=== PATIENT | male | born 1945 | race Caucasian/White ===

== ENCOUNTER 2017-12-05 11:45 | Outpatient (CLI) | payer MEDICARE, OTHER ==
[~2017-12-05] VITALS: Ht 172.7 cm; Wt 90.7 kg
[2017-12-05] MEDS ORDERED: LOVA40TA2 PO (12:00)
[2017-12-05] MEDS ORDERED: ASPI-586 PO (12:00)
[2017-12-05] MEDS ORDERED: ALLO300T2 PO (12:00)
[2017-12-05] MEDS ORDERED: LEVO112T55 PO (12:00)
[2017-12-05] MEDS ORDERED: HYDR25TA4 PO (12:00)
[2017-12-05] MEDS ORDERED: CARV6.252 PO (12:00)
== END 2017-12-05 12:04 ==
LOC: PREOP 11:45
PROVIDERS: ATTEND Specialist
DX: Z01.818 Encounter for other preprocedural examination (principal)

== ENCOUNTER 2017-12-06 09:16 | Day surgery (SDC) | payer MEDICARE, OTHER ==
[~2017-12-06] VITALS: Ht 172.7 cm; Wt 90.7 kg
[~2017-12-06 09:16] MED LIST: ALLO300T2 PO; ASPI-586 PO; CARV6.252 PO; HYDR25TA4 PO; LEVO112T55 PO; LOVA40TA2 PO
[2017-12-06 09:25] VITALS: BP 166/91
[2017-12-06] MEDS ORDERED: EPINEPHrine INJECTION 1 MG/ML AMP INJ ONE (09:30)
[2017-12-06] MEDS ORDERED: POVIDONE (BETADINE) OPHTH SOLN 5% 30 ML OP ONE (09:30)
[2017-12-06] MEDS ORDERED: VANCOMYCIN/BSS (COMPOUNDED) 10 MG/ML SYR OP ONE (09:30)
[2017-12-06] MEDS ORDERED: LIDOCAINE PF 1% 2 ML AMP IR PRN (09:30)
[2017-12-06] MEDS ORDERED: TIMOLOL MALEATE 0.5% 5 ML (TIMOPTIC) BTL OU PRN (09:30)
[2017-12-06] MEDS: TETRACAINE 0.5% OPHTH SOLN 4 ML BTL (SINGLE DOSE ONLY) OU PRN ×4 (09:34→09:43)
[2017-12-06] MEDS: CYCLOPENTOLATE 1% (CYCLOGYL) 2 ML DROPS OP SCH ×3 (09:37→09:43)
[2017-12-06] MEDS: PHENYLEPHRINE 10% OPHTH (NEO-SYN) 5 ML BTL OU SCH ×3 (09:37→09:43)
[2017-12-06] MEDS ORDERED: MIDAZOLAM 2 MG/2 ML (VERSED) VIAL ONE (09:56)
[2017-12-06 10:28] VITALS: BP 147/91
--- NOTE | 2017-12-06 12:10 | Anesthesia-General Post-Op ---
MAC Patient Condition Mental Status/LOC: Same as Preop Cardiovascular: Satisfactory Nausea/Vomiting: Absent Respiratory: Satisfactory Pain: Controlled Complications: Absent Post Op Complications Complications None Follow Up Care/Instructions Patient Instructions None needed. Anesthesiology Discharge Order Discharge Order Patient is doing well, no complaints, stable vital signs, no apparent adverse anesthesia problems. No complications reported per nursing. ERIN NAJERA CRNA Dec 06, 2017 12:10
--- NOTE | 2017-12-17 04:00 | OPERATIVE REPORT ---
DATE OF SERVICE: 12/06/2017 PREOPERATIVE DIAGNOSIS: Combined cataract, left eye. POSTOPERATIVE DIAGNOSIS: Combined cataract, left eye. PROCEDURE: Phacoemulsification with posterior chamber intraocular lens, left eye. ANESTHESIA: Topical with IV sedation. COMPLICATIONS: No complications. DESCRIPTION OF PROCEDURE: An informed consent was obtained with the patient placed on his chart. His left pupil was dilated and topical anesthetic was placed as well. He was taken to the operating room and placed in a supine position on the operating table. He was sedated by the anesthesia provider. He was prepped and draped in the usual sterile manner. Attention was directed to the patient's left eye. A wire lid speculum was placed. The operating microscope was moved into position. A paracentesis was made at the left hand position. Preservative-free lidocaine was injected into the anterior chamber followed by viscoelastic. A clear corneal incision was then made in the temporal position with a 2.75 mm keratome. A capsulorrhexis was then made. Hydrodissection was carried out with balanced salt saline. The nucleus was then removed by phacoemulsification. The cortex was aspirated. The posterior capsule was polished and the anterior chamber was refilled with viscoelastic. An Saitsh model [id number] 19.5 diopter lens was placed into the capsular bag. The residual viscoelastic was aspirated. The anterior chamber was inflated with balanced salt saline and 1 mg of vancomycin was injected. The wounds were checked and found to be watertight. The wire lid speculum and surgical drapes were removed. The patient tolerated the procedure well. Job ID: [id number] DocumentID: [id number] Dictated Date: 12/16/2017 17:59:37 Ornamental Iron Worker Helper Date: 12/17/2017 03:59:35 Dictated By: RANDELL DOBBINS MD
== END 2017-12-06 10:28 | disposition home or self-care (01) ==
LOC: SDC 09:16
PROVIDERS: ATTEND Specialist
DX: H25.812 Combined forms of age-related cataract, left eye (principal); I10 Essential (primary) hypertension; Z95.1 Presence of aortocoronary bypass graft; Z79.82 Long term (current) use of aspirin; Z79.899 Other long term (current) drug therapy

== ENCOUNTER 2018-07-15 15:03 | Inpatient (IN) | payer MEDICARE, OTHER ==
[2018-07-15] VITALS (8 sets, daily range): BP systolic 123–166; BP diastolic 79–98
[~2018-07-15] VITALS: Ht 175.3 cm; Wt 95.3 kg
--- OUTSIDE RECORDS SUMMARY | 2018-07-15 15:07 | XMS REPORT | Continuity of Care Document ---
Author Author [facility] Address Unknown Phone Unavailable Allergies There is no data. Medications There is no data. Problems There is no data. Procedures There is no data. Results There is no data. Encounters ACCT No. Visit Date/Time Discharge Status Pt. Type Provider Facility Loc./Unit Complaint [id number] 12/07/2008 13:04:00 12/07/2008 23:59:59 CLS Outpatient CESAR ANDERSON DDS
[2018-07-15 15:41] LABS: BASOPHILS % (AUTO) 0 % (0-10); EOSINOPHILS # (AUTO) 0.2 10^3/uL (0.0-0.3); EOSINOPHILS % (AUTO) 2 % (0-10); HEMATOCRIT 50 % (40-54); HEMOGLOBIN 15.8 G/DL (13.3-17.7); LYMPHOCYTES # (AUTO) 1.2 X 10^3 (1.0-4.0); LYMPHOCYTES % (AUTO) 14 % (12-44); MEAN CORPUSCULAR HEMOGLOBIN 27 PG (25-34); MEAN CORPUSCULAR HGB CONC 32 G/DL (32-36); MEAN CORPUSCULAR VOLUME 85 FL (80-99); MEAN PLATELET VOLUME 11.5 FL (7.4-10.4); MONOCYTES # (AUTO) 0.6 X 10^3 (0.0-1.0); MONOCYTES % (AUTO) 7 % (0-12); NEUTROPHILS # (AUTO) 6.1 X 10^3 (1.8-7.8); NEUTROPHILS % (AUTO) 76 % (42-75); PLATELET COUNT 196 10^3/uL (130-400); RED BLOOD COUNT 5.83 10^6/uL (4.35-5.85); RED CELL DISTRIBUTION WIDTH 16.6 % (10.0-14.5)
[2018-07-15 15:52] LABS: BILIRUBIN,TOTAL 0.7 MG/DL (0.1-1.0); CALCIUM 10.2 MG/DL (8.5-10.1); CREATININE SERUM 2.1 MG/DL (0.60-1.30); POTASSIUM 3.4 MMOL/L (3.6-5.0); TOTAL PROTEIN 7.4 GM/DL (6.4-8.2)
[2018-07-15 16:00] LABS: MYOGLOBIN SERUM 149.1 NG/ML (10.0-92.0)
--- NOTE | 2018-07-15 16:06 | ED Upper Extremity ---
General Chief Complaint: General Problems/Pain Stated Complaint: R ARM NUMBNESS Nursing Triage Note: pt presents to er with complaint of right arm numbness that started at 1330. pt states it has lessened at arrivall. only other complaint is heart burn thats been going on for a while Nursing Sepsis Screen: No Definite Risk Source: patient, spouse Exam Limitations: no limitations History of Present Illness Date Seen by Provider: Jul 15, 2018 Time Seen by Provider: 15:28 Initial Comments Patient presents to ER by private conveyance with chief complaint that he had about an hours worth of numbness in his right arm from shoulder down pins and needle sensation. He had full movement of his arm. He said he was sitting at his desk typing on the computer when it started happening. What concerned him is that for the past week and a half he's been having some heartburn and it's an intermittent occasional. He been using omeprazole but has not made a difference. He's also had a CABG done a couple years ago and so anytime he had a sensation like this or chest pain and has concerned him he might be having a heart attack. His numbness was not made worse with any exertion. It has gone away spontaneously to this point he has no numbness in the ER. He has not injured his neck recently nor does he have a history of neck pain. He does have some chronic low back pain. He is not having any slurred speech or facial asymmetry per his . No difficulty swallowing walking incontinence of bowel or bladder. He describes the acid reflux symptoms as burning in the middle of his chest lasting for about an hour or so intermittently over the last 10 days. Usually goes away spontaneously. Has not been lightened up by using omeprazole. Allergies and Home Medications Allergies Coded Allergies: No Known Drug Allergies (Unverified , 12/05/17) Home Medications Allopurinol 300 Mg Tablet, 300 MG PO DAILY, (Reported) Aspirin 81 Mg Tablet.dr, 81 MG PO BID, (Reported) Carvedilol 6.25 Mg Tablet, 6.25 MG PO BID, (Reported) Hydrochlorothiazide 25 Mg Tablet, 25 MG PO DAILY, (Reported) Levothyroxine Sodium 112 Mcg Tablet, 112 MCG PO DAILY, (Reported) Lovastatin 40 Mg Tablet, 80 MG PO DAILY, (Reported) TAKE 2 (40MG) TABS Patient Home Medication List Home Medication List Reviewed: Yes Review of Systems Constitutional: No chills, No diaphoresis, No fever, No malaise EENTM: No ear discharge, No ear pain Respiratory: No cough, No short of breath Cardiovascular: No chest pain, No edema Gastrointestinal: No abdominal pain, No constipation, No diarrhea Past Nejrcca-Chanhk-Gsqhdo Hx Patient Social History Alcohol Use: Denies Use Recreational Drug Use: No Smoking Status: Former Smoker Recent Foreign Travel: No Contact w/Someone Who Travel: No Recent Infectious Disease Expo: No Recent Hopitalizations: No Immunizations Up To Date Tetanus Booster (TDap): Unknown PED Vaccines UTD: Yes Seasonal Allergies Seasonal Allergies: No Past Medical History Surgeries: Yes (hernia, ) CABG, Orthopedic Respiratory: No Cardiac: Yes Coronary Artery Disease, Hypertension Neurological: No Genitourinary: No Gastrointestinal: No Musculoskeletal: No Endocrine: Yes Hypothyroidsim HEENT: No Cataract Cancer: No Psychosocial: No Integumentary: No Physical Exam Vital Signs Vital Signs - First Documented 07/15/18 15:04 Pulse 55 Resp 12 B/P (MAP) 176/95 (122) Pulse Ox 95 O2 Delivery Room Air Capillary Refill : Less Than 3 Seconds Height, Weight, BMI Height: 5'9.00" Weight: 200lbs. 0.0oz. 90.818471mh; BMI Method:Stated General Appearance: WD/WN, no apparent distress HEENT: PERRL/EOMI, normal ENT inspection, pharynx normal Neck: non-tender, full range of motion, supple, normal inspection Cardiovascular: normal peripheral pulses, regular rate, rhythm, no edema Respiratory: chest non-tender, lungs clear, normal breath sounds, no respiratory distress, no accessory muscle use Gastrointestinal: normal bowel sounds, non tender, soft Shoulder: normal inspection, non-tender, no evidence of injury, normal ROM Elbow/Forearm: normal inspection, non-tender, no evidence of injury, normal ROM , Right Neurologic/Tendon: normal sensation, normal motor functions, normal tendon functions, responds to pain, no evidence tendon injury Neurologic/Psychiatric: window assembler II-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 nml as tested, no motor/sensory deficits, alert, normal mood/affect, oriented x 3 Skin: normal color, warm/dry Progress/Results/Core Measures Results/Orders Lab Results Laboratory Tests Test 07/15/18 15:15 Range/Units White Blood Count 8.0 4.3-11.0 10^3/uL Red Blood Count 5.83 4.35-5.85 10^6/uL Hemoglobin 15.8 13.3-17.7 G/DL Hematocrit 50 40-54 % Mean Corpuscular Volume 85 80-99 FL Mean Corpuscular Hemoglobin 27 25-34 PG Mean Corpuscular Hemoglobin Concent 32 32-36 G/DL Red Cell Distribution Width 16.6 H 10.0-14.5 % Platelet Count 196 130-400 10^3/uL Mean Platelet Volume 11.5 H 7.4-10.4 FL Neutrophils (%) (Auto) 76 H 42-75 % Lymphocytes (%) (Auto) 14 12-44 % Monocytes (%) (Auto) 7 0-12 % Eosinophils (%) (Auto) 2 0-10 % Basophils (%) (Auto) 0 0-10 % Neutrophils # (Auto) 6.1 1.8-7.8 X 10^3 Lymphocytes # (Auto) 1.2 1.0-4.0 X 10^3 Monocytes # (Auto) 0.6 0.0-1.0 X 10^3 Eosinophils # (Auto) 0.2 0.0-0.3 10^3/uL Basophils # (Auto) 0.0 0.0-0.1 10^3/uL Sodium Level 141 135-145 MMOL/L Potassium Level 3.4 L 3.6-5.0 MMOL/L Chloride Level 102 98-107 MMOL/L Carbon Dioxide Level 28 21-32 MMOL/L Anion Gap 11 5-14 MMOL/L Blood Urea Nitrogen 33 H 7-18 MG/DL Creatinine 2.10 H 0.60-1.30 MG/DL Estimat Glomerular Filtration Rate 31 BUN/Creatinine Ratio 16 Glucose Level 161 H 70-105 MG/DL Calcium Level 10.2 H 8.5-10.1 MG/DL Corrected Calcium 10.2 H 8.5-10.1 MG/DL Total Bilirubin 0.7 0.1-1.0 MG/DL Aspartate Amino Transf (AST/SGOT) 41 H 5-34 U/L Alanine Aminotransferase (ALT/SGPT) 38 0-55 U/L Alkaline Phosphatase 118 40-136 U/L Myoglobin 149.1 H 10.0-92.0 NG/ML Troponin I 1.962 *H <0.028 NG/ML C-Reactive Protein High Sensitivity 0.64 H 0.00-0.50 MG/DL Total Protein 7.4 6.4-8.2 GM/DL Albumin 4.0 3.2-4.5 GM/DL My Orders Orders - FAZAL LARA Ct Head/Cervical Spine Wo (07/15/18 15:34) Cbc With Automated Diff (07/15/18 15:34) Comprehensive Metabolic Panel (07/15/18 15:34) Hs C Reactive Protein (07/15/18 15:34) Troponin I (07/15/18 15:34) Myoglobin Serum (07/15/18 15:34) Chest Pa/Lat (2 View) (07/15/18 15:34) Shoulder, Right, 3 Views (07/15/18 15:34) Continuous Ekg Monitoring (07/15/18 15:42) Ekg Tracing (07/15/18 15:42) Aspirin Chewable Tablet (Baby Aspirin Ch (07/15/18 16:21) Saline Lock/Iv-Start (07/15/18 16:30) Ns Iv 1000 Ml (Sodium Chloride 0.9%) (07/15/18 16:30) Ua Culture If Indicated (07/15/18 16:30) Ns Iv 1000 Ml (Sodium Chloride 0.9%) (07/15/18 16:29) Enoxaparin Injection (Lovenox Injection) (07/15/18 17:00) Vital Signs/I&O 07/15/18 15:04 Pulse 55 Resp 12 B/P (MAP) 176/95 (122) Pulse Ox 95 O2 Delivery Room Air Blood Pressure Mean: 122 Progress Progress Note : Time: 16:16 Progress Note Brain changes. We will get an EKG and troponin looking for cardiac since she's been having these chest burning sensation for the past 10 days. Initial ECG Impression Date: Jul 15, 2018 Initial ECG Impression Time: 16:10 Initial ECG Rate: 55 Initial ECG Rhythm: Normal Sinus Initial ECG Intervals: Normal Initial ECG Impression: Normal, Nonspecific Changes Comment No ST-T wave elevation depression Diagnostic Imaging Diagonstic Imaging: Xray Plain Films/CT/US/NM/MRI: chest Comments [facility] [place], [place] NAME: ALAN CHURCH [facility] REC#: [id number] PT STATUS: REG ER : 1945 PHYSICIAN: FAZAL LARA MD ADMIT DATE: 07/15/18/ER Draft Date of Exam:07/15/18 CHEST PA/LAT (2 VIEW) INDICATION: Right arm numbness starting at 1330 hours. Also complains of heartburn that has been "going on for a while". PA and lateral chest obtained at 04:17 p.m. Heart is normal in size. Mediastinal silhouette is unremarkable. The patient has had previous sternotomy. The lungs show no focal infiltrate, pneumothorax, or pleural fluid. There is an old right clavicle fracture. IMPRESSION: Postoperative changes. No focal infiltrate, pneumothorax, or pleural fluid. Old right clavicle fracture noted. Dictated on workstation # [id number] Dict: 07/15/18 1603 Trans: 07/15/18 1614 [facility] [id number] Interpreted by: ADRY LIPSCOMB MD Electronically signed by: Reviewed: Reviewed by Vt Diagonstic Imaging: Xray Plain Films/CT/US/NM/MRI: other (shoulder) Comments [facility] [place] NAME: ALAN CHURCH [facility] REC#: [id number] PT STATUS: REG ER : 1945 PHYSICIAN: FAZAL LARA MD ADMIT DATE: 07/15/18/ER Draft Date of Exam:07/15/18 SHOULDER, RIGHT, 3 VIEWS EXAMINATION: Right shoulder. INDICATION: Shoulder pain. Three views were obtained. There are no prior studies available for comparison. FINDINGS: There is deformity of the distal third of the clavicle. Most likely, this is a sequela of prior trauma. There is no fracture or acute bony abnormality appreciated. There is mild degenerative disease of the glenohumeral joint and moderate degenerative disease of the acromioclavicular joint. The soft tissues are unremarkable. IMPRESSION: There is evidence of prior trauma to the right clavicle, but there is no sign of an acute bony abnormality. Dictated on workstation # [id number] Dict: 07/15/18 1600 Trans: 07/15/18 1604 [id number] Interpreted by: ELADIA RODRIGUEZ MD Electronically signed by: Reviewed: Reviewed by Me Diagonstic Imaging: CT (noncontrast) Plain Films/CT/US/NM/MRI: c-spine, head Comments NAME: ALAN CHURCH [facility] REC#: [id number] PT STATUS: REG ER : 1945 PHYSICIAN: FAZAL LARA MD ADMIT DATE: 07/15/18/ER Draft Date of Exam:07/15/18 CT HEAD/CERVICAL SPINE WO PROCEDURE: CT head and CT cervical spine without contrast. TECHNIQUE: Multiple contiguous axial images were obtained through the brain and cervical spine without the use of intravenous contrast. Sagittal and coronal reformations through the cervical spine were then performed. INDICATION: Right arm numbness. COMPARISON: No prior studies available for comparison. CT head: FINDINGS: Ventricles are normal in size. There is an area of low density in the right frontal lobe. This has the appearance of an area of encephalomalacia, perhaps from prior infarct. Underlying lesion cannot be entirely excluded and MRI would be useful if not already performed. No sulcal effacement or midline shift is seen. No acute intra-axial or extra-axial hemorrhage is seen. Cisterns are patent. Visualized paranasal sinuses are clear. IMPRESSION: 1. No acute intracranial process detected. There is a probable region of encephalomalacia in the right frontal lobe, perhaps from prior infarct. Edema from underlying lesion cannot be entirely excluded and an MRI would be useful for further evaluation if not already performed at another facility. CT cervical spine: FINDINGS: Curvature and alignment is within normal limits. There is degenerative disc disease at the C5-C6 and C6-C7 levels with disc space narrowing and marginal spurring. No fractures are seen. Prevertebral tissues are within normal limits. Odontoid is intact. IMPRESSION: Cervical spondylosis. No acute bony abnormality is detected. Dictated on workstation # [id number] Dict: 07/15/18 1612 Trans: 07/15/18 1618 [id number] Interpreted by: YANIRA HUYNH MD Electronically signed by: Reviewed: Reviewed by Me Departure Communication (Admissions) Time/Spoke to Admitting Phy: 16:50 Discussed case lab imaging findings and she agrees to that the patient in the hospital admitted for a NEIL/N STEMI. She would likes to clarify anticoagulation. Time/Spoke to Consulting Phy: 16:28 Discussed case lab imaging findings he recommends we add Norvasc aspirin 81 mg now and daily and his home meds and then treat the NEIL and he will follow along. Lovenox 90 mg every 24 hours. norvasc now and daily Impression Primary Impression: NSTEMI (non-ST elevated myocardial infarction) Additional Impression: NEIL (acute kidney injury) Disposition: 01 HOME, SELF-CARE Condition: Stable Admissions Decision to Admit Reason: Admit from ER (General) Decision to Admit/Date: Jul 15, 2018 Time/Decision to Admit Time: 16:54 Departure-Patient Inst. Referrals: KATHIA NAIR MD (PCP) Primary Care Physician Copy Copies To 1: KATHIA NAIR MD, TITUS J Jul 15, 2018 16:06
--- NOTE | 2018-07-15 16:14 | Diagnostic Imaging Report ---
INDICATION: Right arm numbness starting at 1330 hours. Also complains of heartburn that has been "going on for a while". PA and lateral chest obtained at 04:17 p.m. Heart is normal in size. Mediastinal silhouette is unremarkable. The patient has had previous sternotomy. The lungs show no focal infiltrate, pneumothorax, or pleural fluid. There is an old right clavicle fracture. IMPRESSION: Postoperative changes. No focal infiltrate, pneumothorax, or pleural fluid. Old right clavicle fracture noted. Dictated by: Dictated on workstation # [id number]
--- NOTE | 2018-07-15 16:18 | Diagnostic Imaging Report ---
PROCEDURE: CT head and CT cervical spine without contrast. TECHNIQUE: Multiple contiguous axial images were obtained through the brain and cervical spine without the use of intravenous contrast. Sagittal and coronal reformations through the cervical spine were then performed. INDICATION: Right arm numbness. COMPARISON: No prior studies available for comparison. CT head: FINDINGS: Ventricles are normal in size. There is an area of low density in the right frontal lobe. This has the appearance of an area of encephalomalacia, perhaps from prior infarct. Underlying lesion cannot be entirely excluded and MRI would be useful if not already performed. No sulcal effacement or midline shift is seen. No acute intra-axial or extra-axial hemorrhage is seen. Cisterns are patent. Visualized paranasal sinuses are clear. IMPRESSION: 1. No acute intracranial process detected. There is a probable region of encephalomalacia in the right frontal lobe, perhaps from prior infarct. Edema from underlying lesion cannot be entirely excluded and an MRI would be useful for further evaluation if not already performed at another facility. CT cervical spine: FINDINGS: Curvature and alignment is within normal limits. There is degenerative disc disease at the C5-C6 and C6-C7 levels with disc space narrowing and marginal spurring. No fractures are seen. Prevertebral tissues are within normal limits. Odontoid is intact. IMPRESSION: Cervical spondylosis. No acute bony abnormality is detected. Dictated by: Dictated on workstation # [id number]
[2018-07-15] MEDS ORDERED: ASPIRIN 81 MG CHEW (CHILDREN'S ASA) ONE (16:21)
[2018-07-15] MEDS ORDERED: NS IV 1000 ML 1,000 ML ONE (16:29)
[2018-07-15] MEDS ORDERED: NS IV 1000 ML 1,000 ML IV SCH (16:30)
[2018-07-15] MEDS ORDERED: ENOXAPARIN 100 MG/1 ML (LOVENOX) SYR SC ONE (17:00)
[2018-07-15] MEDS ORDERED: amLODIPine 10 MG (NORVASC) TAB PO ONE (17:15)
--- NOTE | 2018-07-15 17:18 | History & Physical-Hospitalist ---
History of Present Illness HPI/Chief Complaint Pt is a 73yoCM with a PMH of CAD s/p CABG x5 who presented to the ER due to right arm tingling. He states his symptoms started in the last few weeks with chest burning. He attempted taking a PPI without any improvement. He denies any alleviating or aggravating factors to the chest burning. Today around 1300 he developed right arm tingling and numbness with no pain down his right arm starting at his shoulder. He states it is resolved now. He presented to the ER for evaluation and was found to have an NSTEMI with a troponin elevated at 1.9. 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 He denies any SOB, nausea, vomiting, jaw pain. Source: patient Date Seen 07/15/18 Time Seen by a Provider: 17:15 Attending Physician Shama Dill John M MD Referring Physician Date of Admission Home Medications & Allergies Home Medications Reviewed patient Home Medication Reconciliation performed by pharmacy medication reconciliations instrumentation and controls technician and/or nursing. Patients Allergies have been reviewed. Allergies Allergies Coded Allergies No Known Drug Allergies (Unverified12/05/17) Past Vzylehy-Itvxna-Hhupcc Hx Past Med/Social Hx: Reviewed Nursing Past Med/Soc Hx Patient Social History Alcohol Use: Denies Use Recreational Drug Use: No Smoking Status: Former Smoker Recent Foreign Travel: No Contact w/other who traveled: No Recent Hopitalizations: No Recent Infectious Disease Expo: No Immunizations Up To Date Tetanus Booster (TDap): Unknown Pediatric: Yes Seasonal Allergies Seasonal Allergies: No Past Medical History Surgeries: Abdominal (hernia), CABG (5 vessel), Orthopedic Cardiac: Coronary Artery Disease, Hypertension Endocrine: Hypothyroidsim HEENT: Cataract Family History Reviewed Nursing Family Hx Heart Disease, Cancer (breast- mother) Review of Systems Constitutional: No chills, No fever EENTM: No blurred vision, No double vision, No nose congestion, No throat pain Respiratory: No cough, No dyspnea on exertion, No short of breath Cardiovascular: see HPI Gastrointestinal: No abdominal pain, No constipation, No diarrhea, No nausea, No vomiting Genitourinary: No dysuria, No frequency Musculoskeletal: No joint pain, No muscle pain Skin: No lesions, No rash Psychiatric/Neurological: Tingling (per HPI) Physical Exam Physical Exam Vital Signs Vital Signs - First Documented 07/15/18 07/15/18 15:04 20:00 Temp 97.5 Pulse 55 Resp 12 B/P (MAP) 176/95 (122) Pulse Ox 95 O2 Delivery Room Air Capillary Refill : Less Than 3 Seconds Height, Weight, BMI Height: 5'9.00" Weight: 200lbs. 0.0oz. 90.187484oa; BMI Method:Stated General Appearance: No Apparent Distress, WD/WN HEENT: PERRL/EOMI, Moist Mucous Membranes; No Scleral Icterus (L), No Scleral Icterus (R) Neck: Non Tender, Supple Respiratory: Lungs Clear, No Respiratory Distress Cardiovascular: Regular Rate, Rhythm, No JVD, No Murmur Gastrointestinal: Normal Bowel Sounds, Non Tender, Soft Extremity: Normal Capillary Refill, No Calf Tenderness Neurologic/Psychiatric: Alert, Oriented x3, Normal Mood/Affect Skin: Normal Color, Warm/Dry Results Results/Procedures Labs Laboratory Tests 07/15/18 15:15 07/16/18 03:50 Patient resulted labs reviewed. Imaging: Reviewed Imaging Report Assessment/Plan Admission Diagnosis NSTEMI Admission Status: Inpatient Order (span 2 midnights) Reason for Inpatient Admission: NSTEMI with history of CAD and CABG Diagnosis/Problems Diagnosis/Problems (1) NSTEMI (non-ST elevated myocardial infarction) Status: Acute Assessment & Plan: Troponin elevated at 1.9 Cardiology consulted, appreciate recs- Lovenox ordered Continue home BB and ASA Echo ordered (2) NEIL (acute kidney injury) Status: Acute Assessment & Plan: Patient unsure of history of kidney disease IVF Trend (3) Essential (primary) hypertension Status: Acute Assessment & Plan: BP elevated on arrival Amlodipine ordered in the ER trend SHAMA DILL MD Jul 15, 2018 17:18
--- OUTSIDE RECORDS SUMMARY | 2018-07-15 17:23 | XMS REPORT | Continuity of Care Document ---
Author Author [facility] Address Unknown Phone Unavailable Allergies There is no data. Medications There is no data. Problems There is no data. Procedures There is no data. Results There is no data. Encounters ACCT No. Visit Date/Time Discharge Status Pt. Type Provider Facility Loc./Unit Complaint [id number] 12/07/2008 13:04:00 12/07/2008 23:59:59 CLS Outpatient CESAR ANDERSON DDS
[2018-07-15 17:47] LABS: BILIRUBIN,URINE NEGATIVE (NEGATIVE); CLARITY,URINE VERY CLOUDY; COLOR,URINE YELLOW; GLUCOSE, URINE (UA) NEGATIVE (NEGATIVE); KETONES,URINE NEGATIVE (NEGATIVE); LEUKOCYTE ESTERASE ,URINE 2+ (NEGATIVE); NITRITE,URINE POSITIVE (NEGATIVE); PH,URINE 6 (5-9); PROTEIN,URINE 2+ (NEGATIVE); UROBILINOGEN,URINE NORMAL (NORMAL)
[2018-07-15 18:04] LABS: BACTERIA,URINE LARGE /HPF; RBC,URINE 0-2 /HPF; URINE OTHER FEW SPERM /HPF; WBC,URINE 25-50 /HPF
[2018-07-15] MEDS ORDERED: HYDROcodone/APAP 5 MG/325 MG (LORTAB) TAB PO PRN (19:00)
[2018-07-15] MEDS ORDERED: ONDANSETRON 4 MG/2 ML (SDV) Z0FRAN IV PRN (19:00)
[2018-07-15] MEDS ORDERED: ACETAMINOPHEN 500 MG TAB (TYLENOL) PO PRN (19:00)
[2018-07-15] MEDS ORDERED: morphine INJ 4 MG/ML 1 ML (VIAL/SYRINGE) IV PRN (19:00)
[2018-07-15] MEDS ORDERED: NITROGLYCERIN 0.4 MG SL TABS BTL 25'S SL PRN (19:00)
[2018-07-15] MEDS ORDERED: CATHETER FLUSH 10 ML SYR IV PRN (19:00)
[2018-07-15] MEDS ORDERED: ANTACID SUSP 30 ML UDC (MYLANTA) PO PRN (19:00)
[2018-07-15] MEDS: ATORVASTATIN 40 MG (LIPITOR) TABLET PO SCH (20:09)
[2018-07-15] MEDS: CARVEDILOL 6.25 MG (COREG) TAB PO SCH (20:09)
[2018-07-15] MEDS: 1/2 NS W/KCL 20 MEQ/L 1,000 ML IV SCH (20:09)
[2018-07-16] VITALS (7 sets, daily range): BP systolic 106–128; BP diastolic 72–84
[2018-07-16] MEDS: 1/2 NS W/KCL 20 MEQ/L 1,000 ML IV SCH ×6 (01:21→20:32)
[2018-07-16 04:16] LABS: BASOPHILS % (AUTO) 0 % (0-10); EOSINOPHILS # (AUTO) 0.3 10^3/uL (0.0-0.3); EOSINOPHILS % (AUTO) 3 % (0-10); HEMATOCRIT 44 % (40-54); HEMOGLOBIN 14.4 G/DL (13.3-17.7); LYMPHOCYTES # (AUTO) 2.2 X 10^3 (1.0-4.0); LYMPHOCYTES % (AUTO) 25 % (12-44); MEAN CORPUSCULAR HEMOGLOBIN 28 PG (25-34); MEAN CORPUSCULAR HGB CONC 32 G/DL (32-36); MEAN CORPUSCULAR VOLUME 85 FL (80-99); MEAN PLATELET VOLUME 11.8 FL (7.4-10.4); MONOCYTES # (AUTO) 0.8 X 10^3 (0.0-1.0); MONOCYTES % (AUTO) 9 % (0-12); NEUTROPHILS # (AUTO) 5.4 X 10^3 (1.8-7.8); NEUTROPHILS % (AUTO) 62 % (42-75); PLATELET COUNT 196 10^3/uL (130-400); RED BLOOD COUNT 5.24 10^6/uL (4.35-5.85); RED CELL DISTRIBUTION WIDTH 16.4 % (10.0-14.5); WHITE BLOOD COUNT 8.7 10^3/uL (4.3-11.0)
[2018-07-16 04:41] LABS: CREATININE SERUM 1.64 MG/DL (0.60-1.30); MAGNESIUM 1.7 MG/DL (1.8-2.4); POTASSIUM 3.6 MMOL/L (3.6-5.0)
[2018-07-16] MEDS: LEVOTHYROXINE 112 MCG (LEVOTHROID) TAB PO SCH (06:20)
--- NOTE | 2018-07-16 08:39 | Consultation-Cardiology ---
HPI-Cardiology Cardiology Consultation: Date of Consultation 07/16/18 Time Seen by a Provider: 08:15 Date of Admission 07-16-18 Attending Physician Rakel Dill MD Admitting Physician Nicko Smith MD Consulting Physician Juan Alaniz MD HPI: Chief Complaint: NSTEMI Mr. Church is a 73 year old male admitted to ICU 2 from the ED. He reports yesterday he began to have right arm numbness and tingling that persisted throughout the evening prompting him to come to the ED. He reports he has been having a lot of heartburn over the last month which has not been relieved with antacids or PPI's. He denies any CP or right arm discomfort at this time. He denies any c/o dyspnea, palpitations, syncope, near syncope or LE edema. Review of Systems-Cardiology Review of Systems Constitutional: No chills, No fever, No malaise Eyes: No vision change Ears/Nose/Throat: No epistaxis, No recent hearing loss Respiratory: As described under HPI Cardiovascular: As described under HPI Gastrointestinal: No constipation, No diarrhea, No nausea, No vomiting; other ( heartburn) Genitourinary: No dysuria, No hematuria Musculoskeletal: no symptoms reported Skin: No rash, No ulcerations Psychiatric/Neurological: No seizure, No focal weakness Hematologic: No bleeding abnormalities HXI-Emnhur-Fhaglo Hx Patient Social History Alcohol Use: Denies Use Recreational Drug Use: No Smoking Status: Former Smoker Recent Foreign Travel: No Recent Infectious Disease Expo: No Hospitalization with Isolation: Denies Immunizations Up To Date Tetanus Booster (TDap): Unknown Date of Pneumonia Vaccine: Aug 29, 2017 Date of Influenza Vaccine: Mar 01, 2018 Past Medical History PMH As described under Assessment. Allergies and Home Medications Allergies Coded Allergies: No Known Drug Allergies (Unverified , 12/05/17) Home Medications Allopurinol 300 Mg Tablet, 300 MG PO DAILY, (Reported) Aspirin 81 Mg Tablet.dr, 81 MG PO BID, (Reported) Carvedilol 6.25 Mg Tablet, 6.25 MG PO BID, (Reported) Hydrochlorothiazide 25 Mg Tablet, 25 MG PO DAILY, (Reported) Levothyroxine Sodium 112 Mcg Tablet, 112 MCG PO DAILY, (Reported) Lovastatin 40 Mg Tablet, 80 MG PO HS, (Reported) TAKE 2 (40MG) TABS Multivitamin 1 Each Tablet, 1 TAB PO DAILY, (Reported) [place] 3 Polyunsat Fatty Acids 1,000 Mg Cap, 1,000 MG PO BID, (Reported) Physical Exam-Cardiology Physical Exam Vital Signs/I&O 07/16/18 07/16/18 07/17/18 07/17/18 21:00 21:47 00:00 00:00 Temp 98.2 Pulse 63 Resp 18 B/P (MAP) 122/76 (91) Pulse Ox 93 93 94 O2 Delivery Room Air Room Air Room Air 07/17/18 07/17/18 07/17/18 07/17/18 00:00 01:00 03:57 04:00 Temp 98.5 Pulse 57 60 Resp 16 B/P (MAP) 127/76 (93) Pulse Ox 93 96 O2 Delivery Room Air Room Air 07/17/18 04:00 Pulse 61 Resp 10 B/P (MAP) 129/81 (97) Pulse Ox 96 O2 Delivery Room Air 07/17/18 00:00 Intake Total 1100 ml Output Total 200 ml Balance 900 ml Capillary Refill : Less Than 3 Seconds Constitutional: AAO x 3, well-developed, well-nourished HEENT: PERRL, hearing is well preserved Neck: No carotid bruit; carotid pulses are 2 + bilaterally Respiratory: No accessory muscle use, No respiratory distress; chest expansion is symmetric, chest is bilaterally symmetric, lungs clear to auscultation Cardiovascular: regular rate-rhythm; No JVD; S1 and S2 Gastrointestinal: No tender; soft, round, audible bowel sounds Rectal: deferred Extremities: no lower extremity edema bilateral Neurologic/Psychiatric: grossly intact, power is 5/5 both on sides Skin: No rash, No ulcerations Data Review Labs Laboratory Tests 07/17/18 03:30: White Blood Count 8.1, Red Blood Count 5.15, Hemoglobin 14.2, Hematocrit 43, Mean Corpuscular Volume 84, Mean Corpuscular Hemoglobin 28, Mean Corpuscular Hemoglobin Concent 33, Red Cell Distribution Width 16.4H, Platelet Count 179, Mean Platelet Volume 11.8H, Neutrophils (%) (Auto) 69, Lymphocytes (%) (Auto) 18 , Monocytes (%) (Auto) 10, Eosinophils (%) (Auto) 3, Basophils (%) (Auto) 0, Neutrophils # (Auto) 5.6, Lymphocytes # (Auto) 1.4, Monocytes # (Auto) 0.8, Eosinophils # (Auto) 0.2, Basophils # (Auto) 0.0, Sodium Level 141, Potassium Level 3.6, Chloride Level 109H, Carbon Dioxide Level 23, Anion Gap 9, Blood Urea Nitrogen 24H, Creatinine 1.78H, Estimat Glomerular Filtration Rate 38, BUN/ Creatinine Ratio 13, Glucose Level 79, Calcium Level 9.0, Magnesium Level 1.5L Microbiology 07/15/18 Urine Culture - Preliminary, Resulted Culture In Progress Radiology NAME: ALAN CHURCH [facility] REC#: [id number] PT STATUS: REG ER : 1945 PHYSICIAN: FAZAL LARA MD ADMIT DATE: 07/15/18/ER Signed Date of Exam: 07/15/18 CHEST PA/LAT (2 VIEW) INDICATION: Right arm numbness starting at 1330 hours. Also complains of heartburn that has been "going on for a while". PA and lateral chest obtained at 04:17 p.m. Heart is normal in size. Mediastinal silhouette is unremarkable. The patient has had previous sternotomy. The lungs show no focal infiltrate, pneumothorax, or pleural fluid. There is an old right clavicle fracture. IMPRESSION: Postoperative changes. No focal infiltrate, pneumothorax, or pleural fluid. Old right clavicle fracture noted. Dictated by: Dictated on workstation # [id number] Dict: 07/15/18 1603 Trans: 07/15/18 162 Interpreted by: ADRY LIPSCOMB MD Electronically signed by: ADRY LIPSCOMB MD 07/15/18 1629 NAME: ALAN CHURCH [facility] REC#: [id number] PT STATUS: ADM IN : 1945 PHYSICIAN: FAZAL LARA MD ADMIT DATE: 07/15/18/ICU Signed Date of Exam: 07/15/18 CT HEAD/CERVICAL SPINE WO PROCEDURE: CT head and CT cervical spine without contrast. TECHNIQUE: Multiple contiguous axial images were obtained through the brain and cervical spine without the use of intravenous contrast. Sagittal and coronal reformations through the cervical spine were then performed. INDICATION: Right arm numbness. COMPARISON: No prior studies available for comparison. CT head: FINDINGS: Ventricles are normal in size. There is an area of low density in the right frontal lobe. This has the appearance of an area of encephalomalacia, perhaps from prior infarct. Underlying lesion cannot be entirely excluded and MRI would be useful if not already performed. No sulcal effacement or midline shift is seen. No acute intra-axial or extra-axial hemorrhage is seen. Cisterns are patent. Visualized paranasal sinuses are clear. IMPRESSION: 1. No acute intracranial process detected. There is a probable region of encephalomalacia in the right frontal lobe, perhaps from prior infarct. Edema from underlying lesion cannot be entirely excluded and an MRI would be useful for further evaluation if not already performed at another facility. CT cervical spine: FINDINGS: Curvature and alignment is within normal limits. There is degenerative disc disease at the C5-C6 and C6-C7 levels with disc space narrowing and marginal spurring. No fractures are seen. Prevertebral tissues are within normal limits. Odontoid is intact. IMPRESSION: Cervical spondylosis. No acute bony abnormality is detected. Dictated by: Dictated on workstation # [id number] Dict: 07/15/18 1612 Trans: 07/15/181903 Interpreted by: YANIRA HUYNH MD Electronically signed by: YANIRA HUYNH MD 07/15/18 1904 A/P-Cardiology Assessment/Admission Diagnosis NSTEMI H/O CABG x 5 vessel in [address] Engle at [facility] in [place], [place] HLD - statin tx HTN Reports h/o CKD - acute on chronic renal insufficiency - likely worsened d/t chronic diuretic use Hypothyroidism - replacement tx BPH - h/o TURP H/O tobacco use - quit 41 years ago Clinical Quality Measures DVT/VTE Risk/Contraindication: Risk Factor Score Per Nursin RFS Level Per Nursing on Admit: 2=Moderate KAYLA DASILVA Jul 16, 2018 08:39
[2018-07-16] MEDS: CARVEDILOL 6.25 MG (COREG) TAB PO SCH ×2 (08:40→20:34)
[2018-07-16] MEDS: amLODIPine 10 MG (NORVASC) TAB PO SCH (08:40)
[2018-07-16] MEDS ORDERED: ASPIRIN E.C. 81 MG (ECOTRIN) TAB PO SCH (09:00)
[2018-07-16] MEDS ORDERED: MAGNESIUM 1 GM/100 ML IVPB 100 ML IV ONE ×2 (09:15→12:25)
[2018-07-16] MEDS ORDERED: ENOXAPARIN 100 MG/1 ML (LOVENOX) SYR SC SCH ×2 (09:27→17:00)
--- NOTE | 2018-07-16 09:28 | NUR ---
RENAL DOSED LOVENOX BASED ON IMPROVED RENAL FXN. CHANGED BACK TO 90MG SQ BID, NEXT DOSE NOW SINCE LAST DOSE WAS GIVEN AT 1700 ON 07/15/17
--- NOTE | 2018-07-16 09:34 | Consultation-Cardiology ---
HPI-Cardiology Cardiology Consultation: Date of Consultation 07/16/18 Time Seen by a Provider: 09:10 Date of Admission Attending Physician Rakel Dill MD Admitting Physician Nicko Smith MD Consulting Physician BELLA SMITH MD, MA, FACP, FACC, FSCAI, CCDS HPI: Chief Complaint: Reason for consultation: Elevated troponin Mr. Castro is a 73 year old male admitted to ICU 2 from the ED. He reports yesterday he began to have right arm numbness and tingling that persisted throughout the evening prompting him to come to the ED. He reports he has been having a lot of heartburn over the last month which has not been relieved with antacids or PPI's. He denies any CP or right arm discomfort at this time. He denies any c/o dyspnea, palpitations, syncope, near syncope or LE edema. Review of Systems-Cardiology Review of Systems Constitutional: No chills, No fever, No malaise Eyes: No vision change Ears/Nose/Throat: No epistaxis, No recent hearing loss Respiratory: As described under HPI Cardiovascular: As described under HPI Gastrointestinal: No constipation, No diarrhea, No nausea, No vomiting; other ( heartburn) Genitourinary: No dysuria, No hematuria Musculoskeletal: no symptoms reported Skin: No rash, No ulcerations Psychiatric/Neurological: No seizure, No focal weakness Hematologic: No bleeding abnormalities XLC-Iyerro-Mxaawc Hx Patient Social History Alcohol Use: Denies Use Recreational Drug Use: No Smoking Status: Former Smoker Recent Foreign Travel: No Recent Infectious Disease Expo: No Hospitalization with Isolation: Denies Immunizations Up To Date Tetanus Booster (TDap): Unknown Date of Pneumonia Vaccine: Aug 29, 2017 Date of Influenza Vaccine: Mar 01, 2018 Past Medical History PMH As described under Assessment. Allergies and Home Medications Allergies Coded Allergies: No Known Drug Allergies (Unverified , 12/05/17) Home Medications Allopurinol 300 Mg Tablet, 300 MG PO DAILY, (Reported) Aspirin 81 Mg Tablet.dr, 81 MG PO BID, (Reported) Carvedilol 6.25 Mg Tablet, 6.25 MG PO BID, (Reported) Hydrochlorothiazide 25 Mg Tablet, 25 MG PO DAILY, (Reported) Levothyroxine Sodium 112 Mcg Tablet, 112 MCG PO DAILY, (Reported) Lovastatin 40 Mg Tablet, 80 MG PO DAILY, (Reported) TAKE 2 (40MG) TABS Patient Home Medication List Home Medication List Reviewed: Yes Physical Exam-Cardiology Physical Exam Vital Signs/I&O 07/15/18 07/15/18 07/16/18 07/16/18 22:00 23:00 00:00 00:00 Temp 97.5 Pulse 52 52 53 Resp 11 15 11 B/P (MAP) 131/83 (99) 129/98 (108) 120/72 (88) Pulse Ox 95 94 95 O2 Delivery Room Air Room Air Room Air 07/16/18 07/16/18 07/16/18 07/16/18 00:00 01:00 01:00 02:00 Pulse 54 49 53 Resp 11 13 B/P (MAP) 126/76 (93) 117/73 (88) Pulse Ox 95 95 95 O2 Delivery Room Air Room Air Room Air 07/16/18 07/16/18 07/16/18 07/16/18 03:00 04:00 04:00 08:00 Temp 97.5 Pulse 54 Resp 18 B/P (MAP) 122/72 (89) Pulse Ox 92 95 95 O2 Delivery Room Air Room Air Room Air 07/16/18 00:00 Intake Total 1210 ml Output Total 325 ml Balance 885 ml Capillary Refill : Less Than 3 Seconds Constitutional: AAO x 3, well-developed, well-nourished HEENT: PERRL, hearing is well preserved Neck: No carotid bruit; carotid pulses are 2 + bilaterally Respiratory: No accessory muscle use, No respiratory distress; chest expansion is symmetric, chest is bilaterally symmetric, lungs clear to auscultation Cardiovascular: regular rate-rhythm; No JVD; S1 and S2 Gastrointestinal: No tender; soft, round, audible bowel sounds Rectal: deferred Extremities: no lower extremity edema bilateral Neurologic/Psychiatric: grossly intact, power is 5/5 both on sides Skin: No rash, No ulcerations Data Review Labs Laboratory Tests 07/15/18 15:15: White Blood Count 8.0, Red Blood Count 5.83, Hemoglobin 15.8, Hematocrit 50, Mean Corpuscular Volume 85, Mean Corpuscular Hemoglobin 27, Mean Corpuscular Hemoglobin Concent 32, Red Cell Distribution Width 16.6H, Platelet Count 196, Mean Platelet Volume 11.5H, Neutrophils (%) (Auto) 76H, Lymphocytes (%) (Auto) 14, Monocytes (%) (Auto) 7, Eosinophils (%) (Auto) 2, Basophils (%) (Auto) 0, Neutrophils # (Auto) 6.1, Lymphocytes # (Auto) 1.2, Monocytes # (Auto) 0.6, Eosinophils # (Auto) 0.2, Basophils # (Auto) 0.0, Sodium Level 141, Potassium Level 3.4L, Chloride Level 102, Carbon Dioxide Level 28, Anion Gap 11, Blood Urea Nitrogen 33H, Creatinine 2.10H, Estimat Glomerular Filtration Rate 31, BUN/ Creatinine Ratio 16, Glucose Level 161H, Calcium Level 10.2H, Corrected Calcium 10.2H, Total Bilirubin 0.7, Aspartate Amino Transf (AST/SGOT) 41H, Alanine Aminotransferase (ALT/SGPT) 38, Alkaline Phosphatase 118, Myoglobin 149.1H, Troponin I 1.962*H, C-Reactive Protein High Sensitivity 0.64H, Total Protein 7.4 , Albumin 4.0 07/15/18 17:37: Urine Color YELLOW, Urine Clarity VERY CLOUDYH, Urine pH 6, Urine Specific [place] 1.015L, Urine Protein 2+H, Urine Glucose (UA) NEGATIVE, Urine Ketones NEGATIVE, Urine Nitrite POSITIVEH, Urine Bilirubin NEGATIVE, Urine Urobilinogen NORMAL, Urine Leukocyte Esterase 2+H, Urine RBC (Auto) 1+H, Urine RBC 0-2, Urine WBC 25-50H, Urine Crystals NONE, Urine Bacteria LARGEH, Urine Casts NONE, Urine Mucus NEGATIVE, Urine Other FEW SPERMH, Urine Culture Indicated YES 07/15/18 21:00: Troponin I 2.380*H 07/16/18 03:50: White Blood Count 8.7, Red Blood Count 5.24, Hemoglobin 14.4, Hematocrit 44, Mean Corpuscular Volume 85, Mean Corpuscular Hemoglobin 28, Mean Corpuscular Hemoglobin Concent 32, Red Cell Distribution Width 16.4H, Platelet Count 196, Mean Platelet Volume 11.8H, Neutrophils (%) (Auto) 62, Lymphocytes (%) (Auto) 25 , Monocytes (%) (Auto) 9, Eosinophils (%) (Auto) 3, Basophils (%) (Auto) 0, Neutrophils # (Auto) 5.4, Lymphocytes # (Auto) 2.2, Monocytes # (Auto) 0.8, Eosinophils # (Auto) 0.3, Basophils # (Auto) 0.0, Sodium Level 140, Potassium Level 3.6, Chloride Level 106, Carbon Dioxide Level 25, Anion Gap 9, Blood Urea Nitrogen 29H, Creatinine 1.64H, Estimat Glomerular Filtration Rate 42, BUN/ Creatinine Ratio 18, Glucose Level 90, Calcium Level 9.0, Magnesium Level 1.7L, Triglycerides Level 134, Cholesterol Level 119, LDL Cholesterol Direct 75, VLDL Cholesterol 27, HDL Cholesterol 28L A/P-Cardiology Assessment/Admission Diagnosis NSTEMI Renal failure of undetermined age. Does report h/o CKD. We suspect acute on chronic renal insufficiency - likely worsened d/t chronic diuretic use H/O CABG x 5 vessel in [address] Engel at [facility] in [place], [place] HLD - statin tx HTN Hypothyroidism - replacement tx BPH - h/o TURP H/O tobacco use - quit 41 years ago Discussion and Recomendations * Complex management due to ACS in the setting of renal failure * I had a long and detailed discussion with him regarding his CV and renal issues and management options * He realizes risk of contrast nephropathy and wishes to proceed with invasive management after optimization of risk. This appears reasonable to do * We have him on iv hydration and will plan on card cath later today * We are trying to obtain his records of CABG Clinical Quality Measures DVT/VTE Risk/Contraindication: Risk Factor Score Per Nursin RFS Level Per Nursing on Admit: 2=Moderate BELLA SMITH MD FACP FAC CCDS Jul 16, 2018 09:34
[2018-07-16] MEDS ORDERED: ACETAMINOPHEN 325 MG TABLET PO PRN (10:00)
--- NOTE | 2018-07-16 10:01 | Progress Note-Hospitalist ---
Subjective HPI/CC On Admission Date Seen by Provider: Jul 16, 2018 Time Seen by Provider: 09:56 Pt is a 73yoCM with a PMH of CAD s/p CABG x5 who presented to the ER due to right arm tingling. He states his symptoms started in the last few weeks with chest burning. He attempted taking a PPI without any improvement. He denies any alleviating or aggravating factors to the chest burning. Today around 1300 he developed right arm tingling and numbness with no pain down his right arm starting at his shoulder. He states it is resolved now. He presented to the ER for evaluation and was found to have an NSTEMI with a troponin elevated at 1.9. Due to renal function (creat 2.1) he was unable to go to [facility] and is being admitted for medical management and IVF in hopes of cardiac cath. He denies any SOB, nausea, vomiting, jaw pain. Subjective/Events-last exam Pt reports doing well. All symptoms resolved. No concerns from RN overnight. Objective Exam Vital Signs Vital Signs Date Time Temp Pulse Resp B/P (MAP) Pulse Ox O2 Delivery O2 Flow Rate FiO2 07/16/18 09:00 95 Room Air 07/16/18 08:00 60 17 128/84 (99) 07/16/18 04:00 97.5 Capillary Refill : Less Than 3 Seconds General Appearance: No Apparent Distress, WD/WN Respiratory: Lungs Clear, No Respiratory Distress Cardiovascular: Regular Rate, Rhythm, No Murmur Gastrointestinal: Normal Bowel Sounds, Non Tender, Soft Extremity: No Calf Tenderness, No Pedal Edema Neurologic/Psychiatric: Alert, Oriented x3 Results/Procedures Lab Laboratory Tests 07/15/18 15:15 07/16/18 03:50 Patient resulted labs reviewed. Imaging: Reviewed Imaging Report Assessment/Plan Assessment and Plan Assess & Plan/Chief Complaint NSTEMI Diagnosis/Problems Diagnosis/Problems (1) NSTEMI (non-ST elevated myocardial infarction) Status: Acute Assessment & Plan: Troponin up further today Cardiology consulted, appreciate recs Continue home BB and ASA Echo ordered Plan for Cath today (2) NEIL (acute kidney injury) Status: Acute Assessment & Plan: Patient unsure of history of kidney disease Creatinine improved today, continue IVF (3) Essential (primary) hypertension Status: Acute Assessment & Plan: Well controlled, trend Clinical Quality Measures DVT/VTE Risk/Contraindication: Risk Factor Score Per Nursin RFS Level Per Nursing on Admit: 2=Moderate SHAMA FORREST MD Jul 16, 2018 10:01
[2018-07-16] MEDS ORDERED: OMG1KC PO (10:06)
[2018-07-16] MEDS ORDERED: MULT-35 PO (10:06)
--- NOTE | 2018-07-16 10:06 | NUR ---
SPOKE WITH THE PATIENT ABOUT HIS MEDICATIONS. HE LISTED WHAT HE IS TAKING AND I VERIFIED IT WITH THE EXT MED HX. HE TAKES THE FOLLOWING OTC: ASPIRIN 81MG BID FISH OIL BID MTV DAILY
[2018-07-16] MEDS ORDERED: LIDOCAINE 1% INJ 20 ML 20 ML VIAL ONE (12:03)
[2018-07-16] MEDS ORDERED: HEParin (CATH LAB) 2,000 ML IV ONE (12:04)
[2018-07-16] MEDS ORDERED: MIDAZOLAM 5 MG/5 ML (VERSED) VIAL ONE (13:48)
[2018-07-16] MEDS ORDERED: NS IV 1000 ML 1,000 ML ONE (13:48)
[2018-07-16] MEDS ORDERED: HEParin 1000 UNIT/ML (10ML VIAL) FOR BOLUS ONE (13:48)
[2018-07-16] MEDS ORDERED: fentaNYL INJECTION 100 MCG/2 ML AMP ONE (13:48)
[2018-07-16] MEDS ORDERED: NITRO DRIP 25000 MCG/D5W 250 ML IV ONE (17:42)
[2018-07-16] MEDS ORDERED: EPTIFIBATIDE BOLUS 20 ML IV ONE (17:42)
[2018-07-16] MEDS ORDERED: niCARdipine 25 MG/10 ML (CARDENE) AMP IV ONE (17:50)
[2018-07-16] MEDS ORDERED: NS (IVPB) 250 ML ONE (17:50)
[2018-07-16] MEDS ORDERED: CLOPIDOGREL 300 MG (PLAVIX) TABLET PO ONE (18:14)
[2018-07-16] MEDS ORDERED: ASPIRIN 81 MG CHEW (CHILDREN'S ASA) ONE (18:15)
[2018-07-16] MEDS ORDERED: PATIENT MAY USE OWN MEDS, ALL PO SCH (18:45)
[2018-07-16] MEDS ORDERED: ENOXAPARIN 40 MG/0.4 ML (LOVENOX) SYR SC SCH (19:15)
--- NOTE | 2018-07-16 19:21 | OPERATIVE REPORT ---
DATE OF SERVICE: 07/16/2018 CARDIAC CATHETERIZATION INDICATIONS: The patient is a 73-year-old man with a history of coronary artery disease and coronary artery bypass surgery in 2009 in [place], [place]. He presents with acute non-ST elevation myocardial infarction. He has chronic renal failure consisting of chronic kidney disease, stage IV. He was hydrated for approximately 24 hours prior to the cardiac catheterization. Informed consent was obtained for cardiac catheterization, possible ad-hoc coronary intervention. He understood that cardiac catheterization and coronary intervention, amongst other risks, carries the risk of contrast nephropathy given his baseline renal insufficiency. He provided informed consent. DESCRIPTION OF PROCEDURE: He was brought to the cardiac catheterization laboratory in a fasting state. Right groin was prepared and draped in usual sterile fashion. Lidocaine 1% was used for local anesthesia. Modified Seldinger technique was used to advance a 5-Malawian sheath in the right femoral artery. All catheter exchanges were made over an exchange length wire because there was initial difficulty with advancement of the wire across the aortoiliac junction, likely on account of some aortoiliac disease. We used a 5-Malawian JL4 catheter for left coronary angiography and a 5-Malawian JR4 catheter for right coronary angiography and for angiography of the saphenous vein grafts. We used a 5-Malawian RENITA catheter for angiography of the left internal mammary artery graft to the left anterior descending artery. We used a 5-Malawian pigtail catheter to carry out left heart catheterization. We did not perform left ventricular angiography. This was due to conserve contrast given patient's renal insufficiency. Subsequently, percutaneous intervention was performed as described below. PERCUTANEOUS INTERVENTION TO THE SAPHENOUS VEIN GRAFT TO AN OBTUSE MARGINAL SYSTEM: We exchanged the sheath over a wire for a 6-Malawian sheath. We used a 6-Malawian JR4 guide catheter to engage the saphenous vein graft to an obtuse marginal system. This graft was shown to have 95-99% stenosis in its proximal portion. We gave 7000 units of intravenous heparin and a double bolus of Integrilin during the interventional procedure. We advanced a BMW wire across the lesion and the tip was placed in the distal vessel. We advanced Iris 3.0 x 23 mm stent. This was carefully positioned to cover the entire lesion. The stent was deployed at 22 atmospheres. Full stent expansion was achieved. Subsequent angiography revealed 0% residual stenosis at the previous site of 95-99% stenosis in the proximal portion of the saphenous vein graft to an obtuse marginal system. Flow throughout the vessel is normal. Angioplasty equipment was removed. Angiography of the right femoral artery was carried out through the sheath. Mynx was used to achieve hemostasis. He received a total of approximately 110 mm of contrast during this procedure. HEMODYNAMICS: Left ventricular end-diastolic pressure following coronary angiography was 11 mmHg. There is no significant pressure gradient on pullback across the aortic valve. Ascending aortic pressure was 110/63 with a mean of 82 mmHg. LEFT VENTRICULAR ANGIOGRAPHY: Left ventricular angiography was not performed to conserve contrast. CORONARY ANGIOGRAPHY: Left main coronary artery has approximately 30-40% distal stenosis. The left anterior descending artery has 95% stenosis in its mid portion following the origin of first diagonal branch. The left circumflex artery is occluded in its proximal portion. The right coronary artery has 90% proximal stenosis and 99% mid vessel stenosis. SAPHENOUS VEIN GRAFT ANGIOGRAPHY: Three aortocoronary grafts are occluded. One aortocoronary graft is patent. This is to an obtuse marginal system of the left circumflex artery and had 95-99% stenosis in the proximal portion which was successfully intervened on. Following deployment of Iris 3.0 x 23 mm stent, there is no significant residual stenosis. LEFT INTERNAL MAMMARY ARTERY GRAFT ANGIOGRAPHY: Left internal mammary artery graft to distal left anterior descending artery is patent and free of significant disease with good distal runoff. CONCLUSIONS: 1. Coronary artery disease consisting of 95% mid vessel stenosis of left anterior descending, proximal occlusion of the left circumflex, and 90-95% proximal stenosis of the right coronary artery. 2. Three out of four aortocoronary grafts are occluded. One graft was patent with 95% proximal stenosis and was successfully intervened on. Following deployment of Iris 3.0 x 23 mm stent to this graft, there is no significant residual stenosis. 3. Patent left internal mammary artery graft to distal left anterior descending artery. 4. Normal left ventricular end-diastolic pressure. DISCUSSION AND RECOMMENDATIONS: We have added Plavix to the regimen. Aspirin is being continued. The rest of the cardiac regimen is being continued. Vigorous perioperative hydration was initiated 24 hours prior to the procedure and is being continued during the procedure and afterwards. We felt that the culprit lesion was the saphenous vein graft to the obtuse marginal system. This is because the electrocardiogram was not showing significant changes. The patient also has considerable disease in the right coronary artery to which intervention can be considered at a later date. Given his renal insufficiency, we wanted to keep the procedures today to his culprit lesions. Job ID: [id number] DocumentID: [id number] Dictated Date: 07/16/2018 18:28:57 Conflict Resolution Professional Date: 07/16/2018 19:20:56 Dictated By: BELLA SMITH MD, MA, FACP, FACC, MTDD
[2018-07-16] MEDS: NS IV 1000 ML 1,000 ML IV SCH (20:32)
[2018-07-16] MEDS: ATORVASTATIN 40 MG (LIPITOR) TABLET PO SCH (20:34)
[2018-07-17] VITALS: BP 127/76
[2018-07-17] MEDS: 1/2 NS W/KCL 20 MEQ/L 1,000 ML IV SCH ×2 (01:19→05:12)
[2018-07-17] MEDS: NS IV 1000 ML 1,000 ML IV SCH (02:14)
[2018-07-17 03:37] LABS: BASOPHILS % (AUTO) 0 % (0-10); EOSINOPHILS # (AUTO) 0.2 10^3/uL (0.0-0.3); EOSINOPHILS % (AUTO) 3 % (0-10); HEMATOCRIT 43 % (40-54); HEMOGLOBIN 14.2 G/DL (13.3-17.7); LYMPHOCYTES # (AUTO) 1.4 X 10^3 (1.0-4.0); LYMPHOCYTES % (AUTO) 18 % (12-44); MEAN CORPUSCULAR HEMOGLOBIN 28 PG (25-34); MEAN CORPUSCULAR HGB CONC 33 G/DL (32-36); MEAN CORPUSCULAR VOLUME 84 FL (80-99); MEAN PLATELET VOLUME 11.8 FL (7.4-10.4); MONOCYTES # (AUTO) 0.8 X 10^3 (0.0-1.0); MONOCYTES % (AUTO) 10 % (0-12); NEUTROPHILS # (AUTO) 5.6 X 10^3 (1.8-7.8); NEUTROPHILS % (AUTO) 69 % (42-75); PLATELET COUNT 179 10^3/uL (130-400); RED BLOOD COUNT 5.15 10^6/uL (4.35-5.85); RED CELL DISTRIBUTION WIDTH 16.4 % (10.0-14.5); WHITE BLOOD COUNT 8.1 10^3/uL (4.3-11.0)
[2018-07-17 04:00] VITALS: BP 129/81
[2018-07-17 04:14] LABS: CREATININE SERUM 1.78 MG/DL (0.60-1.30); MAGNESIUM 1.5 MG/DL (1.8-2.4); POTASSIUM 3.6 MMOL/L (3.6-5.0)
[2018-07-17] MEDS: LEVOTHYROXINE 112 MCG (LEVOTHROID) TAB PO SCH (05:49)
[2018-07-17 08:00] VITALS: BP 126/75
[2018-07-17] MEDS: CARVEDILOL 6.25 MG (COREG) TAB PO SCH (08:18)
[2018-07-17] MEDS: amLODIPine 10 MG (NORVASC) TAB PO SCH (08:18)
[2018-07-17] MEDS ORDERED: AMLO10TA6 PO (08:28)
[2018-07-17] MEDS ORDERED: ATOR40TA PO (08:28)
[2018-07-17] MEDS ORDERED: CLOP75TA28 PO (08:28)
--- NOTE | 2018-07-17 08:29 | Discharge Inst-Simple/Standard ---
Discharge Inst-Standard Discharge Medications New, Converted or Re-Newed RX: Transmitted to Pharmacy Patient Instructions/Follow Up Plan of Care/Instructions/FU: Please continue to take your medications as written. Please follow up with Dr Alaniz and Dr Smith to follow up this hospital stay. Activity as Tolerated: Yes Discharge Diet: Cardiac Diet Return to The Hospital For: Chest pain, shortness of breath, confusion, if you feel you are getting worse. SHAMA FORREST MD Jul 17, 2018 08:29
--- NOTE | 2018-07-17 08:34 | Progress Note-Cardiology ---
Cardiology SOAP Progress Note Subjective: Sitting up in bed. No c/o CP, palpitations or dyspnea. No c/o right groin discomfort. Objective: I&O/Vital Signs 07/17/18 07/17/18 07/17/18 07/17/18 03:57 04:00 04:00 07:08 Temp 98.5 Pulse 61 66 Resp 10 B/P (MAP) 129/81 (97) Pulse Ox 96 96 O2 Delivery Room Air Room Air 07/17/18 07/17/18 07/17/18 07/17/18 08:00 08:00 08:00 09:00 Temp 98.2 Pulse 63 Resp 14 B/P (MAP) 126/75 (92) Pulse Ox 96 95 93 O2 Delivery Room Air Room Air Room Air 07/17/18 07/17/18 10:00 12:00 Pulse 58 56 Resp 13 19 B/P (MAP) 128/80 (96) 130/69 (89) Pulse Ox 95 92 O2 Delivery Room Air Room Air 07/17/18 00:00 Intake Total 1100 ml Output Total 200 ml Balance 900 ml Weight (Pounds): 210 Weight (Ounces): 0.0 Weight (Calculated Kilograms): 95.195111 Side: right Groin site without hematoma: Yes Condition: DP/PT pulses palpable, extremity w/d/p Bruising: mild bruising Constitutional: AAO x 3, well-developed, well-nourished Respiratory: No accessory muscle use, No respiratory distress; chest expansion is symmetric, chest is bilaterally symmetric, lungs clear to auscultation Cardiovascular: regular rate-rhythm; No JVD; S1 and S2 Gastrointestional: No tender; soft, round, audible bowel sounds Extremities: no lower extremity edema bilateral Neurologic/Psychiatric: grossly intact, power is 5/5 both on sides Skin: No rash, No ulcerations Results/Procedures: Labs Laboratory Tests 07/17/18 03:30: White Blood Count 8.1, Red Blood Count 5.15, Hemoglobin 14.2, Hematocrit 43, Mean Corpuscular Volume 84, Mean Corpuscular Hemoglobin 28, Mean Corpuscular Hemoglobin Concent 33, Red Cell Distribution Width 16.4H, Platelet Count 179, Mean Platelet Volume 11.8H, Neutrophils (%) (Auto) 69, Lymphocytes (%) (Auto) 18 , Monocytes (%) (Auto) 10, Eosinophils (%) (Auto) 3, Basophils (%) (Auto) 0, Neutrophils # (Auto) 5.6, Lymphocytes # (Auto) 1.4, Monocytes # (Auto) 0.8, Eosinophils # (Auto) 0.2, Basophils # (Auto) 0.0, Sodium Level 141, Potassium Level 3.6, Chloride Level 109H, Carbon Dioxide Level 23, Anion Gap 9, Blood Urea Nitrogen 24H, Creatinine 1.78H, Estimat Glomerular Filtration Rate 38, BUN/ Creatinine Ratio 13, Glucose Level 79, Calcium Level 9.0, Magnesium Level 1.5L Microbiology 07/15/18 Urine Culture - Preliminary, Resulted Culture In Progress Laboratory Tests 07/15/18 15:15 07/16/18 03:50 07/17/18 03:30 Procedures S/P cardiac cath on 07-16-18 with successful intervention. Please refer to cardiac cath report for details. A/P: Assessment: Ac NSTEMI Coronary artery disease - Cardiac cath of 07-16-18: 95% mid vessel stenois of left anterior descending, proximal occlusion of the left circumflex, and 90-95% proximal stenosis of the right coronary artery. Three out of four aortocoronary grafts are occluded. One graft was patent with 95% proximal stenosis and was successfully intervened on. Following deployment of Iris 3.0 x 23 mm stent to this graft, there is no significant residual stenosis. Patent left internal mammary artery graft to distal left anterior descending artery. Normal left ventricular end-diastolic pressure. CKD 4 H/O CABG x 5 vessel in [address] Engle at [facility] in [place], [place] HLD - statin tx HTN Hypothyroidism - replacement tx BPH - h/o TURP H/O tobacco use - quit 41 years ago Plan: * We have added Plavix to the regimen * Continue ASA at 81mg once a day * We felt that the culprit lesion was the saphenous vein graft to the obtuse marginal system. This is because the electrocardiogram was not showing significant changes. The patient also has considerable disease in the right coronary artery to which intervention can be considered at a later date. Given his renal insufficiency, we wanted to keep the procedures of 07-16-18 to his culprit lesions. * Risk factor modification advised * Increase activity today * Continue hydration * Replace Mag * Monitor lab closely * We are trying to obtain his records of CABG Physician Assessment Physician Assessment No cp or palp or syncope or shortness of breath or groin discomfort Wishes to go home Lungs: good bilat air entry Cor: reg Ext: no/c/c/e. Mild groin bruising A&R * As documented in our note above that I updated (italics) and as noted below * I discussed with him in detail the cath findings and interventions undertaken * We have advised repeat BMP on 07/20/18 to eval for contrast nephropathy * Clinical f/u is advised on 07/20/18 * Consideration can be given to PCI to RCA, if renal function remains stable ( yesterday, we addressed only the culprit vessel) * We reviewed risk factor modification with him * I advised med compliance, including compliance with clopidogrel * Potential side effects of current meds were reviewed * I also discussed his case with Dr Dill on the phone KAYLA DASILVA Jul 17, 2018 08:34 BELLA SMITH MD FACP [facility] CCDS Jul 17, 2018 13:28
[2018-07-17] MEDS ORDERED: ASPI-999 PO (08:54)
--- NOTE | 2018-07-17 08:56 | Discharge Inst-Cardiology ---
Discharge Inst-Cardiac Discharge Medications New Medications: PENDING: Amlodipine Besylate (Amlodipine Besylate) 10 Mg Tablet 10 MG PO DAILY, #30 TAB Aspirin (Aspirin) 81 Mg Tab.chew 81 MG PO DAILY, #30 TAB 5 Refills PENDING: Atorvastatin Calcium (Lipitor) 40 Mg Tablet 40 MG PO HS, #30 TAB PENDING: Clopidogrel Bisulfate (Clopidogrel) 75 Mg Tablet 75 MG PO DAILY, #30 TAB Continued Medications: Allopurinol (Allopurinol) 300 Mg Tablet 300 MG PO DAILY, TAB Carvedilol (Carvedilol) 6.25 Mg Tablet 6.25 MG PO BID, TAB Levothyroxine Sodium (Levothyroxine Sodium) 112 Mcg Tablet 112 MCG PO DAILY, TAB Multivitamin (Daily Multiple Vitamin) 1 Each Tablet 1 TAB PO DAILY, TAB Retsof 3 Polyunsat Fatty Acids (Fish Oil 1,000 mg Capsule) 1,000 Mg Cap 1000 MG PO BID, CAP Discontinued Medications: Aspirin (Aspir 81) 81 Mg Tablet.dr 81 MG PO BID, TAB Hydrochlorothiazide (Hydrochlorothiazide) 25 Mg Tablet 25 MG PO DAILY, TAB Lovastatin (Lovastatin) 40 Mg Tablet 80 MG PO HS, TAB TAKE 2 (40MG) TABS New, Converted or Re-Newed RX: Transmitted to Pharmacy Patient Instructions Patient Instructions: Please schedule follow up appointment to see Dr. Alaniz on Saturday, July 21, 2018 Please have lab done on Saturday, at least one hour prior to your appointment time with Dr. Alaniz: BMP Activity & Diet Discharge Diet: Cardiac Diet Activity as Tolerated: Yes KAYLA DASILVA Jul 17, 2018 08:56
[2018-07-17] MEDS ORDERED: ASPIRIN 81 MG CHEW (CHILDREN'S ASA) PO SCH (09:00)
[2018-07-17] MEDS ORDERED: CLOPIDOGREL 75 MG (PLAVIX) TABLET PO SCH (09:00)
[2018-07-17] MEDS: MAGNESIUM 1 GM/100 ML IVPB 100 ML IV SCH ×2 (09:20→10:34)
[2018-07-17 10:00] VITALS: BP 128/80
[2018-07-17 12:00] VITALS: BP 130/69
--- NOTE | 2018-07-17 13:08 | Discharge Summary-Hospitalist ---
Diagnosis/Chief Complaint Date of Admission Jul 15, 2018 at 16:50 Date of Discharge Discharge Date: Jul 17, 2018 Discharge Time: 1200 Admission Diagnosis NSTEMI Discharge Diagnosis (1) NSTEMI (non-ST elevated myocardial infarction) Status: Acute Assessment & Plan: Troponin elevated Cardiology consulted, appreciate recs Continue home BB and ASA Echo ordered Cath done on 07/16 and stent deployed in previous graft (2) NEIL (acute kidney injury) Status: Acute Assessment & Plan: Patient unsure of history of kidney disease Creatinine improved received pre and post cath fluids resuscitation (3) Essential (primary) hypertension Status: Acute Assessment & Plan: Well controlled, trend Discharge Summary Procedures/Consulations Cardiology- Dr Alaniz Discharge Physical Exam Allergies: Coded Allergies: No Known Drug Allergies (Unverified , 12/05/17) Vitals & I&Os Vital Signs Date Time Temp Pulse Resp B/P (MAP) Pulse Ox O2 Delivery O2 Flow Rate FiO2 07/17/18 12:00 56 19 130/69 (89) 92 Room Air 07/17/18 08:00 98.2 General Appearance: No Apparent Distress, WD/WN Respiratory: Lungs Clear, No Respiratory Distress Cardiovascular: Regular Rate, Rhythm, No Murmur Gastrointestinal: Normal Bowel Sounds, Non Tender, Soft Neurologic/Psychiatric: Alert, Oriented x3 Hospital Course Pt is a 73yoCM witha history of CAD s/p CABG who presented with right arm numbness and tingling. He was found to have an elevated troponin, diagnosed with an NSTEMI and underwent cardiac cath that revealed significant stenosis of previous grafts and he underwent stenting to culprit lesion. He was also foundto have an NEIL and was pretreated with IVF and continued IVF following cath and creatinine remained stable. He is to follow up with Dr Alaniz and to have BMP done on 05/21 to ensure no worsening of creatinine from contrast per Dr Alaniz. He was discharged in stable condition and comfortable with plan to return home. Labs (last 24 hrs) Laboratory Tests 07/17/18 03:30: White Blood Count 8.1, Red Blood Count 5.15, Hemoglobin 14.2, Hematocrit 43, Mean Corpuscular Volume 84, Mean Corpuscular Hemoglobin 28, Mean Corpuscular Hemoglobin Concent 33, Red Cell Distribution Width 16.4H, Platelet Count 179, Mean Platelet Volume 11.8H, Neutrophils (%) (Auto) 69, Lymphocytes (%) (Auto) 18 , Monocytes (%) (Auto) 10, Eosinophils (%) (Auto) 3, Basophils (%) (Auto) 0, Neutrophils # (Auto) 5.6, Lymphocytes # (Auto) 1.4, Monocytes # (Auto) 0.8, Eosinophils # (Auto) 0.2, Basophils # (Auto) 0.0, Sodium Level 141, Potassium Level 3.6, Chloride Level 109H, Carbon Dioxide Level 23, Anion Gap 9, Blood Urea Nitrogen 24H, Creatinine 1.78H, Estimat Glomerular Filtration Rate 38, BUN/ Creatinine Ratio 13, Glucose Level 79, Calcium Level 9.0, Magnesium Level 1.5L Microbiology 07/15/18 Urine Culture - Preliminary, Resulted Culture In Progress Patient resulted labs reviewed. Imaging: Reviewed Imaging Report Discussion & Recommendations Discharge Planning: >30 minutes discharge planning Discharge Home Medications: Active Scripts Active Aspirin 81 Mg Tab.chew 81 Mg PO DAILY Reported Fish Oil 1,000 mg Capsule ([place] 3 Polyunsat Fatty Acids) 1,000 Mg Cap 1,000 Mg PO BID Daily Multiple Vitamin (Multivitamin) 1 Each Tablet 1 Tab PO DAILY Aspir 81 (Aspirin) 81 Mg Tablet.dr 81 Mg PO BID Allopurinol 300 Mg Tablet 300 Mg PO DAILY Hydrochlorothiazide 25 Mg Tablet 25 Mg PO DAILY Carvedilol 6.25 Mg Tablet 6.25 Mg PO BID Lovastatin 40 Mg Tablet 80 Mg PO HS TAKE 2 (40MG) TABS Levothyroxine Sodium 112 Mcg Tablet 112 Mcg PO DAILY Instructions to patient/family Please see electronic discharge instructions given to patient. Clinical Quality Measures DVT/VTE Risk/Contraindication: Risk Factor Score Per Nursin RFS Level Per Nursing on Admit: 2=Moderate Copy Copies To 1: KATHIA NAIR MD, KATELYN M MD Jul 17, 2018 13:08
== END 2018-07-17 13:26 | disposition home or self-care (01) | DRG 247 ==
LOC: EDUNIT# 15:03 → ER 15:04 → ICU 16:50 → EDPENDDISTM 07-17 12:00
PROVIDERS: ADMIT Family Medicine; ATTEND Family Medicine
PROC: 027034Z Dilation of Coronary Artery, One Artery with Drug-eluting Intraluminal Device, Percutaneous Approach (ICD-10-PCS; principal; 2018-07-16)
PROC: 4A023N7 Measurement of Cardiac Sampling and Pressure, Left Heart, Percutaneous Approach (ICD-10-PCS; 2018-07-16)
PROC: B2111ZZ Fluoroscopy of Multiple Coronary Arteries using Low Osmolar Contrast (ICD-10-PCS; 2018-07-16)
PROC: B21F1ZZ Fluoroscopy of Other Bypass Graft using Low Osmolar Contrast (ICD-10-PCS; 2018-07-16)
PROC: B2181ZZ Fluoroscopy of Left Internal Mammary Bypass Graft using Low Osmolar Contrast (ICD-10-PCS; 2018-07-16)
DX: I21.4 Non-ST elevation (NSTEMI) myocardial infarction (principal); I25.810 Atherosclerosis of coronary artery bypass graft(s) without angina pectoris; N17.9 Acute kidney failure, unspecified; I12.9 Hypertensive chronic kidney disease with stage 1 through stage 4 chronic kidney disease, or unspecified chronic kidney disease; N18.4 Chronic kidney disease, stage 4 (severe); E03.9 Hypothyroidism, unspecified; I70.0 Atherosclerosis of aorta; I70.8 Atherosclerosis of other arteries; E78.5 Hyperlipidemia, unspecified; Z95.1 Presence of aortocoronary bypass graft; Z87.891 Personal history of nicotine dependence
CPT/HCPCS: 36415; 70450; 71046; 72125; 73030; 80048; 80053; 80061; 81000; 83735; 83874; 84484; 85025; 85027; 86141; 87088; 93005; 93306; 93459; 96360; 96372

== ENCOUNTER → 2018-07-21 | Outpatient (CLI) | payer MEDICARE, OTHER ==
[~2018-07-21] MED LIST changes: +AMLO10TA7 PO; +ASPI-999 PO; +ATOR40TA PO; +CLOP75TA28 PO; +MULT-35 PO; +OMG1KC PO
[2018-07-21 10:00] LABS: CALCIUM 9.4 MG/DL (8.5-10.1); CREATININE SERUM 1.72 MG/DL (0.60-1.30); POTASSIUM 3.7 MMOL/L (3.6-5.0)
== END ==
LOC: LAB 09:29
PROVIDERS: ATTEND Nurse Practitioner Family
DX: N18.3 Chronic kidney disease, stage 3 (moderate) (principal)
CPT/HCPCS: 36415; 80048

== ENCOUNTER → 2018-08-18 | Outpatient (CLI) | payer MEDICARE, OTHER | LOC: CARD 10:39 | PROVIDERS: ATTEND Internal Medicine Cardiovascular Disease | DX: I25.10 Atherosclerotic heart disease of native coronary artery without angina pectoris (principal); I12.9 Hypertensive chronic kidney disease with stage 1 through stage 4 chronic kidney disease, or unspecified chronic kidney disease; N18.4 Chronic kidney disease, stage 4 (severe) | CPT/HCPCS: 93306 ==

== ENCOUNTER 2018-08-26 06:40 | Day surgery (SDC) | payer MEDICARE, OTHER ==
[~2018-08-26] VITALS: Ht 175.3 cm; Wt 90.7 kg
[2018-08-26] VITALS (17 sets, daily range): BP systolic 109–145; BP diastolic 67–81
--- OUTSIDE RECORDS SUMMARY | 2018-08-26 06:43 | XMS REPORT | Continuity of Care Document ---
Author Author [facility] Address Unknown Phone Unavailable Allergies There is no data. Medications There is no data. Problems There is no data. Procedures There is no data. Results There is no data. Encounters ACCT No. Visit Date/Time Discharge Status Pt. Type Provider Facility Loc./Unit Complaint [id number] 12/07/2008 13:04:00 12/07/2008 23:59:59 CLS Outpatient CESAR ANDERSON DDS
[2018-08-26] MEDS ORDERED: NS IV 1000 ML 3,000 ML ONE (06:48)
[2018-08-26] MEDS ORDERED: LIDOCAINE 1% INJ 20 ML 20 ML VIAL ONE (06:48)
[2018-08-26] MEDS ORDERED: HEParin 1000 UNIT/ML (10ML VIAL) FOR BOLUS ONE (06:48)
[2018-08-26] MEDS: NS IV 1000 ML 1,000 ML IV SCH ×4 (07:00→13:39)
[2018-08-26] MEDS ORDERED: AMLO10TA7 PO (07:11)
[2018-08-26] MEDS ORDERED: CLOP75TA69 PO (07:11)
[2018-08-26] MEDS ORDERED: ATOR40TA70 PO (07:11)
[2018-08-26] MEDS ORDERED: ASPI-999 PO (07:11)
[2018-08-26 07:16] LABS: HEMOGLOBIN 14.9 G/DL (13.3-17.7); MEAN PLATELET VOLUME 10.4 FL (7.4-10.4); WHITE BLOOD COUNT 7.1 10^3/uL (4.3-11.0)
[2018-08-26 07:27] LABS: PROTHROMBIN TIME PATIENT 13.4 SEC (12.2-14.7)
[2018-08-26 07:36] LABS: ALBUMIN 4.2 GM/DL (3.2-4.5); BILIRUBIN,TOTAL 0.6 MG/DL (0.1-1.0); CALCIUM 9.9 MG/DL (8.5-10.1); CREATININE SERUM 1.89 MG/DL (0.60-1.30); POTASSIUM 3.7 MMOL/L (3.6-5.0); TOTAL PROTEIN 7.3 GM/DL (6.4-8.2)
[2018-08-26] MEDS ORDERED: fentaNYL INJECTION 100 MCG/2 ML AMP ONE (08:18)
[2018-08-26] MEDS ORDERED: NITRO DRIP 25000 MCG/D5W 0 ML IV ONE (08:18)
[2018-08-26] MEDS ORDERED: EPTIFIBATIDE BOLUS 20 ML IV ONE (08:18)
[2018-08-26] MEDS ORDERED: MIDAZOLAM 5 MG/5 ML (VERSED) VIAL ONE (08:18)
[2018-08-26] MEDS ORDERED: ATROPINE INJECTION 1 MG/10 ML SYR (ABBOTT) ONE (09:14)
[2018-08-26] MEDS ORDERED: NS IV 1000 ML 1,000 ML ONE (09:29)
[2018-08-26] MEDS ORDERED: ASPIRIN 81 MG CHEW (CHILDREN'S ASA) ONE (09:44)
[2018-08-26] MEDS ORDERED: CLOPIDOGREL 75 MG (PLAVIX) TABLET ONE (09:44)
--- NOTE | 2018-08-26 10:12 | NUR ---
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 Patient Rights given to patient in the handbook. ALAN CHURCH JR verbalizes understanding that [facility] is not responsible for the loss or damage to any personal effects or valuables that are kept in the patients posession during their hospitalization. The following Patient Care Plans were discussed with the PT: Discharge Planning, PAIN,HIGH RISK BLEEDING, and FLUID VOLUME DEFICIT. ALAN CHURCH JR verbalizes understanding of Interdisciplinary Patient Education. Patient and family were informed about the Rapid Response Team and its purpose.
--- NOTE | 2018-08-26 10:17 | Cardiac Procedure Note-CS/ASA ---
Pre-Procedure Note Pre-Op Procedure Note H&P Reviewed The H&P was reviewed, patient examined and no changes noted. Date H&P Reviewed: Aug 26, 2018 Time H&P Reviewed: 08:50 Conscious Sedation Pre-Proced Time 08:50 ASA Score 3 For ASA 3 and 4: Consider anesthesia and medical clearance. Also, for patients with a history of failed moderate sedation consider anesthesia. Airway Lungs Heart ASA score ASA 1: a normal healthy patient ASA 2: a patient with a mild systemic disease (mid diabetes, controlled hypertension, obesity ASA 3: a patient with a severe systemic disease that limits activity (angina , COPD, prior Myocardial infarction) ASA 4: a patient with an incapacitating disease that is a constant threat to life (CHF, renal failure) ASA 5: a moribund patient not expected to survive 24 hrs. (ruptured aneurysm) ASA 6: a declared brain- patient whose organs are being harvested. For emergent operations, add the letter E after the classification Mallampati Classification Grade 2 Sedation Plan Analgesia, Amnesia, Plan communicated to team members, Discussed options with patient/fam, Discussed risks with patient/fam The patient is an appropriate candidate to undergo the planned procedure, sedation, and anesthesia. The patient immediately re-assessed prior to indication. BELLA SMITH MD FACP FAC CCDS Aug 26, 2018 10:17
[2018-08-26] MEDS ORDERED: PATIENT MAY USE OWN MEDS, ALL PO SCH (10:30)
[2018-08-26] MEDS ORDERED: ACETAMINOPHEN 325 MG TABLET PO PRN (10:30)
--- NOTE | 2018-08-26 14:11 | CARDIAC CATHETERIZATION ---
DATE OF SERVICE: 08/26/2018 CARDIAC CATHETERIZATION AND CORONARY INTERVENTION REPORT INDICATIONS: The patient is a 73-year-old man with known coronary artery disease and a history of coronary bypass surgery. On 07/16/2018, cardiac catheterization showed patent left internal mammary artery graft to left anterior descending and occlusion of 3/4 aortocoronary grafts. One graft to an obtuse marginal was patent, but severely diseased and this was stented. He was noted to have complete proximal occlusion of the left circumflex and more than 95% mid vessel stenosis to the left anterior descending. The right coronary artery had 99% to 100% stenosis in its proximal to mid portion. Following intervention to the OM graft, his symptoms improved, but not completely resolved. He comes in today for a repeat angiography of the coronary vessels and consideration of intervention to the right coronary artery. Informed consent was obtained. He did understand that his risk for the contrast nephropathy was significantly higher than usual, given that he has baseline chronic kidney disease. Vigorous perioperative hydration was carried out before, during and after the procedure. PROCEDURE: The patient was brought to the cardiac catheterization laboratory. Right groin was prepared and draped in the usual sterile fashion. Lidocaine 1% was used for local anesthesia. Modified Seldinger technique was used to advance a 6-Slovenian sheath in the right femoral artery. We first carried out angiography of the right coronary artery and intervention of the right coronary artery, which is described below. We then carried out angiography of the left coronary artery using a JL4 diagnostic catheter. We then carried out angiography of the aortocoronary grafts, in particular the graft that had been stented in July 2018. We used a 5-Slovenian JR4 catheter for this angiography. The catheter was then removed. Angiography of the right femoral artery was carried out through the sheath. Mynx was used to achieve hemostasis and he tolerated the procedure well. PERCUTANEOUS INTERVENTION TO THE RIGHT CORONARY ARTERY: We used a 6-Slovenian JR4 guide catheter with side holes to engage the right coronary artery. We used multiple wires to try and cross the 99% to 100% stenosis in the proximal to mid right coronary artery. We were unsuccessful with crossing the lesion completely with the ChoICE Floppy and with a Choice PT Graphix wires. With the considerable difficulty, we were able to cross the lesion with a Whisper medium support wire. The tip of the wire was placed in the distal vessel. We were unable to advance the Emerge 2.0 x 20 mm balloon. This resulted in a prolapse of the wire out of the artery. We removed the balloon and rewired the artery and we were then able to advance Emerge 1.5 x 20 mm balloon with considerable difficulty. Multiple balloon inflations were carried out. This balloon was then removed and we were now able to advance an Emerge 2.0 x 20 mm balloon with which we carried out multiple balloon inflations. This balloon was removed and we then advanced Alpine Xience 2.25 x 28 mm stent to the lesion. This was used to carefully cover the entire lesion in the proximal and mid right coronary artery and the stent was deployed at 20 atmospheres achieving a final stent lumen size of approximately 2.6 mm. Subsequent angiography revealed 0% residual stenosis at the previous site of 99% to 100% stenosis. Flow throughout the vessel was normal. He tolerated the procedure well. [place] CORONARY ANGIOGRAPHY: Left main coronary artery does not exhibit significant disease. Left anterior descending artery has 99% mid vessel stenosis. Left circumflex artery is occluded in its proximal portion. Right coronary artery had 99% to 100% stenosis in its proximal mid portion to which successful intervention was carried out that is described above. AORTOCORONARY GRAFT ANGIOGRAPHY: All aortocoronary grafts are occluded except that the aortocoronary graft to an obtuse marginal is patent. It has a widely patent stent in its proximal portion that is known to be Iris 3.0 x 23 mm that was deployed on 07/16/2018. We did not carry out selective angiography of left internal mammary artery graft. This graft has been shown to be patent on angiography of 07/16/2018. CONCLUSIONS: 1. Severe [place]au coronary artery disease consisting of 99% mid vessel stenosis of the left anterior descending and complete occlusion of the proximal left circumflex. The right coronary artery had 99% to 100% ismclcoa-qu-xal vessel stenosis to which successful stenting was carried out with Alpine Iris 2.25 x 28 mm stent that was deployed at 20 atmospheres. 2. Three out of four aortocoronary grafts are occluded. An aortocoronary graft to an obtuse marginal is patent and is known to have a Iris 3.0 x 23 mm stent in its proximal portion that was placed on 07/16/2018. 3. Patent left internal mammary artery graft to the distal left anterior descending artery performed based on angiography of 07/16/2018. DISCUSSION AND RECOMMENDATIONS: Dual antiplatelet therapy is being continued. The rest of his cardiac regimen is being continued. He is being hospitalized for overnight observation and for continuing hydration, given his chronic kidney disease. Job ID: [id number] DocumentID: [id number] Dictated Date: 08/26/2018 10:09:19 Glass Mold Repairer Date: 08/26/2018 11:14:40 Dictated By: BELLA SMITH MD, MA, FACP, FACC, MTDD
[2018-08-26] MEDS: CARVEDILOL 6.25 MG (COREG) TAB PO SCH (20:14)
[2018-08-26] MEDS: OMEGA 3 (FISH OIL) 1000 MG CAP PO SCH (20:15)
[2018-08-27] VITALS: BP 136/75
[2018-08-27] MEDS: NS IV 1000 ML 1,000 ML IV SCH (00:12)
[2018-08-27 03:35] LABS: HEMOGLOBIN 12.9 G/DL (13.3-17.7); MEAN PLATELET VOLUME 10.7 FL (7.4-10.4); RED CELL DISTRIBUTION WIDTH 17.1 % (10.0-14.5); WHITE BLOOD COUNT 7.6 10^3/uL (4.3-11.0)
[2018-08-27 03:55] LABS: CREATININE SERUM 1.45 MG/DL (0.60-1.30); POTASSIUM 3.9 MMOL/L (3.6-5.0)
[2018-08-27 03:57] VITALS: BP 137/78
[2018-08-27] MEDS ORDERED: MULTIVIT W/MINERALS TAB (THERAGRAN M) PO SCH (07:00)
[2018-08-27 07:42] VITALS: BP 144/77
[2018-08-27] MEDS: OMEGA 3 (FISH OIL) 1000 MG CAP PO SCH (07:45)
[2018-08-27] MEDS: CARVEDILOL 6.25 MG (COREG) TAB PO SCH (07:46)
[2018-08-27] MEDS ORDERED: LEVOTHYROXINE 112 MCG (LEVOTHROID) TAB PO SCH (09:00)
[2018-08-27] MEDS ORDERED: ATORVASTATIN 40 MG (LIPITOR) TABLET PO SCH (09:00)
[2018-08-27] MEDS ORDERED: CLOPIDOGREL 75 MG (PLAVIX) TABLET PO SCH (09:00)
[2018-08-27] MEDS ORDERED: amLODIPine 10 MG (NORVASC) TAB PO SCH (09:00)
[2018-08-27] MEDS ORDERED: ASPIRIN 81 MG CHEW (CHILDREN'S ASA) PO SCH (09:00)
[2018-08-27] MEDS ORDERED: ALLOPURINOL 300 MG (ZYLOPRIM) TAB PO SCH (09:00)
--- NOTE | 2018-08-27 09:23 | Progress Note-Cardiology ---
Cardiology SOAP Progress Note Subjective: No cp or palp or shortness of breath or syncope or groin discomfort. Wishes to go home Objective: I&O/Vital Signs 08/27/18 08/27/18 08/27/18 08/27/18 00:00 00:00 01:00 03:57 Temp 98.3 98.6 Pulse 64 63 65 Resp 12 16 B/P (MAP) 136/75 (95) 137/78 (97) Pulse Ox 94 94 O2 Delivery Room Air Room Air 08/27/18 08/27/18 08/27/18 08/27/18 03:58 07:17 07:42 07:50 Temp 98.6 Pulse 68 73 Resp 20 B/P (MAP) 144/77 (99) Pulse Ox 94 93 93 O2 Delivery Room Air Room Air Room Air 08/27/18 00:00 Intake Total 1840 ml Output Total 1425 ml Balance 415 ml Weight (Pounds): 200 Weight (Ounces): 0.0 Weight (Calculated Kilograms): 90.068159 Groin site without hematoma: Yes Condition: DP/PT pulses palpable Bruising: mild bruising Constitutional: AAO x 3, well-developed, well-nourished Respiratory: No accessory muscle use; lungs clear to percussion, lungs clear to auscultation Cardiovascular: regular rate-rhythm, S1 and S2, systolic murmur (faint MARIA GUADALUPE at card base) Gastrointestional: No tender; soft; No guarding, No rebound; audible bowel sounds Extremities: No clubbing, No cyanosis, No significant edema Neurologic/Psychiatric: oriented x 3, grossly intact, power is 5/5 both on sides Skin: No rash on exposed areas, No ulcerations on exposed areas Results/Procedures: Labs Laboratory Tests 08/27/18 03:10: White Blood Count 7.6, Red Blood Count 4.65, Hemoglobin 12.9L, Hematocrit 40, Mean Corpuscular Volume 85, Mean Corpuscular Hemoglobin 28, Mean Corpuscular Hemoglobin Concent 33, Red Cell Distribution Width 17.1H, Platelet Count 186, Mean Platelet Volume 10.7H, Sodium Level 141, Potassium Level 3.9, Chloride Level 111H, Carbon Dioxide Level 21, Anion Gap 9, Blood Urea Nitrogen 22H, Creatinine 1.45H, Estimat Glomerular Filtration Rate 48, BUN/Creatinine Ratio 15 , Glucose Level 84, Calcium Level 9.0 Laboratory Tests 08/26/18 07:10 08/27/18 03:10 A/P: Assessment: Coronary artery disease with h/o CABG x5 by Dr Engle at [facility] in 2009 - Cardiac cath of 07-16-18: 95% mid vessel stenois of left anterior descending, proximal occlusion of the left circumflex, and 99-100% proximal stenosis of the right coronary artery. Three out of four aortocoronary grafts (SVGs) are occluded. One graft (to OM) was patent with 95% proximal stenosis and was successfully intervened on. Following deployment of Iris 3.0 x 23 mm stent to this graft, there is no significant residual stenosis. Patent left internal mammary artery graft to distal left anterior descending artery. Normal left ventricular end-diastolic pressure. Cardiac cath of 08-26-18: Iris 2.25 x 28 mm stent of proximal RCA Echo of 08/18/18: LVEF 60-65%, mild conc LVH, mild to mod LAE, PASP 25 mmHg CKD 4, stable after card cath and cor intervention of 07-16-18 (i.e, no evidence of contrast nephropathy on repeat lab work of 08-27-18; Cr 1.45) HLD - statin tx HTN Hypothyroidism - replacement tx BPH - h/o TURP H/o tobacco use - quit 41 years ago Plan: * Continue current regimen, including DAPT * We discussed in detail the cath findings and interventions undertaken * Renal function is stable/improved * We recommend close outpt f/u BELLA SMITH MD FACP FAC CCDS Aug 27, 2018 09:23
--- NOTE | 2018-08-27 09:25 | Discharge Inst-Post CATH ---
Discharge Inst-CATH/EP Post Cardiac Cath/EP D/C Inst Follow Up/Plan F/u with Dr Alaniz in 1-2 weeks CARDIAC CATH DISCHARGE INSTRUCTIONS *Hold Metformin for 48 hours post heart cath. ACTIVITY * Go Home directly and rest. * Limit activity of the leg (or wrist if it was used) for 7 days including aerobics, swimming, jogging, bicycling, etc. * Restrict stair-climbing for 7 days if possible, if not, climb up with your non -cath leg, then bring together on the same step. * Avoid lifting, pushing, pulling or excessive movement of the affected extremity for 7 days. * Customary sexual activity may be resumed after 2 days-use caution not to use a position that strains or causes pain to the affected extremity. * No driving for 24 hours. * NO SMOKING. * Avoid straining for bowel movements for 7 days. * Gentle walking on level ground is allowed. * Returning to work will depend on the type of procedure and the results. Your doctor will discuss this with you. CALL YOUR DOCTOR FOR ANY OF THE FOLLOWING: *If bleeding from the puncture site occurs- Apply gentle pressure to site with clean cloth and call your doctor or EMS. * If a knot or lump forms under the skin, increases in size, or causes pain. * If bruising appears to be worsening or moving further down your leg instead of disappearing. * Temperature above 101 F. CARE OF YOUR GROIN INCISION; * Bruising or purple discoloration of the skin near the puncture site is common. * You may shower only, no bathtub bathing for 5 days. Be careful to avoid slipping as your leg may feel stiff. * If a closure device was used on your femoral artery, please see the attached guide regarding care of the device and your leg. * Leave the dressing on, until removed by office staff. CARE OF YOUR WRIST INCISION; * Bruising or purple discoloration of the skin near the puncture site is common. * You may shower. * DO NOT submerge wrist. * Leave dressing on, until removed by office staff.. BELLA ALANIZ MD [facility]S Aug 27, 2018 09:25
--- NOTE | 2018-08-27 09:25 | Discharge Inst-Cardiology ---
Discharge Inst-Cardiac Discharge Medications Continued Medications: Allopurinol (Allopurinol) 300 Mg Tablet 300 MG PO DAILY, TAB Amlodipine Besylate (Amlodipine Besylate) 10 Mg Tablet 10 MG PO DAILY, TAB Aspirin (Aspirin) 81 Mg Tab.chew 81 MG PO DAILY, TAB Atorvastatin Calcium (Atorvastatin Calcium) 40 Mg Tablet 40 MG PO DAILY, TAB Carvedilol (Carvedilol) 6.25 Mg Tablet 6.25 MG PO BID, TAB Clopidogrel Bisulfate (Plavix) 75 Mg Tablet 75 MG PO DAILY, TAB Levothyroxine Sodium (Levothyroxine Sodium) 112 Mcg Tablet 112 MCG PO DAILY, TAB Multivitamin (Daily Multiple Vitamin) 1 Each Tablet 1 TAB PO DAILY, TAB [place] 3 Polyunsat Fatty Acids (Fish Oil 1,000 mg Capsule) 1,000 Mg Cap 1000 MG PO BID, BELLA TAYLOR MD FACP [facility] Aug 27, 2018 09:25
[2018-08-27 10:03] VITALS: BP 144/77
== END 2018-08-27 10:00 | disposition home or self-care (01) ==
LOC: CATH 06:40 → ICU 10:12 → CATH 08-27 10:00
PROVIDERS: ATTEND Internal Medicine Cardiovascular Disease
DX: I25.10 Atherosclerotic heart disease of native coronary artery without angina pectoris (principal); I12.9 Hypertensive chronic kidney disease with stage 1 through stage 4 chronic kidney disease, or unspecified chronic kidney disease; N18.4 Chronic kidney disease, stage 4 (severe); I25.2 Old myocardial infarction; Z95.5 Presence of coronary angioplasty implant and graft; E78.5 Hyperlipidemia, unspecified; E03.9 Hypothyroidism, unspecified; Z87.891 Personal history of nicotine dependence; Z79.899 Other long term (current) drug therapy
CPT/HCPCS: 36415; 80048; 80053; 80061; 85027; 85610; 85730; 87081; 93005; 93455

== ENCOUNTER → 2018-09-25 | Outpatient (CLI) | payer MEDICARE, OTHER ==
[~2018-09-25] MED LIST changes: +ATOR40TA70 PO; +CLOP75TA69 PO
[2018-09-25 10:29] LABS: CALCIUM 9.6 MG/DL (8.5-10.1); CREATININE SERUM 1.72 MG/DL (0.60-1.30)
== END ==
LOC: LAB 10:01
PROVIDERS: ATTEND Internal Medicine Cardiovascular Disease
DX: I25.10 Atherosclerotic heart disease of native coronary artery without angina pectoris (principal); I12.9 Hypertensive chronic kidney disease with stage 1 through stage 4 chronic kidney disease, or unspecified chronic kidney disease; N18.4 Chronic kidney disease, stage 4 (severe)
CPT/HCPCS: 36415; 80048

== ENCOUNTER 2020-09-14 18:22 | Observation (INO) | payer MEDICARE, OTHER ==
[~2020-09-14] VITALS: Ht 175 cm; Wt 96.0 kg
[~2020-09-14 18:22] MED LIST changes: +AMLO-251 PO; -AMLO10TA7 PO; +ATOR80TA64 PO
[2020-09-14 18:36] LABS: BASOPHILS # (AUTO) 0.1 10^3/uL (0.0-0.1); BASOPHILS % (AUTO) 1 % (0-10); EOSINOPHILS # (AUTO) 0.2 10^3/uL (0.0-0.3); EOSINOPHILS % (AUTO) 2 % (0-10); HEMATOCRIT 49 % (40-54); HEMOGLOBIN 15.8 g/dL (13.3-17.7); LYMPHOCYTES # (AUTO) 1.4 10^3/uL (1.0-4.0); LYMPHOCYTES % (AUTO) 16 % (12-44); MEAN CORPUSCULAR HEMOGLOBIN 28 pg (25-34); MEAN CORPUSCULAR HGB CONC 33 g/dL (32-36); MEAN CORPUSCULAR VOLUME 86 fL (80-99); MEAN PLATELET VOLUME 10.4 fL (9.0-12.2); MONOCYTES # (AUTO) 0.8 10^3/uL (0.0-1.0); MONOCYTES % (AUTO) 9 % (0-12); NEUTROPHILS # (AUTO) 6.4 10^3/uL (1.8-7.8); NEUTROPHILS % (AUTO) 72 % (42-75); PLATELET COUNT 264 10^3/uL (130-400); WHITE BLOOD COUNT 8.9 10^3/uL (4.3-11.0)
--- NOTE | 2020-09-14 19:04 | Diagnostic Imaging Report ---
PROCEDURE: CT head and CT cervical spine without contrast. TECHNIQUE: Multiple contiguous axial images were obtained through the brain and cervical spine without the use of intravenous contrast. Sagittal and coronal reformations through the cervical spine were then performed. Auto Exposure Controls were utilized during the CT exam to meet ALARA standards for radiation dose reduction. DATE: October 15, 2020. COMPARISON: MRI brain April 04, 2020. INDICATION: 75-year-old male, trauma. Head and neck pain. FINDINGS: There is soft tissue swelling in the region of the right cheek lateral to the right orbit which could relate to a soft tissue contusion or hematoma. Correlation is needed. There is no identified skull fracture. There are findings of encephalomalacia in the right frontal lobe anteriorly and in the frontoparietal region. There is no hydrocephalus. There is no mass effect or midline shift. There is no acute intracranial hemorrhage. There is no abnormal extra-axial fluid collection. The visualized portions of the paranasal sinuses, mastoid air cells and middle ears are well aerated. There is no facet joint subluxation or dislocation. There are multilevel mild to moderate facet degenerative changes of the cervical spine. There is no asymmetric widening of the cervical disc spaces. There is no prominent prevertebral soft tissue swelling. There is no acute fracture of the cervical spine. There is severe disc height loss at C5-C6 and C6-C7 with posterior disc osteophyte complexes at these levels. CT is limited for the assessment of disc pathology and additional nonbony causes of pathology in the spinal canal. The visualized portions of the lung apices are grossly clear. There are bilateral carotid vascular calcifications. IMPRESSION: 1. No identified acute intracranial abnormality. 2. Soft tissue swelling in the region of the right cheek lateral to the right orbit which may relate to a soft tissue contusion/hematoma. Correlation is needed. 3. No identified acute abnormality of the cervical spine. 4. Disc and facet degenerative changes of the cervical spine. 5. Findings of encephalomalacia in the right frontal lobe anteriorly and in the right frontal parietal region. Dictated by: Dictated on workstation # [id number]
--- NOTE | 2020-09-14 19:14 | ED Neurological Problem ---
General Chief Complaint: Neurological Problems Stated Complaint: SEIZURE/FALL Nursing Triage Note: PT ARRIVED PER EMS, PT HAS C-COLLAR IN PLACE IS AWAKE AND ALERT PT IS ABLE TO ANSWER QUESTIONS APPROPRIATELY. PT HAD FALLEN ON DESK AND HIT SIDE OF FACE HAS BRUISING AND ABRASIONS NOTED. PT DENIES SEIZURE HX. PT HAS SL IN L AC BY EMS. PT DENIES ANY PAIN AT THIS X. EMS REPORTS SEIZURE LASTING SEVERAL MINUTES AND PT BEING POST ICTAL UPON THEIR ARRIVAL TO HIS HOME Nursing Sepsis Screen: No Definite Risk Source: patient Exam Limitations: no limitations History of Present Illness Date Seen by Provider: Sep 14, 2020 Time Seen by Provider: 18:24 Initial Comments This 75-year-old gentleman presents to the emergency room via EMS after his found him to be seizing in their home. He apparently fell and struck his face on a safe. He has contusions and abrasions to the right side of his face. He has no recollection of the event. He is initially postictal but quickly becomes alert and oriented after arrival. He is in a c-collar. His reports that the seizure-like activity lasted at least 20 minutes. Patient has medical history that includes a recent stroke in March of last year. He does not have any prior seizure history. He has chronic right shoulder pain. He denies any other acute pains other than the injuries to the face. Allergies and Home Medications Allergies Coded Allergies: No Known Drug Allergies (Unverified , 12/05/17) Home Medications Allopurinol 300 Mg Tablet, 300 MG PO DAILY, (Reported) Amlodipine Besylate 10 Mg Tablet, 10 MG PO DAILY, (Reported) Aspirin 81 Mg Tab.chew, 81 MG PO DAILY, (Reported) Atorvastatin Calcium 80 Mg Tablet, 80 MG PO DAILY Prescribed by: FILIBERTO HERRERA on 04/04/20 1024 Carvedilol 6.25 Mg Tablet, 6.25 MG PO BID, (Reported) Clopidogrel Bisulfate 75 Mg Tablet, 75 MG PO DAILY, (Reported) Levothyroxine Sodium 112 Mcg Tablet, 112 MCG PO DAILY, (Reported) Multivitamin 1 Each Tablet, 1 TAB PO DAILY, (Reported) [place] 3 Polyunsat Fatty Acids 1,000 Mg Cap, 1,000 MG PO BID, (Reported) Patient Home Medication List Home Medication List Reviewed: Yes Review of Systems Review of Systems Constitutional: no symptoms reported Eyes: No Symptoms Reported Ears, Nose, Mouth, Throat: no symptoms reported Respiratory: no symptoms reported Cardiovascular: no symptoms reported Gastrointestinal: no symptoms reported Genitourinary: no symptoms reported Musculoskeletal: no symptoms reported Skin: no symptoms reported Psychiatric/Neurological: See HPI Endocrine: No Symptoms Reported Past Cemidye-Uetqvf-Dilaut Hx Past Med/Social Hx: Reviewed Nursing Past Med/Soc Hx Patient Social History Alcohol Use: Denies Use Smoking Status: Never a Smoker 2nd Hand Smoke Exposure: No Recent Infectious Disease Expo: No Recent Hopitalizations: No Immunizations Up To Date Tetanus Booster (TDap): Unknown PED Vaccines UTD: Yes Date of Pneumonia Vaccine: Apr 02, 2017 Date of Influenza Vaccine: Apr 02, 2019 Seasonal Allergies Seasonal Allergies: No Past Medical History Surgeries: Yes (hernia, ) Abdominal, CABG, Orthopedic Respiratory: No Cardiac: Yes Coronary Artery Disease, Hypertension Neurological: No Genitourinary: No Gastrointestinal: No Musculoskeletal: No Endocrine: Yes Hypothyroidsim HEENT: No Cataract Cancer: No Psychosocial: No Integumentary: No Family Medical History Cardiovascular disease 19 FATHER 19 MOTHER (CONGESTIVE HEART FAILURE) Diabetes mellitus 19 MOTHER FH: breast cancer 19 MOTHER Myocardial infarction 19 FATHER Heart Disease, Cancer Physical Exam Vital Signs Vital Signs - First Documented 09/14/20 18:25 Temp 35.9 Pulse 72 Resp 16 B/P (MAP) 146/77 (100) Pulse Ox 96 O2 Delivery Room Air Capillary Refill : Less Than 3 Seconds Height, Weight, BMI Height: 5'9.00" Weight: 200lbs. 0.0oz. 90.936201pa; 30.00 BMI Method:Stated General Appearance: WD/WN, no apparent distress HEENT: PERRL/EOMI, other (Abrasions and contusions to the right side of the face) Neck: non-tender, normal inspection, other (C-collar) Respiratory: lungs clear, normal breath sounds, no respiratory distress Cardiovascular: regular rate, rhythm, no edema, no murmur Gastrointestinal: non tender, soft Extremities: normal inspection, no pedal edema Neurologic/Psychiatric: ink printer II-XII nml as tested, no motor/sensory deficits, alert, normal mood/affect, oriented x 3 Crainal Nerves: normal hearing, normal speech, PERRL Coordination/Gait: normal finger to nose Motor/Sensory: no motor deficit, no sensory deficit Skin: normal color, warm/dry, other (Contusions and abrasions to the right face) Stroke Stroke Thrombolytic Exclusion Age 18 or Over: No Intracranial Neoplasm/Aneurysm: No Recent CPR: No Diabetic Hemorrhagic Retinopat: No Recent Obstetric Delivery: No Significant Hepatic Dysfunctio: No Improving Symptoms: Yes Progress/Results/Core Measures Results/Orders Lab Results Laboratory Tests Test 09/14/20 18:30 Range/Units White Blood Count 8.9 4.3-11.0 10^3/uL Red Blood Count 5.64 H 4.30-5.52 10^6/uL Hemoglobin 15.8 13.3-17.7 g/dL Hematocrit 49 40-54 % Mean Corpuscular Volume 86 80-99 fL Mean Corpuscular Hemoglobin 28 25-34 pg Mean Corpuscular Hemoglobin Concent 33 32-36 g/dL Red Cell Distribution Width 14.4 10.0-14.5 % Platelet Count 264 130-400 10^3/uL Mean Platelet Volume 10.4 9.0-12.2 fL Immature Granulocyte % (Auto) 1 % Neutrophils (%) (Auto) 72 42-75 % Lymphocytes (%) (Auto) 16 12-44 % Monocytes (%) (Auto) 9 0-12 % Eosinophils (%) (Auto) 2 0-10 % Basophils (%) (Auto) 1 0-10 % Neutrophils # (Auto) 6.4 1.8-7.8 10^3/uL Lymphocytes # (Auto) 1.4 1.0-4.0 10^3/uL Monocytes # (Auto) 0.8 0.0-1.0 10^3/uL Eosinophils # (Auto) 0.2 0.0-0.3 10^3/uL Basophils # (Auto) 0.1 0.0-0.1 10^3/uL Immature Granulocyte # (Auto) 0.1 0.0-0.1 10^3/uL Sodium Level 138 135-145 MMOL/L Potassium Level 4.9 3.6-5.0 MMOL/L Chloride Level 105 98-107 MMOL/L Carbon Dioxide Level 17 L 21-32 MMOL/L Anion Gap 16 H 5-14 MMOL/L Blood Urea Nitrogen 24 H 7-18 MG/DL Creatinine 1.85 H 0.60-1.30 MG/DL Estimat Glomerular Filtration Rate 36 BUN/Creatinine Ratio 13 Glucose Level 131 H 70-105 MG/DL Calcium Level 9.1 8.5-10.1 MG/DL Corrected Calcium 9.3 8.5-10.1 MG/DL Magnesium Level 2.3 1.6-2.4 MG/DL Total Bilirubin 0.5 0.1-1.0 MG/DL Aspartate Amino Transf (AST/SGOT) 25 5-34 U/L Alanine Aminotransferase (ALT/SGPT) 29 0-55 U/L Alkaline Phosphatase 126 40-136 U/L Total Creatine Kinase 62 30-200 U/L Myoglobin 273.4 H 10.0-92.0 NG/ML Troponin I < 0.028 <0.028 NG/ML Total Protein 6.8 6.4-8.2 GM/DL Albumin 3.8 3.2-4.5 GM/DL Thyroid Stimulating Hormone (TSH) 4.74 0.35-4.94 UIU/ML Free Thyroxine 1.00 0.70-1.48 NG/DL My Orders Orders - SHEN CLEANING MD Cbc With Automated Diff (09/14/20 18:31) Comprehensive Metabolic Panel (09/14/20 18:31) Magnesium (09/14/20 18:31) Ua Culture If Indicated (09/14/20 18:31) Ed Iv/Invasive Line Start (09/14/20 18:31) Ekg Tracing (09/14/20 18:31) Monitor-Rhythm Ecg Trace Only (09/14/20 18:31) Ct Head/Cervical Spine Wo (09/14/20 18:31) Troponin I (09/14/20 18:35) Thyroid Stimulating Hormone (09/14/20 18:35) Free T4 (Free Thyroxine) (09/14/20 18:35) Creatine Kinase (09/14/20 18:44) Myoglobin Serum (09/14/20 18:44) Ns Iv 1000 Ml (Sodium Chloride 0.9%) (09/14/20 19:30) Levetiracetam Injection (Keppra Injectio (09/14/20 20:30) Medications Given in ED Current Medications Medications Dose Ordered Sig/Lisa Route Start Time Stop Time Status Last Admin Dose Admin Levetiracetam 500 mg/Sodium Chloride 105 ml @ 210 mls/hr ONCE ONCE IV 09/14/20 20:30 09/14/20 20:59 DC 09/14/20 20:50 210 MLS/HR Vital Signs/I&O 09/14/20 18:25 Temp 35.9 Pulse 72 Resp 16 B/P (MAP) 146/77 (100) Pulse Ox 96 O2 Delivery Room Air Blood Pressure Mean: 100 Progress Progress Note : Progress Note Patient received a liter of IV fluid ad Keppra 500 mg IV because of the prolonged seizure-like activity and new onset of seizure, admission was deemed most appropriate. C-collar was cleared after review of CT scan report. Initial ECG Impression Date: Sep 14, 2020 Initial ECG Impression Time: 18:32 Initial ECG Rate: 71 Initial ECG Rhythm: Normal Sinus Initial ECG Intervals: Normal Initial ECG Impression: Normal Comment Normal sinus rhythm with no ST elevation or depression. No abnormal intervals or axis deviation. Diagnostic Imaging Diagonstic Imaging: CT Plain Films/CT/US/NM/MRI: c-spine, head Comments CT head and cervical spine reviewed by me and report reviewed. See report below: NAME: ALAN CHURCH [facility] REC#: [id number] PT STATUS: REG ER : 1945 PHYSICIAN: SHEN CLEANING MD ADMIT DATE: 09/14/20/ER *Draft Date of Exam:09/14/20 CT HEAD/CERVICAL SPINE WO PROCEDURE: CT head and CT cervical spine without contrast. TECHNIQUE: Multiple contiguous axial images were obtained through the brain and cervical spine without the use of intravenous contrast. Sagittal and coronal reformations through the cervical spine were then performed. Auto Exposure Controls were utilized during the CT exam to meet ALARA standards for radiation dose reduction. DATE: October 15, 2020. COMPARISON: MRI brain April 04, 2020. INDICATION: 75-year-old male, trauma. Head and neck pain. FINDINGS: There is soft tissue swelling in the region of the right cheek lateral to the right orbit which could relate to a soft tissue contusion or hematoma. Correlation is needed. There is no identified skull fracture. There are findings of encephalomalacia in the right frontal lobe anteriorly and in the frontoparietal region. There is no hydrocephalus. There is no mass effect or midline shift. There is no acute intracranial hemorrhage. There is no abnormal extra-axial fluid collection. The visualized portions of the paranasal sinuses, mastoid air cells and middle ears are well aerated. There is no facet joint subluxation or dislocation. There are multilevel mild to moderate facet degenerative changes of the cervical spine. There is no asymmetric widening of the cervical disc spaces. There is no prominent prevertebral soft tissue swelling. There is no acute fracture of the cervical spine. There is severe disc height loss at C5-C6 and C6-C7 with posterior disc osteophyte complexes at these levels. CT is limited for the assessment of disc pathology and additional nonbony causes of pathology in the spinal canal. The visualized portions of the lung apices are grossly clear. There are bilateral carotid vascular calcifications. IMPRESSION: 1. No identified acute intracranial abnormality. 2. Soft tissue swelling in the region of the right cheek lateral to the right orbit which may relate to a soft tissue contusion/hematoma. Correlation is needed. 3. No identified acute abnormality of the cervical spine. 4. Disc and facet degenerative changes of the cervical spine. 5. Findings of encephalomalacia in the right frontal lobe anteriorly and in the right frontal parietal region. Dictated on workstation # [id number] Dict: 09/14/20 1857 Trans: 09/14/20 190 [facility] [id number] Interpreted by: STEPHAN GUERRERO MD Departure Communication (Admissions) Time/Spoke to Admitting Phy: 20:25 Dr. Claire Time/Spoke to Consulting Phy: 20:30 Dr. Becerra Impression Primary Impression: New onset seizure Additional Impressions: Facial contusion Qualified Codes: S00.83XA - Contusion of other part of head, initial encounter Fall on same level Qualified Codes: W18.30XA - Fall on same level, unspecified, initial encounter History of stroke Disposition: ADMITTED INPATIENT Condition: Improved Admissions Decision to Admit Reason: Admit from ER (General) Decision to Admit/Date: Sep 14, 2020 Time/Decision to Admit Time: 19:00 Departure-Patient Inst. Decision time for Depature: 20:57 Referrals: [facility] (PCP) Primary Care Physician ALPA MCKEON (Family) Primary Care Physician Add. Discharge Instructions: All discharge instructions reviewed with patient and/or family. Voiced understanding. SHEN CLEANING MD Sep 14, 2020 19:14
[2020-09-14 19:19] LABS: ALBUMIN 3.8 GM/DL (3.2-4.5); BILIRUBIN,TOTAL 0.5 MG/DL (0.1-1.0); CALCIUM 9.1 MG/DL (8.5-10.1); CREATININE SERUM 1.85 MG/DL (0.60-1.30); MAGNESIUM 2.3 MG/DL (1.6-2.4); POTASSIUM 4.9 MMOL/L (3.6-5.0); TOTAL PROTEIN 6.8 GM/DL (6.4-8.2)
[2020-09-14] MEDS ORDERED: NS IV 1000 ML 1,000 ML IV ONE (19:30)
[2020-09-14] MEDS ORDERED: LEVETIRACETAM INJECTION 500 MG in NS (IVPB) 100 ML IV ONE (20:30)
[2020-09-14] MEDS ORDERED: SULF1TAB35 PO (21:00)
[2020-09-14] MEDS ORDERED: ONDANSETRON 4 MG/2 ML (SDV) Z0FRAN IV PRN (22:45)
[2020-09-14] MEDS ORDERED: LORazepam INJ 2 MG/ML (ATIVAN) VIAL IV PRN (22:45)
[2020-09-14] MEDS ORDERED: CATHETER FLUSH 10 ML SYR IV PRN (22:45)
[2020-09-15] VITALS: BP 143/73
[2020-09-15 03:50] VITALS: BP 155/73
[2020-09-15] MEDS ORDERED: CATHETER FLUSH 10 ML SYR IV SCH (06:00)
[2020-09-15 06:27] LABS: CALCIUM 8.5 MG/DL (8.5-10.1); CREATININE SERUM 1.67 MG/DL (0.60-1.30); POTASSIUM 3.7 MMOL/L (3.6-5.0)
--- NOTE | 2020-09-15 07:39 | Consultation - Surgery ---
ANIKA COLON MED STUDENT 09/15/20 0739: History of Present Illness History of Present Illness Patient Consulted On(jeremie/time) 09/15/20 07:34 Date Seen by Provider: Sep 15, 2020 Time Seen by Provider: 07:25 History of Present Illness Surgery service consulted due to patient fall with head trauma. Patient reports being in the kitchen at home yesterday late afternoon. Was having some numbness and tingling sensation in his hands. He attempted to open a bottle of ASA and was unable to do so. He proceeded to walk to his home office where he apparently fell and hit the right side of his head/face on his desk. He reports loosing consciousness and his states his arms and legs were violently shaking and he was unresponisve. EMS was called by his and he was transported to the ED at [facility]. He remembers awakening in the ambulance, but cannot recall anything before that. Currently he denies headache, blurry vision, double vision, nausea, vomiting, abdominal pain, chest pain, SOB, and diarrhea. He states that he's feeling fine. He's tolerating po clear liquids well. Voiding without difficulty. Reports his gait is steady. 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 CT head and c spine negative for acute intracranial and c spine injury. Allergies and Home Medications Allergies Coded Allergies: No Known Drug Allergies (Unverified , 12/05/17) Home Medications Allopurinol 100 Mg Tablet, 50 MG PO DAILY, (Reported) TAKES OF A 100MG TAB Amlodipine Besylate 10 Mg Tablet, 10 MG PO DAILY, (Reported) Aspirin 81 Mg Tab.chew, 81 MG PO DAILY, (Reported) Atorvastatin Calcium 80 Mg Tablet, 80 MG PO DAILY, (Reported) Carvedilol 6.25 Mg Tablet, 6.25 MG PO BID, (Reported) Clopidogrel Bisulfate 75 Mg Tablet, 75 MG PO DAILY, (Reported) Levetiracetam 500 Mg Tablet, 500 MG PO BID Prescribed by: DANIELLE BE on 09/15/20 1248 Levothyroxine Sodium 112 Mcg Tablet, 112 MCG PO DAILY, (Reported) Multivitamin 1 Each Tablet, 1 EACH PO DAILY, (Reported) [place] 3 Polyunsat Fatty Acids 1,000 Mg Cap, 1,000 MG PO BID, (Reported) Patient Home Medication List Home Medication List Reviewed: Yes Past Grxawoz-Ywdjen-Hsxqyo Hx Patient Social History Smoking Status: Former Smoker 2nd Hand Smoke Exposure: No Recent Hopitalizations: No Alcohol Use?: No Have you traveled recently?: No Immunizations Up To Date Tetanus Booster (TDap): Unknown PED Vaccines UTD: Yes Date of Pneumonia Vaccine: Apr 02, 2017 Date of Influenza Vaccine: Apr 02, 2019 Seasonal Allergies Seasonal Allergies: No Surgeries History of Surgeries: Yes (hernia, ) Surgeries: Abdominal, CABG, Coronary Stent, Orthopedic (left elbow bicep tendon repair) Respiratory History of Respiratory Disorde: No Cardiovascular History of Cardiac Disorders: Yes Cardiac Disorders: Coronary Artery Disease, Hypertension Neurological History of Neurological Disord: No Neurological Disorders: Stroke (CVA march 2020) Genitourinary History of Genitourinary Disor: No Gastrointestinal History of Gastrointestinal Di: No Musculoskeletal History of Musculoskeletal Dis: No Endocrine History of Endocrine Disorders: Yes Endocrine Disorders: Hypothyroidsim HEENT History of HEENT Disorders: No HEENT Disorders: Cataract Loss of Vision: Denies Hearing Impairment: Denies Cancer History of Cancer: No Psychosocial History of Psychiatric Problem: No Integumentary History of Skin or Integumenta: No Family Medical History Significant Family History: Heart Disease, Cancer Family Medial History: Cardiovascular disease 19 FATHER 19 MOTHER (CONGESTIVE HEART FAILURE) Diabetes mellitus 19 MOTHER FH: breast cancer 19 MOTHER Myocardial infarction 19 FATHER Review of Systems-General Constitutional: No chills, No diaphoresis, No dizziness, No fever, No weakness EENTM: No hearing loss, No ear pain, No blurred vision, No double vision, No vision loss Respiratory: No cough, No dyspnea on exertion, No hemoptysis, No short of breath Cardiovascular: No chest pain, No edema, No palpitations Gastrointestinal: No abdominal pain, No constipation, No diarrhea, No nausea, No vomiting Genitourinary: No dysuria, No frequency Musculoskeletal: No back pain, No joint pain Skin: No change in color, No change in hair/nails Psychiatric/Neurological: Denies Anxiety, Denies Depressed, Denies Headache, Denies Numbness; Seizure (possible seizure activity yesterday); Denies Tremors; Weakness (mild weakness/numbness left hand) All Other Systems Reviewed Negative Unless Noted: Yes Physical Exam-General Problems Physical Exam Vital Signs Vital Signs - First Documented 09/14/20 18:25 Temp 35.9 Pulse 72 Resp 16 B/P (MAP) 146/77 (100) Pulse Ox 96 O2 Delivery Room Air Capillary Refill : Less Than 3 Seconds General Appearance: WD/WN, no apparent distress Eyes: Bilateral Eye PERRL, Bilateral Eye EOMI HEENT: PERRL/EOMI, pharynx normal Neck: non-tender, supple Respiratory: chest non-tender, lungs clear, normal breath sounds, no respiratory distress Cardiovascular: normal peripheral pulses, regular rate, rhythm, no edema Peripheral Pulses: 2+ Dorsalis Pedis (R), 2+ Left Dors-Pedis (L), 2+ Radial Pulses (R), 2+ Radial Pulses (L) Gastrointestinal: normal bowel sounds, non tender, soft; No distended, No guarding, No rebound Rectal: deferred Back: normal inspection, no CVA tenderness, no vertebral tenderness Extremities: normal range of motion, non-tender, no pedal edema, no calf tenderness, normal capillary refill Neurologic/Psychiatric: alert, normal mood/affect, oriented x 3 Skin: warm/dry, ecchymosis (lateral and superior to Right orbit as well as around lower eye lid right side) Lymphatic: no adenopathy Data Review Labs Laboratory Tests 09/14/20 18:30: White Blood Count 8.9, Red Blood Count 5.64H, Hemoglobin 15.8, Hematocrit 49, Me an Corpuscular Volume 86, Mean Corpuscular Hemoglobin 28, Mean Corpuscular Hemoglobin Concent 33, Red Cell Distribution Width 14.4, Platelet Count 264, Mean Platelet Volume 10.4, Immature Granulocyte % (Auto) 1, Neutrophils (%) (Auto) 72, Lymphocytes (%) (Auto) 16, Monocytes (%) (Auto) 9, Eosinophils (%) (Auto) 2, Basophils (%) (Auto) 1, Neutrophils # (Auto) 6.4, Lymphocytes # (Auto) 1.4, Monocytes # (Auto) 0.8, Eosinophils # (Auto) 0.2, Basophils # (Auto) 0.1, Immature Granulocyte # (Auto) 0.1, Sodium Level 138, Potassium Level 4.9, Chloride Level 105, Carbon Dioxide Level 17L, Anion Gap 16H, Blood Urea Nitrogen 24H, Creatinine 1.85H, Estimat Glomerular Filtration Rate 36, BUN/Creatinine Ratio 13, Glucose Level 131H, Calcium Level 9.1, Corrected Calcium 9.3, Magnesium Level 2.3, Total Bilirubin 0.5, Aspartate Amino Transf (AST/SGOT) 25, Alanine Aminotransferase (ALT/SGPT) 29, Alkaline Phosphatase 126, Total Creatine Kinase 62, Myoglobin 273.4H, Troponin I < 0.028, Total Protein 6.8, Albumin 3.8, Thyroid Stimulating Hormone (TSH) 4.74, Free Thyroxine 1.00 09/15/20 05:51: Sodium Level 142, Potassium Level 3.7, Chloride Level 112H, Carbon Dioxide Level 21, Anion Gap 9, Blood Urea Nitrogen 21H, Creatinine 1.67H, Estimat Glomerular Filtration Rate 40, BUN/Creatinine Ratio 13, Glucose Level 69L, Calcium Level 8.5 Radiology NAME: ALAN CHURCH [facility] REC#: [id number] PT STATUS: REG ER : 1945 PHYSICIAN: SHEN CLEANING MD ADMIT DATE: 09/14/20/ER Signed Date of Exam:09/14/20 CT HEAD/CERVICAL SPINE WO PROCEDURE: CT head and CT cervical spine without contrast. TECHNIQUE: Multiple contiguous axial images were obtained through the brain and cervical spine without the use of intravenous contrast. Sagittal and coronal reformations through the cervical spine were then performed. Auto Exposure Controls were utilized during the CT exam to meet ALARA standards for radiation dose reduction. DATE: October 15, 2020. COMPARISON: MRI brain April 04, 2020. INDICATION: 75-year-old male, trauma. Head and neck pain. FINDINGS: There is soft tissue swelling in the region of the right cheek lateral to the right orbit which could relate to a soft tissue contusion or hematoma. Correlation is needed. There is no identified skull fracture. There are findings of encephalomalacia in the right frontal lobe anteriorly and in the frontoparietal region. There is no hydrocephalus. There is no mass effect or midline shift. There is no acute intracranial hemorrhage. There is no abnormal extra-axial fluid collection. The visualized portions of the paranasal sinuses, mastoid air cells and middle ears are well aerated. There is no facet joint subluxation or dislocation. There are multilevel mild to moderate facet degenerative changes of the cervical spine. There is no asymmetric widening of the cervical disc spaces. There is no prominent prevertebral soft tissue swelling. There is no acute fracture of the cervical spine. There is severe disc height loss at C5-C6 and C6-C7 with posterior disc osteophyte complexes at these levels. CT is limited for the assessment of disc pathology and additional nonbony causes of pathology in the spinal canal. The visualized portions of the lung apices are grossly clear. There are bilateral carotid vascular calcifications. IMPRESSION: 1. No identified acute intracranial abnormality. 2. Soft tissue swelling in the region of the right cheek lateral to the right orbit which may relate to a soft tissue contusion/hematoma. Correlation is needed. 3. No identified acute abnormality of the cervical spine. 4. Disc and facet degenerative changes of the cervical spine. 5. Findings of encephalomalacia in the right frontal lobe anteriorly and in the right frontal parietal region. Dictated by: Dictated on workstation # [id number] Dict: 09/14/[id number] Trans: 09/14/201920 [facility] [id number] Interpreted by: STEPHAN GUERRERO MD Electronically signed by: STEPHAN GUERRERO MD 09/14/201920 Assessment/Plan Assessment/Plan Assessment/Plan S/P fall Right sided facial contusion Seizure, new onset History CVA CAD HTN Hypothyroidism Neuro checks Vitals signs per protocol Fall precautions Diet as tolerated Continue conservative management CT head and C spine negative for acute intracranial abnormality and negative for acute c spine abnormality DANIEL LEMON DO 09/15/20 1523: History of Present Illness History of Present Illness History of Present Illness Consult requested for fall with head trauma. Patient is a 75 year old male was found on the floor. It was felt he may be having a seizure. He struck his right side of face by right orbit. He believes he lost consciousness. He has is feeling okay today. No neurological deficits. He reports history of stroke with no significant deficits. Denies n/v fever sweats chills shortness of breath or chest pain at this time. Had ct head/neck no acute abnormality, edema around right orbit/hematoma. Allergies and Home Medications Allergies Coded Allergies: No Known Drug Allergies (Unverified , 12/05/17) Home Medications Allopurinol 100 Mg Tablet, 50 MG PO DAILY, (Reported) TAKES OF A 100MG TAB Amlodipine Besylate 10 Mg Tablet, 10 MG PO DAILY, (Reported) Aspirin 81 Mg Tab.chew, 81 MG PO DAILY, (Reported) Atorvastatin Calcium 80 Mg Tablet, 80 MG PO DAILY, (Reported) Carvedilol 6.25 Mg Tablet, 6.25 MG PO BID, (Reported) Clopidogrel Bisulfate 75 Mg Tablet, 75 MG PO DAILY, (Reported) Levetiracetam 500 Mg Tablet, 500 MG PO BID Prescribed by: DANIELLE BE on 09/15/20 1248 Levothyroxine Sodium 112 Mcg Tablet, 112 MCG PO DAILY, (Reported) Multivitamin 1 Each Tablet, 1 EACH PO DAILY, (Reported) [place] 3 Polyunsat Fatty Acids 1,000 Mg Cap, 1,000 MG PO BID, (Reported) Patient Home Medication List Home Medication List Reviewed: Yes Past Oisiuht-Jpxcsw-Keirsb Hx Reviewed Nursing Assessment Reviewed/Agree w Nursing PMH: Yes Family Medical History Significant Family History: No Pertinent Family Hx Family Medial History: Cardiovascular disease 19 FATHER 19 MOTHER (CONGESTIVE HEART FAILURE) Diabetes mellitus 19 MOTHER FH: breast cancer 19 MOTHER Myocardial infarction 19 FATHER Review of Systems-General Constitutional: No chills, No diaphoresis, No dizziness, No fever, No weakness EENTM: No hearing loss, No ear pain, No blurred vision, No double vision, No vision loss Respiratory: No cough, No dyspnea on exertion, No hemoptysis, No short of breath Cardiovascular: No chest pain, No edema, No palpitations Gastrointestinal: No abdominal pain, No constipation, No diarrhea, No nausea, No vomiting Genitourinary: No dysuria, No frequency Musculoskeletal: No back pain, No joint pain Skin: No change in color, No change in hair/nails Psychiatric/Neurological: Denies Anxiety, Denies Depressed, Denies Headache, D enies Numbness; Seizure (possible seizure activity yesterday); Denies Tremors; Weakness (mild weakness/numbness left hand) All Other Systems Reviewed Negative Unless Noted: Yes Assessment/Plan Assessment/Plan Assessment/Plan S/P fall Right sided facial contusion Seizure, new onset History CVA CAD HTN Hypothyroidism Neuro checks Vitals signs per protocol Fall precautions Diet as tolerated Continue conservative management CT head and C spine negative for acute intracranial abnormality and negative for acute c spine abnormality Supervisory-Addendum Brief Verification & Attestation Participated in pt care: history, MDM, physical Personally performed: exam, history, MDM, supervision of care Care discussed with: Medical Student Procedures: n/a Results interpretation: Verified all documentation Verification and Attestation of Medical Student E/M Service A medical student performed and documented this service in my presence. I reviewed and verified all information documented by the medical student and made modifications to such information, when appropriate. I personally performed the physical exam and medical decision making. Daniel Lemon, Sep 15, 2020,15:23 ANIKA COLON MED STUDENT Sep 15, 2020 07:39 DANIEL LEMON DO Sep 15, 2020 15:23
[2020-09-15 07:47] LABS: BILIRUBIN,URINE NEGATIVE (NEGATIVE); CLARITY,URINE CLEAR; COLOR,URINE YELLOW; GLUCOSE, URINE (UA) NEGATIVE (NEGATIVE); KETONES,URINE NEGATIVE (NEGATIVE); LEUKOCYTE ESTERASE ,URINE NEGATIVE (NEGATIVE); NITRITE,URINE NEGATIVE (NEGATIVE); PROTEIN,URINE NEGATIVE (NEGATIVE)
[2020-09-15 07:56] LABS: BACTERIA,URINE NEGATIVE /HPF; RBC,URINE RARE /HPF; SQUAMOUS EPITHELIAL CELL,UR RARE /HPF; URINE OTHER FEW SPERM /HPF
[2020-09-15 08:00] VITALS: BP 148/73
[2020-09-15] MEDS ORDERED: LEVETIRACETAM 500 MG (KEPPRA) TAB PO SCH (09:00)
[2020-09-15] MEDS ORDERED: MULT-1136 PO (09:53)
[2020-09-15] MEDS ORDERED: ALLO100T PO (09:53)
[2020-09-15] MEDS ORDERED: ATOR80TA76 PO (09:53)
[2020-09-15] MEDS ORDERED: CLOP75TA28 PO (09:53)
[2020-09-15 11:45] VITALS: BP 164/74
--- NOTE | 2020-09-15 12:47 | Short Stay Summary ---
HPI History of Present Illness: 75 yo M that presented after having Sz at home and falling and has head injury. Patient remembers his arms getting tingling then he remembered waking up in the ER. states that she heard him hit the ground and then states that he had about 20-25 mins of sz like activity prior to EMS arriving. Patient had stroke at the end of last year. Denies any previous h/o Sz. Denies any previous trauma to head. States that he felt find prior to this event. Denies any chest pain or shortness of breath. No sz like activity ON. Source: patient, RN/MD Exam Limitations: no limitations Date seen by provider: Sep 15, 2020 Time Seen by Provider: 10:05 Attending Physician Danielle Be MD [facility] Consult Date of Admission Sep 14, 2020 at 20:35 Home Medications Home Medications Reviewed patient Home Medication Reconciliation performed by pharmacy medication reconciliations bioprocessing manufacturing technician and/or nursing. Patients Allergies have been reviewed. Allergies Coded Allergies: No Known Drug Allergies (Unverified , 12/05/17) RPB-Vjuqcb-Dfzthk Hx Patient Social History Living Status: at home with Smoking Status: Former Smoker 2nd Hand Smoke Exposure: No Recent Hopitalizations: No Alcohol Use?: No Have you traveled recently?: No Immunizations Up To Date Tetanus Booster (TDap): Unknown Date of Pneumonia Vaccine: Apr 02, 2017 Date of Influenza Vaccine: Apr 02, 2019 Past Medical History CVA 2019 HTN Hypothyroidism CKD Family Medical History Significant Family History: Heart Disease, Cancer Family History: Cardiovascular disease 19 FATHER 19 MOTHER (CONGESTIVE HEART FAILURE) Diabetes mellitus 19 MOTHER FH: breast cancer 19 MOTHER Myocardial infarction 19 FATHER Review of Systems ([facility]) Constitutional: No chills, No dizziness, No fever; malaise EENTM: eye pain; No mouth pain, No nose pain Respiratory: no symptoms reported; No cough, No dyspnea on exertion, No short of breath Cardiovascular: no symptoms reported; No chest pain, No edema, No palpitations Gastrointestinal: no symptoms reported; No abdominal pain, No constipation, No diarrhea, No nausea, No vomiting Genitourinary: no symptoms reported; No dysuria, No frequency, No hematuria Musculoskeletal: muscle pain, muscle stiffness Skin: lesions, other (brusing over right eye) Psychiatric/Neurological: Headache; Denies Numbness, Denies Tremors, Denies Weakness Reviewed Test Results Reviewed Test Results Lab Laboratory Tests Test 09/15/20 05:51 09/15/20 07:39 Range/Units Sodium Level 142 135-145 MMOL/L Potassium Level 3.7 3.6-5.0 MMOL/L Chloride Level 112 H 98-107 MMOL/L Carbon Dioxide Level 21 21-32 MMOL/L Anion Gap 9 5-14 MMOL/L Blood Urea Nitrogen 21 H 7-18 MG/DL Creatinine 1.67 H 0.60-1.30 MG/DL Estimat Glomerular Filtration Rate 40 BUN/Creatinine Ratio 13 Glucose Level 69 L 70-105 MG/DL Calcium Level 8.5 8.5-10.1 MG/DL Urine Color YELLOW Urine Clarity CLEAR Urine pH 6.0 5-9 Urine Specific [place] 1.025 H 1.016-1.022 Urine Protein NEGATIVE NEGATIVE Urine Glucose (UA) NEGATIVE NEGATIVE Urine Ketones NEGATIVE NEGATIVE Urine Nitrite NEGATIVE NEGATIVE Urine Bilirubin NEGATIVE NEGATIVE Urine Urobilinogen 0.2 < = 1.0 MG/DL Urine Leukocyte Esterase NEGATIVE NEGATIVE Urine RBC (Auto) NEGATIVE NEGATIVE Urine RBC RARE /HPF Urine WBC NONE /HPF Urine Squamous Epithelial Cells RARE /HPF Urine Crystals NONE /LPF Urine Bacteria NEGATIVE /HPF Urine Casts NONE /LPF Urine Mucus NEGATIVE /LPF Urine Other FEW SPERM H /HPF Urine Culture Indicated NO Radiology NAME: ALAN CUHRCH [facility] REC#: [id number] PT STATUS: REG ER : 1945 PHYSICIAN: SHEN CLEANING MD ADMIT DATE: 09/14/20/ER Signed Date of Exam:09/14/20 CT HEAD/CERVICAL SPINE WO PROCEDURE: CT head and CT cervical spine without contrast. TECHNIQUE: Multiple contiguous axial images were obtained through the brain and cervical spine without the use of intravenous contrast. Sagittal and coronal reformations through the cervical spine were then performed. Auto Exposure Controls were utilized during the CT exam to meet ALARA standards for radiation dose reduction. DATE: October 15, 2020. COMPARISON: MRI brain April 04, 2020. INDICATION: 75-year-old male, trauma. Head and neck pain. FINDINGS: There is soft tissue swelling in the region of the right cheek lateral to the right orbit which could relate to a soft tissue contusion or hematoma. Correlation is needed. There is no identified skull fracture. There are findings of encephalomalacia in the right frontal lobe anteriorly and in the frontoparietal region. There is no hydrocephalus. There is no mass effect or midline shift. There is no acute intracranial hemorrhage. There is no abnormal extra-axial fluid collection. The visualized portions of the paranasal sinuses, mastoid air cells and middle ears are well aerated. There is no facet joint subluxation or dislocation. There are multilevel mild to moderate facet degenerative changes of the cervical spine. There is no asymmetric widening of the cervical disc spaces. There is no prominent prevertebral soft tissue swelling. There is no acute fracture of the cervical spine. There is severe disc height loss at C5-C6 and C6-C7 with posterior disc osteophyte complexes at these levels. CT is limited for the assessment of disc pathology and additional nonbony causes of pathology in the spinal canal. The visualized portions of the lung apices are grossly clear. There are bilateral carotid vascular calcifications. IMPRESSION: 1. No identified acute intracranial abnormality. 2. Soft tissue swelling in the region of the right cheek lateral to the right orbit which may relate to a soft tissue contusion/hematoma. Correlation is needed. 3. No identified acute abnormality of the cervical spine. 4. Disc and facet degenerative changes of the cervical spine. 5. Findings of encephalomalacia in the right frontal lobe anteriorly and in the right frontal parietal region. Dictated by: Dictated on workstation # [id number] Dict: 09/14/201856 Trans: 09/14/201920 [facility] [id number] Interpreted by: STEPHAN GUERRERO MD Electronically signed by: STEPHAN GUERRERO MD 09/14/201920 Physical Exam-([facility]) Physical Exam Vital Signs VS - Last 72 Hours, by Label 09/14/20 09/14/20 09/14/20 09/15/20 18:25 22:30 23:22 00:00 Temp 35.9 36.1 36.6 Pulse 72 71 61 Resp 16 17 20 B/P (MAP) 146/77 (100) 134/69 (100) 143/73 (96) Pulse Ox 96 94 92 O2 Delivery Room Air Room Air Room Air 09/15/20 09/15/20 09/15/20 09/15/20 03:50 05:58 08:00 08:00 Temp 36.4 37.1 Pulse 62 62 60 Resp 20 16 B/P (MAP) 155/73 (100) 148/73 (98) Pulse Ox 95 92 92 O2 Delivery Room Air Room Air 09/15/20 11:45 Temp 36.8 Pulse 55 Resp 18 B/P (MAP) 164/74 (104) Pulse Ox 94 O2 Delivery Room Air Capillary Refill : Less Than 3 Seconds General Appearance: WD/WN, no apparent distress HEENT: PERRL/EOMI Neck: non-tender, full range of motion, supple Respiratory: chest non-tender, lungs clear, normal breath sounds, no respiratory distress, no accessory muscle use Cardiovascular: normal peripheral pulses, regular rate, rhythm, no edema, no murmur Gastrointestinal: normal bowel sounds, non tender, soft Back: no CVA tenderness, no vertebral tenderness Extremities: normal range of motion, non-tender, no pedal edema, no calf tenderness, normal capillary refill 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, alert, normal mood/affect, oriented x 3 Skin: ecchymosis (Over right eye) Lymphatic: no adenopathy Short Stay Diagnosis Discharge Diagnosis-Short Stay Admission Diagnosis See problem list Final Discharge Diagnosis See problem Conclusion Plan See problem list Was the Problem List Reviewed?: Yes Copy Copies To 1: Raúl SIMMONS Assessment/Plan Assessment/Plan Admission Status: Observation (1) New onset seizure Status: Acute Assessment & Plan: - Will start Keppra for sz ppx, Will need level in 1-2 weeks, No driving (2) Facial contusion Status: Acute Assessment & Plan: - Routine wound care Qualifiers: Qualified Codes: S00.83XA - Contusion of other part of head, initial encounter (3) History of stroke Status: Acute (4) CKD STAGE 4 Status: Chronic Assessment & Plan: - Seems to be at baseline (5) HTN (hypertension) Status: Chronic Assessment & Plan: - Continue home meds Qualifiers: Qualified Codes: I10 - Essential (primary) hypertension (6) CAD (coronary artery disease) Status: Chronic Qualifiers: Qualified Codes: I25.10 - Atherosclerotic heart disease of redding coronary artery without angina pectoris DANIELLE BE MD Sep 15, 2020 12:47
[2020-09-15] MEDS ORDERED: LEVE500T6 PO (12:48)
--- NOTE | 2020-09-15 12:49 | Discharge Summary ---
Discharge [facility] Reconcile Patient Problems Problems Reviewed?: Yes Discharge Medications New, Converted or Re-Newed RX: Transmitted to Pharmacy New Medications: Levetiracetam (Levetiracetam) 500 Mg Tablet 500 MG PO BID, #60 TAB Continued Medications: Allopurinol (Allopurinol) 100 Mg Tablet 50 MG PO DAILY, TAB TAKES OF A 100MG TAB Amlodipine Besylate (Amlodipine Besylate) 10 Mg Tablet 10 MG PO DAILY, TAB Aspirin (Aspirin) 81 Mg Tab.chew 81 MG PO DAILY, TAB Atorvastatin Calcium (Atorvastatin Calcium) 80 Mg Tablet 80 MG PO DAILY, TAB Carvedilol (Carvedilol) 6.25 Mg Tablet 6.25 MG PO BID, TAB Clopidogrel Bisulfate (Clopidogrel) 75 Mg Tablet 75 MG PO DAILY, TAB Levothyroxine Sodium (Levothyroxine Sodium) 112 Mcg Tablet 112 MCG PO DAILY, TAB Multivitamin (Multivitamin) 1 Each Tablet 1 EACH PO DAILY, TAB [place] 3 Polyunsat Fatty Acids (Fish Oil 1,000 mg Capsule) 1,000 Mg Cap 1000 MG PO BID, CAP Patient Instructions Goal/Follow Up Appt: You have a f.u appt with Dann on September 20 @ 1220 You will need a keppra level drawn in 2 weeks Activity & Diet Discharge Diet: Cardiac Diet Activity as Tolerated: Yes DANIELLE BE MD Sep 15, 2020 12:49
[2020-09-15 13:11] VITALS: BP 164/74
== END 2020-09-15 13:11 | disposition home or self-care (01) ==
LOC: EDUNIT# 18:22 → ER 18:24 → 4TH 20:35
PROVIDERS: ADMIT Family Medicine; ATTEND Family Medicine
DX: R56.9 Unspecified convulsions (principal); S00.83XA Contusion of other part of head, initial encounter; I11.9 Hypertensive heart disease without heart failure; N18.4 Chronic kidney disease, stage 4 (severe); E03.9 Hypothyroidism, unspecified; I25.10 Atherosclerotic heart disease of native coronary artery without angina pectoris; G89.29 Other chronic pain; M25.511 Pain in right shoulder; Z79.82 Long term (current) use of aspirin; Z95.5 Presence of coronary angioplasty implant and graft; Z86.73 Personal history of transient ischemic attack (TIA), and cerebral infarction without residual deficits; Z95.1 Presence of aortocoronary bypass graft; Z98.890 Other specified postprocedural states; Z83.3 Family history of diabetes mellitus; Z80.3 Family history of malignant neoplasm of breast; Z79.02 Long term (current) use of antithrombotics/antiplatelets; Z79.890 Hormone replacement therapy; W18.30XA Fall on same level, unspecified, initial encounter
CPT/HCPCS: 36415; 70450; 72125; 80048; 80053; 81000; 82550; 83735; 83874; 84439; 84443; 84484; 85025; 93005; 93041; G0378

== ENCOUNTER → 2021-02-03 | Outpatient (CLI) | payer MEDICARE ==
[~2021-02-03] MED LIST changes: +ALLO100T PO; +ATOR80TA76 PO; +LEVE500T6 PO; +MULT-1136 PO; +REGADENOSON 0.4 MG/5 ML SYR (LEXISCAN) IV ONE; +SULF1TAB38 PO
[2021-02-03 09:42] VITALS: BP 158/87
--- NOTE | 2021-02-07 14:59 | STRESS TEST ---
DATE OF SERVICE: 02/03/2021 RESTING AND POST REGADENOSON TECHNETIUM-99M TETROFOSMIN SPECT CT IMAGING ORDERING PHYSICIAN: April Harrison APRN. PRIMARY PHYSICIAN: [facility]. CLINICAL DIAGNOSIS: Coronary artery disease. Baseline images were carried out after injection of 10.6 mCi of technetium-99m Tetrofosmin. This was followed by 0.4 mg of Regadenoson and 30.4 mCi of technetium-99m Tetrofosmin for stress imaging. The electrocardiogram showed sinus rhythm at baseline. It did not change significantly with the Regadenoson infusion. The patient tolerated the procedure well. Review of images at rest and following stress does not indicate any evidence of significant myocardial ischemia or infarction. Gated images show normal global left ventricular systolic function with normal regional wall motion. Left ventricular ejection fraction is calculated to be 61%. CONCLUSIONS: 1. No evidence of any significant myocardial ischemia or infarction on this study. 2. Normal regional wall motion. 3. Normal global left ventricular systolic function with a calculated ejection fraction of 61%. Job ID: [id number] DocumentID: [id number] Dictated Date: 02/07/2021 14:35:34 Edm Operator Date: 02/07/2021 14:58:25 Dictated By: BELLA SMITH MD, MA, FACP, FACC,
== END ==
LOC: CARD 07:30
PROVIDERS: ATTEND Nurse Practitioner Family
DX: I25.10 Atherosclerotic heart disease of native coronary artery without angina pectoris (principal)
CPT/HCPCS: 78452; 93017

== ENCOUNTER 2021-05-21 18:34 | Inpatient (IN) | payer MEDICARE ==
[~2021-05-21] VITALS: Ht 175.3 cm; Wt 92.6 kg
[~2021-05-21 18:34] MED LIST changes: -REGADENOSON 0.4 MG/5 ML SYR (LEXISCAN) IV ONE
[2021-05-21 18:58] LABS: BASOPHILS % (AUTO) 1 % (0-10); EOSINOPHILS # (AUTO) 0.1 10^3/uL (0.0-0.3); EOSINOPHILS % (AUTO) 1 % (0-10); HEMATOCRIT 52 % (40-54); HEMOGLOBIN 17.1 g/dL (13.3-17.7); LYMPHOCYTES # (AUTO) 1.7 10^3/uL (1.0-4.0); LYMPHOCYTES % (AUTO) 20 % (12-44); MEAN CORPUSCULAR HEMOGLOBIN 29 pg (25-34); MEAN CORPUSCULAR HGB CONC 33 g/dL (32-36); MEAN CORPUSCULAR VOLUME 87 fL (80-99); MEAN PLATELET VOLUME 10.4 fL (9.0-12.2); MONOCYTES # (AUTO) 0.9 10^3/uL (0.0-1.0); MONOCYTES % (AUTO) 10 % (0-12); NEUTROPHILS % (AUTO) 69 % (42-75); PLATELET COUNT 269 10^3/uL (130-400); WHITE BLOOD COUNT 8.8 10^3/uL (4.3-11.0)
--- NOTE | 2021-05-21 19:00 | ED Neurological Problem ---
General Chief Complaint: Dizziness/Syncope Stated Complaint: DIZZINESS/HTN Nursing Triage Note: PT TO RM 3 [facility]IA [facility] EMS W REPORTS OF DIZZINESS, DRY HEAVING, AND HTN X1 HOUR. PT A&OX4. Source: patient Exam Limitations: no limitations History of Present Illness Date Seen by Provider: May 21, 2021 Time Seen by Provider: 18:42 Initial Comments Patient is a 75-year-old male who arrives by EMS to the emergency department with a chief complaint of an acute onset of dizziness while sitting working on a computer. Patient states he was initially very nauseous, EMS reported "dry heaving". EMS also reported elevated blood pressures. Patient has a history of a stroke, ischemic approximately 1 year ago. He states that he is compliant with his daily medications which include Plavix. Patient also is noted to have had new onset seizures in August of this year. He is chronically on Keppra. Patient states that he sees a neurologist at [facility]. He recently had an MRI and he does not know the results. Patient states he has a mild headache behind his left eye. He has residual deficits to the left upper extremity from his stroke a year ago. He denies any other complaints other than the acute onset of dizziness and the nausea and minimal headache. No chest pain, shortness of breath, recent illnesses such as fevers, chills, vomiting or diarrhea. No urinary complaints. All other review of systems reviewed and negative except as stated. Timing/Duration: 1 hour Associated Symptoms: other (dizziness) Allergies and Home Medications Allergies Coded Allergies: No Known Food Allergies (Verified Allergy, Unknown, 05/21/21) Patient Home Medication List Home Medication List Reviewed: Yes Allopurinol (Allopurinol) 100 Mg Tablet, 50 MG PO DAILY, (Reported) Entered as Reported by: KARRI CONTI on 09/15/20 0953 Last Action: Reviewed Amlodipine Besylate (Amlodipine Besylate) 10 Mg Tablet, 10 MG PO DAILY, (Reported) Entered as Reported by: FLOR BRICEÑO on 08/26/18710 Last Action: Reviewed Aspirin (Aspirin) 81 Mg Tab.chew, 81 MG PO DAILY, (Reported) Entered as Reported by: FLOR BRICEÑO on 08/26/18710 Last Action: Reviewed Atorvastatin Calcium (Atorvastatin Calcium) 80 Mg Tablet, 80 MG PO DAILY, (Reported) Entered as Reported by: KARRI CONTI on 09/15/20952 Last Action: Reviewed Clopidogrel Bisulfate (Clopidogrel) 75 Mg Tablet, 75 MG PO DAILY, (Reported) Entered as Reported by: KARRI CONTI on 09/15/20952 Last Action: Continued Levetiracetam (Levetiracetam) 500 Mg Tablet, 500 MG PO BID, (Reported) Entered as Reported by: KARRI CONTI on 05/22/21 0904 Last Action: Continued Levothyroxine Sodium (Levothyroxine Sodium) 112 Mcg Tablet, 112 MCG PO DAILY, (Reported) Entered as Reported by: ROBERTO ROSADO on 12/05/171199 Last Action: Continued Multivitamin (Multivitamin) 1 Each Tablet, 1 EACH PO DAILY, (Reported) Entered as Reported by: KARRI CONTI on 09/15/20952 Last Action: Reviewed Dale 3 Polyunsat Fatty Acids (Fish Oil 1,000 mg Capsule) 1,000 Mg Cap, 1,000 MG PO BID, (Reported) Entered as Reported by: MONE LAM on 07/16/18 1006 Last Action: Reviewed Discontinued Medications Carvedilol (Carvedilol) 6.25 Mg Tablet, 6.25 MG PO BID, (Reported) Discontinued Reason: No Longer Taking Entered as Reported by: ROBERTO ROSADO on 12/05/171199 Last Action: Discontinued Review of Systems Review of Systems Constitutional: see HPI Eyes: No Symptoms Reported Ears, Nose, Mouth, Throat: no symptoms reported Respiratory: no symptoms reported Cardiovascular: no symptoms reported Gastrointestinal: nausea Genitourinary: no symptoms reported Musculoskeletal: no symptoms reported Psychiatric/Neurological: Headache (behind the left eye), Other (dizziness; poor coordination LUE (pre-existent from old stroke)) All Other Systems Reviewed Negative Unless Noted: Yes Past Kiqqsan-Oclelg-Xersoa Hx Patient Social History Tobacco Use?: No Use of E-Cig and/or Vaping dev: No Substance use?: No Alcohol Use?: No Immunizations Up To Date Tetanus Booster (TDap): Unknown PED Vaccines UTD: Yes Influenza Vaccine Up-to-Date: Yes; Up-to-Date First/Initial COVID19 Vaccinat: 08-27-20 Second COVID19 Vaccination Talib: AUGUST 2020 COVID19 Vaccine Shade Bander: MODERNA Seasonal Allergies Seasonal Allergies: No Past Medical History Surgeries: Yes (hernia, ) Abdominal, CABG, Coronary Stent, Orthopedic Respiratory: No Cardiac: Yes Coronary Artery Disease, Hypertension Neurological: No Stroke Genitourinary: No Gastrointestinal: No Musculoskeletal: No Endocrine: Yes Hypothyroidsim HEENT: No Cataract Loss of Vision: Denies Hearing Impairment: Denies Cancer: No Psychosocial: No Integumentary: No Family Medical History Cardiovascular disease 19 FATHER 19 MOTHER (CONGESTIVE HEART FAILURE) Diabetes mellitus 19 MOTHER FH: breast cancer 19 MOTHER Myocardial infarction 19 FATHER No Pertinent Family Hx Physical Exam Vital Signs Vital Signs - First Documented 05/21/21 18:37 Temp 35.3 Pulse 55 Resp 18 B/P (MAP) 179/68 (105) Pulse Ox 96 O2 Delivery Room Air Capillary Refill : Less Than 3 Seconds Height, Weight, BMI Height: 5'9.00" Weight: 200lbs. 0.0oz. 90.369689aa; 29.00 BMI Method:Stated General Appearance: WD/WN, no apparent distress HEENT: PERRL/EOMI, normal ENT inspection, TMs normal, pharynx normal Neck: supple, normal inspection Respiratory: lungs clear, normal breath sounds, no respiratory distress, no accessory muscle use Cardiovascular: regular rate, rhythm, gallop/S3 Gastrointestinal: normal bowel sounds, non tender, soft Extremities: non-tender, normal inspection, no pedal edema, normal capillary refill Neurologic/Psychiatric: no motor/sensory deficits, alert, normal mood/affect, oriented x 3, other (patient appears to have left sided facial droop (he was unaware of this); speech seems slightly slurred (unsure if residual from old stroke); significant ataxia to the LUE (patient states this is known); patient has persistent nystagmus to the left with forced deviation) Crainal Nerves: normal hearing, PERRL, abnormal speech Motor/Sensory: no motor deficit, no sensory deficit, pronator drift (L) Skin: normal color, warm/dry Stroke NIH Stroke Scale Assessment Select: Initial Level of Consciousness: 0=Alert (0), Level of Consciousness- Questions: 0=Answers both month/age (0), LOC Commands: 0=Performs both tasks (0), Gaze: Normal (0), Visual Hu: 0=No visual loss (0), Facial Movement (Facial Paresis): 1=Minor paralysis (1), Motor Function-Arms Right: 0=No drift (0), Motor Function-Arms Left: 1=Drift (1), Motor Function-Legs Right: 0=No drift (0), Motor Function-Legs Left: 0=No drift (0), Limb Ataxia: 1=Present in one limb (1), Sensory: 0=Normal:no loss (0), Best Language: 0=No aphasia (0), Dysarthria: 1=Mild to moderate loss (1), Extinction & Inattention: 0=No abnormality (0), Total: 4 Stroke Thrombolytic Exclusion Age 18 or Over: Yes Acute intenal hemorrhage: No History of CVA: Yes Uncontrolled Coagulation Defec: No Intracranial Hemorrhage: No Severe Hypertension: No GI or Bleed: No Subarachnoid Hemorrhage: No Intracranial Neoplasm/Aneurysm: No Oral Anticoagulants: Yes Surgery or Trauma: No Puncture of Non-Compressible V: No Recent CPR: No Diabetic Hemorrhagic Retinopat: No Organ Biopsy: No Recent Obstetric Delivery: No Glucose: No Significant Hepatic Dysfunctio: No NIH Stoke Scale >22: No Bacterial Endocarditis: No Pericarditis: No Improving Symptoms: No Platelets: Yes TPA Contraindication: No (Patient with pre-existing left sided ataxia; seems to have new left facial ) Progress/Results/Core Measures Results/Orders Lab Results Laboratory Tests Test 05/21/21 18:40 05/21/21 19:13 Range/Units White Blood Count 8.8 4.3-11.0 10^3/uL Red Blood Count 5.97 H 4.30-5.52 10^6/uL Hemoglobin 17.1 13.3-17.7 g/dL Hematocrit 52 40-54 % Mean Corpuscular Volume 87 80-99 fL Mean Corpuscular Hemoglobin 29 25-34 pg Mean Corpuscular Hemoglobin Concent 33 32-36 g/dL Red Cell Distribution Width 13.9 10.0-14.5 % Platelet Count 269 130-400 10^3/uL Mean Platelet Volume 10.4 9.0-12.2 fL Immature Granulocyte % (Auto) 0 % Neutrophils (%) (Auto) 69 42-75 % Lymphocytes (%) (Auto) 20 12-44 % Monocytes (%) (Auto) 10 0-12 % Eosinophils (%) (Auto) 1 0-10 % Basophils (%) (Auto) 1 0-10 % Neutrophils # (Auto) 6.0 1.8-7.8 10^3/uL Lymphocytes # (Auto) 1.7 1.0-4.0 10^3/uL Monocytes # (Auto) 0.9 0.0-1.0 10^3/uL Eosinophils # (Auto) 0.1 0.0-0.3 10^3/uL Basophils # (Auto) 0.0 0.0-0.1 10^3/uL Immature Granulocyte # (Auto) 0.0 0.0-0.1 10^3/uL Prothrombin Time 13.5 12.2-14.7 SEC INR Comment 1.0 0.8-1.4 Activated Partial Thromboplast Time 27 24-35 SEC D-Dimer 0.43 0.00-0.49 UG/ML Sodium Level 140 135-145 MMOL/L Potassium Level 3.2 L 3.6-5.0 MMOL/L Chloride Level 105 98-107 MMOL/L Carbon Dioxide Level 20 L 21-32 MMOL/L Anion Gap 15 H 5-14 MMOL/L Blood Urea Nitrogen 25 H 7-18 MG/DL Creatinine 1.59 H 0.60-1.30 MG/DL Estimat Glomerular Filtration Rate 43 BUN/Creatinine Ratio 16 Glucose Level 168 H 70-105 MG/DL Calcium Level 9.4 8.5-10.1 MG/DL Corrected Calcium 9.3 8.5-10.1 MG/DL Total Bilirubin 0.6 0.1-1.0 MG/DL Aspartate Amino Transf (AST/SGOT) 26 5-34 U/L Alanine Aminotransferase (ALT/SGPT) 22 0-55 U/L Alkaline Phosphatase 139 H 40-136 U/L Troponin I < 0.028 <0.028 NG/ML Total Protein 7.4 6.4-8.2 GM/DL Albumin 4.1 3.2-4.5 GM/DL Glucometer 156 H 70-110 MG/DL My Orders Orders - MEGHNA TOLLIVER MD Cbc With Automated Diff (05/21/21 18:52) Protime With Inr (05/21/21 18:52) Partial Thromboplastin Time (05/21/21 18:52) Comprehensive Metabolic Panel (05/21/21 18:52) Fibrin Degradation Products (05/21/21 18:52) Troponin I (05/21/21 18:52) Ua Culture If Indicated (05/21/21 18:52) Chest 1 View, Ap/Pa Only (05/21/21 18:52) Ekg Tracing (05/21/21 18:52) Accucheck Stat ONCE (05/21/21 18:52) Ed Iv/Invasive Line Start (05/21/21 18:52) Ed Iv/Invasive Line Start (05/21/21 18:52) Vital Signs Stroke Patient Q15M (05/21/21 18:52) Ct Head Wo-R/O Stroke (05/21/21 18:52) O2 (05/21/21 18:52) Monitor-Rhythm Ecg Trace Only (05/21/21 18:52) Dysphagia Screening Tool (05/21/21 18:52) Post Thrombolytic Adminstratio (05/21/21 18:52) Lipid Panel (05/22/21 06:00) Ondansetron Injection (Zofran Injectio (05/21/21 19:30) Ondansetron Injection (Zofran Injectio (05/21/21 19:27) Vital Signs Stroke Patient Q15M (05/21/21 20:22) Tenecteplase (Tnkase) (05/21/21 20:30) Ed Admission (Communication) (05/21/21 20:27) Medications Given in ED Vital Signs/I&O 05/21/21 18:37 Temp 35.3 Pulse 55 Resp 18 B/P (MAP) 179/68 (105) Pulse Ox 96 O2 Delivery Room Air Blood Pressure Mean: 105 Progress Progress Note #1: Time: 19:46 Progress Note Called by radiologist; informed of Neg CT brain results - old infarcts visualised, no new hemorrhage or infarct seen [address]ed with stroke neurologist Dr. Hercules. She states that she would not be concerned with the degree of NIH positivity at four of large vessel occlusion. She states that she would not offer any intervention with this. She states that if the patient is disabled due to the vertigo and with the concomitant symptoms of dysarthria and left facial droop that TPA could be offered. She states there would be a slight increased risk of bleeding with the prior stroke and on the Plavix. But she states debility due to the vertigo would be an indication for TPA. I discussed all of this with the patient and his . I offered that we do not have MRI available tonight to confirm the presence of an acute stroke however due to the presentation, his dysarthria and profound vertigo and left facial droop that stroke neurology would recommend TPA if he could not stand or ambulate with the vertigo. I told them that we could transfer him to a local facility perhaps [place] for MRI but that we might be outside the window to offer TPA at that point. The patient and his would like to proceed with TPA here. I did tell the patient that there would be a risk of bleeding and that sometimes bleeding in the brain is fatal. He still would like to proceed. I did stand patient at the bedside, he stood wide-based and could not take a step forward unassisted secondary to his severe vertigo. states normally he is ambulatory without any assistance at all. Patient had to be assisted back into the bed Progress Note #2: Time: 21:18 Progress Note Patient re-checked, still has headache, behind his left eye and behind his left ear - no worse since TNKase administration. WIll give a dose of tylenol Initial ECG Impression Date: May 21, 2021 Initial ECG Impression Time: 19:06 Initial ECG Rate: 50 Initial ECG Rhythm: S.Ernesto Initial ECG Intervals ME 161 QRS 125 QTc 414 Initial ECG Impression: Normal Diagnostic Imaging Diagonstic Imaging: Xray Plain Films/CT/US/NM/MRI: chest Comments [facility]. [place], [place] NAME: ALAN CHURCH [facility] REC#: [id number] PT STATUS: REG ER : 1945 PHYSICIAN: MEGHNA TOLLIVER MD ADMIT DATE: 05/21/21/ER Draft Date of Exam:05/21/21 CHEST 1 VIEW, AP/PA ONLY HISTORY: Dizziness, stroke. COMPARISON: 04/02/2020. TECHNIQUE: Frontal view of the chest. FINDINGS: Lung volumes are normal. No consolidation is seen. Sternotomy wires and post-CABG changes are seen. The cardiac silhouette is stable in size. There is mild elevation of the left hemidiaphragm. IMPRESSION: No acute pulmonary abnormality. Dictated on workstation # [id number] Dict: 05/21/211939 Trans: 05/21/211941 [facility] [id number] Interpreted by: TINO FREED MD Electronically signed by: Critical Care Note Critical Care Start Time: 18:42 Stop Time: 20:42 Total Time (minutes) 1 hour critical care time in the evaluation and management of this 75-year-old gentleman with an acute onset of severe debilitating vertigo, left-sided facial droop and dysarthria. Time includes initial evaluation of strokelike symptoms, review of the medical record, treatment of nausea, discussion with [facility] stroke neurologist, discussion with admitting provider here. Multiple discussions with patient and . Tenecteplase dosing and monitoring. Departure Communication (Admissions) Time/Spoke to Admitting Phy: 20:[address] Quijano, will do que'd orders Impression Primary Impression: Cerebrovascular accident Qualified Codes: I63.9 - Cerebral infarction, unspecified Disposition: ADMITTED INPATIENT Condition: Critical Admissions Decision to Admit Reason: Admit from ER (General) Decision to Admit/Date: May 21, 2021 Time/Decision to Admit Time: 20:22 Departure-Patient Inst. Referrals: [facility] [place] (PCP) Primary Care Physician JAMEY MA APRN (Family) Primary Care Physician MEGHNA TOLLIVER MD May 21, 2021 19:00
[2021-05-21 19:02] LABS: ALBUMIN 4.1 GM/DL (3.2-4.5); CHLORIDE 105 MMOL/L (98-107); POTASSIUM 3.2 MMOL/L (3.6-5.0); SODIUM 140 MMOL/L (135-145)
[2021-05-21 19:04] LABS: CALCIUM 9.4 MG/DL (8.5-10.1)
[2021-05-21 19:05] LABS: GLUCOSE 168 MG/DL (70-105); TOTAL PROTEIN 7.4 GM/DL (6.4-8.2)
[2021-05-21 19:06] LABS: CARBON DIOXIDE 20 MMOL/L (21-32)
[2021-05-21 19:07] LABS: BILIRUBIN,TOTAL 0.6 MG/DL (0.1-1.0)
[2021-05-21 19:08] LABS: ALKALINE PHOSPHATASE 139 U/L (40-136); CREATININE SERUM 1.59 MG/DL (0.60-1.30); GFR ESTIMATED 43
[2021-05-21 19:09] LABS: FIBRIN DEGRADATION PRODUCTS 0.43 UG/ML (0.00-0.49); PROTHROMBIN TIME PATIENT 13.5 SEC (12.2-14.7)
[2021-05-21 19:10] LABS: BUN/CREATININE RATIO 16
[2021-05-21 19:11] LABS: ALANINE AMINOTRANSFERASE 22 U/L (0-55)
[2021-05-21] MEDS ORDERED: ONDANSETRON 4 MG/2 ML (SDV) Z0FRAN ONE (19:27)
[2021-05-21] MEDS ORDERED: ONDANSETRON 4 MG/2 ML (SDV) Z0FRAN IVP ONE (19:30)
--- NOTE | 2021-05-21 19:42 | Diagnostic Imaging Report ---
HISTORY: Dizziness, stroke. COMPARISON: 04/02/2020. TECHNIQUE: Frontal view of the chest. FINDINGS: Lung volumes are normal. No consolidation is seen. Sternotomy wires and post-CABG changes are seen. The cardiac silhouette is stable in size. There is mild elevation of the left hemidiaphragm. IMPRESSION: No acute pulmonary abnormality. Dictated by: Dictated on workstation # [id number]
--- NOTE | 2021-05-21 19:51 | Diagnostic Imaging Report ---
PROCEDURE: CT head w/o r/o stroke. TECHNIQUE: Multiple contiguous axial images were obtained through the brain without the use of intravenous contrast. Auto Exposure Controls were utilized during the CT exam to meet ALARA standards for radiation dose reduction. INDICATION: Neurological deficit. Dizziness, vomiting. COMPARISON: 09/14/2020. FINDINGS: The ventricles and cortical sulci are diffusely prominent, likely from generalized parenchymal volume loss. There are areas of encephalomalacia in the right frontal and right parietal lobe, from old infarct, and stable since the prior exam. There is no midline shift or mass effect. No acute intracranial hemorrhage is seen. There is no CT evidence of acute territorial ischemia. Findings appear stable since 09/14/2020. There is calcific atherosclerosis. The calvarium is intact. Visualized paranasal sinuses are clear. IMPRESSION: Areas of encephalomalacia from old infarct, stable since the prior study. No acute hemorrhage or CT evidence of acute territorial ischemia. Findings discussed with MEGHNA TOLLIVER MD by Dr. Quintana, on 05/21/2021 7:44 PM. Dictated by: Dictated on workstation # [id number]
[2021-05-21] MEDS ORDERED: TENECTEPLASE 50 MG VIAL IV ONE (20:30)
[2021-05-21] MEDS ORDERED: ACETAMINOPHEN 500 MG TAB (TYLENOL) PO ONE (21:30)
--- NOTE | 2021-05-21 22:40 | Tele-ICU Progress Note ---
Progress Note 75 y/o with previous Hx of CVA, experienced severe dizziness, dysarthria and facial droop. CTH negative. MRI pending. Seen by Neurology. Recommended tPA. 1. Ac CVA s/p tPA 2. NEIL 3. Hyperglycemia, Hz of HTN 4. Hypokalemia 5. Seizures on Keppra 6. Hypothyroidism on Levothyroxine 7. HLD and Gout on Statin and Allopurinol. Goal BP control <185 mmHg post tPA Interventions Minor-Other: Ac CVA s/p tPA Focused Exam Height, Weight, BMI Height: 5'9.00" Weight: 200lbs. 0.0oz. 90.794643tr; 29.00 BMI Method:Stated DUSTIN BLANCO MD May 21, 2021 22:40
[2021-05-21] MEDS ORDERED: ALPRAZolam 0.25 MG (XANAX) TAB PO PRN (23:00)
[2021-05-21] MEDS ORDERED: morphine INJ 10 MG/ML 1ML (SYR OR VIAL) IVP PRN (23:00)
[2021-05-21] MEDS ORDERED: LOPERAMIDE 2 MG (IMODIUM) TABLET PO PRN (23:00)
[2021-05-21] MEDS ORDERED: HYDROcodone/APAP 5 MG/325 MG (LORTAB) TAB PO PRN (23:00)
[2021-05-21] MEDS ORDERED: DOCUSATE SODIUM 100 MG (COLACE) CAP PO PRN (23:00)
[2021-05-21] MEDS ORDERED: BISACODYL 10 MG SUPP (DULCOLAX) PR PRN (23:00)
[2021-05-21] MEDS ORDERED: MILK OF MAGNESIA 400 MG/5 ML 30 ML UDC PO PRN (23:00)
[2021-05-21] MEDS ORDERED: diphenhydrAMINE 25 MG TAB (BENADRYL) PO PRN (23:00)
[2021-05-21] MEDS ORDERED: CALCIUM CARBONATE 500 MG (TUMS) TAB.CHEW PO PRN (23:00)
[2021-05-21] MEDS ORDERED: niCARdipine IV 50 MG in NS (IVPB) 230 ML IV SCH (23:00)
[2021-05-21] MEDS ORDERED: ONDANSETRON 4 MG/2 ML (SDV) Z0FRAN IVP PRN (23:00)
[2021-05-21] MEDS ORDERED: MELATONIN 3 MG TABLET PO PRN (23:00)
[2021-05-21] MEDS ORDERED: ACETAMINOPHEN 500 MG TAB (TYLENOL) PO PRN (23:00)
[2021-05-21 23:22] VITALS: BP 179/68
[2021-05-21] MEDS ORDERED: RT-ALBUTEROL SULF 2.5 MG/3 ML PRE-MIX VIAL INH PRN (23:30)
[2021-05-22] MEDS ORDERED: POTASSIUM CL 10MEQ/50ML IVPB 200 ML IV ONE (01:15)
[2021-05-22] MEDS: POTASSIUM CL 10MEQ/50ML IVPB 50 ML IV SCH ×4 (01:54→06:11)
[2021-05-22 05:16] LABS: BASOPHILS % (AUTO) 0 % (0-10); EOSINOPHILS % (AUTO) 0 % (0-10); HEMATOCRIT 53 % (40-54); HEMOGLOBIN 17.5 g/dL (13.3-17.7); LYMPHOCYTES # (AUTO) 0.7 10^3/uL (1.0-4.0); LYMPHOCYTES % (AUTO) 6 % (12-44); MEAN CORPUSCULAR HEMOGLOBIN 29 pg (25-34); MEAN CORPUSCULAR HGB CONC 33 g/dL (32-36); MEAN CORPUSCULAR VOLUME 87 fL (80-99); MEAN PLATELET VOLUME 10.3 fL (9.0-12.2); MONOCYTES # (AUTO) 0.6 10^3/uL (0.0-1.0); MONOCYTES % (AUTO) 4 % (0-12); NEUTROPHILS # (AUTO) 12.1 10^3/uL (1.8-7.8); NEUTROPHILS % (AUTO) 90 % (42-75); PLATELET COUNT 280 10^3/uL (130-400); WHITE BLOOD COUNT 13.5 10^3/uL (4.3-11.0)
[2021-05-22 05:42] LABS: POTASSIUM 4.5 MMOL/L (3.6-5.0)
[2021-05-22 05:43] LABS: ALBUMIN 4.2 GM/DL (3.2-4.5)
[2021-05-22 05:44] LABS: CALCIUM 9.9 MG/DL (8.5-10.1)
[2021-05-22 05:45] LABS: TOTAL PROTEIN 7.6 GM/DL (6.4-8.2)
[2021-05-22 05:47] LABS: BILIRUBIN,TOTAL 0.6 MG/DL (0.1-1.0)
[2021-05-22 05:48] LABS: PHOSPHORUS 2.4 MG/DL (2.3-4.7)
[2021-05-22 05:49] LABS: CREATININE SERUM 1.51 MG/DL (0.60-1.30)
[2021-05-22 06:01] LABS: BAND NEUTROPHILS 1 %; LYMPHOCYTES % (MANUAL) 10 %; MONOCYTES % (MANUAL) 2 %; NEUTROPHILS % (MANUAL) 87 %
[2021-05-22 06:07] LABS: BILIRUBIN,URINE NEGATIVE (NEGATIVE); CLARITY,URINE CLEAR; COLOR,URINE YELLOW; GLUCOSE, URINE (UA) TRACE (NEGATIVE); KETONES,URINE NEGATIVE (NEGATIVE); LEUKOCYTE ESTERASE ,URINE NEGATIVE (NEGATIVE); NITRITE,URINE NEGATIVE (NEGATIVE); PROTEIN,URINE 2+ (NEGATIVE)
[2021-05-22] MEDS: MAGNESIUM 1 GM/100 ML IVPB 100 ML IV SCH (06:11)
[2021-05-22] MEDS: KCL 20 MEQ TAB (K-DUR) PO SCH (06:11)
[2021-05-22 06:17] LABS: BACTERIA,URINE TRACE /HPF; RBC,URINE 0-2 /HPF; WBC,URINE 0-2 /HPF
--- NOTE | 2021-05-22 07:37 | Physical Therapy Progress Note ---
Therapy Progress Note Due to patient receiving TPA 05/21/21, PT will evaluate patient 05/23/21. TAMIA SERRATO PT May 22, 2021 07:37
--- NOTE | 2021-05-22 07:53 | Occ Therapy Progress Note ---
Therapy Progress Note OT orders received, chart reviewed. Due to patient receiving TPA 05/21/21, OT will evaluate patient 05/23/21. Alba Freeman OT May 22, 2021 07:53
[2021-05-22] MEDS ORDERED: LEVE500T6 PO (09:04)
[2021-05-22] MEDS: SENNA W/DOCUSATE (SENOKOT S) TABLET PO SCH ×2 (09:25→21:13)
[2021-05-22] MEDS: DOCUSATE SODIUM 100 MG (COLACE) CAP PO SCH (09:25)
--- NOTE | 2021-05-22 10:12 | Tele-ICU Progress Note ---
Subjective Date Seen by a Provider: May 22, 2021 Time Seen by a Provider: 10:11 Sepsis Event Evaluation Height, Weight, BMI Height: 5'9.00" Weight: 200lbs. 0.0oz. 90.994316xl; 31.23 BMI Method:Stated Exam Exam Patient acknowledged, consented, and participated in this virtual visit which was conducted using real time audio/video Vital Signs Date Time Temp Pulse Resp B/P (MAP) Pulse Ox O2 Delivery O2 Flow Rate FiO2 05/22/21 09:00 60 16 152/76 97 Room Air 05/22/21 08:31 97 Room Air 05/22/21 08:00 64 11 139/80 92 Room Air 05/22/21 08:00 96 Room Air 05/22/21 07:30 36.1 05/22/21 07:00 63 05/22/21 07:00 67 17 145/79 96 Room Air 05/22/21 06:00 66 9 157/77 98 Room Air 05/22/21 05:10 63 15 147/81 95 Room Air 05/22/21 04:00 96 Room Air 05/22/21 04:00 67 146/76 94 Room Air 05/22/21 03:33 36.5 Room Air 05/22/21 03:00 66 11 149/85 93 Room Air 05/22/21 02:00 68 9 158/86 96 Room Air 05/22/21 01:00 59 05/22/21 01:00 65 156/79 96 Room Air 05/22/21 00:00 59 9 149/77 95 Room Air 05/21/21 23:47 98 Room Air 05/21/21 23:22 35.3 55 96 21 05/21/21 23:15 59 167/71 95 Room Air 05/21/21 23:00 36.6 Room Air 05/21/21 23:00 64 9 164/73 97 Room Air 05/21/21 22:59 68 05/21/21 22:50 64 21 174/73 97 Room Air 05/21/21 22:46 98 Room Air 05/21/21 22:40 36.7 54 14 164/73 97 05/21/21 22:33 53 20 145/123 97 Room Air 05/21/21 20:36 50 157/73 05/21/21 18:37 35.3 55 18 179/68 (105) 96 Room Air I & O 05/22/21 07:00 Intake Total 260 ml Output Total 1450 ml Balance -1190 ml Height & Weight Height: 5'9.00" Weight: 200lbs. 0.0oz. 90.200158xv; 31.23 BMI Method:Stated General Appearance: No Apparent Distress Capillary Refill: Less Than 3 Seconds Gastrointestinal: normal bowel sounds, non tender, soft Results Lab Laboratory Tests 05/21/21 18:40 05/22/21 04:59 Assessment/Plan Assessment/Plan (Tele-ICU Physician , Progress Note ) Available chart/ vitals / labs / Images reviewed Video assessment done using teleICU camera, rest of exam as per RN Discussed with RN , EXAM PER RN Events overnight : Afebrile FiO2 - ra I/O = Drips: Pressors: , hemodynamically stable Consultants: Hospital course: 05/21- 75 y/o with previous Hx of CVA, experienced severe dizziness, dysarthria and facial droop. - s/p TNCPL A/P Acute stroke ( with h/o CVA on 04/02/20 -s/p tenecteplase 05/21 - repeat ct head today - 24 h -neurocheck/NIHSS/VS monitoring per stroke order set protocol -IV hydralazine and labetalol PRN for BP >185/105 -Antithrombotic medication plan as per bedside leukocytosis - reactive - follow CKD - stable CAD - follow Lines : (Central Line Necessity Reviewed) [place]: OG: Nutrition: needs swallow ebval Analgesia: Anxiety/ delirium VTE Prophylaxis: scd Stress Ulcer Prophylaxis: Glycemic Control: Plans in collaboration with bedside consultants and IM MDs. Discussed with RN to reach out if any questions or concerns A total of 31 minutes of critical care time was devoted to this patient today, required to treat and/or prevent further deterioration of critical care condition ( as above) . NERY VARGAS MD May 22, 2021 10:12
[2021-05-22] MEDS ORDERED: hydrALAZINE (APESOLINE) 20 MG/ML VIAL IV PRN (10:15)
--- NOTE | 2021-05-22 10:37 | ST Dysphagia Evaluation ---
Speech Evaluation-General Medical Diagnosis CVA Onset Date: May 22, 2021 Therapy Diagnosis Therapy Diagnosis: Oropharyngeal Dysphagia, Cognitive-communication Precautions Precautions: Aspiration Precautions/Isolations: Aspiration Referral Referring Physician: Dr. Quijano Medical History Pertinent Medical History: CABG, CAD, HTN Reviewed History: Yes Social History Current Living Status: Spouse Speech PLF/Current-Dysphagia Prior Level of Function Patient lives in the home with his where he was independent for most of his daily needs. Patient is noted to have had a stroke about a year ago. Subjective Patient was pleasant with the Bedside Dysphagia Evaluation and cognitive assessment. Cognitive Status Patient Orientation: Person, Place, Situation Oral Motor Skills Dentition: Natural, Tumbled Current Food Consistancy: Clear Liquids Ability to Follow Directions: Good Oral Expression Ability: No Impairment Voice Voice Phonatory-Based Quality: Breathy, Weak Voice Pitch: Normal Voice Loudness: Mildly Soft/Quiet Face Facial Symmetry: Symmetrical Oral-Facial Assessment Oral-Facial Dentition: Normal Labial Seal Description: Normal Smile: Normal Lingual Protrusion: Normal Lingual ROM: Normal Lingual Strength: Normal Pharynx Velopharyngeal Move.: Normal Volitional Dry Swallow: Yes Voluntary Cough: Yes Can Clear Throat Volitionally: Yes Dysphagia Evaluation Consistencies Presented: Thin Liquid, Mechanical Soft, Geary Thick Liquid, Pureed Oral Phase: Anterior Spillage Oral phase is within normal limits for nectar, puree and mechanical soft. Patient exhibited anterior spillage with thin liquids. Pharyngeal Phase: Decreased A/P Bolus Transit Oral phase is within normal limits for nectar, puree and mechanical soft. Patient exhibited choking with thin liquids. Funct. Velo/Pharyngeal Symptom: Cough After Swallow Thin liquids Dietary Recommendations: Mechanical Soft Liquid Recommendations: Geary Consistancy Swallowing Precautions: Alternate Liquids/Solids, Chin Tuck, Double Swallow, Decreased Bolus 1/2 Tsp, Decreased Rate of Oral Intake, Liquids from Spoon, Small Bites and Sips, Sitting Upright 90 Degrees, Sitting 90 Degrees 30 Post Intake Dysphagia Evaluation Summary Patient is a pleasant 75 y/o male who was admitted via the ED due to CVA. Patient c/o dizziness prior to the Bedside Dysphagia Evaluation. He was able to follow directions and answer questions accurately. The patient was given thin liquids at 1/2 tsp and via straw of small sip. He choked on both presentations and was noted to anterior leakage. He demonstrates a strong cough and was able to clear. The patient was then given nectar consistency at 1/2 tsp x2 without difficulty. The patient was presented with 1/2 tsp of puree and mechanical soft which he tolerates well. Regular texture was not presented due to patient's weakness and decreased bolus management. Patient is recommended for a Dysphagia II diet level with nectar consistency liquids. This information was provided to his nurse, Isabella, who will put the orders in as recommended. Patient's current cognitive status appears to be intact for following directions and communication. Barriers to Learning Recent CVA, age Speech Short Term Goals Short Term Goals Short Term Goals 1) Patient will tolerate least restrictive diet level with 90% or greater. 2) Patient will utilize compensatory strategies as trained for safe oral intake at 90% or greater. 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 Speech-Plan Patient/Family Goals Patient/Family Goals: Patient plans on returning to his home where he lives with his . Treatment Plan Speech Therapy Treatment Plan: Continue Plan of Care Treatment Duration: May 26, 2021 Frequency: 3 times per week Estimated Hrs Per Day: .25 hour per day Rehab Potential: Good Barriers to Learning: Recent CVA, age Pt/Family Agrees to Plan: Yes Safety Risks/Education Teaching Recipient: Patient Teaching Methods: Demonstration, Discussion Response to Teaching: Verbalize Understanding, Return Demonstration Education Topics Provided: Safety of oral intake, communication of wants/needs, diet level Time Speech Therapy Time In: 10:05 Speech Therapy Time Out: 10:30 Total Billed Time: 25 Billed Treatment Time 1, DYSEVS, DYST, SPSNDCOMP, SLTS No OTTO CUELLAR May 22, 2021 10:37
--- NOTE | 2021-05-22 14:07 | History & Physical ---
CYNTHIA DEUTSCH MD 05/22/21 1407: HPI History of Present Illness: 75 year old male with history of CKD (baseline 1.5-1.7), gout, hypothyroidism, hypertension, seizure following CVA in 03/2020 of unknown etiology with residual left-sided deficits presented 05/21 after acute onset dizziness. Patient reports that he was sitting at his computer and with no prodromal symptoms at all, including no palpitations, developed dizziness. He states the room felt like it was spinning. He also noted difficulty speaking with his hoarse sounding weak, difficulty walking, and left sided facial droop. EMS was called and he was brought to the ED where NIHSS was noted to be [address] head. The ED spoke with neurology at who recommended against transfer given low NIHSS score. Risks and benefits of tenecteplase were discussed with the patient and melissa garcia elected to proceed with this. He was subsequently admitted to the ICU. Patient reports that since arrival, he has improving dysarthria, though voice still sounds hoarse. The room no longer seems to be spinning. Source: patient Exam Limitations: no limitations Date seen by provider: May 22, 2021 Time Seen by Provider: 09:40 Attending Physician Kasie Pugh MD [place] [place] Consult Date of Admission May 21, 2021 at 20:28 Home Medications Home Medications Reviewed patient Home Medication Reconciliation performed by pharmacy medication reconciliations dialysis equipment technician and/or nursing. Patients Allergies have been reviewed. Allergies Coded Allergies: No Known Food Allergies (Verified Allergy, Unknown, 05/21/21) NZO-Yklqfd-Symntd Hx Patient Social History Smoking Status: Never a Smoker 2nd Hand Smoke Exposure: No Recent Hopitalizations: No Alcohol Use?: No Have you traveled recently?: No Immunizations Up To Date Tetanus Booster (TDap): Unknown Date of Pneumonia Vaccine: Apr 02, 2017 Date of Influenza Vaccine: May 05, 2021 Past Medical History CVA 2019 HTN Hypothyroidism CKD Family Medical History Significant Family History: No Pertinent Family Hx Family History: Cardiovascular disease 19 FATHER 19 MOTHER (CONGESTIVE HEART FAILURE) Diabetes mellitus 19 MOTHER FH: breast cancer 19 MOTHER Myocardial infarction 19 FATHER Review of Systems ([facility]) Constitutional: No chills; dizziness; No fever EENTM: hoarseness Respiratory: No cough, No dyspnea on exertion, No short of breath Cardiovascular: No chest pain, No palpitations Gastrointestinal: No abdominal pain Genitourinary: No dysuria Musculoskeletal: no symptoms reported Skin: no symptoms reported Psychiatric/Neurological: Weakness Reviewed Test Results Reviewed Test Results Lab CBC wnl CMP with K 3.2, Cr 1.51 INR 1.[address] head negative Physical Exam-([facility]) Physical Exam Vital Signs VS - Last 72 Hours, by Label 05/21/21 05/21/21 05/21/21 05/21/21 18:37 20:36 22:33 22:40 Temp 35.3 36.7 Pulse 55 50 53 54 Resp 18 20 14 B/P (MAP) 179/68 (105) 157/73 145/123 164/73 Pulse Ox 96 97 97 O2 Delivery Room Air Room Air 05/21/21 05/21/21 05/21/21 05/21/21 22:46 22:50 22:59 23:00 Pulse 64 68 64 Resp 21 9 B/P (MAP) 174/73 164/73 Pulse Ox 98 97 97 O2 Delivery Room Air Room Air Room Air 05/21/21 05/21/21 05/21/21 05/21/21 23:00 23:15 23:22 23:47 Temp 36.6 35.3 Pulse 59 55 B/P (MAP) 167/71 Pulse Ox 95 96 98 O2 Delivery Room Air Room Air Room Air FiO2 21 05/22/21 05/22/21 05/22/21 05/22/21 00:00 01:00 01:00 02:00 Pulse 59 65 59 68 Resp 9 9 B/P (MAP) 149/77 156/79 158/86 Pulse Ox 95 96 96 O2 Delivery Room Air Room Air Room Air 05/22/21 05/22/21 05/22/21 05/22/21 03:00 03:33 04:00 04:00 Temp 36.5 Pulse 66 67 Resp 11 B/P (MAP) 149/85 146/76 Pulse Ox 93 94 96 O2 Delivery Room Air Room Air Room Air Room Air 05/22/21 05/22/21 05/22/21 05/22/21 05:10 06:00 07:00 07:00 Pulse 63 66 67 63 Resp 15 9 17 B/P (MAP) 147/81 157/77 145/79 Pulse Ox 95 98 96 O2 Delivery Room Air Room Air Room Air 05/22/21 05/22/21 05/22/21 05/22/21 07:30 08:00 08:00 08:31 Temp 36.1 Pulse 64 Resp 11 B/P (MAP) 139/80 Pulse Ox 96 92 97 O2 Delivery Room Air Room Air Room Air 05/22/21 05/22/21 05/22/21 05/22/21 09:00 10:00 11:00 11:25 Temp 36.6 Pulse 60 65 66 Resp 16 11 11 B/P (MAP) 152/76 147/74 142/72 Pulse Ox 97 95 92 O2 Delivery Room Air Room Air Room Air 05/22/21 05/22/21 05/22/21 12:00 12:00 13:00 Pulse 65 67 Resp 11 B/P (MAP) 153/74 Pulse Ox 96 95 O2 Delivery Room Air Room Air Capillary Refill : Less Than 3 Seconds General Appearance: no apparent distress Eyes: Left Eye Other (Rotational nystagmus most prominent with leftward gaze) HEENT: PERRL/EOMI Neck: full range of motion, supple Respiratory: chest non-tender, lungs clear, normal breath sounds, no respiratory distress Cardiovascular: normal peripheral pulses, regular rate, rhythm, no edema, no murmur Gastrointestinal: normal bowel sounds, non tender, soft Extremities: non-tender, normal inspection Neurologic/Psychiatric: pressure control supervisor II-XII nml as tested, alert, normal mood/affect, oriented x 3, abnormal cerebellar tests (Ataxia on left finger to nose), facial droop (Left-sided facial drop), motor weakness (4/5 strength with left hip flexion) Skin: normal color, warm/dry Assessment/Plan Assessment/Plan Admission Status: Inpatient Order (span 2 midnights) Reason for Inpatient Admission: Cerebrovascular Accident (1) CVA (cerebral vascular accident) Status: Acute Permanent Comment: Reason for Deletion: Duplicate Last Edited By: Cynthia Deutsch on May 22, 2021 14:18 Assessment & Plan: 75 year old male with history of CVA in 03/2020 with residual left-sided deficits on ASA and plavix outpatient presented 05/22 for acute onset vertigo, left facial drop, left-sided ataxia with NIHSS 4 and negative CTH s/p tenecteplase now in the ICU. Workup thus far with LDL 102, sinus rhythm on telemetry. Prior carotid US reviewed 2019 with mild stenosis with repeat low yield given symptoms seem to be from posterior circulation. -Follow up CTH, MRI ordered -Check TSH, hemoglobin A1c, echo -Permissive HTN, resume antihypertensives if needed on 05/23 -Resume DAPT 05/23, 24-48 hours after tenecteplase -ST consulted given dysarthria -Cardiology consulted appreciated recommendations (2) HTN (hypertension) Status: Chronic Assessment & Plan: History of HTN on amlodipine 10 mg outpatient. Allowing for permissive hypertension here with BP 140-150 systolic overnight. -If BP persistently elevated, will resume home regimen 05/23 Qualifiers: Qualified Codes: I10 - Essential (primary) hypertension (3) CAD (coronary artery disease) Status: Chronic Assessment & Plan: History of CAD s/p 5V CABG in 2009 with most recent stent placed 08/2018 and recent negative stress test on DAPT outpatient. -Holding DAPT temporarily after tenecteplase -Resume DAPT 05/23 for CVA -Cardiology following (4) CKD (chronic kidney disease) Status: Chronic Assessment & Plan: CKD3b with creatinine at baseline 1.51. -Daily BMP Qualifiers: Qualified Codes: N18.32 - Chronic kidney disease, stage 3b (5) History of seizure Status: Chronic Assessment & Plan: Patient reports 1 GTC seizure following his stroke in 03/2020 on Keppra outpatient. -Continue keppra 500 mg BID (6) Hypothyroidism Assessment & Plan: On synthroid 112 mcg daily outpatient. -Check TSH -Continue home synthroid Clinical Quality Measures DVT/VTE Risk/Contraindication: Contraindications-Pharm: Other *list below* Contraindications-Mechi: Other *list below* Other: tpa KASIE PUGH MD 05/22/21 1515: Home Medications Allergies Coded Allergies: No Known Food Allergies (Verified Allergy, Unknown, 05/21/21) LDZ-Rqokuz-Snokvu Hx Family Medical History Family History: Cardiovascular disease 19 FATHER 19 MOTHER (CONGESTIVE HEART FAILURE) Diabetes mellitus 19 MOTHER FH: breast cancer 19 MOTHER Myocardial infarction 19 FATHER Supervisory-Addendum Brief Supervisory Addendum I personally have seen and evaluated the patient and agree with documentation by PGY3 Cornelio Deutsch MD. I agree with the documented assessment and plan. CYNTHIA DEUTSCH MD May 22, 2021 14:07 KASIE PUGH MD May 22, 2021 15:15
--- NOTE | 2021-05-22 17:39 | Diagnostic Imaging Report ---
Clinical indication: Patient with CVA Exam: MRI of the brain performed without IV contrast. Sequences include axial DWI, ADC map, coronal gradient echo, axial T2, axial FLAIR, axial T1, and sagittal T1. Comparison: None. Findings: There is a small to moderate sized area of diffusion restriction involving the medial inferior left cerebellar hemisphere and left lateral brainstem medulla. There is associated high T2 signal in these regions. There is no evidence of hemorrhagic transformation. There is a small area of diffusion restriction involving the high posterior lateral left frontal lobe region with associated high T2 signal. There is brain parenchymal volume loss. There is a total of moderate amount of chronic infarcts involving the parasagittal right frontal lobe periventricular region and lateral right parietal lobe region. There is no hydrocephalus, brain herniation, or midline shift. Basal cisterns are unremarkable. There is loss of flow void signal within the left cervical vertebral artery and either distal left intradural vertebral artery or proximal basilar artery. There are postoperative changes to both globes which may be related to lens implants. The extracranial soft tissues, skull, and orbits are otherwise unremarkable. Paranasal sinuses and mastoid air cells are clear. IMPRESSION: 1: There is a small to moderate sized area of acute infarct involving the inferior medial left cerebellum and lateral posterior brainstem medulla which correlates to the left vertebral artery and left PICA distribution. There is note of absence of flow void with abnormal increased T2 signal involving the left vertebral artery and possibly the left proximal basilar artery which may represent occlusion. CT angiogram of the head and neck is suggested for further evaluation. 2: There is small area of acute infarct involving the high lateral posterior left frontal lobe region. 3: Chronic cerebral infarct involving the right frontal lobe and right parietal lobe. Results of this report discussed with Katina Hinton via the telephone on 05/22/2021 at 1725 hours. Dictated by: Dictated on workstation # [id number]
--- NOTE | 2021-05-22 18:47 | Diagnostic Imaging Report ---
PROCEDURE: CT angiography of the head and CT angiography of the neck with and without contrast. TECHNIQUE: Contiguous noncontrast images were obtained from the skull base through the vertex. After intravenous contrast administration, helical CT angiography of the neck was performed. Source data was reformatted into 3D MIP projections. Delayed post contrast acquisition was also obtained. Auto Exposure Controls were utilized during the CT exam to meet ALARA standards for radiation dose reduction. INDICATION: Acute on chronic strokes with vertebral artery occlusion CORRELATED with head CTs of one-day prior as well as brain MRI of earlier this same date. CT HEAD: Precontrast and delayed postcontrast enhanced head CT now shows subtle visualization of edema in the inferomedial left cerebellar hemisphere where infarct was well visualized on earlier brain MRI. No evidence for its hemorrhagic transformation. Old right frontoparietal areas of encephalomalacia are stable and chronic. No abnormal parenchymal or meningeal enhancement on the delayed postcontrast enhanced images found. CT ANGIOGRAM NECK: Aortic arch and branching pattern of the great vessels was normal. There is a diminutive right cervical vertebral artery which occludes at the C2 level. The cervical left vertebral artery is dominant however that vessel occludes just below the level of the skull base. There is calcified and soft plaques at the carotid bulbs and bifurcations extending into the proximal ICAs bilaterally, without hemodynamically significant degree of narrowing. CT ANGIOGRAM HEAD: The intradural vertebral arteries bilaterally are occluded. There is presumed retrograde flow and collateralization in the basilar artery with opacification of the right PICA. The left PICA is not visualized. The basilar tip is patent and there is flow in the bilateral [employer] segments. The right [employer] is in origin off the right internal carotid. There is a left-sided PCOM present which is patent. The bilateral [employer] segments are patent. The intracranial ICAs are calcified at their cavernous segments with mild diffuse narrowing. No hemodynamically significant focal stenosis found. The left A1 segment is atretic or absent. The right patent. The ACOM is patent and there is opacification of the bilateral anterior cerebral arteries. The bilateral middle cerebral arteries and their primary segments appeared patent. IMPRESSION: Dominant left cervical vertebral occludes just below the skull base. The atretic small caliber right vertebral cannot be identified as patent beyond the C2 level. The cervical carotid showed calcified and soft plaque without hemodynamically significant degrees of narrowing. CT ANGIOGRAM HEAD: Occlusion of the bilateral intradural vertebral arteries and left PICA. There is flow in the basilar probably collateralized via the anterior circulation with a origin of the right [employer] via the anterior circulation and a patent contralateral left PCOM. Bilateral exploration driller and basilar patent and calcified plaques of the left greater than right cavernous segments of the intracranial carotids resulted in no hemodynamically significant stenosis. There is an atrophic or absent left A1 segment with widely patent right A1 segment with opacified ACOM and bilateral anterior cerebral arteries. The bilateral middle cerebral arterial segments showed no thrombus, aneurysm or significant stenosis. No aneurysm identified. HEAD CT shows old remote right-sided infarcts with new visualization of faint edema associated with the known left inferomedial left cerebellar hemispheric infarct along the PICAs distribution. No findings of hemorrhagic transformation of known stroke. Dictated by: Dictated on workstation # [id number]
--- NOTE | 2021-05-22 19:52 | Progress Note ---
Subjective Subjective/Events-last exam Received call from Radiology at 1721, MRI showed acute infarct in left inferior medial cerebellum and lateral posterior brainstem medulla correlating to the left vertebral artery and left PICA distribution. Possible occlusion of left vertebral artery and left proximal basilar artery, plus small acute infarct of high lateral posterior left frontal lobe. Discussed with Neuro stroke call physician who noted that vertebral occlusion would rarely be intervened on, but did agree with CTA for evaluation to confirm. CTA head and neck ordered, discussed results with Neuro stroke call physician about 1920, which showed dominant left cervical vetebral artery occluded just below skull base, and atretic right vertebral could not be confirmed patent beyond C2, as well as occlusion of bilateral intradural vertebral arteries and left PICA. They confirmed that intervention would not be beneficial with these findings, and did note high concern for recurrent/worsening stroke given the involvement and recommended continued permissive hypertension, probably up to 180-200 and even up to 180 at discharge with slower treatment outpatient. These findings were discussed with his via telephone at about 1945. Objective Exam Last Set of Vital Signs Vital Signs Date Time Temp Pulse Resp B/P (MAP) Pulse Ox O2 Delivery O2 Flow Rate FiO2 05/22/21 18:00 59 24 166/76 93 Room Air 05/22/21 16:00 36.2 05/21/21 23:22 21 Capillary Refill : Less Than 3 Seconds I&O Intake and Output 05/22/21 00:00 Intake Total 0 ml Balance 0 ml Intake Oral 0 ml Daily Weight Change No Results/Procedures Lab Laboratory Tests 05/22/21 04:59: White Blood Count 13.5H, Red Blood Count 6.02H, Hemoglobin 17.5, Hematocrit 53, Mean Corpuscular Volume 87, Mean Corpuscular Hemoglobin 29, Mean Corpuscular Hemoglobin Concent 33, Red Cell Distribution Width 13.9, Platelet Count 280, Mean Platelet Volume 10.3, Immature Granulocyte % (Auto) 0, Neutrophils (%) (Auto) 90H, Lymphocytes (%) (Auto) 6L, Monocytes (%) (Auto) 4, Eosinophils (%) (Auto) 0, Basophils (%) (Auto) 0, Neutrophils # (Auto) 12.1H, Lymphocytes # (Auto) 0.7L, Monocytes # (Auto) 0.6, Eosinophils # (Auto) 0.0, Basophils # (Auto) 0.0, Immature Granulocyte # (Auto) 0.0, Neutrophils % (Manual) 87, Lymphocytes % (Manual) 10, Monocytes % (Manual) 2, Band Neutrophils 1, Sodium Level 141, Potassium Level 4.5, Chloride Level 104, Carbon Dioxide Level 21, Anion Gap 16H, Blood Urea Nitrogen 25H, Creatinine 1.51H, Estimat Glomerular Filtration Rate 45, BUN/Creatinine Ratio 17, Glucose Level 145H, Calcium Level 9.9, Corrected Calcium 9.7, Phosphorus Level 2.4, Magnesium Level 2.0, Total Bilirubin 0.6, Aspartate Amino Transf (AST/SGOT) 23, Alanine Aminotransferase (ALT/SGPT) 22, Alkaline Phosphatase 146H, Total Protein 7.6, Albumin 4.2, Triglycerides Level 47, Cholesterol Level 156, LDL Cholesterol Direct 102, VLDL Cholesterol 9, HDL Cholesterol 49 05/22/21 06:00: Urine Color YELLOW, Urine Clarity CLEAR, Urine pH 7.0, Urine Specific [place] 1.020, Urine Protein 2+H, Urine Glucose (UA) TRACEH, Urine Ketones NEGATIVE, Urine Nitrite NEGATIVE, Urine Bilirubin NEGATIVE, Urine Urobilinogen 0.2, Urine Leukocyte Esterase NEGATIVE, Urine RBC (Auto) NEGATIVE, Urine RBC 0-2, Urine WBC 0-2, Urine Crystals NONE, Urine Bacteria TRACE, Urine Casts NONE, Urine Mucus NEGATIVE, Urine Culture Indicated NO 05/22/21 09:29: Glucometer 122H Microbiology 05/21/21 MRSA Screen - Final, Complete MRSA not isolated Radiology CT head negative Assessment/Plan Assessment/Plan (1) Cerebrovascular accident Status: Acute Assessment & Plan: Neuro exam stable with vertigo, blurry vision and dysarthria and left sided weakness. Bilateral vertebral artery occlusion and left PICA occlusions seen on CTA. No significant improvement after tenectaplase. See HPI for discussion with Neuro stroke physician. Currently allowing hypertension, and treating with statin. Antiplatelets held due to tenectasplase. -PT/OT/ST Qualifiers: Qualified Codes: I63.212 - Cerebral infarction due to unspecified occlusion or stenosis of left vertebral artery (2) HTN (hypertension) Status: Chronic Assessment & Plan: History of HTN on amlodipine 10 mg outpatient. Allowing for permissive hypertension here with BP 140-150 systolic overnight without treatment, will allow BP up to 180 without resuming treatment at this time. Qualifiers: Qualified Codes: I10 - Essential (primary) hypertension (3) CAD (coronary artery disease) Status: Chronic Assessment & Plan: History of CAD s/p 5V CABG in 2009 with most recent stent placed 08/2018 and recent negative stress test on DAPT outpatient. -Holding DAPT temporarily after tenecteplase -Resume DAPT 05/23 for CVA (4) CKD (chronic kidney disease) Status: Chronic Assessment & Plan: CKD3b with creatinine at baseline 1.51. -Daily BMP Qualifiers: Qualified Codes: N18.32 - Chronic kidney disease, stage 3b (5) History of seizure Status: Chronic Assessment & Plan: Patient reports 1 GTC seizure following his stroke in 03/2020 on Keppra outpatient. -Continue keppra 500 mg BID (6) Hypothyroidism Assessment & Plan: On synthroid 112 mcg daily outpatient. -Check TSH -Continue home synthroid Clinical Quality Measures DVT/VTE Risk/Contraindication: Contraindications-Pharm: Other *list below* Contraindications-Mechi: Other *list below* Other: tpa KASIE PUGH MD May 22, 2021 19:52
[2021-05-23 05:23] LABS: BASOPHILS % (AUTO) 0 % (0-10); EOSINOPHILS # (AUTO) 0.1 10^3/uL (0.0-0.3); EOSINOPHILS % (AUTO) 1 % (0-10); HEMATOCRIT 54 % (40-54); HEMOGLOBIN 17.5 g/dL (13.3-17.7); LYMPHOCYTES # (AUTO) 1.5 10^3/uL (1.0-4.0); LYMPHOCYTES % (AUTO) 12 % (12-44); MEAN CORPUSCULAR HEMOGLOBIN 29 pg (25-34); MEAN CORPUSCULAR HGB CONC 33 g/dL (32-36); MEAN CORPUSCULAR VOLUME 88 fL (80-99); MEAN PLATELET VOLUME 10.9 fL (9.0-12.2); MONOCYTES # (AUTO) 1.1 10^3/uL (0.0-1.0); MONOCYTES % (AUTO) 9 % (0-12); NEUTROPHILS % (AUTO) 79 % (42-75); PLATELET COUNT 277 10^3/uL (130-400); WHITE BLOOD COUNT 12.7 10^3/uL (4.3-11.0)
[2021-05-23 05:36] LABS: ALBUMIN 3.9 GM/DL (3.2-4.5); POTASSIUM 4.2 MMOL/L (3.6-5.0)
[2021-05-23 05:38] LABS: CALCIUM 9.6 MG/DL (8.5-10.1)
[2021-05-23 05:39] LABS: TOTAL PROTEIN 7.1 GM/DL (6.4-8.2)
[2021-05-23 05:41] LABS: BILIRUBIN,TOTAL 0.5 MG/DL (0.1-1.0)
[2021-05-23 05:43] LABS: CREATININE SERUM 1.54 MG/DL (0.60-1.30)
[2021-05-23 05:46] LABS: MAGNESIUM 2.1 MG/DL (1.6-2.4)
[2021-05-23] MEDS: MAGNESIUM 1 GM/100 ML IVPB 100 ML IV SCH (06:07)
[2021-05-23] MEDS: POTASSIUM CL 10MEQ/50ML IVPB 50 ML IV SCH (06:07)
[2021-05-23] MEDS: KCL 20 MEQ TAB (K-DUR) PO SCH (06:07)
[2021-05-23] MEDS: LEVOTHYROXINE 112 MCG (LEVOTHROID) TAB PO SCH (06:07)
[2021-05-23] MEDS: ASPIRIN 81 MG CHEW (CHILDREN'S ASA) PO SCH (08:46)
[2021-05-23] MEDS: SENNA W/DOCUSATE (SENOKOT S) TABLET PO SCH ×2 (08:46→20:00)
[2021-05-23] MEDS: DOCUSATE SODIUM 100 MG (COLACE) CAP PO SCH (08:47)
--- NOTE | 2021-05-23 09:43 | Physical Therapy Evaluation ---
PT Evaluation-General Medical Diagnosis Admission Date May 21, 2021 at 20:28 Medical Diagnosis: CVA Onset Date: May 22, 2021 Therapy Diagnosis Therapy Diagnosis: generalized weakness/debility Height/Weight Height (Feet): 5 Height (Inches): 9.00 Weight (Pounds): 200 Weight (Ounces): 0.0 Precautions Precautions/Isolations: Fall Prevention, Standard Precautions Referral Physician: Samm Reason for Referral: Evaluation/Treatment Medical History Pertinent Medical History: CABG, CAD, HTN Current History EMs secondary to dizziness, nausea, HTN Reviewed History: Yes Social History Home: Single Level Current Living Status: Spouse Entry Into Home: Ramp Prior Prior Level of Function SCALE: Activities may be completed with or without assistive devices. 0-Bgrgrbmmlg-riphdle completes the activity by him/herself with no assistance from a helper. 5-Set-up or Clean-up Assistance-helper sets up or cleans up; patient completes activity. [place] assists only prior to or following the activity. 4-Supervision or Touching Assistance-helper provides verbal cues and/or touching/steadying and/or contact guard assistance as patient completes activity. Assistance may be provided throughout the activity or intermittently. 3-Partial/Moderate Assistance-helper does LESS THAN HALF the effort. [place] lifts, holds or supports trunk or limbs, but provides less than half the effort. 2-Substantial/Maximal Assistance-helper does MORE THAN HALF the effort. [place] lifts or holds trunk or limbs and provides more than half the effort. 3-Sprgqckcq-iotcpw does ALL the effort. Patient does none of the effort to complete the activity. Or, the assistance of 2 or more helpers is required for the patient to complete the activity. If activity was not attempted, code reason: 7-Patient Refused. 9-Not Applicable-not attempted and the patient did not perform the activity before the current illness, exacerbation or injury. 10-Not Attempted due to Environmental Limitations-(lack of equipment, weather restraints, etc.). 88-Not Attempted due to Medical Conditions or Safety Concerns. Bed Mobility: 6 Transfers (B,C,W/C): 6 Gait: 6 Stairs: 6 Indoor Mobility (Ambulation): Independent Stairs: Independent Prior Devices Use: None PT Evaluation-Current Subjective Patient agrees to PT. C/o dizziness in supine. Pain Numeric Pain Scale: 0-No Pain Location: No Pain Reported Objective Patient Orientation: Normal For Age Attachments: Lake Catheter ROM/Strength ROM Lower Extremities bilateral LE WFL Strength Lower Extremities right knee flexion/extension 4-/5; hip flexion 4-/5 left knee flexion/extension 3/5; hip flexion 3/5 Integumentary/Posture Bladder Incontinence: [place] Cath Posture WFL Neuromuscular (Tone, Coordination, Reflexes) diminished coordination due to CVA Sensory Vision: blurry Hearing: Functional Sensation Right Lower Extremit: Intact Sensation Left Lower Extremity: Impaired Transfers Roll Left to Right (QC): 6 Sit to Lying (QC): 4 Lying to Sitting/Side of Bed(Q: 4 Sit to Stand (QC): 3 Chair/Yft-pf-Irfzo Xfer(QC): 3 unsteady due to dizziness requiring PT assist to attain safely Gait Does the Patient Walk?: No and Walking Goal IS indicated Walk 10 feet (QC): 88 Walk 50 ft with 2 Turns(QC): 88 Walk 150 ft (QC): 88 Gait Assistive Device: FWW Balance Sitting Static: Fair Sitting Dynamic: Fair Standing Static: Fair Standing Dynamic: Fair (Fair -) Assessment/Needs 75 y.o. male, will benefit from skilled PT to address functional strength and mobility to improve current LOF. Rehab Potential: Fair PT Motocross Racer Goals Intermediate Goals PT Motocross Racer Goals Time Frame: Jun 24, 2021 Roll Left & Right (QC): 6 Sit to Lying (QC): 6 Lying-Sitting on Side/Bed(QC): 6 Sit to Stand (QC): 4 Chair/Rys[place]hi-Lytzt Xfer(QC): 4 Toilet Transfer (QC): 4 Car Transfer (QC): 4 Walk 10 feet (QC): 4 Walk 50ft with 2 Turns (QC): 4 Walk 150 ft (QC): 4 PT Plan Problem List Problem List: Activity Tolerance, Functional Strength, Safety, Balance, Gait, Transfer Treatment/Plan Treatment Plan: Continue Plan of Care Treatment Plan: Bed Mobility, Education, Functional Activity Zeb, Functional Strength, Gait, Safety, Therapeutic Exercise, Transfers Treatment Duration: Jun 24, 2021 Frequency: 6 times per week Estimated Hrs Per Day: .25 hour per day Patient and/or Family Agrees t: Yes Time/GCodes Time In: 740 Time Out: 758 Total Billed Treatment Time: 18 Total Billed Treatment 1 visit EVModC 18 min TAMIA SERRATO PT May 23, 2021 09:43
--- NOTE | 2021-05-23 10:32 | Tele-ICU Progress Note ---
Subjective Date Seen by a Provider: May 23, 2021 Time Seen by a Provider: 10:32 Sepsis Event Evaluation Height, Weight, BMI Height: 5'9.00" Weight: 200lbs. 0.0oz. [id number]; 31.23 BMI Method:Stated Exam Exam Patient acknowledged, consented, and participated in this virtual visit which was conducted using real time audio/video Vital Signs Date Time Temp Pulse Resp B/P (MAP) Pulse Ox O2 Delivery O2 Flow Rate FiO2 05/23/21 08:35 36.4 Room Air 05/23/21 08:15 69 43 95 Room Air 05/23/21 08:00 67 14 169/86 96 Room Air 05/23/21 07:45 73 94 Room Air 05/23/21 07:44 96 Room Air 05/23/21 07:30 74 17 95 Room Air 05/23/21 07:00 75 05/23/21 07:00 70 176/91 94 Room Air 05/23/21 06:00 65 11 169/81 93 Room Air 05/23/21 05:00 64 8 160/88 94 Room Air 05/23/21 04:00 65 156/89 92 Room Air 05/23/21 04:00 96 Room Air 05/23/21 03:08 37.0 Room Air 05/23/21 03:00 63 9 159/85 93 Room Air 05/23/21 02:00 68 9 163/89 95 Room Air 05/23/21 01:00 67 17 158/82 93 Room Air 05/23/21 01:00 67 05/23/21 00:00 95 Room Air 05/23/21 00:00 68 17 160/82 94 Room Air 05/23/21 00:00 36.6 Room Air 05/22/21 23:00 75 20 154/81 95 Room Air 05/22/21 22:00 69 10 165/83 94 Room Air 05/22/21 21:00 67 10 161/85 95 Room Air 05/22/21 20:00 61 10 168/84 91 Room Air 05/22/21 20:00 36.4 05/22/21 20:00 97 Room Air 05/22/21 19:00 69 05/22/21 19:00 Room Air 05/22/21 19:00 69 8 164/88 94 Room Air 05/22/21 18:00 59 24 166/76 93 Room Air 05/22/21 17:00 56 13 170/82 05/22/21 16:00 96 Room Air 05/22/21 16:00 36.2 05/22/21 16:00 55 14 141/68 05/22/21 15:00 56 16 153/76 05/22/21 14:00 60 10 143/70 Room Air 05/22/21 13:00 67 05/22/21 13:00 66 12 156/77 Room Air 05/22/21 12:00 65 11 153/74 95 Room Air 05/22/21 12:00 96 Room Air 05/22/21 11:25 36.6 05/22/21 11:00 66 11 142/72 92 Room Air I & O 05/23/21 07:00 Intake Total 1150 ml Output Total 1500 ml Balance -350 ml Height & Weight Height: 5'9.00" Weight: 200lbs. 0.0oz. [id number]; 31.23 BMI Method:Stated General Appearance: No Apparent Distress Capillary Refill: Less Than 3 Seconds Gastrointestinal: normal bowel sounds, non tender, soft Results Lab Laboratory Tests 05/21/21 18:40 05/22/21 04:59 05/23/21 04:50 Assessment/Plan Assessment/Plan (Tele-ICU Physician , Progress Note ) Available chart/ vitals / labs / Images reviewed Video assessment done using teleICU camera, rest of exam as per RN Discussed with RN , EXAM PER RN Events overnight : Afebrile FiO2 - ra I/O = Drips: Pressors: , hemodynamically stable Consultants: Hospital course: 05/21- 75 y/o with previous Hx of CVA, experienced severe dizziness, dysarthria and facial droop. - s/p TNCPL A/P Acute stroke ( with h/o CVA on 04/02/20 -s/p tenecteplase 05/21, CTH 24 h - stable -neurocheck/NIHSS/VS monitoring per stroke order set protocol -IV hydralazine and labetalol PRN for BP >185/105- WILL DECREASE PARAMETHERS TODAY TO 160 SBP -Antithrombotic medication plan as per bedside leukocytosis - reactive - follow CKD - stable CAD -ECHO 05/22- EF 70% , - follow h/o sz - on keppra po Lines : per (Central Line Necessity Reviewed) [place]: = need to take out today OG: Nutrition: s/p swallow ebval Analgesia: Anxiety/ delirium VTE Prophylaxis: scd Stress Ulcer Prophylaxis: po intake Glycemic Control: Plans in collaboration with bedside consultants and IM MDs. Discussed with RN to reach out if any questions or concerns A total of 31 minutes of critical care time was devoted to this patient today, required to treat and/or prevent further deterioration of critical care condition ( as above) . NERY VARGAS MD May 23, 2021 10:32
--- NOTE | 2021-05-23 11:05 | Occupational Therapy Eval ---
OT Evaluation-General/PLF Medical Diagnosis Admission Date May 21, 2021 at 20:28 Medical Diagnosis: CVA Onset Date: May 22, 2021 Therapy Diagnosis Therapy Diagnosis: Impaired adls, balance, strength, vision, endurance Height/Weight Height (Feet): 5 Height (Inches): 9.00 Weight (Pounds): 200 Weight (Ounces): 0.0 Precautions Precautions/Isolations: Fall Prevention, Standard Precautions Referral Physician: Samm Referral Reason: Evaluation/Treatment Medical History Pertinent Medical History: CABG, CAD, HTN Current History Presents to ED with c/o dizziness, nausea, HTN. MRI shows acute infarct in L inferior medial cerebellum and lateral posterior branstem medulla correlating to the left vertebral artery and left PICA distribution. Possible occlusion of left vertebral artery and left proximal basilar artery, plus small acute infarct of high lateral posterior left frontal lobe. History of residual left-sided deficits from CVA in 2019. Per patient, he lives in home with spouse and was indep with adls. No AD used, still drives. Social History Home: Single Level Current Living Status: Spouse Entry Into Home: Ramp ADL-Prior Level of Function SCALE: Activities may be completed with or without assistive devices. 4-Tjnlgldscq-wzunzmm completes the activity by him/herself with no assistance from a helper. 5-Set-up or Clean-up Assistance-helper sets up or cleans up; patient completes activity. [place] assists only prior to or following the activity. 4-Supervision or Touching Assistance-helper provides verbal cues and/or touching/steadying and/or contact guard assistance as patient completes activity. Assistance may be provided throughout the activity or intermittently. 3-Partial/Moderate Assistance-helper does LESS THAN HALF the effort. [place] lifts, holds or supports trunk or limbs, but provides less than half the effort. 2-Substantial/Maximal Assistance-helper does MORE THAN HALF the effort. [place] lifts or holds trunk or limbs and provides more than half the effort. 5-Ffttswhlk-fcqsbp does ALL the effort. Patient does none of the effort to comp lete the activity. Or, the assistance of 2 or more helpers is required for the patient to complete the activity. If activity was not attempted, code reason: 7-Patient Refused. 9-Not Applicable-not attempted and the patient did not perform the activity before the current illness, exacerbation or injury. 10-Not Attempted due to Environmental Limitations-(lack of equipment, weather restraints, etc.). 88-Not Attempted due to Medical Conditions or Safety Concerns. Self Care: Independent Functional Cognition: Independent Drive Self: Yes OT Current Status Subjective Pt denies pain, but does c/o dizziness in supine. Appearance Sitting in chair at therapy departure. All needs within reach. Mental Status/Objective Patient Orientation: Person, Situation Attachments: [place] Catheter, IV, Oxygen, Telemetry Current Glasses/Contacts: Yes Hearing Aids: No Hand Dominance: Right Upper Extremity ROM WFL, slowed movements with Left Upper Extremity Coordination Impaired finger to nose and dysdiadochokinesia Upper Extremity Strength RUE: WNL LUE: 3/5 throughout Fair tracking, presents with slight nystagmus L eye. ADL-Treatment Eating (QC): 4 Shower/Bathe Self (QC): 2 (per clinical judgment) Upper Body Dressing (QC): 3 (per clinical judgment) Lower Body Dressing (QC): 2 (per clinical judgement) On/Off Footwear (QC): 3 (min) Toileting Hygiene (QC): 1 Pt laying supine in bed at therapy arrival, agreeable to treatment. Able to sit EOB with SBA-CGA. Fair sitting balance. With prolong sitting, pt lists Left. Able to correct with visual/verbal cues but unable to sustain. Intermittent assist for sitting balance; especially during dynamic tasks such as donning socks. With balance assist, pt able to perform cross over method to don marco a socks. Extra time due to impaired coordination with Left UE. Mod-max a to stand. Balance assist needed in standing due to dizziness. Unable to maintain balance without 2UE support, thus assist will be needed with clothing management during toileting/dressing tasks at this time. Education OT Patient Education: Correct positioning, Progress toward Goal/Update tx plan, Purpose of tx/functional activities, Rehab process, Safety issues, Transfer techniques Teaching Recipient: Patient Teaching Methods: Demonstration, Discussion Response to Teaching: Verbalize Understanding, Return Demonstration, Reinforcement Needed OT Senior Living Goals Senior Living Goals Time Frame: Jun 24, 2021 Eating (QC): 6 Oral Hygiene (QC): 5 Toileting Hygiene (QC): 4 Shower/Bathe Self (QC): 5 Upper Body Dressing (QC): 5 Lower Body Dressing (QC): 4 On/Off Footwear (QC): 5 1=Demonstrate adherence to instructed precautions during ADL tasks. 2=Patient will verbalize/demonstrate understanding of assistive devices/modifications for ADL. 3=Patient will improve strength/tolerance for activity to enable patient to perform ADL's. OT Education/Plan Problem List/Assessment Assessment: Decreased Activ Tolerance, Decreased Safety Aware, Decreased UE Strength, Impaired Cognition, Impaired Coordination, Impaired Funct Balance, Impaired I ADL's, Impaired Self-Care Skills, Restricted Funct UE ROM, Visual- Perceptual Deficit Discharge Recommendations Plan/Recommendations: Continue POC Therapy Discharge Recommendati: Post Acute OT Target Placement Pt would benefit from ARU stay Treatment Plan/Plan of Care Treatment,Training & Education: Yes Patient would benefit from OT for education, treatment and training to promote independence in ADL's, mobility, safety and/or upper extremity function for ADL's. Plan of Care: ADL Retraining, Functional Mobility, Group Exercise/Act as Ind, UE Funct Exercise/Act, UE Neuromus Re-Ed/Coord, Visual/Perceptual Retrain Treatment Duration: Jun 24, 2021 Frequency: 5 times per week Estimated Hrs Per Day: .25 hour per day Agreement: Yes Rehab Potential: Fair Time/GCodes Start Time: 07:42 Stop Time: 07:58 Total Time Billed (hr/min): 16 Billed Treatment Time 1 visit, Alba Apodaca OT May 23, 2021 11:05
--- NOTE | 2021-05-23 13:12 | Progress Note ---
CYNTHIA COVINGTON MD 05/23/21 1312: Subjective Subjective/Events-last exam Yesterday, echo obtained showing PFO, G1DD, EF 70-75%. MRI obtained and showed infarcted area in the distribution of the left vertebral and PICA. Follow up CTA showed occlusion of bilateral vertebral arteries and left PICA, which was discussed with neurology, who recommended medical management. No acute events overnight. Patient today reports that he continues to improve and actually wants to go home. Unable to walk on his own. Persistent dizziness when sitting up, but improving left arm ataxia and left leg weakness. No chest pain, SOB, abdominal pain, N/V/D. Objective Exam Last Set of Vital Signs Vital Signs Date Time Temp Pulse Resp B/P (MAP) Pulse Ox O2 Delivery O2 Flow Rate FiO2 05/23/21 11:33 98 Room Air 05/23/21 08:35 36.4 05/23/21 08:15 69 43 05/23/21 08:00 169/86 05/21/21 23:22 21 Capillary Refill : Less Than 3 Seconds I&O Intake and Output 05/23/21 00:00 Intake Total 1110 ml Output Total 2350 ml Balance -1240 ml Intake Oral 910 ml IV Total 200 ml Output Urine Total 2350 ml General: Alert, Oriented X3, Cooperative HEENT: Atraumatic Neck: Supple, No JVD Lungs: Clear to Auscultation, Normal Air Movement Heart: Regular Rate, Normal S1, Normal S2, No Murmurs Abdomen: Normal Bowel Sounds, Soft Extremities: No Edema Skin: No Rashes Neuro: Other (PERRLA, EOMI. Decreased nystagmus. Motor: 5/5 RUE, 4/5 LUE, 4+/5 RLE, 4-/5 LLE. Ataxia of left arm on FTN.) Psych/Mental Status: Mental Status NL Results/Procedures Lab Laboratory Tests 05/23/21 04:50: White Blood Count 12.7H, Red Blood Count 6.09H, Hemoglobin 17.5, Hematocrit 54, Mean Corpuscular Volume 88, Mean Corpuscular Hemoglobin 29, Mean Corpuscular Hemoglobin Concent 33, Red Cell Distribution Width 14.3, Platelet Count 277, Mean Platelet Volume 10.9, Immature Granulocyte % (Auto) 1, Neutrophils (%) (Auto) 79H, Lymphocytes (%) (Auto) 12, Monocytes (%) (Auto) 9, Eosinophils (%) (Auto) 1, Basophils (%) (Auto) 0, Neutrophils # (Auto) 10.0H, Lymphocytes # (Auto) 1.5, Monocytes # (Auto) 1.1H, Eosinophils # (Auto) 0.1, Basophils # (Auto) 0.0, Immature Granulocyte # (Auto) 0.1, Sodium Level 142, Potassium Level 4.2, Chloride Level 106, Carbon Dioxide Level 21, Anion Gap 15H, Blood Urea Nitrogen 25H, Creatinine 1.54H, Estimat Glomerular Filtration Rate 44, BUN/Cr eatinine Ratio 16, Glucose Level 115H, Calcium Level 9.6, Corrected Calcium 9.7, Phosphorus Level 3.0, Magnesium Level 2.1, Total Bilirubin 0.5, Aspartate Amino Transf (AST/SGOT) 23, Alanine Aminotransferase (ALT/SGPT) 21, Alkaline Oscar sphatase 131, Total Protein 7.1, Albumin 3.9, Thyroid Stimulating Hormone (TSH) 0.87 Microbiology 05/21/21 MRSA Screen - Final, Complete MRSA not isolated Radiology CT head negative Assessment/Plan Assessment/Plan Admission Dx Cerebrovascular accident Admission Status: Inpatient Order (span 2 midnights) Reason for Inpatient Admission: CVA (1) Cerebrovascular accident Status: Acute Assessment & Plan: Neuro exam stable with vertigo, blurry vision and dysarthria and left sided weakness. Bilateral vertebral artery occlusion and left PICA occlusions seen on CTA. No significant improvement after tenectaplase. Case discussed with neurology who has recommended medical management. -ASA, clopidogrel resumed -Atorvastatin -Permissive HTN, holding scheduled antihypertensives -Cardiology consulted given CVA, possible PFO on echo -PT/OT/ST -Transfer to floor Qualifiers: Qualified Codes: I63.212 - Cerebral infarction due to unspecified occlusion or stenosis of left vertebral artery (2) HTN (hypertension) Status: Chronic Assessment & Plan: History of HTN on amlodipine 10 mg outpatient. Allowing for permissive hypertension here off of scheduled anti-hypertensives. Qualifiers: Qualified Codes: I10 - Essential (primary) hypertension (3) CAD (coronary artery disease) Status: Chronic Assessment & Plan: History of CAD s/p 5V CABG in 2009 with most recent stent placed 08/2018 and recent negative stress test. -On ASA (4) CKD (chronic kidney disease) Status: Chronic Assessment & Plan: CKD3b with creatinine at baseline. -Daily BMP Qualifiers: Qualified Codes: N18.32 - Chronic kidney disease, stage 3b (5) History of seizure Status: Chronic Assessment & Plan: Patient reports 1 GTC seizure following his stroke in 03/2020 on Keppra outpatient. -Continue keppra 500 mg BID (6) Hypothyroidism Assessment & Plan: On synthroid 112 mcg daily outpatient. TSH normal. -Continue home synthroid Clinical Quality Measures DVT/VTE Risk/Contraindication: Contraindications-Pharm: Other *list below* Contraindications-Mechi: Other *list below* Other: tpa KASIE PUGH MD 05/23/21 1537: Supervisory-Addendum Brief Supervisory Addendum I personally have seen and evaluated the patient and agree with documentation by PGY3 Cornelio Covington MD. CYNTHIA COVINGTON MD May 23, 2021 13:12 KASIE PUGH MD May 23, 2021 15:37
--- NOTE | 2021-05-23 13:23 | Speech Therapy Daily Note ---
Speech Daily Progress Note Subjective Date Seen by Provider: May 23, 2021 Time Seen by Provider: 00:15 Patient states he is feeling better and wants to go home. He does c/o of dizziness when sitting up. Objective Patient is demonstrating safer oral intake with utilization of compensatory strategies as directed with 25% verbal cues. Assessment Assessment Current Status: Good Progress Speech Short Term Goals Short Term Goals Short Term Goals 1) Patient will tolerate least restrictive diet level with 90% or greater. 2) Patient will utilize compensatory strategies as trained for safe oral intake at 90% or greater. Speech Retirement Goals [place] Consultant Goals The patient will maintain adequate nutrition/hydration via safe effective swallow function. Speech-Plan Patient/Family Goals Patient/Family Goals: Patient's discharge plans are unknown at this time, although the patient states he wants to go home. Treatment Plan Speech Therapy Treatment Plan: Continue Plan of Care Treatment Duration: May 26, 2021 Frequency: 3 times per week Estimated Hrs Per Day: .25 hour per day Rehab Potential: Fair Barriers to Learning: Patient's CVA, current and previous, debility Pt/Family Agrees to Plan: Yes Safety Risks/Education Teaching Recipient: Patient Teaching Methods: Demonstration, Discussion Response to Teaching: Verbalize Understanding, Return Demonstration Education Topics Provided: Continued safety with oral intake and utilization of compensatory strategies. Time Speech Therapy Time In: 11:45 Speech Therapy Time Out: 12:00 Total Billed Time: 15 Billed Treatment Time AlvertoSAM BETHANIA ST May 23, 2021 13:23
[2021-05-23] MEDS: hydrALAZINE (APESOLINE) 20 MG/ML VIAL IV PRN (20:00)
[2021-05-24] MEDS: hydrALAZINE (APESOLINE) 20 MG/ML VIAL IV PRN (00:28)
[2021-05-24] MEDS: POTASSIUM CL 10MEQ/50ML IVPB 50 ML IV SCH (06:31)
[2021-05-24] MEDS: LEVOTHYROXINE 112 MCG (LEVOTHROID) TAB PO SCH (06:31)
[2021-05-24 06:47] LABS: BASOPHILS # (AUTO) 0.1 10^3/uL (0.0-0.1); BASOPHILS % (AUTO) 0 % (0-10); EOSINOPHILS % (AUTO) 0 % (0-10); HEMATOCRIT 48 % (40-54); HEMOGLOBIN 15.9 g/dL (13.3-17.7); LYMPHOCYTES # (AUTO) 2.1 10^3/uL (1.0-4.0); LYMPHOCYTES % (AUTO) 16 % (12-44); MEAN CORPUSCULAR HEMOGLOBIN 29 pg (25-34); MEAN CORPUSCULAR HGB CONC 33 g/dL (32-36); MEAN CORPUSCULAR VOLUME 87 fL (80-99); MEAN PLATELET VOLUME 10.8 fL (9.0-12.2); MONOCYTES # (AUTO) 1.3 10^3/uL (0.0-1.0); MONOCYTES % (AUTO) 10 % (0-12); NEUTROPHILS # (AUTO) 9.6 10^3/uL (1.8-7.8); NEUTROPHILS % (AUTO) 73 % (42-75); PLATELET COUNT 282 10^3/uL (130-400); WHITE BLOOD COUNT 13.1 10^3/uL (4.3-11.0)
[2021-05-24 07:04] LABS: ALBUMIN 3.4 GM/DL (3.2-4.5); POTASSIUM 3.9 MMOL/L (3.6-5.0)
[2021-05-24] MEDS: KCL 20 MEQ TAB (K-DUR) PO SCH (07:06)
[2021-05-24 07:09] LABS: BILIRUBIN,TOTAL 0.5 MG/DL (0.1-1.0)
[2021-05-24 07:10] LABS: PHOSPHORUS 2.9 MG/DL (2.3-4.7)
[2021-05-24 07:11] LABS: CREATININE SERUM 1.7 MG/DL (0.60-1.30)
[2021-05-24] MEDS: MAGNESIUM 1 GM/100 ML IVPB 100 ML IV SCH (07:31)
--- NOTE | 2021-05-24 07:44 | Consultation-Cardiology ---
HPI-Cardiology Cardiology Consultation: Date of Consultation 05/24/21 Time Seen by a Provider: 08:15 Date of Admission 05-21-21 Attending Physician Kasie Pugh MD Admitting Physician [facility] Consulting Physician Juan Alaniz MD HPI: Chief Complaint: CVA Mr. Church is a 75 yr old male who has been admitted to [facility] with CVA with left sided facial droop, left upper and lower extremity weakness, blurred vision and vertigo. He reports he was sitting at the computer when he had a sudden onset of blurred vision, nausea and vertigo. He denies any CP, SOB or palpitations. No c/o LE swelling. He feels the left sided weakness is improving. He continues to c/o dizziness and visual disturbances. He reports he has been compliant with his medications at home. Review of Systems-Cardiology Review of Systems Constitutional: No chills, No fever Eyes: As described under HPI Ears/Nose/Throat: No epistaxis, No nasal drainage Respiratory: As described under HPI Cardiovascular: As described under HPI Gastrointestinal: As described under HPI Genitourinary: No dysuria Musculoskeletal: no symptoms reported Skin: No rash on exposed areas, No ulcerations on exposed areas Psychiatric/Neurological: As described under HPI Hematologic: No bleeding abnormalities All Other Systems Reviewed Negative Unless Noted: Yes ETX-Whuolh-Vzclvz Hx Patient Social History Smoking Status: Never a Smoker 2nd Hand Smoke Exposure: No Have you traveled recently?: No Alcohol Use?: No Pt feels they are or have been: No Immunizations Up To Date Tetanus Booster (TDap): Unknown Date of Pneumonia Vaccine: Apr 02, 2017 Date of Influenza Vaccine: May 05, 2021 Past Medical History PMH As described under Assessment. Family Medical History Family Medical History: He reports a family h/o mother and father both having CAD. Family History: Cardiovascular disease 19 FATHER 19 MOTHER (CONGESTIVE HEART FAILURE) Diabetes mellitus 19 MOTHER FH: breast cancer 19 MOTHER Myocardial infarction 19 FATHER Allergies and Home Medications Allergies Coded Allergies: No Known Food Allergies (Verified Allergy, Unknown, 05/21/21) Patient Home Medication List Allopurinol (Allopurinol) 100 Mg Tablet, 50 MG PO DAILY, (Reported) Entered as Reported by: KARRI CONTI on 09/15/20 7822 Last Action: Reviewed Amlodipine Besylate (Amlodipine Besylate) 10 Mg Tablet, 10 MG PO DAILY, (Reported) Entered as Reported by: FLOR BRICEÑO on 08/26/18710 Last Action: Reviewed Aspirin (Aspirin) 81 Mg Tab.chew, 81 MG PO DAILY, (Reported) Entered as Reported by: FLOR BRICEÑO on 08/26/18710 Last Action: Reviewed Atorvastatin Calcium (Atorvastatin Calcium) 80 Mg Tablet, 80 MG PO DAILY, (Reported) Entered as Reported by: KARRI CONTI on 09/15/20952 Last Action: Reviewed Clopidogrel Bisulfate (Clopidogrel) 75 Mg Tablet, 75 MG PO DAILY, (Reported) Entered as Reported by: KARRI CONTI on 09/15/20952 Last Action: Continued Levetiracetam (Levetiracetam) 500 Mg Tablet, 500 MG PO BID, (Reported) Entered as Reported by: KARRI CONTI on 05/22/21903 Last Action: Continued Levothyroxine Sodium (Levothyroxine Sodium) 112 Mcg Tablet, 112 MCG PO DAILY, (Reported) Entered as Reported by: ROBERTO ROSADO on 12/05/171199 Last Action: Continued Multivitamin (Multivitamin) 1 Each Tablet, 1 EACH PO DAILY, (Reported) Entered as Reported by: KARRI CONTI on 09/15/20952 Last Action: Reviewed [place] 3 Polyunsat Fatty Acids (Fish Oil 1,000 mg Capsule) 1,000 Mg Cap, 1,000 MG PO BID, (Reported) Entered as Reported by: MONE LAM on 07/16/18 1006 Last Action: Reviewed Discontinued Medications Carvedilol (Carvedilol) 6.25 Mg Tablet, 6.25 MG PO BID, (Reported) Discontinued Reason: No Longer Taking Entered as Reported by: ROBERTO ROSADO on 12/05/17 1200 Last Action: Discontinued Physical Exam-Cardiology Physical Exam Vital Signs/I&O 05/23/21 05/23/21 05/24/21 05/24/21 23:30 23:31 00:28 01:37 Temp 36.9 37.8 37.8 37.8 Pulse 79 Resp 20 B/P (MAP) 177/79 Pulse Ox 92 O2 Delivery Room Air 05/24/21 05/24/21 03:27 07:41 Temp 36.5 37.0 Pulse 78 88 Resp 18 18 B/P (MAP) 144/75 134/81 Pulse Ox 93 95 O2 Delivery Room Air Room Air 05/23/21 23:59 Intake Total 650 ml Output Total 750 ml Balance -100 ml Capillary Refill : Less Than 3 Seconds Constitutional: AAO x 3, well-developed, well-nourished HEENT: hearing is well preserved, oral hygience is good Neck: carotid pulses are 2 + bilaterally Respiratory: No accessory muscle use, No respiratory distress; chest expansion is symmetric, chest is bilaterally symmetric, lungs clear to auscultation Cardiovascular: regular rate-rhythm, S1 and S2 Gastrointestinal: No tender; soft, round, audible bowel sounds Extremities: no lower extremity edema bilateral Neurologic/Psychiatric: other (LUE and LLE weakness 3/5; left sided facial droop) Skin: No rash on exposed areas, No ulcerations on exposed areas Data Review Labs Laboratory Tests 05/24/21 06:17: White Blood Count 13.1H, Red Blood Count 5.48, Hemoglobin 15.9, Hematocrit 48, Mean Corpuscular Volume 87, Mean Corpuscular Hemoglobin 29, Mean Corpuscular Hemoglobin Concent 33, Red Cell Distribution Width 14.4, Platelet Count 282, Mean Platelet Volume 10.8, Immature Granulocyte % (Auto) 1, Neutrophils (%) (Auto) 73, Lymphocytes (%) (Auto) 16, Monocytes (%) (Auto) 10, Eosinophils (%) (Auto) 0, Basophils (%) (Auto) 0, Neutrophils # (Auto) 9.6H, Lymphocytes # (Auto) 2.1, Monocytes # (Auto) 1.3H, Eosinophils # (Auto) 0.0, Basophils # (Auto) 0.1, Immature Granulocyte # (Auto) 0.1, Sodium Level 138, Potassium Level 3.9, Chloride Level 107, Carbon Dioxide Level 21, Anion Gap 10, Blood Urea Nitrogen 27H, Creatinine 1.70H, Estimat Glomerular Filtration Rate 40, BUN/Creatinine Ratio 16, Glucose Level 113H, Calcium Level 9.0, Corrected Calcium 9.5, Phosphorus Level 2.9, Magnesium Level 2.0, Total Bilirubin 0.5, Aspartate Amino Transf (AST/SGOT) 22, Alanine Aminotransferase (ALT/SGPT) 17, Alkaline Phosphatase 106, Total Protein 6.0L, Albumin 3.4 Microbiology 05/21/21 MRSA Screen - Final, Complete MRSA not isolated Radiology NAME: ALAN CHURCH [facility] REC#: [id number] PT STATUS: ADM IN : 1945 PHYSICIAN: KASIE PUGH MD ADMIT DATE: 05/21/21/ICU Signed Date of Exam:05/22/21 CT ANGIO HEAD/NECK PROCEDURE: CT angiography of the head and CT angiography of the neck with and without contrast. TECHNIQUE: Contiguous noncontrast images were obtained from the skull base through the vertex. After intravenous contrast administration, helical CT angiography of the neck was performed. Source data was reformatted into 3D MIP projections. Delayed post contrast acquisition was also obtained. Auto Exposure Controls were utilized during the CT exam to meet ALARA standards for radiation dose reduction. INDICATION: Acute on chronic strokes with vertebral artery occlusion CORRELATED with head CTs of one-day prior as well as brain MRI of earlier this same date. CT HEAD: Precontrast and delayed postcontrast enhanced head CT now shows subtle visualization of edema in the inferomedial left cerebellar hemisphere where infarct was well visualized on earlier brain MRI. No evidence for its hemorrhagic transformation. Old right frontoparietal areas of encephalomalacia are stable and chronic. No abnormal parenchymal or meningeal enhancement on the delayed postcontrast enhanced images found. CT ANGIOGRAM NECK: Aortic arch and branching pattern of the great vessels was normal. There is a diminutive right cervical vertebral artery which occludes at the C2 level. The cervical left vertebral artery is dominant however that vessel occludes just below the level of the skull base. There is calcified and soft plaques at the carotid bulbs and bifurcations extending into the proximal ICAs bilaterally, without hemodynamically significant degree of narrowing. CT ANGIOGRAM HEAD: The intradural vertebral arteries bilaterally are occluded. There is presumed retrograde flow and collateralization in the basilar artery with opacification of the right PICA. The left PICA is not visualized. The basilar tip is patent and there is flow in the bilateral PHYSICS INSTRUCTOR segments. The right PHYSICS INSTRUCTOR is in origin off the right internal carotid. There is a left-sided PCOM present which is patent. The bilateral PHYSICS INSTRUCTOR segments are patent. The intracranial ICAs are calcified at their cavernous segments with mild diffuse narrowing. No hemodynamically significant focal stenosis found. The left A1 segment is atretic or absent. The right patent. The ACOM is patent and there is opacification of the bilateral anterior cerebral arteries. The bilateral middle cerebral arteries and their primary segments appeared patent. IMPRESSION: Dominant left cervical vertebral occludes just below the skull base. The atretic small caliber right vertebral cannot be identified as patent beyond the C2 level. The cervical carotid showed calcified and soft plaque without hemodynamically significant degrees of narrowing. CT ANGIOGRAM HEAD: Occlusion of the bilateral intradural vertebral arteries and left PICA. There is flow in the basilar probably collateralized via the anterior circulation with a origin of the right PHYSICS INSTRUCTOR via the anterior circulation and a patent contralateral left PCOM. Bilateral optics engineer and basilar patent and calcified plaques of the left greater than right cavernous segments of the intracranial carotids resulted in no hemodynamically significant stenosis. There is an atrophic or absent left A1 segment with widely patent right A1 segment with opacified ACOM and bilateral anterior cerebral arteries. The bilateral middle cerebral arterial segments showed no thrombus, aneurysm or significant stenosis. No aneurysm identified. HEAD CT shows old remote right-sided infarcts with new visualization of faint edema associated with the known left inferomedial left cerebellar hemispheric infarct along the PICAs distribution. No findings of hemorrhagic transformation of known stroke. Dictated by: Dictated on workstation # [id number] Dict: 05/22/211825 Trans: 05/22/211846 [facility] [id number] Interpreted by: EMANI PATINO Electronically signed by: EMANI PATINO 05/22/211846 NAME: ALAN CHURCH Peggy [facility] REC#: [id number] PT STATUS: ADM IN : 1945 PHYSICIAN: FILIBERTO HERRERA DO ADMIT DATE: 05/21/21/ICU Signed Date of Exam:05/22/21 MRI BRAIN W/O CONTRAST Clinical indication: Patient with CVA Exam: MRI of the brain performed without IV contrast. Sequences include axial DWI, ADC map, coronal gradient echo, axial T2, axial FLAIR, axial T1, and sagittal T1. Comparison: None. Findings: There is a small to moderate sized area of diffusion restriction involving the medial inferior left cerebellar hemisphere and left lateral brainstem medulla. There is associated high T2 signal in these regions. There is no evidence of hemorrhagic transformation. There is a small area of diffusion restriction involving the high posterior lateral left frontal lobe region with associated high T2 signal. There is brain parenchymal volume loss. There is a total of moderate amount of chronic infarcts involving the parasagittal right frontal lobe periventricular region and lateral right parietal lobe region. There is no hydrocephalus, brain herniation, or midline shift. Basal cisterns are unremarkable. There is loss of flow void signal within the left cervical vertebral artery and either distal left intradural vertebral artery or proximal basilar artery. There are postoperative changes to both globes which may be related to lens implants. The extracranial soft tissues, skull, and orbits are otherwise unremarkable. Paranasal sinuses and mastoid air cells are clear. IMPRESSION: 1: There is a small to moderate sized area of acute infarct involving the inferior medial left cerebellum and lateral posterior brainstem medulla which correlates to the left vertebral artery and left PICA distribution. There is note of absence of flow void with abnormal increased T2 signal involving the left vertebral artery and possibly the left proximal basilar artery which may represent occlusion. CT angiogram of the head and neck is suggested for further evaluation. 2: There is small area of acute infarct involving the high lateral posterior left frontal lobe region. 3: Chronic cerebral infarct involving the right frontal lobe and right parietal lobe. Results of this report discussed with Kasie Pugh via the telephone on 05/22/2021 at 1725 hours. Dictated by: Dictated on workstation # [id number] Dict: 05/22/21 1656 Trans: 05/23/21 1732 [facility] [id number] Interpreted by: MOHSEN ANDRADE MD Electronically signed by: MOHSEN ANDRADE MD 05/23/21 1730 ECG Impression ECG Initial ECG Rhythm: S.Ernesto A/P-Cardiology Assessment/Admission Diagnosis CVA: - CVA 05-22-21 with resultant LUE, LLE weakness, facial droop, visual disturbance and vertigo - MRI of 05-22-21 There is a small to moderate sized area of acute infarct involving the inferior medial left cerebellum and lateral posterior brainstem medulla which correlates to the left vertebral artery and left PICA distribution. There is note of absence of flow void with abnormal increased T2 signal involving the left vertebral artery and possibly the left proximal basilar artery which may represent occlusion. CT angiogram of the head and neck is suggested for further evaluation. There is small area of acute infarct involving the high lateral posterior left frontal lobe region. Chronic cerebral infarct involving the right frontal lobe and right parietal lobe. - H/O CVA on 04/02/20 - MRI of 04/04/20: There is an acute cerebral infarct involving the right parietal lobe region with no evidence of hemorrhagic transformation, brain herniation or midline shift. Mild, persistent L hand weakness - S/p ILR on 04/04/20. No arrhythmia detected yet (recent ILR transmissions reviewed on 05-24-21 showed no evidence of arrhythmia) CAD: - Ac NSTEMI in early Jul 2018 that was treated with PCI (see below) - with h/o CABG x5 by Dr Engle at [facility] in 2009 - Cardiac cath of 07-16-18: 95% mid vessel stenosis of left anterior descending, proximal occlusion of the left circumflex, and 90-95% proximal stenosis of the right coronary artery; three out of four aortocoronary grafts (SVGs) are occluded; graft (to OM) was patent with 95% proximal stenosis and was successfully treated with Iris 3.0 x 23 mm stent; patent left internal mammary artery graft to distal left anterior descending artery; normal left ventricular end-diastolic pressure. - Last cath on 08/26/18: successful stenting of prox-to-mid RCA with Sierrra 2.25x28 mm stent. - Echocardiogram of 05-22-[address] Aguila showed LVEF 70-75%. Mod concentric hypertrophy. Paradoxical septal motion consistent with an intraventricular conduction delay. Grade 1 diastolic dysfunction. LA mild dilated. Possibe PFO with left to right shunt. Mild AoV sclerosis. - MPI of 02-03-21: no evidence of ischemia or infarction. LVEF 61% CKD 4: - stable after card cath and cor intervention of 07-16-18 (i.e, no evidence of contrast nephropathy on repeat lab work of 07-21-18) HLD: - statin tx - followed by PCP HTN: - controlled - [facility] stroke team advises BP be kept in the 160's systolic Hypothyroidism: - replacement tx - followed by PCP BPH: - h/o TURP H/o tobacco use: - quit many years ago Carotid dz: - Minimal bilat carotid plaque per carotid u/s of May 2019 Seizure disorder: - management per PCP Discussion and Recomendations CVA d/t verterbal artery occlusion - advise referral to tertiary care facility with neuro-vascular services Cardiac status appears clinically stable Management of stroke is per medical services and stroke team Monitor lab closely Continue Plavix and ASA\ Further recs will be based on his hospital course We would like to thank medical services for this consult Clinical Quality Measures DVT/VTE Risk/Contraindication: Contraindications-Pharm: Other *list below* Contraindications-Mechi: Other *list below* Other: tpa KAYLA DASILVA May 24, 2021 07:44
[2021-05-24] MEDS: ASPIRIN 81 MG CHEW (CHILDREN'S ASA) PO SCH (08:35)
[2021-05-24] MEDS: DOCUSATE SODIUM 100 MG (COLACE) CAP PO SCH (08:35)
[2021-05-24] MEDS: CLOPIDOGREL 75 MG (PLAVIX) TABLET PO SCH (08:35)
[2021-05-24] MEDS: SENNA W/DOCUSATE (SENOKOT S) TABLET PO SCH ×2 (08:36→20:24)
--- NOTE | 2021-05-24 10:05 | Occupational Ther Daily Note ---
OT Current Status-Daily Note Subjective Pt in bed, agreeable to therapy tx. Pt states he feels like he is doing better today compared with yesterday. ADL-Treatment Therapy Code Descriptions/Definitions Functional [place] Measure: 0=Not Assessed/NA 4=Minimal Assistance 1=Total Assistance 5=Supervision or Setup 2=Maximal Assistance 6=Modified [place] 3=Moderate Assistance 7=Complete IndependenceSCALE: Activities may be completed with or without assistive devices. 5-Ycibppnecd-ascxkhs completes the activity by him/herself with no assistance from a helper. 5-Set-up or Clean-up Assistance-helper sets up or cleans up; patient completes activity. [place] assists only prior to or following the activity. 4-Supervision or Touching Assistance-helper provides verbal cues and/or touching/steadying and/or contact guard assistance as patient completes activity. Assistance may be provided throughout the activity or intermittently. 3-Partial/Moderate Assistance-helper does LESS THAN HALF the effort. [place] lifts, holds or supports trunk or limbs, but provides less than half the effort. 2-Substantial/Maximal Assistance-helper does MORE THAN HALF the effort. [place] lifts or holds trunk or limbs and provides more than half the effort. 6-Vitmmbygl-ylznae does ALL the effort. Patient does none of the effort to complete the activity. Or, the assistance of 2 or more helpers is required for the patient to complete the activity. If activity was not attempted, code reason: 7-Patient Refused. 9-Not Applicable-not attempted and the patient did not perform the activity before the current illness, exacerbation or injury. 10-Not Attempted due to Environmental Limitations-(lack of equipment, weather restraints, etc.). 88-Not Attempted due to Medical Conditions or Safety Concerns. Other Treatment Pt laying in bed, transferred supine to sit EOB, then hand held assistance to transfer from EOB to recliner, min/mod A. Pt completed x10 reps each of the following BUE exercises in order to increase strength and activity tolerance: shoulder flexion, front punch and elbow flexion/extension. Pt had decreased coordination in LUE with movements. Post tx, pt in recliner, call light in reach and all needs met. Education OT Patient Education: Correct positioning, Modified ADL techniques, Progress toward Goal/Update tx plan, Purpose of tx/functional activities, Rehab process Teaching Recipient: Patient Teaching Methods: Discussion Response to Teaching: Verbalize Understanding OT [place] Goals [place] Goals Time Frame: Jun 24, 2021 Eating (QC): 6 Oral Hygiene (QC): 5 Toileting Hygiene (QC): 4 Shower/Bathe Self (QC): 5 Upper Body Dressing (QC): 5 Lower Body Dressing (QC): 4 On/Off Footwear (QC): 5 1=Demonstrate adherence to instructed precautions during ADL tasks. 2=Patient will verbalize/demonstrate understanding of assistive de vices/modifications for ADL. 3=Patient will improve strength/tolerance for activity to enable patient to perform ADL's. OT Education/Plan Problem List/Assessment Assessment: Decreased Activ Tolerance, Decreased UE Strength, Impaired Funct Balance, Impaired I ADL's, Impaired Self-Care Skills Discharge Recommendations Plan/Recommendations: Continue POC Treatment Plan/Plan of Care Patient would benefit from OT for education, treatment and training to promote independence in ADL's, mobility, safety and/or upper extremity function for AD L's. Plan of Care: ADL Retraining, Functional Mobility, Group Exercise/Act as Ind, UE Funct Exercise/Act, UE Neuromus Re-Ed/Coord, Visual/Perceptual Retrain Treatment Duration: Jun 24, 2021 Frequency: 5 times per week Estimated Hrs Per Day: .25 hour per day Agreement: Yes Rehab Potential: Fair Time/GCodes Start Time: 09:40 Stop Time: 09:50 Total Time Billed (hr/min): 10 Billed Treatment Time 1, REYES SHAMIR MENCHACA OT May 24, 2021 10:05
--- NOTE | 2021-05-24 11:09 | Physical Therapy Daily Note ---
PT Daily Note-Current Subjective Pt in bed upon arrival and agrees to therapy tx. Pt says he thinks he is doing better than he was yesterday. Mental Status Patient Orientation: Normal For Age Attachments: [place] Catheter Transfers SCALE: Activities may be completed with or without assistive devices. 8-Eplhphvhgx-zbxbnhd completes the activity by him/herself with no assistance from a helper. 5-Set-up or Clean-up Assistance-helper sets up or cleans up; patient completes activity. [place] assists only prior to or following the activity. 4-Supervision or Touching Assistance-helper provides verbal cues and/or touching/steadying and/or contact guard assistance as patient completes activity. Assistance may be provided throughout the activity or intermittently. 3-Partial/Moderate Assistance-helper does LESS THAN HALF the effort. [place] lifts, holds or supports trunk or limbs, but provides less than half the effort. 2-Substantial/Maximal Assistance-helper does MORE THAN HALF the effort. [place] lifts or holds trunk or limbs and provides more than half the effort. 5-Tpvyspcmq-flfdmj does ALL the effort. Patient does none of the effort to c omplete the activity. Or, the assistance of 2 or more helpers is required for the patient to complete the activity. If activity was not attempted, code reason: 7-Patient Refused. 9-Not Applicable-not attempted and the patient did not perform the activity before the current illness, exacerbation or injury. 10-Not Attempted due to Environmental Limitations-(lack of equipment, weather restraints, etc.). 88-Not Attempted due to Medical Conditions or Safety Concerns. Roll Left & Right (QC): 4 Lying to Sitting/Side of Bed(Q: 4 Sit to Stand (QC): 3 Chair/Tyd-ry-[place]uc[place] Xfer(QC): 3 Gait Training Does the Patient Walk?: Yes Distance: 5' Pt able to TF from bed to recliner w/o FWW but requires Ana Exercises Seated Therapy Exercises: Ankle pumps, Sit to stand, Long arc quads, Hip flexion, Hip abd/add Treatments Pt laying in bed, transferred supine to sit EOB, then hand held assistance to transfer from EOB to recliner. Pt completes all seated exs w/ LLE having slightly less coordination than RLE. Post tx, pt in recliner, call light in reach and all needs met. Assessment Current Status: Good Progress Pt requires CGA/Ana to complete TFs. Pt requires skilled verbal cues about hand and foot placement during TFs. Able to correct once prompted. PT Senior Living Goals Senior Living Goals PT Big Data Solutions Architect Goals Time Frame: Jun 24, 2021 Roll Left & Right (QC): 6 Sit to Lying (QC): 6 Lying-Sitting on Side/Bed(QC): 6 Sit to Stand (QC): 4 Chair/Ddt-yx-Nywxu Xfer(QC): 4 Toilet Transfer (QC): 4 Car Transfer (QC): 4 Walk 10 feet (QC): 4 Walk 50ft with 2 Turns (QC): 4 Walk 150 ft (QC): 4 PT Plan Problem List Problem List: Activity Tolerance, Functional Strength, Safety Treatment/Plan Treatment Plan: Continue Plan of Care Treatment Plan: Bed Mobility, Education, Functional Activity Zeb, Functional Strength, Gait, Safety, Therapeutic Exercise, Transfers Treatment Duration: Jun 24, 2021 Frequency: 6 times per week Estimated Hrs Per Day: .25 hour per day Patient and/or Family Agrees t: Yes Safety Risks/Education Patient Education: Transfer Techniques, Correct Positioning Teaching Recipient: Patient Teaching Methods: Discussion Response to Teaching: Return Demonstration Time/GCodes Time In: 940 Time Out: 950 Total Billed Treatment Time: 10 Total Billed Treatment 1 visit, FA (10min) ROMAINE MERCER PTA May 24, 2021 11:09
--- NOTE | 2021-05-24 11:19 | Consultation-Cardiology ---
HPI-Cardiology Cardiology Consultation: Date of Consultation 05/24/21 Time Seen by a Provider: 08:20 Date of Admission Attending Physician Katina Hinton MD Admitting Physician [facility] Consulting Physician BELLA SMITH MD, MA, FACP, FACC, [facility], CCDS HPI: Chief Complaint: CVA Mr. Castro is a 75 yr old male who has been admitted to [facility] with CVA with left sided facial droop, left upper and lower extremity weakness, blurred vision and vertigo. He reports he was sitting at the computer when he had a sudden onset of blurred vision, nausea and vertigo. He denies any CP, SOB or palpitations. No c/o LE swelling. He feels the left sided weakness is improving. He continues to c/o dizziness and visual disturbances. He reports he has been compliant with his medications at home. Review of Systems-Cardiology Review of Systems Constitutional: No chills, No fever Eyes: As described under HPI Ears/Nose/Throat: No epistaxis, No nasal drainage Respiratory: As described under HPI Cardiovascular: As described under HPI Gastrointestinal: As described under HPI Genitourinary: No dysuria Musculoskeletal: no symptoms reported Skin: No rash on exposed areas, No ulcerations on exposed areas Psychiatric/Neurological: As described under HPI Hematologic: No bleeding abnormalities All Other Systems Reviewed Negative Unless Noted: Yes LKM-Qmvzaw-Tybmzk Hx Patient Social History Smoking Status: Never a Smoker 2nd Hand Smoke Exposure: No Have you traveled recently?: No Alcohol Use?: No Pt feels they are or have been: No Immunizations Up To Date Tetanus Booster (TDap): Unknown Date of Pneumonia Vaccine: Apr 02, 2017 Date of Influenza Vaccine: May 05, 2021 Past Medical History PMH As described under Assessment. Family Medical History Family Medical History: He reports a family h/o mother and father both having CAD. Family History: Cardiovascular disease 19 FATHER 19 MOTHER (CONGESTIVE HEART FAILURE) Diabetes mellitus 19 MOTHER FH: breast cancer 19 MOTHER Myocardial infarction 19 FATHER Allergies and Home Medications Allergies Coded Allergies: No Known Food Allergies (Verified Allergy, Unknown, 05/21/21) Patient Home Medication List Home Medication List Reviewed: Yes Allopurinol (Allopurinol) 100 Mg Tablet, 50 MG PO DAILY, (Reported) Entered as Reported by: KARRI CONTI on 09/15/20 0928 Last Action: Reviewed Amlodipine Besylate (Amlodipine Besylate) 10 Mg Tablet, 10 MG PO DAILY, (Reported) Entered as Reported by: FLOR BRICEÑO on 08/26/18710 Last Action: Reviewed Aspirin (Aspirin) 81 Mg Tab.chew, 81 MG PO DAILY, (Reported) Entered as Reported by: FLOR BRICEÑO on 08/26/18710 Last Action: Reviewed Atorvastatin Calcium (Atorvastatin Calcium) 80 Mg Tablet, 80 MG PO DAILY, (Reported) Entered as Reported by: KARRI COTNI on 09/15/20952 Last Action: Reviewed Clopidogrel Bisulfate (Clopidogrel) 75 Mg Tablet, 75 MG PO DAILY, (Reported) Entered as Reported by: KARRI CONTI on 09/15/20952 Last Action: Continued Levetiracetam (Levetiracetam) 500 Mg Tablet, 500 MG PO BID, (Reported) Entered as Reported by: KARRI CONTI on 05/22/21903 Last Action: Continued Levothyroxine Sodium (Levothyroxine Sodium) 112 Mcg Tablet, 112 MCG PO DAILY, (Reported) Entered as Reported by: ROBERTO ROSADO on 12/05/171199 Last Action: Continued Multivitamin (Multivitamin) 1 Each Tablet, 1 EACH PO DAILY, (Reported) Entered as Reported by: KARRI CONTI on 09/15/20952 Last Action: Reviewed [place] 3 Polyunsat Fatty Acids (Fish Oil 1,000 mg Capsule) 1,000 Mg Cap, 1,000 MG PO BID, (Reported) Entered as Reported by: MONE LAM on 07/16/18 1006 Last Action: Reviewed Discontinued Medications Carvedilol (Carvedilol) 6.25 Mg Tablet, 6.25 MG PO BID, (Reported) Discontinued Reason: No Longer Taking Entered as Reported by: ROBERTO ROSADO on 12/05/17 1200 Last Action: Discontinued Physical Exam-Cardiology Physical Exam Vital Signs/I&O 05/23/21 05/23/21 05/24/21 05/24/21 23:30 23:31 00:28 01:37 Temp 36.9 37.8 37.8 37.8 Pulse 79 Resp 20 B/P (MAP) 177/79 Pulse Ox 92 O2 Delivery Room Air 05/24/21 05/24/21 05/24/21 03:27 07:41 08:50 Temp 36.5 37.0 Pulse 78 88 Resp 18 18 B/P (MAP) 144/75 134/81 Pulse Ox 93 95 94 O2 Delivery Room Air Room Air Room Air 05/24/21 00:00 Intake Total 650 ml Output Total 750 ml Balance -100 ml Capillary Refill : Less Than 3 Seconds Constitutional: AAO x 3, well-developed, well-nourished HEENT: hearing is well preserved, oral hygience is good Neck: carotid pulses are 2 + bilaterally Respiratory: No accessory muscle use, No respiratory distress; chest expansion is symmetric, chest is bilaterally symmetric, lungs clear to auscultation Cardiovascular: regular rate-rhythm, S1 and S2 Gastrointestinal: No tender; soft, round, audible bowel sounds Extremities: no lower extremity edema bilateral Neurologic/Psychiatric: other (LUE and LLE weakness 3/5; left sided facial droop) Skin: No rash on exposed areas, No ulcerations on exposed areas Data Review Labs Laboratory Tests 05/24/21 06:17: White Blood Count 13.1H, Red Blood Count 5.48, Hemoglobin 15.9, Hematocrit 48, Mean Corpuscular Volume 87, Mean Corpuscular Hemoglobin 29, Mean Corpuscular Hemoglobin Concent 33, Red Cell Distribution Width 14.4, Platelet Count 282, Mean Platelet Volume 10.8, Immature Granulocyte % (Auto) 1, Neutrophils (%) (Auto) 73, Lymphocytes (%) (Auto) 16, Monocytes (%) (Auto) 10, Eosinophils (%) (Auto) 0, Basophils (%) (Auto) 0, Neutrophils # (Auto) 9.6H, Lymphocytes # (Auto) 2.1, Monocytes # (Auto) 1.3H, Eosinophils # (Auto) 0.0, Basophils # (Auto) 0.1, Immature Granulocyte # (Auto) 0.1, Sodium Level 138, Potassium Level 3.9, Chloride Level 107, Carbon Dioxide Level 21, Anion Gap 10, Blood Urea Nitrogen 27H, Creatinine 1.70H, Estimat Glomerular Filtration Rate 40, BUN/Creatinine Ratio 16, Glucose Level 113H, Calcium Level 9.0, Corrected Calcium 9.5, Phosphorus Level 2.9, Magnesium Level 2.0, Total Bilirubin 0.5, Aspartate Amino Transf (AST/SGOT) 22, Alanine Aminotransferase (ALT/SGPT) 17, Alkaline Phosphatase 106, Total Protein 6.0L, Albumin 3.4 Microbiology 05/21/21 MRSA Screen - Final, Complete MRSA not isolated A/P-Cardiology Assessment/Admission Diagnosis CVA: - CVA 05-22-21 with resultant LUE, LLE weakness, facial droop, visual disturbance and vertigo - MRI of 05-22-21 There is a small to moderate sized area of acute infarct involving the inferior medial left cerebellum and lateral posterior brainstem medulla which correlates to the left vertebral artery and left PICA distribution. There is note of absence of flow void with abnormal increased T2 signal involving the left vertebral artery and possibly the left proximal basilar artery which may represent occlusion. CT angiogram of the head and neck is suggested for further evaluation. There is small area of acute infarct involving the high lateral posterior left frontal lobe region. Chronic cerebral infarct involving the right frontal lobe and right parietal lobe. - H/O CVA on 04/02/20 - MRI of 04/04/20: There is an acute cerebral infarct involving the right parietal lobe region with no evidence of hemorrhagic transformation, brain herniation or midline shift. Mild, persistent L hand weakness - S/p ILR on 04/04/20. No arrhythmia detected yet (recent ILR transmissions reviewed on 05-24-21 showed no evidence of arrhythmia) CAD: - Ac NSTEMI in early Jul 2018 that was treated with PCI (see below) - with h/o CABG x5 by Dr Engle at [facility] in 2009 - Cardiac cath of 07-16-18: 95% mid vessel stenosis of left anterior descending, proximal occlusion of the left circumflex, and 90-95% proximal stenosis of the right coronary artery; three out of four aortocoronary grafts (SVGs) are occluded; graft (to OM) was patent with 95% proximal stenosis and was successfully treated with Iris 3.0 x 23 mm stent; patent left internal mammary artery graft to distal left anterior descending artery; normal left ventricular end-diastolic pressure. - Last cath on 08/26/18: successful stenting of prox-to-mid RCA with Sierrra 2.25x28 mm stent. - Echocardiogram of 05-22-[address] Aguila showed LVEF 70-75%. Mod concentric hypertrophy. Paradoxical septal motion consistent with an intraventricular conduction delay. Grade 1 diastolic dysfunction. LA mild dilated. Possibe PFO with left to right shunt. Mild AoV sclerosis. - MPI of 02-03-21: no evidence of ischemia or infarction. LVEF 61% CKD 4: - stable after card cath and cor intervention of 07-16-18 (i.e, no evidence of contrast nephropathy on repeat lab work of 07-21-18) HLD: - statin tx - followed by PCP HTN: - controlled - [facility] stroke team advises BP be kept in the 160's systolic Hypothyroidism: - replacement tx - followed by PCP BPH: - h/o TURP H/o tobacco use: - quit many years ago Carotid dz: - Minimal bilat carotid plaque per carotid u/s of May 2019 Seizure disorder: - management per PCP Discussion and Recomendations CVA d/t verterbal artery occlusion - advise referral to tertiary care facility with neuro-vascular services Cardiac status appears clinically stable Management of stroke is per Medical services and stroke team Monitor lab closely Continue Plavix and ASA Further recs will be based on his hospital course We would like to thank medical services for this consult Clinical Quality Measures DVT/VTE Risk/Contraindication: Contraindications-Pharm: Other *list below* Contraindications-Mechi: Other *list below* Other: tpa BELLA SMITH MD FACP FAC CCDS May 24, 2021 11:19
--- NOTE | 2021-05-24 13:28 | Speech Therapy Daily Note ---
Speech Daily Progress Note Subjective Date Seen by Provider: May 24, 2021 Time Seen by Provider: 00:15 Patient states he feels better today and hopes he goes home soon. Objective Patient utilizes compensatory strategies with current diet level at 80% with 10% verbal and/or visual cues. Cough/clear x2 noted with noon meal. Assessment Assessment Current Status: Good Progress Treatment Plan Continue Plan of Care Speech Short Term Goals Short Term Goals Short Term Goals 1) Patient will tolerate least restrictive diet level with 90% or greater. 2) Patient will utilize compensatory strategies as trained for safe oral intake at 90% or greater. 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 Speech-Plan Patient/Family Goals Patient/Family Goals: Patient plans on returning to his home where he lives with his . Treatment Plan Speech Therapy Treatment Plan: Continue Plan of Care Treatment Duration: May 26, 2021 Frequency: 3 times per week Estimated Hrs Per Day: .25 hour per day Rehab Potential: Fair Barriers to Learning: Patient's most recent CVA, which this is the second one, decreased function due to CVA Pt/Family Agrees to Plan: Yes Safety Risks/Education Teaching Recipient: Patient Teaching Methods: Demonstration, Discussion Response to Teaching: Verbalize Understanding, Return Demonstration Education Topics Provided: Continued safety with oral intake Time Speech Therapy Time In: 12:15 Speech Therapy Time Out: 12:30 Total Billed Time: 15 Billed Treatment Time Alverto SAM Maki LEWISONOTTO May 24, 2021 13:28
--- NOTE | 2021-05-24 14:29 | Progress Note ---
CYNTHIA DEUTSCH MD 05/24/21 1428: Subjective Subjective/Events-last exam Patient transferred from the ICU last night. He had elevated BP and was given hydralazine 10 mg x 2. This AM, he reports he did not sleep well due to the room temperature as well as persistent blurry vision. Otherwise, no new symptoms. He denies CP, SOB, abdominal pain, N/V/C/D. Objective Exam Last Set of Vital Signs Vital Signs Date Time Temp Pulse Resp B/P (MAP) Pulse Ox O2 Delivery O2 Flow Rate FiO2 05/24/21 11:48 36.6 71 20 143/82 98 Room Air 05/21/21 23:22 21 Capillary Refill : Less Than 3 Seconds I&O Intake and Output 05/24/21 00:00 Intake Total 1190 ml Output Total 1500 ml Balance -310 ml Intake Oral 1190 ml Output Urine Total 1500 ml General: Alert, Oriented X3 HEENT: Atraumatic Neck: Supple Lungs: Clear to Auscultation, Normal Air Movement Heart: Regular Rate, Normal S1, Normal S2, No Murmurs Abdomen: Normal Bowel Sounds, Soft, No Tenderness Neuro: Other (Ataxia on left FTN. Facial asymmetry present. ) Results/Procedures Lab Laboratory Tests 05/24/21 06:17: White Blood Count 13.1H, Red Blood Count 5.48, Hemoglobin 15.9, Hematocrit 48, Mean Corpuscular Volume 87, Mean Corpuscular Hemoglobin 29, Mean Corpuscular Hemoglobin Concent 33, Red Cell Distribution Width 14.4, Platelet Count 282, Mean Platelet Volume 10.8, Immature Granulocyte % (Auto) 1, Neutrophils (%) (Auto) 73, Lymphocytes (%) (Auto) 16, Monocytes (%) (Auto) 10, Eosinophils (%) (Auto) 0, Basophils (%) (Auto) 0, Neutrophils # (Auto) 9.6H, Lymphocytes # (Auto) 2.1, Monocytes # (Auto) 1.3H, Eosinophils # (Auto) 0.0, Basophils # (Auto) 0.1, Immature Granulocyte # (Auto) 0.1, Sodium Level 138, Potassium Level 3.9, Chloride Level 107, Carbon Dioxide Level 21, Anion Gap 10, Blood Urea Nitrogen 27H, Creatinine 1.70H, Estimat Glomerular Filtration Rate 40, BUN/Creatinine Ratio 16, Glucose Level 113H, Calcium Level 9.0, Corrected Calcium 9.5, Phosphorus Level 2.9, Magnesium Level 2.0, Total Bilirubin 0.5, Aspartate Amino Transf (AST/SGOT) 22, Alanine Aminotransferase (ALT/SGPT) 17, Alkaline Phosphatase 106, Total Protein 6.0L, Albumin 3.4 Microbiology 05/21/21 MRSA Screen - Final, Complete MRSA not isolated Radiology NAME: ALAN CHURCH [facility] REC#: [id number] PT STATUS: ADM IN : 1945 PHYSICIAN: KATINA PUGH MD ADMIT DATE: 05/21/21/ICU Signed Date of Exam:05/22/21 CT ANGIO HEAD/NECK PROCEDURE: CT angiography of the head and CT angiography of the neck with and without contrast. TECHNIQUE: Contiguous noncontrast images were obtained from the skull base through the vertex. After intravenous contrast administration, helical CT angiography of the neck was performed. Source data was reformatted into 3D MIP projections. Delayed post contrast acquisition was also obtained. Auto Exposure Controls were utilized during the CT exam to meet ALARA standards for radiation dose reduction. INDICATION: Acute on chronic strokes with vertebral artery occlusion CORRELATED with head CTs of one-day prior as well as brain MRI of earlier this same date. CT HEAD: Precontrast and delayed postcontrast enhanced head CT now shows subtle visualization of edema in the inferomedial left cerebellar hemisphere where infarct was well visualized on earlier brain MRI. No evidence for its hemorrhagic transformation. Old right frontoparietal areas of encephalomalacia are stable and chronic. No abnormal parenchymal or meningeal enhancement on the delayed postcontrast enhanced images found. CT ANGIOGRAM NECK: Aortic arch and branching pattern of the great vessels was normal. There is a diminutive right cervical vertebral artery which occludes at the C2 level. The cervical left vertebral artery is dominant however that vessel occludes just below the level of the skull base. There is calcified and soft plaques at the carotid bulbs and bifurcations extending into the proximal ICAs bilaterally, without hemodynamically significant degree of narrowing. CT ANGIOGRAM HEAD: The intradural vertebral arteries bilaterally are occluded. There is presumed retrograde flow and collateralization in the basilar artery with opacification of the right PICA. The left PICA is not visualized. The basilar tip is patent and there is flow in the bilateral CASE LOADER OPERATOR segments. The right CASE LOADER OPERATOR is in origin off the right internal carotid. There is a left-sided PCOM present which is patent. The bilateral CASE LOADER OPERATOR segments are patent. The intracranial ICAs are calcified at their cavernous segments with mild diffuse narrowing. No hemodynamically significant focal stenosis found. The left A1 segment is atretic or absent. The right patent. The ACOM is patent and there is opacification of the bilateral anterior cerebral arteries. The bilateral middle cerebral arteries and their primary segments appeared patent. IMPRESSION: Dominant left cervical vertebral occludes just below the skull base. The atretic small caliber right vertebral cannot be identified as patent beyond the C2 level. The cervical carotid showed calcified and soft plaque without hemodynamically significant degrees of narrowing. CT ANGIOGRAM HEAD: Occlusion of the bilateral intradural vertebral arteries and left PICA. There is flow in the basilar probably collateralized via the anterior circulation with a origin of the right CASE LOADER OPERATOR via the anterior circulation and a patent contralateral left PCOM. Bilateral bowling floor manager and basilar patent and calcified plaques of the left greater than right cavernous segments of the intracranial carotids resulted in no hemodynamically significant stenosis. There is an atrophic or absent left A1 segment with widely patent right A1 segment with opacified ACOM and bilateral anterior cerebral arteries. The bilateral middle cerebral arterial segments showed no thrombus, aneurysm or significant stenosis. No aneurysm identified. HEAD CT shows old remote right-sided infarcts with new visualization of faint edema associated with the known left inferomedial left cerebellar hemispheric infarct along the PICAs distribution. No findings of hemorrhagic transformation of known stroke. Dictated by: Dictated on workstation # [id number] Dict: 05/22/[id number] Trans: 05/22/211846 [facility] [id number] Interpreted by: EMANI PATINO Electronically signed by: EMANI PATINO 05/22/211846 NAME[facility] REC[facility] [id number] PT STATUS: ADM IN : 1945 PHYSICIAN: FILIBERTO HERRERA DO ADMIT DATE: 05/21/21/ICU Signed Date of Exam:05/22/21 MRI BRAIN W/O CONTRAST Clinical indication: Patient with CVA Exam: MRI of the brain performed without IV contrast. Sequences include axial DWI, ADC map, coronal gradient echo, axial T2, axial FLAIR, axial T1, and sagittal T1. Comparison: None. Findings: There is a small to moderate sized area of diffusion restriction involving the medial inferior left cerebellar hemisphere and left lateral brainstem medulla. There is associated high T2 signal in these regions. There is no evidence of hemorrhagic transformation. There is a small area of diffusion restriction involving the high posterior lateral left frontal lobe region with associated high T2 signal. There is brain parenchymal volume loss. There is a total of moderate amount of chronic infarcts involving the parasagittal right frontal lobe periventricular region and lateral right parietal lobe region. There is no hydrocephalus, brain herniation, or midline shift. Basal cisterns are unremarkable. There is loss of flow void signal within the left cervical vertebral artery and either distal left intradural vertebral artery or proximal basilar artery. There are postoperative changes to both globes which may be related to lens implants. The extracranial soft tissues, skull, and orbits are otherwise unremarkable. Paranasal sinuses and mastoid air cells are clear. IMPRESSION: 1: There is a small to moderate sized area of acute infarct involving the inferior medial left cerebellum and lateral posterior brainstem medulla which correlates to the left vertebral artery and left PICA distribution. There is note of absence of flow void with abnormal increased T2 signal involving the left vertebral artery and possibly the left proximal basilar artery which may represent occlusion. CT angiogram of the head and neck is suggested for further evaluation. 2: There is small area of acute infarct involving the high lateral posterior left frontal lobe region. 3: Chronic cerebral infarct involving the right frontal lobe and right parietal lobe. Results of this report discussed with Katina Pugh via the telephone on 05/22/2021 at 1725 hours. Dictated by: Dictated on workstation # [id number] Dict: 05/22/[id number] Trans: 05/23/[id number] [facility] [phone] Interpreted by: MOHSEN ANDRADE MD Electronically signed by: MOHSEN ANDRADE MD 05/23/21 5752 Assessment/Plan Assessment/Plan Admission Dx CVA Admission Status: Inpatient Order (span 2 midnights) (1) Cerebrovascular accident Status: Acute Assessment & Plan: Neuro exam stable with vertigo, blurry vision and dysarthria and left sided weakness. Bilateral vertebral artery occlusion and left PICA occlusions seen on CTA. No significant improvement after tenectaplase. Case discussed with [facility] neurology who has recommended medical management. -ASA, clopidogrel -Atorvastatin -Permissive HTN, holding scheduled and PRN antihypertensives -Cardiology consulted given CVA, possible PFO on echo -PT/OT/ST -Rehab pending insurance approval Qualifiers: Qualified Codes: I63.212 - Cerebral infarction due to unspecified occlusion or stenosis of left vertebral artery (2) HTN (hypertension) Status: Chronic Assessment & Plan: History of HTN on amlodipine 10 mg outpatient. Allowing for permissive hypertension here off of scheduled anti-hypertensives. Qualifiers: Qualified Codes: I10 - Essential (primary) hypertension (3) CAD (coronary artery disease) Status: Chronic Assessment & Plan: History of CAD s/p 5V CABG in 2009 with most recent stent placed 08/2018 and recent negative stress test. -On ASA (4) CKD (chronic kidney disease) Status: Chronic Assessment & Plan: CKD3b with creatinine at baseline. -Daily BMP Qualifiers: Qualified Codes: N18.32 - Chronic kidney disease, stage 3b (5) History of seizure Status: Chronic Assessment & Plan: Patient reports 1 GTC seizure following his stroke in 03/2020 on Keppra outpatient. -Continue keppra 500 mg BID (6) Hypothyroidism Assessment & Plan: On synthroid 112 mcg daily outpatient. TSH normal. -Continue home synthroid Clinical Quality Measures DVT/VTE Risk/Contraindication: Contraindications-Pharm: Other *list below* Contraindications-Mechi: Other *list below* Other: tpa KATINA PUGH MD 05/24/21 1901: Supervisory-Addendum Brief Supervisory Addendum I personally have seen and evaluated the patient and discussed and agree with the assessment and plan as documented by PGY3 Cornelio Deutsch MD. CYNTHIA DEUTSCH MD May 24, 2021 14:28 KATINA PUGH MD May 24, 2021 19:01
[2021-05-24] MEDS ORDERED: hydrALAZINE (APESOLINE) 20 MG/ML VIAL IV ONE (20:00)
[2021-05-24] MEDS ORDERED: hydrALAZINE (APESOLINE) 20 MG/ML VIAL ONE (20:13)
[2021-05-25 05:46] LABS: BASOPHILS # (AUTO) 0.1 10^3/uL (0.0-0.1); BASOPHILS % (AUTO) 1 % (0-10); EOSINOPHILS # (AUTO) 0.1 10^3/uL (0.0-0.3); EOSINOPHILS % (AUTO) 1 % (0-10); HEMATOCRIT 51 % (40-54); HEMOGLOBIN 16.7 g/dL (13.3-17.7); LYMPHOCYTES # (AUTO) 1.8 10^3/uL (1.0-4.0); LYMPHOCYTES % (AUTO) 16 % (12-44); MEAN CORPUSCULAR HEMOGLOBIN 29 pg (25-34); MEAN CORPUSCULAR HGB CONC 33 g/dL (32-36); MEAN CORPUSCULAR VOLUME 88 fL (80-99); MEAN PLATELET VOLUME 10.2 fL (9.0-12.2); MONOCYTES # (AUTO) 1.2 10^3/uL (0.0-1.0); MONOCYTES % (AUTO) 10 % (0-12); NEUTROPHILS # (AUTO) 8.5 10^3/uL (1.8-7.8); NEUTROPHILS % (AUTO) 72 % (42-75); PLATELET COUNT 269 10^3/uL (130-400); WHITE BLOOD COUNT 11.8 10^3/uL (4.3-11.0)
[2021-05-25 05:57] LABS: ALBUMIN 3.5 GM/DL (3.2-4.5)
[2021-05-25 05:58] LABS: CALCIUM 9.4 MG/DL (8.5-10.1)
[2021-05-25 06:00] LABS: TOTAL PROTEIN 6.4 GM/DL (6.4-8.2)
[2021-05-25] MEDS: POTASSIUM CL 10MEQ/50ML IVPB 50 ML IV SCH (06:00)
[2021-05-25] MEDS: MAGNESIUM 1 GM/100 ML IVPB 100 ML IV SCH (06:00)
[2021-05-25] MEDS: KCL 20 MEQ TAB (K-DUR) PO SCH (06:00)
[2021-05-25 06:01] LABS: BILIRUBIN,TOTAL 0.6 MG/DL (0.1-1.0)
[2021-05-25 06:03] LABS: CREATININE SERUM 1.73 MG/DL (0.60-1.30); PHOSPHORUS 3.1 MG/DL (2.3-4.7)
[2021-05-25 06:06] LABS: MAGNESIUM 2.1 MG/DL (1.6-2.4)
[2021-05-25] MEDS: LEVOTHYROXINE 112 MCG (LEVOTHROID) TAB PO SCH (06:16)
[2021-05-25] MEDS: ASPIRIN 81 MG CHEW (CHILDREN'S ASA) PO SCH (08:45)
[2021-05-25] MEDS: SENNA W/DOCUSATE (SENOKOT S) TABLET PO SCH ×2 (08:45→20:12)
[2021-05-25] MEDS: DOCUSATE SODIUM 100 MG (COLACE) CAP PO SCH (08:45)
[2021-05-25] MEDS: CLOPIDOGREL 75 MG (PLAVIX) TABLET PO SCH (08:45)
[2021-05-25] MEDS ORDERED: amLODIPine 5 MG (NORVASC) TAB PO SCH (09:00)
--- NOTE | 2021-05-25 09:19 | Cardiology Progress Note ---
Subjective Date Seen by Provider: May 25, 2021 Time Seen by Provider: 09:11 Subjective/Events-last exam Patient was seen at bedside, sitting comfortably, eating breakfast Reporting improvement in his weakness Review of Systems General: No Chills, No Night Sweats, No Fatigue, No Malaise, No Appetite, No Other HEENT: No Head Aches, No Visual Changes, No Eye Pain, No Ear Pain, No Dysphasia, No Sinus Congestion, No Post Nasal Drip, No Sore Throat, No Other Pulmonary: No Dyspnea, No Cough, No Pleuritic Chest Pain, No Other Cardiovascular: No: Chest Pain, Palpitations, Orthopnea, Paroxysmal Noc. Dyspnea, Edema, Lt Headedness, Other Objective-Cardiology Exam Last Set of Vital Signs Vital Signs 05/21/21 05/25/21 23:22 07:23 Temp 36.9 Pulse 75 Resp 18 B/P (MAP) 154/84 Pulse Ox 94 O2 Delivery Room Air FiO2 21 I&O Intake and Output 05/25/21 00:00 Intake Total 985 ml Output Total 1220 ml Balance -235 ml Intake Oral 985 ml Output Urine Total 1220 ml # Bowel Movements 1 General: Alert, Oriented X3 HEENT: Atraumatic Neck: Supple Lungs: Clear to Auscultation, Normal Air Movement Heart: Regular Rate, Normal S1, Normal S2, No Murmurs Abdomen: Normal Bowel Sounds, Soft, No Tenderness Extremities: No Edema Skin: No Rashes Neuro: Normal Speech, Other (Ataxia on left FTN. Facial asymmetry present. ) Psych/Mental Status: Mental Status NL Results Lab Laboratory Tests 05/25/21 05:35 A/P-Cardiology Admission Diagnosis Acute CVA Coronary artery disease Hypertension Hyperlipidemia Assessment/Plan Acute CVA resulted in left-sided weakness, facial droop and vertigo with visual disturbance. Reporting significant improvement in his symptoms. MRI was done on May 2021 reported as a small to moderate sized area of acute infarct involving the inferior medial left cerebellum and lateral posterior brainstem Medela which correlate with the left vertebral artery and left PICA distribution. There is a note of absence of flow void with abnormal increased T2 signal involving the left vertebral artery and possible the left proximal basilar artery which may represent occlusion. There is a small area of acute infarct involving the high lateral posterior left frontal lobe region, chronic cerebral infarct involving the right frontal lobe and right parietal lobe. History of CVA in March 2020 MRI from March 2020 reported acute cerebral infarct involving the right parietal lobe region with no evidence of hemorrhagic transformation History of loop monitor implanted in March 2020 with no arrhythmia detected, last interrogation was done on May 24, 2021 reported no evidence of arrhythmia by Dr. Alaniz. Coronary artery disease, history of CABG x5 done by Dr. Migue Engle at [facility] in [place] in 2009 Non-ST elevation myocardial infarction in July 2018 was treated with cardiac catheterization reported as 95% stenosis in the mid LAD, proximal occlusion of the circumflex artery and 90 to 95% stenosis in the RCA, 3 out of 4 bypass grafts were occluded, there is a graft to the obtuse marginal branch was patent with 95% proximal stenosis and treated with a stent Iris 3 x 23 mm. Patent BAIN to LAD Cardiac catheterization done in August 2018, successful stenting to the proximal to mid RCA with Iris 2.25 x 28 mm stent 2D echocardiogram reported on May 22, [address] Aguila, ejection fraction 70 to 75%, moderate LVH, paradoxical septal motion, grade 1 diastolic dysfunction, left atrium mildly dilated, possible PFO with hiae-qb-ztluj shunt, mild aortic valve sclerosis. Stress test done on February 03, 2021 showing no evidence of ischemia, ejection fraction 61% Hypertension, controlled, [facility] stroke team advised blood pressure to be kept around 160 systolic Hyperlipidemia, maintained on statin Chronic kidney disease, continue to monitor renal function Hypothyroidism, maintained on replacement therapy and followed by primary care physician Carotid stenosis, minimal bilateral disease by ultrasound in May 2019 History of seizure disorder, followed by primary care physician BPH, history of TURP RADHA CHESTER MD May 25, 2021 09:19
--- NOTE | 2021-05-25 09:21 | Physical Therapy Daily Note ---
PT Daily Note-Current Subjective Patient very agreeable to participate with therapy. Continues to c/o dizziness with PT educating patient on location of CVA results in balance/dizziness issues. Mental Status Patient Orientation: Normal For Age Attachments: Lake Catheter Transfers SCALE: Activities may be completed with or without assistive devices. 4-Qslpehwcbg-iijyhdj completes the activity by him/herself with no assistance from a helper. 5-Set-up or Clean-up Assistance-helper sets up or cleans up; patient completes activity. [place] assists only prior to or following the activity. 4-Supervision or Touching Assistance-helper provides verbal cues and/or touching/steadying and/or contact guard assistance as patient completes activity. Assistance may be provided throughout the activity or intermittently. 3-Partial/Moderate Assistance-helper does LESS THAN HALF the effort. [place] lifts, holds or supports trunk or limbs, but provides less than half the effort. 2-Substantial/Maximal Assistance-helper does MORE THAN HALF the effort. [place] lifts or holds trunk or limbs and provides more than half the effort. 7-Uhapnmdrf-oyuqon does ALL the effort. Patient does none of the effort to complete the activity. Or, the assistance of 2 or more helpers is required for the patient to complete the activity. If activity was not attempted, code reason: 7-Patient Refused. 9-Not Applicable-not attempted and the patient did not perform the activity before the current illness, exacerbation or injury. 10-Not Attempted due to Environmental Limitations-(lack of equipment, weather restraints, etc.). 88-Not Attempted due to Medical Conditions or Safety Concerns. Roll Left & Right (QC): 6 Lying to Sitting/Side of Bed(Q: 4 (SBA for safety due to balance deficit) Sit to Stand (QC): 3 (mod assist) Chair/Nvd-gj-Rauga Xfer(QC): 3 (mod assist) Gait Training Does the Patient Walk?: Yes Distance: 200' Walk 10 feet (QC): 3 (mod assist for balance with noted lean to left with PT correcting) Walk 50 ft with 2 Turns(QC): 3 (mod assist for balance with noted lean to left with PT correcting) Walk 150 ft (QC): 3 (mod assist for balance with noted lean to left with PT correcting) Gait Assistive Device: FWW improved gait sequence/slightly ataxic Exercises Supine Ex: Ankle pumps, Quad Set, Heel Slides, Straight leg raise Supine Reps: 12 Seated Therapy Exercises: Ankle pumps, Long arc quads, Hip flexion Seated Reps: 12 Assessment Patient progressing with skilled PT. Patient would benefit from ARU to continue to address strengthening and mobility/balance, etc., to ensure safe return to home with family. PT Care Home Goals Care Home Goals PT Care Home Goals Time Frame: Jun 24, 2021 Roll Left & Right (QC): 6 Sit to Lying (QC): 6 Lying-Sitting on Side/Bed(QC): 6 Sit to Stand (QC): 4 Chair/Rnz-as-Uubel Xfer(QC): 4 Toilet Transfer (QC): 4 Car Transfer (QC): 4 Walk 10 feet (QC): 4 Walk 50ft with 2 Turns (QC): 4 Walk 150 ft (QC): 4 PT Plan Treatment/Plan Treatment Plan: Continue Plan of Care, Modify Plan, see comments Treatment Plan: Bed Mobility, Education, Functional Activity Zeb, Functional Strength, Gait, Safety, Therapeutic Exercise, Transfers Treatment Duration: Jun 24, 2021 Frequency: 6 times per week Estimated Hrs Per Day: .5 hour per day Patient and/or Family Agrees t: Yes increase to .5 hour per day Time/GCodes Time In: 801 Time Out: 824 Total Billed Treatment Time: 23 Total Billed Treatment 1 visit EX 10 min GT 13 min TAMIA SERRATO PT May 25, 2021 09:21
--- NOTE | 2021-05-25 11:15 | Progress Note ---
CYNTHIA DEUTSCH MD 05/25/21 1115: Subjective Subjective/Events-last exam Patient hypertensive to 1990s SBP yesterday and was given hydralazine with improvement in BP. This AM, reports continued blurry vision but otherwise no new symptoms. Has been up walking with nursing with RN reporting difficulty due to patient leaning one direction. Patient denies CP, SOB, abdominal pain this AM. Awaiting placement. Objective Exam Last Set of Vital Signs Vital Signs Date Time Temp Pulse Resp B/P (MAP) Pulse Ox O2 Delivery O2 Flow Rate FiO2 05/25/21 10:06 Room Air 05/25/21 07:23 36.9 75 18 154/84 94 05/21/21 23:22 21 Capillary Refill : Less Than 3 Seconds I&O Intake and Output 05/25/21 00:00 Intake Total 985 ml Output Total 1220 ml Balance -235 ml Intake Oral 985 ml Output Urine Total 1220 ml # Bowel Movements 1 General: Alert, Oriented X3 HEENT: Atraumatic, PERRLA, Mucous Memb Moist/[place] Neck: Supple Lungs: Clear to Auscultation, Normal Air Movement Heart: Regular Rate, Normal S1, Normal S2 Abdomen: Normal Bowel Sounds Extremities: No Clubbing Skin: No Rashes Neuro: Other (PERRLA, asymmetric when puffing out cheeks) Psych/Mental Status: Mental Status NL Results/Procedures Lab Laboratory Tests 05/25/21 05:35: White Blood Count 11.8H, Red Blood Count 5.81H, Hemoglobin 16.7, Hematocrit 51, Mean Corpuscular Volume 88, Mean Corpuscular Hemoglobin 29, Mean Corpuscular Hemoglobin Concent 33, Red Cell Distribution Width 14.4, Platelet Count 269, Mean Platelet Volume 10.2, Immature Granulocyte % (Auto) 1, Neutrophils (%) (Auto) 72, Lymphocytes (%) (Auto) 16, Monocytes (%) (Auto) 10, Eosinophils (%) (Auto) 1, Basophils (%) (Auto) 1, Neutrophils # (Auto) 8.5H, Lymphocytes # (Auto) 1.8, Monocytes # (Auto) 1.2H, Eosinophils # (Auto) 0.1, Basophils # (Auto) 0.1, Immature Granulocyte # (Auto) 0.1, Sodium Level 140, Potassium Level 4.0, Chloride Level 108H, Carbon Dioxide Level 22, Anion Gap 10, Blood Urea Nitrogen 29H, Creatinine 1.73H, Estimat Glomerular Filtration Rate 39, BUN/Creatinine Ratio 17, Glucose Level 110H, Calcium Level 9.4, Corrected Calcium 9.8, Phosphorus Level 3.1, Magnesium Level 2.1, Total Bilirubin 0.6, Aspartate Amino Transf (AST/SGOT) 23, Alanine Aminotransferase (ALT/SGPT) 18, Alkaline Phosphatase 110, Total Protein 6.4, Albumin 3.5 Microbiology 05/21/21 MRSA Screen - Final, Complete MRSA not isolated Radiology NAME: ALAN CHURCH [facility] REC#: [id number] PT STATUS: ADM IN : 1945 PHYSICIAN: KATINA PUGH MD ADMIT DATE: 05/21/21/ICU Signed Date of Exam:05/22/21 CT ANGIO HEAD/NECK PROCEDURE: CT angiography of the head and CT angiography of the neck with and without contrast. TECHNIQUE: Contiguous noncontrast images were obtained from the skull base through the vertex. After intravenous contrast administration, helical CT angiography of the neck was performed. Source data was reformatted into 3D MIP projections. Delayed post contrast acquisition was also obtained. Auto Exposure Controls were utilized during the CT exam to meet ALARA standards for radiation dose reduction. INDICATION: Acute on chronic strokes with vertebral artery occlusion CORRELATED with head CTs of one-day prior as well as brain MRI of earlier this same date. CT HEAD: Precontrast and delayed postcontrast enhanced head CT now shows subtle visualization of edema in the inferomedial left cerebellar hemisphere where infarct was well visualized on earlier brain MRI. No evidence for its hemorrhagic transformation. Old right frontoparietal areas of encephalomalacia are stable and chronic. No abnormal parenchymal or meningeal enhancement on the delayed postcontrast enhanced images found. CT ANGIOGRAM NECK: Aortic arch and branching pattern of the great vessels was normal. There is a diminutive right cervical vertebral artery which occludes at the C2 level. The cervical left vertebral artery is dominant however that vessel occludes just below the level of the skull base. There is calcified and soft plaques at the carotid bulbs and bifurcations extending into the proximal ICAs bilaterally, without hemodynamically significant degree of narrowing. CT ANGIOGRAM HEAD: The intradural vertebral arteries bilaterally are occluded. There is presumed retrograde flow and collateralization in the basilar artery with opacification of the right PICA. The left PICA is not visualized. The basilar tip is patent and there is flow in the bilateral LEAD SOFTWARE DEVELOPER segments. The right LEAD SOFTWARE DEVELOPER is in origin off the right internal carotid. There is a left-sided PCOM present which is patent. The bilateral LEAD SOFTWARE DEVELOPER segments are patent. The intracranial ICAs are calcified at their cavernous segments with mild diffuse narrowing. No hemodynamically significant focal stenosis found. The left A1 segment is atretic or absent. The right patent. The ACOM is patent and there is opacification of the bilateral anterior cerebral arteries. The bilateral middle cerebral arteries and their primary segments appeared patent. IMPRESSION: Dominant left cervical vertebral occludes just below the skull base. The atretic small caliber right vertebral cannot be identified as patent beyond the C2 level. The cervical carotid showed calcified and soft plaque without hemodynamically significant degrees of narrowing. CT ANGIOGRAM HEAD: Occlusion of the bilateral intradural vertebral arteries and left PICA. There is flow in the basilar probably collateralized via the anterior circulation with a origin of the right LEAD SOFTWARE DEVELOPER via the anterior circulation and a patent contralateral left PCOM. Bilateral hospitality associate and basilar patent and calcified plaques of the left greater than right cavernous segments of the intracranial carotids resulted in no hemodynamically significant stenosis. There is an atrophic or absent left A1 segment with widely patent right A1 segment with opacified ACOM and bilateral anterior cerebral arteries. The bilateral middle cerebral arterial segments showed no thrombus, aneurysm or significant stenosis. No aneurysm identified. HEAD CT shows old remote right-sided infarcts with new visualization of faint edema associated with the known left inferomedial left cerebellar hemispheric infarct along the PICAs distribution. No findings of hemorrhagic transformation of known stroke. Dictated by: Dictated on workstation # [id number] Dict: 05/22/[id number] Trans: 05/22/211846 [facility] [id number] Interpreted by: EMANI PATINO Electronically signed by: EMANI PATINO 05/22/211846 NAME: [facility] REC#: [id number] PT STATUS: ADM IN : 1945 PHYSICIAN: FILIBERTO HERRERA DO ADMIT DATE: 05/21/21/ICU Signed Date of Exam:05/22/21 MRI BRAIN W/O CONTRAST Clinical indication: Patient with CVA Exam: MRI of the brain performed without IV contrast. Sequences include axial DWI, ADC map, coronal gradient echo, axial T2, axial FLAIR, axial T1, and sagittal T1. Comparison: None. Findings: There is a small to moderate sized area of diffusion restriction involving the medial inferior left cerebellar hemisphere and left lateral brainstem medulla. There is associated high T2 signal in these regions. There is no evidence of hemorrhagic transformation. There is a small area of diffusion restriction involving the high posterior lateral left frontal lobe region with associated high T2 signal. There is brain parenchymal volume loss. There is a total of moderate amount of chronic infarcts involving the parasagittal right frontal lobe periventricular region and lateral right parietal lobe region. There is no hydrocephalus, brain herniation, or midline shift. Basal cisterns are unremarkable. There is loss of flow void signal within the left cervical vertebral artery and either distal left intradural vertebral artery or proximal basilar artery. There are postoperative changes to both globes which may be related to lens implants. The extracranial soft tissues, skull, and orbits are otherwise unremarkable. Paranasal sinuses and mastoid air cells are clear. IMPRESSION: 1: There is a small to moderate sized area of acute infarct involving the inferior medial left cerebellum and lateral posterior brainstem medulla which correlates to the left vertebral artery and left PICA distribution. There is note of absence of flow void with abnormal increased T2 signal involving the left vertebral artery and possibly the left proximal basilar artery which may represent occlusion. CT angiogram of the head and neck is suggested for further evaluation. 2: There is small area of acute infarct involving the high lateral posterior left frontal lobe region. 3: Chronic cerebral infarct involving the right frontal lobe and right parietal lobe. Results of this report discussed with Katina Pugh via the telephone on 05/22/2021 at 1725 hours. Dictated by: Dictated on workstation # [id number] Dict: 05/22/21 1656 Trans: 05/23/21 173 [facility] [id number] Interpreted by: MOHSEN ANDRADE MD Electronically signed by: MOHSEN ANDRADE MD 05/23/21 6523 Assessment/Plan Assessment/Plan (1) Cerebrovascular accident Status: Acute Assessment & Plan: Neuro exam stable with vertigo, blurry vision and dysarthria and left sided weakness. Bilateral vertebral artery occlusion and left PICA occlusions seen on CTA. No significant improvement after tenectaplase. Case discussed with neurology who has recommended medical management. Currently awaiting placement at rehab. -ASA, clopidogrel -Atorvastatin -Slowly resuming anti-hpyertensives, added amlodipine 5 mg this AM -Cardiology following -PT/OT/ST -Rehab pending insurance approval Qualifiers: Qualified Codes: I63.212 - Cerebral infarction due to unspecified occlusion or stenosis of left vertebral artery (2) HTN (hypertension) Status: Chronic Assessment & Plan: History of HTN on amlodipine 10 mg outpatient. -Resume amlodipine 5 mg today given persistent requirement of PRNs Qualifiers: Qualified Codes: I10 - Essential (primary) hypertension (3) CAD (coronary artery disease) Status: Chronic Assessment & Plan: History of CAD s/p 5V CABG in 2009 with most recent stent placed 08/2018 and recent negative stress test. -On ASA (4) CKD (chronic kidney disease) Status: Chronic Assessment & Plan: CKD3b with creatinine at baseline. -Daily BMP Qualifiers: Qualified Codes: N18.32 - Chronic kidney disease, stage 3b (5) History of seizure Status: Chronic Assessment & Plan: Patient reports 1 GTC seizure following his stroke in 03/2020 on Keppra outpatient. -Continue keppra 500 mg BID (6) Hypothyroidism Assessment & Plan: On synthroid 112 mcg daily outpatient. TSH normal. -Continue home synthroid Clinical Quality Measures DVT/VTE Risk/Contraindication: Contraindications-Pharm: Other *list below* Contraindications-Mechi: Other *list below* Other: tpa KATINA PUGH MD 05/25/21 1122: Supervisory-Addendum Brief Supervisory Addendum I personally have seen and evaluated the patient and agree with assessment and plan as documented by PGY3 Cornelio Deutsch MD. CYNTHIA DEUTSCH MD May 25, 2021 11:15 KATINA PUGH MD May 25, 2021 11:22
--- NOTE | 2021-05-25 11:23 | Occupational Ther Daily Note ---
OT Current Status-Daily Note Subjective Pt alert, sitting in recliner. Pt agrees to therapy. No c/o pain. Mental Status/Objective Patient Orientation: Person, Place, Time, Situation Attachments: Lake Catheter, IV ADL-Treatment Pt agrees to sponge bath and oral care. After supplies gathered, pt able to complete oral care sitting in recliner. Pt's tendency to lean towards L side while completing this task required positioning pillow to stay upright. After supplies gathered, pt able to bath upper body, jordy area and B LE's by self. Pt able to don/doff hospital gown by self after set up. Assist to stand to maintain upright posture while pt cleanse buttocks. Verbal cues to push up from chair instead of pulling on FWW. Pt demonstrates spontaneous use of L UE though uncoordinated with initial movement. Static/dynamic sitting balance requires physical assistance or positioning pillows. Pt would benefit from ARU to regain skills for independence. After therapy, pt sitting in recliner with call light/phone in reach. Nrsg in room. All needs met. Therapy Code Descriptions/Definitions Functional [place] Measure: 0=Not Assessed/NA 4=Minimal Assistance 1=Total Assistance 5=Supervision or Setup 2=Maximal Assistance 6=Modified [place] 3=Moderate Assistance 7=Complete IndependenceSCALE: Activities may be completed with or without assistive devices. 1-Siwzuxbgmw-messqpo completes the activity by him/herself with no assistance from a helper. 5-Set-up or Clean-up Assistance-helper sets up or cleans up; patient completes activity. [place] assists only prior to or following the activity. 4-Supervision or Touching Assistance-helper provides verbal cues and/or touching/steadying and/or contact guard assistance as patient completes activity. Assistance may be provided throughout the activity or intermittently. 3-Partial/Moderate Assistance-helper does LESS THAN HALF the effort. [place] lifts, holds or supports trunk or limbs, but provides less than half the effort. 2-Substantial/Maximal Assistance-helper does MORE THAN HALF the effort. [place] lifts or holds trunk or limbs and provides more than half the effort. 9-Isivxbiea-dwplta does ALL the effort. Patient does none of the effort to complete the activity. Or, the assistance of 2 or more helpers is required for the patient to complete the activity. If activity was not attempted, code reason: 7-Patient Refused. 9-Not Applicable-not attempted and the patient did not perform the activity before the current illness, exacerbation or injury. 10-Not Attempted due to Environmental Limitations-(lack of equipment, weather restraints, etc.). 88-Not Attempted due to Medical Conditions or Safety Concerns. Oral Hygiene (QC): 5 Shower/Bathe Self (QC): 3 (Min A) On/Off Footwear: 5 (Pt able to don/doff socks by self after set up.) OT Custodial Goals Combination Welder Apprentice Goals Time Frame: Jun 24, 2021 Eating (QC): 6 Oral Hygiene (QC): 5 Toileting Hygiene (QC): 4 Shower/Bathe Self (QC): 5 Upper Body Dressing (QC): 5 Lower Body Dressing (QC): 4 On/Off Footwear (QC): 5 1=Demonstrate adherence to instructed precautions during ADL tasks. 2=Patient will verbalize/demonstrate understanding of assistive devices/modifications for ADL. 3=Patient will improve strength/tolerance for activity to enable patient to perform ADL's. OT Education/Plan Problem List/Assessment Assessment: Decreased UE Strength, Impaired Self-Care Skills, Restricted Funct UE ROM Discharge Recommendations Plan/Recommendations: Continue POC Treatment Plan/Plan of Care Patient would benefit from OT for education, treatment and training to promote independence in ADL's, mobility, safety and/or upper extremity function for ADL's. Plan of Care: ADL Retraining, Functional Mobility, Group Exercise/Act as Ind, UE Funct Exercise/Act, UE Neuromus Re-Ed/Coord, Visual/Perceptual Retrain Treatment Duration: Jun 24, 2021 Frequency: 5 times per week Estimated Hrs Per Day: .25 hour per day Agreement: Yes Rehab Potential: Fair Time/GCodes Start Time: 11:00 Stop Time: 11:23 Total Time Billed (hr/min): 23 Billed Treatment Time 1 visit-ADL 2 (23 min) LOYD ROJAS May 25, 2021 11:23
[2021-05-26] MEDS: LEVOTHYROXINE 112 MCG (LEVOTHROID) TAB PO SCH (05:14)
[2021-05-26 05:25] LABS: BASOPHILS # (AUTO) 0.1 10^3/uL (0.0-0.1); BASOPHILS % (AUTO) 1 % (0-10); EOSINOPHILS # (AUTO) 0.2 10^3/uL (0.0-0.3); EOSINOPHILS % (AUTO) 2 % (0-10); HEMATOCRIT 50 % (40-54); HEMOGLOBIN 16.7 g/dL (13.3-17.7); LYMPHOCYTES # (AUTO) 1.6 10^3/uL (1.0-4.0); LYMPHOCYTES % (AUTO) 15 % (12-44); MEAN CORPUSCULAR HEMOGLOBIN 29 pg (25-34); MEAN CORPUSCULAR HGB CONC 34 g/dL (32-36); MEAN CORPUSCULAR VOLUME 88 fL (80-99); MEAN PLATELET VOLUME 10.6 fL (9.0-12.2); MONOCYTES # (AUTO) 1.2 10^3/uL (0.0-1.0); MONOCYTES % (AUTO) 11 % (0-12); NEUTROPHILS # (AUTO) 7.7 10^3/uL (1.8-7.8); NEUTROPHILS % (AUTO) 71 % (42-75); PLATELET COUNT 261 10^3/uL (130-400); WHITE BLOOD COUNT 10.8 10^3/uL (4.3-11.0)
[2021-05-26 05:34] LABS: ALBUMIN 3.4 GM/DL (3.2-4.5); POTASSIUM 3.8 MMOL/L (3.6-5.0)
[2021-05-26 05:35] LABS: CALCIUM 9.1 MG/DL (8.5-10.1)
[2021-05-26 05:36] LABS: TOTAL PROTEIN 6.2 GM/DL (6.4-8.2)
[2021-05-26 05:38] LABS: BILIRUBIN,TOTAL 0.6 MG/DL (0.1-1.0)
[2021-05-26 05:39] LABS: PHOSPHORUS 3.3 MG/DL (2.3-4.7)
[2021-05-26 05:40] LABS: CREATININE SERUM 1.76 MG/DL (0.60-1.30)
[2021-05-26] MEDS: POTASSIUM CL 10MEQ/50ML IVPB 50 ML IV SCH (05:44)
[2021-05-26] MEDS: MAGNESIUM 1 GM/100 ML IVPB 100 ML IV SCH (05:44)
[2021-05-26] MEDS: KCL 20 MEQ TAB (K-DUR) PO SCH (05:44)
[2021-05-26] MEDS: amLODIPine 10 MG (NORVASC) TAB PO SCH (08:45)
[2021-05-26] MEDS: SENNA W/DOCUSATE (SENOKOT S) TABLET PO SCH ×2 (08:45→21:17)
[2021-05-26] MEDS: ASPIRIN 81 MG CHEW (CHILDREN'S ASA) PO SCH (08:45)
[2021-05-26] MEDS: DOCUSATE SODIUM 100 MG (COLACE) CAP PO SCH (08:45)
[2021-05-26] MEDS: CLOPIDOGREL 75 MG (PLAVIX) TABLET PO SCH (08:45)
--- NOTE | 2021-05-26 10:16 | Cardiology Progress Note ---
Subjective Date Seen by Provider: May 26, 2021 Time Seen by Provider: 10:15 Subjective/Events-last exam Patient was seen at bedside, sitting comfortably, feeling better, still having some dizziness Review of Systems General: No Chills, No Night Sweats, No Fatigue, No Malaise, No Appetite, No Other HEENT: No Head Aches, No Visual Changes, No Eye Pain, No Ear Pain, No Dysphasia, No Sinus Congestion, No Post Nasal Drip, No Sore Throat, No Other Pulmonary: No Dyspnea, No Cough, No Pleuritic Chest Pain, No Other Cardiovascular: No: Chest Pain, Palpitations, Orthopnea, Paroxysmal Noc. Dyspnea, Edema, Lt Headedness, Other Objective-Cardiology Exam Last Set of Vital Signs Vital Signs 05/21/21 05/26/21 23:22 08:00 Temp 37.2 Pulse 74 Resp 20 B/P (MAP) 162/91 Pulse Ox 96 O2 Delivery Room Air FiO2 21 I&O Intake and Output 05/26/21 00:00 Intake Total 1025 ml Output Total 800 ml Balance 225 ml Intake Oral 1025 ml Output Urine Total 800 ml Bladder Scan Volume Amount 303 ml General: Alert, Oriented X3 HEENT: Atraumatic, PERRLA, Mucous Memb Moist/[place] Neck: Supple Lungs: Clear to Auscultation, Normal Air Movement Heart: Regular Rate, Normal S1, Normal S2 Abdomen: Normal Bowel Sounds Extremities: No Clubbing Skin: No Rashes Neuro: Normal Speech, Other (PERRLA, asymmetric when puffing out cheeks) Psych/Mental Status: Mental Status NL Results Lab Laboratory Tests 05/26/21 05:14 A/P-Cardiology Admission Diagnosis Acute CVA Coronary artery disease Hypertension Hyperlipidemia Assessment/Plan Acute CVA resulted in left-sided weakness, facial droop and vertigo with visual disturbance. Reporting significant improvement in his symptoms. MRI was done on May 2021 reported as a small to moderate sized area of acute infarct involving the inferior medial left cerebellum and lateral posterior brainstem which correlate with the left vertebral artery and left PICA distribution. There is a note of absence of flow with abnormal increased T2 signal involving the left vertebral artery and possible the left proximal basilar artery which may represent occlusion. There is a small area of acute infarct involving the high lateral posterior left frontal lobe region, chronic cerebral infarct involving the right frontal lobe and right parietal lobe. History of CVA in March 2020 MRI from March 2020 reported acute cerebral infarct involving the right parietal lobe region with no evidence of hemorrhagic transformation History of loop monitor implanted in March 2020 with no arrhythmia detected, last interrogation was done on May 24, 2021 reported no evidence of arrhythmia by Dr. Alaniz. Coronary artery disease, history of CABG x5 done by Dr. Migue Engle at [facility] in [place] in 2009 Non-ST elevation myocardial infarction in July 2018 was treated with cardiac catheterization reported as 95% stenosis in the mid LAD, proximal occlusion of the circumflex artery and 90 to 95% stenosis in the RCA, 3 out of 4 bypass gr afts were occluded, there is a graft to the obtuse marginal branch was patent with 95% proximal stenosis and treated with a stent Iris 3 x 23 mm. Patent BAIN to LAD Cardiac catheterization done in August 2018, successful stenting to the proximal to mid RCA with Iris 2.25 x 28 mm stent 2D echocardiogram reported on May 22, [address] Aguila, ejection fraction 70 to 75%, moderate LVH, paradoxical septal motion, grade 1 diastolic dysfunction, left atrium mildly dilated, possible PFO with zgej-oj-baftq shunt, mild aortic valve sclerosis. Stress test done on February 03, 2021 showing no evidence of ischemia, ejection fraction 61% Hypertension, controlled, [facility] stroke team advised blood pressure to be kept around 160 systolic, I will increase amlodipine to 10 mg daily and monitor Hyperlipidemia, maintained on statin Chronic kidney disease, continue to monitor renal function Hypothyroidism, maintained on replacement therapy and followed by primary care physician Carotid stenosis, minimal bilateral disease by ultrasound in May 2019 History of seizure disorder, followed by primary care physician BPH, history of TURP RADHA CHESTER MD May 26, 2021 10:16
--- NOTE | 2021-05-26 10:27 | Occupational Ther Daily Note ---
OT Current Status-Daily Note Subjective Denies pain, agreeable to treatment. Appearance Left sitting in chair, all needs within reach. Alarm set. Mental Status/Objective Attachments: IV ADL-Treatment Therapy Code Descriptions/Definitions Functional [facility] Measure: 0=Not Assessed/NA 4=Minimal Assistance 1=Total Assistance 5=Supervision or Setup 2=Maximal Assistance 6=Modified [facility] 3=Moderate Assistance 7=Complete IndependenceSCALE: Activities may be completed with or without assistive devices. 5-Tmjcbbfmqs-glnskoi completes the activity by him/herself with no assistance from a helper. 5-Set-up or Clean-up Assistance-helper sets up or cleans up; patient completes activity. [place] assists only prior to or following the activity. 4-Supervision or Touching Assistance-helper provides verbal cues and/or touching/steadying and/or contact guard assistance as patient completes activity. Assistance may be provided throughout the activity or intermittently. 3-Partial/Moderate Assistance-helper does LESS THAN HALF the effort. Cand[place] lifts, holds or supports trunk or limbs, but provides less than half the effort. 2-Substantial/Maximal Assistance-helper does MORE THAN HALF the effort. [place] lifts or holds trunk or limbs and provides more than half the effort. 1-Jlcbrtkiq-yhfghe does ALL the effort. Patient does none of the effort to complete the activity. Or, the assistance of 2 or more helpers is required for the patient to complete the activity. If activity was not attempted, code reason: 7-Patient Refused. 9-Not Applicable-not attempted and the patient did not perform the activity before the current illness, exacerbation or injury. 10-Not Attempted due to Environmental Limitations-(lack of equipment, weather restraints, etc.). 88-Not Attempted due to Medical Conditions or Safety Concerns. Upper Body Dressing (QC): 2 On/Off Footwear: 3 Pt supine in bed at OT arrival. Able to sit EOB with SBA yet quickly lists left. Able to self correct but unable to sustain for >10 seconds. Requires intermittent min-mod A and 1-2 UE support to maintain sitting balance. Balance impairs significantly during dynamic tasks. Poor orientation and sequencing observed when donning gown, mod verbal and tactile cues required. Mod a for sitting balance when donning marco a socks with use of cross over method. Impaired coordination observed as pt often under/overshooting when reaching for foot. Fair-good righting reactions noted. Sit<>Stand: CGA. Min-mod a for balance as he ambulated ~5 feet to chair with use of walker. Unsteady on feet. Poor safety awareness. Education OT Patient Education: Correct positioning, Modified ADL techniques, Progress toward Goal/Update tx plan, Purpose of tx/functional activities, Reviewed precautions, Rehab process, Safety issues Teaching Recipient: Patient Teaching Methods: Demonstration, Discussion Response to Teaching: Return Demonstration, Reinforcement Needed OT Surfacer Goals Surfacer Goals Time Frame: Jun 24, 2021 Eating (QC): 6 Oral Hygiene (QC): 5 Toileting Hygiene (QC): 4 Shower/Bathe Self (QC): 5 Upper Body Dressing (QC): 5 Lower Body Dressing (QC): 4 On/Off Footwear (QC): 5 1=Demonstrate adherence to instructed precautions during ADL tasks. 2=Patient will verbalize/demonstrate understanding of assistive devices/modifications for ADL. 3=Patient will improve strength/tolerance for activity to enable patient to perform ADL's. OT Education/Plan Problem List/Assessment Assessment: Decreased Activ Tolerance, Decreased Safety Aware, Decreased UE Strength, Impaired Coordination, Impaired Funct Balance Discharge Recommendations Plan/Recommendations: Continue POC Treatment Plan/Plan of Care Treatment,Training & Education: Yes Patient would benefit from OT for education, treatment and training to promote independence in ADL's, mobility, safety and/or upper extremity function for ADL's. Plan of Care: ADL Retraining, Functional Mobility, Group Exercise/Act as Ind, UE Funct Exercise/Act, UE Neuromus Re-Ed/Coord, Visual/Perceptual Retrain Treatment Duration: Jun 24, 2021 Frequency: 5 times per week Estimated Hrs Per Day: .25 hour per day Agreement: Yes Rehab Potential: Fair Time/GCodes Start Time: 09:27 Stop Time: 09:37 Total Time Billed (hr/min): 10 Billed Treatment Time 1 visit ADL Alba Freeman OT May 26, 2021 10:27
[2021-05-26] MEDS ORDERED: NS IV 500 ML 500 ML IV SCH (10:45)
--- NOTE | 2021-05-26 11:23 | Physical Therapy Daily Note ---
PT Daily Note-Current Subjective Pt in recliner upon arrival and agrees to PT. Reports he is still experiencing dizziness. Says his vision is better today. Mental Status Patient Orientation: Normal For Age Transfers SCALE: Activities may be completed with or without assistive devices. 2-Pptjnyczuc-zfkcgcg completes the activity by him/herself with no assistance from a helper. 5-Set-up or Clean-up Assistance-helper sets up or cleans up; patient completes activity. [place] assists only prior to or following the activity. 4-Supervision or Touching Assistance-helper provides verbal cues and/or touching/steadying and/or contact guard assistance as patient completes activity. Assistance may be provided throughout the activity or intermittently. 3-Partial/Moderate Assistance-helper does LESS THAN HALF the effort. [place] lifts, holds or supports trunk or limbs, but provides less than half the effort. 2-Substantial/Maximal Assistance-helper does MORE THAN HALF the effort. [place] lifts or holds trunk or limbs and provides more than half the effort. 3-Nzuaeqbff-vjgnvs does ALL the effort. Patient does none of the effort to complete the activity. Or, the assistance of 2 or more helpers is required for the patient to complete the activity. If activity was not attempted, code reason: 7-Patient Refused. 9-Not Applicable-not attempted and the patient did not perform the activity before the current illness, exacerbation or injury. 10-Not Attempted due to Environmental Limitations-(lack of equipment, weather restraints, etc.). 88-Not Attempted due to Medical Conditions or Safety Concerns. Sit to Lying (QC): 4 Sit to Stand (QC): 4 Chair/Ypt-vh-Aykmn Xfer(QC): 3 Gait Training Does the Patient Walk?: Yes Distance: 215' Walk 10 feet (QC): 3 Walk 50 ft with 2 Turns(QC): 3 Walk 150 ft (QC): 3 Gait Assistive Device: FWW Pt requires mod assist for balance with noted lean to left with PT correcting Exercises Seated Therapy Exercises: Ankle pumps, Long arc quads, Hip flexion, Hamstring Curls, Hip abd/add, Glut set Seated Reps: 15 Standing: Sit to Stand Standing Reps: 3 Treatments Pt in recliner upon arrival and agrees to PT. Pt then performs sit to stand TF w/ Ana from therapist and then ambulates into beulah. Pt requires modA from therapist in order to correct L trunk lean. Pt able to amb 215' then amb back to room and TF to recliner. Pt then performs seated exs then TFs back to back w/ Ana from therapist. Assessment Current Status: Good Progress Pt requires skilled verbal cues about positioning in FWW during amb and requires modA from therapist in order to correct L trunk lean. Pt in bed call light nearby and all needs met as PT departs. PT Fpc Goals Nailhead Setter Goals PT Fpc Goals Time Frame: Jun 24, 2021 Roll Left & Right (QC): 6 Sit to Lying (QC): 6 Lying-Sitting on Side/Bed(QC): 6 Sit to Stand (QC): 4 Chair/Vsr-qn-Trajm Xfer(QC): 4 Toilet Transfer (QC): 4 Car Transfer (QC): 4 Walk 10 feet (QC): 4 Walk 50ft with 2 Turns (QC): 4 Walk 150 ft (QC): 4 PT Plan Problem List Problem List: Activity Tolerance, Safety, Balance, Gait Treatment/Plan Treatment Plan: Continue Plan of Care Treatment Plan: Bed Mobility, Education, Functional Activity Zeb, Functional Strength, Gait, Safety, Therapeutic Exercise, Transfers Treatment Duration: Jun 24, 2021 Frequency: 6 times per week Estimated Hrs Per Day: .5 hour per day Patient and/or Family Agrees t: Yes Safety Risks/Education Patient Education: Gait Training, Transfer Techniques, Correct Positioning Teaching Recipient: Patient Teaching Methods: Demonstration, Discussion Response to Teaching: Return Demonstration Time/GCodes Time In: 945 Time Out: 1008 Total Billed Treatment Time: 23 Total Billed Treatment 1 visit, GT (15'), FA (8') ROMAINE MERCER PYRIDINE RECOVERY OPERATOR May 26, 2021 11:23
--- NOTE | 2021-05-26 11:27 | Progress Note ---
CYNTHIA DEUTSCH MD 05/26/21 1127: Subjective Subjective/Events-last exam Patient worked with PT yesterday. No acute events overnight. He reports that blurred vision is a little better than yesterday. No new SCHMIDT, CP, SOB, abdominal pain. Objective Exam Last Set of Vital Signs Vital Signs Date Time Temp Pulse Resp B/P (MAP) Pulse Ox O2 Delivery O2 Flow Rate FiO2 05/26/21 08:00 37.2 74 20 162/91 96 Room Air 05/21/21 23:22 21 Capillary Refill : Less Than 3 Seconds I&O Intake and Output 05/26/21 00:00 Intake Total 1025 ml Output Total 800 ml Balance 225 ml Intake Oral 1025 ml Output Urine Total 800 ml Bladder Scan Volume Amount 303 ml General: Alert, Oriented X3, No Acute Distress HEENT: Atraumatic, PERRLA Neck: Supple Lungs: Clear to Auscultation, Normal Air Movement Heart: Regular Rate, Normal S1, Normal S2, No Murmurs Abdomen: Normal Bowel Sounds, Soft, No Hepatosplenomegaly Extremities: No Edema Skin: No Rashes Neuro: Other (Sitting up in bed, tracks on exam.) Psych/Mental Status: Mental Status NL Results/Procedures Lab Laboratory Tests 05/26/21 05:14: White Blood Count 10.8, Red Blood Count 5.70H, Hemoglobin 16.7, Hematocrit 50, Mean Corpuscular Volume 88, Mean Corpuscular Hemoglobin 29, Mean Corpuscular Hemoglobin Concent 34, Red Cell Distribution Width 14.2, Platelet Count 261, Mean Platelet Volume 10.6, Immature Granulocyte % (Auto) 1, Neutrophils (%) (Auto) 71, Lymphocytes (%) (Auto) 15, Monocytes (%) (Auto) 11, Eosinophils (%) (Auto) 2, Basophils (%) (Auto) 1, Neutrophils # (Auto) 7.7, Lymphocytes # (Auto) 1.6, Monocytes # (Auto) 1.2H, Eosinophils # (Auto) 0.2, Basophils # (Auto) 0.1, Immature Granulocyte # (Auto) 0.1, Sodium Level 141, Potassium Level 3.8, Chloride Level 106, Carbon Dioxide Level 21, Anion Gap 14, Blood Urea Nitrogen 31H, Creatinine 1.76H, Estimat Glomerular Filtration Rate 38, BUN/Creatinine Ratio 18, Glucose Level 104, Calcium Level 9.1, Corrected Calcium 9.6, Phosphorus Level 3.3, Magnesium Level 2.0, Total Bilirubin 0.6, Aspartate Amino Transf (AST/SGOT) 22, Alanine Aminotransferase (ALT/SGPT) 19, Alkaline Phosphatase 123, Total Protein 6.2L, Albumin 3.4 Microbiology 05/21/21 MRSA Screen - Final, Complete MRSA not isolated Radiology NAME: ALAN CHURCH [facility] REC#: [id number] PT STATUS: ADM IN : 1945 PHYSICIAN: KATINA PUGH MD ADMIT DATE: 05/21/21/ICU Signed Date of Exam:05/22/21 CT ANGIO HEAD/NECK PROCEDURE: CT angiography of the head and CT angiography of the neck with and without contrast. TECHNIQUE: Contiguous noncontrast images were obtained from the skull base through the vertex. After intravenous contrast administration, helical CT angiography of the neck was performed. Source data was reformatted into 3D MIP projections. Delayed post contrast acquisition was also obtained. Auto Exposure Controls were utilized during the CT exam to meet ALARA standards for radiation dose reduction. INDICATION: Acute on chronic strokes with vertebral artery occlusion CORRELATED with head CTs of one-day prior as well as brain MRI of earlier this same date. CT HEAD: Precontrast and delayed postcontrast enhanced head CT now shows subtle visualization of edema in the inferomedial left cerebellar hemisphere where infarct was well visualized on earlier brain MRI. No evidence for its hemorrhagic transformation. Old right frontoparietal areas of encephalomalacia are stable and chronic. No abnormal parenchymal or meningeal enhancement on the delayed postcontrast enhanced images found. CT ANGIOGRAM NECK: Aortic arch and branching pattern of the great vessels was normal. There is a diminutive right cervical vertebral artery which occludes at the C2 level. The cervical left vertebral artery is dominant however that vessel occludes just below the level of the skull base. There is calcified and soft plaques at the carotid bulbs and bifurcations extending into the proximal ICAs bilaterally, without hemodynamically significant degree of narrowing. CT ANGIOGRAM HEAD: The intradural vertebral arteries bilaterally are occluded. There is presumed retrograde flow and collateralization in the basilar artery with opacification of the right PICA. The left PICA is not visualized. The basilar tip is patent and there is flow in the bilateral LIT[employer]ATION LEGAL SECRETARY segments. The right [employer]GAL SECRETARY is in origin off the right internal carotid. There is a left-sided PCOM present which is patent. The bilateral L[employer] LEGAL SECRETARY segments are patent. The intracranial ICAs are calcified at their cavernous segments with mild diffuse narrowing. No hemodynamically significant focal stenosis found. The left A1 segment is atretic or absent. The right patent. The ACOM is patent and there is opacification of the bilateral anterior cerebral arteries. The bilateral middle cerebral arteries and their primary segments appeared patent. IMPRESSION: Dominant left cervical vertebral occludes just below the skull base. The atretic small caliber right vertebral cannot be identified as patent beyond the C2 level. The cervical carotid showed calcified and soft plaque without hemodynamically significant degrees of narrowing. CT ANGIOGRAM HEAD: Occlusion of the bilateral intradural vertebral arteries and left PICA. There is flow in the basilar probably collateralized via the anterior circulation with a origin of the right [employer]IT[employer] LEGAL SECRETARY via the anterior circulation and a patent contralateral left PCOM. Bilateral clinical account liaison and basilar patent and calcified plaques of the left greater than right cavernous segments of the intracranial carotids resulted in no hemodynamically significant stenosis. There is an atrophic or absent left A1 segment with widely patent right A1 segment with opacified ACOM and bilateral anterior cerebral arteries. The bilateral middle cerebral arterial segments showed no thrombus, aneurysm or significant stenosis. No aneurysm identified. HEAD CT shows old remote right-sided infarcts with new visualization of faint edema associated with the known left inferomedial left cerebellar hemispheric infarct along the PICAs distribution. No findings of hemorrhagic transformation of known stroke. Dictated by: Dictated on workstation # [id number] Dict: 05/22/[id number] Trans: 05/22/211846 [facility] [id number] Interpreted by: EMANI PATINO Electronically signed by: EMANI PATINO 05/22/211846 NAME: ALAN CHURCH [facility] REC#: [id number] PT STATUS: ADM IN : 1945 PHYSICIAN: FILIBERTO HERRERA DO ADMIT DATE: 05/21/21/ICU Signed Date of Exam:05/22/21 MRI BRAIN W/O CONTRAST Clinical indication: Patient with CVA Exam: MRI of the brain performed without IV contrast. Sequences include axial DWI, ADC map, coronal gradient echo, axial T2, axial FLAIR, axial T1, and sagittal T1. Comparison: None. Findings: There is a small to moderate sized area of diffusion restriction involving the medial inferior left cerebellar hemisphere and left lateral brainstem medulla. There is associated high T2 signal in these regions. There is no evidence of hemorrhagic transformation. There is a small area of diffusion restriction involving the high posterior lateral left frontal lobe region with associated high T2 signal. There is brain parenchymal volume loss. There is a total of moderate amount of chronic infarcts involving the parasagittal right frontal lobe periventricular region and lateral right parietal lobe region. There is no hydrocephalus, brain herniation, or midline shift. Basal cisterns are unremarkable. There is loss of flow void signal within the left cervical vertebral artery and either distal left intradural vertebral artery or proximal basilar artery. There are postoperative changes to both globes which may be related to lens implants. The extracranial soft tissues, skull, and orbits are otherwise unremarkable. Paranasal sinuses and mastoid air cells are clear. IMPRESSION: 1: There is a small to moderate sized area of acute infarct involving the inferior medial left cerebellum and lateral posterior brainstem medulla which correlates to the left vertebral artery and left PICA distribution. There is note of absence of flow void with abnormal increased T2 signal involving the left vertebral artery and possibly the left proximal basilar artery which may represent occlusion. CT angiogram of the head and neck is suggested for further evaluation. 2: There is small area of acute infarct involving the high lateral posterior left frontal lobe region. 3: Chronic cerebral infarct involving the right frontal lobe and right parietal lobe. Results of this report discussed with Katina Pugh via the telephone on 05/22/2021 at 1725 hours. Dictated by: Dictated on workstation # [id number] Dict: 05/22/[id number] Trans: 05/23/21 [facility] [id number] Interpreted by: MOHSEN ANDRADE MD Electronically signed by: MOHSEN ANDRADE MD 05/23/21 0650 Assessment/Plan Assessment/Plan (1) Cerebrovascular accident Status: Acute Assessment & Plan: Neuro exam stable with vertigo, blurry vision and dysarthria and left sided weakness. Bilateral vertebral artery occlusion and left PICA occlusions seen on CTA. No significant improvement after tenectaplase. Case discussed with [facility] neurology who has recommended medical management. Currently awaiting insurance approval for rehab. -ASA, clopidogrel x at least 21 days with outpatient neurology referral -Atorvastatin -Amlodipine -Cardiology following -PT/OT/ST -Rehab pending insurance approval Qualifiers: Qualified Codes: I63.212 - Cerebral infarction due to unspecified occlusion or stenosis of left vertebral artery (2) HTN (hypertension) Status: Chronic Assessment & Plan: History of HTN on amlodipine 10 mg outpatient. -Increase to amlodipine 10 mg. Qualifiers: Qualified Codes: I10 - Essential (primary) hypertension (3) CAD (coronary artery disease) Status: Chronic Assessment & Plan: History of CAD s/p 5V CABG in 2009 with most recent stent placed 08/2018 and recent negative stress test. -On ASA (4) CKD (chronic kidney disease) Status: Chronic Assessment & Plan: CKD3b with creatinine at baseline, though trending up. -Daily BMP -500 cc bolus today Qualifiers: Qualified Codes: N18.32 - Chronic kidney disease, stage 3b (5) History of seizure Status: Chronic Assessment & Plan: Patient reports 1 GTC seizure following his stroke in 03/2020 on Keppra outpatient. -Continue keppra 500 mg BID (6) Hypothyroidism Assessment & Plan: On synthroid 112 mcg daily outpatient. TSH normal. -Continue home synthroid Clinical Quality Measures DVT/VTE Risk/Contraindication: Contraindications-Pharm: Other *list below* Contraindications-Mechi: Other *list below* Other: tpa KATINA PUGH MD 05/26/212134: Supervisory-Addendum Brief Supervisory Addendum I personally have seen and evaluated the patient and I agree with the documented assessment and plan by PGY3 Cornelio Deutsch MD. CYNTHIA DEUTSCH MD May 26, 2021 11:27 KATINA PUGH MD May 26, 2021 21:35
--- NOTE | 2021-05-26 15:53 | D/C HH Face to Face Order ---
D/C Face to Face Orders Reconcile Patient Problems Problems Reviewed?: Yes Instructions for Patient Via [facility] [place], Patient Instructions/FollowUp: PCP 1 week Physician to follow Patient: [facility] Discharge Diet for Home: Cardiac Diet Patient Problems: CVA Patient Data-Allergies,Ht & Wt Patient Allergies: Coded Allergies: No Known Food Allergies (Verified Allergy, Unknown, 05/21/21) Height (Feet): 5 Height (Inches): 9.00 Weight (Pounds): 200 Weight (Ounces): 0.0 Home Health Need/Face to Face Date of Face to Face: May 26, 2021 Clinical Findings: Instability, Muscle weakness, Unsteady gait I have seen Pt pikh-ee-etwe: Yes Discharged To: Home Diagnosis/Conditions: CVA Patient is Homebound due to: [place] fall risk due to instabilty, Muscle weakness Homebound Status Due to the above stated illness, injury or surgical procedure (medical condition or diagnosis) and associated clinical findings, the patient is homebound because of his/her inability to leave home except with aid of a supportive device and/or person AND leaving the home requires a considerable and taxing effort or is medically contraindicated. Pt req the following assistanc: [facility] Nursing Orders Home Health Services Order: Nursing Services, Roto Rooter Operator-Evaluate & Treat, Physical Therapy-Evaluate & Treat Home Health Infusion Therapy Line Start Date: May 21, 2021 Certify Stmt I certify that this patient is under my care and that I, a nurse practitioner or a physician; a restaurant assistant manager working with me, had a face to face encounter that - meets the physician face to face encounter requirements with this patient as dated. FILIBERTO HERRERA DO May 26, 2021 15:53
[2021-05-26 21:14] VITALS: BP 179/68
[2021-05-27 05:10] LABS: BASOPHILS # (AUTO) 0.1 10^3/uL (0.0-0.1); BASOPHILS % (AUTO) 1 % (0-10); EOSINOPHILS # (AUTO) 0.2 10^3/uL (0.0-0.3); EOSINOPHILS % (AUTO) 2 % (0-10); HEMATOCRIT 50 % (40-54); HEMOGLOBIN 16.3 g/dL (13.3-17.7); LYMPHOCYTES # (AUTO) 1.1 10^3/uL (1.0-4.0); LYMPHOCYTES % (AUTO) 10 % (12-44); MEAN CORPUSCULAR HEMOGLOBIN 29 pg (25-34); MEAN CORPUSCULAR HGB CONC 33 g/dL (32-36); MEAN CORPUSCULAR VOLUME 88 fL (80-99); MEAN PLATELET VOLUME 10.8 fL (9.0-12.2); MONOCYTES # (AUTO) 1.1 10^3/uL (0.0-1.0); MONOCYTES % (AUTO) 10 % (0-12); NEUTROPHILS # (AUTO) 8.5 10^3/uL (1.8-7.8); NEUTROPHILS % (AUTO) 77 % (42-75); PLATELET COUNT 243 10^3/uL (130-400)
[2021-05-27 05:19] LABS: ALBUMIN 3.4 GM/DL (3.2-4.5); POTASSIUM 3.6 MMOL/L (3.6-5.0)
[2021-05-27 05:21] LABS: CALCIUM 8.9 MG/DL (8.5-10.1)
[2021-05-27 05:22] LABS: TOTAL PROTEIN 6.1 GM/DL (6.4-8.2)
[2021-05-27 05:23] LABS: BILIRUBIN,TOTAL 0.7 MG/DL (0.1-1.0)
[2021-05-27 05:25] LABS: CREATININE SERUM 1.62 MG/DL (0.60-1.30)
[2021-05-27] MEDS: MAGNESIUM 1 GM/100 ML IVPB 100 ML IV SCH (05:34)
[2021-05-27] MEDS: POTASSIUM CL 10MEQ/50ML IVPB 50 ML IV SCH (06:39)
[2021-05-27] MEDS: KCL 20 MEQ TAB (K-DUR) PO SCH (06:39)
[2021-05-27] MEDS: LEVOTHYROXINE 112 MCG (LEVOTHROID) TAB PO SCH (06:42)
[2021-05-27 08:00] VITALS: BP 175/90
[2021-05-27] MEDS: CLOPIDOGREL 75 MG (PLAVIX) TABLET PO SCH (09:33)
[2021-05-27] MEDS: DOCUSATE SODIUM 100 MG (COLACE) CAP PO SCH (09:33)
[2021-05-27] MEDS: ASPIRIN 81 MG CHEW (CHILDREN'S ASA) PO SCH (09:33)
[2021-05-27] MEDS: amLODIPine 10 MG (NORVASC) TAB PO SCH (09:34)
[2021-05-27] MEDS: SENNA W/DOCUSATE (SENOKOT S) TABLET PO SCH (09:34)
--- NOTE | 2021-05-27 10:01 | Cardiology Progress Note ---
Subjective Date Seen by Provider: May 27, 2021 Time Seen by Provider: 10:00 Subjective/Events-last exam Patient is sitting in a chair comfortably, feeling better today. No new complaint Review of Systems General: No Chills, No Night Sweats, No Fatigue, No Malaise, No Appetite, No Other HEENT: No Head Aches, No Visual Changes, No Eye Pain, No Ear Pain, No Dysphasia, No Sinus Congestion, No Post Nasal Drip, No Sore Throat, No Other Pulmonary: No Dyspnea, No Cough, No Pleuritic Chest Pain, No Other Cardiovascular: No: Chest Pain, Palpitations, Orthopnea, Paroxysmal Noc. Dyspnea, Edema, Lt Headedness, Other Objective-Cardiology Exam Last Set of Vital Signs Vital Signs 05/26/21 05/27/21 05/27/21 21:14 08:00 09:00 Temp 35.8 Pulse 68 Resp 18 B/P (MAP) 175/90 (118) Pulse Ox 95 O2 Delivery Room Air FiO2 21 I&O Intake and Output 05/27/21 00:00 Intake Total 1280 ml Output Total 1200 ml Balance 80 ml Intake Oral 780 ml IV Total 500 ml Output Urine Total 1200 ml Bladder Scan Volume Amount 338 ml # Voids 1 # Bowel Movements 1 General: Alert, Oriented X3, No Acute Distress HEENT: Atraumatic, PERRLA Neck: Supple Lungs: Clear to Auscultation, Normal Air Movement Heart: Regular Rate, Normal S1, Normal S2, No Murmurs Abdomen: Normal Bowel Sounds, Soft, No Hepatosplenomegaly Extremities: No Edema Skin: No Rashes Neuro: Other (Sitting up in bed, tracks on exam.) Psych/Mental Status: Mental Status NL Results Lab Laboratory Tests 05/27/21 04:52 A/P-Cardiology Admission Diagnosis Acute CVA Coronary artery disease Hypertension Hyperlipidemia Assessment/Plan Acute CVA resulted in left-sided weakness, facial droop and vertigo with visual disturbance. Reporting significant improvement in his symptoms. MRI was done on May 2021 reported as a small to moderate sized area of acute infarct involving the inferior medial left cerebellum and lateral posterior brainstem which correlate with the left vertebral artery and left PICA distribution. There is a note of absence of flow with abnormal increased T2 signal involving the left vertebral artery and possible the left proximal basilar artery which may represent occlusion. There is a small area of acute infarct involving the high lateral posterior left frontal lobe region, chronic cerebral infarct involving the right frontal lobe and right parietal lobe. History of CVA in March 2020 MRI from March 2020 reported acute cerebral infarct involving the right parietal lobe region with no evidence of hemorrhagic transformation History of loop monitor implanted in March 2020 with no arrhythmia detected, last interrogation was done on May 24, 2021 reported no evidence of arrhythmia by Dr. Alaniz. Coronary artery disease, history of CABG x5 done by Dr. Migue Engle at [facility] in [place] in 2009 Non-ST elevation myocardial infarction in July 2018 was treated with cardiac catheterization reported as 95% stenosis in the mid LAD, proximal occlusion of the circumflex artery and 90 to 95% stenosis in the RCA, 3 out of 4 bypass grafts were occluded, there is a graft to the obtuse marginal branch was patent with 95% proximal stenosis and treated with a stent Iris 3 x 23 mm. Patent BAIN to LAD Cardiac catheterization done in August 2018, successful stenting to the proximal to mid RCA with Iris 2.25 x 28 mm stent 2D echocardiogram reported on May 22, [address] Aguila, ejection fraction 70 to 75%, moderate LVH, paradoxical septal motion, grade 1 diastolic dysfunction, left atrium mildly dilated, possible PFO with [id number] shunt, mild aortic valve sclerosis. Stress test done on February 03, 2021 showing no evidence of ischemia, ejection fraction 61% Hypertension, controlled, [facility] stroke team advised blood pressure to be kept around 160 systolic, still having blood pressure around 175, I will add losartan 25 mg daily and continue to monitor Hyperlipidemia, maintained on statin Chronic kidney disease, continue to monitor renal function Hypothyroidism, maintained on replacement therapy and followed by primary care physician Carotid stenosis, minimal bilateral disease by ultrasound in May 2019 History of seizure disorder, followed by primary care physician BPH, history of RADHA ST MD May 27, 2021 10:01
--- NOTE | 2021-05-27 10:30 | Physical Therapy Daily Note ---
PT Daily Note-Current Subjective Pt is alert and agreeable to therapy. Pt states he wants to get up and walk. Pain Numeric Pain Scale: 0-No Pain Location: No Pain Reported Mental Status Patient Orientation: Person, Place, Time, Situation Transfers SCALE: Activities may be completed with or without assistive devices. 9-Vcjidjsxbw-ugjnvvf completes the activity by him/herself with no assistance from a helper. 5-Set-up or Clean-up Assistance-helper sets up or cleans up; patient completes activity. [place] assists only prior to or following the activity. 4-Supervision or Touching Assistance-helper provides verbal cues and/or touching/steadying and/or contact guard assistance as patient completes activity. Assistance may be provided throughout the activity or intermittently. 3-Partial/Moderate Assistance-helper does LESS THAN HALF the effort. [place] lifts, holds or supports trunk or limbs, but provides less than half the effort. 2-Substantial/Maximal Assistance-helper does MORE THAN HALF the effort. [place] lifts or holds trunk or limbs and provides more than half the effort. 3-Cxeskgtnd-ctjqbn does ALL the effort. Patient does none of the effort to complete the activity. Or, the assistance of 2 or more helpers is required for the patient to complete the activity. If activity was not attempted, code reason: 7-Patient Refused. 9-Not Applicable-not attempted and the patient did not perform the activity before the current illness, exacerbation or injury. 10-Not Attempted due to Environmental Limitations-(lack of equipment, weather restraints, etc.). 88-Not Attempted due to Medical Conditions or Safety Concerns. Roll Left & Right (QC): 3 Sit to Lying (QC): 3 Lying to Sitting/Side of Bed(Q: 3 Sit to Stand (QC): 3 Chair/Nnx-uj-Davle Xfer(QC): 3 Gait Training Does the Patient Walk?: Yes Distance: 250ft Walk 10 feet (QC): 3 Walk 50 ft with 2 Turns(QC): 3 Walk 150 ft (QC): 3 Gait Persons Needed: 1 Gait Assistive Device: FWW Pt has (L) neglect and leans (L) requiring moderate assist to stay neutral. If assist is removed he leans precariously (L). Wheelchair Training Does the Pt Use a Wheelchair?: No Exercises Standin way Ex=Flex, Abd, Ext Standing Reps: 10 Performed standing ex in walker with moderate assist. Assessment Current Status: Good Progress (L) neglect and (L) lean during all tasks. Good (L) LE strength and correct foot placement (B). PT Half-Way Goals Half-Way Goals PT Seal Extrusion Operator Goals Time Frame: Jun 24, 2021 Roll Left & Right (QC): 6 Sit to Lying (QC): 6 Lying-Sitting on Side/Bed(QC): 6 Sit to Stand (QC): 4 Chair/Pzb-km-Fdttp Xfer(QC): 4 Toilet Transfer (QC): 4 Car Transfer (QC): 4 Walk 10 feet (QC): 4 Walk 50ft with 2 Turns (QC): 4 Walk 150 ft (QC): 4 PT Plan Treatment/Plan Treatment Plan: Continue Plan of Care Treatment Plan: Bed Mobility, Education, Functional Activity Zeb, Functional Strength, Gait, Safety, Therapeutic Exercise, Transfers Treatment Duration: Jun 24, 2021 Frequency: 6 times per week Estimated Hrs Per Day: .5 hour per day Patient and/or Family Agrees t: Yes Time/GCodes Time In: 0855 Time Out: 0910 Total Billed Treatment Time: 15 Total Billed Treatment 1, gt 15 DAYANARA CONCEPCION PT May 27, 2021 10:30
--- NOTE | 2021-05-27 11:15 | Discharge Summary ---
Discharge Summary Hospital Course Was the Problem List Reviewed?: Yes Problems/Dx: (1) Cerebrovascular accident Status: Acute Qualifiers: Qualified Codes: I63.212 - Cerebral infarction due to unspecified occlusion or stenosis of left vertebral artery Hospital Course Date of Admission: May 21, 2021 at 20:28 Admission Diagnosis : Family Physician/Provider: Mena Quigley Aprn Date of Discharge: 05/27/21 Discharge Diagnosis: CVA, seizure disorder, urinary retention requiring in and out caths at discharge Hospital Course: Patient had a standard hospital course after he was admitted with CVA. MRI revealed multiple areas of stroke and stroke neurologist had no other recommenda tions other than Plavix and aspirin and statin. He was said for inpatient rehab after PT and OT evaluated him to benefit and after multiple therapy sessions he was not willing to go to inpatient rehab and instead wanted to go to home health. Urinary retention required in and out caths at discharge. He was not optimized at time of discharge due to leaning over to the right and a fall risk so if he fails at home we will admit him to inpatient rehab. Labs and Pending Lab Test: Laboratory Tests 05/27/21 04:52: White Blood Count 11.0, Red Blood Count 5.67H, Hemoglobin 16.3, Hematocrit 50, Mean Corpuscular Volume 88, Mean Corpuscular Hemoglobin 29, Mean Corpuscular Hemoglobin Concent 33, Red Cell Distribution Width 13.9, Platelet Count 243, Mean Platelet Volume 10.8, Immature Granulocyte % (Auto) 1, Neutrophils (%) ( Auto) 77H, Lymphocytes (%) (Auto) 10L, Monocytes (%) (Auto) 10, Eosinophils (%) (Auto) 2, Basophils (%) (Auto) 1, Neutrophils # (Auto) 8.5H, Lymphocytes # (Auto) 1.1, Monocytes # (Auto) 1.1H, Eosinophils # (Auto) 0.2, Basophils # (Auto) 0.1, Immature Granulocyte # (Auto) 0.1, Sodium Level 141, Potassium Level 3.6, Chloride Level 108H, Carbon Dioxide Level 20L, Anion Gap 13, Blood Urea Nitrogen 30H, Creatinine 1.62H, Estimat Glomerular Filtration Rate 42, BUN/Creatinine Ratio 19, Glucose Level 110H, Calcium Level 8.9, Corrected Calcium 9.4, Magnesium Level 1.9, Total Bilirubin 0.7, Aspartate Amino Transf (AST/SGOT) 23, Alanine Aminotransferase (ALT/SGPT) 22, Alkaline Phosphatase 117, Total Protein 6.1L, Albumin 3.4 Microbiology 05/21/21 MRSA Screen - Final, Complete MRSA not isolated Home Meds Active Reported Levetiracetam 500 Mg Tablet 500 Mg PO BID Multivitamin 1 Each Tablet 1 Each PO DAILY Clopidogrel (Clopidogrel Bisulfate) 75 Mg Tablet 75 Mg PO DAILY Allopurinol 100 Mg Tablet 50 Mg PO DAILY TAKES OF A 100MG TAB Atorvastatin Calcium 80 Mg Tablet 80 Mg PO DAILY Aspirin 81 Mg Tab.chew 81 Mg PO DAILY Amlodipine Besylate 10 Mg Tablet 10 Mg PO DAILY Fish Oil 1,000 mg Capsule ([place] 3 Polyunsat Fatty Acids) 1,000 Mg Cap 1,000 Mg PO BID Levothyroxine Sodium 112 Mcg Tablet 112 Mcg PO DAILY Assessment/Pt Instructions PCP in 1 week Discharge Planning: <30 minutes discharge planning Discharge Instructions Discharge Diet: No Restrictions Activity as Tolerated: Yes Discharge Physical Examination Vital Signs Vital Signs Date Time Temp Pulse Resp B/P (MAP) Pulse Ox O2 Delivery O2 Flow Rate FiO2 05/27/21 09:00 Room Air 05/27/21 08:00 35.8 68 18 175/90 (118) 95 05/26/21 21:14 21 General Appearance: No Apparent Distress, WD/WN, Chronically ill Respiratory: Lungs Clear, Normal Breath Sounds Cardiovascular: Regular Rate, Rhythm Neurologic/Psychiatric: Alert, Oriented x3 Allergies: Coded Allergies: No Known Food Allergies (Verified Allergy, Unknown, 05/21/21) Discharge Summary Date of Admission May 21, 2021 at 20:28 Date of Discharge Discharge Date: May 27, 2021 Clinical Quality Measures DVT/VTE Risk/Contraindication: Contraindications-Pharm: Other *list below* Contraindications-Mechi: Other *list below* Other: tpa FILIBERTO HERRERA DO May 27, 2021 11:15
[2021-05-28] MEDS ORDERED: LOSARTAN 25 MG (COZAAR) TAB PO SCH (09:00)
== END 2021-05-27 13:10 | disposition home health service (06) | DRG 62 ==
LOC: EDUNIT# 18:34 → ER 18:35 → ICU 20:28 → 4TH 05-23 18:36
PROVIDERS: ADMIT Internal Medicine; ATTEND Internal Medicine
DX: I63.213 Cerebral infarction due to unspecified occlusion or stenosis of bilateral vertebral arteries (principal); N17.9 Acute kidney failure, unspecified; I69.354 Hemiplegia and hemiparesis following cerebral infarction affecting left non-dominant side; N18.4 Chronic kidney disease, stage 4 (severe); I25.810 Atherosclerosis of coronary artery bypass graft(s) without angina pectoris; R47.1 Dysarthria and anarthria; R42 Dizziness and giddiness; R29.810 Facial weakness; R29.704 NIHSS score 4; E87.6 Hypokalemia; I69.398 Other sequelae of cerebral infarction; G40.909 Epilepsy, unspecified, not intractable, without status epilepticus; R73.9 Hyperglycemia, unspecified; R33.9 Retention of urine, unspecified; I12.9 Hypertensive chronic kidney disease with stage 1 through stage 4 chronic kidney disease, or unspecified chronic kidney disease; I25.10 Atherosclerotic heart disease of native coronary artery without angina pectoris; E03.9 Hypothyroidism, unspecified; E78.5 Hyperlipidemia, unspecified; M10.9 Gout, unspecified; I25.2 Old myocardial infarction; Z95.5 Presence of coronary angioplasty implant and graft; Z95.1 Presence of aortocoronary bypass graft; Z79.82 Long term (current) use of aspirin; Z82.49 Family history of ischemic heart disease and other diseases of the circulatory system
CPT/HCPCS: 36415; 70450; 70496; 70498; 70551; 71045; 80053; 80061; 81000; 82947; 83036; 83735; 84100; 84443; 84484; 85007; 85025; 85027; 85379; 85610; 85730; 87081; 92977; 93005; 93041; 93306; 94664; 94760; 96374; 96375; 99291

== ENCOUNTER 2022-03-27 07:41 | Day surgery (SDC) | payer MEDICARE ==
[2022-03-27] VITALS (9 sets, daily range): BP systolic 123–168; BP diastolic 80–98
[~2022-03-27] VITALS: Ht 175.3 cm; Wt 97.7 kg
[2022-03-27] MEDS ORDERED: LIDOCAINE 2% VISCOUS 15 ML UDC ONE (07:50)
[2022-03-27] MEDS ORDERED: NS IV 1000 ML 1,000 ML ONE (07:51)
[2022-03-27] MEDS ORDERED: NS IV 1000 ML 1,000 ML IV ONE (08:00)
[2022-03-27] MEDS ORDERED: MIDAZOLAM 5 MG/5 ML (VERSED) VIAL IV ONE (08:00)
[2022-03-27] MEDS ORDERED: fentaNYL INJ 100 MCG/2 ML AMP IV ONE (08:00)
[2022-03-27] MEDS ORDERED: LIDOCAINE 2% VISCOUS 15 ML UDC PO ONE (08:00)
[2022-03-27 08:14] LABS: HEMATOCRIT 48 % (40-54); HEMOGLOBIN 15.9 g/dL (13.3-17.7); MEAN CORPUSCULAR HEMOGLOBIN 31 pg (25-34); MEAN CORPUSCULAR HGB CONC 33 g/dL (32-36); MEAN CORPUSCULAR VOLUME 93 fL (80-99); MEAN PLATELET VOLUME 10.5 fL (9.0-12.2); PLATELET COUNT 221 10^3/uL (130-400); WHITE BLOOD COUNT 7.6 10^3/uL (4.3-11.0)
[2022-03-27] MEDS ORDERED: LISI20TA26 PO (08:32)
[2022-03-27] MEDS ORDERED: CHOL10004 PO (08:33)
[2022-03-27 08:37] LABS: INR 1.1 (0.8-1.4); PROTHROMBIN TIME PATIENT 14.2 SEC (12.2-14.7)
[2022-03-27 08:46] LABS: ALBUMIN 3.8 GM/DL (3.2-4.5); BILIRUBIN,TOTAL 0.5 MG/DL (0.1-1.0); CALCIUM 9.2 MG/DL (8.5-10.1); CREATININE SERUM 1.94 MG/DL (0.60-1.30); POTASSIUM 4.2 MMOL/L (3.6-5.0); TOTAL PROTEIN 6.7 GM/DL (6.4-8.2)
[2022-03-27] MEDS ORDERED: fentaNYL INJ 100 MCG/2 ML AMP ONE (09:38)
[2022-03-27] MEDS ORDERED: MIDAZOLAM 5 MG/5 ML (VERSED) VIAL ONE (09:38)
--- NOTE | 2022-03-27 11:01 | Cardiac Procedure Note-CS/ASA ---
Pre-Procedure Note Pre-Op Procedure Note Date of Available H&P: Mar 22, 2022 Date H&P Reviewed: Mar 27, 2022 Time H&P Reviewed: 10:15 History & Physical: H&P Reviewed, No changes noted Conscious Sedation Pre-Proced ASA Score 3 For ASA 3 and 4: Consider anesthesia and medical clearance. Also, for patients with a history of failed moderate sedation consider anesthesia. Airway Lungs Heart ASA score ASA 1: a normal healthy patient ASA 2: a patient with a mild systemic disease (mid diabetes, controlled hypertension, obesity ASA 3: a patient with a severe systemic disease that limits activity (angina, COPD, prior Myocardial infarction) ASA 4: a patient with an incapacitating disease that is a constant threat to life (CHF, renal failure) ASA 5: a moribund patient not expected to survive 24 hrs. (ruptured aneurysm) ASA 6: a declared brain- patient whose organs are being harvested. For emergent operations, add the letter E after the classification Mallampati Classification Grade 3 Sedation Plan Analgesia, Amnesia, Plan communicated to team members, Discussed options with patient/fam, Discussed risks with patient/fam The patient is an appropriate candidate to undergo the planned procedure, sedation, and anesthesia. The patient immediately re-assessed prior to indication. BELLA SMITH MD FACP FAC CCDS Mar 27, 2022 11:01
== END 2022-03-27 11:54 | disposition home or self-care (01) ==
LOC: CATH 07:41
PROVIDERS: ATTEND Internal Medicine Cardiovascular Disease
DX: I63.9 Cerebral infarction, unspecified (principal); I25.10 Atherosclerotic heart disease of native coronary artery without angina pectoris; I12.9 Hypertensive chronic kidney disease with stage 1 through stage 4 chronic kidney disease, or unspecified chronic kidney disease; N18.4 Chronic kidney disease, stage 4 (severe); E78.2 Mixed hyperlipidemia; E03.9 Hypothyroidism, unspecified; F17.210 Nicotine dependence, cigarettes, uncomplicated; I77.9 Disorder of arteries and arterioles, unspecified; G40.909 Epilepsy, unspecified, not intractable, without status epilepticus; Z79.899 Other long term (current) drug therapy; I65.23 Occlusion and stenosis of bilateral carotid arteries
CPT/HCPCS: 36415; 80053; 80061; 85027; 85610; 85730; 87081; 93005; 93312

== ENCOUNTER 2022-07-01 15:58 | Inpatient (IN) | payer MEDICARE ==
[~2022-07-01] VITALS: Ht 180 cm; Wt 97.4 kg
[~2022-07-01 15:58] MED LIST changes: +CHOL10004 PO; +CLOP-31 PO; -CLOP75TA69 PO; +LISI20TA26 PO
[2022-07-01 16:41] LABS: BASOPHILS % (AUTO) 0 % (0-10); EOSINOPHILS # (AUTO) 0.2 10^3/uL (0.0-0.3); EOSINOPHILS % (AUTO) 2 % (0-10); HEMATOCRIT 48 % (40-54); HEMOGLOBIN 15.9 g/dL (13.3-17.7); LYMPHOCYTES # (AUTO) 1.5 10^3/uL (1.0-4.0); LYMPHOCYTES % (AUTO) 14 % (12-44); MEAN CORPUSCULAR HEMOGLOBIN 30 pg (25-34); MEAN CORPUSCULAR HGB CONC 33 g/dL (32-36); MEAN CORPUSCULAR VOLUME 92 fL (80-99); MEAN PLATELET VOLUME 10.5 fL (9.0-12.2); MONOCYTES # (AUTO) 1.4 10^3/uL (0.0-1.0); MONOCYTES % (AUTO) 13 % (0-12); NEUTROPHILS # (AUTO) 8.2 10^3/uL (1.8-7.8); NEUTROPHILS % (AUTO) 72 % (42-75); PLATELET COUNT 289 10^3/uL (130-400); WHITE BLOOD COUNT 11.4 10^3/uL (4.3-11.0)
[2022-07-01 16:46] LABS: ALBUMIN 3.9 GM/DL (3.2-4.5); CHLORIDE 110 MMOL/L (98-107); POTASSIUM 4.5 MMOL/L (3.6-5.0); SODIUM 141 MMOL/L (135-145)
--- NOTE | 2022-07-01 16:46 | ED Neurological Problem ---
General Chief Complaint: Neurological Problems Stated Complaint: SEIZURE/POSS STROKE LIKE SYMPTOMS Nursing Triage Note: PT ARRIVED PER EMS, PT HAS HAD SEIZURES TODAY, PT HAS HX OF SEIUZURES AND STROKE, PT IS POST ITCAL, PT FELL AND HIT HEAD WHEN HAD SEIZURE TODAY. PT HAS SL IN L HAND #20 BY EMS. PT HAS ABRASION TO L SIDE FOREHEAD AND TOP FOREHEAD FROM FALL Source: family () Exam Limitations: clinical condition (MEGHNA TOLLIVER MD) History of Present Illness Date Seen by Provider: Jul 01, 2022 Time Seen by Provider: 16:22 Initial Comments Patient is a 77-year-old male with a history of seizure and prior stroke who presents to the emergency room by ambulance. His provides the history as since his "episode" he has been nonverbal. states approximately 2 hours ago she heard a loud crash in their home office, she went in and found him lying face down on the floor. He would not respond to her. He had an abrasion she noted to the right side of his head. She states she believes he is on a blood thinner. He has had prior cardiac bypass surgery. He is on seizure medications. She states he only has seizures possibly once a year. She denies any recent illnesses such as fevers, chills, cough or congestion. She states that her morning was quite normal with no concerns. She states he made no attempt to look at her, move any of his extremities other than his left arm which has been trembling since the episode. He is unable to provide any HPI most likely secondary to possible postictal state. He is tracking me as I move around the room with his eyes. He does have fine tremor noted to the left upper extremity and will grasp my hand. He does withdraw both lower extremities to lightly stroking the bottom of his feet. His states that after his stroke several years ago he retained full st rength and coordination Timing/Duration: 1-3 hours Severity: severe Associated Symptoms: other ("not moving" "not talking") (MEGHNA TOLLIVER MD) Allergies and Home Medications Allergies Coded Allergies: No Known Drug Allergies (Unverified , 03/27/22) Patient Home Medication List Home Medication List Reviewed: Yes (MEGHNA TOLLIVER MD) Allopurinol (Allopurinol) 100 Mg Tablet, 50 MG PO DAILY, (Reported) Entered as Reported by: KARRI CONTI on 09/15/20952 Last Action: Reviewed Amlodipine Besylate (Amlodipine Besylate) 10 Mg Tablet, 10 MG PO DAILY, (Reported) Entered as Reported by: FLOR BRICEÑO on 08/26/18710 Last Action: Reviewed Aspirin (Aspirin) 81 Mg Tab.chew, 81 MG PO DAILY, (Reported) Entered as Reported by: FLOR BRICEÑO on 08/26/18710 Last Action: Reviewed Atorvastatin Calcium (Atorvastatin Calcium) 80 Mg Tablet, 80 MG PO DAILY, (Reported) Entered as Reported by: KARRI CONTI on 09/15/20952 Last Action: Reviewed Cetirizine HCl (Cetirizine HCl) 10 Mg Tablet, 10 MG PO DAILY PRN for ALLERGY SYMPTOMS, (Reported) Entered as Reported by: KARRI CONTI on 07/03/22 160 Last Action: Reviewed Cholecalciferol (Vitamin D3) (Vitamin D3) 25 Mcg (1000 Unit) Tablet, 25 MCG PO DAILY, (Reported) Entered as Reported by: GIOVANNA CURRAN on 03/27/22 0833 Last Action: Reviewed Clopidogrel Bisulfate (Clopidogrel) 75 Mg Tablet, 75 MG PO DAILY, (Reported) Entered as Reported by: KARRI CONTI on 09/15/20952 Last Action: Reviewed Levetiracetam (Levetiracetam) 500 Mg Tablet, 500 MG PO BID, (Reported) Entered as Reported by: KARRI CONTI on 05/22/21 0904 Last Action: Reviewed Levothyroxine Sodium (Levothyroxine Sodium) 112 Mcg Tablet, 112 MCG PO DAILY, (Reported) Entered as Reported by: ROBERTO ROSADO on 12/05/17 1200 Last Action: Reviewed Lisinopril (Lisinopril) 20 Mg Tablet, 20 MG PO DAILY, (Reported) Entered as Reported by: GIOVANNA CURRAN on 03/27/22 0832 Last Action: Reviewed Melatonin (Melatonin) 5 Mg Tablet, 5 MG PO HS, (Reported) Entered as Reported by: KARRI CONTI on 07/03/22 1607 Last Action: Reviewed Multivitamin (Multivitamin) 1 Each Tablet, 1 EACH PO DAILY, (Reported) Entered as Reported by: KARRI CONTI on 09/15/20952 Last Action: Reviewed [place]-3/Dha/Epa/Fish Oil (Fish Oil 1,000 mg Softgel) 1,000 Mg (120 Mg-180 Mg) Capsule, 1,000 MG PO DAILY, (Reported) Entered as Reported by: KARRI CONTI on 07/03/22 1607 Last Action: Reviewed Discontinued Medications Miami 3 Polyunsat Fatty Acids (Fish Oil 1,000 mg Capsule) 1,000 Mg Cap, 1,000 MG PO BID, (Reported) Discontinued Reason: Duplicate Order Entered as Reported by: MONE LAM on 07/16/18 1006 Last Action: Discontinued Review of Systems Review of Systems Constitutional: see HPI unable to obtain due to altered state (MEGHNA TOLLIVER MD) Past Zcajcuz-Mccylu-Oacijd Hx Patient Social History Tobacco Use?: No Substance use?: No Alcohol Use?: No Pt feels they are or have been: No (MEGHNA TOLLIVER MD) Immunizations Up To Date Tetanus Booster (TDap): Unknown PED Vaccines UTD: Yes Influenza Vaccine Up-to-Date: Yes; Up-to-Date First/Initial COVID19 Vaccinat: 08-27-20 Second COVID19 Vaccination Talib: AUGUST 2020 Third COVID19 Vaccination Date: MAY 2021 (MEGHNA TOLLIVER MD) Seasonal Allergies Seasonal Allergies: No (MEGHNA TOLLIVER MD) Past Medical History Surgery/Hospitalization HX: HX SEIZURES, AND STROKE Surgeries: Yes (hernia, ) Abdominal, CABG, Coronary Stent, Orthopedic Respiratory: No Cardiac: Yes Coronary Artery Disease, Hypertension Neurological: No Stroke Genitourinary: No Renal Failure Gastrointestinal: No Musculoskeletal: No Endocrine: Yes Hypothyroidsim HEENT: No Cataract Loss of Vision: Denies Hearing Impairment: Denies Cancer: No Psychosocial: No Integumentary: No (MEGHNA TOLLIVER MD) Family Medical History Cardiovascular disease 19 FATHER 19 MOTHER (CONGESTIVE HEART FAILURE) Diabetes mellitus 19 MOTHER FH: breast cancer 19 MOTHER Myocardial infarction 19 FATHER No Pertinent Family Hx (MEGHNA TOLLIVER MD) Physical Exam Vital Signs Vital Signs - First Documented 07/01/22 07/01/22 16:00 21:00 Temp 37.4 Pulse 77 Resp 20 B/P (MAP) 170/100 (123) Pulse Ox 97 O2 Delivery Room Air (RAIN,KRISTIAN K DO) Vital Signs Capillary Refill : Less Than 3 Seconds (MEGHNA TOLLIVER MD) Height, Weight, BMI Height: 5'9.00" Weight: 200lbs. 0.0oz. [id number]; 25.00 BMI Method:Stated General Appearance: WD/WN, no apparent distress HEENT: PERRL/EOMI Respiratory: lungs clear, normal breath sounds, no respiratory distress, no a ccessory muscle use Cardiovascular: regular rate, rhythm, other (2+ radial pulses bilaterally) Gastrointestinal: normal bowel sounds, soft Extremities: no pedal edema Neurologic/Psychiatric: alert Crainal Nerves: normal hearing; No normal speech; PERRL; No abnormal eye posi tion, No abnormal gag reflex, No facial asymmetry, No facial droop Motor/Sensory: No sensory deficit; weak motor strength RUE, weak motor strength RLE, other (Patient will move all extremities to touch. He seems to have intact sensation all 4 extremities; he will squeeze my hand with both hands (right slightly less); Not following commands to stick out his tongue; will not raise legs from bed or raise arms.) Skin: normal color, warm/dry, other (abrasion right parietal scalp - no active bleeding) (MEGHNA TOLLIVER MD) Stroke NIH Stroke Scale Assessment Select: Initial Level of Consciousness: 0=Alert (0), Level of Consciousness- Questions: 2=Answer neither question (2), LOC Commands: 0=Performs both tasks (0), Gaze: Normal (0), Facial Movement (Facial Paresis): 0=Normal symmetrical mnt (0), Motor Function-Arms Right: 2=Some effort/gravity (2), Motor Function-Arms Left: 0=No drift (0), Motor Function-Legs Right: 3=No effort/gravity (3), Motor Function-Legs Left: 3=No effort/gravity (3), Sensory: 0=Normal:no loss (0), Best Language: 3=Mute (3), Total: 13 Stroke Thrombolytic Exclusion Age 18 or Over: Yes Acute intenal hemorrhage: No History of CVA: Yes Uncontrolled Coagulation Defec: No Intracranial Hemorrhage: No Severe Hypertension: No GI or Bleed: No Subarachnoid Hemorrhage: No Intracranial Neoplasm/Aneurysm: No Oral Anticoagulants: Yes Surgery or Trauma: No Puncture of Non-Compressible V: No Recent CPR: No Diabetic Hemorrhagic Retinopat: No Organ Biopsy: No Recent Obstetric Delivery: No Glucose: No Significant Hepatic Dysfunctio: No NIH Stoke Scale >22: No Bacterial Endocarditis: No Pericarditis: No Improving Symptoms: No Platelets: Yes (MEGHNA TOLLIVER MD) Focused Exam Lactate Level 07/01/22 23:58: Lactic Acid Level 1.00 (RAINKRISTIAN K DO) Lactic Acid Level Laboratory Tests Test 07/01/22 23:58 Lactic Acid Level 1.00 MMOL/L (0.50-2.00) (RAINKRISTIAN K DO) Progress/Results/Core Measures Results/Orders Lab Results Laboratory Tests Test 07/01/22 07:58 07/01/22 16:00 07/01/22 17:14 07/01/22 21:20 Range/Units Urine Color YELLOW Urine Clarity CLEAR Urine pH 6.0 5-9 Urine Specific Reva 1.025 H 1.016-1.022 Urine Protein TRACE H NEGATIVE Urine Glucose (UA) NEGATIVE NEGATIVE Urine Ketones NEGATIVE NEGATIVE Urine Nitrite NEGATIVE NEGATIVE Urine Bilirubin NEGATIVE NEGATIVE Urine Urobilinogen 0.2 < = 1.0 MG/DL Urine Leukocyte Esterase NEGATIVE NEGATIVE Urine RBC (Auto) NEGATIVE NEGATIVE Urine RBC NONE /HPF Urine WBC 0-2 /HPF Urine Crystals NONE /LPF Urine Bacteria MODERATE H /HPF Urine Casts NONE /LPF Urine Mucus NEGATIVE /LPF Urine Culture Indicated YES White Blood Count 11.4 H 4.3-11.0 10^3/uL Red Blood Count 5.25 4.30-5.52 10^6/uL Hemoglobin 15.9 13.3-17.7 g/dL Hematocrit 48 40-54 % Mean Corpuscular Volume 92 80-99 fL Mean Corpuscular Hemoglobin 30 25-34 pg Mean Corpuscular Hemoglobin Concent 33 32-36 g/dL Red Cell Distribution Width 13.1 10.0-14.5 % Platelet Count 289 130-400 10^3/uL Mean Platelet Volume 10.5 9.0-12.2 fL Immature Granulocyte % (Auto) 0 % Neutrophils (%) (Auto) 72 42-75 % Lymphocytes (%) (Auto) 14 12-44 % Monocytes (%) (Auto) 13 H 0-12 % Eosinophils (%) (Auto) 2 0-10 % Basophils (%) (Auto) 0 0-10 % Neutrophils # (Auto) 8.2 H 1.8-7.8 10^3/uL Lymphocytes # (Auto) 1.5 1.0-4.0 10^3/uL Monocytes # (Auto) 1.4 H 0.0-1.0 10^3/uL Eosinophils # (Auto) 0.2 0.0-0.3 10^3/uL Basophils # (Auto) 0.0 0.0-0.1 10^3/uL Immature Granulocyte # (Auto) 0.1 0.0-0.1 10^3/uL Prothrombin Time 13.3 12.2-14.7 SEC INR Comment 1.0 0.8-1.4 Activated Partial Thromboplast Time 28 24-35 SEC D-Dimer 0.47 0.00-0.49 UG/ML Sodium Level 141 135-145 MMOL/L Potassium Level 4.5 3.6-5.0 MMOL/L Chloride Level 110 H 98-107 MMOL/L Carbon Dioxide Level 21 21-32 MMOL/L Anion Gap 10 5-14 MMOL/L Blood Urea Nitrogen 26 H 7-18 MG/DL Creatinine 1.91 H 0.60-1.30 MG/DL Estimat Glomerular Filtration Rate 36 BUN/Creatinine Ratio 14 Glucose Level 102 70-105 MG/DL Calcium Level 9.5 8.5-10.1 MG/DL Corrected Calcium 9.6 8.5-10.1 MG/DL Total Bilirubin 0.6 0.1-1.0 MG/DL Aspartate Amino Transf (AST/SGOT) 22 5-34 U/L Alanine Aminotransferase (ALT/SGPT) 24 0-55 U/L Alkaline Phosphatase 107 40-136 U/L Troponin I < 0.028 <0.028 NG/ML Total Protein 7.1 6.4-8.2 GM/DL Albumin 3.9 3.2-4.5 GM/DL Procalcitonin 0.09 <0.10 NG/ML Glucometer 115 H 70-110 MG/DL Influenza Type A (RT-PCR) Not Detected Not Detecte Influenza Type B (RT-PCR) Not Detected Not Detecte SARS-CoV-2 RNA (RT-PCR) Detected H Not Detecte Test 07/01/22 23:58 Range/Units Lactic Acid Level 1.00 0.50-2.00 MMOL/L (KRISTIAN RODRIGEZ DO) My Orders Orders - KRISTIAN RODRIGEZ DO Ct Head Perfusion W/ Contrast (07/01/22 18:47) Iohexol Injection (Omnipaque 350 Mg/Ml 1 (07/01/22 19:00) Ns (Ivpb) (Sodium Chloride 0.9% Ivpb Bag (07/01/22 19:00) Covid 19 Inhouse Test (07/01/22 21:20) Influenza A And B By Pcr (07/01/22 21:20) Isolation Central Supply Req (07/01/22 21:20) Sequential Compression Device (07/01/22 22:26) D5 1/2 Ns W/Kcl 20 Meq/L (Dextrose 5%/0. (07/01/22 23:30) Ceftriaxone 1 Gm Pre-Mix (Rocephin 1 Gm (07/01/22 23:30) Lactic Acid Analyzer (07/01/22 23:28) Procalcitonin (Pct) (07/01/22 23:28) Blood Culture (07/01/22 23:28) Hydralazine Injection (Apresoline Inject (07/02/22 00:00) Cbc With Automated Diff (07/02/22 06:03) Levetiracetam Injection (Keppra Injectio (07/02/22 06:15) (KRISTIAN RODRIGEZ DO) Medications Given in ED Current Medications Medications Dose Ordered Sig/Lisa Route Start Time Stop Time Status Last Admin Dose Admin Ceftriaxone Sodium/Dextrose 50 ml @ 100 mls/hr ONCE ONCE IV 07/01/22 23:30 07/01/22 23:59 DC 07/02/22 00:03 100 MLS/HR Hydralazine HCl 10 mg ONCE ONCE IV 07/02/22 00:00 07/02/22 00:01 DC 07/02/22 00:04 10 MG Iohexol 100 ml ONCE ONCE IV 07/01/22 18:45 07/01/22 18:46 DC 07/01/22 19:32 45 ML Iohexol 100 ml ONCE ONCE IV 07/01/22 19:00 07/01/22 19:01 DC 07/01/22 19:33 75 ML Sodium Chloride 10 ml NEEDED PRN IV 07/01/22 18:45 07/01/22 19:32 10 ML Sodium Chloride 100 ml ONCE ONCE IV 07/01/22 18:45 07/01/22 18:46 DC 07/01/22 19:31 100 ML (KRISTIAN RODRIGEZ DO) Vital Signs/I&O 07/01/22 07/01/22 07/01/22 07/01/22 16:00 21:00 22:00 22:00 Temp 37.4 Pulse 77 90 92 Resp 20 20 17 B/P (MAP) 170/100 (123) 160/91 (114) 148/87 (107) Pulse Ox 97 93 91 94 O2 Delivery Room Air Room Air Nasal Cannula Nasal Cannula O2 Flow Rate 2.00 2.00 07/01/22 07/02/22 07/02/22 07/02/22 23:00 00:00 01:00 02:00 Pulse 85 80 82 82 Resp 17 14 9 12 B/P (MAP) 153/105 (121) 109/60 (76) 151/70 (97) 148/76 (100) Pulse Ox 93 95 96 94 O2 Delivery Nasal Cannula Nasal Cannula Nasal Cannula Nasal Cannula O2 Flow Rate 2.00 2.00 2.00 2.00 07/02/22 07/02/22 07/02/22 07/02/22 03:00 04:00 05:00 06:00 Temp 37.0 Pulse 80 81 80 74 Resp 16 16 12 21 B/P (MAP) 139/77 (97) 162/88 (112) 177/94 (121) 183/86 (118) Pulse Ox 94 93 93 97 O2 Delivery Nasal Cannula Nasal Cannula Nasal Cannula Nasal Cannula O2 Flow Rate 2.00 2.00 2.00 2.00 07/02/22 00:00 Intake Total 1270 ml Balance 1270 ml (RAIN,KRISTIAN K DO) Blood Pressure Mean: 123 Progress Progress Note : Time: 18:22 Progress Note Patient was initially a little over 2-1/2 hours out of the onset of his symptoms, was not specifically certain on the time the fall happened at home. Stroke protocol was initiated after he arrived. His initial head CT shows profound encephalomalacia. He on exam will follow commands intermittently. He still will not speak but his asked him a question and he was able to answer in an affirmative tone without actually speaking about getting a CT with IV contrast. The stroke neurologist at , Dr. Rankin, recommends a CT angio as his encephalomalacia, seizure focus do not match the right-sided weakness that he seems to be having. She recommended loading him on Keppra, giving him fluids. We will reevaluate after the CT angio. The is agreeable to contrast after risks and benefits discussed with her. His vitals remained stable. Slightly hypertensive. No respiratory distress or increased work of breathing. Reexamination at the time that I spoke with the shows that he is moving all 4 extremities. His right side seems weaker however than the left. He will follow commands. He is tracking. He is alert. NIH is inconsistent however. (MEGHNA TOLLIVER MD) Progress Note : Progress Note 1819--ASSUMED CARE OF PT AT SHIFT CHANGE. CTA OF HEAD/NECK AND PERFUSION STUDY IS PENDING AT THIS TIME. ON RETURN FROM CT, PT WAS EXAMINED AND PT WAS NOTED TO HAVE FEVER OF 99.4. SEPSIS PROTOCOL INITIATED AND COVID TESTING ORDERED. PT HAS HAD COVID VACCINE X 3, AND FLU VACCINE FOR THIS SEASON, PER . ISOLATION PRECAUTIONS DONE, AND PPE WORN. PT IS STILL NON-VERBAL, WILL NOT MOVE EITHER LEG AGAINST GRAVITY ON COMMAND, OR MOVE FEET OR TOES. IS ABLE TO SQUEEZE HANDS ON COMMAND, AND RIGHT COMMODITY SPECIALIST SEEMS TO BE SLIGHTLY WEAKER, AND HE IS NOTED TO HAVE A MILD TREMOR WITH RIGHT HAND. HE IS HAS ARMS RESTING ON HIS ABDOMEN/CHEST AREA, AND CAN RAISE HANDS UP, BUT HAS NO PROXIMAL MUSCLE STRENGTH AND IS UNABLE TO RAISE EITHER ARM UP. HE APPEARS TO HAVE LEFT SIDED NEGLECT. HE IS LEANING TO THE RIGHT. NIH SCORE IS STILL INDETERMINATE, HE IS NOT ABLE TO SPEAK. HE IS NOT ABLE TO STICK OUT HIS TONGUE AND HAS FAILED SWALLOWING TESTS. BP TRENDED UP DURING ER STAY, AND WAS GIVEN HYDRALAZINE WITH GOOD RESULTS. HE WAS GIVEN IV FLUIDS HE REMAINS NPO DUE TO FAILED SWALLOWING TESTS. SCD'S WERE PLACED KEPPRA WAS ORDERED BY DR. TOLLIVER. 0300--PT WILL STATE A COUPLE OF SINGLE WORDS, SUCH NAME. HE HAS A LITTLE MORE MOVEMENT OF BOTH ARMS FROM ELBOW DOWN--CAN RAISE HANDS AND FOREARMS OFF THE BED, BUT HAS NO PROXIMAL MOTOR STRENGTH AND CANNOT RAISE EITHER ARM ABOVE THE ELBOWS. HE STILL HAS NO MOVEMENT OF EITHER LEG OR FOOD. HE CONTINUES TO HAVE LEFT SIDED NEGLECT. 0450--PT CAN WIGGLE TOES BILATERALLY, BUT STILL HAS NO OTHER MOTOR MOVEMENT OF EITHER LEG. HIS ARM STRENGTH IS UNCHANGED. HIS VERBAL SKILLS ARE STILL LIMITED TO A COUPLE OF SINGLE WORDS, SUCH NAME. HE CONTINUES TO HAVE LEFT SIDED NEGLECT. HE IS STILL UNABLE TO STICK OUT HIS TONGUE, AND HAS FAILED SWALLOWING TESTS. HE MAKES GOOD EYE CONTACT, BUT EYE MOVEMENT DOES NOT TRACK ON COMMAND. 0530--RE-EXAMINED PT. HE HAS RESTED QUIETLY, BUT NOT REALLY SLEPT FOR MOST OF NIGHT. HIS EXAM IS UNCHANGED. HE IS STILL HAS LEFT SIDED NEGLECT. HAS GENERALIZED WEAKNESS BILATERALLY, WITH ONLY ARM MOVEMENT FROM ELBOWS DOWN, WITH SLIGHTLY MORE WEAKNESS NOTED ON THE RIGHT. HIS VERBAL SKILLS ARE STILL LIMITED TO A COUPLE OF SINGLE SYLLABLE WORDS. STILL UNABLE TO STICK HIS TONGUE OUT. PT IS NOT HAVE ANY PROBLEMS HANDLING SECRETIONS VITALS REMAIN STABLE. BP 152/77, HR IN 70'S, O2 SAT 90-92% ON ROOM AIR--UP TO 94-96% ON 2L/NC. PT CONTINUES TO HAVE NO MOVEMENT OF EITHER LEG. HIS ARM STRENGTH REMAINS THE SAME, HE HAS NO PROXIMAL MOTOR STRENGTH. IS ONLY ABLE TO RAISE HIS HANDS AND FOREARMS TO THE LEVEL OF HIS ELBOWS. HIS SPEECH IS STILL SIGNIFICANTLY IMPAIRED WITH EXPRESSIVE APHASIA. HE CAN STATE HIS NAME, WHEN ASKED HOW HE FEELS HE STATES "GOOD", WHEN ASKED IF HE HAS PAIN ANYWHERE, HE ANSWERS "NO", WHEN ASKED IF HE CAN STICK OUT HIS TONGUE, HE SAYS YES, BUT IS UNABLE TO PERFORM THIS TASK.HE STILL APPEARS TO HAVE LEFT SIDED NEGLECT, AND STILL IS ABLE TO MAKE EYE CONTACT STRAIGHT ON, BUT IS NOT ABLE TO TRACK IN ANY DIRECTION ON COMMAND. 0600--CARE TURNED OVER TO DR. BLOOM. MORNING LABS ORDERED AND KEPPRA DOSE ORDERED. (KRISTIAN RODRIGEZ DO) Initial ECG Impression Date: Jul 01, 2022 Initial ECG Impression Time: 16:47 Initial ECG Rate: 75 Initial ECG Rhythm: Normal Sinus Initial ECG Intervals PA interval 136 QRS 104 QTC 410 Initial ECG Impression: Normal (MEGHNA TOLLIVER MD) Diagnostic Imaging Diagonstic Imaging: Xray Comments [facility] [place], [place] NAME: ALAN CHURCH [facility] REC#: [id number] PT STATUS: REG ER : 1945 PHYSICIAN: MEGHNA TOLLIVER MD ADMIT DATE: 07/01/22/ER Draft Date of Exam:07/01/22 CHEST 1 VIEW, AP/PA ONLY INDICATION: Poor responsiveness, seizures, stroke. COMPARISON: 05/21/2021. TECHNIQUE: Two radiographs of the chest dated July 01, 2022. FINDINGS: Postsurgical changes of a CABG. Loop recorder is noted overlying the left chest. The cardiac silhouette is mildly enlarged. Minimal central pulmonary vascular congestion. Mild left basilar opacities are present. Low lung volumes. No definite pleural effusion. No pneumothorax. Chronic right clavicular fracture. No acute osseous abnormality. IMPRESSION: Mild cardiomegaly without significant pulmonary vascular congestion. Mild left basilar atelectasis and/or pneumonitis. Additional postsurgical and chronic findings, as above. Dictated on workstation # [id number] Dict: 07/01/22 1732 Trans: 07/01/22 1741 [facility] [id number] Interpreted by: TEVIN CAMARGO MD Electronically signed by: Diagonstic Imaging: CT Comments [facility] [place], [place] NAME: ALAN CHURCH [facility] REC#: [id number] PT STATUS: REG ER : 1945 PHYSICIAN: MEGHNA TOLLIVER MD ADMIT DATE: 07/01/22/ER Draft Date of Exam:07/01/22 CT HEAD WO-R/O STROKE PROCEDURE: CT head w/o, r/o stroke. TECHNIQUE: Multiple contiguous axial images were obtained through the brain without the use of intravenous contrast. Auto Exposure Controls were utilized during the CT exam to meet ALARA standards for radiation dose reduction. INDICATION: Neuro deficit, stroke. COMPARISON: 05/21/2021. FINDINGS: No intracranial hemorrhage. Significant focal encephalomalacia is again noted within the right frontal lobe and right parietal lobe, similar to the prior examination. Additional encephalomalacia is noted within the bilateral cerebellar hemispheres. Periventricular and subcortical white matter hypodensities are present, most consistent with minimal background chronic small vessel white matter ischemic disease. No intracranial mass, mass effect, midline shift, intracranial hydrocephalus or extra-axial fluid collection. No CT evidence of an acute ischemic infarction. Bilateral ocular lenses are absent. Mucosal thickening versus mucous retention cyst in the left maxillary sinus. The paranasal sinuses are otherwise clear. The calvarium is intact. IMPRESSION: No acute intracranial abnormality with advanced background chronic ischemic changes, as described above. Additional findings as above. Dictated on workstation # [id number] Dict: 07/01/22 1703 Trans: 07/01/22 1710 [facility] [id number] Interpreted by: TEVIN CAMARGO MD Electronically signed by: (MEGHNA TOLLIVER MD) Comments CT ANGIOGRAM OF HEAD / NECK -RECEIVED VERBAL REPORT FROM RADIOLOGIST AT 1950 -NEW OCCLUSION OF BILATERAL ANTERIOR CEREBRAL ARTERIES, WITH PENUMBRA IN BILATERAL FRONTAL LOBES -RADIOLOGIST REPORTS THAT THESE APPEAR TO BE IN THE A2 AND A3 SEGMENTS BILATERALLY CT ANGIOGRAM OF HEAD/NECK: COMPARISON: Imaging from the same date and from 05/21/2021. FINDINGS: Significant hypodensity related to encephalomalacia is again identified within the right frontal lobe and right parietal lobe as well as the high left parietal lobe, similar to older imaging. Additional encephalomalacia within the bilateral cerebellar hemispheres is again seen, similar to the prior exam. No midline shift, herniation, obstructive hydrocephalus or significant extra-axial fluid collection. No enhancing intracranial mass lesion. Background vascular calcifications. The bilateral ocular lenses are absent. The orbits are otherwise unremarkable. Small mucous retention cyst within the left maxillary sinus. The paranasal sinuses are otherwise clear. The calvarium is intact. The parapharyngeal fat is symmetric and well-maintained. The muscles of mastication are unremarkable. The salivary glands are unremarkable. No significant adenopathy within the neck. Median sternotomy. No apical pneumothorax. The thyroid gland is small in size. Retropharyngeal course of the right common carotid artery. A three-vessel aortic arch is present. Mild vascular calcifications within the right carotid bulb without hemodynamically significant stenosis. The distal right internal carotid artery is tortuous. The left A1 segment is again noted to be atretic with the dominant right A1 segment. Mild to moderate stenosis involving the cavernous portion of the left internal carotid artery. Moderate narrowing of the origin of the left vertebral artery. A dominant left vertebral artery is again identified with a diminutive right vertebral artery. Mild multifocal stenosis within the intracranial portion of the left vertebral artery. origin of the right posterior cerebral artery. 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 This appears stable from the prior examination. Right PICA appears to be supplied via the left vertebral artery. There is occlusion of the distal aspect of the bilateral anterior cerebral arteries, which appears to be new from the prior examination. Scattered osseous degenerative changes without acute osseous abnormality. 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 Some flow is noted distal to the regions of occlusion. Stable diminutive right vertebral artery with the most superior aspect of the right vertebral artery likely occluded, unchanged from the prior examination. Atretic left A1 segment with dominant right A1 segment. Mild to moderate narrowing of the cavernous portion of the left internal carotid artery, stable. Moderate narrowing involving the origin of the left vertebral artery. Additional findings as described above. The occluded distal bilateral anterior cerebral arteries is a known finding. CT HEAD PERFUSION STUDY-- FINDINGS: There is mild motion artifact. The arterial inflow and venous outflow graphs are adequate. The volume of parenchyma demonstrating cerebral blood flow of less than 30% is equal to 0 mL. The volume of parenchyma showing a Tmax greater than 6 seconds is 50 mL. Parenchyma are demonstrated Tmax greater than 8 seconds equals 14 mL, and greater than 10 seconds 9 mL. A small penumbra-like pattern is seen involving the deep white matter of the medial aspect of the bilateral frontal lobes. IMPRESSION: Penumbra-like pattern involving the deep white matter of the bilateral frontal lobes, corresponding to occlusion of the bilateral NILA. MRI brain could be of use to further evaluate. Reviewed: Reviewed by Me, Discussed w/Radiologist, Reviewed/Discussed (KRISTIAN RODRIGEZ DO) Departure Communication (Admissions) 2006--CALLED [facility], PT IS ESTABLISHED WITH A NEUROLOGIST THERE. PT'S IMAGES WERE CLOUDED TO BOTH [facility] AND [facility] 2011--SPOKE WITH DR. SMITH, NEUROLOGIST, SHE DEFERS PT TO A HIGHER LEVEL OF CARE, THAT HAS THROMBECTOMY ABILITY, WHICH THEY DO NOT HAVE AT [facility]. 2013--CALLED [facility]. TAM STROKE NEUROLOGIST. 2025--SPOKE WITH DR. RANKIN, SHE ADVISES THAT PT WAS NOT A TPA CANDIDATE DUE TO TIME FRAME, AND HAS REVIEWED CT HEAD, CTA HEAD/NECK AND CT HEAD PERFUSION SCANS. SHE ADVISES THAT HE IS NOT A CANDIDATE FOR THROMBECTOMY OR ANY OTHER TREATMENT. ONLY REHAB AND SUPPORTIVE CARE AT THIS TIME, AND DOES NOT FEEL THAT PT NEEDS TRANSFER TO AT THIS TIME, THEY HAVE NOTHING TO OFFER THE PATIENT BEYOND WHAT CAN BE DONE HERE AT THIS POINT. SHE DOES MAKE RECOMMENDATIONS FOR REPEAT T.E.E., AND POSSIBLY OTHER STUDIES TO RULE OUT MALIGNANCY POSSIBLE SOURCE OF STROKES, IF KASSI IS NORMAL, AND NO CARDIAC OR OTHER ETIOLOGY CAN BE FOUND. SHE WILL BE HAPPY TO FOLLOW UP WITH PT AN OUTPATIENT. 2039--SPOKE WITH DR. HERRERA, HOSPITALIST FOR [facility]. THERE ARE CURRENTLY NO ICU OR STEP DOWN BEDS HERE AT THIS TIME. SHE ADVISES TO BOARD PT HERE, SHE WILL SEE PT IN THE MORNING AND POSSIBLY TRANSFER TO THE FLOOR LATER IN THE MORNING IF BEDS BECOME AVAILABLE. 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 Referrals: [facility] [place]) Primary Care Physician JAMEY MA APRN (Family) Primary Care Physician MEGHNA TOLLIVER MD Jul 01, 2022 16:46 KRISTIAN RODRIGEZ DO Jul 01, 2022 22:08
[2022-07-01 16:48] LABS: CALCIUM 9.5 MG/DL (8.5-10.1); FIBRIN DEGRADATION PRODUCTS 0.47 UG/ML (0.00-0.49); PROTHROMBIN TIME PATIENT 13.3 SEC (12.2-14.7)
[2022-07-01 16:49] LABS: GLUCOSE 102 MG/DL (70-105); TOTAL PROTEIN 7.1 GM/DL (6.4-8.2)
[2022-07-01 16:50] LABS: CARBON DIOXIDE 21 MMOL/L (21-32)
[2022-07-01 16:51] LABS: BILIRUBIN,TOTAL 0.6 MG/DL (0.1-1.0)
[2022-07-01 16:52] LABS: ALKALINE PHOSPHATASE 107 U/L (40-136); CREATININE SERUM 1.91 MG/DL (0.60-1.30); GFR ESTIMATED 36
[2022-07-01 16:53] LABS: BUN/CREATININE RATIO 14
[2022-07-01 16:55] LABS: ALANINE AMINOTRANSFERASE 24 U/L (0-55)
--- NOTE | 2022-07-01 17:11 | Diagnostic Imaging Report ---
PROCEDURE: CT head w/o, r/o stroke. TECHNIQUE: Multiple contiguous axial images were obtained through the brain without the use of intravenous contrast. Auto Exposure Controls were utilized during the CT exam to meet ALARA standards for radiation dose reduction. INDICATION: Neuro deficit, stroke. COMPARISON: 05/21/2021. FINDINGS: No intracranial hemorrhage. Significant focal encephalomalacia is again noted within the right frontal lobe and right parietal lobe, similar to the prior examination. Additional encephalomalacia is noted within the bilateral cerebellar hemispheres. Periventricular and subcortical white matter hypodensities are present, most consistent with minimal background chronic small vessel white matter ischemic disease. No intracranial mass, mass effect, midline shift, intracranial hydrocephalus or extra-axial fluid collection. No CT evidence of an acute ischemic infarction. Bilateral ocular lenses are absent. Mucosal thickening versus mucous retention cyst in the left maxillary sinus. The paranasal sinuses are otherwise clear. The calvarium is intact. IMPRESSION: No acute intracranial abnormality with advanced background chronic ischemic changes, as described above. Additional findings as above. Dictated by: Dictated on workstation # [id number]
--- NOTE | 2022-07-01 17:42 | Diagnostic Imaging Report ---
INDICATION: Poor responsiveness, seizures, stroke. COMPARISON: 05/21/2021. TECHNIQUE: Two radiographs of the chest dated July 01, 2022. FINDINGS: Postsurgical changes of a CABG. Loop recorder is noted overlying the left chest. The cardiac silhouette is mildly enlarged. Minimal central pulmonary vascular congestion. Mild left basilar opacities are present. Low lung volumes. No definite pleural effusion. No pneumothorax. Chronic right clavicular fracture. No acute osseous abnormality. IMPRESSION: Mild cardiomegaly without significant pulmonary vascular congestion. Mild left basilar atelectasis and/or pneumonitis. Additional postsurgical and chronic findings, as above. Dictated by: Dictated on workstation # [id number]
[2022-07-01] MEDS ORDERED: LIDOCAINE UROJET 2% GEL 10 ML PKG ONE (17:47)
[2022-07-01 18:06] LABS: BILIRUBIN,URINE NEGATIVE (NEGATIVE); CLARITY,URINE CLEAR; COLOR,URINE YELLOW; GLUCOSE, URINE (UA) NEGATIVE (NEGATIVE); KETONES,URINE NEGATIVE (NEGATIVE); LEUKOCYTE ESTERASE ,URINE NEGATIVE (NEGATIVE); NITRITE,URINE NEGATIVE (NEGATIVE); PROTEIN,URINE TRACE (NEGATIVE)
[2022-07-01 18:14] LABS: BACTERIA,URINE MODERATE /HPF; WBC,URINE 0-2 /HPF
[2022-07-01] MEDS ORDERED: NS IV 1000 ML 1,000 ML IV SCH (18:30)
[2022-07-01] MEDS ORDERED: IOHEXOL 350 MG/ML 100 ML (OMNIPAQUE 350) VIAL IV ONE ×2 (18:45→19:00)
[2022-07-01] MEDS ORDERED: CATHETER FLUSH 10 ML SYR IV PRN (18:45)
[2022-07-01] MEDS ORDERED: NS 100 ML (IVPB) BAG IV ONE ×2 (18:45→19:00)
[2022-07-01] MEDS ORDERED: HOLD METFORMIN - RECEIVED CONTRAST 20 ML VIAL IV SCH (18:45)
--- NOTE | 2022-07-01 19:58 | Diagnostic Imaging Report ---
TECHNIQUE: CT cerebral perfusion study was performed using a dual slab technique. Post processing was performed using the RAPID software. 80 mL of Omnipaque 350 was administered. REASON FOR EXAM: Seizure. Fall. Focal neurologic deficit. Occlusion of the bilateral NILA. COMPARISON: CTA head and neck performed the same date. FINDINGS: There is mild motion artifact. The arterial inflow and venous outflow graphs are adequate. The volume of parenchyma demonstrating cerebral blood flow of less than 30% is equal to 0 mL. The volume of parenchyma showing a Tmax greater than 6 seconds is 50 mL. Parenchyma are demonstrated Tmax greater than 8 seconds equals 14 mL, and greater than 10 seconds 9 mL. A small penumbra-like pattern is seen involving the deep white matter of the medial aspect of the bilateral frontal lobes. IMPRESSION: Penumbra-like pattern involving the deep white matter of the bilateral frontal lobes, corresponding to occlusion of the bilateral NILA. MRI brain could be of use to further evaluate. Findings were discussed with Dr. Nickerson at 7:50 PM on 07/01/[address] Babcock. Dictated by: Dictated on workstation # [id number]
--- NOTE | 2022-07-01 20:09 | Diagnostic Imaging Report ---
PROCEDURE: CT angiography of the head and CT angiography of the neck with and without contrast. TECHNIQUE: Contiguous noncontrast images were obtained from the skull base through the vertex. After intravenous contrast administration, helical CT angiography of the neck was performed. Source data was reformatted into 3D MIP projections. Delayed post contrast acquisition was also obtained. Auto Exposure Controls were utilized during the CT exam to meet ALARA standards for radiation dose reduction. INDICATION: Weakness, mute, fall. COMPARISON: Imaging from the same date and from 05/21/2021. FINDINGS: Significant hypodensity related to encephalomalacia is again identified within the right frontal lobe and right parietal lobe as well as the high left parietal lobe, similar to older imaging. Additional encephalomalacia within the bilateral cerebellar hemispheres is again seen, similar to the prior exam. No midline shift, herniation, obstructive hydrocephalus or significant extra-axial fluid collection. No enhancing intracranial mass lesion. Background vascular calcifications. The bilateral ocular lenses are absent. The orbits are otherwise unremarkable. Small mucous retention cyst within the left maxillary sinus. The paranasal sinuses are otherwise clear. The calvarium is intact. The parapharyngeal fat is symmetric and well-maintained. The muscles of mastication are unremarkable. The salivary glands are unremarkable. No significant adenopathy within the neck. Median sternotomy. No apical pneumothorax. The thyroid gland is small in size. Retropharyngeal course of the right common carotid artery. A three-vessel aortic arch is present. Mild vascular calcifications within the right carotid bulb without hemodynamically significant stenosis. The distal right internal carotid artery is tortuous. The left A1 segment is again noted to be atretic with the dominant right A1 segment. Mild to moderate stenosis involving the cavernous portion of the left internal carotid artery. Moderate narrowing of the origin of the left vertebral artery. A dominant left vertebral artery is again identified with a diminutive right vertebral artery. Mild multifocal stenosis within the intracranial portion of the left vertebral artery. origin of the right posterior cerebral artery. 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 This appears stable from the prior examination. Right PICA appears to be supplied via the left vertebral artery. There is occlusion of the distal aspect of the bilateral anterior cerebral arteries, which appears to be new from the prior examination. Scattered osseous degenerative changes without acute osseous abnormality. 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 Some flow is noted distal to the regions of occlusion. Stable diminutive right vertebral artery with the most superior aspect of the right vertebral artery likely occluded, unchanged from the prior examination. Atretic left A1 segment with dominant right A1 segment. Mild to moderate narrowing of the cavernous portion of the left internal carotid artery, stable. Moderate narrowing involving the origin of the left vertebral artery. Additional findings as described above. The occluded distal bilateral anterior cerebral arteries is a known finding. Dictated by: Dictated on workstation # [id number]
[2022-07-01] MEDS ORDERED: cefTRIAXone 1 GM PRE-MIX 50 ML IV ONE (23:30)
[2022-07-02] VITALS (9 sets, daily range): BP systolic 118–152; BP diastolic 74–83
[2022-07-02] MEDS ORDERED: hydrALAZINE (APESOLINE) 20 MG/ML VIAL IV ONE
[2022-07-02] MEDS: D5 1/2 NS W/KCL 20 MEQ/L 1,000 ML IV SCH ×3 (00:14→21:30)
[2022-07-02 06:39] LABS: BASOPHILS % (AUTO) 0 % (0-10); EOSINOPHILS % (AUTO) 0 % (0-10); HEMATOCRIT 46 % (40-54); HEMOGLOBIN 15.1 g/dL (13.3-17.7); LYMPHOCYTES % (AUTO) 9 % (12-44); MEAN CORPUSCULAR HEMOGLOBIN 30 pg (25-34); MEAN CORPUSCULAR HGB CONC 33 g/dL (32-36); MEAN CORPUSCULAR VOLUME 92 fL (80-99); MEAN PLATELET VOLUME 10.2 fL (9.0-12.2); MONOCYTES # (AUTO) 1.4 10^3/uL (0.0-1.0); MONOCYTES % (AUTO) 12 % (0-12); NEUTROPHILS % (AUTO) 78 % (42-75); PLATELET COUNT 249 10^3/uL (130-400); WHITE BLOOD COUNT 11.4 10^3/uL (4.3-11.0)
[2022-07-02 07:01] LABS: ALBUMIN 3.6 GM/DL (3.2-4.5); BILIRUBIN,TOTAL 0.6 MG/DL (0.1-1.0); CALCIUM 9.1 MG/DL (8.5-10.1); CREATININE SERUM 1.8 MG/DL (0.60-1.30); POTASSIUM 4.4 MMOL/L (3.6-5.0); TOTAL PROTEIN 6.6 GM/DL (6.4-8.2)
--- NOTE | 2022-07-02 10:19 | History & Physical ---
HPI History of Present Illness: Pt answers yes and no to questions, and is able to state his whole name as well as answering in one to a few word answers for questions. He states the day is Saturday, the date is Jun 22, the year 2022. When asked if he knows why he is in the hospital he simply says "no". When asked if he knows where he is, he says "no". When asked what he last remembers, he does not answer at all. When asked if he remembers anything from yesterday he says "no". When asked if he will answer no to all questions, he says "probably". Per ER notes: he presented by ambulance and stated he had an episode approximately 2 hours prior whens he heard a crash and found him lying on the floor and unresponsive. She stated he had not been ill recently and had been normal earlier in the day. He has history of stroke, and reports he retained full strength and coordination after that. Does have seizures, but have been rare like once per year. Source: patient Exam Limitations: clinical condition Date seen by provider: Jul 02, 2022 Time Seen by Provider: 10:35 Attending Physician [facility] PCP Admitting Physician: Kasie Hinton MD Attending Physician: Kasie Hinton MD Consult Date of Admission Jul 02, 2022 at 08:52 Home Medications Home Medications Reviewed patient Home Medication Reconciliation performed by pharmacy medication reconciliations studio technician and/or nursing. Patients Allergies have been reviewed. Allergies Coded Allergies: No Known Drug Allergies (Unverified , 03/27/22) [id number] Hx Patient Social History 2nd Hand Smoke Exposure: No Recent Hopitalizations: No Alcohol Use?: No Have you traveled recently?: No Immunizations Up To Date Tetanus Booster (TDap): Unknown Influenza Vaccine Up-to-Date: Yes; Up-to-Date First/Initial COVID19 Vaccinat: 08-27-20 Second COVID19 Vaccination Talib: AUGUST 2020 Third COVID19 Vaccination Date: MAY 2021 Past Medical History PMHx: (per chart review) CVA 2019 HTN Hypothyroidism CKD CAD s/p bypass HLD Gout History of stroke with left sided weakness SurgHx: CABG Cardiac stenting hernia repair Cataract removal Bicep repair Family Medical History Family History: Cardiovascular disease 19 FATHER 19 MOTHER (CONGESTIVE HEART FAILURE) Diabetes mellitus 19 MOTHER FH: breast cancer 19 MOTHER Myocardial infarction 19 FATHER Review of Systems ([facility]) Constitutional: other (unable to obtain due to clinical condition) Reviewed Test Results Reviewed Test Results Lab Laboratory Tests Test 07/01/22 07:58 07/01/22 16:00 07/01/22 17:14 07/01/22 21:20 Range/Units Urine Color YELLOW Urine Clarity CLEAR Urine pH 6.0 5-9 Urine Specific [place] 1.025 H 1.016-1.022 Urine Protein TRACE H NEGATIVE Urine Glucose (UA) NEGATIVE NEGATIVE Urine Ketones NEGATIVE NEGATIVE Urine Nitrite NEGATIVE NEGATIVE Urine Bilirubin NEGATIVE NEGATIVE Urine Urobilinogen 0.2 < = 1.0 MG/DL Urine Leukocyte Esterase NEGATIVE NEGATIVE Urine RBC (Auto) NEGATIVE NEGATIVE Urine RBC NONE /HPF Urine WBC 0-2 /HPF Urine Crystals NONE /LPF Urine Bacteria MODERATE H /HPF Urine Casts NONE /LPF Urine Mucus NEGATIVE /LPF Urine Culture Indicated YES White Blood Count 11.4 H 4.3-11.0 10^3/uL Red Blood Count 5.25 4.30-5.52 10^6/uL Hemoglobin 15.9 13.3-17.7 g/dL Hematocrit 48 40-54 % Mean Corpuscular Volume 92 80-99 fL Mean Corpuscular Hemoglobin 30 25-34 pg Mean Corpuscular Hemoglobin Concent 33 32-36 g/dL Red Cell Distribution Width 13.1 10.0-14.5 % Platelet Count 289 130-400 10^3/uL Mean Platelet Volume 10.5 9.0-12.2 fL Immature Granulocyte % (Auto) 0 % Neutrophils (%) (Auto) 72 42-75 % Lymphocytes (%) (Auto) 14 12-44 % Monocytes (%) (Auto) 13 H 0-12 % Eosinophils (%) (Auto) 2 0-10 % Basophils (%) (Auto) 0 0-10 % Neutrophils # (Auto) 8.2 H 1.8-7.8 10^3/uL Lymphocytes # (Auto) 1.5 1.0-4.0 10^3/uL Monocytes # (Auto) 1.4 H 0.0-1.0 10^3/uL Eosinophils # (Auto) 0.2 0.0-0.3 10^3/uL Basophils # (Auto) 0.0 0.0-0.1 10^3/uL Immature Granulocyte # (Auto) 0.1 0.0-0.1 10^3/uL Prothrombin Time 13.3 12.2-14.7 SEC INR Comment 1.0 0.8-1.4 Activated Partial Thromboplast Time 28 24-35 SEC D-Dimer 0.47 0.00-0.49 UG/ML Sodium Level 141 135-145 MMOL/L Potassium Level 4.5 3.6-5.0 MMOL/L Chloride Level 110 H 98-107 MMOL/L Carbon Dioxide Level 21 21-32 MMOL/L Anion Gap 10 5-14 MMOL/L Blood Urea Nitrogen 26 H 7-18 MG/DL Creatinine 1.91 H 0.60-1.30 MG/DL Estimat Glomerular Filtration Rate 36 BUN/Creatinine Ratio 14 Glucose Level 102 70-105 MG/DL Calcium Level 9.5 8.5-10.1 MG/DL Corrected Calcium 9.6 8.5-10.1 MG/DL Total Bilirubin 0.6 0.1-1.0 MG/DL Aspartate Amino Transf (AST/SGOT) 22 5-34 U/L Alanine Aminotransferase (ALT/SGPT) 24 0-55 U/L Alkaline Phosphatase 107 40-136 U/L Troponin I < 0.028 <0.028 NG/ML Total Protein 7.1 6.4-8.2 GM/DL Albumin 3.9 3.2-4.5 GM/DL Procalcitonin 0.09 <0.10 NG/ML Glucometer 115 H 70-110 MG/DL Influenza Type A (RT-PCR) Not Detected Not Detecte Influenza Type B (RT-PCR) Not Detected Not Detecte SARS-CoV-2 RNA (RT-PCR) Detected H Not Detecte Test 07/01/22 23:58 07/02/22 06:30 Range/Units Lactic Acid Level 1.00 0.50-2.00 MMOL/L White Blood Count 11.4 H 4.3-11.0 10^3/uL Red Blood Count 4.98 4.30-5.52 10^6/uL Hemoglobin 15.1 13.3-17.7 g/dL Hematocrit 46 40-54 % Mean Corpuscular Volume 92 80-99 fL Mean Corpuscular Hemoglobin 30 25-34 pg Mean Corpuscular Hemoglobin Concent 33 32-36 g/dL Red Cell Distribution Width 13.2 10.0-14.5 % Platelet Count 249 130-400 10^3/uL Mean Platelet Volume 10.2 9.0-12.2 fL Immature Granulocyte % (Auto) 0 % Neutrophils (%) (Auto) 78 H 42-75 % Lymphocytes (%) (Auto) 9 L 12-44 % Monocytes (%) (Auto) 12 0-12 % Eosinophils (%) (Auto) 0 0-10 % Basophils (%) (Auto) 0 0-10 % Neutrophils # (Auto) 9.0 H 1.8-7.8 10^3/uL Lymphocytes # (Auto) 1.0 1.0-4.0 10^3/uL Monocytes # (Auto) 1.4 H 0.0-1.0 10^3/uL Eosinophils # (Auto) 0.0 0.0-0.3 10^3/uL Basophils # (Auto) 0.0 0.0-0.1 10^3/uL Immature Granulocyte # (Auto) 0.0 0.0-0.1 10^3/uL Sodium Level 141 135-145 MMOL/L Potassium Level 4.4 3.6-5.0 MMOL/L Chloride Level 110 H 98-107 MMOL/L Carbon Dioxide Level 23 21-32 MMOL/L Anion Gap 8 5-14 MMOL/L Blood Urea Nitrogen 23 H 7-18 MG/DL Creatinine 1.80 H 0.60-1.30 MG/DL Estimat Glomerular Filtration Rate 39 BUN/Creatinine Ratio 13 Glucose Level 133 H 70-105 MG/DL Calcium Level 9.1 8.5-10.1 MG/DL Corrected Calcium 9.4 8.5-10.1 MG/DL Total Bilirubin 0.6 0.1-1.0 MG/DL Aspartate Amino Transf (AST/SGOT) 16 5-34 U/L Alanine Aminotransferase (ALT/SGPT) 17 0-55 U/L Alkaline Phosphatase 98 40-136 U/L Total Protein 6.6 6.4-8.2 GM/DL Albumin 3.6 3.2-4.5 GM/DL Triglycerides Level 99 <150 MG/DL Cholesterol Level 153 < 200 MG/DL LDL Cholesterol Direct 91 1-129 MG/DL VLDL Cholesterol 20 5-40 MG/DL HDL Cholesterol 39 L 40-60 MG/DL Radiology 07/01/22 CXR: FINDINGS: Postsurgical changes of a CABG. Loop recorder is noted overlying the left chest. The cardiac silhouette is mildly enlarged. Minimal central pulmonary vascular congestion. Mild left basilar opacities are present. Low lung volumes. No definite pleural effusion. No pneumothorax. Chronic right clavicular fracture. No acute osseous abnormality. IMPRESSION: Mild cardiomegaly without significant pulmonary vascular congestion. Mild left basilar atelectasis and/or pneumonitis. Additional postsurgical and chronic findings, as above. 07/01/22 CTA head/neck: IMPRESSION: New occlusion within the distal/superior aspects of the bilateral anterior cerebral arteries. Some flow is noted distal to the regions of occlusion. Stable diminutive right vertebral artery with the most superior aspect of the right vertebral artery likely occluded, unchanged from the prior examination. Atretic left A1 segment with dominant right A1 segment. Mild to moderate narrowing of the cavernous portion of the left internal carotid artery, stable. Moderate narrowing involving the origin of the left vertebral artery. The occluded distal bilateral anterior cerebral arteries is a known finding. 07/01/22 CT head: IMPRESSION: No acute intracranial abnormality with advanced background chronic ischemic changes 07/01/22 CT head perfusion: IMPRESSION: Penumbra-like pattern involving the deep white matter of the bilateral frontal lobes, corresponding to occlusion of the bilateral NILA. MRI brain could be of use to further evaluate. Physical Exam-([facility]) Physical Exam Vital Signs VS - Last 72 Hours, by Label 07/01/22 07/01/22 07/01/22 07/01/22 16:00 21:00 22:00 22:00 Temp 37.4 Pulse 77 90 92 Resp 20 20 17 B/P (MAP) 170/100 (123) 160/91 (114) 148/87 (107) Pulse Ox 97 93 91 94 O2 Delivery Room Air Room Air Nasal Cannula Nasal Cannula O2 Flow Rate 2.00 2.00 07/01/22 07/02/22 07/02/22 07/02/22 23:00 00:00 01:00 02:00 Pulse 85 80 82 82 Resp 17 14 9 12 B/P (MAP) 153/105 (121) 109/60 (76) 151/70 (97) 148/76 (100) Pulse Ox 93 95 96 94 O2 Delivery Nasal Cannula Nasal Cannula Nasal Cannula Nasal Cannula O2 Flow Rate 2.00 2.00 2.00 2.00 07/02/22 07/02/22 07/02/22 07/02/22 03:00 04:00 05:00 06:00 Temp 37.0 Pulse 80 81 80 74 Resp 16 16 12 21 B/P (MAP) 139/77 (97) 162/88 (112) 177/94 (121) 183/86 (118) Pulse Ox 94 93 93 97 O2 Delivery Nasal Cannula Nasal Cannula Nasal Cannula Nasal Cannula O2 Flow Rate 2.00 2.00 2.00 2.00 07/02/22 07/02/22 07/02/22 07/02/22 09:38 10:15 10:29 10:43 Temp 37.2 Pulse 76 75 75 75 Resp 18 18 B/P (MAP) 162/86 122/80 (94) 146/75 (98) Pulse Ox 96 O2 Delivery Nasal Cannula Nasal Cannula O2 Flow Rate 2.00 2.00 07/02/22 07/02/22 07/02/22 07/02/22 10:45 11:00 11:15 12:00 Temp 37.2 Pulse 74 68 69 72 Resp 36 36 40 14 B/P (MAP) 132/74 (93) 118/74 (89) 150/83 (105) 139/82 (101) Pulse Ox 96 96 97 97 O2 Delivery Nasal Cannula Nasal Cannula Nasal Cannula Nasal Cannula O2 Flow Rate 2.00 2.00 2.00 2.00 07/02/22 07/02/22 13:18 16:00 Temp 37.1 Pulse 73 67 Resp 18 B/P (MAP) 136/76 (96) Pulse Ox 96 O2 Delivery Nasal Cannula O2 Flow Rate 3.00 Capillary Refill : Less Than 3 Seconds General Appearance: no apparent distress HEENT: PERRL/EOMI Neck: No carotid bruit Respiratory: lungs clear Cardiovascular: regular rate, rhythm, no murmur Gastrointestinal: normal bowel sounds, non tender, soft Extremities: no pedal edema Neurologic/Psychiatric: vat tender II-XII nml as tested (lifts shoulders only minimally, otherwise normal exam), alert, abnormal cerebellar tests (normal finger to nose with right hand, but when asked to use left hand, he touches left finger to right finger in spite of redirection a few times); No facial droop; motor weakness (when asked to raise arms, he does not respond or move, but when arms are lifted passively, he holds them above head and lowers slowly with control, lifts legs minimally off of bed, able to move toes of both feet when instructed), other (oriented to self only) Skin: warm/dry Assessment/Plan Assessment/Plan Admission Status: Inpatient Order (span 2 midnights) Reason for Inpatient Admission: Stroke with serious morbidity Assessment & Plan Per ER notes- The stroke neurologist at , Dr. Romero, recommended a CT angio as his encephalomalacia, seizure focus did not match the right-sided weakness that he seemed to have on presentation. He was loaded with Keppra. After CTA was done, Dr. Nickerson in ER here called [facility] and spoke with Neurologist there who recommended higher level of care with thombectomy ability. stroke neurologist Dr. Romero called again, advised patient not a TPA candidate due to time frame, reviewed CT head, CTA head/neck and CT head perfusion scan and reported he was not candidate for thrombectomy or other treatment, need to proceed with rehab and supportive care, no benefit from transfer to . Did recommend repeat KASSI. 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 Romero, recommended a CT angio as his encephalomalacia, seizure focus did not match the right-sided weakness that he seemed to have on presentation. He was loaded with Keppra. After CTA was done, Dr. Nickerson in ER here called [facility] and spoke with Neurologist there who recommended higher level of care with thombectomy ability. stroke neurologist Dr. Romero called again, advised patient not a TPA candidate due to time frame, reviewed CT head, CTA head/neck and CT head perfusion scan and reported he was not candidate for thrombectomy or other treatment, need to proceed with rehab and supportive care, no benefit from transfer to . Did recommend repeat KASSI. -Antiplatelet, PT, OT, ST, Cardiology consults (2) Seizures Status: Chronic Assessment & Plan: Loaded with Keppra in ER, was on at home, will continue. (3) COVID-19 virus infection Status: Acute Assessment & Plan: No clear respiratory issues, monitor closely. Uncertain onset given no clear symptoms. (4) CKD (chronic kidney disease) Status: Chronic (5) CAD (coronary artery disease) Status: Chronic (6) HTN (hypertension) Status: Chronic Assessment & Plan: Resume home amlodipine, will hold lisinopril as BP normal and creatinine possibly elevated from baseline. (7) Hypothyroidism (8) Bacteriuria Status: Acute Assessment & Plan: Possible UTI, received one dose of ceftriaxone, follow up culture (9) DVT prophylaxis Status: Acute Assessment & Plan: Enoxaparin KASIE HINTON MD Jul 02, 2022 10:19
--- NOTE | 2022-07-02 13:38 | Physical Therapy Evaluation ---
PT Evaluation-General Medical Diagnosis Admission Date Jul 02, 2022 at 08:52 Medical Diagnosis: possible CVA, covid 19, UTI Onset Date: Jul 02, 2022 Therapy Diagnosis Therapy Diagnosis: impaired mobility, balance Height/Weight Height (Feet): 5 Height (Inches): 9.00 Weight (Pounds): 200 Weight (Ounces): 0.0 Precautions Precautions/Isolations: Droplet Isolation, Fall Prevention Referral Physician: Jamaal Reason for Referral: Evaluation/Treatment Medical History Pertinent Medical History: CABG, CAD, HTN Additional Medical History Past Medical History CVA 2019 HTN Hypothyroidism CKD Social History Current Living Status: Spouse Entry Into Home: Ramp Prior Prior Level of Function SCALE: Activities may be completed with or without assistive devices. 2-Vvncrstukk-swtjvoa completes the activity by him/herself with no assistance from a helper. 5-Set-up or Clean-up Assistance-helper sets up or cleans up; patient completes activity. [place] assists only prior to or following the activity. 4-Supervision or Touching Assistance-helper provides verbal cues and/or touching/steadying and/or contact guard assistance as patient completes activity. Assistance may be provided throughout the activity or intermittently. 3-Partial/Moderate Assistance-helper does LESS THAN HALF the effort. [place] lifts, holds or supports trunk or limbs, but provides less than half the effort. 2-Substantial/Maximal Assistance-helper does MORE THAN HALF the effort. [place] lifts or holds trunk or limbs and provides more than half the effort. 9-Wrrashknt-fcuryz does ALL the effort. Patient does none of the effort to complete the activity. Or, the assistance of 2 or more helpers is required for the patient to complete the activity. If activity was not attempted, code reason: 7-Patient Refused. 9-Not Applicable-not attempted and the patient did not perform the activity before the current illness, exacerbation or injury. 10-Not Attempted due to Environmental Limitations-(lack of equipment, weather restraints, etc.). 88-Not Attempted due to Medical Conditions or Safety Concerns. Bed Mobility: 6 Transfers (B,C,W/C): 6 Gait: 6 Stairs: 6 Indoor Mobility (Ambulation): Independent Stairs: Independent PT Evaluation-Current Subjective Patient in bed pre tx, agrees to PT, has no complaints of pain, can answer yes/no questions, is in room and can elaborate with info. Pt/Family Goals none stated Objective Patient Orientation: Person, Confused, Unable to Assess ROM/Strength ROM Lower Extremities WNL, patient is resistant to movement but doesn't appear to have any restrictions Strength Lower Extremities unable to test, patient will not follow directions Neuromuscular (Tone, Coordination, Reflexes) negative clonus and babinski tests bilaterally, unable to test vision Sensory Sensation Right Lower Extremit: Intact Sensation Left Lower Extremity: Impaired Sensation Lower Extremities patient states he has some numbness in left foot Transfers Roll Left to Right (QC): 1 Sit to Lying (QC): 1 Lying to Sitting/Side of Bed(Q: 1 Sit to Stand (QC): 2 Dependent (assist of 2) for supine to sit, patient is retropulsive in sitting, cannot lean forward. Patient is not able to move legs when asked, max assist for sit to stand and is very retropulsive, asked to try to sidestep toward the head of the bed and he doesn't seem to understand. Sit back down and then assist of two to lay back down. Balance Sitting Static: Poor Sitting Dynamic: Poor Standing Static: Poor Standing Dynamic: Poor Assessment/Needs Patient in bed post tx with nurse call, phone, tray, all needs met, bed alarm on. Patient seems very confused, has trouble following directions and cannot/will not move legs when asked. Rehab Potential: Guarded PT Cloth Shader Goals Cloth Shader Goals PT [facility] Goals Time Frame: Jul 09, 2022 Roll Left & Right (QC): 3 Sit to Lying (QC): 3 Lying-Sitting on Side/Bed(QC): 3 Sit to Stand (QC): 3 Chair/Egn-ws-Ttjdq Xfer(QC): 3 Walk 10 feet (QC): 3 PT Plan Problem List Problem List: Activity Tolerance, Functional Strength, Safety, Balance, Gait, Transfer, Bed Mobility, ROM Treatment/Plan Treatment Plan: Continue Plan of Care Treatment Plan: Bed Mobility, Education, Functional Activity Zeb, Functional Strength, Gait, Safety, Therapeutic Exercise, Transfers Treatment Duration: Jul 09, 2022 Frequency: 6 times per week Estimated Hrs Per Day: .25 hour per day Patient and/or Family Agrees t: Yes Safety Risks/Education Patient Education: Correct Positioning, Safety Issues Teaching Recipient: Patient Teaching Methods: Demonstration, Discussion Response to Teaching: Reinforcement Needed Discharge Recommendations Plan Patient will perform bed mobility and transfer training, balance and endurance training, functional strengthening, stair training, gait training, and education, to improve functional mobility and independence at home. Therapy Discharge Recommendati: Other, See Comments (possible rehab), Home & Family, Post Acute PT Time Time In: 1310 Time Out: 1325 DATE: Jul 02, 2022 Total Billed Treatment Time: 15 Total Billed Treatment 1 visit MUKUND 15' CT REBOLLEDO PT Jul 02, 2022 13:38
--- NOTE | 2022-07-02 13:40 | Occupational Therapy Eval ---
OT Evaluation-General/PLF Medical Diagnosis Admission Date Jul 02, 2022 at 08:52 Medical Diagnosis: Covid 19, UTI Onset Date: Jul 02, 2022 Therapy Diagnosis Therapy Diagnosis: reduced adl status Height/Weight Height (Feet): 5 Height (Inches): 9.00 Weight (Pounds): 200 Weight (Ounces): 0.0 Precautions Precautions/Isolations: Droplet Isolation, Seizure, Fall Prevention Safety Interventions: Bed Exit Alarm, Reorient-Attempt Referral Referral Reason: Evaluation/Treatment Medical History Pertinent Medical History: CABG, CAD, HTN Current History Pt presented to hospital s/p fall.Pt positive for Covid 19. Patient lives with his in a single story home. He was indep with adls and his manages all iadls. Pt was not using any AD at baseline. Reviewed History: Yes Social History Home: Single Level Current Living Status: Spouse ADL-Prior Level of Function SCALE: Activities may be completed with or without assistive devices. 7-Ekgpiacbew-eajjtrz completes the activity by him/herself with no assistance from a helper. 5-Set-up or Clean-up Assistance-helper sets up or cleans up; patient completes activity. [place] assists only prior to or following the activity. 4-Supervision or Touching Assistance-helper provides verbal cues and/or touching/steadying and/or contact guard assistance as patient completes activity. Assistance may be provided throughout the activity or intermittently. 3-Partial/Moderate Assistance-helper does LESS THAN HALF the effort. [place] lifts, holds or supports trunk or limbs, but provides less than half the effort. 2-Substantial/Maximal Assistance-helper does MORE THAN HALF the effort. [place] lifts or holds trunk or limbs and provides more than half the effort. 3-Fcifvqegm-borlat does ALL the effort. Patient does none of the effort to complete the activity. Or, the assistance of 2 or more helpers is required for the patient to complete the activity. If activity was not attempted, code reason: 7-Patient Refused. 9-Not Applicable-not attempted and the patient did not perform the activity before the current illness, exacerbation or injury. 10-Not Attempted due to Environmental Limitations-(lack of equipment, weather restraints, etc.). 88-Not Attempted due to Medical Conditions or Safety Concerns. Self Care: Independent Functional Cognition: Unknown Drive Self: No OT Current Status Subjective Pt denies pain, slow processing speed. Requires simplification at times. Appearance Pt returned to supine in bed, all needs within reach, RN notified. Mental Status/Objective Patient Orientation: Person Current Hearing Aids: No Dentures/Partials: No Hand Dominance: Right Upper Extremity ROM Tone present in bilateral UE's. Active shoulder flexion ~80 degrees, AAROM ~150 degrees Pt unable to open hand on commands but does show ability to open when grasping for bedrail. ADL-Treatment Upper Body Dressing (QC): 1 Lower Body Dressing (QC): 1 On/Off Footwear (QC): 1 Toileting Hygiene (QC): 1 Supine<>sit: max-dependent. Pt unable to sustain sitting balance, retropulsive. Pt unaware of positioning and does not attempt to correct. Max a to maintain sitting balance as 2nd person donned footwear. Pt is dependent to stand, again retropulsive in standing. Thus, pt would require at least 2 people to complete any standing functional tasks such as dressing or bathing. Pt often reports that he is doing something (or trying to do something) but no voluntary movement is observed. Education OT Patient Education: Correct positioning, Modified ADL techniques, Purpose of tx/functional activities, Reviewed precautions, Safety issues, Transfer techniques Teaching Recipient: Patient, Family Teaching Methods: Demonstration, Discussion Response to Teaching: Unable to Return Demonstration, Reinforcement Needed OT Pecan Gatherer Goals Long-Term Goals Time Frame: Jul 23, 2022 Eating (QC): 4 Oral Hygiene (QC): 4 Toileting Hygiene (QC): 3 Shower/Bathe Self (QC): 3 Upper Body Dressing (QC): 3 Lower Body Dressing (QC): 3 On/Off Footwear (QC): 3 Additional Goals: 1-Demonstrate ADL Tasks, 2-Verbalize Understanding, 3- ImproveStrength/Zeb 1=Demonstrate adherence to instructed precautions during ADL tasks. 2=Patient will verbalize/demonstrate understanding of assistive d evices/modifications for ADL. 3=Patient will improve strength/tolerance for activity to enable patient to perform ADL's. OT Education/Plan Problem List/Assessment Assessment: Decreased Activ Tolerance, Decreased Safety Aware, Decreased UE Strength, Dependent Transfers, Impaired Bed Mobility, Impaired Cognition, Impaired Coordination, Impaired Funct Balance, Impaired Self-Care Skills, Restricted Funct UE ROM Discharge Recommendations Plan/Recommendations: Continue POC Therapy Discharge Recommendati: Post Acute OT Treatment Plan/Plan of Care Treatment,Training & Education: Yes Patient would benefit from OT for education, treatment and training to promote independence in ADL's, mobility, safety and/or upper extremity function for ADL's. Plan of Care: ADL Retraining, Cognitive Retraining, Functional Mobility, Group Exercise/Act as Ind, UE Funct Exercise/Act, UE Neuromus Re-Ed/Coord, W/C Management Training Treatment Duration: Jul 23, 2022 Frequency: 3 times per week (3-5x/week ) Estimated Hrs Per Day: .25 hour per day Time Start Time: 13:10 Stop Time: 13:26 DATE: Jul 02, 2022 Total Time Billed (hr/min): 16 Billed Treatment Time 1 visit Alba Aguayo OT Jul 02, 2022 13:40
--- NOTE | 2022-07-02 14:38 | ST Dysphagia Evaluation ---
Speech Evaluation-General Medical Diagnosis Covid 19, UTI Onset Date: Jul 02, 2022 Therapy Diagnosis Therapy Diagnosis: Intact Oropharyngeal Swallow Function Precautions Precautions: Fall Precautions/Isolations: Droplet Isolation, Fall Prevention Referral Referring Physician: Dr. Hinton Reason for Referral: Evaluation/Treatment Medical History Pertinent Medical History: CABG, CAD, HTN Current History The patient is a 77 year-old male with a past medical history of CABG, CAD, and HTN, who presented to the hospital following a fall. Reviewed History: Yes Social History Current Living Status: Spouse Speech PLF/Current-Dysphagia Prior Level of Function The patient was unable to report information regarding his prior level of function or P.O. intake to the clinician due to suspected confusion. Subjective The patient was lying in bed, awake and alert, upon entrance to his room by the clinician. The patient greeted the clinician appropriately and was agreeable to participation in the clinical bedside swallowing evaluation. The patient was seated upright in bed for safety. Cognitive Status Patient Orientation: Confused Oral Motor Skills Dentition: Natural Ability to Follow Directions: Fair Oral Expression Ability: Moderate Impairment Voice Voice Phonatory-Based Quality: Normal Voice Pitch: Normal Voice Loudness: Normal Face Facial Symmetry: Symmetrical Oral-Facial Assessment Oral-Facial Dentition: Normal Labial Seal Description: Normal Smile: Normal Lingual Protrusion: Normal Lingual ROM: Normal Lingual Strength: Normal Dysphagia Evaluation Consistencies Presented: Regular, Thin Liquid, Pureed The patient did not display oral impairments to the swallowing function. The patient did not display pharyngeal impairments to the swallowing function. Overt s/s of suspected aspiration were not present with thin liquids via teaspoon or straw, puree, or solid consistencies tested. Dietary Recommendations: Regular Liquid Recommendations: Thin Recommendations: - Regular consistency diet with thin liquids, as tolerated. - Fully upright and alert for P.O. intake. - Small, single bites and sips. - Monitor for s/s of suspected aspiration with P.O. intake. If demonstrated, contact speech pathology. The results and recommendations were provided to the patient immediately following the study. The patient's RN will be contacted from the clinician at this time. Dysphagia Evaluation Summary The patient demonstrated an intact oropharyngeal swallowing function. Speech-Plan Treatment Plan Speech Therapy Treatment Plan: Discontinue ST Treatment Duration: Jul 02, 2022 Frequency: 1 time per week Estimated Hrs Per Day: .25 hour per day Rehab Potential: Guarded Safety Risks/Education Teaching Recipient: Patient Teaching Methods: Discussion Response to Teaching: Reinforcement Needed Education Topics Provided: Results, Recommendations, Plan of Care Time Speech Therapy Time In: 14:15 Speech Therapy Time Out: 14:30 DATE: Jul 02, 2022 Total Billed Time: 15 Billed Treatment Time 1XIN ELIZABETH ST Jul 02, 2022 14:38
[2022-07-02] MEDS ORDERED: ENOXAPARIN 40 MG/0.4 ML (LOVENOX) SYR SQ SCH (18:00)
[2022-07-02] MEDS ORDERED: ASPIRIN 81 MG CHEW (CHILDREN'S ASA) ONE (19:32)
[2022-07-02] MEDS ORDERED: ENOXAPARIN 40 MG/0.4 ML (LOVENOX) SYR ONE (19:35)
[2022-07-02] MEDS ORDERED: CLOPIDOGREL 75 MG (PLAVIX) TABLET ONE (19:35)
[2022-07-02] MEDS: CLOPIDOGREL 75 MG (PLAVIX) TABLET PO SCH (21:29)
[2022-07-02] MEDS: ASPIRIN 81 MG CHEW (CHILDREN'S ASA) PO SCH (21:29)
[2022-07-02] MEDS: ENOXAPARIN 40 MG/0.4 ML (LOVENOX) SYR SQ SCH (22:14)
[2022-07-03] VITALS (7 sets, daily range): BP systolic 111–163; BP diastolic 65–100
[2022-07-03 04:58] LABS: HEMATOCRIT 44 % (40-54); HEMOGLOBIN 14.1 g/dL (13.3-17.7); MEAN CORPUSCULAR HEMOGLOBIN 30 pg (25-34); MEAN CORPUSCULAR HGB CONC 32 g/dL (32-36); MEAN CORPUSCULAR VOLUME 92 fL (80-99); MEAN PLATELET VOLUME 10.3 fL (9.0-12.2); PLATELET COUNT 226 10^3/uL (130-400); WHITE BLOOD COUNT 9.2 10^3/uL (4.3-11.0)
[2022-07-03 05:13] LABS: ALBUMIN 3.3 GM/DL (3.2-4.5); POTASSIUM 4.4 MMOL/L (3.6-5.0)
[2022-07-03 05:17] LABS: BILIRUBIN,TOTAL 0.9 MG/DL (0.1-1.0)
[2022-07-03 05:19] LABS: CREATININE SERUM 1.74 MG/DL (0.60-1.30)
[2022-07-03] MEDS: D5 1/2 NS W/KCL 20 MEQ/L 1,000 ML IV SCH (05:38)
[2022-07-03] MEDS: ASPIRIN 81 MG CHEW (CHILDREN'S ASA) PO SCH (08:15)
[2022-07-03] MEDS: LEVOTHYROXINE 112 MCG (LEVOTHROID) TAB PO SCH (08:15)
[2022-07-03] MEDS: CLOPIDOGREL 75 MG (PLAVIX) TABLET PO SCH (08:15)
[2022-07-03] MEDS: amLODIPine 10 MG (NORVASC) TAB PO SCH (08:16)
--- NOTE | 2022-07-03 10:49 | Occupational Ther Daily Note ---
OT Current Status-Daily Note Subjective Pt alert, lying in bed. Pt agrees to therapy. Oriented x4, though confusion noted with following directions. Mental Status/Objective Patient Orientation: Person, Place, Time, Situation Attachments: IV, Telemetry ADL-Treatment After setup, pt able to complete oral care using R UE. Pt perseverated on brushing teeth until COOK stopped pt. Pt is able to lift L UE, flex/ext fingers and wrist. Assist x2 to sit EOB, with mod A due to pt leaning towards L side. Max A x2 for sit to stand then pt able to stand on B LE with min A x2 for safety. Max A x2 for pt to side step up towards HOB. Max A x2 for EOB to supi ne then with FOB elevated, pt able to reach to HOB with assistance and pull self up in bed with vc. After session, pt lying in bed with call light/phone in reach. Safety measures in place. All needs met in room. Therapy Code Descriptions/Definitions Functional Worth Measure: 0=Not Assessed/NA 4=Minimal Assistance 1=Total Assistance 5=Supervision or Setup 2=Maximal Assistance 6=Modified Worth 3=Moderate Assistance 7=Complete IndependenceSCALE: Activities may be completed with or without assistive devices. 7-Qdespbndlf-gdavyeq completes the activity by him/herself with no assistance from a helper. 5-Set-up or Clean-up Assistance-helper sets up or cleans up; patient completes activity. [place] assists only prior to or following the activity. 4-Supervision or Touching Assistance-helper provides verbal cues and/or touching/steadying and/or contact guard assistance as patient completes activit y. Assistance may be provided throughout the activity or intermittently. 3-Partial/Moderate Assistance-helper does LESS THAN HALF the effort. [place] lifts, holds or supports trunk or limbs, but provides less than half the effort. 2-Substantial/Maximal Assistance-helper does MORE THAN HALF the effort. [place] lifts or holds trunk or limbs and provides more than half the effort. 6-Qxbgjshmd-sulbsc does ALL the effort. Patient does none of the effort to complete the activity. Or, the assistance of 2 or more helpers is required for the patient to complete the activity. If activity was not attempted, code reason: 7-Patient Refused. 9-Not Applicable-not attempted and the patient did not perform the activity before the current illness, exacerbation or injury. 10-Not Attempted due to Environmental Limitations-(lack of equipment, weather restraints, etc.). 88-Not Attempted due to Medical Conditions or Safety Concerns. Oral Hygiene (QC): 4 OT Industrial Truck Operator Goals Nursing Home Goals Time Frame: Jul 23, 2022 Eating (QC): 4 Oral Hygiene (QC): 4 Toileting Hygiene (QC): 3 Shower/Bathe Self (QC): 3 Upper Body Dressing (QC): 3 Lower Body Dressing (QC): 3 On/Off Footwear (QC): 3 Additional Goals: 1-Demonstrate ADL Tasks, 2-Verbalize Understanding, 3- ImproveStrength/Zeb 1=Demonstrate adherence to instructed precautions during ADL tasks. 2=Patient will verbalize/demonstrate understanding of assistive devices/mo difications for ADL. 3=Patient will improve strength/tolerance for activity to enable patient to perform ADL's. OT Education/Plan Problem List/Assessment Assessment: Decreased Activ Tolerance, Decreased Safety Aware, Dependent Transfers, Impaired Bed Mobility, Impaired Cognition, Impaired Coordination, Impaired Funct Balance, Impaired Self-Care Skills, Restricted Funct UE ROM Discharge Recommendations Plan/Recommendations: Continue POC Treatment Plan/Plan of Care Patient would benefit from OT for education, treatment and training to promote independence in ADL's, mobility, safety and/or upper extremity function for ADL's. Plan of Care: ADL Retraining, Cognitive Retraining, Functional Mobility, Group Exercise/Act as Ind, UE Funct Exercise/Act, UE Neuromus Re-Ed/Coord, W/C Management Training Treatment Duration: Jul 23, 2022 Frequency: 3 times per week (3-5x/week ) Estimated Hrs Per Day: .25 hour per day Rehab Potential: Guarded Time Start Time: 11:06 Stop Time: 11:36 DATE: Jul 03, 2022 Total Time Billed (hr/min): 30 Billed Treatment Time 1 visit-ADL 1 (20 min) FA 1 (10 min) LOYD ROJAS Jul 03, 2022 10:49
--- NOTE | 2022-07-03 10:53 | Physical Therapy Daily Note ---
PT Daily Note-Current Subjective Patient in bed pre tx, agrees to PT, has no complaints of pain. Pain Section J - Health Conditions 1. Rarely or not at all 2. Occasionally 3. Frequently 4. Almost constantly 8. Unable to answer Pain Effect on Sleep: 1 Pain Interference with Therapy: 1 Pain Interference w/Day-to-Day: 1 Appearance Patient in bed post tx with nurse call, phone, tray, all needs met, bed alarm on. Mental Status Patient Orientation: Person, Confused Attachments: [place] Catheter, IV Transfers SCALE: Activities may be completed with or without assistive devices. 9-Qsfwoaxiro-ituxfma completes the activity by him/herself with no assistance from a helper. 5-Set-up or Clean-up Assistance-helper sets up or cleans up; patient completes activity. [place] assists only prior to or following the activity. 4-Supervision or Touching Assistance-helper provides verbal cues and/or touching/steadying and/or contact guard assistance as patient completes activity. Assistance may be provided throughout the activity or intermittently. 3-Partial/Moderate Assistance-helper does LESS THAN HALF the effort. [place] lifts, holds or supports trunk or limbs, but provides less than half the effort. 2-Substantial/Maximal Assistance-helper does MORE THAN HALF the effort. [place] lifts or holds trunk or limbs and provides more than half the effort. 1-Oaghloiot-tdksmu does ALL the effort. Patient does none of the effort to complete the activity. Or, the assistance of 2 or more helpers is required for the patient to complete the activity. If activity was not attempted, code reason: 7-Patient Refused. 9-Not Applicable-not attempted and the patient did not perform the activity before the current illness, exacerbation or injury. 10-Not Attempted due to Environmental Limitations-(lack of equipment, weather restraints, etc.). 88-Not Attempted due to Medical Conditions or Safety Concerns. Roll Left & Right (QC): 3 Sit to Lying (QC): 1 Lying to Sitting/Side of Bed(Q: 2 Sit to Stand (QC): 2 Patient sits to the side of the bed with max assist, leans fairly heavily to the left side, sit to stand max assist, attempted to take sidesteps toward the head of the bed but required manual assist with each leg to take a step, sat back down and then assist of 2 for sit to supine and to scoot up. Exercises Supine Ex: Ankle pumps, Heel Slides Supine Reps: 10 (patient required constant cues to stay on task) Treatments sitting, standing, LE ROM Assessment Current Status: Poor Progress patient less retropulsive in sitting and standing but leans fairly heavily to the left side. Patient needs cues for positioning and safety, seems very confused when up moving. PT It Security Specialist Goals Jail Goals PT Jail Goals Time Frame: Jul 09, 2022 Roll Left & Right (QC): 3 Sit to Lying (QC): 3 Lying-Sitting on Side/Bed(QC): 3 Sit to Stand (QC): 3 Chair/Aqm-no-Tzzhb Xfer(QC): 3 Walk 10 feet (QC): 3 PT Plan Problem List Problem List: Activity Tolerance, Functional Strength, Safety, Balance, Gait, Transfer, Bed Mobility, ROM Treatment/Plan Treatment Plan: Continue Plan of Care Treatment Plan: Bed Mobility, Education, Functional Activity Zeb, Functional Strength, Gait, Safety, Therapeutic Exercise, Transfers Treatment Duration: Jul 09, 2022 Frequency: 6 times per week Estimated Hrs Per Day: .25 hour per day Patient and/or Family Agrees t: Yes Safety Risks/Education Patient Education: Correct Positioning, Safety Issues Teaching Recipient: Patient Teaching Methods: Demonstration, Discussion Response to Teaching: Reinforcement Needed Time Time In: 1019 Time Out: 1035 DATE: Jul 03, 2022 Total Billed Treatment Time: 16 Total Billed Treatment 1 visit FA 16' CT REBOLLEDO PT Jul 03, 2022 10:53
--- NOTE | 2022-07-03 13:28 | Progress Note ---
Subjective Subjective/Events-last exam Afebrile, no acute events. States he is feeling well. He is alert and oriented this morning, doing oral care with his right hand. Focused Exam Lactate Level 07/01/22 23:58: Lactic Acid Level 1.00 Objective Exam Last Set of Vital Signs Vital Signs Date Time Temp Pulse Resp B/P (MAP) Pulse Ox O2 Delivery O2 Flow Rate FiO2 07/03/22 12:00 37.8 68 14 111/68 (82) 92 Room Air 07/03/22 00:00 3.00 Capillary Refill : Less Than 3 Seconds I&O Intake and Output 07/03/22 00:00 Intake Total 2140 ml Output Total 2525 ml Balance -385 ml Intake Oral 90 ml IV Total 2050 ml Output Urine Total 2525 ml Daily Weight Change No General: Alert, No Acute Distress Lungs: Clear to Auscultation, Normal Air Movement Heart: Regular Rate, No Murmurs Neuro: Normal Speech, Other (moving all extremities) Psych/Mental Status: Other (flat affect) Results/Procedures Lab Laboratory Tests 07/03/22 04:48: White Blood Count 9.2, Red Blood Count 4.73, Hemoglobin 14.1, Hematocrit 44, Mean Corpuscular Volume 92, Mean Corpuscular Hemoglobin 30, Mean Corpuscular Hemoglobin Concent 32, Red Cell Distribution Width 13.2, Platelet Count 226, Mean Platelet Volume 10.3, Sodium Level 136, Potassium Level 4.4, Chloride Level 108H, Carbon Dioxide Level 21, Anion Gap 7, Blood Urea Nitrogen 22H, Creatinine 1.74H, Estimat Glomerular Filtration Rate 40, BUN/Creatinine Ratio 13, Glucose Level 114H, Calcium Level 9.0, Corrected Calcium 9.6, Total Bilirubin 0.9, Aspartate Amino Transf (AST/SGOT) 16, Alanine Aminotransferase (ALT/SGPT) 18, Alkaline Phosphatase 89, Total Protein 6.0L, Albumin 3.3 Microbiology 07/01/22 Blood Culture - Preliminary, Resulted No growth 07/01/22 Urine Culture - Preliminary, Resulted Gram Pos Mixed Bacterial Margy Radiology 07/01/22 CXR: FINDINGS: Postsurgical changes of a CABG. Loop recorder is noted overlying the left chest. The cardiac silhouette is mildly enlarged. Minimal central pulmonary vascular congestion. Mild left basilar opacities are present. Low lung volumes. No definite pleural effusion. No pneumothorax. Chronic right clavicular fracture. No acute osseous abnormality. IMPRESSION: Mild cardiomegaly without significant pulmonary vascular congestion. Mild left basilar atelectasis and/or pneumonitis. Additional postsurgical and chronic findings, as above. 07/01/22 CTA head/neck: IMPRESSION: New occlusion within the distal/superior aspects of the bilateral anterior cerebral arteries. Some flow is noted distal to the regions of occlusion. Stable diminutive right vertebral artery with the most superior aspect of the right vertebral artery likely occluded, unchanged from the prior examination. Atretic left A1 segment with dominant right A1 segment. Mild to moderate narrowing of the cavernous portion of the left internal carotid artery, stable. Moderate narrowing involving the origin of the left vertebral artery. The occluded distal bilateral anterior cerebral arteries is a known finding. 07/01/22 CT head: IMPRESSION: No acute intracranial abnormality with advanced background chronic ischemic changes 07/01/22 CT head perfusion: IMPRESSION: Penumbra-like pattern involving the deep white matter of the bilateral frontal lobes, corresponding to occlusion of the bilateral NILA. MRI brain could be of use to further evaluate. Assessment/Plan Assessment/Plan Assessment & Plan Per ER notes- The stroke neurologist at , Dr. Romero, recommended a CT angio as his encephalomalacia, seizure focus did not match the right-sided weakness that he seemed to have on presentation. He was loaded with Keppra. After CTA was done, Dr. Nickerson in ER here called [facility] and spoke with Neurologist there who recommended higher level of care with thombectomy ability. stroke neurologist Dr. Romero called again, advised patient not a TPA candidate due to time frame, reviewed CT head, CTA head/neck and CT head perfusion scan and reported he was not candidate for thrombectomy or other treatment, need to proceed with rehab and supportive care, no benefit from transfer to . Did recommend repeat KASSI. 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 Romero, recommended a CT angio as his encephalomalacia, seizure focus did not match the right-sided weakness that he seemed to have on presentation. He was loaded with Keppra. After CTA was done, Dr. Nickerson in ER here called [facility] and spoke with Neurologist there who recommended higher level of care with thombectomy ability. stroke neurologist Dr. Romero called again, advised patient not a TPA candidate due to time frame, reviewed CT head, CTA head/neck and CT head perfus ion scan and reported he was not candidate for thrombectomy or other treatment, need to proceed with rehab and supportive care, no benefit from transfer to . Did recommend repeat KASSI. -Antiplatelet, PT, OT, ST, Cardiology consults 1/3- appears significantly improved, will follow up PT/OT evals for d/c recommendations (2) Seizures Status: Chronic Assessment & Plan: Loaded with Keppra in ER, was on at home, will continue. (3) COVID-19 virus infection Status: Acute Assessment & Plan: No clear respiratory issues, monitor closely. Uncertain onset given no clear symptoms. (4) CKD (chronic kidney disease) Status: Chronic (5) CAD (coronary artery disease) Status: Chronic (6) HTN (hypertension) Status: Chronic Assessment & Plan: Resume home amlodipine, will hold lisinopril as BP normal and creatinine possibly elevated from baseline. (7) Hypothyroidism (8) Bacteriuria Status: Acute Assessment & Plan: Possible UTI, received one dose of ceftriaxone, follow up culture- mixed bacteria (9) DVT prophylaxis Status: Acute Assessment & Plan: Enoxaparin KASIE PUGH MD Jul 03, 2022 13:28
[2022-07-03] MEDS ORDERED: OMEG100032 PO (16:07)
[2022-07-03] MEDS ORDERED: CETI10TA17 PO (16:07)
[2022-07-03] MEDS ORDERED: MELA5TAB14 PO (16:07)
[2022-07-03] MEDS: ENOXAPARIN 40 MG/0.4 ML (LOVENOX) SYR SQ SCH (20:21)
[2022-07-04] VITALS: BP 135/80
[2022-07-04 04:01] VITALS: BP 130/88
[2022-07-04 05:43] LABS: HEMATOCRIT 43 % (40-54); HEMOGLOBIN 14.1 g/dL (13.3-17.7); MEAN CORPUSCULAR HEMOGLOBIN 30 pg (25-34); MEAN CORPUSCULAR HGB CONC 33 g/dL (32-36); MEAN CORPUSCULAR VOLUME 91 fL (80-99); MEAN PLATELET VOLUME 10.3 fL (9.0-12.2); PLATELET COUNT 209 10^3/uL (130-400); WHITE BLOOD COUNT 8.7 10^3/uL (4.3-11.0)
[2022-07-04 05:54] LABS: POTASSIUM 4.1 MMOL/L (3.6-5.0)
[2022-07-04 06:00] LABS: CREATININE SERUM 1.84 MG/DL (0.60-1.30)
[2022-07-04 08:00] VITALS: BP 130/77
[2022-07-04] MEDS: ASPIRIN 81 MG CHEW (CHILDREN'S ASA) PO SCH (08:22)
[2022-07-04] MEDS: amLODIPine 10 MG (NORVASC) TAB PO SCH (08:22)
[2022-07-04] MEDS: CLOPIDOGREL 75 MG (PLAVIX) TABLET PO SCH (08:22)
[2022-07-04] MEDS: LEVOTHYROXINE 112 MCG (LEVOTHROID) TAB PO SCH (08:22)
--- NOTE | 2022-07-04 09:33 | Consultation-Cardiology ---
HPI-Cardiology Cardiology Consultation: Date of Consultation 07/04/22 Time Seen by a Provider: 09:10 Date of Admission 07-01-2022 Attending Physician [facility] Admitting Physician Admitting Physician: Katina Hinton MD Attending Physician: Katina Hinton MD Consulting Physician Juan Alaniz MD HPI: Chief Complaint: Syncope CVA Mr. Church is a 77 yr old male admitted to [facility] on 07-01-2022 d/t syncopal episode at home. He reports he does not recall the events leading up his admission. He denies any recent episodes of CP, palpitations or SOB. He states he has been compliant with his medications. He currently states he is feeling good. Review of Systems-Cardiology Review of Systems Constitutional: No chills, No fever, No malaise Eyes: No vision change Ears/Nose/Throat: No epistaxis Respiratory: As described under HPI Cardiovascular: As described under HPI Gastrointestinal: No constipation, No diarrhea, No nausea, No vomiting Genitourinary: No dysuria Skin: No rash on exposed areas, No ulcerations on exposed areas Psychiatric/Neurological: As described under HPI Hematologic: No bleeding abnormalities LUT-Jubgya-Lfanaq Hx Patient Social History Smoking Status: Never a Smoker 2nd Hand Smoke Exposure: No Have you traveled recently?: No Alcohol Use?: No Pt feels they are or have been: No Immunizations Up To Date Tetanus Booster (TDap): Unknown Date of Pneumonia Vaccine: Apr 02, 2017 Date of Influenza Vaccine: May 05, 2021 Past Medical History PMH As described under Assessment. Family Medical History Family Medical History: He reports a family h/o mother and father both having CAD. Family History: Cardiovascular disease 19 FATHER 19 MOTHER (CONGESTIVE HEART FAILURE) Diabetes mellitus 19 MOTHER FH: breast cancer 19 MOTHER Myocardial infarction 19 FATHER Allergies and Home Medications Allergies Coded Allergies: No Known Drug Allergies (Unverified , 03/27/22) Patient Home Medication List Allopurinol (Allopurinol) 100 Mg Tablet, 50 MG PO DAILY, (Reported) Entered as Reported by: KARRI CONTI on 09/15/20 0953 Last Action: Reviewed Amlodipine Besylate (Amlodipine Besylate) 10 Mg Tablet, 10 MG PO DAILY, (Reported) Entered as Reported by: FLOR BRICEÑO on 08/26/18 0711 Last Action: Reviewed Aspirin (Aspirin) 81 Mg Tab.chew, 81 MG PO DAILY, (Reported) Entered as Reported by: FLOR BRICEÑO on 08/26/18 0711 Last Action: Reviewed Atorvastatin Calcium (Atorvastatin Calcium) 80 Mg Tablet, 80 MG PO DAILY, ( Reported) Entered as Reported by: KARRI CONTI on 09/15/20952 Last Action: Reviewed Cetirizine HCl (Cetirizine HCl) 10 Mg Tablet, 10 MG PO DAILY PRN for ALLERGY SYMPTOMS, (Reported) Entered as Reported by: KARRI CONTI on 07/03/221606 Last Action: Reviewed Cholecalciferol (Vitamin D3) (Vitamin D3) 25 Mcg (1000 Unit) Tablet, 25 MCG PO DAILY, (Reported) Entered as Reported by: GIOVANNA CURRAN on 03/27/22 0833 Last Action: Reviewed Clopidogrel Bisulfate (Clopidogrel) 75 Mg Tablet, 75 MG PO DAILY, (Reported) Entered as Reported by: KARRI CONTI on 09/15/20952 Last Action: Reviewed Levetiracetam (Levetiracetam) 500 Mg Tablet, 500 MG PO BID, (Reported) Entered as Reported by: KARRI CONTI on 05/22/21 0904 Last Action: Reviewed Levothyroxine Sodium (Levothyroxine Sodium) 112 Mcg Tablet, 112 MCG PO DAILY, (Reported) Entered as Reported by: ROBERTO ROSADO on 12/05/17 1200 Last Action: Reviewed Lisinopril (Lisinopril) 20 Mg Tablet, 20 MG PO DAILY, (Reported) Entered as Reported by: GIOVANNA CURRAN on 03/27/22 0832 Last Action: Reviewed Melatonin (Melatonin) 5 Mg Tablet, 5 MG PO HS, (Reported) Entered as Reported by: KARRI CONTI on 07/03/221606 Last Action: Reviewed Multivitamin (Multivitamin) 1 Each Tablet, 1 EACH PO DAILY, (Reported) Entered as Reported by: KARRI CONTI on 09/15/20952 Last Action: Reviewed Mulino-3/Dha/Epa/Fish Oil (Fish Oil 1,000 mg Softgel) 1,000 Mg (120 Mg-180 Mg) Capsule, 1,000 MG PO DAILY, (Reported) Entered as Reported by: KARRI CONTI on 07/03/221606 Last Action: Reviewed Discontinued Medications Mulino 3 Polyunsat Fatty Acids (Fish Oil 1,000 mg Capsule) 1,000 Mg Cap, 1,000 MG PO BID, (Reported) Discontinued Reason: Duplicate Order Entered as Reported by: MONE LAM on 07/16/18 1006 Last Action: Discontinued Physical Exam-Cardiology Physical Exam Vital Signs/I&O 07/04/22 07/04/22 07/04/22 07/04/22 04:01 07:13 08:00 08:00 Temp 36.9 36.0 Pulse 66 64 64 Resp 14 14 B/P (MAP) 130/88 (102) 130/77 (94) Pulse Ox 93 95 95 O2 Delivery Room Air Room Air Room Air 07/04/22 12:00 Temp 36.9 Pulse 67 Resp 16 B/P (MAP) 125/81 (96) Pulse Ox 95 O2 Delivery Room Air 07/04/22 00:00 Intake Total 1780 ml Output Total 950 ml Balance 830 ml Capillary Refill : Less Than 3 Seconds Constitutional: AAO x 3, well-developed, well-nourished HEENT: PERRL, hearing is well preserved, oral hygience is good Neck: carotid bruit, carotid pulses are 2 + bilaterally Respiratory: No accessory muscle use, No respiratory distress; chest expansion is symmetric, chest is bilaterally symmetric, lungs clear to auscultation Cardiovascular: regular rate-rhythm; No JVD; S1 and S2 Gastrointestinal: No tender; soft, round, audible bowel sounds Extremities: no lower extremity edema bilateral Neurologic/Psychiatric: other (mild left upper and lower extremity weakness) Data Review Labs Laboratory Tests 07/04/22 05:34: White Blood Count 8.7, Red Blood Count 4.69, Hemoglobin 14.1, Hematocrit 43, Mean Corpuscular Volume 91, Mean Corpuscular Hemoglobin 30, Mean Corpuscular Hemoglobin Concent 33, Red Cell Distribution Width 12.9, Platelet Count 209, Mean Platelet Volume 10.3, Sodium Level 136, Potassium Level 4.1, Chloride Level 108H, Carbon Dioxide Level 21, Anion Gap 7, Blood Urea Nitrogen 29H, Creatinine 1.84H, Estimat Glomerular Filtration Rate 38, BUN/Creatinine Ratio 16, Glucose Level 102, Calcium Level 9.0 Microbiology 07/01/22 Blood Culture - Preliminary, Resulted No growth 07/01/22 Urine Culture - Preliminary, Resulted Staphylococcus epidermidis Radiology NAME: ALAN CHURCH [facility] REC#: [id number] PT STATUS: REG ER : 1945 PHYSICIAN: MEGHNA TOLLIVER MD ADMIT DATE: 07/01/22/ER Signed Date of Exam:07/01/22 CT ANGIO HEAD/NECK PROCEDURE: CT angiography of the head and CT angiography of the neck with and without contrast. TECHNIQUE: Contiguous noncontrast images were obtained from the skull base through the vertex. After intravenous contrast administration, helical CT angiography of the neck was performed. Source data was reformatted into 3D MIP projections. Delayed post contrast acquisition was also obtained. Auto Exposure Controls were utilized during the CT exam to meet ALARA standards for radiation dose reduction. INDICATION: Weakness, mute, fall. COMPARISON: Imaging from the same date and from 05/21/2021. FINDINGS: Significant hypodensity related to encephalomalacia is again identified within the right frontal lobe and right parietal lobe as well as the high left parietal lobe, similar to older imaging. Additional encephalomalacia within the bilateral cerebellar hemispheres is again seen, similar to the prior exam. No midline shift, herniation, obstructive hydrocephalus or significant extra-axial fluid collection. No enhancing intracranial mass lesion. Background vascular calcifications. The bilateral ocular lenses are absent. The orbits are otherwise unremarkable. Small mucous retention cyst within the left maxillary sinus. The paranasal sinuses are otherwise clear. The calvarium is intact. The parapharyngeal fat is symmetric and well-maintained. The muscles of mastication are unremarkable. The salivary glands are unremarkable. No significant adenopathy within the neck. Median sternotomy. No apical pneumothorax. The thyroid gland is small in size. Retropharyngeal course of the right common carotid artery. A three-vessel aortic arch is present. Mild vascular calcifications within the right carotid bulb without hemodynamically significant stenosis. The distal right internal carotid artery is tortuous. The left A1 segment is again noted to be atretic with the dominant right A1 segment. Mild to moderate stenosis involving the cavernous portion of the left internal carotid artery. Moderate narrowing of the origin of the left vertebral artery. A dominant left vertebral artery is again identified with a diminutive right vertebral artery. Mild multifocal stenosis within the intracranial portion of the left vertebral artery. origin of the right posterior cerebral artery. 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 This appears stable from the prior examination. Right PICA appears to be supplied via the left vertebral artery. There is occlusion of the distal aspect of the bilateral anterior cerebral arteries, which appears to be new from the prior examination. Scattered osseous degenerative changes without acute osseous abnormality. 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 Some flow is noted distal to the regions of occlusion. Stable diminutive right vertebral artery with the most superior aspect of the right vertebral artery likely occluded, unchanged from the prior examination. Atretic left A1 segment with dominant right A1 segment. Mild to moderate narrowing of the cavernous portion of the left internal carotid artery, stable. Moderate narrowing involving the origin of the left vertebral artery. Additional findings as described above. The occluded distal bilateral anterior cerebral arteries is a known finding. Dictated by: Dictated on workstation # [id number] Dict: 07/01/221947 Trans: 07/01/222014 [facility] [id number] Interpreted by: TEVIN CAMARGO MD Electronically signed by: TEVIN CAMARGO MD 07/01/222014 NAME: ALAN CHURCH [facility] REC#: [id number] PT STATUS: REG ER : 1945 PHYSICIAN: KRISTIAN RODRIGEZ DO ADMIT DATE: 07/01/22/ER Signed Date of Exam:07/01/22 CT HEAD PERFUSION W/ CONTRAST TECHNIQUE: CT cerebral perfusion study was performed using a dual slab technique. Post processing was performed using the RAPID software. 80 mL of Omnipaque 350 was administered. REASON FOR EXAM: Seizure. Fall. Focal neurologic deficit. Occlusion of the bilateral NILA. COMPARISON: CTA head and neck performed the same date. FINDINGS: There is mild motion artifact. The arterial inflow and venous outflow graphs are adequate. The volume of parenchyma demonstrating cerebral blood flow of less than 30% is equal to 0 mL. The volume of parenchyma showing a Tmax greater than 6 seconds is 50 mL. Parenchyma are demonstrated Tmax greater than 8 seconds equals 14 mL, and greater than 10 seconds 9 mL. A small penumbra-like pattern is seen involving the deep white matter of the medial aspect of the bilateral frontal lobes. IMPRESSION: Penumbra-like pattern involving the deep white matter of the bilateral frontal lobes, corresponding to occlusion of the bilateral NILA. MRI brain could be of use to further evaluate. Findings were discussed with Dr. Rodrigez at 7:50 PM on 07/01/[address] Little. Dictated by: Dictated on workstation # [id number] Dict: 07/01/221941 Trans: 07/01/222033 [facility] [id number] Interpreted by: YANETH LITTLE DO Electronically signed by: YANETH LITTLE DO 07/01/222033 ECG Impression ECG Initial ECG Rhythm: Normal Sinus A/P-Cardiology Assessment/Admission Diagnosis Syncope - undetermined etiology with ? seizure COVID (+) - managed by medical services CVA: - CVA 05-22-21 with resultant LUE, LLE weakness, facial droop, visual disturbance and vertigo - MRI of 05-22-21 There is a small to moderate sized area of acute infarct involving the inferior medial left cerebellum and lateral posterior brainstem medulla which correlates to the left vertebral artery and left PICA distribution. There is small area of acute infarct involving the high lateral posterior left frontal lobe region. Chronic cerebral infarct involving the right frontal lobe and right parietal lobe. - H/O CVA on 04/02/20 - MRI of 04/04/20: There is an acute cerebral infarct involving the right parietal lobe region with no evidence of hemorrhagic transformation, brain herniation or midline shift. Mild, persistent L hand weakness - S/p ILR on 04/04/20. No arrhythmia detected. Transmission from 07-01-2022 (prior to the event leading to this hospitalization) did not show any evidence of arrhythmia - CTA of the head on 07-01-2022 showed: New occlusion within the distal/superior aspects of the bilateral anterior cerebral arteries. Some flow is noted distal to the regions of occlusion. Stable diminutive right vertebral artery with the most superior aspect of the right vertebral artery likely occluded, unchanged from the prior examination. ED physican called [facility] and spoke with Neurologist there who recommended higher level of care with thombectomy ability. stroke neurologist Dr. Romero called again, advised patient not a TPA candidate due to time frame, reviewed CT head, CTA head/neck and CT head perfusion scan and reported he was not candidate for thrombectomy or other treatment, need to proceed with rehab and supportive care, no benefit from transfer to . Did recommend repeat KASSI. - KASSI of 03-27-22 showed no evidence of PFO. No evidence of a thrombus in the atrial cavity or appendage. No evidence of vegetation of the mitral, aortic, tricuspid and pulmonic valve. Mild MR Carotid and vertebral dz: - Minimal bilat carotid plaque per carotid u/s of May 2019 - CT angio head and neck on 05/22/21: Dominant left cervical vertebral occludes just below the skull base. The atretic small caliber right vertebral cannot be identified as patent beyond the C2 level. The cervical carotid showed calcified and soft plaque without hemodynamically significant degrees of narrowing. CAD: - Ac NSTEMI in early Jul 2018 that was treated with PCI (see below) - with h/o CABG x5 by Dr Engle at [facility] in 2009 - Cardiac cath of 07-16-18: 95% mid vessel stenosis of left anterior descending, proximal occlusion of the left circumflex, and 90-95% proximal stenosis of the right coronary artery; three out of four aortocoronary grafts (SVGs) are occluded; graft (to OM) was patent with 95% proximal stenosis and was successfully treated with Iris 3.0 x 23 mm stent; patent left internal mammary artery graft to distal left anterior descending artery; normal left ventricular end-diastolic pressure. - Last cath on 08/26/18: successful stenting of prox-to-mid RCA with Sierrra 2.25x28 mm stent. - Echocardiogram of 05-22-[address] Aguila showed LVEF 70-75%. Mod concentric hypertrophy. Paradoxical septal motion consistent with an intraventricular conduction delay. Grade 1 diastolic dysfunction. LA mild dilated. Possible PFO with [id number] shunt. Mild AoV sclerosis. - KASSI of 03-27-22 showed no evidence of PFO - MPI of 02-03-21: no evidence of ischemia or infarction. LVEF 61% CKD 4: - stable after card cath and cor intervention of 07-16-18 (i.e, no evidence of contrast nephropathy on repeat lab work of 07-21-18) HLD: - statin tx - followed by PCP HTN: - controlled Hypothyroidism: - replacement tx - followed by PCP BPH: - h/o TURP H/o tobacco use: - quit many years ago Seizure disorder: - management per PCP - maintained on Kepra Nonspecific IVCD on ECG Discussion and Recomendations Syncope of undetermined etiology - ILR transmission from 07-01-22 did not show any arrhythmia, however the download was prior to the event - will interrogate ILR CVA - New occlusion within the distal/superior aspects of the bilateral anterior cerebral arteries - [facility] has advised supportive care and rehab - management per medical services - continue ASA and Plavix COVID (+) - management per medical services Monitor lab closely Further recs will be based on his hospital course We would like to thank medical services for this consult KAYLA DASILVA Jul 04, 2022 09:33
--- NOTE | 2022-07-04 10:11 | Physical Therapy Daily Note ---
PT Daily Note-Current Subjective Patient in bed pre tx, agrees to PT, has no complaints of pain. Pain Section J - Health Conditions 1. Rarely or not at all 2. Occasionally 3. Frequently 4. Almost constantly 8. Unable to answer Pain Effect on Sleep: 1 Pain Interference with Therapy: 1 Pain Interference w/Day-to-Day: 1 Appearance Patient in recliner post tx with nurse call, phone, tray, all needs met, chair alarm on. Mental Status Patient Orientation: Person, Confused Attachments: Lake Catheter Transfers SCALE: Activities may be completed with or without assistive devices. 4-Cazbvfyion-nvferym completes the activity by him/herself with no assistance from a helper. 5-Set-up or Clean-up Assistance-helper sets up or cleans up; patient completes activity. [place] assists only prior to or following the activity. 4-Supervision or Touching Assistance-helper provides verbal cues and/or touching/steadying and/or contact guard assistance as patient completes activity. Assistance may be provided throughout the activity or intermittently. 3-Partial/Moderate Assistance-helper does LESS THAN HALF the effort. [place] lifts, holds or supports trunk or limbs, but provides less than half the effort. 2-Substantial/Maximal Assistance-helper does MORE THAN HALF the effort. [place] lifts or holds trunk or limbs and provides more than half the effort. 2-Zdirqoqbg-fsgcuz does ALL the effort. Patient does none of the effort to complete the activity. Or, the assistance of 2 or more helpers is required for the patient to complete the activity. If activity was not attempted, code reason: 7-Patient Refused. 9-Not Applicable-not attempted and the patient did not perform the activity before the current illness, exacerbation or injury. 10-Not Attempted due to Environmental Limitations-(lack of equipment, weather restraints, etc.). 88-Not Attempted due to Medical Conditions or Safety Concerns. Roll Left & Right (QC): 4 Lying to Sitting/Side of Bed(Q: 4 Sit to Stand (QC): 4 Chair/Etg-qf-Kuhqm Xfer(QC): 3 SBA for supine to sit, CGA for sit to stand, min assist for transfers, patient needs cues for positioning and safety, he is impulsive. Patient needs to have a BM. Gait Training Distance: 10'x2 Walk 10 feet (QC): 3 Gait Assistive Device: FWW Patient ambulates into the restroom and sits on toilet, needs cues for safety, needs assist to guide walker, he is very impulsive, needs some assist wiping, ambulates back into room and to recliner. Treatments toileting, ambulation, bed mobility and transfers Assessment Current Status: Fair Progress improved mobility but has poor safety awareness and is impulsive, seems to have some left neglect PT Physical Meteorologist Goals Jail Goals PT Physical Meteorologist Goals Time Frame: Jul 09, 2022 Roll Left & Right (QC): 3 Sit to Lying (QC): 3 Lying-Sitting on Side/Bed(QC): 3 Sit to Stand (QC): 3 Chair/Ddc-gb-Fsinm Xfer(QC): 3 Walk 10 feet (QC): 3 PT Plan Problem List Problem List: Activity Tolerance, Functional Strength, Safety, Balance, Gait, Transfer, Bed Mobility, ROM Treatment/Plan Treatment Plan: Continue Plan of Care Treatment Plan: Bed Mobility, Education, Functional Activity Zeb, Functional Strength, Gait, Safety, Therapeutic Exercise, Transfers Treatment Duration: Jul 09, 2022 Frequency: 6 times per week Estimated Hrs Per Day: .25 hour per day Patient and/or Family Agrees t: Yes Safety Risks/Education Patient Education: Gait Training, Transfer Techniques, Correct Positioning, Safety Issues Teaching Recipient: Patient Teaching Methods: Demonstration, Discussion Response to Teaching: Reinforcement Needed Time Time In: 934 Time Out: 944 DATE: Jul 04, 2022 Total Billed Treatment Time: 10 Total Billed Treatment [address] BAUER PT Jul 04, 2022 10:11
--- NOTE | 2022-07-04 10:34 | Occupational Ther Daily Note ---
OT Current Status-Daily Note Subjective Pt alert, lying in bed. Nrsg requested assistance to help pt up to commode for BM. Pt agrees to therapy. No c/o pain. Pt able to answer all orientation questions correctly except that the hospital is in [facility]. Education on asking for help and going over call light to reinforce calling for assistance. Mental Status/Objective Patient Orientation: Person, Confused (impulsive), Place, Time, Situation Attachments: Lake Catheter, IV, Telemetry ADL-Treatment Supine to EOB independently. Assist x2 for safety with all mobility due to pt's impulsivity. Pt ambulated to bathroom using FWW and required verbal cues for hand placement with sit<-->stand from surfaces. Pt able to wipe self though not efficiently, assist to thoroughly cleanse. After session, pt sitting in recliner with call light/phone in reach. Safety measures in place. All needs m et. Therapy Code Descriptions/Definitions Functional [place] Measure: 0=Not Assessed/NA 4=Minimal Assistance 1=Total Assistance 5=Supervision or Setup 2=Maximal Assistance 6=Modified [place] 3=Moderate Assistance 7=Complete IndependenceSCALE: Activities may be completed with or without assistive devices. 2-Snntndkdbx-cpssumv completes the activity by him/herself with no assistance from a helper. 5-Set-up or Clean-up Assistance-helper sets up or cleans up; patient completes activity. [place] assists only prior to or following the activity. 4-Supervision or Touching Assistance-helper provides verbal cues and/or touching/steadying and/or contact guard assistance as patient completes activity. Assistance may be provided throughout the activity or intermittently. 3-Partial/Moderate Assistance-helper does LESS THAN HALF the effort. [place] lifts, holds or supports trunk or limbs, but provides less than half the effort. 2-Substantial/Maximal Assistance-helper does MORE THAN HALF the effort. [place] lifts or holds trunk or limbs and provides more than half the effort. 0-Wikbythkc-aqjfna does ALL the effort. Patient does none of the effort to complete the activity. Or, the assistance of 2 or more helpers is required for the patient to complete the activity. If activity was not attempted, code reason: 7-Patient Refused. 9-Not Applicable-not attempted and the patient did not perform the activity be fore the current illness, exacerbation or injury. 10-Not Attempted due to Environmental Limitations-(lack of equipment, weather restraints, etc.). 88-Not Attempted due to Medical Conditions or Safety Concerns. OT Private Duty Rn Goals Alf Goals Time Frame: Jul 23, 2022 Eating (QC): 4 Oral Hygiene (QC): 4 Toileting Hygiene (QC): 3 Shower/Bathe Self (QC): 3 Upper Body Dressing (QC): 3 Lower Body Dressing (QC): 3 On/Off Footwear (QC): 3 Additional Goals: 1-Demonstrate ADL Tasks, 2-Verbalize Understanding, 3- ImproveStrength/Zeb 1=Demonstrate adherence to instructed precautions during ADL tasks. 2=Patient will verbalize/demonstrate understanding of assistive devices/mo difications for ADL. 3=Patient will improve strength/tolerance for activity to enable patient to perform ADL's. OT Education/Plan Problem List/Assessment Assessment: Decreased Safety Aware, Impaired Coordination, Impaired Funct Balance, Impaired Self-Care Skills Discharge Recommendations Plan/Recommendations: Continue POC Treatment Plan/Plan of Care Patient would benefit from OT for education, treatment and training to promote independence in ADL's, mobility, safety and/or upper extremity function for ADL's. Plan of Care: ADL Retraining, Cognitive Retraining, Functional Mobility, Group Exercise/Act as Ind, UE Funct Exercise/Act, UE Neuromus Re-Ed/Coord, W/C Management Training Treatment Duration: Jul 23, 2022 Frequency: 3 times per week (3-5x/week ) Estimated Hrs Per Day: .25 hour per day Rehab Potential: Guarded Time Start Time: 09:35 Stop Time: 09:58 DATE: Jul 04, 2022 Total Time Billed (hr/min): 23 Billed Treatment Time 1 visit-ADL 2 (23 min) LOYD ROJAS Jul 04, 2022 10:34
[2022-07-04 12:00] VITALS: BP 125/81
--- NOTE | 2022-07-04 13:35 | Consultation-Cardiology ---
HPI-Cardiology Cardiology Consultation: Date of Consultation 07/04/22 Time Seen by a Provider: 11:45 Date of Admission Attending Physician [place] Admitting Physician Admitting Physician: Katina Hinton MD Attending Physician: Katina Hinton MD Consulting Physician BELLA SMITH MD, MA, FACP, FACC, [facility], CCDS HPI: Chief Complaint: Syncope CVA Mr. Castro is a 77 yr old male admitted to [facility] on 07-01-2022 d/t syncopal episode at home. He reports he does not recall the events leading up his admission. He denies any recent episodes of CP, palpitations or SOB. He states he has been compliant with his medications. He currently states he is feeling good. Review of Systems-Cardiology Review of Systems Constitutional: No chills, No fever, No malaise Eyes: No vision change Ears/Nose/Throat: No epistaxis Respiratory: As described under HPI Cardiovascular: As described under HPI Gastrointestinal: No constipation, No diarrhea, No nausea, No vomiting Genitourinary: No dysuria Skin: No rash on exposed areas, No ulcerations on exposed areas Psychiatric/Neurological: As described under HPI Hematologic: No bleeding abnormalities RKO-Gjzsjf-Dqinpn Hx Patient Social History Smoking Status: Never a Smoker 2nd Hand Smoke Exposure: No Have you traveled recently?: No Alcohol Use?: No Pt feels they are or have been: No Immunizations Up To Date Tetanus Booster (TDap): Unknown Date of Pneumonia Vaccine: Apr 02, 2017 Date of Influenza Vaccine: May 05, 2021 Past Medical History PMH As described under Assessment. Family Medical History Family Medical History: He reports a family h/o mother and father both having CAD. Family History: Cardiovascular disease 19 FATHER 19 MOTHER (CONGESTIVE HEART FAILURE) Diabetes mellitus 19 MOTHER FH: breast cancer 19 MOTHER Myocardial infarction 19 FATHER Allergies and Home Medications Allergies Coded Allergies: No Known Drug Allergies (Unverified , 03/27/22) Patient Home Medication List Home Medication List Reviewed: Yes Allopurinol (Allopurinol) 100 Mg Tablet, 50 MG PO DAILY, (Reported) Entered as Reported by: KARRI CONTI on 09/15/20 0917 Last Action: Reviewed Amlodipine Besylate (Amlodipine Besylate) 10 Mg Tablet, 10 MG PO DAILY, (Reported) Entered as Reported by: FLOR BRICEÑO on 08/26/18 0711 Last Action: Reviewed Aspirin (Aspirin) 81 Mg Tab.chew, 81 MG PO DAILY, (Reported) Entered as Reported by: FLOR BRICEÑO on 08/26/18 0711 Last Action: Reviewed Atorvastatin Calcium (Atorvastatin Calcium) 80 Mg Tablet, 80 MG PO DAILY, (Reported) Entered as Reported by: KARRI CONTI on 09/15/20952 Last Action: Reviewed Cetirizine HCl (Cetirizine HCl) 10 Mg Tablet, 10 MG PO DAILY PRN for ALLERGY SYMPTOMS, (Reported) Entered as Reported by: KARRI CONTI on 07/03/221606 Last Action: Reviewed Cholecalciferol (Vitamin D3) (Vitamin D3) 25 Mcg (1000 Unit) Tablet, 25 MCG PO DAILY, (Reported) Entered as Reported by: GIOVANNA CURRAN on 03/27/22 0833 Last Action: Reviewed Clopidogrel Bisulfate (Clopidogrel) 75 Mg Tablet, 75 MG PO DAILY, (Reported) Entered as Reported by: KARRI CONTI on 09/15/20 09 Last Action: Reviewed Levetiracetam (Levetiracetam) 500 Mg Tablet, 500 MG PO BID, (Reported) Entered as Reported by: KARRI CONTI on 05/22/21 0904 Last Action: Reviewed Levothyroxine Sodium (Levothyroxine Sodium) 112 Mcg Tablet, 112 MCG PO DAILY, (Reported) Entered as Reported by: ROBERTO ROSADO on 12/05/17 1200 Last Action: Reviewed Lisinopril (Lisinopril) 20 Mg Tablet, 20 MG PO DAILY, (Reported) Entered as Reported by: GIOVANNA CURRAN on 03/27/22 0832 Last Action: Reviewed Melatonin (Melatonin) 5 Mg Tablet, 5 MG PO HS, (Reported) Entered as Reported by: KARRI CONTI on 07/03/22 160 Last Action: Reviewed Multivitamin (Multivitamin) 1 Each Tablet, 1 EACH PO DAILY, (Reported) Entered as Reported by: KARRI CONTI on 09/15/20952 Last Action: Reviewed Sparks-3/Dha/Epa/Fish Oil (Fish Oil 1,000 mg Softgel) 1,000 Mg (120 Mg-180 Mg) Capsule, 1,000 MG PO DAILY, (Reported) Entered as Reported by: KARRI CONTI on 07/03/22 1607 Last Action: Reviewed Discontinued Medications Sparks 3 Polyunsat Fatty Acids (Fish Oil 1,000 mg Capsule) 1,000 Mg Cap, 1,000 MG PO BID, (Reported) Discontinued Reason: Duplicate Order Entered as Reported by: MONE LAM on 07/16/18 1006 Last Action: Discontinued Physical Exam-Cardiology Physical Exam Vital Signs/I&O 07/04/22 07/04/22 07/04/22 07/04/22 04:01 07:13 08:00 08:00 Temp 36.9 36.0 Pulse 66 64 64 Resp 14 14 B/P (MAP) 130/88 (102) 130/77 (94) Pulse Ox 93 95 95 O2 Delivery Room Air Room Air Room Air 07/04/22 12:00 Temp 36.9 Pulse 67 Resp 16 B/P (MAP) 125/81 (96) Pulse Ox 95 O2 Delivery Room Air 07/04/22 00:00 Intake Total 1780 ml Output Total 950 ml Balance 830 ml Capillary Refill : Less Than 3 Seconds Constitutional: AAO x 3, well-developed, well-nourished HEENT: PERRL, hearing is well preserved, oral hygience is good Neck: carotid bruit, carotid pulses are 2 + bilaterally Respiratory: No accessory muscle use, No respiratory distress; chest expansion is symmetric, chest is bilaterally symmetric, lungs clear to auscultation Cardiovascular: regular rate-rhythm; No JVD; S1 and S2 Gastrointestinal: No tender; soft, round, audible bowel sounds Extremities: no lower extremity edema bilateral Neurologic/Psychiatric: other (mild left upper and lower extremity weakness) Data Review Labs Laboratory Tests 07/04/22 05:34: White Blood Count 8.7, Red Blood Count 4.69, Hemoglobin 14.1, Hematocrit 43, Mean Corpuscular Volume 91, Mean Corpuscular Hemoglobin 30, Mean Corpuscular Hemoglobin Concent 33, Red Cell Distribution Width 12.9, Platelet Count 209, Mean Platelet Volume 10.3, Sodium Level 136, Potassium Level 4.1, Chloride Level 108H, Carbon Dioxide Level 21, Anion Gap 7, Blood Urea Nitrogen 29H, Creatinine 1.84H, Estimat Glomerular Filtration Rate 38, BUN/Creatinine Ratio 16, Glucose Level 102, Calcium Level 9.0 Microbiology 07/01/22 Blood Culture - Preliminary, Resulted No growth 07/01/22 Urine Culture - Preliminary, Resulted Staphylococcus epidermidis A/P-Cardiology Assessment/Admission Diagnosis Syncope - undetermined etiology with ? seizure - ILR interrogation of 07/04/22 does not indicate any arrhythmia. Thus, syncope does not appear to be of cardiac origin COVID (+) - managed by medical services CVA: - CVA 05-22-21 with resultant LUE, LLE weakness, facial droop, visual disturbance and vertigo - MRI of 05-22-21 There is a small to moderate sized area of acute infarct involving the inferior medial left cerebellum and lateral posterior brainstem medulla which correlates to the left vertebral artery and left PICA distribution. There is small area of acute infarct involving the high lateral posterior left frontal lobe region. Chronic cerebral infarct involving the right frontal lobe and right parietal lobe. - H/O CVA on 04/02/20 - MRI of 04/04/20: There is an acute cerebral infarct involving the right parietal lobe region with no evidence of hemorrhagic transformation, brain herniation or midline shift. Mild, persistent L hand weakness - S/p ILR on 04/04/20. No arrhythmia detected. Transmission from 07-01-2022 (prior to the event leading to this hospitalization) did not show any evidence of a rrhythmia - CTA of the head on 07-01-2022 showed: New occlusion within the distal/superior aspects of the bilateral anterior cerebral arteries. Some flow is noted distal to the regions of occlusion. Stable diminutive right vertebral artery with the most superior aspect of the right vertebral artery likely occluded, unchanged from the prior examination. ED physican called [facility] and spoke with Neurologist there who recommended higher level of care with thombectomy ability. stroke neurologist Dr. Romero called again, advised patient not a TPA candidate due to time frame, reviewed CT head, CTA head/neck and CT head perfusion scan and reported he was not candidate for thrombectomy or other treatment, need to proceed with rehab and supportive care, no benefit from transfer to . Did recommend repeat KASSI. - KASSI of 03-27-22 showed no evidence of PFO. No evidence of a thrombus in the atrial cavity or appendage. No evidence of vegetation of the mitral, aortic, tricuspid and pulmonic valve. Mild MR Carotid and vertebral dz: - Minimal bilat carotid plaque per carotid u/s of May 2019 - CT angio head and neck on 05/22/21: Dominant left cervical vertebral occludes just below the skull base. The atretic small caliber right vertebral cannot be identified as patent beyond the C2 level. The cervical carotid showed calcified and soft plaque without hemodynamically significant degrees of narrowing. CAD: - Ac NSTEMI in early Jul 2018 that was treated with PCI (see below) - with h/o CABG x5 by Dr Engle at [facility] in 2009 - Cardiac cath of 07-16-18: 95% mid vessel stenosis of left anterior descending, proximal occlusion of the left circumflex, and 90-95% proximal stenosis of the right coronary artery; three out of four aortocoronary grafts (SVGs) are occluded; graft (to OM) was patent with 95% proximal stenosis and was successfully treated with Iris 3.0 x 23 mm stent; patent left internal mammary artery graft to distal left anterior descending artery; normal left ventricular end-diastolic pressure. - Last cath on 08/26/18: successful stenting of prox-to-mid RCA with Sierrra 2.25x28 mm stent. - Echocardiogram of 05-22-[address] Aguila showed LVEF 70-75%. Mod concentric hypertrophy. Paradoxical septal motion consistent with an intraventricular conduction delay. Grade 1 diastolic dysfunction. LA mild dilated. Possible PFO with kywz-bq-vuxtu shunt. Mild AoV sclerosis. - KASSI of 03-27-22 showed no evidence of PFO - MPI of 02-03-21: no evidence of ischemia or infarction. LVEF 61% CKD 4: - stable after card cath and cor intervention of 07-16-18 (i.e, no evidence of contrast nephropathy on repeat lab work of 07-21-18) HLD: - statin tx - followed by PCP HTN: - controlled Hypothyroidism: - replacement tx - followed by PCP BPH: - h/o TURP H/o tobacco use: - quit many years ago Seizure disorder: - management per PCP - maintained on Kepra Nonspecific IVCD on ECG Discussion and Recomendations Syncope does not appear to be of cardiac origin (see above). We will continue to monitor rhythm on ILR CVA - New occlusion within the distal/superior aspects of the bilateral anterior cerebral arteries - [facility] has advised supportive care and rehab - management per medical services - continue ASA and Plavix - a KASSI was recently performed (Mar 2022) and no intracardiac shunt / PFO / thrombosis found. We will continue to monitor for PAF on ILR COVID (+) - management per medical services Monitor lab closely Further recs will be based on his hospital course We would like to thank medical services for this consult BELLA SMITH MD FACP FAC CCDS Jul 04, 2022 13:35
--- NOTE | 2022-07-04 14:44 | Progress Note ---
Subjective Subjective/Events-last exam Pt continues to improve significantly. He is easily conversant this morning, and was able to take some steps with 2 person assist. He denies concerns. Focused Exam Lactate Level 07/01/22 23:58: Lactic Acid Level 1.00 Objective Exam Last Set of Vital Signs Vital Signs Date Time Temp Pulse Resp B/P (MAP) Pulse Ox O2 Delivery O2 Flow Rate FiO2 07/04/22 12:00 36.9 67 16 125/81 (96) 95 Room Air 07/03/22 00:00 3.00 Capillary Refill : Less Than 3 Seconds I&O Intake and Output 07/04/22 00:00 Intake Total 2780 ml Output Total 1400 ml Balance 1380 ml Intake Oral 980 ml IV Total 1800 ml Output Urine Total 1400 ml # Bowel Movements 1 General: Alert, No Acute Distress Lungs: Clear to Auscultation, Normal Air Movement Heart: Regular Rate, No Murmurs Neuro: Normal Speech Psych/Mental Status: Mental Status NL, Mood NL Results/Procedures Lab Laboratory Tests 07/04/22 05:34: White Blood Count 8.7, Red Blood Count 4.69, Hemoglobin 14.1, Hematocrit 43, Mean Corpuscular Volume 91, Mean Corpuscular Hemoglobin 30, Mean Corpuscular Hemoglobin Concent 33, Red Cell Distribution Width 12.9, Platelet Count 209, Mean Platelet Volume 10.3, Sodium Level 136, Potassium Level 4.1, Chloride Level 108H, Carbon Dioxide Level 21, Anion Gap 7, Blood Urea Nitrogen 29H, Creatinine 1.84H, Estimat Glomerular Filtration Rate 38, BUN/Creatinine Ratio 16, Glucose Level 102, Calcium Level 9.0 Microbiology 07/01/22 Blood Culture - Preliminary, Resulted No growth 07/01/22 Urine Culture - Preliminary, Resulted Staphylococcus epidermidis Radiology NAME: [facility] REC#: [id number] PT STATUS: REG ER : 1945 PHYSICIAN: MEGHNA TOLLIVER MD ADMIT DATE: 07/01/22/ER Signed Date of Exam:07/01/22 CT ANGIO HEAD/NECK PROCEDURE: CT angiography of the head and CT angiography of the neck with and without contrast. TECHNIQUE: Contiguous noncontrast images were obtained from the skull base through the vertex. After intravenous contrast administration, helical CT angiography of the neck was performed. Source data was reformatted into 3D MIP projections. Delayed post contrast acquisition was also obtained. Auto Exposure Controls were utilized during the CT exam to meet ALARA standards for radiation dose reduction. INDICATION: Weakness, mute, fall. COMPARISON: Imaging from the same date and from 05/21/2021. FINDINGS: Significant hypodensity related to encephalomalacia is again identified within the right frontal lobe and right parietal lobe as well as the high left parietal lobe, similar to older imaging. Additional encephalomalacia within the bilateral cerebellar hemispheres is again seen, similar to the prior exam. No midline shift, herniation, obstructive hydrocephalus or significant extra-axial fluid collection. No enhancing intracranial mass lesion. Background vascular calcifications. The bilateral ocular lenses are absent. The orbits are otherwise unremarkable. Small mucous retention cyst within the left maxillary sinus. The paranasal sinuses are otherwise clear. The calvarium is intact. The parapharyngeal fat is symmetric and well-maintained. The muscles of mastication are unremarkable. The salivary glands are unremarkable. No significant adenopathy within the neck. Median sternotomy. No apical pneumothorax. The thyroid gland is small in size. Retropharyngeal course of the right common carotid artery. A three-vessel aortic arch is present. Mild vascular calcifications within the right carotid bulb without hemodynamically significant stenosis. The distal right internal carotid artery is tortuous. The left A1 segment is again noted to be atretic with the dominant right A1 segment. Mild to moderate stenosis involving the cavernous portion of the left internal carotid artery. Moderate narrowing of the origin of the left vertebral artery. A dominant left vertebral artery is again identified with a diminutive right vertebral artery. Mild multifocal stenosis within the intracranial portion of the left vertebral artery. origin of the right posterior cerebral artery. 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 This appears stable from the prior examination. Right PICA appears to be supplied via the left vertebral artery. There is occlusion of the distal aspect of the bilateral anterior cerebral arteries, which appears to be new from the prior examination. Scattered osseous degenerative changes without acute osseous abnormality. 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 Some flow is noted distal to the regions of occlusion. Stable diminutive right vertebral artery with the most superior aspect of the right vertebral artery likely occluded, unchanged from the prior examination. Atretic left A1 segment with dominant right A1 segment. Mild to moderate narrowing of the cavernous portion of the left internal carotid artery, stable. Moderate narrowing involving the origin of the left vertebral artery. Additional findings as described above. The occluded distal bilateral anterior cerebral arteries is a known finding. Dictated by: Dictated on workstation # [id number] Dict: 07/01/221947 Trans: 07/01/222014 PJE [id number] Interpreted by: TEVIN CAMARGO MD Electronically signed by: TEVIN CAMARGO MD 07/01/222014 NAME: ALAN CHURCH [facility] REC#: [id number] PT STATUS: REG ER : 1945 PHYSICIAN: KRISTIAN NICKERSON DO ADMIT DATE: 07/01/22/ER Signed Date of Exam:07/01/22 CT HEAD PERFUSION W/ CONTRAST TECHNIQUE: CT cerebral perfusion study was performed using a dual slab technique. Post processing was performed using the RAPID software. 80 mL of Omnipaque 350 was administered. REASON FOR EXAM: Seizure. Fall. Focal neurologic deficit. Occlusion of the bilateral NILA. COMPARISON: CTA head and neck performed the same date. FINDINGS: There is mild motion artifact. The arterial inflow and venous outflow graphs are adequate. The volume of parenchyma demonstrating cerebral blood flow of less than 30% is equal to 0 mL. The volume of parenchyma showing a Tmax greater than 6 seconds is 50 mL. Parenchyma are demonstrated Tmax greater than 8 seconds equals 14 mL, and greater than 10 seconds 9 mL. A small penumbra-like pattern is seen involving the deep white matter of the medial aspect of the bilateral frontal lobes. IMPRESSION: Penumbra-like pattern involving the deep white matter of the bilateral frontal lobes, corresponding to occlusion of the bilateral NILA. MRI brain could be of use to further evaluate. Findings were discussed with Dr. Nickerson at 7:50 PM on 07/01/[address] Babcock. Dictated by: Dictated on workstation # [id number] Dict: 07/01/221941 Trans: 07/01/222033 PJE [id number] Interpreted by: YANETH BABCOCK DO Electronically signed by: YANETH BABCOCK DO 07/01/222033 Assessment/Plan Assessment/Plan Assessment & Plan Per ER notes- The stroke neurologist at , Dr. Romero, recommended a CT angio as his encephalomalacia, seizure focus did not match the right-sided weakness that he seemed to have on presentation. He was loaded with Keppra. After CTA was done, Dr. Nickerson in ER here called [facility] and spoke with Neurologist there who recommended higher level of care with thombectomy ability. stroke neurologist Dr. Romero called again, advised patient not a TPA candidate due to time frame, reviewed CT head, CTA head/neck and CT head perfusion scan and reported he was not candidate for thrombectomy or other treatment, need to proceed with rehab and supportive care, no benefit from transfer to . Did recommend repeat KASSI. 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 Romero, recommended a CT angio as his encephalomalacia, seizure focus did not match the right-sided weakness that he seemed to have on presentation. He was loaded with Keppra. After CTA was done, Dr. Nickerson in ER here called [facility] and spoke with Neurologist there who recommended higher level of care with thombectomy ability. stroke neurologist Dr. Romero called again, advised patient not a TPA candidate due to time frame, reviewed CT head, CTA head/neck and CT head perfusion scan and reported he was not candidate for thrombectomy or other treatment, need to proceed with rehab and supportive care, no benefit from transfer to . Did recommend repeat KASSI. -Antiplatelet, PT, OT, ST, Cardiology consults 07/03- appears significantly improved, will follow up PT/OT evals for d/c recommendations 07/04- continued improvement, will consult IRF for eval (2) Seizures Status: Chronic Assessment & Plan: Loaded with Keppra in ER, was on at home, will continue. (3) COVID-19 virus infection Status: Acute Assessment & Plan: No clear respiratory issues, monitor closely. Uncertain onset given no clear symptoms. (4) CKD (chronic kidney disease) Status: Chronic (5) CAD (coronary artery disease) Status: Chronic (6) HTN (hypertension) Status: Chronic Assessment & Plan: Resume home amlodipine, will hold lisinopril as BP normal and creatinine possibly elevated from baseline. (7) Hypothyroidism (8) Bacteriuria Status: Acute Assessment & Plan: Possible UTI, received one dose of ceftriaxone, follow up culture- mixed bacteria; culture with staph epi (9) DVT prophylaxis Status: Acute Assessment & Plan: Enoxaparin KASIE PUGH MD Jul 04, 2022 14:44
[2022-07-04 17:00] VITALS: BP 132/75
[2022-07-04 19:48] VITALS: BP 135/75
[2022-07-04] MEDS: ENOXAPARIN 40 MG/0.4 ML (LOVENOX) SYR SQ SCH (20:40)
[2022-07-05 00:04] VITALS: BP 133/76
[2022-07-05 03:00] VITALS: BP 144/77
[2022-07-05 05:46] LABS: HEMATOCRIT 45 % (40-54); MEAN CORPUSCULAR HEMOGLOBIN 31 pg (25-34); MEAN CORPUSCULAR HGB CONC 33 g/dL (32-36); MEAN CORPUSCULAR VOLUME 92 fL (80-99); MEAN PLATELET VOLUME 10.4 fL (9.0-12.2); PLATELET COUNT 214 10^3/uL (130-400)
[2022-07-05 05:58] LABS: CALCIUM 9.4 MG/DL (8.5-10.1); CREATININE SERUM 2.08 MG/DL (0.60-1.30); POTASSIUM 4.6 MMOL/L (3.6-5.0)
[2022-07-05 08:17] VITALS: BP 130/74
[2022-07-05] MEDS: LEVOTHYROXINE 112 MCG (LEVOTHROID) TAB PO SCH (09:09)
[2022-07-05] MEDS: ASPIRIN 81 MG CHEW (CHILDREN'S ASA) PO SCH (09:09)
[2022-07-05] MEDS: CLOPIDOGREL 75 MG (PLAVIX) TABLET PO SCH (09:09)
[2022-07-05] MEDS: amLODIPine 10 MG (NORVASC) TAB PO SCH (09:09)
--- NOTE | 2022-07-05 09:26 | Progress Note - Cardiology ---
Cardiology SOAP Progress Note Subjective: No cp or palp or syncope No n/v/d No shortness of breath Gen weakness and malaise Objective: I&O/Vital Signs 07/05/22 07/05/22 07/05/22 07/05/22 00:04 01:00 03:00 06:10 Temp 36.7 36.6 Pulse 71 70 69 Resp 18 18 B/P (MAP) 133/76 (95) 144/77 (99) Pulse Ox 95 93 O2 Delivery Room Air Room Air Room Air O2 Flow Rate 0.00 07/05/22 07/05/22 07:00 08:17 Temp 37.0 Pulse 60 61 Resp 18 B/P (MAP) 130/74 (92) Pulse Ox 97 O2 Delivery Room Air 07/04/22 23:59 Intake Total 600 ml Output Total 800 ml Balance -200 ml Weight (Pounds): 200 Weight (Ounces): 0.0 Weight (Calculated Kilograms): 90.185017 Constitutional: AAO x 3, well-developed, well-nourished Respiratory: No accessory muscle use, No respiratory distress; chest expansion is symmetric, chest is bilaterally symmetric, lungs clear to auscultation Cardiovascular: regular rate-rhythm; No JVD; S1 and S2 Gastrointestional: No tender; soft, round, audible bowel sounds Extremities: no lower extremity edema bilateral Neurologic/Psychiatric: other (mild left upper and lower extremity weakness) Results/Procedures: Labs Laboratory Tests 07/05/22 05:32: White Blood Count 8.0, Red Blood Count 4.92, Hemoglobin 15.0, Hematocrit 45, Mean Corpuscular Volume 92, Mean Corpuscular Hemoglobin 31, Mean Corpuscular Hemoglobin Concent 33, Red Cell Distribution Width 12.9, Platelet Count 214, Mean Platelet Volume 10.4, Sodium Level 137, Potassium Level 4.6, Chloride Level 108H, Carbon Dioxide Level 21, Anion Gap 8, Blood Urea Nitrogen 34H, Creatinine 2.08H, Estimat Glomerular Filtration Rate 32, BUN/Creatinine Ratio 16, Glucose Level 90, Calcium Level 9.4 Microbiology 07/01/22 Blood Culture - Preliminary, Resulted No growth 07/01/22 Urine Culture - Preliminary, Resulted Staphylococcus epidermidis Laboratory Tests 07/04/22 05:34 07/05/22 05:32 A/P: Assessment: Syncope - undetermined etiology with ? seizure - ILR interrogation of 07/04/22 does not indicate any arrhythmia. Thus, syncope does not appear to be of cardiac origin COVID (+) - managed by medical services CVA: - CVA 05-22-21 with resultant LUE, LLE weakness, facial droop, visual dis turbance and vertigo - MRI of 05-22-21 There is a small to moderate sized area of acute infarct invo lving the inferior medial left cerebellum and lateral posterior brainstem medulla which correlates to the left vertebral artery and left PICA distribution. There is small area of acute infarct involving the high lateral posterior left frontal lobe region. Chronic cerebral infarct involving the right frontal lobe and right parietal lobe. - H/O CVA on 04/02/20 - MRI of 04/04/20: There is an acute cerebral infarct involving the right parietal lobe region with no evidence of hemorrhagic transformation, brain herniation or midline shift. Mild, persistent L hand weakness - S/p ILR on 04/04/20. No arrhythmia detected. Transmission from 07-01-2022 (prior to the event leading to this hospitalization) did not show any evidence of arrhythmia - CTA of the head on 07-01-2022 showed: New occlusion within the distal/superior aspects of the bilateral anterior cerebral arteries. Some flow is noted distal to the regions of occlusion. Stable diminutive right vertebral artery with the most superior aspect of the right vertebral artery likely occluded, unchanged from the prior examination. ED renee called [facility] and spoke with Neurologist there who recommended higher level of care with thombectomy ability. stroke neurologist Dr. Romero called again, advised patient not a TPA candidate due to time frame, reviewed CT head, CTA head/neck and CT head perfusion scan and reported he was not candidate for thrombectomy or other treatment, need to proceed with rehab and supportive care, no benefit from transfer to . Did recommend repeat KASSI. - KASSI of 03-27-22 showed no evidence of PFO. No evidence of a thrombus in the atrial cavity or appendage. No evidence of vegetation of the mitral, aortic, tricuspid and pulmonic valve. Mild MR Carotid and vertebral dz: - Minimal bilat carotid plaque per carotid u/s of May 2019 - CT angio head and neck on 05/22/21: Dominant left cervical vertebral occludes just below the skull base. The atretic small caliber right vertebral cannot be identified as patent beyond the C2 level. The cervical carotid showed calcified and soft plaque without hemodynamically significant degrees of narrowing. CAD: - Ac NSTEMI in early Jul 2018 that was treated with PCI (see below) - with h/o CABG x5 by Dr Engle at [facility] in 2009 - Cardiac cath of 07-16-18: 95% mid vessel stenosis of left anterior descending, proximal occlusion of the left circumflex, and 90-95% proximal stenosis of the right coronary artery; three out of four aortocoronary grafts (SVGs) are occluded; graft (to OM) was patent with 95% proximal stenosis and was successfully treated with Iris 3.0 x 23 mm stent; patent left internal mammary artery graft to distal left anterior descending artery; normal left ventricular end-diastolic pressure. - Last cath on 08/26/18: successful stenting of prox-to-mid RCA with Sierrra 2.25x28 mm stent. - Echocardiogram of 05-22-[address] Aguila showed LVEF 70-75%. Mod concentric hypertrophy. Paradoxical septal motion consistent with an intraventricular conduction delay. Grade 1 diastolic dysfunction. LA mild dilated. Possible PFO with tuph-ko-xphyt shunt. Mild AoV sclerosis. - KASSI of 03-27-22 showed no evidence of PFO - MPI of 02-03-21: no evidence of ischemia or infarction. LVEF 61% Acute renal failure on CKD 4: HLD: - statin tx - followed by PCP HTN: - controlled Hypothyroidism: - replacement tx - followed by PCP BPH: - h/o TURP H/o tobacco use: - quit many years ago Seizure disorder: - management per PCP - maintained on Kepra Nonspecific IVCD on ECG Plan: Complex management due to multiple comorbidities, including recurrent strokes, syncope/seizure, Covid-19, and worsening renal function Syncope does not appear to be of cardiac origin (see above). We will continue to monitor rhythm on ILR Monitor lab closely Med Svces managing Covid and stroke and renal failure BELLA SMITH MD FACP FAC CCDS Jul 05, 2022 09:26
--- NOTE | 2022-07-05 09:49 | Physical Therapy Daily Note ---
PT Daily Note-Current Subjective Patient in bed pre tx, agrees to PT, has no complaints of pain. Pain Section J - Health Conditions 1. Rarely or not at all 2. Occasionally 3. Frequently 4. Almost constantly 8. Unable to answer Pain Effect on Sleep: 1 Pain Interference with Therapy: 1 Pain Interference w/Day-to-Day: 1 Appearance Patient in bed post tx with nurse call, phone, tray, bed alarm on. Mental Status Patient Orientation: Person, Confused Attachments: Lake Catheter Transfers SCALE: Activities may be completed with or without assistive devices. 8-Gdhpqygjdg-xjsvfti completes the activity by him/herself with no assistance from a helper. 5-Set-up or Clean-up Assistance-helper sets up or cleans up; patient completes activity. [place] assists only prior to or following the activity. 4-Supervision or Touching Assistance-helper provides verbal cues and/or touching/steadying and/or contact guard assistance as patient completes activity. Assistance may be provided throughout the activity or intermittently. 3-Partial/Moderate Assistance-helper does LESS THAN HALF the effort. [place] lifts, holds or supports trunk or limbs, but provides less than half the effort. 2-Substantial/Maximal Assistance-helper does MORE THAN HALF the effort. [place] lifts or holds trunk or limbs and provides more than half the effort. 0-Nlojsnhfe-uaiskq does ALL the effort. Patient does none of the effort to complete the activity. Or, the assistance of 2 or more helpers is required for the patient to complete the activity. If activity was not attempted, code reason: 7-Patient Refused. 9-Not Applicable-not attempted and the patient did not perform the activity before the current illness, exacerbation or injury. 10-Not Attempted due to Environmental Limitations-(lack of equipment, weather restraints, etc.). 88-Not Attempted due to Medical Conditions or Safety Concerns. Roll Left & Right (QC): 6 Lying to Sitting/Side of Bed(Q: 6 Sit to Stand (QC): 4 CGA for sit to stand Gait Training Distance: 60' Walk 10 feet (QC): 4 Walk 50 ft with 2 Turns(QC): 4 Gait Assistive Device: None patient ambulated about his room for about 60', no assistive device, slightly unsteady, needs steadying assist Exercises Supine Ex: Ankle pumps, Glut sets, Heel Slides Supine Reps: 20 Treatments bed mobility, ambulation, LE ROM Assessment Current Status: Fair Progress improving general mobility, still impulsive PT Jail Goals Jail Goals PT Nutrition Services Aide Goals Time Frame: Jul 09, 2022 Roll Left & Right (QC): 3 Sit to Lying (QC): 3 Lying-Sitting on Side/Bed(QC): 3 Sit to Stand (QC): 3 Chair/Xiy-yz-Ppdcc Xfer(QC): 3 Walk 10 feet (QC): 3 PT Plan Problem List Problem List: Activity Tolerance, Functional Strength, Safety, Balance, Gait, Transfer, Bed Mobility, ROM Treatment/Plan Treatment Plan: Continue Plan of Care Treatment Plan: Bed Mobility, Education, Functional Activity Zeb, Functional Strength, Gait, Safety, Therapeutic Exercise, Transfers Treatment Duration: Jul 09, 2022 Frequency: 6 times per week Estimated Hrs Per Day: .25 hour per day Patient and/or Family Agrees t: Yes Safety Risks/Education Patient Education: Gait Training, Transfer Techniques, Correct Positioning, Safety Issues Teaching Recipient: Patient Teaching Methods: Demonstration, Discussion Response to Teaching: Reinforcement Needed Time Time In: 917 Time Out: 928 DATE: Jul 05, 2022 Total Billed Treatment Time: 11 Total Billed Treatment 1 visit FA 11' CT REBOLLEDO PT Jul 05, 2022 09:49
--- NOTE | 2022-07-05 11:49 | Occupational Ther Daily Note ---
OT Current Status-Daily Note Subjective Pt alert, lying in bed. Pt agrees to therapy. Pt is A/O though continues to be slightly impulsive. Mental Status/Objective Patient Orientation: Person, Place, Time, Situation Attachments: Lake Catheter, IV ADL-Treatment Independent with bed mobility. SBA for ambulation without AD around room 3x's. 1 LOB, pt righted self though CGA for safety. Pt stood at sink to complete oral care by self with SBA for safety. Setup for footwear. After session, pt lying in bed with call light/phone in reach. Safety measures in place. Therapy Code Descriptions/Definitions Functional [place] Measure: 0=Not Assessed/NA 4=Minimal Assistance 1=Total Assistance 5=Supervision or Setup 2=Maximal Assistance 6=Modified [place] 3=Moderate Assistance 7=Complete IndependenceSCALE: Activities may be completed with or without assistive devices. 3-Ydhgutgcgd-fqcdlka completes the activity by him/herself with no assistance from a helper. 5-Set-up or Clean-up Assistance-helper sets up or cleans up; patient completes activity. [place] assists only prior to or following the activity. 4-Supervision or Touching Assistance-helper provides verbal cues and/or touching/steadying and/or contact guard assistance as patient completes activity. Assistance may be provided throughout the activity or intermittently. 3-Partial/Moderate Assistance-helper does LESS THAN HALF the effort. [place] lifts, holds or supports trunk or limbs, but provides less than half the effort. 2-Substantial/Maximal Assistance-helper does MORE THAN HALF the effort. [place] lifts or holds trunk or limbs and provides more than half the effort. 1-Hfcilyunz-nizlqg does ALL the effort. Patient does none of the effort to complete the activity. Or, the assistance of 2 or more helpers is required for the patient to complete the activity. If activity was not attempted, code reason: 7-Patient Refused. 9-Not Applicable-not attempted and the patient did not perform the activity before the current illness, exacerbation or injury. 10-Not Attempted due to Environmental Limitations-(lack of equipment, weather restraints, etc.). 88-Not Attempted due to Medical Conditions or Safety Concerns. Oral Hygiene (QC): 4 On/Off Footwear: 5 OT [facility] Goals Radio Program Director Goals Time Frame: Jul 23, 2022 Eating (QC): 4 Oral Hygiene (QC): 4 Toileting Hygiene (QC): 3 Shower/Bathe Self (QC): 3 Upper Body Dressing (QC): 3 Lower Body Dressing (QC): 3 On/Off Footwear (QC): 3 Additional Goals: 1-Demonstrate ADL Tasks, 2-Verbalize Understanding, 3- ImproveStrength/Zeb 1=Demonstrate adherence to instructed precautions during ADL tasks. 2=Patient will verbalize/demonstrate understanding of assistive devices/modifica tions for ADL. 3=Patient will improve strength/tolerance for activity to enable patient to perform ADL's. OT Education/Plan Problem List/Assessment Assessment: Decreased Safety Aware, Impaired Funct Balance Discharge Recommendations Plan/Recommendations: Continue POC Treatment Plan/Plan of Care Patient would benefit from OT for education, treatment and training to promote independence in ADL's, mobility, safety and/or upper extremity function for ADL's. Plan of Care: ADL Retraining, Cognitive Retraining, Functional Mobility, Group Exercise/Act as Ind, UE Funct Exercise/Act, UE Neuromus Re-Ed/Coord, W/C Management Training Treatment Duration: Jul 23, 2022 Frequency: 3 times per week (3-5x/week ) Estimated Hrs Per Day: .25 hour per day Rehab Potential: Guarded Time Start Time: 11:15 Stop Time: 11:38 DATE: Jul 05, 2022 Total Time Billed (hr/min): 23 Billed Treatment Time 1 visit-ADL 1 (13 min) FA 1 (10 min) LOYD ROJAS Jul 05, 2022 11:49
[2022-07-05 11:53] VITALS: BP 121/78
--- NOTE | 2022-07-05 12:34 | Progress Note ---
Subjective Subjective/Events-last exam Pt states he is feeling well, room is a little cold, otherwise denies concerns. Objective Exam Last Set of Vital Signs Vital Signs Date Time Temp Pulse Resp B/P (MAP) Pulse Ox O2 Delivery O2 Flow Rate FiO2 07/05/22 11:53 37.0 61 18 121/78 (92) 91 Room Air 07/05/22 08:00 0.00 Capillary Refill : Less Than 3 Seconds I&O Intake and Output 07/05/22 00:00 Intake Total 600 ml Output Total 1550 ml Balance -950 ml Intake Oral 600 ml Output Urine Total 1550 ml General: Alert, Oriented X3 Psych/Mental Status: Mood NL Results/Procedures Lab Laboratory Tests 07/05/22 05:32: White Blood Count 8.0, Red Blood Count 4.92, Hemoglobin 15.0, Hematocrit 45, Mean Corpuscular Volume 92, Mean Corpuscular Hemoglobin 31, Mean Corpuscular Hemoglobin Concent 33, Red Cell Distribution Width 12.9, Platelet Count 214, Mean Platelet Volume 10.4, Sodium Level 137, Potassium Level 4.6, Chloride Level 108H, Carbon Dioxide Level 21, Anion Gap 8, Blood Urea Nitrogen 34H, Creatinine 2.08H, Estimat Glomerular Filtration Rate 32, BUN/Creatinine Ratio 16, Glucose Level 90, Calcium Level 9.4 Microbiology 07/01/22 Blood Culture - Preliminary, Resulted No growth 07/01/22 Urine Culture - Preliminary, Resulted Staphylococcus epidermidis Radiology NAME: ALAN CHURCH Peggy [facility] REC#: [id number] PT STATUS: REG ER : 1945 PHYSICIAN: MEGHNA TOLLIVER MD ADMIT DATE: 07/01/22/ER Signed Date of Exam:07/01/22 CT ANGIO HEAD/NECK PROCEDURE: CT angiography of the head and CT angiography of the neck with and without contrast. TECHNIQUE: Contiguous noncontrast images were obtained from the skull base through the vertex. After intravenous contrast administration, helical CT angiography of the neck was performed. Source data was reformatted into 3D MIP projections. Delayed post contrast acquisition was also obtained. Auto Exposure Controls were utilized during the CT exam to meet ALARA standards for radiation dose reduction. INDICATION: Weakness, mute, fall. COMPARISON: Imaging from the same date and from 05/21/2021. FINDINGS: Significant hypodensity related to encephalomalacia is again identified within the right frontal lobe and right parietal lobe as well as the high left parietal lobe, similar to older imaging. Additional encephalomalacia within the bilateral cerebellar hemispheres is again seen, similar to the prior exam. No midline shift, herniation, obstructive hydrocephalus or significant extra-axial fluid collection. No enhancing intracranial mass lesion. Background vascular calcifications. The bilateral ocular lenses are absent. The orbits are otherwise unremarkable. Small mucous retention cyst within the left maxillary sinus. The paranasal sinuses are otherwise clear. The calvarium is intact. The parapharyngeal fat is symmetric and well-maintained. The muscles of mastication are unremarkable. The salivary glands are unremarkable. No significant adenopathy within the neck. Median sternotomy. No apical pneumothorax. The thyroid gland is small in size. Retropharyngeal course of the right common carotid artery. A three-vessel aortic arch is present. Mild vascular calcifications within the right carotid bulb without hemodynamically significant stenosis. The distal right internal carotid artery is tortuous. The left A1 segment is again noted to be atretic with the dominant right A1 segment. Mild to moderate stenosis involving the cavernous portion of the left internal carotid artery. Moderate narrowing of the origin of the left vertebral artery. A dominant left vertebral artery is again identified with a diminutive right vertebral artery. Mild multifocal stenosis within the intracranial portion of the left vertebral artery. origin of the right posterior cerebral artery. 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 This appears stable from the prior examination. Right PICA appears to be supplied via the left vertebral artery. There is occlusion of the distal aspect of the bilateral anterior cerebral arteries, which appears to be new from the prior examination. Scattered osseous degenerative changes without acute osseous abnormality. 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 Some flow is noted distal to the regions of occlusion. Stable diminutive right vertebral artery with the most superior aspect of the right vertebral artery likely occluded, unchanged from the prior examination. Atretic left A1 segment with dominant right A1 segment. Mild to moderate narrowing of the cavernous portion of the left internal carotid artery, stable. Moderate narrowing involving the origin of the left vertebral artery. Additional findings as described above. The occluded distal bilateral anterior cerebral arteries is a known finding. Dictated by: Dictated on workstation # [id number] Dict: 07/01/221947 Trans: 07/01/222014 PJE [id number] Interpreted by: TEVIN CAMARGO MD Electronically signed by: TEVIN CAMARGO MD 07/01/222014 NAME: ALAN CHURCH JR [facility] REC#: [id number] PT STATUS: REG ER : 1945 PHYSICIAN: KRISTIAN NICKERSON DO ADMIT DATE: 07/01/22/ER Signed Date of Exam:07/01/22 CT HEAD PERFUSION W/ CONTRAST TECHNIQUE: CT cerebral perfusion study was performed using a dual slab technique. Post processing was performed using the RAPID software. 80 mL of Omnipaque 350 was administered. REASON FOR EXAM: Seizure. Fall. Focal neurologic deficit. Occlusion of the bilateral NILA. COMPARISON: CTA head and neck performed the same date. FINDINGS: There is mild motion artifact. The arterial inflow and venous outflow graphs are adequate. The volume of parenchyma demonstrating cerebral blood flow of less than 30% is equal to 0 mL. The volume of parenchyma showing a Tmax greater than 6 seconds is 50 mL. Parenchyma are demonstrated Tmax greater than 8 seconds equals 14 mL, and greater than 10 seconds 9 mL. A small penumbra-like pattern is seen involving the deep white matter of the medial aspect of the bilateral frontal lobes. IMPRESSION: Penumbra-like pattern involving the deep white matter of the bilateral frontal lobes, corresponding to occlusion of the bilateral NILA. MRI brain could be of use to further evaluate. Findings were discussed with Dr. Nickerson at 7:50 PM on 07/01/[address] Babcock. Dictated by: Dictated on workstation # [id number] Dict: 07/01/221941 Trans: 07/01/222033 PJE [id number] Interpreted by: YANETH BABCOCK DO Electronically signed by: YANETH BABCOCK DO 07/01/222033 Assessment/Plan Assessment/Plan Assessment & Plan Per ER notes- The stroke neurologist at , Dr. Romero, recommended a CT angio as his encephalomalacia, seizure focus did not match the right-sided weakness that he seemed to have on presentation. He was loaded with Keppra. After CTA was done, Dr. Nickerson in ER here called [facility] and spoke with Neurologist there who recommended higher level of care with thombectomy ability. stroke neurologist Dr. Romero called again, advised patient not a TPA candidate due to time frame, reviewed CT head, CTA head/neck and CT head perfusion scan and reported he was not candidate for thrombectomy or other treatment, need to proceed with rehab and supportive care, no benefit from transfer to . Did recommend repeat KASSI. 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 Romero, recommended a CT angio as his encephalomalacia, seizure focus did not match the right-sided weakness that he seemed to have on presentation. He was loaded with Keppra. After CTA was done, Dr. Nickerson in ER here called [facility] and spoke with Neurologist there who recommended higher level of care with thombectomy ability. stroke neurologist Dr. Romero called again, advised patient not a TPA c andidate due to time frame, reviewed CT head, CTA head/neck and CT head perfusion scan and reported he was not candidate for thrombectomy or other treatment, need to proceed with rehab and supportive care, no benefit from transfer to . Did recommend repeat KASSI. -Antiplatelet, PT, OT, ST, Cardiology consults /- appears significantly improved, will follow up PT/OT evals for d/c recommendations 07/04- continued improvement, will consult IRF for eval 07/05- insurance pending related to IRF, continues to improve (2) Seizures Status: Chronic Assessment & Plan: Loaded with Keppra in ER, was on at home, will continue. (3) COVID-19 virus infection Status: Acute Assessment & Plan: No clear respiratory issues, monitor closely. Uncertain onset given no clear symptoms. (4) CKD (chronic kidney disease) Status: Chronic (5) CAD (coronary artery disease) Status: Chronic (6) HTN (hypertension) Status: Chronic Assessment & Plan: Resume home amlodipine, will hold lisinopril as BP normal and creatinine possibly elevated from baseline. (7) Hypothyroidism (8) Bacteriuria Status: Acute Assessment & Plan: Possible UTI, received one dose of ceftriaxone, follow up culture- mixed bacteria; culture with staph epi (9) DVT prophylaxis Status: Acute Assessment & Plan: Enoxaparin KASIE PUGH MD Jul 05, 2022 12:34
[2022-07-05 13:37] LABS: HEMATOCRIT 45 % (40-54); HEMOGLOBIN 15.1 g/dL (13.3-17.7); MEAN CORPUSCULAR HEMOGLOBIN 31 pg (25-34); MEAN CORPUSCULAR HGB CONC 34 g/dL (32-36); MEAN CORPUSCULAR VOLUME 91 fL (80-99); PLATELET COUNT 219 10^3/uL (130-400); WHITE BLOOD COUNT 6.7 10^3/uL (4.3-11.0)
[2022-07-05 15:43] VITALS: BP 132/73
[2022-07-05 19:10] VITALS: BP 126/80
[2022-07-05] MEDS: ENOXAPARIN 40 MG/0.4 ML (LOVENOX) SYR SQ SCH (20:32)
[2022-07-06 00:05] VITALS: BP 152/84
[2022-07-06 04:50] VITALS: BP 145/84
[2022-07-06 05:44] LABS: CALCIUM 9.2 MG/DL (8.5-10.1); CREATININE SERUM 2.09 MG/DL (0.60-1.30); POTASSIUM 4.5 MMOL/L (3.6-5.0)
[2022-07-06 07:54] VITALS: BP 129/82
[2022-07-06] MEDS: LEVOTHYROXINE 112 MCG (LEVOTHROID) TAB PO SCH (09:57)
[2022-07-06] MEDS: ASPIRIN 81 MG CHEW (CHILDREN'S ASA) PO SCH (09:57)
[2022-07-06] MEDS: amLODIPine 10 MG (NORVASC) TAB PO SCH (09:57)
[2022-07-06] MEDS: CLOPIDOGREL 75 MG (PLAVIX) TABLET PO SCH (09:57)
--- NOTE | 2022-07-06 10:52 | Physical Therapy Daily Note ---
PT Daily Note-Current Subjective Patient in bed pre tx, agrees to PT, has no complaints of pain. Pain Section J - Health Conditions 1. Rarely or not at all 2. Occasionally 3. Frequently 4. Almost constantly 8. Unable to answer Pain Effect on Sleep: 1 Pain Interference with Therapy: 1 Pain Interference w/Day-to-Day: 1 Appearance Patient in recliner post tx with nurse call, phone, tray, all needs met. Mental Status Patient Orientation: Person, Place, Situation Transfers SCALE: Activities may be completed with or without assistive devices. 1-Ijmplxzddr-uveqhqo completes the activity by him/herself with no assistance from a helper. 5-Set-up or Clean-up Assistance-helper sets up or cleans up; patient completes activity. [place] assists only prior to or following the activity. 4-Supervision or Touching Assistance-helper provides verbal cues and/or touching/steadying and/or contact guard assistance as patient completes activity. Assistance may be provided throughout the activity or intermittently. 3-Partial/Moderate Assistance-helper does LESS THAN HALF the effort. [place] lifts, holds or supports trunk or limbs, but provides less than half the effort. 2-Substantial/Maximal Assistance-helper does MORE THAN HALF the effort. [place] lifts or holds trunk or limbs and provides more than half the effort. 1-Ermhyhoxr-devqbl does ALL the effort. Patient does none of the effort to complete the activity. Or, the assistance of 2 or more helpers is required for the patient to complete the activity. If activity was not attempted, code reason: 7-Patient Refused. 9-Not Applicable-not attempted and the patient did not perform the activity before the current illness, exacerbation or injury. 10-Not Attempted due to Environmental Limitations-(lack of equipment, weather restraints, etc.). 88-Not Attempted due to Medical Conditions or Safety Concerns. Roll Left & Right (QC): 6 Lying to Sitting/Side of Bed(Q: 6 Sit to Stand (QC): 6 Chair/Rha-vu-Rzstl Xfer(QC): 6 Gait Training Distance: 60' Walk 10 feet (QC): 6 Walk 50 ft with 2 Turns(QC): 6 Gait Assistive Device: None brisk, steady ambulation, no LOB Exercises Standing: Heel/toe raises, Marching Standing Reps: 15 (no support) good balance with exercises Treatments ambulation, LE exercise Assessment Current Status: Fair Progress Patient is now independent with ambulation and transfers. He will be discharged from PT at this time. Encouraged patient to ambulate in his room several times a day to keep up his strength and endurance. PT Rehabilitation Construction Specialist Goals Rehabilitation Construction Specialist Goals PT Correction Goals Time Frame: Jul 09, 2022 Roll Left & Right (QC): 3 Sit to Lying (QC): 3 Lying-Sitting on Side/Bed(QC): 3 Sit to Stand (QC): 3 Chair/Bjv-lt-Pkqny Xfer(QC): 3 Walk 10 feet (QC): 3 PT Plan Treatment/Plan Treatment Plan: Discontinue PT Treatment Plan: Bed Mobility, Education, Functional Activity Zeb, Functional Strength, Gait, Safety, Therapeutic Exercise, Transfers Treatment Duration: Jul 09, 2022 Frequency: 6 times per week Estimated Hrs Per Day: .25 hour per day Patient and/or Family Agrees t: Yes Safety Risks/Education Patient Education: Gait Training, Transfer Techniques, Correct Positioning, Safety Issues Teaching Recipient: Patient Teaching Methods: Demonstration, Discussion Response to Teaching: Verbalize Understanding, Return Demonstration Discharge Recommendations Plan DC Time Time In: 1022 Time Out: 1030 DATE: Jul 06, 2022 Total Billed Treatment Time: 8 Total Billed Treatment [address] SUN PT Jul 06, 2022 10:52
[2022-07-06 11:14] VITALS: BP 138/88
--- NOTE | 2022-07-06 14:08 | Occupational Ther Daily Note ---
OT Current Status-Daily Note Subjective Pt alert, lying in bed. Pt agrees to therapy. No c/o pain. Pt states that he wants to go home. Mental Status/Objective Patient Orientation: Person, Place, Time, Situation ADL-Treatment Therapy Code Descriptions/Definitions Functional [place] Measure: 0=Not Assessed/NA 4=Minimal Assistance 1=Total Assistance 5=Supervision or Setup 2=Maximal Assistance 6=Modified [place] 3=Moderate Assistance 7=Complete IndependenceSCALE: Activities may be completed with or without assistive devices. 3-Xdyvmdibry-zabelsc completes the activity by him/herself with no assistance from a helper. 5-Set-up or Clean-up Assistance-helper sets up or cleans up; patient completes activity. [place] assists only prior to or following the activity. 4-Supervision or Touching Assistance-helper provides verbal cues and/or touching/steadying and/or contact guard assistance as patient completes activity. Assistance may be provided throughout the activity or intermittently. 3-Partial/Moderate Assistance-helper does LESS THAN HALF the effort. [place] lifts, holds or supports trunk or limbs, but provides less than half the effort. 2-Substantial/Maximal Assistance-helper does MORE THAN HALF the effort. [place] lifts or holds trunk or limbs and provides more than half the effort. 4-Jbyaumjcz-gmlqdl does ALL the effort. Patient does none of the effort to complete the activity. Or, the assistance of 2 or more helpers is required for the patient to complete the activity. If activity was not attempted, code reason: 7-Patient Refused. 9-Not Applicable-not attempted and the patient did not perform the activity before the current illness, exacerbation or injury. 10-Not Attempted due to Environmental Limitations-(lack of equipment, weather restraints, etc.). 88-Not Attempted due to Medical Conditions or Safety Concerns. Eating (QC): 6 Other Treatment Pt completes B UE arm exercises in standing with SBA. Pt has tendency to lean L when standing, pc required for pt to maintain midline. Pt completed light resistance theraband exercises 2 sets 10 reps of 4 exercises with pc for correct technique. Pt demonstrates weakness on L side though is able to complete full AROM with slight resistance. Pt independent with eating. After session, pt sitting on EOB with call light/phone in reach. All needs met in room. OT Machine Design Engineer Goals Machine Design Engineer Goals Time Frame: Jul 23, 2022 Eating (QC): 4 Oral Hygiene (QC): 4 Toileting Hygiene (QC): 3 Shower/Bathe Self (QC): 3 Upper Body Dressing (QC): 3 Lower Body Dressing (QC): 3 On/Off Footwear (QC): 3 Additional Goals: 1-Demonstrate ADL Tasks, 2-Verbalize Understanding, 3- ImproveStrength/Zeb 1=Demonstrate adherence to instructed precautions during ADL tasks. 2=Patient will verbalize/demonstrate understanding of assistive devices/modifications for ADL. 3=Patient will improve strength/tolerance for activity to enable patient to perform ADL's. OT Education/Plan Problem List/Assessment Assessment: Decreased Activ Tolerance, Decreased Safety Aware, Decreased UE Strength, Impaired Coordination, Impaired Funct Balance Discharge Recommendations Plan/Recommendations: Continue POC Treatment Plan/Plan of Care Patient would benefit from OT for education, treatment and training to promote independence in ADL's, mobility, safety and/or upper extremity function for ADL's. Plan of Care: ADL Retraining, Cognitive Retraining, Functional Mobility, Group Exercise/Act as Ind, UE Funct Exercise/Act, UE Neuromus Re-Ed/Coord, W/C Management Training Treatment Duration: Jul 23, 2022 Frequency: 3 times per week (3-5x/week ) Estimated Hrs Per Day: .25 hour per day Rehab Potential: Guarded Time Start Time: 11:33 Stop Time: 11:49 DATE: Jul 06, 2022 Total Time Billed (hr/min): 16 Billed Treatment Time 1 visit-EX 1 (16 min) LOYD ROJAS Jul 06, 2022 14:08
--- NOTE | 2022-07-06 15:06 | Discharge Summary ---
Discharge Summary Hospital Course Problems/Diagnosis: (1) Cerebral infarction due to bilateral occlusion of anterior cerebral arteries Status: Acute Assessment & Plan: Per ER notes- The stroke neurologist at , Dr. Romero, recommended a CT angio as his encephalomalacia, seizure focus did not match the right-sided weakness that he seemed to have on presentation. He was loaded with Keppra. After CTA was done, Dr. Nickerson in ER here called [facility] and spoke with Neurologist there who recommended higher level of care with thombectomy ability. stroke neurologist Dr. Romero called again, advised patient not a TPA candidate due to time frame, reviewed CT head, CTA head/neck and CT head perfusion scan and reported he was not candidate for thrombectomy or other treatment, need to proceed with rehab and supportive care, no benefit from transfer to . Did recommend repeat KASSI. -Antiplatelet, PT, OT, ST, Cardiology consults 07/03- appears significantly improved, will follow up PT/OT evals for d/c recommendations 07/04- continued improvement, will consult IRF for eval 07/05- insurance pending related to IRF, continues to improve 07/06- pt ambulating independently, no longer needing PT, able to discharge to home. (2) Seizures Status: Chronic Assessment & Plan: Loaded with Keppra in ER, was on at home, will continue. (3) COVID-19 virus infection Status: Acute Assessment & Plan: No clear respiratory issues, monitor closely. Uncertain onset given no clear symptoms. (4) CKD (chronic kidney disease) Status: Chronic (5) CAD (coronary artery disease) Status: Chronic (6) HTN (hypertension) Status: Chronic Assessment & Plan: Resume home amlodipine, will hold lisinopril as BP normal and creatinine elevated from baseline. (7) Hypothyroidism (8) Bacteriuria Status: Acute Assessment & Plan: Possible UTI, received one dose of ceftriaxone, follow up culture- mixed bacteria; culture with staph epi Hospital Course Date of Admission: Jul 02, 2022 at 08:52 Admission Diagnosis : Family Physician/Provider: [facility] Date of Discharge: 07/06/22 Discharge Diagnosis: See problem list Hospital Course: See problem list Labs and Pending Lab Test: Laboratory Tests 07/06/22 05:08: Sodium Level 139, Potassium Level 4.5, Chloride Level 109H, Carbon Dioxide Level 22, Anion Gap 8, Blood Urea Nitrogen 36H, Creatinine 2.09H, Estimat Glomerular Filtration Rate 32, BUN/Creatinine Ratio 17, Glucose Level 94, Calcium Level 9.2 Microbiology 07/01/22 Blood Culture - Preliminary, Resulted No growth 07/01/22 Urine Culture - Preliminary, Resulted Staphylococcus epidermidis Staphylococcus epidermidis#2 Testing In Progress Home Meds Active Reported Fish Oil 1,000 mg Softgel ([place]-3/Dha/Epa/Fish Oil) 1,000 Mg (120 Mg-180 Mg) Capsule 1,000 Mg PO DAILY Cetirizine HCl 10 Mg Tablet 10 Mg PO DAILY PRN Melatonin 5 Mg Tablet 5 Mg PO HS Vitamin D3 (Cholecalciferol (Vitamin D3)) 25 Mcg (1000 Unit) Tablet 25 Mcg PO DAILY Levetiracetam 500 Mg Tablet 500 Mg PO BID Multivitamin 1 Each Tablet 1 Each PO DAILY Clopidogrel (Clopidogrel Bisulfate) 75 Mg Tablet 75 Mg PO DAILY Allopurinol 100 Mg Tablet 50 Mg PO DAILY TAKES OF A 100MG TAB LAST FILLED 10/25/2021 #45 90 DAY SUPPLY Atorvastatin Calcium 80 Mg Tablet 80 Mg PO DAILY Aspirin 81 Mg Tab.chew 81 Mg PO DAILY Amlodipine Besylate 10 Mg Tablet 10 Mg PO DAILY Levothyroxine Sodium 112 Mcg Tablet 112 Mcg PO DAILY Assessment/Pt DC Instructions Follow up with primary provider within a week of discharge. Discharge Diet: Cardiac Diet Activity as Tolerated: Yes Discharge Physical Examination Allergies: Coded Allergies: No Known Drug Allergies (Unverified , 03/27/22) General Appearance: No Apparent Distress, WD/WN Respiratory: Lungs Clear, Normal Breath Sounds Cardiovascular: Regular Rate, Rhythm Skin: Warm/Dry Neurologic/Psychiatric: Alert, Normal Mood/Affect KASIE PUGH MD Jul 06, 2022 15:06
[2022-07-06 16:04] VITALS: BP 122/73
== END 2022-07-06 16:28 | disposition home or self-care (01) | DRG 64 ==
LOC: EDUNIT# 15:58 → ER 15:59 → CSD 07-02 08:52 → 4TH 07-04 12:10
PROVIDERS: ADMIT Family Medicine; ATTEND Family Medicine
PROC: 8E0ZXY6 Isolation (ICD-10-PCS; principal; 2022-07-02)
DX: I63.523 Cerebral infarction due to unspecified occlusion or stenosis of bilateral anterior cerebral arteries (principal); U07.1 COVID-19; G81.94 Hemiplegia, unspecified affecting left nondominant side; N17.9 Acute kidney failure, unspecified; N18.4 Chronic kidney disease, stage 4 (severe); I25.10 Atherosclerotic heart disease of native coronary artery without angina pectoris; I12.9 Hypertensive chronic kidney disease with stage 1 through stage 4 chronic kidney disease, or unspecified chronic kidney disease; E03.9 Hypothyroidism, unspecified; R82.71 Bacteriuria; Z95.1 Presence of aortocoronary bypass graft; Z95.5 Presence of coronary angioplasty implant and graft; M10.9 Gout, unspecified; E78.5 Hyperlipidemia, unspecified; Z79.82 Long term (current) use of aspirin; Z79.899 Other long term (current) drug therapy; R29.713 NIHSS score 13; M48.9 Spondylopathy, unspecified; I25.2 Old myocardial infarction; N40.0 Benign prostatic hyperplasia without lower urinary tract symptoms; Z87.891 Personal history of nicotine dependence; G40.909 Epilepsy, unspecified, not intractable, without status epilepticus
CPT/HCPCS: 0042T; 36415; 51702; 70450; 70496; 70498; 71045; 80048; 80053; 80061; 81000; 82947; 83605; 84145; 84484; 85025; 85027; 85379; 85610; 85730; 87040; 87077; 87088; 87186; 87636; 93005; 93041

== ENCOUNTER 2022-08-09 13:04 | Emergency (ER) | payer MEDICARE ==
[~2022-08-09 13:04] MED LIST changes: +CETI10TA17 PO; +MELA5TAB14 PO; +OMEG100032 PO
[2022-08-09] MEDS ORDERED: HOLD METFORMIN - RECEIVED CONTRAST 20 ML VIAL IV SCH (13:15)
[2022-08-09] MEDS ORDERED: NS 100 ML (IVPB) BAG IV ONE (13:15)
[2022-08-09] MEDS ORDERED: IOHEXOL 350 MG/ML 100 ML (OMNIPAQUE 350) VIAL IV ONE (13:15)
--- NOTE | 2022-08-09 13:23 | Diagnostic Imaging Report ---
PROCEDURE: CT head wo r/o stroke. TECHNIQUE: Multiple contiguous axial images were obtained through the brain without the use of intravenous contrast. Auto Exposure Controls were utilized during the CT exam to meet ALARA standards for radiation dose reduction. INDICATION: Right-sided weakness and unresponsive. Comparison is made with prior head CT from 07/01/2022. Small areas of encephalomalacia in bilateral cerebellar hemispheres are noted, similar to prior. A moderate-sized area of encephalomalacia in the right frontal and right parietal lobe are noted, unchanged from prior exam consistent with prior infarcts. Overall ventricular size and sulcal pattern are stable. There is no sulcal effacement or midline shift. No acute intra-axial or extra-axial hemorrhage is detected. There is an area of low density adjacent to the left frontal horn in the region of the caudate consistent with prior infarct. Cisterns are patent. Visualized paranasal sinuses are clear. IMPRESSION: Chronic changes. No acute intracranial process is detected. Dictated by: Dictated on workstation # [id number]
--- NOTE | 2022-08-09 13:27 | ED Neurological Problem ---
General Stated Complaint: STROKE History of Present Illness Date Seen by Provider: Aug 09, 2022 Time Seen by Provider: 13:10 Initial Comments 77 year old male brought by EMS for possible stroke. Last known well time was 1207 today. reports he awoke at 11:30 am today, went to bathroom and was talking to her. He has some chronic changes in his gait, since last CVA early Jul 02, 2022 and May 21, 2022. Otherwise, no focal deficits this am. At 12:07pm she found him sitting in chair slumping to right side and non-verbal. He was unable to follow any commands or answer any questions. She called 911 and he was brought here, taken directly to CT. No acute changes on inital CT, so CT [place] of head and neck completed. Timing/Duration: 1 hour Severity: moderate Associated Symptoms: confusion; No loss of consciousness, No muscle spasms, No nausea/vomiting, No numbness in legs/feet, No seizures; trouble walking, weakness (Right UE, Bilat LEs) (ISABEL SANTACRUZ) Allergies and Home Medications Allergies Coded Allergies: No Known Drug Allergies (Unverified , 03/27/22) Patient Home Medication List Home Medication List Reviewed: Yes (ISABEL SANTACRUZ) Allopurinol (Allopurinol) 100 Mg Tablet, 50 MG PO DAILY, (Reported) Entered as Reported by: KARRI CONTI on 09/15/20952 Amlodipine Besylate (Amlodipine Besylate) 10 Mg Tablet, 10 MG PO DAILY, (Reported) Entered as Reported by: FLOR BRICEÑO on 08/26/18 07 Aspirin (Aspirin) 81 Mg Tab.chew, 81 MG PO DAILY, (Reported) Entered as Reported by: FLOR BRICEÑO on 08/26/18 07 Atorvastatin Calcium (Atorvastatin Calcium) 80 Mg Tablet, 80 MG PO DAILY, (Reported) Entered as Reported by: KARRI CONTI on 09/15/20 09 Cetirizine HCl (Cetirizine HCl) 10 Mg Tablet, 10 MG PO DAILY PRN for ALLERGY SYMPTOMS, (Reported) Entered as Reported by: KARRI CONTI on 07/03/22 1607 Cholecalciferol (Vitamin D3) (Vitamin D3) 25 Mcg (1000 Unit) Tablet, 25 MCG PO DAILY, (Reported) Entered as Reported by: GIOVANNA CURRAN on 03/27/22 0833 Clopidogrel Bisulfate (Clopidogrel) 75 Mg Tablet, 75 MG PO DAILY, (Reported) Entered as Reported by: KARRI CONTI on 09/15/20 0953 Levetiracetam (Levetiracetam) 500 Mg Tablet, 500 MG PO BID, (Reported) Entered as Reported by: KARRI CONTI on 05/22/21 0904 Levothyroxine Sodium (Levothyroxine Sodium) 112 Mcg Tablet, 112 MCG PO DAILY, (Reported) Entered as Reported by: ROBERTO ROSADO on 12/05/17 1200 Melatonin (Melatonin) 5 Mg Tablet, 5 MG PO HS, (Reported) Entered as Reported by: KARRI CONTI on 07/03/22 1607 Multivitamin (Multivitamin) 1 Each Tablet, 1 EACH PO DAILY, (Reported) Entered as Reported by: KARRI CONTI on 09/15/20 0953 [place]-3/Dha/Epa/Fish Oil (Fish Oil 1,000 mg Softgel) 1,000 Mg (120 Mg-180 Mg) Capsule, 1,000 MG PO DAILY, (Reported) Entered as Reported by: KARRI CONTI on 07/03/22 1607 Review of Systems Review of Systems Constitutional: see HPI, weakness Eyes: No Symptoms Reported, See HPI Ears, Nose, Mouth, Throat: no symptoms reported, see HPI Respiratory: no symptoms reported, see HPI, phlegm (chronic per ) Cardiovascular: no symptoms reported, see HPI Gastrointestinal: no symptoms reported Genitourinary: no symptoms reported, see HPI Musculoskeletal: no symptoms reported, see HPI Skin: no symptoms reported, see HPI Psychiatric/Neurological: No Symptoms Reported, See HPI (ISABEL SANTACRUZ) All Other Systems Reviewed Negative Unless Noted: Yes (ISABEL SANTACRUZ) Past Wetfayx-Hwfzmc-Hshxwu Hx Patient Social History Tobacco Use?: No (ISABEL SANTACRUZ) Immunizations Up To Date Tetanus Booster (TDap): Unknown PED Vaccines UTD: Yes First/Initial COVID19 Vaccinat: 08-27-20 Second COVID19 Vaccination Talib: AUGUST 2020 Third COVID19 Vaccination Date: MAY 2021 (ISABEL SANTACRUZ) Seasonal Allergies Seasonal Allergies: No (ISABEL SANTACRUZ) Past Medical History Surgery/Hospitalization HX: HX SEIZURES, STROKE Surgeries: Yes (hernia, ) Abdominal, CABG, Coronary Stent, Orthopedic Respiratory: No Cardiac: Yes Coronary Artery Disease, Hypertension Neurological: No Stroke Genitourinary: No Renal Failure Gastrointestinal: No Musculoskeletal: No Endocrine: Yes Hypothyroidsim HEENT: No Cataract Loss of Vision: Denies Hearing Impairment: Denies Cancer: No Psychosocial: No Integumentary: No (ISABEL SANTACRUZ) Family Medical History Reviewed Nursing Family Hx (ISABEL SANTACRUZ) Cardiovascular disease 19 FATHER 19 MOTHER (CONGESTIVE HEART FAILURE) Diabetes mellitus 19 MOTHER FH: breast cancer 19 MOTHER Myocardial infarction 19 FATHER Physical Exam Vital Signs Vital Signs - First Documented 08/09/22 13:10 Temp 36.2 Pulse 81 Resp 20 B/P (MAP) 168/92 (117) (SHEN CLEANING MD) Vital Signs Capillary Refill : (ISABEL SANTACRUZ) Height, Weight, BMI Height: 5'9.00" Weight: 200lbs. 0.0oz. [id number]; 30.18 BMI Method:Stated General Appearance: mild distress HEENT: TMs normal, pharynx normal, other (Gag Reflex intact) Neck: non-tender, normal inspection Respiratory: chest non-tender, lungs clear, normal breath sounds Cardiovascular: normal peripheral pulses, regular rate, rhythm Gastrointestinal: normal bowel sounds, non tender, soft, distended Extremities: non-tender, no pedal edema, normal capillary refill Neurologic/Psychiatric: alert; No normal mood/affect, No oriented x 3 Crainal Nerves: No normal speech, No PERRL; abnormal speech, facial asymmetry, facial droop (right), facial weakness, gaze palsy (to left) Coordination/Gait: No normal finger to nose, No normal gait Motor/Sensory: negative Babinski's sign, weak motor strength RUE; No weak motor strength LUE; weak motor strength RLE, weak motor strength LLE Skin: normal color, warm/dry (ISABEL SANTACRZU) Stroke Onset of Symptoms Date of Onset of Symptoms: Aug 09, 2022 Time of Symptom Onset: 12:07 Onset of Symptoms: Yes ( present) (ISABEL SANTACRUZ) NIH Stroke Scale Assessment Select: Initial Due to aphasia and inability to follw commands, decreased accuracy of NIH Level of Consciousness: 1=Aroused by mild stimuli (1), Level of Consciousness-Questions: 2=Answer neither question (2), LOC Commands: 1=Performs one task (1), Gaze: Partial Gaze Palsy (1), Visual Hu: 0=No visual loss (0), Facial Movement (Facial Paresis): 2=Partial paralysis (2), Motor Function-Arms Right: 4=No movement (4), Motor Function-Arms Left: 0=No drift (0), Motor Function-Legs Right: 2=Some effort/gravity (2), Motor Function-Legs Left: 2=Some effort/gravity (2), Limb Ataxia: 0=Absent (0), Sensory: 0=Normal:no loss (0), Best Language: 3=Mute (3), Dysarthria: 1=Mild to moderate loss (1), Extinction & Inattention: 1=Visual,tactile,auditory (1), Total: 20 Stroke Thrombolytic Exclusion Age 18 or Over: Yes Acute intenal hemorrhage: No History of CVA: Yes Uncontrolled Coagulation Defec: No Intracranial Hemorrhage: No Severe Hypertension: No GI or Bleed: No Subarachnoid Hemorrhage: No Intracranial Neoplasm/Aneurysm: No Oral Anticoagulants: Yes Surgery or Trauma: No Puncture of Non-Compressible V: No Recent CPR: No Diabetic Hemorrhagic Retinopat: No Organ Biopsy: No Recent Obstetric Delivery: No Glucose: No Significant Hepatic Dysfunctio: No NIH Stoke Scale >22: No Bacterial Endocarditis: No Pericarditis: No Improving Symptoms: No Platelets: No (ISABEL SANTACRUZ) Progress/Results/Core Measures Results/Orders Lab Results Laboratory Tests Test 08/09/22 13:54 08/09/22 14:15 Range/Units White Blood Count 7.0 4.3-11.0 10^3/uL Red Blood Count 5.51 4.30-5.52 10^6/uL Hemoglobin 16.8 13.3-17.7 g/dL Hematocrit 51 40-54 % Mean Corpuscular Volume 93 80-99 fL Mean Corpuscular Hemoglobin 31 25-34 pg Mean Corpuscular Hemoglobin Concent 33 32-36 g/dL Red Cell Distribution Width 13.2 10.0-14.5 % Platelet Count 245 130-400 10^3/uL Mean Platelet Volume 10.6 9.0-12.2 fL Immature Granulocyte % (Auto) 0 % Neutrophils (%) (Auto) 67 42-75 % Lymphocytes (%) (Auto) 18 12-44 % Monocytes (%) (Auto) 11 0-12 % Eosinophils (%) (Auto) 4 0-10 % Basophils (%) (Auto) 1 0-10 % Neutrophils # (Auto) 4.7 1.8-7.8 10^3/uL Lymphocytes # (Auto) 1.3 1.0-4.0 10^3/uL Monocytes # (Auto) 0.7 0.0-1.0 10^3/uL Eosinophils # (Auto) 0.3 0.0-0.3 10^3/uL Basophils # (Auto) 0.1 0.0-0.1 10^3/uL Immature Granulocyte # (Auto) 0.0 0.0-0.1 10^3/uL Prothrombin Time 13.8 12.2-14.7 SEC INR Comment 1.0 0.8-1.4 Activated Partial Thromboplast Time 26 24-35 SEC D-Dimer 1.42 H 0.00-0.49 UG/ML Sodium Level 141 135-145 MMOL/L Potassium Level 4.3 3.6-5.0 MMOL/L Chloride Level 109 H 98-107 MMOL/L Carbon Dioxide Level 21 21-32 MMOL/L Anion Gap 11 5-14 MMOL/L Blood Urea Nitrogen 24 H 7-18 MG/DL Creatinine 1.83 H 0.60-1.30 MG/DL Estimat Glomerular Filtration Rate 38 BUN/Creatinine Ratio 13 Glucose Level 109 H 70-105 MG/DL Calcium Level 9.5 8.5-10.1 MG/DL Corrected Calcium 9.8 8.5-10.1 MG/DL Total Bilirubin 0.7 0.1-1.0 MG/DL Aspartate Amino Transf (AST/SGOT) 21 5-34 U/L Alanine Aminotransferase (ALT/SGPT) 21 0-55 U/L Alkaline Phosphatase 134 40-136 U/L Troponin I < 0.028 <0.028 NG/ML Total Protein 6.7 6.4-8.2 GM/DL Albumin 3.6 3.2-4.5 GM/DL Urine Color YELLOW Urine Clarity CLEAR Urine pH 6.0 5-9 Urine Specific [place] 1.015 L 1.016-1.022 Urine Protein 2+ H NEGATIVE Urine Glucose (UA) NEGATIVE NEGATIVE Urine Ketones NEGATIVE NEGATIVE Urine Nitrite NEGATIVE NEGATIVE Urine Bilirubin NEGATIVE NEGATIVE Urine Urobilinogen 0.2 < = 1.0 MG/DL Urine Leukocyte Esterase NEGATIVE NEGATIVE Urine RBC (Auto) NEGATIVE NEGATIVE Urine RBC RARE /HPF Urine WBC NONE /HPF Urine Crystals NONE /LPF Urine Bacteria NEGATIVE /HPF Urine Casts NONE /LPF Urine Mucus NEGATIVE /LPF Urine Culture Indicated NO (SHEN CLEANING MD) Vital Signs/I&O 08/09/22 08/09/22 13:10 14:54 Temp 36.2 36.2 Pulse 81 86 Resp 20 20 B/P (MAP) 168/92 (117) 183/99 (SHEN CLEANING MD) Progress Progress Note : Time: 13:10 Progress Note patient evaluated while transported to Radiology. CT head immediately, no acute findings, will proceed to CT angio head and neck. Initial assessment completed on CT table, NIH 20-22, difficult because not able to follow commands and non verbal. 1350 Spoke with radiology about CT Angio. Discussed with . Having some unintentional movement in right UE. Continues with aphasia. wants TPA or transfer to higher level of care based on Stroke recommendations. 1400 Call to Stroke, diagnostic images clouded to [address] Pillai at Stroke. No TPA with 2 CVAs in last 3 months. Recommended transfer to [facility] for thrombectomy. Spoke to , she is agreeable. Room [facility] 2nd Floor, North Elevator. 1420 RN spoke to [facility], 20 min ETA. Report called to [facility] RN. 1430 family left, to drive to . Patient essentially unchanged, opened mouth to speak but unable. Continues to have Right sided weakness and facial dropping right. 1438 [facility] arrived, report given. 1455 [facility] (ISABEL SANTACRUZ) Initial ECG Impression Date: Aug 09, 2022 Initial ECG Impression Time: 13:38 Initial ECG Rate: 82 Initial ECG Intervals Artifact noted on EKG QRST 107, QT 387, QTc 452. [place] P1, QRS 46, T72. (ISABEL SANTACRUZ) Diagnostic Imaging Diagonstic Imaging: CT Plain Films/CT/US/NM/MRI: head Comments NAME: ALAN CHURCH [facility] REC#: [id number] PT STATUS: REG ER : 1945 PHYSICIAN: ISABEL SANTACRUZ ADMIT DATE: 08/09/22/ER Draft Date of Exam:08/09/22 CT HEAD WO-R/O STROKE PROCEDURE: CT head wo r/o stroke. TECHNIQUE: Multiple contiguous axial images were obtained through the brain without the use of intravenous contrast. Auto Exposure Controls were utilized during the CT exam to meet ALARA standards for radiation dose reduction. INDICATION: Right-sided weakness and unresponsive. Comparison is made with prior head CT from 07/01/2022. Small areas of encephalomalacia in bilateral cerebellar hemispheres are noted, similar to prior. A moderate-sized area of encephalomalacia in the right frontal and right parietal lobe are noted, unchanged from prior exam consistent with prior infarcts. Overall ventricular size and sulcal pattern are stable. There is no sulcal effacement or midline shift. No acute intra-axial or extra-axial hemorrhage is detected. There is an area of low density adjacent to the left frontal horn in the region of the caudate consistent with prior infarct. Cisterns are patent. Visualized paranasal sinuses are clear. IMPRESSION: Chronic changes. No acute intracranial process is detected. Dictated on workstation # [id number] Dict: 08/09/22 1318 Trans: 08/09/22 1323 [facility] [id number] Interpreted by: YANIRA HUYNH MD Electronically signed by: Reviewed: Reviewed by Me, Discussed w/Radiologist Diagonstic Imaging: CT (angio) Plain Films/CT/US/NM/MRI: c-spine, head Comments NAME: ALAN CHURCH [facility] REC#: [id number] PT STATUS: REG ER : 1945 PHYSICIAN: ISABEL SANTACRUZ ADMIT DATE: 08/09/22/ER Draft Date of Exam:08/09/22 CT ANGIO HEAD/NECK CLINICAL INDICATION: Patient with right-sided weakness and unresponsive. Patient has history of stroke. EXAMS: 1: Head CT with and without IV contrast. Auto Exposure Controls were utilized during the CT exam to meet ALARA standards for radiation dose reduction. 2: CT angiogram of the head and neck performed with 100 cc of Omnipaque 350 IV contrast. Sagittal and coronal MIP reformations were created for better visualization of vascular anatomy. CT angiogram was post-processed using RAPID LVO detection to include quantitative measurements of cerebral blood flow and automated results notification to the stroke and/or neurointerventional team. COMPARISON: Head CT without contrast dated 08/09/2022. Head CT without contrast dated 07/01/2022. FINDINGS: Head CT: There is a small area of low density involving the left caudate head and left basal ganglia region anteriorly which is more accentuated on this postcontrast sequence. This may represent an acute or subacute infarct. This was not seen on the prior head CT dated 07/01/2022. Again seen moderate chronic cerebral infarct involving the right frontal lobe and right parietal lobe region. Again seen patchy areas of low density involving both cerebral hemispheres, likely related to chronic ischemic changes. Stable small chronic infarct involving the posterior left frontoparietal region. There is no abnormal IV contrast enhancement seen. There is no hydrocephalus, brain herniation or midline shift. The remainder of this exam shows no significant interval change compared to the most recent prior study of comparison. CT ANGIOGRAM: There is three-vessel aortic arch seen. The bilateral subclavian arteries and brachiocephalic artery are patent. There is some motion and streak artifact obscuring some portions of the proximal bilateral common carotid arteries. The right common carotid artery is patent. There are stable roughly 20% stenosis involving the origin of the cervical right ICA. Tortuous qws-ky-itckuh cervical right ICA is seen. The remainder of the cervical right ICA is patent. The right ECA is patent. The left common carotid artery is patent. The left ECA and cervical left ICA is patent. There are focal areas of hfqk-gi-jpzenbtk stenosis involving the periophthalmic and paraclinoid portion of the left intracranial ICA. The petrous, cavernous, and right ICA is patent without significant stenosis. 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 There is a prominent right A1 NILA and anterior communicating artery supplying the patent proximal bilateral A2 ACAs. There is a short segment area of stenosis involving the right A3 NILA branch with improved patency compared to prior study. The previously seen occluded left A3 NILA occlusion is now patent. The distal bilateral NILA branches are patent. There is atherosclerotic disease with greater than 70% stenosis but less than near occlusion involving the origin of the cervical left vertebral artery. 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 There may be a patent small-caliber post PICA right ICA retrograde flow. There is interval development of intravascular thrombus with complete occlusion of the distal left M1 MCA extending into the anterior branch of the left M2 MCA and distal branches. The inferior branch of the left M2 MCA shows focal severe stenosis proximally, but is patent distally. There is waqe-ka-fhqlugrf stenosis of the intradural left vertebral artery. The basilar artery, bilateral superior cerebellar arteries, and bilateral skin specialist and distal branches are patent. IMPRESSION: 1: There is interval development of complete occlusion and intravascular thrombus involving the origin of the superior branch of the left M2 MCA. The occlusion extends into the distal branches. 2: There is interval development of a focal area of severe stenosis involving the proximal aspect of the inferior branch of the left M2 MCA. The remainder of the inferior branches of the left M2 MCA are patent. 3: There is interval development of a small amount of low density involving left basal ganglia region concerning for early acute infarct changes. There is no intraparenchymal hemorrhage. 4: The remainder of the brain parenchyma is stable with multiple chronic cerebral hemisphere infarcts (right cerebral hemisphere more than the left). 5: There is interval improved patency of the previously seen occluded right A3 NILA branch. There is interval resolution of the segment of occlusion involving the left A3 NILA branch. 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 Possible reconstitution from retrograde flow of the small-caliber post PICA intradural vertebral artery. 7: The remainder of the CT angiogram is stable with multiple areas of vascular stenosis, as described above. Results of this report were discussed with LUIS Freeman, via the telephone on 08/09/2022 at 1355 hours. Dictated on workstation # [id number] Dict: 08/09/22 1337 Trans: 08/09/22 1420 [id number] [id number] Interpreted by: MOHSEN ANDRADE MD Electronically signed by: Reviewed: Reviewed by Me, Discussed w/Radiologist Diagonstic Imaging: Xray Plain Films/CT/US/NM/MRI: chest Comments NAME: ALAN CHURCH [facility] REC#: [id number] PT STATUS: REG ER : 1945 PHYSICIAN: ISABEL SANTACRUZ ADMIT DATE: 08/09/22/ER Signed Date of Exam:08/09/22 CHEST 1 VIEW, AP/PA ONLY INDICATION: Stroke. Frontal chest obtained at 01:39 p.m. compared with 07/01/2022. FINDINGS: There is cardiomegaly and poststernotomy change. There is mild central vascular congestion. There is poor inspiration. There is no focal consolidation or pneumothorax or pleural fluid. There is unchanged elevation of left hemidiaphragm. IMPRESSION: Cardiomegaly and central vascular congestion. Unchanged elevation left hemidiaphragm. No pneumothorax or gross pleural fluid. Dictated by: Dictated on workstation # [id number] Dict: 08/09/22 1351 Trans: 08/09/22 1402 [id number] Interpreted by: ADRY LIPSCOMB MD Electronically signed by: ADRY LIPSCOMB MD 08/09/22 1402 Reviewed: Reviewed by Me (ISABEL SANTACRUZ) Departure Impression Primary Impression: CVA (cerebral vascular accident) Qualified Codes: I63.512 - Cerebral infarction due to unspecified occlusion or stenosis of left middle cerebral artery Additional Impressions: CAD (coronary artery disease) Qualified Codes: I25.810 - Atherosclerosis of coronary artery bypass graft(s) without angina pectoris History of stroke History of seizure Disposition: [facility] Condition: Critical Transfer Transfer Reason: Exceeds level of care Time Spoke to Accepting Phy: 14:10 Transfer Time: 14:50 Transfer Facility: [facility] to [facility] Method of Transfer: Air (ISABEL SANTACRUZ) Departure-Patient Inst. Referrals: [facility]/K (PCP/Family) Primary Care Physician ATTENDING PHYSICIAN NOTE: I was physically present as attending physician in the emergency department during the care of this patient. Isabel Santacruz NP kept me abreast of this patient's work-up and status. I did not personally interview or examine this patient or interview his family. He may height appropriately consulted stroke neurology at [facility] and facilitated transfer. I was not otherwise directly involved in the decision making or delivery of care for this patient. (SHEN CLEANING MD) ISABEL SANTACRUZ Aug 09, 2022 13:27 SHEN CLEANING MD Aug 10, 2022 06:32
--- NOTE | 2022-08-09 13:53 | Diagnostic Imaging Report ---
INDICATION: Stroke. Frontal chest obtained at 01:39 p.m. compared with 07/01/2022. FINDINGS: There is cardiomegaly and poststernotomy change. There is mild central vascular congestion. There is poor inspiration. There is no focal consolidation or pneumothorax or pleural fluid. There is unchanged elevation of left hemidiaphragm. IMPRESSION: Cardiomegaly and central vascular congestion. Unchanged elevation left hemidiaphragm. No pneumothorax or gross pleural fluid. Dictated by: Dictated on workstation # [id number]
[2022-08-09 14:02] LABS: BASOPHILS # (AUTO) 0.1 10^3/uL (0.0-0.1); BASOPHILS % (AUTO) 1 % (0-10); EOSINOPHILS # (AUTO) 0.3 10^3/uL (0.0-0.3); EOSINOPHILS % (AUTO) 4 % (0-10); HEMATOCRIT 51 % (40-54); HEMOGLOBIN 16.8 g/dL (13.3-17.7); LYMPHOCYTES # (AUTO) 1.3 10^3/uL (1.0-4.0); LYMPHOCYTES % (AUTO) 18 % (12-44); MEAN CORPUSCULAR HEMOGLOBIN 31 pg (25-34); MEAN CORPUSCULAR HGB CONC 33 g/dL (32-36); MEAN CORPUSCULAR VOLUME 93 fL (80-99); MEAN PLATELET VOLUME 10.6 fL (9.0-12.2); MONOCYTES # (AUTO) 0.7 10^3/uL (0.0-1.0); MONOCYTES % (AUTO) 11 % (0-12); NEUTROPHILS # (AUTO) 4.7 10^3/uL (1.8-7.8); NEUTROPHILS % (AUTO) 67 % (42-75); PLATELET COUNT 245 10^3/uL (130-400)
--- NOTE | 2022-08-09 14:20 | Diagnostic Imaging Report ---
CLINICAL INDICATION: Patient with right-sided weakness and unresponsive. Patient has history of stroke. EXAMS: 1: Head CT with and without IV contrast. Auto Exposure Controls were utilized during the CT exam to meet ALARA standards for radiation dose reduction. 2: CT angiogram of the head and neck performed with 100 cc of Omnipaque 350 IV contrast. Sagittal and coronal MIP reformations were created for better visualization of vascular anatomy. CT angiogram was post-processed using RAPID LVO detection to include quantitative measurements of cerebral blood flow and automated results notification to the stroke and/or neurointerventional team. COMPARISON: Head CT without contrast dated 08/09/2022. Head CT without contrast dated 07/01/2022. FINDINGS: Head CT: There is a small area of low density involving the left caudate head and left basal ganglia region anteriorly which is more accentuated on this postcontrast sequence. This may represent an acute or subacute infarct. This was not seen on the prior head CT dated 07/01/2022. Again seen moderate chronic cerebral infarct involving the right frontal lobe and right parietal lobe region. Again seen patchy areas of low density involving both cerebral hemispheres, likely related to chronic ischemic changes. Stable small chronic infarct involving the posterior left frontoparietal region. There is no abnormal IV contrast enhancement seen. There is no hydrocephalus, brain herniation or midline shift. The remainder of this exam shows no significant interval change compared to the most recent prior study of comparison. CT ANGIOGRAM: There is three-vessel aortic arch seen. The bilateral subclavian arteries and brachiocephalic artery are patent. There is some motion and streak artifact obscuring some portions of the proximal bilateral common carotid arteries. The right common carotid artery is patent. There are stable roughly 20% stenosis involving the origin of the cervical right ICA. Tortuous ien-vl-pdqozn cervical right ICA is seen. The remainder of the cervical right ICA is patent. The right ECA is patent. The left common carotid artery is patent. The left ECA and cervical left ICA is patent. There are focal areas of ogaj-jw-haczwswc stenosis involving the periophthalmic and paraclinoid portion of the left intracranial ICA. The petrous, cavernous, and right ICA is patent without significant stenosis. 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 There is a prominent right A1 NILA and anterior communicating artery supplying the patent proximal bilateral A2 ACAs. There is a short segment area of stenosis involving the right A3 NILA branch with improved patency compared to prior study. The previously seen occluded left A3 NILA occlusion is now patent. The distal bilateral NILA branches are patent. There is atherosclerotic disease with greater than 70% stenosis but less than near occlusion involving the origin of the cervical left vertebral artery. 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 There may be a patent small-caliber post PICA right ICA retrograde flow. There is interval development of intravascular thrombus with complete occlusion of the distal left M1 MCA extending into the anterior branch of the left M2 MCA and distal branches. The inferior branch of the left M2 MCA shows focal severe stenosis proximally, but is patent distally. There is smei-gm-rcjnruna stenosis of the intradural left vertebral artery. The basilar artery, bilateral superior cerebellar arteries, and bilateral mill laborer and distal branches are patent. IMPRESSION: 1: There is interval development of complete occlusion and intravascular thrombus involving the origin of the superior branch of the left M2 MCA. The occlusion extends into the distal branches. 2: There is interval development of a focal area of severe stenosis involving the proximal aspect of the inferior branch of the left M2 MCA. The remainder of the inferior branches of the left M2 MCA are patent. 3: There is interval development of a small amount of low density involving left basal ganglia region concerning for early acute infarct changes. There is no intraparenchymal hemorrhage. 4: The remainder of the brain parenchyma is stable with multiple chronic cerebral hemisphere infarcts (right cerebral hemisphere more than the left). 5: There is interval improved patency of the previously seen occluded right A3 NILA branch. There is interval resolution of the segment of occlusion involving the left A3 NILA branch. 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 Possible reconstitution from retrograde flow of the small-caliber post PICA intradural vertebral artery. 7: The remainder of the CT angiogram is stable with multiple areas of vascular stenosis, as described above. Results of this report were discussed with LUIS Freeman, via the telephone on 08/09/2022 at 1355 hours. Dictated by: Dictated on workstation # [id number]
[2022-08-09 14:23] LABS: ALBUMIN 3.6 GM/DL (3.2-4.5); CHLORIDE 109 MMOL/L (98-107); POTASSIUM 4.3 MMOL/L (3.6-5.0); SODIUM 141 MMOL/L (135-145)
[2022-08-09 14:24] LABS: CALCIUM 9.5 MG/DL (8.5-10.1)
[2022-08-09 14:25] LABS: GLUCOSE 109 MG/DL (70-105); TOTAL PROTEIN 6.7 GM/DL (6.4-8.2)
[2022-08-09 14:26] LABS: CARBON DIOXIDE 21 MMOL/L (21-32)
[2022-08-09 14:27] LABS: BILIRUBIN,TOTAL 0.7 MG/DL (0.1-1.0)
[2022-08-09 14:28] LABS: ALKALINE PHOSPHATASE 134 U/L (40-136)
[2022-08-09 14:28] LABS: BILIRUBIN,URINE NEGATIVE (NEGATIVE); CLARITY,URINE CLEAR; COLOR,URINE YELLOW; GLUCOSE, URINE (UA) NEGATIVE (NEGATIVE); KETONES,URINE NEGATIVE (NEGATIVE); LEUKOCYTE ESTERASE ,URINE NEGATIVE (NEGATIVE); NITRITE,URINE NEGATIVE (NEGATIVE); PROTEIN,URINE 2+ (NEGATIVE)
[2022-08-09 14:29] LABS: CREATININE SERUM 1.83 MG/DL (0.60-1.30); GFR ESTIMATED 38
[2022-08-09 14:30] LABS: BUN/CREATININE RATIO 13; FIBRIN DEGRADATION PRODUCTS 1.42 UG/ML (0.00-0.49); PROTHROMBIN TIME PATIENT 13.8 SEC (12.2-14.7)
[2022-08-09] MEDS ORDERED: NS IV 1000 ML 1,000 ML IV SCH (14:30)
[2022-08-09 14:32] LABS: ALANINE AMINOTRANSFERASE 21 U/L (0-55)
[2022-08-09 14:40] LABS: BACTERIA,URINE NEGATIVE /HPF; RBC,URINE RARE /HPF
[2022-08-09 14:54] VITALS: BP 183/99
== END 2022-08-09 15:01 | disposition short-term general hospital (02) ==
LOC: EDUNIT# 13:04 → ER 13:05
DX: I63.9 Cerebral infarction, unspecified (principal); I25.10 Atherosclerotic heart disease of native coronary artery without angina pectoris; I10 Essential (primary) hypertension; R29.810 Facial weakness; R47.01 Aphasia; R29.720 NIHSS score 20; Z95.1 Presence of aortocoronary bypass graft; Z86.69 Personal history of other diseases of the nervous system and sense organs
CPT/HCPCS: 36415; 51702; 53620; 70450; 70496; 70498; 71045; 80053; 81000; 84484; 85025; 85379; 85610; 85730; 93005; 93041

== ENCOUNTER 2022-09-15 13:13 | Inpatient (IN) | payer MEDICARE ==
[~2022-09-15] VITALS: Ht 182.9 cm; Wt 120.0 kg
[2022-09-15 15:08] VITALS: BP 85/58
--- OUTSIDE RECORDS SUMMARY | 2022-09-15 15:09 | XMS REPORT | Clinical Summary ---
Author Author [facility] Organization [facility] Address Unknown Phone Unavailable Care Team Providers Care Food Safety Director Name Role Phone Coni Nguyen NP PCP Source Comments Some departments are not documenting in the electronic medical record. If you d o not see the information that you expected, contact Release of Information in [facility] Information Management department at [phone] for further assistan ce in locating additional records.[facility] Allergies No known active allergies Medications End Date Status Medication Sig Dispensed Refills Start Date Active vitamin A & D oint Apply 113 g 1 02 topically to 3 affected area as Needed (Promote skin healing). Active aspirin 81 mg chewable Chew one 90 tablet 1 tablet tablet by 3 mouth daily. Take with food. Active amLODIPine (NORVASC) 5 mg Take one 90 tablet 1 tablet tablet by 3 mouth daily. Active atorvastatin (LIPITOR) 80 Take one 90 tablet 1 mg tablet tablet by 3 mouth daily. Active levETIRAcetam (KEPPRA) Take one 180 tablet 3 500 mg tablet tablet by 3 mouth twice daily. Active levothyroxine (SYNTHROID) Take one 90 tablet 125 mcg tablet tablet by 3 mouth daily 30 minutes before breakfast. Active melatonin 5 mg tablet Take one 90 tablet 08/29 tablet by 3 mouth at bedtime daily. Active apixaban (ELIQUIS) 5 mg Take one 180 tablet 3 tablet tablet by 3 mouth twice daily. Active baclofen 5 mg tablet Take one 270 tablet 09/13 tablet by 3 mouth at bedtime daily. Active famotidine (PEPCID) 20 mg Take one 180 tablet 3 tablet tablet by 3 mouth daily. Active QUEtiapine (SEROQUEL) 25 Take one-half 60 tablet 0 mg tablet tablet by 3 mouth at bedtime as needed. Active sertraline (ZOLOFT) 50 mg Take one 90 tablet 0 tablet tablet by 3 mouth daily. Active simethicone (MYLICON) 80 Chew one 30 tablet 3 0 mg chew tablet tablet by 3 mouth three times daily. Active traZODone (DESYREL) 50 mg Take one 90 tablet 0 tablet tablet by 3 mouth at bedtime daily. 08/24/2022 Discontinued (Reorder) allopurinoL (ZYLOPRIM) Take 50 mg by 0 100 mg tablet mouth daily. Take with food. 08/24/2022 Discontinued (Reorder) amLODIPine (NORVASC) 10 Take 10 mg by 0 mg tablet mouth daily. 08/24/2022 Discontinued aspirin EC 81 mg tablet Take 81 mg by 0 mouth daily. Take with food. 08/24/2022 Discontinued (Reorder) atorvastatin (LIPITOR) 80 Take 80 mg by 0 mg tablet mouth daily. 08/24/2022 Discontinued clopiDOGreL (PLAVIX) 75 Take 75 mg by 0 mg tablet mouth daily. 08/24/2022 Discontinued multivitamin (ONE-A-DAY) Take 1 tablet 0 tablet by mouth daily. 08/24/2022 Discontinued fish oil- omega 3-DHA/EPA Take 1 0 300/1,000 mg capsule capsule by mouth daily. 08/24/2022 Discontinued (Reorder) levETIRAcetam (KEPPRA) Take 500 mg 0 500 mg tablet by mouth twice daily. 08/24/2022 Discontinued cetirizine (ZYRTEC) 10 mg Take 10 mg by 0 tablet mouth daily. 08/24/2022 Discontinued CHOLEcalciferoL (vitamin Take 5,000 0 D3) (VITAMIN D3) 5000 Units by unit tablet mouth daily. 08/24/2022 Discontinued (Reorder) melatonin 5 mg chew Chew 5 mg by 0 mouth at bedtime daily. 08/24/2022 Discontinued lisinopriL (ZESTRIL) 20 Take 20 mg by 0 mg tablet mouth daily. 2 08/24/2022 Discontinued (Reorder) levothyroxine (SYNTHROID) Take 125 mcg 0 125 mcg tablet by mouth daily 30 minutes before breakfast. 08/24/2022 Discontinued (Removed from P TA Med List) apixaban (ELIQUIS) 5 mg one tablet by 180 tablet 0 tablet Per NG tube 3 route twice daily. 08/24/2022 Discontinued (Removed from P TA Med List) carvediloL (COREG) 6.25 one tablet by 180 tablet 0 mg tablet PEG Tube 3 route twice daily. Take with food. 08/24/2022 Discontinued (Removed from P TA Med List) doxazosin (CARDURA) 1 mg one tablet by 90 tablet 0 tablet PEG Tube 3 route daily. 08/24/2022 Discontinued (Removed from P TA Med List) levETIRAcetam (KEPPRA) Take one 180 tablet 0 500 mg tablet tablet by 3 mouth twice daily. Administer via PEG Tube. 08/24/2022 Discontinued (Removed from P TA Med List) atorvastatin (LIPITOR) 80 one tablet by 90 tablet 0 mg tablet PEG Tube 3 route daily. 08/24/2022 Discontinued (Removed from P TA Med List) amLODIPine (NORVASC) 10 one tablet by 90 tablet 0 mg tablet PEG Tube 3 route daily. 08/24/2022 Discontinued (Removed from P TA Med List) allopurinoL (ZYLOPRIM) one-half 90 tablet 0 100 mg tablet tablet by PEG 3 Tube route daily. Take with food. 08/24/2022 Discontinued (Removed from P TA Med List) melatonin 5 mg chew 5 mg by PEG 30 tablet 0 Tube route at 3 bedtime daily. 08/24/2022 Discontinued (Removed from P TA Med List) levothyroxine (SYNTHROID) one tablet by 90 tablet 0 125 mcg tablet PEG Tube 3 route daily 30 minutes before breakfast. 08/24/2022 Discontinued (Removed from P TA Med List) aspirin 81 mg chewable one tablet by 90 tablet 0 0 tablet PEG Tube 3 route daily. Take with food. 09/13/2022 Discontinued allopurinoL (ZYLOPRIM) Take one 0 100 mg tablet tablet by mouth daily. Take with food. 09/13/2022 Discontinued amLODIPine (NORVASC) 10 Take one 0 mg tablet tablet by mouth daily. 09/13/2022 Discontinued atorvastatin (LIPITOR) 80 Take one 0 mg tablet tablet by mouth daily. 09/13/2022 Discontinued levETIRAcetam (KEPPRA) Take one 0 500 mg tablet tablet by mouth twice daily. 09/13/2022 Discontinued levothyroxine (SYNTHROID) Take one 0 125 mcg tablet tablet by mouth daily 30 minutes before breakfast. 09/13/2022 Discontinued MELATONIN PO Take 5 mg by 0 mouth at bedtime daily. 09/13/2022 Discontinued aspirin EC 81 mg tablet Take one 0 tablet by mouth daily. Take with food. 09/13/2022 Discontinued cetirizine (ZYRTEC) 10 mg Take one 0 tablet tablet by mouth every morning. 09/13/2022 Discontinued CHOLEcalciferoL (vitamin Take five 0 D3) (VITAMIN D3) 1,000 tablets by units tablet mouth daily. 09/13/2022 Discontinued clopiDOGreL (PLAVIX) 75 Take one 0 mg tablet tablet by mouth daily. 09/13/2022 Discontinued fish oil- omega 3-DHA/EPA Take one 0 300/1,000 mg capsule capsule by mouth daily. 09/13/2022 Discontinued lisinopriL (ZESTRIL) 20 Take one 0 mg tablet tablet by mouth daily. 09/13/2022 Discontinued MULTIVITAMIN PO Take 1 tablet 0 by mouth daily. 09/13/2022 Discontinued amLODIPine (NORVASC) 5 mg one tablet by 90 tablet 1 tablet PEG Tube 3 route daily. 09/13/2022 Discontinued aspirin 81 mg chewable one tablet by 90 tablet 1 0 tablet PEG Tube 3 route daily. Take with food. 09/13/2022 Discontinued atorvastatin (LIPITOR) 80 one tablet by 90 tablet 1 mg tablet PEG Tube 3 route daily. 09/13/2022 Discontinued levETIRAcetam (KEPPRA) 5 mL by PEG 473 mL 1 100 mg/mL oral solution Tube route 3 twice daily. 09/13/2022 Discontinued levothyroxine (SYNTHROID) one tablet by 90 tablet 1 125 mcg tablet PEG Tube 3 route daily 30 minutes before breakfast. 09/13/2022 Discontinued apixaban (ELIQUIS) 5 mg one tablet by 180 tablet 1 tablet Per NG tube 3 route twice daily. 09/13/2022 Discontinued (Reorder) baclofen 5 mg tablet Take one 270 tablet 1 09/13 tablet via 3 feeding tube at bedtime daily. 09/13/2022 Discontinued famotidine (PEPCID) 20 mg one tablet by 180 tablet 1 tablet PEG Tube 3 route daily. 09/13/2022 Discontinued melatonin 5 mg tablet one tablet by 90 tablet 1 PEG Tube 3 route at bedtime daily. 09/13/2022 Discontinued (Reorder) QUEtiapine (SEROQUEL) 25 one-half 180 tablet 0 0 mg tablet tablet by Per 3 G Tube route at bedtime as needed. 09/13/2022 Discontinued sertraline (ZOLOFT) 50 mg Take one 90 tablet 0 tablet tablet via 3 feeding tube daily. 09/13/2022 Discontinued simethicone (MYLICON) 80 one tablet by 30 tablet 11 mg chew tablet Per G Tube 3 route three times daily. 09/13/2022 Discontinued traZODone (DESYREL) 50 mg one tablet by 90 tablet 0 tablet PEG Tube 3 route at bedtime daily. Active Problems Problem Noted Date Impaired mobility and activities of daily living Risk for falls 08/24/2022 Acute ischemic left MCA stroke 08/09/2022 CAD (coronary artery disease) 03/31/2010 Overview: s/p CABG x 5 Stage 3b chronic kidney disease Overview: Baseline Creat 2-2.3 (as of 05/2022) Hyperlipidemia Primary hypertension Hypothyroidism Seizure disorder History of multiple strokes Global aphasia Acute right hemiparesis Encounters Care Team Description Date Type Specialty Catherine Gomes RN Event Monitor Results 09/04/2022 Telephone Cardiology Esme Trinh MD Acute ischemic left MCA stroke (HCC) 08/24/2022 Hospital Rehabilitation - Encounter 09/14/2022 Crista Martinez Ambulatory Washroom Operator Placement (In patient Enrollment 30 Day [facility]OT) 08/24/2022 Documentation Cardiology Janes Loaiza MD Ludwig, Leah R, JUDE 08/20/2022 Anesthesia Radiology Event 08/20/2022 Documentation Radiology 08/20/2022 Documentation Radiology 08/20/2022 Documentation Radiology 08/20/2022 Documentation Radiology 08/20/2022 Documentation Radiology 08/20/2022 Documentation Radiology 08/20/2022 Documentation Radiology 08/20/2022 Documentation Radiology 08/20/2022 Documentation Radiology 08/20/2022 Documentation Radiology 08/20/2022 Documentation Radiology 08/20/2022 Documentation Radiology 08/20/2022 Documentation Radiology 08/20/2022 Documentation Radiology Lynn Vaz MD 08/15/2022 Anesthesia Cardiology Event 08/10/2022 Travel Robin Little MD Wise, Mark, DO 08/09/2022 Anesthesia Radiology Event Yousuf Smith MD Carpenter, Kyle G, Garcia Benavides MD Kline, Logan F, Bart Spence, DO Acute ischemic left MCA stroke (HCC) 08/09/2022 Hospital Hematology and Onco logy - Encounter 08/24/2022 07/01/2022 Hospital Radiology Encounter 07/01/2022 Hospital Radiology Encounter 07/01/2022 Hospital Radiology Encounter from Last 3 Months Surgical History Surgery Date Site/Laterality Comments CORONARY ARTERY BYPASS 03/31/2010 x 5 vessel GRAFT - 04/30/2010 Medical History Medical History Date Comments Primary hypertension CAD (coronary artery disease) 03/2010 s/p CABG x 5 Seizure disorder (HCC) History of right MCA stroke 05/2022 History of left NILA stroke 07/2022 CKD (chronic kidney disease) stage 3, GFR 30-59 ml/min (HCC) Hyperlipidemia Deep vein thrombosis (DVT) of right 05/2010 s/ p CABG lower extremity (HCC) Hypothyroidism Gout Social History Date Tobacco Use Types Packs/Day Years Used Smoking Tobacco: Former Cigarettes Smokeless Tobacco: Never Tobacco Cessation: Counseling Given: Not Answered Comments Alcohol Use Standard Drinks/Week Not Currently 0 (1 standard drink = 0.6 o z pure alcohol) Sex Assigned at Date Recorded Not on file Obstetrics History Last Filed Vital Signs Reading Time Taken Comments Vital Sign 139/88 09/14/2022 12:49 PM CDT Blood Pressure 86 09/14/2022 12:49 PM CDT Pulse 36.7 C (98.1 F) 09/14/2022 12:49 PM CDT Temperature - - Respiratory Rate 96% 09/14/2022 12:49 PM CDT Oxygen Saturation - - Inhaled Oxygen Concentration 91.1 kg (200 lb 13.4 oz) 09/10/2022 6:54 AM CDT Weight 172.7 cm (5' 7.99") 08/24/2022 1:49 PM [employer]ARING [employer] WORK[employer] Height 30.54 08/24/2022 1:49 PM SHEARING [employer]ED WORKER Body Mass Index Plan of Treatment Health Maintenance Due Date Last Done Comments MEDICARE ANNUAL WELLNESS 1945 VISIT HEPATITIS C SCREENING 1964 PHYSICAL (COMPREHENSIVE) 1963 EXAM COVID-19 VACCINE (5 - 06/19/2021 04/24/2021, Booster for Moderna 11/22/2020, series) 09/22/2020, Additional history exists ADVANCED CARE PLANNING 07/01/2022 DISCUSSION AND DOCUMENTATION DEPRESSION SCREENING 07/01/2022 DTAP/TDAP VACCINES (2 - 08/20/2029 08/20/2019 Td or Tdap) PNEUMOCOCCAL VACCINE Completed 04/07/2019, 09/10/2017, 06/02/2010 SHINGLES RECOMBINANT Completed 04/13/2020, VACCINE 08/31/2019, 08/28/2019 INFLUENZA VACCINE Completed 03/13/2022, 04/04/2020 Goals Goal Patient Associated Recent Progress Patient-Stat Aut hor Goal Type Problems ed? Remain independent Hospital Not on track Maki Hurt (08/10/2022 11:58 AM ROSENDO Guillen [employer]ARING [employer] WORKER) Medical Devices Device Identifier Shelf Expiration Date Model / Serial / L ot Implanted Type Area Manufactur er [id number] 03/30/2023 [id number] / NA / [id number] Device Closure 70cm 8fr .038in Right: Groin TERUMO Angio-Seal Vip [employer] - Sna MEDICAL Implanted: Qty: 1 on 08/09/2022 by Markus Cortez MD at [facility] Procedures Comments Procedure Name Priority Date/Time Associated Diag nosis SWALLOW MOTION SERIES Routine 09/13/2022 2:28 PM CDT HC PHOSPHOROUS, SERUM 09/13/2022 6:43 AM CDT HC MAGNESIUM 09/13/2022 6:43 AM CDT HC CBC AUTOMATED (HPCT) 09/13/2022 6:43 AM CDT HC BASIC METABOLIC PANEL 09/13/2022 6:43 AM CDT HC LACTIC ACID(LACTATE) Routine 09/10/2022 3:10 PM CDT BASIC METABOLIC PANEL Routine 09/10/2022 3:10 PM CDT HC CBC W/ AUTOMATED DIFF Routine 09/10/2022 3:10 PM CDT CHEST SINGLE VIEW AUBRIE 09/10/2022 3:04 PM CDT ECG 12-LEAD Routine 09/10/2022 10:04 AM CDT HC PHOSPHOROUS, SERUM Routine 09/10/2022 7:20 AM CDT HC MAGNESIUM Routine 09/10/2022 7:20 AM CDT HC COMPREHENSIVE Routine 09/10/2022 METABOLIC PANEL 7:20 AM CDT HC CBC AUTOMATED (HPCT) Routine 09/10/2022 7:20 AM CDT HC PHOSPHOROUS, SERUM Routine 09/07/2022 7:25 AM SHEARING SHED WORKER HC MAGNESIUM Routine 09/07/2022 7:25 AM SHEARING SHED WORKER HC COMPREHENSIVE Routine 09/07/2022 METABOLIC PANEL 7:25 AM SHEARING SHED WORKER HC CBC AUTOMATED (HPCT) Routine 09/07/2022 7:25 AM SHEARING SHED WORKER HC PHOSPHOROUS, SERUM Routine 09/05/2022 7:17 AM SHEARING SHED WORKER HC MAGNESIUM Routine 09/05/2022 7:17 AM SHEARING SHED WORKER HC COMPREHENSIVE Routine 09/05/2022 METABOLIC PANEL 7:17 AM SHEARING SHED WORKER HC CBC AUTOMATED (HPCT) Routine 09/05/2022 7:17 AM SHEARING SHED WORKER HC PHOSPHOROUS, SERUM Routine 09/03/2022 7:56 AM SHEARING SHED WORKER HC MAGNESIUM Routine 09/03/2022 7:56 AM SHEARING SHED WORKER HC COMPREHENSIVE Routine 09/03/2022 METABOLIC PANEL 7:56 AM SHEARING SHED WORKER HC CBC AUTOMATED (HPCT) Routine 09/03/2022 7:56 AM SHEARING SHED WORKER HC BASIC METABOLIC PANEL Routine 08/31/2022 (CH7CT) 7:43 AM SHEARING SHED WORKER HC CBC AUTOMATED (HPCT) Routine 08/31/2022 7:43 AM SHEARING SHED WORKER HC BASIC METABOLIC PANEL Routine 08/29/2022 (CH7CT) 10:55 AM SHEARING SHED WORKER HC CBC AUTOMATED (HPCT) Routine 08/29/2022 10:55 AM SHEARING SHED WORKER HC BASIC METABOLIC PANEL Routine 08/28/2022 (CH7CT) 9:49 AM SHEARING SHED WORKER HC CBC AUTOMATED (HPCT) Routine 08/28/2022 9:49 AM SHEARING SHED WORKER HC BASIC METABOLIC PANEL Routine 08/27/2022 (CH7CT) 10:42 AM SHEARING SHED WORKER HC CBC AUTOMATED (HPCT) Routine 08/27/2022 10:42 AM SHEARING SHED WORKER HC BASIC METABOLIC PANEL Routine 08/25/2022 (CH7CT) 12:56 PM SHEARING SHED WORKER HC CBC AUTOMATED (HPCT) Routine 08/25/2022 12:56 PM SHEARING SHED WORKER HC CBC,AUTOMATED Routine 08/24/2022 6:34 AM SHEARING SHED WORKER HC BASIC METABOLIC PANEL Routine 08/24/2022 6:34 AM SHEARING SHED WORKER POC GLUCOSE 08/23/2022 8:54 PM SHEARING SHED WORKER HC CBC,AUTOMATED Routine 08/22/2022 7:03 AM SHEARING SHED WORKER HC BASIC METABOLIC PANEL Routine 08/22/2022 7:03 AM SHEARING SHED WORKER POC GLUCOSE 08/20/2022 9:44 PM SHEARING SHED WORKER IR GASTROSTOMY TUBE Routine 08/20/2022 PLACEMENT 4:08 PM SHEARING [employer] WORKER SWALLOW MOTION SERIES Routine 08/20/2022 9:11 AM SHEARING SHED WORKER HC CBC,AUTOMATED Routine 08/20/2022 6:07 AM SHEARING SHED WORKER HC BASIC METABOLIC PANEL Routine 08/20/2022 6:07 AM SHEARING SHED WORKER TELEMETRY STRIPS-SCAN 08/20/2022 12:00 AM SHEARING SHED WORKER TELEMETRY STRIPS-SCAN 08/20/2022 12:00 AM SHEARING SHED WORKER TELEMETRY STRIPS-SCAN 08/20/2022 12:00 AM SHEARING SHED WORKER TELEMETRY STRIPS-SCAN 08/20/2022 12:00 AM SHEARING SHED WORKER TELEMETRY STRIPS-SCAN 08/20/2022 12:00 AM SHEARING SHED WORKER TELEMETRY STRIPS-SCAN 08/20/2022 12:00 AM SHEARING SHED WORKER TELEMETRY STRIPS-SCAN 08/20/2022 12:00 AM SHEARING SHED WORKER TELEMETRY STRIPS-SCAN 08/20/2022 12:00 AM SHEARING SHED WORKER TELEMETRY STRIPS-SCAN 08/20/2022 12:00 AM SHEARING SHED WORKER TELEMETRY STRIPS-SCAN 08/20/2022 12:00 AM SHEARING SHED WORKER TELEMETRY STRIPS-SCAN 08/20/2022 12:00 AM SHEARING SHED WORKER TELEMETRY STRIPS-SCAN 08/20/2022 12:00 AM SHEARING SHED WORKER TELEMETRY STRIPS-SCAN 08/20/2022 12:00 AM SHEARING SHED WORKER TELEMETRY STRIPS-SCAN 08/20/2022 12:00 AM SHEARING SHED WORKER TELEMETRY STRIPS-SCAN 08/20/2022 12:00 AM SHEARING SHED WORKER TELEMETRY STRIPS-SCAN 08/20/2022 12:00 AM SHEARING SHED WORKER TELEMETRY STRIPS-SCAN 08/20/2022 12:00 AM SHEARING SHED WORKER TELEMETRY STRIPS-SCAN 08/20/2022 12:00 AM SHEARING SHED WORKER TELEMETRY STRIPS-SCAN 08/20/2022 12:00 AM SHEARING SHED WORKER TELEMETRY STRIPS-SCAN 08/20/2022 12:00 AM SHEARING SHED WORKER TELEMETRY STRIPS-SCAN 08/20/2022 12:00 AM SHEARING SHED WORKER TELEMETRY STRIPS-SCAN 08/20/2022 12:00 AM SHEARING SHED WORKER HC CBC,AUTOMATED Routine 08/18/2022 6:44 AM SHEARING SHED WORKER HC BASIC METABOLIC PANEL Routine 08/18/2022 6:44 AM SHEARING SHED WORKER HC BASIC METABOLIC PANEL Routine 08/17/2022 6:11 AM SHEARING SHED WORKER HC CBC,AUTOMATED Routine 08/17/2022 6:11 AM SHEARING SHED WORKER HC BASIC METABOLIC PANEL Routine 08/16/2022 6:56 AM SHEARING SHED WORKER HC CBC,AUTOMATED Routine 08/16/2022 6:56 AM SHEARING SHED WORKER KASSI W/O CONTRAST Routine 08/15/2022 2:15 PM SHEARING SHED WORKER NM PET SCAN TORSO Routine 08/15/2022 (SKULL-THIGHS) 12:47 PM SHEARING SHED WORKER HC CBC,AUTOMATED Routine 08/15/2022 6:11 AM SHEARING SHED WORKER HC BASIC METABOLIC PANEL Routine 08/15/2022 6:11 AM SHEARING SHED WORKER HC CBC W/ AUTOMATED DIFF Routine 08/14/2022 6:39 AM SHEARING SHED WORKER HC BASIC METABOLIC PANEL Routine 08/14/2022 6:39 AM SHEARING SHED WORKER HC HEX PHOSPHOLIPID NEUT Routine 08/13/2022 2:49 PM SHEARING SH[employer] WORKER HC ANTICARDIO LIPIN IGG Routine 08/13/2022 2:49 PM SHEARING SHED WORKER HC BETA-2 GLYCOPR 1 IGM Routine 08/13/2022 2:49 PM SHEARING SHED WORKER HC BETA 2 GP1 AB, IGG Routine 08/13/2022 2:49 PM SHEARING SHED WORKER HC PHOSPHOROUS, SERUM Routine 08/13/2022 3:12 AM SHEARING SHED WORKER HC MAGNESIUM Routine 08/13/2022 3:12 AM SHEARING SHED WORKER HC CBC W/ AUTOMATED DIFF Routine 08/13/2022 3:12 AM SHEARING SHED WORKER HC BASIC METABOLIC PANEL Routine 08/13/2022 3:12 AM SHEARING SHED WORKER HC CALCIUM IONIZED Routine 08/13/2022 3:12 AM SHEARING SHED WORKER HC CALCIUM IONIZED Routine 08/12/2022 2:17 AM SHEARING SHED WORKER HC PHOSPHOROUS, SERUM Routine 08/12/2022 2:17 AM SHEARING SHED WORKER HC MAGNESIUM Routine 08/12/2022 2:17 AM SHEARING SHED WORKER HC CBC W/ AUTOMATED DIFF Routine 08/12/2022 2:17 AM SHEARING SHED WORKER HC BASIC METABOLIC PANEL Routine 08/12/2022 2:17 AM [employer] [address] CT HEAD WO CONTRAST Routine 08/11/2022 11:[address] NECK W/CONTRAST Routine 08/11/2022 4:34 AM SHEARING SHED WORKER HC CALCIUM IONIZED Routine 08/11/2022 2:55 AM SHEARING SHED WORKER HC PHOSPHOROUS, SERUM Routine 08/11/2022 2:55 AM SHEARING SHED WORKER HC MAGNESIUM Routine 08/11/2022 2:55 AM SHEARING SHED WORKER HC CBC W/ AUTOMATED DIFF Routine 08/11/2022 2:55 AM SHEARING SHED WORKER HC BASIC METABOLIC PANEL Routine 08/11/2022 2:55 AM SHEARING SHED WORKER CHEST SINGLE VIEW Routine 08/11/2022 12:52 AM SHEARING SHED WORKER HC LACTIC ACID(LACTATE) Routine 08/10/2022 9:54 PM SHEARING SHED WORKER CLEAR TOP EXTRA URINE Routine 08/10/2022 TUBE 9:30 PM SHEARING SHED WORKER URINALYSIS MICROSCOPIC Routine 08/10/2022 REFLEX TO CULTURE 9:30 PM SHEARING SHED WORKER HC URINALYSIS UAR Routine 08/10/2022 9:30 PM SHEARING SHED WORKER HC PROLCALCITONIN (PROCA) Routine 08/10/2022 9:30 PM SHEARING SHED WORKER CULTURE-URINE 08/10/2022 W/SENSITIVITY 9:30 PM SHEARING SHED WORKER GRAM STAIN 08/10/2022 9:30 PM SHEARING SHED WORKER CULTURE-URINE Routine 08/10/2022 W/SENSITIVITY 9:30 PM SHEARING SHED WORKER CULTURE-BLOOD Routine 08/10/2022 W/SENSITIVITY 9:30 PM SHEARING SHED WORKER CULTURE-BLOOD Routine 08/10/2022 W/SENSITIVITY 9:30 PM SHEARING [employer] WORKER CULTURE-RESP,LOWER Routine 08/10/2022 W/SENSITIVITY 9:30 PM SHEARING SHED WORKER HC MRSA PNEUMONIA SCREEN Routine 08/10/2022 9:00 [address] [employer] CT ABD/PELV WO CONTRAST Routine 08/10/2022 9:46 AM [address] [address] CHEST WO CONTRAST Routine 08/10/2022 9:46 AM SHEARING SHED WORKER 2D + DOPPLER ECHO W/ Routine 08/10/2022 CONTRAST 7:59 AM [address] [address] HEAD WO CONTRAST Routine 08/10/2022 6:24 AM SHEARING SHED WORKER HC CALCIUM IONIZED Routine 08/10/2022 2:38 AM SHEARING SHED WORKER HC PHOSPHOROUS, SERUM Routine 08/10/2022 2:38 AM SHEARING SHED WORKER HC MAGNESIUM Routine 08/10/2022 2:38 AM SHEARING SHED WORKER HC CBC W/ AUTOMATED DIFF Routine 08/10/2022 2:38 AM SHEARING SHED WORKER HC BASIC METABOLIC PANEL Routine 08/10/2022 2:38 AM SHEARING SHED WORKER HC Routine 08/10/2022 LIPID-5:CHOL/TRG/HDL/LDL+ 2:38 AM SHEARING SHED WORKER VLDL MRA HEAD WO CONTRAST STAT 08/09/2022 11:45 PM SHEARING SHED WORKER MRI HEAD WO CONTRAST STAT 08/09/2022 11:45 PM SHEARING SHED WORKER FEEDING TUBE PLCMNT Routine 08/09/2022 (ABD/CHEST LMTD) 10:51 PM SHEARING SHED WORKER CHEST SINGLE VIEW STAT 08/09/2022 6:12 PM SHEARING SHED WORKER HC TROPONIN-I 08/09/2022 5:30 PM SHEARING SHED WORKER HC B-TYPE NATRIURETIC 08/09/2022 PEPTIDE 5:30 PM SHEARING SHED WORKER HC BLOOD STAT 08/09/2022 GASES;(CALCULATED 02) 5:30 PM SHEARING SHED WORKER HC COMPREHENSIVE STAT 08/09/2022 METABOLIC PANEL 5:30 PM SHEARING SHED WORKER HC PHOSPHOROUS, SERUM STAT 08/09/2022 5:30 PM SHEARING SHED WORKER HC MAGNESIUM STAT 08/09/2022 5:30 PM SHEARING SHED WORKER HC CBC W/ AUTOMATED DIFF STAT 08/09/2022 5:30 PM SHEARING SHED WORKER HC HEMOGLOBIN A1C Routine 08/09/2022 5:30 PM SHEARING [employer] WORKER IR ARTERIOGRAM NEURO STAT 08/09/2022 5:04 PM SHEARING SHED WORKER TELEMETRY STRIPS-SCAN 08/09/2022 12:00 AM SHEARING SHED WORKER TELEMETRY STRIPS-SCAN 08/09/2022 12:00 AM SHEARING SHED WORKER TELEMETRY STRIPS-SCAN 08/09/2022 12:00 AM SHEARING SHED WORKER TELEMETRY STRIPS-SCAN 08/09/2022 12:00 AM SHEARING SHED WORKER TELEMETRY STRIPS-SCAN 08/09/2022 12:00 AM SHEARING SHED WORKER TELEMETRY STRIPS-SCAN 08/09/2022 12:00 AM SHEARING SHED WORKER TELEMETRY STRIPS-SCAN 08/09/2022 12:00 AM SHE[employer]ING SH[employer] [address] CT HEAD EXTERNAL IMAGING Routine 07/01/2022 Diagn osis unknown 12:10 AM SHEARING SHED WORKER CTA HEAD EXTERNAL IMAGING Routine 07/01/2022 Diag nosis unknown 12:05 AM SHEARING SHED WORKER CTA HEAD EXTERNAL IMAGING Routine 07/01/2022 Diag nosis unknown 12:00 AM SHEARING SHED WORKER from Last 3 Months Results * SWALLOW MOTION SERIES (09/13/2022 2:28 PM CDT) Only the most recent of 2 results within the time period is included. Modality Anatomical Region Laterality Radio Fluoroscopy NECK Anatomical Location / Laterality Collection Method / Volume Juvenal ection Time Received Time Specimen (Source) 09/13/2022 2:28 PM CDT Impressions 09/13/2022 5:34 PM CDT FINDINGS/IMPRESSION: 1. Silent aspiration with thin consist ency barium. 2. Questionable aspiration with nectar consistency barium. There is at least deep laryngeal penetration with this consistency. 3. Deep laryngeal penetration with hon ey consistency barium. 4. Please see separately dictated repo rt from the Department of Speech Pathology for further description. By my electronic signature, I attest that I have personally reviewed the images for this examination and formulated the interpretations and opinions expressed in this report Finalized by Christiano Luna D.O. on 09/13/2022 5:34 PM. Dictated by Rusty Reynoso M.D. on 09/13/2022 2:28 PM. Narrative 09/13/2022 5:34 PM CDT TEMPORARY CLINICAL HISTORY: Dysphagia. TECHNIQUE: The procedure was performed in conjunction with members of the department of speech pathology. Video fluoroscopy was performed during swallowing of various consistencies of barium. The patient tolerated the procedure well and left the department in stable condition. TOTAL FLUOROSCOPY TIME: 240 seconds COMPARISON: None. Procedure Note Christiano Luna, DO - 09/13/2022 TEMPORARY CLINICAL HISTORY: Dysphagia. TECHNIQUE: The procedure was performed in conjunction with members of the department of speech pathology. Video fluoroscopy was performed during swallowing of various consistencies of barium. The patient tolerated the procedure well and left the department in stable condition. TOTAL FLUOROSCOPY TIME: 240 seconds COMPARISON: None. IMPRESSION FINDINGS/IMPRESSION: 1. Silent aspiration with thin consiste ncy barium. 2. Questionable aspiration with nectar consistency barium. There is at least deep laryngeal penetration with this consistency. 3. Deep laryngeal penetration with tatyana y consistency barium. 4. Please see separately dictated repor t from the Department of Speech Pathology for further description. By my electronic signature, I attest that I have personally reviewed the images for this examination and formulated the interpretations and opinions expressed in this report Finalized by Christiano Luna D.O. on 09/13/2022 5:34 PM. Dictated by Rusty Reynoso M.D. on 09/13/2022 2:28 PM. Esme Trinh MD FLUOROSCOPY ORDERABLES * (ABNORMAL) CBC Flatora (09/13/2022 6:43 AM CDT) Only the most recent of 10 results within the time period is included. Pathologist Signature Component Value Ref Test Method Analysis Performed A t Range Time White Blood Cells 7.0 4.5 - 09/13/2022 [facility] DE PT PATH AND 11.0 7:45 AM LAB MEDICINE K/UL CDT RBC 4.34 (L) 4.4 - 09/13/2022 [facility] DEPT PAT H AND 5.5 M/UL 7:45 AM LAB MEDICINE CDT Hemoglobin 13.1 (L) 13.5 - 09/13/2022 [facility] DEPT PAT H AND 16.5 7:45 AM LAB MEDICINE GM/DL CDT Hematocrit 39.5 (L) 40 - 50 09/13/2022 [facility] DEPT PAT H AND % 7:45 AM LAB MEDICINE CDT MCV 91.0 80 - 100 09/13/2022 [facility] DEPT PAT H AND FL 7:45 AM LAB MEDICINE CDT MCH 30.3 26 - 34 09/13/2022 [facility] DEPT PAT H AND PG 7:45 AM LAB MEDICINE CDT MCHC 33.2 32.0 - 09/13/2022 [facility] DEPT PAT H AND 36.0 7:45 AM LAB MEDICINE G/DL CDT RDW 14.8 11 - 15 09/13/2022 [facility] DEPT PAT H AND % 7:45 AM LAB MEDICINE CDT Platelet Count 192 150 - 09/13/2022 [facility] DEPT PATH AND 400 K/UL 7:45 AM LAB MEDICINE CDT MPV 9.5 7 - 11 [facility] FL 7:45 AM LAB MEDICINE CDT Anatomical Location / Laterality Collection Method / Volume Juvenal ection Time Received Time Specimen (Source) 09/13/2022 6:43 AM CDT 09/14/19 23 7:16 AM CDT Ryan Seay DO LABORATORY ORDERABLES City/State/ZIP Code Phone Number Performing [place] [address] [facility] DEPT PATH AND [address] [facility]. LAB MEDICINE * PHOSPHORUS (09/13/2022 6:43 AM CDT) Only the most recent of 10 results within the time period is included. Pathologist Signature Component Value Ref Test Method Analysis Performed A t Range Time Phosphorus 2.5 2.0 - 09/13/2022 [facility] DEPT PAT H AND 4.5 8:11 AM LAB MEDICINE MG/DL CDT Anatomical Location / Laterality Collection Method / Volume Juvenal ection Time Received Time Specimen (Source) 09/13/2022 6:43 AM CDT 09/14/19 23 7:16 AM CDT Ryan [employer] LABORATORY ORDERABLES [facility]/ZIP Code Phone Number Performing [place] [address] [employer] DEPT PATH AND [address] LAB MEDICINE * MAGNESIUM (09/13/2022 6:43 AM CDT) Only the most recent of 10 results within the time period is included. Pathologist Signature Component Value Ref Test Method Analysis Performed A t Range Time Magnesium 1.9 1.6 - 09/13/2022 [facility] DEPT PAT H AND 2.6 8:11 AM LAB MEDICINE mg/dL CDT Anatomical Location / Laterality Collection Method / Volume Juvenal ection Time Received Time Specimen (Source) 09/13/2022 6:43 AM CDT 09/14/19 7:16 AM CDT Ryan [employer] ORDER[facility]ocean [facility]/ZIP Code Phone Number Performing [place] [address] [employer] DEPT PATH AND [address] LAB MEDICINE * (ABNORMAL) BASIC METABOLIC PANEL (09/13/2022 6:43 AM CDT) Only the most recent of 14 results within the time period is included. Pathologist Signature Component Value Ref Test Method Analysis Performed A t Range Time Sodium 139 137 - 09/13/2022 [facility] DEPT PAT H AND 147 8:11 AM LAB MEDICINE MMOL/L CDT Potassium 3.3 (L) 3.5 - 09/13/2022 [facility] DEPT PAT H AND 5.1 8:11 AM LAB MEDICINE MMOL/L CDT Chloride 108 98 - 110 09/13/2022 [facility] DEPT PAT H AND MMOL/L 8:11 AM LAB MEDICINE CDT CO2 23 21 - 30 09/13/2022 [facility] DEPT PAT H AND MMOL/L 8:11 AM LAB MEDICINE CDT Anion Gap 8 3 - 12 09/13/2022 [facility] DEPT PAT H AND 8:11 AM LAB MEDICINE CDT Glucose 157 (H) 70 - 100 09/13/2022 [facility] DEPT PAT H AND MG/DL 8:11 AM LAB MEDICINE CDT Blood Urea Nitrogen 31 (H) 7 - 25 09/13/2022 [facility] DEPT PATH AND MG/DL 8:11 AM LAB MEDICINE CDT Creatinine 1.60 (H) 0.4 - 09/13/2022 [facility] DEPT PAT H AND 1.24 8:11 AM LAB MEDICINE MG/DL CDT Calcium 8.8 8.5 - 09/13/2022 [facility] DEPT PAT H AND 10.6 8:11 AM LAB MEDICINE MG/DL CDT eGFR 44 (L) >60 09/13/2022 [facility] DEPT PAT H AND mL/min 8:11 AM LAB MEDICINE CDT Comment: eGFR calculated using the CKD-EPIcr_R equation Anatomical Location / Laterality Collection Method / Volume Juvenal ection Time Received Time Specimen (Source) 09/13/2022 6:43 AM CDT 09/14/19 23 7:16 AM CDT Ryan Seay DO LABORATORY ORDERABLES City/State/ZIP Code Phone Number Performing [place] [address] [facility] DEPT PATH AND [address] [facility] LAB MEDICINE * (ABNORMAL) CBC AND DIFF (09/10/2022 3:10 PM CDT) Only the most recent of 7 results within the time period is included. Pathologist Signature Component Value Ref Test Method Analysis Performed A t Range Time White Blood Cells 9.4 4.5 - 09/10/2022 [facility] DE PT PATH AND 11.0 4:13 PM LAB MEDICINE K/UL CDT RBC 4.50 4.4 - 09/10/2022 [facility] DEPT PAT H AND 5.5 M/UL 4:13 PM LAB MEDICINE CDT Hemoglobin 13.7 13.5 - 09/10/2022 [facility] DEPT PAT H AND 16.5 4:13 PM LAB MEDICINE GM/DL CDT Hematocrit 40.7 40 - 50 09/10/2022 [facility] DEPT PAT H AND % 4:13 PM LAB MEDICINE CDT MCV 90.5 80 - 100 09/10/2022 [facility] DEPT PAT H AND FL 4:13 PM LAB MEDICINE CDT MCH 30.4 26 - 34 09/10/2022 [facility] DEPT PAT H AND PG 4:13 PM LAB MEDICINE CDT MCHC 33.6 32.0 - 09/10/2022 [facility] DEPT PAT H AND 36.0 4:13 PM LAB MEDICINE G/DL CDT RDW 14.6 11 - 15 09/10/2022 [facility] DEPT PAT H AND % 4:13 PM LAB MEDICINE CDT Platelet Count 193 150 - 09/10/2022 [facility] DEPT PATH AND 400 K/UL 4:13 PM LAB MEDICINE CDT MPV 9.7 7 - 11 09/10/2022 [facility] DEPT PAT H AND FL 4:13 PM LAB MEDICINE CDT Neutrophils 73 41 - 77 09/10/2022 [facility] DEPT PAT H AND % 4:13 PM LAB MEDICINE CDT Lymphocytes 9 (L) 24 - 44 09/10/2022 [facility] DEPT PAT H AND % 4:13 PM LAB MEDICINE CDT Monocytes 13 (H) 4 - 12 % 09/10/2022 [facility] DEPT PAT H AND 4:13 PM LAB MEDICINE CDT Eosinophils 4 0 - 5 % 09/10/2022 [facility] DEPT PAT H AND 4:13 PM LAB MEDICINE CDT Basophils 1 0 - 2 % 09/10/2022 [facility] DEPT PAT H AND 4:13 PM LAB MEDICINE CDT Absolute Neutrophil 6.98 1.8 - 09/10/2022 [facility] DEPT PATH AND Count 7.0 K/UL 4:13 PM LAB MEDICINE CDT Absolute Lymph Count 0.81 (L) 1.0 - 09/10/2022 [facility] DEPT PATH AND 4.8 K/UL 4:13 PM LAB MEDICINE CDT Absolute Monocyte 1.21 (H) 0 - 0.80 09/10/2022 [facility] DE PT PATH AND Count K/UL 4:13 PM LAB MEDICINE CDT Absolute Eosinophil 0.33 0 - 0.45 09/10/2022 [facility] DEPT PATH AND Count K/UL 4:13 PM LAB MEDICINE CDT Absolute Basophil 0.04 0 - 0.20 09/10/2022 [facility] DE PT PATH AND Count K/UL 4:13 PM LAB MEDICINE CDT Anatomical Location / Laterality Collection Method / Volume Juvenal ection Time Received Time Specimen (Source) BLOOD / Unknown 09/10/2022 3:10 PM CDT 09/11/19 3:58 PM CDT Esme Trinh MD LABORATORY ORDERABLES City/State/ZIP Code Phone Number Performing Address Organization [place], [place] [id number] [place], [place] [id number] PATH AND [address] [facility] LAB MEDICINE * LACTIC ACID(LACTATE) (09/10/2022 3:10 PM CDT) Only the most recent of 2 results within the time period is included. Pathologist Signature Component Value Ref Test Method Analysis Performed A t Range Time Lactic Acid 0.9 0.5 - 09/10/2022 [facility] DEPT PAT H AND 2.0 4:42 PM LAB MEDICINE MMOL/L CDT Anatomical Location / Laterality Collection Method / Volume Juvenal ection Time Received Time Specimen (Source) BLOOD / Unknown 09/10/2022 3:10 PM CDT 09/11/19 3:58 PM CDT Esme Trinh MD LABORATORY ORDERABLES [facility]/ZIP Code Phone Number Performing [place] [address] [facility] AND [address] [facility] LAB MEDICINE * CHEST SINGLE VIEW (09/10/2022 3:04 PM CDT) Only the most recent of 3 results within the time period is included. Modality Anatomical Region Laterality Computed Radiography CHEST Anatomical Location / Laterality Collection Method / Volume Juvenal ection Time Received Time Specimen (Source) 09/10/2022 3:06 PM CDT Impressions 09/10/2022 4:32 PM CDT Similar basal predominant lung opacities which may reflect atelectasis or scarring. Lung bases are suboptimally characterized and aspiration would be difficult to entirely exclude if patient is high-risk. Approved by Cam Holguin MD on 09/10/2022 4:14 PM By my electronic signature, I attest that I have personally reviewed the images for this examination and formulated the interpretations and opinions expressed in this report Finalized by Frank Caldera MD on 09/10/2022 4:32 PM. Dictated by Cam Holguin MD on 09/10/2022 3:06 PM. Narrative 09/10/2022 4:32 PM CDT CHEST SINGLE VIEW INDICATION: Evaluation for aspiration pneumonitis. COMPARISON STUDY: 08/11/2022, CHEST SINGLE VIEW FINDINGS: Support Devices: Loop recorder overlies the chest wall. Enteric tube has been removed. Lungs/Pleura: Similar left greater than right bibasilar opacities. No pleural effusion. Heart and Mediastinum: The cardiomediastinal silhouette remains stable mild elevation of the left diaphragm. Previous CABG. Procedure Note Frank Caldera MD - 09/10/2022 CHEST SINGLE VIEW INDICATION: Evaluation for aspiration pneumonitis. COMPARISON STUDY: 08/11/2022, CHEST SINGLE VIEW FINDINGS: Support Devices: Loop recorder overlies the chest wall. Enteric tube has been removed. Lungs/Pleura: Similar left greater than right bibasilar opacities. No pleural effusion. Heart and Mediastinum: The cardiomediastinal silhouette remains stable mild elevation of the left diaphragm. Previous CABG. IMPRESSION Similar basal predominant lung opacities which may reflect atelectasis or scarring. Lung bases are suboptimally characterized and aspiration would be difficult to entirely exclude if patient is high-risk. Approved by Cam Holguin MD on 09/10/2022 4:14 PM By my electronic signature, I attest that I have personally reviewed the images for this examination and formulated the interpretations and opinions expressed in this report Finalized by Frank Caldera MD on 09/10/2022 4:32 PM. Dictated by Cam Holguin MD on 09/10/2022 3:06 PM. Esme Trinh MD DIAGNOSTIC IMAGING ORDERABL ES * ECG 12-LEAD (09/10/2022 10:04 AM CDT) Pathologist Signature Component Value Ref Test Method Analysis Performed A t Range Time VENTRICULAR RATE 65 BPM GE MUSE P-R INTERVAL 140 ms GE MUSE QRS DURATION 100 ms GE MUSE Q-T INTERVAL 404 ms GE MUSE QTC CALCULATION 420 ms GE MUSE (BAZETT) P AXIS 34 degrees GE MUSE R AXIS 29 degrees GE MUSE T AXIS 50 degrees GE MUSE Anatomical Location / Laterality Collection Method / Volume Juvenal ection Time Received Time Specimen (Source) 09/10/2022 10:04 AM CDT 09/11/19 6:09 PM CDT Impressions GE MUSE - 09/10/2022 6:09 PM CDT Normal sinus rhythm RSR' or QR pattern in V1 suggests right ventricular conduction delay Nonspecific T wave abnormality Abnormal ECG Confirmed by Alexa Vargas ([id number]) on 09/10/2022 6:09:14 PM Narrative Procedure Note Alexa Vargas MD - 09/10/2022 IMPRESSION Normal sinus rhythm RSR' or QR pattern in V1 suggests right ventricular conduction delay Nonspecific T wave abnormality Abnormal ECG Confirmed by Alexa Vargas ([id number]) on 09/10/2022 6:09:14 PM Esme Trinh MD ECG ORDERABLES City/State/ZIP Code Phone Number Performing Address Organization GE MUSE * (ABNORMAL) COMPREHENSIVE METABOLIC PANEL (09/10/2022 7:20 AM CDT) Only the most recent of 5 results within the time period is included. Pathologist Signature Component Value Ref Test Method Analysis Performed A t Range Time Sodium 140 137 - 09/10/2022 [facility] DEPT PAT H AND 147 8:20 AM LAB MEDICINE MMOL/L CDT Potassium 4.0 3.5 - 09/10/2022 [facility] DEPT PAT H AND 5.1 8:20 AM LAB MEDICINE MMOL/L CDT Chloride 105 98 - 110 09/10/2022 [facility] DEPT PAT H AND MMOL/L 8:20 AM LAB MEDICINE CDT Glucose 143 (H) 70 - 100 09/10/2022 [facility] DEPT PAT H AND MG/DL 8:20 AM LAB MEDICINE CDT Blood Urea Nitrogen 28 (H) 7 - 25 09/10/2022 [facility] DEPT PATH AND MG/DL 8:20 AM LAB MEDICINE CDT Creatinine 1.67 (H) 0.4 - 09/10/2022 [facility] DEPT PAT H AND 1.24 8:20 AM LAB MEDICINE MG/DL CDT Calcium 9.4 8.5 - 09/10/2022 [facility] DEPT PAT H AND 10.6 8:20 AM LAB MEDICINE MG/DL CDT Total Protein 5.8 (L) 6.0 - 09/10/2022 [facility] DEPT P ATH AND 8.0 G/DL 8:20 AM LAB MEDICINE CDT Total Bilirubin 0.4 0.3 - 09/10/2022 [facility] DEPT PATH AND 1.2 8:20 AM LAB MEDICINE MG/DL CDT Albumin 3.1 (L) 3.5 - 09/10/2022 [facility] DEPT PAT H AND 5.0 G/DL 8:20 AM LAB MEDICINE CDT Alk Phosphatase 84 25 - 110 09/10/2022 [facility] DEPT PATH AND U/L 8:20 AM LAB MEDICINE CDT AST (SGOT) 17 7 - 40 09/10/2022 [facility] DEPT PAT H AND U/L 8:20 AM LAB MEDICINE CDT CO2 24 21 - 30 09/10/2022 [facility] DEPT PAT H AND MMOL/L 8:20 AM LAB MEDICINE CDT ALT (SGPT) 17 7 - 56 09/10/2022 [facility] DEPT PAT H AND U/L 8:20 AM LAB MEDICINE CDT Anion Gap 11 3 - 12 09/10/2022 [facility] DEPT PAT H AND 8:20 AM LAB MEDICINE CDT eGFR 42 (L) >60 09/10/2022 [facility] DEPT PAT H AND mL/min 8:20 AM LAB MEDICINE CDT Comment: eGFR calculated using the CKD-EPIcr_R equation Anatomical Location / Laterality Collection Method / Volume Juvenal ection Time Received Time Specimen (Source) BLOOD / Unknown 09/10/2022 7:20 AM CDT 09/11/19 7:24 AM CDT Esme Trinh MD LABORATORY ORDERABLES City/State/ZIP Code Phone Number Performing [place] [address] [facility] DEPT PATH AND [address] [facility] LAB MEDICINE * (ABNORMAL) BASIC METABOLIC PANEL CELLULAR THERAPEUTICS (08/31/2022 7:43 AM SHEARING SHED WORKER) Only the most recent of 5 results within the time period is included. Pathologist Signature Component Value Ref Test Method Analysis Performed A t Range Time Sodium 140 137 - 08/31/2022 [facility] DEPT PAT H AND 147 9:10 AM LAB MEDICINE MMOL/L SHEARING SHED WORKER Potassium 3.7 3.5 - 08/31/2022 [facility] DEPT PAT H AND 5.1 9:10 AM LAB MEDICINE MMOL/L [employer]ING [employer] WORKER Chloride 106 98 - 110 08/31/2022 [facility] DEPT PAT H AND MMOL/L 9:10 AM LAB MEDICINE SHEARING SHED WORKER CO2 25 21 - 30 08/31/2022 [facility] DEPT PAT H AND MMOL/L 9:10 AM LAB MEDICINE SHE[employer]ING [employer] WORKER Anion Gap 9 3 - 12 08/31/2022 [facility] DEPT PAT H AND 9:10 AM LAB MEDICINE SHEARING SH[employer] WORKER Glucose 189 (H) 70 - 100 08/31/2022 [facility] DEPT PAT H AND MG/DL 9:10 AM LAB MEDICINE SHEARING [employer] WORKER Blood Urea Nitrogen 40 (H) 7 - 25 08/31/2022 [facility] DEPT PATH AND MG/DL 9:10 AM LAB MEDICINE SHE[employer]ING [employer] WORKER Creatinine 1.77 (H) 0.4 - 08/31/2022 [facility] DEPT PAT H AND 1.24 9:10 AM LAB MEDICINE MG/DL SHE[employer]ING [employer] WORKER Calcium 8.9 8.5 - 08/31/2022 [facility] DEPT PAT H AND 10.6 9:10 AM LAB MEDICINE MG/DL SHE[employer]ING [employer] WORKER eGFR 39 (L) >60 08/31/2022 [facility] DEPT PAT H AND mL/min 9:10 AM LAB MEDICINE SHE[employer]ING [employer] WORKER Comment: eGFR calculated using the CKD-EPIcr_R equation Anatomical Location / Laterality Collection Method / Volume Juvenal ection Time Received Time Specimen (Source) BLOOD / Unknown 08/31/2022 7:43 AM SHEARING SHED WORKER 09/01/19 8:11 AM SHEARING SHED WORKER Esme Trinh MD LABORATORY ORDERABLES City/State/ZIP Code Phone Number Performing [place] [address] [facility] DEPT PATH AND [address] [facility] LAB MEDICINE * (ABNORMAL) CBC (08/24/2022 6:34 AM SHEARING SHED WORKER) Only the most recent of 7 results within the time period is included. Pathologist Signature Component Value Ref Test Method Analysis Performed A t Range Time White Blood Cells 11.5 (H) 4.5 - 08/24/2022 [facility] DE PT PATH AND 11.0 7:19 AM LAB MEDICINE K/UL [employer]ING [employer] WORKER RBC 4.73 4.4 - 08/24/2022 [facility] DEPT PAT H AND 5.5 M/UL 7:19 AM LAB MEDICINE SHE[employer]ING [employer] WORKER Hemoglobin 13.9 13.5 - 08/24/2022 [facility] DEPT PAT H AND 16.5 7:19 AM LAB MEDICINE GM/DL [employer] WORKER Hematocrit 43.1 40 - 50 08/24/2022 [facility] DEPT PAT H AND % 7:19 AM LAB MEDICINE [employer]ING [employer] WORKER MCV 91.1 80 - 100 08/24/2022 [facility] DEPT PAT H AND FL 7:19 AM LAB MEDICINE [employer]ING [employer] WORKER MCH 29.5 26 - 34 08/24/2022 [facility] DEPT PAT H AND PG 7:19 AM LAB MEDICINE SHEARING SH[employer] WORKER MCHC 32.4 32.0 - 08/24/2022 [facility] DEPT PAT H AND 36.0 7:19 AM LAB MEDICINE G/DL [employer]ING [employer] WORKER RDW 14.2 11 - 15 08/24/2022 [facility] DEPT PAT H AND % 7:19 AM LAB MEDICINE SHEARING SHED WORKER Platelet Count 275 150 - 08/24/2022 [facility] DEPT PATH AND 400 K/UL 7:19 AM LAB MEDICINE SHEARING SHED WORKER MPV 9.6 7 - 11 08/24/2022 [facility] DEPT PAT H AND FL 7:19 AM LAB MEDICINE SHEARING SH[employer] WORKER Anatomical Location / Laterality Collection Method / Volume Juvenal ection Time Received Time Specimen (Source) BLOOD / Unknown 08/24/2022 6:34 AM SHEARING SHED WORKER 08/24/19 6:35 AM SHEARING SHED WORKER Bart Mandujano DO LABORATORY ORDERABLES City/State/ZIP Code Phone Number Performing [place] [address] [facility] DEPT PATH AND [address] [facility] LAB MEDICINE * (ABNORMAL) POC GLUCOSE (08/23/2022 8:54 PM SHEARING SHED WORKER) Only the most recent of 2 results within the time period is included. Pathologist Signature Component Value Ref Test Method Analysis Performed A t Range Time Glucose, POC 128 (H) 70 - 100 08/23/2022 [facility] GE MG/DL 8:55 PM TOWER A [employer]ING [employer] WORKER Anatomical Location / Laterality Collection Method / Volume Juvenal ection Time Received Time Specimen (Source) 08/23/2022 8:54 PM SHEARING SHED WORKER 08/23/19 8:55 PM SHEARING SHED WORKER Bart Mandujano DO OTHER LABORATORY City/State/ZIP Code Phone Number Performing Address Organization [address] [facility] A * IR GASTROSTOMY TUBE PLACEMENT (08/20/2022 4:08 PM SHEARING SHED WORKER) Modality Anatomical Region Laterality X-Ray Angiography Anatomical Location / Laterality Collection Method / Volume Juvenal ection Time Received Time Specimen (Source) 08/20/2022 7:12 PM SHEARING SHED WORKER Impressions 08/21/2022 8:39 AM SHEARING SHED WORKER Successful image guided placement of a gastric tube as described I, Alden Winkler M.D, the attending radiologist, was available for the critical and tineo portions of the procedure with a midlevel, resident, and/or fellow participating. Overlapping portions were non tineo and I was immediately available. I interpret the critical and tineo portion of this procedure. @TT Approved by Misti Rm MD on 08/20/2022 7:13 PM By my electronic signature, I attest that I have personally reviewed the images for this examination and formulated the interpretations and opinions expressed in this report Finalized by Alden Winkler M.D. on 08/21/2022 8:39 AM. Dictated by Misti Rm MD on 08/20/2022 7:12 PM. Narrative 08/21/2022 8:39 AM SHEARING SHED WORKER IMAGE-GUIDED GASTRIC TUBE PLACEMENT INDICATION: Patient with dysphasia secondary to stroke TASSEL CLIPPER: Misti Rm M.D. and Alden Winkler M.D. TUBE: Gastric tube Sedation Medication: Monitored anesthesia care was provided for this patient. Please see anesthesia notes for further details. 1 g of IV glucagon was administered. PROCEDURE: The risks, benefits, and alternatives to the procedure and sedation were explained and written informed consent obtained. The mid and left upper abdomen were prepped and draped in the usual sterile fashion. Intravenous glucagon was given, and the stomach was inflated with air via a nasogastric tube. The liver was visualized on US and marked on the skin and the stomach was visualized fluoroscopically to exclude the presence of overlying bowel. The skin and subcutaneous tissues overlying the stomach were infiltrated with 2% Lidocaine without epinephrine. 3 stay sutures/T-fasteners were placed to tack the anterior wall of the stomach against the anterior abdominal wall. A dermatotomy was made between the stay sutures, and the needle was inserted into the stomach. An Amplatz superstiff wire was advanced into the stomach, and the tract was serially dilated to a 22 [place] peel-away sheath. A gastric tube was advanced over the wire into the stomach. Intragastric position was again confirmed with contrast injection. Balloon was inflated with 20 mL of tap water. The patient tolerated the procedure well, without complication. FINDINGS: A documentation image demonstrates the gastric tube well-positioned. Procedure Note Alden Winkler MD - 08/21/2022 IMAGE-GUIDED GASTRIC TUBE PLACEMENT INDICATION: Patient with dysphasia secondary to stroke TASSEL CLIPPER: Misti Rm M.D. and Alden Winkler M.D. TUBE: Gastric tube Sedation Medication: Monitored anesthesia care was provided for this patient. Please see anesthesia notes for further details. 1 g of IV glucagon was administered. PROCEDURE: The risks, benefits, and alternatives to the procedure and sedation were explained and written informed consent obtained. The mid and left upper abdomen were prepped and draped in the usual sterile fashion. Intravenous glucagon was given, and the stomach was inflated with air via a nasogastric tube. The liver was visualized on US and marked on the skin and the stomach was visualized fluoroscopically to exclude the presence of overlying bowel. The skin and subcutaneous tissues overlying the stomach were infiltrated with 2% Lidocaine without epinephrine. 3 stay sutures/T-fasteners were placed to tack the anterior wall of the stomach against the anterior abdominal wall. A dermatotomy was made between the stay sutures, and the needle was inserted into the stomach. An Amplatz superstiff wire was advanced into the stomach, and the tract was serially dilated to a 22 [place] peel-away sheath. A gastric tube was advanced over the wire into the stomach. Intragastric position was again confirmed with contrast injection. Balloon was inflated with 20 mL of tap water. The patient tolerated the procedure well, without complication. FINDINGS: A documentation image demonstrates the gastric tube well-positioned. IMPRESSION Successful image guided placement of a gastric tube as described I, Alden Winkler M.D, the attending radiologist, was available for the critical and tineo portions of the procedure with a midlevel, resident, and/or fellow participating. Overlapping portions were non tineo and I was immediately available. I interpret the critical and tineo portion of this procedure. @TT Approved by Misti Rm MD on 08/20/2022 7:13 PM By my electronic signature, I attest that I have personally reviewed the images for this examination and formulated the interpretations and opinions expressed in this report Finalized by Alden Winkler M.D. on 08/21/2022 8:39 AM. Dictated by Misti Rm MD on 08/20/2022 7:12 PM. Angeline BLANTON ORDERABLES Aida [employer]LET [employer]SEM[employer] PRESS OPERATOR-AUTOMOTIVE SALESPERSON * TELEMETRY STRIPS-SCAN (08/20/2022 12:00 AM SHEARING SHED WORKER) Narrative 08/20/2022 12:00 AM SHEARING SHED WORKER Ordered by an unspecified provider. Scanned Document PROCEDURE DUMMY ORDERS * TELEMETRY STRIPS-SCAN (08/20/2022 12:00 AM SHEARING SHED WORKER) Narrative 08/20/2022 12:00 AM SHEARING SHED WORKER Ordered by an unspecified provider. Scanned Document PROCEDURE DUMMY ORDERS * TELEMETRY STRIPS-SCAN (08/20/2022 12:00 AM SHEARING SHED WORKER) Narrative 08/20/2022 12:00 AM SHEARING SHED WORKER Ordered by an unspecified provider. Scanned Document PROCEDURE DUMMY ORDERS * TELEMETRY STRIPS-SCAN (08/20/2022 12:00 AM SHEARING SHED WORKER) Narrative 08/20/2022 12:00 AM SHEARING SHED WORKER Ordered by an unspecified provider. Scanned Document PROCEDURE DUMMY ORDERS * TELEMETRY STRIPS-SCAN (08/20/2022 12:00 AM SHEARING SHED WORKER) Narrative 08/20/2022 12:00 AM SHEARING SHED WORKER Ordered by an unspecified provider. Scanned Document PROCEDURE DUMMY ORDERS * TELEMETRY STRIPS-SCAN (08/20/2022 12:00 AM SHEARING SHED WORKER) Narrative 08/20/2022 12:00 AM SHEARING SHED WORKER Ordered by an unspecified provider. Scanned Document PROCEDURE DUMMY ORDERS * TELEMETRY STRIPS-SCAN (08/20/2022 12:00 AM SHEARING SHED WORKER) Narrative 08/20/2022 12:00 AM SHEARING SHED WORKER Ordered by an unspecified provider. Scanned Document PROCEDURE DUMMY ORDERS * TELEMETRY STRIPS-SCAN (08/20/2022 12:00 AM SHEARING SHED WORKER) Narrative 08/20/2022 12:00 AM SHEARING SHED WORKER Ordered by an unspecified provider. Scanned Document PROCEDURE DUMMY ORDERS * TELEMETRY STRIPS-SCAN (08/20/2022 12:00 AM SHEARING SHED WORKER) Narrative 08/20/2022 12:00 AM SHEARING SHED WORKER Ordered by an unspecified provider. Scanned Document PROCEDURE DUMMY ORDERS * TELEMETRY STRIPS-SCAN (08/20/2022 12:00 AM SHEARING SHED WORKER) Narrative 08/20/2022 12:00 AM SHEARING SHED WORKER Ordered by an unspecified provider. Scanned Document PROCEDURE DUMMY ORDERS * TELEMETRY STRIPS-SCAN (08/20/2022 12:00 AM SHEARING SHED WORKER) Narrative 08/20/2022 12:00 AM SHEARING SHED WORKER Ordered by an unspecified provider. Scanned Document PROCEDURE DUMMY ORDERS * TELEMETRY STRIPS-SCAN (08/20/2022 12:00 AM SHEARING SHED WORKER) Narrative 08/20/2022 12:00 AM SHEARING SHED WORKER Ordered by an unspecified provider. Scanned Document PROCEDURE DUMMY ORDERS * TELEMETRY STRIPS-SCAN (08/20/2022 12:00 AM SHEARING SHED WORKER) Narrative 08/20/2022 12:00 AM SHEARING SHED WORKER Ordered by an unspecified provider. Scanned Document PROCEDURE DUMMY ORDERS * TELEMETRY STRIPS-SCAN (08/20/2022 12:00 AM SHEARING SHED WORKER) Narrative 08/20/2022 12:00 AM SHEARING SHED WORKER Ordered by an unspecified provider. Scanned Document PROCEDURE DUMMY ORDERS * TELEMETRY STRIPS-SCAN (08/20/2022 12:00 AM SHEARING SHED WORKER) Narrative 08/20/2022 12:00 AM SHEARING SHED WORKER Ordered by an unspecified provider. Scanned Document PROCEDURE DUMMY ORDERS * TELEMETRY STRIPS-SCAN (08/20/2022 12:00 AM SHEARING SHED WORKER) Narrative 08/20/2022 12:00 AM SHEARING SHED WORKER Ordered by an unspecified provider. Scanned Document PROCEDURE DUMMY ORDERS * TELEMETRY STRIPS-SCAN (08/20/2022 12:00 AM SHEARING SHED WORKER) Narrative 08/20/2022 12:00 AM SHEARING SHED WORKER Ordered by an unspecified provider. Scanned Document PROCEDURE DUMMY ORDERS * TELEMETRY STRIPS-SCAN (08/20/2022 12:00 AM SHEARING SHED WORKER) Narrative 08/20/2022 12:00 AM SHEARING SHED WORKER Ordered by an unspecified provider. Scanned Document PROCEDURE DUMMY ORDERS * TELEMETRY STRIPS-SCAN (08/20/2022 12:00 AM SHEARING SHED WORKER) Narrative 08/20/2022 12:00 AM SHEARING SHED WORKER Ordered by an unspecified provider. Scanned Document PROCEDURE DUMMY ORDERS * TELEMETRY STRIPS-SCAN (08/20/2022 12:00 AM SHEARING SHED WORKER) Narrative 08/20/2022 12:00 AM SHEARING SHED WORKER Ordered by an unspecified provider. Scanned Document PROCEDURE DUMMY ORDERS * TELEMETRY STRIPS-SCAN (08/20/2022 12:00 AM SHEARING SHED WORKER) Narrative 08/20/2022 12:00 AM SHEARING SHED WORKER Ordered by an unspecified provider. Scanned Document PROCEDURE DUMMY ORDERS * TELEMETRY STRIPS-SCAN (08/20/2022 12:00 AM SHEARING SHED WORKER) Narrative 08/20/2022 12:00 AM SHEARING SHED WORKER Ordered by an unspecified provider. Scanned Document PROCEDURE DUMMY ORDERS * KASSI W/O CONTRAST (08/15/2022 2:15 PM SHEARING SHED WORKER) Pathologist Signature Component Value Ref Test Method Analysis Performed A t Range Time BSA 2.15 m2 OTHER OUTSIDE L AB CV ECHO PV SUPPORT ROSENDO Mccallum OTHER OUTSIDE LAB STAFF Cardiology Argenis Epiq OTHER OUTSIDE LAB Ultrasound Machine ECHO EF 65 % OTHER OUTSIDE L AB Modality Anatomical Region Laterality Ultrasound Anatomical Location / Laterality Collection Method / Volume Juvenal ection Time Received Time Specimen (Source) Narrative 08/15/2022 2:42 PM SHEARING SHED WORKER 1. No evidence of interatrial shunting by color Doppler or agitated saline contrast studies. 2. No evidence of intracardiac thrombus, vegetation, or mass. 3. Normal left ventricular size and syst olic function. Estimated ejection fraction of 65%. No segmental wall motion abnormalities. 4. Probably normal right ventricular siz e and contractility. 5. Normal biatrial size. 6. No hemodynamically significant valvul ar abnormalities. 7. No pericardial effusion. No prior transesophageal echocardiogram for comparison. Left Ventricle The left ventricular size, wall thickness and systolic function are normal. The visually estimated ejection fraction is 65%. There are no segmental wall motion abnormalities. Right Ventricle The right ventricle is probably normal in size. The right ventricular systolic function is probably normal. Left Atrium Normal size. No evidence of interatrial shunting by color Doppler or agitated saline contrast studies. No evidence of thrombus in the left atrial appendage. Borderline to low left atrial appendage emptying velocities up to 30 cm/s. No evidence of aneurysmal septal defect, biatrial septal motion measures up to 1.36 cm. Right Atrium Normal size. IVC/SVC Inferior vena cava was not well seen; right atrial pressure could not be estimated. Mitral Valve Normal valve structure. No stenosis. Mild regurgitation. No vegetation. Tricuspid Valve Normal valve structure. No stenosis. Trace regurgitation. No vegetation present. Aortic Valve Normal valve structure. No stenosis. Trace regurgitation. No vegetation present. Pericardium No pericardial effusion. Pulmonary Normal valve structure. No stenosis. Mild regurgitation. No vegetation present. Aorta No significant atherosclerotic plaquing in the thoracic aorta Angeline Shahid ECHO ORDERABLES [place] BULLET ASSEMBLY PRESS OPERATOR-AUTOMOTIVE SALESPERSON * NM PET SCAN [place] (SKULL-THIGHS) (08/15/2022 12:47 PM SHEARING SHED WORKER) Modality Anatomical Region Laterality Nuclear Medicine BODY/CAP Anatomical Location / Laterality Collection Method / Volume Juvenal ection Time Received Time Specimen (Source) 08/15/2022 12:46 PM SHEARING SHED WORKER Impressions 08/15/2022 12:49 PM SHEARING SHED WORKER No discrete hypermetabolic mass or metastatic disease. Finalized by Gaurang Lopez M.D. on 08/15/2022 12:49 PM. Dictated by Gaurang Lopez M.D. on 08/15/2022 12:46 PM. Narrative 08/15/2022 12:49 PM SHEARING SHED WORKER NM PET SCAN [place] (SKULL-THIGHS) Radiopharmaceutical: 11.8 mCi F-18 Fluorodeoxyglucose (FDG) IV. Clinical Indication: Stroke. Concern for malignancy. Technique: PET imaging was performed from the skull to thighs 52 minutes after tracer administration. Low dose non-contrast CT imaging was performed for attenuation correction and localization purposes. Current mean hepatic SUV (reported for engagement quality consultant purposes) is 2.6. Blood glucose level (at the time of radiopharmaceutical administration): 85 mg/dL Comparison: CT examinations within the last week. FINDINGS: Head/Neck: No suspicious hypermetabolic lesion(s). Chest: No suspicious hypermetabolic lesion(s). Abdomen/Pelvis: No suspicious hypermetabolic lesion(s). Osseous Structures: No suspicious hypermetabolic lesion(s). Additional CT Findings: See recent CT examinations. Procedure Note Gaurang Lopez II, MD - 08/15/2022 NM PET SCAN [place] (SKULL-THIGHS) Radiopharmaceutical: 11.8 mCi F-18 Fluorodeoxyglucose (FDG) IV. Clinical Indication: Stroke. Concern for malignancy. Technique: PET imaging was performed from the skull to thighs 52 minutes after tracer administration. Low dose non-contrast CT imaging was performed for attenuation correction and localization purposes. Current mean hepatic SUV (reported for engagement quality consultant purposes) is 2.6. Blood glucose level (at the time of radiopharmaceutical administration): 85 mg/dL Comparison: CT examinations within the last week. FINDINGS: Head/Neck: No suspicious hypermetabolic lesion(s). Chest: No suspicious hypermetabolic lesion(s). Abdomen/Pelvis: No suspicious hypermetabolic lesion(s). Osseous Structures: No suspicious hypermetabolic lesion(s). Additional CT Findings: See recent CT examinations. IMPRESSION No discrete hypermetabolic mass or metastatic disease. Finalized by Gaurang Lopez M.D. on 08/15/2022 12:49 PM. Dictated by Gaurang Lopez M.D. on 08/15/2022 12:46 PM. Angeline Shahid [employer] MED ORDERABLES [place] BULLET ASSEMBLY PRESS OPERATOR-AUTOMOTIVE SALESPERSON * BETA 2 GLYCOPROTEIN 1 AB, IGM (08/13/2022 2:49 PM SHEARING SHED WORKER) Pathologist Signature Component Value Ref Test Method Analysis Performed A t Range Time BETA-2 GLY 1 AB IGM 0.2 <20.0 08/14/2022 [facility] DEPT PATH AND U/mL 10:08 AM LAB MEDICINE SHEARING SHED WORKER Anatomical Location / Laterality Collection Method / Volume Juvenal ection Time Received Time Specimen (Source) BLOOD / Unknown 08/13/2022 2:49 PM SHEARING SHED WORKER 08/13/19 2:50 PM SHEARING SHED WORKER Ankush Willis DO LABORATORY ORDERABLES [facility]/ZIP Code Phone Number Performing [place] [address] [facility] DEPT PATH AND [address] [facility] LAB MEDICINE * BETA 2 GLYCOPROTEIN 1 AB, IGG (08/13/2022 2:49 PM SHEARING SHED WORKER) Pathologist Signature Component Value Ref Test Method Analysis Performed A t Range Time BETA-2 GLY 1 AB ICG <1.4 <20.0 08/14/2022 [facility] DEPT PATH AND U/mL 10:08 AM LAB MEDICINE SHEARING SHED WORKER Anatomical Location / Laterality Collection Method / Volume Juvenal ection Time Received Time Specimen (Source) BLOOD / Unknown 08/13/2022 2:49 PM SHEARING SHED WORKER 08/13/19 2:50 PM SHEARING SHED WORKER Ankush Willis LABORATORY ORDERABLES [facility]/ZIP Code Phone Number Performing [place] [address] [facility] DEPT PATH AND [address] [facility] LAB MEDICINE * HEX LUPUS ANTICOAGULANT (08/13/2022 2:49 PM SHEARING SHED WORKER) Pathologist Signature Component Value Ref Test Method Analysis Performed A t Range Time Hexagonal Lupus 1 08/20/2022 REFERENCE LAB Anticoagulant 7:09 PM SHEARING SHED WORKER Comment: Unit: sec This value is NEGATIVE. This is a qualitative assay and is therefore reported as positive for lupus anticoagulant or negative. The quantitative value is provided as an aid in diagnosis. Reference Range: 0 - 11 Test Performed by: [facility] [id number] [address] Anatomical Location / Laterality Collection Method / Volume Juvenal ection Time Received Time Specimen (Source) BLOOD / Unknown 08/13/2022 2:49 PM SHEARING SHED WORKER 08/13/19 2:50 PM SHEARING SHED WORKER Ankush Willis LABORATORY ORDERABLES [facility]/ZIP Code Phone Number Performing Address Organization REFERENCE LAB REFERENCE LAB See results for address. * CARDIOLIPIN AB IGG/IGM (08/13/2022 2:49 PM SHEARING SHED WORKER) Pathologist Signature Component Value Ref Test Method Analysis Performed A t Range Time Cardiolipin, IgG <1.6 <20.0 08/14/2022 [facility] DEP T PATH AND GPL/ML 10:08 AM LAB MEDICINE SHEARING SHED WORKER Cardiolipin, IgM 0.2 <20.0 08/14/2022 [facility] DEP T PATH AND MPL/ML 10:08 AM LAB MEDICINE SHEARING SHED WORKER Anatomical Location / Laterality Collection Method / Volume Juvenal ection Time Received Time Specimen (Source) BLOOD / Unknown 08/13/2022 2:49 PM SHEARING SHED WORKER 08/13/19 23 2:50 PM SHEARING SHED WORKER Ankush Willis LABORATORY ORDERABLES City/State/ZIP Code Phone Number Performing [place] [address] [facility] DEPT PATH AND [address] LAB MEDICINE * IONIZED CALCIUM (08/13/2022 3:12 AM SHEARING SHED WORKER) Only the most recent of 4 results within the time period is included. Pathologist Signature Component Value Ref Test Method Analysis Performed A t Range Time Ionized Calcium 1.20 1.0 - 08/13/2022 [facility] DEPT PATH AND 1.3 3:36 AM LAB MEDICINE MMOL/L SHEARING SHED WORKER Anatomical Location / Laterality Collection Method / Volume Juvenal ection Time Received Time Specimen (Source) BLOOD / Unknown 08/13/2022 3:12 AM SHEARING SHED WORKER 08/13/19 3:27 AM SHEARING SHED WORKER Isabel Shahid Yamil LABORATORY ORDERABLES BULLET ASSEMBLY PRESS OPERATOR-AUTOMOTIVE SALESPERSON City/State/ZIP Code Phone Number Performing [place] [address] [facility] DEPT PATH AND [address] LAB MEDICINE * CT HEAD WO CONTRAST (08/11/2022 11:37 PM SHEARING SHED WORKER) Only the most recent of 2 results within the time period is included. Modality Anatomical Region Laterality Computed Tomography Head Anatomical Location / Laterality Collection Method / Volume Juvenal ection Time Received Time Specimen (Source) 08/12/2022 8:34 AM SHEARING SHED WORKER Impressions 08/12/2022 9:08 AM SHEARING SHED WORKER 1. Further evolution of the recent mod erate-sized left MCA territory infarct, with slight increase in localized mass effect. No midline shift, descending herniation or hydrocephalus. 2. No gross hemorrhagic conversion. 3. Redemonstration of old infarcts in the right NILA and MCA territories, left parietal lobe, bilateral cerebellar hemispheres and left caudate head. Superimposed moderate nonspecific supratentorial white matter disease is likely due to chronic microvascular ischemic change. By my electronic signature, I attest that I have personally reviewed the images for this examination and formulated the interpretations and opinions expressed in this report Finalized by Darwin Bowles M.D. on 08/12/2022 9:08 AM. Dictated by Amarilys Phoenix MD on 08/12/2022 8:34 AM. Narrative 08/12/2022 9:08 AM SHEARING SHED WORKER EXAM: CT HEAD HISTORY: Recent stroke. TECHNIQUE: Multiple contiguous axial images were obtained of the brain without intravenous contrast. COMPARISON: CT head 08/10/2022. MRI and MRA head 08/09/2022. FINDINGS: Evolving moderate-sized recent left MCA territory infarct is now better seen with further decrease in density, and slight increase in localized mass effect. Subtle, curvilinear hyperdensity in the infarct bed (series 2, image 25) probably representing a hyperdense vessel. No gross hemorrhagic conversion. No midline shift or herniation. Chronic infarcts involving the right NILA and MCA territories, left parietal cortex and bilateral cerebellar hemispheres are stable. Old small left caudate head lacunar infarct. Moderate superimposed patchy nonspecific supratentorial white matter disease. Scattered paranasal sinus mucosal thickening with increase in now moderate right maxillary fluid. The mastoid air cells are well-aerated. Partially visualized indwelling left nasoenteric tube remains in place. Endotracheal tube has been removed. Procedure Note Darwin Bowles MD - 08/12/2022 EXAM: CT HEAD HISTORY: Recent stroke. TECHNIQUE: Multiple contiguous axial images were obtained of the brain without intravenous contrast. COMPARISON: CT head 08/10/2022. MRI and MRA head 08/09/2022. FINDINGS: Evolving moderate-sized recent left MCA territory infarct is now better seen with further decrease in density, and slight increase in localized mass effect. Subtle, curvilinear hyperdensity in the infarct bed (series 2, image 25) probably representing a hyperdense vessel. No gross hemorrhagic conversion. No midline shift or herniation. Chronic infarcts involving the right NILA and MCA territories, left parietal cortex and bilateral cerebellar hemispheres are stable. Old small left caudate head lacunar infarct. Moderate superimposed patchy nonspecific supratentorial white matter disease. Scattered paranasal sinus mucosal thickening with increase in now moderate right maxillary fluid. The mastoid air cells are well-aerated. Partially visualized indwelling left nasoenteric tube remains in place. Endotracheal tube has been removed. IMPRESSION 1. Further evolution of the recent mode rate-sized left MCA territory infarct, with slight increase in localized mass effect. No midline shift, descending herniation or hydrocephalus. 2. No gross hemorrhagic conversion. 3. Redemonstration of old infarcts in t he right NILA and MCA territories, left parietal lobe, bilateral cerebellar hemispheres and left caudate head. Superimposed moderate nonspecific supratentorial white matter disease is likely due to chronic microvascular ischemic change. By my electronic signature, I attest that I have personally reviewed the images for this examination and formulated the interpretations and opinions expressed in this report Finalized by Darwin Bowles M.D. on 08/12/2022 9:08 AM. Dictated by Amarilys Phoenix MD on 08/12/2022 8:34 AM. Hernandez Paniagua DO CT ORDERABLES * CT NECK W/CONTRAST (08/11/2022 4:34 AM SHEARING SHED WORKER) Modality Anatomical Region Laterality Computed Tomography HEAD/NECK Anatomical Location / Laterality Collection Method / Volume Juvenal ection Time Received Time Specimen (Source) 08/11/2022 9:58 AM SHEARING SHED WORKER Impressions 08/11/2022 11:11 AM SHEARING SHED WORKER 1. 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 2. No definite evidence of left hypoph aryngeal mass. If there was truly a lesion seen on the left during intubation, direct endoscopy is suggested as a corresponding lesion is not identified by CT. 3. Incompletely evaluated evolving acu te to subacute left MCA infarct and old right NILA and MCA infarcts. 4. 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 By my electronic signature, I attest that I have personally reviewed the images for this examination and formulated the interpretations and opinions expressed in this report Finalized by Darwin Bowles M.D. on 08/11/2022 11:11 AM. Dictated by Jos Guthrie MD on 08/11/2022 9:58 AM. Narrative 08/11/2022 11:[address]ED [address] NECK WITH CONTRAST HISTORY: 77 years old Male, mass in left hypopharynx noticed on intubation TECHNIQUE: CT images of the neck were acquired with intravenous contrast. COMPARISON: Outside CTA head neck 07/01/2022, MRI brain 08/09/2022, CT cap 08/10/2022 FINDINGS: INTRACRANIAL STRUCTURES AND ORBITS: Incompletely evaluated evolving left MCA territory infarct. Old right NILA territory and posterior right MCA territory infarcts with associated encephalomalacia and gliosis. Bilateral lens replacements. SINUSES AND MASTOIDS: Minimal left maxillary mucosal thickening. Mild dependent fluid within the right maxillary sinus. Mild fluid or dependent thickening in the sphenoid sinuses. Mastoid air cells are clear. ORAL CAVITY: Posterior left maxillary molar periapical lucency. Otherwise normal including tongue and floor of mouth. PHARYNGEAL MUCOSA, LARYNX, AND TRACHEA There is retropharyngeal course of the right carotid artery which produces mass effect and effacement of the right oropharyngeal and hypopharyngeal area. There is no nasopharyngeal, hypopharyngeal, or laryngeal mass. No left hypopharyngeal mass is identified. Small amount of secretions within the lower trachea and right mainstem bronchus. There are small calcified tonsil is seen in the right palatine tonsil. LARYNX AND TRACHEA: Normal supraglottic, glottic and subglottic larynx. Normal trachea. LYMPH NODES AND SOFT TISSUES: Indwelling left nasoenteric tube. No suspicious lymph nodes. SALIVARY GLANDS: Normal parotid, submandibular and sublingual glands. THYROID: Atrophic VESSELS AND CAROTID SPACE: Mild atherosclerotic calcifications at the carotid bifurcations. 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 BONES: Old right clavicle fracture deformity. Median sternotomy wires. No destructive osseous lesion. Moderate cervical spondylosis. UPPER THORAX: Mild dependent atelectasis. Small nodule or node along the left minor fissure (image 27 of series 301). This corresponds to a nodule seen on yesterday's CT chest. Please see that report for recommendations for follow-up. Procedure Note Darwin Bowles MD - 08/11/2022 CT NECK WITH CONTRAST HISTORY: 77 years old Male, mass in left hypopharynx noticed on intubation TECHNIQUE: CT images of the neck were acquired with intravenous contrast. COMPARISON: Outside CTA head neck 07/01/2022, MRI brain 08/09/2022, CT cap 08/10/2022 FINDINGS: INTRACRANIAL STRUCTURES AND ORBITS: Incompletely evaluated evolving left MCA territory infarct. Old right NILA territory and posterior right MCA territory infarcts with associated encephalomalacia and gliosis. Bilateral lens replacements. SINUSES AND MASTOIDS: Minimal left maxillary mucosal thickening. Mild dependent fluid within the right maxillary sinus. Mild fluid or dependent thickening in the sphenoid sinuses. Mastoid air cells are clear. ORAL CAVITY: Posterior left maxillary molar periapical lucency. Otherwise normal including tongue and floor of mouth. PHARYNGEAL MUCOSA, LARYNX, AND TRACHEA There is retropharyngeal course of the right carotid artery which produces mass effect and effacement of the right oropharyngeal and hypopharyngeal area. There is no nasopharyngeal, hypopharyngeal, or laryngeal mass. No left hypopharyngeal mass is identified. Small amount of secretions within the lower trachea and right mainstem bronchus. There are small calcified tonsil is seen in the right palatine tonsil. LARYNX AND TRACHEA: Normal supraglottic, glottic and subglottic larynx. Normal trachea. LYMPH NODES AND SOFT TISSUES: Indwelling left nasoenteric tube. No suspicious lymph nodes. SALIVARY GLANDS: Normal parotid, submandibular and sublingual glands. THYROID: Atrophic VESSELS AND CAROTID SPACE: Mild atherosclerotic calcifications at the carotid bifurcations. 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 BONES: Old right clavicle fracture deformity. Median sternotomy wires. No destructive osseous lesion. Moderate cervical spondylosis. UPPER THORAX: Mild dependent atelectasis. Small nodule or node along the left minor fissure (image 27 of series 301). This corresponds to a nodule seen on yesterday's CT chest. Please see that report for recommendations for follow-up. IMPRESSION 1. 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 2. No definite evidence of left hypopha ryngeal mass. If there was truly a lesion seen on the left during intubation, direct endoscopy is suggested as a corresponding lesion is not identified by CT. 3. Incompletely evaluated evolving acut e to subacute left MCA infarct and old right NILA and MCA infarcts. 4. Posterior left maxillary molar perio dontal disease. By my electronic signature, I attest that I have personally reviewed the images for this examination and formulated the interpretations and opinions expressed in this report Finalized by Darwin Bowles M.D. on 08/11/2022 11:11 AM. Dictated by Jos Guthrie MD on 08/11/2022 9:58 AM. Hernandez Paniagua DO CT ORDERABLES * CLEAR TOP EXTRA URINE TUBE (08/10/2022 9:30 PM SHEARING SHED WORKER) Anatomical Location / Laterality Collection Method / Volume Juvenal ection Time Received Time Specimen (Source) URINE SPECIMEN / Unknown 08/10/2022 9:30 PM SHEARING SHED WORKER 08/11/2022 5:18 AM SHEARING SHED WORKER Phuonglucrecia Vásquez URINE ORDERABLES BULLET ASSEMBLY PRESS OPERATOR-AUTOMOTIVE SALESPERSON [facility]/ZIP Code Phone Number [place] [address] [facility] DEPT PATH AND [address] LAB MEDICINE * URINALYSIS MICROSCOPIC REFLEX TO CULTURE (08/10/2022 9:30 PM SHEARING SHED WORKER) Pathologist Signature Component Value Ref Test Method Analysis Performed A t Range Time WBCs,UA 20-50 0 - 2 08/11/2022 [facility] DEPT PAT H AND /HPF 6:24 AM LAB MEDICINE SHEARING SHED WORKER RBCs,UA PACKED 0 - 3 08/11/2022 [facility] DEPT PAT H AND /HPF 6:24 AM LAB MEDICINE SHEARING SHED WORKER Comment,UA Criteria for 08/11/2022 [facility] DEPT PATH AND reflex to 6:24 AM LAB MEDICINE culture are SHEARING SHED WORKER WBC>10, Positive Nitrite, and/or >=+1 leukocytes. If quantity is not sufficient, an addendum will follow. MucousUA TRACE 08/11/2022 [facility] DEPT PATH AND 6:24 AM LAB MEDICINE [employer] Squamous Epithelial 0-2 0 - 5 08/11/2022 [facility] DEPT PATH AND Cells 6:24 AM LAB MEDICINE [employer]ER Amorphous FEW 08/11/2022 [facility] DEPT PATH AND Sedimate,UA 6:24 AM LAB MEDICINE [employer] WORKER Anatomical Location / Laterality Collection Method / Volume Juvenal ection Time Received Time Specimen (Source) URINE SPECIMEN / Unknown 08/10/2022 9:30 PM [employer]ING [employer] WORKER 08/11/2022 5:18 AM SHEARING SHED WORKER Phuonglucrecia Vásquez URINE ORDERABLES BULLET ASSEMBLY PRESS OPERATOR-AUTOMOTIVE SALESPERSON [facility]/State/ZIP Code Phone Number Performing [place] [address] [employer] DEPT PATH AND [address] LAB MEDICINE * (ABNORMAL) URINALYSIS DIPSTICK REFLEX TO CULTURE (08/10/2022 9:30 PM SHE[employer]ING [employer] WORKER) Pathologist Signature Component Value Ref Test Method Analysis Performed A t Range Time Color,UA RED 08/11/2022 [facility] DEPT PATH AND 6:24 AM LAB MEDICINE [employer] Turbidity,UA 1+ (A) CLEAR-CL 08/11/2022 [facility] DEPT PA TH AND EAR 6:24 AM LAB MEDICINE [employer] WORK[employer] Specific 1.028 1.005 - 08/11/2022 [facility] DEPT PAT H AND [place]-Urine 1.030 6:24 AM LAB MEDICINE [employer]ING [employer] WORKER Comment: NOTE NEW REFERENCE RANGES pH,UA 5.0 5.0 - 08/11/2022 [facility] DEPT PAT H AND 8.0 6:24 AM LAB MEDICINE [employer] Protein,UA 2+ (A) NEG-NEG 08/11/2022 [facility] DEPT PAT H AND 6:24 AM LAB MEDICINE [employer] WORK[employer] Glucose,UA NEG NEG-NEG 08/11/2022 [facility] DEPT PAT H AND 6:24 AM LAB MEDICINE [employer]ING [employer] WORKER Ketones,UA NEG NEG-NEG 08/11/2022 [facility] DEPT PAT H AND 6:24 AM LAB MEDICINE [employer] WORKER Bilirubin,UA NEG NEG-NEG 08/11/2022 [facility] DEPT PA TH AND 6:24 AM LAB MEDICINE [employer] WORKER Blood,UA 2+ (A) NEG-NEG 08/11/2022 [facility] DEPT PAT H AND 6:24 AM LAB MEDICINE [employer] WORKER Urobilinogen,UA NORMAL NORM-NOR 08/11/2022 [facility] DEPT PATH AND MAL 6:24 AM LAB MEDICINE SHE[employer]ING [employer] WORKER Nitrite,UA NEG NEG-NEG 08/11/2022 [facility] DEPT PAT H AND 6:24 AM LAB MEDICINE [employer] WORKER Leukocytes,UA 2+ (A) NEG-NEG 08/11/2022 [facility] DEPT P ATH AND 6:24 AM LAB MEDICINE [employer] WORKER Urine Ascorbic Acid, NEG NEG-NEG 08/11/2022 [facility] DEPT PATH AND UA 6:24 AM LAB MEDICINE [employer]ING [employer] WORKER Anatomical Location / Laterality Collection Method / Volume Juvenal ection Time Received Time Specimen (Source) URINE SPECIMEN / Unknown 08/10/2022 9:30 PM [employer]ING [employer] WORKER 08/11/2022 5:18 AM SHEARING SH[employer] WORKER Phuong Vásquez URINE ORDERABLES BULLET ASSEMBLY PRESS OPERATOR-AUTOMOTIVE SALESPERSON City/State/ZIP Code Phone Number [place] [address] [facility] DEPT PATH AND [address] LAB MEDICINE * PROCALCITONIN (08/10/2022 9:30 PM SHEARING [employer] WORKER) Pathologist Signature Component Value Ref Test Method Analysis Performed A t Range Time Procalcitonin 0.11 ng/mL 08/10/2022 [facility] DEPT P ATH AND 10:29 PM LAB MEDICINE [employer] WORKER Comment: Suspected Lower Respiratory Tract Infection: >0.25 ng/mL-Increased likeihood bacterial infection Suspected Sepsis: >0.5 ng/mL-Increased likelihood sepsis >2.0 ng/mL-High risk of sepsis/septic shock Anatomical Location / Laterality Collection Method / Volume Juvenal ection Time Received Time Specimen (Source) BLOOD / Unknown 08/10/2022 9:30 PM [employer]ING [employer] WORKER 08/10/19 9:52 PM SHEARING SH[employer] WORKER Phuong Vásquez LABORATORY ORDERABLES BULLET ASSEMBLY PRESS OPERATOR-AUTOMOTIVE SALESPERSON City/State/ZIP Code Phone Number [place]forming [place] [address] [facility] DEPT PATH AND [address] LAB MEDICINE * GRAM STAIN (08/10/2022 9:30 PM SHEARING [employer] WORKER) Pathologist Signature Component Value Ref Test Method Analysis Performed A t Range Time Battery Name GRAM STAIN [facility] DEPT PATH AND LAB MEDICINE Report Status FINAL [facility] DEPT PATH AND 08/11/2022 LAB MEDICINE Specimen Description SPUTUM [facility] DEPT PATH A ND [place] LAB MEDICINE Special Requests No special 08/10/2022 [facility] DEPT PA TH AND requests 10:15 PM LAB MEDICINE [employer] Gram Stain LESS THAN 08/11/2022 [facility] DEPT PATH AND 10/LPF 10:13 AM LAB MEDICINE NEUTROPHILS [employer] WORKER Gram Stain LESS THAN 08/11/2022 [facility] DEPT PATH AND 10/LPF 10:13 AM LAB MEDICINE SQUAMOUS [employer] WORKER EPITHELIAL CELLS Gram Stain MODERATE 08/11/2022 [facility] DEPT PATH AND MIXED 10:13 AM LAB MEDICINE BACTERIA [employer] WORK[employer] Anatomical Location / Laterality Collection Method / Volume Juvenal ection Time Received Time Specimen (Source) SPECIMEN FROM [place] / Unknown 08/10/2022 9:30 PM SHE[employer]ING SH[employer] WORKER 08/10/2022 10:15 PM SHEARING SH[employer] WORKER Sputum Phuong Vásquez MICROBIOLOGY ORDERABLES BULLET ASSEMBLY PRESS OPERATOR-AUTOMOTIVE SALESPERSON [facility]/State/ZIP Code Phone Number [place] [address] [facility] DEPT PATH AND [address] LAB MEDICINE * CULTURE-URINE W/SENSITIVITY (08/10/2022 9:30 PM SHE[employer]ING [employer] WORKER) Only the most recent of 2 results within the time period is included. Pathologist Signature Component Value Ref Test Method Analysis Performed A t Range Time Battery Name URINE [facility] DEPT PATH AND CULTURE LAB MEDICINE Report Status FINAL [facility] DEPT PATH AND 08/12/2022 LAB MEDICINE Specimen Description URINE [facility] DEPT PATH A [place] LAB MEDICINE Special Requests No special 08/11/2022 [facility] DEPT PA TH AND requests 6:28 PM LAB MEDICINE [employer] WORKER Culture NO GROWTH 08/12/2022 [facility] DEPT PATH AND 12:30 PM LAB MEDICINE SHE[employer]ING [employer] WORKER Anatomical Location / Laterality Collection Method / Volume Juvenal ection Time Received Time Specimen (Source) MID-STREAM URINE SPECIMEN / Unknown 08/10/2022 9:30 PM SHE[employer]ING [employer] WORKER 08/11/2022 6:27 PM SHE[employer]ING SH[employer] WORKER Urine Hernandez Paniagua DO MICROBIOLOGY ORDERABLES City/State/ZIP Code Phone Number [place]forming [place] [address] [facility] DEPT PATH AND [address] [facility] LAB MEDICINE * CULTURE-RESP,LOWER W/SENSITIVITY (08/10/2022 9:30 PM SHEARING [employer] WORKER) Pathologist Signature Component Value Ref Test Method Analysis Performed A t Range Time Battery Name LOWER RESP [facility] DEPT PATH AND CULTURE LAB MEDICINE Report Status FINAL [facility] DEPT PATH AND 08/12/2022 LAB MEDICINE Specimen Description SPUTUM [facility] DEPT PATH A ND [place] LAB MEDICINE Special Requests No special 08/10/2022 [facility] DEPT PA TH AND requests 10:15 PM LAB MEDICINE [employer]ING [employer] WORKER Direct Gram Stain LESS THAN 08/11/2022 [facility] DEPT P ATH AND 10/LPF 10:13 AM LAB MEDICINE NEUTROPHILS [employer]ING [employer] WORKER Direct Gram Stain LESS THAN 08/11/2022 [facility] DEPT P ATH AND 10/LPF 10:13 AM LAB MEDICINE SQUAMOUS SHE[employer]ING [employer] WORKER EPITHELIAL CELLS Direct Gram Stain MODERATE 08/11/2022 [facility] DEPT P ATH AND MIXED 10:13 AM LAB MEDICINE BACTERIA [employer] WORKER Culture Moderate 08/12/2022 [facility] DEPT PATH AND growth 9:49 AM LAB MEDICINE NORMAL [employer]ING [employer] WORKER OROPHARYNGEA L HOOD Anatomical Location / Laterality Collection Method / Volume Juvenal ection Time Received Time Specimen (Source) SPECIMEN FROM [place] / Unknown 08/10/2022 9:30 PM SHEARING SHED WORKER 08/10/2022 10:15 PM SHEARING SHED WORKER Sputum Phuong Vásquez MICROBIOLOGY ORDERABLES BULLET ASSEMBLY PRESS OPERATOR-AUTOMOTIVE SALESPERSON [facility]/State/ZIP Code Phone Number Performing [place] [address] [employer] DEPT PATH AND [address] [facility] LAB MEDICINE * CULTURE-BLOOD W/SENSITIVITY (08/10/2022 9:30 PM SHEARING SHED WORKER) Only the most recent of 2 results within the time period is included. Pathologist Signature Component Value Ref Test Method Analysis Performed A t Range Time Battery Name BLOOD [facility] DEPT PATH AND CULTURE LAB MEDICINE Report Status FINAL [facility] DEPT PATH AND 08/16/2022 LAB MEDICINE Specimen Description BLOOD BLOOD, [facility] DEPT PATH A ND PERIPHERAL LAB MEDICINE HAND, LEFT Special Requests aerobic 08/10/2022 [facility] DEPT PA TH AND bottle only 10:17 PM LAB MEDICINE SHE[employer]ING [employer] WORKER Culture NO GROWTH 5 08/16/2022 [facility] DEPT PATH AND DAYS 6:00 AM LAB MEDICINE SHEARING [employer] WORKER Anatomical Location / Laterality Collection Method / Volume Juvenal ection Time Received Time Specimen (Source) PERIPHERAL BLOOD SPECIMEN / Unknown 08/10/2022 9:30 PM SHEARING SHED WORKER 08/10/2022 10:16 PM SHEARING SHED WORKER Blood Comment: HAND, LEFT Phuong Vásquez MICROBIOLOGY ORDERABLES BULLET ASSEMBLY PRESS OPERATOR-AUTOMOTIVE SALESPERSON [facility]/State/ZIP Code Phone Number Performing [place] [address] [employer] DEPT PATH AND [address] [facility] LAB MEDICINE * MRSA PNEUMONIA SCREEN (08/10/2022 9:00 PM SHEARING SHED WORKER) Pathologist Signature Component Value Ref Test Method Analysis Performed A t Range Time MRSA Pneumonia PCR NOT DETECTED 08/11/2022 [facility] DEPT PATH AND The negative 12:35 AM LAB MEDICINE predictive [employer]ING [employer] WORKER value of this assay for MRSA pneumonia is high. Discontinuat ion of anti-MRSA pneumonia therapy is recommended in patients without additional clinical features that warrant MRSA therapy. Contact infectious Diseases or Antimicrobia l Stewardship with questions. Anatomical Location / Laterality Collection Method / Volume Juvenal ection Time Received Time Specimen (Source) SWAB OF INTERNAL NOSE / Unknown 08/10/2022 9:00 PM SHEARING SHED WORKER 08/10/2022 10:15 PM SHEARING SHED WORKER [employer] Phuong Vásquez MICROBIOLOGY ORDERABLES BULLET ASSEMBLY PRESS OPERATOR-AUTOMOTIVE SALESPERSON [facility]/State/ZIP Code Phone Number Performing [place] [address] [employer] DEPT PATH AND [address] [facility] LAB MEDICINE * (ABNORMAL) CT ABD/PELV WO CONTRAST (08/10/2022 9:46 AM SHEARING SHED WORKER) Modality Anatomical Region Laterality Computed Tomography CHEST/AB/PEL Anatomical Location / Laterality Collection Method / Volume Juvenal ection Time Received Time Specimen (Source) 08/10/2022 10:07 AM SHEARING SHED WORKER Impressions 08/10/2022 10:26 AM SHEARING SHED WORKER CHEST: 1. Intubation. Expiratory phase of adis ging with bilateral atelectasis and/or scarring. Lower lobe consolidations, which may be from atelectasis. No significant pleural effusion. 2. No thoracic lymphadenopathy. 3. Multiple subcentimeter pulmonary nodu les, indeterminant on initial examination. No dominant pulmonary mass. Follow-up CT chest in 3 months recommended to evaluate for stability. 4. Median sternotomy and CABG with mild cardiomegaly. ABDOMEN AND PELVIS: 1. No abdominopelvic inflammatory mass , lymphadenopathy, or ascites. Mild distal colonic diverticulosis. 2. Bilateral renal cortical atrophy. Mul tiple bilateral renal cysts. No hydronephrosis. #FOLLOW Finalized by YOSELYN ZURITA M.D. on 08/10/2022 10:26 AM. Dictated by YOSELYN ZURITA M.D. on 08/10/2022 10:07 AM. Narrative 08/10/2022 10:26 [address] [employer] CT CHEST, ABDOMEN AND PELVIS Clinical Indication: Male, 77 years old. Multiple strokes. Evaluate for malignancy. Technique: Multiple contiguous axial images were obtained through the chest, abdomen and pelvis without IV contrast material. Post processing coronal and sagittal reconstruction images were made from the axial images. IV contrast: None Bowel contrast: None Comparison: None CHEST FINDINGS: Evaluation of the mediastinum and prashant, including the vasculature and for lymphadenopathy, is limited without the use of IV contrast. Lower Neck: Atrophic visualized thyroid gland. No discrete lower cervical lymphadenopathy. Axilla, Mediastinum and Prashant: No lymphadenopathy. Nasoenteric tube courses through the esophagus into the stomach. Heart and Great Vessels: Median sternotomy and CABG. Mild cardiomegaly. [place] coronary artery calcifications. Thoracic aorta normal in caliber. Mild calcified atherosclerotic plaque. Airway, Lungs and Pleura: Endotracheal tube terminates in the trachea above the sergio. Expiratory phase of imaging with bilateral atelectasis and/or scarring. Lower lobe consolidations. Multiple indeterminate subcentimeter pulmonary nodules, for example subpleural right middle lobe (series 301 image 64). No discrete soft tissue pulmonary mass. No significant pleural effusion. Chest Wall and Osseous Structures: Healed right clavicle fracture deformity. Median sternotomy. Thoracic spondylosis. No destructive osseous lesion. Abdomen and Pelvis Findings: Limited evaluation without the use of IV contrast which includes the viscera and vasculature. Liver and Biliary system: Liver is normal in size. Several small hepatic hypodensities are too small to adequately characterize but probably benign cysts. Small sludge, stones, or vicarious excretion of contrast in the nondilated gallbladder. No significant biliary ductal dilatation. Spleen: Unremarkable. Adrenal Glands and Kidneys: Adrenal glands unremarkable. Mild bilateral renal cortical atrophy. Multiple bilateral renal cysts with larger cyst burden in the right kidney. Retained contrast material in the renal collecting systems. No hydronephrosis. Pancreas and Retroperitoneum: Unremarkable. Aorta and Major Vessels: Minimal fusiform ectasia of the infrarenal abdominal aorta. Extensive calcified atherosclerotic plaque. Bowel, Mesentery and Peritoneal space: Nasoenteric tube terminates in the proximal duodenum. Normal caliber bowel. Mild distal colonic diverticulosis. Normal appendix. Small fat density lesion adjacent to the distal descending colon, likely a previously torsed epiploic appendage (series 301 image 202). No mesenteric lymphadenopathy or ascites. Pelvis: Decompressed urinary bladder about a [place] catheter with small retained contrast material. Small amount of nondependent gas in the lateral lumen, likely from the presence of the catheter. Normal size prostate. Mild stranding in the right groin adjacent to the common femoral vasculature most compatible with recent vascular access. Overlying right groin pressure dressing. No pelvic lymphadenopathy. Abdominal wall and Osseous Structures: Small fat-containing inguinal hernias. Lumbar spondylosis. No destructive osseous lesion. Procedure Note Arya, Yoselyn Schulz MD - 08/10/2022 CT CHEST, ABDOMEN AND PELVIS Clinical Indication: Male, 77 years old. Multiple strokes. Evaluate for malignancy. Technique: Multiple contiguous axial images were obtained through the chest, abdomen and pelvis without IV contrast material. Post processing coronal and sagittal reconstruction images were made from the axial images. IV contrast: None Bowel contrast: None Comparison: None CHEST FINDINGS: Evaluation of the mediastinum and prashant, including the vasculature and for lymphadenopathy, is limited without the use of IV contrast. Lower Neck: Atrophic visualized thyroid gland. No discrete lower cervical lymphadenopathy. Axilla, Mediastinum and Prashant: No lymphadenopathy. Nasoenteric tube courses through the esophagus into the stomach. Heart and Great Vessels: Median sternotomy and CABG. Mild cardiomegaly. [place] coronary artery calcifications. Thoracic aorta normal in caliber. Mild calcified atherosclerotic plaque. Airway, Lungs and Pleura: Endotracheal tube terminates in the trachea above the sergio. Expiratory phase of imaging with bilateral atelectasis and/or scarring. Lower lobe consolidations. Multiple indeterminate subcentimeter pulmonary nodules, for example subpleural right middle lobe (series 301 image 64). No discrete soft tissue pulmonary mass. No significant pleural effusion. Chest Wall and Osseous Structures: Healed right clavicle fracture deformity. Median sternotomy. Thoracic spondylosis. No destructive osseous lesion. Abdomen and Pelvis Findings: Limited evaluation without the use of IV contrast which includes the viscera and vasculature. Liver and Biliary system: Liver is normal in size. Several small hepatic hypodensities are too small to adequately characterize but probably benign cysts. Small sludge, stones, or vicarious excretion of contrast in the nondilated gallbladder. No significant biliary ductal dilatation. Spleen: Unremarkable. Adrenal Glands and Kidneys: Adrenal glands unremarkable. Mild bilateral renal cortical atrophy. Multiple bilateral renal cysts with larger cyst burden in the right kidney. Retained contrast material in the renal collecting systems. No hydronephrosis. Pancreas and Retroperitoneum: Unremarkable. Aorta and Major Vessels: Minimal fusiform ectasia of the infrarenal abdominal aorta. Extensive calcified atherosclerotic plaque. Bowel, Mesentery and Peritoneal space: Nasoenteric tube terminates in the proximal duodenum. Normal caliber bowel. Mild distal colonic diverticulosis. Normal appendix. Small fat density lesion adjacent to the distal descending colon, likely a previously torsed epiploic appendage (series 301 image 202). No mesenteric lymphadenopathy or ascites. Pelvis: Decompressed urinary bladder about a [place] catheter with small retained contrast material. Small amount of nondependent gas in the lateral lumen, likely from the presence of the catheter. Normal size prostate. Mild stranding in the right groin adjacent to the common femoral vasculature most compatible with recent vascular access. Overlying right groin pressure dressing. No pelvic lymphadenopathy. Abdominal wall and Osseous Structures: Small fat-containing inguinal hernias. Lumbar spondylosis. No destructive osseous lesion. IMPRESSION CHEST: 1. Intubation. Expiratory phase of imag ing with bilateral atelectasis and/or scarring. Lower lobe consolidations, which may be from atelectasis. No significant pleural effusion. 2. No thoracic lymphadenopathy. 3. Multiple subcentimeter pulmonary nodu les, indeterminant on initial examination. No dominant pulmonary mass. Follow-up CT chest in 3 months recommended to evaluate for stability. 4. Median sternotomy and CABG with mild cardiomegaly. ABDOMEN AND PELVIS: 1. No abdominopelvic inflammatory mass, lymphadenopathy, or ascites. Mild distal colonic diverticulosis. 2. Bilateral renal cortical atrophy. Mul tiple bilateral renal cysts. No hydronephrosis. #FOLLOW Finalized by YOSELYN ZURITA M.D. on 08/10/2022 10:26 AM. Dictated by YOSELYN ZURITA M.D. on 08/10/2022 10:07 AM. Hernandez Paniagua DO CT ORDERABLES * (ABNORMAL) CT CHEST WO CONTRAST (08/10/2022 9:46 AM SHEARING SHED WORKER) Modality Anatomical Region Laterality Computed Tomography CHEST Anatomical Location / Laterality Collection Method / Volume Juvenal ection Time Received Time Specimen (Source) 08/10/2022 10:07 AM SHEARING SHED WORKER Impressions 08/10/2022 10:26 AM SHEARING SHED WORKER CHEST: 1. Intubation. Expiratory phase of adis ging with bilateral atelectasis and/or scarring. Lower lobe consolidations, which may be from atelectasis. No significant pleural effusion. 2. No thoracic lymphadenopathy. 3. Multiple subcentimeter pulmonary nodu les, indeterminant on initial examination. No dominant pulmonary mass. Follow-up CT chest in 3 months recommended to evaluate for stability. 4. Median sternotomy and CABG with mild cardiomegaly. ABDOMEN AND PELVIS: 1. No abdominopelvic inflammatory mass , lymphadenopathy, or ascites. Mild distal colonic diverticulosis. 2. Bilateral renal cortical atrophy. Mul tiple bilateral renal cysts. No hydronephrosis. #FOLLOW Finalized by YOSELYN ZURITA M.D. on 08/10/2022 10:26 AM. Dictated by YOSELYN ZURITA M.D. on 08/10/2022 10:07 AM. Narrative 08/10/2022 10:26 AM [employer]ER CT CHEST, ABDOMEN AND PELVIS Clinical Indication: Male, 77 years old. Multiple strokes. Evaluate for malignancy. Technique: Multiple contiguous axial images were obtained through the chest, abdomen and pelvis without IV contrast material. Post processing coronal and sagittal reconstruction images were made from the axial images. IV contrast: None Bowel contrast: None Comparison: None CHEST FINDINGS: Evaluation of the mediastinum and prashant, including the vasculature and for lymphadenopathy, is limited without the use of IV contrast. Lower Neck: Atrophic visualized thyroid gland. No discrete lower cervical lymphadenopathy. Axilla, Mediastinum and Prashant: No lymphadenopathy. Nasoenteric tube courses through the esophagus into the stomach. Heart and Great Vessels: Median sternotomy and CABG. Mild cardiomegaly. [place] coronary artery calcifications. Thoracic aorta normal in caliber. Mild calcified atherosclerotic plaque. Airway, Lungs and Pleura: Endotracheal tube terminates in the trachea above the [place]. Expiratory phase of imaging with bilateral atelectasis and/or scarring. Lower lobe consolidations. Multiple indeterminate subcentimeter pulmonary nodules, for example subpleural right middle lobe (series 301 image 64). No discrete soft tissue pulmonary mass. No significant pleural effusion. Chest Wall and Osseous Structures: Healed right clavicle fracture deformity. Median sternotomy. Thoracic spondylosis. No destructive osseous lesion. Abdomen and Pelvis Findings: Limited evaluation without the use of IV contrast which includes the viscera and vasculature. Liver and Biliary system: Liver is normal in size. Several small hepatic hypodensities are too small to adequately characterize but probably benign cysts. Small sludge, stones, or vicarious excretion of contrast in the nondilated gallbladder. No significant biliary ductal dilatation. Spleen: Unremarkable. Adrenal Glands and Kidneys: Adrenal glands unremarkable. Mild bilateral renal cortical atrophy. Multiple bilateral renal cysts with larger cyst burden in the right kidney. Retained contrast material in the renal collecting systems. No hydronephrosis. Pancreas and Retroperitoneum: Unremarkable. Aorta and Major Vessels: Minimal fusiform ectasia of the infrarenal abdominal aorta. Extensive calcified atherosclerotic plaque. Bowel, Mesentery and Peritoneal space: Nasoenteric tube terminates in the proximal duodenum. Normal caliber bowel. Mild distal colonic diverticulosis. Normal appendix. Small fat density lesion adjacent to the distal descending colon, likely a previously torsed epiploic appendage (series 301 image 202). No mesenteric lymphadenopathy or ascites. Pelvis: Decompressed urinary bladder about a [place] catheter with small retained contrast material. Small amount of nondependent gas in the lateral lumen, likely from the presence of the catheter. Normal size prostate. Mild stranding in the right groin adjacent to the common femoral vasculature most compatible with recent vascular access. Overlying right groin pressure dressing. No pelvic lymphadenopathy. Abdominal wall and Osseous Structures: Small fat-containing inguinal hernias. Lumbar spondylosis. No destructive osseous lesion. Procedure Note Best, Yoselyn Schulz MD - 08/10/2022 CT CHEST, ABDOMEN AND PELVIS Clinical Indication: Male, 77 years old. Multiple strokes. Evaluate for malignancy. Technique: Multiple contiguous axial images were obtained through the chest, abdomen and pelvis without IV contrast material. Post processing coronal and sagittal reconstruction images were made from the axial images. IV contrast: None Bowel contrast: None Comparison: None CHEST FINDINGS: Evaluation of the mediastinum and prashant, including the vasculature and for lymphadenopathy, is limited without the use of IV contrast. Lower Neck: Atrophic visualized thyroid gland. No discrete lower cervical lymphadenopathy. Axilla, Mediastinum and Prashant: No lymphadenopathy. Nasoenteric tube courses through the esophagus into the stomach. Heart and Great Vessels: Median sternotomy and CABG. Mild cardiomegaly. [place] coronary artery calcifications. Thoracic aorta normal in caliber. Mild calcified atherosclerotic plaque. Airway, Lungs and Pleura: Endotracheal tube terminates in the trachea above the [place]. Expiratory phase of imaging with bilateral atelectasis and/or scarring. Lower lobe consolidations. Multiple indeterminate subcentimeter pulmonary nodules, for example subpleural right middle lobe (series 301 image 64). No discrete soft tissue pulmonary mass. No significant pleural effusion. Chest Wall and Osseous Structures: Healed right clavicle fracture deformity. Median sternotomy. Thoracic spondylosis. No destructive osseous lesion. Abdomen and Pelvis Findings: Limited evaluation without the use of IV contrast which includes the viscera and vasculature. Liver and Biliary system: Liver is normal in size. Several small hepatic hypodensities are too small to adequately characterize but probably benign cysts. Small sludge, stones, or vicarious excretion of contrast in the nondilated gallbladder. No significant biliary ductal dilatation. Spleen: Unremarkable. Adrenal Glands and Kidneys: Adrenal glands unremarkable. Mild bilateral renal cortical atrophy. Multiple bilateral renal cysts with larger cyst burden in the right kidney. Retained contrast material in the renal collecting systems. No hydronephrosis. Pancreas and Retroperitoneum: Unremarkable. Aorta and Major Vessels: Minimal fusiform ectasia of the infrarenal abdominal aorta. Extensive calcified atherosclerotic plaque. Bowel, Mesentery and Peritoneal space: Nasoenteric tube terminates in the proximal duodenum. Normal caliber bowel. Mild distal colonic diverticulosis. Normal appendix. Small fat density lesion adjacent to the distal descending colon, likely a previously torsed epiploic appendage (series 301 image 202). No mesenteric lymphadenopathy or ascites. Pelvis: Decompressed urinary bladder about a [place] catheter with small retained contrast material. Small amount of nondependent gas in the lateral lumen, likely from the presence of the catheter. Normal size prostate. Mild stranding in the right groin adjacent to the common femoral vasculature most compatible with recent vascular access. Overlying right groin pressure dressing. No pelvic lymphadenopathy. Abdominal wall and Osseous Structures: Small fat-containing inguinal hernias. Lumbar spondylosis. No destructive osseous lesion. IMPRESSION CHEST: 1. Intubation. Expiratory phase of imag ing with bilateral atelectasis and/or scarring. Lower lobe consolidations, which may be from atelectasis. No significant pleural effusion. 2. No thoracic lymphadenopathy. 3. Multiple subcentimeter pulmonary nodu les, indeterminant on initial examination. No dominant pulmonary mass. Follow-up CT chest in 3 months recommended to evaluate for stability. 4. Median sternotomy and CABG with mild cardiomegaly. ABDOMEN AND PELVIS: 1. No abdominopelvic inflammatory mass, lymphadenopathy, or ascites. Mild distal colonic diverticulosis. 2. Bilateral renal cortical atrophy. Mul tiple bilateral renal cysts. No hydronephrosis. #FOLLOW Finalized by YOSELYN ZURITA M.D. on 08/10/2022 10:26 AM. Dictated by YOSELYN ZURITA M.D. on 08/10/2022 10:07 AM. Hernandez Paniagua DO CT ORDERABLES * 2D + DOPPLER ECHO W/ CONTRAST (08/10/2022 7:59 AM SHEARING SHED WORKER) Pathologist Signature Component Value Ref Test Method Analysis Performed A t Range Time Left Ventricle 112.00 62 - 150 OTHER OUTSIDE L AB Diastolic Volume mL Left Ventricle 37.00 21 - 61 OTHER OUTSIDE L AB Systolic Volume mL IVS 0.91 0.6 - OTHER OUTSIDE L AB 1.0 cm LVIDD 3.83 4.2 - OTHER OUTSIDE L AB 5.8 cm LVIDS 2.68 2.5 - OTHER OUTSIDE L AB 4.0 cm PW 0.85 0.6 - OTHER OUTSIDE L AB 1.0 cm TDI lateral e' 0.08 m/s OTHER OUTSIDE L AB TDI Medial e' 0.05 m/s OTHER OUTSIDE L AB LA volume 24.40 18 - 58 OTHER OUTSIDE L AB mL LA size 2.69 3.0 - OTHER OUTSIDE L AB 4.0 cm AV peak velocity 0.90 m/s OTHER OUTSIDE LAB Sinus 3.38 2.8 - OTHER OUTSIDE L AB 4.0 cm MV Peak A Carlitos 0.62 m/s OTHER OUTSIDE L AB MV Peak E Carlitos PW 0.49 m/s OTHER OUTSIDE LAB Right Heart Systolic 1.60 >1.7 cm OTHER OUT SIDE LAB Mmode TAPSE Right Ventricular 3.37 1.9 - OTHER OUTSID E LAB Mid Diameter 3.5 cm Right Ventricular 3.84 2.5 - OTHER OUTSID E LAB Basal Diameter 4.1 cm Right Atrial Area 9.41 <18 cm2 OTHER OUTSID E LAB Right Heart Systolic 0.11 m/s OTHER OUT SIDE LAB TDI S' BSA 2.19 m2 OTHER OUTSIDE L AB CV ECHO PV SUPPORT Floor RN OTHER OUTSIDE LAB STAFF FS 30.03 28 - 44 OTHER OUTSIDE L AB % Teichholtz 51.04 % OTHER OUTSIDE L AB LV mass 99 88 - 224 OTHER OUTSIDE L AB g RWT 0.44 <=0.42 OTHER OUTSIDE L AB E/A ratio 0.79 OTHER OUTSIDE LAB Lateral E/E' ratio 6.13 OTHER OUTSIDE LAB Left Atrium Index 11.14 16 - 34 OTHER OUTSID E LAB mL/m2 Cardiology Ar[employer] Epiq OTHER OUTSIDE LAB Ultrasound Machine Left Ventricle Mass 45 49 - 115 OTHER OUTS PRETTY LAB Index g/m2 Left Ventricle 51 34 - 74 OTHER OUTSIDE L AB Diastolic Volume mL/m2 Index Left Ventricle 17 11 - 31 OTHER OUTSIDE L AB Systolic Volume mL/m2 Index Medial E/E' ratio 9.80 OTHER OUTSIDE LAB MA'S BIPLANE EF 67 % OTHER OUT SIDE LAB ECHO EF 60 % OTHER OUTSIDE L AB Modality Anatomical Region Laterality Ultrasound Anatomical Location / Laterality Collection Method / Volume Juvenal ection Time Received Time Specimen (Source) Narrative 08/10/2022 8:32 AM SHEARING [employer]ED WORKER Left Ventricle: The left ventricular size is normal. The left ventricular wall thickness is normal. Concentric remodeling. The left ventricular systolic function is normal. The visually estimated ejection fraction is 60%. There are no segmental wall motion abnormalities. Normal left ventricular diastolic function. Right Ventricle: The right ventricular size is normal. The right ventricular systolic function is normal. Aortic valve is not well visualized, focally thickened and calcified, but no hemodynamically significant valvular abnormalities were noted. Technically very difficult agitated saline study, cannot exclude small right to left shunting. If clinical concern for cardiac source of emboli consider KASSI. Left Ventricle The left ventricular size is normal. The left ventricular wall thickness is normal. Concentric remodeling. The left ventricular systolic function is normal. The visually estimated ejection fraction is 60%. There are no segmental wall motion abnormalities. Normal left ventricular diastolic function. Right Ventricle The right ventricular size is normal. The right ventricular systolic function is normal. The pulmonary artery pressure could not be estimated due to inadequate tricuspid regurgitation signal. Left Atrium Normal size. Right Atrium Normal size. IVC/SVC Mechanically ventilated; right atrial pressure could not be estimated. Mitral Valve Normal valve structure. No stenosis. Trace regurgitation. Tricuspid Valve Normal valve structure. No stenosis. No regurgitation. Aortic Valve The aortic valve was not well seen. The valve has focal thickening and is sclerotic. No stenosis. No regurgitation. Pericardium No pericardial effusion. Pulmonary The pulmonic valve was not well seen. No stenosis. No regurgitation. Aorta The aorta was not well seen. Wall Scoring Score Index: 1.000 Percent Normal: 100.0% The left ventricular wall motion is normal. Yousuf Solis ECHO ORDERABLES Luis TODD * (ABNORMAL) LIPID PROFILE (08/10/2022 2:38 AM SHEARING SHED WORKER) Pathologist Signature Component Value Ref Test Method Analysis Performed A t Range Time Cholesterol 146 <200 08/10/2022 [facility] DEPT PAT H AND MG/DL 3:39 AM LAB MEDICINE [employer]ING [employer] WORKER Triglycerides 130 <150 08/10/2022 [facility] DEPT P ATH AND MG/DL 3:39 AM LAB MEDICINE [employer]ING [employer] WORKER HDL 29 (L) >40 08/10/2022 [facility] DEPT PAT H AND MG/DL 3:39 AM LAB MEDICINE SHE[employer]ING [employer] WORKER LDL 106 (H) <100 08/10/2022 [facility] DEPT PAT H AND mg/dL 3:39 AM LAB MEDICINE SHE[employer]ING [employer] WORKER VLDL 26 MG/DL 08/10/2022 [facility] DEPT PAT H AND 3:39 AM LAB MEDICINE SHE[employer]ING [employer] WORKER Non HDL Cholesterol 117 MG/DL 08/10/2022 [facility] DEPT PATH AND 3:39 AM LAB MEDICINE SHE[employer]ING [employer] WORKER Comment: Calculated non-HDL Cholesterol (non-HDL-C) indirectly measures LDL-C, Lp(a), IDL-C, and VLDL-C. It is a surrogate marker for Apoprotein B. Goal should be less than 130 mg/dL. Anatomical Location / Laterality Collection Method / Volume Juvenal ection Time Received Time Specimen (Source) BLOOD / Unknown 08/10/2022 2:38 AM SHEARING SHED WORKER 08/10/19 2:47 AM SHEARING SHED WORKER Yousuf Solis LABORATORY ORDERABLES Luis TODD City/State/ZIP Code Phone Number Performing [place] [address] [facility] DEPT PATH AND [address] [facility]. LAB MEDICINE * MRA HEAD WO CONTRAST (08/09/2022 11:45 PM SHEARING SHED WORKER) Modality Anatomical Region Laterality Magnetic Resonance Head Anatomical Location / Laterality Collection Method / Volume Juvenla ection Time Received Time Specimen (Source) 08/09/2022 11:47 PM SHEARING SHED WORKER Impressions 08/10/2022 12:25 AM SHEARING SHED WORKER MR brain: 1. Acute moderate sized left MCA rachael tory infarct with mild cortical petechial type hemorrhage or distal branches or vascular thrombosis in the infarct territories. No midline shift or herniation. 2. 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 3. Moderate patchy supratentorial FLAI R hyperintensities, likely secondary to chronic small vessel ischemic changes. MRA head: 1. Interval reconstituted flow within previously occluded left M2 branch. No remaining large vessel occlusion is identified. 2. Irregularity within the left caroti d siphon with at least mild associated stenosis, likely atherosclerotic. 3. 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 By my electronic signature, I attest that I have personally reviewed the images for this examination and formulated the interpretations and opinions expressed in this report Finalized by Wilmer Noguera M.D. on 08/10/2022 12:25 AM. Dictated by Nicko Hernandez D.O. on 08/09/2022 11:47 PM. Narrative 08/10/2022 12:25 AM SHEARING SHED WORKER EXAM: MRI AND MRA BRAIN HISTORY: 77-year-old male, stroke, vessel imaging TECHNIQUE: Multiplanar and multisequence MR imaging of the head was performed. This was done both before and after the administration of MultiHance contrast. 3D [id number]-[id number] images of the [place] was performed without contrast. MRA maximum intensity projection images were obtained of the brain with image postprocessing. COMPARISON: Same-day IR arteriogram, and outside CT head and CTA head and neck. FINDINGS: MR brain: Acute moderate sized left MCA territory infarct involving the left frontal lobe (inclusive of the lateral precentral gyrus), insula, and basal ganglia. There is mild susceptibility artifact within the infarct territory which may represent distal the vascular thrombus or minimal petechial hemorrhage. Mild associated regional sulcal compression and mass effect. Old right parietal and right superior frontal lobe infarcts and associated encephalomalacia. Small bilateral cerebellar infarcts, with some areas of hemosiderin deposition. Left caudate head lacunar type infarcts. Small left superior parietal postcentral gyrus infarct moderate patchy supratentorial white matter FLAIR hyperintensities. The ventricles and subarachnoid spaces are otherwise normal in size and configuration. There is no midline shift or herniation. Retained secretions in the nasal cavities and nasopharynx. Bilateral lens placements. MRA head: Irregularity within the left cavernous ICA and supraclinoid segments with at least mild associated stenosis. Previously occluded left M2 branch on outside CTA is now patent (series 6 image 94). 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 Bilateral distal NILA branches are fed by the right A1 segment. The vertebral and basilar arteries are patent without focal narrowing or occlusion. 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 The anterior and posterior cerebral arteries are patent without focal narrowing. No aneurysm or arteriovenous malformation is identified. Procedure Note Wilmer Noguera MD - 08/10/2022 EXAM: MRI AND MRA BRAIN HISTORY: 77-year-old male, stroke, vessel imaging TECHNIQUE: Multiplanar and multisequence MR imaging of the head was performed. This was done both before and after the administration of MultiHance contrast. 3D [id number] images of the [place] was performed without contrast. MRA maximum intensity projection images were obtained of the brain with image postprocessing. COMPARISON: Same-day IR arteriogram, and outside CT head and CTA head and neck. FINDINGS: MR brain: Acute moderate sized left MCA territory infarct involving the left frontal lobe (inclusive of the lateral precentral gyrus), insula, and basal ganglia. There is mild susceptibility artifact within the infarct territory which may represent distal the vascular thrombus or minimal petechial hemorrhage. Mild associated regional sulcal compression and mass effect. Old right parietal and right superior frontal lobe infarcts and associated encephalomalacia. Small bilateral cerebellar infarcts, with some areas of hemosiderin deposition. Left caudate head lacunar type infarcts. Small left superior parietal postcentral gyrus infarct moderate patchy supratentorial white matter FLAIR hyperintensities. The ventricles and subarachnoid spaces are otherwise normal in size and configuration. There is no midline shift or herniation. Retained secretions in the nasal cavities and nasopharynx. Bilateral lens placements. MRA head: Irregularity within the left cavernous ICA and supraclinoid segments with at least mild associated stenosis. Previously occluded left M2 branch on outside CTA is now patent (series 6 image 94). 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 Bilateral distal NILA branches are fed by the right A1 segment. The vertebral and basilar arteries are patent without focal narrowing or occlusion. 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 The anterior and posterior cerebral arteries are patent without focal narrowing. No aneurysm or arteriovenous malformation is identified. IMPRESSION MR brain: 1. Acute moderate sized left MCA territ ory infarct with mild cortical petechial type hemorrhage or distal branches or vascular thrombosis in the infarct territories. No midline shift or herniation. 2. Chronic right NILA and MCA territory infarcts, chronic left parietal lobe infarct, and small bilateral cerebellar infarcts and left caudate head lacunar type infarct. 3. Moderate patchy supratentorial FLAIR hyperintensities, likely secondary to chronic small vessel ischemic changes. MRA head: 1. Interval reconstituted flow within p reviously occluded left M2 branch. No remaining large vessel occlusion is identified. 2. Irregularity within the left carotid siphon with at least mild associated stenosis, likely atherosclerotic. 3. 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 By my electronic signature, I attest that I have personally reviewed the images for this examination and formulated the interpretations and opinions expressed in this report Finalized by Wilmer Noguera M.D. on 08/10/2022 12:25 AM. Dictated by Nicko Hernandez D.O. on 08/09/2022 11:47 PM. Phuong Vásquez MR ORDERABLES BULLET [employer]SEM[employer]Y PRESS OPERATOR-AUTOMOTIVE SALESPERSON * MRI HEAD WO CONTRAST (08/09/2022 11:45 PM SHEARING SHED WORKER) Modality Anatomical Region Laterality Magnetic Resonance Head Anatomical Location / Laterality Collection Method / Volume Juvenal ection Time Received Time Specimen (Source) 08/09/2022 11:47 PM SHEARING SHED WORKER Impressions 08/10/2022 12:25 AM SHEARING SHED WORKER MR brain: 1. Acute moderate sized left MCA rachael tory infarct with mild cortical petechial type hemorrhage or distal branches or vascular thrombosis in the infarct territories. No midline shift or herniation. 2. 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 3. Moderate patchy supratentorial FLAI R hyperintensities, likely secondary to chronic small vessel ischemic changes. MRA head: 1. Interval reconstituted flow within previously occluded left M2 branch. No remaining large vessel occlusion is identified. 2. Irregularity within the left caroti d siphon with at least mild associated stenosis, likely atherosclerotic. 3. 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 By my electronic signature, I attest that I have personally reviewed the images for this examination and formulated the interpretations and opinions expressed in this report Finalized by Wilmer Noguera M.D. on 08/10/2022 12:25 AM. Dictated by Nicko Hernandez D.O. on 08/09/2022 11:47 PM. Narrative 08/10/2022 12:25 AM SHEARING SHED WORKER EXAM: MRI AND MRA BRAIN HISTORY: 77-year-old male, stroke, vessel imaging TECHNIQUE: Multiplanar and multisequence MR imaging of the head was performed. This was done both before and after the administration of MultiHance contrast. 3D [id number]-lh-[id number] images of the [place] was performed without contrast. MRA maximum intensity projection images were obtained of the brain with image postprocessing. COMPARISON: Same-day IR arteriogram, and outside CT head and CTA head and neck. FINDINGS: MR brain: Acute moderate sized left MCA territory infarct involving the left frontal lobe (inclusive of the lateral precentral gyrus), insula, and basal ganglia. There is mild susceptibility artifact within the infarct territory which may represent distal the vascular thrombus or minimal petechial hemorrhage. Mild associated regional sulcal compression and mass effect. Old right parietal and right superior frontal lobe infarcts and associated encephalomalacia. Small bilateral cerebellar infarcts, with some areas of hemosiderin deposition. Left caudate head lacunar type infarcts. Small left superior parietal postcentral gyrus infarct moderate patchy supratentorial white matter FLAIR hyperintensities. The ventricles and subarachnoid spaces are otherwise normal in size and configuration. There is no midline shift or herniation. Retained secretions in the nasal cavities and nasopharynx. Bilateral lens placements. MRA head: Irregularity within the left cavernous ICA and supraclinoid segments with at least mild associated stenosis. Previously occluded left M2 branch on outside CTA is now patent (series 6 image 94). 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 Bilateral distal NILA branches are fed by the right A1 segment. The vertebral and basilar arteries are patent without focal narrowing or occlusion. 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 The anterior and posterior cerebral arteries are patent without focal narrowing. No aneurysm or arteriovenous malformation is identified. Procedure Note Wilmer Noguera MD - 08/10/2022 EXAM: MRI AND MRA BRAIN HISTORY: 77-year-old male, stroke, vessel imaging TECHNIQUE: Multiplanar and multisequence MR imaging of the head was performed. This was done both before and after the administration of MultiHance contrast. 3D [id number]-[id number] images of the [place] was performed without contrast. MRA maximum intensity projection images were obtained of the brain with image postprocessing. COMPARISON: Same-day IR arteriogram, and outside CT head and CTA head and neck. FINDINGS: MR brain: Acute moderate sized left MCA territory infarct involving the left frontal lobe (inclusive of the lateral precentral gyrus), insula, and basal ganglia. There is mild susceptibility artifact within the infarct territory which may represent distal the vascular thrombus or minimal petechial hemorrhage. Mild associated regional sulcal compression and mass effect. Old right parietal and right superior frontal lobe infarcts and associated encephalomalacia. Small bilateral cerebellar infarcts, with some areas of hemosiderin deposition. Left caudate head lacunar type infarcts. Small left superior parietal postcentral gyrus infarct moderate patchy supratentorial white matter FLAIR hyperintensities. The ventricles and subarachnoid spaces are otherwise normal in size and configuration. There is no midline shift or herniation. Retained secretions in the nasal cavities and nasopharynx. Bilateral lens placements. MRA head: Irregularity within the left cavernous ICA and supraclinoid segments with at least mild associated stenosis. Previously occluded left M2 branch on outside CTA is now patent (series 6 image 94). 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 Bilateral distal NILA branches are fed by the right A1 segment. The vertebral and basilar arteries are patent without focal narrowing or occlusion. 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 The anterior and posterior cerebral arteries are patent without focal narrowing. No aneurysm or arteriovenous malformation is identified. IMPRESSION MR brain: 1. Acute moderate sized left MCA territ ory infarct with mild cortical petechial type hemorrhage or distal branches or vascular thrombosis in the infarct territories. No midline shift or herniation. 2. Chronic right NILA and MCA territory infarcts, chronic left parietal lobe infarct, and small bilateral cerebellar infarcts and left caudate head lacunar type infarct. 3. Moderate patchy supratentorial FLAIR hyperintensities, likely secondary to chronic small vessel ischemic changes. MRA head: 1. Interval reconstituted flow within p reviously occluded left M2 branch. No remaining large vessel occlusion is identified. 2. Irregularity within the left carotid siphon with at least mild associated stenosis, likely atherosclerotic. 3. 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 By my electronic signature, I attest that I have personally reviewed the images for this examination and formulated the interpretations and opinions expressed in this report Finalized by Wilmer Noguera M.D. on 08/10/2022 12:25 AM. Dictated by Nicko Hernandez D.O. on 08/09/2022 11:47 PM. Phuong Vásquez MR ORDERABLES BULLET ASSEMBLY PRESS OPERATOR-AUTOMOTIVE SALESPERSON * FEEDING TUBE PLCMNT (ABD/CHEST LMTD) (08/09/2022 10:51 PM SHEARING SHED WORKER) Modality Anatomical Region Laterality Computed Radiography CHEST, Abdomen Anatomical Location / Laterality Collection Method / Volume Juvenal ection Time Received Time Specimen (Source) 08/10/2022 10:46 AM SHEARING SHED WORKER Impressions 08/10/2022 10:50 AM SHEARING SHED WORKER Enteric tube with tip projecting over the proximal duodenum. Finalized by Renae Drummond MD on 08/10/2022 10:50 AM. Dictated by Renae Drummond MD on 08/10/2022 10:46 AM. Narrative 08/10/2022 10:50 AM SHEARING SHED WORKER FEEDING TUBE PLCMNT (ABD/CHEST LMTD) INDICATION: Post Feeding Tube Placement. COMPARISON STUDY: CT chest abdomen pelvis 08/10/2022 FINDINGS: Weighted tip enteric tube with tip projecting over the proximal duodenum. Nonobstructive bowel gas pattern. Excreted contrast from recent CT within the bilateral renal collecting systems and proximal ureters. Multilevel degenerative changes of the spine. Prior median sternotomy. A loop recorder device projects over the cardiac silhouette. Mild bibasilar atelectasis. Procedure Note Reane Drummond MD - 08/10/2022 FEEDING TUBE PLCMNT (ABD/CHEST LMTD) INDICATION: Post Feeding Tube Placement. COMPARISON STUDY: CT chest abdomen pelvis 08/10/2022 FINDINGS: Weighted tip enteric tube with tip projecting over the proximal duodenum. Nonobstructive bowel gas pattern. Excreted contrast from recent CT within the bilateral renal collecting systems and proximal ureters. Multilevel degenerative changes of the spine. Prior median sternotomy. A loop recorder device projects over the cardiac silhouette. Mild bibasilar atelectasis. IMPRESSION Enteric tube with tip projecting over the proximal duodenum. Finalized by Renae Drummond MD on 08/10/2022 10:50 AM. Dictated by Renae Drummond MD on 08/10/2022 10:46 AM. Isabel Lobo DIAGNOSTIC IMAGING ORDERABL ES BULLET ASSEMBLY PRESS OPERATOR-AUTOMOTIVE SALESPERSON * TROPONIN-I (08/09/2022 5:30 PM SHEARING SHED WORKER) Pathologist Signature Component Value Ref Test Method Analysis Performed A t Range Time Troponin-I 0.01 0.0 - 08/09/2022 [facility] DEPT PAT H AND 0.05 6:36 PM LAB MEDICINE NG/ML SHEARING SHED WORKER Anatomical Location / Laterality Collection Method / Volume Juvenal ection Time Received Time Specimen (Source) 08/09/2022 5:30 PM SHEARING SHED WORKER 08/09/19 5:39 PM SHEARING SHED WORKER Silverio Suarez DO LABORATORY ORDERABLES City/State/ZIP Code Phone Number Performing [place] [address] [facility] DEPT PATH AND [address] LAB MEDICINE * BNP (B-TYPE NATRIURETIC PEPTI) (08/09/2022 5:30 PM SHEARING SHED WORKER) Pathologist Signature Component Value Ref Test Method Analysis Performed A t Range Time B Type Natriuretic 79.0 0 - 100 08/09/2022 [facility] D EPT PATH AND Peptide PG/ML 6:35 PM LAB MEDICINE SHEARING SHED WORKER Anatomical Location / Laterality Collection Method / Volume Juvenal ection Time Received Time Specimen (Source) 08/09/2022 5:30 PM SHEARING SHED WORKER 08/09/19 5:39 PM SHEARING SHED WORKER Silverio Suarez DO LABORATORY ORDERABLES City/State/ZIP Code Phone Number Performing [place] [address] [facility] DEPT PATH AND [address] [facility] LAB MEDICINE * (ABNORMAL) HEMOGLOBIN A1C (08/09/2022 5:30 PM SHEARING SHED WORKER) Pathologist Signature Component Value Ref Test Method Analysis Performed A t Range Time Hemoglobin A1C 5.8 (H) 4.0 - 08/10/2022 [facility] DEPT PATH AND 5.7 % 12:13 PM LAB MEDICINE SHEARING SHED WORKER Comment: The ADA recommends that most patients with type 1 and type 2 diabetes maintain an A1c level <7%. Anatomical Location / Laterality Collection Method / Volume Juvenal ection Time Received Time Specimen (Source) BLOOD / Unknown 08/09/2022 5:30 PM SHEARING SHED WORKER 08/09/19 5:39 PM SHEARING SHED WORKER Yousuf Solis LABORATORY ORDERABLES Luis TODD City/State/ZIP Code Phone Number Performing [place] [address] [facility] DEPT PATH AND [address] [facility] LAB MEDICINE * (ABNORMAL) BLOOD GASES, ARTERIAL (08/09/2022 5:30 PM SHEARING SHED WORKER) Pathologist Signature Component Value Ref Test Method Analysis Performed A t Range Time pH-Arterial 7.36 7.35 - 08/09/2022 [facility] DEPT PAT H AND 7.45 5:44 PM LAB MEDICINE SHEARING SHED WORKER pCO2-Arterial 43 35 - 45 08/09/2022 [facility] DEPT P ATH AND [facility] 5:44 PM LAB MEDICINE SHEARING SHED WORKER pO2-Arterial 180 (H) 80 - 100 08/09/2022 [facility] DEPT PA TH AND [facility] 5:44 PM LAB MEDICINE SHEARING SHED WORKER Base 1.6 MMOL/L 08/09/2022 [facility] DEPT PAT H AND Deficit-Arterial 5:44 PM LAB MEDICINE SHEARING SHED WORKER O2 Sat-Arterial 99.2 (H) 95 - 99 08/09/2022 [facility] DEPT PATH AND % 5:44 PM LAB MEDICINE SHEARING SHED WORKER Zbyzhcchquj-CDY-Dfo 23.1 21 - 28 08/09/2022 [facility] DEPT PATH AND MMOL/L 5:44 PM LAB MEDICINE SHEARING SHED WORKER Anatomical Location / Laterality Collection Method / Volume Juvenal ection Time Received Time Specimen (Source) BLOOD / Unknown 08/09/2022 5:30 PM SHEARING SHED WORKER 08/09/19 23 5:39 PM SHEARING SHED WORKER Blood, arterial Isabel Lobo OTHER LABORATORY BULLET ASSEMBLY PRESS OPERATOR-AUTOMOTIVE SALESPERSON City/State/ZIP Code Phone Number Performing [place] [address] [facility] DEPT PATH AND [address] [facility] LAB MEDICINE * IR ARTERIOGRAM NEURO (08/09/2022 5:04 PM SHEARING SHED WORKER) Modality Anatomical Region Laterality X-Ray Angiography Head Anatomical Location / Laterality Collection Method / Volume Juvenal ection Time Received Time Specimen (Source) 08/10/2022 12:02 PM SHEARING SHED WORKER Impressions 08/10/2022 12:15 PM SHEARING SHED WORKER 1. 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 Mechanical thrombectomy with mechanical aspiration resulted in complete recanalization. No large vessel occlusion persists. There is no underlying atherosclerotic process. TICI 3. ATTESTATION: I performed the entire procedure from beginning to end and am responsible for the subsequent image interpretation. Finalized by Markus Uribe M.D. on 08/10/2022 12:15 PM. Dictated by Markus Uribe M.D. on 08/10/2022 12:02 PM. Narrative 08/10/2022 12:15 PM SHEARING SHED WORKER CLINICAL HISTORY: 77-year-old female with acute stroke left hemisphere, high NIHSS. Imaging demonstrates large vessel occlusion with large penumbra. The patient is brought to the angiography suite for mechanical thrombectomy. TASSEL CLIPPER. Rony ANESTHESIA. General PROCEDURE. Left internal carotid arteriograms Mechanical thrombectomy for acute stroke right M1 with large bore stroke aspiration system. Follow-up arteriograms during mechanical thrombectomy Final follow-up arteriograms left ICA ACCESS. Right common femoral HEMOSTASIS. Angio-Seal PROCEDURE DETAIL. The patient was brought to the angiography suite and placed supine on the table. General anesthesia was successfully performed by the anesthesia team. Both groins were prepped and draped in the usual sterile fashion. The access site on the femoral artery was located by palpation and fluoroscopy. A microaccess kit was used to enter the common femoral artery. An 8 [place] sheath was placed. All bubbles were meticulously withdrawn and the sheath was carefully flushed and attached to continuous heparinized saline flush system. Similar attention was paid each subsequent sheath, catheter and/or microcatheter to maintain an air free system. A 125 cm VTK catheter was loaded inside a large bore 80-90cm length guide sheath. The construct was introduced through the 8 [place] sheath. The VTK catheter was navigated over Glidewire across the aortic arch to catheterize the right common carotid artery. The Glidewire was advanced for support in the guide sheath was telescoped into the left common carotid artery. An .027 microcatheter with intracranial microwire was loaded inside a large bore stroke aspiration catheter. Under roadmap guidance, the microcatheter was navigated into the intracranial ICA to the left carotid terminus to the left M1. The large bore stroke aspiration catheter was telescoped over the microcatheter to the face of the thrombus. Mechanical thrombectomy was performed by primary aspiration with the large bore stroke catheter with mechanical vacuum pump. An obvious thrombus was retrieved. Follow-up angiography demonstrated complete recanalization. Final follow-up left ICA arteriograms were performed. The catheter and sheath were removed and hemostasis was achieved with the Angio- Seal closure device. A sterile compressive dressing was applied. FINDINGS: Left common carotid. The bifurcation is normal with no evidence of stenosis. Left internal carotid. Occlusion of the superior division of the MCA is demonstrated with the clot extending into the M1 in nonocclusive manner. Mechanical thrombectomy with mechanical aspiration resulted in complete recanalization. No large vessel occlusion persists. The MCA circulation fills robustly. The NILA circulation does not opacify on left internal carotid injection. There is no persistent site of occlusion. There is no underlying atherosclerotic process. TICI 3. Procedure Note Markus Uribe MD - 08/10/2022 CLINICAL HISTORY: 77-year-old female with acute stroke left hemisphere, high NIHSS. Imaging demonstrates large vessel occlusion with large penumbra. The patient is brought to the angiography suite for mechanical thrombectomy. TASSEL CLIPPER. Rony ANESTHESIA. General PROCEDURE. Left internal carotid arteriograms Mechanical thrombectomy for acute stroke right M1 with large bore stroke aspiration system. Follow-up arteriograms during mechanical thrombectomy Final follow-up arteriograms left ICA ACCESS. Right common femoral HEMOSTASIS. Angio-Seal PROCEDURE DETAIL. The patient was brought to the angiography suite and placed supine on the table. General anesthesia was successfully performed by the anesthesia team. Both groins were prepped and draped in the usual sterile fashion. The access site on the femoral artery was located by palpation and fluoroscopy. A microaccess kit was used to enter the common femoral artery. An 8 [place] sheath was placed. All bubbles were meticulously withdrawn and the sheath was carefully flushed and attached to continuous heparinized saline flush system. Similar attention was paid each subsequent sheath, catheter and/or microcatheter to maintain an air free system. A 125 cm VTK catheter was loaded inside a large bore 80-90cm length guide sheath. The construct was introduced through the 8 [place] sheath. The VTK catheter was navigated over Glidewire across the aortic arch to catheterize the right common carotid artery. The Glidewire was advanced for support in the guide sheath was telescoped into the left common carotid artery. An .027 microcatheter with intracranial microwire was loaded inside a large bore stroke aspiration catheter. Under roadmap guidance, the microcatheter was navigated into the intracranial ICA to the left carotid terminus to the left M1. The large bore stroke aspiration catheter was telescoped over the microcatheter to the face of the thrombus. Mechanical thrombectomy was performed by primary aspiration with the large bore stroke catheter with mechanical vacuum pump. An obvious thrombus was retrieved. Follow-up angiography demonstrated complete recanalization. Final follow-up left ICA arteriograms were performed. The catheter and sheath were removed and hemostasis was achieved with the Angio- Seal closure device. A sterile compressive dressing was applied. FINDINGS: Left common carotid. The bifurcation is normal with no evidence of stenosis. Left internal carotid. Occlusion of the superior division of the MCA is demonstrated with the clot extending into the M1 in nonocclusive manner. Mechanical thrombectomy with mechanical aspiration resulted in complete recanalization. No large vessel occlusion persists. The MCA circulation fills robustly. The NILA circulation does not opacify on left internal carotid injection. There is no persistent site of occlusion. There is no underlying atherosclerotic process. TICI 3. IMPRESSION 1. 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 Mechanical thrombectomy with mechanical aspiration resulted in complete recanalization. No large vessel occlusion persists. There is no underlying atherosclerotic process. TICI 3. ATTESTATION: I performed the entire procedure from beginning to end and am responsible for the subsequent image interpretation. Finalized by Markus Uribe M.D. on 08/10/2022 12:15 PM. Dictated by Markus Uribe M.D. on 08/10/2022 12:02 PM. Yousuf Solis IR ORDERABLES Lius TODD * TELEMETRY STRIPS-SCAN (08/09/2022 12:00 AM SHEARING SHED WORKER) Narrative 08/09/2022 12:00 AM SHEARING SHED WORKER Ordered by an unspecified provider. Scanned Document PROCEDURE DUMMY ORDERS * TELEMETRY STRIPS-SCAN (08/09/2022 12:00 AM SHEARING SHED WORKER) Narrative 08/09/2022 12:00 AM SHEARING SHED WORKER Ordered by an unspecified provider. Scanned Document PROCEDURE DUMMY ORDERS * TELEMETRY STRIPS-SCAN (08/09/2022 12:00 AM SHEARING SHED WORKER) Narrative 08/09/2022 12:00 AM SHEARING SHED WORKER Ordered by an unspecified provider. Scanned Document PROCEDURE DUMMY ORDERS * TELEMETRY STRIPS-SCAN (08/09/2022 12:00 AM SHEARING SHED WORKER) Narrative 08/09/2022 12:00 AM SHEARING SHED WORKER Ordered by an unspecified provider. Scanned Document PROCEDURE DUMMY ORDERS * TELEMETRY STRIPS-SCAN (08/09/2022 12:00 AM SHEARING SHED WORKER) Narrative 08/09/2022 12:00 AM SHEARING SHED WORKER Ordered by an unspecified provider. Scanned Document PROCEDURE DUMMY ORDERS * TELEMETRY STRIPS-SCAN (08/09/2022 12:00 AM SHEARING SHED WORKER) Narrative 08/09/2022 12:00 AM SHEARING SHED WORKER Ordered by an unspecified provider. Scanned Document PROCEDURE DUMMY ORDERS * TELEMETRY STRIPS-SCAN (08/09/2022 12:00 AM SHEARING SHED WORKER) Narrative 08/09/2022 12:00 AM SHEARING SHED WORKER Ordered by an unspecified provider. Scanned Document PROCEDURE DUMMY ORDERS * CT HEAD EXTERNAL IMAGING (07/01/2022 12:10 AM SHEARING SHED WORKER) Anatomical Location / Laterality Collection Method / Volume Juvenal ection Time Received Time Specimen (Source) Narrative Scheduling, Silent - 07/08/2022 10:32 AM SHEARING SHED WORKER This order has been auto finalized and does not contain a result. Radiologist RADIOLOGY EXTERNAL ORDERABL ES Outpatient * CTA HEAD EXTERNAL IMAGING (07/01/2022 12:05 AM SHEARING SHED WORKER) Only the most recent of 2 results within the time period is included. Anatomical Location / Laterality Collection Method / Volume Juvenal ection Time Received Time Specimen (Source) Narrative Scheduling, Silent - 07/08/2022 10:32 AM SHEARING SHED WORKER This order has been auto finalized and does not contain a result. Radiologist RADIOLOGY EXTERNAL ORDERABL ES Outpatient from Last 3 Months Insurance Type Payer Benefit Subscriber ID Effective Phone Address Plan / Dates Group [facility] [id number] 2021-P [phone] [address] [place] [address] [phone] Advance Directives Date Inactivated Comments Code Status Date Activated 09/14/2022 5:33 PM Full Code 08/24/2022 1:49 PM Comments Question Answer Provider has Yes discussed Code Status w/Patient or Family? Date Inactivated Comments Code Status Date Activated 08/24/2022 1:33 PM Full Code 08/09/2022 8:55 PM Comments Question Answer Provider has Yes discussed Code Status w/Patient or Family? 08/09/2022 8:55 PM Full Code 08/09/2022 3:54 PM Comments Question Answer Provider has No, more discussion needed discussed Code Status w/Patient or Family? Care Teams Start Date End Date Food Safety Director Relationship Specialty 09/05/22 Coni Nguyen NP PCP - General Nurse [address] [place] [address] Practitioner [place], [place] [address]
--- OUTSIDE RECORDS SUMMARY | 2022-09-15 15:10 | XMS REPORT | Encounter Summary ---
Author Author [facility] Organization [facility] Address Unknown Phone Unavailable Care Team Providers Care Breadman Name Role Phone Nelson Calderon MD PCP Reason for Visit * Reason Onset Date Comments Event Monitor Results 09/04/2022 Encounter Details Care Team Description Date Type Department Catherine Gomes RN Event Monitor Results 09/04/2022 Telephone Cardiology: [facility] [address], [address] [place] [address] Social History Date Tobacco Use Types Packs/Day Years Used Smoking Tobacco: Former Cigarettes Smokeless Tobacco: Never Comments Alcohol Use Standard Drinks/Week Not Currently 0 (1 standard drink = 0.6 o z pure alcohol) Sex Assigned at Date Recorded Not on file Date Recorded COVID-19 Exposure Response 08/10/2022 11:53 AM [employer] In the last 10 days, have you been in contact with N o / Unsure someone who was confirmed or suspected to have Coronavirus/COVID-19? documented as of this encounter Functional Status Date of Assessment Functional Status Response 08/28/2022 Does the patient have a hearing impairment: Yes documented as of this encounter Miscellaneous Notes * Telephone Encounter - Catherine Gomes RN - 09/04/2022 8:41 AM CST Received call from [employer], spoke with Angela. Alert from [facility] received this morning 09/04/22. Auto-triggered event at 09/04/22 0534 SR, SB, alert for NSV T, VT 9 beats at 183bpm. Report is uploaded under Card Proc tab under 08/24/22 Event Monitor. Pt currently admitted to inpatient rehab. Placed phone call to rehab, . Spoke with nurse: Joaquín and notified of event. She will notify covering phys ician. [employer]HR[employer] documented in this encounter Plan of Treatment Not on filedocumented as of this encounter Goals Goal Patient Associated Recent Progress Patient-Stat Aut hor Goal Type Problems ed? Remain independent Hospital Not on track Maki Hurt, (08/10/2022 11:58 AM ROSENDO Guillen [employer]) documented as of this encounter Visit Diagnoses Not on filedocumented in this encounter Additional Health Concerns Noted Time Assessment 09/04/2022 9:00 PM [employer] A fall risk assessment has been complet ed for the patient documented as of this encounter Care Teams Start Date End Date Breadman Relationship Specialty 08/27/22 09/04/22 Nelson Calderon MD PCP - General Pulmonary [address] [facility] [address] [place] [address] documented as of this encounter
--- OUTSIDE RECORDS SUMMARY | 2022-09-15 15:10 | XMS REPORT | Encounter Summary ---
Author Author [facility] Organization [facility] Address Unknown Phone Unavailable Care Team Providers Care Administrative Office Assistant Name Role Phone No Pcp, Na PCP Unavailable Reason for Visit * Auth/Cert (Routine) Diagnoses / Procedures Referred By Contact Referred To Conta ct Specialty Diagnoses Acute ischemic left MCA stroke (HCC) Stroke Referral ID Status Reason Start Date Expiration Visits Vi sits Date Requested Authorized [id number] 1 1 Encounter Details Care Team Description Date Type Department Yousuf Smith MD [address] [place] [address] Hernandez Paniagua, DO [address] [place] [address] Garcia Dawson MD [address] [place] [address] Ankush Willis, DO [address] [place] [address] Bart Mandujano, DO [address] [place] [address] Acute ischemic left MCA stroke (HCC) 08/09/2022 Hospital Oncology: [facility] - Encounter A 08/24/2022 [address] [facility] [address] [place] [id number] Social History Date Tobacco Use Types Packs/Day Years Used Smoking Tobacco: Former Cigarettes Smokeless Tobacco: Never Tobacco Cessation: Counseling Given: Not Answered Comments Alcohol Use Standard Drinks/Week Not Currently 0 (1 standard drink = 0.6 o z pure alcohol) Sex Assigned at Date Recorded Not on file Date Recorded COVID-19 Exposure Response 08/10/2022 11:53 AM HEATING WORKER In the last 10 days, have you been in contact with N o / Unsure someone who was confirmed or suspected to have Coronavirus/COVID-19? documented as of this encounter Last Filed Vital Signs Reading Time Taken Comments Vital Sign 93/52 08/24/2022 11:56 AM HEATING WORKER Blood Pressure 63 08/24/2022 11:56 AM HEATING WORKER Pulse 37.2 C (98.9 F) 08/24/2022 11:56 AM HEATING WORKER Temperature - - Respiratory Rate 97% 08/24/2022 11:56 AM HEATING WORKER Oxygen Saturation - - Inhaled Oxygen Concentration 96.2 kg (212 lb) 08/15/2022 1:25 PM HEATING WORKER Weight 172.7 cm (5' 7.99") 08/15/2022 1:25 PM HEATING WORKER Height 32.24 08/15/2022 1:25 PM HEATING WORKER Body Mass Index documented in this encounter Functional Status Date of Assessment Functional Status Response 08/10/2022 Does the patient have a hearing impairment: Yes documented as of this encounter Discharge Summaries * Bart Mandujano DO - 08/24/2022 1:24 PM CST Discharge Summary Name: Derek Castro Date Of : 1945 Age: 77 y.o. Admit date: 08/09/2022 Discharge date: 08/24/2022 Discharge Attending: Bart Mandujano Discharge Summary Completed By: Bart Mandujano DO Service: [facility] P- [id number] Reason for hospitalization: Acute ischemic left MCA stroke (HCC) [I63.512] Primary Discharge Diagnosis: Acute ischemic left MCA stroke (HCC) Hospital Diagnoses: Hospital Problems Active Problems * (Principal) Acute ischemic left MCA stroke (HCC) CAD (coronary artery disease) Stage 3b chronic kidney disease (HCC) Hyperlipidemia Primary hypertension Hypothyroidism Seizure disorder (HCC) History of multiple strokes Global aphasia Acute right hemiparesis (HCC) Significant Past Medical History CAD (coronary artery disease) Comment: s/p CABG x 5 CKD (chronic kidney disease) stage 3, GFR 30-59 ml/min (HCC) Deep vein thrombosis (DVT) of right lower extremity (HCC) Comment: s/p CABG Gout History of left NILA stroke History of right MCA stroke Hyperlipidemia Hypothyroidism Primary hypertension Seizure disorder (HCC) Allergies Patient has no known allergies. Brief Hospital Course Patient is a 77-year-old male with a past medical history of CAD statu s post CABG back in 2009, right lower extremity DVT, CKD stage III, seizure diso rders, multiple previous CVAs, hypertension, hyperlipidemia and hypothyroidism w [facility] presented to our facility from outside hospital on 08/09 with right-sided wea kness and aphasia work-up found to have left M2 occlusion, patient was not a TNK candidate due to recent strokes and he was transferred to our facility for furt her evaluation and management. Patient did have thrombectomy and required press ors post thrombectomy. Patient initially in the ICU however subsequently transf erred to medicine service on 08/13/2022. Patient continued to have ongoing sever e dysphagia thus a PEG tube was placed on 08/20 and has been tolerating tube feed s quite well. Current CVA/to be cryptogenic as further evaluation including KASSI did not reveal anything. Patient will be discharged with event monitor. Patient was started on Eliquis by neurology team and additionally is on aspirin which he should cont inue until follow-up with neurology team. During further work-up on this admission found to have multiple subcentimeter pu lmonary nodules and recommendation is to follow-up with CT chest in 3 months to record stability. Patient does have urinary retention, during admission tried to do a voiding tria l however did not have spontaneous voiding for 24+ hours and thus Lake catheter placed again. Voiding trial can be retried however unclear if this is neurogen ic currently. Overall doing well from medical standpoint and being discharged to inpatient [facility] for further recovery. Items Needing Follow Up Pending items or areas that need to be addressed at follow up: f/u on event noemy tor Pending Labs and Follow Up Radiology Pending labs and/or radiology review at this time of discharge are listed below: if this area is blank, there are no items for review. Pending Labs Order Current Status UA DONALDSON TOP TUBE In process Medications Medication List STOP taking these medications allopurinoL 100 mg tablet; Commonly known as: ZYLOPRIM amLODIPine 10 mg tablet; Commonly known as: NORVASC aspirin EC 81 mg tablet atorvastatin 80 mg tablet; Commonly known as: LIPITOR cetirizine 10 mg tablet; Commonly known as: ZyrTEC CHOLEcalciferoL (vitamin D3) 5000 unit tablet; Commonly known as: VITAMIN D3 clopiDOGreL 75 mg tablet; Commonly known as: PLAVIX fish oil- omega 3-DHA/EPA 300/1,000 mg capsule levETIRAcetam 500 mg tablet; Commonly known as: KEPPRA levothyroxine 125 mcg tablet; Commonly known as: SYNTHROID lisinopriL 20 mg tablet; Commonly known as: ZESTRIL melatonin 5 mg Chew multivitamin tablet; Commonly known as: ONE-A-DAY Return Appointments and Scheduled Appointments Consults, Procedures, Diagnostics, Micro, Pathology Consults: Neurology, Otolaryngology and Rehabilitative Medicine Surgical Procedures & Dates: Thrombectomy 08/09/22; G-tube 08/20 Significant Diagnostic Studies, Micro and Procedures: noted in brief hospital co urse Significant Pathology: noted in brief hospital course Discharge Disposition, Condition Patient Disposition: Rehab Facility ([facility]) [258] Condition at Discharge: Stable Code Status Code Status History Date Active Date Inactive Code Status Order ID 08/09/[id number]/24/2022 133 Full Code [id number] Phuong Vásquez P, [employer] Inpatient 08/09/2022 1554 08/09/20222054 Full Code [id number] Silverio Suarez DO Inpatient Patient Instructions Regular Diet You have no dietary restriction. Please continue with a healthy balanced diet. Tube Feeding Isosource 1.5 at 65 cc/hr for 22 hours Report These Signs and Symptoms Please contact your doctor if you have any of the following symptoms: temperatu re higher than 100.4 degrees F, uncontrolled pain, or persistent nausea and/or v omiting Questions About Your Stay For questions or concerns regarding your hospital stay, call [phone]. Discharging attending physician: BART MANDUJANO [[id number]] Activity as Tolerated It is important to keep increasing your activity level after you leave the hosp ital. Moving around can help prevent blood clots, lung infection (pneumonia) an d other problems. Gradually increasing the number of times you are up moving ar ound will help you return to your normal activity level more quickly. Continue to increase the number of times you are up to the chair and walking daily to ret urn to your normal activity level. Begin to work toward your normal activity lev el at discharge Additional Orders: Case Management, Supplies, Home Health Home Health/DME None Signed: Bart Mandujano DO 08/24/2022 cc: Primary Care Physician: No Pcp, Na Verified Referring physicians: Isabel Givens, PT Additional provider(s): Did we miss something? If additional records are needed, please fax a request on office letterhead to [phone]. Please include the patient's name, date of b irth, fax number and type of information needed. Additional request can be made by email at [email or web address]. For general questions of information about electronic records sharing, call [phone]. ING WORKER * Lauren Blood - 08/24/2022 11:15 AM CST Case Management Progress Note NAME:Derek Castro Jr. :[birth year] AGE: 77 y.o. ADMISSION DATE: 08/09/2022 DAYS ADMITTED: LOS: 15 days Today's Date: 08/24/2022 PLAN: Pt to d/c to [facility] today at 1300. Expected Discharge Date: 08/24/2022 Is Patient Medically Stable: Yes Are there Barriers to Discharge? Yes (insurance auth) INTERVENTION/DISPOSITION: Discharge Planning Inpatient Rehabilitation DARREL participated in huddle;EMR reviewed Pt is stable for d/c at this time. Current recommendation is for acute rehab. DARREL was notified ROSENDO Luna that pt needs to work with PT this morning. DARREL updated PT Michaela who stated she would work with pt this morning. DARREL received notification that pt is able to be admitted today and has insurance auth approval. ups driver time is 1300. DARREL provided bedside RN with number for RN report and transportation time. DARREL will continue to follow for d/c planning and placement needs. Transportation Does the Patient Need Case Management to Arrange Discharge Transpo rt? (ex: facility, ambulance, wheelchair/stretcher, Medicaid, cab, other): Yes Type of Transport: Stretcher van Will the Patient Use Family Transport?: No Support Support: Pt/Family Updates re:POC or DC Plan, Huddle/team update Info or Referral Information or Referral to Community Resources: No Needs Identifie d Medication Needs Medication Needs: No Needs Identified Financial Financial: No Needs Identified Legal Legal: No Needs Identified Other Other/None: No needs identified Discharge Disposition Selected Continued Care - Admitted Since 08/09/2022 No services have been selected for the patient. ELINA Ayala Available on Vo[employer] Work ING WORKER * Laureen Luna RN - 08/24/2022 9:16 AM CST Per chart review, pt needs to work with PT. Pt with HTN. Pt with lethargy yester day - unable to work with PT. Notified DARREL of chart review and if team has any co ncerns with lethargy or HTN. Insurance authorization is pending. 0927: Notified by Danica IBRAHIM) that primary team stated "He is definitely medically stable from my standpoint. Cognition is really difficult to assess. However, he is following simple commands and have previously worked well with therapy. He hunter s severe expressive receptive aphasia , which makes a really difficult." Informe d DARREL that pt will need to work with PT today as concerning that pt had functiona l decline with OT. 1026: Notified DARREL that pt worked with PT and did much better with therapy. Recei michael insurance authorization with [employer]. Will f/u shortly re: transport time/ro om. 1029: Notified Danica IBRAHIM) that rehab able to admit today. Transportation will be scheduled for 1300 via stretcher van with [facility] [employer]. DARREL to notify pk westfall's primary RN of discharge time, rehab bed assignment of [phone] and unit phone# for report (). Please leave in any functioning IV access for transi tion to 's IP rehab unit. [phone]: Verified patient identity with two patient identifiers. Provided Wendy ceballos (spouse) with verbal education re: [facility] IP rehab facility. Information includ ed: members of the interdisciplinary team, therapy scheduling, team conference, RN to patient ration, daily physician rounds, fall prevention, appropriate cloth ing to have, family training, visiting hours and parking for visitors. Joycelyn denied any further questions. Joycelyn is agreeable to an admission at [facility] IP rehab facility. CHARLI Liang, ROSENDO Inpatient Rehab Admission Nurse (office: [phone] or voalte) ING WORKER * Laureen Luna RN - 08/23/2022 9:39 AM CST Per chart review, pt needs to work with OT. No other medical concerns after revi ew. Insurance authorization is currently pending. CHARLI Liang, ROSENDO Inpatient Rehab Admission Nurse (office: [phone] or voalte) ING WORKER * Lauren Blood - 08/22/2022 10:19 AM CST Case Management Progress Note NAME:Derek Castro Jr. :[birth year] AGE: 77 y.o. ADMISSION DATE: 08/09/2022 DAYS ADMITTED: LOS: 13 days Today's Date: 08/22/2022 PLAN: Anticipate d/c to IPR pending medical stability, senior care nutritional vlad n, facility acceptance, and insurance auth. Expected Discharge Date: 08/23/2022 Is Patient Medically Stable: Yes Are there Barriers to Discharge? Yes (insurance auth) INTERVENTION/DISPOSITION: Discharge Planning Inpatient Rehabilitation SW participated in huddle;EMR reviewed Pt is stable for d/c at this time. Current recommendation is for acute rehab. SW requested pt to be reviewed by IPR. Per ROSENDO Luna, bed availability is unk nown at this time and she recommended having a back up option. SW spoke with pt and updated her on above. Discussed other IPR options and ok with referral to [facility]. SW sent referral to [facility]. SW will continue to follow for d/c planning and placement needs. Transportation Does the Patient Need Case Management to Arrange Discharge Transpo rt? (ex: facility, ambulance, wheelchair/stretcher, Medicaid, cab, other): Yes Type of Transport: Stretcher van Will the Patient Use Family Transport?: No Support Support: Pt/Family Updates re:POC or DC Plan, Huddle/team update Info or Referral Information or Referral to Community Resources: No Needs Identifie d Medication Needs Medication Needs: No Needs Identified Financial Financial: No Needs Identified Legal Legal: No Needs Identified Other Other/None: No needs identified Discharge Disposition Selected Continued Care - Admitted Since 08/09/2022 No services have been selected for the patient. ELINA Ayala Available on [employer] Work ING WORKER * Laureen Luna RN - 08/22/2022 9:58 AM CST Notified by Danica (DARREL) that the patient is anticipated to be ready for discharge T vs. Saturday and would prefer to stay at 's IP rehab unit. Plan to retur n home with family support. Will review and f/u on bed availability. 1511: Notified SW that pt will need to work with OT. Pt with leukocytosis and el evated creatinine. Per DARREL team not concerned and wanting to ensure pt tolerates tube feeds for another day. Informed that IPR can accept and will submit f or insurance authorization. CHARLI Liang, RN Inpatient Rehab Admission Nurse (office: [phone] or voalte) ING WORKER * Anna Omalley LMSW - 08/17/2022 10:48 AM CST Case Management Progress Note NAME:Derek Castro Jr. :[birth year] AGE: 77 y.o. ADMISSION DATE: 08/09/2022 DAYS ADMITTED: LOS: 8 days Today's Date: 08/17/2022 PLAN: Anticipate d/c to IPR pending medical stability, intermediate card tender nutritional vlad n, facility acceptance, and insurance auth. Expected Discharge Date: 08/22/2022 Is Patient Medically Stable: No, Please explain: PEG scheduled for Saturday the , will need to see if pt can tolerate TF, ongoing medical work up Are there Barriers to Discharge? no INTERVENTION/DISPOSITION: Discharge Planning 1409- DARREL spoke with pt's , and she reported that she would like SW to send a refer ral to IPR. DARREL reached out to primary team to see if Rehab doctor could be re-consulted t o see if he would be appropriate for IPR. Consult has been placed. SW will continue to remain available and assist with discharge needs as they kylie se. 1048- DARREL reviewed EMR and met with Primary Team for Huddle. Primary team reported that pt is anticipated to be medically stable next week following PEG placement on the . Pt will continue to remain in the hospital temporarily to see if he is toleratin g TF before he can d/c to an IPR. DARREL will plan to meet with pt and family this afternoon and provide them with a l ist of in-network IPR facilities. Pt and family reported to primary team that they would like to find a facility l ocated in the [facility] if possible. SW will continue to remain available and assist with discharge needs as they kylie se. Transportation Does the Patient Need Case Management to Arrange Discharge Transpo rt? (ex: facility, ambulance, wheelchair/stretcher, Medicaid, cab, other): Yes Type of Transport: Stretcher van Will the Patient Use Family Transport?: No Support Info or Referral Medication Needs Financial Legal Other Discharge Disposition Selected Continued Care - Admitted Since 08/09/2022 No services have been selected for the patient. Anna Omalley LMSW Inpatient [facility]/ [facility] Available via [address] Work ING WORKER * Anna Omalley LMSW - 08/13/2022 3:22 PM CST Case Management Progress Note NAME:Derek Castro Jr. :[birth year] AGE: 77 y.o. ADMISSION DATE: 08/09/2022 DAYS ADMITTED: LOS: 4 days Today's Date: 08/13/2022 PLAN: Anticipate d/c to SNF vs IPR pending medical stability, intermediate card tender nutritio nal plan, facility acceptance, and insurance auth. Expected Discharge Date: 08/15/2022 Is Patient Medically Stable: No, Please explain: Neuro following, receiving TF v ia Corpak (will need intermediate card tender nutritional plan such as PEG?) Are there Barriers to Discharge? yes (If pt were to d/c to IPR, NG tubes or Chelsi aks are typically not allowed- will likely need PEG) INTERVENTION/DISPOSITION: Discharge Planning SW reviewed EMR and met with Primary Team for Huddle. Primary team reported that pt is anticipated to be medically stable mid this week. Pt is still currently receiving tube feeds via [employer] and will need a more stabl e and senior care nutrition plan before able to d/c to a facility. Per PT/OT, they have been recommending pt would be a candidate for IPR given sma ll improvement/gains made each day. SW asked primary team to place a rehab consult on pt and per their recommendatio ns, they said: "Potentially Acute inpatient rehabilitation - pending barriers below. Potential Barriers to Acute IPR: *NG & Corpaks: Nutrition: NG Tubes and Corpaks are not typically allowed on acute inpatient rehabilitatio n. Please address the patient's nutritional access for more permanent source, a s the patient will need to either be meeting nutritional requirements orally or have a more definitive long-term enteral access (which may include consideration for PEG tube). *Carryover: The patient will need to be following commands (consistently 1 step with progression of 2 step commands) during therapies with signs of carryover pr ior to consideration for acute inpatient rehabilitation." If barrier are able to be addressed, [facility] will reconsider their recommendati ons for a possible d/c to IPR across the street. SW will continue to remain available and assist with discharge needs as they kylie se. Transportation Does the Patient Need Case Management to Arrange Discharge Transpo rt? (ex: facility, ambulance, wheelchair/stretcher, Medicaid, cab, other): Yes Type of Transport: Stretcher van Will the Patient Use Family Transport?: No Support Info or Referral Medication Needs Financial Legal Other Discharge Disposition Selected Continued Care - Admitted Since 08/09/2022 No services have been selected for the patient. Anna Omalley LMSW Inpatient [facility]/ [facility] Available via [address] Work ING WORKER * Marly Kirby LMSW - 08/10/2022 8:46 AM CST Case Management Admission Assessment NAME:Derek Castro Jr. :[birth year] AGE: 77 y.o. ADMISSION DATE: 08/09/2022 DAYS ADMITTED: LOS: 1 day Todays Date: 08/10/2022 Source of Information: Pt's (Joycelyn), pt's daughter (Lavern), and EMR Plan Plan: Case Management Assessment, Assist PRN with SW/NCM Services, Discharge Vlad nning for Post-Acute Facility Most recent therapy recommendations: o PT: No recommendations available at time of assessment o OT: No recommendations available at time of assessment o ST: No recommendations available at time of assessment o Rehab medicine: Consult pending CM needs are not fully known at this time. SW/NCM will continue to follow pt's POC via EMR and team huddle and will ass ist with d/c planning needs as indicated. Notes This CM met with pt's and pt's daughter at bedside for assessment on is date. Pt was recently extubated and unable to participate in assessment. Prov ided contact information and explanation of SW/NCM roles. Provided opportunity f or questions and discussion. Pt/family encouraged to contact Case Management jennifer aranda with questions and concerns during hospitalization and until patient is able t o transition back to the patient's primary care physician. Pt lives in house w/ wheelchair ramp access w/ his . Pt's bedroom and ba throom (tub/shower) are on main level. Pt is typically independent with ADLs and does not use DME. Pt utilized HH services in the past and had previous SNF stay, but he has no hx of OP, NH, IPR, LTACH, or hospice. Pt has DPOA that names his as his agent. SW requested family bring copy of document to hospital to be added to EMR. Pt's PCP is Dr. Calderon (sp?) in [place] and last appointment was ~1mo ago . Pt has [employer]. Pt's is retired and can provide consistent support at d/c. Pt's son neris es nearby and can assist, as well. Patient Address/Phone [address] [facility] [address] (home) Emergency Contact Extended Emergency Contact Information Primary Emergency Contact: Joycelyn Castro Mobile Relation: Spouse Secondary Emergency Contact: Lavern Stpehenson Mobile Relation: Daughter Healthcare Directive Healthcare Directive: Yes, patient has a healthcare directive Type of Healthcare Directive: Durable power of estate planning attorney for healthcare Location of Healthcare Directive: Patient does not have it with him/her Would patient like to fill out a (a new) Healthcare Directive?: N/A Psych Advance Directive (Psych unit only): No, patient does not have a Psych Adv ance Directive Transportation Does the Patient Need Case Management to Arrange Discharge Transport? (ex: facil ity, ambulance, wheelchair/stretcher, Medicaid, cab, other): Yes Type of Transport: Stretcher van Will the Patient Use Family Transport?: No Expected Discharge Date 08/15/2022 Living Situation Prior to Admission Living Arrangements Type of Residence: Home, independent Living Arrangements: Spouse/significant other Bathroom Shower / Tub: Tub/Shower Unit How many levels in the residence?: 1 Can patient live on one level if needed?: Yes Does residence have entry and/or side stairs?: No Assistance needed prior to admit or anticipated on discharge: Yes Who provides assistance or could if needed?: Pt's Are they in good health?: Yes Can support system provide 24/7 care if needed?: Yes Level of Function Prior level of function: Independent Cognitive Abilities Cognitive Abilities: Continue to Assess Financial Resources Coverage Primary Insurance: Medicare Replacement Secondary Insurance: No insurance Additional Coverage: RX Source of Income Source Of Income: Other longterm income Financial Assistance Needed? No Psychosocial Needs Mental Health Mental Health History: No Substance Use History Substance Use History Screen: No Other N/A Current/Previous Services PCP No Pcp, Na, None, None Pharmacy No Pharmacies Listed Durable Medical Equipment Durable Medical Equipment at home: None Home Health Receiving home health: In the past Agency name: Unknown Hemodialysis or Peritoneal Dialysis Undergoing hemodialysis or peritoneal dialysis: No Tube/Enteral Feeds Receive tube/enteral feeds: No Infusion Receive infusions: No Private Duty Private duty help used: No Home and Community Based Services Home and community based services: No Mohit Rueda White: N/A Hospice Hospice: No Outpatient Therapy PT: No OT: No CLINICAL RESEARCH SPEC: No [facility]: In the past When did patient receive care?: 2021 Name of Facility: [facility] Would patient return for future services?: No NH: No Inpatient Rehab IPR: No [facility] LTACH: No Acute Hospital Stay Acute Hospital Stay: In the past Was patient's stay within the last 30 days?: No Marly Kirby LMSW Available on [employer] ING WORKER documented in this encounter Discharge Instructions * Attachments The following attachments cannot be sent through Care Everywhere.* IR- Gastrostomy Tube (G-tube) Placement-Discharge Instruction (SWEDISH) documented in this encounter Medications at Time of Discharge Start Date End Date Medication Sig Dispensed Refills 09/14/2022 amLODIPine (NORVASC) 5 mg Take one 90 tablet 1 tablet tablet by mouth daily. 09/13/2022 apixaban (ELIQUIS) 5 mg Take one 180 tablet 3 tablet tablet by mouth twice daily. 09/14/2022 aspirin 81 mg chewable Chew one 90 tablet 1 tablet tablet by mouth daily. Take with food. 09/14/2022 atorvastatin (LIPITOR) 80 Take one 90 tablet 1 mg tablet tablet by mouth daily. 09/13/2022 baclofen 5 mg tablet Take one 270 tablet 1 tablet by mouth at bedtime daily. 09/14/2022 famotidine (PEPCID) 20 mg Take one 180 tablet 3 tablet tablet by mouth daily. 09/13/2022 levETIRAcetam (KEPPRA) Take one 180 tablet 3 500 mg tablet tablet by mouth twice daily. 09/13/2022 levothyroxine (SYNTHROID) Take one 90 tablet 3 125 mcg tablet tablet by mouth daily 30 minutes before breakfast. 09/13/2022 melatonin 5 mg tablet Take one 90 tablet 3 tablet by mouth at bedtime daily. 09/13/2022 QUEtiapine (SEROQUEL) 25 Take one-half 60 tablet 0 mg tablet tablet by mouth at bedtime as needed. 09/14/2022 sertraline (ZOLOFT) 50 mg Take one 90 tablet 0 tablet tablet by mouth daily. 09/13/2022 simethicone (MYLICON) 80 Chew one 30 tablet 3 mg chew tablet tablet by mouth three times daily. 09/13/2022 traZODone (DESYREL) 50 mg Take one 90 tablet 0 tablet tablet by mouth at bedtime daily. 09/13/2022 vitamin A & D oint Apply 113 g 1 topically to affected area as Needed (Promote skin healing). 09/14/2022 09/13/2022 amLODIPine (NORVASC) 5 mg one tablet by 90 tablet 1 tablet PEG Tube route daily. 09/13/2022 09/13/2022 apixaban (ELIQUIS) 5 mg one tablet by 180 tablet 1 tablet Per NG tube route twice daily. 09/14/2022 09/13/2022 aspirin 81 mg chewable one tablet by 90 tablet 1 tablet PEG Tube route daily. Take with food. 09/14/2022 09/13/2022 atorvastatin (LIPITOR) 80 one tablet by 90 tablet 1 mg tablet PEG Tube route daily. 09/13/2022 09/13/2022 baclofen 5 mg tablet Take one 270 tablet 1 tablet via feeding tube at bedtime daily. 09/14/2022 09/13/2022 famotidine (PEPCID) 20 mg one tablet by 180 tablet 1 tablet PEG Tube route daily. 09/13/2022 09/13/2022 levETIRAcetam (KEPPRA) 5 mL by PEG 473 mL 1 100 mg/mL oral solution Tube route twice daily. 09/13/2022 09/13/2022 levothyroxine (SYNTHROID) one tablet by 90 tablet 1 125 mcg tablet PEG Tube route daily 30 minutes before breakfast. 09/13/2022 09/13/2022 melatonin 5 mg tablet one tablet by 90 tablet 1 PEG Tube route at bedtime daily. 09/13/2022 09/13/2022 QUEtiapine (SEROQUEL) 25 one-half 180 tablet 0 mg tablet tablet by Per G Tube route at bedtime as needed. 09/14/2022 09/13/2022 sertraline (ZOLOFT) 50 mg Take one 90 tablet 0 tablet tablet via feeding tube daily. 09/13/2022 09/13/2022 simethicone (MYLICON) 80 one tablet by 30 tablet 11 mg chew tablet Per G Tube route three times daily. 09/13/2022 09/13/2022 traZODone (DESYREL) 50 mg one tablet by 90 tablet 0 tablet PEG Tube route at bedtime daily. documented as of this encounter Ordered Prescriptions Start Date End Date Prescription Sig Dispensed Refills 08/25/2022 08/24/2022 aspirin 81 mg chewable one tablet by 90 tablet 0 tablet PEG Tube route daily. Take with food. 08/24/2022 08/24/2022 levothyroxine (SYNTHROID) one tablet by 90 tablet 0 125 mcg tablet PEG Tube route daily 30 minutes before breakfast. 08/24/2022 08/24/2022 melatonin 5 mg chew 5 mg by PEG 30 tablet 0 Tube route at bedtime daily. 08/24/2022 08/24/2022 allopurinoL (ZYLOPRIM) one-half 90 tablet 0 100 mg tablet tablet by PEG Tube route daily. Take with food. 08/24/2022 08/24/2022 amLODIPine (NORVASC) 10 one tablet by 90 tablet 0 mg tablet PEG Tube route daily. 08/24/2022 08/24/2022 atorvastatin (LIPITOR) 80 one tablet by 90 tablet 0 mg tablet PEG Tube route daily. 08/24/2022 08/24/2022 levETIRAcetam (KEPPRA) Take one 180 tablet 0 500 mg tablet tablet by mouth twice daily. Administer via PEG Tube. 08/25/2022 08/24/2022 doxazosin (CARDURA) 1 mg one tablet by 90 tablet 0 tablet PEG Tube route daily. 08/24/2022 08/24/2022 carvediloL (COREG) 6.25 one tablet by 180 tablet 0 mg tablet PEG Tube route twice daily. Take with food. 08/24/2022 08/24/2022 apixaban (ELIQUIS) 5 mg one tablet by 180 tablet 0 tablet Per NG tube route twice daily. documented in this encounter Discharge Disposition Code Departure Means Destination Disposition Ambulance Rehab Facility ([facility]) documented in this encounter Progress Notes * Bart Mandujano DO - 08/24/2022 9:34 AM CST Name: Derek Castro Jr. : 1945 Age: 77 y.o. Admission Date: 08/09/2022 LOS: 15 days Date of Service: 08/24/2022 Day of Discharge Note Day of discharge progress note for Derek Castro Jr. Chart data reviewed including medications, consultation notes, lab, vitals, imag ing. Patient was seen and examined with pertinent information listed below. Subjective: Patient doing about the same as yesterday. Able to follow simple co mmands. No issues overnight. Continues to tolerate tube feeds Exam: Gen: Appears comfortable HEENT: AT/NC. Cardiovascular: Regular rhythm, rate in the 70s, normal s1s2, no m/r/g Respiratory: Normal respiratory effort, coarse breath sounds bilaterally, no whe ezing or rhonchi Gastrointestinal: Non-distended soft abdomen, bowel sounds present, PEG in place , no peritoneal signs Musculoskeletal: Spontaneously moves all extremities Extremities: No edema Skin: Dry Neurological: Alert. Severe aphasia, grossly non-focal Psychiatry: Difficult to assess Discharge plans and pertinent follow up items after discharge: Patient presented to our facility from outside hospital with right-sided weakness and aphasia fou nd to have CVA, was not TNK candidate however thrombectomy was performed. Patie nt ultimately received PEG tube and being discharged to rehab facility in stable condition. Please refer to discharge summary for further details. Patient feels comfortable with plans for discharge. All questions were answered . Discharge discussion, including follow up/discharge instructions, occurred wi th patient [id number]. Bart Mandujano DO 08/24/2022 Discharge Planning: greater than 30 minutes spent in counseling pt, coordinating discharge care, placing discharge orders and complete discharge summary. ING WORKER * Eb Jennings, PT - 08/24/2022 9:30 AM CST PHYSICAL THERAPY PROGRESS NOTE Name: Derek Castro Jr. : 1945 Age: 77 y.o. Admission Date: 08/09/2022 LOS: 15 days Date of Service: 08/24/2022 Mobility Patient Turn/Position: Chair Progressive Mobility Level: Walk in hallway Distance Walked (feet): 80 ft Level of Assistance: Assist X2 Assistive Device: Hand Held Activity Limited By: Mental Status Variability Subjective Significant hospital events: 77 y.o. male with a PMH of HTN, CAD s/p CABG, CKD, seizures, and multiple ischemic strokes (2019, May 2022 and Jul 2022) with resid ual LUE ataxia who was found slumped over in a chair on 08/09 with right sided wea kness and aphasia. LKW 1130. NIH was 22. He was taken to an OSH where CT/CTA rosa maria wed a left M2 occlusion. He was not a TNK candidate due to recent stroke so he w as then transferred to [facility] and taken for thrombectomy. TICI 3 was obtained and patient was admitted to [facility] post op. Patient transferred to the IM service on . Patient with ongoing severe dysphagia and aphasia. Plan for peg tube placem ent 08/14. Mental / Cognitive Status: Alert;Inconsistent with Command Following;Cooperative ;Uncooperative Persons Present: RehabTechnician;Nursing Staff Pain: Patient demonstrates no signs of pain Comments: +PEG, +lake Ambulation Assist: Unable to Provide History;Independent Mobility in Community w ithout Device Home Situation: Lives with Family Type of Home: House Entry Stairs: Ramp In-Home Stairs: Able to Live on One Level Comments: Patient unable to give PLOF or home setup, information gathered from E MR. Per chart, patient independent with mobility and ADLs without a device prior to admit. Bed Mobility/Transfer Bed Mobility: Supine to Sit: Maximum Assist;x2 People Transfer Type: Sit to Stand Transfer: Assistance Level: From;Bed;Moderate Assist;x2 People Transfer: Assistive Device: Hand Hold Assist Transfers: Type Of Assistance: Verbal Cues;For Balance;For Safety Considerations ;Requires Extra Time Other Transfer Type: Stand to Sit Other Transfer: Assistance Level: To;Bed Side Chair;Moderate Assist;x2 People Other Transfer: Assistive Device: Hand Hold Assist Other Transfer: Type Of Assistance: Verbal Cues;For Safety Considerations;Requir es Extra Time;For Balance End Of Activity Status: Up in Chair;Nursing Notified;Instructed Patient to Reque st Assist with Mobility;Instructed Patient to Use Call Light (chair alarm active ) Balance Sitting Balance: Static Sitting Balance;Dynamic Sitting Balance;2 UE Support;Mod erate Assist Standing Balance: Static Standing Balance;Dynamic Standing Balance;Moderate Assi st;x2 People Gait Gait Distance: 80 feet Gait: Assistance Level: Moderate Assist;x2 People Gait: Assistive Device: Hand Hold Assist Gait: Descriptors: Decreased foot clearance RLE;Decreased foot clearance LLE;Pac e: Slow;Decreased step length Activity Limited By: Patient Choice Education Persons Educated: Patient Patient Barriers To Learning: Cognitive Deficits;Impaired Communication;Family N ot Present (expressive aphasia) Interventions: Repetition of Instructions Teaching Methods: Verbal Instruction Patient Response: More Instruction Required;Return Demonstration Topics: Plan/Goals of PT Interventions;Mobility Progression;Recommend Continued Therapy;Therapy Schedule Assessment/Progress Impaired Mobility Due To: Cognitive Deficits;Impaired Balance;Decreased Strength ;Medical Status Limitation Impaired Strength Due To: Medical Status Limitation;Cognitive Deficits Assessment/Progress: Should Improve w/ Continued PT Above impairments functionally limit bed mobility, transfers and gait. Major garcia iting factor(s) to mobility progression is/are cognitive impairment and limited command following. Bed mobility and Sit<>stand transfer demonstrate impaired command following and motor sequencing, impaired balance with posterior lean, and weakness of bilateral gluteal and abdominal muscles, requiring 2-person assist, verbal cues/instruction and extra time. Gait demonstrates impaired balance, decreased stride length and decreased bilate ral foot clearance and weakness of bilateral quadriceps , gluteal and abdominal muscles, requiring 2-person assist. Pt will require continued acute PT for bed mobility, transfer training, gait tra ining, balance training and neuromuscular reeducation. He remains an excellent c andidate for inpatient rehabilitation. AM-PAC 6 Clicks Basic Mobility Inpatient Turning from your back to your side while in a flat bed without using bed rails: A Little Moving from lying on your back to sitting on the side of a flat bed without usin g bedrails : A Lot Moving to and from a bed to a chair (including a wheelchair): A Lot Standing up from a chair using your arms (e.g. wheelchair, or bedside chair): A Lot To walk in hospital room: A Lot Climbing 3-5 steps with a railing: Total Basic Mobility Inpatient Raw Score: 12 Standardized (T-scale) Score: 32.23 AM-[facility] Basic Mobility Functional Stage: -11.95-33 Limited Movement Functional Stages - Basic Mobility Score Interpretation 11.95 - 33 Limited Movement: Your score suggests you may have a lot of difficult y or are unable to get out of your bed, to stand for several minutes and/or to w alk short distances. You might have some difficulty completing the most basic mobility tasks including repositioning yourself in bed. Goals Goal Formulation: Patient Unable to Participate in Goal Setting Time For Goal Achievement: 5 days, To, 7 days Patient Will Go Supine To/From Sit: w/ Minimal Assist Patient Will Transfer Bed/Chair: w/ Stand By Assist Patient Will Transfer Sit to Stand: w/ Stand By Assist Patient Will Ambulate: 151-200 Feet, w/ No Device, w/ Stand By Assist Plan Treatment Interventions: Mobility Training;Neuromuscular Reeducation;Balance Act ivities;Coordination Training;Strengthening Plan Frequency: 5 Days per Week PT Plan for Next Visit: bed mob, transfers, gait PT Discharge Recommendations Recommendation: Inpatient setting;Recommend rehab medicine consult Patient Currently Requires Physical Assist With: All mobility;All personal care ADLs;All home functioning ADLs Therapist: Eb Jennings PT, DPT [id number] Date: 08/24/2022 ING WORKER * Bart Mandujano, DO - 08/23/2022 1:24 PM CST General Progress Note Name: Derek Castro Jr. : 1945 Age: 77 y.o. Admission Date: 08/09/2022 LOS: 14 days Date of Service: 08/23/2022 Assessment/Plan: Principal Problem: Acute ischemic left MCA stroke (HCC) Active Problems: CAD (coronary artery disease) Stage 3b chronic kidney disease (HCC) Hyperlipidemia Primary hypertension Hypothyroidism Seizure disorder (HCC) History of multiple strokes Global aphasia Acute right hemiparesis (HCC) Derek Castro is a 77 yo male with a PMHx of HTN/HLD,CAD s/pCABG x5 in 2009, RLE DVT,CKD stage 3, seizures,multiple ischemic strokes(2019,May 2022, Jul 2022) with residual LUE ataxia, hypothyroidism who presented to an OSH ([facility]) on 08/09 for right sided weakness and aphasia. CT/CTA showed a left M2 occlusion. He was not a TNK candidate due to recent stroke, so he wastrans ferred to [facility] for further management. He is now s/p thrombectomy and was admit earline to the [facility] post-op. Patient transferred to the IM service on 08/13. Patient h as ongoing severe dysphagia and aphasia. Plan for repeat video swallow Saturday mo rning and peg tube placement that afternoon if he fails. Left M2 occlusions/p IRw/ [id number] Basal ganglia infarct Chronicvertebral artery occlusion Severe dysphagia and aphasia Hx of multiple ischemic strokes(2019, R MCA 05/2022, L NILA 07/2022) Seizures -Presented for sudden onset right sided weakness and aphasia, L gaze deviation -OSHCT head:L frontal subacute infarct and R fronto parietal chronic infar ct -OSHCTA:Left M2 MCA, distal reconstitution.Chronicocclusion of the cer vical right vertebral artery - MRI head 08/09: Acute moderate sized left MCA territory infarct with mild cortic al petechial type hemorrhage. No midline shift or herniation. Chronic right NILA and MCA territory infarcts, chronic left parietal lobe infarct, and small bilate ral cerebellar infarcts and left caudate head lacunar type infarct - MRA head 08/09: Interval reconstituted flow within previously occluded left M2 b ranch. No remaining large vessel occlusion is identified.Irregularity within t he left carotid siphon with at least mild associated stenosis, likely atheroscle rotic - CT head 08/10: EvolvingLMCA territory infarct, minimal petechial type hemor rhage.Chronic right NILA/MCA territory infarcts, chronic left parietal lobe inf arct, chronic small bilateral cerebellar infarcts, and chronic left caudate head lacunar-type infarcts. Chronic microvascular ischemic changes - CT head 08/11:Evolving L MCA territory infarct with slight increase in mass e ffect - TTE 08/10: LVF normal, EF 60%. Technically limited study, cannot r/o small righ t to left shunting - KASSI 08/15: No evidence of interatrial shunting by color Doppler or agitated seferino ine contrast studies. No evidence of intracardiac thrombus, vegetation, or mass. Normal left ventricular size and systolic function. Estimated ejection fraction of 65%. No segmental wall motion abnormalities. Probably normal right ventric ular size and contractility. Normal biatrial size. No hemodynamically significan t valvular abnormalities. 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 hypercoagulable state - Arterial hypercoaguable workup: Cardiolipin antibodies negative, Beta 2 GP IgM /IgG negative, Hex lupus AC pending - PET 08/15: No discrete hypermetabolic mass or metastatic disease - Records requested from outpatient abseiling instructor to indicate the reasoning for o ngoing DAPT. Last visit 03/2022. No clear indication noted Plan: > Started on Eliquis per neurology recommendations > Cont aspirin, atorvastatin, Keppra > Discontinuing plavix and cont single agent antiplatelet therapy with ASA and AC per neuro recs > Rehab medicine consulted - PT/OT recommending inpatient care; rehab medicine to reassess > Repeat video swallow 08/20 did not go well thus PEG placed on 08/20 > 30 day cardiac event monitoror ILR at discharge, ordered HTN HLD CAD s/p CABG x5(2009) - Echo 08/10 with EF 60%, no WMA or ventricle dysfunction - Lipid panel: LDL 106, HDL 29 - Troponin, BNPWNL -SBP goal:< 160per neuro Plan: > Cont amlodipine and statin CKD stage 3 - BaselineCr~1.8-2 - Creat stable near baseline Fever - resolved -08/10febrileupto 38.4 -BCs: NGTD -MRSA neg, CXR without consolidation, Procal 0.11 -Sputum culture with normal oropharyngeal hood -UA 2+ leuks, 20-50 WBCs, culture NGTD -Vanc/zosyninitially started and narrowed torocephin for possible UTI -s/p rocephin 08/11-08/13 - No further fever or chills - Leukocytosis 08/22 however likely reactive and low suspicion for infection Hypothyroidism > Cont ASSEMBLY PERSON levothyroxine Rash - Dry, red macular rash noted to entire back Plan: > Cont Emollient cream Pulmonary nodules - Incidental finding -Multiple subcentimeter pulmonary nodules, indeterminant on initial examinatio n. No dominant pulmonary mass Plan: > Follow-up CT chest in 3 months recommended to evaluate for stability Concern for hypopharyngeal mass - ENT consulted - CT neck reviewed without evidence of mass Acute urinary retention - Likely neurogenic due to stroke - Requiring freq SCs. Lake placed 08/13 Plan: > Cont doxazosin 1mg daily (unable to use Flomax due to Corpak) > Voiding trial did not go well thus placing lake back in, potential that he has neurogenic bladder Agitation - Noted to have increased delirium and agitation at night - Required PO Seroquel and mitts on 08/15 Plan: > Melatonin 5mg QHS, trazodone 25mg QHS PRN IVF: none Nutrition: TFs VTE prophylaxis: subcutaneous heparin Code Status: Full Code Disposition: Admit to medicine for further evaluation and management of principa l milka Mandujano, DO Internal Medicine Med Private P Subjective Derek Aranda Matthew Shell is a 77 y.o. male. Not following commands today. No issues over night. Tolerating tube feeds. Working on placement. ROS: Unable to obtain due to severe aphasia and mentation Medications Scheduled Meds:amLODIPine (NORVASC) tablet 10 mg, 10 mg, PEG Tube, QDAY apixaban (ELIQUIS) tablet 5 mg, 5 mg, SEE ADMIN INSTRUCTIONS, BID aspirin chewable tablet 81 mg, 81 mg, PEG Tube, QDAY atorvastatin (LIPITOR) tablet 80 mg, 80 mg, PEG Tube, QDAY chlorhexidine gluconate (PERIDEX) 0.12 % solution 15 mL, 15 mL, Swish & Spit, BID(8-20) senna (SENOKOT) oral syrup 8.8 mg, 8.8 mg, PEG Tube, BID And docusate sodium (COLACE) oral solution 50 mg, 50 mg, PEG Tube, BID doxazosin (CARDURA) tablet 1 mg, 1 mg, PEG Tube, QDAY erythromycin (ROMYCIN) ophthalmic ointment 0.5 inch, 0.5 inch, Both Eyes, TID levETIRAcetam (KEPPRA) oral solution 500 mg, 500 mg, PEG Tube, BID levothyroxine (SYNTHROID) tablet 125 mcg, 125 mcg, PEG Tube, QDAY(07) melatonin tablet 5 mg, 5 mg, PEG Tube, QHS milk of magnesium oral suspension 30 mL, 30 mL, PEG Tube, QDAY Continuous Infusions: Diet Enteral Feeding Standard Infusion 65 mL/hr at 08/22/22 1822 PRN and Respiratory Meds:acetaminophen Q4H PRN, emollient PRN, labetalol (NORMOD YNE; TRANDATE) injection Q6H PRN, pancrelipase 20,880 Units/sodium bicarbonate 6 50 mg (KU CLOG DESTROYER) PRN (News Producer from Rx), traZODone QHS PRN Objective: Vital Signs: Last Filed Vital Signs: 24 Gladis r Range BP: 135/73 (08/23 1228) Temp: 36.5 C (97.7 F) (08/23 1228) Pulse: 74 (08/23 1228) Respirations: 17 PER MINUTE (08/23 1228) SpO2: 92 % (08/23 1228) O2 Device: None (Room air) (08/23 1228) BP: (129-149)/(70-86) Temp: [36.5 C (97.7 F)-36.9 C (98.5 F)] Pulse: [55-77] Respirations: [16 PER MINUTE-20 PER MINUTE] SpO2: [92 %-93 %] O2 Device: None (Room air) PAINAD Total Score: 1 (08/23/22 1116) CPOT Score Total: 1 (08/23/22 0730) Vitals: 08/10/22 0700 08/15/22 1010 08/15/22 1325 Weight: 99.7 kg (219 lb 12.8 oz) 96.6 kg (212 lb 15.4 oz) 96.2 kg (212 lb) Intake/Output Summary: (Last 24 hours) Intake/Output Summary (Last 24 hours) at 08/23/2022 1324 Last data filed at 08/23/2022 1030 Gross per 24 hour Intake 1671 ml Output 1475 ml Net 196 ml Stool Occurrence: 1 Physical Exam Gen: Appears comfortable HEENT: AT/NC. Corpak in place. Conjunctival injection with drainage Cardiovascular: Regular rhythm, rate in the 70s, normal s1s2, no m/r/g Respiratory: Normal respiratory effort, coarse breath sounds bilaterally, no whe ezing or rhonchi Gastrointestinal: Non-distended soft abdomen, bowel sounds present, no peritonea l signs Musculoskeletal: Spontaneously moves all extremities Extremities: No edema Skin: Dry Neurological: Alert. Severe aphasia, grossly non-focal Psychiatry: Difficult to assess Lab Review Pertinent labs reviewed Point of Care Testing (Last 24 hours) Radiology and other Diagnostics Review: Pertinent radiology reviewed. Bart Mandujano DO ING WORKER * Concepción Rawls OT - 08/23/2022 10:13 AM CST OCCUPATIONAL THERAPY PROGRESS NOTE Name: Derek Castro Jr. : 1945 Age: 77 y.o. Admission Date: 08/09/2022 LOS: 14 days Date of Service: 08/23/2022 Mobility Patient Turn/Position: Supine (sitting up in bed) Progressive Mobility Level: Active bed level mobility Subjective Pertinent Dx per Physician: 77 y.o. male with a PMH of HTN, CAD s/p CABG, CKD, s eizures, and multiple ischemic strokes (2019, May 2022 and Jul 2022) with residu al LUE ataxia who was found slumped over in a chair on 08/09 with right sided weak ness and aphasia. LKW 1130. NIH was 22. He was taken to an OSH where CT/CTA show ed a left M2 occlusion. He was not a TNK candidate due to recent stroke so he wa s then transferred to [facility] and taken for thrombectomy. TICI 3 was obtained. Precautions: Falls;NPO (PEG) Pain / Complaints: Patient demonstrates no signs of pain Objective Psychosocial Status: Resistive Home Living Type of Home: House Home Layout: Able to Live on Main Level w/Bedrm/Bathrm Access Bathroom Shower / Tub: Tub/Shower Unit Bathroom Toilet: Standard Prior Function Level Of [place]: Independent with ADLs and functional transfers;Independen t with homemaking w/ ambulation Lives With: Spouse Receives Help From: None Needed Other Function Comments: Information gathered from EMR as patient unable to prov marisel. Patient typically independent in ADLs without use of device. Vision Comment: Pt making brief eye contact then closing eyes, resists eye opening. ADL's Grooming Assist: Maximum Assist Grooming Deficits: Wash/Dry Face (hand over hand assist to initiate with RUE, ve rbal and physical cues for thoroughness. Dependent to reach across and wash L si de of face.) LE Dressing Assist: Total Assist LE Dressing Deficits: Don/Doff R Sock;Don/Doff L Sock Toileting Assist: Total Assist (Lake) ADL Mobility Bed Mobility: Supine to Sit: Dependent assist (pt actively resisting attempts to sit up, brings legs back into bed and lays himself down. Unable to achieve full upright sitting 2* to pt resistance. Does grasp L bedrail in RUE when on L side after OT places hand on bedrail.) Plan was to get pt up to sink for grooming and/or in the chair, however unable d ue to pt resistance. Upon OT moving bedding out of chair to prepare it, OT found a piece of what looked like suture on chux in chair, about 2 inches long and wi th a knot in the end. Showed it to RN. (Note that pt in bed with abdominal binde r in place at this time). Notified attending physician as well. Cognition Overall Cognitive Status: Impaired Comprehension: Receptive Aphasia Expression: Expressive Aphasia;Non Verbal Cognition Comment: Pt closes eyes and turns head away from OT, when OT turns tanna y from pt to wet a washcloth in sink, pt could be seen in mirror with eyes open watching, however upon OT returning to attempt working with pt his eyes are clos ed. Per RN pt has not had any sedating medications. Bright lights turned on for session. AM-PAC 6 Clicks Daily Activity Inpatient Putting on and taking off regular lower body clothes: Total Bathing (Including washing, rinsing, drying): Total Toileting, which includes using toilet, bedpan, or urinal: Total Putting on and taking off regular upper body clothing: Total Taking care of personal grooming such as brushing teeth: A Lot Eating meals: Total Daily Activity Raw Score: 7 Standardized (T-scale) Score: 20.13 Plan OT Frequency: 5x/week OT Plan for Next Visit: automatic ADLs, visual scanning, functional mobility ADL Goals Patient Will Perform Grooming: w/ Minimum Assist;at Edge of Bed Patient Will Perform UE Dressing: In Chair;w/ Stand By Assist Patient Will Perform LE Dressing: w/ Moderate Assist;In Chair Functional Transfer Goals Pt Will Perform All Functional Transfers: Minimum Assist Pt Will Transfer To Bedside Commode: w/ Moderate Assist OT Discharge Recommendations Recommendation: Inpatient setting;Recommend rehab medicine consult Patient Currently Requires Physical Assist With: All mobility;All personal care ADLs;All home functioning ADLs Patient Currently Requires Supervision For: Communication;Making decisions about safety;Finances Therapist: Concepción Rawls, OT Date: 08/23/2022 ING WORKER * Eb Jennings PT - 08/23/2022 8:30 AM CST PHYSICAL THERAPY NOTE Name: Derek Castro Jr. : 1945 Age: 77 y.o. Admission Date: 08/09/2022 LOS: 14 days Date of Service: 08/23/2022 Attempted PT Treatment Patient sleeping soundly, unable to maintain arousal with verbal and tactile sti muli. Will continue to follow patient for Physical Therapy intervention as appropriate . Therapist: Eb Jennings PT, DPT [id number] Date: 08/23/2022 ING WORKER * Zoë Padilla RN - 08/22/2022 2:57 PM CST I have reviewed the notes, assessments, and/or procedures performed by rTacy Jones, and concur with her/his documentation unless otherwise noted. ING WORKER * Bart Mandujano DO - 08/22/2022 2:27 PM CST General Progress Note Name: Derek Castro Jr. : 1945 Age: 77 y.o. Admission Date: 08/09/2022 LOS: 13 days Date of Service: 08/22/2022 Assessment/Plan: Principal Problem: Acute ischemic left MCA stroke (HCC) Active Problems: CAD (coronary artery disease) Stage 3b chronic kidney disease (HCC) Hyperlipidemia Primary hypertension Hypothyroidism Seizure disorder (HCC) History of multiple strokes Global aphasia Acute right hemiparesis (HCC) Derek Castro is a 77 yo male with a PMHx of HTN/HLD,CAD s/pCABG x5 in 2009, RLE DVT,CKD stage 3, seizures,multiple ischemic strokes(2019,May 2022, Jul 2022) with residual LUE ataxia, hypothyroidism who presented to an OSH ([facility]) on 08/09 for right sided weakness and aphasia. CT/CTA showed a left M2 occlusion. He was not a TNK candidate due to recent stroke, so he wastrans ferred to [facility] for further management. He is now s/p thrombectomy and was admit earline to the [facility] post-op. Patient transferred to the IM service on 08/13. Patient h as ongoing severe dysphagia and aphasia. Plan for repeat video swallow Saturday mo rning and peg tube placement that afternoon if he fails. Left M2 occlusions/p IRw/ [id number] Basal ganglia infarct Chronicvertebral artery occlusion Severe dysphagia and aphasia Hx of multiple ischemic strokes(2019, R MCA 05/2022, L NILA 07/2022) Seizures -Presented for sudden onset right sided weakness and aphasia, L gaze deviation -OSHCT head:L frontal subacute infarct and R fronto parietal chronic infar ct -OSHCTA:Left M2 MCA, distal reconstitution.Chronicocclusion of the cer vical right vertebral artery - MRI head 08/09: Acute moderate sized left MCA territory infarct with mild cortic al petechial type hemorrhage. No midline shift or herniation. Chronic right NILA and MCA territory infarcts, chronic left parietal lobe infarct, and small bilate ral cerebellar infarcts and left caudate head lacunar type infarct - MRA head 08/09: Interval reconstituted flow within previously occluded left M2 b ranch. No remaining large vessel occlusion is identified.Irregularity within t he left carotid siphon with at least mild associated stenosis, likely atheroscle rotic - CT head 08/10: EvolvingLMCA territory infarct, minimal petechial type hemor rhage.Chronic right NILA/MCA territory infarcts, chronic left parietal lobe inf arct, chronic small bilateral cerebellar infarcts, and chronic left caudate head lacunar-type infarcts. Chronic microvascular ischemic changes - CT head 08/11:Evolving L MCA territory infarct with slight increase in mass e ffect - TTE 08/10: LVF normal, EF 60%. Technically limited study, cannot r/o small righ t to left shunting - KASSI 08/15: No evidence of interatrial shunting by color Doppler or agitated seferino ine contrast studies. No evidence of intracardiac thrombus, vegetation, or mass. Normal left ventricular size and systolic function. Estimated ejection fraction of 65%. No segmental wall motion abnormalities. Probably normal right ventric ular size and contractility. Normal biatrial size. No hemodynamically significan t valvular abnormalities. 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 hypercoagulable state - Arterial hypercoaguable workup: Cardiolipin antibodies negative, Beta 2 GP IgM /IgG negative, Hex lupus AC pending - PET 08/15: No discrete hypermetabolic mass or metastatic disease - Records requested from outpatient abseiling instructor to indicate the reasoning for o ngoing DAPT. Last visit 03/2022. No clear indication noted Plan: > Started on Eliquis per neurology recommendations > Cont aspirin, atorvastatin, Keppra > Discontinuing plavix and cont single agent antiplatelet therapy with ASA and AC per neuro recs > Rehab medicine consulted - PT/OT recommending inpatient care; rehab medicine to reassess > Repeat video swallow 08/20 did not go well thus PEG placed on 08/20 > 30 day cardiac event monitoror ILR at discharge, ordered HTN HLD CAD s/p CABG x5(2009) - Echo 08/10 with EF 60%, no WMA or ventricle dysfunction - Lipid panel: LDL 106, HDL 29 - Troponin, BNPWNL -SBP goal:< 160per neuro Plan: > Cont amlodipine and statin CKD stage 3 - BaselineCr~1.8-2 - Creat stable near baseline Fever - resolved -08/10febrileupto 38.4 -BCs: NGTD -MRSA neg, CXR without consolidation, Procal 0.11 -Sputum culture with normal oropharyngeal hood -UA 2+ leuks, 20-50 WBCs, culture NGTD -Vanc/zosyninitially started and narrowed torocephin for possible UTI -s/p rocephin 08/11-08/13 - No further fever or chills - Leukocytosis 08/22 however likely reactive and low suspicion for infection Hypothyroidism > Cont ASSEMBLY PERSON levothyroxine Rash - Dry, red macular rash noted to entire back Plan: > Cont Emollient cream Pulmonary nodules - Incidental finding -Multiple subcentimeter pulmonary nodules, indeterminant on initial examinatio n. No dominant pulmonary mass Plan: > Follow-up CT chest in 3 months recommended to evaluate for stability Concern for hypopharyngeal mass - ENT consulted - CT neck reviewed without evidence of mass Acute urinary retention - Likely neurogenic due to stroke - Requiring freq SCs. Lake placed 08/13 Plan: > Cont doxazosin 1mg daily (unable to use Flomax due to Corpak) > Voiding trial did not go well thus placing lake back in, potential that he has neurogenic bladder Agitation - Noted to have increased delirium and agitation at night - Required PO Seroquel and mitts on 08/15 Plan: > Melatonin 5mg QHS, trazodone 25mg QHS PRN IVF: none Nutrition: TFs VTE prophylaxis: subcutaneous heparin Code Status: Full Code Disposition: Admit to medicine for further evaluation and management of principa l milka Mandujano, DO Internal Medicine Med Private P Total time spent was greater than 50 minutes in care coordination (reviewing the records, pharmacy, documentation, discussion with the nurse, supportive employment case manager and t he social work, discussion with edi consultant services) and bedside counseling. Subjective Derek Castro Jr. is a 77 y.o. male. Doing about the same as yesterday. Toleratin g TFs. No issues overnight. ROS: Unable to obtain due to severe aphasia and mentation Medications Scheduled Meds:amLODIPine (NORVASC) tablet 10 mg, 10 mg, PEG Tube, QDAY apixaban (ELIQUIS) tablet 5 mg, 5 mg, SEE ADMIN INSTRUCTIONS, BID aspirin chewable tablet 81 mg, 81 mg, PEG Tube, QDAY atorvastatin (LIPITOR) tablet 80 mg, 80 mg, PEG Tube, QDAY chlorhexidine gluconate (PERIDEX) 0.12 % solution 15 mL, 15 mL, Swish & Spit, BID(8-20) senna (SENOKOT) oral syrup 8.8 mg, 8.8 mg, PEG Tube, BID And docusate sodium (COLACE) oral solution 50 mg, 50 mg, PEG Tube, BID doxazosin (CARDURA) tablet 1 mg, 1 mg, PEG Tube, QDAY erythromycin (ROMYCIN) ophthalmic ointment 0.5 inch, 0.5 inch, Both Eyes, TID levETIRAcetam (KEPPRA) oral solution 500 mg, 500 mg, PEG Tube, BID levothyroxine (SYNTHROID) tablet 125 mcg, 125 mcg, PEG Tube, QDAY(07) melatonin tablet 5 mg, 5 mg, PEG Tube, QHS milk of magnesium oral suspension 30 mL, 30 mL, PEG Tube, QDAY Continuous Infusions: Diet Enteral Feeding Standard Infusion 20 mL/hr at 08/21/22 1655 PRN and Respiratory Meds:acetaminophen Q4H PRN, emollient PRN, labetalol (NORMOD YNE; TRANDATE) injection Q6H PRN, pancrelipase 20,880 Units/sodium bicarbonate 6 50 mg (KU CLOG DESTROYER) PRN (News Producer from Rx), traZODone QHS PRN Objective: Vital Signs: Last Filed Vital Signs: 24 Gladis r Range BP: 129/77 (08/22 1217) Temp: 36.3 C (97.3 F) (08/22 1217) Pulse: 71 (08/22 1217) Respirations: 18 PER MINUTE (08/22 1217) SpO2: 93 % (08/22 1217) O2 Device: None (Room air) (08/22 1217) BP: (129-157)/(67-84) Temp: [36.3 C (97.3 F)-36.8 C (98.2 F)] Pulse: [65-73] Respirations: [18 PER MINUTE] SpO2: [92 %-96 %] O2 Device: None (Room air) PAINAD Total Score: 0 (08/22/22 0916) Vitals: 08/10/22 0700 08/15/22 1010 08/15/22 1325 Weight: 99.7 kg (219 lb 12.8 oz) 96.6 kg (212 lb 15.4 oz) 96.2 kg (212 lb) Intake/Output Summary: (Last 24 hours) Intake/Output Summary (Last 24 hours) at 08/22/2022 1428 Last data filed at 08/22/2022 0916 Gross per 24 hour Intake 1440 ml Output 750 ml Net 690 ml Stool Occurrence: 1 Physical Exam Gen: Appears comfortable HEENT: AT/NC. Corpak in place. Conjunctival injection with drainage Cardiovascular: Regular rhythm, rate in the 80s, normal s1s2, no m/r/g Respiratory: Normal respiratory effort, coarse breath sounds bilaterally, no whe ezing or rhonchi Gastrointestinal: Non-distended soft abdomen, bowel sounds present, no peritonea l signs Musculoskeletal: Spontaneously moves all extremities Extremities: No edema Skin: Dry Neurological: Alert. Severe aphasia, grossly non-focal Psychiatry: Difficult to assess Lab Review Pertinent labs reviewed Point of Care Testing (Last 24 hours) Glucose: (!) 147 (08/22/22 0703) Radiology and other Diagnostics Review: Pertinent radiology reviewed. Bart Mandujano DO ING WORKER * David Williamson MA,CCC-CLINICAL RESEARCH SPEC - 08/22/2022 11:51 AM CST SPEECH-LANGUAGE PATHOLOGY DAILY TREATMENT NOTE Dysphagia therapy completed. Moderate-Severe oropharyngeal dysphagia. Suspected etiology of dysphagia: impaired weakness/sensation/ROM secondary to CV A; intubated 08/09-08/10; Hx of prior CVAs (May 2022 and July 2022) Education provided to: patient, RN Swallow Recommendations PO: Ice chips only NPO: Continue senior care non-oral nutrition Medications via PEG Ice Chip Trials: 10-15 per hour Supervision: 1:1 Positioning: Upright as tolerated Swallow Strategies: Feeding assistance needed Oral Hygiene: 3 times per day, Complete oral care to minimize the risk of aspira ting oral bacteria Communication Recommendations Provide models to improve comprehension No functional communication system at this time Anticipate pt's wants and needs based on non-verbal cues Goal : Pt will participate in ongoing assessment of speech-language given mod-ma x cues. Not met Comment: Focus on dysphagia tx this date Continue to address this goal Goal : Pt will follow 1-step directions with 40% accuracy given max cues. Not met Comment: Required [id number] assistance to follow commands during dysphagia interventions Continue to address this goal Goal : Pt will participate in PO trials of ice chips to utilize his swallow func tion given mod cues for attention Partly met Comment: Throat clearing noted on +1/5 ice chips Continue to address this goal Goal : Pt will participate in ongoing assessment of dysphaiga given mod cues for attention Partly met Pt did not participate in PO trials when clinician attempted to feed pt. Pt self -fed all PO on this date. Pt assessed w/ thin liquids via tsp/cup/straw, mildly thick liquids via tsp/cup, straw, pureed solids Oral Stage : Withdrawal: labial weakness; decreased sensation Bolus formation: slowed Mastication: did not trial solids Transfer: delayed; anticipate premature spillage Anterior bolus spillage: significant on the right when pt utilizing a cup Residues: on the right; CLINICAL RESEARCH SPEC suctioned from right buccal Pharyngeal stage : O2: stable; room air Swallow Initiation: delayed 4-8 seconds per bolus Laryngeal elevation: suspect to be reduced Signs/symptoms of aspiration: throat clearing & wet vocal quality noted intermittently with thin liquids & mildly thick Continue to address this goal Plan for next visit: PO trials Frequency: 2-3x/week Therapist: David Williamson MA,CCC-CLINICAL RESEARCH SPEC Voalte [id number] Office [id number] Date: 08/22/2022 ING WORKER * Concepción Rawls OT - 08/22/2022 10:49 AM CST OCCUPATIONAL THERAPY NOTE Name: Derek Castro Jr. : 1945 Age: 77 y.o. Admission Date: 08/09/2022 LOS: 13 days Date of Service: 08/22/2022 Pt not available, getting bath. Will continue to follow. Therapist: Concepción Rawls OT Date: 08/22/2022 ING WORKER * Santos Beltrán, PT - 08/22/2022 9:58 AM CST PHYSICAL THERAPY PROGRESS NOTE Name: Derek Castro Jr. : 1945 Age: 77 y.o. Admission Date: 08/09/2022 LOS: 13 days Date of Service: 08/22/2022 Mobility Patient Turn/Position: Weight shifted (Bed) Progressive Mobility Level: Walk in room Distance Walked (feet): 50 ft Level of Assistance: Assist X1 Assistive Device: Hand Held Activity Limited By: Weakness;Mental Status Variability Subjective Significant hospital events: 77 y.o. male with a PMH of HTN, CAD s/p CABG, CKD, seizures, and multiple ischemic strokes (2019, May 2022 and Jul 2022) with resid ual LUE ataxia who was found slumped over in a chair on 08/09 with right sided wea kness and aphasia. LKW 1130. NIH was 22. He was taken to an OSH where CT/CTA rosa maria wed a left M2 occlusion. He was not a TNK candidate due to recent stroke so he w as then transferred to [facility] and taken for thrombectomy. TICI 3 was obtained and patient was admitted to [facility] post op. Patient transferred to the IM service on . Patient with ongoing severe dysphagia and aphasia. Plan for peg tube placem ent 08/14. Mental / Cognitive Status: Alert;Inconsistent with Command Following;Cooperative Pain: Patient has no complaint of pain Pain Interventions: Patient agrees to participate in therapy Comments: SBP <160; Corpak; Lake Ambulation Assist: Unable to Provide History;Independent Mobility in Community w ithout Device Home Situation: Lives with Family Type of Home: House Entry Stairs: Ramp In-Home Stairs: Able to Live on One Level Comments: Patient unable to give PLOF or home setup, information gathered from E MR. Per chart, patient independent with mobility and ADLs without a device prior to admit. Bed Mobility/Transfer Bed Mobility: Supine to Sit: Minimal Assist;Moderate Assist;Head of Bed Elevated ;Use of Rail;Requires Extra Time;Assist with Trunk Bed Mobility: Sit to Supine: Minimal Assist;HOB Elevated;No Rail;Requires Extra Time;Assist with B LE Comments: tactile cues for hand placement on railto assist with pulling trunk up to sitting at EOB. Min assist for EOB balance, retropulsive at EOB with verbal cues for anterior weight shift Transfer Type: Sit to Stand Transfer: Assistance Level: To/From;Bed;Minimal Assist Transfer: Assistive Device: Hand Hold Assist Transfers: Type Of Assistance: Verbal Cues;For Balance;For Safety Considerations End Of Activity Status: In Bed;Nursing Notified;Instructed Patient to Request As sist with Mobility;Instructed Patient to Use Call Light Comments: Bed alarm activated Balance Comments: Pt was min-mod A for sitting balance this date; pt kept attempting to lie bakc down from EOB until in standing position Gait Gait Distance: 50 feet Gait: Assistance Level: Minimal Assist;Moderate Assist Gait: Assistive Device: Hand Hold Assist Gait: Descriptors: Decreased foot clearance RLE;Decreased foot clearance LLE;Pac e: Slow;Pathway deviations;No balance loss;Variable step length;Step-To Gait Comments: Pt was more distracted from hallway ambulation at [facility], and was more redirectable for room ambulation. Pt requires max vc's for gait pattern and pwa thway deviations Activity Limited By: (Mental status/command following) Education Persons Educated: Patient Patient Barriers To Learning: Cognitive Deficits;Impaired Communication;Family N ot Present (expressive aphasia) Interventions: Repetition of Instructions Teaching Methods: Verbal Instruction Patient Response: More Instruction Required;Return Demonstration Topics: Plan/Goals of PT Interventions;Mobility Progression;Recommend Continued Therapy;Therapy Schedule Assessment/Progress Impaired Mobility Due To: Cognitive Deficits;Impaired Balance;Decreased Strength ;Medical Status Limitation Impaired Strength Due To: Medical Status Limitation;Cognitive Deficits Assessment/Progress: Should Improve w/ Continued PT Comments: Pt continues to have challenge with basic command following during fun ctional mobility, but is willing to participate AM-PAC 6 Clicks Basic Mobility Inpatient Turning from your back to your side while in a flat bed without using bed rails: A Little Moving from lying on your back to sitting on the side of a flat bed without usin g bedrails : A Lot Moving to and from a bed to a chair (including a wheelchair): A Little Standing up from a chair using your arms (e.g. wheelchair, or bedside chair): A Little To walk in hospital room: A Little Climbing 3-5 steps with a railing: A Lot Basic Mobility Inpatient Raw Score: 16 Standardized (T-scale) Score: 38.32 AM-PAC Basic Mobility Functional Stage: 34-51 Limited Mobility Indoors Goals Goal Formulation: Patient Unable to Participate in Goal Setting Time For Goal Achievement: 5 days, To, 7 days Patient Will Go Supine To/From Sit: w/ Minimal Assist Patient Will Transfer Bed/Chair: w/ Stand By Assist Patient Will Transfer Sit to Stand: w/ Stand By Assist Patient Will Ambulate: 151-200 Feet, w/ No Device, w/ Stand By Assist Plan Treatment Interventions: Mobility Training;Neuromuscular Reeducation;Balance Act ivities;Coordination Training;Strengthening Plan Frequency: 5 Days per Week PT Plan for Next Visit: continue training bed mobility, transfers, gait pattern, and balance PT Discharge Recommendations Recommendation: Inpatient setting;Recommend rehab medicine consult Patient Currently Requires Physical Assist With: All mobility;All personal care ADLs;All home functioning ADLs Therapist: Santos Beltrán, PT Date: 08/22/2022 ING WORKER * Shayy Jean RN - 08/21/2022 4:52 PM CST Okay to restart tube feeds at 20 ml/hr and increase q6 until goal rate per MPP M aleksandra Garcia ING WORKER * Deisi Negrete, FELIPE - 08/21/2022 2:00 PM CST PHYSICAL THERAPY PROGRESS NOTE Name: Derek Castro : 1945 Age: 77 y.o. Admission Date: 08/09/2022 LOS: 12 days Date of Service: 08/21/2022 Mobility Patient Turn/Position: Chair Progressive Mobility Level: Walk in hallway Distance Walked (feet): 130 ft Level of Assistance: Assist X2 Assistive Device: Hand Held Activity Limited By: No limitations Subjective Significant hospital events: 77 y.o. male with a PMH of HTN, CAD s/p CABG, CKD, seizures, and multiple ischemic strokes (2019, May 2022 and Jul 2022) with resid ual LUE ataxia who was found slumped over in a chair on 2/9 with right sided wea kness and aphasia. LKW 1130. NIH was 22. He was taken to an OSH where CT/CTA rosa maria wed a left M2 occlusion. He was not a TNK candidate due to recent stroke so he w as then transferred to [facility] and taken for thrombectomy. TICI 3 was obtained and patient was admitted to [facility] post op. Patient transferred to the IM service on . Patient with ongoing severe dysphagia and aphasia. Plan for peg tube placem ent 08/14. Mental / Cognitive Status: Alert;Inconsistent with Command Following;Cooperative Persons Present: RehabTechnician Pain: Patient has no complaint of pain Comments: SBP <160; Corpak; Lake Comments: +bilateral mittens, removed for session donned prior to exit Ambulation Assist: Unable to Provide History;Independent Mobility in Community w ithout Device Home Situation: Lives with Family Type of Home: House Entry Stairs: Ramp In-Home Stairs: Able to Live on One Level Comments: Patient unable to give PLOF or home setup, information gathered from E MR. Per chart, patient independent with mobility and ADLs without a device prior to admit. Bed Mobility/Transfer Bed Mobility: Supine to Sit: Minimal Assist;Head of Bed Elevated;Assist with Nba nk;Requires Extra Time Comments: tactile cues for hand placement on railto assist with pulling trunk up to sitting at EOB. Min assist for EOB balance, retropulsive at EOB with verbal cues for anterior weight shift Transfer Type: Sit to Stand Transfer: Assistance Level: To/From;Bed;Minimal Assist Transfer: Assistive Device: Hand Hold Assist Transfers: Type Of Assistance: Verbal Cues;For Safety Considerations End Of Activity Status: Up in Chair;Nursing Notified;Instructed Patient to Reque st Assist with Mobility;Instructed Patient to Use Call Light Gait Gait Distance: 130 feet Gait: Assistance Level: Minimal Assist;of 1st person;Standby Assist;of 2nd perso n;Safety Considerations Gait: Assistive Device: Hand Hold Assist Gait: Descriptors: Pace: Slow;Decreased heel strike RLE;Decreased heel strike LL E;Swing-Through Gait;Decreased step length;Loss of balance Comments: chair follow for safety, following all verbal cues for direction. impu lsive at times, verbal cues for safety Education Persons Educated: Patient Patient Barriers To Learning: Cognitive Deficits;Impaired Communication;Family N ot Present (expressive aphasia) Interventions: Repetition of Instructions Teaching Methods: Verbal Instruction Patient Response: More Instruction Required;Return Demonstration Topics: Plan/Goals of PT Interventions;Mobility Progression;Recommend Continued Therapy;Therapy Schedule Assessment/Progress Impaired Mobility Due To: Cognitive Deficits;Impaired Balance;Decreased Strength ;Medical Status Limitation Impaired Strength Due To: Medical Status Limitation;Cognitive Deficits Assessment/Progress: Should Improve w/ Continued PT AM-PAC 6 Clicks Basic Mobility Inpatient Turning from your back to your side while in a flat bed without using bed rails: A Little Moving from lying on your back to sitting on the side of a flat bed without usin g bedrails : A Lot Moving to and from a bed to a chair (including a wheelchair): A Little Standing up from a chair using your arms (e.g. wheelchair, or bedside chair): A Little To walk in hospital room: A Little Climbing 3-5 steps with a railing: A Lot Basic Mobility Inpatient Raw Score: 16 Standardized (T-scale) Score: 38.32 AM-PAC Basic Mobility Functional Stage: 34-51 Limited Mobility Indoors Goals Goal Formulation: Patient Unable to Participate in Goal Setting Time For Goal Achievement: 5 days, To, 7 days Patient Will Go Supine To/From Sit: w/ Minimal Assist Patient Will Transfer Bed/Chair: w/ Stand By Assist Patient Will Transfer Sit to Stand: w/ Stand By Assist Patient Will Ambulate: 151-200 Feet, w/ No Device, w/ Stand By Assist Plan Treatment Interventions: Mobility Training;Neuromuscular Reeducation;Balance Act ivities;Coordination Training;Strengthening Plan Frequency: 5 Days per Week PT Plan for Next Visit: bed mobility; transfer training; gait training; balance activities PT Discharge Recommendations Recommendation: Inpatient setting;Recommend rehab medicine consult Patient Currently Requires Physical Assist With: All mobility;All personal care ADLs;All home functioning ADLs Therapist: Deisi Negrete PT, DPT [id number] Date: 08/21/2022 ING WORKER * Mariana Waterman RD - 08/21/2022 1:50 PM CST CLINICAL NUTRITION Clinical Nutrition Follow-Up Assessment Name: Derek Castro Jr. : 1945 Age: 77 y.o. Admission Date: 08/09/2022 LOS: 12 days Date of Service: 08/21/2022 Recommendation: PEG tube placed 08/20 with tip of the tube well-positioning in the gastric petrona dy. When able, RD REC restart continuous feeds as follows: ? Isosource 1.5 at 65 mL/hr x 22 hours (2-hour hold for Synthroid). ? At goal provides 2145 kcal (100% needs), 97 g/protein (100% needs) and 1092 mL of free water. ? REC flush 200 mL water q4h. ? EN and all water flushes provide 2292 mL/water/day for 107% needswhich is co nsistent with water flushes of current tube feeding order. ? Fluids are ultimately deferred to primary team. If bolus tube feeds are desired, REC bolus 5.5 cartons if Isosource 1.5 anthony y. ? Bolus 1.5 cartons (375 mL) TID (02/10/16) and 1 carton (250 mL) once daily (20) . ? Would bolus cartons (125 mL) for first 2 feedings. If tolerated, bolus 1 carton (250 mL) for next 2 feedings. If tolerated, increase to goal rate. ? At goal provides 2062 kcal (100% needs), 94 g/pro (100% needs) and 1050 mL of free water. ? REC flush 60 mL before and after each feeding and flush an additional 250 mL B ID for hydration but not at the same time as tube feeds to keep volume low. ? EN and all water flushes provide 2030 mL/water/day 99% needs). ? Fluids are ultimately deferred to primary team. RD will monitor for possible diet advancement/po intake and adjust tube feed ing if warranted. The nutrition-related order modifications are made in communication with the [facility] service, who remains responsible for the orders and overall care of the [facility] ient. Comments: RD following up for EN. Per VSS 08/20, pt is to remain NPO, prognosis for diet a dvancement is guarded. Pt had PEG G tube placed 08/20 with tip of the tube well- positioned in the gastric body. Tube feeds will restart at 4:30pm today 08/21. Pt laying in bed at time of visit. Not communicative. Per nursing, no issues w ith tube feed recently. EN is currently meeting > 90% needs. Clinical nutrition will continue to monitor per protocol. Nutrition Assessment of Patient: Admit Weight: 97.4 kg; Weight Change Since Admit: -.8kg BMI (Calculated): 32.24; BMI Categories Adult: Obesity Class I: 30-34.9 Pertinent Allergies/Intolerances: NKFA Pertinent Labs: BUN 35, Crea 1.63, GFR 43, GLU 122; Pertinent Meds: Senna and colace BID, Synthroid, MOM; Current EN Order: Isosource 1.5 at 65 mL/hr x 22 hours Intake Comment: 4-day average 08/16 to 08/19 = 1206 mL/day Intake (calories) Daily Average : 1809 kilocalories (97% low end needs) Intake (protein) Daily Average : 82 grams (91% low end needs) Estimated Calorie Needs: 8638-6693 (25-30kcal/kg DBW) Estimated Protein Needs: 90-111g (1.2-1.5g/kg DBW) Malnutrition Assessment: Does not meet criteria Nutrition Focused Physical Assessment: Loss of Subcutaneous Fat: No; Muscle Wasting: No; Edema: Yes; Severity: Mild; Location: Generalized, Left, Lower extremities, Righ t, Upper extremities Pressure Injury: none Comment: + BM 08/19 Nutrition Diagnosis: Inadequate oral intake Etiology: NPO due to aspiration risk Signs & Symptoms: Need for EN to meet 100% of needs Intervention / Plan: EN RECS, monitor and adjust as needed Monitor diet progression Monitor GI issues, meds and labs as needed Goals: EN tolerated and meeting >75% of nutritional needs Time Frame: Throughout stay Status: Met;Ongoing Clinical Dietitian: Mariana Waterman RD, LD Available on [employer] ING WORKER * Patricia Malik, PHARMD - 08/21/2022 1:13 PM CST Pharmacy Anticoagulation Teaching Derek Castro Jr. was provided with both verbal and written drug information about apixaban. Discussion with Mr. Castro included: the medication regimen, dosing, mo nitoring, possible adverse effects, food/drug interactions to be aware of and OT C/herbal medication use. Emphasis was placed on the importance of medication com pliance. Mr. Castro was also encouraged to contact the pharmacist with any further questions. Patricia Malik PHARMD, BCOP 08/21/2022 ING WORKER * Vanessa Shanks RT - 08/21/2022 12:28 PM CST RT Adult Assessment Note NAME:Derek Castro Jr. :1945 AGE: 77 y.o. ADMISSION DATE: 08/09/2022 DAYS ADMITTED: LOS: 12 days RT Treatment Plan: Protocol Plan: Procedures PAP: Place a nursing order for "IS Q1h While Awake" for any of Lung Expansion in dicators SpO2: Continuous (Document SpO2 result Qshift) Comment: refuse cpap n cpox Additional Comments: Impressions of the patient: patient looked comofrtable Intervention(s)/outcome(s): RT Eval Patient education that was completed: none Recommendations to the care team: continue care Vital Signs: Pulse: 80 RR: 18 PER MINUTE SpO2: 92 % O2 Device: None (Room air) Liter Flow: O2%: Breath Sounds: Respiratory Effort: Non-Labored ING WORKER * Myra Herndon, ELECTRICIAN SHOP-CONFERENCE CONCIERGE - 08/21/2022 10:45 AM CST Rehabilitation Medicine Follow Up Name: Derek Castro Jr. : 1945 Age: 77 y.o. Admission Date: 08/09/2022 LOS: 12 days Date of Service: 08/21/2022 Precautions: Fall, seizure, aspiration Weight Bearing Precautions: WBAT Assessment & Plan: Principal Problem: Acute ischemic left MCA stroke (HCC) Active Problems: CAD (coronary artery disease) Stage 3b chronic kidney disease (HCC) Hyperlipidemia Primary hypertension Hypothyroidism Seizure disorder (HCC) History of multiple strokes Global aphasia Acute right hemiparesis (HCC) Gait abnormality Impaired mobility/ADLs Impaired transfers Cognitive Deficits Derek Castro Jr. is a 77 y.o. year old male admitted to [facility] on 08/09/2022 with the following issues: stroke - Left MCA s/p thrombectomy with TICI 3 obtained Assessment and Recommendations: Post-acute care rehabilitation needs: Acute inpatient rehabilitation Patients medical complexity with recent Left MCA CVA, in the setting of prior Right MCA CVA warrants daily physician oversight and functional goals consiste nt with intensive rehabilitation in acute inpatient rehabilitation. While patient likely has medical complexity, please note patient will need to be tolerating per PEG intake. Family goals continue to be aggressive with desire for rehab placement; Has adeq uate, consistent family with son and (although not physically well to readi ly care for patient). Additional Assessment/Recommendations; Impaired gait/mobility/transfers: The patient will benefit from continued work with PT to address mobility deficit s Impaired ADLs: The patient will benefit from ongoing OT to address functional deficits Dysphagia: S/p PEG placement The patient would continue to benefit from CLINICAL RESEARCH SPEC for dysphagia management at next level of care Aphagia: The patient would benefit from continued CLINICAL RESEARCH SPEC for cognitive/Communication deficit s Thank you for allowing us to participate in the care of this patient. Please charlie l us with questions or concerns. Myra Herndon, JENNA-CONFERENCE CONCIERGE, AP-PMN Nurse Practitioner, Rehab Medicine Available via [facility]/[employer] M- 8 p Subjective Derek Castro Jr. is a 77 y.o. male with history of CAD, multiple CVAs, admitted w ith Left MCA CVA s/p thrombectomy with TICI 3 obtained. Patient is seen in follow up for post acute rehab recommendations. He unfortunat dina did not receive PT or OT due to procedure conflict yesterday, with no noted therapy since 08/17. Patient with inconsistent direction following this date. He is s/p PEG 08/20 and continues to be NPO related to dysphagia. Last BM 08/19. Medications Scheduled Meds:[START ON 08/22/2022] amLODIPine (NORVASC) tablet 10 mg, 10 mg, PE G Tube, QDAY apixaban (ELIQUIS) tablet 5 mg, 5 mg, SEE ADMIN INSTRUCTIONS, BID [START ON 08/22/2022] aspirin chewable tablet 81 mg, 81 mg, PEG Tube, QDAY [START ON 08/22/2022] atorvastatin (LIPITOR) tablet 80 mg, 80 mg, PEG Tube, QDAY chlorhexidine gluconate (PERIDEX) 0.12 % solution 15 mL, 15 mL, Swish & Spit, BID(8-20) senna (SENOKOT) oral syrup 8.8 mg, 8.8 mg, PEG Tube, BID And docusate sodium (COLACE) oral solution 50 mg, 50 mg, PEG Tube, BID [START ON 08/22/2022] doxazosin (CARDURA) tablet 1 mg, 1 mg, PEG Tube, QDAY erythromycin (ROMYCIN) ophthalmic ointment 0.5 inch, 0.5 inch, Both Eyes, TID levETIRAcetam (KEPPRA) oral solution 500 mg, 500 mg, PEG Tube, BID levothyroxine (SYNTHROID) tablet 125 mcg, 125 mcg, PEG Tube, QDAY(07) melatonin tablet 5 mg, 5 mg, PEG Tube, QHS [START ON 08/22/2022] milk of magnesium oral suspension 30 mL, 30 mL, PEG Tube, Q DAY sodium chloride 0.9 % infusion, 1,000 mL, Intravenous, ONCE Continuous Infusions: Diet Enteral Feeding Standard Infusion 0 each (08/18/22 0610) PRN and Respiratory Meds:acetaminophen Q4H PRN, emollient PRN, labetalol (NORMOD YNE; TRANDATE) injection Q6H PRN, pancrelipase 20,880 Units/sodium bicarbonate 6 50 mg (KU CLOG DESTROYER) PRN (News Producer from Rx), traZODone QHS PRN Review of Systems: Pertinent positives noted above in HPI Objective: Impairments: cognitive impairments, communication deficits, dysphagia, hemiplegi a, loss of coordination and weakness. Activity Limitations: eating, grooming, bathing, dressing - upper, dressing - l ower, toileting, transfers, ambulation, wheelchair, comprehension, expression an d problem solving Participation Restrictions: unable to return home safely Family / Patient Dispositional Goals: return home with family assistance Barriers/Facilitators: Barriers: High burden of care Facilitators: good home setup, good family / social support, improving strength / endurance and improving medical condition Rehabilitation Prognosis: Fair to good Tolerance for three hours of therapy a day: Fair to good Overall Functional Goals Gait and mobility Min A Transfers Min A Upper body dressing Mod-I Lower body dressing Min A Toileting Min A Bathing Min A Cognition / Communication Speech therapy will evaluate and treat cognition and c ommunication deficits and assess for safe swallow Current Level Of Function: PT Gait:Gait Distance: 130 feet Gait: Assistance Level: Minimal Assist, of 1st p erson, Standby Assist, of 2nd person, Safety Considerations Gait: Assistive Shirley ce: Hand Hold Assist Bed Mobility/Transfers Bed Mobility: Rolling: Maximum Assist, Verbal Cues, Bed Flat, Safety Considerati ons, Assist with Trunk, Assist with B LE (Max toward left, Min toward right.) Bed Mobility: Supine to Sit: Minimal Assist, Head of Bed Elevated, Assist with T runk, Requires Extra Time Comments: tactile cues for hand placement on railto assist with pulling trunk up to sitting at EOB. Min assist for EOB balance, retropulsive at EOB with verbal cues for anterior weight shift Transfer Type: Sit to Stand Transfer: Assistance Level: To/From, Bed, Minimal Assist Transfer: Assistive Device: Hand Hold Assist Transfers: Type Of Assistance: Verbal Cues, For Safety Considerations Other Transfer Type: Stand to Sit Other Transfer: Assistance Level: To, Bed, Moderate Assist, x2 People Other Transfer: Assistive Device: Hand Hold Assist Other Transfer: Type Of Assistance: Verbal Cues, For Safety Considerations, Requ ires Extra Time (2-person to redirect patient and get closer to bed to sit down) End Of Activity Status: Up in Chair, Nursing Notified, Instructed Patient to Req uest Assist with Mobility, Instructed Patient to Use Call Light Comments: bed in chair mode OT ADL's Where Assessed: Standing at Sink Grooming Assist: Moderate Assist Grooming Deficits: Wash/Dry Face UE Dressing Assist: Total Assist LE Dressing Assist: Maximum Assist LE Dressing Deficits: Don/Doff R Sock, Don/Doff L Sock Toileting Assist: Minimal Assist Toileting Deficits: Steadying Comment: When donning new gown, pt able to thread R and LUE and then attempts to pull up over his head. Pt requires step by step verbal cues to complete face wa shing task. Pt unable to complete task without hand over hand assist and verbal cues. In the chair, provided pt with chapstick and he is able to remove the cap but unable to bring to his face. CLINICAL RESEARCH SPEC SWALLOW EVALUATION SUMMARY Plan: 3-5 x/week Prognosis: Guarded Vital Signs: Last Filed Vital Signs: 24 Gladis r Range BP: 132/66 (08/21 1119) Temp: 37.1 C (98.7 F) (08/21 1119) Pulse: 80 (08/21 112) Respirations: 18 PER MINUTE (08/21 122) SpO2: 92 % (08/21 1224) O2 Device: None (Room air) (08/21 1224) O2 Liter Flow: 2 Lpm (08/20 1730) SpO2 Pulse: 77 (08/20 1745) BP: (116-154)/(49-92) Temp: [36.7 C (98 F)-37.1 C (98.7 F)] Pulse: [73-84] Respirations: [12 PER MINUTE-20 PER MINUTE] SpO2: [89 %-96 %] O2 Device: None (Room air) O2 Liter Flow: 2 Lpm PAINAD Total Score: 0 (08/21/22 0849) Vitals: 08/10/22 0700 08/15/22 1010 08/15/22 1325 Weight: 99.7 kg (219 lb 12.8 oz) 96.6 kg (212 lb 15.4 oz) 96.2 kg (212 lb) Intake/Output Summary: (Last 24 hours) Intake/Output Summary (Last 24 hours) at 08/21/2022 1621 Last data filed at 08/21/2022 1506 Gross per 24 hour Intake 110 ml Output 1095 ml Net -985 ml Stool Occurrence: 1 Physical Exam: BP: 132/66 (08/21 1119) Temp: 37.1 C (98.7 F) (08/21 1119) Pulse: 80 (08/21 1120) Respirations: 18 PER MINUTE (08/21 122) SpO2: 92 % (08/21 122) O2 Device: None (Room air) (02/21 1225) O2 Liter Flow: 2 Lpm (08/20 1730) SpO2 Pulse: 77 (08/20 1745) Body mass index is 32.24 kg/m. Gen: Aphagic; Older male in hospital bed in NAD HEENT: EOMI- midgaze with left gaze preference; Left eye with ointment in place Heart: Extremities well perfused, no noted edema Lungs: non labored breathing, on room air Abdomen: Soft, non-tender Skin: no gross lesions appreciated MSK: Unable to consistently follow directions for MST; He moves his BUE (in mitt ens) spontaneously; BLE, able to PF on Right, inconsistent with Left; Crosses Ri ght foot over left. Gentle increase in tone BLE with attempted PROM- may have be en more resistant to movement vs. True tone Neuro: Face with right paresis; Midline gaze with left gaze preference, does attend to right Memory/Cognition/Speech Aphasic, does intermittently follow one step commands Intake/Output Summary (Last 24 hours) at 08/21/2022 1621 Last data filed at 08/21/2022 1506 Gross per 24 hour Intake 110 ml Output 1095 ml Net -985 ml Hematology: Lab Results Component Value Date HGB 14.3 08/20/2022 HCT 42.5 08/20/2022 PLTCT 295 08/20/2022 WBC 9.4 08/20/2022 NEUT 71 08/14/2022 ANC 6.61 08/14/2022 ALC 0.97 08/14/2022 NEL 12 08/14/2022 AMC 1.13 08/14/2022 ABC 0.04 08/14/2022 MCV 90.7 08/20/2022 MCHC 33.7 08/20/2022 MPV 9.6 08/20/2022 RDW 14.1 08/20/2022 , Coagulation: No results found for: PT, PTT, INR and General Chemistry: Lab Results Component Value Date NA 141 08/20/2022 K 4.3 08/20/2022 CL 104 08/20/2022 GAP 10 08/20/2022 BUN 35 08/20/2022 CR 1.63 08/20/2022 GLU 122 08/20/2022 CA 9.2 08/20/2022 ALBUMIN 3.7 08/09/2022 LACTIC 1.2 08/10/2022 OBSCA 1.20 08/13/2022 MG 2.0 08/13/2022 TOTBILI 0.7 08/09/2022 Point of Care Testing (Last 24 hours) POC Glucose (Download): 98 (08/20/22 3982) Radiology and other Diagnostics Review: Pertinent radiology reviewed. DANY Pierre, AP-PMN Nurse Practitioner, Rehab Medicine Available via [employer] or [employer] M-F 8-4 p Total Time Today was 37 minutes in the following activities: Preparing to see th e patient, Performing a medically appropriate examination and/or evaluation, Cou nseling and educating the patient/family/caregiver, Referring and communication with other health live in caregiver (when not separately reported), Documenting clinical information in the electronic or other health record and Care coordina tion (not separately reported); care collaboration with Dr. Mandujano, as well as Melva Negrete, PT, and admissions coordinators, PM&R ING WORKER * Bart Mandujano, DO - 08/21/2022 9:33 AM CST General Progress Note Name: Derek Castro Jr. : 1945 Age: 77 y.o. Admission Date: 08/09/2022 LOS: 12 days Date of Service: 08/21/2022 Assessment/Plan: Principal Problem: Acute ischemic left MCA stroke (HCC) Active Problems: CAD (coronary artery disease) Stage 3b chronic kidney disease (HCC) Hyperlipidemia Primary hypertension Hypothyroidism Seizure disorder (HCC) History of multiple strokes Global aphasia Acute right hemiparesis (HCC) Derek Castro is a 77 yo male with a PMHx of HTN/HLD,CAD s/pCABG x5 in 2009, RLE DVT,CKD stage 3, seizures,multiple ischemic strokes(2019,May 2022, Jul 2022) with residual LUE ataxia, hypothyroidism who presented to an OSH ([facility]) on 08/09 for right sided weakness and aphasia. CT/CTA showed a left M2 occlusion. He was not a TNK candidate due to recent stroke, so he wastrans ferred [facility] for further management. He is now s/p thrombectomy and was admit earline to the [facility] post-op. Patient transferred to the IM service on 08/13. Patient h as ongoing severe dysphagia and aphasia. Plan for repeat video swallow Saturday mo rning and peg tube placement that afternoon if he fails. Left M2 occlusions/p IRw/ aTICI3 Basal ganglia infarct Chronicvertebral artery occlusion Severe dysphagia and aphasia Hx of multiple ischemic strokes(2019, R MCA 05/2022, L NILA 07/2022) Seizures -Presented for sudden onset right sided weakness and aphasia, L gaze deviation -OSHCT head:L frontal subacute infarct and R fronto parietal chronic infar ct -OSHCTA:Left M2 MCA, distal reconstitution.Chronicocclusion of the cer vical right vertebral artery - MRI head 08/09: Acute moderate sized left MCA territory infarct with mild cortic al petechial type hemorrhage. No midline shift or herniation. Chronic right NILA and MCA territory infarcts, chronic left parietal lobe infarct, and small bilate ral cerebellar infarcts and left caudate head lacunar type infarct - MRA head 08/09: Interval reconstituted flow within previously occluded left M2 b ranch. No remaining large vessel occlusion is identified.Irregularity within t he left carotid siphon with at least mild associated stenosis, likely atheroscle rotic - CT head 08/10: EvolvingLMCA territory infarct, minimal petechial type hemor rhage.Chronic right NILA/MCA territory infarcts, chronic left parietal lobe inf arct, chronic small bilateral cerebellar infarcts, and chronic left caudate head lacunar-type infarcts. Chronic microvascular ischemic changes - CT head 08/11:Evolving L MCA territory infarct with slight increase in mass e ffect - TTE 08/10: LVF normal, EF 60%. Technically limited study, cannot r/o small righ t to left shunting - KASSI 08/15: No evidence of interatrial shunting by color Doppler or agitated seferino ine contrast studies. No evidence of intracardiac thrombus, vegetation, or mass. Normal left ventricular size and systolic function. Estimated ejection fraction of 65%. No segmental wall motion abnormalities. Probably normal right ventric ular size and contractility. Normal biatrial size. No hemodynamically significan t valvular abnormalities. No pericardial effusion - A1c 5.8%, LDL 106, on a statin ASSEMBLY PERSON - Etiology likely 2/ embolic source vs. hypercoagulable state - Arterial hypercoaguable workup: Cardiolipin antibodies negative, Beta 2 GP IgM /IgG negative, Hex lupus AC pending - PET 08/15: No discrete hypermetabolic mass or metastatic disease - Records requested from outpatient abseiling instructor to indicate the reasoning for o ngoing DAPT. Last visit 03/2022. No clear indication noted Plan: > Started on Eliquis per neurology recommendations > Cont aspirin, atorvastatin, Keppra > Discontinuing plavix and cont single agent antiplatelet therapy with ASA and AC per neuro recs > Rehab medicine consulted - PT/OT recommending inpatient care; rehab medicine to reassess > Repeat video swallow 08/20 did not go well thus PEG placed on 08/20 > 30 day cardiac event monitoror ILR at discharge, ordered HTN HLD CAD s/p CABG x5(2009) - Echo 08/10 with EF 60%, no WMA or ventricle dysfunction - Lipid panel: LDL 106, HDL 29 - Troponin, BNPWNL -SBP goal:< 160per neuro Plan: > Cont amlodipine and statin CKD stage 3 - BaselineCr~1.8-2 - Creat stable near baseline Fever - resolved -08/10febrileupto 38.4 -BCs: NGTD -MRSA neg, CXR without consolidation, Procal 0.11 -Sputum culture with normal oropharyngeal hood -UA 2+ leuks, 20-50 WBCs, culture NGTD -Vanc/zosyninitially started and narrowed torocephin for possible UTI -s/p rocephin 08/11-08/13 - No further fever or chills Hypothyroidism > Cont ASSEMBLY PERSON levothyroxine Rash - Dry, red macular rash noted to entire back Plan: > Cont Emollient cream Pulmonary nodules - Incidental finding -Multiple subcentimeter pulmonary nodules, indeterminant on initial examinatio n. No dominant pulmonary mass Plan: > Follow-up CT chest in 3 months recommended to evaluate for stability Concern for hypopharyngeal mass - ENT consulted - CT neck reviewed without evidence of mass Acute urinary retention - Likely neurogenic due to stroke - Requiring freq SCs. [place] placed 08/13 Plan: > Cont doxazosin 1mg daily (unable to use Flomax due to [place]) > Voiding trial today Agitation - Noted to have increased delirium and agitation at night - Required PO Seroquel and mitts on 08/15 Plan: > Melatonin 5mg QHS, trazodone 25mg QHS PRN IVF: none Nutrition: TFs VTE prophylaxis: subcutaneous heparin Code Status: Full Code Disposition: Admit to medicine for further evaluation and management of hernando dominguez milka Mandujano, DO Internal Medicine Med Private P Subjective Derek Castro Jr. is a 77 y.o. male. Patient did about the same as yesterday. No issues overnight. Had PEG tube placed yesterday and currently tolerating tube feeds. Continues to have severe aphasia. ROS: Unable to obtain due to severe aphasia and mentation Medications Scheduled Meds:amLODIPine (NORVASC) tablet 10 mg, 10 mg, Per NG tube, QDAY apixaban (ELIQUIS) tablet 5 mg, 5 mg, Per NG tube, BID aspirin chewable tablet 81 mg, 81 mg, Per NG tube, QDAY atorvastatin (LIPITOR) tablet 80 mg, 80 mg, Per NG tube, QDAY chlorhexidine gluconate (PERIDEX) 0.12 % solution 15 mL, 15 mL, Swish & Spit, BID(8-20) senna (SENOKOT) oral syrup 8.8 mg, 8.8 mg, Per NG tube, BID And docusate sodium (COLACE) oral solution 50 mg, 50 mg, Per NG tube, BID doxazosin (CARDURA) tablet 1 mg, 1 mg, Per NG tube, QDAY erythromycin (ROMYCIN) ophthalmic ointment 0.5 inch, 0.5 inch, Both Eyes, TID levETIRAcetam (KEPPRA) oral solution 500 mg, 500 mg, Per NG tube, BID levothyroxine (SYNTHROID) tablet 125 mcg, 125 mcg, Per NG tube, QDAY() melatonin tablet 5 mg, 5 mg, Per NG tube, QHS midazolam (VERSED) injection 1 mg, 1 mg, Intravenous, ONCE milk of magnesium oral suspension 30 mL, 30 mL, Per NG tube, QDAY sodium chloride 0.9 % infusion, 1,000 mL, Intravenous, ONCE Continuous Infusions: Diet Enteral Feeding Standard Infusion 0 each (08/18/22 0610) PRN and Respiratory Meds:acetaminophen Q4H PRN, emollient PRN, flumazeniL PRN, l abetalol (NORMODYNE; TRANDATE) injection Q6H PRN, nalOXone PRN, pancrelipase 20, 880 Units/sodium bicarbonate 650 mg (KU CLOG DESTROYER) PRN (News Producer from Rx), t raZODone QHS PRN Objective: Vital Signs: Last Filed Vital Signs: 24 Gladis r Range BP: 150/86 (08/21 799) Temp: 37.1 C (98.7 F) (08/21 799) Pulse: 78 (08/21 799) Respirations: 18 PER MINUTE (08/21 799) SpO2: 92 % (08/21 799) O2 Device: None (Room air) (08/21 799) O2 Liter Flow: 2 Lpm (08/20 1730) SpO2 Pulse: 77 (08/20 1745) BP: (108-154)/(49-92) Temp: [36.4 C (97.5 F)-37.1 C (98.7 F)] Pulse: [65-84] Respirations: [11 PER MINUTE-20 PER MINUTE] SpO2: [89 %-96 %] O2 Device: None (Room air) O2 Liter Flow: 2 Lpm PAINAD Total Score: 0 (08/20/222128) Vitals: 08/10/22 0700 08/15/22 1010 08/15/22 1325 Weight: 99.7 kg (219 lb 12.8 oz) 96.6 kg (212 lb 15.4 oz) 96.2 kg (212 lb) Intake/Output Summary: (Last 24 hours) Intake/Output Summary (Last 24 hours) at 08/21/2022 0933 Last data filed at 08/21/2022 0435 Gross per 24 hour Intake 250 ml Output 745 ml Net -495 ml Stool Occurrence: 1 Physical Exam Gen: Appears comfortable HEENT: AT/NC. Corpak in place. Conjunctival injection with drainage Cardiovascular: Regular rhythm, rate in the 80s, normal s1s2, no m/r/g Respiratory: Normal respiratory effort, coarse breath sounds bilaterally, no whe ezing or rhonchi Gastrointestinal: Non-distended soft abdomen, bowel sounds present, no peritonea l signs Musculoskeletal: Spontaneously moves all extremities Extremities: No edema Skin: Dry Neurological: Alert. Severe aphasia, grossly non-focal Psychiatry: Difficult to assess Lab Review Pertinent labs reviewed Point of Care Testing (Last 24 hours) POC Glucose (Download): 98 (08/20/22 6741) Radiology and other Diagnostics Review: Pertinent radiology reviewed. Bart Mandujano DO ING WORKER * Suzy Denny APRN-CONFERENCE CONCIERGE - 08/21/2022 9:11 AM CST Interventional Radiology Post-G-tube Follow Up Note Tube/site assessment: C/D/I Plan: - G-tube is ok for use as directed at this time. - No follow up is needed with IR. General care recs below: 1. Please keep a very strict NPO for the first 12 hours after placement with the tube connected to dependent drainage. After 12 hours the drainage bag can be re moved and clear liquid challenges (20-50ml) can begin by mouth and/or through th e tube. If tolerating, a clear liquid diet can be ordered and oral medications a dministered. At 24 hours after placement the tube is OK for normal use. 2. Flush g-tube with 50ml of water after each feeding. 3. Initial dressing can be removed in 48 hours at which time showering may be re sumed. 4. T-fasteners (the three buttons below the disc) should fall off on their own i n 2-4 weeks. If they fall off outside of that window of time, please page the IR resident behavioral modification assistant at [phone]. 5. If NPO and using the tube for draining purposes only, or not using the tube f or stretches of time, flush tube twice daily to maintain patency. 6. We recommend cleaning the skin with soap and water only, allowing it to dry c ompletely, and ensuring that the balloon and disc are both taut to the skin so t hat the tube cannot freely move in and out of the tract. If breakdown is noted, barrier creams should only be applied after skin has been completely cleaned and completely dried. We do not recommend dressings under the disc as this only ser ves to force the disc further from the abdominal wall, creating a tract for easi er leakage to occur. IR will sign off at this time. Re-consult as needed. DANY Terry Pgr [phone] Thank you for allowing us to participate in the care of this patient. Please charlie l with questions or concerns. If calling after hours or over the weekend please page the IR resident behavioral modification assistant @ . ING WORKER * Hellen Barnes RN - 08/20/2022 3:38 PM CST Anesthesia is present for this procedure. They are responsible for airway, VS, and medication administration and treatment. Anesthesia H&P is in and patient has been assessed prior to procedure. See anesthesia computer documentation. ING WORKER * Ranjit Spears PT - 08/20/2022 1:31 PM CST PHYSICAL THERAPY NOTE Name: Derek Castro Jr. : 1945 Age: 77 y.o. Admission Date: 08/09/2022 LOS: 11 days Date of Service: 08/20/2022 PT attempted to see pt, coordination with assist x2, upon arrival pt off unit fo r procedure, PT/OT to follow up for treatment as appropriate. Therapist: Ranjit Spears PT DPT [id number] Date: 08/20/2022 ING WORKER * Rocío Joe - 08/20/2022 1:29 PM CST Field Sales Executive Note: Admit Date: 08/09/2022 Patient was being taken to procedure when I attempted to visit. No family presen t at this time. The spiritual care team is available as needed, 21/01, through the [employer] ([phone]). For a response within 24 hours, please submit an order in O2 fo r a nicu rn consult. Date/Time: User: 08/20/2022 1:29 PM Rocío Joe PCU 1 PCU ING WORKER * Bart Mandujano, DO - 08/20/2022 9:33 AM CST General Progress Note Name: Derek Castro Jr. : 1945 Age: 77 y.o. Admission Date: 08/09/2022 LOS: 11 days Date of Service: 08/20/2022 Assessment/Plan: Principal Problem: Acute ischemic left MCA stroke (HCC) Active Problems: CAD (coronary artery disease) Stage 3b chronic kidney disease (HCC) Hyperlipidemia Primary hypertension Hypothyroidism Seizure disorder (HCC) History of multiple strokes Global aphasia Acute right hemiparesis (HCC) Derek Castro is a 77 yo male with a PMHx of HTN/HLD,CAD s/pCABG x5 in 2009, RLE DVT,CKD stage 3, seizures,multiple ischemic strokes(2019,May 2022, Jul 2022) with residual LUE ataxia, hypothyroidism who presented to an OSH ([facility]) on 08/09 for right sided weakness and aphasia. CT/CTA showed a left M2 occlusion. He was not a TNK candidate due to recent stroke, so he wastrans ferred to [facility] for further management. He is now s/p thrombectomy and was admit earline to the [facility] post-op. Patient transferred to the IM service on 08/13. Patient h as ongoing severe dysphagia and aphasia. Plan for repeat video swallow Saturday mo rning and peg tube placement that afternoon if he fails. Left M2 occlusions/p IRw/ aTICI3 Basal ganglia infarct Chronicvertebral artery occlusion Severe dysphagia and aphasia Hx of multiple ischemic strokes(2019, R MCA 05/2022, L NILA 07/2022) Seizures -Presented for sudden onset right sided weakness and aphasia, L gaze deviation -OSHCT head:L frontal subacute infarct and R fronto parietal chronic infar ct -OSHCTA:Left M2 MCA, distal reconstitution.Chronicocclusion of the cer vical right vertebral artery - MRI head 08/09: Acute moderate sized left MCA territory infarct with mild cortic al petechial type hemorrhage. No midline shift or herniation. Chronic right NILA and MCA territory infarcts, chronic left parietal lobe infarct, and small bilate ral cerebellar infarcts and left caudate head lacunar type infarct - MRA head 08/09: Interval reconstituted flow within previously occluded left M2 b ranch. No remaining large vessel occlusion is identified.Irregularity within t he left carotid siphon with at least mild associated stenosis, likely atheroscle rotic - CT head 08/10: EvolvingLMCA territory infarct, minimal petechial type hemor rhage.Chronic right NILA/MCA territory infarcts, chronic left parietal lobe inf arct, chronic small bilateral cerebellar infarcts, and chronic left caudate head lacunar-type infarcts. Chronic microvascular ischemic changes - CT head 08/11:Evolving L MCA territory infarct with slight increase in mass e ffect - TTE 08/10: LVF normal, EF 60%. Technically limited study, cannot r/o small righ t to left shunting - KASSI 08/15: No evidence of interatrial shunting by color Doppler or agitated seferino ine contrast studies. No evidence of intracardiac thrombus, vegetation, or mass. Normal left ventricular size and systolic function. Estimated ejection fraction of 65%. No segmental wall motion abnormalities. Probably normal right ventric ular size and contractility. Normal biatrial size. No hemodynamically significan t valvular abnormalities. 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 hypercoagulable state - Arterial hypercoaguable workup: Cardiolipin antibodies negative, Beta 2 GP IgM /IgG negative, Hex lupus AC pending - PET 08/15: No discrete hypermetabolic mass or metastatic disease - Records requested from outpatient abseiling instructor to indicate the reasoning for o ngoing DAPT. Last visit 03/2022. No clear indication noted Plan: > Plan for Eliquis 10-14 days following initial presentation > Cont aspirin, atorvastatin, Keppra > Anticipate discontinuing plavix and cont single agent antiplatelet therapy with ASA and AC per neuro's recs on 08/23 > Rehab medicine consulted - PT/OT recommending inpatient care > CLINICAL RESEARCH SPEC following - repeat video swallow 08/20 did not go well thus PEG will be placed > 's wishes are aggressive. States rehab is very important to the patient. Will defer palliative care consult for now > 30 day cardiac event monitoror ILR at discharge, ordered HTN HLD CAD s/p CABG x5(2009) - Echo 08/10 with EF 60%, no WMA or ventricle dysfunction - Lipid panel: LDL 106, HDL 29 - Troponin, BNPWNL -SBP goal:< 160per neuro Plan: > Cont amlodipine and statin CKD stage 3 - BaselineCr~1.8-2 - Creat stable near baseline Fever - resolved -08/10febrileupto 38.4 -BCs: NGTD -MRSA neg, CXR without consolidation, Procal 0.11 -Sputum culture with normal oropharyngeal hood -UA 2+ leuks, 20-50 WBCs, culture NGTD -Vanc/zosyninitially started and narrowed torocephin for possible UTI -s/p rocephin 08/11-08/13 - No further fever or chills Hypothyroidism > Cont ASSEMBLY PERSON levothyroxine Rash - Dry, red macular rash noted to entire back Plan: > Cont Emollient cream Pulmonary nodules - Incidental finding -Multiple subcentimeter pulmonary nodules, indeterminant on initial examinatio n. No dominant pulmonary mass Plan: > Follow-up CT chest in 3 months recommended to evaluate for stability Concern for hypopharyngeal mass - ENT consulted - CT neck reviewed without evidence of mass Acute urinary retention - Likely neurogenic due to stroke - Requiring freq SCs. Lake placed 08/13 Plan: > Cont doxazosin 1mg daily (unable to use Flomax due to Corpak) > Repeat voiding trial this week Agitation - Noted to have increased delirium and agitation at night - Required PO Seroquel and mitts on 08/15 Plan: > Melatonin 5mg QHS, trazodone 25mg QHS PRN IVF: none Nutrition: TFs VTE prophylaxis: subcutaneous heparin Code Status: Full Code Disposition: Admit to medicine for further evaluation and management of principa l problem Bart Mandujano, DO Internal Medicine Med Private P Subjective Derek Castro Jr. is a 77 y.o. male. Seems to be doing well this AM. Did not do w ell with video swallow study thus will get PEG today. Has been pulling more at t ubes thus soft mittens placed. ROS: Unable to obtain due to severe aphasia and mentation Medications Scheduled Meds:amLODIPine (NORVASC) tablet 10 mg, 10 mg, Per NG tube, QDAY aspirin chewable tablet 81 mg, 81 mg, Per NG tube, QDAY atorvastatin (LIPITOR) tablet 80 mg, 80 mg, Per NG tube, QDAY chlorhexidine gluconate (PERIDEX) 0.12 % solution 15 mL, 15 mL, Swish & Spit, BID(8-20) senna (SENOKOT) oral syrup 8.8 mg, 8.8 mg, Per NG tube, BID And docusate sodium (COLACE) oral solution 50 mg, 50 mg, Per NG tube, BID doxazosin (CARDURA) tablet 1 mg, 1 mg, Per NG tube, QDAY erythromycin (ROMYCIN) ophthalmic ointment 0.5 inch, 0.5 inch, Both Eyes, TID heparin (porcine) PF syringe 5,000 Units, 5,000 Units, Subcutaneous, Q8H levETIRAcetam (KEPPRA) oral solution 500 mg, 500 mg, Per NG tube, BID levothyroxine (SYNTHROID) tablet 112 mcg, 112 mcg, Per NG tube, QDAY(07) melatonin tablet 5 mg, 5 mg, Per NG tube, QHS milk of magnesium oral suspension 30 mL, 30 mL, Per NG tube, QDAY Continuous Infusions: Diet Enteral Feeding Standard Infusion 0 each (08/18/22 0610) PRN and Respiratory Meds:acetaminophen Q4H PRN, emollient PRN, labetalol (NORMOD YNE; TRANDATE) injection Q6H PRN, pancrelipase 20,880 Units/sodium bicarbonate 6 50 mg (KU CLOG DESTROYER) PRN (News Producer from Rx), traZODone QHS PRN Objective: Vital Signs: Last Filed Vital Signs: 24 Gladis r Range BP: 144/80 (08/20 737) Temp: 36.8 C (98.2 F) (08/20 737) Pulse: 70 (08/20 737) Respirations: 18 PER MINUTE (08/20 737) SpO2: 95 % (08/20 737) O2 Device: None (Room air) (08/20 737) BP: (127-152)/(68-81) Temp: [36.4 C (97.6 F)-36.9 C (98.4 F)] Pulse: [68-71] Respirations: [16 PER MINUTE-19 PER MINUTE] SpO2: [90 %-98 %] O2 Device: None (Room air) PAINAD Total Score: 0 (08/19/222106) Vitals: 08/10/22 0700 08/15/22 1010 08/15/22 1325 Weight: 99.7 kg (219 lb 12.8 oz) 96.6 kg (212 lb 15.4 oz) 96.2 kg (212 lb) Intake/Output Summary: (Last 24 hours) Intake/Output Summary (Last 24 hours) at 08/20/2022 0933 Last data filed at 08/20/2022 0333 Gross per 24 hour Intake 689 ml Output 600 ml Net 89 ml Stool Occurrence: 1 Physical Exam Gen: Appears comfortable HEENT: AT/NC. Corpak in place. Conjunctival injection with drainage Cardiovascular: Regular rhythm, rate in the 70s, normal s1s2, no m/r/g Respiratory: Normal respiratory effort, coarse breath sounds bilaterally, no whe ezing or rhonchi Gastrointestinal: Non-distended soft abdomen, bowel sounds present, no peritonea l signs Musculoskeletal: Spontaneously moves all extremities Extremities: No edema Skin: Dry Neurological: Alert. Severe aphasia, grossly non-focal Psychiatry: Difficult to assess Lab Review Pertinent labs reviewed Point of Care Testing (Last 24 hours) Glucose: (!) 122 (08/20/22 0607) Radiology and other Diagnostics Review: Pertinent radiology reviewed. Bart Mandujano DO ING WORKER * Concepción Rawls OT - 08/20/2022 8:48 AM CST OCCUPATIONAL THERAPY NOTE Name: Derek Castro Jr. : 1945 Age: 77 y.o. Admission Date: 08/09/2022 LOS: 11 days Date of Service: 08/20/2022 Pt not available for scheduled therapy time. Off floor for procedure. Will dustin nue to follow. Therapist: Concepción Rawls OT Date: 08/20/2022 ING WORKER * Bart Mandujano DO - 08/19/2022 9:34 AM CST General Progress Note Name: Derek Castro Jr. : 1945 Age: 77 y.o. Admission Date: 08/09/2022 LOS: 10 days Date of Service: 08/19/2022 Assessment/Plan: Principal Problem: Acute ischemic left MCA stroke (HCC) Active Problems: CAD (coronary artery disease) Stage 3b chronic kidney disease (HCC) Hyperlipidemia Primary hypertension Hypothyroidism Seizure disorder (HCC) History of multiple strokes Global aphasia Acute right hemiparesis (HCC) Derek Castro is a 77 yo male with a PMHx of HTN/HLD,CAD s/pCABG x5 in 2009, RLE DVT,CKD stage 3, seizures,multiple ischemic strokes(2019,May 2022, Jul 2022) with residual LUE ataxia, hypothyroidism who presented to an OSH ([facility]) on 08/09 for right sided weakness and aphasia. CT/CTA showed a left M2 occlusion. He was not a TNK candidate due to recent stroke, so he wastrans ferred to [facility] for further management. He is now s/p thrombectomy and was admit earline to the [facility] post-op. Patient transferred to the IM service on 08/13. Patient h as ongoing severe dysphagia and aphasia. Plan for repeat video swallow Saturday mo rning and peg tube placement that afternoon if he fails. Left M2 occlusions/p IRw/ aTICI3 Basal ganglia infarct Chronicvertebral artery occlusion Severe dysphagia and aphasia Hx of multiple ischemic strokes(2019, R MCA 05/2022, L NILA 07/2022) Seizures -Presented for sudden onset right sided weakness and aphasia, L gaze deviation -OSHCT head:L frontal subacute infarct and R fronto parietal chronic infar ct -OSHCTA:Left M2 MCA, distal reconstitution.Chronicocclusion of the cer vical right vertebral artery - MRI head 08/09: Acute moderate sized left MCA territory infarct with mild cortic al petechial type hemorrhage. No midline shift or herniation. Chronic right NILA and MCA territory infarcts, chronic left parietal lobe infarct, and small bilate ral cerebellar infarcts and left caudate head lacunar type infarct - MRA head 08/09: Interval reconstituted flow within previously occluded left M2 b ranch. No remaining large vessel occlusion is identified.Irregularity within t he left carotid siphon with at least mild associated stenosis, likely atheroscle rotic - CT head 08/10: EvolvingLMCA territory infarct, minimal petechial type hemor rhage.Chronic right NILA/MCA territory infarcts, chronic left parietal lobe inf arct, chronic small bilateral cerebellar infarcts, and chronic left caudate head lacunar-type infarcts. Chronic microvascular ischemic changes - CT head 08/11:Evolving L MCA territory infarct with slight increase in mass e ffect - TTE 08/10: LVF normal, EF 60%. Technically limited study, cannot r/o small righ t to left shunting - KASSI 08/15: No evidence of interatrial shunting by color Doppler or agitated seferino ine contrast studies. No evidence of intracardiac thrombus, vegetation, or mass. Normal left ventricular size and systolic function. Estimated ejection fraction of 65%. No segmental wall motion abnormalities. Probably normal right ventric ular size and contractility. Normal biatrial size. No hemodynamically significan t valvular abnormalities. 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 hypercoagulable state - Arterial hypercoaguable workup: Cardiolipin antibodies negative, Beta 2 GP IgM /IgG negative, Hex lupus AC pending - PET 08/15: No discrete hypermetabolic mass or metastatic disease - Records requested from outpatient abseiling instructor to indicate the reasoning for o ngoing DAPT. Last visit 03/2022. No clear indication noted Plan: > Plan for Eliquis 10-14 days following initial presentation > Cont aspirin, atorvastatin, Keppra. Holding ASSEMBLY PERSON plavix for peg tube placement (08/15 - ) > Anticipate discontinuing plavix and cont single agent antiplatelet therapy with ASA and AC per neuro's recs on 08/23 > Rehab medicine consulted - PT/OT recommending inpatient care > CLINICAL RESEARCH SPEC following - plan for repeat video swallow Saturday morning and peg tube placement that afternoon if he fails. Please see installation manager's note from 08/17 for TFs recs following peg tube placement > 's wishes are aggressive. States rehab is very important to the patient. Will defer palliative care consult for now > 30 day cardiac event monitoror ILR at discharge, ordered placed HTN HLD CAD s/p CABG x5(2009) - Echo 08/10 with EF 60%, no WMA or ventricle dysfunction - Lipid panel: LDL 106, HDL 29 - Troponin, BNPWNL -SBP goal:< 160per neuro Plan: > Cont amlodipine and statin CKD stage 3 - BaselineCr~1.8-2 - Creat stable near baseline Fever - resolved -08/10febrileupto 38.4 -BCs: NGTD -MRSA neg, CXR without consolidation, Procal 0.11 -Sputum culture with normal oropharyngeal hood -UA 2+ leuks, 20-50 WBCs, culture NGTD -Vanc/zosyninitially started and narrowed torocephin for possible UTI -s/p rocephin 08/11-08/13 - No further fever or chills Hypothyroidism > Cont ASSEMBLY PERSON levothyroxine Rash - Dry, red macular rash noted to entire back Plan: > Cont Emollient cream Pulmonary nodules - Incidental finding -Multiple subcentimeter pulmonary nodules, indeterminant on initial examinatio n. No dominant pulmonary mass Plan: > Follow-up CT chest in 3 months recommended to evaluate for stability Concern for hypopharyngeal mass - ENT consulted - CT neck reviewed without evidence of mass Acute urinary retention - Likely neurogenic due to stroke - Requiring freq SCs. Lake placed 08/13 Plan: > Cont doxazosin 1mg daily (unable to use Flomax due to Corpak) > Repeat voiding trial next week Agitation - Noted to have increased delirium and agitation at night - Required PO Seroquel and mitts on 08/15 Plan: > Melatonin 5mg QHS, trazodone 25mg QHS PRN IVF: none Nutrition: TFs VTE prophylaxis: subcutaneous heparin Code Status: Full Code Disposition: Admit to medicine for further evaluation and management of principa l problem Bart Mandujano, DO Internal Medicine Med Private P Subjective Derek Castro Jr. is a 77 y.o. male. Patient looks comfortable in bed. Severe aph magnus thus unable to communicate. Able to follow simple commands. No issues overn ight. Tolerating tube feeds. ROS: Unable to obtain due to severe aphasia and mentation Medications Scheduled Meds:amLODIPine (NORVASC) tablet 10 mg, 10 mg, Per NG tube, QDAY aspirin chewable tablet 81 mg, 81 mg, Per NG tube, QDAY atorvastatin (LIPITOR) tablet 80 mg, 80 mg, Per NG tube, QDAY chlorhexidine gluconate (PERIDEX) 0.12 % solution 15 mL, 15 mL, Swish & Spit, BID(8-20) senna (SENOKOT) oral syrup 8.8 mg, 8.8 mg, Per NG tube, BID And docusate sodium (COLACE) oral solution 50 mg, 50 mg, Per NG tube, BID doxazosin (CARDURA) tablet 1 mg, 1 mg, Per NG tube, QDAY heparin (porcine) PF syringe 5,000 Units, 5,000 Units, Subcutaneous, Q8H levETIRAcetam (KEPPRA) oral solution 500 mg, 500 mg, Per NG tube, BID levothyroxine (SYNTHROID) tablet 112 mcg, 112 mcg, Per NG tube, QDAY(07) melatonin tablet 5 mg, 5 mg, Per NG tube, QHS milk of magnesium oral suspension 30 mL, 30 mL, Per NG tube, QDAY Continuous Infusions: Diet Enteral Feeding Standard Infusion 0 each (08/18/22 0610) PRN and Respiratory Meds:acetaminophen Q4H PRN, emollient PRN, labetalol (NORMOD YNE; TRANDATE) injection Q6H PRN, pancrelipase 20,880 Units/sodium bicarbonate 6 50 mg (KU CLOG DESTROYER) PRN (News Producer from Rx), traZODone QHS PRN Objective: Vital Signs: Last Filed Vital Signs: 24 Gladis r Range BP: 156/74 (08/19 832) Temp: 36.9 C (98.5 F) (08/19 832) Pulse: 67 (08/19 832) Respirations: 17 PER MINUTE (08/19 832) SpO2: 92 % (08/19 832) O2 Device: None (Room air) (08/19 832) BP: (138-162)/(56-83) Temp: [36.7 C (98.1 F)-37.2 C (98.9 F)] Pulse: [67-84] Respirations: [16 PER MINUTE-18 PER MINUTE] SpO2: [92 %-96 %] O2 Device: None (Room air) PAINAD Total Score: 0 (08/18/222031) Vitals: 08/10/22 0700 08/15/22 1010 08/15/22 1325 Weight: 99.7 kg (219 lb 12.8 oz) 96.6 kg (212 lb 15.4 oz) 96.2 kg (212 lb) Intake/Output Summary: (Last 24 hours) Intake/Output Summary (Last 24 hours) at 08/19/2022 09 Last data filed at 08/19/2022 0834 Gross per 24 hour Intake 2017 ml Output 1175 ml Net 842 ml Stool Occurrence: 1 Physical Exam Gen: Appears comfortable HEENT: AT/NC. Corpak in place Cardiovascular: Regular rhythm, rate in the 60s, normal s1s2, no m/r/g Respiratory: Normal respiratory effort, coarse breath sounds bilaterally, no whe ezing or rhonchi Gastrointestinal: Non-distended soft abdomen, bowel sounds present, no peritonea l signs Musculoskeletal: Spontaneously moves all extremities Extremities: No edema Skin: Dry Neurological: A&O. Severe aphasia, grossly non-focal Psychiatry: Difficult to assess Lab Review Pertinent labs reviewed Point of Care Testing (Last 24 hours) Radiology and other Diagnostics Review: Pertinent radiology reviewed. Bart Mandujano DO ING WORKER * Bart Mandujano, DO - 08/18/2022 12:06 PM CST General Progress Note Name: Derek Castro Jr. : 1945 Age: 77 y.o. Admission Date: 08/09/2022 LOS: 9 days Date of Service: 08/18/2022 Assessment/Plan: Principal Problem: Acute ischemic left MCA stroke (HCC) Active Problems: CAD (coronary artery disease) Stage 3b chronic kidney disease (HCC) Hyperlipidemia Primary hypertension Hypothyroidism Seizure disorder (HCC) History of multiple strokes Global aphasia Acute right hemiparesis (HCC) Derek Castro is a 77 yo male with a PMHx of HTN/HLD,CAD s/pCABG x5 in 2009, RLE DVT,CKD stage 3, seizures,multiple ischemic strokes(2019,May 2022, Jul 2022) with residual LUE ataxia, hypothyroidism who presented to an OSH ([facility]) on 08/09 for right sided weakness and aphasia. CT/CTA showed a left M2 occlusion. He was not a TNK candidate due to recent stroke, so he wastrans ferred to [facility] for further management. He is now s/p thrombectomy and was admit earline to the [facility] post-op. Patient transferred to the IM service on 08/13. Patient h as ongoing severe dysphagia and aphasia. Plan for repeat video swallow Saturday mo rning and peg tube placement that afternoon if he fails. Left M2 occlusions/p IRw/ aTICI3 Basal ganglia infarct Chronicvertebral artery occlusion Severe dysphagia and aphasia Hx of multiple ischemic strokes(2019, R MCA 05/2022, L NILA 07/2022) Seizures -Presented for sudden onset right sided weakness and aphasia, L gaze deviation -OSHCT head:L frontal subacute infarct and R fronto parietal chronic infar ct -OSHCTA:Left M2 MCA, distal reconstitution.Chronicocclusion of the cer vical right vertebral artery - MRI head 08/09: Acute moderate sized left MCA territory infarct with mild cortic al petechial type hemorrhage. No midline shift or herniation. Chronic right NILA and MCA territory infarcts, chronic left parietal lobe infarct, and small bilate ral cerebellar infarcts and left caudate head lacunar type infarct - MRA head 08/09: Interval reconstituted flow within previously occluded left M2 b ranch. No remaining large vessel occlusion is identified.Irregularity within t he left carotid siphon with at least mild associated stenosis, likely atheroscle rotic - CT head 08/10: EvolvingLMCA territory infarct, minimal petechial type hemor rhage.Chronic right NILA/MCA territory infarcts, chronic left parietal lobe inf arct, chronic small bilateral cerebellar infarcts, and chronic left caudate head lacunar-type infarcts. Chronic microvascular ischemic changes - CT head 08/11:Evolving L MCA territory infarct with slight increase in mass e ffect - TTE 08/10: LVF normal, EF 60%. Technically limited study, cannot r/o small righ t to left shunting - KASSI 08/15: No evidence of interatrial shunting by color Doppler or agitated seferino ine contrast studies. No evidence of intracardiac thrombus, vegetation, or mass. Normal left ventricular size and systolic function. Estimated ejection fraction of 65%. No segmental wall motion abnormalities. Probably normal right ventric ular size and contractility. Normal biatrial size. No hemodynamically significan t valvular abnormalities. 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 hypercoagulable state - Arterial hypercoaguable workup: Cardiolipin antibodies negative, Beta 2 GP IgM /IgG negative, Hex lupus AC pending - PET 08/15: No discrete hypermetabolic mass or metastatic disease - Records requested from outpatient abseiling instructor to indicate the reasoning for o ngoing DAPT. Last visit 03/2022. No clear indication noted Plan: > Plan for Eliquis 10-14 days following initial presentation > Cont aspirin, atorvastatin, Keppra. Holding ASSEMBLY PERSON plavix for peg tube placement (08/15 - ) > Anticipate discontinuing plavix and cont single agent antiplatelet therapy with ASA and AC per neuro's recs on 08/23 > Rehab medicine consulted - PT/OT recommending inpatient care > CLINICAL RESEARCH SPEC following - plan for repeat video swallow Saturday morning and peg tube placement that afternoon if he fails. Please see installation manager's note from 08/17 for TFs recs following peg tube placement > 's wishes are aggressive. States rehab is very important to the patient. Will defer palliative care consult for now > 30 day cardiac event monitoror ILR at discharge HTN HLD CAD s/p CABG x5(2009) - Echo 08/10 with EF 60%, no WMA or ventricle dysfunction - Lipid panel: LDL 106, HDL 29 - Troponin, BNPWNL -SBP goal:< 160per neuro Plan: > Cont amlodipine and statin CKD stage 3 - BaselineCr~1.8-2 - Creat stable near baseline Fever - resolved -08/10febrileupto 38.4 -BCs: NGTD -MRSA neg, CXR without consolidation, Procal 0.11 -Sputum culture with normal oropharyngeal hood -UA 2+ leuks, 20-50 WBCs, culture NGTD -Vanc/zosyninitially started and narrowed torocephin for possible UTI -s/p rocephin 08/11-08/13 - No further fever or chills Hypothyroidism > Cont ASSEMBLY PERSON levothyroxine Rash - Dry, red macular rash noted to entire back Plan: > Cont Emollient cream Pulmonary nodules - Incidental finding -Multiple subcentimeter pulmonary nodules, indeterminant on initial examinatio n. No dominant pulmonary mass Plan: > Follow-up CT chest in 3 months recommended to evaluate for stability Concern for hypopharyngeal mass - ENT consulted - CT neck reviewed without evidence of mass Acute urinary retention - Likely neurogenic due to stroke - Requiring freq SCs. Lake placed 08/13 Plan: > Cont doxazosin 1mg daily (unable to use Flomax due to Corpak) > Repeat voiding trial next week Agitation - Noted to have increased delirium and agitation at night - Required PO Seroquel and mitts on 08/15 Plan: > Melatonin 5mg QHS, trazodone 25mg QHS PRN IVF: none Nutrition: TFs VTE prophylaxis: subcutaneous heparin Code Status: Full Code Disposition: Admit to medicine for further evaluation and management of principa l problem Bart Mandujano, DO Internal Medicine Med Private P Subjective Derek Castro Jr. is a 77 y.o. male. Patient with severe aphasia and tries to com municate however unable to understand. Able to follow simple commands. No issu es overnight. ROS: Unable to obtain due to severe aphasia and mentation Medications Scheduled Meds:amLODIPine (NORVASC) tablet 10 mg, 10 mg, Per NG tube, QDAY aspirin EC tablet 81 mg, 81 mg, Oral, QDAY atorvastatin (LIPITOR) tablet 80 mg, 80 mg, Per NG tube, QDAY chlorhexidine gluconate (PERIDEX) 0.12 % solution 15 mL, 15 mL, Swish & Spit, BID(8-20) senna (SENOKOT) oral syrup 8.8 mg, 8.8 mg, Per NG tube, BID And docusate sodium (COLACE) oral solution 50 mg, 50 mg, Oral, BID doxazosin (CARDURA) tablet 1 mg, 1 mg, Per NG tube, QDAY heparin (porcine) PF syringe 5,000 Units, 5,000 Units, Subcutaneous, Q8H levETIRAcetam (KEPPRA) oral solution 500 mg, 500 mg, Oral, BID levothyroxine (SYNTHROID) tablet 112 mcg, 112 mcg, Per NG tube, QDAY(07) melatonin tablet 5 mg, 5 mg, Oral, QHS milk of magnesium oral suspension 30 mL, 30 mL, Oral, QDAY Continuous Infusions: Diet Enteral Feeding Standard Infusion Stopped (08/18/22 0610) PRN and Respiratory Meds:acetaminophen Q4H PRN, emollient PRN, labetalol (NORMOD YNE; TRANDATE) injection Q6H PRN, pancrelipase 20,880 Units/sodium bicarbonate 6 50 mg (KU CLOG DESTROYER) PRN (News Producer from Rx), traZODone QHS PRN Objective: Vital Signs: Last Filed Vital Signs: 24 Gladis r Range BP: 148/56 (08/18 1055) Temp: 36.8 C (98.2 F) (08/18 1055) Pulse: 84 (08/18 1055) Respirations: 18 PER MINUTE (08/18 1055) SpO2: 95 % (08/18 1055) O2 Device: None (Room air) (08/18 1055) BP: (140-165)/(56-83) Temp: [36.4 C (97.5 F)-36.9 C (98.5 F)] Pulse: [70-84] Respirations: [18 PER MINUTE] SpO2: [92 %-100 %] O2 Device: None (Room air) PAINAD Total Score: 0 (08/18/22 0900) Vitals: 08/10/22 0700 08/15/22 1010 08/15/22 1325 Weight: 99.7 kg (219 lb 12.8 oz) 96.6 kg (212 lb 15.4 oz) 96.2 kg (212 lb) Intake/Output Summary: (Last 24 hours) Intake/Output Summary (Last 24 hours) at 08/18/2022 1207 Last data filed at 08/18/2022 1000 Gross per 24 hour Intake 1743 ml Output 1250 ml Net 493 ml Stool Occurrence: 1 Physical Exam Gen: Appears comfortable HEENT: AT/NC. Corpak in place Cardiovascular: Regular rhythm, rate in the 80s, normal s1s2, no m/r/g Respiratory: Normal respiratory effort, coarse breath sounds bilaterally, no whe ezing or rhonchi Gastrointestinal: Non-distended soft abdomen, bowel sounds present, no peritonea l signs Musculoskeletal: Spontaneously moves all extremities Extremities: No edema Skin: Dry Neurological: A&O. Severe aphasia, grossly non-focal Psychiatry: Difficult to assess Lab Review Pertinent labs reviewed Point of Care Testing (Last 24 hours) Glucose: (!) 124 (08/18/22 0644) Radiology and other Diagnostics Review: Pertinent radiology reviewed. Bart Mandujano DO ING WORKER * Ligia Phelps - 08/17/2022 11:55 AM CST SPEECH-LANGUAGE PATHOLOGY NO TREATMENT NOTE Discussed w/ primary team re: holding PEG placement until videoswallow study on Sunday 08/20, as anticipate pt's continuous improvement over the weekend. Team wi ll plan on PEG placement in the PM pending videoswallow results in the AM. Therapist: Ligia Phelps MA, CF-CLINICAL RESEARCH SPEC Voalte [id number] Date: 08/17/2022 ING WORKER * Mariana Waterman RD - 08/17/2022 11:25 AM CST CLINICAL NUTRITION Clinical Nutrition Follow-Up Assessment Name: Derek Castro Jr. : 1945 Age: 77 y.o. Admission Date: 08/09/2022 LOS: 8 days Date of Service: 08/17/2022 Recommendation: Once PEG tube placed, RD REC restart continuous feeds as follows: ? Isosource 1.5 at 65 mL/hr x 22 hours (2-hour hold for Synthroid). ? At goal provides 2145 kcal (100% needs), 97 g/protein (100% needs) and 1092 mL of free water. ? REC flush 200 mL water q4h. ? EN and all water flushes provide 2292 mL/water/day for 107% needs which is con sistent with water flushes of current tube feeding order. ? Fluids are ultimately deferred to primary team. If bolus tube feeds are desired, REC bolus 5.5 cartons if Isosource 1.5 anthony y. ? Bolus 1.5 cartons (375 mL) TID (02/10/16) and 1 carton (250 mL) once daily (20) . ? Would bolus cartons (125 mL) for first 2 feedings. If tolerated, bolus 1 c arton (250 mL) for next 2 feedings. If tolerated, increase to goal rate. ? At goal provides 2062 kcal (100% needs), 94 g/pro (100% needs) and 1050 mL of free water. ? REC flush 60 mL before and after each feeding and flush an additional 250 mL B ID for hydration but not at the same time as tube feeds to keep volume low. ? EN and all water flushes provide 2030 mL/water/day 99% needs). ? Fluids are ultimately deferred to primary team. RD will monitor for possible diet advancement/po intake and adjust tube feed ing if warranted. The nutrition-related order modifications are made in communication with the [facility] service, who remains responsible for the orders and overall care of the [facility] ient. Comments: RD following pt for EN management. Pt laying in bed at time of visit working wi th speech. Per speech eval, pt to remain NPO with REC for intermediate card tender EN. Pt is to have PEG placed 08/20. RD will continue to follow per protocol. Nutrition Assessment of Patient: Admit Weight: 97.4 kg; Weight Change Since Admit: -.8kg BMI (Calculated): 32.24; BMI Categories Adult: Obesity Class I: 30-34.9 Pertinent Allergies/Intolerances: NKFA Pertinent Labs: BUN 40, Crea 1.64, GFR 43, GLU 140; Pertinent Meds: Senna and colace BID, Synthroid, MOM; Current EN Order: Isosource 1.5 at 65 mL/day Intake Comment: 2-day average 08/15 to 08/16 = 728 mL (note EN held most of the da y on 08/15 for KASSI and PET scan) Intake (calories) Daily Average : 728 kilocalories Intake (protein) Daily Average : 50 grams Estimated Calorie Needs: 3334-9702 (25-30kcal/kg DBW) Estimated Protein Needs: 90-111g (1.2-1.5g/kg DBW) Malnutrition Assessment: Does not meet criteria Nutrition Focused Physical Assessment: Loss of Subcutaneous Fat: No; Muscle Wasting: No; Edema: Yes; Severity: Mild; Location: Generalized, Left, Lower extremities, Righ t, Upper extremities Pressure Injury: None noted Comment: + BM 08/14-constipated, laxatives given and per nursing pt with bowel so unds Nutrition Diagnosis: Inadequate oral intake Etiology: NPO due to aspiration risk Signs & Symptoms: Need for EN to meet 100% of needs Intervention / Plan: EN RECS, monitor for tolerance Monitor diet progression, Monitor wt trends Monitor GI issues, meds and labs as needed Goals: EN tolerated and meeting >75% of nutritional needs Time Frame: Throughout stay Status: Not met;Ongoing Clinical Dietitian: Mariana Waterman RD, LD Available on Voalte ING WORKER * Eb Jennings, PT - 08/17/2022 11:25 AM CST PHYSICAL THERAPY PROGRESS NOTE Name: Derek Castro Jr. : 1945 Age: 77 y.o. Admission Date: 08/09/2022 LOS: 8 days Date of Service: 08/17/2022 Mobility Patient Turn/Position: Supine (bed in chair mode) Progressive Mobility Level: Walk in hallway Distance Walked (feet): 100 ft Level of Assistance: Assist X2 Assistive Device: None Activity Limited By: Mental Status Variability Subjective Significant hospital events: 77 y.o. male with a PMH of HTN, CAD s/p CABG, CKD, seizures, and multiple ischemic strokes (2019, May 2022 and Jul 2022) with resid ual LUE ataxia who was found slumped over in a chair on 08/09 with right sided wea kness and aphasia. LKW 1130. NIH was 22. He was taken to an OSH where CT/CTA rosa maria wed a left M2 occlusion. He was not a TNK candidate due to recent stroke so he w as then transferred to [facility] and taken for thrombectomy. TICI 3 was obtained and patient was admitted to [facility] post op. Patient transferred to the IM service on . Patient with ongoing severe dysphagia and aphasia. Plan for peg tube placem ent 08/14. Mental / Cognitive Status: Alert;Inconsistent with Command Following;Cooperative Persons Present: Nursing Staff Pain: Patient demonstrates no signs of pain Comments: SBP <160; Corpak; Lake Comments: +bilateral mittens Ambulation Assist: Unable to Provide History;Independent Mobility in Community w ithout Device Home Situation: Lives with Family Type of Home: House Entry Stairs: Ramp In-Home Stairs: Able to Live on One Level Comments: Patient unable to give PLOF or home setup, information gathered from E MR. Per chart, patient independent with mobility and ADLs without a device prior to admit. Bed Mobility/Transfer Bed Mobility: Supine to Sit: Maximum Assist;Head of Bed Elevated;Requires Extra Time Transfer Type: Sit to Stand Transfer: Assistance Level: From;Bed;Minimal Assist Transfer: Assistive Device: Hand Hold Assist Transfers: Type Of Assistance: For Strength Deficit;For Balance;For Safety Consi derations Other Transfer Type: Stand to Sit Other Transfer: Assistance Level: To;Bed;Moderate Assist;x2 People Other Transfer: Assistive Device: Hand Hold Assist Other Transfer: Type Of Assistance: Verbal Cues;For Safety Considerations;Requir es Extra Time (2-person to redirect patient and get closer to bed to sit down) End Of Activity Status: In Bed;Nursing Notified;Instructed Patient to Request As sist with Mobility;Instructed Patient to Use Call Light (bed alarm active) Comments: bed in chair mode Balance Sitting Balance: Static Sitting Balance;Dynamic Sitting Balance;2 UE Support;Min imal Assist Standing Balance: Static Standing Balance;Dynamic Standing Balance;1 UE support; Minimal Assist Gait Gait Distance: 100 feet Gait: Assistance Level: Minimal Assist Gait: Assistive Device: None Gait: Descriptors: Pace: Slow;Decreased heel strike RLE;Decreased heel strike LL E;Swing-Through Gait;Decreased step length;Loss of balance Activity Limited By: (Mental status/command following) Education Persons Educated: Patient Patient Barriers To Learning: Cognitive Deficits;Impaired Communication;Family N ot Present (expressive aphasia) Interventions: Repetition of Instructions Teaching Methods: Verbal Instruction Patient Response: More Instruction Required;Return Demonstration Topics: Plan/Goals of PT Interventions;Mobility Progression;Recommend Continued Therapy;Therapy Schedule Assessment/Progress Impaired Mobility Due To: Cognitive Deficits;Impaired Balance;Decreased Strength ;Medical Status Limitation Impaired Strength Due To: Medical Status Limitation;Cognitive Deficits Assessment/Progress: Should Improve w/ Continued PT Above impairments functionally limit bed mobility, transfers, and gait. Major li miting factor(s) to mobility progression is/are cognitive impairment. Bed mobility demonstrates impaired balance and cognition, and weakness of abdomi nal muscles, requiring physical assist, verbal cues/instruction, extra time, an d HOB elevated. Return to bed today required 2-person assist to redirect patient, highly distrac tible by IV pole and other stimuli. When commanded to 'sit on the bed' he leans to reach for the bed but from too far a distance for a safe transfer. When comma nded to 'walk to the bed' or 'take some steps to the bed,' patient remains stand ing still or continues to try playing with IV pump. With second person assistanc e, pt seated in chair and bed brought closer, but patient still distracted by IV pump and tries to pull himself to stand with the unstable IV pole, requiring mo re redirection. Standing to turn to his R side remains a challenge likely due to mild inattention to R side and requires 2-person assist to safely transfer back to bed. Pt will require continued acute PT for bed mobility, transfer training, gait tra ining, and balance training. AM-PAC 6 Clicks Basic Mobility Inpatient Turning from your back to your side while in a flat bed without using bed rails: A Little Moving from lying on your back to sitting on the side of a flat bed without usin g bedrails : A Lot Moving to and from a bed to a chair (including a wheelchair): A Little Standing up from a chair using your arms (e.g. wheelchair, or bedside chair): A Little To walk in hospital room: A Little Climbing 3-5 steps with a railing: A Lot Basic Mobility Inpatient Raw Score: 16 Standardized (T-scale) Score: 38.32 AM-[facility] Basic Mobility Functional Stage: 34-51 Limited Mobility Indoors Functional Stages - Basic Mobility Score Interpretation 34-51 Limited Mobility Indoors: Your score suggests significant difficulty in mo ving about independently and the need for assistance. You may be able to move a bout in a small area of your home that has been adapted to eliminate safety haza rds. You may have difficulty moving from a sitting to standing position, climbi ng stairs and you may have a great deal of difficulty moving about outdoors and in the community. Goals Goal Formulation: Patient Unable to Participate in Goal Setting Time For Goal Achievement: 5 days, To, 7 days Patient Will Go Supine To/From Sit: w/ Minimal Assist Patient Will Transfer Bed/Chair: w/ Stand By Assist Patient Will Transfer Sit to Stand: w/ Stand By Assist Patient Will Ambulate: 151-200 Feet, w/ No Device, w/ Stand By Assist Plan Treatment Interventions: Mobility Training;Neuromuscular Reeducation;Balance Act ivities;Coordination Training;Strengthening Plan Frequency: 5 Days per Week PT Plan for Next Visit: bed mobility; transfer training; gait training; balance activities PT Discharge Recommendations Recommendation: Inpatient setting;Recommend rehab medicine consult Patient Currently Requires Physical Assist With: All mobility;All personal care ADLs;All home functioning ADLs Therapist: Eb Jennings PT, DPT [id number] Date: 08/17/2022 ING WORKER * Ligia Phelps - 08/17/2022 9:55 AM CST SPEECH-LANGUAGE PATHOLOGY DYSPHAGIA + SPEECH&LANGUAGE TREATMENT NOTE Patient seen 1x this date. Documentation reflects all daily treatment sessions. Summary: Pt continues to present with severe receptive/expressive language impairment. No functional verbal attempts made this date. Inconsistent command following using bilateral UEs and face. Not able to answer yes/no questions at this time. Use of strategies ineffective to improve performance. Pt continues to present with moderate-severe dysphagia. Suspect some recovery of swallow function this date with less s/s of aspiration across PO trials with li quids; however will require instrumental evaluation for safe initiation of diet. Pt able to withdraw liquid via straw although requires mod-max assistance for a ll PO intake. Anticipate pt will be appropriate for [place] Expresswallow study on Saturday (08/20). Discussed with RN and primary team Swallow Recommendations NPO: Continue short term non-oral nutrition, Consider intermediate card tender non-oral nutriti on Instrumental swallow assessment 08/17 AM Medications: NG tube Ice Chip Trials: 5-7 per hour Positioning: Upright at 90 degrees Oral Hygiene: Complete oral care to minimize the risk of aspirating oral bacteri a, Moistened oral swabs for oral comfort/moisture and to facilitate functional s wallow Ongoing Speech Therapy to Address: Dysphagia, Communication Communication Recommendations Provide models to improve comprehension No functional communication system at this time Anticipate pt's wants and needs based on non-verbal cues Dysphagia therapy completed. Moderate-severe oropharyngeal dysphagia. Suspected etiology of dysphagia: impaired weakness/sensation/ROM secondary to CV A. Further considerations for dysphagia: Pt intubated 08/09-08/10, mass effect from retropharyngeal course of right common carotid artery Education provided to: patient re: POC; will need ongoing reinforcement Goal : The patient will participate in ongoing assessment of swallow function w/ max cueing for alertness/attention Met Comment: Pt assessed w/ thin liquids via 1/2 tsp, full tsp, 10ml sips, mildly-thick liqui ds vis 1/2 tsp & small straw sips Oral Stage: Withdrawal: Inconsistent opening with max verbal/tactile cues. Inconsistent acti ve withdrawal of bolus from spoon/straw Bolus formation:Slowed, incoordinated Mastication:Did not try chewable solids d/t safety concerns Transfer:Significantly delayed, incoordinated Anterior bolus spillage:none Residues:none Pharyngeal stage: O2:Room air Swallow Initiation: Suspected to be delayed Laryngeal elevation:Suspected to be reduced, able to palpate and visualize Signs/symptoms of aspiration: yes Thin: cough following small cup sip (5-10ml). Pt w/ significantly reduced s/s of aspiration compared to last treatment (08/13) (no throat clears w/ 100% of trials this date). No s/s of aspiration with mildly thick liquids. Inconsistent multiple swallows observed throughout PO trials. Ab le to vocalize inconsistently to demonstrate dry vocal quality. Met, continue to target this goal Speech-language treatment completed AUDITORY COMPREHENSION Object id - field of 2: 0% Biographical yes/nos: 0% [place] yes/nos: 0% 1-step directions: 10% max cues/models (can raise his arms) VERBAL EXPRESSION Spontaneous vocalization: inconsistent vocalizations to simple biographical ques tions Automatic - countin% Word repetition: 0% Plan for next visit: Ongoing bedside trials - if clinically appropriate, conside r instrumental swallow evaluation; gato draper Frequency: 3-5x/week Therapist: Ligia Phelps MA, CF-CLINICAL RESEARCH SPEC Voalte [id number] Date: 08/17/2022 ING WORKER * Maliha Cabral OT - 08/17/2022 8:47 AM CST OCCUPATIONAL THERAPY PROGRESS NOTE Name: Derek Castro Jr. : 1945 Age: 77 y.o. Admission Date: 08/09/2022 LOS: 8 days Date of Service: 08/17/2022 Mobility Patient Turn/Position: Supine Progressive Mobility Level: Walk in room Distance Walked (feet): 40 ft Level of Assistance: Assist X2 Assistive Device: Hand Held Activity Limited By: Weakness;Mental Status Variability Subjective Pertinent Dx per Physician: 77 y.o. male with a PMH of HTN, CAD s/p CABG, CKD, s eizures, and multiple ischemic strokes (2019, May 2022 and Jul 2022) with residu al LUE ataxia who was found slumped over in a chair on 08/09 with right sided weak ness and aphasia. LKW 1130. NIH was 22. He was taken to an OSH where CT/CTA show ed a left M2 occlusion. He was not a TNK candidate due to recent stroke so he wa s then transferred to [facility] and taken for thrombectomy. TICI 3 was obtained and patient was admitted to [facility] post op Precautions: Standard;Falls Comments: +bilateral mittens Pain / Complaints: Patient demonstrates no signs of pain;Unable to rate Objective Psychosocial Status: Willing and Cooperative to Participate Persons Present: RehabTechnician Home Living Type of Home: House Home Layout: Able to Live on Main Level w/Bedrm/Bathrm Access Bathroom Shower / Tub: Tub/Shower Unit Bathroom Toilet: Standard Prior Function Level Of [place]: Independent with ADLs and functional transfers;Independen t with homemaking w/ ambulation Lives With: Spouse Receives Help From: None Needed Other Function Comments: Information gathered from EMR as patient unable to prov marisel. Patient typically independent in ADLs without use of device. Vision Comment: Doesn't track stimuli; both eyes with fixed central/left gaze. Is able to reach up and touch hand when located in L visual field but not when located i n R visual field. ADL's Where Assessed: Standing at Sink Grooming Assist: Moderate Assist Grooming Deficits: Wash/Dry Face Comment: When donning new gown, pt able to thread R and LUE and then attempts to pull up over his head. Pt requires step by step verbal cues to complete face wa shing task. Pt unable to complete task without hand over hand assist and verbal cues. In the chair, provided pt with chapstick and he is able to remove the cap but unable to bring to his face. ADL Mobility Bed Mobility: Supine to Sit: Moderate assist Bed Mobility: Sit to Supine: Moderate assist Transfer Type: Sit to/from stand Transfer: Assistance Level: From;Bed;Bedside chair;Minimal assist;x2 people Transfer: Assistive Device: Hand hold assist Transfer: Type of Assistance: For balance;For safety considerations;For strength deficit;Verbal cues End of Activity Status: In bed;Instructed patient to request assist with mobilit y;Instructed patient to use call light Gait Distance: 40 feet Gait: Assistance Level: Minimal assist;x2 people Gait: Assistive Device: Hand hold assist Gait Comments: After standing at the sink for ~8 minutes, pt appears to become e motional and confused. Able to redirect to sit down, at that time pt able to gat her himself and ambulate to chair. Attempted to keep patient up in chair instead of bed however he continues to attempt to stand up. Pt returned to bed and left with all needs met and bed alarm set. Cognition Overall Cognitive Status: Impaired Comprehension: Receptive Aphasia Cognition Comment: Able to follow single step commands this date but has poor se quencing and attention. UE PROM ROM Comments: Decreased attention to R side. Able to move spontaneously to compl ete automatic tasks. Education Persons Educated: Patient Barriers To Learning: Cognitive Deficits;Impaired Communication Interventions: Repetition of Instructions Teaching Methods: Verbal Instruction;Demonstration Patient Response: Unable to Verb or Demo Understanding Topics: Role of OT, Goals for Therapy;Home safety;ADL Compensatory Techniques Goal Formulation: Patient Unable to Participate in Goal Setting Assessment Assessment: Decreased ADL Status;Decreased UE ROM;Decreased UE Strength;Decrease d Safe/Judg during ADL;Decreased Cognition;Decreased Endurance;Visual Deficit;De creased Fine Motor Coordination;Decreased High-Level ADLs;Decreased Self-Care Tr ans;Non-Functional R UE AM-PAC 6 Clicks Daily Activity Inpatient Putting on and taking off regular lower body clothes: A Lot Bathing (Including washing, rinsing, drying): A Lot Toileting, which includes using toilet, bedpan, or urinal: A Lot Putting on and taking off regular upper body clothing: A Lot Taking care of personal grooming such as brushing teeth: A Lot Eating meals: Total Daily Activity Raw Score: 11 Standardized (T-scale) Score: 29.04 Plan OT Frequency: 5x/week OT Plan for Next Visit: RUE NMR, visual scanning, automatic ADLs ADL Goals Patient Will Perform Grooming: w/ Minimum Assist;at Edge of Bed Patient Will Perform UE Dressing: In Chair;w/ Stand By Assist Patient Will Perform LE Dressing: w/ Moderate Assist;In Chair Functional Transfer Goals Pt Will Perform All Functional Transfers: Minimum Assist Pt Will Transfer To Bedside Commode: w/ Moderate Assist OT Discharge Recommendations Recommendation: Inpatient setting;Recommend rehab medicine consult Patient Currently Requires Physical Assist With: All mobility;All personal care ADLs Therapist: Maliha Cabral OTR/Angelica [id number] Date: 08/17/2022 ING WORKER * Angeline Parra APRN-[place] - 08/17/2022 7:35 AM CST General Progress Note Name: Derek Castro Jr. Today's Date: 08/17/2022 Admission Date: 08/09/2022 LOS: 8 days Assessment/Plan: Principal Problem: Acute ischemic left MCA stroke (HCC) Active Problems: CAD (coronary artery disease) Stage 3b chronic kidney disease (HCC) Hyperlipidemia Primary hypertension Hypothyroidism Seizure disorder (HCC) History of multiple strokes Global aphasia Acute right hemiparesis (HCC) Assessment and Plan Derek Castro is a 77 yo male with a PMHx of HTN/HLD,CAD s/pCABG x5 in 2009, RLE DVT,CKD stage 3, seizures,multiple ischemic strokes(2019,May 2022, Jul 2022) with residual LUE ataxia, hypothyroidism who presented to an OSH ([facility]) on 08/09 for right sided weakness and aphasia. CT/CTA showed a left M2 occlusion. He was not a TNK candidate due to recent stroke, so he was transf erred to [facility] for further management. He is now s/p thrombectomy and was admitt ed to the [facility] post-op. Patient transferred to the IM service on 08/13. Patient hunter s ongoing severe dysphagia and aphasia. Plan for repeat video swallow Saturday mor margi and peg tube placement that afternoon if he fails. Left M2 occlusions/p IRw/ aTICI3 Basal ganglia infarct Chronicvertebral artery occlusion Severe dysphagia and aphasia Hx of multiple ischemic strokes(2019, R MCA 05/2022, L NILA 07/2022) Seizures -Presented for sudden onset right sided weakness and aphasia, L gaze deviation -OSHCT head:L frontal subacute infarct and R fronto parietal chronic infar ct -OSHCTA:Left M2 MCA, distal reconstitution.Chronicocclusion of the cer vical right vertebral artery - MRI head 08/09: Acute moderate sized left MCA territory infarct with mild cortic al petechial type hemorrhage. No midline shift or herniation. Chronic right NILA and MCA territory infarcts, chronic left parietal lobe infarct, and small bilate ral cerebellar infarcts and left caudate head lacunar type infarct - MRA head 08/09: Interval reconstituted flow within previously occluded left M2 b ranch. No remaining large vessel occlusion is identified.Irregularity within t he left carotid siphon with at least mild associated stenosis, likely atheroscle rotic - CT head 08/10: EvolvingLMCA territory infarct, minimal petechial type hemor rhage.Chronic right NILA/MCA territory infarcts, chronic left parietal lobe inf arct, chronic small bilateral cerebellar infarcts, and chronic left caudate head lacunar-type infarcts. Chronic microvascular ischemic changes - CT head 08/11:Evolving L MCA territory infarct with slight increase in mass e ffect - TTE 08/10: LVF normal, EF 60%. Technically limited study, cannot r/o small righ t to left shunting - KASSI 08/15: No evidence of interatrial shunting by color Doppler or agitated seferino ine contrast studies. No evidence of intracardiac thrombus, vegetation, or mass. Normal left ventricular size and systolic function. Estimated ejection fraction of 65%. No segmental wall motion abnormalities. Probably normal right ventricu lar size and contractility. Normal biatrial size. No hemodynamically significant valvular abnormalities. 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 hypercoagulable state - Arterial hypercoaguable workup: Cardiolipin antibodies negative, Beta 2 GP IgM /IgG negative, Hex lupus AC pending - PET 08/15: No discrete hypermetabolic mass or metastatic disease - Records requested from outpatient abseiling instructor to indicate the reasoning for o ngoing DAPT. Last visit 03/2022. No clear indication noted Plan: > Plan for Eliquis 10-14 days following initial presentation > Cont aspirin, atorvastatin, Keppra. Holding ASSEMBLY PERSON plavix for peg tube placement (08/15 - ) > Anticipate discontinuing plavix and cont single agent antiplatelet therapy with ASA and AC per neuro's recs on 08/23 > Rehab medicine consulted - PT/OT recommending inpatient care > CLINICAL RESEARCH SPEC following - plan for repeat video swallow Saturday morning and peg tube placement that afternoon if he fails. Please see installation manager's note from 08/17 for TFs recs following peg tube placement > 's wishes are aggressive. States rehab is very important to the patient. Will defer palliative care consult for now > 30 day cardiac event monitor or ILR at discharge HTN HLD CAD s/p CABG x5(2009) - Echo 08/10 with EF 60%, no WMA or ventricle dysfunction - Lipid panel: LDL 106, HDL 29 - Troponin, BNPWNL -SBP goal:< 160 per neuro Plan: > Cont amlodipine and statin CKD stage 3 - BaselineCr~1.8-2 - Creat stable near baseline Fever - resolved -2/10febrileupto 38.4 -BCs: NGTD -MRSA neg, CXR without consolidation, Procal 0.11 -Sputum culture with normal oropharyngeal hood -UA 2+ leuks, 20-50 WBCs, culture NGTD -Vanc/zosyninitially started and narrowed torocephin for possible UTI - s/p rocephin 08/11-08/13 Hypothyroidism > Cont ASSEMBLY PERSON levothyroxine Rash - Dry, red macular rash noted to entire back Plan: > Cont Emollient cream Pulmonary nodules - Incidental finding - Multiple subcentimeter pulmonary nodules, indeterminant on initial examination . No dominant pulmonary mass Plan: > Follow-up CT chest in 3 months recommended to evaluate for stability Concern for hypopharyngeal mass - ENT consulted - CT neck reviewed without evidence of mass Acute urinary retention - Likely neurogenic due to stroke - Requiring freq SCs. [place] placed 08/13 Plan: > Cont doxazosin 1mg daily (unable to use Flomax due to Corpak) > Repeat voiding trial next week Agitation - Noted to have increased delirium and agitation at night - Required PO Seroquel and mitts on 08/15 Plan: > Melatonin 5mg QHS, trazodone 25mg QHS PRN FEN -No IVFs -Daily labs -Diet: TFs via Corpak, trial ice chips as ordered PPx: Heparin Code Status: Full Code Disposition: Continue inpatient care. Plan for repeat video swallow Saturday morni ng and peg tube placement that afternoon if he fails. requesting rehab faci lity near [place], [place] Barriers to discharge: Corpak; unable to place peg tube until Plavix has been he ld for 5 days Angeline Parra APRN, CONFERENCE CONCIERGE-C [phone] Willis Subjective Patient assessed at the bedside today. Alert today, mumbling words. Appears less restless. Cannot say his name. Patient lifted both arms and wiggle his toes on command. Would not shake his head "yes or no." Unable to obtain hx due to severe aphasia. Unable to complete a comprehensive 14 point review of organ systems due to patie nt condition Medications Scheduled Meds:amLODIPine (NORVASC) tablet 10 mg, 10 mg, Per NG tube, QDAY aspirin EC tablet 81 mg, 81 mg, Oral, QDAY atorvastatin (LIPITOR) tablet 80 mg, 80 mg, Per NG tube, QDAY chlorhexidine gluconate (PERIDEX) 0.12 % solution 15 mL, 15 mL, Swish & Spit, BID(8-20) senna (SENOKOT) oral syrup 8.8 mg, 8.8 mg, Per NG tube, BID And docusate sodium (COLACE) oral solution 50 mg, 50 mg, Oral, BID doxazosin (CARDURA) tablet 1 mg, 1 mg, Per NG tube, QDAY heparin (porcine) PF syringe 5,000 Units, 5,000 Units, Subcutaneous, Q8H levETIRAcetam (KEPPRA) oral solution 500 mg, 500 mg, Oral, BID levothyroxine (SYNTHROID) tablet 112 mcg, 112 mcg, Per NG tube, QDAY(07) melatonin tablet 5 mg, 5 mg, Oral, QHS milk of magnesium oral suspension 30 mL, 30 mL, Oral, QDAY Continuous Infusions: Diet Enteral Feeding Standard Infusion 65 mL/hr at 08/16/222 PRN and Respiratory Meds:acetaminophen Q4H PRN, emollient PRN, labetalol (NORMOD YNE; TRANDATE) injection Q6H PRN, pancrelipase 20,880 Units/sodium bicarbonate 6 50 mg (KU CLOG DESTROYER) PRN (News Producer from Rx), traZODone QHS PRN Objective Vital Signs: Last Filed Vital Signs: 24 Gladis r Range BP: 147/79 (08/17 409) Temp: 37.1 C (98.7 F) (08/17 409) Pulse: 82 (08/17 409) Respirations: 18 PER MINUTE (08/17 409) SpO2: 94 % (08/17 409) O2 Device: None (Room air) (08/17 409) BP: (121-149)/(70-87) Temp: [36.4 C (97.6 F)-37.1 C (98.7 F)] Pulse: [61-82] Respirations: [18 PER MINUTE-20 PER MINUTE] SpO2: [94 %-98 %] O2 Device: None (Room air) Vitals: 08/10/22 0700 08/15/22 1010 08/15/22 1325 Weight: 99.7 kg (219 lb 12.8 oz) 96.6 kg (212 lb 15.4 oz) 96.2 kg (212 lb) Intake/Output Summary: (Last 24 hours) Intake/Output Summary (Last 24 hours) at 08/17/2022 0735 Last data filed at 08/17/2022 0410 Gross per 24 hour Intake 2343 ml Output 1775 ml Net 568 ml Stool Occurrence: 0 Physical Exam General: Alert, no distress, appears stated age Head: Normocephalic, without obvious abnormality, atraumatic Eyes: Conjunctivae/corneas clear. PERRL, EOMs intact Nose: Nares normal. Corpak in place Throat: Lips, mucosa and tongue moist Neck: Symmetrical Back: Symmetric, no curvature Lungs: Clear to auscultation bilaterally Heart: Regular rate and rhythm, S1, S2 normal, no murmur, click rub or gallop Abdomen: Soft, non-tender. Bowel sounds normal. No masses Extremities: Extremities normal, atraumatic, no cyanosis or edema Pulses: 2+ and symmetric in b/l radials Skin: Skin color, texture, turgor normal. No rashes or lesions Neurologic: Aphasic, strength 4/5 in all extremities Lab Review 24-hour labs: Results for orders placed or performed during the hospital encounter of 08/09/22 (from the past 24 hour(s)) CBC Collection Time: 08/17/22 6:11 AM Result Value Ref Range White Blood Cells 7.4 4.5 - 11.0 K/UL RBC 4.60 4.4 - 5.5 M/UL Hemoglobin 14.0 13.5 - 16.5 GM/DL Hematocrit 41.6 40 - 50 % MCV 90.4 80 - 100 FL MCH 30.5 26 - 34 PG MCHC 33.7 32.0 - 36.0 G/DL RDW 13.8 11 - 15 % Platelet Count 281 150 - 400 K/UL MPV 9.2 7 - 11 FL BASIC METABOLIC PANEL Collection Time: 08/17/22 6:11 AM Result Value Ref Range Sodium 140 137 - 147 MMOL/L Potassium 4.0 3.5 - 5.1 MMOL/L Chloride 106 98 - 110 MMOL/L CO2 25 21 - 30 MMOL/L Anion Gap 9 3 - 12 Glucose 140 (H) 70 - 100 MG/DL Blood Urea Nitrogen 40 (H) 7 - 25 MG/DL Creatinine 1.64 (H) 0.4 - 1.24 MG/DL Calcium 8.9 8.5 - 10.6 MG/DL eGFR 43 (L) >60 mL/min Point of Care Testing (Last 24 hours): NA Glucose: (!) 140 (08/17/22 0611) Radiology and other Diagnostics Review: Pertinent radiology reviewed. Angeline Parra APRN-CONFERENCE CONCIERGE Pager [phone] ING WORKER Associated attestation - Ankush Willis DO - 08/17/2022 12:51 PM HEATING WORKER ATTESTATION I personally performed the tineo elements of the E/M service, discussed case with CONFERENCE CONCIERGE Angeline Parra and concur with documentation of history, physical exam, assessment, and treatment plan unless otherwise noted. Per CLINICAL RESEARCH SPEC, will repeat video swallow Saturday and plan for PEG if continues to fail. remains with aggressive goals and wants to get patient to rehab. Will not engage palliative care at this time. Have been holding mining captain plavix for PEG placement - do not plan for restarting plav ix. Per outside cardiology notes, had been on DAPT since 2019 when had a stent p laced. No further indication for DAPT documented. Will add eliquis to aspirin, p er neurology recommendation (okay to add AC 10-14 days from 08/09) so could add ea rly next week. Staff name: Ankush Willis DO Date: 08/17/2022 * Isabel Larose DO - 08/16/2022 2:24 PM CST Neurology Consultation Name: Derek Aranda Matthew Shell Admission Date: 08/09/2022 LOS: 7 days [id number] ASSESSMENT: Principal Problem: Acute ischemic left MCA stroke (HCC) Active Problems: CAD (coronary artery disease) Stage 3b chronic kidney disease (HCC) Hyperlipidemia Primary hypertension Hypothyroidism Seizure disorder (HCC) History of multiple strokes Global aphasia Acute right hemiparesis (HCC) Derek Castro Jr. is a 77 yo male with epilepsy, HTN, HLD, CAD s/p CABG, CKD, Mult iple recurrent ischemic strokes of unclear etiology (RMCA in 05/2022, L NILA in ) that presented from OSH with aphasia and L hemiplegia and found to have a cute LMCA stroke 2/2 to LM2 occlusion with good distal reconstitution. Transfer red to [facility] where he underwent EVT with TICI3 recanalization. Hospital course complicated by fever requiring antibiotics for possible UTI, acute urinary reten tion, concern for hypopharyngeal mass although CT neck unremarkable, dysphagia. Imaging/Diagnostic Studies: - IR Arteriogram: Occlusion of the superior LM2 extending into the M1. Wastewater Analyst al aspiration resulted in complete recanalization TICI3. -MRI head: Acute L MCA moderate infarct with mild cortical petechial hemorrhage or vascular thrombosis in the infarct territories. Chronic R NILA/MCA infarcts, chronic L parietal lobe infarct, small b/l cerebellar infarcts, L caudate infarc t. -MRA Head: Interval reconstituted flow in the previously occluded Lm2 branch. Mi ld atherosclerosis of the L carotid siphon. Congenital absent L A1, diminutive R vertebral artery -CT head 08/10: Evolving L MCA infarct involving the L frontal, insula, external capsule. Minimal petechial type hemorrhage. No gross conversion. Mild locali zed mass effect and sulcal effacement. -TTE: LVEF 60%. Normal size L atrium. RV normal. Aortic valve not well visua lized. Technically difficult study, cannot exclude shunt. -KASSI: No shunt. -CT C/A/P: Multiple subcentimeter pulmonary nodules, indeterminate on initial ex amination. Follow-up CT chest in 3 months is recommended. -CT Neck: Retrophargyneal course of R CCA produces mass effect and effacement of the R oropharynx and R hypopharynx could cause R submucosal mass on intubation. No definite evidence of L hyoopharyngeal mass. -PET 08/15: No discrete hypermetabolic mass or metastatic disease -A1c 5.8, LDL 106, HDL 29, TG 130 - Hypercoagulability workup: Cardiolipin Antibodies (reassuring), Beta 2 GP IgM/ IgG (reassuring), Hex Lupus AC (pending) Impression: LMCA stroke 2/2 to LM2 occlusion s/p EVT TICI 3, in setting of multi ple recent strokes (RMCA 05/2022, LACA 07/2022), etiology: Cryptogenic, suspect E HARDIK. He has had multiple ischemic strokes (now 3) in varying vascular territories wit hin the past 4 months suspicious for embolic source vs hypercoagulable state. Tabatha pretty multiple strokes, would benefit from anticoagulation, preferably with Eliqu is, for secondary prevention. Would wait 10-14 days from stroke onset to start anticoagulation give moderate size of infarct with petechial hemorrhage. Unless needed from a cardiac perspective, no indication for DAPT, can narrow to ASA mo notherapy. Overall, the suggested workup has returned reassuring against an und erlying cardiac or hypercoagulable state to otherwise explain his significant st roke burden. His KASSI showed no concerns for shunts. He will need event monitor or ILR to assess for arrhythmias. Hypercoag workup with labs and PET scan retur eva reassuring, but hex lupus anticoagulant is pending. CT C/A/P with pulmonary nodules, recommend repeating imaging in 3 months for stability. Otherwise cont inue secondary stroke risk factor modifications as below. PT/OT/Rehab. Severe dysphagia: Corpak in place, CLINICAL RESEARCH SPEC following, primary team planning for PEG 2/20. His multiple strokes have significantly reduced his functionality and communicat ion abilities within a short period of time. His global aphasia does not seem t o be improving and is dense. We suggest to the primary team to consider palliat los care consult for goals of care discussion with his caregivers. RECOMMENDATIONS: >Recommend anticoagulation with preferably with Eliquis, 10-14 days following initial presentation for recurrent ischemic strokes and suspected embolic/hypercoaguable state >Arterial hypercoaguable workup: Hex Lupus AC (pending) >30 day cardiac event monitor or ILR >Stroke risk factor modifications: -Antiplt therapy: From a neurological perspective, no need for DAPT. If there is no other reason (I.e. cardiac) for DAPT, can narrow to ASA monotherapy. -HLD: LDL 106. Goal <70. Continue atorvastatin 80mg. -Prediabetes: A1c 5.8. Goal <7.0. Continue glycemic management. -TTE as above. KASSI as above -Event monitor/ILR as above -Continue smoking cessation -Pulmonary nodules: Repeat CT Chest in 3 months time for follow-up >PT/OT/Rehab >Dysphagia: Corpak in Place. CLINICAL RESEARCH SPEC following. PEG planned. >Consider palliative care involvement for goals of care discussion with caregivers >Neurology will sign off. Thank you for allowing us to participate in the care of this patient. Please pag e neurology stroke behavioral modification assistant [phone] with any further questions or concerns. Isabel Larose, DO PGY-3 __ Subjective: Majority of suggested workup returned. Saw patient on the floor, no family at bedside. Medical History: Diagnosis Date CAD (coronary artery disease) 03/2010 s/p CABG x 5 CKD (chronic kidney disease) stage 3, GFR 30-59 ml/min (HCC) Deep vein thrombosis (DVT) of right lower extremity (HCC) 05/2010 s/p CABG Gout History of left NILA stroke 07/2022 History of right MCA stroke 05/2022 Hyperlipidemia Hypothyroidism Primary hypertension Seizure disorder (HCC) Surgical History: Procedure Laterality Date CORONARY ARTERY BYPASS GRAFT 03/2010 x 5 vessel Social History Socioeconomic History Marital status: Tobacco Use Smoking status: Former Types: Cigarettes Smokeless tobacco: Never Vaping Use Vaping Use: Never used Substance and Sexual Activity Alcohol use: Not Currently Drug use: Not Currently History reviewed. No pertinent family history. Immunizations (includes history and patient reported): Immunization History Administered Date(s) Administered COVID-19 (MODERNA), mRNA vacc, 100 mcg/0.5 mL (PF) 08/27/2020, 09/22/2020, 1 Allergies: Patient has no known allergies. Medications: Medications Prior to Admission Medication Sig allopurinoL (ZYLOPRIM) 100 mg tablet Take 50 mg by mouth daily. Take with fo od. amLODIPine (NORVASC) 10 mg tablet Take 10 mg by mouth daily. aspirin EC 81 mg tablet Take 81 mg by mouth daily. Take with food. atorvastatin (LIPITOR) 80 mg tablet Take 80 mg by mouth daily. cetirizine (ZYRTEC) 10 mg tablet Take 10 mg by mouth daily. CHOLEcalciferoL (vitamin D3) (VITAMIN D3) 5000 unit tablet Take 5,000 Units by mouth daily. clopiDOGreL (PLAVIX) 75 mg tablet Take 75 mg by mouth daily. fish oil- omega 3-DHA/EPA 300/1,000 mg capsule Take 1 capsule by mouth daily . levETIRAcetam (KEPPRA) 500 mg tablet Take 500 mg by mouth twice daily. levothyroxine (SYNTHROID) 125 mcg tablet Take 125 mcg by mouth daily [address] before breakfast. lisinopriL (ZESTRIL) 20 mg tablet Take 20 mg by mouth daily. melatonin 5 mg chew Chew 5 mg by mouth at bedtime daily. multivitamin (ONE-A-DAY) tablet Take 1 tablet by mouth daily. No current facility-administered medications on file prior to encounter. Current Outpatient Medications on File Prior to Encounter Medication Sig Dispense Refill allopurinoL (ZYLOPRIM) 100 mg tablet Take 50 mg by mouth daily. Take with fo od. amLODIPine (NORVASC) 10 mg tablet Take 10 mg by mouth daily. aspirin EC 81 mg tablet Take 81 mg by mouth daily. Take with food. atorvastatin (LIPITOR) 80 mg tablet Take 80 mg by mouth daily. cetirizine (ZYRTEC) 10 mg tablet Take 10 mg by mouth daily. CHOLEcalciferoL (vitamin D3) (VITAMIN D3) 5000 unit tablet Take 5,000 Units by mouth daily. clopiDOGreL (PLAVIX) 75 mg tablet Take 75 mg by mouth daily. fish oil- omega 3-DHA/EPA 300/1,000 mg capsule Take 1 capsule by mouth daily . levETIRAcetam (KEPPRA) 500 mg tablet Take 500 mg by mouth twice daily. levothyroxine (SYNTHROID) 125 mcg tablet Take 125 mcg by mouth daily 30 [address]ber[address] before breakfast. lisinopriL (ZESTRIL) 20 mg tablet Take 20 mg by mouth daily. melatonin 5 mg chew Chew 5 mg by mouth at bedtime daily. multivitamin (ONE-A-DAY) tablet Take 1 tablet by mouth daily. Review of Systems: Constitutional: negative Eyes: negative Ears, nose, mouth, throat, and face: negative Respiratory: negative Cardiovascular: negative Gastrointestinal: negative Genitourinary: negative Integument/breast: negative Hematologic/lymphatic: negative Musculoskeletal: negative Neurological: negative Behavioral/Psych: negative Endocrine: negative Allergic/Immunologic: negative Physical Exam: Vital Signs: Last Filed In 24 Hours Vital Signs: 24 Hour Range BP: 149/70 (08/16 1299) Temp: 36.8 C (98.3 F) (08/16 1299) Pulse: 74 (08/16 1299) Respirations: 20 PER MINUTE (08/16 1299) SpO2: 95 % (08/16 1299) O2 Device: None (Room air) (08/16 1299) BP: (134-156)/(70-86) Temp: [36.4 C (97.6 F)-36.9 C (98.5 F)] Pulse: [59-77] Respirations: [16 PER MINUTE-20 PER MINUTE] SpO2: [94 %-97 %] O2 Device: None (Room air) Neuro exam: Mental status: Awake Speech: Global Aphasia Cranial Nerves: L gaze preference, lack of blink to threat. R facial droop Muscle/motor: No movement noted in RUE. Withdraws against gravity in LUE. Fli cker in b/l LE to noxious stimuli Sensation: Moves lower extremities to touch Coordination: Deferred Gait and Station: Deferred Lab/Radiology/Other Diagnostic Tests: Results for orders placed or performed during the hospital encounter of 08/09/22 (from the past 48 hour(s)) BASIC METABOLIC PANEL Collection Time: 08/15/22 6:11 AM # # Low-High Sodium 142 137 - 147 MMOL/L Potassium 4.0 3.5 - 5.1 MMOL/L Chloride 106 98 - 110 MMOL/L CO2 27 21 - 30 MMOL/L Anion Gap 9 3 - 12 Glucose 85 70 - 100 MG/DL Blood Urea Nitrogen 34 (H) 7 - 25 MG/DL Creatinine 1.77 (H) 0.4 - 1.24 MG/DL Calcium 9.3 8.5 - 10.6 MG/DL eGFR 39 (L) >60 mL/min CBC Collection Time: 08/15/22 6:11 AM # # Low-High White Blood Cells 6.9 4.5 - 11.0 K/UL RBC 4.62 4.4 - 5.5 M/UL Hemoglobin 13.9 13.5 - 16.5 GM/DL Hematocrit 42.0 40 - 50 % MCV 91.0 80 - 100 FL MCH 30.1 26 - 34 PG MCHC 33.1 32.0 - 36.0 G/DL RDW 14.2 11 - 15 % Platelet Count 243 150 - 400 K/UL MPV 9.2 7 - 11 FL CBC Collection Time: 08/16/22 6:56 AM # # Low-High White Blood Cells 7.4 4.5 - 11.0 K/UL RBC 4.63 4.4 - 5.5 M/UL Hemoglobin 13.9 13.5 - 16.5 GM/DL Hematocrit 41.7 40 - 50 % MCV 90.1 80 - 100 FL MCH 29.9 26 - 34 PG MCHC 33.2 32.0 - 36.0 G/DL RDW 13.9 11 - 15 % Platelet Count 256 150 - 400 K/UL MPV 9.0 7 - 11 FL BASIC METABOLIC PANEL Collection Time: 08/16/22 6:56 AM # # Low-High Sodium 139 137 - 147 MMOL/L Potassium 3.5 3.5 - 5.1 MMOL/L Chloride 104 98 - 110 MMOL/L CO2 26 21 - 30 MMOL/L Anion Gap 9 3 - 12 Glucose 137 (H) 70 - 100 MG/DL Blood Urea Nitrogen 39 (H) 7 - 25 MG/DL Creatinine 1.70 (H) 0.4 - 1.24 MG/DL Calcium 8.8 8.5 - 10.6 MG/DL eGFR 41 (L) >60 mL/min Cardiolipin, IgG <20.0 GPL/ML <1.6 Cardiolipin, IgM <20.0 MPL/ML 0.2 BETA-2 GLY 1 AB IGM <20.0 U/mL 0.2 BETA-2 GLY 1 AB ICG <20.0 U/mL <1.4 Hex lupus anticoagulant - pending. RECENT RADIOLOGY Pertinent radiology reviewed. -08/15/2022 NM PET scan Torso No discrete hypermetabolic mass or metastatic disease. -08/15/2022 ECHOCARDIOGRAM 1. No evidence of interatrial shunting by color Doppler or agitated saline contr ast studies. 2. No evidence of intracardiac thrombus, vegetation, or mass. 3. Normal left ventricular size and systolic function. Estimated ejection fract ion of 65%. No segmental wall motion abnormalities. 4. Probably normal right ventricular size and contractility. 5. Normal biatrial size. 6. No hemodynamically significant valvular abnormalities. 7. No pericardial effusion. No prior transesophageal echocardiogram for comparison. Isabel Larose DO ING WORKER Associated attestation - Disha Michelle DO - 08/16/2022 4:39 PM HEATING WORKER I personally performed the tineo portions of the E/M visit, reviewed vitals, labs, and pertinent radiological imaging. I have discussed the case and concur with the documentation of the history, physical exam, assessment, and plan of care as outlined below unless otherwise noted. * Eb Jennings, PT - 08/16/2022 1:16 PM CST PHYSICAL THERAPY PROGRESS NOTE Name: Derek Castro : 1945 Age: 77 y.o. Admission Date: 08/09/2022 LOS: 7 days Date of Service: 08/16/2022 Mobility Patient Turn/Position: Supine (bed in chair mode) Progressive Mobility Level: Walk in hallway Distance Walked (feet): 150 ft Level of Assistance: Assist X2 Assistive Device: None Activity Limited By: No limitations Subjective Significant hospital events: 77 y.o. male with a PMH of HTN, CAD s/p CABG, CKD, seizures, and multiple ischemic strokes (2019, May 2022 and Jul 2022) with resid ual LUE ataxia who was found slumped over in a chair on 08/09 with right sided wea kness and aphasia. LKW 1130. NIH was 22. He was taken to an OSH where CT/CTA rosa maria wed a left M2 occlusion. He was not a TNK candidate due to recent stroke so he w as then transferred to [facility] and taken for thrombectomy. TICI 3 was obtained and patient was admitted to [facility] post op. Patient transferred to the IM service on . Patient with ongoing severe dysphagia and aphasia. Plan for peg tube placem ent 08/14. Mental / Cognitive Status: Alert;Follows Commands;Cooperative (expressive aphasi a, turns his attention when you say his name) Persons Present: RehabTechnician Pain: Patient demonstrates no signs of pain Comments: SBP <160; Corpak; Lake Comments: +bilateral mittens Ambulation Assist: Independent Mobility in Community without Device;Unable to Pr ovide History Home Situation: Lives with Family Type of Home: House Entry Stairs: Ramp In-Home Stairs: Able to Live on One Level Comments: Patient unable to give PLOF or home setup, information gathered from E MR. Per chart, patient independent with mobility and ADLs without a device prior to admit. ROM ROM Comments: Decreased attention to R side. Able to move spontaneously to compl ete automatic tasks. Bed Mobility/Transfer Bed Mobility: Supine to Sit: Moderate Assist;Head of Bed Elevated Transfer Type: Sit to Stand Transfer: Assistance Level: From;Bed;Minimal Assist Transfer: Assistive Device: Hand Hold Assist Transfers: Type Of Assistance: For Strength Deficit;For Balance;For Safety Consi derations Other Transfer Type: Stand to Sit Other Transfer: Assistance Level: To;Bed;Minimal Assist Other Transfer: Assistive Device: Hand Hold Assist Other Transfer: Type Of Assistance: Verbal Cues;For Balance;For Strength Deficit End Of Activity Status: In Bed;Nursing Notified;Instructed Patient to Request As sist with Mobility;Instructed Patient to Use Call Light (bed alarm active) Comments: bed in chair mode Balance Sitting Balance: Static Sitting Balance;Dynamic Sitting Balance;2 UE Support;Min imal Assist Standing Balance: Static Standing Balance;Dynamic Standing Balance;1 UE support; Moderate Assist Gait Gait Distance: 150 feet Gait: Assistance Level: Minimal Assist;x2 People;Management of Lines;Safety Cons iderations Gait: Assistive Device: None Gait: Descriptors: Pace: Slow;Decreased heel strike RLE;Decreased heel strike LL E;Swing-Through Gait;Decreased step length;Loss of balance (crossover midline w/ staggering; head preference rotated L. mild path deviation R with cues needed to steer from wall/objects on R side. slows pace when objects in front of him) Education Persons Educated: Patient Patient Barriers To Learning: Cognitive Deficits;Impaired Communication;Family N ot Present (expressive aphasia) Interventions: Repetition of Instructions Teaching Methods: Verbal Instruction Patient Response: More Instruction Required;Return Demonstration Topics: Plan/Goals of PT Interventions;Mobility Progression;Recommend Continued Therapy;Therapy Schedule Assessment/Progress Impaired Mobility Due To: Cognitive Deficits;Impaired Balance;Decreased Strength ;Medical Status Limitation Impaired Strength Due To: Medical Status Limitation;Cognitive Deficits Assessment/Progress: Should Improve w/ Continued PT Above impairments functionally limit bed mobility, transfers, gait, and stairs n egotiation. Major limiting factor(s) to mobility progression is/are balance impa irment and cognitive impairment. Bed mobility demonstrates weakness of abdominal muscles, requiring physical ass ist. Gait demonstrates impaired balance, diminished arm swing, narrow JORDY/decreased s tep width, staggering/LOB, and decreased bilateral foot clearance with path shirley ation R with decreased obstacle clearance on the R. It also exhibits weakness of gluteal and abdominal muscles, requiring physical assist, verbal cues/instruc tion, and tactile cues. He appears to comprehend commands but have expressive aphasia. He also appears t o have mild inattention to R side as exhibited by preference to look left while deviating right. He seems to like being out of bed and would be an excellent can didate for inpatient rehabilitation. Pt will require continued acute PT for bed mobility, transfer training, gait tra ining, balance training, and neuromuscular reeducation. AM-PAC 6 Clicks Basic Mobility Inpatient Turning from your back to your side while in a flat bed without using bed rails: A Little Moving from lying on your back to sitting on the side of a flat bed without usin g bedrails : A Lot Moving to and from a bed to a chair (including a wheelchair): A Little Standing up from a chair using your arms (e.g. wheelchair, or bedside chair): A Little To walk in hospital room: A Lot Climbing 3-5 steps with a railing: Total Basic Mobility Inpatient Raw Score: 14 Standardized (T-scale) Score: 35.55 AM-PAC Basic Mobility Functional Stage: 34-51 Limited Mobility Indoors Functional Stages - Basic Mobility Score Interpretation 34-51 Limited Mobility Indoors: Your score suggests significant difficulty in mo ving about independently and the need for assistance. You may be able to move a bout in a small area of your home that has been adapted to eliminate safety haza rds. You may have difficulty moving from a sitting to standing position, climbi ng stairs and you may have a great deal of difficulty moving about outdoors and in the community. Goals Goal Formulation: Patient Unable to Participate in Goal Setting Time For Goal Achievement: 5 days, To, 7 days Patient Will Go Supine To/From Sit: w/ Minimal Assist Patient Will Transfer Bed/Chair: w/ Stand By Assist Patient Will Transfer Sit to Stand: w/ Stand By Assist Patient Will Ambulate: 151-200 Feet, w/ No Device, w/ Stand By Assist Plan Treatment Interventions: Mobility Training;Neuromuscular Reeducation;Balance Act ivities;Coordination Training;Strengthening Plan Frequency: 5 Days per Week PT Plan for Next Visit: bed mobility; transfer training; gait training PT Discharge Recommendations Recommendation: Inpatient setting;Recommend rehab medicine consult Patient Currently Requires Physical Assist With: All mobility;All personal care ADLs;All home functioning ADLs Therapist: Eb Jennings PT, DPT [id number] Date: 08/16/2022 ING WORKER * Maliha Cabral OT - 08/16/2022 9:53 AM CST OCCUPATIONAL THERAPY PROGRESS NOTE Name: Derek Castro Jr. : 1945 Age: 77 y.o. Admission Date: 08/09/2022 LOS: 7 days Date of Service: 08/16/2022 Mobility Patient Turn/Position: Supine Progressive Mobility Level: Walk in room Distance Walked (feet): 40 ft Level of Assistance: Assist X2 Assistive Device: Hand Held Activity Limited By: Weakness;Mental Status Variability Subjective Pertinent Dx per Physician: 77 y.o. male with a PMH of HTN, CAD s/p CABG, CKD, s eizures, and multiple ischemic strokes (2019, May 2022 and Jul 2022) with residu al LUE ataxia who was found slumped over in a chair on 08/09 with right sided weak ness and aphasia. LKW 1130. NIH was 22. He was taken to an OSH where CT/CTA show ed a left M2 occlusion. He was not a TNK candidate due to recent stroke so he wa s then transferred to [facility] and taken for thrombectomy. TICI 3 was obtained and patient was admitted to [facility] post op Precautions: Standard;Falls Pain / Complaints: Patient demonstrates no signs of pain;Unable to rate Objective Psychosocial Status: Participates in Therapy with Encouragement Persons Present: RehabTechnician Home Living Type of Home: House Home Layout: Able to Live on Main Level w/Bedrm/Bathrm Access Bathroom Shower / Tub: Tub/Shower Unit Bathroom Toilet: Standard Prior Function Level Of [place]: Independent with ADLs and functional transfers;Independen t with homemaking w/ ambulation Lives With: Spouse Receives Help From: None Needed Other Function Comments: Information gathered from EMR as patient unable to prov marisel. Patient typically independent in ADLs without use of device. Vision Comment: Doesn't track stimuli; both eyes with fixed central/left gaze. Is able to reach up and touch hand when located in L visual field but not when located i n R visual field. ADL's Where Assessed: Standing at Sink Grooming Assist: Moderate Assist Grooming Deficits: Wash/Dry Face LE Dressing Assist: Maximum Assist LE Dressing Deficits: Don/Doff R Sock;Don/Doff L Sock Comment: Pt requires step by step verbal cues to complete face washing task. Pt unable to complete task without hand over hand assist and verbal cues. Initially completes in standing but unable to fully complete due to poor attention. ADL Mobility Bed Mobility: Supine to Sit: Moderate assist;x2 people Bed Mobility: Sit to Supine: Minimal assist Bed Mobility Comments: Poor initiation of task and requires physical assist to c omplete. Once seated EOB pt attempts to return to supine several times. Transfer Type: Sit to/from stand Transfer: Assistance Level: From;Bed;Bedside chair;Minimal assist Transfer: Assistive Device: Hand hold assist Transfer: Type of Assistance: For balance;For safety considerations;For strength deficit;Verbal cues Gait Distance: 40 feet Gait: Assistance Level: Moderate assist Gait: Assistive Device: Hand hold assist Gait Comments: Requires assist for weight shift during ambulation. Pt returns to bed at end of session per request of bedside RN. Pt left in bed with all needs met and bed alarm set. Cognition Overall Cognitive Status: Impaired Expression: Expressive Aphasia;Non Verbal Cognition Comment: Able to follow single step commands this date but has poor in itiation and attention. UE PROM R UE ROM: Not WFL R UE ROM Method: Active L UE ROM: WFL L UE ROM Method: Active R LE ROM: WFL R LE ROM Method: Passive;Active L LE ROM: WFL L LE ROM Method: Active;Passive Grasp: Bilateral Grasp Functional for Activity ROM Comments: Decreased attention to R side. Able to move spontaneously to compl ete automatic tasks. Education Persons Educated: Patient Barriers To Learning: Cognitive Deficits;Impaired Communication Interventions: Repetition of Instructions Teaching Methods: Verbal Instruction;Demonstration Patient Response: Unable to Verb or Demo Understanding Topics: Role of OT, Goals for Therapy;Home safety;ADL Compensatory Techniques Goal Formulation: Patient Unable to Participate in Goal Setting Assessment Assessment: Decreased ADL Status;Decreased UE ROM;Decreased UE Strength;Decrease d Safe/Judg during ADL;Decreased Cognition;Decreased Endurance;Visual Deficit;De creased Fine Motor Coordination;Decreased High-Level ADLs;Decreased Self-Care Tr ans;Non-Functional R UE AM-PAC 6 Clicks Daily Activity Inpatient Putting on and taking off regular lower body clothes: A Lot Bathing (Including washing, rinsing, drying): A Lot Toileting, which includes using toilet, bedpan, or urinal: A Lot Putting on and taking off regular upper body clothing: A Lot Taking care of personal grooming such as brushing teeth: A Lot Eating meals: Total Daily Activity Raw Score: 11 Standardized (T-scale) Score: 29.04 Plan OT Frequency: 5x/week OT Plan for Next Visit: RUE NMR, visual scanning, automatic ADLs ADL Goals Patient Will Perform Grooming: w/ Minimum Assist;at Edge of Bed Patient Will Perform UE Dressing: In Chair;w/ Stand By Assist Patient Will Perform LE Dressing: w/ Moderate Assist;In Chair Functional Transfer Goals Pt Will Transfer To Bedside Commode: w/ Moderate Assist OT Discharge Recommendations Recommendation: Inpatient setting;Recommend rehab medicine consult Patient Currently Requires Physical Assist With: All mobility;All personal care ADLs Therapist: VIN Christensen/Angelica [id number] Date: 08/16/2022 ING WORKER * Angeline Parra APRN-CONFERENCE CONCIERGE - 08/16/2022 7:51 AM CST General Progress Note Name: Derek Castro Jr. Today's Date: 08/16/2022 Admission Date: 08/09/2022 LOS: 7 days Assessment/Plan: Principal Problem: Acute ischemic left MCA stroke (HCC) Active Problems: CAD (coronary artery disease) Stage 3b chronic kidney disease (HCC) Hyperlipidemia Primary hypertension Hypothyroidism Seizure disorder (HCC) History of multiple strokes Global aphasia Acute right hemiparesis (HCC) Assessment and Plan Derek Castro is a 77 yo male with a PMHx of HTN/HLD,CAD s/pCABG x5 in 2009, RLE DVT,CKD stage 3, seizures,multiple ischemic strokes(2019,May 2022, Jul 2022) with residual LUE ataxia, hypothyroidism who presented to an OSH ([facility]) on 08/09 for right sided weakness and aphasia. CT/CTA showed a left M2 occlusion. He was not a TNK candidate due to recent stroke, so he was transf erred to [facility] for further management. He is now s/p thrombectomy and was admitt ed to the [facility] post-op. Patient transferred to the IM service on 08/13. Patient hunter s ongoing severe dysphagia and aphasia. Plan for peg tube placement 08/20. Left M2 occlusions/p IRw/ [id number] Basal ganglia infarct Chronicvertebral artery occlusion Severe dysphagia and aphasia Hx of multiple ischemic strokes(2019, R MCA 05/2022, L NILA 07/2022) Seizures -Presented for sudden onset right sided weakness and aphasia, L gaze deviation -OSHCT head:L frontal subacute infarct and R fronto parietal chronic infar ct -OSHCTA:Left M2 MCA, distal reconstitution.Chronicocclusion of the cer vical right vertebral artery - MRI head 08/09: Acute moderate sized left MCA territory infarct with mild cortic al petechial type hemorrhage. No midline shift or herniation. Chronic right NILA and MCA territory infarcts, chronic left parietal lobe infarct, and small bilate ral cerebellar infarcts and left caudate head lacunar type infarct - MRA head 08/09: Interval reconstituted flow within previously occluded left M2 b ranch. No remaining large vessel occlusion is identified.Irregularity within t he left carotid siphon with at least mild associated stenosis, likely atheroscle rotic - CT head 08/10: EvolvingLMCA territory infarct, minimal petechial type hemor rhage.Chronic right NILA/MCA territory infarcts, chronic left parietal lobe inf arct, chronic small bilateral cerebellar infarcts, and chronic left caudate head lacunar-type infarcts. Chronic microvascular ischemic changes - CT head 08/11:Evolving L MCA territory infarct with slight increase in mass e ffect - TTE 08/10: LVF normal, EF 60%. Technically limited study, cannot r/o small righ t to left shunting - KASSI 08/15: No evidence of interatrial shunting by color Doppler or agitated seferino ine contrast studies. No evidence of intracardiac thrombus, vegetation, or mass. Normal left ventricular size and systolic function. Estimated ejection fraction of 65%. No segmental wall motion abnormalities. Probably normal right ventricu lar size and contractility. Normal biatrial size. No hemodynamically significant valvular abnormalities. 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 hypercoagulable state - Arterial hypercoaguable workup: Cardiolipin antibodies negative, Beta 2 GP IgM /IgG negative, Hex lupus AC pending - PET 08/15: No discrete hypermetabolic mass or metastatic disease - Records requested from outpatient abseiling instructor to indicate the reasoning for o ngoing DAPT. Last visit 03/2022. No clear indication noted Plan: > Plan for Eliquis 10-14 days following initial presentation > Cont aspirin, atorvastatin, Keppra. Holding ASSEMBLY PERSON plavix for peg tube placement (08/15 - ) > Anticipate discontinuing plavix and cont single agent antiplatelet therapy with ASA and AC per neuro's recs on 08/23 > Rehab medicine consulted - PT/OT recommending inpatient care > CLINICAL RESEARCH SPEC following - plan peg tube placement 08/20 > 30 day cardiac event monitor or ILR at discharge HTN HLD CAD s/p CABG x5(2009) - Echo 08/10 with EF 60%, no WMA or ventricle dysfunction - Lipid panel: LDL 106, HDL 29 - Troponin, BNPWNL -SBP goal:< 160 per neuro Plan: > Cont amlodipine and statin CKD stage 3 - BaselineCr~1.8-2 - Creat stable near baseline Fever - resolved -08/10febrileupto 38.4 -BCs: NGTD -MRSA neg, CXR without consolidation, Procal 0.11 -Sputum culture with normal oropharyngeal hood -UA 2+ leuks, 20-50 WBCs, culture NGTD -Vanc/zosyninitially started and narrowed torocephin for possible UTI - s/p rocephin 08/11-08/13 Hypothyroidism > Cont ASSEMBLY PERSON levothyroxine Rash - Dry, red macular rash noted to entire back Plan: > Cont Emollient cream Pulmonary nodules - Incidental finding - Multiple subcentimeter pulmonary nodules, indeterminant on initial examination . No dominant pulmonary mass Plan: > Follow-up CT chest in 3 months recommended to evaluate for stability Concern for hypopharyngeal mass - ENT consulted - CT neck reviewed without evidence of mass Acute urinary retention - Likely neurogenic due to stroke - Requiring freq SCs. Lake placed 08/13 Plan: > Cont doxazosin 1mg daily (unable to use Flomax due to Corpak) > Repeat voiding trial next week Agitation - Noted to have increased delirium and agitation at night - Required PO Seroquel and mitts on 08/15 Plan: > Melatonin 5mg QHS, trazodone 25mg QHS PRN FEN -No IVFs -Daily labs -Diet: TFs via Corp[place], trial ice chips as ordered PPx: Heparin Code Status: Full Code Disposition: Continue inpatient care. Rehab medicine consulted - PT/OT recommend ing inpatient care. requesting rehab facility near [place], [place] Barriers to discharge: Corpak; unable to place peg tube until Plavix has been he ld for 5 days Angeline Parra APRN, CONFERENCE CONCIERGE-C [phone] Willis Subjective Patient assessed at the bedside today. Alert today, attempting to remove his celso ts. Cannot say his name. Patient lifted both arms and wiggle his toes on command . Would not shake his head "yes or no." Unable to obtain hx due to severe aphasi a. updated over the phone. Unable to complete a comprehensive 14 point review of organ systems due to patie nt condition Medications Scheduled Meds:amLODIPine (NORVASC) tablet 10 mg, 10 mg, Per NG tube, QDAY aspirin EC tablet 81 mg, 81 mg, Oral, QDAY atorvastatin (LIPITOR) tablet 80 mg, 80 mg, Per NG tube, QDAY chlorhexidine gluconate (PERIDEX) 0.12 % solution 15 mL, 15 mL, Swish & Spit, BID(8-20) senna (SENOKOT) oral syrup 8.8 mg, 8.8 mg, Per NG tube, BID And docusate sodium (COLACE) oral solution 50 mg, 50 mg, Oral, BID doxazosin (CARDURA) tablet 1 mg, 1 mg, Per NG tube, QDAY heparin (porcine) PF syringe 5,000 Units, 5,000 Units, Subcutaneous, Q8H levETIRAcetam (KEPPRA) oral solution 500 mg, 500 mg, Oral, BID levothyroxine (SYNTHROID) tablet 112 mcg, 112 mcg, Per NG tube, QDAY(07) milk of magnesium oral suspension 30 mL, 30 mL, Oral, QDAY Continuous Infusions: Diet Enteral Feeding Standard Infusion 60 mL/hr at 08/16/22 0352 PRN and Respiratory Meds:acetaminophen Q4H PRN, emollient PRN, labetalol (NORMOD YNE; TRANDATE) injection Q6H PRN, pancrelipase 20,880 Units/sodium bicarbonate 6 50 mg (KU CLOG DESTROYER) PRN (News Producer from Rx) Objective Vital Signs: Last Filed Vital Signs: 24 Gladis r Range BP: 138/81 (08/16 418) Temp: 36.7 C (98 F) (08/16 418) Pulse: 59 (08/16 418) Respirations: 18 PER MINUTE (08/16 418) SpO2: 96 % (08/16 418) O2 Device: None (Room air) (08/16 418) Height: 172.7 cm (5' 7.99") (08/15 1324) BP: (134-163)/(70-86) Temp: [36.4 C (97.5 F)-36.7 C (98 F)] Pulse: [59-77] Respirations: [15 PER MINUTE-18 PER MINUTE] SpO2: [94 %-100 %] O2 Device: None (Room air) Vitals: 08/10/22 0700 08/15/22 1010 08/15/22 1325 Weight: 99.7 kg (219 lb 12.8 oz) 96.6 kg (212 lb 15.4 oz) 96.2 kg (212 lb) Intake/Output Summary: (Last 24 hours) Intake/Output Summary (Last 24 hours) at 08/16/2022 0751 Last data filed at 08/16/2022 0350 Gross per 24 hour Intake 702 ml Output 1700 ml Net -998 ml Stool Occurrence: 0 Physical Exam General: Alert, restless, appears stated age Head: Normocephalic, without obvious abnormality, atraumatic Eyes: Conjunctivae/corneas clear. PERRL, EOMs intact Nose: Nares normal. Corpak in place Throat: Lips, mucosa and tongue moist Neck: Symmetrical Back: Symmetric, no curvature Lungs: Clear to auscultation bilaterally Heart: Regular rate and rhythm, S1, S2 normal, no murmur, click rub or gallop Abdomen: Soft, non-tender. Bowel sounds normal. No masses Extremities: Extremities normal, atraumatic, no cyanosis or edema Pulses: 2+ and symmetric in b/l radials Skin: Skin color, texture, turgor normal. No rashes or lesions Neurologic: Aphasic, strength 4/5 in all extremities Lab Review 24-hour labs: Results for orders placed or performed during the hospital encounter of 08/09/22 (from the past 24 hour(s)) CBC Collection Time: 08/16/22 6:56 AM Result Value Ref Range White Blood Cells 7.4 4.5 - 11.0 K/UL RBC 4.63 4.4 - 5.5 M/UL Hemoglobin 13.9 13.5 - 16.5 GM/DL Hematocrit 41.7 40 - 50 % MCV 90.1 80 - 100 FL MCH 29.9 26 - 34 PG MCHC 33.2 32.0 - 36.0 G/DL RDW 13.9 11 - 15 % Platelet Count 256 150 - 400 K/UL MPV 9.0 7 - 11 FL BASIC METABOLIC PANEL Collection Time: 08/16/22 6:56 AM Result Value Ref Range Sodium 139 137 - 147 MMOL/L Potassium 3.5 3.5 - 5.1 MMOL/L Chloride 104 98 - 110 MMOL/L CO2 26 21 - 30 MMOL/L Anion Gap 9 3 - 12 Glucose 137 (H) 70 - 100 MG/DL Blood Urea Nitrogen 39 (H) 7 - 25 MG/DL Creatinine 1.70 (H) 0.4 - 1.24 MG/DL Calcium 8.8 8.5 - 10.6 MG/DL eGFR 41 (L) >60 mL/min Point of Care Testing (Last 24 hours): NA Glucose: (!) 137 (08/16/22 0656) Radiology and other Diagnostics Review: Pertinent radiology reviewed. Angeline Parra APRN-CONFERENCE CONCIERGE Pager [phone] ING WORKER Associated attestation - Ankush Willis DO - 08/16/2022 2:15 PM HEATING WORKER ATTESTATION I personally performed the tineo elements of the E/M service, discussed case with CONFERENCE CONCIERGE Angeline Parra and concur with documentation of history, physical exam, assessment, and treatment plan unless otherwise noted. KASSI without evidence of shunt. Await PEG placement next Saturday after plavix hold for 5 days. Staff name: Ankush Willis DO Date: 08/16/2022 * Jonn Cabral RN - 08/15/2022 10:56 PM CST 2248: I reached out to MP-S CONFERENCE CONCIERGE provider Star Leblanc as pt is increasingly im pulsive, attempting to get OOB, pulling at lines/drains; received orders for b/l mitts, seroquel 50 mg once. ING WORKER * Sha Mata RT - 08/15/2022 5:34 PM CST RT Adult Assessment Note NAME:Derek Castro Jr. :1945 AGE: 77 y.o. ADMISSION DATE: 08/09/2022 DAYS ADMITTED: LOS: 6 days RT Treatment Plan: Protocol Plan: Procedures NTS: Discontinued Oxygen/Humidity: Discontinued SpO2: Continuous (Document SpO2 result Qshift) Additional Comments: Impressions of the patient: Upon observation, patient is resting comfortable in bed on RA. No shortness of air noted or endorsed by the patient. Secretions are minimal. No respiratory complaints at this time. Vital Signs: Pulse: 61 RR: 18 PER MINUTE SpO2: 96 % O2 Device: None (Room air) Liter Flow: O2%: Breath Sounds: Decreased Respiratory Effort: ING WORKER * Myra Herndon APRN-NP - 08/15/2022 11:30 AM CST Rehabilitation Medicine Follow Up Name: Derek Castro Jr. : 1945 Age: 77 y.o. Admission Date: 08/09/2022 LOS: 6 days Date of Service: 08/15/2022 Precautions: Fall, seizure, aspiration Weight Bearing Precautions: WBAT Assessment & Plan: Principal Problem: Acute ischemic left MCA stroke (HCC) Active Problems: CAD (coronary artery disease) Stage 3b chronic kidney disease (HCC) Hyperlipidemia Primary hypertension Hypothyroidism Seizure disorder (HCC) History of multiple strokes Global aphasia Acute right hemiparesis (HCC) Gait abnormality Impaired mobility/ADLs Impaired transfers Cognitive Deficits Derek Castro Jr. is a 77 y.o. year old male admitted to [facility] on 08/09/2022 with the following issues: stroke - Left MCA s/p thrombectomy with TICI 3 obtained Assessment and Recommendations: Post-acute care rehabilitation needs: Acute inpatient rehabilitation Patients medical complexity with recent Left MCA CVA, in the setting of prior Right MCA CVA warrants daily physician oversight and functional goals consiste nt with intensive rehabilitation in acute inpatient rehabilitation. While patien t likely has medical complexity, please note patient will need to be tolerating per PEG intake. Impaired gait/mobility/transfers: The patient will benefit from continued work with PT to address mobility deficit s Impaired ADLs: The patient will benefit from ongoing OT to address functional deficits Dysphagia: Anticipating PEG placement today He would continue to benefit from CLINICAL RESEARCH SPEC for dysphagia management at next level of care Aphagia: The patient would benefit from continued CLINICAL RESEARCH SPEC for cognitive/Communication deficit s Thank you for allowing us to participate in the care of this patient. Please charlie l us with questions or concerns. DANY Pierre, AP-PMN Nurse Practitioner, Rehab Medicine Available via [employer] M-F 8-4 p Subjective Derek Castro Jr. is a 77 y.o. male with history of CAD, multiple CVAs, admitted w ith Left MCA CVA s/p thrombectomy with TICI 3 obtained. Patient is seen in follow up for post acute rehab recommendations. Patient is s/ p PEG this date. He has had notable progress with PT and OT services- able to to lerate two sessions/day with increase in function. He ambulated 30 ft with OT (m in A x1) this date- to the sink with HH assistance. With moderate assistance for bed mobility. He continues to be NPO, with PEG placement this date for nutrition. Last BM yest erday. No documented UOP since yesterday am. Medications Scheduled Meds:amLODIPine (NORVASC) tablet 10 mg, 10 mg, Per NG tube, QDAY aspirin EC tablet 81 mg, 81 mg, Oral, QDAY atorvastatin (LIPITOR) tablet 80 mg, 80 mg, Per NG tube, QDAY chlorhexidine gluconate (PERIDEX) 0.12 % solution 15 mL, 15 mL, Swish & Spit, BID(02-17) senna (SENOKOT) oral syrup 8.8 mg, 8.8 mg, Per NG tube, BID And docusate sodium (COLACE) oral solution 50 mg, 50 mg, Oral, BID doxazosin (CARDURA) tablet 1 mg, 1 mg, Per NG tube, QDAY heparin (porcine) PF syringe 5,000 Units, 5,000 Units, Subcutaneous, Q8H levETIRAcetam (KEPPRA) oral solution 500 mg, 500 mg, Oral, BID levothyroxine (SYNTHROID) tablet 112 mcg, 112 mcg, Per NG tube, QDAY() milk of magnesium oral suspension 30 mL, 30 mL, Oral, QDAY Continuous Infusions: Diet Enteral Feeding Standard Infusion PRN and Respiratory Meds:acetaminophen Q4H PRN, emollient PRN, labetalol (NORMOD YNE; TRANDATE) injection Q6H PRN, pancrelipase 20,880 Units/sodium bicarbonate 6 50 mg (KU CLOG DESTROYER) PRN (News Producer from [employer]) Review of Systems: Pertinent positives noted above in HPI Objective: Impairments: cognitive impairments, communication deficits, dysphagia, hemiplegi a, loss of coordination and weakness. Activity Limitations: eating, grooming, bathing, dressing - upper, dressing - l ower, toileting, transfers, ambulation, wheelchair, comprehension, expression an d problem solving Participation Restrictions: unable to return home safely Family / Patient Dispositional Goals: return home with family assistance Barriers/Facilitators: Barriers: High burden of care Facilitators: good home setup, good family / social support, improving strength / endurance and improving medical condition Rehabilitation Prognosis: Fair to good Tolerance for three hours of therapy a day: Fair to good Overall Functional Goals Gait and mobility Min A Transfers Min A Upper body dressing Mod-I Lower body dressing Min A Toileting Min A Bathing Min A Cognition / Communication Speech therapy will evaluate and treat cognition and c ommunication deficits and assess for safe swallow Current Level Of Function: PT Gait:Gait Distance: 120 feet Gait: Assistance Level: Moderate Assist, of 1st person, Standby Assist, of 2nd person Gait: Assistive Device: Hand Hold Assist, Wheelchair Follow Bed Mobility/Transfers Bed Mobility: Rolling: Maximum Assist, Verbal Cues, Bed Flat, Safety Considerati ons, Assist with Trunk, Assist with B LE (Max toward left, Min toward right.) Bed Mobility: Supine to Sit: Moderate Assist, Assist with Trunk Transfer Type: Sit to Stand Transfer: Assistance Level: From, Bed, Minimal Assist, x2 People Transfer: Assistive Device: Hand Hold Assist Transfers: Type Of Assistance: For Strength Deficit, For Balance, For Safety Con siderations Other Transfer Type: Stand to Sit Other Transfer: Assistance Level: To, Bed, Moderate Assist Other Transfer: Assistive Device: Hand Hold Assist Other Transfer: Type Of Assistance: Verbal Cues, For Balance, For Strength Defic it (loss of balance) End Of Activity Status: In Bed, Nursing Notified, Instructed Patient to Request Assist with Mobility, Instructed Patient to Use Call Light (bed alarm active) OT ADL's Where Assessed: In Bathroom, Edge of Bed Grooming Assist: Minimal Assist Grooming Deficits: Setup, Wash/Dry Face UE Dressing Assist: Total Assist LE Dressing Assist: Total Assist LE Dressing Deficits: Don/Doff R Sock, Don/Doff L Sock Toileting Assist: Minimal Assist Toileting Deficits: Steadying Comment: setup of washcloth to wash face seated in chair at sink CLINICAL RESEARCH SPEC SWALLOW EVALUATION SUMMARY Plan: 3-5 x/week Prognosis: Guarded Vital Signs: Last Filed Vital Signs: 24 Gladis r Range BP: 146/86 (08/15 752) Temp: 36.4 C (97.5 F) (08/15 752) Pulse: 64 (08/15 752) Respirations: 16 PER MINUTE (08/15 752) SpO2: 95 % (08/15 752) O2 Device: None (Room air) (08/15 752) BP: (136-146)/(69-86) Temp: [36.4 C (97.5 F)-37.6 C (99.6 F)] Pulse: [62-75] Respirations: [14 PER MINUTE-18 PER MINUTE] SpO2: [93 %-97 %] O2 Device: None (Room air) PAINAD Total Score: 0 (08/15/22 0930) Vitals: 08/09/22 1715 08/10/22 0700 08/15/22 1010 Weight: 97.4 kg (214 lb 11.7 oz) 99.7 kg (219 lb 12.8 oz) 96.6 kg (212 lb 15.4 o z) Intake/Output Summary: (Last 24 hours) Intake/Output Summary (Last 24 hours) at 08/15/2022 1333 Last data filed at 08/15/2022 0930 Gross per 24 hour Intake 120 ml Output 851 ml Net -731 ml Stool Occurrence: 0 Physical Exam: BP: 146/86 (08/15 752) Temp: 36.4 C (97.5 F) (08/15 752) Pulse: 64 (08/15 752) Respirations: 16 PER MINUTE (08/15 752) SpO2: 95 % (08/15 752) O2 Device: None (Room air) (08/15 752) Body mass index is 32.39 kg/m. Gen: Aphagic; Older male in hospital bed in NAD HEENT: EOMI- midgaze with left gaze preference Heart: Extremities well perfused, no noted edema Lungs: non labored breathing, on room air Abdomen: Soft, non-tender Skin: no gross lesions appreciated Ext: Right hemiparesis Neuro: Cranial Nerves Face with right paresis; Midline gaze with left gaze preference; Memory/Cognition/Speech Nonverbal; follows one step commands inconsistently Intake/Output Summary (Last 24 hours) at 08/15/2022 1333 Last data filed at 08/15/2022 0930 Gross per 24 hour Intake 120 ml Output 851 ml Net -731 ml Hematology: Lab Results Component Value Date HGB 13.9 08/15/2022 HCT 42.0 08/15/2022 PLTCT 243 08/15/2022 WBC 6.9 08/15/2022 NEUT 71 08/14/2022 ANC 6.61 08/14/2022 ALC 0.97 08/14/2022 NEL 12 08/14/2022 AMC 1.13 08/14/2022 ABC 0.04 08/14/2022 MCV 91.0 08/15/2022 MCHC 33.1 08/15/2022 MPV 9.2 08/15/2022 RDW 14.2 08/15/2022 , Coagulation: No results found for: PT, PTT, INR and General Chemistry: Lab Results Component Value Date NA 142 08/15/2022 K 4.0 08/15/2022 CL 106 08/15/2022 GAP 9 08/15/2022 BUN 34 08/15/2022 CR 1.77 08/15/2022 GLU 85 08/15/2022 CA 9.3 08/15/2022 ALBUMIN 3.7 08/09/2022 LACTIC 1.2 08/10/2022 OBSCA 1.20 08/13/2022 MG 2.0 08/13/2022 TOTBILI 0.7 08/09/2022 Point of Care Testing (Last 24 hours) Glucose: 85 (08/15/22 0611) Radiology and other Diagnostics Review: Pertinent radiology reviewed. Myra Herndon, ELECTRICIAN SHOP-CONFERENCE CONCIERGE, AP-PMN Nurse Practitioner, Rehab Medicine Available via [employer] or [employer] M-F 8-4 p Total Time Today was 35 minutes in the following activities: Preparing to see th e patient, Performing a medically appropriate examination and/or evaluation, Cou nseling and educating the patient/family/caregiver, Referring and communication with other health live in caregiver (when not separately reported), Documenting clinical information in the electronic or other health record and Care coordina tion (not separately reported) ING WORKER * Crista Mclean, CHRIS - 08/15/2022 11:03 AM CST OCCUPATIONAL THERAPY PROGRESS NOTE Name: Derek Castro Jr. : 1945 Age: 77 y.o. Admission Date: 08/09/2022 LOS: 6 days Date of Service: 08/15/2022 Mobility Patient Turn/Position: (working with therapy) Progressive Mobility Level: Walk in room Distance Walked (feet): 30 ft Level of Assistance: Assist X1 Assistive Device: Hand Held Activity Limited By: Weakness;Mental Status Variability Subjective Pertinent Dx per Physician: 77 y.o. male with a PMH of HTN, CAD s/p CABG, CKD, s eizures, and multiple ischemic strokes (2019, May 2022 and Jul 2022) with residu al LUE ataxia who was found slumped over in a chair on 08/09 with right sided weak ness and aphasia. LKW 1130. NIH was 22. He was taken to an OSH where CT/CTA show ed a left M2 occlusion. He was not a TNK candidate due to recent stroke so he wa s then transferred to [facility] and taken for thrombectomy. TICI 3 was obtained and patient was admitted to [facility] post op Precautions: Standard;Falls (SBP < 160) Pain / Complaints: Patient demonstrates no signs of pain;Unable to rate Objective Psychosocial Status: Willing and Cooperative to Participate Home Living Type of Home: House Home Layout: Able to Live on Main Level w/Bedrm/Bathrm Access Bathroom Shower / Tub: Tub/Shower Unit Bathroom Toilet: Standard Prior Function Level Of [place]: Independent with ADLs and functional transfers;Independen t with homemaking w/ ambulation Lives With: Spouse Receives Help From: None Needed Other Function Comments: Information gathered from EMR as patient unable to prov marisel. Patient typically independent in ADLs without use of device. ADL's Grooming Assist: Minimal Assist Grooming Deficits: Setup;Wash/Dry Face Comment: setup of washcloth to wash face seated in chair at sink ADL Mobility Bed Mobility: Supine to Sit: Moderate assist Bed Mobility Comments: assist for trunk and verbal cues for sequencing Transfer Type: Sit to/from stand Transfer: Assistance Level: From;Bed;Bedside chair;Minimal assist;Moderate hugo t Transfer: Assistive Device: Hand hold assist End of Activity Status: In bed;Instructed patient to request assist with mobilit y;Instructed patient to use call light Transfer Comments: intermittent verbal cues for safety Gait Distance: 30 feet Gait: Assistance Level: Minimal assist Gait: Assistive Device: Hand hold assist Gait Comments: ambulates to/from sink with HH assist Activity Tolerance Endurance: 3/5 Tolerates 25-30 Minutes Exercise w/Multiple Rests Assessment Assessment: Decreased ADL Status;Decreased UE ROM;Decreased UE Strength;Decrease d Safe/Judg during ADL;Decreased Cognition;Decreased Endurance;Visual Deficit;De creased Fine Motor Coordination;Decreased High-Level ADLs;Decreased Self-Care Tr ans;Non-Functional R UE Prognosis: Good;w/Cont OT s/p Acute Discharge Goal Formulation: Patient AM-PAC 6 Clicks Daily Activity Inpatient Putting on and taking off regular lower body clothes: A Lot Bathing (Including washing, rinsing, drying): A Lot Toileting, which includes using toilet, bedpan, or urinal: A Lot Putting on and taking off regular upper body clothing: A Lot Taking care of personal grooming such as brushing teeth: A Lot Eating meals: Total Daily Activity Raw Score: 11 Standardized (T-scale) Score: 29.04 Plan Progress: Progressing Toward Goals OT Frequency: 5x/week OT Plan for Next Visit: Command following; AROM/MMT of RUE; progress mobility as able; automatic ADLs at sink ADL Goals Patient Will Perform Grooming: w/ Minimum Assist;at Edge of Bed Patient Will Perform UE Dressing: In Chair;w/ Stand By Assist Patient Will Perform LE Dressing: w/ Moderate Assist;In Chair Functional Transfer Goals Pt Will Transfer To Bedside Commode: w/ Moderate Assist OT Discharge Recommendations Recommendation: Inpatient setting;Recommend rehab medicine consult Therapist: MATTHEW Flores [id number] Date: 08/15/2022 ING WORKER * Mariana Waterman RD - 08/15/2022 10:01 AM CST CLINICAL NUTRITION Clinical Nutrition Follow-Up Assessment Name: Derek Castro Jr. : 1945 Age: 77 y.o. Admission Date: 08/09/2022 LOS: 6 days Date of Service: 08/15/2022 Recommendation: Once PEG tube placed, RD REC restart continuous feeds but adjust as follows: Isosource 1.5 at 65 mL/hr x 22 hours (2-hour hold for Synthroid). At goal provides 2145 kcal (100% needs), 97 g/protein (100% needs) and 1092 m L of free water. REC flush 200 mL water q4h. EN and all water flushes provide 2292 mL/water/day for 107% needs which is co nsistent with water flushes of current tube feeding order. Fluids are ultimately deferred to primary team. If bolus tube feeds are desired, REC bolus 5.5 cartons if Isosource 1.5 daily . Bolus 1.5 cartons (375 mL) TID (02/10/16) and 1 carton (250 mL) once daily (20 ). Would bolus cartons (125 mL) for first 2 feedings. If tolerated, bolus 1 carton (250 mL) for next 2 feedings. If tolerated, increase to goal rate. At goal provides 2062 kcal (100% needs), 94 g/pro (100% needs) and 1050 mL of free water. REC flush 60 mL before and after each feeding and flush an additional 250 mL BID for hydration but not at the same time as tube feeds to keep volume low. EN and all water flushes provide 2030 mL/water/day 99% needs). Fluids are ultimately deferred to primary team. REC adjust tube feeding if diet able to advance and po intake improves. Note pt is on multiple scheduled laxatives. If bowels become runny, would ch kar to prn. The nutrition-related order modifications are made in communication with the [facility] service, who remains responsible for the orders and overall care of the [facility] ient. Comments: RD following pt to management of EN. Pt lying in bed at time of RD visit. Awak e but not communicative. Per nursing, no issues with tube feeding. Per CLINICAL RESEARCH SPEC shira dominguez 08/13 pt is to remain NPO, prognosis fair, long-term EN has been REC. Pt dustin nues with Corpak but is to have PEG placed near future. NPO today 08/15 for KASSI and PET scan. Note tube feed was held both 08/13 and 08/14 (for possible procedur es/PEG placement?) Once PEG tube placed, RD REC restart continuous feeds but adjust as follows: Is osource 1.5 at 65 mL/hr x 22 hours (2-hour hold for Synthroid). At goal provide s 2145 kcal (100% needs), 97 g/protein (100% needs) and 1092 mL of free water. REC flush 200 mL water q4h. EN and all water flushes provide 2292 mL/water/day for 107% needs. Fluids are ultimately deferred to primary team. If bolus tube feeds are desired, REC bolus 5.5 cartons if Isosource 1.5 daily. Bolus 1.5 cartons (375 mL) TID (02/10/16) and 1 carton (250 mL) once daily (20). Would bolus cartons (125 mL) for first 2 feedings. If tolerated, bolus 1 ca rton (250 mL) for next 2 feedings. If tolerated, increase to goal rate. At goa l provides 2062 kcal (100% needs), 94 g/pro (100% needs) and 1050 mL of free yolette er. REC flush 60 mL before and after each feeding and flush an additional 250 m L BID for hydration but not at the same time as tube feeds to keep volume low. EN and all water flushes provide 2030 mL/water/day 99% needs). Fluids are ultim ately deferred to primary team. REC adjust tube feeding if diet able to advance and po intake improves. [facility] nutrition following per protocol. Nutrition Assessment of Patient: Admit Weight: 97.4 kg; Weight Change Since Admit: RD ordered new weight BMI (Calculated): 33.43; BMI Categories Adult: Obesity Class I: 30-34.9 Pertinent Allergies/Intolerances: NKFA Pertinent Labs: BUN 34, Crea 1.77, GFR 39; Pertinent Meds: Senna nd colace BID, Synthroid, MOM; Current EN Order: Isosource 1.5 at 60 mL/hr x 22 hours + 1 packet Prosource per day Current Oral Intake: NPO Intake Comment: 2-day average 08/13 to 08/14 = 599 mL (EN and Prosource was held b y provider both days) Intake (calories) Daily Average : 899 kilocalories (48%) Intake (protein) Daily Average : 41 grams (45%) Estimated Calorie Needs: 6864-7070 (25-30kcal/kg DBW) Estimated Protein Needs: 90-111g (1.2-1.5g/kg DBW) Malnutrition Assessment: Does not meet criteria Nutrition Focused Physical Assessment: Loss of Subcutaneous Fat: No; Muscle Wasting: No; Edema: Yes; Severity: Mild; Location: Left, Lower extremities, Right, Upper extr emities Pressure Injury: None noted Comment: + BM 08/13 Nutrition Diagnosis: Inadequate oral intake Etiology: NPO due to aspiration risk Signs & Symptoms: Need for EN to meet 100% of needs Intervention / Plan: EN RECS, Monitor EN for tolerance Monitor diet progression, monitor wt trends Monitor GI issues, meds and labs as needed Goals: EN tolerated and meeting >75% of nutritional needs Time Frame: Within 72 hours Status: Partially met;New timeframe established EN tolerated and meeting >75% of nutritional needs Time Frame: Throughout stay Clinical Dietitian: Mariana Waterman RD, LD Available on [employer] ING WORKER * Eb Jennings, PT - 08/15/2022 9:13 AM CST PHYSICAL THERAPY PROGRESS NOTE Name: Derek Castro Jr. : 1945 Age: 77 y.o. Admission Date: 08/09/2022 LOS: 6 days Date of Service: 08/15/2022 Mobility Patient Turn/Position: Supine Progressive Mobility Level: Walk in hallway Distance Walked (feet): 120 ft Level of Assistance: Assist X2 Assistive Device: Hand Held Activity Limited By: Mental Status Variability Subjective Significant hospital events: 77 y.o. male with a PMH of HTN, CAD s/p CABG, CKD, seizures, and multiple ischemic strokes (May 2022 and Jul 2022) with resid ual LUE ataxia who was found slumped over in a chair on 08/09 with right sided wea kness and aphasia. LKW 1130. NIH was 22. He was taken to an OSH where CT/CTA rosa maria wed a left M2 occlusion. He was not a TNK candidate due to recent stroke so he w as then transferred to [facility] and taken for thrombectomy. TICI 3 was obtained and patient was admitted to [facility] post op. Patient transferred to the IM service on . Patient with ongoing severe dysphagia and aphasia. Plan for peg tube placem ent 08/14. Mental / Cognitive Status: Alert (aphasic) Persons Present: RehabTechnician Pain: Patient demonstrates no signs of pain Pain Interventions: Patient agrees to participate in therapy Comments: SBP <160; [place]; [place] Ambulation Assist: Independent Mobility in Community without Device Home Situation: Lives with Family Type of Home: House Entry Stairs: Ramp In-Home Stairs: Able to Live on One Level Comments: Patient unable to give PLOF or home setup, information gathered from E MR. Per chart, patient independent with mobility and ADLs without a device prior to admit. 08/15 RN reports impulsivity this morning with pulling lines and is hesitant for patient to be left sitting up in chair so patient returned to bed post activity. ROM Cervical ROM: WFL ROM Comments: tight R hand grasp but able to open fist Posture/Neurological Posture: Rotation of head/neck;Side bending of head/neck Bed Mobility/Transfer Bed Mobility: Supine to Sit: Moderate Assist;Assist with Trunk Transfer Type: Sit to Stand Transfer: Assistance Level: From;Bed;Minimal Assist;x2 People Transfer: Assistive Device: Hand Hold Assist Transfers: Type Of Assistance: For Strength Deficit;For Balance;For Safety Consi derations Other Transfer Type: Stand to Sit Other Transfer: Assistance Level: To;Bed;Moderate Assist Other Transfer: Assistive Device: Hand Hold Assist Other Transfer: Type Of Assistance: Verbal Cues;For Balance;For Strength Deficit (loss of balance) End Of Activity Status: In Bed;Nursing Notified;Instructed Patient to Request As sist with Mobility;Instructed Patient to Use Call Light (bed alarm active) Balance Sitting Balance: Static Sitting Balance;Dynamic Sitting Balance;2 UE Support;Min imal Assist Standing Balance: Static Standing Balance;Dynamic Standing Balance;1 UE support; Moderate Assist Gait Gait Distance: 120 feet Gait: Assistance Level: Moderate Assist;of 1st person;Standby Assist;of 2nd pers on Gait: Assistive Device: Hand Hold Assist;Wheelchair Follow Gait: Descriptors: Decreased foot clearance RLE;Decreased foot clearance LLE;Pac e: Slow;Pathway deviations;Decreased knee flexion in pre-swing RLE;Decreased kne e flexion in pre-swing LLE;Loss of balance;Variable step length (crosses midlin e w/staggering and asymmetric gait /step lengths) Education Persons Educated: Patient Patient Barriers To Learning: Cognitive Deficits;Impaired Communication;Family N ot Present Interventions: Repetition of Instructions Teaching Methods: Verbal Instruction;Demonstration Patient Response: More Instruction Required;Return Demonstration Topics: Plan/Goals of PT Interventions;Mobility Progression Assessment/Progress Impaired Mobility Due To: Cognitive Deficits;Impaired Balance;Decreased Strength ;Medical Status Limitation Impaired Strength Due To: Medical Status Limitation;Cognitive Deficits Assessment/Progress: Should Improve w/ Continued PT Above impairments functionally limit bed mobility, transfers, gait and stairs ne gotiation. Major limiting factor(s) to mobility progression is/are balance impai rment and cognitive impairment. Bed mobility and Sit<>stand transfer demonstrate impaired balance, and weakness of gluteal and abdominal muscles, requiring 2-person assist. Gait demonstrates impaired balance, leaning toward L then R side, diminished arm swing, narrow JORDY/decreased step width, poor perception of midline, staggering/ LOB, slow gait speed and decreased bilateral foot clearance and weakness of glut eal and abdominal muscles, requiring physical assist. Pt will require continued acute PT for bed mobility, transfer training, gait tra ining, strengthening, balance training, neuromuscular reeducation and coordinati on training. AM-PAC 6 Clicks Basic Mobility Inpatient Turning from your back to your side while in a flat bed without using bed rails: A Little Moving from lying on your back to sitting on the side of a flat bed without usin g bedrails : A Lot Moving to and from a bed to a chair (including a wheelchair): A Lot Standing up from a chair using your arms (e.g. wheelchair, or bedside chair): A Lot To walk in hospital room: A Lot Climbing 3-5 steps with a railing: Total Basic Mobility Inpatient Raw Score: 12 Standardized (T-scale) Score: 32.23 AM-[facility] Basic Mobility Functional Stage: -11.95-33 Limited Movement Functional Stages - Basic Mobility Score Interpretation 11.95 - 33 Limited Movement: Your score suggests you may have a lot of difficult y or are unable to get out of your bed, to stand for several minutes and/or to w alk short distances. You might have some difficulty completing the most basic mobility tasks including repositioning yourself in bed. Goals Goal Formulation: Patient Unable to Participate in Goal Setting Time For Goal Achievement: 5 days, To, 7 days Patient Will Go Supine To/From Sit: w/ Minimal Assist Patient Will Transfer Bed/Chair: w/ Stand By Assist Patient Will Transfer Sit to Stand: w/ Stand By Assist Patient Will Ambulate: 151-200 Feet, w/ No Device, w/ Stand By Assist Plan Treatment Interventions: Mobility Training;Neuromuscular Reeducation;Balance Act ivities;Coordination Training;Strengthening Plan Frequency: 5 Days per Week PT Plan for Next Visit: Gait as able; work on transfers. PT Discharge Recommendations Recommendation: Inpatient setting;Recommend rehab medicine consult Patient Currently Requires Physical Assist With: All mobility;All personal care ADLs;All home functioning ADLs Therapist: Eb Jennings PT, DPT [id number] Date: 08/15/2022 ING WORKER * Angeline Parra APRN-AZ - 08/15/2022 7:40 AM CST General Progress Note Name: Derek Castro Today's Date: 08/15/2022 Admission Date: 08/09/2022 LOS: 6 days Assessment/Plan: Principal Problem: Acute ischemic left MCA stroke (HCC) Active Problems: CAD (coronary artery disease) Stage 3b chronic kidney disease (HCC) Hyperlipidemia Primary hypertension Hypothyroidism Seizure disorder (HCC) History of multiple strokes Global aphasia Acute right hemiparesis (HCC) Assessment and Plan Derek Castro is a 77 yo male with a PMHx of HTN/HLD,CAD s/pCABG x5 in 2009, RLE DVT,CKD stage 3, seizures,multiple ischemic strokes(2019,May 2022, Jul 2022) with residual LUE ataxia, hypothyroidism who presented to an OSH ([facility]) on 2/9 for right sided weakness and aphasia. CT/CTA showed a left M2 occlusion. He was not a TNK candidate due to recent stroke, so he was transf erred to [facility] for further management. He is now s/p thrombectomy and was admitt ed to the [facility] post-op. Patient transferred to the IM service on 08/13. Patient hunter s ongoing severe dysphagia and aphasia. Plan for peg tube placement 08/20. Left M2 occlusions/p IRw/ aTICI3 Basal ganglia infarct Chronicvertebral artery occlusion Severe dysphagia and aphasia Hx of multiple ischemic strokes(2019, R MCA 05/2022, L NILA 07/2022) Seizures -Presented for sudden onset right sided weakness and aphasia, L gaze deviation -OSHCT head:L frontal subacute infarct and R fronto parietal chronic infar ct -OSHCTA:Left M2 MCA, distal reconstitution.Chronicocclusion of the cer vical right vertebral artery - MRI head 08/09: Acute moderate sized left MCA territory infarct with mild cortic al petechial type hemorrhage. No midline shift or herniation. Chronic right NILA and MCA territory infarcts, chronic left parietal lobe infarct, and small bilate ral cerebellar infarcts and left caudate head lacunar type infarct - MRA head 08/09: Interval reconstituted flow within previously occluded left M2 b ranch. No remaining large vessel occlusion is identified.Irregularity within t he left carotid siphon with at least mild associated stenosis, likely atheroscle rotic - CT head 08/10: EvolvingLMCA territory infarct, minimal petechial type hemor rhage.Chronic right NILA/MCA territory infarcts, chronic left parietal lobe inf arct, chronic small bilateral cerebellar infarcts, and chronic left caudate head lacunar-type infarcts. Chronic microvascular ischemic changes - CT head 08/11:Evolving L MCA territory infarct with slight increase in mass e ffect - TTE 08/10: LVF normal, EF 60%. Technically limited study, cannot r/o small righ t to left shunting - A1c 5.8%, LDL 106, on a statin ASSEMBLY PERSON - Etiology likely 2/2 embolic source vs. hypercoagulable state - Arterial hypercoaguable workup: Cardiolipin antibodies negative, Beta 2 GP IgM /IgG negative, Hex lupus AC pending Plan: > Plan for Eliquis 10-14 days following initial presentation > Cont aspirin, atorvastatin, Keppra. Holding ASSEMBLY PERSON plavix for peg tube placement (08/15 - ) > Records requested from outpatient abseiling instructor to indicate the reasoning for ongoing DAPT. Anticipate discontinuing plavix and cont single agent antiplatelet therapy with AC per neuro's recs > Rehab medicine consulted - PT/OT recommending inpatient care > CLINICAL RESEARCH SPEC following - plan peg tube placement 08/20 > KASSI ordered > 30 day cardiac event monitor or ILR at discharge > Whole body PET scan to evaluate for malignancy HTN HLD CAD s/p CABG x5(2009) - Echo 08/10 with EF 60%, no WMA or ventricle dysfunction - Lipid panel: LDL 106, HDL 29 - Troponin, BNPWNL -SBP goal:< 160 per neuro Plan: > Cont amlodipine and statin CKD stage 3 - BaselineCr~1.8-2 - Creat stable near baseline Fever - resolved -08/10febrileupto 38.4 -BCs: NGTD -MRSA neg, CXR without consolidation, Procal 0.11 -Sputum culture with normal oropharyngeal hood -UA 2+ leuks, 20-50 WBCs, culture NGTD -Vanc/zosyninitially started and narrowed torocephin for possible UTI - s/p rocephin 08/11-08/13 Hypothyroidism > Cont ASSEMBLY PERSON levothyroxine Rash - Dry, red macular rash noted to entire back Plan: > Cont Emollient cream Pulmonary nodules - Incidental finding - Multiple subcentimeter pulmonary nodules, indeterminant on initial examination . No dominant pulmonary mass Plan: > Follow-up CT chest in 3 months recommended to evaluate for stability Concern for hypopharyngeal mass - ENT consulted - CT neck reviewed without evidence of mass Acute urinary retention - Likely neurogenic due to stroke - Requiring freq SCs. Lake placed 08/13 Plan: > Cont doxazosin 1mg daily (unable to use Flomax due to Corpak) FEN -No IVFs -Daily labs -Diet: NPO for KASSI and PET. Okay to resume TFs following these procedures PPx: Heparin Code Status: Full Code Disposition: Continue inpatient care. Rehab medicine consulted - PT/OT recommend ing inpatient care Barriers to discharge: Corpak; unable to place peg tube until Plavix has been he ld for 5 days Angeline Parra APRN, CONFERENCE CONCIERGE-C [phone] Willis Subjective Patient assessed at the bedside today. Alert today. Attempted to mumble his name . Patient lifted both arms and wiggle his toes on command. Would not shake his h ead "yes or no." Unable to obtain hx due to severe aphasia. Unable to complete a comprehensive 14 point review of organ systems due to patie nt condition Medications Scheduled Meds:amLODIPine (NORVASC) tablet 10 mg, 10 mg, Per NG tube, QDAY aspirin EC tablet 81 mg, 81 mg, Oral, QDAY atorvastatin (LIPITOR) tablet 80 mg, 80 mg, Per NG tube, QDAY chlorhexidine gluconate (PERIDEX) 0.12 % solution 15 mL, 15 mL, Swish & Spit, BID(8-20) senna (SENOKOT) oral syrup 8.8 mg, 8.8 mg, Per NG tube, BID And docusate sodium (COLACE) oral solution 50 mg, 50 mg, Oral, BID doxazosin (CARDURA) tablet 1 mg, 1 mg, Per NG tube, QDAY [Held by Provider] heparin (porcine) PF syringe 5,000 Units, 5,000 Units, Subcut aneous, Q8H levETIRAcetam (KEPPRA) IV push 500 mg, 500 mg, Intravenous, BID levothyroxine (SYNTHROID) tablet 112 mcg, 112 mcg, Per NG tube, QDAY(07) milk of magnesium oral suspension 30 mL, 30 mL, Oral, QDAY [Held by Provider] Protein Supplement Packets, , SEE ADMIN INSTRUCTIONS, QDAY Continuous Infusions: Diet Enteral Feeding Standard Infusion 20 mL/hr at 08/14/22 1446 PRN and Respiratory Meds:acetaminophen Q4H PRN, emollient PRN, labetalol (NORMOD YNE; TRANDATE) injection Q6H PRN, pancrelipase 20,880 Units/sodium bicarbonate 6 50 mg (KU CLOG DESTROYER) PRN (News Producer from Rx) Objective Vital Signs: Last Filed Vital Signs: 24 Gladis r Range BP: 137/69 (08/15 320) Temp: 36.7 C (98 F) (08/15 320) Pulse: 62 (08/15 320) Respirations: 18 PER MINUTE (08/15 320) SpO2: 93 % (08/15 320) O2 Device: None (Room air) (08/15 320) SpO2 Pulse: 76 (08/14 1330) BP: (136-143)/(69-79) Temp: [36.6 C (97.9 F)-37.6 C (99.6 F)] Pulse: [62-75] Respirations: [12 PER MINUTE-18 PER MINUTE] SpO2: [92 %-97 %] O2 Device: None (Room air) Vitals: 08/09/22 1715 08/10/22 0700 Weight: 97.4 kg (214 lb 11.7 oz) 99.7 kg (219 lb 12.8 oz) Intake/Output Summary: (Last 24 hours) Intake/Output Summary (Last 24 hours) at 08/15/2022 0741 Last data filed at 08/14/2022 1626 Gross per 24 hour Intake 0 ml Output 201 ml Net -201 ml Stool Occurrence: 0 Physical Exam General: Alert, no distress, appears stated age Head: Normocephalic, without obvious abnormality, atraumatic Eyes: Conjunctivae/corneas clear. PERRL, EOMs intact Nose: Nares normal. Corpak in place Throat: Lips, mucosa and tongue moist Neck: Symmetrical Back: Symmetric, no curvature Lungs: Clear to auscultation bilaterally Heart: Regular rate and rhythm, S1, S2 normal, no murmur, click rub or gallop Abdomen: Soft, non-tender. Bowel sounds normal. No masses Extremities: Extremities normal, atraumatic, no cyanosis or edema Pulses: 2+ and symmetric in b/l radials Skin: Skin color, texture, turgor normal. No rashes or lesions Neurologic: Aphasic, strength 4/5 in all extremities Lab Review 24-hour labs: Results for orders placed or performed during the hospital encounter of 08/09/22 (from the past 24 hour(s)) BASIC METABOLIC PANEL Collection Time: 08/15/22 6:11 AM Result Value Ref Range Sodium 142 137 - 147 MMOL/L Potassium 4.0 3.5 - 5.1 MMOL/L Chloride 106 98 - 110 MMOL/L CO2 27 21 - 30 MMOL/L Anion Gap 9 3 - 12 Glucose 85 70 - 100 MG/DL Blood Urea Nitrogen 34 (H) 7 - 25 MG/DL Creatinine 1.77 (H) 0.4 - 1.24 MG/DL Calcium 9.3 8.5 - 10.6 MG/DL eGFR 39 (L) >60 mL/min CBC Collection Time: 08/15/22 6:11 AM Result Value Ref Range White Blood Cells 6.9 4.5 - 11.0 K/UL RBC 4.62 4.4 - 5.5 M/UL Hemoglobin 13.9 13.5 - 16.5 GM/DL Hematocrit 42.0 40 - 50 % MCV 91.0 80 - 100 FL MCH 30.1 26 - 34 PG MCHC 33.1 32.0 - 36.0 G/DL RDW 14.2 11 - 15 % Platelet Count 243 150 - 400 K/UL MPV 9.2 7 - 11 FL Point of Care Testing (Last 24 hours): NA Radiology and other Diagnostics Review: Pertinent radiology reviewed. Angeline Parra APRN-CONFERENCE CONCIERGE Pager [phone] ING WORKER Associated attestation - Ankush Willis DO - 08/15/2022 1:41 PM HEATING WORKER ATTESTATION I personally performed the tineo elements of the E/M service, discussed case with CONFERENCE CONCIERGE Angeline Parra and concur with documentation of history, physical exam, assessment, and treatment plan unless otherwise noted. PET scan without discrete hypermetabolic mass or metastatic disease. Staff name: Ankush Willis DO Date: 08/15/2022 * Jose Cleary, ROSENDO - 08/14/2022 5:56 PM CST 08/14/22 1700 Integumentary Lower Extremities Condition Hives (Right upper leg) Pelvic/Coccyx Color [place] Pelvic/Coccyx Condition Hives (Hives upper right LE up to groin) Notified Rocío Garcia NP. Not present at 1200 assessment. ING WORKER * Jacqueline Larose RN - 08/14/2022 1:53 PM CST Pt's IR Gastrostomy tube placement cancelled due to blood thinner not being held prior to procedure. Floor nurse and daughter, Lavern, notified. ING WORKER * Crista Mclean, CHRIS - 08/14/2022 1:32 PM CST OCCUPATIONAL THERAPY NOTE Attempted to see patient for occupational therapy. Patient is off the unit for p rocedlance and unavailable. Occupational therapy will continue to follow to provid e intervention as indicated[place]/L [id number] ING WORKER * Abbey Nava, PT - 08/14/2022 11:38 AM CST PHYSICAL THERAPY PROGRESS NOTE Name: Derek Castro Jr. : 1945 Age: 77 y.o. Admission Date: 08/09/2022 LOS: 5 days Date of Service: 08/14/2022 Mobility Patient Turn/Position: Chair Progressive Mobility Level: Walk in hallway Distance Walked (feet): 60 ft (then 10' and 40'; seated rest between each) Level of Assistance: Assist X1 Assistive Device: Hand Held Activity Limited By: Weakness;Mental Status Variability Subjective Significant hospital events: 77 y.o. male with a PMH of HTN, CAD s/p CABG, CKD, seizures, and multiple ischemic strokes (2019, May 2022 and Jul 2022) with resid ual LUE ataxia who was found slumped over in a chair on 08/09 with right sided wea kness and aphasia. LKW 1130. NIH was 22. He was taken to an OSH where CT/CTA rosa maria wed a left M2 occlusion. He was not a TNK candidate due to recent stroke so he w as then transferred to [facility] and taken for thrombectomy. TICI 3 was obtained and patient was admitted to [facility] post op Mental / Cognitive Status: Alert;Inconsistent with Command Following (aphasic) Pain: Patient demonstrates no signs of pain Ambulation Assist: Independent Mobility in Community without Device Home Situation: Lives with Family (Spouse) Type of Home: House Entry Stairs: Ramp In-Home Stairs: Able to Live on One Level Comments: Patient unable to give PLOF or home setup, information gathered from E MR. Per chart, patient independent with mobility and ADLs without a device prior to admit. Bed Mobility/Transfer Bed Mobility: Supine to Sit: Moderate Assist;Assist with Trunk;Head of Bed [place] earline;No Rail Transfer Type: Sit to/from Stand Transfer: Assistance Level: To/From;Bed;Bed Side Chair;Toilet;Minimal Assist Transfer: Assistive Device: Hand Hold Assist Transfers: Type Of Assistance: For Strength Deficit;For Balance;For Safety Consi derations End Of Activity Status: Up in Chair;Nursing Notified;Instructed Patient to Reque st Assist with Mobility;Instructed Patient to Use Call Light (Chair alarm active , sling placed under patient for nursing staff use) Balance Sitting Balance: Static Sitting Balance;No UE Support;Standby Assist Gait Gait Distance: 10 feet (then 60' and 40' with seated rest in between) Gait: Assistance Level: Minimal Assist Gait: Assistive Device: Hand Hold Assist Gait: Descriptors: Pace: Slow;Decreased foot clearance RLE;Decreased foot cleara nce LLE;Decreased step length;No balance loss Activity Limited By: Weakness Education Persons Educated: Patient Patient Barriers To Learning: Cognitive Deficits;Impaired Communication Interventions: Repetition of Instructions;Demonstration Provided Teaching Methods: Verbal Instruction;Demonstration Patient Response: More Instruction Required Topics: Plan/Goals of PT Interventions;Mobility Progression;Importance of Increa sing Activity;Up with Assist Only;Recommend Continued Therapy Assessment/Progress Impaired Mobility Due To: Decreased Strength;Impaired Balance;Cognitive Deficits ;Medical Status Limitation Impaired Strength Due To: Medical Status Limitation;Limited Command Following Assessment/Progress: Should Improve w/ Continued PT AM-PAC 6 Clicks Basic Mobility Inpatient Turning from your back to your side while in a flat bed without using bed rails: A Little Moving from lying on your back to sitting on the side of a flat bed without usin g bedrails : A Lot Moving to and from a bed to a chair (including a wheelchair): A Little Standing up from a chair using your arms (e.g. wheelchair, or bedside chair): A Little To walk in hospital room: A Little Climbing 3-5 steps with a railing: A Lot Basic Mobility Inpatient Raw Score: 16 Standardized (T-scale) Score: 38.32 AM-PAC Basic Mobility Functional Stage: -11.95-33 Limited Movement Goals Goal Formulation: Patient Unable to Participate in Goal Setting Time For Goal Achievement: 5 days, To, 7 days Patient Will Go Supine To/From Sit: w/ Minimal Assist Patient Will Transfer Bed/Chair: w/ Moderate Assist, Met, New Goal, w/ Stand By Assist Patient Will Transfer Sit to Stand: w/ Moderate Assist, Met, New Goal, w/ Stand By Assist Patient Will Ambulate: 31-50 Feet, w/ Moderate Assist, Met, New Goal, 151-200 Fe et, w/ No Device, w/ Stand By Assist Plan Treatment Interventions: Mobility Training;Neuromuscular Reeducation;Balance Act ivities;Coordination Training;Strengthening Plan Frequency: 5 Days per Week PT Plan for Next Visit: Gait as able; work on transfers. PT Discharge Recommendations Recommendation: Inpatient setting;Recommend rehab medicine consult Therapist: Abbey Nava, PT Date: 08/14/2022 Zoë Burton RN - 08/14/2022 11:10 AM CST I have reviewed the notes, assessment, and/or procedures performed by Ileana poon, student, and concur with her/his documentation unless otherwise noted. Angeline Ozuna APRN-AZ - 08/14/2022 7:45 AM CST General Progress Note Name: Derek Castro Jr. Today's Date: 08/14/2022 Admission Date: 08/09/2022 LOS: 5 days Assessment/Plan: Principal Problem: Acute ischemic left MCA stroke (HCC) Active Problems: CAD (coronary artery disease) Stage 3b chronic kidney disease (HCC) Hyperlipidemia Primary hypertension Hypothyroidism Seizure disorder (HCC) History of multiple strokes Global aphasia Acute right hemiparesis (HCC) Assessment and Plan Derek Castro is a 77 yo male with a PMHx of HTN/HLD,CAD s/pCABG x5 in 2009, RLE DVT,CKD stage 3, seizures,multiple ischemic strokes(2019,May 2022, Jul 2022) with residual LUE ataxia, hypothyroidism who presented to an OSH ([facility]) on 08/09 for right sided weakness and aphasia. CT/CTA showed a left M2 occlusion. He was not a TNK candidate due to recent stroke, so he was transf erred to [facility] for further management. He is now s/p thrombectomy and was admitt ed to the [facility] post-op. Patient transferred to the IM service on 08/13. Patient wi th ongoing severe dysphagia and aphasia. Plan for peg tube placement 08/14. Left M2 occlusions/p IRw/ aTICI3 Basal ganglia infarct Chronicvertebral artery occlusion Severe dysphagia and aphasia Hx of multiple ischemic strokes(2019, R MCA 05/2022, L NILA 07/2022) Seizures -Presented for sudden onset right sided weakness and aphasia, L gaze deviation -OSHCT head:L frontal subacute infarct and R fronto parietal chronic infar ct -OSHCTA:Left M2 MCA, distal reconstitution.Chronicocclusion of the cer vical right vertebral artery - MRI head 08/09: Acute moderate sized left MCA territory infarct with mild cortic al petechial type hemorrhage. No midline shift or herniation. Chronic right NILA and MCA territory infarcts, chronic left parietal lobe infarct, and small bilate ral cerebellar infarcts and left caudate head lacunar type infarct - MRA head 08/09: Interval reconstituted flow within previously occluded left M2 b ranch. No remaining large vessel occlusion is identified.Irregularity within t he left carotid siphon with at least mild associated stenosis, likely atheroscle rotic - CT head 08/10: EvolvingLMCA territory infarct, minimal petechial type hemor rhage.Chronic right NILA/MCA territory infarcts, chronic left parietal lobe inf arct, chronic small bilateral cerebellar infarcts, and chronic left caudate head lacunar-type infarcts. Chronic microvascular ischemic changes - CT head 08/11:Evolving L MCA territory infarct with slight increase in mass e ffect - TTE 08/10: LVF normal, EF 60%. Technically limited study, cannot r/o small righ t to left shunting - A1c 5.8%, LDL 106, on a statin ASSEMBLY PERSON - Etiology likely 2/2 embolic source vs. hypercoagulable state Plan: > Plan for Eliquis 10-14 days following initial presentation > Cont aspirin, plavix, atorvastatin, Keppra. Likely will transition off plavix when AC is started > Arterial hypercoaguable workup: Cardiolipin Antibodies, Beta 2 GP IgM/IgG, Hex Lupus AC (pending) > Rehab medicine consulted - PT/OT recommending inpatient care > CLINICAL RESEARCH SPEC following - plan peg tube placement today > KASSI ordered > 30 day cardiac event monitor or ILR at discharge > Whole body PET scan to evaluate for malignancy HTN HLD CAD s/p CABG x5(2009) - Echo 08/10 with EF 60%, no WMA or ventricle dysfunction - Lipid panel: LDL 106, HDL 29 - Troponin, BNPWNL -SBP goal:< 160 per neuro Plan: > Cont amlodipine and statin CKD stage 3 - BaselineCr~1.8-2 - Creat stable near baseline Fever - resolved -08/10febrileupto 38.4 -BCs: NGTD -MRSA neg, CXR without consolidation, Procal 0.11 -Sputum culture with normal oropharyngeal hood -UA 2+ leuks, 20-50 WBCs, culture NGTD -Vanc/zosyninitially started and narrowed torocephin for possible UTI - s/p rocephin 08/11-08/13 Hypothyroidism > Cont ASSEMBLY PERSON levothyroxine Rash - Dry, red macular rash noted to entire back Plan: > Cont Emollient cream Pulmonary nodules - Incidental finding - Multiple subcentimeter pulmonary nodules, indeterminant on initial examination . No dominant pulmonary mass Plan: > Follow-up CT chest in 3 months recommended to evaluate for stability Concern for hypopharyngeal mass - ENT consulted - CT neck reviewed without evidence of mass Acute urinary retention - Likely neurogenic due to stroke - Requiring freq SCs. Lake placed 08/13 Plan: > Cont doxazosin 1mg daily (unable to use Flomax due to Corpak) FEN -No IVFs -Daily labs -Diet: Okay to use peg tube for medications 12 hrs after placement. Okay to use peg tube for tube feeds 24 hrs after placement PPx: Heparin Code Status: Full Code Disposition: Continue inpatient care. Rehab medicine consulted - PT/OT recommend ing inpatient care Barriers to discharge: Nathaly Parra APRN, CONFERENCE CONCIERGE-C [phone] Willis Subjective Patient assessed at the bedside today. Appears more awake today, no acute distre ss. Unable to obtain hx due to severe aphasia. Patient did squeeze my fingers an d wiggle his toes on command. Would not shake his head "yes or no." Unable to complete a comprehensive 14 point review of organ systems due to patie nt condition Medications Scheduled Meds:amLODIPine (NORVASC) tablet 10 mg, 10 mg, Per NG tube, QDAY aspirin EC tablet 81 mg, 81 mg, Oral, QDAY atorvastatin (LIPITOR) tablet 80 mg, 80 mg, Per NG tube, QDAY chlorhexidine gluconate (PERIDEX) 0.12 % solution 15 mL, 15 mL, Swish & Spit, BID(8-20) clopiDOGreL (PLAVIX) tablet 75 mg, 75 mg, Per NG tube, QDAY senna (SENOKOT) oral syrup 8.8 mg, 8.8 mg, Per NG tube, BID And docusate sodium (COLACE) oral solution 50 mg, 50 mg, Oral, BID doxazosin (CARDURA) tablet 1 mg, 1 mg, Per NG tube, QDAY heparin (porcine) PF syringe 5,000 Units, 5,000 Units, Subcutaneous, Q8H levETIRAcetam (KEPPRA) IV push 500 mg, 500 mg, Intravenous, BID levothyroxine (SYNTHROID) tablet 112 mcg, 112 mcg, Per NG tube, QDAY(07) milk of magnesium oral suspension 30 mL, 30 mL, Oral, QDAY Protein Supplement Packets, , SEE ADMIN INSTRUCTIONS, QDAY Continuous Infusions: Diet Enteral Feeding Standard Infusion Stopped (08/14/22 0015) PRN and Respiratory Meds:acetaminophen Q4H PRN, emollient PRN, labetalol (NORMOD YNE; TRANDATE) injection Q1H PRN, pancrelipase 20,880 Units/sodium bicarbonate 6 50 mg (KU CLOG DESTROYER) PRN (News Producer from Rx) Objective Vital Signs: Last Filed Vital Signs: 24 Gladis r Range BP: 142/72 (08/14 05) Temp: 37.4 C (99.3 F) (08/14 412) Pulse: 74 (08/14 412) Respirations: 18 PER MINUTE (08/14 412) SpO2: 93 % (08/14 412) O2 Device: None (Room air) (08/14 412) O2 Liter Flow: 1 Lpm (08/13 09) BP: (110-196)/(72-90) Temp: [36.4 C (97.6 F)-37.4 C (99.3 F)] Pulse: [74-90] Respirations: [18 PER MINUTE-21 PER MINUTE] SpO2: [92 %-96 %] O2 Device: None (Room air) O2 Liter Flow: 1 Lpm Vitals: 08/09/22 1715 08/10/22 0700 Weight: 97.4 kg (214 lb 11.7 oz) 99.7 kg (219 lb 12.8 oz) Intake/Output Summary: (Last 24 hours) Intake/Output Summary (Last 24 hours) at 08/14/2022 0746 Last data filed at 08/14/2022 0649 Gross per 24 hour Intake 1309 ml Output 1950 ml Net -641 ml Stool Occurrence: 1 Physical Exam General: Alert, no distress, appears stated age Head: Normocephalic, without obvious abnormality, atraumatic Eyes: Conjunctivae/corneas clear. PERRL, EOMs intact Nose: Nares normal. Corpak in place Throat: Lips, mucosa and tongue moist Neck: Symmetrical Back: Symmetric, no curvature Lungs: Clear to auscultation bilaterally Heart: Regular rate and rhythm, S1, S2 normal, no murmur, click rub or gallop Abdomen: Soft, non-tender. Bowel sounds normal. No masses Extremities: Extremities normal, atraumatic, no cyanosis or edema Pulses: 2+ and symmetric in b/l radials Skin: Skin color, texture, turgor normal. No rashes or lesions Neurologic: Aphasic, strength 4/5 in all extremities Lab Review 24-hour labs: Results for orders placed or performed during the hospital encounter of 08/09/22 (from the past 24 hour(s)) CBC AND DIFF Collection Time: 08/14/22 6:39 AM Result Value Ref Range White Blood Cells 9.3 4.5 - 11.0 K/UL RBC 4.63 4.4 - 5.5 M/UL Hemoglobin 14.1 13.5 - 16.5 GM/DL Hematocrit 42.2 40 - 50 % MCV 91.1 80 - 100 FL MCH 30.3 26 - 34 PG MCHC 33.3 32.0 - 36.0 G/DL RDW 14.2 11 - 15 % Platelet Count 264 150 - 400 K/UL MPV 9.5 7 - 11 FL Neutrophils 71 41 - 77 % Lymphocytes 11 (L) 24 - 44 % Monocytes 12 4 - 12 % Eosinophils 6 (H) 0 - 5 % Basophils 0 0 - 2 % Absolute Neutrophil Count 6.61 1.8 - 7.0 K/UL Absolute Lymph Count 0.97 (L) 1.0 - 4.8 K/UL Absolute Monocyte Count 1.13 (H) 0 - 0.80 K/UL Absolute Eosinophil Count 0.51 (H) 0 - 0.45 K/UL Absolute Basophil Count 0.04 0 - 0.20 K/UL Point of Care Testing (Last 24 hours): NA Radiology and other Diagnostics Review: Pertinent radiology reviewed. Angeline Parra APRN-[place] Pager [phone] ING WORKER Associated attestation - Ankush Willis DO - 08/14/2022 2:45 PM HEATING WORKER ATTESTATION I personally performed the tineo elements of the E/M service, discussed case with [place] Parra and concur with documentation of history, physical exam, assessment, and treatment plan unless otherwise noted. Will begin holding plavix, as we need it held x5 days prior to PEG placement in IR. Will obtain records from patient's outpatient abseiling instructor as to the indicat ion for ongoing DAPT (per last stent was placed in 2019 and she notes he hunter s been on asa, plavix since that time). Will start eliquis 10-14 days from intit ial presentation (08/09/22) per neuro and anticipate dropping plavix and continuin g with aspirin for single antiplatelet therapy. Obtaining PET to assess for malignancy. KASSI planned for 08/15 to definitively ass ess for shunt. F/u hypercoagulable workup. Staff name: Ankush Willis, Date: 08/14/2022 * Shayy Etienne - 08/13/2022 2:53 PM CST SPEECH-LANGUAGE PATHOLOGY SPEECH-LANGUAGE ASSESSMENT + DAILY [place] NOTE EVALUATION SUMMARY Summary* Summary: A speech-language evaluation completed this date. Pt presents with soren re receptive/expressive language impairment. Verbal expression nonfluent, charac terized by no functional communication attempts this date. Question if degree of oral/verbal apraxia given incoordination with PO trials and sole vocalization s pontaneous in nature. Auditory comprehension not functional for direction follow ing or answering yes/no questions at this time. Use of strategies ineffective to improve performance. Prognosis: Fair Plan: Continue Treatment 2-3x/week Results Reported to Physician: Yes Swallow Recommendations NPO: Continue short term non-oral nutrition, Consider intermediate card tender non-oral nutriti on Anticipate pt will require instrumental swallow assessment Medications: NG tube Ice Chip Trials: 5-7 per hour Positioning: Upright at 90 degrees Oral Hygiene: Complete oral care to minimize the risk of aspirating oral bacteri a, Moistened oral swabs for oral comfort/moisture and to facilitate functional s wallow Ongoing Speech Therapy to Address: Dysphagia, Communication Communication Recommendations Provide models to improve comprehension No functional communication system at this time Anticipate pt's wants and needs based on non-verbal cues AUDITORY COMPREHENSION Object id - field of 2: 0% Biographical yes/nos: 0% [place] yes/nos: 0% 1-step directions: 0% max cues/models VERBAL EXPRESSION Spontaneous vocalization: x1 with cough Automatic - countin% Automatic - son% Word repetition: 0% Objective* Relevant Med Background: Pt is a 77 yo male with epilepsy, HTN, HLD, CAD s/p CAB G, CKD, Multiple recurrent ischemic strokes of unclear etiology (RMCA in 05/2022 , L NILA in 07/2022) that presented with aphasia and L hemiplegia and found to hav e acute LMCA stroke 2/2 to LM2 occlusion with good distal reconstitution, s/p EV T with TICI3 recanalization. Hospital course complicated by fever requiring ant ibiotics for possible UTI, acute urinary retention, concern for hypopharyngeal m ass although CT neck unremarkable, dysphagia. Handedness: Right Lives With: Spouse Receives Help From: None Needed Psychosocial Status: Participates in Therapy with Encouragement Persons Present: None CT Head WO Contrast IMPRESSION 1. Further evolution of the recent moderate-sized left MCA territory infarct, with slight increase in localized mass effect. No midline shift, descending herniation or hydrocephalus. 2. No gross hemorrhagic conversion. 3. Redemonstration of old infarcts in the right NILA and MCA territories, left parietal lobe, bilateral cerebellar hemispheres and left caudate head. Superimposed moderate nonspecific supratentorial white matter disease is likely due to chronic microvascular ischemic change. Subjective* Pain: Patient demonstrates no signs of pain Pain Level Current*: No pain Trach Presence: No Feeding Tube Present During Eval: Corpak Education* Persons Educated: Patient Barriers To Learning: Impaired Communication, Family Not Present Interventions: Repetition of Instructions Teaching Methods: Verbal Topics: Aphasia Patient Response: Unable to Demonstrate Understanding, More Instruction Required Goal Formulation: Patient Unable to participate in Goal Setting Speech Language Goals* Goal : Pt will participate in ongoing assessment of speech-language given mod-ma x cues. Goal : Pt will follow 1-step directions with 40% accuracy given max cues. Speech Discharge Recommendations Recommendation: Home with consistent supervision/assistance Recommendation for Therapy Post Discharge: Outpatient Patient Currently Requires Supervision For: Communication DAILY [place] NOTE Dysphagia therapy completed. Moderate-severe oropharyngeal dysphagia. Suspected etiology of dysphagia: impaired weakness/sensation/ROM secondary to CV A. Further considerations for dysphagia: Pt intubated 08/09-08/10, mass effect from retropharyngeal course of right common carotid artery Education provided to: patient re: POC; will need ongoing reinforcement Goal : The patient will participate in ongoing assessment of swallow function w/ max cueing for alertness/attention Met Comment: Pt assessed w/ ice chips, thin liquids via tsp, pureed solids Oral Stage : Withdrawal: Lips pursed, slight opening with stimulation; CLINICAL RESEARCH SPEC poured into oral c avity Bolus formation: Slowed, incoordinated Mastication: Slowed, incomplete w/ ice chips Transfer: Significantly delayed, incoordinated Anterior bolus spillage: Mild from right labial seal Residues: Mild throughout Pharyngeal stage : O2: Room air Swallow Initiation: Suspected to be delayed Laryngeal elevation: Suspected to be reduced Signs/symptoms of aspiration: Throat clear and multiple swallows (2-3 per bolus) in 100% of opportunities, cough x1 not resolved with small bites/sips, slow rate Continue to address this goal Plan for next visit: Ongoing bedside trials - if increased intake, consider inst rumental swallow evaluation; gato tx Frequency: 3-5x/week Therapist: Shayy Orlando MA, CCC-CLINICAL RESEARCH SPEC Voalte: [id number] Date: 08/13/2022 ING WORKER * Disha Michelle, DO - 08/13/2022 1:41 PM CST Neurology Consultation Name: Derek Castro Jr. Admission Date: 08/09/2022 LOS: 4 days [id number] ASSESSMENT: Principal Problem: Acute ischemic left MCA stroke (HCC) Active Problems: CAD (coronary artery disease) Stage 3b chronic kidney disease (HCC) Hyperlipidemia Primary hypertension Hypothyroidism Seizure disorder (HCC) History of multiple strokes Global aphasia Acute right hemiparesis (HCC) Derek Castro Jr. is a 77 yo male with epilepsy, HTN, HLD, CAD s/p CABG, CKD, Mult iple recurrent ischemic strokes of unclear etiology (RMCA in 05/2022, L NILA in ) that presented with aphasia and L hemiplegia and found to have acute LMCA stroke 2/2 to LM2 occlusion with good distal reconstitution, s/p EVT with TICI3 recanalization. Hospital course complicated by fever requiring antibiotics for possible UTI, acute urinary retention, concern for hypopharyngeal mass although CT neck unremarkable, dysphagia. Imaging/Diagnostic Studies: - IR Arteriogram: Occlusion of the superior LM2 extending into the M1. Wastewater Analyst al aspiration resulted in complete recanalization TICI3. -MRI head: Acute L MCA moderate infarct with mild cortical petechial hemorrhage or vascular thrombosis in the infarct territories. Chronic R NILA/MCA infarcts, chronic L parietal lobe infarct, small b/l cerebellar infarcts, L caudate infarc t. -MRA Head: Interval reconstituted flow in the previously occluded Lm2 branch. Mi ld atherosclerosis of the L carotid siphon. Congenital absent L A1, diminutive R vertebral artery -CT head 08/10: Evolving L MCA infarct involving the L frontal, insula, external capsule. Minimal petechial type hemorrhage. No gross conversion. Mild locali zed mass effect and sulcal effacement. -TTE: LVEF 60%. Normal size L atrium. RV normal. Aortic valve not well visua lized. Technically difficult study, cannot exclude shunt. -CT C/A/P: Multiple subcentimeter pulmonary nodules, indeterminate on initial ex amination. Follow-up CT chest in 3 months is recommended. -CT Neck: Retrophargyneal course of R CCA produces mass effect and effacement of the R oropharynx and R hypopharynx could cause R submucosal mass on intubation. No definite evidence of L hyoopharyngeal mass. 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 He has had multiple ischemic strokes (now 3) in varying vascular territories wit hin the past 4 months suspicious for embolic source vs hypercoagulable state. Tabatha pretty multiple strokes, would benefit from anticoagulation, preferably with Eliqu is, for secondary prevention. Would wait 10-14 days from stroke onset to start anticoagulation give moderate size of infarct with petechial hemorrhage. Unless needed from a cardiac perspective, no indication for DAPT, can narrow to ASA mo notherapy. Recommend KASSI for further assessment of potential cardiac course of stroke. Ryder l need event monitor or ILR to assess for arrhythmias. Also recommend sending arterial hypercoaguable workup as below. CT C/A/P with pulmonary nodules, recom mend repeating imaging in 3 months for stability. ENT evaluated pt for possible laryngeal mass noted on intubation, suspect likely from RCCA. Can consider who le body PET scan to assess for potential underlying malignancy as etiology of st roke. Otherwise continue secondary stroke risk factor modifications as below. PT/OT/Rehab. Severe dysphagia: Corpak in place, CLINICAL RESEARCH SPEC following. May need PEG. RECOMMENDATIONS: >Recommend anticoagulation with preferably with Eliquis, 10-14 days following initial presentation for recurrent ischemic strokes and suspected embolic/hypercoaguable state >Arterial hypercoaguable workup: Cardiolipin Antibodies, Beta 2 GP IgM/IgG, Hex Lupus AC (ordered) >KASSI >30 day cardiac event monitor or ILR >Consider whole body PET scan to evaluate for malignancy >Stroke risk factor modifications: -Antiplt therapy: From a neurological perspective, no need for DAPT. If there is no other reason (I.e. cardiac) for DAPT, can narrow to ASA monotherapy. -HLD: LDL 106. Goal <70. Continue atorvastatin 80mg. -Prediabetes: A1c 5.8. Goal <7.0. Continue glycemic management. -TTE as above. Recommend KASSI as above -Event monitor/ILR as above -Continue smoking cessation -Pulmonary nodules: Repeat CT Chest in 3 months time for follow-up >PT/OT/Rehab >Dysphagia: Corpak in Place. CLINICAL RESEARCH SPEC following. Thank you for allowing us to participate in the care of this patient. Please pag e neurology stroke behavioral modification assistant [phone] with any further questions or concerns. Disha Michelle, Vascular Neurology __ Subjective: Transferred out of ICU yesterday Medical History: Diagnosis Date CAD (coronary artery disease) 03/2010 s/p CABG x 5 CKD (chronic kidney disease) stage 3, GFR 30-59 ml/min ([facility]) Deep vein thrombosis (DVT) of right lower extremity (HCC) 05/2010 s/p CABG Gout History of left NILA stroke 07/2022 History of right MCA stroke 05/2022 Hyperlipidemia Hypothyroidism Primary hypertension Seizure disorder (HCC) Surgical History: Procedure Laterality Date CORONARY ARTERY BYPASS GRAFT 03/2010 x 5 vessel Social History Socioeconomic History Marital status: Tobacco Use Smoking status: Former Types: Cigarettes Smokeless tobacco: Never Vaping Use Vaping Use: Never used Substance and Sexual Activity Alcohol use: Not Currently Drug use: Not Currently History reviewed. No pertinent family history. Immunizations (includes history and patient reported): Immunization History Administered Date(s) Administered COVID-19 (MODERNA), mRNA vacc, 100 mcg/0.5 mL (PF) 08/27/2020, 09/22/2020, 1 Allergies: Patient has no known allergies. Medications: Medications Prior to Admission Medication Sig allopurinoL (ZYLOPRIM) 100 mg tablet Take 50 mg by mouth daily. Take with fo od. amLODIPine (NORVASC) 10 mg tablet Take 10 mg by mouth daily. aspirin EC 81 mg tablet Take 81 mg by mouth daily. Take with food. atorvastatin (LIPITOR) 80 mg tablet Take 80 mg by mouth daily. cetirizine (ZYRTEC) 10 mg tablet Take 10 mg by mouth daily. CHOLEcalciferoL (vitamin D3) (VITAMIN D3) 5000 unit tablet Take 5,000 Units by mouth daily. clopiDOGreL (PLAVIX) 75 mg tablet Take 75 mg by mouth daily. fish oil- omega 3-DHA/EPA 300/1,000 mg capsule Take 1 capsule by mouth daily . levETIRAcetam (KEPPRA) 500 mg tablet Take 500 mg by mouth twice daily. levothyroxine (SYNTHROID) 125 mcg tablet Take 125 mcg by mouth daily [address] before breakfast. lisinopriL (ZESTRIL) 20 mg tablet Take 20 mg by mouth daily. melatonin 5 mg chew Chew 5 mg by mouth at bedtime daily. multivitamin (ONE-A-DAY) tablet Take 1 tablet by mouth daily. No current facility-administered medications on file prior to encounter. Current Outpatient Medications on File Prior to Encounter Medication Sig Dispense Refill allopurinoL (ZYLOPRIM) 100 mg tablet Take 50 mg by mouth daily. Take with fo od. amLODIPine (NORVASC) 10 mg tablet Take 10 mg by mouth daily. aspirin EC 81 mg tablet Take 81 mg by mouth daily. Take with food. atorvastatin (LIPITOR) 80 mg tablet Take 80 mg by mouth daily. cetirizine (ZYRTEC) 10 mg tablet Take 10 mg by mouth daily. CHOLEcalciferoL (vitamin D3) (VITAMIN D3) 5000 unit tablet Take 5,000 Units by mouth daily. clopiDOGreL (PLAVIX) 75 mg tablet Take 75 mg by mouth daily. fish oil- omega 3-DHA/EPA 300/1,000 mg capsule Take 1 capsule by mouth daily . levETIRAcetam (KEPPRA) 500 mg tablet Take 500 mg by mouth twice daily. levothyroxine (SYNTHROID) 125 mcg tablet Take 125 mcg by mouth daily 30 [address] before breakfast. lisinopriL (ZESTRIL) 20 mg tablet Take 20 mg by mouth daily. melatonin 5 mg chew Chew 5 mg by mouth at bedtime daily. multivitamin (ONE-A-DAY) tablet Take 1 tablet by mouth daily. Review of Systems: Constitutional: negative Eyes: negative Ears, nose, mouth, throat, and face: negative Respiratory: negative Cardiovascular: negative Gastrointestinal: negative Genitourinary: negative Integument/breast: negative Hematologic/lymphatic: negative Musculoskeletal: negative Neurological: negative Behavioral/Psych: negative Endocrine: negative Allergic/Immunologic: negative Physical Exam: Vital Signs: Last Filed In 24 Hours Vital Signs: 24 Hour Range BP: 133/76 (08/13 1017) Temp: 36.7 C (98.1 F) (08/13 101) Pulse: 79 (08/13 1017) Respirations: 18 PER MINUTE (08/13 1016) SpO2: 96 % (08/13 1016) O2 Device: None (Room air) (08/13 1016) O2 Liter Flow: 1 Lpm (08/13 0900) SpO2 Pulse: 70 (08/13 0700) BP: (120-196)/(63-96) Temp: [36.4 C (97.6 F)-37.3 C (99.2 F)] Pulse: [65-90] Respirations: [8 PER MINUTE-28 PER MINUTE] SpO2: [91 %-96 %] O2 Device: None (Room air) O2 Liter Flow: 1 Lpm Neuro exam: Mental status: Awake Speech: Global Aphasia Cranial Nerves: L gaze preference, decreased blink on R. R facial droop Muscle/motor: No movement noted in RUE. Withdraws against gravity in LUE. Fli cker in b/l LE to noxious stimuli Sensation: Flicker in b/l LE to noxious stimuli Coordination: Deferred Gait and Station: Deferred Lab/Radiology/Other Diagnostic Tests: 24-hour labs: Results for orders placed or performed during the hospital encounter of 08/09/22 (from the past 24 hour(s)) IONIZED CALCIUM Collection Time: 08/13/22 3:12 AM Result Value Ref Range Ionized Calcium 1.20 1.0 - 1.3 MMOL/L BASIC METABOLIC PANEL Collection Time: 08/13/22 3:12 AM Result Value Ref Range Sodium 140 137 - 147 MMOL/L Potassium 4.1 3.5 - 5.1 MMOL/L Chloride 108 98 - 110 MMOL/L CO2 26 21 - 30 MMOL/L Anion Gap 6 3 - 12 Glucose 132 (H) 70 - 100 MG/DL Blood Urea Nitrogen 30 (H) 7 - 25 MG/DL Creatinine 1.81 (H) 0.4 - 1.24 MG/DL Calcium 9.1 8.5 - 10.6 MG/DL eGFR 38 (L) >60 mL/min CBC AND DIFF Collection Time: 08/13/22 3:12 AM Result Value Ref Range White Blood Cells 10.4 4.5 - 11.0 K/UL RBC 5.11 4.4 - 5.5 M/UL Hemoglobin 15.4 13.5 - 16.5 GM/DL Hematocrit 46.5 40 - 50 % MCV 91.0 80 - 100 FL MCH 30.2 26 - 34 PG MCHC 33.2 32.0 - 36.0 G/DL RDW 14.4 11 - 15 % Platelet Count 254 150 - 400 K/UL MPV 9.1 7 - 11 FL Neutrophils 71 41 - 77 % Lymphocytes 10 (L) 24 - 44 % Monocytes 11 4 - 12 % Eosinophils 7 (H) 0 - 5 % Basophils 1 0 - 2 % Absolute Neutrophil Count 7.40 (H) 1.8 - 7.0 K/UL Absolute Lymph Count 1.07 1.0 - 4.8 K/UL Absolute Monocyte Count 1.13 (H) 0 - 0.80 K/UL Absolute Eosinophil Count 0.69 (H) 0 - 0.45 K/UL Absolute Basophil Count 0.07 0 - 0.20 K/UL MAGNESIUM Collection Time: 08/13/22 3:12 AM Result Value Ref Range Magnesium 2.0 1.6 - 2.6 mg/dL PHOSPHORUS Collection Time: 08/13/22 3:12 AM Result Value Ref Range Phosphorus 2.9 2.0 - 4.5 MG/DL Glucose: (!) 132 (08/13/22311) Pertinent radiology reviewed. Disha Michelle DO Vascular Neurology ING WORKER * Abbey Nava, PT - 08/13/2022 10:24 AM CST PHYSICAL THERAPY PROGRESS NOTE Name: Derek Castro Jr. : 1945 Age: 77 y.o. Admission Date: 08/09/2022 LOS: 4 days Date of Service: 08/13/2022 Mobility Patient Turn/Position: Chair Progressive Mobility Level: Walk in room Distance Walked (feet): 10 ft (x2) Level of Assistance: Assist X2 Assistive Device: Hand Held Activity Limited By: Mental Status Variability Subjective Significant hospital events: 77 y.o. male with a PMH of HTN, CAD s/p CABG, CKD, seizures, and multiple ischemic strokes (2019, May 2022 and Jul 2022) with resid ual LUE ataxia who was found slumped over in a chair on 08/09 with right sided wea kness and aphasia. LKW 1130. NIH was 22. He was taken to an OSH where CT/CTA rosa maria wed a left M2 occlusion. He was not a TNK candidate due to recent stroke so he w as then transferred to [facility] and taken for thrombectomy. TICI 3 was obtained and patient was admitted to [facility] post op Mental / Cognitive Status: Alert;Inconsistent with Command Following (aphasic; c ompletes some automatic tasks) Persons Present: Occupational Therapist;Sister Pain: Patient demonstrates no signs of pain Ambulation Assist: Independent Mobility in Community without Device Home Situation: Lives with Family (Spouse) Type of Home: House Entry Stairs: Ramp In-Home Stairs: Able to Live on One Level Comments: Patient unable to give PLOF or home setup, information gathered from E MR. Per chart, patient independent with mobility and ADLs without a device prior to admit. Bed Mobility/Transfer Bed Mobility: Supine to Sit: Moderate Assist;Assist with Trunk;Head of Bed [place]ancock earline;No Rail Transfer Type: Sit to/from Stand Transfer: Assistance Level: To/From;Bed;Toilet;Bed Side Chair;Minimal Assist;x2 People (maximal assist to sit the first time likely due to aphasia) Transfer: Assistive Device: Hand Hold Assist Transfers: Type Of Assistance: For Balance;For Safety Considerations End Of Activity Status: Up in Chair;Nursing Notified;Instructed Patient to Reque st Assist with Mobility;Instructed Patient to Use Call Light (Chair alarm active , sling placed under patient for nursing staff use) Balance Sitting Balance: Static Sitting Balance;No UE Support;Standby Assist Standing Balance: Static Standing Balance;Minimal Assist;Standby Assist;x2 Peopl e Gait Gait Distance: 10 feet (x2 with seated rest in between) Gait: Assistance Level: Minimal Assist;x2 People Gait: Assistive Device: Hand Hold Assist Gait: Descriptors: Pace: Slow;Decreased foot clearance RLE;Decreased foot cleara nce LLE;Decreased step length;No balance loss Education Persons Educated: Patient Patient Barriers To Learning: Cognitive Deficits;Impaired Communication Interventions: Repetition of Instructions;Demonstration Provided Teaching Methods: Verbal Instruction;Demonstration Patient Response: More Instruction Required Topics: Plan/Goals of PT Interventions;Mobility Progression;Importance of Increa sing Activity;Up with Assist Only;Recommend Continued Therapy Assessment/Progress Impaired Mobility Due To: Decreased Strength;Impaired Balance;Cognitive Deficits ;Medical Status Limitation Impaired Strength Due To: Medical Status Limitation;Limited Command Following Assessment/Progress: Should Improve w/ Continued PT [facility] 6 Clicks Basic Mobility Inpatient Turning from your back to your side while in a flat bed without using bed rails: A lot Moving from lying on your back to sitting on the side of a flat bed without usin g bedrails : A Lot Moving to and from a bed to a chair (including a wheelchair): Total Standing up from a chair using your arms (e.g. wheelchair, or bedside chair): A Lot To walk in hospital room: Total Climbing 3-5 steps with a railing: Total Basic Mobility Inpatient Raw Score: 9 Standardized (T-scale) Score: 25.8 [facility] Basic Mobility Functional Stage: -11.95-33 Limited Movement Goals Goal Formulation: Patient Unable to Participate in Goal Setting Time For Goal Achievement: 5 days, To, 7 days Patient Will Go Supine To/From Sit: w/ Minimal Assist Patient Will Transfer Bed/Chair: w/ Moderate Assist Patient Will Transfer Sit to Stand: w/ Moderate Assist Patient Will Ambulate: 31-50 Feet, w/ Moderate Assist Plan Treatment Interventions: Mobility Training;Neuromuscular Reeducation;Balance Act ivities;Coordination Training;Strengthening Plan Frequency: 5 Days per Week PT Plan for Next Visit: Gait as able; work on transfers. PT Discharge Recommendations Recommendation: Inpatient setting;Recommend rehab medicine consult Therapist: Abbey Nava, PT Date: 08/13/2022 T * NargiskeyshaAleksandr eastonhel, OT - 08/13/2022 10:20 AM CST OCCUPATIONAL THERAPY PROGRESS NOTE Name: Derek Castro Jr. : 1945 Age: 77 y.o. Admission Date: 08/09/2022 LOS: 4 days Date of Service: 08/13/2022 Mobility Patient Turn/Position: Chair Progressive Mobility Level: Walk in room Distance Walked (feet): 10 ft (x2) Level of Assistance: Assist X2 Assistive Device: Hand Held Activity Limited By: Mental Status Variability;Weakness Subjective Pertinent Dx per Physician: 77 y.o. male with a PMH of HTN, CAD s/p CABG, CKD, s eizures, and multiple ischemic strokes (2019, May 2022 and Jul 2022) with residu al LUE ataxia who was found slumped over in a chair on 08/09 with right sided weak ness and aphasia. LKW 1130. NIH was 22. He was taken to an OSH where CT/CTA show ed a left M2 occlusion. He was not a TNK candidate due to recent stroke so he wa s then transferred to [facility] and taken for thrombectomy. TICI 3 was obtained and patient was admitted to [facility] post op Precautions: Standard;Falls (SBP < 160) Pain / Complaints: Patient demonstrates no signs of pain;Unable to rate Comments: Patient supine in bed and remains in chair with alarm activated with s ling underneath him. Objective Psychosocial Status: Willing and Cooperative to Participate Persons Present: Physical Therapist;Sister Home Living Type of Home: House Home Layout: Able to Live on Main Level w/Bedrm/Bathrm Access Bathroom Shower / Tub: Tub/Shower Unit Bathroom Toilet: Standard Prior Function Level Of [place]: Independent with ADLs and functional transfers;Independen t with homemaking w/ ambulation Lives With: Spouse Receives Help From: None Needed Other Function Comments: Information gathered from EMR as patient unable to prov marisel. Patient typically independent in ADLs without use of device. Vision Comment: Doesn't track stimuli; both eyes with fixed central/left gaze. ADL's Where Assessed: In Bathroom;Edge of Bed Grooming Assist: Total Assist Grooming Deficits: Wash/Dry Hands Toileting Assist: Minimal Assist Toileting Deficits: Steadying Comment: Patient reaches for wash rag while seated EOB, but doesn't use it appro priately and requires total assistance to wash face. Patient tolerates walking t o/from toilet and sitting on toilet but does not utilize it. ADL Mobility Bed Mobility: Supine to Sit: Moderate assist Transfer Type: Sit to/from stand Transfer: Assistance Level: To/from;Bed;Toilet;Bedside chair;Minimal assist;x2 p eople Transfer: Assistive Device: Hand hold assist Transfer: Type of Assistance: For balance;For safety considerations End of Activity Status: Up in chair;Instructed patient to request assist with mo bility;Instructed patient to use call light;Nursing notified Transfer Comments: Commands & physcial assistance to initiate all transfers 2/2 aphasia. Sitting Balance: Static sitting balance;Dynamic sitting balance;Standby assist Standing Balance: Static standing balance;Dynamic standing balance;Minimal hugo t;2 UE support;x2 people Gait Distance: 20 feet (10+10) Gait: Assistance Level: Minimal assist;x2 people Gait: Assistive Device: Hand hold assist Gait Comments: Decreased RLE clearance & narrow base of support. Activity Tolerance Endurance: 3/5 Tolerates 25-30 Minutes Exercise w/Multiple Rests Cognition Overall Cognitive Status: Impaired Comprehension: Receptive Aphasia Expression: Expressive Aphasia;Non Verbal Problem Solving: Cueing to Sequence Task Memory: Unable to Provide Accurate Prior Level of Functioning History Attention: Awake/Alert Cognition Comment: Patient with global aphasia and no attempts for verbalization s/head nods this date. Follows few commands this date (~5 commands). UE PROM R UE ROM: Not WFL R UE ROM Method: Active L UE ROM: WFL L UE ROM Method: Active R LE ROM: WFL R LE ROM Method: Passive;Active L LE ROM: WFL L LE ROM Method: Active;Passive Grasp: Bilateral Grasp Functional for Activity ROM Comments: LUE: WFL; RUE: minimal AROM, increased spontaneous AROM with activ ity. Continue to assess. Assessment Assessment: Decreased ADL Status;Decreased UE ROM;Decreased UE Strength;Decrease d Safe/Judg during ADL;Decreased Cognition;Decreased Endurance;Visual Deficit;De creased Fine Motor Coordination;Decreased High-Level ADLs;Decreased Self-Care Tr ans;Non-Functional R UE Prognosis: Good;w/Cont OT s/p Acute Discharge Goal Formulation: Patient Comments: Patient agreeable & pleasant throughout OT session this date. Patient continues to require increased physical and cognitive assistance than their prior level of functioning. Patient requires maximal-total assist during ADLs and minimal assistance x2 for functional mobility throughout the entirety of today's OT session. Patient is making daily gains and is motivated to participate in therapy, however is not safe to discharge home at this time and would continue to benefit from intensive therapy to maximize their safety & independence in ADLs and functional mobility prior to homegoing. AM-PAC 6 Clicks Daily Activity Inpatient Putting on and taking off regular lower body clothes: A Lot Bathing (Including washing, rinsing, drying): A Lot Toileting, which includes using toilet, bedpan, or urinal: A Lot Putting on and taking off regular upper body clothing: A Lot Taking care of personal grooming such as brushing teeth: A Lot Eating meals: Total Daily Activity Raw Score: 11 Standardized (T-scale) Score: 29.04 Plan Progress: Progressing Toward Goals OT Frequency: 5x/week OT Plan for Next Visit: Command following; AROM/MMT of RUE; progress mobility as able; automatic ADLs at sink ADL Goals Patient Will Perform Grooming: w/ Minimum Assist;at Edge of Bed Patient Will Perform UE Dressing: In Chair;w/ Stand By Assist Patient Will Perform LE Dressing: w/ Moderate Assist;In Chair Functional Transfer Goals Pt Will Transfer To Bedside Commode: w/ Moderate Assist OT Discharge Recommendations Recommendation: Inpatient setting;Recommend rehab medicine consult Therapist: TIANA Soriano, OTR/L [id number] Date: 08/13/2022 ING WORKER * Angeline Parra APRN-[place] - 08/13/2022 8:50 AM CST General Progress Note Name: Derek Castro Jr. Today's Date: 08/13/2022 Admission Date: 08/09/2022 LOS: 4 days Assessment/Plan: Principal Problem: Acute ischemic left MCA stroke (HCC) Active Problems: CAD (coronary artery disease) Stage 3b chronic kidney disease (HCC) Hyperlipidemia Primary hypertension Hypothyroidism Seizure disorder (HCC) History of multiple strokes Global aphasia Acute right hemiparesis (HCC) Assessment and Plan Derek Castro is a 77 yo male with a PMHx of HTN/HLD,CAD s/pCABG x5 in 2009, RLE DVT,CKD stage 3, seizures,multiple ischemic strokes(2019,May 2022, Jul 2022) with residual LUE ataxia, hypothyroidism who presented to an OSH ([facility]) on 08/09 for right sided weakness and aphasia. CT/CTA showed a left M2 occlusion. He was not a TNK candidate due to recent stroke, so he was transf erred to [facility] for further management. He is now s/p thrombectomy and was admitt ed to the [facility] post-op. Patient transferred to the IM service on 08/13. Left M2 Occlusions/p IRw/ aTICI3 Basal ganglia infarct Chronicvertebral artery occlusion Severe dysphagia and aphasia Hx of multiple ischemic strokes(2019, R MCA 05/2022, L NILA 07/2022) Seizures -Presented for sudden onset right sided weakness and aphasia, L gaze deviation -OSHCT head:L frontal subacute infarct and R fronto parietal chronic infar ct -OSHCTA:Left M2 MCA, distal reconstitution.Chronicocclusion of the cer vical right vertebral artery - MRI head 08/09: Acute moderate sized left MCA territory infarct with mild cortic al petechial type hemorrhage. No midline shift or herniation. Chronic right NILA and MCA territory infarcts, chronic left parietal lobe infarct, and small bilate ral cerebellar infarcts and left caudate head lacunar type infarct - MRA head 08/09: Interval reconstituted flow within previously occluded left M2 b ranch. No remaining large vessel occlusion is identified.Irregularity within t he left carotid siphon with at least mild associated stenosis, likely atheroscle rotic - CT head 08/10: EvolvingLMCA territory infarct, minimal petechial type hemor rhage.Chronic right NILA/MCA territory infarcts, chronic left parietal lobe inf arct, chronic small bilateral cerebellar infarcts, and chronic left caudate head lacunar-type infarcts. Chronic microvascular ischemic changes - CT head 08/11:Evolving L MCA territory infarct with slight increase in mass e ffect - TTE 08/10: LVF normal, EF 60%. Technically limited study, cannot r/o small righ t to left shunting - A1c 5.8%, LDL 106, on a statin ASSEMBLY PERSON - Etiology likely 2/2 atherosclerosis Plan: > Cont aspirin, plavix, atorvastatin, Keppra > Rehab medicine consulted - PT/OT recommending inpatient care > CLINICAL RESEARCH SPEC following - plan to reevaluate him this afternoon. He might need PEG for nutrition/medications > Cont Corpak for TFs and medications at this time HTN HLD CAD s/p CABG x5(2009) - Echo 08/10 with EF 60%, no WMA or ventricle dysfunction - Lipid panel: LDL 106, HDL 29 - Troponin, BNPWNL -SBP goal:< 160 per neuro Plan: > Cont amlodipine and statin CKD stage 3 - BaselineCr~1.8-2 - Creat stable near baseline Fever - resolved -08/10febrileupto 38.4 -BCs: NGTD -MRSA neg, CXR without consolidation, Procal 0.11 -Sputum culture with normal oropharyngeal hood -UA 2+ leuks, 20-50 WBCs, culture NGTD -Vanc/zosyninitially started and narrowed torocephin for possible UTI - s/p rocephin 08/11-08/13 Plan: > Discontinue rocephin Hypothyroidism > Cont ASSEMBLY PERSON levothyroxine Rash - Dry, red macular rash noted to entire back Plan: > Cont Emollient cream Pulmonary nodules - Incidental finding - Multiple subcentimeter pulmonary nodules, indeterminant on initial examination . No dominant pulmonary mass Plan: > Follow-up CT chest in 3 months recommended to evaluate for stability Concern for hypopharyngeal mass - ENT consulted - CT neck reviewed without evidence of mass Acute urinary retention - Likely neurogenic due to stroke - Requiring freq SCs Plan: > Place indwelling lake > Start Flomax 0.4mg daily FEN -No IVFs -Daily labs -Diet: Strict NPO due to aspiration risk; TFs ordered PPx: Heparin Code Status: Full Code Disposition: Continue inpatient care. Rehab medicine consulted - PT/OT recommend ing inpatient care Barriers to discharge: Nathaly Parra, JENNA, CONFERENCE CONCIERGE-C [phone] Willis Subjective Patient up in chair this morning. Appears lethargic, no acute distress. Unable t o obtain hx due to severe aphasia. Sister at the bedside states he intermittentl y says "yes or no." Patient not responding to me this morning. Unable to complete a comprehensive 14 point review of organ systems due to patie nt condition Medications Scheduled Meds:amLODIPine (NORVASC) tablet 10 mg, 10 mg, Per NG tube, QDAY aspirin EC tablet 81 mg, 81 mg, Oral, QDAY atorvastatin (LIPITOR) tablet 80 mg, 80 mg, Per NG tube, QDAY cefTRIAXone (ROCEPHIN) IVP 1 g, 1 g, Intravenous, Q24H* chlorhexidine gluconate (PERIDEX) 0.12 % solution 15 mL, 15 mL, Swish & Spit, BID(8-20) clopiDOGreL (PLAVIX) tablet 75 mg, 75 mg, Per NG tube, QDAY senna (SENOKOT) oral syrup 8.8 mg, 8.8 mg, Per NG tube, BID And docusate sodium (COLACE) oral solution 50 mg, 50 mg, Oral, BID heparin (porcine) PF syringe 5,000 Units, 5,000 Units, Subcutaneous, Q8H levETIRAcetam (KEPPRA) IV push 500 mg, 500 mg, Intravenous, BID levothyroxine (SYNTHROID) tablet 112 mcg, 112 mcg, Per NG tube, QDAY(07) milk of magnesium oral suspension 30 mL, 30 mL, Oral, QDAY Protein Supplement Packets, , SEE ADMIN INSTRUCTIONS, QDAY Continuous Infusions: Diet Critical Care Enteral Feeding Volume Based Infusion 55 mL/hr at 3 0759 PRN and Respiratory Meds:acetaminophen Q4H PRN, emollient PRN, labetalol (NORMOD YNE; TRANDATE) injection Q1H PRN, pancrelipase 20,880 Units/sodium bicarbonate 6 50 mg (KU CLOG DESTROYER) PRN (News Producer from Rx) Objective Vital Signs: Last Filed Vital Signs: 24 Gladis r Range BP: 196/85 (08/13 799) Temp: 36.4 C (97.6 F) (08/13 799) Pulse: 90 (08/13 799) Respirations: 19 PER MINUTE (08/13 799) SpO2: 92 % (08/13 799) O2 Device: Nasal cannula (08/13 799) O2 Liter Flow: 1 Lpm (08/13 799) SpO2 Pulse: 70 (08/13 699) BP: (107-196)/(63-96) Temp: [36.4 C (97.6 F)-37.3 C (99.2 F)] Pulse: [65-90] Respirations: [8 PER MINUTE-28 PER MINUTE] SpO2: [91 %-97 %] O2 Device: Nasal cannula O2 Liter Flow: 1 Lpm Vitals: 08/09/22 1715 08/10/22 0700 Weight: 97.4 kg (214 lb 11.7 oz) 99.7 kg (219 lb 12.8 oz) Intake/Output Summary: (Last 24 hours) Intake/Output Summary (Last 24 hours) at 08/13/2022 0850 Last data filed at 08/13/2022 0600 Gross per 24 hour Intake 2547 ml Output 1330 ml Net 1217 ml Stool Occurrence: 1 Physical Exam General: Lethargic, no distress, appears stated age Head: Normocephalic, without obvious abnormality, atraumatic Eyes: Conjunctivae/corneas clear. PERRL, EOMs intact Nose: Nares normal. Corpak in place Throat: Lips, mucosa and tongue moist Neck: Symmetrical Back: Symmetric, no curvature Lungs: Clear to auscultation bilaterally Heart: Regular rate and rhythm, S1, S2 normal, no murmur, click rub or gallop Abdomen: Soft, non-tender. Bowel sounds normal. No masses Extremities: Extremities normal, atraumatic, no cyanosis or edema Pulses: 2+ and symmetric in b/l radials Skin: Skin color, texture, turgor normal. No rashes or lesions Neurologic: Aphasic, strength 4/5 in all extremities Lab Review 24-hour labs: Results for orders placed or performed during the hospital encounter of 08/09/22 (from the past 24 hour(s)) IONIZED CALCIUM Collection Time: 08/13/22 3:12 AM Result Value Ref Range Ionized Calcium 1.20 1.0 - 1.3 MMOL/L BASIC METABOLIC PANEL Collection Time: 08/13/22 3:12 AM Result Value Ref Range Sodium 140 137 - 147 MMOL/L Potassium 4.1 3.5 - 5.1 MMOL/L Chloride 108 98 - 110 MMOL/L CO2 26 21 - 30 MMOL/L Anion Gap 6 3 - 12 Glucose 132 (H) 70 - 100 MG/DL Blood Urea Nitrogen 30 (H) 7 - 25 MG/DL Creatinine 1.81 (H) 0.4 - 1.24 MG/DL Calcium 9.1 8.5 - 10.6 MG/DL eGFR 38 (L) >60 mL/min CBC AND DIFF Collection Time: 08/13/22 3:12 AM Result Value Ref Range White Blood Cells 10.4 4.5 - 11.0 K/UL RBC 5.11 4.4 - 5.5 M/UL Hemoglobin 15.4 13.5 - 16.5 GM/DL Hematocrit 46.5 40 - 50 % MCV 91.0 80 - 100 FL MCH 30.2 26 - 34 PG MCHC 33.2 32.0 - 36.0 G/DL RDW 14.4 11 - 15 % Platelet Count 254 150 - 400 K/UL MPV 9.1 7 - 11 FL Neutrophils 71 41 - 77 % Lymphocytes 10 (L) 24 - 44 % Monocytes 11 4 - 12 % Eosinophils 7 (H) 0 - 5 % Basophils 1 0 - 2 % Absolute Neutrophil Count 7.40 (H) 1.8 - 7.0 K/UL Absolute Lymph Count 1.07 1.0 - 4.8 K/UL Absolute Monocyte Count 1.13 (H) 0 - 0.80 K/UL Absolute Eosinophil Count 0.69 (H) 0 - 0.45 K/UL Absolute Basophil Count 0.07 0 - 0.20 K/UL MAGNESIUM Collection Time: 08/13/22 3:12 AM Result Value Ref Range Magnesium 2.0 1.6 - 2.6 mg/dL PHOSPHORUS Collection Time: 08/13/22 3:12 AM Result Value Ref Range Phosphorus 2.9 2.0 - 4.5 MG/DL Point of Care Testing (Last 24 hours) Glucose: (!) 132 (08/13/222) Radiology and other Diagnostics Review: Pertinent radiology reviewed. Angeline Parra APRN-CONFERENCE CONCIERGE Pager [phone] ING WORKER Associated attestation - Ankush Willis DO - 08/13/2022 2:47 PM HEATING WORKER ATTESTATION I personally performed the tineo elements of the E/M service, discussed case with CONFERENCE CONCIERGE Angeline Parra and concur with documentation of history, physical exam, assessment, and treatment plan unless otherwise noted. 77yo M with PMH of HTN/HLD, CAD s/p CABG 2009, h/o DVT, CKD III, h/o seizures, h /o multiple ischemic strokes with residual LUE ataxia who was transferred to [facility] for management of acute L MCA territory stroke with right sided weakness and a phasia and underwent thrombectomy in IR 08/09. Patient sitting up in a chair this morning. Sister at bedside reports he ambulated to bathroom recently. Vitals stable. Patient aphasic. Appears comfortable. RRR, no murmur, lungs CTAB, abdomen soft, nondistended, no edema ble. TTE LVEF 60%, no WMA, to hemodynamica lly significant valvular abnormalities, cannot exclude small right to left shunt ing. CT c/a/p obtained to rule out malignancy - unremarkable other than multiple subcentimeter pulmonary nodules that should be followed up with CT chest in 3 m onths to evaluate for clinical stability. Will plan for KASSI to assess further for shunt. Obtain PET to assess for malignan cy. Hypercoagulable workup ordered by neurology. Will need 30 day cardiac event monitor on dc. Plan to cont plavix, aspirin, atorvastatin. VTE ppx resumed 2, cont. Will need to keep a close eye on BP, most current reading normotensive wi th amlodipine 10mg daily. Goal SBP <160, per neuro. CLINICAL RESEARCH SPEC with plan to reevaluate swallow this afternoon. Pending findings, may need to discuss possible PEG with patient's . PMR consulted. Total Time Today was >50 minutes in the following activities: Preparing to see the patient, Obtaining and/or reviewing separately obtained history, Performing a medically appropriate examination and/or evaluation, Counseling and educating the patient/family/caregiver, Referring and communication with other health live in caregiver (when not separately reported), Documenting clinical information in the electronic or other health record, and Care coordination (not separately reported) Staff name: Ankush Willis, DO Date: 08/13/2022 * Abbey Castelan RT - 08/12/2022 1:06 PM CST RT Adult Assessment Note NAME:Derek Castro Jr. :1945 AGE: 77 y.o. ADMISSION DATE: 08/09/2022 DAYS ADMITTED: LOS: 3 days RT Treatment Plan: Protocol Plan: Procedures NTS: PRN PAP: Place a nursing order for "IS Q1h While Awake" for any of Lung Expansion in dicators Oxygen/Humidity: O2 to keep SpO2 > 92%, if on room air for > 24 hours and no other RT modalities are required, then D/C protocol SpO2: Continuous (Document SpO2 result Qshift) Additional Comments: Impressions of the patient: pt resting in bed, no S&S of respiratory distress Intervention(s)/outcome(s): evaluated for RT needs Patient education that was completed: NA Recommendations to the care team: NA Vital Signs: Pulse: 68 RR: 10 PER MINUTE SpO2: 97 % O2 Device: Nasal cannula Liter Flow: 1 Lpm O2%: Breath Sounds: Clear (Implies normal);Decreased Respiratory Effort: WDL ING WORKER * Renae Steen OT - 08/12/2022 9:37 AM CST OCCUPATIONAL THERAPY ASSESSMENT NOTE Name: Derek aCstro Jr. : 1945 Age: 77 y.o. Admission Date: 08/09/2022 LOS: 3 days Date of Service: 08/12/2022 Mobility Patient Turn/Position: Chair Progressive Mobility Level: Active transfer to chair Level of Assistance: Assist X2 Assistive Device: Hand Held Activity Limited By: Mental Status Variability Subjective Pertinent Dx per Physician: 77 y.o. male with a PMH of HTN, CAD s/p CABG, CKD, s eizures, and multiple ischemic strokes (2019, May 2022 and Jul 2022) with residu al LUE ataxia who was found slumped over in a chair on 08/09 with right sided weak ness and aphasia. LKW 1130. NIH was 22. He was taken to an OSH where CT/CTA show ed a left M2 occlusion. He was not a TNK candidate due to recent stroke so he wa s then transferred to [facility] and taken for thrombectomy. TICI 3 was obtained and patient was admitted to [facility] post op Precautions: Standard;Falls;O2 Requirement (SBP < 160; .5 L NC) Pain / Complaints: Patient demonstrates no signs of pain;Unable to rate Comments: Patient supine in bed and remains in chair with alarm activated & namrata belt on with sling underneath him. Objective Psychosocial Status: Willing and Cooperative to Participate Persons Present: Physical Therapist;Nursing Staff Home Living Type of Home: House Home Layout: Able to Live on Main Level w/Bedrm/Bathrm Access Bathroom Shower / Tub: Tub/Shower Unit Bathroom Toilet: Standard Prior Function Level Of [place]: Independent with ADLs and functional transfers;Independen t with homemaking w/ ambulation Lives With: Spouse Receives Help From: None Needed Other Function Comments: Information gathered from EMR as patient unable to prov marisel. Patient typically independent in ADLs without use of device. Vision Comment: Does not appear to track stimuli purposefully with central fixed gaze. ADL's Where Assessed: Supine, Bed Grooming Assist: Total Assist Grooming Deficits: Wash/Dry Face;Teeth Care;Brushing Hair UE Dressing Assist: Total Assist LE Dressing Assist: Total Assist LE Dressing Deficits: Don/Doff R Sock;Don/Doff L Sock Toileting Assist: Total Assist Comment: Patient soiled in BM upon arrival, requires total assistance for clean- up & linen change. Unable to use toothbrush/comb purposefully when handed it, able to bring LUE into gown when changing back into it. ADL Mobility Bed Mobility: Supine to Sit: Moderate assist Transfer Type: Sit to/from stand Transfer: Assistance Level: To/from;Bed;Moderate assist;x2 people Transfer: Assistive Device: Hand hold assist Transfer: Type of Assistance: For balance;For safety considerations Other Transfer Type: Stand pivot Other Transfer: Assistance Level: To/from;Bed;Bedside chair;Maximum assist;x2 pe ople Other Transfer: Assistive Device: Hand hold assist Other Transfer: Type of Assistance: For balance;For safety considerations End of Activity Status: Up in chair;Instructed patient to request assist with mo bility;Instructed patient to use call light;Nursing notified Transfer Comments: Unable to follow commands during stand pivot transfer, patien t with increased RLE tone in standing. Requires maximal assistance x2 & assistance to move BLEs during weight shifting to chair. Sitting Balance: Static sitting balance;Dynamic sitting balance;Standby assist;M inimal assist Standing Balance: Static standing balance;Dynamic standing balance;Maximum hugo t;x2 people Activity Tolerance Endurance: 3/5 Tolerates 25-30 Minutes Exercise w/Multiple Rests Cognition Overall Cognitive Status: Impaired Comprehension: Receptive Aphasia Expression: Expressive Aphasia;Non Verbal Problem Solving: Cueing to Sequence Task Memory: Unable to Provide Accurate Prior Level of Functioning History Attention: Awake/Alert Cognition Comment: Patient with global aphasia and no attempts for verbalization s/head nods this date. Follows few commands this date (~4 commands). UE AROM L UE ROM: WFL Grasp: Bilateral Grasp Functional for Activity ROM Comments: LUE: WFL; RUE: minimal AROM, increased spontaneous AROM with activ ity. Continue to assess; increased RUE/RLE tone. Edema RUE Edema: No Significant Edema LUE Edema: No Significant Edema Sensory Overall Sensory: Unable to Assess UE Strength / Tone L UE Strength: WFL Strength Comments: LUE: WFL; RUE: unable to assess 2/2 command following, good g rip strength. Education Persons Educated: Patient Barriers To Learning: Cognitive Deficits;Impaired Communication Interventions: Repetition of Instructions Teaching Methods: Verbal Instruction;Demonstration Patient Response: Unable to Verb or Demo Understanding Topics: Role of OT, Goals for Therapy;Home safety;ADL Compensatory Techniques Goal Formulation: With Patient Assessment Assessment: Decreased ADL Status;Decreased UE ROM;Decreased UE Strength;Decrease d Safe/Judg during ADL;Decreased Cognition;Decreased Endurance;Visual Deficit;De creased Fine Motor Coordination;Decreased High-Level ADLs;Decreased Self-Care Tr ans;Non-Functional R UE Prognosis: Good;w/Cont OT s/p Acute Discharge Goal Formulation: Patient Comments: Patient agreeable & pleasant throughout OT session this date. Patient continues to require increased physical and cognitive assistance than their prior level of functioning. Patient requires total assist during ADLs and maximal assistance x2 for stand pivot transfer this date. Patient is making daily gains and is motivated to participate in therapy, however is not safe to discharge home at this time and would continue to benefit from intensive therapy to maximize their safety & independence in ADLs and functional mobility prior to homegoing. AM-PAC 6 Clicks Daily Activity Inpatient Putting on and taking off regular lower body clothes: Total Bathing (Including washing, rinsing, drying): Total Toileting, which includes using toilet, bedpan, or urinal: Total Putting on and taking off regular upper body clothing: Total Taking care of personal grooming such as brushing teeth: Total Eating meals: Total Daily Activity Raw Score: 6 Standardized (T-scale) Score: 17.07 Plan Progress: Progressing Toward Goals OT Frequency: 5x/week OT Plan for Next Visit: Command following; AROM/MMT of RUE; progress mobility as able ADL Goals Patient Will Perform Grooming: w/ Minimum Assist;at Edge of Bed Patient Will Perform UE Dressing: In Chair;w/ Stand By Assist Patient Will Perform LE Dressing: w/ Moderate Assist;In Chair Functional Transfer Goals Pt Will Transfer To Bedside Commode: w/ Moderate Assist OT Discharge Recommendations Recommendation: Inpatient setting;Recommend rehab medicine consult Therapist: TIANA Soriano, OTR/L [id number] Date: 08/12/2022 ING WORKER * Giuliana Moreno, PT - 08/12/2022 9:37 AM CST PHYSICAL THERAPY ASSESSMENT Name: Derek Castro JrSourav : 1945 Age: 77 y.o. Admission Date: 08/09/2022 LOS: 3 days Date of Service: 08/12/2022 Mobility Patient Turn/Position: Chair Progressive Mobility Level: Active transfer to chair Level of Assistance: Assist X2 Assistive Device: Hand Held Activity Limited By: Mental Status Variability Subjective Significant hospital events: 77 y.o. male with a PMH of HTN, CAD s/p CABG, CKD, seizures, and multiple ischemic strokes (2019, May 2022 and Jul 2022) with resid ual LUE ataxia who was found slumped over in a chair on 08/09 with right sided wea kness and aphasia. LKW 1130. NIH was 22. He was taken to an OSH where CT/CTA rosa maria wed a left M2 occlusion. He was not a TNK candidate due to recent stroke so he w as then transferred to [facility] and taken for thrombectomy. TICI 3 was obtained and patient was admitted to [facility] post op Mental / Cognitive Status: Alert;Inconsistent with Command Following (Minimal co mmand following) Persons Present: Occupational Therapist;Nursing Staff Pain: Patient demonstrates no signs of pain Pain Interventions: Patient assisted into position of comfort (Patient in chair with namrata belt for safety) Comments: SBP <160; Corpak, O.5L O2 Ambulation Assist: Independent Mobility in Community without Device Home Situation: Lives with Family (Spouse) Type of Home: House Entry Stairs: Ramp In-Home Stairs: Able to Live on One Level Comments: Patient unable to give PLOF or home setup, information gathered from E MR. Per chart, patient independent with mobility and ADLs without a device prior to admit. ROM L UE ROM: WFL R LE ROM: WFL R LE ROM Method: Passive;Active L LE ROM: WFL L LE ROM Method: Active;Passive ROM Comments: LUE: WFL; RUE: minimal AROM, increased spontaneous AROM with activ ity. Continue to assess. Strength L UE Strength: WFL Strength Comments: Unable to formally assess strength, LLE appears WFL. Exhibits RLE weakness in functional tasks Posture/Neurological Comments: Head rests in R lateral cervical flexion. R lateral Neck musculature t ight when attempted passive ROM to neutral, able to acheive neutral passively bu t not able to maintain. Posture/Neuro Comments: Unable to assess due to mental status. Per EMR, patient has residual LUE ataxia 2/2 previous CVA. Bed Mobility/Transfer Bed Mobility: Rolling: Maximum Assist;Verbal Cues;Bed Flat;Safety Considerations ;Assist with Trunk;Assist with B LE (Max toward left, Min toward right.) Bed Mobility: Supine to Sit: Moderate Assist;Verbal Cues;Head of Bed Elevated;Re quires Extra Time;Safety Considerations;Assist with Trunk;Assist with R LE Transfer Type: Sit to Stand Transfer: Assistance Level: From;Bed;Moderate Assist;x2 People Transfer: Assistive Device: Hand Hold Assist Transfers: Type Of Assistance: Verbal Cues;Knees(s) Blocked;For Balance;For Stre ngth Deficit;For Safety Considerations (Right knee blocked, no buckling noted) Other Transfer Type: Stand Pivot Other Transfer: Assistance Level: From;Bed;To;Bed Side Chair;Maximal Assist;x2 P eople Other Transfer: Assistive Device: Hand Hold Assist Other Transfer: Type Of Assistance: Verbal Cues;For Balance;For Strength Deficit ;For Safety Considerations;Requires Extra Time (Multimodal cues. Physical assist for BLE advancement, weight shifting, sequencing of task.) End Of Activity Status: Up in Chair;Nursing Notified;Instructed Patient to Reque st Assist with Mobility;Instructed Patient to Use Call Light (Chair alarm active , sling placed under patient for nursing staff use) Balance Sitting Balance: Static Sitting Balance;Minimal Assist Standing Balance: Static Standing Balance;2 UE support;Moderate Assist;x2 People Gait Comments: Not appropriate for gait Activity Limited By: (Mental status/command following) Education Persons Educated: Patient Patient Barriers To Learning: Cognitive Deficits;Impaired Communication;Family N ot Present Interventions: Repetition of Instructions Teaching Methods: Verbal Instruction Patient Response: More Instruction Required Topics: Plan/Goals of PT Interventions;Mobility Progression;Importance of Increa sing Activity;Up with Assist Only;Recommend Continued Therapy;Therapy Schedule Assessment/Progress Impaired Mobility Due To: Decreased Strength;Impaired Balance;Cognitive Deficits ;Medical Status Limitation Impaired Strength Due To: Medical Status Limitation Assessment/Progress: Should Improve w/ Continued PT [facility] 6 Clicks Basic Mobility Inpatient Turning from your back to your side while in a flat bed without using bed rails: A lot Moving from lying on your back to sitting on the side of a flat bed without usin g bedrails : A Lot Moving to and from a bed to a chair (including a wheelchair): Total Standing up from a chair using your arms (e.g. wheelchair, or bedside chair): A Lot To walk in hospital room: Total Climbing 3-5 steps with a railing: Total Basic Mobility Inpatient Raw Score: 9 Standardized (T-scale) Score: 25.8 [facility] Basic Mobility Functional Stage: -11.95-33 Limited Movement Goals Goal Formulation: Patient Unable to Participate in Goal Setting Time For Goal Achievement: 5 days, To, 7 days Patient Will Go Supine To/From Sit: w/ Minimal Assist Patient Will Transfer Bed/Chair: w/ Moderate Assist Patient Will Transfer Sit to Stand: w/ Moderate Assist Patient Will Ambulate: 31-50 Feet, w/ Moderate Assist Plan Treatment Interventions: Mobility Training;Neuromuscular Reeducation;Balance Act ivities;Coordination Training;Strengthening Plan Frequency: 5 Days per Week PT Plan for Next Visit: Bed mobility, up to chair, pre-gait PT Discharge Recommendations Recommendation: Inpatient setting;Recommend rehab medicine consult Patient Currently Requires Physical Assist With: All mobility Therapist [place] [id number] Date 08/12/2022 ING WORKER * Hernandez Paniagua DO - 08/12/2022 9:30 AM CST Neuro Critical Care Progress Note Derek Castro Jr. Admission Date: 08/09/2022 LOS: 3 days Full Code ASSESSMENT/PLAN Patient Active Problem List Diagnosis Date Noted Acute ischemic left MCA stroke (HCC) 08/09/2022 Stage 3b chronic kidney disease (HCC) Baseline Creat 2-2.3 (as of 05/2022) Hyperlipidemia Primary hypertension Hypothyroidism Seizure disorder (HCC) History of multiple strokes Global aphasia Acute right hemiparesis (HCC) CAD (coronary artery disease) 03/2010 s/p CABG x 5 Derek Castro Jr. is a 77 y.o. male With history of cad, ckd, stroke with left mc a distribution stroke here for thrombectomy and m2 occlusion Neuro: Stroke - stable ct head - start plavix today - continue mining captain keppra - tte ok but poor windows - continue statin Sedation/Pain Management: Y prn tylenol Cardiac: Hypertension, hyperlipidemia, cad - SBP goal: <160- home amlodipine an atorvastatin - MAP goal > 65 Respiratory: Intubated post procedure, now extubated - on nasal cannula GI: Corpak in place, tube feeds running Heme: no acute issues - assess for coagulopathy, maintain platelets above 100k, INR <1.5 ID: Suspected uti, no growth on culture - 3 day course of rocephin Renal: ckd stage 3- cr improved today Endocrine: Hx of hypothyroidsim- continue mining captain synthroid FEN: - Magnesium goal >2.0, i-Charlie goal > 1.0, Potassium goal >4.0 mEq/L Primary service: nsciu Consults: None The patient is critically ill with stroke. I spent 33 minutes (excluding time sp ent performing or supervising any procedures) providing and personally directing critical care services including laboratory data review, radiographic interpret ations, blood gas analysis, formulating rapid response care plan and discussing prognosis with patient and family. SUBJECTIVE Derek Castro is a 77 y.o. male. Overnight Events: No new events noted. Megan ent in bed, resting, no acute events OBJECTIVE Vital Signs: Last Filed Vital Signs: 24 Hour Ra nge BP: 149/82 (08/12 799) Temp: 37.2 C (98.9 F) (08/12 799) Pulse: 71 (08/12 827) Respirations: 11 PER MINUTE (08/12 827) SpO2: 95 % (08/12 827) O2 Device: Nasal cannula (08/12 827) O2 Liter Flow: 1 Lpm (08/12 827) BP: (126-167)/(66-91) Temp: [36.9 C (98.5 F)-37.4 C (99.3 F)] Pulse: [68-81] Respirations: [9 PER MINUTE-18 PER MINUTE] SpO2: [92 %-97 %] O2 Device: Nasal cannula O2 Liter Flow: 1 Lpm Intensity Pain Scale (Self Report): (not recorded) Vitals: 08/09/22 1715 08/10/22 0700 Weight: 97.4 kg (214 lb 11.7 oz) 99.7 kg (219 lb 12.8 oz) Intake/Output Summary: (Last 24 hours) Intake/Output Summary (Last 24 hours) at 08/12/2022 0931 Last data filed at 08/12/2022 0800 Gross per 24 hour Intake 2543 ml Output 1100 ml Net 1443 ml Stool Occurrence: 1 Physical Exam: Blood pressure (!) 149/82, pulse 71, temperature 37.2 C (98.9 F), height 172 .7 cm (5' 7.99"), weight 99.7 kg (219 lb 12.8 oz), SpO2 95 %. Hamer coma score: E: 3 - Opens eyes to loud noise or command M: 5 - Pushes away noxious stimulus V: 2 - Moans, makes unintelligible sounds Neuro: Mental Status: eyes closed, does not follow any commands, moves spontaneously Speech: None, groans a bit Cranial Nerves: Cranial nerves 2-12 INTACT. Motor: doesn't move right side Lungs: clear to auscultation bilaterally Pulmonary: Respiratory status: Stable Heart: regular rate and rhythm, S1, S2 normal, no murmur, click, rub or gallop Abdomen: soft, non-tender. Bowel sounds normal. No masses, no organomegaly Extremities: extremities normal, atraumatic, no cyanosis or edema Skin: Skin color, texture, turgor normal. No rashes or lesions Point of Care Testing: (Last 24 hours) Glucose: (!) 151 (08/12/22 0217) Lab Review: 24-hour labs: Results for orders placed or performed during the hospital encounter of 08/09/22 (from the past 24 hour(s)) BASIC METABOLIC PANEL Collection Time: 08/12/22 2:17 AM Result Value Ref Range Sodium 142 137 - 147 MMOL/L Potassium 4.1 3.5 - 5.1 MMOL/L Chloride 109 98 - 110 MMOL/L CO2 23 21 - 30 MMOL/L Anion Gap 10 3 - 12 Glucose 151 (H) 70 - 100 MG/DL Blood Urea Nitrogen 29 (H) 7 - 25 MG/DL Creatinine 1.86 (H) 0.4 - 1.24 MG/DL Calcium 8.5 8.5 - 10.6 MG/DL eGFR 37 (L) >60 mL/min CBC AND DIFF Collection Time: 08/12/22 2:17 AM Result Value Ref Range White Blood Cells 10.6 4.5 - 11.0 K/UL RBC 4.67 4.4 - 5.5 M/UL Hemoglobin 14.0 13.5 - 16.5 GM/DL Hematocrit 42.6 40 - 50 % MCV 91.4 80 - 100 FL MCH 29.9 26 - 34 PG MCHC 32.7 32.0 - 36.0 G/DL RDW 14.2 11 - 15 % Platelet Count 231 150 - 400 K/UL MPV 9.1 7 - 11 FL Neutrophils 71 41 - 77 % Lymphocytes 11 (L) 24 - 44 % Monocytes 13 (H) 4 - 12 % Eosinophils 5 0 - 5 % Basophils 0 0 - 2 % Absolute Neutrophil Count 7.53 (H) 1.8 - 7.0 K/UL Absolute Lymph Count 1.14 1.0 - 4.8 K/UL Absolute Monocyte Count 1.37 (H) 0 - 0.80 K/UL Absolute Eosinophil Count 0.57 (H) 0 - 0.45 K/UL Absolute Basophil Count 0.03 0 - 0.20 K/UL MAGNESIUM Collection Time: 08/12/22 2:17 AM Result Value Ref Range Magnesium 2.0 1.6 - 2.6 mg/dL PHOSPHORUS Collection Time: 08/12/22 2:17 AM Result Value Ref Range Phosphorus 2.3 2.0 - 4.5 MG/DL IONIZED CALCIUM Collection Time: 08/12/22 2:17 AM Result Value Ref Range Ionized Calcium 1.02 1.0 - 1.3 MMOL/L Radiology and Other Diagnostic Procedures Review: Pertinent radiologic and diag nostic procedures reviewed. Hernandez Paniagua DO Date: 08/12/[phone] ING WORKER * Isabel Lobo, ELECTRICIAN [employer]OP-CONFERENCE CONCIERGE - 08/12/2022 6:37 AM CST Neuroscience Critical Care Progre ss Note Derek Castro Jr. Admission Date: 08/09/2022 LOS: 3 days ASSESSMENT/PLAN Patient Active Problem List Diagnosis Date Noted Acute ischemic left MCA stroke (HCC) 08/09/2022 Stage 3b chronic kidney disease (HCC) Baseline Creat 2-2.3 (as of 05/2022) Hyperlipidemia Primary hypertension Hypothyroidism Seizure disorder (HCC) History of multiple strokes Global aphasia Acute right hemiparesis (HCC) CAD (coronary artery disease) 03/2010 s/p CABG x 5 Derek Castro Jr.is a 77 y.o.malewith a PMH of HTN,CAD s/pCABG,CKD, se izures, andmultiple ischemic strokes(most recently May 2022 and Jul 2022) wh o was found slumped over in a chair on 08/09with right sided weakness and aphasi a.LKW 1130. NIH was 22.He was taken to an OSH where CT/CTA showed a left M2 occlusion. He was not a TNK candidate due to recent stroke so he was thentrans ferred to [facility] and takenfor thromb[facility]. [id number] obtained and patient w as admitted to [facility] post op. Hospital and ICU course: 08/09:Admit to [facility].to IR; TICI 3. Left intubated. 08/10: TTE. CT C/A/P ordered to assess for malignancy. ENT consulted for hypophar ynx mass. Resumed ASA. 08/11: fevered ovn. Pancultured, started zosyn. Switched to rocephin. 08/12: stop rocephin; restart Plavix; decrease neuro checks Neuro: Left M2 Occlusion - s/p IRw/ aTICI3 Basal ganglia infarct Chronic vertebral artery occlusion H/O multiple ischemic strokes(R MCA 05/2022, L NILA 07/2022) Seizures - presented with sudden onset aphasia, right hemiplegia, L gaze deviation - etiology likely 2/2 atherosclerosis - Stroke risk assessment: H/O HTN No h/o DM, A1c 5.8 H/O HLD, LDL 106 H/O Prior stroke NSR on tele Echo difficult study and could not exclude shunt No tobacco use - OSH CTH: L frontal subacute infarct and R fronto parietal chronic infarct - OSH CTA:left M2 MCA, distal reconstitution.chronicocclusion of the cervi charlie right vertebral artery. - 08/09 MRI head: Acute moderate sized left MCA territory infarct with mild cortic al petechial type hemorrhage. No midline shift or herniation. Chronic right NILA and MCA territory infarcts, chronic left parietal lobe infarct, and small bilate ral cerebellar infarcts and left caudate head lacunar type infarct. - 08/09 MRA head: Interval reconstituted flow within previously occluded left M2 b ranch. No remaining large vessel occlusion is identified.Irregularity within t he left carotid siphon with at least mild associated stenosis, likely atheroscle rotic. - 08/10 CT head: Evolving L MCA territory infarct. minimal petechial type hemorrh age.Chronic right NILA/MCA territory infarcts, chronic left parietal lobe infar ct, chronic small bilateral cerebellar infarcts, and chronic left caudate head l acunar-type infarcts. chronic microvascular ischemic changes - 08/11 CT head: evolving L MCA territory infarct with slight increase in mass ef fect - Neuro checks Q2 hour -SBP < 160 - Antiplatelet therapy: cont ASSEMBLY PERSON ASA and resume plavix - continue ASSEMBLY PERSON Keppra - PT/OT/CLINICAL RESEARCH SPEC consult eval and treat - Rehab consult for assessment of post stroke care ENT: - concern for hypopharyngeal mass on intubation - ENT consulted and laryngoscopy was negative for mass - CTA Neck 08/11 with retropharyngeal course of the R common carotid artery that produces mass effect/effacement of the R oropharynx. No definite hypopharyngeal mass - no surgical needs identified Sedation/Pain Management: -agents: PRN tylenol - Assess for delirium daily Cardiac: HTN HLD CAD s/p CABG (2009) - Echo 08/10 with EF 60%, no WMA or ventricle dysfunction - Lipid panel: LDL 106, HDL 29 - Troponin, BNP wnl - SBP goal:<160 -contPTA amlodipineandatorvastatin - PRN hydralazine/labetalol available Respiratory: - intubated 08/09 for IR - extubated to NC 08/10 - 08/09 CXR: pulmonary vascular congestion with poor depth of inspiration and biba silar atelectasis. - 08/10 CT chest with multiple subcentimeter pulmonary nodules - CXR 08/11: Persistent elevated L hemidiaphragm with L>R basilar atelectasis - will need f/u CT in 3 months - requiring 1L NC oxygen for O2 sat goal > 90% - PD/V q 4 GI: - CT abd/pelvis 08/10: bilateral renal cortical atrophy and multiple renal cysts - Feeding: Corpak with TFs - neuro bowel regimen, ensure daily BM (last 08/12) - speech following Heme: - Hgb 14, Plt 231 -daily CBC - VTE prophylaxis:Mechanical prophylaxis: SCDs and start SQH ID: Fever -08/10 febrile up to 38.4 blood cultures - NGTD MRSA neg, CXR without consolidation, Procal 0.11 sputum culture with normal oropharyngeal hood UA 2+ leuks, 20-50 wbcs, culture NGTD Vanc/zosyn initially started and narrowed to rocephin for possible UTI - Tmax 37.4, WBC 10.6 - stop rocephin and monitor off antibiotics Renal: CKD, stage 3 - BaselineCr~1.8-2 -BUN 29, Cr 1.86 - straight cath PRN - Aim for normovolemia Intake/Output Summary (Last 24 hours) at 08/12/2022 0718 Last data filed at 08/12/2022 0400 Gross per 24 hour Intake 2465 ml Output 1450 ml Net 1015 ml Endocrine: Hypothyroidism - Blood glucose goal 100-180mg/dl - HbA1C 5.8 -continuePTA levothyroxine FEN: - Critical care electrolyte replacement protocol - Magnesium goal >2.0, i-Charlie goal > 1.0, Potassium goal >4.0 mEq/L - replace per protocol Primary service:NCC Consults:PT/OT/Rehab/Speech __ SUBJECTIVE Derek Castro Jr. is a 77 y.o. male. Overnight Events: none. Patient alert, nonve rbal. OBJECTIVE Vital Signs: Last Filed Vital Signs: 24 Hour Ra nge BP: 143/70 (08/12 0500) Temp: 37.3 C (99.1 F) (08/12 0400) Pulse: 73 (08/12 0500) Respirations: 9 PER MINUTE (08/12 0500) SpO2: 93 % (08/12 0500) O2 Device: Nasal cannula (08/12 0500) O2 Liter Flow: 1 Lpm (08/12 0500) BP: (126-167)/(66-91) Temp: [36.9 C (98.5 F)-37.4 C (99.3 F)] Pulse: [68-81] Respirations: [9 PER MINUTE-18 PER MINUTE] SpO2: [92 %-97 %] O2 Device: Nasal cannula O2 Liter Flow: 1 Lpm Intensity Pain Scale (Self Report): (not recorded) Vitals: 08/09/22 1715 08/10/22 0700 Weight: 97.4 kg (214 lb 11.7 oz) 99.7 kg (219 lb 12.8 oz) Lines: Peripheral Line Drains: None Stool Occurrence: 1 Physical Exam: Blood pressure (!) 143/70, pulse 73, temperature 37.3 C (99.1 F), height 172 .7 cm (5' 7.99"), weight 99.7 kg (219 lb 12.8 oz), SpO2 93 %. Neurologic: Neuro: Mental Status:alert, nonverbal Cranial Nerves: - Pupil exam: Size: 3 Reactivity: Brisk - Corneal reflex: R- prese ntL- present - Grimace/facial movement: r ight facial droop - Cough: present Motor: RUE: Strength:1/5; flicker RLE:Strength: 3/5; withdraws LUE:Strength: 3/5; localizes/spontaneous LLE:Strength: 3/5;withdraws/spontaneou s Sensory: unable to assess Lungs:clear throughout Heart:regular rate and rhythm, S1, S2 normal, no murmur, click, rub or gallop Abdomen:soft, non-tender. Bowel sounds normal. No masses, no organomegaly Extremities:extremities normal, atraumatic, no cyanosis or edema Skin:Skin color, texture, turgor normal. No rashes or lesions, right groin pun cture Lab Review: Pertinent labs reviewed Point of Care Testing: (Last 24 hours): Glucose: (!) 151 (08/12/22216) Radiology and Other Diagnostic Procedures Review: Pertinent radiology and diagn ostic procedures reviewed. DANY Vale Date: 08/12/2022 ING WORKER * Giuliana Moreno, PT - 08/11/2022 10:50 AM CST PHYSICAL THERAPY NOTE Name: Derek Castro Jr. : 1945 Age: 77 y.o. Admission Date: 08/09/2022 LOS: 2 days Date of Service: 08/11/2022 PT/OT attempted therapy assessments this AM. Patient unable to maintain alertness to participate in assessments. Patient glob ally aphasic, no family present to provide prior level of function. PT/OT positi oned patient to comfort, RN notified. PT/OT will continue to follow and initiate intervention as appropriate. Therapist: [place] DPT [id number] Date: 08/11/2022 ING WORKER * Giuliana Singh MA,CCC-CLINICAL RESEARCH SPEC - 08/11/2022 10:05 AM CST SPEECH-LANGUAGE PATHOLOGY CLINICAL SWALLOW ASSESSMENT Name: Derek Castro Jr. : 1945 Age: 77 y.o. Admission Date: 08/09/2022 LOS: 2 days Date of Service: 08/11/2022 Evaluation Summary Clinical swallow evaluation completed. Clinical Impression: Severe dysphagia Absent bolus manipulation and swallow this date. Contributing factors to dysphagia: impaired weakness/sensation/ROM secondary to CVA. Further considerations for dysphagia: Pt intubated 08/09-08/10. Hx of prior CV As (May 2022 and July 2022) although was on an oral diet. Swallow Recommendations NPO: Continue short term non-oral nutrition Medications: NG tube Oral Hygiene: Complete oral care to minimize the risk of aspirating oral bacteri a, Moistened oral swabs for oral comfort/moisture and to facilitate functional s wallow Ongoing Speech Therapy to Address: Dysphagia (will plan language evaluation in ) PO Presentation Presentations: Therapist Fed Thin Liquid: 1/2 Tsp (ice chips) [place] Thick Liquid: 1/2 Tsp (juice in attempt to have flavor elicit some form o f oral movements) Clinical Interpretation of Oral Stage Withdraw Bolus: (absent) Form Bolus: Absent formation of bolus, Suctioned bolus from oral cavity Masticate Bolus: (pt makes no attempt to masticate/manipulate ice chips) Transfer Bolus: Absent transfer, Suctioned bolus from oral cavity Anterior Bolus Spillage: Midline loss, On right Oral Residue: Throughout (suctioned) Clinical Interpretation of Pharyngeal Stage Swallow Initiation: (absent) Laryngeal Elevation: Absent Signs / Symptoms Of Aspiration: No (but high risk for aspiration secondary to cl inical presentation) Oral Mech Exam Oral Mech WFL*: No Oral Mech Exam Summary*: Exam limited by lethargy and impaired command following . Note secrections from R corner of mouth. Pt appears to have natural deintition ; missing some. R facial droop at rest. Completed oral care. Suctioned moderate secrections from buccal sulci. Attempted Swallow Strategies Small Bites/Sips: Not effective Objective Relevant Med Background: Derek Castro Jr.is a 77 y.o.malewith a PMH of HTN, CAD s/pCABG,CKD, seizures, andmultiple ischemic strokes(most recently May 2022 and Jul 2022) with a LKN of 1130 who was found slumped over in a chair around 1200with right sided weakness and aphasia.NIH was 22.Patient was ta paty to [facility] where CT/CTA showed a left M2 occlusion. He was not a TNK candidate due to recent stroke so [facility] was [facility]. He w as takenfor thrombectomy. [id number] obtained and patient was admitted to [facility] post op. Hewas left intubated. Hospital and ICU course: 08/09:Admit to [facility].to IR; TICI 3. Left intubated. 08/10:TTE. CT C/A/P ordered to assess for malignancy. ENT consulted for hypopha rynx mass. Resumed ASA. 08/11: fevered ovn. Pancultured, started zosyn. Switched to rocephin. Psychosocial Status: Participates in Therapy with Encouragement, Lethargic Persons Present: None Subjective Pain: Patient demonstrates no signs of pain Trach Presence: No Feeding Tube Present During Eval: Corpak Nutrition Nutrition Prior To Hospitalization: Oral, Regular, Thin Liquids Current Form Of Nutrition: NPO, IV Fluids, NG Education Persons Educated: (RN) Barriers To Learning: Impaired Communication, Decreased Alertness, Family Not Pr esent Interventions: Staff Educated Teaching Methods: Verbal Topics: Dysphagia Patient Response: Unable to Verbalize Understanding, Unable to Demonstrate Under standing Goal Formulation: Patient Unable to participate in Goal Setting Assessment/Prognosis Plan: 3-5 x/week Prognosis: Guarded NOMS Dysphagia Ratin-Severe Dysphagia -Not able to swallow anything safely b y mouth. All nutrition/hydration received through non-oral means (e.g., nasogast yandy tube, PEG). Clinical Swallow Goals Goal : The patient will participate in ongoing assessment of swallow function w/ max cueing for alertness/attention Speech Discharge Recommendations Recommendation: Inpatient setting Therapist:Giuliana Singh MA, L/CCC-CLINICAL RESEARCH SPEC Voalte: [id number] Weekend pager: [phone] Date:08/11/2022 ING WORKER * Sanchez Selby MD - 08/11/2022 6:15 AM CST Neuroscience Critical Care Progre ss Note Derek Castro Jr. Admission Date: 08/09/2022 LOS: 2 days ASSESSMENT/PLAN Patient Active Problem List Diagnosis Date Noted Acute ischemic left MCA stroke (HCC) 08/09/2022 Stage 3b chronic kidney disease (HCC) Baseline Creat 2-2.3 (as of 05/2022) Hyperlipidemia Primary hypertension Hypothyroidism Seizure disorder (HCC) History of multiple strokes Global aphasia Acute right hemiparesis (HCC) CAD (coronary artery disease) 03/2010 s/p CABG x 5 Derek Castro Jr.is a 77 y.o.malewith a PMH of HTN,CAD s/pCABG,CKD, se izures, andmultiple ischemic strokes(most recently May 2022 and Jul 2022) wi th a LKN of 1130 who was found slumped over in a chair around 1200with right s ided weakness and aphasia.NIH was 22.Patient was taken to [facility] where CT/CTA showed a left M2 occlusion. He was not a TNK candidate due to r ecent stroke so [facility] He was takenfor thrombectom y. UABV3xid obtained and patient was admitted to [facility] post op. Hewas left i ntubated. Hospital and ICU course: 08/09:Admit to [facility].to IR; TICI 3. Left intubated. 08/10: TTE. CT C/A/P ordered to assess for malignancy. ENT consulted for hypophar ynx mass. Resumed ASA. 08/11: fevered ovn. Pancultured, started zosyn. Switched to rocephin. Neuro: Left M2 Occlusions/p IRw/ aTICI3 Basal ganglia infarct Cervical right vertebral artery occlusion H/O multiple ischemic strokes(R MCA 05/2022, L NILA 07/2022) Seizures - presented with sudden onset aphasia, right hemiplegia, L gaze deviation - etiology likely 2/2 atherosclerosis Imaging/Diagnositcs - OSH CTH: L frontal subacute infarct and R fronto parietal chronic infarct - OSH CTA:left M2 MCA, distal reconstitution.chronicocclusion of the cervi charlie right vertebral artery. - 08/09 MRI head: Acute moderate sized left MCA territory infarct with mild cortic al petechial type hemorrhage. No midline shift or herniation. Chronic right NILA and MCA territory infarcts, chronic left parietal lobe infarct, and small bilate ral cerebellar infarcts and left caudate head lacunar type infarct. - 08/09 MRA head: Interval reconstituted flow within previously occluded left M2 b ranch. No remaining large vessel occlusion is identified.Irregularity within t he left carotid siphon with at least mild associated stenosis, likely atheroscle rotic. - 08/10 CT head: Evolving acute/recent left MCA territory infarct.There are some minimal foci of hyperdense petechial type hemorrhage, concordant with the MRI fi ndings. No gross hemorrhagic conversion. No midline shift, hydrocephalus, or her niation.Chronic right NILA and MCA territory infarcts, chronic left parietal lo be infarct, chronic small bilateral cerebellar infarcts, and chronic left caudat e head lacunar-type infarcts. 4. Moderate patchy cerebral white matter hypodensities, likely due to chronic microvascular ischemic changes - 08/10 CT C/A/P: No thoracic lymphadenopathy. Multiple subcentimeter pulmonary n odules. No dominant pulmonary mass. No abdominopelvic inflammatory mass, lymphad enopathy, or ascites. Mild distal colonic diverticulosis. Bilateral renal cortical atrophy. Multiple bilat eral renal cysts. Plan > stability CT head ordered for tomorrow 08/12 > Neuro checks Q1 hour > TTE w/ no acute abnormalities; difficult saline study, could not r/o shunt >SBP < 160 > Antiplatelet therapy: cont ASSEMBLY PERSON ASA, cont to hold plavix - if CTH stable, will plan to start plavix 08/12 > continue ASSEMBLY PERSON Keppra > if neuro exam does not improve, could consider EEG > PT/OT/CLINICAL RESEARCH SPEC consult eval and treat > Rehab consult for assessment of post stroke care Sedation/Pain Management: -agents: PRN tylenol - Assess for delirium daily Cardiac: HTN HLD CAD s/p CABG (2009) - Lipid panel: LDL 106, HDL 29 - Troponin, BNP wnl - 08/10 TTE Left Ventricle: The left ventricular size is normal. The left ventricular wa ll thickness is normal. Concentric remodeling. The left ventricular systolic fun ction is normal. The visually estimated ejection fraction is 60%. There are no s egmental wall motion abnormalities. Normal left ventricular diastolic function. Right Ventricle: The right ventricular size is normal. The right ventricular systolic function is normal. Aortic valve is not well visualized, focally thickened and calcified, but no hemodynamically significant valvular abnormalities were noted. Technically very difficult agitated saline study, cannot exclude small right to left shunting. Plan > SBP goal:<160 >contPTA amlodipineandatorvastatin > cont ASA, cont to hold ASSEMBLY PERSON plavix - if CTH stable, will plan to start plavix 08/12 Respiratory: Inability to Maintain Airway Patency - resolved Hypopharyngeal Mass - extubated to NC 08/10 - 08/09 CXR: pulmonary vascular congestion with poor depth of inspiration and biba silar atelectasis. - anesthesia reported a L hypopharyngeal "mass" seen during intubation Plan > ENT consulted for pharyngeal mass, appreciate assistance - CT neck w/ contrast this AM - read pending > Ct Chest w/ multiple subcentimeter pulmonary nodules - radiology recommend follow-up CT chest in 3 months to evaluate for stability GI: - Feeding: TFs -s/pCorpak - neuro bowel regimen, ensure daily BM - nutrition, CLINICAL RESEARCH SPEC consulted Heme: -daily CBC - VTE prophylaxis:Mechanical prophylaxis;Sequential compression device ID: UTI -febrile 08/10 ovn to 38.4 - 08/10 blood cultures - NGTD - MRSA neg, rpt CXR similar to prior, absence of leukocytosis - UA 2+ leuks, 20-50 wbcs, culture pending - sputum gram stain with moderate mixed bacteria, culture pending - zosyn (08/10-08/11), rocephin (08/11-current) Plan > cont to follow blood, urine, sputum cultures > d/c'd zosyn, plan for 5d rocephin for management of UTI Renal: CKD, stage 3 - BaselineCr~1.8-2 -lake removed 08/10, - Aim for normovolemia Endocrine: Hypothyroidism - Blood glucose goal 100-180mg/dl - HbA1C 5.8 -continuePTA levothyroxine FEN: - Critical care electrolyte replacement protocol - Magnesium goal >2.0, i-Charlie goal > 1.0, Potassium goal >4.0 mEq/L Primary service:NCC Consults:PT/OT/Rehab/Speech __ SUBJECTIVE Derek Castro Jr. is a 77 y.o. male. Overnight Events: febrile to 101.1. Colón cult ures, CXR obtained, started on zosyn. VSS. OBJECTIVE Vital Signs: Last Filed Vital Signs: 24 Hour Ra nge BP: 142/94 (08/11 0500) Temp: 37.1 C (98.7 F) (08/11 0400) Pulse: 76 (08/11 0500) Respirations: 12 PER MINUTE (08/11 0500) SpO2: 94 % (08/11 0500) O2 Percent: 50 % (08/10 07) O2 Device: None (Room air) (08/10 1600) O2 Liter Flow: 2 Lpm (08/10 1200) Height: 172.7 cm (5' 7.99") (08/10 07) Weight: 99.7 kg (219 lb 12.8 oz) (08/10 07) SpO2 Pulse: 80 (08/11 0200) BP: (119-163)/(67-94) Temp: [36.2 C (97.1 F)-38.4 C (101.1 F)] Pulse: [63-96] Respirations: [9 PER MINUTE-17 PER MINUTE] SpO2: [91 %-98 %] O2 Percent: [50 %] O2 Device: None (Room air) O2 Liter Flow: 2 Lpm Intensity Pain Scale (Self Report): (not recorded) Vitals: 08/09/22 1715 08/10/22 0700 Weight: 97.4 kg (214 lb 11.7 oz) 99.7 kg (219 lb 12.8 oz) Lines: Peripheral Line Drains: None Scheduled Meds:amLODIPine (NORVASC) tablet 10 mg, 10 mg, Per NG tube, QDAY aspirin EC tablet 81 mg, 81 mg, Oral, QDAY atorvastatin (LIPITOR) tablet 80 mg, 80 mg, Per NG tube, QDAY chlorhexidine gluconate (PERIDEX) 0.12 % solution 15 mL, 15 mL, Swish & Spit, BID(8-20) famotidine (PEPCID) injection 20 mg, 20 mg, Intravenous, QDAY levETIRAcetam (KEPPRA) IV push 500 mg, 500 mg, Intravenous, BID levothyroxine (SYNTHROID) tablet 112 mcg, 112 mcg, Per NG tube, QDAY(07) milk of magnesium oral suspension 30 mL, 30 mL, Oral, QDAY piperacillin/tazobactam (ZOSYN) 4.5 g in sodium chloride 0.9% (NS) 100 mL IVPB ( MB+)(EXTENDED INFUSION), 4.5 g, Intravenous, Q6H* Protein Supplement Packets, , SEE ADMIN INSTRUCTIONS, QDAY senna/docusate (SENOKOT-S) tablet 1 tablet, 1 tablet, Per NG tube, BID Continuous Infusions: Diet Critical Care Enteral Feeding Volume Based Infusion 40 mL/hr at 3 1830 PRN and Respiratory Meds:calcium gluconate IV PRN (News Producer from Rx) AND Ion ized Calcium PRN AND Notify Physician Ongoing, fentaNYL citrate PF Q1H PRN, labetalol (NORMODYNE; TRANDATE) injection Q1H PRN, magnesium sulfate PRN AND Magnesium PRN AND Notify Physician Ongoing, pancrelipase 20,880 Units/sodium bicarbonate 650 mg (KU CLOG DESTROYER) PRN (News Producer from Rx), potassium chloride PRN OR potassium chloride PRN OR potassium chloride in water PRN Critical Care Vitals: ICP Monitoring: PA Catheter: Hemodynamics/Oxycalcs: BP (!) 142/94 | Pulse 76 | Temp 37.1 C (98.7 F) | Ht 172.7 cm (5' 7.99") | Wt 99.7 kg (219 lb 12.8 oz) | SpO2 94% | BMI 33.43 kg/m Intake/Output Summary: (Last 24 hours) Intake/Output Summary (Last 24 hours) at 08/11/2022 0616 Last data filed at 08/11/2022 0400 Gross per 24 hour Intake 1756.44 ml Output 905 ml Net 851.44 ml Physical Exam: Blood pressure (!) 142/94, pulse 76, temperature 37.1 C (98.7 F), height 172 .7 cm (5' 7.99"), weight 99.7 kg (219 lb 12.8 oz), SpO2 94 %. Neurologic: Jerson coma score: E: 4 - opens eyes spontane ously M: 5 - localizes pain V: 1 - Makes no noise Neuro: Mental Status: Cranial Nerves: - Pupil exam: Size: 2Reactivity: Brisk - Corneal reflex: R- prese ntL- present - Grimace/facial movement: p resent, right facial droop - Cough: present - Gag reflex: present Motor: RUE: Strength:1/5; flicker RLE:Strength: 3/5; withdraws LUE:Strength: 3/5; localizes LLE:Strength: 3/5;withdraws Sensory: unable to assess Lungs:decreased bilaterally Heart:regular rate and rhythm, S1, S2 normal, no murmur, click, rub or gallop Abdomen:soft, non-tender. Bowel sounds normal. No masses, no organomegaly Extremities:extremities normal, atraumatic, no cyanosis or edema Skin:Skin color, texture, turgor normal. No rashes or lesions, right groin pun cture Lab Review: Pertinent labs reviewed Medications: amLODIPine (NORVASC) tablet 10 mg, 10 mg, Per NG tube, QDAY aspirin EC tablet 81 mg, 81 mg, Oral, QDAY atorvastatin (LIPITOR) tablet 80 mg, 80 mg, Per NG tube, QDAY chlorhexidine gluconate (PERIDEX) 0.12 % solution 15 mL, 15 mL, Swish & Spit, BID(8-20) famotidine (PEPCID) injection 20 mg, 20 mg, Intravenous, QDAY levETIRAcetam (KEPPRA) IV push 500 mg, 500 mg, Intravenous, BID levothyroxine (SYNTHROID) tablet 112 mcg, 112 mcg, Per NG tube, QDAY(07) milk of magnesium oral suspension 30 mL, 30 mL, Oral, QDAY piperacillin/tazobactam (ZOSYN) 4.5 g in sodium chloride 0.9% (NS) 100 mL IVPB ( MB+)(EXTENDED INFUSION), 4.5 g, Intravenous, Q6H* Protein Supplement Packets, , SEE ADMIN INSTRUCTIONS, QDAY senna/docusate (SENOKOT-S) tablet 1 tablet, 1 tablet, Per NG tube, BID Point of Care Testing: (Last 24 hours): Glucose: (!) 177 (08/11/22 0255) Radiology and Other Diagnostic Procedures Review: Pertinent radiology and diagn ostic procedures reviewed. Sanchez Selby MD3 Date: 08/11/2022 ING WORKER Associated attestation - Hernandez Paniagua DO - 08/11/2022 10:48 AM HEATING WORKER I have seen, personally fully evaluated, and discussed patient with Dr John cisneros. I agree with the objective findings and agree with the plan of care as docume nted by the resident with the exceptions noted. The patient is critically ill wi th stroke. I spent 33 minutes (excluding time spent performing or supervising an y procedures) providing and personally directing critical care services nafisain g laboratory data review, radiographic interpretations, blood gas analysis, form ulating rapid response care plan and discussing prognosis with patient and famil y. * Isabella Dunham, PEDRO - 08/10/2022 9:19 PM CST Pharmacy Vancomycin Note Subjective: Derek Castro Jr. is a 77 y.o. male being treated for pneumonia/sepsis. Assessment: Target levels for this patient: 1. AUC (mcg*h/mL): 400-600 Plan: Vancomycin 2000mg IV x1 followed by 1250mg IV q24 hours Next scheduled level(s): TBD Pharmacy will continue to monitor and adjust therapy as needed. Isabella Dunham, LindseyD, BCPS, BCCCP Objective: Current Vancomycin Orders Medication Dose Route Frequency vancomycin (VANCOCIN) 2,000 mg in sodium chloride 0.9% (NS) 290 mL IVPB 2,000 mg Intravenous ONCE [START ON 08/11/2022] vancomycin (VANCOCIN) in 0.9% sodium chloride IVPB 1,250 m g 1,250 mg Intravenous Q24H* vancomycin, pharmacy to manage 1 each Service Per Pharmacy Start Date of vancomycin therapy: 08/10/2022 Additional Abx: Zosyn Cultures: , , , White Blood Cells Date/Time Value Ref Range Status 08/10/2022 0238 11.2 (H) 4.5 - 11.0 K/UL Final 08/09/2022 1730 7.5 4.5 - 11.0 K/UL Final Creatinine Date/Time Value Ref Range Status 08/10/2022 0238 1.75 (H) 0.4 - 1.24 MG/DL Final 08/09/2022 1730 1.75 (H) 0.4 - 1.24 MG/DL Final Blood Urea Nitrogen Date/Time Value Ref Range Status 08/10/2022 0238 24 7 - 25 MG/DL Final Estimated CrCl: ~40 Intake/Output Summary (Last 24 hours) at 08/10/2022 2119 Last data filed at 08/10/2022 2100 Gross per 24 hour Intake 2256.04 ml Output 1270 ml Net 986.04 ml UOP: WNL Actual Weight: 99.7 kg (219 lb 12.8 oz) Dosing BW: 99 kg Isabella Dunham PHARMD 08/10/2022 ING WORKER * Renae Steen OT - 08/10/2022 2:12 PM CST OCCUPATIONAL THERAPY NOTE Name: Derek Castro Jr. : 1945 Age: 77 y.o. Admission Date: 08/09/2022 LOS: 1 day Date of Service: 08/10/2022 OT/PT orders received and appreciated. Per bedside RN, patient extubated this AM and is not following commands at this time. OT/PT will continue to follow and p rovide intervention as indicated. Therapist: TIANA Soriano, OTR/L [id number] Date: 08/10/2022 ING WORKER * Giuliana Singh MA,CCC-CLINICAL RESEARCH SPEC - 08/10/2022 2:10 PM CST SPEECH-LANGUAGE PATHOLOGY Orders appreciated for a clinical swallow evaluation. RN requesting to hold evaluation today. Pt has corpak in place. Will plan to f/u for completion of evaluation as ordered Giuliana Singh MA,L/CCC-CLINICAL RESEARCH SPEC Voalte: [id number] ING WORKER * Sanchez Selby MD - 08/10/2022 6:14 AM CST Neuroscience Critical Care Progre ss Note Derek Castro Jr. Admission Date: 08/09/2022 LOS: 1 day ASSESSMENT/PLAN Patient Active Problem List Diagnosis Date Noted Acute ischemic left MCA stroke (HCC) 08/09/2022 Stage 3b chronic kidney disease (HCC) Baseline Creat 2-2.3 (as of 05/2022) Hyperlipidemia Primary hypertension Hypothyroidism Seizure disorder (HCC) History of multiple strokes Global aphasia Acute right hemiparesis (HCC) CAD (coronary artery disease) 03/2010 s/p CABG x 5 Derek Castro Jr. is a 77 y.o. male with a PMH of HTN, CAD s/p CABG, CKD, seizures , and multiple ischemic strokes (most recently May 2022 and Jul 2022) with a LKN of 1130 who was found slumped over in a chair around 1200 with right sided weak ness and aphasia. NIH was 22. Patient was taken to [facility] where C T/CTA showed a left M2 occlusion. He was not a TNK candidate due to recent strok e so he was then transferred to [facility]. He was taken for thrombectomy. TICI 3 was obtained and patient was admitted to [facility] post op. He was left intubated. Hospital and ICU course: 08/09: Admit to [facility] to IR; TICI 3. Left intubated. 08/10: TTE. CT C/A/P ordered to assess for malignancy. ENT consulted for hypophar ynx mass. Resumed ASA. Neuro: Left M2 Occlusion s/p IR w/ a TICI 3 Basal ganglia infarct Cervical right vertebral artery occlusion H/O multiple ischemic strokes (R MCA 05/2022, L NILA 07/2022) Seizures - presented with sudden onset aphasia, right hemiplegia, L gaze deviation Imaging/Diagnositcs - OSH CTH: L frontal subacute infarct and R fronto parietal chronic infarct - OSH CTA: left M2 MCA, distal reconstitution. 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 - 08/09 MRI head 1. Acute moderate sized left MCA territory infarct with mild cortical petechia l type hemorrhage or distal branches or vascular thrombosis in the infarct rachael tories. No midline shift or herniation. 2. Chronic right NILA and MCA territory infarcts, chronic left parietal lobe i nfarct, and small bilateral cerebellar infarcts and left caudate head lacunar ty pe infarct. - 08/09 MRA head 1. Interval reconstituted flow within previously occluded left M2 branch. No r emaining large vessel occlusion is identified. 2. Irregularity within the left carotid siphon with at least mild associated s tenosis, likely atherosclerotic. - 08/10 CT head 1. Evolving acute/recent left MCA territory infarct involving the lateral left frontal lobe, anterior insula, and external capsule, slightly better demonstrat ed on recent MRI. There are some minimal foci of hyperdense petechial type hemor rhage, concordant with the MRI findings. No gross hemorrhagic conversion. 2. Similar mild associated localized mass effect and sulcal effacement. No mid line shift, hydrocephalus, or herniation. 3. Chronic right NILA and MCA territory infarcts, chronic left parietal lobe in farct, chronic small bilateral cerebellar infarcts, and chronic left caudate hea d lacunar-type infarcts. 4. Moderate patchy cerebral white matter hypodensities, likely due to chronic microvascular ischemic changes Stroke Symptom Onset time: LKW 1130 TPA given at: not a candidate due to recent ischemic stroke Initial NIH: 22 IR: TICI 3 Suspected localization of Stroke Sx:L MCA Suspected etiology:cardioembolic Stroke Risk Factor Assessment: Risk factor Present? Target Patient at target? 1. Hypertension Yes BP < 140 Yes 2. Diabetes No HBA1C<7 Pending 3. Dyslipidemia Yes LDL<70? No - 106 4. H/o stroke/TIA Yes 5. Atrial fibrillation No 6. Tobacco abuse No Plan: > Neuro checks Q1 hour > TTE w/ no acute abnormalities; difficult saline study, could not r/o shunt > CT C/A/P ordered to assess for malignancy > SBP < 160 > Antiplatelet therapy: restarting ASSEMBLY PERSON ASA, cont to hold plavix > continue ASSEMBLY PERSON Keppra > if neuro exam does not improve, could consider EEG > PT/OT/CLINICAL RESEARCH SPEC consult eval and treat > Rehab consult for assessment of post stroke care Sedation/Pain Management: - sedation: propofol - agents: PRN fentanyl - Assess for delirium daily Cardiac: HTN HLD CAD s/p CABG (2009) - Lipid panel: LDL 106, HDL 29 - Troponin, BNP wnl - 10 TTE Left Ventricle: The left ventricular size is normal. The left ventricular wa ll thickness is normal. Concentric remodeling. The left ventricular systolic fun ction is normal. The visually estimated ejection fraction is 60%. There are no s egmental wall motion abnormalities. Normal left ventricular diastolic function. Right Ventricle: The right ventricular size is normal. The right ventricular systolic function is normal. Aortic valve is not well visualized, focally thickened and calcified, but no hemodynamically significant valvular abnormalities were noted. Technically very difficult agitated saline study, cannot exclude small right to left shunting. Plan > SBP goal: <160 > cont ASSEMBLY PERSON amlodipine and atorvastatin > restarting ASA, cont to hold ASSEMBLY PERSON plavix Respiratory: Inability to Maintain Airway Patency Hypopharyngeal Mass Date of Intubation: 08/09 Reason: IR - left intubated d/t secretions and concern for pulmonary edema on OSH chest xra y - 08/09 CXR: pulmonary vascular congestion with poor depth of inspiration and biba silar atelectasis. - Vent settings: V/AC: 500, PEEP 5, 40% - AB.36, 43, 180, 23.1 - anesthesia reported a L hypopharyngeal "mass" seen during intubation Plan > will pause sedation after CT for full exam and to assess appropriateness for extubation > will consult ENT after extubation for further evaluation of mass GI: - Feeding: NPO - s/p Corpak - holding TFs for now - neuro bowel regimen, ensure daily BM - CLINICAL RESEARCH SPEC consulted Heme: - daily CBC - VTE prophylaxis: Mechanical prophylaxis; Sequential compression device ID: - afebrile, WBC 11.2 - aim for normothermia Renal: CKD, stage 3 - Baseline Cr ~1.8 - lake for retention - Aim for normovolemia Endocrine: Hypothyroidism - Blood glucose goal 100-180mg/dl - HbA1C pending - continue ASSEMBLY PERSON levothyroxine FEN: - IVF: 50 ml/hr - Critical care electrolyte replacement protocol - Magnesium goal >2.0, i-Charlie goal > 1.0, Potassium goal >4.0 mEq/L Primary service: NCC Consults: PT/OT/Rehab/Speech __ SUBJECTIVE Derek Castro JrSourav is a 77 y.o. male. Overnight Events: RUE found to be flaccid an d no longer with active movement against gravity or withdrawing from pain. MRI/M RA obtained with no acute changes. No family at the bedside this AM. Pt remains intubated. OBJECTIVE Vital Signs: Last Filed Vital Signs: 24 Hour Ra nge BP: 113/75 (08/100) Temp: 36 C (96.8 F) (08/10 399) Pulse: 60 (08/10 602) Respirations: 5 PER MINUTE (08/10 602) SpO2: 97 % (08/10 602) O2 Percent: 50 % (08/10 599) O2 Device: Other (Comment) (08/10 599) Height: 172.7 cm (5' 8") (08/09 1714) Weight: 97.4 kg (214 lb 11.7 oz) (08/09 1714) BP: (106-168)/(72-103) Temp: [36 C (96.8 F)-37 C (98.6 F)] Pulse: [59-91] Respirations: [5 PER MINUTE-19 PER MINUTE] SpO2: [95 %-100 %] O2 Percent: [50 %] O2 Device: Other (Comment) Intensity Pain Scale (Self Report): (not recorded) Vitals: 08/09/221714 Weight: 97.4 kg (214 lb 11.7 oz) Artificial airway: Endotracheal Tube Ventilator/ Respiratory Therapy: Yes: Mode: V/AC+ Set Vt (ml): [500 milliliters] Tidal Volume Spont (mL): [469 milliliters-808 milliliters] Set RR: [12 breaths/minutes] Total Respiratory Rate (Breaths/Min): [5 breaths/minutes-14 breaths/minutes] Minute Volume (L/min): [4.51 liters/minutes-6.53 liters/minutes] %MVspon: [0 %-100 %] O2%: [40 %] PIP Actual: [15 cm H20-20 cm H20] PEEP/CPAP: [5 cm H2O] PSupport: [10 cm H20] Mean Airway Pressure: [7 cm H2O-8.1 cm H2O] Vent weaning trial: Per protocol Lines: Peripheral Line Drains: Lake Catheter Scheduled Meds:amLODIPine (NORVASC) tablet 10 mg, 10 mg, Per NG tube, QDAY atorvastatin (LIPITOR) tablet 80 mg, 80 mg, Per NG tube, QDAY chlorhexidine gluconate (PERIDEX) 0.12 % solution 15 mL, 15 mL, Swish & Spit, BID(8-20) famotidine (PEPCID) injection 20 mg, 20 mg, Intravenous, QDAY LACTATED RINGERS IV SOLP (Cabinet Override), , , NOW levETIRAcetam (KEPPRA) IV push 500 mg, 500 mg, Intravenous, BID levothyroxine (SYNTHROID) tablet 112 mcg, 112 mcg, Per NG tube, QDAY(07) milk of magnesium oral suspension 30 mL, 30 mL, Oral, QDAY senna/docusate (SENOKOT-S) tablet 1 tablet, 1 tablet, Per NG tube, BID Continuous Infusions: propofoL (DIPRIVAN) 10 mg/mL IV drip 40 mcg/kg/min (08/10/22 0446) sodium chloride 0.9 % infusion 50 mL/hr at 08/09/22 8294 PRN and Respiratory Meds:calcium gluconate IV PRN (News Producer from Rx) AND Ion ized Calcium PRN AND Notify Physician Ongoing, fentaNYL citrate PF Q1H PRN, labetalol (NORMODYNE; TRANDATE) injection Q1H PRN, magnesium sulfate PRN AND Magnesium PRN AND Notify Physician Ongoing, potassium chloride PRN OR p otassium chloride PRN OR potassium chloride in water PRN Critical Care Vitals: ICP Monitoring: PA Catheter: Hemodynamics/Oxycalcs: BP 113/75 (BP Source: Arm, Right Upper) | Pulse 60 | Temp 36 C (96.8 F) | Ht 172.7 cm (5' 8") | Wt 97.4 kg (214 lb 11.7 oz) | SpO2 97% | BMI 32.65 kg/ m Mode: PS/CPAP Set Vt (ml): [500 milliliters] Tidal Volume Spont (mL): [465 milliliters-808 milliliters] Set RR: [12 breaths/minutes] Total Respiratory Rate (Breaths/Min): [5 breaths/minutes-12 breaths/minutes] Minute Volume (L/min): [4.51 liters/minutes-6.02 liters/minutes] %MVspon: [0 %-100 %] O2%: [40 %] PIP Actual: [15 cm H20-18 cm H20] PEEP/CPAP: [5 cm H2O] PSupport: [10 cm H20] Mean Airway Pressure: [7 cm H2O-7.6 cm H2O] Intake/Output Summary: (Last 24 hours) Intake/Output Summary (Last 24 hours) at 08/10/2022 0615 Last data filed at 08/10/2022 0600 Gross per 24 hour Intake 2255.47 ml Output 515 ml Net 1740.47 ml Physical Exam: Blood pressure 113/75, pulse 60, temperature 36 C (96.8 F), height 172.7 cm (5' 8"), weight 97.4 kg (214 lb 11.7 oz), SpO2 97 %. Jerson coma score: E: 1 - Does not open eyes M: 4 - Moves part of body but does not remove noxious stimulus V: 1 - Makes no noise Neuro: Mental Status: Intubated, does not open eyes to voice, does not fol low commands Cranial Nerves: - Pupil exam: Size: 2 Reactivity: Brisk - Corneal reflex: R - present L - present - Grimace/facial movement: present, right facial droop - Cough: present - Gag reflex: present Motor: RUE: Strength: 3/5; withdraws RLE: Strength: 1/5; flicker LUE: Strength: 3/5; withdraws LLE: Strength: 3/5; withdraws Sensory: unable to assess Lungs: decreased bilaterally Heart: regular rate and rhythm, S1, S2 normal, no murmur, click, rub or gallop Abdomen: soft, non-tender. Bowel sounds normal. No masses, no organomegaly Extremities: extremities normal, atraumatic, no cyanosis or edema Skin: Skin color, texture, turgor normal. No rashes or lesions, right groin punc ture Lab Review: 24-hour labs: Results for orders placed or performed during the hospital encounter of 08/09/22 (from the past 24 hour(s)) CBC AND DIFF Collection Time: 08/09/22 5:30 PM Result Value Ref Range White Blood Cells 7.5 4.5 - 11.0 K/UL RBC 5.41 4.4 - 5.5 M/UL Hemoglobin 16.5 13.5 - 16.5 GM/DL Hematocrit 49.1 40 - 50 % MCV 90.7 80 - 100 FL MCH 30.5 26 - 34 PG MCHC 33.6 32.0 - 36.0 G/DL RDW 14.4 11 - 15 % Platelet Count 261 150 - 400 K/UL MPV 8.7 7 - 11 FL Neutrophils 79 (H) 41 - 77 % Lymphocytes 11 (L) 24 - 44 % Monocytes 8 4 - 12 % Eosinophils 1 0 - 5 % Basophils 1 0 - 2 % Absolute Neutrophil Count 6.00 1.8 - 7.0 K/UL Absolute Lymph Count 0.83 (L) 1.0 - 4.8 K/UL Absolute Monocyte Count 0.58 0 - 0.80 K/UL Absolute Eosinophil Count 0.07 0 - 0.45 K/UL Absolute Basophil Count 0.04 0 - 0.20 K/UL MAGNESIUM Collection Time: 08/09/22 5:30 PM Result Value Ref Range Magnesium 1.9 1.6 - 2.6 mg/dL PHOSPHORUS Collection Time: 08/09/22 5:30 PM Result Value Ref Range Phosphorus 3.0 2.0 - 4.5 MG/DL COMPREHENSIVE METABOLIC PANEL Collection Time: 08/09/22 5:30 PM Result Value Ref Range Sodium 142 137 - 147 MMOL/L Potassium 4.5 3.5 - 5.1 MMOL/L Chloride 106 98 - 110 MMOL/L Glucose 108 (H) 70 - 100 MG/DL Blood Urea Nitrogen 24 7 - 25 MG/DL Creatinine 1.75 (H) 0.4 - 1.24 MG/DL Calcium 9.1 8.5 - 10.6 MG/DL Total Protein 6.7 6.0 - 8.0 G/DL Total Bilirubin 0.7 0.3 - 1.2 MG/DL Albumin 3.7 3.5 - 5.0 G/DL Alk Phosphatase 132 (H) 25 - 110 U/L AST (SGOT) 19 7 - 40 U/L CO2 26 21 - 30 MMOL/L ALT (SGPT) 18 7 - 56 U/L Anion Gap 10 3 - 12 eGFR 40 (L) >60 mL/min BLOOD GASES, ARTERIAL Collection Time: 08/09/22 5:30 PM Result Value Ref Range pH-Arterial 7.36 7.35 - 7.45 pCO2-Arterial 43 35 - 45 MMHG pO2-Arterial 180 (H) 80 - 100 MMHG Base Deficit-Arterial 1.6 MMOL/L O2 Sat-Arterial 99.2 (H) 95 - 99 % [id number] 23.1 21 - 28 MMOL/L BNP (B-TYPE NATRIURETIC PEPTI) Collection Time: 08/09/22 5:30 PM Result Value Ref Range B Type Natriuretic Peptide 79.0 0 - 100 PG/ML TROPONIN-I Collection Time: 08/09/22 5:30 PM Result Value Ref Range Troponin-I 0.01 0.0 - 0.05 NG/ML LIPID PROFILE Collection Time: 08/10/22 2:38 AM Result Value Ref Range Cholesterol 146 <200 MG/DL Triglycerides 130 <150 MG/DL HDL 29 (L) >40 MG/DL LDL 106 (H) <100 mg/dL VLDL 26 MG/DL Non HDL Cholesterol 117 MG/DL BASIC METABOLIC PANEL Collection Time: 08/10/22 2:38 AM Result Value Ref Range Sodium 140 137 - 147 MMOL/L Potassium 4.3 3.5 - 5.1 MMOL/L Chloride 107 98 - 110 MMOL/L CO2 25 21 - 30 MMOL/L Anion Gap 8 3 - 12 Glucose 114 (H) 70 - 100 MG/DL Blood Urea Nitrogen 24 7 - 25 MG/DL Creatinine 1.75 (H) 0.4 - 1.24 MG/DL Calcium 8.6 8.5 - 10.6 MG/DL eGFR 40 (L) >60 mL/min CBC AND DIFF Collection Time: 08/10/22 2:38 AM Result Value Ref Range White Blood Cells 11.2 (H) 4.5 - 11.0 K/UL RBC 4.77 4.4 - 5.5 M/UL Hemoglobin 14.2 13.5 - 16.5 GM/DL Hematocrit 43.2 40 - 50 % MCV 90.7 80 - 100 FL MCH 29.8 26 - 34 PG MCHC 32.8 32.0 - 36.0 G/DL RDW 14.3 11 - 15 % Platelet Count 235 150 - 400 K/UL MPV 8.9 7 - 11 FL Neutrophils 81 (H) 41 - 77 % Lymphocytes 8 (L) 24 - 44 % Monocytes 10 4 - 12 % Eosinophils 1 0 - 5 % Basophils 0 0 - 2 % Absolute Neutrophil Count 9.00 (H) 1.8 - 7.0 K/UL Absolute Lymph Count 0.93 (L) 1.0 - 4.8 K/UL Absolute Monocyte Count 1.14 (H) 0 - 0.80 K/UL Absolute Eosinophil Count 0.08 0 - 0.45 K/UL Absolute Basophil Count 0.04 0 - 0.20 K/UL MAGNESIUM Collection Time: 08/10/22 2:38 AM Result Value Ref Range Magnesium 2.0 1.6 - 2.6 mg/dL PHOSPHORUS Collection Time: 08/10/22 2:38 AM Result Value Ref Range Phosphorus 3.6 2.0 - 4.5 MG/DL IONIZED CALCIUM Collection Time: 08/10/22 2:38 AM Result Value Ref Range Ionized Calcium 1.18 1.0 - 1.3 MMOL/L Medications: amLODIPine (NORVASC) tablet 10 mg, 10 mg, Per NG tube, QDAY atorvastatin (LIPITOR) tablet 80 mg, 80 mg, Per NG tube, QDAY chlorhexidine gluconate (PERIDEX) 0.12 % solution 15 mL, 15 mL, Swish & Spit, BID(8-20) famotidine (PEPCID) injection 20 mg, 20 mg, Intravenous, QDAY LACTATED RINGERS IV SOLP (Cabinet Override), , , NOW levETIRAcetam (KEPPRA) IV push 500 mg, 500 mg, Intravenous, BID levothyroxine (SYNTHROID) tablet 112 mcg, 112 mcg, Per NG tube, QDAY(07) milk of magnesium oral suspension 30 mL, 30 mL, Oral, QDAY senna/docusate (SENOKOT-S) tablet 1 tablet, 1 tablet, Per NG tube, BID Point of Care Testing: (Last 24 hours): Glucose: (!) 114 (08/10/22 0238) Radiology and Other Diagnostic Procedures Review: Pertinent radiology and diagn ostic procedures reviewed Sanchez Selby MD Anesthesia PGY-3 Available on Voalte Date: 08/10/2022 ING WORKER Associated attestation - Hernandez Paniagua DO - 08/11/2022 7:38 AM HEATING WORKER I have seen, personally fully evaluated, and discussed patient with Dr John cisneros. I agree with the objective findings and agree with the plan of care as docume nted by the resident with the exceptions noted. The patient is critically ill wi th stroke, resp failure. I spent 44 minutes (excluding time spent performing or supervising any procedures) providing and personally directing critical care ser vices including laboratory data review, radiographic interpretations, blood gas analysis, formulating rapid response care plan and discussing prognosis with pat adrienne and family. * Markus Monet - 08/10/2022 6:05 AM CST Adult Mechanical Ventilator Liberation Name: Derek Castro Jr. : 1945 Age: 77 y.o. Admission Date: 08/09/2022 LOS: 1 day Date of Service: 08/10/2022 Adult Mechanical Ventilator Liberation: Twice daily Weaning Readiness Screen Met (RT Only):: Yes Initial Weaning Minute Volume (L/min): 5.81 L/min Initial Weaning Respiratory Rate: 8 breaths/min Initial Weaning Tidal Vol (mL) (Calc.): 726 mL Initial RSBI (Calculated): 11 Spontaneous Breathing Trial Completed (RT Only): Yes (Twice Daily) Post Weaning Minute Volume (L/min): 4.51 L/min Post Weaning Respiratory Rate: 5 breaths/min Post Weaning Tidal Vol (mL) (Calc.): 902 mL NIF Ventilated: 0 cm H2O $$ Vital Capacity (mL): 0 ml Post RSBI (Calculated): 6 RSBI Ratio: -45.45 Spontaneous Breathing Trial Successful (Twice Daily): No, VC < or equal to 10 mL/kg IBW;No, NIF Ventilated > or equal to -20 ING WORKER * Loreta Stevens BSN - 08/09/2022 4:11 PM CST Anesthesia staff present to monitor patient airway, vital signs, and medications . See anesthesia docflow. This RN will assist as needed. ING WORKER documented in this encounter H&P Notes * Isabel Lobo, JENNA-CONFERENCE CONCIERGE - 08/09/2022 3:02 PM CST Neuro Critical Care History and Physical Derek Castro Jr. Admission Date: 08/09/2022 LOS: 0 days Full Code ASSESSMENT/PLAN Patient Active Problem List Diagnosis Date Noted Acute ischemic left MCA stroke (HCC) 08/09/2022 Stage 3b chronic kidney disease (HCC) Baseline Creat 2-2.3 (as of 05/2022) Hyperlipidemia Primary hypertension Hypothyroidism Seizure disorder (HCC) History of multiple strokes Global aphasia Acute right hemiparesis (HCC) CAD (coronary artery disease) 03/2010 s/p CABG x 5 Derek Castro Jr. is a 77 y.o. male with a PMH of HTN, CAD s/p CABG, CKD, seizures , and multiple ischemic strokes (most recently May 2022 and Jul 2022) with a LKN of 1130 who was found slumped over in a chair around 1200 with right sided weak ness and aphasia. NIH was 22. Patient was taken to [facility] where C T/CTA showed a left M2 occlusion. He was not a TNK candidate due to recent strok e so he was then transferred to [facility]. He was taken for thrombectomy. TICI 3 was obtained and patient was admitted to [facility] post op. He was left intubated. Hospital and ICU course: 08/09: Admit to [facility]. to IR; TICI 3. Left intubated. Neuro: Left M2 Occlusion s/p IR w/ a TICI 3 Basal ganglia infarct Cervical right vertebral artery occlusion H/O multiple ischemic strokes (R MCA 05/2022, L NILA 07/2022) Seizures - CT Head at OSH with L frontal subacute infarct and R fronto parietal chronic i nfarct - CTA at OSH: left M2 MCA, distal reconstitution. chronic occlusion of the cervi charlie right vertebral artery. Stroke Symptom Onset time: LKW 1130 TPA given at: not a candidate due to recent ischemic stroke Initial NIH: 22 IR: TICI 3 Suspected localization of Stroke Sx: L MCA Suspected etiology: cardioembolic Stroke Risk Factor Assessment: Risk factor Present? Target Patient at target? Comments 1. Hypertension Yes BP < 140 Yes 2. Diabetes No HBA1C<7 Pending 3. Dyslipidemia Yes LDL<70? Pending 4. H/o stroke/TIA Yes 5. Atrial fibrillation No If yes, anticoag? If no anticoagulation, why not? 6. Tobacco abuse No Quit date Plan: - Admit to NEICU on telemetry - Neuro checks Q1 hour - MRI head W/WO - Echocardiogram - SBP < 140 - Antiplatelet therapy: holding ASSEMBLY PERSON DAPT until stroke burden assessed on MRI - continue ASSEMBLY PERSON Keppra - if neuro exm does not improve, consider EEG - PT/OT/CLINICAL RESEARCH SPEC consult eval and treat - Rehab consult for assessment of post stroke care Sedation/Pain Management: - sedation: propofol - agents: PRN fentanyl - Assess for delirium daily Cardiac: HTN HLD CAD s/p CABG - SBP goal: <140 - ECHO ordered - resume ASSEMBLY PERSON amlodipine and atorvastatin - Lipid panel pending - Troponin pending - BNP pending Respiratory: Inability to Maintain Airway Patency Hypopharyngeal Mass Date of Intubation: 08/09 Reason: IR - left intubated d/t secretions and concern for pulmonary edema on OSH chest xra y - Chest xray at OSH: "mild central vascular congestion" - Repeat chest xray pending - Vent settings: A/C: 500, 12, PEEP 5, 60% - AB.36, 43, 180, 23.1 - plan for SBT in AM - anesthesia reported a L hypopharyngeal "mass" seen during intubation - consider ENT consult for evaluation GI: - Feeding: NPO - Place Corpak - hold off on tube feeds in case of extubation in AM - neuro bowel regimen, ensure daily BM - speech consulted Heme: - Hgb 16.5, Plt 261 - daily CBC - VTE prophylaxis: Mechanical prophylaxis; Sequential compression device ID: - afebrile, WBC 7.5 - aim for normothermia Renal: CKD - BMP pending - Baseline Cr unknown, 1.8 at OSH - lake for retention - NS at 50 ml/hr - Aim for normovolemia Endocrine: Hypothyroidism - Blood glucose goal 100-180mg/dl - HbA1C pending - continue ASSEMBLY PERSON levothyroxine FEN: - IVF: 50 ml/hr - Critical care electrolyte replacement protocol - Magnesium goal >2.0, i-Charlie goal > 1.0, Potassium goal >4.0 mEq/L Primary service: NCC Consults: PT/OT/Rehab/Speech SUBJECTIVE Chief Complaint: Right sided weakness and aphasia History of Present Illness: Derek Castro is a 77 y.o. male PMH of HTN, CAD s/ p CABG, CKD, seizures, and multiple ischemic strokes (most recently May 2022 and Jul 2022) with a LKN of 1130 who was found slumped over in a chair around 1200 with right sided weakness and aphasia. NIH was 22. Patient was taken to [facility] where CT/CTA showed a left M2 occlusion and patient was transferre d for thrombectomy. TICI 3 was obtained and patient was admitted to [facility] post op. Patient was left intubated post op. Medical History: Diagnosis Date CAD (coronary artery disease) 03/2010 s/p CABG x 5 CKD (chronic kidney disease) stage 3, GFR 30-59 ml/min ([facility]) Deep vein thrombosis (DVT) of right lower extremity (HCC) 05/2010 s/p CABG Gout History of left NILA stroke 07/2022 History of right MCA stroke 05/2022 Hyperlipidemia Hypothyroidism Primary hypertension Seizure disorder ([facility]) Surgical History: Procedure Laterality Date CORONARY ARTERY BYPASS GRAFT 05/2010 x 5 vessel Family history reviewed; non-contributory Social History Social History Narrative Not on file Code Status: Full Code Decision Maker: : Joycelyn Immunizations (includes history and patient reported): There is no immunization history on file for this patient. Allergies: Patient has no known allergies. Medications Prior to Admission Medication Sig allopurinoL (ZYLOPRIM) 100 mg tablet Take 50 mg by mouth daily. Take with fo od. amLODIPine (NORVASC) 10 mg tablet Take 10 mg by mouth daily. aspirin EC 81 mg tablet Take 81 mg by mouth daily. Take with food. atorvastatin (LIPITOR) 80 mg tablet Take 80 mg by mouth daily. cetirizine (ZYRTEC) 10 mg tablet Take 10 mg by mouth daily as needed for All ergy symptoms. CHOLEcalciferoL (vitamin D3) 25 mcg (1,000 unit) chew Chew 1,000 Units by mo ut daily. clopiDOGreL (PLAVIX) 75 mg tablet Take 75 mg by mouth daily. fish oil- omega 3-DHA/EPA 300/1,000 mg capsule Take 1 capsule by mouth daily . levETIRAcetam (KEPPRA) 500 mg tablet Take 500 mg by mouth twice daily. levothyroxine (SYNTHROID) 112 mcg tablet Take 112 mcg by mouth daily [address] before breakfast. melatonin 5 mg chew Chew by mouth at bedtime as needed. MULTIVITAMIN PO Take by mouth. Review of Systems: Review of systems not obtained from patient due to patient factors. OBJECTIVE Vital Signs: Last Filed Vital Signs: 24 Hour [facility] BP: 146/94 (08/09 1714) Temp: 36.4 C (97.6 F) (08/09 1709) Pulse: 86 (08/09 1714) Respirations: 18 PER MINUTE (08/09 1714) SpO2: 95 % (08/09 1714) O2 Percent: 50 % (08/09 1755) Height: 172.7 cm (5' 8") (08/09 1714) Weight: 97.4 kg (214 lb 11.7 oz) (08/09 1714) BP: (146-165)/(94-103) Temp: [36.4 C (97.6 F)] Pulse: [86-91] Respirations: [14 PER MINUTE-18 PER MINUTE] SpO2: [95 %] O2 Percent: [50 %] Intensity Pain Scale (Self Report): (not recorded) Vitals: 08/09/221714 Weight: 97.4 kg (214 lb 11.7 oz) Artificial airway: Endotracheal Tube Vent weaning trial: Not applicable Lines: None Drains: Lake Intake/Output Summary: (Last 24 hours) Intake/Output Summary (Last 24 hours) at 08/09/2022 175 Last data filed at 08/09/2022 1715 Gross per 24 hour Intake 800 ml Output -- Net 800 ml Physical Exam: Blood pressure (!) 146/94, pulse 86, temperature 36.4 C (97.6 F), height 172 .7 cm (5' 8"), weight 97.4 kg (214 lb 11.7 oz), SpO2 95 %. Hamer coma score: E: 1 - Does not open eyes M: 4 - Moves part of body but does not remove noxious stimulus V: 1 - Makes no noise Neuro: Mental Status: Intubated, does not open eyes to voice, does not follow commands Cranial Nerves: - Pupil exam: Size: 2 Reactivity: Brisk - Corneal reflex: R - present L - present - Grimace/facial movement: present, right facial droop - Cough: present - Gag reflex: present Motor: RUE: Strength: 2/5; flexion RLE: Strength: 1/5; flicker LUE: Strength: 4/5; localize LLE: Strength: 2/5; flexion Sensory: mild distal sensory loss Lungs: clear to auscultation bilaterally Heart: regular rate and rhythm, S1, S2 normal, no murmur, click, rub or gallop Abdomen: soft, non-tender. Bowel sounds normal. No masses, no organomegaly Extremities: extremities normal, atraumatic, no cyanosis or edema Skin: Skin color, texture, turgor normal. No rashes or lesions, right groin punc ture Point of Care Testing: (Last 24 hours): Lab Review: 24-hour labs: Results for orders placed or performed during the hospital encounter of 08/09/22 (from the past 24 hour(s)) BLOOD GASES, ARTERIAL Collection Time: 08/09/22 5:30 PM Result Value Ref Range pH-Arterial 7.36 7.35 - 7.45 pCO2-Arterial 43 35 - 45 MMHG pO2-Arterial 180 (H) 80 - 100 MMHG Base Deficit-Arterial 1.6 MMOL/L O2 Sat-Arterial 99.2 (H) 95 - 99 % [id number]-Lub 23.1 21 - 28 MMOL/L Radiology and Other Diagnostic Procedures Review: Pertinent radiologic and diag nostic procedures reviewed. I spent 64 minutes managing the care of this patient. Derek Castro Jr. is in crit ical condition with ischemic stroke, HTN, CAD. Cares included: detailed neurolog ic and systems exam, medication review, laboratory data review and interpretatio n, electrolyte management, review of available imaging, DVT/PE prophylaxis revie w, diet review, activity review, mechanical ventilation and sedation management, and coordination of care with consulted teams Isabel Lobo, ELECTRICIAN SHOP-CONFERENCE CONCIERGE Date: 08/09/[phone] ING WORKER documented in this encounter Procedure Notes * Misti Rm MD - 08/20/2022 4:10 PM CST Immediate Post Procedure Note Date: 08/20/2022 Attending Physician: Alden Winkler MD Performing Provider: Misti Rm MD Consent: Consent obtained from patient. Time out performed: Consent obtained, correct patient verified, correct procedur e verified, correct site verified, patient marked as necessary. Pre/Post Procedure Diagnosis: Dysphagia, stroke Indications: same Procedure(s): G tube placement Findings: Appropriate window for g tube placement Estimated Blood Loss: None/Negligible Specimen(s) Removed/Disposition: None Complications: None Patient Tolerated Procedure: Well Post-Procedure Condition: stable Misti Rm MD ING WORKER * Markus Uribe MD - 08/09/2022 4:57 PM CST Immediate Post Procedure Note Date: 08/09/2022 Attending Physician: Rony Finishing Frame Runner(s): None Procedure(s): Acute stroke intervention Indications: Acute stroke, high NIHSS Findings: -Right M2 major division occlusion -Aspiration, TICI 3, complete recan, no underlying athero Anesthesia: GETA Time out performed: Consent obtained, correct patient verified, correct procedur e verified, correct site verified, patient marked as necessary. Estimated Blood Loss: None/Negligible Specimen(s) Removed/Disposition: None Complications: None Closure: Angio-seal Comments: -to NICU -SBP to reflect TICI 3 -neurochecks upon arrival -extubation per anesthesia/NICU Markus Uribe MD ING WORKER documented in this encounter Consult Notes * Ligia Phelps - 08/20/2022 9:47 AM CST SPEECH-LANGUAGE PATHOLOGY VIDEOSWALLOW ASSESSMENT EVALUATION SUMMARY Videoswallow Summary*: Severe dysphagia. Videoswallow study significantly limited by reduced PO trials d/t poor command f ollowing and participation 2/2 pt's severe aphasia. Pt demonstrated inconsistent swallow initiation (1-2 times) throughout study despite max cues provided, cons uming 3-5ml of thin liquid in total. No penetration/aspiration event noted; temple tara due to limited findings of study and given overall clinical presentation, ag ree with plan for PEG tube placement this afternoon. Oral phase characterized by inconsistent oral opening and minimal effort in bolu s withdrawal (resulting in anterior labial spillage) and incoordinated bolus con trol and transfer. Pharyngeal phase: Amount of PO trial was too limited to meaningfully assess individual components of pharyngeal swallow. We were able to visualize the beginning of just one swall ow. Roughly, we noted complete velopharyngeal closure, impaired base of tongue r etraction, absent/impaired epiglottic inversion, incomplete closure of the laryn geal vestibule and diffuse pharyngeal residue post swallow. Swallow Recommendations PO: Ice chips only NPO: Continue short term non-oral nutrition, Consider intermediate card tender non-oral nutriti on Medications: NG tube Ice Chip Trials: (5-7 per hour) Supervision: 1:1 Positioning: Upright as tolerated Swallow Strategies: Feeding assistance needed Oral Hygiene: 3 times per day, Complete oral care to minimize the risk of aspira ting oral bacteria Plan: 2-3 x/week Prognosis*: Guarded NOMS Dysphagia Rating*: 1-Severe Dysphagia Objective* Relevant Med Background: Derek Castro is a 77 yo male with a PMHx of HTN/HLD, CAD s /p CABG x5 in 2009, RLE DVT, CKD stage 3, seizures, multiple ischemic strokes (2 020, May 2022, Jul 2022) with residual LUE ataxia, hypothyroidism who presented to an OSH ([facility]) on 2/9 for right sided weakness and aphasia. C T/CTA showed a left M2 occlusion. He was not a TNK candidate due to recent strok e, so he was transferred to [facility] for further management. He is now s/p thrombec mohan and was admitted to the [facility] post-op. Patient transferred to the IM service on 08/13. Patient has ongoing severe dysphagia and aphasia. Plan for repeat video swallow Saturday morning and peg tube placement that afternoon if he fails. CXR 08/11/2022 IMPRESSION/FINDING Endotracheal tube has been removed. Enteric tube courses below the diaphragm and out of the [id number]. Loop recorder overlies the left chest. Persistent elevated left hemidiaphragm with left greater than right basilar atelectasis. No pleural effusion. Stable mediastinal contours and heart size. Median sternotomy and CABG. CT Head 08/11/2022 IMPRESSION 1. Further evolution of the recent moderate-sized left MCA territory infarct, with slight increase in localized mass effect. No midline shift, descending herniation or hydrocephalus. 2. No gross hemorrhagic conversion. 3. Redemonstration of old infarcts in the right NILA and MCA territories, left parietal lobe, bilateral cerebellar hemispheres and left caudate head. Superimposed moderate nonspecific supratentorial white matter disease is likely due to chronic microvascular ischemic change. Handedness: Right Lives With: Spouse Receives Help From: None Needed Psychosocial Status: Unable to Participate (Comment) (unable to follow commands consistently to take sips/bites) Persons Present: None Subjective* Pain: Patient has no complaint of pain Pain Level Current*: No pain Trach Presence: No Feeding Tube Present During Eval: Corpak Nutrition* Nutrition Prior To Hospitalization: Oral, Regular, Thin Liquids Current Form Of Nutrition: NPO, NG Views / Seating* Views / Seating: Lateral View PO Presentation Presentations: Therapist Fed Thin Liquid: 1/2 Tsp, 1 oz, Straw (10ml cups w/ straw) [place] Thick Liquid: 1/2 Tsp (juice in attempt to have flavor elicit some form o f oral movements) Education* Persons Educated: Patient Barriers To Learning: Impaired Communication, Family Not Present Interventions: Staff Educated Teaching Methods: Verbal Topics: Aphasia, Dysphagia Patient Response: Unable to Demonstrate Understanding, More Instruction Required Videoswallow Goals* Goal : Pt will participate in PO trials of ice chips to utilize his swallow func tion given mod cues for attention Goal : Pt will participate in ongoing assessment of dysphaiga given mod cues for attention Therapist: Ligia Phelps MA, CF-CLINICAL RESEARCH SPEC Voalte [id number] Date: 08/20/2022 ING WORKER * Jared Salgado APRN-CONFERENCE CONCIERGE - 08/14/2022 12:12 PM CSTAssociated Order(s): CONSULT INTERVENTIONAL RADIOLOGY PHYSICIAN Interventional Radiology Consult Note with Pre-procedural History and Physical Admission Date: 08/09/2022 LOS: 5 days Principal Problem: Acute ischemic left MCA stroke (HCC) Active Problems: CAD (coronary artery disease) Stage 3b chronic kidney disease (HCC) Hyperlipidemia Primary hypertension Hypothyroidism Seizure disorder (HCC) History of multiple strokes Global aphasia Acute right hemiparesis (HCC) Reason for consult: Dysphagia Assessment: - Admitted with Stroke - Dysphagia and increased aspiration risk 2/2 recent stroke with dysphagia - Anatomy amenable to G-tube placement on review of imaging - Labs, medications, and allergies meet procedural protocol. - Pt is not on a therapeutic blood thinner - Platelet Count Date Value Ref Range Status 08/14/2022 264 150 - 400 K/UL Final ; No results found for: INR Plan: - Will proceed with G-tube placement - For sedation purposes, please keep NPO prior to procedure. Procedure: G-tube placement IR Pre Procedure Notes: Consent via daughter Chief Complaint: Stroke Previous Anesthetic/Sedation History: Reviewed. Code Status: Full Code History of present illness: Derek Castro is a 77 y.o. male patient with hx of HTN/HLD,CAD s/pCABG x5 in 2009, RLE DVT,CKD stage 3, seizures,multiple ischemic strokes(2019,No v 2021, Jul 2022) with residual LUE ataxia, hypothyroidism who presented to an O ([facility]) on 08/09 for right sided weakness and aphasia. IR consu lted for G-tube placement.. See ROS below for current symptoms Review of Systems Constitutional: negative Respiratory: negative Gastrointestinal: negative Medications Scheduled Meds:amLODIPine (NORVASC) tablet 10 mg, 10 mg, Per NG tube, QDAY aspirin EC tablet 81 mg, 81 mg, Oral, QDAY atorvastatin (LIPITOR) tablet 80 mg, 80 mg, Per NG tube, QDAY chlorhexidine gluconate (PERIDEX) 0.12 % solution 15 mL, 15 mL, Swish & Spit, BID(-) clopiDOGreL (PLAVIX) tablet 75 mg, 75 mg, Per NG tube, QDAY senna (SENOKOT) oral syrup 8.8 mg, 8.8 mg, Per NG tube, BID And docusate sodium (COLACE) oral solution 50 mg, 50 mg, Oral, BID doxazosin (CARDURA) tablet 1 mg, 1 mg, Per NG tube, QDAY heparin (porcine) PF syringe 5,000 Units, 5,000 Units, Subcutaneous, Q8H levETIRAcetam (KEPPRA) IV push 500 mg, 500 mg, Intravenous, BID levothyroxine (SYNTHROID) tablet 112 mcg, 112 mcg, Per NG tube, QDAY() milk of magnesium oral suspension 30 mL, 30 mL, Oral, QDAY [Held by Provider] Protein Supplement Packets, , SEE ADMIN INSTRUCTIONS, QDAY Continuous Infusions: [Held by Provider] Diet Enteral Feeding Standard Infusion Stopped (08/14/22 0015) PRN and Respiratory Meds:acetaminophen Q4H PRN, emollient PRN, labetalol (NORMOD YNE; TRANDATE) injection Q6H PRN, pancrelipase 20,880 Units/sodium bicarbonate 6 50 mg (KU CLOG DESTROYER) PRN (News Producer from Rx) Objective Vital Signs: Last Filed Vital Signs: 24 Gladis r Range BP: 139/77 (08/14 0800) Temp: 37.1 C (98.8 F) (08/14 0800) Pulse: 70 (02/14 0800) Respirations: 16 PER MINUTE (08/14 799) SpO2: 92 % (08/14 799) O2 Device: None (Room air) (08/14 799) BP: (110-179)/(72-90) Temp: [36.6 C (97.9 F)-37.4 C (99.3 F)] Pulse: [70-82] Respirations: [16 PER MINUTE-18 PER MINUTE] SpO2: [92 %-96 %] O2 Device: None (Room air) Vitals: 08/09/22 1715 08/10/22 0700 Weight: 97.4 kg (214 lb 11.7 oz) 99.7 kg (219 lb 12.8 oz) Intake/Output Summary: (Last 24 hours) Intake/Output Summary (Last 24 hours) at 08/14/2022 1213 Last data filed at 08/14/2022 0900 Gross per 24 hour Intake 1249 ml Output 2150 ml Net -901 ml Stool Occurrence: 0 Physical Exam General appearance: alert and no distress Neurologic: Grossly normal, at baseline Lungs: Nonlabored with normal effort Abdomen: soft, non-tender. Airway: airway assessment performed Mallampati II (soft palate, uvula, fauces visible) Pre procedure anxiolysis plan: Midazolam Intra-procedural Sedation/Medication Plan: Fentanyl, Lidocaine, and Midazolam Personal history of sedation complications: Denies adverse event. Family history of sedation complications: Denies adverse event. Medications for Reversal: Naloxone and Flumazenil Discussion/Reviews: Physician has discussed risks and alternatives of this type of sedation and above planned procedures with other - Daughter NPO Status: Acceptable Status: N/A Lab/Radiology/Other Diagnostic Tests: Labs: Hematology: Lab Results Component Value Date HGB 14.1 08/14/2022 HCT 42.2 08/14/2022 PLTCT 264 08/14/2022 WBC 9.3 08/14/2022 NEUT 71 08/14/2022 ANC 6.61 08/14/2022 ALC 0.97 08/14/2022 NEL 12 08/14/2022 AMC 1.13 08/14/2022 ABC 0.04 08/14/2022 MCV 91.1 08/14/2022 MCHC 33.3 08/14/2022 MPV 9.5 08/14/2022 RDW 14.2 08/14/2022 , Coagulation: No results found for: PT, PTT, INR and General Chemistry: Lab Results Component Value Date NA 141 08/14/2022 K 4.1 08/14/2022 CL 106 08/14/2022 GAP 9 08/14/2022 BUN 33 08/14/2022 CR 1.64 08/14/2022 GLU 115 08/14/2022 CA 9.2 08/14/2022 ALBUMIN 3.7 08/09/2022 LACTIC 1.2 08/10/2022 OBSCA 1.20 08/13/2022 MG 2.0 08/13/2022 TOTBILI 0.7 08/09/2022 Radiology: Reviewed. We appreciate being able to participate in this patient's care. Please page with any questions or concerns. DANY Lyons Pgr [phone] IR Team Pager [phone] (After-hours and Weekends) ING WORKER * Myra Herndon APRN-NP - 08/13/2022 12:45 PM CSTAssociated Order(s): CONSULT REHABILITATION MEDICINE PHYSICIAN Physical Medicine & Rehabilitation Consult Service Name: Derek Castro Jr. : 1945 Age: 77 y.o. Admission Date: 08/09/2022 LOS: 4 days Date of Service: 08/13/2022 Date of Service: 08/13/2022 Financial Class: Payor: [employer] / Plan: [employer] [place] / Product Type: *No Product type* / Referring Physician: Ankush Willis DO Reason for Consult: evaluate for Post-Acute Rehab/Placement Precautions: Fall, seizure Weight Bearing Precautions: WBAT Assessment & Plan: Principal Problem: Acute ischemic left MCA stroke (HCC) Active Problems: CAD (coronary artery disease) Stage 3b chronic kidney disease (HCC) Hyperlipidemia Primary hypertension Hypothyroidism Seizure disorder (HCC) History of multiple strokes Global aphasia Acute right hemiparesis (HCC) Gait abnormality Impaired mobility/ADLs Impaired transfers Cognitive Deficits Derek Castro is a 77 y.o. year old male admitted to [facility] on 08/09/2022 with the following issues: stroke - Left MCA s/p thrombectomy with TICI 3 obtained Recommendations: Post-acute care rehabilitation needs: Potentially Acute inpatient rehabilitation - pending barriers below Patients medical complexity with recent Left MCA CVA, in the setting of prior Right MCA CVA warrants daily physician oversight and functional goals consiste nt with intensive rehabilitation in acute inpatient rehabilitation. Although edith deleon likely has medical complexity as well as functional goals to warrant acute inpatient rehab setting, please note potential barriers to Acute IPR: Potential Barriers to Acute IPR: *NG & Corpaks: Nutrition: NG Tubes and Corpaks are not typically allowed on acute inpatient rehabilitatio n. Please address the patient's nutritional access for more permanent source, a s the patient will need to either be meeting nutritional requirements orally or have a more definitive long-term enteral access (which may include consideration for PEG tube). *Carryover: The patient will need to be following commands (consistently 1 step with progression of 2 step commands) during therapies with signs of carryover pr ior to consideration for acute inpatient rehabilitation. Overall Functional Goals Gait and mobility Min A Transfers Min A Upper body dressing Mod-I Lower body dressing Min A Toileting Min A Bathing Min A Cognition / Communication Speech therapy will evaluate and treat cognition and c ommunication deficits and assess for safe swallow Impairments: cognitive impairments, communication deficits, dysphagia, hemiplegi a, loss of coordination and weakness. Activity Limitations: eating, grooming, bathing, dressing - upper, dressing - l ower, toileting, transfers, ambulation, wheelchair, comprehension, expression an d problem solving Participation Restrictions: unable to return home safely Family / Patient Dispositional Goals: return home with family assistance Barriers/Facilitators: Barriers: High burden of care Facilitators: good home setup, good family / social support, improving strength / endurance and improving medical condition Rehabilitation Prognosis: Fair to good Tolerance for three hours of therapy a day: Fair to good Impaired gait/mobility/transfers: The patient will benefit from continued work with PT to address mobility deficit s Impaired ADLs: The patient will benefit from ongoing OT to address functional deficits Cognitive Impairment, Global Aphagia: Dysphagia: The patient will benefit from ongoing CLINICAL RESEARCH SPEC to address cognitive, communication de ficits as well as dysphagia Thank you for this consultation. Please call our consult pager with questions o r concerns. Myra Herndon, JENNA-CONFERENCE CONCIERGE Rehab Consult Service Available via [facility] History of Present Illness: CC: Unable to report CC re: aphagia; Hospital Course: Mr. Castro is a pleasant 77 y.o. male with PMH of CAD s/p CABG, C KD, HTN, multiple ischemic CVAs in rigth NILA, MCA territories, Left pariental lo be and bilateral cereberllar hemispheres (2019, May 2022, and Jul 2022)- patient has mild left sided ataxia, who was transferred from [facility] on 08/09 after being fou nd slumped over by his . Patient was found to have left sided weakness, apha tracie. OSH CT/CTA noted Left M2 occlusion. He was not a candidate for TNK related to recent ischemic stroke. Patient was transferred to [facility]-- he underwent throm bectomy with TICI 3. MRI with acute moderate L MCA territory infarct. He was ext ubated 08/10. Repeat CT head 08/10 with evolving moderate sided left MCA territory infarct, with slight increased in localized mass effect. Patient has continued dysphagia, warranting cor bib for nutrition. Primary team has consulted PT and OT, and will continue working with therapies t o address functional and mobility deficits,. Our service, rehab medicine, is now consulted for post-acute rehab/placement recommendations. Patient has been seen by CLINICAL RESEARCH SPEC for dysphagia/cognitive eval. The patient's family/social support consists of: of the home. Has son, who lives on the property in a different home- yet can assist 21/01. Patient was inde pendent of all ADLs, IADLs prior to admission. Ramp to enter home. Medical History: Diagnosis Date CAD (coronary artery disease) 03/2010 s/p CABG x 5 CKD (chronic kidney disease) stage 3, GFR 30-59 ml/min ([facility]) Deep vein thrombosis (DVT) of right lower extremity (HCC) 05/2010 s/p CABG Gout History of left NILA stroke 07/2022 History of right MCA stroke 05/2022 Hyperlipidemia Hypothyroidism Primary hypertension Seizure disorder (HCC) Surgical History: Procedure Laterality Date CORONARY ARTERY BYPASS GRAFT 03/2010 x 5 vessel Social History Socioeconomic History Marital status: Tobacco Use Smoking status: Former Types: Cigarettes Smokeless tobacco: Never Vaping Use Vaping Use: Never used Substance and Sexual Activity Alcohol use: Not Currently Drug use: Not Currently History reviewed. No pertinent family history. Scheduled Meds:amLODIPine (NORVASC) tablet 10 mg, 10 mg, Per NG tube, QDAY aspirin EC tablet 81 mg, 81 mg, Oral, QDAY atorvastatin (LIPITOR) tablet 80 mg, 80 mg, Per NG tube, QDAY chlorhexidine gluconate (PERIDEX) 0.12 % solution 15 mL, 15 mL, Swish & Spit, BID(8-20) clopiDOGreL (PLAVIX) tablet 75 mg, 75 mg, Per NG tube, QDAY senna (SENOKOT) oral syrup 8.8 mg, 8.8 mg, Per NG tube, BID And docusate sodium (COLACE) oral solution 50 mg, 50 mg, Oral, BID heparin (porcine) PF syringe 5,000 Units, 5,000 Units, Subcutaneous, Q8H levETIRAcetam (KEPPRA) IV push 500 mg, 500 mg, Intravenous, BID levothyroxine (SYNTHROID) tablet 112 mcg, 112 mcg, Per NG tube, QDAY(07) milk of magnesium oral suspension 30 mL, 30 mL, Oral, QDAY Protein Supplement Packets, , SEE ADMIN INSTRUCTIONS, QDAY Continuous Infusions: Diet Enteral Feeding Standard Infusion 60 mL/hr at 08/13/22 1242 PRN and Respiratory Meds:acetaminophen Q4H PRN, emollient PRN, labetalol (NORMOD YNE; TRANDATE) injection Q1H PRN, pancrelipase 20,880 Units/sodium bicarbonate 6 50 mg (KU CLOG DESTROYER) PRN (News Producer from Rx) No Known Allergies Prior Level of Function: Gait and mobility Indep Transfers Indep Upper body dressing Indep Lower body dressing Indep Toileting Indep Bathing Indep/Mod I Home Environment: Home Situation: Lives with Family (Spouse) (08/13/2022 11:00 AM) No data recorded Type of Home: House (08/13/2022 11:23 AM) Entry Stairs: Ramp (08/13/2022 11:00 AM) In-Home Stairs: Able to Live on One Level (08/13/2022 11:00 AM) Comments: Patient unable to give PLOF or home setup, information gathered from E Per chart, patient independent with mobility and ADLs without a device prior to admit. (08/13/2022 11:00 AM) Current Level Of Function: PT Gait:Gait Distance: 10 feet (x2 with seated rest in between) Gait: Assistance Level: Minimal Assist, x2 People Gait: Assistive Device: Hand Hold Assist Bed Mobility/Transfers Bed Mobility: Rolling: Maximum Assist, Verbal Cues, Bed Flat, Safety Considerati ons, Assist with Trunk, Assist with B LE (Max toward left, Min toward right.) Bed Mobility: Supine to Sit: Moderate Assist, Assist with Trunk, Head of Bed Jessica vated, No Rail Transfer Type: Sit to/from Stand Transfer: Assistance Level: To/From, Bed, Toilet, Bed Side Chair, Minimal Assist , x2 People (maximal assist to sit the first time likely due to aphasia) Transfer: Assistive Device: Hand Hold Assist Transfers: Type Of Assistance: For Balance, For Safety Considerations Other Transfer Type: Stand Pivot Other Transfer: Assistance Level: From, Bed, To, Bed Side Chair, Maximal Assist, x2 People Other Transfer: Assistive Device: Hand Hold Assist Other Transfer: Type Of Assistance: Verbal Cues, For Balance, For Strength Defic it, For Safety Considerations, Requires Extra Time (Multimodal cues. Physical as sist for BLE advancement, weight shifting, sequencing of task.) End Of Activity Status: Up in Chair, Nursing Notified, Instructed Patient to Req uest Assist with Mobility, Instructed Patient to Use Call Light (Chair alarm act los, sling placed under patient for nursing staff use) OT ADL's Where Assessed: In Bathroom, Edge of Bed Grooming Assist: Total Assist Grooming Deficits: Wash/Dry Hands UE Dressing Assist: Total Assist LE Dressing Assist: Total Assist LE Dressing Deficits: Don/Doff R Sock, Don/Doff L Sock Toileting Assist: Minimal Assist Toileting Deficits: Steadying Comment: Patient reaches for wash rag while seated EOB, but doesn't use it appro priately and requires total assistance to wash face. Patient tolerates walking t o/from toilet and sitting on toilet but does not utilize it. CLINICAL RESEARCH SPEC SWALLOW EVALUATION SUMMARY Plan: 3-5 x/week Prognosis: Guarded Review of Systems: A 14 point review of systems was negative except for: that noted in the HPI Physical Exam: BP: 133/76 (08/13 1016) Temp: 36.7 C (98.1 F) (08/13 1016) Pulse: 79 (08/13 1016) Respirations: 18 PER MINUTE (08/13 1016) SpO2: 96 % (08/13 1016) O2 Device: None (Room air) (08/13 1016) O2 Liter Flow: 1 Lpm (08/13 899) SpO2 Pulse: 70 (08/13 699) Body mass index is 33.43 kg/m. Gen: Aphagic; Older male in hospital bed in [facility] HEENT: EOMI- midgaze with left gaze preference Heart: Extremities well perfused, no noted edema Lungs: non labored breathing, on room air Abdomen: Soft, non-tender, non-distended, +BS : + Lake in place Skin: no gross lesions appreciated Ext: Right hemiparesis MS: *difficulty with MST related to inconsistent command following; Moves LUE spontaneously; Right UE against gravity this date; + superintendent drilling bilaterally hands L>R; LLE: antigravity; PF against moderate resistance; RLE: flicker Neuro: Cranial Nerves Face with right paresis; Midline gaze with left gaze preference; Does not track readily DTR's Decreased 1+ Left patellar; Clonus + Bilaterally, Left > right; Intermittent spasticity LLE Memory/Cognition/Speech Nonverbal; follows one step commands inconsistently Intake/Output Summary (Last 24 hours) at 08/13/2022 1248 Last data filed at 08/13/2022 1242 Gross per 24 hour Intake 2438 ml Output 1580 ml Net 858 ml Hematology: Lab Results Component Value Date HGB 15.4 08/13/2022 HCT 46.5 08/13/2022 PLTCT 254 08/13/2022 WBC 10.4 08/13/2022 NEUT 71 08/13/2022 ANC 7.40 08/13/2022 ALC 1.07 08/13/2022 NEL 11 08/13/2022 AMC 1.13 08/13/2022 ABC 0.07 08/13/2022 MCV 91.0 08/13/2022 MCHC 33.2 08/13/2022 MPV 9.1 08/13/2022 RDW 14.4 08/13/2022 , Coagulation: No results found for: PT, PTT, INR and General Chemistry: Lab Results Component Value Date NA 140 08/13/2022 K 4.1 08/13/2022 CL 108 08/13/2022 GAP 6 08/13/2022 BUN 30 08/13/2022 CR 1.81 08/13/2022 GLU 132 08/13/2022 CA 9.1 08/13/2022 ALBUMIN 3.7 08/09/2022 LACTIC 1.2 08/10/2022 OBSCA 1.20 08/13/2022 MG 2.0 08/13/2022 TOTBILI 0.7 08/09/2022 Radiology: CT head 08/11 IMPRESSION 1. Further evolution of the recent moderate-sized left MCA territory infarct, with slight increase [...] Amarilys Phoenix MD on 08/12/2022 8:34 AM. DANY Pierre ING WORKER * Bonnie Reese APRN-NP - 08/12/2022 10:57 AM CSTAssociated Order(s): CONSULT INTERNAL MEDICINE PHYSICIAN Internal Medicine Initial Consult Note Admission Date: 08/09/2022 LOS: 3 Principal Problem: Acute ischemic left MCA stroke (HCC) Active Problems: CAD (coronary artery disease) Stage 3b chronic kidney disease (HCC) Hyperlipidemia Primary hypertension Hypothyroidism Seizure disorder (HCC) History of multiple strokes Global aphasia Acute right hemiparesis (HCC) Reason for Consult: Other Consult type: Transfer of service Impression Left M2 Occlusions/p IRw/ [id number] Basal ganglia infarct Chronic vertebral artery occlusion H/O multiple ischemic strokes(R MCA 05/2022, L NILA 07/2022) Seizures -presented with sudden onset aphasia,righthemiplegia, L gaze deviation fro m OSH on 08/09 - etiology likely /2 atherosclerosis -OSHCTH:L frontal subacute infarct and R fronto parietal chronic infarct -OSHCTA:left M2 MCA, distal reconstitution.chronicocclusion of the cer vical right vertebral artery. - 08/09 MRI head: Acute moderate sized left MCA territory infarct with mild cortic al petechial type hemorrhage. No midline shift or herniation. Chronic right NILA and MCA territory infarcts, chronic left parietal lobe infarct, and small bilate ral cerebellar infarcts and left caudate head lacunar type infarct. - 08/09MRA head: Interval reconstituted flow within previously occluded left M2 branch. No remaining large vessel occlusion is identified.Irregularity within the left carotid siphon with at least mild associated stenosis, likely atheroscl erotic. - 08/10 CT head: Evolving L MCA territory infarct. minimal petechial type hemorrh age.Chronic right NILA/MCA territory infarcts, chronic left parietal lobe infar ct, chronic small bilateral cerebellar infarcts, and chronic left caudate head l acunar-type infarcts. chronic microvascular ischemic changes - 08/11 CT head: evolving L MCA territory infarct with slight increase in mass ef fect - TTE 08/10: LVF normal, EF 60%. Technically limited study, cannot r/o small righ t to left shunting - A1c 5.8, LDL 106, on statin ASSEMBLY PERSON - ASSEMBLY PERSON keppra - Rehab Med consulted HTN HLD CAD s/p CABG(2009) - Echo 08/10 with EF 60%, no WMA or ventricle dysfunction - Lipid panel: LDL 106, HDL 29 - Troponin, BNPwnl -SBP goal:<160 per neuro CKD, stage 3 - BaselineCr~1.8-2 -BUN 29, Cr 1.86 Fever, resolved -08/10 febrile up to 38.4 - blood cultures - NGTD - MRSA neg, CXR without consolidation, Procal 0.11 - sputum culture with normal oropharyngeal hood - UA 2+ leuks, 20-50 wbcs, culture NGTD - Vanc/zosyn initially started and narrowed to rocephin for possible UTI - Rocephin 08/11-08/12, dc'd Severe Dysphagia - CLINICAL RESEARCH SPEC following, patient with severe difficulty swallowing - Currently with corpak in place for nutrition and meds Hypothyroidism -ASSEMBLY PERSON levothyroxine Rash - Dry, red macular rash noted to entire back Pulmonary Nodules, incidental finding, noted on CT scan - Multiple subcentimeter pulmonary nodules, indeterminant on initial examination . No dominant pulmonary mass. Follow-up CT chest in 3 months recommended to eval uate for stability. Recommendations - Continue aspirin, plavix, atorvastatin, Keppra - Continue PT/OT, recommending inpatient placement on discharge - CLINICAL RESEARCH SPEC following, will most likely need PEG for nutrition/medications with severe dysphagia - Straight cath patient q 6hr - Monitor off antibiotics - Emollient cream to rash on back. - Continue heparin sub q for DVT prophylaxis - Continue Synthroid - Continue tubefeeding Thank you for the consult. We will accept patient to internal medicine service, [facility] private NP2. Please Voalte med private NP2 first call for questions. Sebastien Reese APRN Internal Medicine Consults History of Present Illness: Derek Castro JrSourav is a 77 y.o. y.o. male with PMH of H TN,CAD s/pCABG,CKD, seizures, andmultiple ischemic strokes(2019, May 02 and Jul 2022) with residual LUE ataxia, admitted for ischemic stroke. Patien t is nonverbal, HPI is from chart review. Patient was found slumped over in a airon 08/09with right sided weakness and aphasia.NIH was 22.Hewas taken to an OSHwhere CT/CTA showed a left M2 occlusion. He was not a TNK candidate d ue to recent stroke so he was then[facility] for higher level of car e. Events since admission: On admit, patient wastakenfor thrombectomy. Intubated for IR procedure, and d/t difficulty of intubation remained intubated overnight. Extubated on 08/10. CT chest negative for acute process, did show pulmonary nodules that require f/u in 3 months. [id number] obtained in IR and patient was admitted to neuro ICU post op. MRI with acute moderate L MCA territory infarct. Stroke work up completed. DAPT and high dose statin continued. ENT initially consulted for possible hypo pharyngeal mass seen during intubation but imaging negative. Serial CTs showed s table changes. Spiked temperature on 08/10, infectious workup negative. Received 3 days of antibiotics. Stable for transfer to floor on 08/12. Medical History: Diagnosis Date CAD (coronary artery disease) 03/2010 s/p CABG x 5 CKD (chronic kidney disease) stage 3, GFR 30-59 ml/min ([facility]) Deep vein thrombosis (DVT) of right lower extremity (HCC) 05/2010 s/p CABG Gout History of left NILA stroke 07/2022 History of right MCA stroke 05/2022 Hyperlipidemia Hypothyroidism Primary hypertension Seizure disorder ([facility]) Surgical History: Procedure Laterality Date CORONARY ARTERY BYPASS GRAFT 03/2010 x 5 vessel Social History Socioeconomic History Marital status: Unknown Tobacco Use Smoking status: Former Types: Cigarettes Smokeless tobacco: Never Vaping Use Vaping Use: Never used Substance and Sexual Activity Alcohol use: Not Currently Drug use: Not Currently Unable to obtain family history due to patient's condition. Allergies: No Known Allergies Scheduled Meds: MEDSamLODIPine, 10 mg, Per NG tube, QDAY aspirin EC, 81 mg, Oral, QDAY atorvastatin, 80 mg, Per NG tube, QDAY cefTRIAXone (ROCEPHIN) injection (IV or IM), 1 g, Intravenous, Q24H* chlorhexidine gluconate, 15 mL, Swish & Spit, BID(8-20) clopiDOGreL, 75 mg, Per NG tube, QDAY senna, 8.8 mg, Per NG tube, BID And docusate sodium, 50 mg, Oral, BID heparin (porcine), 5,000 Units, Subcutaneous, Q8H levETIRAcetam (KEPPRA) IV, 500 mg, Intravenous, BID levothyroxine, 112 mcg, Per NG tube, QDAY() milk of magnesium, 30 mL, Oral, QDAY Diet - Nutritional Supplement, , SEE ADMIN INSTRUCTIONS, QDAY IV MEDS Diet Critical Care Enteral Feeding Volume Based Infusion Stopped (08/12/22 0 610) Prn acetaminophen Q4H PRN 650 mg at 08/11/22 1617, calcium gluconate IV PRN ( News Producer from Rx) AND Ionized Calcium PRN AND Notify Physician Ongoing, l abetalol (NORMODYNE; TRANDATE) injection Q1H PRN 10 mg at 08/12/22 0451, magnesi um sulfate PRN 1 g at 08/09/22 1850 AND Magnesium PRN AND Notify Physici an Ongoing, pancrelipase 20,880 Units/sodium bicarbonate 650 mg (KU CLOG DESTROY ER) PRN (News Producer from Rx), potassium chloride PRN OR potassium chloride PRN OR potassium chloride in water PRN HOME MEDS Medications Prior to Admission Medication Sig allopurinoL (ZYLOPRIM) 100 mg tablet Take 50 mg by mouth daily. Take with fo od. amLODIPine (NORVASC) 10 mg tablet Take 10 mg by mouth daily. aspirin EC 81 mg tablet Take 81 mg by mouth daily. Take with food. atorvastatin (LIPITOR) 80 mg tablet Take 80 mg by mouth daily. cetirizine (ZYRTEC) 10 mg tablet Take 10 mg by mouth daily. CHOLEcalciferoL (vitamin D3) (VITAMIN D3) 5000 unit tablet Take 5,000 Units by mouth daily. clopiDOGreL (PLAVIX) 75 mg tablet Take 75 mg by mouth daily. fish oil- omega 3-DHA/EPA 300/1,000 mg capsule Take 1 capsule by mouth daily . levETIRAcetam (KEPPRA) 500 mg tablet Take 500 mg by mouth twice daily. levothyroxine (SYNTHROID) 125 mcg tablet Take 125 mcg by mouth daily [address] before breakfast. lisinopriL (ZESTRIL) 20 mg tablet Take 20 mg by mouth daily. melatonin 5 mg chew Chew 5 mg by mouth at bedtime daily. multivitamin (ONE-A-DAY) tablet Take 1 tablet by mouth daily. Review of Systems: 14 point ROS was unable to be performed d/t patient's mental status Vital Signs: Last Filed In 24 Hours Vital Signs: 24 Hour Range BP: 107/66 (08/12 0900) Temp: 37.2 C (98.9 F) (08/12 0800) Pulse: 79 (08/12 1000) Respirations: 12 PER MINUTE (08/12 1000) SpO2: 94 % (08/12 1000) O2 Device: Nasal cannula (08/12 899) O2 Liter Flow: 1 Lpm (08/12 899) BP: (107-167)/(66-91) Temp: [36.9 C (98.5 F)-37.4 C (99.3 F)] Pulse: [66-81] Respirations: [9 PER MINUTE-18 PER MINUTE] SpO2: [92 %-97 %] O2 Device: Nasal cannula O2 Liter Flow: 1 Lpm Physical Exam: General: alert Head: normocephalic, atraumatic, without obvious abnormality Eyes:?conjunctivae/corneas clear. Throat: Lips, mucosa, and tongue normal. Teeth and gums normal Neck: supple, symmetrical, trachea midline Back: symmetric, no curvature Lungs: Respirations even and unlabored, clear to auscultation bilaterally, no wh eezes, rales, rhonchi Heart: regular rate and rhythm, S1, S2 normal, no murmur, click, rub or gallop Abdomen:?bowel sounds present, nontender, no organomegaly Extremities: pulses palpable, no pedal edema or skin lesions Neurologic: Withdraws from pain. Delayed response to commands Skin:?skin color, texture, turgor normal. Dry, red rash to back Lab/Radiology/Other Diagnostic Tests: Recent Labs 08/09/22 1730 08/10/228 08/11/225 08/12/22216 NA 142 140 141 142 K 4.5 4.3 4.0 4.1 CL 106 107 109 109 CO2 26 25 21 23 GAP 10 8 11 10 BUN 24 24 28* 29* CR 1.75* 1.75* 2.03* 1.86* GLU 108* 114* 177* 151* CA 9.1 8.6 8.4* 8.5 ALBUMIN 3.7 -- -- -- MG 1.9 2.0 2.1 2.0 PO4 3.0 3.6 2.4 2.3 HGBA1C 5.8* -- -- -- Recent Labs 08/09/22 1730 08/10/22 0238 08/11/22 0255 08/12/22 0217 WBC 7.5 11.2* 10.2 10.6 HGB 16.5 14.2 14.0 14.0 HCT 49.1 43.2 42.6 42.6 PLTCT 261 235 255 231 AST 19 -- -- -- ALT 18 -- -- -- ALKPHOS 132* -- -- -- TNI 0.01 -- -- -- Estimated Creatinine Clearance: 38.7 mL/min (A) (based on SCr of 1.86 mg/dL (H)) . Vitals: 08/09/22 1715 08/10/22 0700 Weight: 97.4 kg (214 lb 11.7 oz) 99.7 kg (219 lb 12.8 oz) Recent Labs 08/09/22 1730 PHART 7.36 PO2ART 180* Pertinent radiology reviewed. ING WORKER * Oren Caldera MD - 08/10/2022 4:45 PM CSTAssociated Order(s): CONSULT OTOLARYNGOLOGY (ENT) PHYSICIAN Otolaryngology/Head and Neck Surgery Consult Patient: Derek Castro Jr. Admission Date: 08/09/2022, LOS: 1 day Admission Diagnosis: Acute ischemic left MCA stroke (HCC) [I63.512] Date of Service: August 10, 2022 Reason for Consult: concern for hypopharyngeal mass ASSESSMENT/PLAN: 77 y.o. male with concern for hypopharyngeal mass on intubation yesterday. No reported concern head and neck symptoms based on conversation wit h his daughter today. Scope exam did not reveal any mass or lesion. His CT head and chest did not include the neck area. Plan: -no acute ENT intervention -recommend CT neck with contrast, will follow up -no further intervention if imaging negative. If positive, would consider DL wit h biopsy Discussed with Dr. Althea Caldera MD Otolaryngology Resident Thank you for this consultation Please page @[phone] with any question, or Voalte HPI: Derek Castro Jr. is a 77 y.o. male with PMH of CAD, CKD, stroke, admitted fo r stroke on the left. He was seen by us for concern for hypopharyngeal mass note d on intubation yesterday. He is non verbal. His daughter was at bedside who ans wered all questions. She reports that he has been eating, drinking well previous to this. No issue with throat pain that she has heard. He smoked briefly in his 20s but not since. Does not drink. Has not been losing weight from what she kno ws. No h/o of head/neck cancer or surgery. Medical History: Diagnosis Date CAD (coronary artery disease) 03/2010 s/p CABG x 5 CKD (chronic kidney disease) stage 3, GFR 30-59 ml/min ([facility]) Deep vein thrombosis (DVT) of right lower extremity (HCC) 05/2010 s/p CABG Gout History of left NILA stroke 07/2022 History of right MCA stroke 05/2022 Hyperlipidemia Hypothyroidism Primary hypertension Seizure disorder (HCC) Surgical History: Procedure Laterality Date CORONARY ARTERY BYPASS GRAFT 03/2010 x 5 vessel Medications: No current facility-administered medications on file prior to encounter. Current Outpatient Medications on File Prior to Encounter Medication Sig Dispense Refill allopurinoL (ZYLOPRIM) 100 mg tablet Take 50 mg by mouth daily. Take with fo od. amLODIPine (NORVASC) 10 mg tablet Take 10 mg by mouth daily. aspirin EC 81 mg tablet Take 81 mg by mouth daily. Take with food. atorvastatin (LIPITOR) 80 mg tablet Take 80 mg by mouth daily. cetirizine (ZYRTEC) 10 mg tablet Take 10 mg by mouth daily as needed for All ergy symptoms. CHOLEcalciferoL (vitamin D3) 25 mcg (1,000 unit) chew Chew 1,000 Units by mo uth daily. clopiDOGreL (PLAVIX) 75 mg tablet Take 75 mg by mouth daily. fish oil- omega 3-DHA/EPA 300/1,000 mg capsule Take 1 capsule by mouth daily . levETIRAcetam (KEPPRA) 500 mg tablet Take 500 mg by mouth twice daily. levothyroxine (SYNTHROID) 112 mcg tablet Take 112 mcg by mouth daily [address] before breakfast. melatonin 5 mg chew Chew by mouth at bedtime as needed. MULTIVITAMIN PO Take by mouth. Allergies: Patient has no known allergies. Social History Socioeconomic History Marital status: Unknown Tobacco Use Smoking status: Former Types: Cigarettes Smokeless tobacco: Never Vaping Use Vaping Use: Never used Substance and Sexual Activity Alcohol use: Not Currently Drug use: Not Currently History reviewed. No pertinent family history. Review of Systems: A 12 point review of systems was negative except as per HPI. Vitals: Vital Signs: Last Filed In 24 Hours Vital Signs: 24 Hour Range BP: 135/87 (08/10 1299) Temp: 36.6 C (97.8 F) (08/10 1199) Pulse: 75 (08/10 1299) Respirations: 13 PER MINUTE (08/10 1299) SpO2: 96 % (08/10 1299) O2 Percent: 50 % (08/10 699) O2 Device: Nasal cannula (08/10 1199) O2 Liter Flow: 2 Lpm (08/10 1199) Height: 172.7 cm (5' 7.99") (08/10 699) BP: (106-168)/(71-103) Temp: [36 C (96.8 F)-37 C (98.6 F)] Pulse: [59-91] Respirations: [5 PER MINUTE-19 PER MINUTE] SpO2: [95 %-100 %] O2 Percent: [50 %] O2 Device: Nasal cannula O2 Liter Flow: 2 Lpm Intake/Output: Intake/Output Summary (Last 24 hours) at 08/10/2022 1647 Last data filed at 08/10/2022 1300 Gross per 24 hour Intake 2679.91 ml Output 825 ml Net 1854.91 ml Physical Exam: General: Awake, alert, NAD Head: Normocephalic, atraumatic Eyes: PERRL, EOM intact bilaterally, vision grossly intact, conjunctivae clear Ears: Auricles without lesions, EAC and TMs clear bilaterally, hearing grossly i ntact Nose: Nares patent, no drainage, septum midline and no lesions observed on anter ior rhinoscopy Oral Cavity/Oropharynx: MMM, pink and clear, no masses or lesions visualized or palpated Neck: Supple, flat, trachea midline, no masses or cervical lymphadenopathy Neuro: ferry engineer II-XII grossly intact bilaterally, non verbal, right sided weakness o n extremities LARYNGOSCOPY: Flexible laryngoscopy was performed through the right nare. The n kirill passage was clear and without polyposis or mucopurulent secretions. The na sopharyngeal mucosa appeared normal. Adenoid tissue was absent. The fossa of R osenmuller was clear and the eustachian tube openings were without mass or lesio n. The tongue base was symmetric and without mucosal mass or lesion. Lingual ton darian are slightly larger but symmetric The vallecula was clear. The epiglottis was upright. The aryepiglottic folds and false folds appeared normal and were w ithout mucosal mass or lesion. The visualized hypopharynx was unremarkable. Hermilo e secretions in the piriform. The true vocal folds were without discernable muc osal or submucosal lesions. The right and left cords adducted and abducted full y. Though difficult to assess without stroboscopy, closure appeared to be compl ete. A limited view of the subglottis revealed no mucosal lesions or stenosis. Lab/Radiology/Other Diagnostic Tests: Recent Labs 08/09/22 1730 08/10/22 0238 HGB 16.5 14.2 HCT 49.1 43.2 WBC 7.5 11.2* PLTCT 261 235 NA 142 140 K 4.5 4.3 CL 106 107 CO2 26 25 BUN 24 24 CR 1.75* 1.75* GLU 108* 114* CA 9.1 8.6 MG 1.9 2.0 PO4 3.0 3.6 ALBUMIN 3.7 -- TOTPROT 6.7 -- TOTBILI 0.7 -- AST 19 -- ALT 18 -- ALKPHOS 132* -- Glucose: (!) 114 (08/10/22 0238) Oren Caldera MD Otolaryngology Resident Thank you for this consultation Please page @[phone] with any question, or Voalte ING WORKER Associated attestation - Rebecca Oh MD - 08/13/2022 7:26 AM HEATING WORKER I discussed the assessment and plan with the resident team and agree with the do cumentation unless otherwise noted. CT neck reviewed without evidence of mass. F/u PRN Rebecca Oh MD Head and Neck Surgery Fellow * Luz Yao, MARCY - 08/10/2022 1:45 PM CSTAssociated Order(s): CONSULT DIETITIAN CLINICAL NUTRITION Clinical Nutrition Initial Assessment Name: Derek Castro Jr. : 1945 Age: 77 y.o. Admission Date: 08/09/2022 LOS: 1 day Date of Service: 08/10/2022 Recommendation: REC Critical Care Volume Based EN Isosource 1.5 with goal rate of 55ml/hr + 1pks of prosource protein. (24-hr goal volume of 1320 ml and 4-hr goal volume of 220 ml). At goal provides 2040 kcals, 104g protein, and 1003ml free H2O. Additional water/saline bolus management per primary team and/or minimum 30ml q4hrs. The nutrition-related order modifications are made in communication with the [facility] service, who remains responsible for the orders and overall care of the [facility]. Comments: Derek Castro Jr. is a 77 y.o. male with a PMH of HTN, CAD s/p CABG, CKD, seizures , and multiple ischemic strokes (most recently May 2022 and Jul 2022) with a LKN of 1130 who was found slumped over in a chair around 1200 with right sided weak ness and aphasia. NIH was 22. Patient was taken to [facility] where C T/CTA showed a left M2 occlusion. He was not a TNK candidate due to recent strok e so he was then transferred to [facility]. He was taken for thrombectomy. TICI 3 was obtained and patient was admitted to [facility] post op. Clinical nutrition consulted for EN recommendations. Pt extubated this morning a nd is now completely off of propofol. Not currently on pressor support. RD met w angela family at bedside. 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 Pt's did state pt coughing during meals. Family denies any N/V/D/C or any unintentional weight loss. Pt remains NPO and started on Isosour ce 1.5@50mL/hr. EN recommendations provided, will continue to monitor. Nutrition Assessment of Patient: Admit Weight: 97.4 kg; ; Desired Weight: 74.3 kg (IBW [place]: 70kg) BMI (Calculated): 33.43; BMI Categories Adult: Obesity Class I: 30-34.9; Pertinent Allergies/Intolerances: none reported by family Pertinent Labs: Reviewed; cr 1.75, glucose 108-114; Pertinent Meds: Reviewed; pe ridex, pepcid, fentanyl, synthroid, lytes; Oral Diet Order: NPO; Current Oral Intake: NPO Estimated Calorie Needs: 7134-7799 (25-30kcal/kg DBW) Estimated Protein Needs: 90-111g (1.2-1.5g/kg DBW) Malnutrition Assessment: Does not meet criteria Nutrition Focused Physical Assessment: Edema: No; ; Pressure Injury: none noted 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 : 1945 Age: 77 y.o. Admission Date: 08/09/2022 LOS: 1 day Date of Service: 08/10/2022 Consult for PM&R received. Patient was extubated this am. Family at bedside. Will defer consult completion at this time, pending initial therapy evaluations. DANY Pierre ING WORKER documented in this encounter Miscellaneous Notes * Rehab Pre-Admission Screening - Laureen Luna RN - 08/23/2022 11:51 AM HEATING WORKER Physical Medicine & Rehabilitation Pre-Admission Screening Derek Castro Jr. is a 77 y.o. male. : 1945 Primary Insurance: [employer] Financial Class: Medicare Repl Date of Hospital Admission: 08-09-2022 Date of Expected Rehab Admission: 08-23-2022 Precautions: Fall, aspiration and seizure Weight bearing Precautions: WBAT Medical Course Hospital Course: Mr. Castro is a 77 year old male with a past medical history of CAD s/p CABG, CKD, HTN, multiple ischemic CVAs in [facility] NILA, MCA territories, Left pariental lobe and bilateral cereberllar hemispheres (2019, May 2022, and Jul 2022)- patient hunter s mild left sided ataxia, who was transferred from [facility] on 08/09 after being found slumped over by his . Patient was found to have left sided weakness, aphagia . OSH CT/CTA noted Left M2 occlusion. He was not a candidate for TNK related to recent ischemic stroke. Patient was transferred to [facility]-- he underwent thrombec mohan with TICI 3. MRI with acute moderate L MCA territory infarct. He was extuba earline 08/10. Repeat CT head 08/10 with evolving moderate sided left MCA territory in farct, with slight increased in localized mass effect. Patient has continued dys phagia, warranting cor bib for nutrition. He is s/p PEG 08/20 and continues to be NPO related to dysphagia. Patients hospital course has been complicated by dysp hagia, leukocytosis, NEIL, cognitive impairment, global aphasia, as well as impai red mobility and activities of daily living. Patient has been working with physical and occupational therapy since 08-12-2022 and has been making functional gains. Patient is anticipated to return to home a t the modified independent level of care. Patient has also been working with spe ech language pathology on dysphagia; however will also receive formal cognitive evaluation to assess for baseline status and any new cognitive/linguistic defici ts. Prior Level of Function Self-Care/ADLs: Independent with ADLs and functional transfers;Independent with homemaking w/ ambulation Mobility: Independent Mobility in Community without Device Work/Personal Responsibilities/Hobbies: n/a Home Environment: Home Situation: Lives with Family (08/22/2022 10:00 AM) No data recorded Type of Home: House (08/22/2022 10:00 AM) Entry Stairs: Ramp (08/22/2022 10:00 AM) In-Home Stairs: Able to Live on One Level (08/22/2022 10:00 AM) Support System: Spouse / Significant Other Current Level of Function Physical Therapy: 08-21-2022 Bed Mobility/Transfer Bed Mobility: Supine to Sit: Minimal Assist;Head of Bed Elevated;Assist with Nba nk;Requires Extra Time Comments: tactile cues for hand placement on railto assist with pulling trunk up to sitting at EOB. Min assist for EOB balance, retropulsive at EOB with verbal cues for anterior weight shift Transfer Type: Sit to Stand Transfer: Assistance Level: To/From;Bed;Minimal Assist Transfer: Assistive Device: Hand Hold Assist Transfers: Type Of Assistance: Verbal Cues;For Safety Considerations End Of Activity Status: Up in Chair;Nursing Notified;Instructed Patient to Reque st Assist with Mobility;Instructed Patient to Use Call Light Gait Gait Distance: 130 feet Gait: Assistance Level: Minimal Assist;of 1st person;Standby Assist;of 2nd perso n;Safety Considerations Gait: Assistive Device: Hand Hold Assist Gait: Descriptors: Pace: Slow;Decreased heel strike RLE;Decreased heel strike LL E;Swing-Through Gait;Decreased step length;Loss of balance Comments: chair follow for safety, following all verbal cues for direction. impu lsive at times, verbal cues for safety Occupational Therapy: 08-23-2022 Vision Comment: Pt making brief eye contact then closing eyes, resists eye opening. ADL's Grooming Assist: Maximum Assist Grooming Deficits: Wash/Dry Face (hand over hand assist to initiate with RUE, ve rbal and physical cues for thoroughness. Dependent to reach across and wash L si de of face.) LE Dressing Assist: Total Assist LE Dressing Deficits: Don/Doff R Sock;Don/Doff L Sock Toileting Assist: Total Assist ([place]) ADL Mobility Bed Mobility: Supine to Sit: Dependent assist (pt actively resisting attempts to sit up, brings legs back into bed and lays himself down. Unable to achieve full upright sitting 2* to pt resistance. Does grasp L bedrail in RUE when on L side after OT places hand on bedrail.) Plan was to get pt up to sink for grooming and/or in the chair, however unable d ue to pt resistance. Upon OT moving bedding out of chair to prepare it, OT found a piece of what looked like suture on chux in chair, about 2 inches long and wi th a knot in the end. Showed it to RN. (Note that pt in bed with abdominal binde r in place at this time). Will notify team as well. Cognition Overall Cognitive Status: Impaired Comprehension: Receptive Aphasia Expression: Expressive Aphasia;Non Verbal Cognition Comment: Pt closes eyes and turns head away from OT, when OT turns tanna y from pt to wet a washcloth in sink, pt could be seen in mirror with eyes open watching, however upon OT returning to attempt working with pt his eyes are clos ed. Per RN pt has not had any sedating medications. Bright lights turned on for session. Speech Therapy: 08-22-2022 Dysphagia therapy completed. Moderate-Severe oropharyngeal dysphagia. Suspected etiology of dysphagia: impaired weakness/sensation/ROM secondary to CV A; intubated 08/09-08/10; Hx of prior CVAs (May 2022 and July 2022) Education provided to: patient, RN Swallow Recommendations PO: Ice chips only NPO: Continue intermediate card tender non-oral nutrition Medications via PEG Ice Chip Trials: 10-15 per hour Supervision: 1:1 Positioning: Upright as tolerated Swallow Strategies: Feeding assistance needed Oral Hygiene: 3 times per day, Complete oral care to minimize the risk of aspira ting oral bacteria Communication Recommendations Provide models to improve comprehension No functional communication system at this time Anticipate pt's wants and needs based on non-verbal cues Rehabilitation Plan Rehab Diagnosis and conditions that require Rehabilitation: stroke Aphasia, Cognitive impairment, Dysphagia, Hemiplegia, Pain and Weakness Active Comorbidities/Risk of Medical Complications: 1. Stroke: Will monitor for acute neurological changes and manage accordingly, a s patient is at risk for repeat stroke, hemorrhagic conversion, and seizures. 2. Aphasia: Patient has global aphasia with decreased ability to communicate. S peech therapy will work on effective communication strategies with staff. 3. Cognitive Impairment: Patient with cognitive impairment. May need 24 hour kay pervision upon discharge home. 4. Dysphagia: Patient with moderate to severe oropharyngeal dysphagia. Currently tolerating tube feeds via PEG tube. Dysphagia puts them at risk for aspiration and pneumonia. Aspiration precautions in place. 5. Hemiplegia: Patient has right hemiplegia. Physical therapy and Occupational therapy will work with patient on mobility and ADLs techniques for the hemiparet ic side. 6. Neurogenic Bladder: cadastral engineer to work with the patient and family to receive t he proper education needed to have a successful bladder program. Patient will be provided and educated on the use of adaptive equipment, medication and fluid ma nagement to start managing a bladder program independently. 7. Hyperlipidemia: Will continue to monitor and manage, and adjust medications a s needed. 8. Hypertension: Patient is at risk for hyper/hypotension during aggressive mobi lization program with therapies, and requires daily physician monitoring and adj ustment of medications. Will continue to monitor and manage for optimal blood p ressure control and resume home medications as able. 9. Hypothyroidism: Will continue to monitor and manage, and adjust medications a s needed. 10. Leukocytosis: Patient is at risk for SIRS, sepsis and needs daily physician monitoring and management of acute illness. Will continue to monitor and manage. 11. Morbid Obesity: Patient's BMI is 32.[address] at a higher risk of medical complications including DVTs and decubitus ulcers as well as poor post-o perative mobility and performance. Consult Broadcast Technician on recommendations for hea lthy diet. 12. Renal Failure, Acute / Chronic: Patient is at risk for worsening of renal di sease and needs daily physician monitoring of labs and fluid status. Will contin ue to monitor and manage, as this may affect patient's ability to tolerate thera pies. 13. Risk for Pain: There is a risk of uncontrolled pain, risk of failure to part icipate in therapies, and risk of sedation due to pain medications. This will r equire daily medication adjustments to find the balance between meaningful parti cipation in therapies and pain control, avoid the potential for addiction, while facilitating the rehabilitation for their condition. Will continue to monitor a nd adjust medication regimen in order to maximize pain relief. 14. Seizures: Patient is at risk for seizure, related injury, and encephalopathy and needs physician monitoring for appropriate medications and lab monitoring. Seizure precautions in place., General Risk Factors: Risk for Falls: Staff will round on the patient frequently to assess for any needs, such as using the rest room to help prevent falls as this increases the patient's risk for morbidity/mo rtality and 30 day readmission to the hospital rate. 15. Risk for Thrombosis: Patient has Eliquis, sequential compression devices ord ered. Patient will be encouraged to ambulate frequently with the assistance of health care provider. Patient will receive Physical therapy, Occupational therapy and Speech therapy e ach 60 minutes a day, 5 days a week for a total of 3 hours daily (minimum) for t he duration of the rehabilitation stay within an interdisciplinary rehabilitatio n program with supportive employment case manager/social media specialist, installation manager, neuropsychologist, rehab n ursing and PM&R oversight. Rehabilitation Prognosis: Fair to good Medical Prognosis: The patient is deemed medically stable to tolerate, benefit f rom, and participate in IRF level services. Tolerance for three hours of therapy a day: Good. Patient has participated well with therapies since 08-12-2022 in the acute care setting and is anticipated to t olerate therapy as required. Goals/Barriers/Facilitators Family / Patient Goals: return home to previous level of function Mobility Goals: Overall goal is Independent and Physical Therapy will evaluate a nd treat ambulation/wheelchair use and bed transfers Activities of Daily Living (ADLs) Goals: Overall goal is Independent and Occupat ional therapy will evaluate and treat basic Activities of Daily Living Cognition / Communication Goals: Overall goal is Supervision or touching assista nce and Speech therapy will evaluate and treat cognition and communication defic its and assess for safe swallow Barriers & Interventions: Caregiver Apprehension: Arrange caregiver support and discuss barriers and patie nt progress with caregivers when appropriate. High [place] of Care: Initiate interdisciplinary rehabilitation to improve functi onal independence and reduce burden of care. Medication Education: Pharmacist and nursing staff to provide education to megan ent and family regarding medication side effects, special precautions, and safe administration. Facilitators: good home setup, good family / social support, patient motivation, improving strength / endurance and improving medical condition Discharge Planning Expected Length of Stay 10-14 day(s) Expected Discharge Disposition Home CHARLI Liang, RN ING WORKER * Care Plan - Mariana Waterman RD - 08/23/2022 9:33 AM CST Problem: Nutrition Deficit Goal: Adequate nutritional intake Flowsheets (Taken 08/23/2022 0667) Adequate nutritional intake: Manage tube feeding and enteral nutritional adminis tration Recommendation: REC continue tube feeds as ordered which is as follows: Isosource 1.5 at 65 mL/hr x 22 hours (2-hour hold for Synthroid). At goal provides 2145 kcal (100% needs), 97 g/protein (100% needs) and 1092 mL o f free water. REC flush 200 mL water q4h. EN and all water flushes provide 2292 mL/water/day for 107% needs which is consi stent with water flushes of current tube feeding order. Fluids are ultimately deferred to primary team. If bolus tube feeds are desired, REC bolus 5.5 cartons if Isosource 1.5 daily. Bolus 1.5 cartons (375 mL) TID (02/10/16) and 1 carton (250 mL) once daily (20). Would bolus cartons (125 mL) for first 2 feedings. If tolerated, bolus 1 car ton (250 mL) for next 2 feedings. If tolerated, increase to goal rate. At goal provides 2062 kcal (100% needs), 94 g/pro (100% needs) and 1050 mL of fr ee water. REC flush 60 mL before and after each feeding and flush an additional 250 mL BID for hydration but not at the same time as tube feeds to keep volume low. EN and all water flushes provide 2030 mL/water/day 99% needs). Fluids are ultimately deferred to primary team. The nutrition-related order modifications are made in communication with the [facility] service, who remains responsible for the orders and overall care of the [facility] ient. Comments: RD following up for EN and new PEG tube placed 08/20/22 with tip of the tube well -positioned in the stomach. Pt laying in bed at time of visit. Awake but non-v erbal. Tube feed is running at goal rate. Per nursing, no issues. Stools are pasty and soft, no excessive diarrhea at this time. Last BM 08/23. REC continue 22-hour continuous tube feeds as ordered. Clinical nutrition will continue to monitor for diet advancement, EN tolerance and per protocol. Pt with mild R/L U/L and general edema. LABS: BUN 45, Crea 1.92, GFR 36, GLU 147. Meds reviewed . Intake Comment: 4-day average 08/16 to 08/19 = 1206 mL/day Intake (calories) Daily Average : 1809 kilocalories (97% low end needs) Intake (protein) Daily Average : 82 grams (91% low end needs) Estimated Calorie Needs: 9711-7134 (25-30kcal/kg DBW) Estimated Protein Needs: 90-111g (1.2-1.5g/kg DBW) Clinical Dietitian: Mariana Waterman RD, LD Available on Voalte ING WORKER * Care Plan - Amelia Ulloa RN - 08/23/2022 6:15 AM CST Problem: Discharge Planning Goal: Participation in plan of care Outcome: Goal Ongoing Goal: Knowledge regarding plan of care Outcome: Goal Ongoing Goal: Prepared for discharge Outcome: Goal Ongoing Problem: Infection, Risk of, Urinary Catheter-Associated Urinary Tract Infection Goal: Absence of urinary catheter-associated infection Outcome: Goal Ongoing Problem: Injury-Risk of, Non-Violent Physical Restraints Goal: Absence of Injury while physically restrained (Non-Violent) Outcome: Goal Ongoing Problem: Neurological Status, Impaired/Altered Goal: Progress toward maximizing functional outcomes Outcome: Goal Ongoing Goal: Cognitive status restored to baseline Outcome: Goal Ongoing Problem: Neurological Status, Impaired/Altered Goal: Progress toward maximizing functional outcomes Outcome: Goal Ongoing Goal: Cognitive status restored to baseline Outcome: Goal Ongoing Problem: High Fall Risk Goal: High Fall Risk Outcome: Goal Ongoing Problem: Skin Integrity Goal: Skin integrity intact Outcome: Goal Ongoing Goal: Healing of skin (Wound & Incision) Outcome: Goal Ongoing Goal: Healing of skin (Pressure Injury) Outcome: Goal Ongoing Problem: Nutrition Deficit Goal: Adequate nutritional intake Outcome: Goal Ongoing Goal: Body weight within specified parameters Outcome: Goal Ongoing ING WORKER * Care Filemon - Divine Saldivar RD - 08/13/2022 12:34 PM CST Problem: Nutrition Deficit Goal: Adequate nutritional intake Outcome: Goal Ongoing Flowsheets (Taken 08/13/2022 1234) Adequate nutritional intake: Manage tube feeding and enteral nutritional administration Speech therapy swallowing assessment and management Assess nutritional status Recommendation: REC EN of Isosource 1.5 with goal rate of 60 ml/hr + 1pks of prosource protein. At goal provides 2040 kcals, 104g protein, and 1003 ml free H2O. Additional wate r/saline bolus management per primary team and/or minimum 30ml q4hrs. If patient passes CLINICAL RESEARCH SPEC swallow eval, recommend least restrictive diet order w/ co nsistencies per CLINICAL RESEARCH SPEC recommendations. Recommend to hold off on corpak removal & wean EN as able once pt is able to maintain adequate PO intake. The nutrition-related order modifications are made in communication with the [facility] service, who remains responsible for the orders and overall care of the pat ient. RD following for EN management. Intubated 08/09 for IR. 08/10 CT chest with multipl e subcentimeter pulmonary nodules. Concern for hypopharyngeal mass on intubation . Extubated 08/10. CTA Neck 08/11 with retropharyngeal course of the R common guido tid artery that produces mass effect/effacement of the R oropharynx. No definite hypopharyngeal mass. Pt transferred to the floor 08/12. CLINICAL RESEARCH SPEC eval 08/11 displayed severe dysphagia. Corpak placed 08/09, tip post-pyloric. Lytes stable. +BM x 1 ov er the past 24 hours, small pasty brown per RN. Synthroid on board, will require 2 hour EN hold. EN order adjusted. Appears to be tolerating EN well. EN providi ng >100% of kcal/protein needs the past 2 days per I/O documentation. No additional acute nutrition interventions at this time. Will continue to monitor. Estimated kcal/protein needs: Estimated Calorie Needs: 9200-6021 (25-30kcal/kg DBW) Estimated Protein Needs: 90-111g (1.2-1.5g/kg DBW) Divine Saldivar, MS, RD, LD, CNSC Available on Voalte (Preferred Communication Method) Office: [phone] ING WORKER * Transfer - Isabel Lobo APRN-CONFERENCE CONCIERGE - 08/12/2022 10:21 AM CST In-Hospital Transfer Note Admission Diagnosis: Ischemic stroke Admission Date: 08/09/2022 Active Hospital Problem List: Principal Problem: Acute ischemic left MCA stroke (HCC) Active Problems: CAD (coronary artery disease) Stage 3b chronic kidney disease (HCC) Hyperlipidemia Primary hypertension Hypothyroidism Seizure disorder (HCC) History of multiple strokes Global aphasia Acute right hemiparesis (HCC) Hospital Course: Derek Castro Jr.is a 77 y.o.malewith a PMH of HTN,CAD s/pCABG,CKD, se izures, andmultiple ischemic strokes(2019, May 2022 and Jul 2022) with resid ual LUE ataxia who was found slumped over in a chair on 08/09with right sided we akness and aphasia.LKW 1130. NIH was 22.He was taken to an OSH where CT/CTA showed a left M2 occlusion. He was not a TNK candidate due to recent stroke so h [facility]. [id number] obtai eva and patient was admitted to [facility] post op. MRI with acute moderate L MCA rachael tory infarct. Stroke work up sent. DAPT and high dose statin continued. ENT init ially consulted for possible hypopharyngeal mass seen during intubation but imag ing negative. PT/OT/ST and Rehab medicine were consulted. Stroke Assessment: Present Goal Comments 1. Hypertension Yes BP < 160 2. Diabetes No Hgb A1C < 7 5.8 3. Dyslipidemia Yes LDL < 70 106 Statin Therapy? Yes Started prior to DC Resumed ASSEMBLY PERSON high dose 4. H/o stroke/TIA Yes 5. A-Fib No Anticoagulation? No DVT Prophylaxis? Yes Started within 48 hrs Delayed due to petechial hemorrha ge on MRI 6. Tobacco abuse No 7. PFO on Echo No 8. Rehab Assessment Yes Assessed prior to DC 9. Antithrombotic Yes Started within 48 hrs Significant Medication Information (to include antibiotic duration/indication, a nticoagulation and steroids, etc.): - Resumed ASA 08/10 and Plavix 08/12 - SQH to start 08/12 - Antibiotics for fever on 08/10 but cultures negative-- antibiotics stopped 08/12 Procedures With Dates: Thrombectomy 08/09/21 Consults: ENT Rehab Medicine Follow-Up Items: Rehab Medicine consult Speech therapy recommendations vs possible PEG Repeat CT chest in 3 months to evaluate pulmonary nodules Continue to follow cultures sent 08/10 for fever Activity/Weight bearing status: Upright mobility Nutrition: Corpak with tube feeds Discharge Plan: Transfer to the floor [facility] [place] Pager [phone] ING WORKER * Acute Stroke Response - Lucero Guaman RN - 08/09/2022 4:39 PM CST RN Stroke Activation Summary Date of Service: 08/09/2022 Derek Castro Jr. is a 77 y.o. male. : 1945 Allergies: Patient has no allergy information on record. Patient Arrival: 1603 ASRT Arrival: 1540 Location of Response : [address] Page Received: 1546 Outside Hospital: [facility] Clinical Presentation: Aphasia, Decreased LOC, Right facial droop, Right sided w eakness, Sensory changes Total Stroke Scale Score: 22 Signs & Symptoms: Last Known Well Last Known Well - Date: 08/09/22 Last Known Well - Time: 1130 Dysphagia screen: Patient intubated?: No Did Patient Pass The Swallow Screen Part I?: No If "No" Name of Physician Notified: Dr. Suarez Plan: Summary: Patient is a candidate for IR intervention. Patient transported to IR and handoff given to procedural team. See Acute Stroke Response Provider Note fo r more information. Radiology/Interventional Delay Decision to IR: Yes Decision to go to Neuro Interventional Radiology Time: 1418 N/A Plan: Plans for intervention in IR and then transfer to CA[facility] ICU for stroke andrea p and post stroke monitoring. Call Completion: [phone] Lucero June RN ING WORKER * Acute Stroke Response - Silverio Suarez DO - 08/09/2022 3:47 PM CST Name: Derek Castro Jr. : 1945 Age: 77 y.o. Admission Date: 08/09/2022 LOS: 0 days Date of Service: 08/09/2022 Allergies: Patient has no known allergies. Type of Acute Stroke Response Team note: Consult Stroke Activation Tier: Tier 1 Assessment & Plan Chief Complaint: "Right sided weakness and aphasia" Assessment: Derek Castro Jr. is a 77 y.o. male with h/o previous right MCA and le ft NILA stroke, seizures, HTN, CKD, CAD s/p CABG, hypothyroidism, and gout presen earline with right sided weakness, global aphasia, and left gaze deviation. LKW 1200 on 08/09/22. NIH at OSH 22. NIH on arrival 22. CT Head shows no acute processes, encephalomalacia in right frontal and parietal lobes. 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 Transferred to for EVT. TICI 3. Impression: Mr. Castro presented with right sided weakness and aphasia that starte d acutely around 1200 on 08/09/22. Not a candidate for thrombolytics at OSH due to acute stroke one month ago. Transferred for EVT. Blood pressure goals to be d etermined by success of procedure. Likely cardioembolic given multiple lateralit y of anterior infarction in the past and involvement of posterior circulation. L ess likely atherosclerotic. Suspected localization of Stroke Sx: Left MCA Suspected etiology: Cardio Embolism Pre-event Modified Baker Scale (mRS): 2 - Slight disability; unable to carry ou t all previous activities, but able to look after own affairs without assistance Plan: - Admit to neuro ICU - MRI head without contrast - Stroke risk factor assessment Labs to include FLP, A1c Echocardiogram with bubble study Vascular Imaging as above Telemetry to monitor for arrhythmia Evaluation of smoking history and smoking cessation consult if tobaccoism prese nt Antiplt therapy: will start ASA (rectal until diet/CorPak is established) - PT/OT/CLINICAL RESEARCH SPEC consult eval and treat - Rehab consult for assessment of post stroke care - blood pressure goals to be determined by success of EVT - increase keppra from ASSEMBLY PERSON 500mg to 750mg BID - low threshold for EEG The patient was seen and discussed with Dr. Smith. Silverio Suarez, DO PGY-3 Neurology Available on Voalte (preferred) Pager [phone] History of Present Illness History of Present Illness: History primarily provided by chart review. Reportedly, patient's spoke wit h him when awoke at 1130 on 08/09 and patient was at baseline. Around 1207 she n oted he was slumped to his right in his chair and wouldn't respond to her. He wa s brought by EMS to [facility] where he deemed not a candidate for thrombolytics based on recent stroke. Per , patient was ambulatory and only had gait change as a residual deficit. Review of Systems Review of systems not obtained from patient due to patient factors. Stroke Activation Summary Patient Arrival: 1603 ASRT Arrival: 1540 Location of Response : [address] Page Received: 4500 Clinical Presentation: Aphasia, Decreased LOC, Right facial droop, Right sided w eakness, Sensory changes Signs & Symptoms: Last Known Well Last Known Well - Date: 08/09/22 Last Known Well - Time: 113 CT/CTP/CTA: BP: 165/103 (08/09 1709) Pulse: 91 (08/09 1709) Respirations: 14 PER MINUTE (08/09 1709) SpO2: 95 % (08/09 1709) NIHSS Completed at: 1610 NIH Stroke Scale Item Scoring Definition Score 1a. LOC 0=alert and responsive 1=arousable to minor stimulation 2=arousable only to painful stimulation 3=reflex responses or unrousable 0 1b. LOC questions-as patients age and month. Must be exact. 0=both correct 1=one correct (or dysarthria, intubated, foreign language) 2=neither correct 2 1c. Commands-open/close eyes, superintendent drilling and release non-paretic hand (other 1 step co mmands or mimic OK) 0=both correct (ok if impaired by weakness) 1=one correct 2=neither correct 1 2. Best Gaze-horizontal EOM by voluntary or Dolls 0=normal 1=partial gaze palsy (abnormal gaze in one or both eyes) 2=forced eye deviation or total paresis which cannot be overcome by Dolls 2 3. Visual Field-use visual threat if necessary. If monocular, score field of goo d eye 0=no visual loss 1=partial hemianopia, quadrantanopia, extinction 2=complete hemianopia 3=bilateral hemianopia or blindness 4. Facial Palsy-if stuporous, check symmetry of grimace to pain 0=normal 1=minor paralysis, flat NLF, asymm smile 2=partial paralysis (lower face=UMN) 3=complete paralysis (upper and lower face) 2 5. Motor Arm-arms outstretched 90 deg (sitting) or 45 deg (supine) for 10 second s. Encourage best effort. 0=no drift x 10 seconds 1=drift but doesnt hit bed 2=some antigravity effort, but cant sustain 3=no antigravity effort, but even minimal mvt counts 4=no movement at all X=unable to assess due to amputation, fusion, etc L/R 0/2 6. Motor Leg-raise leg to 30 degrees supine x 5 seconds 0=no drift x 5 seconds 1=drift but doesnt hit bed 2=some antigravity effort, but cant sustain 3=no antigravity effort, but even minimal mvt counts 4=no movement at all X=unable to assess due to amputation, fusion, etc L/R 2/3 7. Limb Ataxia-check finger-nose- finger; heel-phelps; and score only if out of pr oportion to paralysis 0=no ataxia (or aphasic, hemiplegic) 1=ataxia in upper or lower extremity 2=ataxia in upper AND lower extremity X=unable to assess due to amputation, fusion, etc 8. Sensory-use safety pin. Check grimace or withdrawal if stuporous. Score only stroke- related losses 0=normal 1=mild-mod unilateral loss but patient aware of touch 9or aphasic, confused) 2=total loss, pt unaware of touch. Coma, bilateral loss 1 9. Best Language-describe cookie jar picture, name objects, read sentences. May use repeating, writing, stereognosis 0=normal 1=mild-mod aphasia (diff but partly comprehensible) 2=severe aphasia (almost no info exchanged) 3=mute, global aphasia, coma. No 1 step commands 3 10. Dysarthria-read list of words 0=normal or intubated or other physical barri er 1=mild-mod; slurred but intelligible 2=severe; unintelligible or mute 2 11. Extinction/Neglect- simultaneously touch patient on both hands, show fingers in both visual davis, ask about deficit, left hand 0=normal, none detected. ( visual loss alone) 1=neglects or extinguishes to double stimulation in any modality 2=profound neglect in more than one modality 2 Score 2 Was the patient 4.5-9 hrs from last known well or a wake-up stroke? No Was IV tenecteplase given? No The patient was not a thrombolytic candidate due to Presence of intracranial con ditions that may increase the risk of bleeding (e.g. some neoplasms, arterioveno us malformations, or aneurysms) Recent NILA stroke (07/2022) Advanced imaging was interpreted at OSH Dysphagia screen: Did Patient Pass The Swallow Screen Part I?: No If "No" Name of Physician Notified: Dr. Suarez Performed by nursing staff and failed screen by nursing staff and awaiting ST ev aluation Cardiac rhythm on presentation: sinus Health History Medical History: Diagnosis Date CAD (coronary artery disease) 03/2010 s/p CABG x 5 CKD (chronic kidney disease) stage 3, GFR 30-59 ml/min ([facility]) Deep vein thrombosis (DVT) of right lower extremity ([facility]) 05/2010 s/p CABG Gout History of left NILA stroke 07/2022 History of right MCA stroke 05/2022 Hyperlipidemia Hypothyroidism Primary hypertension Seizure disorder ([facility]) Surgical History: Procedure Laterality Date CORONARY ARTERY BYPASS GRAFT 05/2010 x 5 vessel No family history on file. Medications: PRN Medications: Physical Exam HEENT: normocephalic, eyes open with no discharge, nares patent, oropharynx is c lear with no lesions, palate intact CV: regular rate, distal pulses palpable Chest: normal configuration, equal chest rise bilaterally Ab: soft, non-tender, no masses, no organomegaly Skin: no rashes or lesions Extended Neuro Exam: Mental status: alert, unable to participate in orientation questions Speech: Normal Abnormal Fluency x Comprehension x Articulation x Repetition x Naming x Cranial Nerves: Normal Abnormal II x III, IV, Left gaze deviation V x VII Right lower facial droop VIII x IX, X x XI XII Muscle/motor: Tone: mildly stiff on right side Bulk: nml Fasciculations: none NF NE SA EF EE WE WF FF FE FA TA HF HUNTER HE KF KE DF PF R 3 3 3 1 2 1 1 2 2 L 5 5 5 4 3 3 3 3 3 Patient with difficulty following commands, listed above are maximum observed st rengths Sensation: Limited exam, limited LT response on right side, does not withdraw on right Coordination: Unable to follow command Gait and Station: Deferred Lab/Radiology/Other Diagnostic Tests: 24-hour labs: No results found for this visit on 08/09/22 (from the past 24 gladis r(s)). Pertinent radiology reviewed. ING WORKER Associated attestation - Yousuf Smith MD - 09/03/2022 6:11 PM HEATING WORKER ATTESTATION I personally performed the tineo portions of the E/M visit, discussed case with re sident and concur with resident documentation of history, physical exam, assessm ent, and treatment plan unless otherwise noted. This patient is critically ill from an acute ischemic stroke. I spent 45 minutes (excluding time spent performing or supervising any procedures) providing and d irecting critical care services. The patient is at risk of life-threatening dete rioration and required immediate, high complexity decision-making as to whether the patient should be given tPA and/or taken for endovascular therapy. The cumul ative time spent on 80 mintues providing critical care services includes: discu ssing the case with the referring physician and reviewing their records, perform ing a neurologic exam and NIHSS on arrival, serially reviewing vitals and in par ticular avoiding hypotension or excessive hypertension, obtaining emergent point of care labs, obtaining emergent radiologic imaging, and developing an overall plan of care. The patient will be moved to the NEICU to continue ICU level care. 77 year old with h/o R MCA stroke in 05/2022, L NILA stroke in 07/2022, seizure d isorder, CKD, CAD s/p CABG presented with sudden onset aphasia, left hemiplegia. LKN 12 PM, 08/09/2022. CTH with L frontal subacute infarct and R fronto parietal chronic infarct, no acute ischemic changes in L MCA territory. CTA head and Neck with L M2 occlusion with good distal reconstitution. Transferred to for fur ther management. Exam upon arrival - alert, mute, global aphasia, R hemiparesis with antigravity movements in R arm and minimal movements in the plane of gravity in R leg. L gaz e deviation. Not a candidate for IV thrombolysis due to recent infarct one month ago. S/P EVT, TICI 3 recanalization Etiology of recurrent strokes - embolic, source to be determined Echo with bubble study for LA size, thrombus, EF, valvular pathology. DVT screen if PFO. Malignancy screen with CT chest, abdomen, pelvis if no cardiac etiology Will benefit anticoagulation for secondary prevention, given 3 embolic infarcts in 3 months, timing to be determined based on infarct burden. Staff name: Yousuf Smith MD Date of Service: 08/09/2022 Addendum 09/03/2022 for correct NIHSS documentation. NIH Stroke Scale Item Scoring Definition Score 1a. LOC 0=alert and responsive 1=arousable to minor stimulation 2=arousable only to painful stimulation 3=reflex responses or unrousable 0 1b. LOC questions-as patients age and month. Must be exact. 0=both correct 1=one correct (or dysarthria, intubated, foreign language) 2=neither correct 2 1c. Commands-open/close eyes, superintendent drilling and release non-paretic hand (other 1 step co mmands or mimic OK) 0=both correct (ok if impaired by weakness) 1=one correct 2=neither correct 1 2. Best Gaze-horizontal EOM by voluntary or Dolls 0=normal 1=partial gaze palsy (abnormal gaze in one or both eyes) 2=forced eye deviation or total paresis which cannot be overcome by Dolls 2 3. Visual Field-use visual threat if necessary. If monocular, score field of goo d eye 0=no visual loss 1=partial hemianopia, quadrantanopia, extinction 2=complete hemianopia 3=bilateral hemianopia or blindness 7 4. Facial Palsy-if stuporous, check symmetry of grimace to pain 0=normal 1=minor paralysis, flat NLF, asymm smile 2=partial paralysis (lower face=UMN) 3=complete paralysis (upper and lower face) 2 5. Motor Arm-arms outstretched 90 deg (sitting) or 45 deg (supine) for 10 second s. Encourage best effort. 0=no drift x 10 seconds 1=drift but doesnt hit bed 2=some antigravity effort, but cant sustain 3=no antigravity effort, but even minimal mvt counts 4=no movement at all X=unable to assess due to amputation, fusion, etc L/R 0/2 6. Motor Leg-raise leg to 30 degrees supine x 5 seconds 0=no drift x 5 seconds 1=drift but doesnt hit bed 2=some antigravity effort, but cant sustain 3=no antigravity effort, but even minimal mvt counts 4=no movement at all X=unable to assess due to amputation, fusion, etc L/R 2/3 7. Limb Ataxia-check finger-nose- finger; heel-phelps; and score only if out of pr oportion to paralysis 0=no ataxia (or aphasic, hemiplegic) 1=ataxia in upper or lower extremity 2=ataxia in upper AND lower extremity X=unable to assess due to amputation, fusion, etc 0 8. Sensory-use safety pin. Check grimace or withdrawal if stuporous. Score only stroke- related losses 0=normal 1=mild-mod unilateral loss but patient aware of touch 9or aphasic, confused) 2=total loss, pt unaware of touch. Coma, bilateral loss 1 9. Best Language-describe cookie jar picture, name objects, read sentences. May use repeating, writing, stereognosis 0=normal 1=mild-mod aphasia (diff but partly comprehensible) 2=severe aphasia (almost no info exchanged) 3=mute, global aphasia, coma. No 1 step commands 3 10. Dysarthria-read list of words 0=normal or intubated or other physical barri er 1=mild-mod; slurred but intelligible 2=severe; unintelligible or mute 2 11. Extinction/Neglect- simultaneously touch patient on both hands, show fingers in both visual davis, ask about deficit, left hand 0=normal, none detected. ( visual loss alone) 1=neglects or extinguishes to double stimulation in any modality 2=profound neglect in more than one modality 2 Score 24 documented in this encounter Plan of Treatment Date/Time Name Type Priority Associated Diag noses 08/10/2022 9:30 PM HEATING WORKER [employer] Lab Routine Order Schedule Name Type Priority Associated Diag noses Ordered: 08/09/2022 ECG-SCAN Procedures ONE TIME for 1 Occurrences starting 08/01 until 08/19/2022 EVENT MONITOR Heart Rhythm Routine Management ONE TIME for 1 Occurrences starting 08/02 until 08/23/2022 EVENT MONITOR Heart Rhythm Routine Management documented as of this encounter Goals Goal Patient Associated Recent Progress Patient-Stat Aut hor Goal Type Problems ed? Remain independent Hospital Not on track No Licha, (08/10/2022 11:58 AM ROSENDO Guillen HEATING WORKER) documented as of this encounter Procedures Comments Procedure Name Priority Date/Time Associated Diag nosis HC CBC,AUTOMATED Routine 08/24/2022 6:34 AM HEATING WORKER HC BASIC METABOLIC PANEL Routine 08/24/2022 6:34 AM HEATING WORKER POC GLUCOSE 08/23/2022 8:54 PM HEATING WORKER HC CBC,AUTOMATED Routine 08/22/2022 7:03 AM HEATING WORKER HC BASIC METABOLIC PANEL Routine 08/22/2022 7:03 AM HEATING WORKER POC GLUCOSE 08/20/2022 9:44 PM HEATING WORKER IR GASTROSTOMY TUBE Routine 08/20/2022 PLACEMENT 4:08 PM HEATING WORKER SWALLOW MOTION SERIES Routine 08/20/2022 9:11 AM HEATING WORKER HC CBC,AUTOMATED Routine 08/20/2022 6:07 AM HEATING WORKER HC BASIC METABOLIC PANEL Routine 08/20/2022 6:07 AM HEATING WORKER TELEMETRY STRIPS-SCAN 08/20/2022 12:00 AM HEATING WORKER TELEMETRY STRIPS-SCAN 08/20/2022 12:00 AM HEATING WORKER TELEMETRY STRIPS-SCAN 08/20/2022 12:00 AM HEATING WORKER TELEMETRY STRIPS-SCAN 08/20/2022 12:00 AM HEATING WORKER TELEMETRY STRIPS-SCAN 08/20/2022 12:00 AM HEATING WORKER TELEMETRY STRIPS-SCAN 08/20/2022 12:00 AM HEATING WORKER TELEMETRY STRIPS-SCAN 08/20/2022 12:00 AM HEATING WORKER TELEMETRY STRIPS-SCAN 08/20/2022 12:00 AM HEATING WORKER HC CBC,AUTOMATED Routine 08/18/2022 6:44 AM HEATING WORKER HC BASIC METABOLIC PANEL Routine 08/18/2022 6:44 AM HEATING WORKER HC CBC,AUTOMATED Routine 08/17/2022 6:11 AM HEATING WORKER HC BASIC METABOLIC PANEL Routine 08/17/2022 6:11 AM HEATING WORKER HC CBC,AUTOMATED Routine 08/16/2022 6:56 AM HEATING WORKER HC BASIC METABOLIC PANEL Routine 08/16/2022 6:56 AM HEATING WORKER KASSI W/O CONTRAST Routine 08/15/2022 2:15 PM HEATING WORKER NM PET SCAN TORSO Routine 08/15/2022 (SKULL-THIGHS) 12:47 PM HEATING WORKER HC CBC,AUTOMATED Routine 08/15/2022 6:11 AM HEATING WORKER HC BASIC METABOLIC PANEL Routine 08/15/2022 6:11 AM HEATING WORKER HC CBC W/ AUTOMATED DIFF Routine 08/14/2022 6:39 AM HEATING WORKER HC BASIC METABOLIC PANEL Routine 08/14/2022 6:39 AM HEATING WORKER HC BETA-2 GLYCOPR 1 IGM Routine 08/13/2022 2:49 PM HEATING WORKER HC BETA 2 GP1 AB, IGG Routine 08/13/2022 2:49 PM HEATING WORKER HC HEX PHOSPHOLIPID NEUT Routine 08/13/2022 2:49 PM HEATING WORKER HC ANTICARDIO LIPIN IGG Routine 08/13/2022 2:49 PM HEATING WORKER HC CBC W/ AUTOMATED DIFF Routine 08/13/2022 3:12 AM HEATING WORKER HC PHOSPHOROUS, SERUM Routine 08/13/2022 3:12 AM HEATING WORKER HC MAGNESIUM Routine 08/13/2022 3:12 AM HEATING WORKER HC CALCIUM IONIZED Routine 08/13/2022 3:12 AM HEATING WORKER HC BASIC METABOLIC PANEL Routine 08/13/2022 3:12 AM HEATING WORKER HC CBC W/ AUTOMATED DIFF Routine 08/12/2022 2:17 AM HEATING WORKER HC PHOSPHOROUS, SERUM Routine 08/12/2022 2:17 AM HEATING WORKER HC MAGNESIUM Routine 08/12/2022 2:17 AM HEATING WORKER HC CALCIUM IONIZED Routine 08/12/2022 2:17 AM HEATING WORKER HC BASIC METABOLIC PANEL Routine 08/12/2022 2:[address] HEAD WO CONTRAST Routine 08/11/2022 11:[address] NECK W/CONTRAST Routine 08/11/2022 4:34 AM HEATING WORKER HC CBC W/ AUTOMATED DIFF Routine 08/11/2022 2:55 AM HEATING WORKER HC PHOSPHOROUS, SERUM Routine 08/11/2022 2:55 AM HEATING WORKER HC MAGNESIUM Routine 08/11/2022 2:55 AM HEATING WORKER HC CALCIUM IONIZED Routine 08/11/2022 2:55 AM HEATING WORKER HC BASIC METABOLIC PANEL Routine 08/11/2022 2:55 AM HEATING WORKER CHEST SINGLE VIEW Routine 08/11/2022 12:52 AM HEATING WORKER HC LACTIC ACID(LACTATE) Routine 08/10/2022 9:54 PM HEATING WORKER CLEAR TOP EXTRA URINE Routine 08/10/2022 TUBE 9:30 PM HEATING WORKER URINALYSIS MICROSCOPIC Routine 08/10/2022 REFLEX TO CULTURE 9:30 PM HEATING WORKER HC URINALYSIS UAR Routine 08/10/2022 9:30 PM HEATING WORKER HC PROLCALCITONIN (PROCA) Routine 08/10/2022 9:30 PM HEATING WORKER GRAM STAIN 08/10/2022 9:30 PM HEATING WORKER CULTURE-URINE 08/10/2022 W/SENSITIVITY 9:30 PM HEATING WORKER CULTURE-URINE Routine 08/10/2022 W/SENSITIVITY 9:30 PM HEATING WORKER CULTURE-RESP,LOWER Routine 08/10/2022 W/SENSITIVITY 9:30 PM HEATING WORKER CULTURE-BLOOD Routine 08/10/2022 W/SENSITIVITY 9:30 PM HEATING WORKER CULTURE-BLOOD Routine 08/10/2022 W/SENSITIVITY 9:30 PM HEATING WORKER HC MRSA PNEUMONIA SCREEN Routine 08/10/2022 9:[address] ABD/PELV WO CONTRAST Routine 08/10/2022 9:[address] CHEST WO CONTRAST Routine 08/10/2022 9:46 AM HEATING WORKER 2D + DOPPLER ECHO W/ Routine 08/10/2022 CONTRAST 7:[address] HEAD WO CONTRAST Routine 08/10/2022 6:24 AM HEATING WORKER HC CBC W/ AUTOMATED DIFF Routine 08/10/2022 2:38 AM HEATING WORKER HC PHOSPHOROUS, SERUM Routine 08/10/2022 2:38 AM HEATING WORKER HC MAGNESIUM Routine 08/10/2022 2:38 AM HEATING WORKER HC CALCIUM IONIZED Routine 08/10/2022 2:38 AM HEATING WORKER HC Routine 08/10/2022 LIPID-5:CHOL/TRG/HDL/LDL+ 2:38 AM HEATING WORKER VLDL HC BASIC METABOLIC PANEL Routine 08/10/2022 2:38 AM HEATING WORKER MRA HEAD WO CONTRAST STAT 08/09/2022 11:45 PM HEATING WORKER MRI HEAD WO CONTRAST STAT 08/09/2022 11:45 PM HEATING WORKER FEEDING TUBE PLCMNT Routine 08/09/2022 (ABD/CHEST LMTD) 10:51 PM HEATING WORKER CHEST SINGLE VIEW STAT 08/09/2022 6:12 PM HEATING WORKER HC TROPONIN-I 08/09/2022 5:30 PM HEATING WORKER HC CBC W/ AUTOMATED DIFF STAT 08/09/2022 5:30 PM HEATING WORKER HC PHOSPHOROUS, SERUM STAT 08/09/2022 5:30 PM HEATING WORKER HC B-TYPE NATRIURETIC 08/09/2022 PEPTIDE 5:30 PM HEATING WORKER HC MAGNESIUM STAT 08/09/2022 5:30 PM HEATING WORKER HC HEMOGLOBIN A1C Routine 08/09/2022 5:30 PM HEATING WORKER HC BLOOD STAT 08/09/2022 GASES;(CALCULATED 02) 5:30 PM HEATING WORKER HC COMPREHENSIVE STAT 08/09/2022 METABOLIC PANEL 5:30 PM HEATING WORKER IR ARTERIOGRAM NEURO STAT 08/09/2022 5:04 PM HEATING WORKER TELEMETRY STRIPS-SCAN 08/09/2022 12:00 AM HEATING WORKER TELEMETRY STRIPS-SCAN 08/09/2022 12:00 AM HEATING WORKER TELEMETRY STRIPS-SCAN 08/09/2022 12:00 AM HEATING WORKER TELEMETRY STRIPS-SCAN 08/09/2022 12:00 AM HEATING WORKER TELEMETRY STRIPS-SCAN 08/09/2022 12:00 AM HEATING WORKER TELEMETRY STRIPS-SCAN 08/09/2022 12:00 AM HEATING WORKER TELEMETRY STRIPS-SCAN 08/09/2022 12:00 AM HEATING WORKER documented in this encounter Results * (ABNORMAL) CBC (08/24/2022 6:34 AM HEATING WORKER) Pathologist Signature Component Value Ref Test Method Analysis Performed A t Range Time White Blood Cells 11.5 (H) 4.5 - 08/24/2022 [facility] DE PT PATH AND 11.0 7:19 AM LAB MEDICINE K/UL HEATING WORKER RBC 4.73 4.4 - 08/24/2022 [facility] DEPT PAT H AND 5.5 M/UL 7:19 AM LAB MEDICINE HEATING WORKER Hemoglobin 13.9 13.5 - 08/24/2022 [facility] DEPT PAT H AND 16.5 7:19 AM LAB MEDICINE GM/DL HEATING WORKER Hematocrit 43.1 40 - 50 08/24/2022 [facility] DEPT PAT H AND % 7:19 AM LAB MEDICINE HEATING WORKER MCV 91.1 80 - 100 08/24/2022 [facility] DEPT PAT H AND FL 7:19 AM LAB MEDICINE HEATING WORKER MCH 29.5 26 - 34 08/24/2022 [facility] DEPT PAT H AND PG 7:19 AM LAB MEDICINE HEATING WORKER MCHC 32.4 32.0 - 08/24/2022 [facility] DEPT PAT H AND 36.0 7:19 AM LAB MEDICINE G/DL HEATING WORKER RDW 14.2 11 - 15 08/24/2022 [facility] DEPT PAT H AND % 7:19 AM LAB MEDICINE HEATING WORKER Platelet Count 275 150 - 08/24/2022 [facility] DEPT PATH AND 400 K/UL 7:19 AM LAB MEDICINE HEATING WORKER MPV 9.6 7 - 11 08/24/2022 [facility] DEPT PAT H AND FL 7:19 AM LAB MEDICINE HEATING WORKER Anatomical Location / Laterality Collection Method / Volume Juvenal ection Time Received Time Specimen (Source) BLOOD / Unknown 08/24/2022 6:34 AM HEATING WORKER 08/24/19 6:35 AM HEATING WORKER Bart Ministerio Gyatanastonrosi LABORATORY ORDERABLES City/State/ZIP Code Phone Number Per[place] [address] [facility] DEPT PATH AND [address] [facility]. LAB MEDICINE * (ABNORMAL) BASIC METABOLIC PANEL (08/24/2022 6:34 AM HEATING WORKER) Pathologist Signature Component Value Ref Test Method Analysis Performed A t Range Time Sodium 138 137 - 08/24/2022 [facility] DEPT PAT H AND 147 7:39 AM LAB MEDICINE MMOL/L HEATING WORKER Potassium 4.5 3.5 - 08/24/2022 [facility] DEPT PAT H AND 5.1 7:39 AM LAB MEDICINE MMOL/L HEATING WORKER Chloride 102 98 - 110 08/24/2022 [facility] DEPT PAT H AND MMOL/L 7:39 AM LAB MEDICINE HEATING WORKER CO2 28 21 - 30 08/24/2022 [facility] DEPT PAT H AND MMOL/L 7:39 AM LAB MEDICINE HEATING WORKER Anion Gap 8 3 - 12 08/24/2022 [facility] DEPT PAT H AND 7:39 AM LAB MEDICINE HEATING WORKER Glucose 114 (H) 70 - 100 08/24/2022 [facility] DEPT PAT H AND MG/DL 7:39 AM LAB MEDICINE HEATING WORKER Blood Urea Nitrogen 39 (H) 7 - 25 08/24/2022 [facility] DEPT PATH AND MG/DL 7:39 AM LAB MEDICINE HEATING WORKER Creatinine 1.62 (H) 0.4 - 08/24/2022 [facility] DEPT PAT H AND 1.24 7:39 AM LAB MEDICINE MG/DL HEATING WORKER Calcium 9.3 8.5 - 08/24/2022 [facility] DEPT PAT H AND 10.6 7:39 AM LAB MEDICINE MG/DL HEATING WORKER eGFR 44 (L) >60 08/24/2022 [facility] DEPT PAT H AND mL/min 7:39 AM LAB MEDICINE HEATING WORKER Comment: eGFR calculated using the CKD-EPIcr_R equation Anatomical Location / Laterality Collection Method / Volume Juvenal ection Time Received Time Specimen (Source) BLOOD / Unknown 08/24/2022 6:34 AM HEATING WORKER 08/24/19 6:35 AM HEATING WORKER Bart Mandujano DO LABORATORY ORDERABLES City/State/ZIP Code Phone Number Performing [place] [address] [facility] DEPT PATH AND [address] LAB MEDICINE * (ABNORMAL) POC GLUCOSE (08/23/2022 8:54 PM HEATING WORKER) Pathologist Signature Component Value Ref Test Method Analysis Performed A t Range Time Glucose, POC 128 (H) 70 - 100 [facility] MG/DL 8:55 PM TOWER A HEATING WORKER Anatomical Location / Laterality Collection Method / Volume Juvenal ection Time Received Time Specimen (Source) 08/23/2022 8:54 PM HEATING WORKER 08/23/19 8:55 PM HEATING WORKER Bart Mandujano DO OTHER LABORATORY City/State/ZIP Code Phone Number Performing [place] [address] [facility] [address] [facility] A * (ABNORMAL) CBC (08/22/2022 7:03 AM HEATING WORKER) Pathologist Signature Component Value Ref Test Method Analysis Performed A t Range Time White Blood Cells 11.7 (H) 4.5 - 08/22/2022 [facility] DE PT PATH AND 11.0 7:30 AM LAB MEDICINE K/UL HEATING WORKER RBC 4.75 4.4 - 08/22/2022 [facility] DEPT PAT H AND 5.5 M/UL 7:30 AM LAB MEDICINE HEATING WORKER Hemoglobin 14.1 13.5 - 08/22/2022 [facility] DEPT PAT H AND 16.5 7:30 AM LAB MEDICINE GM/DL HEATING WORKER Hematocrit 42.8 40 - 50 08/22/2022 [facility] DEPT PAT H AND % 7:30 AM LAB MEDICINE HEATING WORKER MCV 90.1 80 - 100 08/22/2022 [facility] DEPT PAT H AND FL 7:30 AM LAB MEDICINE HEATING WORKER MCH 29.7 26 - 34 08/22/2022 [facility] DEPT PAT H AND PG 7:30 AM LAB MEDICINE HEATING WORKER MCHC 33.0 32.0 - 08/22/2022 [facility] DEPT PAT H AND 36.0 7:30 AM LAB MEDICINE G/DL HEATING WORKER RDW 14.2 11 - 15 08/22/2022 [facility] DEPT PAT H AND % 7:30 AM LAB MEDICINE HEATING WORKER Platelet Count 283 150 - 08/22/2022 [facility] DEPT PATH AND 400 K/UL 7:30 AM LAB MEDICINE HEATING WORKER MPV 9.3 7 - 11 08/22/2022 [facility] DEPT PAT H AND FL 7:30 AM LAB MEDICINE HEATING WORKER Anatomical Location / Laterality Collection Method / Volume Juvenal ection Time Received Time Specimen (Source) BLOOD / Unknown 08/22/2022 7:03 AM HEATING WORKER 08/22/19 7:04 AM HEATING WORKER Bart Mandujano DO LABORATORY ORDERABLES City/State/ZIP Code Phone Number Performing [place] [address] [facility] DEPT PATH AND [address] [facility] LAB MEDICINE * (ABNORMAL) BASIC METABOLIC PANEL (08/22/2022 7:03 AM HEATING WORKER) Pathologist Signature Component Value Ref Test Method Analysis Performed A t Range Time Sodium 139 137 - 08/22/2022 [facility] DEPT PAT H AND 147 7:59 AM LAB MEDICINE MMOL/L HEATING WORKER Potassium 4.3 3.5 - 08/22/2022 [facility] DEPT PAT H AND 5.1 7:59 AM LAB MEDICINE MMOL/L HEATING WORKER Chloride 104 98 - 110 08/22/2022 [facility] DEPT PAT H AND MMOL/L 7:59 AM LAB MEDICINE HEATING WORKER CO2 28 21 - 30 08/22/2022 [facility] DEPT PAT H AND MMOL/L 7:59 AM LAB MEDICINE HEATING WORKER Anion Gap 7 3 - 12 08/22/2022 [facility] DEPT PAT H AND 7:59 AM LAB MEDICINE HEATING WORKER Glucose 147 (H) 70 - 100 08/22/2022 [facility] DEPT PAT H AND MG/DL 7:59 AM LAB MEDICINE HEATING WORKER Blood Urea Nitrogen 45 (H) 7 - 25 08/22/2022 [facility] DEPT PATH AND MG/DL 7:59 AM LAB MEDICINE HEATING WORKER Creatinine 1.92 (H) 0.4 - 08/22/2022 [facility] DEPT PAT H AND 1.24 7:59 AM LAB MEDICINE MG/DL HEATING WORKER Calcium 9.5 8.5 - 08/22/2022 [facility] DEPT PAT H AND 10.6 7:59 AM LAB MEDICINE MG/DL HEATING WORKER eGFR 36 (L) >60 08/22/2022 [facility] DEPT PAT H AND mL/min 7:59 AM LAB MEDICINE HEATING WORKER Comment: eGFR calculated using the CKD-EPIcr_R equation Anatomical Location / Laterality Collection Method / Volume Juvenal ection Time Received Time Specimen (Source) BLOOD / Unknown 08/22/2022 7:03 AM HEATING WORKER 08/22/19 7:04 AM HEATING WORKER Bart Gonzalezrosi DO LABORATORY ORDERABLES City/State/ZIP Code Phone Number Performing Address Organization [address] DEPT PATH AND [address] [facility] LAB MEDICINE * POC GLUCOSE (08/20/2022 9:44 PM HEATING WORKER) Pathologist Signature Component Value Ref Test Method Analysis Performed A t Range Time Glucose, POC 98 70 - 100 08/20/2022 [facility] GE MG/DL 9:46 PM TOWER A HEATING WORKER Anatomical Location / Laterality Collection Method / Volume Juvenal ection Time Received Time Specimen (Source) 08/20/2022 9:44 PM HEATING WORKER 08/20/19 9:46 PM HEATING WORKER Bart Mandujano DO OTHER LABORATORY City/State/ZIP Code Phone Number Performing Address Organization [address] [facility] A * IR GASTROSTOMY TUBE PLACEMENT (08/20/2022 4:08 PM HEATING WORKER) Modality Anatomical Region Laterality X-Ray Angiography Anatomical Location / Laterality Collection Method / Volume Juvenal ection Time Received Time Specimen (Source) 08/20/2022 7:12 PM HEATING WORKER Impressions 08/21/2022 8:39 AM HEATING WORKER Successful image guided placement of a [...] 08/20/2022 7:12 PM. Narrative 08/21/2022 8:39 AM HEATING WORKER IMAGE-GUIDED GASTRIC TUBE PLACEMENT INDICATION: Patient with dysphasia secondary to stroke WASH RACK OPERATOR: Misti Rm M.D. and Alden Winkler M.D. [...] tract was serially dilated to a 22 Martiniquais peel-away sheath. A gastric tube was advanced [...] INDICATION: Patient with dysphasia secondary to stroke WASH RACK OPERATOR: Misti Rm M.D. and Alden Winkler M.D. [...] tract was serially dilated to a 22 Martiniquais peel-away sheath. A gastric tube was advanced over the wire into the stomach. Intragastric position was again confirmed with contrast injection. Balloon was inflated with 20 mL of tap water. The patient tolerated the procedure well, without complication. FINDINGS: A documentation image demonstrates the gastric tube well-positioned. IMPRESSION Successful image guided placement of a gastric tube as described IAlden M.D, the attending radiologist, was available for [...] 08/20/2022 7:12 PM. Angeline BLANTON ORDERABLES Aida ELECTR[employer]IAN [employer] * SWALLOW MOTION SERIES (08/20/2022 9:11 AM HEATING WORKER) Modality Anatomical Region Laterality Computed Radiography NECK Anatomical Location / Laterality Collection Method / Volume Juvenal ection Time Received Time Specimen (Source) 08/20/2022 9:12 AM HEATING WORKER Impressions 08/20/2022 9:42 AM HEATING WORKER FINDINGS/IMPRESSION: 1. Limited examination due to patient condition and inability to follow commands. 2. Essentially no voluntary swallows w ith ingested contrast material were visualized. There was a minimal amount of liquid barium administered orally without obvious laryngeal penetration or aspiration. 3. Please see separately dictated repo rt from the Department of Speech Pathology for further description. By my electronic signature, I attest that I have personally reviewed the images for this examination and formulated the interpretations and opinions expressed in this report Finalized by Elina Ga M.D. on 08/20/2022 9:42 AM. Dictated by Livan Salazar MD on 08/20/2022 9:12 AM. Narrative 08/20/2022 9:42 AM HEATING WORKER SWALLOW MOTION SERIES CLINICAL HISTORY: Dysphagia. TECHNIQUE: The procedure was performed in conjunction with members of the department of speech pathology. Video fluoroscopy was performed during swallowing of various consistencies of barium. The patient tolerated the procedure well and left the department in stable condition. TOTAL FLUOROSCOPY TIME: 60 seconds Procedure Note Elina Ga MD - 08/20/2022 SWALLOW MOTION SERIES CLINICAL HISTORY: Dysphagia. TECHNIQUE: The procedure was performed in conjunction with members of the department of speech pathology. Video fluoroscopy was performed during swallowing of various consistencies of barium. The patient tolerated the procedure well and left the department in stable condition. TOTAL FLUOROSCOPY TIME: 60 seconds IMPRESSION FINDINGS/IMPRESSION: 1. Limited examination due to patient c ondition and inability to follow commands. 2. Essentially no voluntary swallows wi th ingested contrast material were visualized. There was a minimal amount of liquid barium administered orally without obvious laryngeal penetration or aspiration. 3. Please see separately dictated repor t from the Department of Speech Pathology for further description. By my electronic signature, I attest that I have personally reviewed the images for this examination and formulated the interpretations and opinions expressed in this report Finalized by Elina Ga M.D. on 08/20/2022 9:42 AM. Dictated by Livan Salazar MD on 08/20/2022 9:12 AM. Angeline Shahid FLUOROSCOPY ORDERABLES Lilly ELECTRICIAN [employer]ENCE [employer] * CBC (08/20/2022 6:07 AM HEATING WORKER) Pathologist Signature Component Value Ref Test Method Analysis Performed A t Range Time White Blood Cells 9.4 4.5 - 08/20/2022 [facility] DE PT PATH AND 11.0 7:03 AM LAB MEDICINE K/UL HEATING WORKER RBC 4.68 4.4 - 08/20/2022 [facility] DEPT PAT H AND 5.5 M/UL 7:03 AM LAB MEDICINE HEATING WORKER Hemoglobin 14.3 13.5 - 08/20/2022 [facility] DEPT PAT H AND 16.5 7:03 AM LAB MEDICINE GM/DL HEATING WORKER Hematocrit 42.5 40 - 50 08/20/2022 [facility] DEPT PAT H AND % 7:03 AM LAB MEDICINE HEATING WORKER MCV 90.7 80 - 100 08/20/2022 [facility] DEPT PAT H AND FL 7:03 AM LAB MEDICINE HEATING WORKER MCH 30.6 26 - 34 08/20/2022 [facility] DEPT PAT H AND PG 7:03 AM LAB MEDICINE HEATING WORKER MCHC 33.7 32.0 - 08/20/2022 [facility] DEPT PAT H AND 36.0 7:03 AM LAB MEDICINE G/DL HEATING WORKER RDW 14.1 11 - 15 08/20/2022 [facility] DEPT PAT H AND % 7:03 AM LAB MEDICINE HEATING WORKER Platelet Count 295 150 - 08/20/2022 [facility] DEPT PATH AND 400 K/UL 7:03 AM LAB MEDICINE HEATING WORKER MPV 9.6 7 - 11 08/20/2022 [facility] DEPT PAT H AND FL 7:03 AM LAB MEDICINE HEATING WORKER Anatomical Location / Laterality Collection Method / Volume Juvenal ection Time Received Time Specimen (Source) BLOOD / Unknown 08/20/2022 6:07 AM HEATING WORKER 08/20/19 6:08 AM HEATING WORKER Bart Mandujano DO LABORATORY ORDERABLES City/State/ZIP Code Phone Number Performing [place] [address] [facility] DEPT PATH AND [address] [facility] LAB MEDICINE * (ABNORMAL) BASIC METABOLIC PANEL (08/20/2022 6:07 AM HEATING WORKER) Pathologist Signature Component Value Ref Test Method Analysis Performed A t Range Time Sodium 141 137 - 08/20/2022 [facility] DEPT PAT H AND 147 7:27 AM LAB MEDICINE MMOL/L HEATING WORKER Potassium 4.3 3.5 - 08/20/2022 [facility] DEPT PAT H AND 5.1 7:27 AM LAB MEDICINE MMOL/L HEATING WORKER Chloride 104 98 - 110 08/20/2022 [facility] DEPT PAT H AND MMOL/L 7:27 AM LAB MEDICINE HEATING WORKER CO2 27 21 - 30 08/20/2022 [facility] DEPT PAT H AND MMOL/L 7:27 AM LAB MEDICINE HEATING WORKER Anion Gap 10 3 - 12 08/20/2022 [facility] DEPT PAT H AND 7:27 AM LAB MEDICINE HEATING WORKER Glucose 122 (H) 70 - 100 08/20/2022 [facility] DEPT PAT H AND MG/DL 7:27 AM LAB MEDICINE HEATING WORKER Blood Urea Nitrogen 35 (H) 7 - 25 08/20/2022 [facility] DEPT PATH AND MG/DL 7:27 AM LAB MEDICINE HEATING WORKER Creatinine 1.63 (H) 0.4 - 08/20/2022 [facility] DEPT PAT H AND 1.24 7:27 AM LAB MEDICINE MG/DL HEATING WORKER Calcium 9.2 8.5 - 08/20/2022 [facility] DEPT PAT H AND 10.6 7:27 AM LAB MEDICINE MG/DL HEATING WORKER eGFR 43 (L) >60 08/20/2022 [facility] DEPT PAT H AND mL/min 7:27 AM LAB MEDICINE HEATING WORKER Comment: eGFR calculated using the CKD-EPIcr_R equation Anatomical Location / Laterality Collection Method / Volume Juvenal ection Time Received Time Specimen (Source) BLOOD / Unknown 08/20/2022 6:07 AM HEATING WORKER 08/20/19 6:08 AM HEATING WORKER Bart Mandujano DO LABORATORY ORDERABLES City/State/ZIP Code Phone Number Per[place] [address] [facility] DEPT PATH AND [address] [facility] LAB MEDICINE * TELEMETRY STRIPS-SCAN (08/20/2022 12:00 AM HEATING WORKER) Narrative 08/20/2022 12:00 AM HEATING WORKER Ordered by an unspecified provider. Scanned Document PROCEDURE DUMMY ORDERS * TELEMETRY STRIPS-SCAN (08/20/2022 12:00 AM HEATING WORKER) Narrative 08/20/2022 12:00 AM HEATING WORKER Ordered by an unspecified provider. Scanned Document PROCEDURE DUMMY ORDERS * TELEMETRY STRIPS-SCAN (08/20/2022 12:00 AM HEATING WORKER) Narrative 08/20/2022 12:00 AM HEATING WORKER Ordered by an unspecified provider. Scanned Document PROCEDURE DUMMY ORDERS * TELEMETRY STRIPS-SCAN (08/20/2022 12:00 AM HEATING WORKER) Narrative 08/20/2022 12:00 AM HEATING WORKER Ordered by an unspecified provider. Scanned Document PROCEDURE DUMMY ORDERS * TELEMETRY STRIPS-SCAN (08/20/2022 12:00 AM HEATING WORKER) Narrative 08/20/2022 12:00 AM HEATING WORKER Ordered by an unspecified provider. Scanned Document PROCEDURE DUMMY ORDERS * TELEMETRY STRIPS-SCAN (08/20/2022 12:00 AM HEATING WORKER) Narrative 08/20/2022 12:00 AM HEATING WORKER Ordered by an unspecified provider. Scanned Document PROCEDURE DUMMY ORDERS * TELEMETRY STRIPS-SCAN (08/20/2022 12:00 AM HEATING WORKER) Narrative 08/20/2022 12:00 AM HEATING WORKER Ordered by an unspecified provider. Scanned Document PROCEDURE DUMMY ORDERS * TELEMETRY STRIPS-SCAN (08/20/2022 12:00 AM HEATING WORKER) Narrative 08/20/2022 12:00 AM HEATING WORKER Ordered by an unspecified provider. Scanned Document PROCEDURE DUMMY ORDERS * CBC (08/18/2022 6:44 AM HEATING WORKER) Pathologist Signature Component Value Ref Test Method Analysis Performed A t Range Time White Blood Cells 8.5 4.5 - 08/18/2022 [facility] DE PT PATH AND 11.0 7:13 AM LAB MEDICINE K/UL HEATING WORKER RBC 4.56 4.4 - 08/18/2022 [facility] DEPT PAT H AND 5.5 M/UL 7:13 AM LAB MEDICINE HEATING WORKER Hemoglobin 13.8 13.5 - 08/18/2022 [facility] DEPT PAT H AND 16.5 7:13 AM LAB MEDICINE GM/DL HEATING WORKER Hematocrit 41.4 40 - 50 08/18/2022 [facility] DEPT PAT H AND % 7:13 AM LAB MEDICINE HEATING WORKER MCV 90.9 80 - 100 08/18/2022 [facility] DEPT PAT H AND FL 7:13 AM LAB MEDICINE HEATING WORKER MCH 30.2 26 - 34 08/18/2022 [facility] DEPT PAT H AND PG 7:13 AM LAB MEDICINE HEATING WORKER MCHC 33.2 32.0 - 08/18/2022 [facility] DEPT PAT H AND 36.0 7:13 AM LAB MEDICINE G/DL HEATING WORKER RDW 14.2 11 - 15 08/18/2022 [facility] DEPT PAT H AND % 7:13 AM LAB MEDICINE HEATING WORKER Platelet Count 282 150 - 08/18/2022 [facility] DEPT PATH AND 400 K/UL 7:13 AM LAB MEDICINE HEATING WORKER MPV 9.2 7 - 11 08/18/2022 [facility] DEPT PAT H AND FL 7:13 AM LAB MEDICINE HEATING WORKER Anatomical Location / Laterality Collection Method / Volume Juvenal ection Time Received Time Specimen (Source) BLOOD / Unknown 08/18/2022 6:44 AM HEATING WORKER 08/18/19 6:45 AM HEATING WORKER Angeline Shahid LABORATORY ORDERABLES Aida AVILEZ[employer]-CONFERENCE CONCIERGE City/State/ZIP Code Phone Number Performing [place] [address] [facility] DEPT PATH AND [address] [facility] LAB MEDICINE * (ABNORMAL) BASIC METABOLIC PANEL (08/18/2022 6:44 AM HEATING WORKER) Pathologist Signature Component Value Ref Test Method Analysis Performed A t Range Time Sodium 140 137 - 08/18/2022 [facility] DEPT PAT H AND 147 7:32 AM LAB MEDICINE MMOL/L HEATING WORKER Potassium 4.2 3.5 - 08/18/2022 [facility] DEPT PAT H AND 5.1 7:32 AM LAB MEDICINE MMOL/L HEATING WORKER Chloride 106 98 - 110 08/18/2022 [facility] DEPT PAT H AND MMOL/L 7:32 AM LAB MEDICINE HEATING WORKER CO2 26 21 - 30 08/18/2022 [facility] DEPT PAT H AND MMOL/L 7:32 AM LAB MEDICINE HEATING WORKER Anion Gap 8 3 - 12 08/18/2022 [facility] DEPT PAT H AND 7:32 AM LAB MEDICINE HEATING WORKER Glucose 124 (H) 70 - 100 08/18/2022 [facility] DEPT PAT H AND MG/DL 7:32 AM LAB MEDICINE HEATING WORK[employer] Blood Urea Nitrogen 39 (H) 7 - 25 08/18/2022 [facility] DEPT PATH AND MG/DL 7:32 AM LAB MEDICINE HEATING WORK[employer] Creatinine 1.80 (H) 0.4 - 08/18/2022 [facility] DEPT PAT H AND 1.24 7:32 AM LAB MEDICINE MG/DL HEATING WORKER Calcium 9.0 8.5 - 08/18/2022 [facility] DEPT PAT H AND 10.6 7:32 AM LAB MEDICINE MG/DL HEATING WORKER eGFR 39 (L) >60 08/18/2022 [facility] DEPT PAT H AND mL/min 7:32 AM LAB MEDICINE HEATING WORKER Comment: eGFR calculated using the CKD-EPIcr_R equation Anatomical Location / Laterality Collection Method / Volume Juvenal ection Time Received Time Specimen (Source) BLOOD / Unknown 08/18/2022 6:44 AM HEATING WORKER 08/18/19 6:45 AM HEATING WORKER Angeline Shahid LABORATORY ORDERABLES [place] City/State/ZIP Code Phone Number [place] [address] [facility] DEPT PATH AND [address] LAB MEDICINE * (ABNORMAL) BASIC METABOLIC PANEL (08/17/2022 6:11 AM HEATING WORKER) Pathologist Signature Component Value Ref Test Method Analysis Performed A t Range Time Sodium 140 137 - 08/17/2022 [facility] DEPT PAT H AND 147 7:02 AM LAB MEDICINE MMOL/L HEATING WORKER Potassium 4.0 3.5 - 08/17/2022 [facility] DEPT PAT H AND 5.1 7:02 AM LAB MEDICINE MMOL/L HEATING WORKER Chloride 106 98 - 110 08/17/2022 [facility] DEPT PAT H AND MMOL/L 7:02 AM LAB MEDICINE HEATING WORKER CO2 25 21 - 30 08/17/2022 [facility] DEPT PAT H AND MMOL/L 7:02 AM LAB MEDICINE HEATING WORKER Anion Gap 9 3 - 12 08/17/2022 [facility] DEPT PAT H AND 7:02 AM LAB MEDICINE HEATING WORKER Glucose 140 (H) 70 - 100 08/17/2022 [facility] DEPT PAT H AND MG/DL 7:02 AM LAB MEDICINE HEATING WORKER Blood Urea Nitrogen 40 (H) 7 - 25 08/17/2022 [facility] DEPT PATH AND MG/DL 7:02 AM LAB MEDICINE HEATING WORKER Creatinine 1.64 (H) 0.4 - 08/17/2022 [facility] DEPT PAT H AND 1.24 7:02 AM LAB MEDICINE MG/DL HEATING WORKER Calcium 8.9 8.5 - 08/17/2022 [facility] DEPT PAT H AND 10.6 7:02 AM LAB MEDICINE MG/DL HEATING WORKER eGFR 43 (L) >60 08/17/2022 [facility] DEPT PAT H AND mL/min 7:02 AM LAB MEDICINE HEATING WORKER Comment: eGFR calculated using the CKD-EPIcr_R equation Anatomical Location / Laterality Collection Method / Volume Juvenal ection Time Received Time Specimen (Source) BLOOD / Unknown 08/17/2022 6:11 AM HEATING WORKER 08/17/19 6:12 AM HEATING WORKER Angeline Shahid LABORATORY ORDERABLES [facility] [employer] City/State/ZIP Code Phone Number Performing [place] [address] [facility] DEPT PATH AND [address] [facility]. LAB MEDICINE * CBC (08/17/2022 6:11 AM HEATING WORKER) Pathologist Signature Component Value Ref Test Method Analysis Performed A t Range Time White Blood Cells 7.4 4.5 - 08/17/2022 [facility] DE PT PATH AND 11.0 6:36 AM LAB MEDICINE K/UL HEATING WORKER RBC 4.60 4.4 - 08/17/2022 [facility] DEPT PAT H AND 5.5 M/UL 6:36 AM LAB MEDICINE HEATING WORKER Hemoglobin 14.0 13.5 - 08/17/2022 [facility] DEPT PAT H AND 16.5 6:36 AM LAB MEDICINE GM/DL HEATING WORKER Hematocrit 41.6 40 - 50 08/17/2022 [facility] DEPT PAT H AND % 6:36 AM LAB MEDICINE HEATING WORKER MCV 90.4 80 - 100 08/17/2022 [facility] DEPT PAT H AND FL 6:36 AM LAB MEDICINE HEATING WORKER MCH 30.5 26 - 34 08/17/2022 [facility] DEPT PAT H AND PG 6:36 AM LAB MEDICINE HEATING WORKER MCHC 33.7 32.0 - 08/17/2022 [facility] DEPT PAT H AND 36.0 6:36 AM LAB MEDICINE G/DL HEATING WORKER RDW 13.8 11 - 15 08/17/2022 [facility] DEPT PAT H AND % 6:36 AM LAB MEDICINE HEATING WORKER Platelet Count 281 150 - 08/17/2022 [facility] DEPT PATH AND 400 K/UL 6:36 AM LAB MEDICINE HEATING WORKER MPV 9.2 7 - 11 08/17/2022 [facility] DEPT PAT H AND FL 6:36 AM LAB MEDICINE HEATING WORKER Anatomical Location / Laterality Collection Method / Volume Juvenal ection Time Received Time Specimen (Source) BLOOD / Unknown 08/17/2022 6:11 AM HEATING WORKER 08/17/19 6:12 AM HEATING WORKER Angeline Shahid LABORATORY ORDERABLES Aida [facility] [facility]/State/ZIP Code Phone Number Performing [place] [address] [facility] DEPT PATH AND [address] LAB MEDICINE * (ABNORMAL) BASIC METABOLIC PANEL (08/16/2022 6:56 AM HEATING WORKER) Pathologist Signature Component Value Ref Test Method Analysis Performed A t Range Time Sodium 139 137 - 08/16/2022 [facility] DEPT PAT H AND 147 7:44 AM LAB MEDICINE MMOL/L HEATING WORKER Potassium 3.5 3.5 - 08/16/2022 [facility] DEPT PAT H AND 5.1 7:44 AM LAB MEDICINE MMOL/L HEATING WORKER Chloride 104 98 - 110 08/16/2022 [facility] DEPT PAT H AND MMOL/L 7:44 AM LAB MEDICINE HEATING WORKER CO2 26 21 - 30 08/16/2022 [facility] DEPT PAT H AND MMOL/L 7:44 AM LAB MEDICINE HEATING WORKER Anion Gap 9 3 - 12 08/16/2022 [facility] DEPT PAT H AND 7:44 AM LAB MEDICINE HEATING WORKER Glucose 137 (H) 70 - 100 08/16/2022 [facility] DEPT PAT H AND MG/DL 7:44 AM LAB MEDICINE HEATING WORKER Blood Urea Nitrogen 39 (H) 7 - 25 08/16/2022 [facility] DEPT PATH AND MG/DL 7:44 AM LAB MEDICINE HEATING WORKER Creatinine 1.70 (H) 0.4 - 08/16/2022 [facility] DEPT PAT H AND 1.24 7:44 AM LAB MEDICINE MG/DL HEATING WORKER Calcium 8.8 8.5 - 08/16/2022 [facility] DEPT PAT H AND 10.6 7:44 AM LAB MEDICINE MG/DL HEATING WORKER eGFR 41 (L) >60 08/16/2022 [facility] DEPT PAT H AND mL/min 7:44 AM LAB MEDICINE HEATING WORKER Comment: eGFR calculated using the CKD-EPIcr_R equation Anatomical Location / Laterality Collection Method / Volume Juvenal ection Time Received Time Specimen (Source) BLOOD / Unknown 08/16/2022 6:56 AM HEATING WORKER 08/16/19 6:57 AM HEATING WORKER Angeline Shahid LABORATORY ORDERABLES Aida AVILEZN-[employer]ENCE [employer] [facility]/State/ZIP Code Phone Number [place]forming [place] [address] [facility] DEPT PATH AND [address] LAB MEDICINE * CBC (08/16/2022 6:56 AM HEATING WORKER) Pathologist Signature Component Value Ref Test Method Analysis Performed A t Range Time White Blood Cells 7.4 4.5 - 08/16/2022 [facility] DE PT PATH AND 11.0 7:14 AM LAB MEDICINE K/UL HEATING WORKER RBC 4.63 4.4 - 08/16/2022 [facility] DEPT PAT H AND 5.5 M/UL 7:14 AM LAB MEDICINE HEATING WORKER Hemoglobin 13.9 13.5 - 08/16/2022 [facility] DEPT PAT H AND 16.5 7:14 AM LAB MEDICINE GM/DL HEATING WORKER Hematocrit 41.7 40 - 50 08/16/2022 [facility] DEPT PAT H AND % 7:14 AM LAB MEDICINE HEATING WORKER MCV 90.1 80 - 100 08/16/2022 [facility] DEPT PAT H AND FL 7:14 AM LAB MEDICINE HEATING WORKER MCH 29.9 26 - 34 08/16/2022 [facility] DEPT PAT H AND PG 7:14 AM LAB MEDICINE HEATING WORKER MCHC 33.2 32.0 - 08/16/2022 [facility] DEPT PAT H AND 36.0 7:14 AM LAB MEDICINE G/DL HEATING WORKER RDW 13.9 11 - 15 08/16/2022 [facility] DEPT PAT H AND % 7:14 AM LAB MEDICINE HEATING WORKER Platelet Count 256 150 - 08/16/2022 [facility] DEPT PATH AND 400 K/UL 7:14 AM LAB MEDICINE HEATING WORKER MPV 9.0 7 - 11 08/16/2022 [facility] DEPT PAT H AND FL 7:14 AM LAB MEDICINE HEATING WORKER Anatomical Location / Laterality Collection Method / Volume Juvenal ection Time Received Time Specimen (Source) BLOOD / Unknown 08/16/2022 6:56 AM HEATING WORKER 08/16/19 23 6:57 AM HEATING WORKER Angeline Shahid LABORATORY ORDERABLES [place] City/State/ZIP Code Phone Number [place] [address] [facility] DEPT PATH AND [address] [facility] LAB MEDICINE * KASSI W/O CONTRAST (08/15/2022 2:15 PM HEATING WORKER) Pathologist Signature Component Value Ref Test [...] Time Specimen (Source) Narrative 08/15/2022 2:42 PM HEATING WORKER 1. No evidence of interatrial shunting [...] atherosclerotic plaquing in the thoracic aorta Angeline J ECHO ORDERABLES Lilly [employer] * NM PET SCAN TORSO (SKULL-THIGHS) (08/15/2022 12:47 PM HEATING WORKER) Modality Anatomical Region Laterality Nuclear Medicine BODY/CAP Anatomical Location / Laterality Collection Method / Volume Juvenal ection Time Received Time Specimen (Source) 08/15/2022 12:46 PM HEATING WORKER Impressions 08/15/2022 12:49 PM HEATING WORKER No discrete hypermetabolic mass or metastatic disease. Finalized by Gaurang Lopez M.D. on 08/15/2022 12:49 PM. Dictated by Gaurang Lopez M.D. on 08/15/2022 12:46 PM. Narrative 08/15/2022 12:49 PM HEATING WORKER NM PET SCAN TORSO (SKULL-THIGHS) Radiopharmaceutical: 11.8 mCi F-18 Fluorodeoxyglucose (FDG) IV. Clinical Indication: Stroke. Concern for malignancy. Technique: PET imaging was performed from the skull to thighs 52 minutes after tracer administration. Low dose non-contrast CT imaging was performed for attenuation correction and localization purposes. Current mean hepatic SUV (reported for quality improvement coordinator (rn) purposes) is 2.6. Blood glucose level (at [...] purposes. Current mean hepatic SUV (reported for quality improvement coordinator (rn) purposes) is 2.6. Blood glucose level (at [...] M.D. on 08/15/2022 12:46 PM. Angeline Shahid NUC MED ORDERABLES Aida [facility] * CBC (08/15/2022 6:11 AM HEATING WORKER) Pathologist Signature Component Value Ref Test Method Analysis Performed A t Range Time White Blood Cells 6.9 4.5 - 08/15/2022 [facility] DE PT PATH AND 11.0 7:17 AM LAB MEDICINE K/UL HEATING WORKER RBC 4.62 4.4 - 08/15/2022 [facility] DEPT PAT H AND 5.5 M/UL 7:17 AM LAB MEDICINE HEATING WORKER Hemoglobin 13.9 13.5 - 08/15/2022 [facility] DEPT PAT H AND 16.5 7:17 AM LAB MEDICINE GM/DL HEATING WORKER Hematocrit 42.0 40 - 50 08/15/2022 [facility] DEPT PAT H AND % 7:17 AM LAB MEDICINE HEATING WORKER MCV 91.0 80 - 100 08/15/2022 [facility] DEPT PAT H AND FL 7:17 AM LAB MEDICINE HEATING WORKER MCH 30.1 26 - 34 08/15/2022 [facility] DEPT PAT H AND PG 7:17 AM LAB MEDICINE HEATING WORKER MCHC 33.1 32.0 - 08/15/2022 [facility] DEPT PAT H AND 36.0 7:17 AM LAB MEDICINE G/DL HEATING WORKER RDW 14.2 11 - 15 08/15/2022 [facility] DEPT PAT H AND % 7:17 AM LAB MEDICINE HEATING WORKER Platelet Count 243 150 - 08/15/2022 [facility] DEPT PATH AND 400 K/UL 7:17 AM LAB MEDICINE HEATING WORKER MPV 9.2 7 - 11 08/15/2022 [facility] DEPT PAT H AND FL 7:17 AM LAB MEDICINE HEATING WORKER Anatomical Location / Laterality Collection Method / Volume Juvenal ection Time Received Time Specimen (Source) BLOOD / Unknown 08/15/2022 6:11 AM HEATING WORKER 08/15/19 6:12 AM HEATING WORKER Angeline Shahid LABORATORY ORDERABLES Aida SAENZ City/State/ZIP Code Phone Number [place] [address] [facility] DEPT PATH AND [address] [facility] LAB MEDICINE * (ABNORMAL) BASIC METABOLIC PANEL (08/15/2022 6:11 AM HEATING WORKER) Pathologist Signature Component Value Ref Test Method Analysis Performed A t Range Time Sodium 142 137 - 08/15/2022 [facility] DEPT PAT H AND 147 7:43 AM LAB MEDICINE MMOL/L HEATING WORKER Potassium 4.0 3.5 - 08/15/2022 [facility] DEPT PAT H AND 5.1 7:43 AM LAB MEDICINE MMOL/L HEATING WORKER Chloride 106 98 - 110 08/15/2022 [facility] DEPT PAT H AND MMOL/L 7:43 AM LAB MEDICINE HEATING WORKER CO2 27 21 - 30 08/15/2022 [facility] DEPT PAT H AND MMOL/L 7:43 AM LAB MEDICINE HEATING WORKER Anion Gap 9 3 - 12 08/15/2022 [facility] DEPT PAT H AND 7:43 AM LAB MEDICINE HEATING WORKER Glucose 85 70 - 100 08/15/2022 [facility] DEPT PAT H AND MG/DL 7:43 AM LAB MEDICINE HEATING WORKER Blood Urea Nitrogen 34 (H) 7 - 25 08/15/2022 [facility] DEPT PATH AND MG/DL 7:43 AM LAB MEDICINE HEATING WORKER Creatinine 1.77 (H) 0.4 - 08/15/2022 [facility] DEPT PAT H AND 1.24 7:43 AM LAB MEDICINE MG/DL HEATING WORKER Calcium 9.3 8.5 - 08/15/2022 [facility] DEPT PAT H AND 10.6 7:43 AM LAB MEDICINE MG/DL HEATING WORKER eGFR 39 (L) >60 08/15/2022 [facility] DEPT PAT H AND mL/min 7:43 AM LAB MEDICINE HEATING WORKER Comment: eGFR calculated using the CKD-EPIcr_R equation Anatomical Location / Laterality Collection Method / Volume Juvenal ection Time Received Time Specimen (Source) BLOOD / Unknown 08/15/2022 6:11 AM HEATING WORKER 08/15/19 6:12 AM HEATING WORKER Ankush Willis DO LABORATORY ORDERABLES City/State/ZIP Code Phone Number [place] [address] [facility] DEPT PATH AND [address] [facility] LAB MEDICINE * (ABNORMAL) CBC AND DIFF (08/14/2022 6:39 AM HEATING WORKER) Pathologist Signature Component Value Ref Test Method Analysis Performed A t Range Time White Blood Cells 9.3 4.5 - 08/14/2022 [facility] DE PT PATH AND 11.0 7:24 AM LAB MEDICINE K/UL HEATING WORKER RBC 4.63 4.4 - 08/14/2022 [facility] DEPT PAT H AND 5.5 M/UL 7:24 AM LAB MEDICINE HEATING WORKER Hemoglobin 14.1 13.5 - 08/14/2022 [facility] DEPT PAT H AND 16.5 7:24 AM LAB MEDICINE GM/DL HEATING WORKER Hematocrit 42.2 40 - 50 08/14/2022 [facility] DEPT PAT H AND % 7:24 AM LAB MEDICINE HEATING WORKER MCV 91.1 80 - 100 08/14/2022 [facility] DEPT PAT H AND FL 7:24 AM LAB MEDICINE HEATING WORKER MCH 30.3 26 - 34 08/14/2022 [facility] DEPT PAT H AND PG 7:24 AM LAB MEDICINE HEATING WORKER MCHC 33.3 32.0 - 08/14/2022 [facility] DEPT PAT H AND 36.0 7:24 AM LAB MEDICINE G/DL HEATING WORKER RDW 14.2 11 - 15 08/14/2022 [facility] DEPT PAT H AND % 7:24 AM LAB MEDICINE HEATING WORKER Platelet Count 264 150 - 08/14/2022 [facility] DEPT PATH AND 400 K/UL 7:24 AM LAB MEDICINE HEATING WORKER MPV 9.5 7 - 11 08/14/2022 [facility] DEPT PAT H AND FL 7:24 AM LAB MEDICINE HEATING WORKER Neutrophils 71 41 - 77 08/14/2022 [facility] DEPT PAT H AND % 7:24 AM LAB MEDICINE HEATING WORKER Lymphocytes 11 (L) 24 - 44 08/14/2022 [facility] DEPT PAT H AND % 7:24 AM LAB MEDICINE HEATING WORKER Monocytes 12 4 - 12 % 08/14/2022 [facility] DEPT PAT H AND 7:24 AM LAB MEDICINE HEATING WORKER Eosinophils 6 (H) 0 - 5 % 08/14/2022 [facility] DEPT PAT H AND 7:24 AM LAB MEDICINE HEATING WORKER Basophils 0 0 - 2 % 08/14/2022 [facility] DEPT PAT H AND 7:24 AM LAB MEDICINE HEATING WORKER Absolute Neutrophil 6.61 1.8 - 08/14/2022 [facility] DEPT PATH AND Count 7.0 K/UL 7:24 AM LAB MEDICINE HEATING WORKER Absolute Lymph Count 0.97 (L) 1.0 - 08/14/2022 [facility] DEPT PATH AND 4.8 K/UL 7:24 AM LAB MEDICINE HEATING WORKER Absolute Monocyte 1.13 (H) 0 - 0.80 08/14/2022 [facility] DE PT PATH AND Count K/UL 7:24 AM LAB MEDICINE HEATING WORKER Absolute Eosinophil 0.51 (H) 0 - 0.45 08/14/2022 [facility] DEPT PATH AND Count K/UL 7:24 AM LAB MEDICINE HEATING WORKER Absolute Basophil 0.04 0 - 0.20 08/14/2022 [facility] DE PT PATH AND Count K/UL 7:24 AM LAB MEDICINE HEATING WORKER Anatomical Location / Laterality Collection Method / Volume Juvenal ection Time Received Time Specimen (Source) BLOOD / Unknown 08/14/2022 6:39 AM HEATING WORKER 08/14/19 6:40 AM HEATING WORKER Ankush Willis DO LABORATORY ORDERABLES City/State/ZIP Code Phone Number [place] [address] [facility] DEPT PATH AND [address] LAB MEDICINE * (ABNORMAL) BASIC METABOLIC PANEL (08/14/2022 6:39 AM HEATING WORKER) Pathologist Signature Component Value Ref Test Method Analysis Performed A t Range Time Sodium 141 137 - 08/14/2022 [facility] DEPT PAT H AND 147 7:49 AM LAB MEDICINE MMOL/L HEATING WORKER Potassium 4.1 3.5 - 08/14/2022 [facility] DEPT PAT H AND 5.1 7:49 AM LAB MEDICINE MMOL/L HEATING WORKER Chloride 106 98 - 110 08/14/2022 [facility] DEPT PAT H AND MMOL/L 7:49 AM LAB MEDICINE HEATING WORKER CO2 26 21 - 30 08/14/2022 [facility] DEPT PAT H AND MMOL/L 7:49 AM LAB MEDICINE HEATING WORKER Anion Gap 9 3 - 12 08/14/2022 [facility] DEPT PAT H AND 7:49 AM LAB MEDICINE HEATING WORKER Glucose 115 (H) 70 - 100 08/14/2022 [facility] DEPT PAT H AND MG/DL 7:49 AM LAB MEDICINE HEATING WORKER Blood Urea Nitrogen 33 (H) 7 - 25 08/14/2022 [facility] DEPT PATH AND MG/DL 7:49 AM LAB MEDICINE HEATING WORKER Creatinine 1.64 (H) 0.4 - 08/14/2022 [facility] DEPT PAT H AND 1.24 7:49 AM LAB MEDICINE MG/DL HEATING WORKER Calcium 9.2 8.5 - 08/14/2022 [facility] DEPT PAT H AND 10.6 7:49 AM LAB MEDICINE MG/DL HEATING WORKER eGFR 43 (L) >60 08/14/2022 [facility] DEPT PAT H AND mL/min 7:49 AM LAB MEDICINE HEATING WORKER Comment: eGFR calculated using the CKD-EPIcr_R equation Anatomical Location / Laterality Collection Method / Volume Juvenal ection Time Received Time Specimen (Source) BLOOD / Unknown 08/14/2022 6:39 AM HEATING WORKER 08/14/19 6:40 AM HEATING WORKER Ankush Willis DO LABORATORY ORDERABLES City/State/ZIP Code Phone Number [place] [address] [facility] DEPT PATH AND [address] LAB MEDICINE * HEX LUPUS ANTICOAGULANT (08/13/2022 2:49 PM HEATING WORKER) Pathologist Signature Component Value Ref Test Method Analysis Performed A t Range Time Hexagonal Lupus 1 08/20/2022 [facility] Anticoagulant 7:09 PM HEATING WORKER Comment: Unit: sec This value is NEGATIVE. This is a qualitative assay and is therefore reported as positive for lupus anticoagulant or negative. The quantitative value is provided as an aid in diagnosis. Reference Range: 0 - 11 Test Performed by: [facility] [id number] [address] Anatomical Location / Laterality Collection Method / Volume Juvenal ection Time Received Time Specimen (Source) BLOOD / Unknown 08/13/2022 2:49 PM HEATING WORKER 08/13/19 2:50 PM HEATING WORKER Ankush Willis DO LABORATORY ORDERABLES City/State/ZIP Code Phone Number Performing Address Organization [facility] See results for address. * CARDIOLIPIN AB IGG/IGM (08/13/2022 2:49 PM HEATING WORKER) Pathologist Signature Component Value Ref Test Method Analysis Performed A t Range Time Cardiolipin, IgG <1.6 <20.0 08/14/2022 [facility] DEP T PATH AND GPL/ML 10:08 AM LAB MEDICINE HEATING WORKER Cardiolipin, IgM 0.2 <20.0 08/14/2022 [facility] DEP T PATH AND MPL/ML 10:08 AM LAB MEDICINE HEATING WORKER Anatomical Location / Laterality Collection Method / Volume Juvenal ection Time Received Time Specimen (Source) BLOOD / Unknown 08/13/2022 2:49 PM HEATING WORKER 08/13/19 2:50 PM HEATING WORKER Ankush Willis DO LABORATORY ORDERABLES [facility]/State/ZIP Code Phone Number [place] [address] [facility] DEPT PATH AND [address] [facility] LAB MEDICINE * BETA 2 GLYCOPROTEIN 1 AB, IGM (08/13/2022 2:49 PM HEATING WORKER) Pathologist Signature Component Value Ref Test Method Analysis Performed A t Range Time BETA-2 GLY 1 AB IGM 0.2 <20.0 08/14/2022 [facility] DEPT PATH AND U/mL 10:08 AM LAB MEDICINE HEATING WORKER Anatomical Location / Laterality Collection Method / Volume Juvenal ection Time Received Time Specimen (Source) BLOOD / Unknown 08/13/2022 2:49 PM HEATING WORKER 08/13/19 2:50 PM HEATING WORKER Ankush Willis DO LABORATORY ORDERABLES [facility]/ZIP Code Phone Number [place]forming [place] [address] [facility] DEPT PATH AND [address] [facility] LAB MEDICINE * BETA 2 GLYCOPROTEIN 1 AB, IGG (08/13/2022 2:49 PM HEATING WORKER) Pathologist Signature Component Value Ref Test Method Analysis Performed A t Range Time BETA-2 GLY 1 AB ICG <1.4 <20.0 08/14/2022 [facility] DEPT PATH AND U/mL 10:08 AM LAB MEDICINE HEATING WORKER Anatomical Location / Laterality Collection Method / Volume Juvenal ection Time Received Time Specimen (Source) BLOOD / Unknown 08/13/2022 2:49 PM HEATING WORKER 08/13/19 2:50 PM HEATING WORKER Ankush Willis [email or web address] LABORATORY ORDERABLES City/State/ZIP Code Phone Number [place] [address] [facility] DEPT PATH AND [address] [facility] LAB MEDICINE * PHOSPHORUS (08/13/2022 3:12 AM HEATING WORKER) Pathologist Signature Component Value Ref Test Method Analysis Performed A t Range Time Phosphorus 2.9 2.0 - 08/13/2022 [facility] DEPT PAT H AND 4.5 4:06 AM LAB MEDICINE MG/DL HEATING WORKER Anatomical Location / Laterality Collection Method / Volume Juvenal ection Time Received Time Specimen (Source) BLOOD / Unknown 08/13/2022 3:12 AM HEATING WORKER 08/13/19 3:33 AM HEATING WORKER Bonnie Cisneros [place] LABORATORY ORDERABLES [employer] City/State/ZIP Code Phone Number [place] [address] [facility] DEPT PATH AND [address] [facility]. LAB MEDICINE * MAGNESIUM (08/13/2022 3:12 AM HEATING WORKER) Pathologist Signature Component Value Ref Test Method Analysis Performed A t Range Time Magnesium 2.0 1.6 - 08/13/2022 [facility] DEPT PAT H AND 2.6 4:06 AM LAB MEDICINE mg/dL HEATING WORKER Anatomical Location / Laterality Collection Method / Volume Juvenal ection Time Received Time Specimen (Source) BLOOD / Unknown 08/13/2022 3:12 AM HEATING WORKER 08/13/19 3:33 AM HEATING WORKER Bonnie [place] LABORATORY ORDERABLES [employer] City/State/ZIP Code Phone Number [place]forming [place] [address] [facility] DEPT PATH AND [address] [facility] LAB MEDICINE * (ABNORMAL) CBC AND DIFF (08/13/2022 3:12 AM HEATING WORKER) Pathologist Signature Component Value Ref Test Method Analysis Performed A t Range Time White Blood Cells 10.4 4.5 - 08/13/2022 [facility] DE PT PATH AND 11.0 3:43 AM LAB MEDICINE K/UL HEATING WORKER RBC 5.11 4.4 - 08/13/2022 [facility] DEPT PAT H AND 5.5 M/UL 3:43 AM LAB MEDICINE HEATING WORKER Hemoglobin 15.4 13.5 - 08/13/2022 [facility] DEPT PAT H AND 16.5 3:43 AM LAB MEDICINE GM/DL HEATING WORKER Hematocrit 46.5 40 - 50 08/13/2022 [facility] DEPT PAT H AND % 3:43 AM LAB MEDICINE HEATING WORKER MCV 91.0 80 - 100 08/13/2022 [facility] DEPT PAT H AND FL 3:43 AM LAB MEDICINE HEATING WORKER MCH 30.2 26 - 34 08/13/2022 [facility] DEPT PAT H AND PG 3:43 AM LAB MEDICINE HEATING WORKER MCHC 33.2 32.0 - 08/13/2022 [facility] DEPT PAT H AND 36.0 3:43 AM LAB MEDICINE G/DL HEATING WORKER RDW 14.4 11 - 15 08/13/2022 [facility] DEPT PAT H AND % 3:43 AM LAB MEDICINE HEATING WORKER Platelet Count 254 150 - 08/13/2022 [facility] DEPT PATH AND 400 K/UL 3:43 AM LAB MEDICINE HEATING WORKER MPV 9.1 7 - 11 08/13/2022 [facility] DEPT PAT H AND FL 3:43 AM LAB MEDICINE HEATING WORKER Neutrophils 71 41 - 77 08/13/2022 [facility] DEPT PAT H AND % 3:43 AM LAB MEDICINE HEATING WORKER Lymphocytes 10 (L) 24 - 44 08/13/2022 [facility] DEPT PAT H AND % 3:43 AM LAB MEDICINE HEATING WORKER Monocytes 11 4 - 12 % 08/13/2022 [facility] DEPT PAT H AND 3:43 AM LAB MEDICINE HEATING WORKER Eosinophils 7 (H) 0 - 5 % 08/13/2022 [facility] DEPT PAT H AND 3:43 AM LAB MEDICINE HEATING WORKER Basophils 1 0 - 2 % 08/13/2022 [facility] DEPT PAT H AND 3:43 AM LAB MEDICINE HEATING WORKER Absolute Neutrophil 7.40 (H) 1.8 - 08/13/2022 [facility] DEPT PATH AND Count 7.0 K/UL 3:43 AM LAB MEDICINE HEATING WORKER Absolute Lymph Count 1.07 1.0 - 08/13/2022 [facility] DEPT PATH AND 4.8 K/UL 3:43 AM LAB MEDICINE HEATING WORKER Absolute Monocyte 1.13 (H) 0 - 0.80 08/13/2022 [facility] DE PT PATH AND Count K/UL 3:43 AM LAB MEDICINE HEATING WORKER Absolute Eosinophil 0.69 (H) 0 - 0.45 08/13/2022 [facility] DEPT PATH AND Count K/UL 3:43 AM LAB MEDICINE HEATING WORKER Absolute Basophil 0.07 0 - 0.20 08/13/2022 [facility] DE PT PATH AND Count K/UL 3:43 AM LAB MEDICINE HEATING WORKER Anatomical Location / Laterality Collection Method / Volume Juvenal ection Time Received Time Specimen (Source) BLOOD / Unknown 08/13/2022 3:12 AM HEATING WORKER 08/13/19 3:33 AM HEATING WORKER Bonnie Reese LABORATORY ORDERABLES [employer] City/State/ZIP Code Phone Number [place] [address] [facility] DEPT PATH AND [address] [facility] LAB MEDICINE * (ABNORMAL) BASIC METABOLIC PANEL (08/13/2022 3:12 AM HEATING WORKER) Pathologist Signature Component Value Ref Test Method Analysis Performed A t Range Time Sodium 140 137 - 08/13/2022 [facility] DEPT PAT H AND 147 4:06 AM LAB MEDICINE MMOL/L HEATING WORKER Potassium 4.1 3.5 - 08/13/2022 [facility] DEPT PAT H AND 5.1 4:06 AM LAB MEDICINE MMOL/L HEATING WORKER Chloride 108 98 - 110 08/13/2022 [facility] DEPT PAT H AND MMOL/L 4:06 AM LAB MEDICINE HEATING WORKER CO2 26 21 - 30 08/13/2022 [facility] DEPT PAT H AND MMOL/L 4:06 AM LAB MEDICINE HEATING WORKER Anion Gap 6 3 - 12 08/13/2022 [facility] DEPT PAT H AND 4:06 AM LAB MEDICINE HEATING WORKER Glucose 132 (H) 70 - 100 08/13/2022 [facility] DEPT PAT H AND MG/DL 4:06 AM LAB MEDICINE HEATING WORKER Blood Urea Nitrogen 30 (H) 7 - 25 08/13/2022 [facility] DEPT PATH AND MG/DL 4:06 AM LAB MEDICINE HEATING WORKER Creatinine 1.81 (H) 0.4 - 08/13/2022 [facility] DEPT PAT H AND 1.24 4:06 AM LAB MEDICINE MG/DL HEATING WORKER Calcium 9.1 8.5 - 08/13/2022 [facility] DEPT PAT H AND 10.6 4:06 AM LAB MEDICINE MG/DL HEATING WORKER eGFR 38 (L) >60 08/13/2022 [facility] DEPT PAT H AND mL/min 4:06 AM LAB MEDICINE HEATING WORKER Comment: eGFR calculated using the CKD-EPIcr_R equation Anatomical Location / Laterality Collection Method / Volume Juvenal ection Time Received Time Specimen (Source) BLOOD / Unknown 08/13/2022 3:12 AM HEATING WORKER 08/13/19 23 3:33 AM HEATING WORKER Bonnie Reese LABORATORY ORDERABLES [employer] City/State/ZIP Code Phone Number [place] [address] [facility] DEPT PATH AND [address] [facility] LAB MEDICINE * IONIZED CALCIUM (08/13/2022 3:12 AM HEATING WORKER) Pathologist Signature Component Value Ref Test Method Analysis Performed A t Range Time Ionized Calcium 1.20 1.0 - 08/13/2022 [facility] DEPT PATH AND 1.3 3:36 AM LAB MEDICINE MMOL/L HEATING WORKER Anatomical Location / Laterality Collection Method / Volume Juvenal ection Time Received Time Specimen (Source) BLOOD / Unknown 08/13/2022 3:12 AM HEATING WORKER 08/13/19 3:27 AM HEATING WORKER Isabel Lobo LABORATORY ORDERABLES [employer]IAN [employer] [facility]/State/ZIP Code Phone Number Performing [place] [address] [facility] DEPT PATH AND [address] LAB MEDICINE * IONIZED CALCIUM (08/12/2022 2:17 AM HEATING WORKER) Pathologist Signature Component Value Ref Test Method Analysis Performed A t Range Time Ionized Calcium 1.02 1.0 - 08/12/2022 [facility] DEPT PATH AND 1.3 2:55 AM LAB MEDICINE MMOL/L HEATING WORKER Anatomical Location / Laterality Collection Method / Volume Juvenal ection Time Received Time Specimen (Source) BLOOD / Unknown 08/12/2022 2:17 AM HEATING WORKER 08/12/19 2:53 AM HEATING WORKER Isabel Lobo LABORATORY ORDERABLES [employer] [facility]/ZIP Code Phone Number Performing [place] [address] [facility] DEPT PATH AND [address] [facility] LAB MEDICINE * PHOSPHORUS (08/12/2022 2:17 AM HEATING WORKER) Pathologist Signature Component Value Ref Test Method Analysis Performed A t Range Time Phosphorus 2.3 2.0 - 08/12/2022 [facility] DEPT PAT H AND 4.5 3:21 AM LAB MEDICINE MG/DL HEATING WORKER Anatomical Location / Laterality Collection Method / Volume Juvenal ection Time Received Time Specimen (Source) BLOOD / Unknown 08/12/2022 2:17 AM HEATING WORKER 08/12/19 23 2:37 AM HEATING WORKER Yousuf Solis LABORATORY ORDERABLES Luis TODD [facility]/State/ZIP Code Phone Number Performing [place] [address] [facility] DEPT PATH AND [employer] [facility] LAB MEDICINE * MAGNESIUM (08/12/2022 2:17 AM HEATING WORKER) Pathologist Signature Component Value Ref Test Method Analysis Performed A t Range Time Magnesium 2.0 1.6 - 08/12/2022 [facility] DEPT PAT H AND 2.6 3:21 AM LAB MEDICINE mg/dL HEATING WORKER Anatomical Location / Laterality Collection Method / Volume Juvenal ection Time Received Time Specimen (Source) BLOOD / Unknown 08/12/2022 2:17 AM HEATING WORKER 08/12/19 2:37 AM HEATING WORKER Yousuf Solis LABORATORY ORDERABLES Luis TODD [facility]/State/ZIP Code Phone Number Performing [place] [address] [facility] DEPT PATH AND [address] LAB MEDICINE * (ABNORMAL) CBC AND DIFF (08/12/2022 2:17 AM HEATING WORKER) Pathologist Signature Component Value Ref Test Method Analysis Performed A t Range Time White Blood Cells 10.6 4.5 - 08/12/2022 [facility] PT PATH AND 11.0 3:14 AM LAB MEDICINE K/UL HEATING WORKER RBC 4.67 4.4 - 08/12/2022 [facility] DEPT PAT H AND 5.5 M/UL 3:14 AM LAB MEDICINE HEATING WORKER Hemoglobin 14.0 13.5 - 08/12/2022 [facility] DEPT PAT H AND 16.5 3:14 AM LAB MEDICINE GM/DL HEATING WORKER Hematocrit 42.6 40 - 50 08/12/2022 [facility] DEPT PAT H AND % 3:14 AM LAB MEDICINE HEATING WORKER MCV 91.4 80 - 100 08/12/2022 [facility] DEPT PAT H AND FL 3:14 AM LAB MEDICINE HEATING WORKER MCH 29.9 26 - 34 08/12/2022 [facility] DEPT PAT H AND PG 3:14 AM LAB MEDICINE HEATING WORKER MCHC 32.7 32.0 - 08/12/2022 [facility] DEPT PAT H AND 36.0 3:14 AM LAB MEDICINE G/DL HEATING WORKER RDW 14.2 11 - 15 08/12/2022 [facility] DEPT PAT H AND % 3:14 AM LAB MEDICINE HEATING WORKER Platelet Count 231 150 - [facility] K/UL 3:14 AM LAB MEDICINE HEATING WORKER MPV 9.1 7 - 11 08/12/2022 [facility] DEPT PAT H AND FL 3:14 AM LAB MEDICINE HEATING WORKER Neutrophils 71 41 - 77 08/12/2022 [facility] DEPT PAT H AND % 3:14 AM LAB MEDICINE HEATING WORKER Lymphocytes 11 (L) 24 - 44 08/12/2022 [facility] DEPT PAT H AND % 3:14 AM LAB MEDICINE HEATING WORKER Monocytes 13 (H) 4 - 12 % 08/12/2022 [facility] DEPT PAT H AND 3:14 AM LAB MEDICINE HEATING WORKER Eosinophils 5 0 - 5 % 08/12/2022 [facility] DEPT PAT H AND 3:14 AM LAB MEDICINE HEATING WORKER Basophils 0 0 - 2 % 08/12/2022 [facility] DEPT PAT H AND 3:14 AM LAB MEDICINE HEATING WORKER Absolute Neutrophil 7.53 (H) 1.8 - 08/12/2022 [facility] DEPT PATH AND Count 7.0 K/UL 3:14 AM LAB MEDICINE HEATING WORKER Absolute Lymph Count 1.14 1.0 - 08/12/2022 [facility] DEPT PATH AND 4.8 K/UL 3:14 AM LAB MEDICINE HEATING WORKER Absolute Monocyte 1.37 (H) 0 - 0.80 08/12/2022 [facility] DE PT PATH AND Count K/UL 3:14 AM LAB MEDICINE HEATING WORKER Absolute Eosinophil 0.57 (H) 0 - 0.45 08/12/2022 [facility] DEPT PATH AND Count K/UL 3:14 AM LAB MEDICINE HEATING WORKER Absolute Basophil 0.03 0 - 0.20 08/12/2022 [facility] DE PT PATH AND Count K/UL 3:14 AM LAB MEDICINE HEATING WORKER Anatomical Location / Laterality Collection Method / Volume Juvenal ection Time Received Time Specimen (Source) BLOOD / Unknown 08/12/2022 2:17 AM HEATING WORKER 08/12/19 2:37 AM HEATING WORKER Yousuf Solis LABORATORY ORDERABLES Luis TODD City/State/ZIP Code Phone Number Performing [place] [address] [facility] DEPT PATH AND [address] [facility] LAB MEDICINE * (ABNORMAL) BASIC METABOLIC PANEL (08/12/2022 2:17 AM HEATING WORKER) Pathologist Signature Component Value Ref Test Method Analysis Performed A t Range Time Sodium 142 137 - 08/12/2022 [facility] DEPT PAT H AND 147 3:21 AM LAB MEDICINE MMOL/L HEATING WORKER Potassium 4.1 3.5 - 08/12/2022 [facility] DEPT PAT H AND 5.1 3:21 AM LAB MEDICINE MMOL/L HEATING WORKER Chloride 109 98 - 110 08/12/2022 [facility] DEPT PAT H AND MMOL/L 3:21 AM LAB MEDICINE HEATING WORKER CO2 23 21 - 30 08/12/2022 [facility] DEPT PAT H AND MMOL/L 3:21 AM LAB MEDICINE HEATING WORKER Anion Gap 10 3 - 12 08/12/2022 [facility] DEPT PAT H AND 3:21 AM LAB MEDICINE HEATING WORKER Glucose 151 (H) 70 - 100 08/12/2022 [facility] DEPT PAT H AND MG/DL 3:21 AM LAB MEDICINE HEATING WORKER Blood Urea Nitrogen 29 (H) 7 - 25 08/12/2022 [facility] DEPT PATH AND MG/DL 3:21 AM LAB MEDICINE HEATING WORKER Creatinine 1.86 (H) 0.4 - 08/12/2022 [facility] DEPT PAT H AND 1.24 3:21 AM LAB MEDICINE MG/DL HEATING WORKER Calcium 8.5 8.5 - 08/12/2022 [facility] DEPT PAT H AND 10.6 3:21 AM LAB MEDICINE MG/DL HEATING WORKER eGFR 37 (L) >60 08/12/2022 [facility] DEPT PAT H AND mL/min 3:21 AM LAB MEDICINE HEATING WORKER Comment: eGFR calculated using the CKD-EPIcr_R equation Anatomical Location / Laterality Collection Method / Volume Juvenal ection Time Received Time Specimen (Source) BLOOD / Unknown 08/12/2022 2:17 AM HEATING WORKER 08/12/19 2:37 AM HEATING WORKER Simranjose Will LABORATORY ORDERABLES Luis TODD City/State/ZIP Code Phone Number Performing [place] [address] [facility] DEPT PATH AND [address] [facility] LAB MEDICINE * CT HEAD WO CONTRAST (08/11/2022 11:37 PM HEATING WORKER) Modality Anatomical Region Laterality Computed Tomography Head Anatomical Location / Laterality Collection Method / Volume Juvenal ection Time Received Time Specimen (Source) 08/12/2022 8:34 AM HEATING WORKER Impressions 08/12/2022 9:08 AM HEATING WORKER 1. Further evolution of the recent [...] 08/12/2022 8:34 AM. Narrative 08/12/2022 9:08 AM HEATING WORKER EXAM: CT HEAD HISTORY: Recent stroke. [...] * CT NECK W/CONTRAST (08/11/2022 4:34 AM HEATING WORKER) Modality Anatomical Region Laterality Computed Tomography HEAD/NECK Anatomical Location / Laterality Collection Method / Volume Juvenal ection Time Received Time Specimen (Source) 08/11/2022 9:58 AM HEATING WORKER Impressions 08/11/2022 11:11 AM HEATING WORKER 1. Retropharyngeal course of the right [...] 08/11/2022 9:58 AM. Narrative 08/11/2022 11:[address] NECK WITH CONTRAST HISTORY: 77 [...] AM. Hernandez Paniagua DO CT ORDERABLES * IONIZED CALCIUM (08/11/2022 2:55 AM HEATING WORKER) Pathologist Signature Component Value Ref Test Method Analysis Performed A t Range Time Ionized Calcium 1.13 1.0 - 08/11/2022 [facility] DEPT PATH AND 1.3 3:11 AM LAB MEDICINE MMOL/L HEATING WORKER Anatomical Location / Laterality Collection Method / Volume Juvenal ection Time Received Time Specimen (Source) BLOOD / Unknown 08/11/2022 2:55 AM HEATING WORKER 08/11/19 23 3:07 AM HEATING WORKER Isabel Lobo LABORATORY ORDERABLES E[employer] City/State/ZIP Code Phone Number [place]forming [place] [address] [facility] DEPT PATH AND [address] LAB MEDICINE * PHOSPHORUS (08/11/2022 2:55 AM HEATING WORKER) Pathologist Signature Component Value Ref Test Method Analysis Performed A t Range Time Phosphorus 2.4 2.0 - 08/11/2022 [facility] DEPT PAT H AND 4.5 3:59 AM LAB MEDICINE MG/DL HEATING WORKER Anatomical Location / Laterality Collection Method / Volume Juvenal ection Time Received Time Specimen (Source) BLOOD / Unknown 08/11/2022 2:55 AM HEATING WORKER 08/11/19 23 3:08 AM HEATING WORKER Yousuf Solis LABORATORY ORDERABLES Luis TODD [facility]/ZIP Code Phone Number [place]forming [place] [address] [facility] DEPT PATH AND [address] [facility] LAB MEDICINE * MAGNESIUM (08/11/2022 2:55 AM HEATING WORKER) Pathologist Signature Component Value Ref Test Method Analysis Performed A t Range Time Magnesium 2.1 1.6 - 08/11/2022 [facility] DEPT PAT H AND 2.6 3:59 AM LAB MEDICINE mg/dL HEATING WORKER Anatomical Location / Laterality Collection Method / Volume Juvenal ection Time Received Time Specimen (Source) BLOOD / Unknown 08/11/2022 2:55 AM HEATING WORKER 08/11/19 3:08 AM HEATING WORKER Yousuf Solis LABORATORY ORDERABLES Luis TODD [facility]/ZIP Code Phone Number Performing [place] [address] [facility] DEPT PATH AND [address] [facility] LAB MEDICINE * (ABNORMAL) CBC AND DIFF (08/11/2022 2:55 AM HEATING WORKER) Pathologist Signature Component Value Ref Test Method Analysis Performed A t Range Time White Blood Cells 10.2 4.5 - 08/11/2022 [facility] DE PT PATH AND 11.0 3:32 AM LAB MEDICINE K/UL HEATING WORKER RBC 4.66 4.4 - 08/11/2022 [facility] DEPT PAT H AND 5.5 M/UL 3:32 AM LAB MEDICINE HEATING WORKER Hemoglobin 14.0 13.5 - 08/11/2022 [facility] DEPT PAT H AND 16.5 3:32 AM LAB MEDICINE GM/DL HEATING WORKER Hematocrit 42.6 40 - 50 08/11/2022 [facility] DEPT PAT H AND % 3:32 AM LAB MEDICINE HEATING WORKER MCV 91.5 80 - 100 08/11/2022 [facility] DEPT PAT H AND FL 3:32 AM LAB MEDICINE HEATING WORKER MCH 30.0 26 - 34 08/11/2022 [facility] DEPT PAT H AND PG 3:32 AM LAB MEDICINE HEATING WORKER MCHC 32.8 32.0 - 08/11/2022 [facility] DEPT PAT H AND 36.0 3:32 AM LAB MEDICINE G/DL HEATING WORKER RDW 14.5 11 - 15 08/11/2022 [facility] DEPT PAT H AND % 3:32 AM LAB MEDICINE HEATING WORKER Platelet Count 255 150 - 08/11/2022 [facility] DEPT PATH AND 400 K/UL 3:32 AM LAB MEDICINE HEATING WORKER MPV 9.1 7 - 11 08/11/2022 [facility] DEPT PAT H AND FL 3:32 AM LAB MEDICINE HEATING WORKER Neutrophils 77 41 - 77 08/11/2022 [facility] DEPT PAT H AND % 3:32 AM LAB MEDICINE HEATING WORKER Lymphocytes 9 (L) 24 - 44 08/11/2022 [facility] DEPT PAT H AND % 3:32 AM LAB MEDICINE HEATING WORKER Monocytes 12 4 - 12 % 08/11/2022 [facility] DEPT PAT H AND 3:32 AM LAB MEDICINE HEATING WORKER Eosinophils 1 0 - 5 % 08/11/2022 [facility] DEPT PAT H AND 3:32 AM LAB MEDICINE HEATING WORKER Basophils 1 0 - 2 % 08/11/2022 [facility] DEPT PAT H AND 3:32 AM LAB MEDICINE HEATING WORKER Absolute Neutrophil 7.94 (H) 1.8 - 08/11/2022 [facility] DEPT PATH AND Count 7.0 K/UL 3:32 AM LAB MEDICINE HEATING WORKER Absolute Lymph Count 0.92 (L) 1.0 - 08/11/2022 [facility] DEPT PATH AND 4.8 K/UL 3:32 AM LAB MEDICINE HEATING WORKER Absolute Monocyte 1.18 (H) 0 - 0.80 08/11/2022 [facility] DE PT PATH AND Count K/UL 3:32 AM LAB MEDICINE HEATING WORKER Absolute Eosinophil 0.13 0 - 0.45 08/11/2022 [facility] DEPT PATH AND Count K/UL 3:32 AM LAB MEDICINE HEATING WORKER Absolute Basophil 0.05 0 - 0.20 08/11/2022 [facility] DE PT PATH AND Count K/UL 3:32 AM LAB MEDICINE HEATING WORKER Anatomical Location / Laterality Collection Method / Volume Juvenal ection Time Received Time Specimen (Source) BLOOD / Unknown 08/11/2022 2:55 AM HEATING WORKER 08/11/19 23 3:08 AM HEATING WORKER Yousuf Solsi LABORATORY ORDERABLES Luis TODD City/State/ZIP Code Phone Number [place] [address] [facility] DEPT PATH AND [address] [facility] LAB MEDICINE * (ABNORMAL) BASIC METABOLIC PANEL (08/11/2022 2:55 AM HEATING WORKER) Pathologist Signature Component Value Ref Test Method Analysis Performed A t Range Time Sodium 141 137 - 08/11/2022 [facility] DEPT PAT H AND 147 3:59 AM LAB MEDICINE MMOL/L HEATING WORKER Potassium 4.0 3.5 - 08/11/2022 [facility] DEPT PAT H AND 5.1 3:59 AM LAB MEDICINE MMOL/L HEATING WORKER Chloride 109 98 - 110 08/11/2022 [facility] DEPT PAT H AND MMOL/L 3:59 AM LAB MEDICINE HEATING WORKER CO2 21 21 - 30 08/11/2022 [facility] DEPT PAT H AND MMOL/L 3:59 AM LAB MEDICINE HEATING WORKER Anion Gap 11 3 - 12 08/11/2022 [facility] DEPT PAT H AND 3:59 AM LAB MEDICINE HEATING WORKER Glucose 177 (H) 70 - 100 08/11/2022 [facility] DEPT PAT H AND MG/DL 3:59 AM LAB MEDICINE HEATING WORKER Blood Urea Nitrogen 28 (H) 7 - 25 08/11/2022 [facility] DEPT PATH AND MG/DL 3:59 AM LAB MEDICINE HEATING WORKER Creatinine 2.03 (H) 0.4 - 08/11/2022 [facility] DEPT PAT H AND 1.24 3:59 AM LAB MEDICINE MG/DL HEATING WORKER Calcium 8.4 (L) 8.5 - 08/11/2022 [facility] DEPT PAT H AND 10.6 3:59 AM LAB MEDICINE MG/DL HEATING WORKER eGFR 33 (L) >60 08/11/2022 [facility] DEPT PAT H AND mL/min 3:59 AM LAB MEDICINE HEATING WORKER Comment: eGFR calculated using the CKD-EPIcr_R equation Anatomical Location / Laterality Collection Method / Volume Juvenal ection Time Received Time Specimen (Source) BLOOD / Unknown 08/11/2022 2:55 AM HEATING WORKER 08/11/19 3:08 AM HEATING WORKER Yousuf Solis LABORATORY ORDERABLES Luis TODD City/State/ZIP Code Phone Number [place] [address] [facility] DEPT PATH AND [address] [facility]. LAB MEDICINE * CHEST SINGLE VIEW (08/11/2022 12:52 AM HEATING WORKER) Modality Anatomical Region Laterality Computed Radiography CHEST Anatomical Location / Laterality Collection Method / Volume Juvenal ection Time Received Time Specimen (Source) 08/11/2022 6:23 AM HEATING WORKER Impressions 08/11/2022 6:25 AM HEATING WORKER FINDINGS/IMPRESSION: Endotracheal tube has been removed. Enteric tube courses below the diaphragm and out of the [id number]. Loop recorder overlies the left chest. Persistent elevated left hemidiaphragm with left greater than right basilar atelectasis. No pleural effusion. Stable mediastinal contours and heart size. Median sternotomy and CABG. Finalized by Laureen Ricks M.D. on 08/11/2022 6:25 AM. Dictated by Laureen Ricks M.D. on 08/11/2022 6:23 AM. Narrative 08/11/2022 6:25 AM HEATING WORKER CHEST SINGLE VIEW INDICATION: fever COMPARISON STUDY: CT chest 08/10/2022 Procedure Note Laureen Ricks MD - 08/11/2022 CHEST SINGLE VIEW INDICATION: fever COMPARISON STUDY: CT chest 08/10/2022 IMPRESSION FINDINGS/IMPRESSION: Endotracheal tube has been removed. Enteric tube courses below the diaphragm and out of the [id number]. Loop recorder overlies the left chest. Persistent elevated left hemidiaphragm with left greater than right basilar atelectasis. No pleural effusion. Stable mediastinal contours and heart size. Median sternotomy and CABG. Finalized by Laureen Ricks M.D. on 08/11/2022 6:25 AM. Dictated by Laureen Ricks M.D. on 08/11/2022 6:23 AM. Phuong Vásquez DIAGNOSTIC IMAGING ORDERABL ES ELECTR[employer]IAN [employer] * LACTIC ACID(LACTATE) (08/10/2022 9:54 PM HEATING WORKER) Pathologist Signature Component Value Ref Test Method Analysis Performed A t Range Time Lactic Acid 1.2 0.5 - 08/10/2022 [facility] DEPT PAT H AND 2.0 10:37 PM LAB MEDICINE MMOL/L HEATING WORKER Anatomical Location / Laterality Collection Method / Volume Juvenal ection Time Received Time Specimen (Source) BLOOD / Unknown 08/10/2022 9:54 PM HEATING WORKER 08/10/19 10:00 PM HEATING WORKER Phuong Vásquez LABORATORY ORDERABLES E[employer] City/State/ZIP Code Phone Number [place] [address] [facility] DEPT PATH AND [address] LAB MEDICINE * CULTURE-URINE W/SENSITIVITY (08/10/2022 9:30 PM HEATING WORKER) Pathologist Signature Component Value Ref Test Method Analysis Performed A t Range Time Battery Name URINE [facility] DEPT PATH AND CULTURE LAB MEDICINE Report Status FINAL [facility] DEPT PATH AND 08/12/2022 LAB MEDICINE Specimen Description URINE [facility] DEPT PATH A ND [place] LAB MEDICINE Special Requests No special 08/11/2022 [facility] DEPT PA TH AND requests 6:28 PM LAB MEDICINE HEATING WORKER Culture NO GROWTH 08/12/2022 [facility] DEPT PATH AND 12:30 PM LAB MEDICINE HEATING WORKER Anatomical Location / Laterality Collection Method / Volume Juvenal ection Time Received Time Specimen (Source) MID-STREAM URINE SPECIMEN / Unknown 08/10/2022 9:30 PM HEATING WORKER 08/11/2022 6:27 PM HEATING WORKER Urine Hernandez Paniagua DO MICROBIOLOGY ORDERABLES City/State/ZIP Code Phone Number [place] [address] [facility] DEPT PATH AND [address] LAB MEDICINE * CLEAR TOP EXTRA URINE TUBE (08/10/2022 9:30 PM HEATING WORKER) Anatomical Location / Laterality Collection Method / Volume Juvenal ection Time Received Time Specimen (Source) URINE SPECIMEN / Unknown 08/10/2022 9:30 PM HEATING WORKER 08/11/2022 5:18 AM HEATING WORKER Phuonglucrecia Vásquez URINE ORDERABLES ELECTRICIAN [employer] [facility]/State/ZIP Code Phone Number [place] [address] [facility] [address] [facility] LAB [facility] * URINALYSIS MICROSCOPIC REFLEX TO CULTURE (08/10/2022 9:30 PM HEATING WORKER) Pathologist Signature Component Value Ref Test Method Analysis Performed A t Range Time WBCs,UA 20-50 0 - 2 08/11/2022 [facility] DEPT PAT H AND /HPF 6:24 AM LAB MEDICINE HEATING WORKER RBCs,UA PACKED 0 - 3 08/11/2022 [facility] DEPT PAT H AND /HPF 6:24 AM LAB MEDICINE HEATING WORKER Comment,UA Criteria for 08/11/2022 [facility] DEPT PATH AND reflex to 6:24 AM LAB MEDICINE culture are HEATING WORKER WBC>10, Positive Nitrite, and/or >=+1 leukocytes. If quantity is not sufficient, an addendum will follow. MucousUA TRACE 08/11/2022 [facility] DEPT PATH AND 6:24 AM LAB MEDICINE HEATING WORKER Squamous Epithelial 0-2 0 - 5 08/11/2022 [facility] DEPT PATH AND Cells 6:24 AM LAB MEDICINE HEATING WORKER Amorphous FEW 08/11/2022 [facility] DEPT PATH AND Sedimate,UA 6:24 AM LAB MEDICINE HEATING WORKER Anatomical Location / Laterality Collection Method / Volume Juvenal ection Time Received Time Specimen (Source) URINE SPECIMEN / Unknown 08/10/2022 9:30 PM HEATING WORKER 08/11/2022 5:18 AM HEATING WORKER Phuonglucrecia Vásquez URINE ORDERABLES ELECTRICIAN [employer] [facility]/ZIP Code Phone Number [place]forming [place] [address] [facility] DEPT PATH AND [address] [facility] LAB MEDICINE * (ABNORMAL) URINALYSIS DIPSTICK REFLEX TO CULTURE (08/10/2022 9:30 PM HEATING WORKER) Pathologist Signature Component Value Ref Test Method Analysis Performed A t Range Time Color,UA RED 08/11/2022 [facility] DEPT PATH AND 6:24 AM LAB MEDICINE HEATING WORKER Turbidity,UA 1+ (A) CLEAR-CL 08/11/2022 [facility] DEPT PA TH AND EAR 6:24 AM LAB MEDICINE HEATING WORKER Specific 1.028 1.005 - 08/11/2022 [facility] DEPT PAT H AND [place]-Urine 1.030 6:24 AM LAB MEDICINE HEATING WORKER Comment: NOTE NEW REFERENCE RANGES pH,UA 5.0 5.0 - 08/11/2022 [facility] DEPT PAT H AND 8.0 6:24 AM LAB MEDICINE HEATING WORKER Protein,UA 2+ (A) NEG-NEG 08/11/2022 [facility] DEPT PAT H AND 6:24 AM LAB MEDICINE HEATING WORKER Glucose,UA NEG NEG-NEG 08/11/2022 [facility] DEPT PAT H AND 6:24 AM LAB MEDICINE HEATING WORKER Ketones,UA NEG NEG-NEG 08/11/2022 [facility] DEPT PAT H AND 6:24 AM LAB MEDICINE HEATING WORKER Bilirubin,UA NEG NEG-NEG 08/11/2022 [facility] DEPT PA TH AND 6:24 AM LAB MEDICINE HEATING WORKER Blood,UA 2+ (A) NEG-NEG 08/11/2022 [facility] DEPT PAT H AND 6:24 AM LAB MEDICINE HEATING WORKER Urobilinogen,UA NORMAL NORM-NOR 08/11/2022 [facility] DEPT PATH AND MAL 6:24 AM LAB MEDICINE HEATING WORKER Nitrite,UA NEG NEG-NEG 08/11/2022 [facility] DEPT PAT H AND 6:24 AM LAB MEDICINE HEATING WORKER Leukocytes,UA 2+ (A) NEG-NEG 08/11/2022 [facility] DEPT P ATH AND 6:24 AM LAB MEDICINE HEATING WORKER Urine Ascorbic Acid, NEG NEG-NEG 08/11/2022 [facility] DEPT PATH AND UA 6:24 AM LAB MEDICINE HEATING WORKER Anatomical Location / Laterality Collection Method / Volume Juvenal ection Time Received Time Specimen (Source) URINE SPECIMEN / Unknown 08/10/2022 9:30 PM HEATING WORKER 08/11/2022 5:18 AM HEATING WORKER Phuong Vásquez URINE ORDERABLES E[employer]IAN [employer] City/State/ZIP Code Phone Number [place] [address] [facility] DEPT PATH AND [address] [facility] LAB MEDICINE * GRAM STAIN (08/10/2022 9:30 PM HEATING WORKER) Pathologist Signature Component Value Ref Test Method Analysis Performed A t Range Time Battery Name GRAM STAIN [facility] DEPT PATH AND LAB MEDICINE Report Status FINAL [facility] DEPT PATH AND 08/11/2022 LAB MEDICINE Specimen Description SPUTUM [facility] DEPT PATH A ND [facility] LAB MEDICINE Special Requests No special 08/10/2022 [facility] DEPT PA TH AND requests 10:15 PM LAB MEDICINE HEATING WORKER Gram Stain LESS THAN 08/11/2022 [facility] DEPT PATH AND 10/LPF 10:13 AM LAB MEDICINE NEUTROPHILS HEATING WORKER Gram Stain LESS THAN 08/11/2022 [facility] DEPT PATH AND 10/LPF 10:13 AM LAB MEDICINE SQUAMOUS HEATING WORKER EPITHELIAL CELLS Gram Stain MODERATE 08/11/2022 [facility] DEPT PATH AND MIXED 10:13 AM LAB MEDICINE BACTERIA HEATING WORKER Anatomical Location / Laterality Collection Method / Volume Juvenal ection Time Received Time Specimen (Source) SPECIMEN FROM [facility] / Unknown 08/10/2022 9:30 PM HEATING WORKER 08/10/2022 10:15 PM HEATING WORKER Sputum Phuong Vásquez MICROBIOLOGY ORDERABLES ELECT[employer]IAN [employer] City/State/ZIP Code Phone Number [place] [address] [facility] DEPT PATH AND [address] [facility] LAB MEDICINE * CULTURE-URINE W/SENSITIVITY (08/10/2022 9:30 PM HEATING WORKER) Pathologist Signature Component Value Ref Test Method Analysis Performed A t Range Time Battery Name URINE [facility] DEPT PATH AND CULTURE LAB MEDICINE Report Status FINAL [facility] DEPT PATH AND 08/12/2022 LAB MEDICINE Specimen Description URINE [facility] DEPT PATH A ND CATHETER, IN LAB MEDICINE AND OUT Special Requests No special 08/10/2022 [facility] DEPT PA TH AND requests 9:11 PM LAB MEDICINE HEATING WORKER Culture NO GROWTH 08/12/2022 [facility] DEPT PATH AND 6:21 AM LAB MEDICINE HEATING WORKER Anatomical Location / Laterality Collection Method / Volume Juvenal ection Time Received Time Specimen (Source) 08/10/2022 9:30 PM HEATING WORKER 08/10/19 9:55 PM HEATING WORKER Urine (Catheter, In and Out) Phuong Vásquez MICROBIOLOGY ORDERABLES [employer] City/State/ZIP Code Phone Number [place] [address] [facility] DEPT PATH AND [address] LAB MEDICINE * CULTURE-BLOOD W/SENSITIVITY (08/10/2022 9:30 PM HEATING WORKER) Pathologist Signature Component Value Ref Test Method Analysis Performed A t Range Time Battery Name BLOOD [facility] DEPT PATH AND CULTURE LAB MEDICINE Report Status FINAL [facility] DEPT PATH AND 08/16/2022 LAB MEDICINE Specimen Description BLOOD BLOOD, [facility] DEPT PATH A ND PERIPHERAL LAB MEDICINE HAND, LEFT Special Requests aerobic 08/10/2022 [facility] DEPT PA TH AND bottle only 10:17 PM LAB MEDICINE HEATING WORKER Culture NO GROWTH 5 08/16/2022 [facility] DEPT PATH AND DAYS 6:00 AM LAB MEDICINE HEATING WORKER Anatomical Location / Laterality Collection Method / Volume Juvenal ection Time Received Time Specimen (Source) PERIPHERAL BLOOD SPECIMEN / Unknown 08/10/2022 9:30 PM HEATING WORKER 08/10/2022 10:16 PM HEATING WORKER Blood Comment: HAND, LEFT Phuong Vásquez MICROBIOLOGY ORDERABLES E[employer]/ZIP Code Phone Number [place]forming [place] [address] [facility] DEPT PATH AND [address] [facility] LAB MEDICINE * CULTURE-BLOOD W/SENSITIVITY (08/10/2022 9:30 PM HEATING WORKER) Pathologist Signature Component Value Ref Test Method Analysis Performed A t Range Time Battery Name BLOOD [facility] DEPT PATH AND CULTURE LAB MEDICINE Report Status FINAL [facility] DEPT PATH AND 08/16/2022 LAB MEDICINE Specimen Description BLOOD BLOOD, [facility] DEPT PATH A ND PERIPHERAL LAB MEDICINE HAND, RIGHT Special Requests No special 08/10/2022 [facility] DEPT PA TH AND requests 9:08 PM LAB MEDICINE HEATING WORKER Culture NO GROWTH 5 08/16/2022 [facility] DEPT PATH AND DAYS 6:00 AM LAB MEDICINE HEATING WORKER Anatomical Location / Laterality Collection Method / Volume Juvenal ection Time Received Time Specimen (Source) PERIPHERAL BLOOD SPECIMEN / Unknown 08/10/2022 9:30 PM HEATING WORKER 08/10/2022 10:16 PM HEATING WORKER Blood Comment: HAND, RIGHT Phuong Vásquez MICROBIOLOGY ORDERABLES ELECTRICIAN SHOP-CONFERENCE CONCIERGE [facility]/ZIP Code Phone Number [place] [address] [facility] DEPT PATH AND [address] [facility] LAB MEDICINE * CULTURE-RESP,LOWER W/SENSITIVITY (08/10/2022 9:30 PM HEATING WORKER) Pathologist Signature Component Value Ref Test Method Analysis Performed A t Range Time Battery Name LOWER RESP [facility] DEPT PATH AND CULTURE LAB MEDICINE Report Status FINAL [facility] DEPT PATH AND 08/12/2022 LAB MEDICINE Specimen Description SPUTUM [facility] DEPT PATH A ND [facility] LAB MEDICINE Special Requests No special 08/10/2022 [facility] DEPT PA TH AND requests 10:15 PM LAB MEDICINE HEATING WORKER Direct Gram Stain LESS THAN 08/11/2022 [facility] DEPT P ATH AND LPF 10:13 AM LAB MEDICINE NEUTROPHILS HEATING WORKER Direct Gram Stain LESS THAN 08/11/2022 [facility] DEPT P ATH AND 10/LPF 10:13 AM LAB MEDICINE SQUAMOUS HEATING WORKER EPITHELIAL CELLS Direct Gram Stain MODERATE 08/11/2022 [facility] DEPT P ATH AND MIXED 10:13 AM LAB MEDICINE BACTERIA HEATING WORKER Culture Moderate 08/12/2022 [facility] DEPT PATH AND growth 9:49 AM LAB MEDICINE NORMAL HEATING WORKER OROPHARYNGEA L HOOD Anatomical Location / Laterality Collection Method / Volume Juvenal ection Time Received Time Specimen (Source) SPECIMEN FROM TR[facility] / Unknown 08/10/2022 9:30 PM HEATING WORKER 08/10/2022 10:15 PM HEATING WORKER Sputum Phuong Vásquez MICROBIOLOGY ORDERABLES ELECTRICIAN SH[employer]CONFERENCE CONCIERGE [facility]/ZIP Code Phone Number [place]forming [place] [address] [facility] DEPT PATH AND [address] LAB MEDICINE * PROCALCITONIN (08/10/2022 9:30 PM HEATING WORKER) Pathologist Signature Component Value Ref Test Method Analysis Performed A t Range Time Procalcitonin 0.11 ng/mL 08/10/2022 [facility] DEPT P ATH AND 10:29 PM LAB MEDICINE HEATING WORKER Comment: Suspected Lower Respiratory Tract Infection: >0.25 ng/mL-Increased likeihood bacterial infection Suspected Sepsis: >0.5 ng/mL-Increased likelihood sepsis >2.0 ng/mL-High risk of sepsis/septic shock Anatomical Location / Laterality Collection Method / Volume Juvenal ection Time Received Time Specimen (Source) BLOOD / Unknown 08/10/2022 9:30 PM HEATING WORKER 08/10/19 9:52 PM HEATING WORKER Phuong Vásquez LABORATORY ORDERABLES ELECTRICIAN SH[employer]-CONFERENCE CONCIERGE [facility]/State/ZIP Code Phone Number [place]forming [place] [address] [facility] DEPT PATH AND [address] LAB MEDICINE * MRSA PNEUMONIA SCREEN (08/10/2022 9:00 PM HEATING WORKER) Pathologist Signature Component Value Ref Test Method Analysis Performed A t Range Time MRSA Pneumonia PCR NOT DETECTED 08/11/2022 [facility] DEPT PATH AND The negative 12:35 AM LAB MEDICINE predictive HEATING WORKER value of this assay for MRSA pneumonia is high. Discontinuat ion of anti-MRSA pneumonia therapy is recommended in patients without additional clinical features that warrant MRSA therapy. Contact infectious Diseases or Antimicrobia l Stewardship with questions. Anatomical Location / Laterality Collection Method / Volume Juvenal ection Time Received Time Specimen (Source) SWAB OF INTERNAL NOSE / Unknown 08/10/2022 9:00 PM HEATING WORKER 08/10/2022 10:15 PM HEATING WORKER Flocked Swab Phuong Vásquez MICROBIOLOGY ORDERABLES ELECTRICIAN [employer]ENCE CONCIERGE City/State/ZIP Code Phone Number [place] [address] [facility] [address] [facility] MEDICINE * (ABNORMAL) CT ABD/PELV WO CONTRAST (08/10/2022 9:46 AM HEATING WORKER) Modality Anatomical Region Laterality Computed Tomography CHEST/AB/PEL Anatomical Location / Laterality Collection Method / Volume Juvenal ection Time Received Time Specimen (Source) 08/10/2022 10:07 AM HEATING WORKER Impressions 08/10/2022 10:26 AM HEATING WORKER CHEST: 1. Intubation. Expiratory phase of [...] renal cysts. No hydronephrosis. #FOLLOW Finalized by EDMUNDO ZURITA M.D. on 08/10/2022 10:26 AM. Dictated by EDMUNDO ZURITA M.D. on 08/10/2022 10:07 AM. Narrative 08/10/2022 10:[address] CHEST, ABDOMEN AND PELVIS Clinical [...] Median sternotomy and CABG. Mild cardiomegaly. Dense [place] coronary artery calcifications. Thoracic aorta normal in [...] No destructive osseous lesion. Procedure Note Best, Edmundo Schulz MD - 08/10/2022 CT CHEST, ABDOMEN [...] Median sternotomy and CABG. Mild cardiomegaly. Dense [place] coronary artery calcifications. Thoracic aorta normal in [...] renal cysts. No hydronephrosis. #FOLLOW Finalized by EDMUNDO ZURITA M.D. on 08/10/2022 10:26 AM. Dictated by EDMUNDO ZURITA M.D. on 08/10/2022 10:07 AM. Hernandez Paniagua DO CT ORDERABLES * (ABNORMAL) CT CHEST WO CONTRAST (08/10/2022 9:46 AM HEATING WORKER) Modality Anatomical Region Laterality Computed Tomography CHEST Anatomical Location / Laterality Collection Method / Volume Juvenal ection Time Received Time Specimen (Source) 08/10/2022 10:07 AM HEATING WORKER Impressions 08/10/2022 10:26 AM HEATING WORKER CHEST: 1. Intubation. Expiratory phase of [...] renal cysts. No hydronephrosis. #FOLLOW Finalized by EDMUNDO ZURITA M.D. on 08/10/2022 10:26 AM. Dictated by EDMUNDO ZURITA M.D. on 08/10/2022 10:07 AM. Narrative 08/10/2022 10:[address] CHEST, ABDOMEN AND PELVIS Clinical [...] Median sternotomy and CABG. Mild cardiomegaly. Dense [place] coronary artery calcifications. Thoracic aorta normal in [...] No destructive osseous lesion. Procedure Note Best, Edmundo Schulz MD - 08/10/2022 CT CHEST, ABDOMEN [...] Median sternotomy and CABG. Mild cardiomegaly. Dense [place] coronary artery calcifications. Thoracic aorta normal in [...] renal cysts. No hydronephrosis. #FOLLOW Finalized by EDMUNDO ZURITA M.D. on 08/10/2022 10:26 AM. Dictated by EDMUNDO ZURITA M.D. on 08/10/2022 10:07 AM. Hernandez Paniagua DO CT ORDERABLES * 2D + DOPPLER ECHO W/ CONTRAST (08/10/2022 7:59 AM HEATING WORKER) Pathologist Signature Component Value Ref Test [...] Mass 45 49 - 115 OTHER OUTS [facility] LAB Index g/m2 Left Ventricle 51 34 [...] Time Specimen (Source) Narrative 08/10/2022 8:32 AM HEATING WORKER Left Ventricle: The left ventricular size [...] Yousuf Solis ECHO ORDERABLES Luis TODD * CT HEAD WO CONTRAST (08/10/2022 6:24 AM HEATING WORKER) Modality Anatomical Region Laterality Computed Tomography Head Anatomical Location / Laterality Collection Method / Volume Juvenal ection Time Received Time Specimen (Source) 08/10/2022 7:33 AM HEATING WORKER Impressions 08/10/2022 8:56 AM HEATING WORKER 1. Evolving acute/recent left MCA terr itory infarct involving the lateral left frontal lobe, anterior insula, and external capsule, slightly better demonstrated on recent MRI. There are some minimal foci of hyperdense petechial type hemorrhage, concordant with the MRI findings. No gross hemorrhagic conversion. 2. Similar mild associated localized m ass effect and sulcal effacement. No midline shift, hydrocephalus, or herniation. 3. 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 4. Moderate patchy cerebral white isela er hypodensities, likely due to chronic microvascular ischemic changes. By my electronic signature, I attest that I have personally reviewed the images for this examination and formulated the interpretations and opinions expressed in this report Finalized by Darwin Bowles M.D. on 08/10/2022 8:56 AM. Dictated by Ray Bruno M.D. on 08/10/2022 7:33 AM. Narrative 08/10/2022 8:56 AM HEATING WORKER EXAM: CT HEAD HISTORY: Stability. TECHNIQUE: Multiple contiguous axial images were obtained of the brain without intravenous contrast. COMPARISON: None FINDINGS: Evolving moderate-sized recent left MCA territory infarct involving the left frontal lobe, anterior insula, and external capsule, slightly better demonstrated on recent MRI. There are some very small subtle areas of hyperattenuation within the left frontal lobe (for example on series 303 image 54), compatible with minimal petechial type hemorrhage. There is mild associated regional mass effect and sulcal effacement. The ventricles are stable in size and configuration. No midline shift or herniation. Small left superior parietal postcentral gyrus infarct. Old right parietal and right superior frontal lobe infarcts and associated encephalomalacia and gliosis. Old small bilateral cerebellar infarcts with old small left caudate head lacunar-type infarcts. Moderate superimposed patchy supratentorial white matter hypodensities. Mild mucosal thickening of the maxillary and sphenoid sinuses. The mastoid air cells and remaining visualized paranasal sinuses are well-aerated. Retained secretions are noted within the nasal cavity and nasopharynx. Partially visualized indwelling left approach nasoenteric and endotracheal tubes. Prior ocular lens replacements. Procedure Note Darwin Bowles MD - 08/10/2022 EXAM: CT HEAD HISTORY: Stability. TECHNIQUE: Multiple contiguous axial images were obtained of the brain without intravenous contrast. COMPARISON: None FINDINGS: Evolving moderate-sized recent left MCA territory infarct involving the left frontal lobe, anterior insula, and external capsule, slightly better demonstrated on recent MRI. There are some very small subtle areas of hyperattenuation within the left frontal lobe (for example on series 303 image 54), compatible with minimal petechial type hemorrhage. There is mild associated regional mass effect and sulcal effacement. The ventricles are stable in size and configuration. No midline shift or herniation. Small left superior parietal postcentral gyrus infarct. Old right parietal and right superior frontal lobe infarcts and associated encephalomalacia and gliosis. Old small bilateral cerebellar infarcts with old small left caudate head lacunar-type infarcts. Moderate superimposed patchy supratentorial white matter hypodensities. Mild mucosal thickening of the maxillary and sphenoid sinuses. The mastoid air cells and remaining visualized paranasal sinuses are well-aerated. Retained secretions are noted within the nasal cavity and nasopharynx. Partially visualized indwelling left approach nasoenteric and endotracheal tubes. Prior ocular lens replacements. IMPRESSION 1. Evolving acute/recent left MCA rachael tory infarct involving the lateral left frontal lobe, anterior insula, and external capsule, slightly better demonstrated on recent MRI. There are some minimal foci of hyperdense petechial type hemorrhage, concordant with the MRI findings. No gross hemorrhagic conversion. 2. Similar mild associated localized ma ss effect and sulcal effacement. No midline shift, hydrocephalus, or herniation. 3. 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 4. Moderate patchy cerebral white matte r hypodensities, likely due to chronic microvascular ischemic changes. By my electronic signature, I attest that I have personally reviewed the images for this examination and formulated the interpretations and opinions expressed in this report Finalized by Darwin Bowles M.D. on 08/10/2022 8:56 AM. Dictated by Ray Bruno M.D. on 08/10/2022 7:[address] Vás[address] ORDERABLES ELECTRICIAN SH[employer]-CONFERENCE [employer]ER[employer] * IONIZED CALCIUM (08/10/2022 2:38 AM HEATING WORKER) Pathologist Signature Component Value Ref Test Method Analysis Performed A t Range Time Ionized Calcium 1.18 1.0 - 08/10/2022 [facility] DEPT PATH AND 1.3 3:25 AM LAB MEDICINE MMOL/L HEATING WORKER Anatomical Location / Laterality Collection Method / Volume Juvenal ection Time Received Time Specimen (Source) BLOOD / Unknown 08/10/2022 2:38 AM HEATING WORKER 08/10/19 2:50 AM HEATING WORKER Isabel Lobo LABORATORY ORDERABLES ELECTRICIAN [employer]FERENCE [employer]CIERGE City/State/ZIP Code Phone Number [place]forming [place] [address] [facility] DEPT PATH AND [address] [facility] LAB MEDICINE * PHOSPHORUS (08/10/2022 2:38 AM HEATING WORKER) Pathologist Signature Component Value Ref Test Method Analysis Performed A t Range Time Phosphorus 3.6 2.0 - 08/10/2022 [facility] DEPT PAT H AND 4.5 3:39 AM LAB MEDICINE MG/DL HEATING WORKER Anatomical Location / Laterality Collection Method / Volume Juvenal ection Time Received Time Specimen (Source) BLOOD / Unknown 08/10/2022 2:38 AM HEATING WORKER 08/10/19 2:47 AM HEATING WORKER Yousuf Solis LABORATORY ORDERABLES Luis TODD [facility]/ZIP Code Phone Number [place] [address] [facility] DEPT PATH AND [address] [facility] LAB MEDICINE * MAGNESIUM (08/10/2022 2:38 AM HEATING WORKER) Pathologist Signature Component Value Ref Test Method Analysis Performed A t Range Time Magnesium 2.0 1.6 - 08/10/2022 [facility] DEPT PAT H AND 2.6 3:39 AM LAB MEDICINE mg/dL HEATING WORKER Anatomical Location / Laterality Collection Method / Volume Juvenal ection Time Received Time Specimen (Source) BLOOD / Unknown 08/10/2022 2:38 AM HEATING WORKER 08/10/19 2:47 AM HEATING WORKER Yousuf Solis LABORATORY ORDERABLES Luis TODD [facility]/ZIP Code Phone Number Performing [place] [address] [facility] AND [address] [facility] LAB MEDICINE * (ABNORMAL) CBC AND DIFF (08/10/2022 2:38 AM HEATING WORKER) Pathologist Signature Component Value Ref Test Method Analysis Performed A t Range Time White Blood Cells 11.2 (H) 4.5 - 08/10/2022 [facility] DE PT PATH AND 11.0 3:18 AM LAB MEDICINE K/UL HEATING WORKER RBC 4.77 4.4 - 08/10/2022 [facility] DEPT PAT H AND 5.5 M/UL 3:18 AM LAB MEDICINE HEATING WORKER Hemoglobin 14.2 13.5 - 08/10/2022 [facility] DEPT PAT H AND 16.5 3:18 AM LAB MEDICINE GM/DL HEATING WORKER Hematocrit 43.2 40 - 50 08/10/2022 [facility] DEPT PAT H AND % 3:18 AM LAB MEDICINE HEATING WORKER MCV 90.7 80 - 100 08/10/2022 [facility] DEPT PAT H AND FL 3:18 AM LAB MEDICINE HEATING WORKER MCH 29.8 26 - 34 08/10/2022 [facility] DEPT PAT H AND PG 3:18 AM LAB MEDICINE HEATING WORKER MCHC 32.8 32.0 - 08/10/2022 [facility] DEPT PAT H AND 36.0 3:18 AM LAB MEDICINE G/DL HEATING WORKER RDW 14.3 11 - 15 08/10/2022 [facility] DEPT PAT H AND % 3:18 AM LAB MEDICINE HEATING WORKER Platelet Count 235 150 - 08/10/2022 [facility] DEPT PATH AND 400 K/UL 3:18 AM LAB MEDICINE HEATING WORKER MPV 8.9 7 - 11 08/10/2022 [facility] DEPT PAT H AND FL 3:18 AM LAB MEDICINE HEATING WORKER Neutrophils 81 (H) 41 - 77 08/10/2022 [facility] DEPT PAT H AND % 3:18 AM LAB MEDICINE HEATING WORKER Lymphocytes 8 (L) 24 - 44 08/10/2022 [facility] DEPT PAT H AND % 3:18 AM LAB MEDICINE HEATING WORKER Monocytes 10 4 - 12 % 08/10/2022 [facility] DEPT PAT H AND 3:18 AM LAB MEDICINE HEATING WORKER Eosinophils 1 0 - 5 % 08/10/2022 [facility] DEPT PAT H AND 3:18 AM LAB MEDICINE HEATING WORKER Basophils 0 0 - 2 % 08/10/2022 [facility] DEPT PAT H AND 3:18 AM LAB MEDICINE HEATING WORKER Absolute Neutrophil 9.00 (H) 1.8 - 08/10/2022 [facility] DEPT PATH AND Count 7.0 K/UL 3:18 AM LAB MEDICINE HEATING WORKER Absolute Lymph Count 0.93 (L) 1.0 - 08/10/2022 [facility] DEPT PATH AND 4.8 K/UL 3:18 AM LAB MEDICINE HEATING WORKER Absolute Monocyte 1.14 (H) 0 - 0.80 08/10/2022 [facility] DE PT PATH AND Count K/UL 3:18 AM LAB MEDICINE HEATING WORKER Absolute Eosinophil 0.08 0 - 0.45 08/10/2022 [facility] DEPT PATH AND Count K/UL 3:18 AM LAB MEDICINE HEATING WORKER Absolute Basophil 0.04 0 - 0.20 08/10/2022 [facility] DE PT PATH AND Count K/UL 3:18 AM LAB MEDICINE HEATING WORKER Anatomical Location / Laterality Collection Method / Volume Juvenal ection Time Received Time Specimen (Source) BLOOD / Unknown 08/10/2022 2:38 AM HEATING WORKER 08/10/19 2:47 AM HEATING WORKER Yousuf Solis LABORATORY ORDERABLES Luis TODD City/State/ZIP Code Phone Number [place] [address] [facility] DEPT PATH AND [address] LAB MEDICINE * (ABNORMAL) BASIC METABOLIC PANEL (08/10/2022 2:38 AM HEATING WORKER) Pathologist Signature Component Value Ref Test Method Analysis Performed A t Range Time Sodium 140 137 - 08/10/2022 [facility] DEPT PAT H AND 147 3:39 AM LAB MEDICINE MMOL/L HEATING WORKER Potassium 4.3 3.5 - 08/10/2022 [facility] DEPT PAT H AND 5.1 3:39 AM LAB MEDICINE MMOL/L HEATING WORKER Chloride 107 98 - 110 08/10/2022 [facility] DEPT PAT H AND MMOL/L 3:39 AM LAB MEDICINE HEATING WORKER CO2 25 21 - 30 08/10/2022 [facility] DEPT PAT H AND MMOL/L 3:39 AM LAB MEDICINE HEATING WORKER Anion Gap 8 3 - 12 08/10/2022 [facility] DEPT PAT H AND 3:39 AM LAB MEDICINE HEATING WORKER Glucose 114 (H) 70 - 100 08/10/2022 [facility] DEPT PAT H AND MG/DL 3:39 AM LAB MEDICINE HEATING WORKER Blood Urea Nitrogen 24 7 - 25 08/10/2022 [facility] DEPT PATH AND MG/DL 3:39 AM LAB MEDICINE HEATING WORKER Creatinine 1.75 (H) 0.4 - 08/10/2022 [facility] DEPT PAT H AND 1.24 3:39 AM LAB MEDICINE MG/DL HEATING WORKER Calcium 8.6 8.5 - 08/10/2022 [facility] DEPT PAT H AND 10.6 3:39 AM LAB MEDICINE MG/DL HEATING WORKER eGFR 40 (L) >60 08/10/2022 [facility] DEPT PAT H AND mL/min 3:39 AM LAB MEDICINE HEATING WORKER Comment: eGFR calculated using the CKD-EPIcr_R equation Anatomical Location / Laterality Collection Method / Volume Juvenal ection Time Received Time Specimen (Source) BLOOD / Unknown 08/10/2022 2:38 AM HEATING WORKER 08/10/19 2:47 AM HEATING WORKER Yousuf Solis LABORATORY ORDERABLES Luis TODD [facility]/ZIP Code Phone Number [place] [address] [facility] DEPT PATH AND [address] LAB MEDICINE * (ABNORMAL) LIPID PROFILE (08/10/2022 2:38 AM HEATING WORKER) Pathologist Signature Component Value Ref Test Method Analysis Performed A t Range Time Cholesterol 146 <200 08/10/2022 [facility] DEPT PAT H AND MG/DL 3:39 AM LAB MEDICINE HEATING WORKER Triglycerides 130 <150 08/10/2022 [facility] DEPT P ATH AND MG/DL 3:39 AM LAB MEDICINE HEATING WORKER HDL 29 (L) >40 08/10/2022 [facility] DEPT PAT H AND MG/DL 3:39 AM LAB MEDICINE HEATING WORKER LDL 106 (H) <100 08/10/2022 [facility] DEPT PAT H AND mg/dL 3:39 AM LAB MEDICINE HEATING WORKER VLDL 26 MG/DL 08/10/2022 [facility] DEPT PAT H AND 3:39 AM LAB MEDICINE HEATING WORKER Non HDL Cholesterol 117 MG/DL 08/10/2022 [facility] DEPT PATH AND 3:39 AM LAB MEDICINE HEATING WORKER Comment: Calculated non-HDL Cholesterol (non-HDL-C) indirectly measures LDL-C, Lp(a), IDL-C, and VLDL-C. It is a surrogate marker for Apoprotein B. Goal should be less than 130 mg/dL. Anatomical Location / Laterality Collection Method / Volume Juvenal ection Time Received Time Specimen (Source) BLOOD / Unknown 08/10/2022 2:38 AM HEATING WORKER 08/10/19 2:47 AM HEATING WORKER Yousuf Solis LABORATORY ORDERABLES Luis TODD [facility]/ZIP Code Phone Number [place]forming [place] [address] [facility] DEPT PATH AND [address] LAB MEDICINE * MRA HEAD WO CONTRAST (08/09/2022 11:45 PM HEATING WORKER) Modality Anatomical Region Laterality Magnetic Resonance Head Anatomical Location / Laterality Collection Method / Volume Juvenal ection Time Received Time Specimen (Source) 08/09/2022 11:47 PM HEATING WORKER Impressions 08/10/2022 12:25 AM HEATING WORKER MR brain: 1. Acute moderate sized [...] 08/09/2022 11:47 PM. Narrative 08/10/2022 12:25 AM HEATING WORKER EXAM: MRI AND MRA BRAIN HISTORY: 77-year-old male, stroke, vessel imaging TECHNIQUE: Multiplanar and multisequence MR imaging of the head was performed. This was done both before and after the administration of MultiHance contrast. 3D wafg-zo-[id number] images of the [place] was performed without contrast. 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 The anterior and posterior cerebral arteries are patent without focal narrowing. No aneurysm or arteriovenous malformation is identified. Procedure Note Wilmer Noguera MD - 08/10/2022 EXAM: MRI AND MRA BRAIN HISTORY: 77-year-old male, stroke, vessel imaging TECHNIQUE: Multiplanar and multisequence MR imaging of the head was performed. This was done both before and after the administration of MultiHance contrast. 3D tjiu-og-sfaetf images of the [place] was performed without contrast. 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 The anterior and posterior cerebral arteries are [...] 08/09/2022 11:47 PM. Phuong Vásquez MR ORDERABLES ELECTRICIAN SH[employer]-CONFERENCE [employer]CIERGE * MRI HEAD WO CONTRAST (08/09/2022 11:45 PM HEATING WORKER) Modality Anatomical Region Laterality Magnetic Resonance Head Anatomical Location / Laterality Collection Method / Volume Juvenal ection Time Received Time Specimen (Source) 08/09/2022 11:47 PM HEATING WORKER Impressions 08/10/2022 12:25 AM HEATING WORKER MR brain: 1. Acute moderate sized [...] 08/09/2022 11:47 PM. Narrative 08/10/2022 12:25 AM HEATING WORKER EXAM: MRI AND MRA BRAIN HISTORY: 77-year-old male, stroke, vessel imaging TECHNIQUE: Multiplanar and multisequence MR imaging of the head was performed. This was done both before and after the administration of MultiHance contrast. 3D mpzu-rr-bsrwsy images of the [place] was performed without contrast. 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 The anterior and posterior cerebral arteries are patent without focal narrowing. No aneurysm or arteriovenous malformation is identified. Procedure Note Wilmer Noguera MD - 08/10/2022 EXAM: MRI AND MRA BRAIN HISTORY: 77-year-old male, stroke, vessel imaging TECHNIQUE: Multiplanar and multisequence MR imaging of the head was performed. This was done both before and after the administration of MultiHance contrast. 3D trgi-gw-tehgaa images of the [place] was performed without contrast. 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 The anterior and posterior cerebral arteries are [...] Nicko Hernandez D.O. on 08/09/2022 11:47 PM. Phoung Vásquez MR ORDERABLES ELECTRICIAN SH[employer]-CONFERENCE [employer] * FEEDING TUBE PLCMNT (ABD/CHEST LMTD) (08/09/2022 10:51 PM HEATING WORKER) Modality Anatomical Region Laterality Computed Radiography CHEST, Abdomen Anatomical Location / Laterality Collection Method / Volume Juvenal ection Time Received Time Specimen (Source) 08/10/2022 10:46 AM HEATING WORKER Impressions 08/10/2022 10:50 AM HEATING WORKER Enteric tube with tip projecting over the proximal duodenum. Finalized by Renae Drummond MD on 08/10/2022 10:50 AM. Dictated by Renae Drummond MD on 08/10/2022 10:46 AM. Narrative 08/10/2022 10:50 AM HEATING WORKER FEEDING TUBE PLCMNT (ABD/CHEST LMTD) INDICATION: [...] cardiac silhouette. Mild bibasilar atelectasis. Procedure Note Renae Drummond MD - 08/10/2022 FEEDING TUBE PLCMNT [...] AM. Isabel Lobo DIAGNOSTIC IMAGING ORDERABL ES ELECTRICIAN SH[employer]-CONFERENCE [employer] * CHEST SINGLE VIEW (08/09/2022 6:12 PM HEATING WORKER) Modality Anatomical Region Laterality Computed Radiography CHEST Anatomical Location / Laterality Collection Method / Volume Juvenal ection Time Received Time Specimen (Source) 08/10/2022 7:15 AM HEATING WORKER Impressions 08/10/2022 7:17 AM HEATING WORKER Mild cardiomegaly and pulmonary vascular congestion with poor depth of inspiration and bibasilar atelectasis. Finalized by Bahman Her M.D. on 08/10/2022 7:17 AM. Dictated by Bahman Her M.D. on 08/10/2022 7:15 AM. Narrative 08/10/2022 7:17 AM HEATING WORKER Single view INDICATION: Hypoxia COMPARISON CHEST FILM: None available FINDINGS: Devices: ET tube is in place with the tip well above the sergio. Sternotomy wires and loop recorder are in place. Heart And Pulmonary Vasculature: The heart size is mildly enlarged with pulmonary vascular congestion. Lungs and Pleura: There is poor depth of inspiration with bibasilar atelectasis. No pleural effusion or pneumothorax is identified. Old right clavicle fracture deformity. Procedure Note Bahman Her MD - 08/10/2022 Single view INDICATION: Hypoxia COMPARISON CHEST FILM: None available FINDINGS: Devices: ET tube is in place with the tip well above the sergio. Sternotomy wires and loop recorder are in place. Heart And Pulmonary Vasculature: The heart size is mildly enlarged with pulmonary vascular congestion. Lungs and Pleura: There is poor depth of inspiration with bibasilar atelectasis. No pleural effusion or pneumothorax is identified. Old right clavicle fracture deformity. IMPRESSION Mild cardiomegaly and pulmonary vascular congestion with poor depth of inspiration and bibasilar atelectasis. Finalized by Bahman Her M.D. on 08/10/2022 7:17 AM. Dictated by Bahman Her M.D. on 08/10/2022 7:15 AM. Isabel Lobo DIAGNOSTIC IMAGING ORDERABL ES ELECTRICIAN [employer]FERENCE [employer] * TROPONIN-I (08/09/2022 5:30 PM HEATING WORKER) Pathologist Signature Component Value Ref Test Method Analysis Performed A t Range Time Troponin-I 0.01 0.0 - 08/09/2022 [facility] DEPT PAT H AND 0.05 6:36 PM LAB MEDICINE NG/ML HEATING WORKER Anatomical Location / Laterality Collection Method / Volume Juvenal ection Time Received Time Specimen (Source) 08/09/2022 5:30 PM HEATING WORKER 08/09/19 5:39 PM HEATING WORKER Silverio Suarez LABORATORY ORDERABLES [facility]/State/ZIP Code Phone Number Performing [place] [address] [facility] DEPT PATH AND [address] LAB MEDICINE * BNP (B-TYPE NATRIURETIC PEPTI) (08/09/2022 5:30 PM HEATING WORKER) Pathologist Signature Component Value Ref Test Method Analysis Performed A t Range Time B Type Natriuretic 79.0 0 - 100 08/09/2022 [facility] EPT PATH AND Peptide PG/ML 6:35 PM LAB MEDICINE HEATING WORKER Anatomical Location / Laterality Collection Method / Volume Juvenal ection Time Received Time Specimen (Source) 08/09/2022 5:30 PM HEATING WORKER 08/09/19 5:39 PM HEATING WORKER Silverio Suarez [email or web address] LABORATORY ORDERABLES [facility]/State/ZIP Code Phone Number Performing [place] [address] [facility] DEPT PATH AND [address] LAB MEDICINE * (ABNORMAL) BLOOD GASES, ARTERIAL (08/09/2022 5:30 PM HEATING WORKER) Pathologist Signature Component Value Ref Test Method Analysis Performed A t Range Time pH-Arterial 7.36 7.35 - 08/09/2022 [facility] DEPT PAT H AND 7.45 5:44 PM LAB MEDICINE HEATING WORKER pCO2-Arterial 43 35 - 45 08/09/2022 [facility] DEPT P ATH AND [facility] 5:44 PM LAB MEDICINE HEATING WORKER pO2-Arterial 180 (H) 80 - 100 08/09/2022 [facility] PA TH AND [facility] 5:44 PM LAB MEDICINE HEATING WORKER Base 1.6 MMOL/L 08/09/2022 [facility] DEPT PAT H AND Deficit-Arterial 5:44 PM LAB MEDICINE HEATING WORKER O2 Sat-Arterial 99.2 (H) 95 - 99 08/09/2022 [facility] DEPT PATH AND % 5:44 PM LAB MEDICINE HEATING WORKER Uphpvmrznnt-XJZ-Zst 23.1 21 - 28 08/09/2022 [facility] DEPT PATH AND MMOL/L 5:44 PM LAB MEDICINE HEATING WORKER Anatomical Location / Laterality Collection Method / Volume Juvenal ection Time Received Time Specimen (Source) BLOOD / Unknown 08/09/2022 5:30 PM HEATING WORKER 08/09/19 23 5:39 PM HEATING WORKER Blood, arterial Isabel Lobo OTHER LABORATORY ELECTRICIAN [employer] City/State/ZIP Code Phone Number Performing [place] [address] [facility] DEPT PATH AND [address] [facility]. LAB MEDICINE * (ABNORMAL) COMPREHENSIVE METABOLIC PANEL (08/09/2022 5:30 PM HEATING WORKER) Pathologist Signature Component Value Ref Test Method Analysis Performed A t Range Time Sodium 142 137 - 08/09/2022 [facility] DEPT PAT H AND 147 6:36 PM LAB MEDICINE MMOL/L HEATING WORKER Potassium 4.5 3.5 - 08/09/2022 [facility] DEPT PAT H AND 5.1 6:36 PM LAB MEDICINE MMOL/L HEATING WORKER Chloride 106 98 - 110 08/09/2022 [facility] DEPT PAT H AND MMOL/L 6:36 PM LAB MEDICINE HEATING WORKER Glucose 108 (H) 70 - 100 08/09/2022 [facility] DEPT PAT H AND MG/DL 6:36 PM LAB MEDICINE HEATING WORKER Blood Urea Nitrogen 24 7 - 25 08/09/2022 [facility] DEPT PATH AND MG/DL 6:36 PM LAB MEDICINE HEATING WORKER Creatinine 1.75 (H) 0.4 - 08/09/2022 [facility] PAT H AND 1.24 6:36 PM LAB MEDICINE MG/DL HEATING WORKER Calcium 9.1 8.5 - 08/09/2022 [facility] DEPT PAT H AND 10.6 6:36 PM LAB MEDICINE MG/DL HEATING WORKER Total Protein 6.7 6.0 - 08/09/2022 [facility] P ATH AND 8.0 G/DL 6:36 PM LAB MEDICINE HEATING WORKER Total Bilirubin 0.7 0.3 - 08/09/2022 [facility] DEPT PATH AND 1.2 6:36 PM LAB MEDICINE MG/DL HEATING WORKER Albumin 3.7 3.5 - 08/09/2022 [facility]PT PAT H AND 5.0 G/DL 6:36 PM LAB MEDICINE HEATING WORKER Alk Phosphatase 132 (H) 25 - 110 08/09/2022 [facility] DEPT PATH AND U/L 6:36 PM LAB MEDICINE HEATING WORKER AST (SGOT) 19 7 - 40 08/09/2022 [facility] PAT H AND U/L 6:36 PM LAB MEDICINE HEATING WORKER CO2 26 21 - 30 08/09/2022 [facility] PAT H AND MMOL/L 6:36 PM LAB MEDICINE HEATING WORKER ALT (SGPT) 18 7 - 56 08/09/2022 [facility] DEPT PAT H AND U/L 6:36 PM LAB MEDICINE HEATING WORKER Anion Gap 10 3 - 12 08/09/2022 [facility] PAT H AND 6:36 PM LAB MEDICINE HEATING WORKER eGFR 40 (L) >60 08/09/2022 [facility] DEPT PAT H AND mL/min 6:36 PM LAB MEDICINE HEATING WORKER Comment: eGFR calculated using the CKD-[id number]_R equation Anatomical Location / Laterality Collection Method / Volume Juvenal ection Time Received Time Specimen (Source) BLOOD / Unknown 08/09/2022 5:30 PM HEATING WORKER 08/09/19 5:39 PM HEATING WORKER Yousuf Solis LABORATORY ORDERABLES Luis TODD City/State/ZIP Code Phone Number [place] [address] [facility] DEPT PATH AND [address] [facility]. LAB MEDICINE * PHOSPHORUS (08/09/2022 5:30 PM HEATING WORKER) Pathologist Signature Component Value Ref Test Method Analysis Performed A t Range Time Phosphorus 3.0 2.0 - 08/09/2022 [facility] DEPT PAT H AND 4.5 6:36 PM LAB MEDICINE MG/DL HEATING WORKER Anatomical Location / Laterality Collection Method / Volume Juvenal ection Time Received Time Specimen (Source) BLOOD / Unknown 08/09/2022 5:30 PM HEATING WORKER 08/09/19 23 5:39 PM HEATING WORKER Yousuf Solis LABORATORY ORDERABLES Luis TODD [facility]/ZIP Code Phone Number Performing [place] [address] [facility] DEPT PATH AND [address] LAB MEDICINE * MAGNESIUM (08/09/2022 5:30 PM HEATING WORKER) Pathologist Signature Component Value Ref Test Method Analysis Performed A t Range Time Magnesium 1.9 1.6 - 08/09/2022 [facility] DEPT PAT H AND 2.6 6:36 PM LAB MEDICINE mg/dL HEATING WORKER Anatomical Location / Laterality Collection Method / Volume Juvenal ection Time Received Time Specimen (Source) BLOOD / Unknown 08/09/2022 5:30 PM HEATING WORKER 08/09/19 23 5:39 PM HEATING WORKER Yousuf Solis LABORATORY ORDERABLES Luis TODD [facility]/ZIP Code Phone Number Performing [place] [address] [facility] DEPT PATH AND [address] LAB MEDICINE * (ABNORMAL) CBC AND DIFF (08/09/2022 5:30 PM HEATING WORKER) Pathologist Signature Component Value Ref Test Method Analysis Performed A t Range Time White Blood Cells 7.5 4.5 - 08/09/2022 [facility] DE PT PATH AND 11.0 6:08 PM LAB MEDICINE K/UL HEATING WORKER RBC 5.41 4.4 - 08/09/2022 [facility] DEPT PAT H AND 5.5 M/UL 6:08 PM LAB MEDICINE HEATING WORKER Hemoglobin 16.5 13.5 - 08/09/2022 [facility] DEPT PAT H AND 16.5 6:08 PM LAB MEDICINE GM/DL HEATING WORKER Hematocrit 49.1 40 - 50 08/09/2022 [facility] DEPT PAT H AND % 6:08 PM LAB MEDICINE HEATING WORKER MCV 90.7 80 - 100 08/09/2022 [facility] DEPT PAT H AND FL 6:08 PM LAB MEDICINE HEATING WORKER MCH 30.5 26 - 34 08/09/2022 [facility] DEPT PAT H AND PG 6:08 PM LAB MEDICINE HEATING WORKER MCHC 33.6 32.0 - 08/09/2022 [facility] DEPT PAT H AND 36.0 6:08 PM LAB MEDICINE G/DL HEATING WORKER RDW 14.4 11 - 15 08/09/2022 [facility] DEPT PAT H AND % 6:08 PM LAB MEDICINE HEATING WORKER Platelet Count 261 150 - 08/09/2022 [facility] DEPT PATH AND 400 K/UL 6:08 PM LAB MEDICINE HEATING WORKER MPV 8.7 7 - 11 08/09/2022 [facility] DEPT PAT H AND FL 6:08 PM LAB MEDICINE HEATING WORKER Neutrophils 79 (H) 41 - 77 08/09/2022 [facility] DEPT PAT H AND % 6:08 PM LAB MEDICINE HEATING WORKER Lymphocytes 11 (L) 24 - 44 08/09/2022 [facility] DEPT PAT H AND % 6:08 PM LAB MEDICINE HEATING WORKER Monocytes 8 4 - 12 % 08/09/2022 [facility] DEPT PAT H AND 6:08 PM LAB MEDICINE HEATING WORKER Eosinophils 1 0 - 5 % 08/09/2022 [facility] DEPT PAT H AND 6:08 PM LAB MEDICINE HEATING WORKER Basophils 1 0 - 2 % 08/09/2022 [facility] DEPT PAT H AND 6:08 PM LAB MEDICINE HEATING WORKER Absolute Neutrophil 6.00 1.8 - 08/09/2022 [facility] DEPT PATH AND Count 7.0 K/UL 6:08 PM LAB MEDICINE HEATING WORKER Absolute Lymph Count 0.83 (L) 1.0 - 08/09/2022 [facility] DEPT PATH AND 4.8 K/UL 6:08 PM LAB MEDICINE HEATING WORKER Absolute Monocyte 0.58 0 - 0.80 08/09/2022 [facility] DE PT PATH AND Count K/UL 6:08 PM LAB MEDICINE HEATING WORKER Absolute Eosinophil 0.07 0 - 0.45 08/09/2022 [facility] DEPT PATH AND Count K/UL 6:08 PM LAB MEDICINE HEATING WORKER Absolute Basophil 0.04 0 - 0.20 08/09/2022 [facility] DE PT PATH AND Count K/UL 6:08 PM LAB MEDICINE HEATING WORKER Anatomical Location / Laterality Collection Method / Volume Juvenal ection Time Received Time Specimen (Source) BLOOD / Unknown 08/09/2022 5:30 PM HEATING WORKER 08/09/19 5:39 PM HEATING WORKER Yousuf Solis LABORATORY ORDERABLES Luis TODD City/State/ZIP Code Phone Number [place] [address] [facility] DEPT PATH AND [address] LAB MEDICINE * (ABNORMAL) HEMOGLOBIN A1C (08/09/2022 5:30 PM HEATING WORKER) Pathologist Signature Component Value Ref Test Method Analysis Performed A t Range Time Hemoglobin A1C 5.8 (H) 4.0 - 08/10/2022 [facility] DEPT PATH AND 5.7 % 12:13 PM LAB MEDICINE HEATING WORKER Comment: The ADA recommends that most patients with type 1 and type 2 diabetes maintain an A1c level <7%. Anatomical Location / Laterality Collection Method / Volume Juvenal ection Time Received Time Specimen (Source) BLOOD / Unknown 08/09/2022 5:30 PM HEATING WORKER 08/09/19 5:39 PM HEATING WORKER Yousuf Solis LABORATORY ORDERABLES Luis TODD [facility]/ZIP Code Phone Number [place] [address] [facility] DEPT PATH AND [address] LAB MEDICINE * IR ARTERIOGRAM NEURO (08/09/2022 5:04 PM HEATING WORKER) Modality Anatomical Region Laterality X-Ray Angiography Head Anatomical Location / Laterality Collection Method / Volume Juvenal ection Time Received Time Specimen (Source) 08/10/2022 12:02 PM HEATING WORKER Impressions 08/10/2022 12:15 PM HEATING WORKER 1. Occlusion of the superior division [...] 08/10/2022 12:02 PM. Narrative 08/10/2022 12:15 PM HEATING WORKER CLINICAL HISTORY: 77-year-old female with acute stroke left hemisphere, high NIHSS. Imaging demonstrates large vessel occlusion with large penumbra. The patient is brought to the angiography suite for mechanical thrombectomy. 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 Rony ANESTHESIA. General PROCEDURE. Left internal carotid [...] enter the common femoral artery. An 8 Martiniquais sheath was placed. All bubbles were meticulously withdrawn and the sheath was carefully flushed and attached to continuous heparinized saline flush system. Similar attention was paid each subsequent sheath, catheter and/or microcatheter to maintain an air free system. A 125 cm VTK catheter was loaded inside a large bore 80-90cm length guide sheath. The construct was introduced through the 8 Martiniquais sheath. The VTK catheter was navigated over [...] 3. Procedure Note Markus Uribe MD - 02/10/2023 CLINICAL HISTORY: 77-year-old female with acute stroke left hemisphere, high NIHSS. Imaging demonstrates large vessel occlusion with large penumbra. The patient is brought to the angiography suite for mechanical thrombectomy. 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 Rony ANESTHESIA. General PROCEDURE. Left internal carotid [...] enter the common femoral artery. An 8 Martiniquais sheath was placed. All bubbles were meticulously withdrawn and the sheath was carefully flushed and attached to continuous heparinized saline flush system. Similar attention was paid each subsequent sheath, catheter and/or microcatheter to maintain an air free system. A 125 cm VTK catheter was loaded inside a large bore 80-90cm length guide sheath. The construct was introduced through the 8 Martiniquais sheath. The VTK catheter was navigated over [...] 08/10/2022 12:02 PM. Yousuf Solis IR ORDERABLES Luis TODD * TELEMETRY STRIPS-SCAN (08/09/2022 12:00 AM HEATING WORKER) Narrative 08/09/2022 12:00 AM HEATING WORKER Ordered by an unspecified provider. Scanned Document PROCEDURE DUMMY ORDERS * TELEMETRY STRIPS-SCAN (08/09/2022 12:00 AM HEATING WORKER) Narrative 08/09/2022 12:00 AM HEATING WORKER Ordered by an unspecified provider. Scanned Document PROCEDURE DUMMY ORDERS * TELEMETRY STRIPS-SCAN (08/09/2022 12:00 AM HEATING WORKER) Narrative 08/09/2022 12:00 AM HEATING WORKER Ordered by an unspecified provider. Scanned Document PROCEDURE DUMMY ORDERS * TELEMETRY STRIPS-SCAN (08/09/2022 12:00 AM HEATING WORKER) Narrative 08/09/2022 12:00 AM HEATING WORKER Ordered by an unspecified provider. Scanned Document PROCEDURE DUMMY ORDERS * TELEMETRY STRIPS-SCAN (08/09/2022 12:00 AM HEATING WORKER) Narrative 08/09/2022 12:00 AM HEATING WORKER Ordered by an unspecified provider. Scanned Document PROCEDURE DUMMY ORDERS * TELEMETRY STRIPS-SCAN (08/09/2022 12:00 AM HEATING WORKER) Narrative 08/09/2022 12:00 AM HEATING WORKER Ordered by an unspecified provider. Scanned Document PROCEDURE DUMMY ORDERS * TELEMETRY STRIPS-SCAN (08/09/2022 12:00 AM HEATING WORKER) Narrative 08/09/2022 12:00 AM HEATING WORKER Ordered by an unspecified provider. Scanned Document PROCEDURE DUMMY ORDERS documented in this encounter Visit Diagnoses Diagnosis Acute ischemic left MCA stroke (HCC) - Primary Unspecified cerebral artery occlusion w ith cerebral infarction Acute right hemiparesis (HCC) Hemiplegia, unspecified, affecting unsp ecified side Global aphasia Aphasia Primary hypertension Unspecified essential hypertension Hypothyroidism, unspecified type documented in this encounter Admitting Diagnoses Diagnosis Acute ischemic left MCA stroke (HCC) Unspecified cerebral artery occlusion w ith cerebral infarction documented in this encounter Administered Medications Action Date Dose Rate Site Medication Order MAR Action 08/20/2022 5:11 PM HEATING WORKER 1,000 mg 400 mL/hr acetaminophen (OFIRMEV) 1,000 mg Given - New injection 100 mL Bag 1,000 mg, Intravenous, 100 mL, Administer over 15 Minutes, ONCE, 1 dose, On 08/20/22 at 1800 08/15/2022 12:01 AM HEATING WORKER 650 mg acetaminophen (TYLENOL) tablet 650 mg Given 650 mg, Oral, EVERY 4 HOURS PRN, Starting on 08/11/22 at 0618, Until 08/19/22 at 0816, Pain non-opioid: may be used alone or in combination wit h opioid analgesia, TOTAL ACETAMINOPHEN DOSE NOT TO EXCEED 4GM DAILY 650 mg Given 08/12/2022 4:25 PM HEATING WORKER 650 mg Given 08/11/2022 4:17 PM HEATING WORKER acetaminophen (TYLENOL) tablet 650 mg 650 mg, PEG Tube, EVERY 4 HOURS PRN, Starting on Tu08/21/22 at 0940, Until Sat08/24/22 at 1333, Pain non-opioid: may be used alone or in combination wit h opioid analgesia, TOTAL ACETAMINOPHEN DOSE NOT TO EXCEED 4GM DAILY 08/21/2022 8:26 AM HEATING WORKER 10 mg amLODIPine (NORVASC) tablet 10 mg Given 10 mg, Per NG tube, DAILY, First dose o n Sat08/10/22 at 0900, Until Discontinued , NURSING: Please educate patient and document: Do not give with grapefruit juice. 10 mg Given 08/20/2022 9:30 AM HEATING WORKER 10 mg Given 08/19/2022 8:42 AM HEATING WORKER 10 mg Given 08/18/2022 9:11 AM HEATING WORKER 10 mg Given 08/17/2022 9:57 AM HEATING WORKER 10 mg Given 08/16/2022 8:15 AM HEATING WORKER 10 mg Given 08/15/2022 9:59 AM HEATING WORKER 10 mg Given 08/14/2022 10:41 AM HEATING WORKER 10 mg Given 08/13/2022 8:33 AM HEATING WORKER 10 mg Given 08/12/2022 8:43 AM HEATING WORKER 10 mg Given 08/11/2022 8:26 AM HEATING WORKER 10 mg Given 08/10/2022 10:06 AM HEATING WORKER 08/24/2022 9:30 AM HEATING WORKER 10 mg amLODIPine (NORVASC) tablet 10 mg Given 10 mg, PEG Tube, DAILY, First dose (after last modification) on Sat 3 at 0900, Until Discontinued, NURSING: Please educate patient and document: Do not give with grapefruit juice. 10 mg Given 08/23/2022 9:11 AM HEATING WORKER 10 mg Given 08/22/2022 9:16 AM HEATING WORKER 08/21/2022 8:26 AM HEATING WORKER 5 mg apixaban (ELIQUIS) tablet 5 mg Given 5 mg, Per NG tube, TWICE DAILY, First dose (after last modification) on Sat08/21/22 at 0900, Until Discontinued, If patient unable to swallow whole tablets , may crush 5mg or 2.5mg tablets and suspend in 60mL of water, D5W, or apple juice or mix with applesauce; administe r immediately. For delivery through a nasogastric tube, crushed tablets maybe suspended in 60mL of water or D5W followed immediately by delivery. NOTE: This is a HIGH ALERT Medication. 08/24/2022 9:30 AM HEATING WORKER 5 mg apixaban (ELIQUIS) tablet 5 mg Given 5 mg, SEE ADMIN INSTRUCTIONS, TWICE DAILY, First dose (after last modification) on Sat08/21/22 at 2100, Until Discontinued, If patient unable t o swallow whole tablets, may crush 5mg or 2.5mg tablets and suspend in 60mL of water, D5W, or apple juice or mix with applesauce; administer immediately. Administer via PEG tube - For delivery through a gastric tube, crushed tablets maybe suspended in 60mL of water or D5W followed immediately by delivery. NOTE: This is a HIGH ALERT Medication. 5 mg Given 08/23/2022 8:26 PM HEATING WORKER 5 mg Given 08/23/2022 9:10 AM HEATING WORKER 5 mg Given 08/22/2022 8:03 PM HEATING WORKER 5 mg Given 08/22/2022 9:16 AM HEATING WORKER 5 mg Given 08/21/2022 8:57 PM HEATING WORKER 08/21/2022 8:26 AM HEATING WORKER 81 mg aspirin chewable tablet 81 mg Given 81 mg, Per NG tube, DAILY, First dose o n 08/19/22 at 0915, Until Discontinued 81 mg Given 08/19/2022 10:13 AM HEATING WORKER 08/24/2022 9:30 AM HEATING WORKER 81 mg aspirin chewable tablet 81 mg Given 81 mg, PEG Tube, DAILY, First dose (after last modification) on Sat 3 at 0900, Until Discontinued 81 mg Given 08/23/2022 9:10 AM HEATING WORKER 81 mg Given 08/22/2022 9:17 AM HEATING WORKER 08/18/2022 9:11 AM HEATING WORKER 81 mg aspirin EC tablet 81 mg Given 81 mg, Oral, DAILY, First dose on Sat08/10/22 at 1000, Until Discontinued 81 mg Given 08/17/2022 9:52 AM HEATING WORKER 81 mg Given 08/16/2022 8:16 AM HEATING WORKER 81 mg Given 08/15/2022 9:59 AM HEATING WORKER 81 mg Given 08/14/2022 10:40 AM HEATING WORKER 81 mg Given 08/13/2022 8:32 AM HEATING WORKER 81 mg Given 08/12/2022 8:42 AM HEATING WORKER 81 mg Given 08/11/2022 8:26 AM HEATING WORKER 81 mg Given 08/10/2022 10:07 AM HEATING WORKER 08/21/2022 8:26 AM HEATING WORKER 80 mg atorvastatin (LIPITOR) tablet 80 mg Given 80 mg, Per NG tube, DAILY, First dose o n Yumiko 08/09/22 at 1915, Until Discontinued 80 mg Given 08/20/2022 9:30 AM HEATING WORKER 80 mg Given 08/19/2022 8:43 AM HEATING WORKER 80 mg Given 08/18/2022 9:11 AM HEATING WORKER 80 mg Given 08/17/2022 9:52 AM HEATING WORKER 80 mg Given 08/16/2022 8:15 AM HEATING WORKER 80 mg Given 08/15/2022 9:59 AM HEATING WORKER 80 mg Given 08/14/2022 10:40 AM HEATING WORKER 80 mg Given 08/13/2022 8:32 AM HEATING WORKER 80 mg Given 08/12/2022 8:42 AM HEATING WORKER 80 mg Given 08/11/2022 8:26 AM HEATING WORKER 80 mg Given 08/10/2022 10:06 AM HEATING WORKER 08/24/2022 9:30 AM HEATING WORKER 80 mg atorvastatin (LIPITOR) tablet 80 mg Given 80 mg, PEG Tube, DAILY, First dose (after last modification) on Sat 3 at 0900, Until Discontinued 80 mg Given 08/23/2022 9:11 AM HEATING WORKER 80 mg Given 08/22/2022 9:16 AM HEATING WORKER 08/20/2022 8:50 AM HEATING WORKER 5 mL barium sulfate 40 % (VARIBAR THIN Given LIQUID) oral powder for suspension 10 m L 10 mL, Oral, ONCE, 1 dose, On Sat08/20/22 at 0845, Mixing Instructions: 1 . Gently shake the barium sulfate to loosen the powder. 2. Remove Cap. Add water to the 40% (w/v) line and replace the cap. 3. Invert bottle and tap with fingers to mix the powder into the water. 4. Shake vigorously for 30 seconds. Let stand for 5 minutes. 5. Suspension has hydrated and settled. Re-fill with water to the 40% line and replace cap. 6. Re-shake thoroughly. Product is now ready for use., GI Procedure Area Only 08/24/2022 10:07 AM HEATING WORKER 6.25 mg carvediloL (COREG) tablet 6.25 mg Given 6.25 mg, PEG Tube, TWICE DAILY, First dose on Sat08/24/22 at 1030, Until Discontinued, Hold for heart rate < 60 bpm or systolic BP < 100 08/13/2022 8:48 AM HEATING WORKER 1 g cefTRIAXone (ROCEPHIN) IVP 1 g Given 1 g, Intravenous, EVERY 24 HOURS, 5 doses, First dose on Sat08/11/22 at 0945, Last dose on Sat08/15/22 at 0945, INSTR: IV PUSH -- RECONSTITUTE EACH 1 G M WITH 10 MLS of 0.9% NACL (NS) or STERIL E WATER (SW) or DEXTROSE 5% (D5W) 1 g Given 08/12/2022 8:46 AM HEATING WORKER 1 g Given 08/11/2022 10:03 AM HEATING WORKER 08/24/2022 9:30 AM HEATING WORKER 15 mL chlorhexidine gluconate (PERIDEX) 0.12 % Given solution 15 mL 15 mL, Swish & Spit, TWICE DAILY, First dose on [facility] 08/09/22 at 2000, Until Discontinued 15 mL Given 08/23/2022 8:28 PM HEATING WORKER 15 mL Given 08/23/2022 8:20 AM HEATING WORKER 15 mL Given 08/22/2022 8:03 PM HEATING WORKER 15 mL Given 08/22/2022 9:18 AM HEATING WORKER 15 mL Given 08/21/2022 8:57 PM HEATING WORKER 15 mL Given 08/21/2022 8:27 AM HEATING WORKER 15 mL Given 08/20/2022 9:29 PM HEATING WORKER 15 mL Given 08/20/2022 9:18 AM HEATING WORKER 15 mL Given 08/19/2022 9:07 PM HEATING WORKER 15 mL Given 08/19/2022 8:43 AM HEATING WORKER 15 mL Given 08/18/2022 8:32 PM HEATING WORKER 15 mL Given 08/18/2022 9:10 AM HEATING WORKER 15 mL Given 08/17/2022 8:32 PM HEATING WORKER 15 mL Given 08/17/2022 9:54 AM HEATING WORKER 15 mL Given 08/16/2022 8:56 PM HEATING WORKER 15 mL Given 08/16/2022 8:16 AM HEATING WORKER 15 mL Given 08/15/2022 9:08 PM HEATING WORKER 15 mL Given 08/15/2022 10:07 AM HEATING WORKER 15 mL Given 08/13/2022 9:00 PM HEATING WORKER 15 mL Given 08/13/2022 8:32 AM HEATING WORKER 15 mL Given 08/12/2022 9:04 PM HEATING WORKER 15 mL Given 08/12/2022 8:42 AM HEATING WORKER 15 mL Given 08/11/2022 8:58 PM HEATING WORKER 15 mL Given 08/11/2022 8:26 AM HEATING WORKER 15 mL Given 08/10/2022 8:17 PM HEATING WORKER 15 mL Given 08/10/2022 10:06 AM HEATING WORKER 15 mL Given 08/09/2022 8:42 PM HEATING WORKER 08/14/2022 10:41 AM HEATING WORKER 75 mg clopiDOGreL (PLAVIX) tablet 75 mg Given 75 mg, Per NG tube, DAILY, First dose o n 08/12/22 at 0930, Until Discontinued , This Medication can increase the risk o f bleeding and may need to be held prior to surgery or invasive procedures. Consult physician in advance. 75 mg Given 08/13/2022 8:32 AM HEATING WORKER 75 mg Given 08/12/2022 10:15 AM HEATING WORKER 08/20/2022 4:09 PM HEATING WORKER 30 mL diatrizoate meglumine & sodium 66-10 % Given (BYRON) oral solution 30 mL 30 mL, Oral, ONCE, 1 dose, On 08/20/22 at 1615, GI Procedure Area Only 08/11/2022 8:29 AM HEATING WORKER 55 mL/hr Diet Critical Care Enteral Feeding Dose/Rate Volume Based Infusion Change CONTINUOUS, Starting on 08/10/22 at 1415, Until 08/11/22 at 0842, Please see DIET CRITICAL CARE TABLE REFERENCE (below DIET section) for 4 hr and 24 hr goal calculations. Volume based feedin g is restricted to the ICU. At 0800 daily return the rate to Infusion Goal Rate. Then, every 4hrs readjust rate to achieve the 24hr goal as follows: Step 1: 24 hr. volume goal - volume delivere d since 0801 = X volume left to be infuse d Step 2: X volume left to be infused / remaining hours in day until next 0800= Y Step 3: Y = new hourly rate for next 4 hours (Minimum rate = infusion goal rate, Maximum = 120 ml/hr.) 55 each Given - New Bag 08/10/2022 11:10 PM HEATING WORKER Given - New Bag 08/10/2022 8:16 PM HEATING WORKER 40 mL/hr Dose/Rate Change 08/10/2022 6:30 PM HEATING WORKER 20 mL/hr Dose/Rate Verify 08/10/2022 4:04 PM HEATING WORKER 08/13/2022 7:59 AM HEATING WORKER 55 mL/hr Diet Critical Care Enteral Feeding Dose/Rate Volume Based Infusion Change CONTINUOUS, Starting on 08/11/22 at 0845, Until 08/13/22 at 1228, Please see DIET CRITICAL CARE TABLE REFERENCE (below DIET section) for 4 hr and 24 hr goal calculations. Volume based feedin g is restricted to the ICU. At 0800 daily return the rate to Infusion Goal Rate. Then, every 4hrs readjust rate to achieve the 24hr goal as follows: Step 1: 24 hr. volume goal - volume delivere d since 0801 = X volume left to be infuse d Step 2: X volume left to be infused / remaining hours in day until next 0800= Y Step 3: Y = new hourly rate for next 4 hours (Minimum rate = infusion goal rate, Maximum = 120 ml/hr.) 55 mL/hr Infusion Restarted 08/13/2022 7:56 AM HEATING WORKER 41 mL/hr Dose/Rate Change 08/13/2022 5:24 AM HEATING WORKER 46 mL/hr Dose/Rate Change 08/13/2022 12:01 AM HEATING WORKER Given - New Bag 08/12/2022 9:20 PM HEATING WORKER 68 mL/hr Dose/Rate Change 08/12/2022 4:30 AM HEATING WORKER 62 mL/hr Dose/Rate Change 08/12/2022 12:47 AM HEATING WORKER 59 mL/hr Dose/Rate Change 08/11/2022 3:47 PM HEATING WORKER 58 mL/hr Dose/Rate Change 08/11/2022 12:00 PM HEATING WORKER 55 mL/hr Given - New Bag 08/11/2022 8:54 AM HEATING WORKER 08/10/2022 12:24 PM HEATING WORKER 20 mL/hr Diet Enteral Feeding Standard Infusion Given - New CONTINUOUS, Starting on Sat08/10/22 at Bag 1115, Until Sat08/10/22 at 1406, Recommended standard infusion: Continuous feeding, full strength at 20 mL/hr. Increase by 20 mL/hr every 6 hours until specified goal rate reached . 08/14/2022 2:46 PM HEATING WORKER 20 mL/hr Diet Enteral Feeding Standard Infusion Infusion CONTINUOUS, Starting on Sat08/13/22 at Restarted 1245, Until Sat08/15/22 at 1008, Recommended standard infusion: Continuous feeding, full strength at 20 mL/hr. Increase by 20 mL/hr every 6 hours until specified goal rate reached . 60 mL/hr Given - New Bag 08/13/2022 12:42 PM HEATING WORKER 08/24/2022 1:12 PM HEATING WORKER Diet Enteral Feeding Standard Infusion Dose/Rate CONTINUOUS, Starting on Sat08/15/22 at Verify 1015, Until Sat08/24/22 at 1333, Recommended standard infusion: Continuous feeding, full strength at 20 mL/hr. Increase by 20 mL/hr every 6 hours until specified goal rate reached . Dose/Rate Verify 08/24/2022 9:29 AM HEATING WORKER 65 mL/hr Given - New Bag 08/24/2022 6:41 AM HEATING WORKER Given - New Bag 08/23/2022 1:47 PM HEATING WORKER 65 mL/hr Given - New Bag 08/22/2022 6:22 PM HEATING WORKER 20 mL/hr Given - New Bag 08/21/2022 4:55 PM HEATING WORKER Given - New Bag 08/19/2022 9:17 PM HEATING WORKER Given - New Bag 08/19/2022 12:10 AM HEATING WORKER 65 mL/hr Given - New Bag 08/18/2022 3:31 AM HEATING WORKER 65 mL/hr Given - New Bag 08/16/2022 6:12 PM HEATING WORKER 60 mL/hr Given - New Bag 08/16/2022 3:52 AM HEATING WORKER 40 mL/hr Given - New Bag 08/15/2022 10:03 PM HEATING WORKER 20 mL/hr Given - New Bag 08/15/2022 4:35 PM HEATING WORKER 08/18/2022 9:10 AM HEATING WORKER 50 mg docusate sodium (COLACE) oral solution Given 50 mg 50 mg, Oral, TWICE DAILY, First dose on 08/11/22 at 1015, Until Discontinued , Hold for loose stools 50 mg Given 08/17/2022 8:24 PM HEATING WORKER 50 mg Given 08/17/2022 9:53 AM HEATING WORKER 50 mg Given 08/16/2022 8:56 PM HEATING WORKER 50 mg Given 08/16/2022 8:16 AM HEATING WORKER 50 mg Given 08/15/2022 9:08 PM HEATING WORKER 50 mg Given 08/15/2022 9:56 AM HEATING WORKER 50 mg Given 08/14/2022 9:55 PM HEATING WORKER 50 mg Given 08/14/2022 10:41 AM HEATING WORKER 50 mg Given 08/13/2022 8:32 AM HEATING WORKER 50 mg Given 08/12/2022 9:06 PM HEATING WORKER 50 mg Given 08/12/2022 8:42 AM HEATING WORKER 50 mg Given 08/11/2022 9:08 PM HEATING WORKER 50 mg Given 08/11/2022 10:03 AM HEATING WORKER 08/21/2022 8:25 AM HEATING WORKER 50 mg docusate sodium (COLACE) oral solution Given 50 mg 50 mg, Per NG tube, TWICE DAILY, First dose (after last modification) on Sat08/19/22 at 0900, Until Discontinued, Hold for loose stools 50 mg Given 08/19/2022 8:43 AM HEATING WORKER 08/23/2022 8:26 PM HEATING WORKER 50 mg docusate sodium (COLACE) oral solution Given 50 mg 50 mg, PEG Tube, TWICE DAILY, First dos e (after last modification) on Sat 3 at 2100, Until Discontinued, Hold for loose stools 50 mg Given 08/22/2022 8:02 PM HEATING WORKER 50 mg Given 08/22/2022 9:17 AM HEATING WORKER 50 mg Given 08/21/2022 8:56 PM HEATING WORKER 08/21/2022 8:26 AM HEATING WORKER 1 mg doxazosin (CARDURA) tablet 1 mg Given 1 mg, Per NG tube, DAILY, First dose on Sat08/13/22 at 1600, Until Discontinued , Hold for systolic BP < 90 1 mg Given 08/20/2022 9:30 AM HEATING WORKER 1 mg Given 08/19/2022 8:42 AM HEATING WORKER 1 mg Given 08/18/2022 9:11 AM HEATING WORKER 1 mg Given 08/17/2022 9:52 AM HEATING WORKER 1 mg Given 08/16/2022 8:15 AM HEATING WORKER 1 mg Given 08/15/2022 9:58 AM HEATING WORKER 1 mg Given 08/14/2022 10:41 AM HEATING WORKER 1 mg Given 08/13/2022 3:42 PM HEATING WORKER 08/24/2022 9:30 AM HEATING WORKER 1 mg doxazosin (CARDURA) tablet 1 mg Given 1 mg, PEG Tube, DAILY, First dose (afte r last modification) on Sat08/22/22 at 0900, Until Discontinued, Hold for systolic BP < 90 1 mg Given 08/23/2022 9:10 AM HEATING WORKER 1 mg Given 08/22/2022 9:16 AM HEATING WORKER emollient (ELTA) topical cream Topical, NEEDED, Starting on Sat08/12/22 at 1315, Until Sat08/24/22 at 1333, Dry Skin, Apply to rash on back 08/24/2022 10:07 AM HEATING WORKER 0.5 inches erythromycin (ROMYCIN) ophthalmic Given ointment 0.5 inch 0.5 inch, Both Eyes, THREE TIMES DAILY, 21 doses, First dose on Sat08/19/22 at 1200, Last dose on [facility] 08/25/22 at 2100 0.5 inches Given 08/23/2022 8:27 PM HEATING WORKER 0.5 inches Given 08/23/2022 2:47 PM HEATING WORKER 0.5 inches Given 08/23/2022 9:11 AM HEATING WORKER 0.5 inches Given 08/22/2022 8:03 PM HEATING WORKER 0.5 inches Given 08/22/2022 2:31 PM HEATING WORKER 0.5 inches Given 08/22/2022 9:18 AM HEATING WORKER 0.5 inches Given 08/21/2022 8:57 PM HEATING WORKER 0.5 inches Given 08/21/2022 3:18 PM HEATING WORKER 0.5 inches Given 08/21/2022 10:19 AM HEATING WORKER 0.5 inches Given 08/20/2022 9:29 PM HEATING WORKER 0.5 inches Given 08/20/2022 9:37 AM HEATING WORKER 0.5 inches Given 08/19/2022 9:07 PM HEATING WORKER 0.5 inches Given 08/19/2022 2:38 PM HEATING WORKER 0.5 inches Given 08/19/2022 12:19 PM HEATING WORKER 08/10/2022 10:06 AM HEATING WORKER 20 mg famotidine (PEPCID) injection 20 mg Given 20 mg, Intravenous, DAILY, First dose (after last modification) on [place] 08/09/22 at 2100, Until Discontinued, DILUTE W/ 10ML NS OR D5W. GIVE IV PUSH OVER 2 MIN 20 mg Given 08/09/2022 8:42 PM HEATING WORKER 08/14/2022 5:07 AM HEATING WORKER 25 mcg fentaNYL citrate PF (SUBLIMAZE) Given injection 25 mcg 25 mcg, Intravenous, ONCE, 1 dose, On 08/14/22 at 0530 08/19/2022 9:07 PM HEATING WORKER 5,000 Units Abdomina l Tissue heparin (porcine) PF syringe 5,000 Units Given 5,000 Units, Subcutaneous, EVERY 8 HOURS, First dose (after last modification) on [place] 08/12/22 at 1400, Until Discontinued, NOTE: This is a HIG H ALERT Medication. 5,000 Units Abdominal Tissue Given 08/19/2022 2:38 PM HEATING WORKER 5,000 Units Abdominal Tissue Given 08/19/2022 5:38 AM HEATING WORKER 5,000 Units Abdominal Tissue Given 08/18/2022 10:06 PM HEATING WORKER 5,000 Units Abdomen:LLQ Given 08/18/2022 2:47 PM HEATING WORKER 5,000 Units Abdominal Tissue Given 08/18/2022 5:36 AM HEATING WORKER 5,000 Units Abdominal Tissue Given 08/17/2022 9:34 PM HEATING WORKER 5,000 Units Abdominal Tissue Given 08/17/2022 4:56 PM HEATING WORKER 5,000 Units Abdominal Tissue Given 08/17/2022 5:51 AM HEATING WORKER 5,000 Units Abdominal Tissue Given 08/16/2022 8:56 PM HEATING WORKER 5,000 Units Arm, Left Given 08/16/2022 3:04 PM HEATING WORKER 5,000 Units Abdominal Tissue Given 08/16/2022 6:29 AM HEATING WORKER 5,000 Units Abdominal Tissue Given 08/15/2022 9:08 PM HEATING WORKER 5,000 Units Abdomen:RLQ Given 08/15/2022 4:32 PM HEATING WORKER 5,000 Units Abdominal Tissue Given 08/14/2022 5:48 PM HEATING WORKER 5,000 Units Abdomen:RLQ Given 08/13/2022 9:58 PM HEATING WORKER 5,000 Units Arm, Left Given 08/13/2022 2:10 PM HEATING WORKER 5,000 Units Abdominal Tissue Given 08/13/2022 6:15 AM HEATING WORKER 5,000 Units Abdominal Tissue Given 08/12/2022 9:04 PM HEATING WORKER 5,000 Units Abdominal Tissue Given 08/12/2022 2:45 PM HEATING WORKER 08/20/2022 9:29 PM HEATING WORKER 5,000 Units Arm, Rig ht heparin (porcine) PF syringe 5,000 Units Given 5,000 Units, Subcutaneous, EVERY 8 HOURS, 2 doses, First dose (after last modification) on Sat08/20/22 at 1400, Last dose on Sat08/20/22 at 2200, NOTE: This is a HIGH ALERT Medication. 08/14/2022 7:00 PM HEATING WORKER 25 mg hydrOXYzine HCL (ATARAX) tablet 25 mg Given 25 mg, Per NG tube, ONCE, 1 dose, On Tu e 08/14/22 at 1930 08/09/2022 5:12 PM HEATING WORKER 75 mL iohexoL (OMNIPAQUE-300) 300 mg/mL Given injection 75 mL 75 mL, Intra-arterial, ONCE, 1 dose, On [place] 08/09/22 at 1715, NOTE: This is a HIG H ALERT Medication. 08/11/2022 4:45 AM HEATING WORKER 75 mL iohexoL (OMNIPAQUE-350) 350 mg/mL Given injection 75 mL 75 mL, Intravenous, ONCE, 1 dose, On Sa t 08/11/22 at 0500, NOTE: This is a HIGH ALERT Medication. 08/11/2022 6:08 AM HEATING WORKER 10 mg labetaloL (NORMODYNE) injection 10 mg Given 10 mg, Intravenous, EVERY 1 HOUR PRN, Starting on [place] 08/09/22 at 1812, Until 08/11/22 at 0620, Systolic Blood Pressure..., > 140, Hold for heart rate < 60 bpm 10 mg Given 08/11/2022 3:01 AM HEATING WORKER 10 mg Given 08/11/2022 1:06 AM HEATING WORKER 10 mg Given 08/10/2022 8:21 PM HEATING WORKER 10 mg Given 08/09/2022 6:50 PM HEATING WORKER 08/14/2022 4:09 AM HEATING WORKER 10 mg labetaloL (NORMODYNE) injection 10 mg Given 10 mg, Intravenous, EVERY 1 HOUR PRN, Starting on Sat08/11/22 at 0620, Until Sat08/14/22 at 0752, Systolic Blood Pressure..., for SBP >160, Hold for heart rate < 60 bpm 10 mg Given 08/13/2022 3:27 PM HEATING WORKER 10 mg Given 08/12/2022 4:25 PM HEATING WORKER 10 mg Given 08/12/2022 4:51 AM HEATING WORKER 10 mg Given 08/11/2022 4:17 PM HEATING WORKER 08/18/2022 7:35 PM HEATING WORKER 10 mg labetaloL (NORMODYNE) injection 10 mg Given 10 mg, Intravenous, EVERY 6 HOURS PRN, Starting on Sat08/14/22 at 0800, Until Sat08/24/22 at 1333, Systolic Blood Pressure..., SBP > 160, Hold for heart rate < 60 bpm LABETALOL 5 MG/ML IV SYRG (Cabinet Override) NOW, 1 dose, On [place] 08/09/22 at 1900, Created by cabinet override, Created by cabinet override 08/09/2022 10:45 PM HEATING WORKER 250 mL 999 mL/hr lactated ringers infusion Given - New 1,000 mL, 250 mL, Intravenous, at 999 Bag mL/hr, BOLUS, 1 dose, On [place] 08/09/22 at 2245 08/09/2022 10:30 PM HEATING WORKER 250 mL 250 mL/hr lactated ringers infusion Given - New 1,000 mL, 250 mL, Intravenous, at 250 Bag mL/hr, ONCE, 1 dose, On [place] 08/09/22 at 2330 08/11/2022 9:07 AM HEATING WORKER 500 mL 999 mL/hr lactated ringers infusion Given - New 1,000 mL, 500 mL, Intravenous, at 999 Bag mL/hr, BOLUS, 1 dose, On Sat08/11/22 at 0845 08/10/2022 1:05 AM HEATING WORKER 1,000 mg levETIRAcetam (KEPPRA) IV push 1,000 mg Given 1,000 mg, Intravenous, 10 mL, ONCE, 1 dose, On Sat08/10/22 at 0130, IV Push should be administered over 1 minute fo r every 500mg. 08/14/2022 9:56 PM HEATING WORKER 500 mg levETIRAcetam (KEPPRA) IV push 500 mg Given 500 mg, Intravenous, 5 mL, TWICE DAILY, First dose on [place] 08/09/22 at 2100, Until Discontinued, IV Push should be administered over 1 minute for every 500mg. 500 mg Given 08/14/2022 10:42 AM HEATING WORKER 500 mg Given 08/13/2022 9:57 PM HEATING WORKER 500 mg Given 08/13/2022 8:33 AM HEATING WORKER 500 mg Given 08/12/2022 9:04 PM HEATING WORKER 500 mg Given 08/12/2022 8:42 AM HEATING WORKER 500 mg Given 08/11/2022 9:09 PM HEATING WORKER 500 mg Given 08/11/2022 8:26 AM HEATING WORKER 500 mg Given 08/10/2022 8:17 PM HEATING WORKER 500 mg Given 08/10/2022 10:06 AM HEATING WORKER 500 mg Given 08/09/2022 8:42 PM HEATING WORKER 08/20/2022 9:29 PM HEATING WORKER 500 mg levETIRAcetam (KEPPRA) IV push 500 mg Given 500 mg, Intravenous, 5 mL, ONCE, 1 dose , On Sat08/20/22 at 2130, IV Push should be administered over 1 minute for every 500mg. 08/18/2022 8:32 PM HEATING WORKER 500 mg levETIRAcetam (KEPPRA) oral solution 500 Given mg 500 mg, Oral, TWICE DAILY, First dose o n 08/15/22 at 0930, Until Discontinued 500 mg Given 08/18/2022 11:33 AM HEATING WORKER 500 mg Given 08/17/2022 8:32 PM HEATING WORKER 500 mg Given 08/17/2022 9:59 AM HEATING WORKER 500 mg Given 08/16/2022 8:55 PM HEATING WORKER 500 mg Given 08/16/2022 10:32 AM HEATING WORKER 500 mg Given 08/15/2022 9:16 PM HEATING WORKER 500 mg Given 08/15/2022 10:07 AM HEATING WORKER 08/20/2022 9:29 AM HEATING WORKER 500 mg levETIRAcetam (KEPPRA) oral solution 500 Given mg 500 mg, Per NG tube, TWICE DAILY, First dose (after last modification) on Sat08/19/22 at 0900, Until Discontinued 500 mg Given 08/19/2022 9:06 PM HEATING WORKER 500 mg Given 08/19/2022 8:43 AM HEATING WORKER 08/21/2022 8:25 AM HEATING WORKER 500 mg levETIRAcetam (KEPPRA) oral solution 500 Given mg 500 mg, Per NG tube, TWICE DAILY, First dose (after last modification) on Sat08/21/22 at 0900, Until Discontinued 08/24/2022 10:07 AM HEATING WORKER 500 mg levETIRAcetam (KEPPRA) oral solution 500 Given mg 500 mg, PEG Tube, TWICE DAILY, First dose (after last modification) on Sat08/21/22 at 2100, Until Discontinued 500 mg Given 08/23/2022 10:05 PM HEATING WORKER 500 mg Given 08/23/2022 9:29 AM HEATING WORKER 500 mg Given 08/22/2022 8:02 PM HEATING WORKER 500 mg Given 08/22/2022 9:23 AM HEATING WORKER 500 mg Given 08/21/2022 8:57 PM HEATING WORKER 08/20/2022 9:29 AM HEATING WORKER 112 mcg levothyroxine (SYNTHROID) tablet 112 mcg Given 112 mcg, Per NG tube, DAILY, First dose on Sat08/10/22 at 0700, Until Discontinued, Give 1 hour before a meal . If patient is receiving tube feedings, hold tube feed 1hr before and 1hr after dose. 112 mcg Given 08/19/2022 6:38 AM HEATING WORKER 112 mcg Given 08/18/2022 7:34 AM HEATING WORKER 112 mcg Given 08/17/2022 5:51 AM HEATING WORKER 112 mcg Given 08/16/2022 6:29 AM HEATING WORKER 112 mcg Given 08/14/2022 10:48 AM HEATING WORKER 112 mcg Given 08/13/2022 6:15 AM HEATING WORKER 112 mcg Given 08/12/2022 6:54 AM HEATING WORKER 112 mcg Given 08/11/2022 6:08 AM HEATING WORKER 112 mcg Given 08/10/2022 6:33 AM HEATING WORKER 08/24/2022 9:31 AM HEATING WORKER 125 mcg levothyroxine (SYNTHROID) tablet 125 mcg Given 125 mcg, PEG Tube, DAILY, First dose (after last modification) on Sat 3 at 0945, Until Discontinued, Give 1 gladis r before a meal. If patient is receiving tube feedings, hold tube feed 1hr befor e and 1hr after dose. 125 mcg Given 08/23/2022 6:44 AM HEATING WORKER 125 mcg Given 08/22/2022 6:25 AM HEATING WORKER 08/09/2022 6:50 PM HEATING WORKER 1 g 25 mL/hr magnesium sulfate 1 g/D5W 100 mL IVPB Given - New 1 g, Intravenous, 100 mL, Administer Bag over 3-4 Hours, NEEDED, Starting on [place] 08/09/22 at 1554, Until 08/12/22 a t 1222, Other..., magnesium replacement (see admin instructions), If urine output < 30 mL/hr, SCr >2 mg/dL, check with physician prior to giving magnesiu m replacement. For Serum Magnesium > 2.1 mg/dL, No replacement necessary. For Serum Magnesium 1.8 - 2.0 mg/dL, give Magnesium Sulfate 1 grams IV over 4 hours. For Serum Magnesium 1.6 - 1.7 mg/dL, give Magnesium Sulfate 2 grams I V over 8 hours (each 1gm over 4 hours). For Serum Magnesium 1.3 - 1.5 mg/dL, give Magnesium Sulfate 4 grams IV over 16 hours (each 1gm over 4 hours). For Serum Magnesium < = 1.2 mg/dL, give Magnesium Sulfate 6 grams IV over 18 hours (each 1gm over 3 hours). Recheck serum magnesium level 24 hours after START of appropriate replacement dose. Repeat this standing order x 1. Notify physician if serum magnesium < 2.1 mg/d L after two replacements., Admission/Obs/Extended Recovery 08/18/2022 8:29 PM HEATING WORKER 5 mg melatonin tablet 5 mg Given 5 mg, Oral, AT BEDTIME DAILY, First dos e on Sat08/16/22 at 2100, Until Discontinued 5 mg Given 08/17/2022 8:24 PM HEATING WORKER 5 mg Given 08/16/2022 8:56 PM HEATING WORKER 08/19/2022 9:06 PM HEATING WORKER 5 mg melatonin tablet 5 mg Given 5 mg, Per NG tube, AT BEDTIME DAILY, First dose (after last modification) on Sat08/19/22 at 2100, Until Discontinued 08/23/2022 8:26 PM HEATING WORKER 5 mg melatonin tablet 5 mg Given 5 mg, PEG Tube, AT BEDTIME DAILY, First dose (after last modification) on Sat08/21/22 at 2100, Until Discontinued 5 mg Given 08/22/2022 8:03 PM HEATING WORKER 5 mg Given 08/21/2022 8:57 PM HEATING WORKER 08/18/2022 9:10 AM HEATING WORKER 30 mL milk of magnesium oral suspension 30 mL Given 30 mL, Oral, DAILY, First dose on Sat08/09/22 at 1600, Until Discontinued, May hold if BM within 24 hours of dose., Admission/Obs/Extended Recovery 30 mL Given 08/17/2022 9:53 AM HEATING WORKER 30 mL Given 08/16/2022 8:16 AM HEATING WORKER 30 mL Given 08/14/2022 10:42 AM HEATING WORKER 30 mL Given 08/12/2022 8:42 AM HEATING WORKER 30 mL Given 08/11/2022 8:26 AM HEATING WORKER 08/21/2022 8:26 AM HEATING WORKER 30 mL milk of magnesium oral suspension 30 mL Given 30 mL, Per NG tube, DAILY, First dose (after last modification) on Sat 3 at 0900, Until Discontinued, May hold i f BM within 24 hours of dose., Admission/Obs/Extended Recovery 30 mL Given 08/19/2022 8:43 AM HEATING WORKER 08/22/2022 9:18 AM HEATING WORKER 30 mL milk of magnesium oral suspension 30 mL Given 30 mL, PEG Tube, DAILY, First dose (after last modification) on Sat 3 at 0900, Until Discontinued, May hold i f BM within 24 hours of dose., Admission/Obs/Extended Recovery pancrelipase 20,880 Units/sodium bicarbonate 650 mg (KU CLOG DESTROYER) Feeding Tube, 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 Crush one pancrelipase 20,880 unit tablet and one sodium bicarbonate 650 mg tablet. 2. Dissolve in 20 ml luke warm water. This will take ~ 1-2 minutes, with stirring required. Some sediment may be present . 3. Once dissolved, let solution sit for 1-2 minutes, 4. Draw enzyme/bicarbonat e solution into oral syringe (avoid sediment as best possible). 5. Instill enzyme solution under light pressure, and use a light "back and forth" motion with plunger to help dislodge the clog. 6. Clamp the tube for 5-15 minutes, and then try to aspirate or flush with warm sterile water. May repeat x 1. Notify physician if tube remains occluded following administration. 08/10/2022 8:00 AM HEATING WORKER 3 Diluted mL perflutren lipid microspheres (DEFINITY) Given injection 1-10 Diluted mL 1-10 Diluted mL, Intravenous, ONCE PRN, 1 dose, Starting on Sat08/10/22 at 0644 , Until Sat08/10/22 at 0800, For Procedure, A shift production associate may only administer Definity through a saline lock. If IV is in use or a port, PICC, or central line is being used a nurse must administer. NOTE: This is a HIGH ALERT Medication., MAC Procedure Area Only - Medications 08/11/2022 3:00 AM HEATING WORKER 4.5 g 33 mL/hr piperacillin/tazobactam (ZOSYN) 4.5 g in Given - New sodium chloride 0.9% (NS) 100 mL IVPB Bag (MB+)(EXTENDED INFUSION) 4.5 g, Intravenous, 100 mL, Administer over 3 Hours, EVERY 6 HOURS, First dos e on 08/11/22 at 0330, Until Discontinued 08/10/2022 11:06 PM HEATING WORKER 4.5 g 200 mL/hr piperacillin/tazobactam (ZOSYN) 4.5 g in Given - New sodium chloride 0.9% (NS) 100 mL IVPB Bag (MB+) 4.5 g, Intravenous, 100 mL, Administer over 30 Minutes, ONCE, 1 dose, On Sat08/10/22 at 2130 08/09/2022 7:37 PM HEATING WORKER 40 mcg/kg/min propofoL (DIPRIVAN) 10 mg/mL IV drip Dose/Rate 5-70 mcg/kg/min Change Intravenous, TITRATE DIRECTED , Starting on [place] 08/09/22 at 1715, Until [place] 08/09/22 at 1954, Initial rate: 5-20 mcg/kg/min Titrate to keep: RASS of 0 to -2 Titrate by 5-10 mcg/kg/min every 5 minutes as needed to maintain desired clinical response. During urgent/emergent situations can titrate every 1 minute to achieve desired clinical response. During spontaneous awakening trial, titrate sedation as pe r the Sedation, Analgesia, and Delirium ICU Multidisciplinary Patient Care Guideline. Std conc = 10 mg/mL NOTE: This is a HIGH ALERT Medication. 30 mcg/kg/min Given - New Bag 08/09/2022 6:06 PM HEATING WORKER 08/10/2022 5:00 AM HEATING WORKER 30 mcg/kg/min 17.5 mL/hr propofoL (DIPRIVAN) 10 mg/mL IV drip Dose/Rate 5-70 mcg/kg/min Change 97.4 kg (2.922-40.908 mL/hr, rounded to 2.9-40.9 mL/hr) 100 mL, Intravenous, TITRATE DIRECTED , Starting on [place] 08/09/22 at 2000, Until Sat08/10/22 at 1325, Initia l rate: 5-20 mcg/kg/min Titrate to keep: RASS of 0 to -2 Titrate by 5-10 mcg/kg/min every 5 minutes as needed to maintain desired clinical response. During urgent/emergent situations can titrate every 1 minute to achieve desired clinical response. During spontaneous awakening trial, titrate sedation as per the Sedation, Analgesia , and Delirium ICU Multidisciplinary Patient Care Guideline. Std conc = 10 mg/mL NOTE: This is a HIGH ALERT Medication. 40 mcg/kg/min 23.4 mL/hr Given - New Bag 08/10/2022 3:56 AM HEATING WORKER 40 mcg/kg/min 23.4 mL/hr Dose/Rate Change 08/10/2022 1:43 AM HEATING WORKER 50 mcg/kg/min 29.2 mL/hr Given - New Bag 08/10/2022 1:04 AM HEATING WORKER 50 mcg/kg/min 29.2 mL/hr Given - New Bag 08/09/2022 8:42 PM HEATING WORKER 50 mcg/kg/min 29.2 mL/hr Given - New Bag 08/09/2022 7:54 PM HEATING WORKER PROPOFOL 10 MG/ML IV EMUL (Cabinet Override) NOW, 1 dose, On [place] 08/09/22 at 1715, Created by cabinet override Std conc = 10 mg/mL NOTE: This is a HIGH ALERT Medication. , Created by cabinet override 08/13/2022 8:33 AM HEATING WORKER Protein Supplement Packets Given DAILY, First dose on Sat08/10/22 at 1415, Until Discontinued, Allergies on file: Patient has no known allergies. 1 each Given 08/12/2022 9:17 AM HEATING WORKER Given 08/11/2022 8:26 AM HEATING WORKER Given 08/10/2022 4:04 PM HEATING WORKER 08/15/2022 11:06 PM HEATING WORKER 50 mg QUEtiapine (SEROquel) tablet 50 mg Given 50 mg, Oral, ONCE, 1 dose, On Sat08/15/22 at 2345 08/15/2022 11:06 AM HEATING WORKER 11.8 millicuries RP DX F-18 FDG injection 10 millicurie Given 10 millicurie, Intravenous, ONCE, 1 dose, On Sat08/15/22 at 1130 08/18/2022 9:10 AM HEATING WORKER 8.8 mg senna (SENOKOT) oral syrup 8.8 mg Given 8.8 mg, Per NG tube, TWICE DAILY, First dose on 08/11/22 at 1015, Until Discontinued, Hold for loose stools 8.8 mg Given 08/17/2022 8:32 PM HEATING WORKER 8.8 mg Given 08/17/2022 9:56 AM HEATING WORKER 8.8 mg Given 08/16/2022 8:56 PM HEATING WORKER 8.8 mg Given 08/16/2022 8:16 AM HEATING WORKER 8.8 mg Given 08/15/2022 9:08 PM HEATING WORKER 8.8 mg Given 08/15/2022 9:57 AM HEATING WORKER 8.8 mg Given 08/14/2022 9:55 PM HEATING WORKER 8.8 mg Given 08/14/2022 10:41 AM HEATING WORKER 8.8 mg Given 08/13/2022 8:32 AM HEATING WORKER 8.8 mg Given 08/12/2022 9:04 PM HEATING WORKER 8.8 mg Given 08/12/2022 8:42 AM HEATING WORKER 8.8 mg Given 08/11/2022 9:08 PM HEATING WORKER 8.8 mg Given 08/11/2022 10:03 AM HEATING WORKER 08/21/2022 8:26 AM HEATING WORKER 8.8 mg senna (SENOKOT) oral syrup 8.8 mg Given 8.8 mg, Per NG tube, TWICE DAILY, First dose (after last modification) on Sat08/19/22 at 0900, Until Discontinued, Hold for loose stools 8.8 mg Given 08/19/2022 8:43 AM HEATING WORKER 08/24/2022 9:30 AM HEATING WORKER 8.8 mg senna (SENOKOT) oral syrup 8.8 mg Given 8.8 mg, PEG Tube, TWICE DAILY, First dose (after last modification) on Sat08/21/22 at 2100, Until Discontinued, Hold for loose stools 8.8 mg Given 08/23/2022 8:27 PM HEATING WORKER 8.8 mg Given 08/22/2022 8:02 PM HEATING WORKER 8.8 mg Given 08/22/2022 9:17 AM HEATING WORKER 8.8 mg Given 08/21/2022 8:56 PM HEATING WORKER 08/10/2022 9:00 PM HEATING WORKER 1 tablet senna/docusate (SENOKOT-S) tablet 1 Given tablet 1 tablet, Per NG tube, TWICE DAILY, First dose (after last modification) on [place] 08/09/22 at 2100, Until Discontinued, Hold for loose stools. If patient unabl e to take tablet, give 10 mL of senna/docusate (SENOKOT-S) solution. Send inbasket message to pharmacy., If patient unable to take tablet, give 10 mL of senna/docusate (SENOKOT-S) solution., Admission/Obs/Extended Recovery 1 tablet Given 08/10/2022 10:06 AM HEATING WORKER 08/09/2022 6:44 PM HEATING WORKER 50 mL/hr sodium chloride 0.9 % infusion Given - New 1,000 mL, Intravenous, at 50 mL/hr, Bag CONTINUOUS, Starting on Yumiko 08/09/22 at 1715, Until Sat08/10/22 at 1328 08/11/2022 4:45 AM HEATING WORKER 50 mL sodium chloride PF 0.9% injection 50 mL Given 50 mL, Intravenous, ONCE, 1 dose, On Sa t 08/11/22 at 0500, DO NOT SEND this medication unless it is requested. This med is usually available in floor stock., Intra-procedure (IR) 08/19/2022 9:07 PM HEATING WORKER 25 mg traZODone (DESYREL) tablet 25 mg Given 25 mg, Per NG tube, AT BEDTIME PRN, Starting on 08/19/22 at 0815, Until Sat08/21/22 at 0941, Insomnia traZODone (DESYREL) tablet 25 mg 25 mg, PEG Tube, AT BEDTIME PRN, Starting on Tu08/21/22 at 0940, Until Sat08/24/22 at 1333, Insomnia 08/10/2022 11:07 PM HEATING WORKER 2,000 mg 145 mL/hr vancomycin (VANCOCIN) 2,000 mg in sodium Given - New chloride 0.9% (NS) 290 mL IVPB Bag 2,000 mg, Intravenous, 290 mL, Administer over 120 Minutes, ONCE, 1 dose, On Sat08/10/22 at 2215, Note Pharmacokinetic Monitoring: Please record infusion start time (Action= Given) and stop time (Action= Completed ) of dose when blood levels are drawn. documented in this encounter Discontinued Medications Start Date End Date Medication Sig Discontinue Reason 08/09/2022 lisinopriL (ZESTRIL) 20 Take 20 mg Removed from mg tablet by mouth ASSEMBLY PERSON Med List daily. 08/11/2022 levothyroxine (SYNTHROID) Take 112 mcg Removed from 112 mcg tablet by mouth ASSEMBLY PERSON Med List daily 30 minutes before breakfast. 08/24/2022 clopiDOGreL (PLAVIX) 75 Take 75 mg mg tablet by mouth daily. 08/24/2022 multivitamin (ONE-A-DAY) Take 1 tablet tablet by mouth daily. 08/24/2022 fish oil- omega 3-DHA/EPA Take 1 300/1,000 mg capsule capsule by mouth daily. 08/24/2022 cetirizine (ZYRTEC) 10 mg Take 10 mg tablet by mouth daily. 08/24/2022 CHOLEcalciferoL (vitamin Take 5,000 D3) (VITAMIN D3) 5000 Units by unit tablet mouth daily. 10/25/2021 08/24/2022 lisinopriL (ZESTRIL) 20 Take 20 mg mg tablet by mouth daily. 08/24/2022 aspirin EC 81 mg tablet Take 81 mg by mouth daily. Take with food. 08/24/2022 allopurinoL (ZYLOPRIM) Take 50 mg Reorder 100 mg tablet by mouth daily. Take with food. 08/24/2022 amLODIPine (NORVASC) 10 Take 10 mg Reorder mg tablet by mouth daily. 08/24/2022 atorvastatin (LIPITOR) 80 Take 80 mg Reorder mg tablet by mouth daily. 08/24/2022 levETIRAcetam (KEPPRA) Take 500 mg Reorder 500 mg tablet by mouth twice daily. 08/24/2022 melatonin 5 mg chew Chew 5 mg by Reorder mouth at bedtime daily. 08/24/2022 levothyroxine (SYNTHROID) Take 125 mcg Reorder 125 mcg tablet by mouth daily 30 minutes before breakfast. documented as of this encounter Historical Medications * This list may reflect changes made after this encounter. Start Date End Date Medication Sig Dispensed Refills 08/24/2022 levothyroxine (SYNTHROID) Take 125 mcg 0 125 mcg tablet by mouth daily 30 minutes before breakfast. 10/25/2021 08/24/2022 lisinopriL (ZESTRIL) 20 Take 20 mg by 0 mg tablet mouth daily. 08/24/2022 melatonin 5 mg chew Chew 5 mg by 0 mouth at bedtime daily. 08/24/2022 CHOLEcalciferoL (vitamin Take 5,000 0 D3) (VITAMIN D3) 5000 Units by unit tablet mouth daily. 08/24/2022 cetirizine (ZYRTEC) 10 mg Take 10 mg by 0 tablet mouth daily. 08/24/2022 levETIRAcetam (KEPPRA) Take 500 mg 0 500 mg tablet by mouth twice daily. 08/24/2022 fish oil- omega 3-DHA/EPA Take 1 0 300/1,000 mg capsule capsule by mouth daily. 08/24/2022 multivitamin (ONE-A-DAY) Take 1 tablet 0 tablet by mouth daily. 08/09/2022 lisinopriL (ZESTRIL) 20 Take 20 mg by 0 mg tablet mouth daily. 08/11/2022 levothyroxine (SYNTHROID) Take 112 mcg 0 112 mcg tablet by mouth daily 30 minutes before breakfast. 08/24/2022 clopiDOGreL (PLAVIX) 75 Take 75 mg by 0 mg tablet mouth daily. 08/24/2022 atorvastatin (LIPITOR) 80 Take 80 mg by 0 mg tablet mouth daily. 08/24/2022 aspirin EC 81 mg tablet Take 81 mg by 0 mouth daily. Take with food. 08/24/2022 amLODIPine (NORVASC) 10 Take 10 mg by 0 mg tablet mouth daily. 08/24/2022 allopurinoL (ZYLOPRIM) Take 50 mg by 0 100 mg tablet mouth daily. Take with food. added in this encounter Active and Recently Administered Medications Times are shown in HEATING WORKER. 08/23/2022 08/24/2022 Medication Order 08/22/2022 0911 (Given - Provider: Ron Mccormick RN ) 0930 (Given - Provider: Elizabeth Martínez , ROSENDO) amLODIPine (NORVASC) tablet 10 mg 0916 (Given - 10 mg, PEG Tube, DAILY, First dose Provider: Louise (after last modification) on Sat08/22/22 ROSENDO Morales ) at 0900, Until Discontinued, NURSING: Please educate patient and document: Do not give with grapefruit juice. 0910 (Given - Provider: Ron Mccormick RN )2025 (Given - Provider: Jackie Alcantara RN) 0930 (Given - Provider: Elizabeth Martínez , ROSENDO) apixaban (ELIQUIS) tablet 5 mg 0916 (Given - 5 mg, SEE ADMIN INSTRUCTIONS, TWICE Provider: Louise DAILY, First dose (after last ROSENDO Morales)2003 modification) on Sat08/21/22 at 2100, (Given - Provi liane: Until Discontinued, If patient unable to Amelia Axlund, swallow whole tablets, may crush 5mg copy supervisor) 2.5mg tablets and suspend in 60mL of water, D5W, or apple juice or mix with applesauce; administer immediately. Administer via PEG tube - For delivery through a gastric tube, crushed tablets maybe suspended in 60mL of water or D5W followed immediately by delivery. NOTE: This is a HIGH ALERT Medication. 0910 (Given - Provider: Ron Mccormick, ROSENDO ) 0930 (Given - Provider: Elizabeth Martínez , ROSENDO) aspirin chewable tablet 81 mg 0917 (Given - 81 mg, PEG Tube, DAILY, First dose Provider: Louise (after last modification) on Sat08/22/22 ROSENDO Morales ) at 0900, Until Discontinued 0911 (Given - Provider: Ron Mccormick RN ) 0930 (Given - Provider: Elizabeth Martínez , ROSENDO) atorvastatin (LIPITOR) tablet 80 mg 0916 (Given - 80 mg, PEG Tube, DAILY, First dose Provider: Louise (after last modification) on Sat08/22/22 ROSENDO Morales ) at 0900, Until Discontinued 1007 (Given - Provider: Elizabeth Martínez , ROSENDO) carvediloL (COREG) tablet 6.25 mg 6.25 mg, PEG Tube, TWICE DAILY, First dose on Sat08/24/22 at 1030, Until Discontinued, Hold for heart rate < 60 bpm or systolic BP < 100 0820 (Given - Provider: Ron Mccormick RN )2027 (Given - Provider: Jackie Alcantara, ROSENDO) 0930 (Given - Provider: Elizabeth Martínez , ROSENDO) chlorhexidine gluconate (PERIDEX) 0.12 % 0918 (Given - solution 15 mL Provider: Louise 15 mL, Swish & Spit, TWICE DAILY, First Andrew RN) 2002 dose on Sat08/09/22 at 2000, Until (Given - Provider: Discontinued Amelia Ulloa RN) 0912 (Med Not Given - Provider: Ron doran RN - Reason: Loose stools)2025 (Given - Provider: Jackie Alcantara, ROSENDO) 0931 (Med Not Given - Provider: Elizabeth Martínez RN - Reason: Order parameters not met) docusate sodium (COLACE) oral solution 0917 (Given - 50 mg(Linked Group 1) Provider: Louise 50 mg, PEG Tube, TWICE DAILY, First dose ROSENDO Morales )2001 (after last modification) on Sat08/21/22 (Given - Pr ovider: at 2100, Until Discontinued, Hold for Amelia Iggy und, loose stools RN) 0910 (Given - Provider: Ron Mccormick, ROSENDO ) 0930 (Given - Provider: Elizabeth Martínez , RN) doxazosin (CARDURA) tablet 1 mg 0916 (Given - 1 mg, PEG Tube, DAILY, First dose (after Provider: Blayne garcia last modification) on Sat08/22/22 at ROSENDO Morales) 0900, Until Discontinued, Hold for systolic BP < 90 0911 (Given - Provider: Ron Mccormick RN )1447 (Given - Provider: Ron Mccormick RN)2026 (Given - Provider: Jackie Alcantara, ROSENDO) 1007 (Given - Provider: Elizabeth Martínez , RN) erythromycin (ROMYCIN) ophthalmic 0918 (Given - ointment 0.5 inch Provider: Louise 0.5 inch, Both Eyes, THREE TIMES DAILY, ROSENDO Morales) 1431 21 doses, First dose on 08/19/22 at (Given - Prov ider: 1200, Last dose on 08/25/22 at 2100 Louise Morales RN)2002 (Given - Provider: Amelia Ulloa, ROSENDO) 09 (Given - Provider: Ron Mccormick, ROSENDO )220 (Given - Provider: Jackie Alcantara, ROSENDO) 1007 (Given - Provider: Elizabeth Martínez , ROSENDO) levETIRAcetam (KEPPRA) oral solution 500 0923 (Given - mg Provider: Louise 500 mg, PEG Tube, TWICE DAILY, First ROSENDO Morales)200 2 dose (after last modification) on Sat (Given - Provi liane: 08/21/22 at 2100, Until Discontinued Amelia haynes RN) 0644 (Given - Provider: Amelia haynes RN) 0931 (Given - Provider: Elizabeth Martínez , ROSENDO) levothyroxine (SYNTHROID) tablet 125 mcg 06 (Given - 125 mcg, PEG Tube, DAILY, First dose Provider: Shira (after last modification) on Sat08/21/22 ROSENDO Smith) at 0945, Until Discontinued, Give 1 gladis r before a meal. If patient is receiving tube feedings, hold tube feed 1hr befor e and 1hr after dose. 2025 (Given - Provider: Zeus Voss N) melatonin tablet 5 mg 2002 (Given - 5 mg, PEG Tube, AT BEDTIME DAILY, First Provider: Arturo cleveland dose (after last modification) on Sat ROSENDO Ulloa) 08/21/22 at 2100, Until Discontinued 910 (Med Not Given - Provider: Ron doran RN - Reason: Order parameters not met) 930 (Med Not Given - Provider: Elizabeth Martínez RN - Reason: Order parameters not met) milk of magnesium oral suspension 30 mL 917 (Given - 30 mL, PEG Tube, DAILY, First dose Provider: Louise (after last modification) on Sat08/22/22 ROSENDO Morales ) at 0900, Until Discontinued, May hold i f BM within 24 hours of dose., Admission/Obs/Extended Recovery 910 (Med Not Given - Provider: Ron doran RN - Reason: Loose stools)2026 (Given - Provider: Jackie Alcantara RN) 929 (Given - Provider: Elizabeth Martínez RN) senna (SENOKOT) oral syrup 8.8 mg(Linked 916 (Given - Group 1) Provider: Louise 8.8 mg, PEG Tube, TWICE DAILY, First ROSENDO Morales)200 2 dose (after last modification) on Sat (Given - Provi liane: 08/21/22 at 2100, Until Discontinued, Amelia Axlu nd, Hold for loose stools RN) 08/23/2022 08/24/2022 Medication Order 08/22/2022 1347 (Given - New Bag - Provider: Ron rocha RN - Comment: New Tubing) 0641 (Given - New Bag - Provider: Jackie Alcantara RN)0929 (Dose/Rate Verify - Provider: Elizabeth Martínez RN)1312 (Dose/Rate Verify - Provider: Elizabeth Martínez RN) Diet Enteral Feeding Standard Infusion 182 (Given - New CONTINUOUS, Starting on Sat08/15/22 at Bag - Provide r: 1015, Until Sat08/24/22 at 1333, Louise Morales RN) Recommended standard infusion: Continuous feeding, full strength at 20 mL/hr. Increase by 20 mL/hr every 6 hours until specified goal rate reached . 08/23/2022 08/24/2022 Medication Order 08/22/2022 acetaminophen (TYLENOL) tablet 650 mg 650 mg, PEG Tube, EVERY 4 HOURS PRN, Starting on Sat08/21/22 at 0940, Until Sat08/24/22 at 1333, Pain non-opioid: may be used alone or in combination wit h opioid analgesia, TOTAL ACETAMINOPHEN DOSE NOT TO EXCEED 4GM DAILY emollient (ELTA) topical cream Topical, NEEDED, Starting on Sat08/12/22 at 1315, Until Sat08/24/22 at 1333, Dry Skin, Apply to rash on back labetaloL (NORMODYNE) injection 10 mg 10 mg, Intravenous, EVERY 6 HOURS PRN, Starting on Sat08/14/22 at 0800, Until Sat08/24/22 at 1333, Systolic Blood Pressure..., SBP > 160, Hold for heart rate < 60 bpm pancrelipase 20,880 Units/sodium bicarbonate 650 mg (KU CLOG DESTROYER) Feeding Tube, 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 Crush one pancrelipase 20,880 unit tablet and one sodium bicarbonate 650 mg tablet. 2. Dissolve in 20 ml luke warm water. This will take ~ 1-2 minutes, with stirring required. Some sediment may be present . 3. Once dissolved, let solution sit for 1-2 minutes, 4. Draw enzyme/bicarbonat e solution into oral syringe (avoid sediment as best possible). 5. Instill enzyme solution under light pressure, and use a light "back and forth" motion with plunger to help dislodge the clog. 6. Clamp the tube for 5-15 minutes, and then try to aspirate or flush with warm sterile water. May repeat x 1. Notify physician if tube remains occluded following administration. traZODone (DESYREL) tablet 25 mg 25 mg, PEG Tube, AT BEDTIME PRN, Starting on Sat08/21/22 at 0940, Until Sat08/24/22 at 1333, Insomnia Order Group 1: senna (SENOKOT) oral syrup 8.8 mgJump t o med 8.8 mg, PEG Tube, TWICE DAILY, First do se (after last modification) on Sat08/21/22 at 2100, Until Discontinued
Hold for loose stools<b r> And docusate sodium (COLACE) oral solution 50 mgJump to med 50 mg, PEG Tube, TWICE DAILY, First dos e (after last modification) on Sat08/21/22 at 2100, Until Discontinued
Hold for loose stools<b r> documented in this encounter Orders First Ordered Date Medications Ordered That Might Not Have Count Last Ordered Date Been Administered 08/19/2022 acetaminophen (TYLENOL) tablet 650 mg 2 08/21/2022 08/16/2022 traZODone (DESYREL) tablet 25 mg 2 08/21 apixaban (ELIQUIS) tablet 5 mg 1 023 flumazeniL (ROMAZICON) injection 0.2 mg 1 08/20/2022 levothyroxine (SYNTHROID) tablet 125 mcg 1 08/20/2022 midazolam (VERSED) injection 1 mg 1 08/02 nalOXone (NARCAN) injection 0.08 mg 1 sodium chloride 0.9 % infusion 1 08/20 hydrOXYzine HCL (ATARAX) oral syrup 25 1 08/14/2022 mg hydrOXYzine HCL (ATARAX) tablet 25 mg 2 08/14/2022 Diet Enteral Feeding Standard Infusion 1 08/13/2022 tamsulosin (FLOMAX) capsule 0.4 mg 1 emollient (ELTA) topical cream 1 023 heparin (porcine) PF syringe 5,000 Units 1 08/12/2022 pancrelipase 20,880 Units/sodium 1 08/10 bicarbonate 650 mg (KU CLOG DESTROYER) piperacillin/tazobactam (ZOSYN) 4.5 g in 1 08/10/2022 sodium chloride 0.9% (NS) 100 mL IVPB (MB+) vancomycin (VANCOCIN) 1,495.5 mg in dextrose 5% (D5W) 329.91 mL IVPB (15-40 kg) vancomycin (VANCOCIN) in 0.9% sodium 1 0 08/10/2022 chloride IVPB 1,250 mg vancomycin, pharmacy to manage 1 023 calcium gluconate 1 g/NS 100 mL infusion 1 08/09/2022 docusate (COLACE) capsule 100 mg 1 08/09 famotidine (PEPCID) injection 20 mg 1 fentaNYL citrate PF (SUBLIMAZE) 1 2022 injection 25 mcg LACTATED RINGERS IV SOLP (Cabinet 1 03/2023 Override) potassium chloride in water IVPB 10 mEq 1 08/09/2022 potassium chloride oral solution 40-60 1 08/09/2022 mEq potassium chloride SR (K-DUR) tablet 1 0 08/09/2022 40-60 mEq senna/docusate (SENOKOT-S) tablet 1 1 tablet First Ordered Date Diet Count Last Ordered Date DISCHARGE DIET ENTERAL FEEDING 1 023 DISCHARGE DIET REGULAR 1 08/24/2022 First Ordered Date Nursing Count Last Ordered Date DISCHARGE ACTIVITY NORMAL 1 08/24/2022 DISCHARGE CONTACT 1 08/24/2022 DISCHARGE SIGNS/SYMPTOMS 1 08/24/2022 08/13/2022 NPO PRIOR TO PROCEDURE 2 08/20/2022 WEIGH PATIENT 1 08/15/2022 CONFIRM CONSENT OBTAINED 1 08/13/2022 DOCUMENT NIH STROKE SCALE 1 08/09/2022 NURSE COMMUNICATION 1 08/09/2022 PATIENT/FAMILY EDUCATION 1 08/09/2022 First Ordered Date Consult Count Last Ordered Date 08/10/2022 CONSULT DIETITIAN 3 08/13/2022 CONSULT INTERVENTIONAL RADIOLOGY 1 08/13 PHYSICIAN CONSULT REHABILITATION MEDICINE 1 2022 PHYSICIAN CONSULT INTERNAL MEDICINE PHYSICIAN 1 CONSULT OTOLARYNGOLOGY (ENT) PHYSICIAN 1 08/10/2022 First Ordered Date OT Count Last Ordered Date OT CONSULT OCCUPATIONAL THERAPY 1 2022 First Ordered Date PT Count Last Ordered Date PT CONSULT PHYSICAL THERAPY 1 08/09/2022 First Ordered Date CLINICAL RESEARCH SPEC Count Last Ordered Date CONSULT CLINICAL RESEARCH SPEC VIDEOSWALLOW EVAL & TX 1 CLINICAL RESEARCH SPEC CONSULT CLINICAL BEDSIDE SWALLOW 1 0 08/09/2022 EVAL & TX First Ordered Date Admission Count Last Ordered Date ADMIT TO INPATIENT (NO BED REQUEST) 1 First Ordered Date Discharge Count Last Ordered Date DISCHARGE PATIENT NOW 1 08/24/2022 First Ordered Date Equipment Count Last Ordered Date 08/16/2022 [facility] LASHANDA BED AIRFLOW PUMP 2 08/18/19 PUMP, FEEDING 1 08/10/2022 COMPRESSION DEVICE, LEG 1 08/09/2022 PUMP IV CONTROL UNIT W/MODULES 1 023 First Ordered Date Vital Signs Count Last Ordered Date VITAL SIGNS 1 08/20/2022 First Ordered Date Activity Count Last Ordered Date MOBILITY 1 08/09/2022 First Ordered Date Discharge Contingent Count Last Ordered Date DISCHARGE PATIENT CONTINGENT 1 First Ordered Date Tube Feeding Count Last Ordered Date SMALL BORE FEEDING TUBE PLACEMENT 1 03/2023 First Ordered Date SPECIALITY EQUIPMENT Count Last Ordered Date 08/11/2022 FAN 2 08/22/2022 COMMODE STANDARD 300LBS MAX 1 08/13/2022 First Ordered Date RT One-Time Procedures Count Last Ordered Da te EXTUBATE PATIENT 1 08/10/2022 First Ordered Date Nursing Task Count Last Ordered Date VERIFY TUBE MARKING (CM) 1 08/09/2022 First Ordered Date Intake & Output Count Last Ordered Date INTAKE AND OUTPUT 1 08/13/[address] & Maintain Count Last Ordered Date PLACE AND MAINTAIN SCD 1 08/09/2022 First Ordered Date ADT Patient Update Count Last Ordered Date 08/12/2022 CHANGE SERVICE / LEVEL OF CARE (NO BED 6 08/17/2022 REQUEST) documented in this encounter Additional Health Concerns Noted Time Assessment 08/24/2022 8:28 AM HEATING WORKER A fall risk assessment has been complet ed for the patient documented as of this encounter Care Teams Start Date End Date Administrative Office Assistant Relationship Specialty 08/09/22 08/26/22 No Pcp, Na PCP - General documented as of this encounter
--- OUTSIDE RECORDS SUMMARY | 2022-09-15 15:10 | XMS REPORT | Encounter Summary ---
Author Author [facility] Organization [facility] Address Unknown Phone Unavailable Care Team Providers Care Child Attendant Name Role Phone No Pcp, Na PCP Unavailable Reason for Visit * Reason Comments Ambulatory Cardiac Inpatient Enrollment 30 Day MCOT Monitor Placement Encounter Details Care Team Description Date Type Department Crista Martinez Ambulatory Surfacer Placement (In patient Enrollment 30 Day MCOT) 08/24/2022 Documentation Cardiology: [facility] [address], [address] [place] [address] Social History Date Tobacco Use Types Packs/Day Years Used Smoking Tobacco: Former Cigarettes Smokeless Tobacco: Never Comments Alcohol Use Standard Drinks/Week Not Currently 0 (1 standard drink = 0.6 o z pure alcohol) Sex Assigned at Date Recorded Not on file Date Recorded COVID-19 Exposure Response 08/10/2022 11:53 AM MANAGER PRODUCT DESIGN In the last 10 days, have you been in contact with N o / Unsure someone who was confirmed or suspected to have Coronavirus/COVID-19? documented as of this encounter Functional Status Date of Assessment Functional Status Response 08/10/2022 Does the patient have a hearing impairment: Yes documented as of this encounter Progress Notes * Juan Crista - 08/24/2022 12:14 PM CST Ambulatory (External) Surfacer Enrollment Record Placement Location: Inpatient Clinic Location: [facility] Vendor: [email or web address] ([employer]ioNet) Mobile Cardiac Telemetry (MCOT/MCT)?: Yes Duration of Monitor (in days): 30 Monitor Diagnosis: Cerebrovascular Accident (CVA) (I63.9) Secondary Monitor Diagnosis: Hypertension (I10) Ordering Provider: Rahim, Zhilwan K, DO AMB Monitor Serial Number: [id number] Start Time and Date: 08/24/22 12:16 PM Patient Name: Derek Church Jr. : [birth year] Sex: male Mobile (mobile) Patient [address]: [address] [place] [id number] Insurance Coverage: [employer] [place] Insurance Group #: [id number] Insurance Subscriber: DEREK CHURCH JR. Implanted Cardiac Device Information: No results found for: EPDEVTYP Patient instructed to contact company phone number on the monitor box with quest ions regarding billing, placement, troubleshooting. Crista Martinez Clinic Staff: In Follow-up, send chart upon closing encounter to P [facility]VM HRM [facility] Ambulatory Monitoring Team: 1. Schedule on appropriate template and check-in. Clinic Placement Schedule on clinic location HRM schedule Home Enrollment Schedule on Home Enrollment schedule ([facility]) Given to patient in clinic for self-placement Schedule on Home Enrollment schedu le ([facility]) Inpatient Schedule on [facility] AMBULATORY MONITORING template 2. Please enroll with appropriate vendor. GER PRODUCT DESIGN documented in this encounter Plan of Treatment Not on filedocumented as of this encounter Goals Goal Patient Associated Recent Progress Patient-Stat Aut hor Goal Type Problems ed? Remain independent Hospital Not on track Maki Hurt, (08/10/2022 11:58 AM ROSENDO Guillen MANAGER PRODUCT DESIGN) documented as of this encounter Visit Diagnoses Not on filedocumented in this encounter Additional Health Concerns Noted Time Assessment 08/24/2022 10:00 PM MANAGER PRODUCT DESIGN A fall risk assessment has been complet ed for the patient documented as of this encounter Care Teams Start Date End Date Child Attendant Relationship Specialty 08/09/22 08/26/22 No Pcp, Na PCP - General documented as of this encounter
--- OUTSIDE RECORDS SUMMARY | 2022-09-15 15:10 | XMS REPORT | Encounter Summary ---
Author Author [facility] Organization [facility] Address Unknown Phone Unavailable Care Team Providers [facility] Director Name Role Phone No Pcp, Na PCP Unavailable Nelson Calderon MD PCP Coni Nguyen NP PCP Reason for Referral * Consult, Test & Treat (Discharge Pending) - New Request Diagnoses / Procedures Referred By Contact Referred To [facility] Specialty Diagnoses Ischemic stroke (HCC) Procedures APPOINTMENT REQUEST: UROLOGY Esme Harkins MD [address] [place] [address] Rigo Patel MD [address] [facility] Lvl 2 2A [place] [id number] Urology Referral ID Status Reason Start Date Expiration Visits Vi sits Date Requested Authorized [id number] New Request 09/10/2022 09/10/2023 1 1 * Consult, Test & Treat (Discharge Pending) - Authorized Diagnoses / Procedures Referred By Contact Referred To [facility] Specialty Diagnoses Acute ischemic left MCA stroke (HCC) Procedures APPOINTMENT REQUEST: NEUROLOGY Esme Harkins MD [address] [place] [address] [facility] [address] [facility] [place] [address] Neurology Referral ID Status Reason Start Date Expiration Visits Vi sits Date Requested Authorized [id number] Authorized 09/03/2022 09/03/2023 1 1 ACE FIRER * Consult, Test & Treat (Discharge Pending) - New Request Diagnoses / Procedures Referred By Contact Referred To [facility] Specialty Diagnoses Acute ischemic left MCA stroke (HCC) Procedures APPOINTMENT REQUEST: PHYSICAL MEDICINE AND REHAB (PMR) Esme Harkins MD [address] [place] [address] [facility] [address] [address] Physical Medicine and Rehabilitation / Physical Medicine and Rehab Referral ID Status Reason Start Date Expiration Visits Vi sits Date Requested Authorized [id number] New Request 09/03/2022 09/03/2023 1 1 ACE FIRER Reason for Visit * Auth/Cert (Routine) Diagnoses / Procedures Referred By [facility] Acute ischemic left MCA stroke (HCC) Stroke Referral ID Status Reason Start Date Expiration Visits Vi sits Date Requested Authorized [id number] 1 1 Encounter Details Care Team Description Date Type Department Esme Harkins MD [address] [place] [address] Acute ischemic left MCA stroke (HCC) 08/24/2022 Hospital Rehabilitation: Acu te - Encounter Inpatient Rehabilit ation 09/14/2022 [facility]. [address] [phone] Social History Date Tobacco Use Types Packs/Day Years Used Smoking Tobacco: Former Cigarettes Smokeless Tobacco: Never Comments Alcohol Use Standard Drinks/Week Not Currently 0 (1 standard drink = 0.6 o z pure alcohol) Sex Assigned at Date Recorded Not on file Date Recorded COVID-19 Exposure Response 08/10/2022 11:53 AM FURNACE FIRER In the last 10 days, have you [...] 172.7 cm (5' 7.99") 08/24/2022 1:49 PM [employer]NACE [employer] Height 30.54 08/24/2022 1:49 PM FURNACE FIRER Body Mass Index documented in this encounter Functional Status Date of Assessment Functional Status Response 08/28/2022 Does the patient have a hearing impairment: Yes documented as of this encounter Discharge Summaries * Lashanda Ortega RN - 09/14/2022 1:28 PM CDT Case Management Progress Note NAME:Derek Castro Jr. :[birth year] AGE: 77 y.o. ADMISSION DATE: 08/24/2022 DAYS ADMITTED: LOS: 21 days Today's Date: 09/14/2022 PLAN: Discharge to home with family, TF and HH services Expected Discharge Date: 09/14/2022 Is Patient Medically Stable: Yes Are there Barriers to Discharge? no INTERVENTION/DISPOSITION: Discharge Planning Discharge Planning: Home Health, Home [facility] NCM reviewed EMR, patient expected to discharge to home today with family, HH services and enteral feedings with [facility] NCM met with patient's spouse at bedside, confirmed Isabel with [facility] had delive red some TF and rest of delivery will be made to home address. NCM answered ques tions from spouse regarding HH services and what they assist with and expected S [facility] Saturday, 09.17.22. Spouse asked about a hospital bed for home, NCM explained th at therapy did not recommend one, but they/family could obtain one on their own, spouse declined. NCM explained that therapy was not recommending any DME for christian peralta, spouse verbalized understanding NCM notified Jenny with [facility] of expected discharge of patient toda y, NCM sent signed HH orders/AVS via [employer]. 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 (ex: facility, ambulance, wheelchair/stretcher, Medicaid, cab, other): No Will the Patient Use Family Transport?: Yes Transportation Name, Phone and Availability #1: Son will transport home Support Info or Referral Medication Needs Financial Legal Other Discharge Disposition Selected Continued Care - Admitted Since 08/24/2022 Home Care Coordination complete. Service Provider Selected Services Address Phone Fax Patient Preferred [facility] [address] [place] [address] [facility] [address] [phone] -- Dialysis/Infusion Coordination complete. Service Provider Selected Services Address Phone Fax Patient Preferred [facility] Home Infusion and Injection [address] [facility] [id number] -- [place] * Rosa Wheeler MD - 09/13/2022 2:56 PM CDT Images from the original note were not included. Discharge Summary Name: Derek Castro Date Of : 1945 Age: 77 y.o. Admit date: 08/24/2022 Discharge date: 09/14/2022 Discharge Attending: Esme Harkins Discharge Summary Completed By: Rosa Wheeler MD Service: Rehab Medicine Reason for hospitalization: Acute ischemic left MCA stroke (HCC) [I63.512] Primary Discharge Diagnosis: Acute ischemic left MCA stroke (HCC) Hospital Diagnoses: Hospital Problems Active Problems * (Principal) Acute ischemic left MCA stroke (HCC) CAD (coronary artery disease) Stage 3b chronic kidney disease (HCC) Hyperlipidemia Primary hypertension Hypothyroidism Seizure disorder (HCC) History of multiple strokes Global aphasia Acute right hemiparesis (HCC) Impaired mobility and activities of daily living Risk for falls Significant Past Medical History CAD (coronary artery disease) Comment: s/p CABG x 5 CKD (chronic kidney disease) stage 3, GFR 30-59 ml/min (HCC) Deep vein thrombosis (DVT) of right lower extremity (HCC) Comment: s/p CABG Gout History of left NILA stroke History of right MCA stroke Hyperlipidemia Hypothyroidism Primary hypertension Seizure disorder (HCC) Allergies Patient has no known allergies. Brief Hospital Course The patient was admitted and the following issues were addressed during this hos pitalization: (with pertinent details including admission exam/imaging/labs). a 77 year oldmalewitha past medical historyof CAD s/p CABG , CKD, HTN, multiple ischemic CVAsin rigth NILA, MCA territories, Left parienta l lobe and bilateral cereberllar hemispheres(2019, May 2022, and Jul 2022)- christian peralta hasdinesh left sided ataxia, who wastransferred from OSH on 08/09 after be ing found slumped over by his . Patient was found to have left sided weaknes s, aphagia. OSH CT/CTA noted Left M2 occlusion. He was not a candidate for TNK r elated to recent ischemic stroke. Patient was transferred to [facility]-- underwen t thrombectomy with TICI 3. MRI with acute moderate L MCA territory infarct.He was extubated 08/10. Repeat CT head 08/10 with evolving moderate sided left MCA t erritory infarct, with slight increased in localized mass effect. Patient had co rpak placed initially and transitioned to PEG on 08/20 due to continued dysphagia .Patients hospital course has been complicated by dysphagia, leukocytosis, NEIL , cognitive impairment, global aphasia, as well as impaired mobility and activit ies of daily living. Admitted to inpatient rehab on 08/24/2022. Keppra and Apixaban were continued. Rehabilitation course was complicated by oral thrush, agitation, and hypotensi on. Thrush was treated and resolved with nystatin. Agitation was addressed with sleep hygiene, restarting sertraline on 08/30, trazodone, melatonin, and seroquel. Hypotension was managed with discontinuation of doxazosin and cardura, and decr eased dose of amlodipine to 5 mg daily. He trialed two voiding trials on 08/22 an d 08/29, but was unfortunately not successful. Lake catheter was replaced after l ast voiding trial. Patient has intermittent loose stools thought to be contribut ed by oral magnesium supplementation. Stool consistency improved with fiber supp lementation. He was started on baclofen nightly on 09/05 for left upper extremity spasticity. Patient's diet was upgraded to pureed with thin liquids after VFSS o n 09/13. On day of discharge, he was hemodynamically stable. Rehab QI: Evaluation QI Current QI Transfer: Sit to stand assist level: Moderate assistance Gait Distance: 100 feet (80' x 10) GAIT: Assist Level: Total assistance Gait: Assistive Device: ([place]) Stair: Assist Level: Not safe to attempt Grooming Assist: Maximum Assist Bathing Assist: Total Assist UE Dressing Assist: Total Assist LE Dressing Assist: Total Assist Toileting Assist: Total Assist Toilet Transfer Assist: Moderate assistance Patient continent of bladder?: Indwelling catheter or ostomy Patient continent of bowel?: No Transfer: Sit to stand assist level: Minimum assistance Gait Distance: 1000 feet (+ 200 feet) GAIT: Assist Level: Minimum assistance Gait: Assistive Device: None, Hand Hold Assist Stair: Assist Level: Two person assist Grooming Assist: Total Assist Bathing Assist: Shower, Total Assist UE Dressing Assist: Moderate Assist LE Dressing Assist: Maximum Assist Toileting Assist: Total Assist Toilet Transfer Assist: Maximum assistance Patient continent of bladder?: Indwelling catheter or ostomy Patient continent of bowel?: No PT recommended equipment: OT recommended equipment: Too early to determine Items Needing Follow Up Pending items or areas that need to be addressed at follow up: - Dysphagia resolution and discontinuation of PEG - LUE spasticity - Repeat CT chest 3 in months for incidental pulmonary nodules Pending Labs and Follow Up Radiology Pending labs and/or radiology review at this time of discharge are listed below: if this area is blank, there are no items for review. Medications Medication List START taking these medications apixaban 5 mg tablet; Commonly known as: ELIQUIS; Dose: 5 mg; Take one tablet by mouth twice daily.; Quantity: 180 tablet; Refills: 3 aspirin 81 mg chewable tablet; Dose: 81 mg; Chew one tablet by mouth daily. Take with food.; Quantity: 90 tablet; Refills: 1; Replaces: aspirin EC 81 mg tablet baclofen 5 mg tablet; Dose: 5 mg; Take one tablet by mouth at bedtime daily.; Quantity: 270 tablet; Refills: 1 famotidine 20 mg tablet; Commonly known as: PEPCID; Dose: 20 mg; Take one tablet by mouth daily.; Quantity: 180 tablet; Refills: 3 QUEtiapine 25 mg tablet; Commonly known as: SEROquel; Dose: 12.5 mg; Take one-half tablet by mouth at bedtime as needed.; Quantity: 60 tablet; Refills: 0 sertraline 50 mg tablet; Commonly known as: ZOLOFT; Dose: 50 mg; Take one tablet by mouth daily.; Quantity: 90 tablet; Refills: 0 simethicone 80 mg chew tablet; Commonly known as: MYLICON; Dose: 80 mg; Chew one tablet by mouth three times daily.; Quantity: 30 tablet; Refills: 3 traZODone 50 mg tablet; Commonly known as: DESYREL; Dose: 50 mg; Take one tablet by mouth at bedtime daily.; Quantity: 90 tablet; Refills: 0 vitamin A & D Oint; Apply topically to affected area as Needed (Promote skin healing).; Quantity: 113 g; Refills: 1 CHANGE how you take these medications amLODIPine 5 mg tablet; Commonly known as: NORVASC; Dose: 5 mg; Take one tablet by mouth daily.; Quantity: 90 tablet; Refills: 1; What changed: medication strength, how much to take melatonin 5 mg tablet; Dose: 5 mg; Take one tablet by mouth at bedtime daily.; Quantity: 90 tablet; Refills: 3; What changed: medication strength CONTINUE taking these medications atorvastatin 80 mg tablet; Commonly known as: LIPITOR; Dose: 80 mg; Take one tablet by mouth daily.; Quantity: 90 tablet; Refills: 1 levETIRAcetam 500 mg tablet; Commonly known as: KEPPRA; Dose: 500 mg; Take one tablet by mouth twice daily.; Quantity: 180 tablet; Refills: 3 levothyroxine 125 mcg tablet; Commonly known as: SYNTHROID; Dose: 125 mcg; Take one tablet by mouth daily 30 minutes before breakfast.; Quantity: 90 tablet; Refills: 3 STOP taking these medications allopurinoL 100 mg tablet; Commonly known as: ZYLOPRIM aspirin EC 81 mg tablet; Replaced by: aspirin 81 mg chewable tablet cetirizine 10 mg tablet; Commonly known as: ZyrTEC CHOLEcalciferoL (vitamin D3) 1,000 units tablet; Commonly known as: VITAMIN D3 clopiDOGreL 75 mg tablet; Commonly known as: PLAVIX fish oil- omega 3-DHA/EPA 300/1,000 mg capsule lisinopriL 20 mg tablet; Commonly known as: ZESTRIL MULTIVITAMIN PO Return Appointments and Scheduled Appointments Scheduled appointments: Oct 23, 2022 1:30 PM Office visit with Esme Harkins MD Rehabilitation Medicine: [facility] [place] [facility]) [address] [facility] [address] Dec 13, 2022 2:00 PM Office visit with Hernandez Paniagua DO Neurology: [facility] (Neurology) [address] [facility]. [facility] [phone] Contact information for after-discharge care [facility] Where: [address] [address] Service: Home Health Services [facility] Where: [address] [facility] [address] Service: Home Infusion and Injection Consults, Procedures, Diagnostics, Micro, Pathology Consults: Internal Medicine Surgical Procedures & Dates: None Significant Diagnostic Studies, Micro and Procedures: none Significant Pathology: noted in brief hospital course Wound: Wounds 08/30/222136 Moisture associated skin damage Groin;Scrotum (Active) 08/30/222136 Groin;Scrotum Wound Type: Moisture associated skin damage Pressure Injury Stages (For Pressure Injury Wound Type Only): Pressure Injury Present On Inpatient Admission: If this pressure injury is suspected to be device related, please select the dev ice:: Wound/Pressure Injury Orientation: Wound Location Comments: ZXWound Location: Wound Description (Comments): Wound Type:: Wound Dressing Status Open to air 09/13/22 1010 Wound Dressing and / or Treatment Barrier cream 09/13/22 1010 Wound Drainage Amount None 09/13/22 1010 Wound Base Assessment Clean;Moist;Mooar 09/13/22 1010 Surrounding Skin Assessment Dry;Intact 09/13/22 1010 Wound Site Closure Open to Air 09/13/22 1010 Number of days: 14 Wounds 09/10/22 1015 Skin tear Left Thigh (Active) 09/10/22 1015 Thigh Wound Type: Skin tear Pressure Injury Stages (For Pressure Injury Wound Type Only): Pressure Injury Present On Inpatient Admission: N If this pressure injury is suspected to be device related, please select the dev ice:: Wound/Pressure Injury Orientation: Left Wound Location Comments: ZXWound Location: Wound Description (Comments): Wound Type:: Image 09/11/22 1350 Wound Dressing Status Intact 09/13/22 1010 Wound Dressing and / or Treatment Silicone silver contact layer;Foam 09/11/22 13 50 Wound Drainage Amount None 09/13/22 1010 Wound Base Assessment Clean;Dry 09/13/22 1010 Surrounding Skin Assessment Dry;Intact 09/13/22 1010 Wound Site Closure Open to Air 09/13/22 1010 Number of days: 3 Discharge Disposition, Condition Patient Disposition: Home Health Care [facility] [06] Condition at Discharge: Stable Code Status Code Status History Date Active Date Inactive Code Status Order ID 08/09/2022205408/24/2022 1333 Full Code [id number] Phuong Vásquez, SUEDING MACHINE OPERATOR-ELECTRIC GAS APPLIANCES DEMONSTRATOR Inpatient 08/09/2022 1554 08/09/20222054 Full Code [id number] Silverio Suarez DO Inpatient Patient Instructions Dysphagia Diet You can find more information about your specific dysphagia diet level at www.i ddsi.org/Resources/Patient-Handouts. If you have additional questions about your diet after you go home, you can call a dietitian at [phone]. Food Consistency: Pureed- IDDSI 4 Drink Consistency: Thin- IDDSI 0 Tube Feeding Boluses of 3.5 cartons of NitroSecurity 1.4 daily. Boluses given as 1-1-1-0.5 cart ons/bolus with at least 3 hours between feeds. Provides 1592 kcals, 70 grams pro tein, and 819 ml free leigh. Additional water flushes of 100 mls before and aft er each bolus feed. If PO intake is minimal: rec increase regimen to 4 cartons per day to provide full nutrition. Water flushes of 120 mls before/after each bolus feed. Report These Signs and Symptoms Please contact your doctor if you have any of the following symptoms: temperatu re higher than 100.4 degrees F, uncontrolled pain, persistent nausea and/or vomi ting, difficulty breathing, chest pain, severe abdominal pain, headache, unable to urinate, unable to have bowel movement, or drainage with a foul odor Questions About Your Stay For questions or concerns regarding your hospital stay, call [phone]. Discharging attending physician: ESME HARKINS [[id number]] Driving Restrictions No driving until physician approval at follow-up appointment. Stroke Information B.E. F.A.S.T. is an easy way to remember the sudden signs of stroke. B.E. F.A.S.T. Stands for... B - Balance Is there a sudden difficulty with balance or coordination? Is walking or sitting difficult? E - Eyes Is there a sudden change in eyesight such as blurred vision, double vision, or a loss of vision in one or both eyes without pain? F - Face Does one side of the face droop or is it numb? Ask the person to smile. A - Arm Is one arm weak or numb? Ask the person to raise both arms. Does one arm drift downward? S - Speech Is speech slurred or difficult to understand? Are they unable to speak at all? Ask the person to repeat is simple sentence like "It is a bright and ann day. " T - Time to call 911! If a person shows any of these symptoms, even if they go away, call 911 to get t hem to the hospital immediately. Time is very important. The sooner they get t o the hospital, the more likely they are to receive stroke reversing and potenti ally life-saving treatment. Traits and lifestyle habits that increase your risk for stroke include prior str jose antonio/TIA, age, gender, high blood pressure, heart disease, high cholesterol, and physical inactivity. Continue your medications as ordered after discharge. These medications will hel p reduce your risk of another stroke. Abnormal lipids (fats in blood) Risk Goal: Total Cholesterol: <200 LDL ("bad" cholesterol): <100 HDL ("good" cholesterol): >40 for men, >50 for women Triglycerides: <150 Your Numbers: Cholesterol Date Value Ref Range Status 08/10/2022 146 <200 MG/DL Final LDL Date Value Ref Range Status 08/10/2022 106 (H) <100 mg/dL Final HDL Date Value Ref Range Status 08/10/2022 29 (L) >40 MG/DL Final Triglycerides Date Value Ref Range Status 08/10/2022 130 <150 MG/DL Final Plan: Diets high in saturated fat, trans fat and cholesterol can raise blood cho lesterol levels increasing your risk of stroke. Take medication as prescribed a nd eat a heart healthy, low sodium diet. It is important that you follow-up with your primary care physician 4 to 6 weeks after discharge. Be sure to keep all follow-up appointments. Please bring your discharge instructions with you to your follow-up appointments. Should you have any questions once you have returned home, please feel free to c adi the [employer] at [phone]. Your last blood pressure was BP Readings from Last 1 Encounters: 09/14/22 : (P) 139/88 . Your target blood pressure is < 130/90 If you have diabetes, even if treated, you are at an increased risk of stroke. Many people with diabetes also have high blood pressure, high cholesterol or are overweight. This increases your risk even more. Smoking doubles your risk of stroke. Quitting can greatly reduce your risk. Elizabeth argueta more information on smoking cessation call or visit www.smokefr ee.gov. Gastro-Jejunal Tube Assisted care instructions: *WASH HANDS PRIOR TO HANDLING DRAIN. *The tube has some slack to prevent skin breakdown, but should not slide in and out all the time. *If you have increasing pain, redness, or swelling at the entry site, this can b e a sign of infection; you need to stop feeds and call your doctor immediately. *Minor leakage around the tube is expected and not a sign of a major problem, bu t if you continue to have problems or questions, please call. *It is okay to shower with the drain. Make sure the entry site is dry before re placing a dressing. *IF THE TUBE IS PULLED OUT, PLEASE GO TO THE EMEREGENCY ROOM. A NEW TUBE NEEDS TO BE PLACED IMMEDIATELY. Appointment Request: Physical Medicine and Rehab (PMR) Diagnosis or reason for outpatient samantha't request Post hospitalization follow-up, L MCA stroke Appointment Request: Neurology What is the nature of this visit? Stroke Diagnosis or reason for outpatient samantha't request Post hospitalization follow-up Time frame requested for the outpatient samantha't (provide range): 4 weeks Which provider is requested for follow up? No preference Pager # of the requesting provider if any questions? [phone] Appointment Request: Urology Is the patient established in Urology? No Was patient seen in hospital by requested consult service? No Diagnosis or reason for outpatient samantha't request Neurogenic bladder secondary to stroke Is this urgent? No Does the patient need radiology or lab prior to appointment? No Time frame requested for the outpatient samantha't (provide range): 2 weeks Pager # of the requesting provider if any questions? [phone] Additional Orders: Case Management, Supplies, Home Health Home Health/DME HOME HEALTH/DME ONCE Comments: Home Health/Durable Medical Equipment Order Details Patient Name: Derek Castro Jr. 9 Patient Diagnosis & ICD 10 Codes: Acute ischemic left MCA stroke Patient Height: 172.7 cm (5' 7.99") Patient Weight: 91.1 kg (200 lb 13.4 oz) Provider Information: Name: Dr. Esme Harkins MD Equipment Information & Instructions: Enteral Nutrition Diagnosis: Dysphagia ICD10: R13.10 Length of Need (0-99): 99 Formula Name: NitroSecurity 1.4 daily Patient recieves enteral nutrition feedings by: Bolus Patient receives enteral nutrition per: G-tube Patient requires water bolus: No Boluses of 3.5 cartons of Loreta Beryllium 1.4 daily. Boluses given as 1-1-1-0.5 carto ns/bolus with at least 3 hours between feeds. Provides 1592 kcals, 70 grams prot ein, and 819 ml free leigh. Additional water flushes of 100 mls before and afte r each bolus feed. If PO intake is minimal: rec increase regimen to 4 cartons per day to provide fu ll nutrition. Water flushes of 120 mls before/after each bolus feed. Question Answer Comment Attending Name/Contact Dr. Esme Harkins; ; ; F ax: [phone] PCP Name/Contact Coni Nguyen APRN; ; HOME HEALTH/DME ONCE Comments: Home Health/Durable Medical Equipment Order Details Patient Name: Derek Castro Jr. 8 Patient Diagnosis & ICD 10 Codes: Acute ischemic left MCA stroke I63.512 Patient Height: 172.7 cm (5' 7.99") Patient Weight: 91.1 kg (200 lb 13.4 oz) Provider Information: MD Name: Dr. Esme Harkins MD MD Agency Instructions: Start of care within 24-72 hours of hospital discharge, anticipated discharge . RN to complete general assessment, including vitals with temperature, mon itor and teach patient and/or caregiver medication management and compliance, mo nitor and teach pain management and pain medication compliance when necessary. M onitor and teach signs and symptoms of infection, monitor and teach disease melvin gement, including signs and symptoms, diet, who and when to call, hospital readm ission avoidance., Indwelling Urinary Catheter, 16 fr, placed 08.30.2022 Gastrostomy Tube placed 08.20.2022, Abdomen, Left Upper Medial Physical Therapy to evaluate and treat along with home safety evaluation. Teac h strategies for energy conservation, mobility training, strengthening, balance activities and address deficits, maximize function and improve safety. and Occupational Therapy to evaluate and treat along with home safety evaluat ion. Teach strategies for energy conservation, mobility training, strengthening , balance activities and address deficits, maximize function and improve safety. , Social work to assess home situation, provide assistance for patient and careg iver with coping and disease management and to provide community resources., Sp eech therapy to evaluate and treat patient., and I certify that this patient is under my care and that I, or a nurse practitioner or physician's virtual assistant worki ng with me, had a wynb-ip-nphm encounter that meets the physician's vrir-ur-hrxk encounter requirements with this patient on 09.13.22. This patient is under my care, and I have initiated the establishment of the [facility] of care. This patient will be followed by a physician after discharge, who sam l periodically review the plan of care. Clinical findings to support homebound status: Unsteady gait, Ambulates short di stances only, and Poor balance Clinical findings to support home care services: Deficits in medical management, Cognitive deficits, Dysphagia, Deficit in ADL's, and Safety deficits Question Answer Comment Attending Name/Contact Dr. Esme Harkins; ; ; F ax: [phone] PCP Name/Contact Coni Nguyen APRN; ; Signed: Rosa Wheeler MD 09/13/2022 cc: Primary Care Physician: Coni Nguyen Verified Referring physicians: Bart Mandujano, DO Additional provider(s): Did we miss something? If additional records are needed, please fax a request on office letterhead to [phone]. Please include the patient's name, date of b irth, fax number and type of information needed. Additional request can be made by email at [email or web address]. For general questions of information about electronic records sharing, call [phone]. Associated attestation - Esme Harkins MD - 09/14/2022 1:42 PM CDT ATTESTATION: I have reviewed the discharge summary and agree with the resident's documentatio n. The patient was seen today and remained stable for discharge. Patient understand s signs to look out for that would require to call a doctor(s) and/or call 911. Patient knows not to return to work or driving until cleared by outpatient physi cians. Patient is medically stable for discharge today. Discharging home with family an d HH. Patient's spouse has reported that she will have help at home to take care of patient, as he continues to need 24/ assist secondary to impaired cognition . Give, he does well with automatic tasks, he may do better in the familiar home setting with familiar family members. Family/caregiver education completed toda y. F/U with PCP in 1-2 weeks Neurology Rehab clinic Urology Staff name: Esme Harkins MD * Lashanda Ortega, ROSENDO - 09/13/2022 1:49 PM CDT Case Management Progress Note NAME:Derek Castro Jr. :[birth year] AGE: 77 y.o. ADMISSION DATE: 08/24/2022 DAYS ADMITTED: LOS: 20 days Today's Date: 09/13/2022 PLAN: Discharge to home with family and HH services and TF Expected Discharge Date: 09/17/2022 Is Patient Medically Stable: Yes Are there Barriers to Discharge? yes (family training) INTERVENTION/DISPOSITION: Discharge Planning Discharge Planning: Home Health, Home Dyhtlpah-Fncngqs-EFT NCM reviewed EMR, participated in team huddle, therapy to discuss with spouse if they would be agreeable to taking patient home after family training Therapy notified NCM that patient's family agreeable to take patient home Sat after family training. NCM completed HH orders in CommitChange, routed to provider for signature NCM to complete TF orders pending swallow study results and siebel crm developer recomme ndations NCM updated Jenny with [facility] of possible discharge tomorrow, if pat ient discharges tomorrow, SOC will be Saturday 3. NCM completed TF orders, routed to provider for signature Signed TF orders faxed via CommitChange to [place] [facility] Does the Patient Need Case Management to Arrange Discharge Transpo rt? (ex: facility, ambulance, wheelchair/stretcher, Medicaid, cab, other): No Will the Patient Use Family Transport?: Yes Transportation Name, Phone and Availability #1: Son will transport home Support Info or Referral Medication Needs Financial Legal Other Discharge Disposition Selected Continued Care - Admitted Since 08/24/2022 [facility] Care Coordination complete. Service Provider Selected Services Address Phone Fax Patient Preferred [facility] [address] [place] [address] [address] [address] [phone] -- Dialysis/Infusion Coordination complete. Service Provider Selected Services Address Phone Fax Patient Preferred [facility] [address] [address] [phone] -- [facility] * Lashanda Ortega RN - 09/12/2022 3:14 PM CDT Case Management Progress Note NAME:Derek Castro Jr. :[birth year] AGE: 77 y.o. ADMISSION DATE: 08/24/2022 DAYS ADMITTED: LOS: 20 days Today's Date: 09/12/2022 PLAN: Ongoing Expected Discharge Date: 09/17/2022 Is Patient Medically Stable: No, Please explain: continue to work towards rehab goals Are there Barriers to Discharge? yes ( family training) INTERVENTION/DISPOSITION: Discharge Planning Discharge Planning: Home Health, Home Sytlvbcc-Srphula-HZU NCM spoke with patient spouse via phone call, provided conference update Patient's spouse requested NCM contact NORY Melendez, [phone] to assist with arranging HCBS for patient (spouse gets services through [facility]) NCM spoke with April at [facility], faxed patient demographics to April [phone], patient does not have Medicaid, has Medicare Replacement plan NCM spoke with patient's spouse to discuss sending a referral [facility] with applying for Medicaid, patient's spouse declined, stating "th ink he makes too much money". NCM v/u Transportation Does the Patient Need Case Management to Arrange Discharge Transpo rt? (ex: facility, ambulance, wheelchair/stretcher, Medicaid, cab, other): No Will the Patient Use Family Transport?: Yes Transportation Name, Phone and Availability #1: Son will transport home Support Info or Referral Medication Needs Financial Legal Other Discharge Disposition Selected Continued Care - Admitted Since 08/24/2022 Home Care Coordination complete. Service Provider Selected Services Address Phone Fax Patient Preferred [facility] [address] [facility] [address] [address] [phone] -- Dialysis/Infusion Coordination complete. Service Provider Selected Services Address Phone Fax Patient Preferred [facility]jection [address] [facility] [address] [phone] -- [facility] * Lashanda Ortega RN - 09/06/2022 1:34 PM CST Case Management Progress Note NAME:Derek Castro Jr. :[birth year] AGE: 77 y.o. ADMISSION DATE: 08/24/2022 DAYS ADMITTED: LOS: 13 days Today's Date: 09/06/2022 PLAN: Ongoing, anticipate discharge to home with 21/01 family assistance and HH s ervices Expected Discharge Date: 09/17/2022 Is Patient Medically Stable: No, Please explain: continue to work towards rehab goals Are there Barriers to Discharge? no INTERVENTION/DISPOSITION: Discharge Planning NCM reviewed EMR, participated in team huddle Clara with [facility] accepted patient via phone call. NCM updated patient's spouse via phone call regarding accepting FIELD SERVICE TECHNICIAN POULTRY, FIELD SERVICE TECHNICIAN POULTRY info rmation documented in AVS NCM will continue to follow for assistance with discharge needs/anticipate di scharge to home with TF Transportation Does the Patient Need Case Management to Arrange Discharge Transpo rt? (ex: facility, ambulance, wheelchair/stretcher, Medicaid, cab, other): No Will the Patient Use Family Transport?: Yes Transportation Name, Phone and Availability #1: Son will transport home Support Info or Referral Medication Needs Financial Legal Other Discharge Disposition Selected Continued Care - Admitted Since 08/24/2022 Home Care Coordination complete. Service Provider Selected Services Address Phone Fax Patient Preferred [facility] Services [address] [address] -- [facility] ACE FIRER * Lashanda Ortega RN - 09/05/2022 11:29 AM CST Case Management Progress Note NAME:Derek Castro Jr. :[birth year] AGE: 77 y.o. ADMISSION DATE: 08/24/2022 DAYS ADMITTED: LOS: 12 days Today's Date: 09/05/2022 PLAN: Ongoing, anticipate discharge to home with family support and HH servcies Expected Discharge Date: 09/17/2022 Is Patient Medically Stable: No, Please explain: Continue working towards rehab goals Are there Barriers to Discharge? no INTERVENTION/DISPOSITION: Discharge Planning NCM reviewed EMR, participated in team conference on Saturday, 09.04.22 NCM spoke with patient's spouse via phone call, provided update regarding dis charge plan, discussed FIELD SERVICE TECHNICIAN POULTRY choices, NVM provided verbal list of in-network FIELD SERVICE TECHNICIAN POULTRY w ith quality data from Medicare. Patient's choice for FIELD SERVICE TECHNICIAN POULTRY 1) [facility], 2) [facility], 3) [facility]; referral faxed via CommitChange to [facility], awaiting response NCM confirmed patient's PCP, Coni Nguyen APRN, [place], [place], updated Epic . NCM to follow for assistance with discharge planning Maranda with [facility] declined patient d/t outside service area. Referral sent to [facility] via CommitChange, awaiting response. Transportation Does the Patient Need Case Management to Arrange Discharge Transpo rt? (ex: facility, ambulance, wheelchair/stretcher, Medicaid, cab, other): No Will the Patient Use Family Transport?: Yes Transportation Name, Phone and Availability #1: Son will transport home Support Info or Referral Medication Needs Financial Legal Other Discharge Disposition Selected Continued Care - Admitted Since 08/24/2022 No services have been selected for the patient. [facility] ACE FIRER * Alisa Baptiste RN - 08/27/2022 12:42 PM CST Case Management Admission Assessment NAME:Derek Castro Jr. :[birth year] AGE: 77 y.o. ADMISSION DATE: 08/24/2022 DAYS ADMITTED: LOS: 3 days Todays Date: 08/27/2022 Source of Information: Patient's Joycelyn, EMR Review NCM met with pt at bedside to introduce self. Pt alert but not responsive to que stions. Informed pt that NCM will contact to complete assessment. CO at bed side. NCM contacted pt's Joycelyn to complete assessment. Pt lives with his in a 1 level home with wheelchair ramp entry. Bathroom has a tub/shower combo but w nilda is trying to install a walk in shower. Home is wheelchair accessible. o wns a power wheelchair that she uses when going out to the grocery store. Pt's son and live in a trailer next door and son will be able to assist as needed. can provide assistance but has physical limitations. She is marta r with caring for lake's and is willing to learn TF if needed. Pt also has a ni ade and granddaughter in the medical field that can provide some assistance. Pt has hx of HH in the past. unsure of agency. Pt was at a SNF about a year ago after his first stroke. reports he is in much worse shape this time. P t would likely not agree to return to that SNF ([facility] Pt has [employer] Medicare and RX coverage. Pt fills at [facility] in [place]. Eliquis is new and will likely need to be rocha checked. PCP is Dr. Calderon. Son will transport pt home. reports pt has hx of voiding trials were it took him some times to be able to void. will be available as needed to come to the unit but will need to know in ad tovar since it is about a 2-[address] is DPOA and has paperwork that she will bring to the unit to upload to up health system. [facility] for Home Health list. Per online [facility] Formulary - Eliquis is Tier 1 $0 co pay. Plan Plan: Case Management Assessment, Assist PRN with SW/NCM Services, Discharge Vlad nning for Home with Post-Acute Care Needs Patient Address/Phone [address] [facility] [address] (home) Emergency Contact Extended Emergency Contact Information Primary Emergency Contact: Joycelyn Castro Mobile Relation: Spouse Secondary Emergency Contact: Lavern Stephenson Mobile Relation: Daughter Healthcare Directive Healthcare Directive: Yes, patient has a healthcare directive Type of Healthcare Directive: Durable power of attorney lawyer for healthcare Location of Healthcare Directive: Patient does not have it with him/her Would patient like to fill out a (a new) Healthcare Directive?: N/A Psych Advance Directive (Psych unit only): No, patient does not have a Psych Adv ance Directive Transportation Does the Patient Need Case Management to Arrange Discharge Transport? (ex: facil ity, ambulance, wheelchair/stretcher, Medicaid, cab, other): No Will the Patient Use Family Transport?: Yes Transportation Name, Phone and Availability #1: Son will transport home Expected Discharge Date 09/17/2022 Living Situation Prior to Admission Living Arrangements Type of Residence: Home, independent Living Arrangements: Spouse/significant other Bathroom Shower / Tub: Tub/Shower Unit How many levels in the residence?: 1 Can patient live on one level if needed?: Yes Does residence have entry and/or side stairs?: No (Wheelchair ramp entry) Assistance needed prior to admit or anticipated on discharge: Yes Who provides assistance or could if needed?: Joycelyn, Son Are they in good health?: Yes Can support system provide 24/7 care if needed?: Yes Level of Function Prior level of function: Independent Cognitive Abilities Cognitive Abilities: Unable to Assess, Unable to participate in decision making, Continue to Assess Financial Resources Coverage Primary Insurance: Medicare Replacement ([facility], [facility] [place]) Secondary Insurance: No insurance Additional Coverage: RX Source of Income Source Of Income: SSI Financial Assistance Needed? N/A Psychosocial Needs Mental Health Mental Health History: No Substance Use History Substance Use History Screen: No Other N/A Current/Previous Services PCP No Pcp, Na, None, None Pharmacy [place], [place] - [address] [facility] [address] Durable Medical Equipment Durable Medical Equipment at home: None Home Health Receiving home health: In the past Agency name: is unsure of agency name Hemodialysis or Peritoneal Dialysis Undergoing hemodialysis or peritoneal dialysis: No Tube/Enteral Feeds Receive tube/enteral feeds: No Infusion Receive infusions: No Private Duty Private duty help used: No Home and Community Based Services Home and community based services: No Mohit White Mohit White: N/A Hospice Hospice: No Outpatient Therapy PT: No OT: No DEPUTY HEAD: No Snf Facility/Mcfp SNF: In the past When did patient receive care?: 1 year ago Name of Facility: [facility] Would patient return for future services?: No NH: No Inpatient Rehab IPR: No Long-Term Acute Care Hospital LTACH: No Acute Hospital Stay Alisa AUGUSTIN, RN, CRRN NCM Available via [employer] Pager: [phone] ACE FIRER documented in this encounter Discharge Instructions * Discharge Instr - Case Management* Lashanda Ortega RN - 09/06/2022 1:45 PM CST The Home Health Agency that you have chosen is: [facility] Start of care Saturday September 17, 2022 If you don't hear from the home health provider by 10 AM the day after discharge , call them to inquire when your home visit is planned.You have been set-up with a Home Health agency to support your post-hospital recovery at home. We have f ound that continued focus on your post-hospital medical/therapy needs will help to decrease the time needed for you to complete your recovery You will receive a phone call from the Home Health Agency. The agency will veri when they will be making the first visit to your home. Additionally, with the concerns of COVID-19, each Home Health Agency has improve d their processes/procedures to protect the health of their staff and their pat ients. Specifically, the home health staff are monitoring themselves on a daily basis by evaluating for any symptoms, fever, cough, sore throat and taking thei r temperature daily to ensure they are healthy and able to make visits to your home. The Home Health agency will be asking if you are having any new symptoms of feve r, cough and sore throat prior to any visit. The agency will also ask if you hunter ve had contact with anyone with or under investigation for COVID-19 or ill with respiratory symptoms. This includes if you live in a community where community based spread of COVID-19 is occurring. Note that these questions will be asked before every visit. Your Home Health agency is available to address any specific questions, and phyllis syed want to reassure you that your health and safety is their highest priority. * Attachments The following attachments cannot be sent through Care Everywhere.* Feeding Tube Care, Gastrostomy: Flushing ([place]LANDER) documented in this encounter Medications at Time [...] affected area as Needed (Promote skin healing). documented as of this encounter Ordered Prescriptions Start Date End Date Prescription Sig Dispensed Refills 09/13/2022 traZODone (DESYREL) 50 mg Take one 90 tablet 0 tablet tablet by mouth at bedtime daily. 09/13/2022 simethicone (MYLICON) 80 Chew one 30 tablet 3 mg chew tablet tablet by mouth three times daily. 09/14/2022 sertraline (ZOLOFT) 50 mg Take one 90 tablet 0 tablet tablet by mouth daily. 09/13/2022 QUEtiapine (SEROQUEL) 25 Take one-half 60 tablet 0 mg tablet tablet by mouth at bedtime as needed. 09/14/2022 famotidine (PEPCID) 20 mg Take one 180 tablet 3 tablet tablet by mouth daily. 09/13/2022 baclofen 5 mg tablet Take one 270 tablet 1 tablet by mouth at bedtime daily. 09/13/2022 apixaban (ELIQUIS) 5 mg Take one 180 tablet 3 tablet tablet by mouth twice daily. 09/13/2022 melatonin 5 mg tablet Take one 90 tablet 3 tablet by mouth at bedtime daily. 09/13/2022 levothyroxine (SYNTHROID) Take one 90 tablet 3 125 mcg tablet tablet by mouth daily 30 minutes before breakfast. 09/13/2022 levETIRAcetam (KEPPRA) Take one 180 tablet 3 500 mg tablet tablet by mouth twice daily. 09/14/2022 atorvastatin (LIPITOR) 80 Take one 90 tablet 1 mg tablet tablet by mouth daily. 09/14/2022 amLODIPine (NORVASC) 5 mg Take one 90 tablet 1 tablet tablet by mouth daily. 09/14/2022 aspirin 81 mg chewable Chew one 90 tablet 1 tablet tablet by mouth daily. Take with food. 09/13/2022 vitamin A & D oint Apply 113 g 1 topically to affected area as Needed (Promote skin healing). 09/13/2022 09/13/2022 traZODone (DESYREL) 50 mg one tablet by 90 tablet 0 tablet PEG Tube route at bedtime daily. 09/13/2022 09/13/2022 simethicone (MYLICON) 80 one tablet by 30 tablet 11 mg chew tablet Per G Tube route three times daily. 09/14/2022 09/13/2022 sertraline (ZOLOFT) 50 mg Take one 90 tablet 0 tablet tablet via feeding tube daily. 09/13/2022 09/13/2022 QUEtiapine (SEROQUEL) 25 one-half 180 tablet 0 mg tablet tablet by Per G Tube route at bedtime as needed. 09/13/2022 09/13/2022 melatonin 5 mg tablet one tablet by 90 tablet 1 PEG Tube route at bedtime daily. 09/14/2022 09/13/2022 famotidine (PEPCID) 20 mg one tablet by 180 tablet 1 tablet PEG Tube route daily. 09/13/2022 09/13/2022 baclofen 5 mg tablet Take one 270 tablet 1 tablet via feeding tube at bedtime daily. 09/13/2022 09/13/2022 apixaban (ELIQUIS) 5 mg one tablet by 180 tablet 1 tablet Per NG tube route twice daily. 09/13/2022 09/13/2022 levothyroxine (SYNTHROID) one tablet by 90 tablet 1 125 mcg tablet PEG Tube route daily 30 minutes before breakfast. 09/13/2022 09/13/2022 levETIRAcetam (KEPPRA) 5 mL by PEG 473 mL 1 100 mg/mL oral solution Tube route twice daily. 09/14/2022 09/13/2022 atorvastatin (LIPITOR) 80 one tablet by 90 tablet 1 mg tablet PEG Tube route daily. 09/14/2022 09/13/2022 aspirin 81 mg chewable one tablet by 90 tablet 1 tablet PEG Tube route daily. Take with food. 09/14/2022 09/13/2022 amLODIPine (NORVASC) 5 mg one tablet by 90 tablet 1 tablet PEG Tube route daily. documented in this encounter Discharge Disposition Code Departure Means Destination Disposition Car Home Health Care [facility] documented in this encounter Progress Notes * Christiana Franco OT - 09/14/2022 3:28 PM CDT OCCUPATIONAL THERAPY PROGRESS NOTE Name: Derek Castro Jr. : 1945 Age: 77 y.o. Admission Date: 08/24/2022 LOS: 21 days Date of Service: 09/14/2022 09/14/22 0730 Time Calculation Start Time 0730 Stop Time 0750 Time Calculation 20 $$ Phys ADL Skills 1 unit Subjective Subjective Pt supine upon arrival with breakfast on his table. Eating Eating Assist Stand By Assist Eating Comments CO reports pt feeds himself without assist a few bites. Pt does not appear to favor pureed foods. Lower Body Dressing LE Dressing Assist Total Assist Lower Dressing Comments attempted to don pants however pt resists. Assessment Assessment Pt presents with several appropriate head nods throughout session see jeovany to understand most commands and questions. Pt seems to dislike early mornin g therapy sessions. Goals for the stay Pt will perform basic care and transfer with Moderate assistance;Achieved Type of Note Type of Note Daily Therapist: VIN Mason/Ludivina [id number] Date: 09/14/2022 * Christiana Franco OT - 09/14/2022 3:28 PM CDT OCCUPATIONAL THERAPY PROGRESS NOTE Name: Derek Castro Jr. : 1945 Age: 77 y.o. Admission Date: 08/24/2022 LOS: 21 days Date of Service: 09/14/2022 09/14/22 1310 Time Calculation Start Time 1510 Stop Time 1530 Time Calculation 20 $$ Phys ADL Skills 1 unit Activity Therapeutic Activities Pt redirected to elevator for discharge with increased cu es and distraction. pt more agitated this afternoon likely d/t overstimulation t hroughout the day. Assessment Assessment Pt discharged home with family. Type of Note Type of Note Daily Therapist: VIN Mason/Ludivina [id number] Date: 09/14/2022 * Hannah Coker RN - 09/14/2022 3:28 PM CDT Derek Castro . discharged on 09/14/2022. . Discharge instructions reviewed with family. Valuables returned: . Home medications: . Functional assessment at discharge complete: Yes . Patient agitated at the time of discharge,attempted to push staff away as Staff helped transfer patient to the car.Patient got out of car,was redirected back t o the unit for the purpose of using the bathroom.However patient kept pacing paige k and forth.Patient left with one staff to help reduce the agitation.Eventually patient accepted to be escorted to family car by one OT staff. * Louise Mcdonald, PT - 09/14/2022 2:40 PM CDT PHYSICAL THERAPY NOTE 09/14/22 1440 Type of Note Type of Note Daily Time Calculation Start Time 1440 Stop Time 1515 Time Calculation 35 $$ Professional Contact 2 units $$ Gait / Mobility 3 units Subjective Subjective Patient up in halls with CO. Transfers Transfer: Assistive Device Hand Hold Assist Transfer: Sit to stand assist level Stand by assistance Transfer: Sit to stand type of assist For safety Transfer: Stand to sit assist level Stand by assistance Transfer: Stand to sit type of assist For safety Transfer: Stand pivot assist level Stand by assistance Transfer: Stand pivot type of assist For safety Gait Gait Comment Patient ambulating throughout unit and down to car. However, when p resented with car transfer patient resisting initially, he then attempted to get in the car but then proceeded to get out of the car. At the time there was this therapist, Rn, CO, son, ejizhtmq-no-bru and . Anticipate patient was feelin g overwhelmed by the situation and people. At that time, patient became agitated and attempted to push people away. This therapist tried to redirect to patient utilizing bathroom as last time patient became mildly agitated/irritated he had to have a bowel movement. Redirected patient back to unit, however then had diff iculty directing to the bathroom. After some time of trying to redirect to bathr oom, transitioned to OT assisting. Encouraged remainder of staff to back away to reduce stimulation as do believe some concern was regarding overstimulation. Assessment Assessment Eventually, the OT was able to assist patient in to the car. Staff in formed. Louise Mcdonald, PT, DPT * Christiana Franco OT - 09/14/2022 1:00 PM CDT OCCUPATIONAL THERAPY PROGRESS NOTE Name: Derek Castro Jr. : 1945 Age: 77 y.o. Admission Date: 08/24/2022 LOS: 21 days Date of Service: 09/14/2022 09/14/22 1300 Time Calculation Start Time 1300 Stop Time 1330 Time Calculation 30 $$ Phys ADL Skills 2 units Subjective Subjective Pt upright in chair upon arrival. Agreeable to OT session. family pre sent for training Tub/Shower Transfer Tub/Shower Comments dry run tub transfer with tub transfer bench and stepping ov er tub. Transfers Transfer: Assistive Device Hand Hold Assist Transfer Comment Daughter in law ambulates with pt providing minimal/contact gua rd assist. Activity Therapeutic Activities Provided education on apraxia and basic ADLs. Assessment Assessment Pt and family seem comfortable with training and taking patient home. Type of Note Type of Note Daily Therapist: VIN Mason/Ludivina [id number] Date: 09/14/2022 * Lady Downey MS,[facility]-DEPUTY HEAD - 09/14/2022 12:00 PM CDT SPEECH-LANGUAGE PATHOLOGY 09/14/22 1200 Behavior Comments* Patient seated upright in recliner upon DEPUTY HEAD arrival. Patient's an d [id number]-xpt present for further family training/education this date. CO pr esent at DEPUTY HEAD arrival and exit. Dysphagia Goals Therapy Activities PO trials PO Trials Thin liquids;Puree Therapy Activity Comments Patient assessed with meal tray of pureed textures and thin liquids via cup this date. DEPUTY HEAD provided meal set-up and cues for meal init iation this date. Patient self-fed throughout entire meal. Intermittently, Patie nt required verbal cues for continued meal intake. Patient also required intermi ttent cues to maintain small bite size. Patient receptive to all redirection and verbal cues this date. Patient demonstrated cough/throat clear with intake x4 t hroughout meal. Given consistent penetration appreciated on videoswallow complet ed 09/13/22, suspect cough/throat clear in response to possible penetration event s. Per family report, Patient has prior history of dysphagia and demonstrated co ugh/throat clear with meal intake at PLOF following prior CVA. Patient and famil y re-educated regarding diet recommendations and safe swallowing strategies. Pro vided patient and family with written education of above. Swallow Recommendations PO: Pureed, Thin liquids NPO: (Per discretion of RD and medical team) Medications: Crushed in puree, As tolerated Ice Chip Trials: Unlimited Supervision: 1:1 Positioning: Up in chair for all meals Swallow Strategies: 100% supervision to provide cues for swallow strategies dur ing meals, Limit distractions during PO, Small bites/sips, Slow rate of intake, Alternate liquids/solids Oral Hygiene: 3 times per day Assessment Patient consumed meal this date. Recommend continuation of pureed anna tures and thin liquids with utilization of safe swallowing strategies outlined a julia. See previous progress note from this date for updated goals/progress. Plan On track for discharge 09/14/22. Lady Doweny MS, CCC-DEPUTY HEAD * Louise Mcdonald, PT - 09/14/2022 11:00 AM CDT PHYSICAL THERAPY NOTE 09/14/22 1100 Type of Note Type of Note Daily Time Calculation Start Time 1100 Stop Time 1150 Time Calculation 50 $$ Gait / Mobility 1 unit $$ PT Therapeutic Activity 2 units Subjective Subjective Patient up in chair, and cpjiaqgr-uh-dfy present for family sybil kiser. Per previous report, was informed to not pass on information to daughter-i n-law, however due to her presence information was provided. Bed Mobility Bed Mobility Comments Provided education regarding assisting patient out of bed as patient was already in chair. Educated to assist with legs out of bed and if patient resists, to allow patient to rest and try again in another hour or so. Transfers Transfer: Assistive Device Hand Hold Assist Transfer: Sit to stand assist level Contact guard assistance Transfer: Sit to stand type of assist For safety Transfer: Stand to sit assist level Contact guard assistance Transfer: Stand to sit type of assist For safety Transfer: Stand pivot assist level Contact guard assistance Transfer: Stand pivot type of assist For safety Gait Gait Distance 300 feet GAIT: Assist Level Contact guard assistance GAIT: Type of Assist For safety Gait Comment Reviewed gait safety, including hand hold assist, need for SBA for all mobility and plan for longer distance gait. Activity PT Therapeutic Activities Educated on importance of routine at home as well as f ollowing patient's cues. Informed that it is best to call 911 in a fall situatio n to assess the situation or to aide in him getting up off the floor. Assessment Assessment Patient's family receptive to education. Appear eager to discharge ho me and feel confident in their ability to take care of patient in the home. Petty desir was provided with TABS alarm to ensure monitoring in the home. Plan Comments Dc home Louise Mcdonald PT, DPT * Lady Downey, MS,CCC-DEPUTY HEAD - 09/14/2022 10:30 AM CDT SPEECH-LANGUAGE PATHOLOGY 09/14/22 1030 Behavior Comments* Patient seated upright in recliner upon DEPUTY HEAD arrival. Patient's pr esent for further family training this date. Patient's vjklkdsm-sb-wav also arri michael in middle of session. CO present at DEPUTY HEAD arrival and exit. Dysphagia Goals Therapy Activity Comments DEPUTY HEAD provided education to Patient and family regarding videoswallow study results, diet recommendations, aspiration risk, risk managem ent strategies, and safe swallowing strategies. Per videoswallow study completed on 09/13/22, recommend pureed solids and thin liquids. DEPUTY HEAD provided education to family that Patient is still at risk for aspiration and provided risk managemen t strategies including good oral care, overall good health, and good mobility. A lso provided written education regarding IDDSI pureed solid guidelines and safe swallowing strategies. Patient's family verbalized understanding to all educatio n. Patient Will Demonstrate Compensatory Swallow Strategies to Eliminate S/S of Asp iration with Minimal prompting - patient able to 75-90% of the time;Met Patient Will Tolerate PO Trials to Advance Diet with Complete independence;Met Patient Will Demonstrate Dysphagia Exercises to Improve Swallow Function with No t met (Unable to address this admission secondary to severe aphasia and decreased comm and execution.) Patient Will Exhibit a Safe Swallow for the Least Restrictive Consistency with u se of Swallow Strategies Provided with Minimum assist;Met (Safe with diet modifications and utilization of safe swallow strategies. Aspira tion risk still present.) Motor Speech - Apraxia Goals Patient Will Demonstrate Oral Motor Movements with Total assistance - Patient ab le to < 25% of the time;Not met Patient Will Perform Automatic Speech Tasks with Total assistance - Patient able to < 25% of the time;Not met Patient Will Use Common Words/Phrases During Interactions with Staff with Total assistance - Patient able to < 25% of the time;Not met Patient Will Improve Motor Planning to Communicate Wants and Needs with Progress ing;Not met (Total assistance) Auditory Comprehension Goals Therapy Activities (Education) Therapy Activity Comments DEPUTY HEAD provided education regarding severe aphasia and kay spected apraxia of speech. Provided family with written education regarding apha stephanie, apraxia of speech, and communication strategies. Also provided family with simple communication board for trialed use at home. No reliable form of communic ation has been established at this time. Recommend Patient continue with intensi ve speech therapy at next level of care. Patient Will Respond to [place] Yes/No Questions with Total assistance - Patien t able to < 25% of the time;Not met Patient Will Improve Auditory Comprehension to Follow Conversation and Direction s for Daily Living with Progressing;Not met (Total assistance) Verbal Expression Goals Patient Will Use Nonverbal Communication Modalities to Express Wants and Needs w ith Total assistance - Patient able to < 25% of the time;Not met Patient Will Use Single Words and/or Short Phrases to Express Daily Wants and Ne eds with Total assistance - Patient able to < 25% of the time;Not met Patient Will Respond to Close Ended Questions with Total assistance - Patient ab le to < 25% of the time;Not met Patient Will Express Basic Wants and Needs for Daily Living Skills with Progress ing;Not met (Total assistance) Assessment Goals not met secondary to severe aphasia, suspected apraxia of speec h, and decreased command execution. Recommend continuation of speech therapy at next level of care. Plan On track for discharge 09/14/22. Lady Downey MS, CCC-DEPUTY HEAD * Zoë Kennedy - 09/14/2022 9:30 AM CDT Recreation Therapy Daily Note Start Time: 0930 Stop Time: 1000 Total Time: 30 Subjective: Patient seated in recliner, agreeable to session. Spouse and CO pres ent. present on departure. Activity Type: 1:1 Intervention/Activity: Therapist provided education and handouts about stroke re sources to patient and spouse. Provided information about stroke support destiny up and [employer]. Therapist assisted with scanning QR code and navigating resources on spouses phone. Followed up with [employer], spouse reports that they are able to successfully access account. CO present on departure with all needs within reach. Assessment: Patient was pleasant. Spouse and patient were agreeable to resources provided. Provided information about [employer] resources and features. Spouse rep orts that their son will assist with looking at virtual resources. Patient was w atching TV on departure. Plan: spending time outside Zoë Brent [employer] Certified [employer] Runner * Maureen Lyman RN - 09/14/2022 7:11 AM CDT Acute Inpatient Rehabilitation Behavior Summary of Shift Name: Derek Castro Jr. : 1945 Age: 77 y.o. Admission Date: 08/24/2022 LOS: 21 days Date of Service: 09/14/2022 Reason for increased observation? Pulling on tubes and lake cath, Poor safety a warness. One-on-one safety watch: Yes Q15-30 minute safety watch: No Suicide precaution: No Telemonitoring: No Behavior outbursts during this shift? No Description and time(s) of event: NA Agitation during this shift? No Description and time(s) of event: NA Active suicide ideation during this shift? No Description and time(s) of event: NA Poor safety awareness or impulsivity during this shift? No Description and time(s) of event: NA Noteworthy visitor interactions during this shift? NA Sleep/rest patterns observed during this shift? No Therapeutic interventions: Redirection and Reorientation Additional Comments: NA * Esme Harkins MD - 09/14/2022 6:41 AM CDT ATTESTATION I personally performed the tineo portions of the E/M visit, discussed case with re sident and concur with resident documentation of history, physical exam, assessm ent, and treatment plan unless otherwise noted. Patient is medically stable for discharge today. Discharging home with family an d HH. Patient's spouse has reported that she will have help at home to take care of patient, as he continues to need 24/7 assist secondary to impaired cognition . Give, he does well with automatic tasks, he may do better in the familiar home setting with familiar family members. Family/caregiver education completed toda y. F/U with PCP in 1-2 weeks Neurology Rehab clinic Urology Staff name: Esme Harkins MD Date of Service: 09/14/2022 Physical Medicine & Rehabilitation Progress Note Today's Date: 09/14/2022 Admission Date: 08/24/2022 LOS: 21 days Insurance: [employer] Principal Problem: Acute ischemic left MCA stroke (HCC) Active Problems: CAD (coronary artery disease) Stage 3b chronic kidney disease (HCC) Hyperlipidemia Primary hypertension Hypothyroidism Seizure disorder (HCC) History of multiple strokes Global aphasia Acute right hemiparesis (HCC) Impaired mobility and activities of daily living Risk for falls Assessment/Plan: Derek Castro Jr. is a 77 y.o. male admitted to [facility] on 08/24/2022 with the following issues: strok e Rehabilitation Plan Tentative discharge date: Rehabilitation: Patient will continue with comprehensive therapies including phy sical therapy, occupational therapy, speech & language pathology, specialized rehab nursing, neuropsychology and physiatry oversight. Goals: at ambulation level, household mobility, Stand by assistance, With caregi tara assistance, Progressing Recommended therapy after discharge: Home with Assistance, and, Home Health Sett ing PT recommended equipment: TBD OT recommended equipment: Too early to determine Daily Functional Update: Transfers Transfer: Assistive Device: Hand Hold Assist (09/13/2022 1:00 PM) Transfer: Sit to stand assist level: Minimum assistance (09/13/2022 1:00 PM) Transfer: Stand pivot assist level: Minimum assistance (09/13/2022 1:00 PM) No data recorded Gait/ Mobility Gait: Assistive Device: None; Hand Hold Assist (09/13/2022 10:45 AM) GAIT: Assist Level: Minimum assistance (09/13/2022 10:45 AM) Gait Distance: 1000 feet (+ 200 feet) (09/13/2022 10:45 AM) No data recorded No data recorded Toileting Toileting Assist: Total Assist (09/06/2022 1:00 PM) No data recorded Toilet Transfer Assist: Maximum assistance (09/13/2022 9:00 AM) Dressing LE Dressing Assist: Maximum Assist (09/12/2022 10:30 AM) UE Dressing Assist: Moderate Assist (09/12/2022 10:30 AM) Current Medical Problems/Risks of Medical Complications/Management Acute Left M2 occlusions/p IRw/ aTICI3 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 Hx of multiple ischemic strokes(2019, R MCA 05/2022, L NILA 07/2022) Severe dysphagia and global aphasia, impaired cognition, impaired mobility with right hemiplegia, impaired ADLs >Will continue indefinitely on Eliquis 5mg BID and ASA 81mg daily per Neurology recommendations > 30 day cardiac event monitoror ILR at discharge and will maintain > PT/OT/DEPUTY HEAD to eval and treat > Sertraline as below > Baclofen 5 mg qhs (start 09/05) for LAYA spasticity H/o Seizures > Continue CHILD DEVELOPMENT ASSOCIATE TEACHER Keppra 500 mg BID > F/U with Neurology outpatient Oropharyngeal Dysphagia Concern for aspiration - Emesis with TF 09/10, Chest xray 09/10: similar basilar predominant lung opaciti es - VFSS 09/13 - diet upgraded to pureed thins > PEG care, abdominal binder > On bolus feeds and water thr peg > monitored labs-CMP, mag/phos while on TF > siebel crm developer followed > Recommendations at discharge 1 carton QID and 200ml water QID thr peg, may wean down as intake improves. F/U with PCP and DEPUTY HEAD closely to monitor this. > Family training on PEG care and use and TF and modified diet prior to discharge Agitation, restlessness Disturbed sleep wake cycle, insomnia Agitation continues to improve >Melatonin 5mg QHS, trazodone 50 mg QHS, and seroquel 12.5mg at bedtime. MCFP goal is to be only on either trazodone or seroquel at bedtime. Presently seroquel seems to be helping better than trazodone > Sleep hygiene > Redirection and reorientation > protect tubes and lines > Continue am SSRI (zoloft 50 mg) started 08/30 to improve daytime alertness/mood > QTc on EKG 09/10/22 was 420 Neurogenic bladder/urinary retention : Lake replaced 08/22 and fter failed voiding trial > Discontinued doxazosin d/t orthostasis > Will keep Lake in given agitation, aphasia, as he was not tolerating bladder scans/timed voids/straight caths during last trial. Has a history of urinary retention does have a Urologist at home. Discharge home with Lake with follow- up with urology. Neurogenic bowel: loose stools, incontinence > Held senna, docusate, mag ox > May need a set bowel time at home if incontinence continues. > Fiber supplement > Anticipate improvement in loose stools when he comes off tube feeds HTN/ HLD CAD s/p CABG x5(2009) Orthostatic hypotension Hypomagnesemia, resolved - Echo 08/10 with EF 60%, no WMA or ventricle dysfunction - EKG 09/10: NSR, QTc 420 > SBP goal:less than 160 >Cont statin and ASA > Continue amlodipine at reduced dose of 5mg > Consult internal medicine, appreciate recommendations > No change to BP regimen > Repeat orthostatics 09/07 positive > Discontinued carvedilol 09/10 > overall improved orthostatic symptoms over the last few days CKD stage 3 - BaselineCr~1.8-2 > Continue to monitor, avoid nephrotoxic meds Oral thrush-resolved - S/p nystatin > oral cares BID Hypothyroidism >Cont CHILD DEVELOPMENT ASSOCIATE TEACHER levothyroxine Rash-resolved - Dry, red macular rash noted to entire back >Cont Emollient cream Pulmonary nodules - Incidental finding with multiple subcentimeter pulmonary nodules, indeterminan t on initial examination. No dominant pulmonary mass > Follow-up CT chest in 3 months recommended to evaluate for stability Pain Management: pain seems well controlled, heat / ice PRN, topical medication and Tylenol PRN Skin: Encourage the patient to continue to inspect their skin and perform pressu re relief. BMI: Body mass index is 31.11 kg/m. Mental Health, high risk of depression with stroke and aphasia: consulted neuropsychology to provide support / counseling and monitor for depres miladys Sertraline as above DVT Prophylaxis: apixaban GI ppx: pepcid 20mg daily while on tube feeds. Subjective No acute events overnight. Continuous observer and family at side. Per observer, patient was calm throughout the night and slept well. Did not eat/drink much of the breakfast. Patient is non-verbal but makes motion with mouth and hands when asked questions. Discussed rehabilitation course and further treatment plan wit h family, all questions were answered. Therapy notes reviewed, and patient has p rogressed to the following functional levels: - total assist for grooming, toileting, and bathing - maximal assist for LE dressing - moderate assist for UE dressing - maximal assist for bed mobility and toilet transfers - minimal assist for sit to stand transfers and gait - contact guard assist for ambulation Therapy performance depends on patient's participation and understanding/cogniti on. Automatic tasks such as brushing teeth, washing disches seem easier for him to follow now. Lake catheter with 1700 mL output over last 24 hours. Incontinent of bowel with last BM 09/13. Objective Vital Signs: Last Filed Vital Signs: 24 Gladis r Range BP: 138/78 (09/14 633) Temp: 36.7 C (98 F) (09/14 633) Pulse: 90 (09/14 633) Respirations: 18 PER MINUTE (09/14 633) SpO2: 92 % (09/14 633) O2 Device: None (Room air) (09/14 633) BP: (136-154)/(76-86) Temp: [36.4 C (97.5 F)-37.1 C (98.7 F)] Pulse: [61-90] Respirations: [17 PER MINUTE-18 PER MINUTE] SpO2: [92 %-98 %] O2 Device: None (Room air) Vitals: 08/27/22 0421 09/03/22 0528 09/10/22 0654 Weight: 96.7 kg (213 lb 3 oz) 90 kg (198 lb 6.6 oz) 91.1 kg (200 lb 13.4 oz) Intake/Output Summary: (Last 24 hours) Intake/Output Summary (Last 24 hours) at 09/14/2022 1027 Last data filed at 09/14/2022 0900 Gross per 24 hour Intake -- Output 1800 ml Net -1800 ml Last Bowel Movement Date: 09/11/22 Labs--reviewed No results found for this visit on 08/24/22 (from the past 24 hour(s)). Medications: Scheduled Meds:amLODIPine (NORVASC) tablet 5 mg, 5 mg, Oral, QDAY apixaban (ELIQUIS) tablet 5 mg, 5 mg, Oral, BID aspirin chewable tablet 81 mg, 81 mg, Oral, QDAY atorvastatin (LIPITOR) tablet 80 mg, 80 mg, Oral, QDAY baclofen (LIORESAL) tablet 5 mg, 5 mg, Oral, QHS Diet Enteral Feeding Bolus, , SEE ADMIN INSTRUCTIONS, QID (6,12,16,20) And Water Bolus, 200 mL, PEG Tube, QID (6,12,16,20) [Held by Provider] docusate sodium (COLACE) oral solution 100 mg, 100 mg, PEG Tu be, BID famotidine (PEPCID) tablet 20 mg, 20 mg, Oral, QDAY levETIRAcetam (KEPPRA) tablet 500 mg, 500 mg, Oral, BID levothyroxine (SYNTHROID) tablet 125 mcg, 125 mcg, Oral, QDAY(07) melatonin tablet 5 mg, 5 mg, Oral, QHS Nutrisource Fiber Supplement Packets, , SEE ADMIN INSTRUCTIONS, QDAY(20) QUEtiapine (SEROquel) tablet 12.5 mg, 12.5 mg, Oral, QHS [Held by Provider] senna (SENOKOT) oral syrup 17.6 mg, 10 mL, PEG Tube, QHS sertraline (ZOLOFT) tablet 50 mg, 50 mg, Oral, QDAY simethicone (MYLICON) chew tablet 80 mg, 80 mg, Oral, TID traZODone (DESYREL) tablet 50 mg, 50 mg, Oral, QHS Continuous Infusions: PRN and Respiratory Meds:acetaminophen Q4H PRN, bisacodyL QDAY PRN, emollient MO N, pancrelipase 20,880 Units/sodium bicarbonate 650 mg (KU CLOG DESTROYER) PRN ( Orchard Worker from Rx), vitamin A & D PRN Physical Exam General: Alert, NAD HEENT: NCAT, EOMI, good eye contact, no oral lesions Heart: Skin well perfused Lungs: NWAB on RA Abdomen: Soft, non-distended, normoactive bowel sounds in 4+ quadrants, PEG site appears c/d/i with trace erythema at 12 o'clock : Lake catheter in place, draining light yellow urine Extremities: No edema, Neuro: Alert, non verbal, understands basic simple one step commands intermitten tly. Can move all 4 limbs against gravity- better command following in RUL than left UL, however uses the left arm/hand for automatic tasks - L elbow flexion MAS 1+/4 - L shoulder adduction MAS 1/4 - L wrist extension MAS 1+/4 - Negative Hood's bilaterally - Negative clonus bilaterally Psych: pleasant MSK: no atrophy Labs & Therapy Notes Reviewed Rosa Wheeler MD * Lamine Augustin RN - 09/13/2022 6:47 PM CDT Acute Inpatient Rehabilitation Behavior Summary of Shift Name: Derek Castro Jr. : 1945 Age: 77 y.o. Admission Date: 08/24/2022 LOS: 20 days Date of Service: 09/13/2022 Reason for increased observation? Pulling at tubes, poor safety awareness One-on-one safety watch: Yes Q15-30 minute safety watch: No Suicide precaution: No Telemonitoring: No Behavior outbursts during this shift? No Description and time(s) of event: n/a Agitation during this shift? No Description and time(s) of event: n/a Active suicide ideation during this shift? No Description and time(s) of event: n/a Poor safety awareness or impulsivity during this shift? No Description and time(s) of event: n/a Noteworthy visitor interactions during this shift? none Sleep/rest patterns observed during this shift? Awake most if not all shift Therapeutic interventions: Reorientation Additional Comments: * Nicko Lechuga MD - 09/13/2022 3:35 PM CDT General Medicine Consult Progress Note Name: Derek Castro Jr. : 1945 Age: 77 y.o. Admission Date: 08/24/2022 LOS: 20 days Date of Service: 09/13/2022 Reason for Consult: Hypotension with background Hypertension Patient with L MCA stroke, CAD s/p CABG. Had 9 beats of VTACh on event monitor. Has been hypertensive for several days but recently developed hypotension. No s/ s of infection. Please assist with management of anti-hypertensives. Consult type: Co-Management w/Signed Orders A 77-year-old male with history of hyperlipidemia, hypertension, coronary diseas e status post CABG in 2009, hypothyroidism, right lower extremity DVT, CKD stage III seizure disorder and multiple strokes who had recent acute ischemic left MCA stroke admitted to rehab on 08/24/2022 following transfer from acute care where he was admitted between 08/09/2022 until 08/24/2022. Internal medicine now consul earline for hypertension --Hypotension: has resolved but with orthostatic hypotension on a background hyp ertension while on antihypetensives -Hypotension this morning from sitting to standing orthostatic blood pressure me asurements, uncertain of symptoms with this blood pressure measurement -CHILD DEVELOPMENT ASSOCIATE TEACHER doxazosin, amlodipine and Coreg -Doxazosin discontinued 09/07 -Coreg discontinued 09/10 - Amlodipine 5mg only BP medication now --Short non sustained V.tach - 9 beats -- Recent acute left M2 2 occlusion[ 08/09/2022] status post IR thrombectomy with acute left basal ganglia infarct and chronic vertebral artery occlusion - On Domonique jeff, Atorvastatin and ASA -- Aphasia- both receptive and expressive -- Oropharyngeal dysphagia - on Tube feeding with PEG tube. Speech therapy on petrona jackson -- Seizure disorder - on Keppra 500 MG TID -- Urinary retention with neurogenic bladder -- Constipation/incontinence with neurogenic bowel -- Hypothyroidism -- Hyperlipidemia -- CAD S/P CABG X 5 [ 2010] -- CKD stage III - baseline creatinine 1.6 - 1.8 - currently at baseline -- Pulmonary nodules --History of RLE DVT on Anticoagulation with Apixaban --Insomnia with agitation now improving - Zoloft, Trazodone and Quetiapine --Oral candidiasis - on Nystatin (end 09/11) Recommendations: - Continue amlodipine 5 mg - Continue to hold doxazosin and Coreg, would not resume this on discharge--[facility] patient has had a recent stroke his blood pressures have been less than 160 s ystolic and he has had quite a bit of benefit from having a liberalized blood pr essure in terms of working with therapy. For this reason I will hold off on any further medication adjustments as I think we will run to the same problems with hypotension with addition of any other medication. He may follow-up outpatient with his primary care doctor for further adjustment of his blood pressure regim en. - Keep K > 4 and Mg > 2 Nicko Lechuga MD Internal Medicine [facility], [id number] Internal medicine will sign off at this time. Please do not hesitate to reach o ut with any questions or concerns. Please direct initial questions to the primary service. General Medicine consults can be contacted via Voalte using [facility] Consults 1 or 2 First Call 24 hours a day Interim events: Blood pressure is improved the last 2 days and patient has been more alert the last couple of times and I visited with him. Subjective (today): Unable to obtain due to patient condition. Review of Systems: Unable to obtain. Vital Signs: Last Filed in 24 hours Vital Signs: 24 hour Range BP: 136/76 (09/13 1125) Temp: 37.1 C (98.7 F) (09/13 1125) Pulse: 74 (09/13 1125) Respirations: 18 PER MINUTE (09/13 1125) SpO2: 95 % (09/13 1125) O2 Device: None (Room air) (03/16 1126) BP: (125-159)/(69-85) Temp: [36.8 C (98.3 F)-37.1 C (98.7 F)] Pulse: [65-80] Respirations: [15 PER MINUTE-20 PER MINUTE] SpO2: [93 %-95 %] O2 Device: None (Room air) Physical Exam: General: alert, in no acute distress CV: HR RRR, no murmur/rubs/gallops Pulm: Lungs CTA, no rales/wheezes/rhonci Abdomen: Soft, non-tender, nondistended, normoactive bowel sounds Neuro: Following some commands and not others, wakes up to verbal stimuli withou t issue and is looking around the room without distress Extremities: No peripheral edema noted Psych: Appropriate mood and affect Lab/Radiology/Other Diagnostic Tests: 24-hour labs: Results for orders placed or performed during the hospital encounter of 08/24/22 (from the past 24 hour(s)) BASIC METABOLIC PANEL Collection Time: 09/13/22 6:43 AM Result Value Ref Range Sodium 139 137 - 147 MMOL/L Potassium 3.3 (L) 3.5 - 5.1 MMOL/L Chloride 108 98 - 110 MMOL/L CO2 23 21 - 30 MMOL/L Anion Gap 8 3 - 12 Glucose 157 (H) 70 - 100 MG/DL Blood Urea Nitrogen 31 (H) 7 - 25 MG/DL Creatinine 1.60 (H) 0.4 - 1.24 MG/DL Calcium 8.8 8.5 - 10.6 MG/DL eGFR 44 (L) >60 mL/min CBC CELLULAR THERAPEUTICS Collection Time: 09/13/22 6:43 AM Result Value Ref Range White Blood Cells 7.0 4.5 - 11.0 K/UL RBC 4.34 (L) 4.4 - 5.5 M/UL Hemoglobin 13.1 (L) 13.5 - 16.5 GM/DL Hematocrit 39.5 (L) 40 - 50 % MCV 91.0 80 - 100 FL MCH 30.3 26 - 34 PG MCHC 33.2 32.0 - 36.0 G/DL RDW 14.8 11 - 15 % Platelet Count 192 150 - 400 K/UL MPV 9.5 7 - 11 FL MAGNESIUM Collection Time: 09/13/22 6:43 AM Result Value Ref Range Magnesium 1.9 1.6 - 2.6 mg/dL PHOSPHORUS Collection Time: 09/13/22 6:43 AM Result Value Ref Range Phosphorus 2.5 2.0 - 4.5 MG/DL No pertinent radiology. Nicko Lechuga MD * Zoë Kennedy - 09/13/2022 3:15 PM CDT Recreation Therapy Daily Note Start Time: 1515 Stop Time: 1530 Total Time: 15 Subjective: Patient seated in recliner, agreeable to session. CO present. Pet th katinast, Marleny and therapy dog, Gustavo present. Activity Type: 1:1 Intervention/Activity: Patient engaged in animal assisted therapy. Patient pet t herapy dog with both upper extremities. Patient gave dog treat with right upper extremity x3. Attempted to use left upper extremity to pass ball to dog. All nee ds were in reach on departure. Assessment: Patient was pleasant. Required max cues to use right and left upper extremities. Patient was smiling and giving appropriate facial expressions when interacting with dog. Plan: spending time outside, basketball CHANDRAKANT QuintanillaS Certified Frame Runner * Lady Downey MS,[facility]-DEPUTY HEAD - 09/13/2022 2:50 PM CDT SPEECH-LANGUAGE PATHOLOGY 09/13/22 1450 Behavior Comments* Patient seated upright in recliner upon DEPUTY HEAD arrival. CO present upon S LP arrival and exit. Dysphagia Goals Therapy Activity Comments DEPUTY HEAD provided education regarding results of videoswall ow study completed this date. Patient educated regarding risk of aspiration with thin liquids, protective factors, diet recommendations, and safe swallowing str ategies. Recommend diet initiation of pureed textures and thin liquids at this t marvin. Safe swallowing strategies outlined below. Swallow Recommendations PO: Pureed, Thin liquids NPO: (Per discretion of RD and medical team) Medications: Crushed in puree, As tolerated Ice Chip Trials: Unlimited Supervision: 1:1 Positioning: Up in chair for all meals Swallow Strategies: 100% supervision to provide cues for swallow strategies dur ing meals, Limit distractions during PO, Small bites/sips, Slow rate of intake, Alternate liquids/solids Oral Hygiene: 3 times per day Patient appeared tearful following education. DEPUTY HEAD asked "are you excited you get to eat?" to which Patient verbalized "yes." Patient Will Participate in Instrumental Swallow Evaluation to Determine Appropr iate Diet Recommendations with Complete independence;Met Assessment Upgraded Patient diet this date. Will continue to monitor to ensure c onsistent tolerance. Plan Dysphagia: -- meal f/u 09/14/22 Language: -- establish form of communication -- yes/no accuracy -- 1-step commands -- receptive ID Family training on 09/14/22. * Christiana Franco OT - 09/13/2022 2:41 PM CDT OCCUPATIONAL THERAPY NOTE Name: Derek Castro : 1945 Age: 77 y.o. Admission Date: 08/24/2022 LOS: 20 days Date of Service: 09/13/2022 09/13/22 1130 Time Calculation Start Time 1130 Stop Time 1200 Time Calculation 30 $$ Phys ADL Skills 2 units Subjective Subjective Pt upright in chair upon arrival. Agreeable to OT session. Transfers Transfer: Assistive Device Hand Hold Assist Transfer Comment Pt ambulates around unit holding OT's hand contact guard assist . Instrumental Acitivities of Daily Living (IADL) IADL Cues Pt washes dishes standing at the sink. Performs well with cues for tho roughness. Assist to fully complete task. Assessment Assessment Pt with improved participation and mobility this morning. Has several appropriate facial expressions and head nods. Plan Plan Comments command following; ADLs; family training Type of Note Type of Note Daily Therapist: VIN Mason/[place] [id number] Date: 09/13/2022 * Christiana Franco OT - 09/13/2022 2:34 PM CDT OCCUPATIONAL THERAPY NOTE Name: Derek Peggy Matthew Shell : 1945 Age: 77 y.o. Admission Date: 08/24/2022 LOS: 20 days Date of Service: 09/13/2022 09/13/22 0730 Time Calculation Start Time 0730 Stop Time 0745 Time Calculation 15 Missed Minutes 15 Minutes Reasons for Missed Minutes Refused Plan to Make Up Missed Minutes later this afternoon $$ Phys ADL Skills 1 unit Subjective Subjective Pt supine upon arrival. Appears to be angry this morning Grooming Grooming Assist Total Assist Grooming Comments Handed pt washcloth but he drops and refuses to wash his face. Lower Body Dressing Lower Dressing Comments Attempted to don pants for pt to pull up. Pt bridges to pull up but unsuccessful and continues to refuse OOB. Bed Mobility Bed Mobility Comments Attempted dependent supine to sit x3 however pt strongly r esists. Tears hands out of therapist's hands repeatedly. Assessment Assessment Pt refusing OOB this morning; will attempt again later today. Plan Plan Comments command following; ADLs; family training Type of Note Type of Note Daily Therapist: Christiana Franco OTR/L [id number] Date: 09/13/2022 * Louise Mcdonald, PT - 09/13/2022 1:00 PM CDT PHYSICAL THERAPY 09/13/22 1300 Type of Note Type of Note Daily Time Calculation Start Time 1300 Stop Time 1330 Time Calculation 30 $$ PT Therapeutic Activity 2 units Subjective Subjective Patient appears more fatigued and resistant to therapy. Once up, atte mpting to get back to bed. Transfers Transfer: Assistive Device Hand Hold Assist Transfer: Sit to stand assist level Minimum assistance Transfer: Sit to stand type of assist Facilitation of weight shift Transfer: Stand to sit assist level Minimum assistance Transfer: Stand to sit type of assist Facilitation of weight shift Transfer: Stand pivot assist level Minimum assistance Transfer: Stand pivot type of assist For safety Transfer Comment Patient transitioned from tilt in space wheelchair to recliner, attempted to get back to bed multiple times. Responded well to redirection and verbal cueing (moderate cueing). Activity PT Therapeutic Activities Called on phone to discuss plan for tomorrow. Wif e agreeable to discharge tomorrow if training goes well. She is eage to get him home. She now plans to be on the unit by 0800. Assessment Assessment Patient resting in recliner chair. Plan in place for tomorrow with nadege cole. Plan Comments Family training 09/14 Louise Mcdonald PT, DPT * Louise Mcdonald PT - 09/13/2022 10:45 AM CDT PHYSICAL THERAPY 09/13/22 1045 Type of Note Type of Note Daily Time Calculation Start Time 1045 Stop Time 1115 Time Calculation 30 $$ Professional Contact 1 unit $$ Gait / Mobility 1 unit $$ PT Therapeutic Activity 1 unit Subjective Subjective Patient up in chair, initiated transfer for gait without prompting. Transfers Transfer: Assistive Device Hand Hold Assist Transfer: Sit to stand assist level Minimum assistance Transfer: Sit to stand type of assist Facilitation of weight shift Transfer: Stand to sit assist level Minimum assistance Transfer: Stand to sit type of assist For safety Transfer: Stand pivot assist level Minimum assistance Gait Gait Distance 1000 feet (+ 200 feet) GAIT: Assist Level Minimum assistance GAIT: Type of Assist Facilitation of weight shift Gait: Assistive Device None;Hand Hold Assist Gait: Patterns Trunk lean forward;Increased gait velocity Activity PT Therapeutic Activities Attempted to fill out NCAA bracket for basketball tour nament. Patient mildly engaged and showing signs of interest throughout. Assessment Assessment Patient with improved engagement in therapy this session. Plan Comments Family training 09/14 Louise Mcdonald PT, DPT * Lady Downey MS,[facility]-DEPUTY HEAD - 09/13/2022 9:30 AM CDT SPEECH-LANGUAGE PATHOLOGY 09/13/22 0930 Behavior Comments* Patient seated upright in wheelchair upon DEPUTY HEAD arrival. CO present at S LP arrival and exit. Dysphagia Goals Therapy Activity Comments Attempted to initiate oral care prior to po trials thi s date. Patient noted to accept toothbrush, however, did not initiate act of bru shing teeth. DEPUTY HEAD attempted to provide [place] assistance; however, Patient reluctant , pushing DEPUTY HEAD hand away and turning head. Despite extensive attempts, encouragem ent, and cueing, Patient did not engage in therapy task at this time. Given incr eased frustration, task discontinued. Assessment Session limited by Patient decreased engagement and participation in therapy activities. Plan Dysphagia: -- ice chips -- trials of thin liquids -- swallow exercises as able -- Video swallow 09/13/22 Language: -- establish form of communication -- yes/no accuracy -- 1-step commands -- receptive ID Family training on 09/14/22. * Louise Mcdonald PT - 09/13/2022 9:00 AM CDT PHYSICAL THERAPY 09/13/22 0900 Type of Note Type of Note Daily Time Calculation Start Time 09 Stop Time 929 Time Calculation 30 $$ PT Therapeutic Activity 2 units Subjective Subjective Patient resistive to out of bed, but with max assist and encouragemen t, agreeable. Patient remained non-verbal throughout Bed Mobility Bed Mobility: Supine to sit assist level Maximum assistance;Assist of two Transfers Transfer: Assistive Device Hand Hold Assist Transfer: Sit to stand assist level Maximum assistance Transfer: Sit to stand type of assist Facilitation of weight shift Transfer: Stand to sit assist level Maximum assistance Transfer: Stand to sit type of assist Facilitation of weight shift Transfer: Stand pivot assist level Maximum assistance Transfer: Stand pivot type of assist Facilitation of weight shift Toileting Transfer Toilet Transfer Technique Posterior transfer onto receptacle Toilet Transfer Assist Maximum assistance Daily Care Urinary Catheter / Perineal Care Indwelling urinary catheter care wipes Activity PT Therapeutic Activities Resistant to mobilizing out of bed, once up attempt to brush teeth however patient could not motor plan activity and required dependent assist. Then, transitioned to toilet. Patient had bowel accident before sitting on toilet to complete full bowel movement. Assessment Assessment Patient mildly agitated this AM, but did have a bowel movement and ap peared more engaged after attempts at grooming, once up in chair. CO in room thr oughout to aide this therapist and remained in room post session. Plan Comments Family training 0809/14 Louise Mcdonald PT, DPT * Bubba Brian RN - 09/13/2022 6:38 AM CDT [facility] Behavior Summary of Shift Name: Derek Castro Jr. : 1945 Age: 77 y.o. Admission Date: 08/24/2022 LOS: 20 days Date of Service: Reason for increased observation? Impulsiveness, poor safety awareness One-on-one safety watch: Yes Q15-30 minute safety watch: No Suicide precaution: No Telemonitoring: No Behavior outbursts during this shift? No Description and time(s) of event:N/A Agitation during this shift? No Description and time(s) of event: N/A Active suicide ideation during this shift? No Description and time(s) of event: n/a Poor safety awareness or impulsivity during this shift? Yes Description and time(s) of event: Pt awoke around 0400 and tried has tried to ge t out of bed multiple times. Noteworthy visitor interactions during this shift? None Sleep/rest patterns observed during this shift? Slept for the majority of the ni ght Therapeutic interventions: Redirection and orientation Additional Comments: it's worth to have CO as his behavior changes drastically. * Rosa Wheeler MD - 09/13/2022 5:18 AM CDT Physical Medicine & Rehabilitation Progress Note Today's Date: 09/13/2022 Admission Date: 08/24/2022 LOS: 20 days Insurance: [employer] Principal Problem: Acute ischemic left MCA stroke (HCC) Active Problems: CAD (coronary artery disease) Stage 3b chronic kidney disease (HCC) Hyperlipidemia Primary hypertension Hypothyroidism Seizure disorder (HCC) History of multiple strokes Global aphasia Acute right hemiparesis (HCC) Impaired mobility and activities of daily living Risk for falls Assessment/Plan: Derek Castro Jr. is a 77 y.o. male admitted to [facility] on 08/24/2022 with the following issues: stroke Rehabilitation Plan Tentative discharge date: Rehabilitation: Patient will continue with comprehensive therapies including phy sical therapy, occupational therapy, speech & language pathology, specialized rehab nursing, neuropsychology and physiatry oversight. Goals: at ambulation level, household mobility, Stand by assistance, With caregi tara assistance, Progressing Recommended therapy after discharge: Home with Assistance, and, Home Health Sett ing PT recommended equipment: TBD OT recommended equipment: Too early to determine Daily Functional Update: Transfers Transfer: Assistive Device: Hand Hold Assist (09/12/2022 1:30 PM) Transfer: Sit to stand assist level: Moderate assistance; Maximum assistance ( 1:30 PM) Transfer: Stand pivot assist level: Moderate assistance (09/12/2022 1:30 PM) No data recorded Gait/ Mobility Gait: Assistive Device: None; Hand Hold Assist (09/12/2022 1:30 PM) GAIT: Assist Level: Minimum assistance; Moderate assistance (09/12/2022 1:30 PM) Gait Distance: 400 feet (09/12/2022 1:30 PM) No data recorded No data recorded Toileting Toileting Assist: Total Assist (09/06/2022 1:00 PM) No data recorded Toilet Transfer Assist: Contact guard assistance (09/11/2022 1:30 PM) Dressing LE Dressing Assist: Maximum Assist (09/12/2022 10:30 AM) UE Dressing Assist: Moderate Assist (09/12/2022 10:30 AM) Current Medical Problems/Risks of Medical Complications/Management Acute Left M2 occlusions/p IRw/ [id number] 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 Hx of multiple ischemic strokes(2019, R MCA 05/2022, L NILA 07/2022) Severe dysphagia and global aphasia, impaired cognition, impaired mobility with right hemiplegia, impaired ADLs >Will continue indefinitely on Eliquis 5mg BID and ASA 81mg daily per Neurology recommendations > 30 day cardiac event monitoror ILR at discharge and will maintain > PT/OT/DEPUTY HEAD to eval and treat > Sertraline as below, unable to utilize modafinil secondary to PEG or amantadine sec to recent seizure concerns > Baclofen 5 mg qhs (start 09/05) for LAYA spasticity H/o Seizures > Continue CHILD DEVELOPMENT ASSOCIATE TEACHER Keppra 500 mg BID > Low threshold for neurology consult versus increasing Keppra to 1000 mg twice daily secondary to concerns for breakthrough seizure on 08/31/2022 lasting less than 10 seconds without tonic-clonic movement Oropharyngeal Dysphagia Concern for aspiration - Last video swallow 08/20 did not go well thus PEG placed on 08/20 - Emesis with TF 09/10 - Chest xray 09/10: similar basilar predominant lung opacities > PEG care, abdominal binder > On bolus feeds and water thr peg, NPO, ice chip protocol > monitor labs-CMP, mag/phos while on TF > consulted siebel crm developer > DEPUTY HEAD to work with patient on dysphagia, plan for repeat video swallow 09/13. Agitation, restlessness Disturbed sleep wake cycle, insomnia Agitation continues to improve >Melatonin 5mg QHS, decrease trazodone to 50 mg QHS, and restart seroquel 12.5mg at bedtime. > Sleep hygiene > Redirection and reorientation > protect tubes and lines > Continue am SSRI (zoloft 50 mg) started 08/30 to improve daytime alertness/mood Neurogenic bladder/urinary retention : Lake replaced 08/22 and fter failed voiding trial > Discontinue doxazosin d/t orthostasis > Will keep Lake in until agitation, aphasia and understanding improve some, as he was not tolerating bladder scans/timed voids/straight caths during last trial. Has a history of urinary retention does have a Urologist at home. If second voiding trial is not successful we will discharge home with Lake with follow-up with urology. Neurogenic bowel: loose stools > Hold senna docusate > May need a set bowel time if incontinence continues. > Will discontinue magox for now, replace magnesium via IV in future > Fiber supplement HTN/ HLD CAD s/p CABG x5(2009) Orthostatic hypotension Hypomagnesemia, resolved - Echo 08/10 with EF 60%, no WMA or ventricle dysfunction - EKG 09/10: NSR, QTc 420 > SBP goal:less than 160 >Cont statin and ASA > Continue amlodipine > Consult internal medicine, appreciate recommendations > No change to BP regimen > Repeat orthostatics 09/07 positive > Discontinued carvedilol 09/10 CKD stage 3 - BaselineCr~1.8-2 > Continue to monitor, avoid nephrotoxic meds Lethargy - Repeat labs 09/10 WNL - Lactic acid normal - Secondary to mood versus sleep > Continue to monitor Oral thrush - S/p nystatin > oral cares BID Hypothyroidism >Cont CHILD DEVELOPMENT ASSOCIATE TEACHER levothyroxine Rash - Dry, red macular rash noted to entire back >Cont Emollient cream Pulmonary nodules - Incidental finding with multiple subcentimeter pulmonary nodules, indeterminan t on initial examination. No dominant pulmonary mass > Follow-up CT chest in 3 months recommended to evaluate for stability Pain Management: pain seems well controlled, heat / ice PRN, topical medication and Tylenol PRN Skin: Encourage the patient to continue to inspect their skin and perform pressu re relief. BMI: Body mass index is 31.11 kg/m. Mental Health, high risk of depression with stroke and aphasia: consulted neuropsychology to provide support / counseling and monitor for depres miladys Sertraline as above DVT Prophylaxis: apixaban GI ppx: pepcid 20mg daily while on tube feeds. Subjective No acute events overnight. Continuous observer at side. Per observer, patient wa s calm throughout the night and slept well. Patient is non-verbal, but intermitt ently makes mouth movements and responds with hand gestures. Upon further questi oning, he motioned me to leave. Therapy notes reviewed, and patient is progressi ng. Lake catheter with 875 mL output over last 24 hours. Incontinent of bowel w ith last BM 09/12. Objective Vital Signs: Last Filed Vital Signs: 24 Gladis r Range BP: 159/85 (09/14 399) Temp: 36.8 C (98.3 F) (09/14 399) Pulse: 72 (09/14 399) Respirations: 18 PER MINUTE (09/14 399) SpO2: 94 % (09/14 399) O2 Device: None (Room air) (09/14 399) BP: (117-159)/(69-85) Temp: [36.7 C (98.1 F)-36.9 C (98.5 F)] Pulse: [65-81] Respirations: [15 PER MINUTE-20 PER MINUTE] SpO2: [93 %-95 %] O2 Device: None (Room air) Vitals: 08/27/22 0421 09/03/22 0528 09/10/22 0654 Weight: 96.7 kg (213 lb 3 oz) 90 kg (198 lb 6.6 oz) 91.1 kg (200 lb 13.4 oz) Intake/Output Summary: (Last 24 hours) Intake/Output Summary (Last 24 hours) at 09/13/2022 0518 Last data filed at 09/13/2022 0400 Gross per 24 hour Intake -- Output 1125 ml Net -1125 ml Last Bowel Movement Date: 09/11/22 Labs--reviewed Results for orders placed or performed during the hospital encounter of 08/24/22 (from the past 24 hour(s)) BASIC METABOLIC PANEL Collection Time: 09/13/22 6:43 AM # # Low-High Sodium 139 137 - 147 MMOL/L Potassium 3.3 (L) 3.5 - 5.1 MMOL/L Chloride 108 98 - 110 MMOL/L CO2 23 21 - 30 MMOL/L Anion Gap 8 3 - 12 Glucose 157 (H) 70 - 100 MG/DL Blood Urea Nitrogen 31 (H) 7 - 25 MG/DL Creatinine 1.60 (H) 0.4 - 1.24 MG/DL Calcium 8.8 8.5 - 10.6 MG/DL eGFR 44 (L) >60 mL/min CBC CELLULAR THERAPEUTICS Collection Time: 09/13/22 6:43 AM # # Low-High White Blood Cells 7.0 4.5 - 11.0 K/UL RBC 4.34 (L) 4.4 - 5.5 M/UL Hemoglobin 13.1 (L) 13.5 - 16.5 GM/DL Hematocrit 39.5 (L) 40 - 50 % MCV 91.0 80 - 100 FL MCH 30.3 26 - 34 PG MCHC 33.2 32.0 - 36.0 G/DL RDW 14.8 11 - 15 % Platelet Count 192 150 - 400 K/UL MPV 9.5 7 - 11 FL MAGNESIUM Collection Time: 09/13/22 6:43 AM # # Low-High Magnesium 1.9 1.6 - 2.6 mg/dL PHOSPHORUS Collection Time: 09/13/22 6:43 AM # # Low-High Phosphorus 2.5 2.0 - 4.5 MG/DL Medications: Scheduled Meds:amLODIPine (NORVASC) tablet 5 mg, 5 mg, PEG Tube, QDAY apixaban (ELIQUIS) tablet 5 mg, 5 mg, SEE ADMIN INSTRUCTIONS, BID aspirin chewable tablet 81 mg, 81 mg, PEG Tube, QDAY atorvastatin (LIPITOR) tablet 80 mg, 80 mg, PEG Tube, QDAY baclofen (LIORESAL) tablet 5 mg, 5 mg, Oral, QHS Diet Enteral Feeding Bolus, , SEE ADMIN INSTRUCTIONS, 5XDAY (6,12,15,18,22) And Water Bolus, 200 mL, PEG Tube, 5XDAY (6,12,15,18,22) [Held by Provider] docusate sodium (COLACE) oral solution 100 mg, 100 mg, PEG Tu be, BID famotidine (PEPCID) tablet 20 mg, 20 mg, PEG Tube, QDAY levETIRAcetam (KEPPRA) oral solution 500 mg, 500 mg, PEG Tube, BID levothyroxine (SYNTHROID) tablet 125 mcg, 125 mcg, PEG Tube, QDAY(07) melatonin tablet 5 mg, 5 mg, PEG Tube, QHS Nutrisource Fiber Supplement Packets, , SEE ADMIN INSTRUCTIONS, QDAY(18) QUEtiapine (SEROquel) tablet 12.5 mg, 12.5 mg, Oral, QHS [Held by Provider] senna (SENOKOT) oral syrup 17.6 mg, 10 mL, PEG Tube, QHS sertraline (ZOLOFT) tablet 50 mg, 50 mg, Feeding Tube, QDAY simethicone (MYLICON) chew tablet 80 mg, 80 mg, Per G Tube, TID traZODone (DESYREL) tablet 50 mg, 50 mg, PEG Tube, QHS Continuous Infusions: PRN and Respiratory Meds:acetaminophen Q4H PRN, bisacodyL QDAY PRN, emollient MO N, pancrelipase 20,880 Units/sodium bicarbonate 650 mg (KU CLOG DESTROYER) PRN ( Orchard Worker from Rx), vitamin A & D PRN Physical Exam General: Alert, NAD HEENT: NCAT, EOMI, good eye contact Heart: Skin well perfused Lungs: NWAB on RA Abdomen: Soft, non-distended, normoactive bowel sounds in 4+ quadrants, PEG site appears c/d/i with trace erythema at 12 o'clock : Lake catheter in place, draining light yellow urine Extremities: No edema, Neuro: Alert, non verbal, understands basic simple one step commands intermitten tly. - L elbow flexion MAS 1+/5 - L arm adduction MAS 1/5 Psych: pleasant MSK: no atrophy Labs & Therapy Notes Reviewed Rosa Wheeler MD Associated attestation - Esme Harkins MD - 09/13/2022 2:05 PM CDT ATTESTATION I personally performed the tineo portions of the E/M visit, discussed case with re sident and concur with resident documentation of history, physical exam, assessm ent, and treatment plan unless otherwise noted. Family arriving for training tomorrow early am. Presently planning to take him h ome. Possibly post training, may discharge home tomorrow. Follow MBS results today. Irrespective of results, will need tube feed teaching sec to variable participation and cognition thr the day. Staff name: Esme Harkins MD Date of Service: 09/13/2022 * Christiana Franco OT - 09/12/2022 3:14 PM CDT OCCUPATIONAL THERAPY NOTE Name: Derek Castro Jr. : 1945 Age: 77 y.o. Admission Date: 08/24/2022 LOS: 19 days Date of Service: 09/12/2022 Phone call with , Joycelyn, about pt's progress and discharge barriers. Pt limi earlien by fluctuating performance daily. Varies from moderate assist x2 for mobilit y and maximum cues for all tasks, safety to contact guard assist for mobility an d following appropriate commands. Pt truly requires 24/7 assist and supervision to prevent falls, pulling of tubes, and unsafe actions. Encouraged Joycelyn and raoul guadalupe to consider SNF if burden of care is too high. Joycelyn provides information on the system they have in place for home (purchased DME, system for overnight car e, home set up, home health assist, etc). Plan for family training 2:00 pm on Fr wolfgang for further discussion of discharge disposition. Therapist: VIN Mason/Ludivina [id number] Date: 09/12/2022 * Lady Downey MS,[facility]-DEPUTY HEAD - 09/12/2022 2:00 PM CDT SPEECH-LANGUAGE PATHOLOGY 09/12/22 1400 Behavior Comments* Patient seated upright in wheelchair upon DEPUTY HEAD arrival. PT present upon DEPUTY HEAD arrival. CO present at DEPUTY HEAD exit. Dysphagia Goals Therapy Activities PO trials Therapy Activity Comments Attempted to initiate po trials of ice chips and thin liquids this date. Patient did not attempt to engage in po trials this date. DEPUTY HEAD attempted to provide po trials to Patient, however, he was noted to seal lips a nd turn head. DEPUTY HEAD discontinued task at that time. Problem Solving Goals Therapy Activities Sequencing Therapy Activity Comments Given decreased engagement in tasks, Patient transitio eva from wheelchair to bed. Patient required maximal assist from 2 staff members . Patient did not follow commands during completion of transfer. DEPUTY HEAD and CO prov ided maximal and tactile cues throughout. Patient not receptive to cues this jeremie e. Writing Goals Therapy Activities Copy;Trace Therapy Activity Comments Attempted to engage Patient in written expression task this date. Patient did not engage in grasping writing utensil this date. Despite maximal cues and encouragement, Patient did not attempt to complete writing at this time. Task discontinued. Verbal Expression Goals Therapy Activities Nonverbal communication Therapy Activity Comments Attempted to engage Patient in use of nonverbal yes/no communication board this date. DEPUTY HEAD asked personal/ concrete questions. Patient did not attempt to answer questions this date. Patient was, however, noted to no d head when asked "do you want the lights off?". Assessment Decreased engagement and participation appreciated in therapy tasks t his date. Suspect this contributed to poor performance. Plan Dysphagia: -- ice chips -- trials of thin liquids -- swallow exercises as able -- Video swallow 09/13/22 Language: -- establish form of communication -- yes/no accuracy -- 1-step commands -- receptive ID Family training on 09/14/22. Lady Downey MS, CCC-DEPUTY HEAD * Louise Mcdonald, PT - 09/12/2022 1:30 PM CDT PHYSICAL THERAPY 09/12/22 1330 Type of Note Type of Note Daily Time Calculation Start Time 1330 Stop Time 1400 Time Calculation 30 $$ Professional Contact 1 unit $$ Gait / Mobility 2 units Subjective Subjective Patient more engaged this session but still non-verbal throughout and minimal command follow. Transfers Transfer: Assistive Device Hand Hold Assist Transfer: Sit to stand assist level Moderate assistance;Maximum assistance Transfer: Sit to stand type of assist Facilitation of weight shift Transfer: Stand to sit assist level Moderate assistance Transfer: Stand to sit type of assist Increased time to complete Transfer: Stand pivot assist level Moderate assistance Transfer: Stand pivot type of assist Facilitation of weight shift Gait Gait Distance 400 feet GAIT: Assist Level Minimum assistance;Moderate assistance GAIT: Type of Assist Facilitation of weight shift;For safety Gait: Assistive Device None;Hand Hold Assist Gait Comment Requires increased cueing to initiate gait, sometimes during mid ga it as well. Assessment Assessment Patient with improved mobility, however still with maximal assist nee ded for initiation and cueing. Plan Comments Family training on Saturday at 2. Monitor orthostasis. continue gait and other automatic activities, stairs, standing endurance/balance, dynamic balance as able, outcomes pending comprehension Louise Mcdonald PT, DPT * Christiana Franco OT - 09/12/2022 10:30 AM CDT OCCUPATIONAL THERAPY NOTE Name: Derek Castro Jr. : 1945 Age: 77 y.o. Admission Date: 08/24/2022 LOS: 19 days Date of Service: 09/12/2022 09/12/22 1030 Time Calculation Start Time 1030 Stop Time 1130 Time Calculation 60 $$ Phys ADL Skills 4 units Subjective Subjective Pt upright in chair upon arrival. Agreeable to OT session with encour agment. Precautions Comments aphasia, heart monitor phone; PEG Bathing Bath/Shower Soap and water shower/bath Bathing - Chest Assist Yes Bathing - Left Arm Assist Yes Bathing - Right Arm Assist Yes Bathing - Abdomen Assist Yes Bathing - Perineal Area Assist Yes Bathing - Buttocks Assist Yes Bathing - Left Upper Leg Assist Yes Bathing - Right Upper Leg Assist Yes Bathing - Left Lower Leg Including Foot Assist Yes Bathing - Right Lower Leg Including Foot Assist Yes Bathing Assist Shower;Total Assist Bathing Position Shower - standing for ___ % tasks Bathing Comments Pt briefly sits during shower and maintains standing with inter mittent minimal assist. Pt follows commands with ~80% accuracy for lifting arms/ sitting/standing while OT bathed pt. Upper Body Dressing UE Dressing Assist Moderate Assist Upper Dressing Position Sitting in chair Upper Dressing Comments assist for orientation of shirt and pulling down. Lower Body Dressing LE Dressing Assist Maximum Assist Lower Dressing Comments assist for lake management, threading BLE. Pt assists i n pulling over hips. Tub/Shower Transfer Tub/Shower Comments Pt ambulates to/from shower with minimal assist x2. Pt requi ring increased assist for static standing balance today from maximum assist to m inimal assist. Increased retropulsion. Transfers Transfer: Assistive Device Hand Hold Assist Transfer Comment minimal assist x2 for ambulation in hallway. Assessment Assessment Pt limited by flucuation in daily performance. pt varies from contact guard/ minimal assist x1 to moderate assist x2 for mobility and safety. Plan to discuss alternate discharge locations with family if possible. Plan Plan Comments command following; ADLs; family training Type of Note Type of Note Daily Therapist: VIN Mason/Ludivina [id number] Date: 09/12/2022 * Lady Downey MS,[facility]-DEPUTY HEAD - 09/12/2022 9:30 AM CDT SPEECH-LANGUAGE PATHOLOGY 09/12/22 8130 Behavior Comments* Patient seated upright in wheelchair upon DEPUTY HEAD arrival. CO present upon DEPUTY HEAD arrival and exit. Dysphagia Goals Therapy Activities PO trials PO Trials Ice chips;Thin liquids Therapy Activity Comments Oral care completed in an attempt to reduce potential aspiration of bacteria-laden oropharyngeal secretions prior to po trials. Annamarie law completed oral care while standing at the sink given staff assist of 2. Annamarie law required [place] assistance to cover all surfaces of teeth/tongue. Patient asked t o spit remaining toothpaste into cup/sink. Patient did not follow command this d ate. Patient then transitioned back to room for initiation of po trials. DEPUTY HEAD uti johanna ba suction to remove remaining toothpaste from oral cavity. Patient independently initiated x10 ice chips and x5 thin liquid via cup trials. Patient demonstrated cough response following 4/5 trials of thin liquids this date. No overt s/s of distress appreciated with ice chip intake. Plan for repeat swallowi ng instrumentation on 09/13/22. Recommend Patient remain NPO pending results. Assessment Repeat video swallow study scheduled for 09/13/22. Recommend Patient r emain NPO with ice chip protocol pending results. Plan Dysphagia: -- ice chips -- trials of thin liquids -- swallow exercises as able Language: -- establish form of communication -- yes/no accuracy -- 1-step commands -- receptive ID Family training on 09/14/22. Lady Downey, MS, CCC-DEPUTY HEAD * Louise Mcdonald, PT - 09/12/2022 9:00 AM CDT PHYSICAL THERAPY 09/12/22 0900 Type of Note Type of Note Daily Time Calculation Start Time 0900 Stop Time 0930 Time Calculation 30 $$ PT Therapeutic Activity 2 units Subjective Subjective Patient non-verbal during session Bed Mobility Bed Mobility: Supine to sit assist level Maximum assistance Bed Mobility: Supine to sit type of assist With head of bed elevated Transfers Transfer: Sit to stand assist level Maximum assistance Transfer: Sit to stand type of assist Facilitation of weight shift;Facilitation of hip extension;Increased time to complete;Requires verbal cues for sequencing Transfer: Stand to sit assist level Moderate assistance Transfer: Stand to sit type of assist Facilitation of weight shift Transfer: Stand pivot assist level Maximum assistance Transfer: Stand pivot type of assist Facilitation of weight shift;Increased time to complete;Requires verbal cues for sequencing Transfer Comment Patient with increased retropulsion noted this AM session, requ ired increased physical assistance. Activity PT Therapeutic Activities Transfer to chair only due to increased time required to initiate out of bed mobility. Assessment Assessment Patient continues to fluctuate with physical and cognitive abilities. Due to fluctuation, patient has made minimal progress while on rehab unit, which silverio concern from this therapist regarding family being able to adequately c are for patient upon discharge. This therapist has not personally performed any family training, but from discussions with other team members, patient's is in a power chair and unsure if patient's son has been present for training. The family plans to attend training on Saturday, however patient's discharge is plann ed for this coming Saturday. Concerned that family is unaware of the high level of care the patient requires to discharge to the home setting. Will attempt to call later this date, as well as discuss options with the interdisciplinary care team. Plan Comments Monitor orthostasis. continue gait and other automatic activities, stai rs, standing endurance/balance, dynamic balance as able, outcomes pending compre trevor Mcdonald PT, DPT * Maureen Lyman RN - 09/12/2022 7:07 AM CDT Acute Inpatient Rehabilitation Behavior Summary of Shift Name: Derek Castro Jr. : 1945 Age: 77 y.o. Admission Date: 08/24/2022 LOS: 19 days Date of Service: 09/12/2022 Reason for increased observation? Unsafe behavior. Pulling on G tube and lake cath One-on-one safety watch: Yes Q15-30 minute safety watch: No Suicide precaution: No Telemonitoring: No Behavior outbursts during this shift? Yes Description and time(s) of event: Agitatted , restless, try to kicking staff. Agitation during this shift? Yes Description and time(s) of event: at 0400 pt appear agitated and restless and tr debra to get out off the bed. Active suicide ideation during this shift? No Description and time(s) of event: NA Poor safety awareness or impulsivity during this shift? Yes Description and time(s) of event: at 0400 and most of the shift tried to get out of bed, try to pull on G tube and lake cath. Noteworthy visitor interactions during this shift? NA Sleep/rest patterns observed during this shift? Up most of the shift. Therapeutic interventions: Redirection and Reorientation Additional Comments: NA * Esme Harkins MD - 09/12/2022 6:24 AM CDT ATTESTATION I personally performed the tineo portions of the E/M visit, discussed case with re sident and concur with resident documentation of history, physical exam, assessm ent, and treatment plan unless otherwise noted. Staff name: Esme Harkins MD Date of Service: 09/12/2022 Physical Medicine & Rehabilitation Progress Note Today's Date: 09/12/2022 Admission Date: 08/24/2022 LOS: 19 days Insurance: [employer] Principal Problem: Acute ischemic left MCA stroke (HCC) Active Problems: CAD (coronary artery disease) Stage 3b chronic kidney disease (HCC) Hyperlipidemia Primary hypertension Hypothyroidism Seizure disorder (HCC) History of multiple strokes Global aphasia Acute right hemiparesis (HCC) Impaired mobility and activities of daily living Risk for falls Assessment/Plan: Derek Castro Jr. is a 77 y.o. male admitted to [facility] on 08/24/2022 with the following issues: stroke Rehabilitation Plan Tentative discharge date: Rehabilitation: Patient will continue with comprehensive therapies including phy sical therapy, occupational therapy, speech & language pathology, specialized rehab nursing, neuropsychology and physiatry oversight. Goals: at ambulation level, household mobility, Stand by assistance, With caregi tara assistance, Progressing Recommended therapy after discharge: Home with Assistance, and, Home Health Sett ing PT recommended equipment: TBD OT recommended equipment: Too early to determine Daily Functional Update: Transfers Transfer: Assistive Device: None (09/11/2022 1:00 PM) Transfer: Sit to stand assist level: Minimum assistance (09/11/2022 1:00 PM) Transfer: Stand pivot assist level: Minimum assistance (09/11/2022 1:00 PM) No data recorded Gait/ Mobility Gait: Assistive Device: None; Hand Hold Assist (intermittent handhold assi st) (09/11/2022 1:00 PM) GAIT: Assist Level: Minimum assistance (09/11/2022 1:00 PM) Gait Distance: 500 feet (+ submaximal distances) (09/11/2022 1:00 PM) No data recorded No data recorded Toileting Toileting Assist: Total Assist (09/06/2022 1:00 PM) No data recorded Toilet Transfer Assist: Contact guard assistance (09/11/2022 1:30 PM) Dressing LE Dressing Assist: Moderate Assist (09/11/2022 7:30 AM) UE Dressing Assist: Stand By Assist (09/11/2022 7:30 AM) Current Medical Problems/Risks of Medical Complications/Management Acute Left M2 occlusions/p IRw/ aTICI3 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 Hx of multiple ischemic strokes(2020, R MCA 05/2022, L NILA 07/2022) Severe dysphagia and global aphasia, impaired cognition, impaired mobility with right hemiplegia, impaired ADLs >Will continue indefinitely on Eliquis 5mg BID and ASA 81mg daily per Neurology recommendations > 30 day cardiac event monitoror ILR at discharge and will maintain > PT/OT/DEPUTY HEAD to eval and treat > Sertraline as below, unable to utilize modafinil secondary to PEG or amantadine sec to recent seizure concerns > Baclofen 5 mg qhs (start 09/05) for LAYA spasticity H/o Seizures > Continue CHILD DEVELOPMENT ASSOCIATE TEACHER Keppra 500 mg BID > Low threshold for neurology consult versus increasing Keppra to 1000 mg twice daily secondary to concerns for breakthrough seizure on 08/31/2022 lasting less than 10 seconds without tonic-clonic movement Oropharyngeal Dysphagia Concern for aspiration - Last video swallow 08/20 did not go well thus PEG placed on 08/20 - Emesis with TF 09/10 - Chest xray 09/10: similar basilar predominant lung opacities > PEG care, abdominal binder > On bolus feeds and water thr peg, NPO, ice chip protocol > monitor labs-CMP, mag/phos while on TF > consulted siebel crm developer > DEPUTY HEAD to work with patient on dysphagia, plan for repeat video swallow 09/13. Agitation, restlessness Disturbed sleep wake cycle, insomnia Agitation continues to improve >Melatonin 5mg QHS, decrease trazodone to 50 mg QHS, and restart seroquel 12.5mg at bedtime. > Sleep hygiene > Redirection and reorientation > protect tubes and lines > Continue am SSRI (zoloft 50 mg) started 08/30 to improve daytime alertness/mood Neurogenic bladder/urinary retention : Lake replaced 08/22 and fter failed voiding trial > Discontinue doxazosin d/t orthostasis > Will keep Lake in until agitation, aphasia and understanding improve some, as he was not tolerating bladder scans/timed voids/straight caths during last trial. Has a history of urinary retention does have a Urologist at home. If second voiding trial is not successful we will discharge home with Lake with follow-up with urology. Neurogenic bowel: loose stools > Hold senna docusate > May need a set bowel time if incontinence continues. > Will discontinue magox for now, replace magnesium via IV in future > Fiber supplement HTN/ HLD CAD s/p CABG x5(2009) Orthostatic hypotension Hypomagnesemia, resolved - Echo 08/10 with EF 60%, no WMA or ventricle dysfunction - EKG 09/10: NSR, QTc 420 > SBP goal:less than 160 >Cont statin and ASA > Continue amlodipine > Consult internal medicine, appreciate recommendations > No change to BP regimen > Repeat orthostatics 09/07 positive > Discontinued carvedilol 09/10 CKD stage 3 - BaselineCr~1.8-2 > Continue to monitor, avoid nephrotoxic meds Lethargy - Repeat labs 09/10 WNL - Lactic acid normal - Secondary to mood versus sleep > Continue to monitor Oral thrush - S/p nystatin > oral cares BID Hypothyroidism >Cont CHILD DEVELOPMENT ASSOCIATE TEACHER levothyroxine Rash - Dry, red macular rash noted to entire back >Cont Emollient cream Pulmonary nodules - Incidental finding with multiple subcentimeter pulmonary nodules, indeterminan t on initial examination. No dominant pulmonary mass > Follow-up CT chest in 3 months recommended to evaluate for stability Pain Management: pain seems well controlled, heat / ice PRN, topical medication and Tylenol PRN Skin: Encourage the patient to continue to inspect their skin and perform pressu re relief. BMI: Body mass index is 31.11 kg/m. Mental Health, high risk of depression with stroke and aphasia: consulted neuropsychology to provide support / counseling and monitor for depres miladys Sertraline as above DVT Prophylaxis: apixaban GI ppx: pepcid 20mg daily while on tube feeds. Subjective No acute events overnight. Patient was agitated during lab collection this yamileth ng. Patient seen resting upright in bed, continuous observer at side. Per observ er report, patient was restless overnight and pulling at tubes. Patient is non-v erbal, but intermittently makes mouth movements and responds sometimes using yes /no/don't know placard. He denies any pain or nausea. Therapy notes reviewed, an d patient is progressing. . Lake catheter with 1480 mL output over last 24 hour s. Incontinent of bowel with last BM 09/11. Objective Vital Signs: Last Filed Vital Signs: 24 Gladis r Range BP: 159/84 (09/13 799) Temp: 36.7 C (98.1 F) (09/13 799) Pulse: 81 (09/13 799) Respirations: 16 PER MINUTE (09/13 799) SpO2: 93 % (09/13 799) O2 Device: None (Room air) (09/13 799) BP: (126-159)/(67-84) Temp: [36.5 C (97.7 F)-36.7 C (98.1 F)] Pulse: [60-81] Respirations: [16 PER MINUTE-18 PER MINUTE] SpO2: [93 %-99 %] O2 Device: None (Room air) Vitals: 08/27/22 0421 09/03/22 0528 09/10/22 0654 Weight: 96.7 kg (213 lb 3 oz) 90 kg (198 lb 6.6 oz) 91.1 kg (200 lb 13.4 oz) Intake/Output Summary: (Last 24 hours) Intake/Output Summary (Last 24 hours) at 09/12/2022 1039 Last data filed at 09/12/2022 0530 Gross per 24 hour Intake 200 ml Output 1430 ml Net -1230 ml Last Bowel Movement Date: 09/11/22 Labs--reviewed No results found for this visit on 08/24/22 (from the past 24 hour(s)). Medications: Scheduled Meds:amLODIPine (NORVASC) tablet 5 mg, 5 mg, PEG Tube, QDAY apixaban (ELIQUIS) tablet 5 mg, 5 mg, SEE ADMIN INSTRUCTIONS, BID aspirin chewable tablet 81 mg, 81 mg, PEG Tube, QDAY atorvastatin (LIPITOR) tablet 80 mg, 80 mg, PEG Tube, QDAY baclofen (LIORESAL) tablet 5 mg, 5 mg, Oral, QHS Diet Enteral Feeding Bolus, , SEE ADMIN INSTRUCTIONS, 5XDAY (6,12,15,18,22) And Water Bolus, 200 mL, PEG Tube, 5XDAY (6,12,15,18,22) [Held by Provider] docusate sodium (COLACE) oral solution 100 mg, 100 mg, PEG Tu be, BID famotidine (PEPCID) tablet 20 mg, 20 mg, PEG Tube, QDAY levETIRAcetam (KEPPRA) oral solution 500 mg, 500 mg, PEG Tube, BID levothyroxine (SYNTHROID) tablet 125 mcg, 125 mcg, PEG Tube, QDAY(07) melatonin tablet 5 mg, 5 mg, PEG Tube, QHS Nutrisource Fiber Supplement Packets, , SEE ADMIN INSTRUCTIONS, QDAY(18) QUEtiapine (SEROquel) tablet 12.5 mg, 12.5 mg, Oral, QHS [Held by Provider] senna (SENOKOT) oral syrup 17.6 mg, 10 mL, PEG Tube, QHS sertraline (ZOLOFT) tablet 50 mg, 50 mg, Feeding Tube, QDAY simethicone (MYLICON) chew tablet 80 mg, 80 mg, Per G Tube, TID traZODone (DESYREL) tablet 50 mg, 50 mg, PEG Tube, QHS Continuous Infusions: PRN and Respiratory Meds:acetaminophen Q4H PRN, bisacodyL QDAY PRN, emollient MO N, pancrelipase 20,880 Units/sodium bicarbonate 650 mg (KU CLOG DESTROYER) PRN ( Orchard Worker from Rx), vitamin A & D PRN Physical Exam General: Alert, NAD HEENT: NCAT, EOMI, good eye contact Heart: Skin well perfused Lungs: NWAB on RA Abdomen: Distended, tympanic to percussion on left quadrant, normoactive bowel s ounds in 4+ quadrants, PEG site appears c/d/i with trace erythema at 12 o'clock : Lake catheter in place, draining light yellow urine Extremities: No edema, Neuro: Alert, non verbal, understands basic simple one step commands intermitten tly. - L elbow flexion MAS 1+/5 - L arm adduction MAS 1/5 - L wrist extension MAS 0/5 - L knee flexion/extension MAS 0/5 Psych: pleasant MSK: no atrophy Labs & Therapy Notes Reviewed Rosa Wheeler MD * Lday Downey MS,CCC-DEPUTY HEAD - 09/11/2022 2:00 PM CDT SPEECH-LANGUAGE PATHOLOGY 09/11/22 1400 Behavior Comments* Patient seated upright in recliner upon DEPUTY HEAD arrival. OT present at DEPUTY HEAD arrival. CO present at DEPUTY HEAD exit. Dysphagia Goals Therapy Activities PO trials PO Trials Thin liquids Therapy Activity Comments Patient presented with thin liquids via cup sip this d ate. Patient consumed x8 trials this date. Cough response appreciated following x2 trials this date. Recommend Patient remain NPO at this time. In light of qual ity of life, hydration, and to reduce oropharyngeal atrophy, patient may have ic e chips (1-2 at a time) following oral care with supervision when seated upright . Auditory Comprehension Goals Therapy Activities Receptive identification Receptive Identification Pictures (FO2) Therapy Activity Comments Patient presented with receptive identification task i n which he was asked to identify common pictures given FO2. Patient completed ta sk with 30% accuracy independently this date. Increased tolerance and engagement in structured therapy task this date as compared with previous encounters. Assessment Increased engagement and participation in therapy tasks appreciated t his date. Will continue to target. Plan Dysphagia: -- ice chips -- trials of thin liquids -- swallow exercises as able Language: -- establish form of communication -- yes/no accuracy -- 1-step commands -- receptive ID Family training on 09/14/22. Lady Downey MS, CCC-DEPUTY HEAD 40 minutes made-up from missed time on 09/10/22. * Beatris Le, PT - 09/11/2022 1:30 PM CDT PHYSICAL THERAPY 09/11/22 1300 Type of Note Type of Note Daily Time Calculation Start Time 1300 Stop Time 1330 Time Calculation 30 $$ Gait / Mobility 1 unit $$ PT Therapeutic Activity 1 unit Subjective Subjective Patient presents seated in bedside chair, no objections to physical t herapy. Seated in bedside chair with CO present following session. Precautions Precautions Constant observation;Aspiration Comments aphasia, heart monitor phone; PEG Transfers Transfer: Assistive Device None Transfer: Sit to stand assist level Minimum assistance Transfer: Sit to stand type of assist For safety Transfer: Stand to sit assist level Minimum assistance Transfer: Stand to sit type of assist For safety Transfer: Stand pivot assist level Minimum assistance Transfer: Stand pivot type of assist For safety Transfer Comment Assist with finding chair and cues for pivoting fully prior to sitting Gait Gait Distance 500 feet (+ submaximal distances) GAIT: Assist Level Minimum assistance GAIT: Type of Assist For safety Gait: Assistive Device None;Hand Hold Assist (intermittent handhold assist) Gait: Patterns Decreased gait velocity;Trunk lean forward;Variable speed Gait: Deviation Left Decreased stride length;No heel strike/foot flat;Decreased dorsiflexion/toe drag in swingphase Gait: Deviation Right Decreased stride length;No heel strike/foot flat;Decreased dorsiflexion/toe drag in swingphase Gait Comment Patient tolerates gait around unit with intermittent cues for right sided attention Activity PT Therapeutic Activities Placed cones around dining room; patient ambulates eboni und dining room and is able to locate 6/6 x 2 rounds with seated rest break betw een rounds. Uses both right and left hands to stack cones then organizes cones b y color. Assessment Assessment Patient participates in activities well this session. Follows simple one step commands throughout session; occasional tactile cues for attention to r ight side. Plan Comments Monitor orthostasis. continue gait and other automatic activities, stai rs, standing endurance/balance, dynamic balance as able, outcomes pending monroe Le PT, DPT * Christiana Franco OT - 09/11/2022 1:30 PM CDT OCCUPATIONAL THERAPY NOTE Name: Derek Castro Jr. : 1945 Age: 77 y.o. Admission Date: 08/24/2022 LOS: 18 days Date of Service: 09/11/2022 09/11/22 1330 Time Calculation Start Time 1330 Stop Time 1400 Time Calculation 30 $$ Therapeutic Activity 2 unit - 30 min Subjective Subjective Pt upright in chair. requries increased encouragement to participate. appears sleepy this afternoon. Precautions Precautions Constant observation;Aspiration Comments aphasia, heart monitor phone; PEG Toileting Toileting-Adjusting clothing BEFORE using toiet, commode, bedpan or urinal Cheng t Yes Toileting-Adjust clothing AFTER using toilet, commode, bedpan or urinal Assist N o Toileting Comments Pt attempts to have bowel movement but unsuccessful Toileting Transfer Toilet Transfer Assist Contact guard assistance Transfers Transfer Comment Contact guard for ambulation around unit. Improved obstacle neg otiation this afternoon. Noted to attempt to enter room 19 which is in the same position as room 6 on the opposite end of the hallway. Activity Therapeutic Activities Attempted purposeful activity with pipe tree and sorting colored balls however pt uninterested. Does follow commands during tasks briefly . Assessment Assessment Pt progressed in alertness during session. Plan Plan Comments command following; ADLs; family training Type of Note Type of Note Daily Therapist: Christiana Franco OTR/[place] [id number] Date: 09/11/2022 * Lady Downey MS,[facility]-DEPUTY [facility] - 09/11/2022 10:30 AM CDT SPEECH-LANGUAGE PATHOLOGY 09/11/22 1030 Behavior Comments* Patient seated upright in wheelchair upon DEPUTY HEAD arrival. CO present upon DEPUTY HEAD arrival and exit. Dysphagia Goals Therapy Activity Comments DEPUTY HEAD attempted to initiate po trials this date. Patient declined trials via head turn and sealing lips. Writing Goals Therapy Activities Trace;Copy Therapy Activity Comments When handed a pen and piece of paper, Patient independ ently attempted to engage in written expression task. Patient's free text writin g illegible this date. DEPUTY HEAD attempted to engage Patient in trace/copy tasks with Patient name. Patient reluctant to DEPUTY HEAD use of [place] assistance as he was noted to pull hand away from DEPUTY HEAD. Patient then noted to appear frustrated with task and t hrew pen. Task discontinued. Verbal Expression Goals Therapy Activities Nonverbal communication Nonverbal Communication Communication board Therapy Activity Comments Attempted to establish form of communication via use o f yes/no communication board. DEPUTY HEAD asked personal yes/no questions and prompted u se of communication board. Patient did not engage in task. Patient, once again, appeared frustrated, attempting to slide paper and move self from table. Task di scontinued. Assessment Patient appeared frustrated this session, demonstrating several impul sive behaviors including attempting to stand up unassisted. Suspect this impacti ng performance this date. Plan Dysphagia: -- ice chips -- trials of thin liquids -- swallow exercises as able Language: -- establish form of communication -- yes/no accuracy -- 1-step commands -- receptive ID Family training on 09/14/22. Lady Downey MS, CCC-DEPUTY HEAD * Beatris Le, PT - 09/11/2022 10:00 AM CDT PHYSICAL THERAPY 09/11/22 0930 Type of Note Type of Note Daily Time Calculation Start Time 0930 Stop Time 1000 Time Calculation 30 $$ Gait / Mobility 1 unit $$ PT Therapeutic Activity 1 unit Subjective Subjective Patient presents seated in wheelchair in room, makes no objections to participating in physical therapy. Seated in tilt in space wheelchair with CO p resent following PT session. Precautions Precautions Constant observation;Aspiration Comments aphasia, PEG Transfers Transfer: Assistive Device None Transfer: Sit to stand assist level Minimum assistance Transfer: Sit to stand type of assist For safety Transfer: Stand to sit assist level Minimum assistance Transfer: Stand to sit type of assist For safety Transfer: Stand pivot assist level Minimum assistance Transfer: Stand pivot type of assist For safety Gait Gait Distance 300 feet GAIT: Assist Level Minimum assistance GAIT: Type of Assist For safety Gait: Assistive Device None Gait: Patterns Decreased gait velocity;Trunk lean forward;Variable speed Gait: Deviation Left Decreased stride length;Decreased knee extension in stance phase;No heel strike/foot flat Gait: Deviation Right Decreased stride length;Decreased knee extension in stance phase;No heel strike/foot flat Activity PT Therapeutic Activities Patient participates in playing anydooR game. Transi tions from sitting to/from standing several times throughout. Holds bucket of be an bags in L hand and reaches in to retreive duvall bag with RUE, tosses duvall bag with RUE. Ambulates closer to board to improve aim/accuracy. Initiates bending o tara to retrieve duvall bags from floor. Patient initiates return to sitting after bending over, possibly due to dizziness, patient unable to communicate. signal operator technical provides patient with cooker helper to retrieve duvall bags. Retrieves 3 duvall bags from floor using cooker helper and places them in bucket, with cues to open grasp to o pen cooker helper. Assessment Assessment Patient participates in session well. Demonstrates improved initiatio n of tossing and retrieving duvall bags appropriately. Plan Comments Monitor orthostasis. continue gait and other automatic activities, stai rs, standing endurance/balance, dynamic balance as able, outcomes pending compre treovr Le, PT, DPT * Lady Downey MS,CCC-DEPUTY HEAD - 09/11/2022 9:00 AM CDT SPEECH-LANGUAGE PATHOLOGY 09/11/22 0900 Behavior Comments* Patient seated upright in wheelchair upon DEPUTY HEAD arrival. CO present at S LP arrival and exit. Dysphagia Goals Therapy Activities PO trials PO Trials Ice chips;Thin liquids Therapy Activity Comments Per CO, oral care completed in OT session prior to DEPUTY HEAD arrival. Patient presented with cup of ice/thin liquids this date. Patient inde pendently initiated trials of ice chips and thin liquids via cup sip/straw. Inte rmittently, Patient noted to bring cup/spoon below lower lip, however, no initia tion of trial (suspect apraxia). Patient consumed ice chips free from overt s/s of distress. Consistent throat clear/cough response following trials of thin liq uids via cup and straw. Recommend Patient remain NPO at this time, In light of q uality of life, hydration, and to reduce oropharyngeal atrophy, patient may have ice chips (1-2 at a time) following oral care with supervision when seated upri ght. Verbal Expression Goals Therapy Activities Nonverbal communication Nonverbal Communication Gestures Therapy Activity Comments Patient demonstrated increased attempt at vocalization s this date. Vocalizations noted to be unintelligible and mumbled throughout. Patient was noted to wave when DEPUTY HEAD exited room. Assessment Recommend Patient remain NPO at this time. Tentative plan for repeat swallowing instrumentation on 09/13/22. Plan Dysphagia: -- ice chips -- trials of thin liquids -- swallow exercises as able Language: -- establish form of communication -- yes/no accuracy -- 1-step commands -- receptive ID Family training on 09/14/22. Lady Downey MS, CCC-DEPUTY HEAD * Christiana Franco, OT - 09/11/2022 7:30 AM CDT OCCUPATIONAL THERAPY NOTE Name: Derek Castro Jr. : 1945 Age: 77 y.o. Admission Date: 08/24/2022 LOS: 18 days Date of Service: 09/11/2022 09/11/22 0730 Time Calculation Start Time 0730 Stop Time 0830 Time Calculation 60 $$ Phys ADL Skills 4 units Subjective Subjective Pt supine upon arrival. Holds hands out for OT to assist supine to si t. Precautions Precautions Constant observation;Aspiration Grooming Grooming - Wash Face Assist No Grooming - Clare Teeth Assist No Grooming Assist Minimal Assist Grooming Position Standing for ___ % of task Grooming Comments minimal cueing required for grooming tasks. Upper Body Dressing UE Dressing Assist Stand By Assist Upper Dressing Position Sitting in chair Upper Dressing Comments set up assist Lower Body Dressing LE Dressing Assist Moderate Assist Lower Dressing Position Sitting in chair Lower Dressing Comments assist with lake managment. Pt threads BLE through pant s and assists pulling up over hips. Toileting Toileting-Adjusting clothing BEFORE using toiet, commode, bedpan or urinal Cheng t Yes Toileting-Adjust clothing AFTER using toilet, commode, bedpan or urinal Assist Y es Toileting Comments attempted to allow pt to have a BM on toilet. Assist with ayala ts management down. Pt retrieves toilet paper from dispenser without wiping. Amb ulates away from toilet without pulling pants up. Toileting Transfer Toilet Transfer Assist Minimum assistance;For safety;Impulsive Transfers Transfer: Assistive Device Hand Hold Assist Transfer: Sit to stand assist level Minimum assistance Transfer: Stand to sit assist level Minimum assistance Transfer: Stand pivot assist level Minimum assistance Transfer Comment Pt ambulates around unit and gym with minimal sometimes moderat e assist for obstacle navigation especially on the right. Activity Therapeutic Activities Pt retrieves weighted medicine balls around gym and deliv ers to technology architect. Requires minimal cues for task initiation and sequencing. Imp roved attempts at verbalizations today. Assessment Assessment Pt with improved command following today. Plan Plan Comments command following; ADLs; family training Type of Note Type of Note Daily Therapist: Christiana Franco OTR/L [id number] Date: 09/11/2022 * Rosa Wheeler MD - 09/11/2022 6:25 AM CDT Physical Medicine & Rehabilitation Progress Note Today's Date: 09/11/2022 Admission Date: 08/24/2022 LOS: 18 days Insurance: [employer] Principal Problem: Acute ischemic left MCA stroke (HCC) Active Problems: CAD (coronary artery disease) Stage 3b chronic kidney disease (HCC) Hyperlipidemia Primary hypertension Hypothyroidism Seizure disorder (HCC) History of multiple strokes Global aphasia Acute right hemiparesis (HCC) Impaired mobility and activities of daily living Risk for falls Assessment/Plan: Derek Castro Jr. is a 77 y.o. male admitted to [facility] on 08/24/2022 with the following issues: stroke Rehabilitation Plan Tentative discharge date: Rehabilitation: Patient will continue with comprehensive therapies including phy sical therapy, occupational therapy, speech & language pathology, specialized rehab nursing, neuropsychology and physiatry oversight. Goals: at ambulation level, household mobility, Stand by assistance, With caregi tara assistance, Progressing Recommended therapy after discharge: Home with Assistance, and, Home Health Sett ing PT recommended equipment: TBD OT recommended equipment: Too early to determine Daily Functional Update: Transfers Transfer: Assistive Device: Hand Hold Assist (09/10/2022 3:01 PM) Transfer: Sit to stand assist level: Minimum assistance; With two person ( 023 3:01 PM) Transfer: Stand pivot assist level: Minimum assistance; With two person (09/11/19 23 3:01 PM) No data recorded Gait/ Mobility Gait: Assistive Device: Hand Hold Assist (09/10/2022 8:30 AM) GAIT: Assist Level: Moderate assistance (09/10/2022 8:30 AM) Gait Distance: 30 feet (09/10/2022 8:30 AM) No data recorded No data recorded Toileting Toileting Assist: Total Assist (09/06/2022 1:00 PM) No data recorded Toilet Transfer Assist: WIth two person (09/10/2022 8:30 AM) Dressing LE Dressing Assist: Moderate Assist (09/05/2022 8:00 AM) UE Dressing Assist: Minimal Assist (09/05/2022 8:00 AM) Current Medical Problems/Risks of Medical Complications/Management Acute Left M2 occlusions/p IRw/ aTICI3 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 Hx of multiple ischemic strokes(2020, R MCA 05/2022, L NILA 07/2022) Severe dysphagia and global aphasia, impaired cognition, impaired mobility with right hemiplegia, impaired ADLs >Will continue indefinitely on Eliquis 5mg BID and ASA 81mg daily per Neurology recommendations > 30 day cardiac event monitoror ILR at discharge and will maintain > PT/OT/DEPUTY HEAD to eval and treat > Sertraline as below, unable to utilize modafinil or amantadine secondary to PEG > Baclofen 5 mg qhs (start 09/05) H/o Seizures > Continue CHILD DEVELOPMENT ASSOCIATE TEACHER Keppra 500 mg BID > Low threshold for neurology consult versus increasing Keppra to 1000 mg twice daily secondary to concerns for breakthrough seizure on 08/31/2022 lasting less than 10 seconds without tonic-clonic movement Oropharyngeal Dysphagia Concern for aspiration - Repeat video swallow 08/20 did not go well thus PEG placed on 08/20 - Emesis with TF 09/10 - Chest xray 09/10: similar basilar predominant lung opacities > PEG care, abdominal binder > On bolus feeds and water thr peg, NPO, ice chip protocol > monitor labs-CMP, mag/phos while on TF > consulted siebel crm developer > DEPUTY HEAD to work with patient on dysphagia. Agitation, restlessness Disturbed sleep wake cycle, insomnia Agitation continues to improve >Melatonin 5mg QHS, increase trazodone to 100 mg QHS, and seroquel 12.5mg at bedtime. PRN seroquel during day ONLY for agitation/aggression that is not redirectable. > Sleep hygiene > Redirection and reorientation > protect tubes and lines > Continue am SSRI (zoloft 50 mg) started 08/30 to improve daytime alertness/mood Neurogenic bladder/urinary retention : Lake replaced 08/22 and fter failed voiding trial > Discontinue doxazosin d/t orthostasis > Will keep Lake in until agitation, aphasia and understanding improve some, as he was not tolerating bladder scans/timed voids/straight caths during last trial. Has a history of urinary retention does have a Urologist at home. If second voiding trial is not successful we will discharge home with Lake with follow-up with urology. Neurogenic bowel: loose stools > Hold senna docusate > May need a set bowel time if incontinence continues. > Will discontinue magox for now, replace magnesium via IV in future > Fiber supplement HTN/ HLD CAD s/p CABG x5(2009) Orthostatic hypotension Hypomagnesemia, resolved - Echo 08/10 with EF 60%, no WMA or ventricle dysfunction - EKG 09/10: NSR, QTc 420 > SBP goal:less than 160 >Cont statin and ASA > Continue amlodipine > Consult internal medicine, appreciate recommendations > No change to BP regimen > Repeat orthostatics 09/07 positive > Discontinue carvedilol 09/10 CKD stage 3 - BaselineCr~1.8-2 > Continue to monitor, avoid nephrotoxic meds Lethargy - Repeat labs 09/10 WNL - Lactic acid normal - Secondary to mood versus sleep > Continue to monitor Oral thrush - initiated course of nystatin 08/28; last day 09/11-then recheck > oral cares BID Hypothyroidism >Cont CHILD DEVELOPMENT ASSOCIATE TEACHER levothyroxine Rash - Dry, red macular rash noted to entire back >Cont Emollient cream Pulmonary nodules - Incidental finding with multiple subcentimeter pulmonary nodules, indeterminan t on initial examination. No dominant pulmonary mass > Follow-up CT chest in 3 months recommended to evaluate for stability Pain Management: pain seems well controlled, heat / ice PRN, topical medication and Tylenol PRN Skin: Encourage the patient to continue to inspect their skin and perform pressu re relief. BMI: Body mass index is 31.11 kg/m. Mental Health, high risk of depression with stroke and aphasia: consulted neuropsychology to provide support / counseling and monitor for depres miladys Sertraline as above DVT Prophylaxis: apixaban GI ppx: pepcid 20mg daily while on tube feeds. Subjective No acute events overnight. Patient seen in therapy gym playing anydooR. Patien t is non-verbal, but appears pleasant and happy. Therapy notes reviewed. Lake c atheter with 1500 mL output over last 24 hours. Incontinent of bowel with last B M 09/10. Objective Vital Signs: Last Filed Vital Signs: 24 Gladis r Range BP: 150/71 (09/11 299) Temp: 36.5 C (97.7 F) (09/10 1934) Pulse: 58 (09/10 1934) Respirations: 18 PER MINUTE (09/10 1934) SpO2: 96 % (09/10 1934) O2 Device: None (Room air) (09/11 299) BP: (87-153)/(42-71) Temp: [36.3 C (97.3 F)-36.7 C (98 F)] Pulse: [58-92] Respirations: [18 PER MINUTE-20 PER MINUTE] SpO2: [92 %-96 %] O2 Device: None (Room air) Vitals: 08/27/22 0421 09/03/22 0528 09/10/22 0654 Weight: 96.7 kg (213 lb 3 oz) 90 kg (198 lb 6.6 oz) 91.1 kg (200 lb 13.4 oz) Intake/Output Summary: (Last 24 hours) Intake/Output Summary (Last 24 hours) at 09/11/2022 0625 Last data filed at 09/11/2022 0300 Gross per 24 hour Intake 830 ml Output 1850 ml Net -1020 ml Last Bowel Movement Date: 09/10/22 Labs--reviewed Results for orders placed or performed during the hospital encounter of 08/24/22 (from the past 24 hour(s)) CBC AND DIFF Collection Time: 09/10/22 3:10 PM # # Low-High White Blood Cells 9.4 4.5 - 11.0 K/UL RBC 4.50 4.4 - 5.5 M/UL Hemoglobin 13.7 13.5 - 16.5 GM/DL Hematocrit 40.7 40 - 50 % MCV 90.5 80 - 100 FL MCH 30.4 26 - 34 PG MCHC 33.6 32.0 - 36.0 G/DL RDW 14.6 11 - 15 % Platelet Count 193 150 - 400 K/UL MPV 9.7 7 - 11 FL Neutrophils 73 41 - 77 % Lymphocytes 9 (L) 24 - 44 % Monocytes 13 (H) 4 - 12 % Eosinophils 4 0 - 5 % Basophils 1 0 - 2 % Absolute Neutrophil Count 6.98 1.8 - 7.0 K/UL Absolute Lymph Count 0.81 (L) 1.0 - 4.8 K/UL Absolute Monocyte Count 1.21 (H) 0 - 0.80 K/UL Absolute Eosinophil Count 0.33 0 - 0.45 K/UL Absolute Basophil Count 0.04 0 - 0.20 K/UL BASIC METABOLIC PANEL Collection Time: 09/10/22 3:10 PM # # Low-High Sodium 140 137 - 147 MMOL/L Potassium 3.8 3.5 - 5.1 MMOL/L Chloride 107 98 - 110 MMOL/L CO2 25 21 - 30 MMOL/L Anion Gap 8 3 - 12 Glucose 132 (H) 70 - 100 MG/DL Blood Urea Nitrogen 31 (H) 7 - 25 MG/DL Creatinine 1.68 (H) 0.4 - 1.24 MG/DL Calcium 8.9 8.5 - 10.6 MG/DL eGFR 42 (L) >60 mL/min LACTIC ACID(LACTATE) Collection Time: 09/10/22 3:10 PM # # Low-High Lactic Acid 0.9 0.5 - 2.0 MMOL/L Medications: Scheduled Meds:amLODIPine (NORVASC) tablet 5 mg, 5 mg, PEG Tube, QDAY apixaban (ELIQUIS) tablet 5 mg, 5 mg, SEE ADMIN INSTRUCTIONS, BID aspirin chewable tablet 81 mg, 81 mg, PEG Tube, QDAY atorvastatin (LIPITOR) tablet 80 mg, 80 mg, PEG Tube, QDAY baclofen (LIORESAL) tablet 5 mg, 5 mg, Oral, QHS Diet Enteral Feeding Bolus, , SEE ADMIN INSTRUCTIONS, 5XDAY (6,12,15,18,22) And Water Bolus, 200 mL, PEG Tube, 5XDAY (6,12,15,18,22) [Held by Provider] docusate sodium (COLACE) oral solution 100 mg, 100 mg, PEG Tu be, BID famotidine (PEPCID) tablet 20 mg, 20 mg, PEG Tube, QDAY levETIRAcetam (KEPPRA) oral solution 500 mg, 500 mg, PEG Tube, BID levothyroxine (SYNTHROID) tablet 125 mcg, 125 mcg, PEG Tube, QDAY(07) melatonin tablet 5 mg, 5 mg, PEG Tube, QHS Nutrisource Fiber Supplement Packets, , SEE ADMIN INSTRUCTIONS, QDAY(18) nystatin (MYCOSTATIN) oral suspension 100,000 Units, 100,000 Units, Oral, QID [Held by Provider] senna (SENOKOT) oral syrup 17.6 mg, 10 mL, PEG Tube, QHS sertraline (ZOLOFT) tablet 50 mg, 50 mg, Feeding Tube, QDAY simethicone (MYLICON) chew tablet 80 mg, 80 mg, Per G Tube, TID traZODone (DESYREL) tablet 100 mg, 100 mg, PEG Tube, QHS Continuous Infusions: PRN and Respiratory Meds:acetaminophen Q4H PRN, bisacodyL QDAY PRN, emollient MO N, pancrelipase 20,880 Units/sodium bicarbonate 650 mg (KU CLOG DESTROYER) PRN ( Orchard Worker from Rx), vitamin A & D PRN Physical Exam General: Alert, NAD HEENT: NCAT, EOMI, good eye contact Heart: RRR, no m/r/g Lungs: Clear to auscultation bilaterally, NWAB on RA Abdomen: Soft. Abdominal binder in place covering peg, PEG site appears c/d/i wi th trace erythema at 12 o'clock : Lake catheter in place, draining light yellow urine Extremities: No edema, Neuro: Alert, non verbal, understands basic simple one step commands intermitten tly. Observed playing anydooR with good hand-eye coordination, heel step maame l, rightward lean, left hemineglect - L elbow flexion MAS 1+/5 - L arm adduction MAS 1/5 - L wrist extension MAS 0/5 - L knee flexion/extension MAS 0/5 Psych: pleasant MSK: no atrophy Labs & Therapy Notes Reviewed Rosa Wheeler MD Associated attestation - Esme Harkins MD - 09/11/2022 11:18 AM CDT ATTESTATION I personally performed the tineo portions of the E/M visit, discussed case with re sident and concur with resident documentation of history, physical exam, assessm ent, and treatment plan unless otherwise noted. Staff name: Esme Harkins MD Date of Service: 09/11/2022 * Doe Fox RN - 09/11/2022 5:20 AM CDT Acute Inpatient Rehabilitation Behavior Summary of Shift Name: Derek Castro Jr. : 1945 Age: 77 y.o. Admission Date: 08/24/2022 LOS: 18 days Date of Service: 09/11/2022 Reason for increased observation? Impulsivity and unaware of safety One-on-one safety watch: yes Q15-30 minute safety watch:no Suicide precaution: no Telemonitoring: no Behavior outbursts during this shift? none Description and time(s) of event: n/a Agitation during this shift? yes Description and time(s) of event: try to reach IV line, poles, kick and squeeze hands of the caregiver After mid night Active suicide ideation during this shift?no Description and time(s) of event: n/a Poor safety awareness or impulsivity during this shift? yes Description and time(s) of event: most of the night Noteworthy visitor interactions during this shift? n/a Sleep/rest patterns observed during this shift? Pt noted with put sleep staring mid night Therapeutic interventions: reorientation Additional Comments: * Hannah Coker RN - 09/10/2022 7:40 PM CDT Acute Inpatient Rehabilitation Behavior Summary of Shift Name: Derek Castro Jr. : 1945 Age: 77 y.o. Admission Date: 08/24/2022 LOS: 17 days Date of Service: 09/10/2022 Reason for increased observation?Impulsivity and unaware of safety One-on-one safety watch: Yes Q15-30 minute safety watch: Yes Suicide precaution: No Telemonitoring: No Behavior outbursts during this shift? No Description and time(s) of event: N/A Agitation during this shift? No Description and time(s) of event: N/A Active suicide ideation during this shift? No Description and time(s) of event: N/A Poor safety awareness or impulsivity during this shift? No Description and time(s) of event: N/A Noteworthy visitor interactions during this shift? NO Sleep/rest patterns observed during this shift? N/A Therapeutic interventions: Reorientation Additional Comments: N/A * Katherine Mir, OT - 09/10/2022 3:00 PM CDT OCCUPATIONAL THERAPY 09/10/22 1501 Time Calculation Start Time 1500 Stop Time 1530 Time Calculation 30 $$ Therapeutic Activity 2 unit - 30 min Subjective Subjective Patient supine in bed upon OT arrival. Towards end of session, patien t initated getting up from table to return to room. Bed Mobility Bed Mobility: Supine to sit assist level Maximum assistance Bed Mobility Comments D/t initiation, patient required increased assist for enco uragement of out of bed activity. Transfers Transfer: Assistive Device Hand Hold Assist Transfer: Sit to stand assist level Minimum assistance;With two person Transfer: Sit to stand type of assist Facilitation of weight shift;Facilitation of hip extension;For safety;Increased time to complete Transfer: Stand to sit assist level Minimum assistance Transfer: Stand to sit type of assist Facilitation of weight shift Transfer: Stand pivot assist level Minimum assistance;With two person Transfer: Stand pivot type of assist Facilitation of weight shift;Facilitation o f trunk (Patient with difficulty spacing on R side.) Transfer Comment Max Cueing to sit in chair. Activity Therapeutic Activities Patient ambulates to therapy room with increased time and 2 person assist for safety. Completes matching game with max cueing for followi ng commands and noted increased difficulty for scanning to L for finding items. Patient with difficulty placing items in correct piles (L inattention? vs cognit ion with command/direction understanding). Performs with therapist placing card in hand to improve patient engagement in activity. Performs in attempt to match money on table - unable to accurately place into correct pile despite max verbal and physical cues. Patient grasps items and places in miscellaneous pile when p erformed. Initates getting out of chair to return to room. Noted increased chopp y steps when returned to room and requires increased assist (Moderate assist) fo r returning safely to bed. Assessment Assessment Patient demonstrates requiring increased assist on this date compared to previous sessions. Plan Plan Comments Obtain accurate info regarding prior level of function and home en vironment from family; address shower/shower transfer and toileting/toilet trans shawn; functional command following; automatic tasks; ADL routine Type of Note Type of Note Daily Katherine Mir OTR/L * Rosa Wheeler MD - 09/10/2022 1:58 PM CDT Vitals: BP: 142/69 mmHg HR: 80 Temp: 98.2 F SpO2: 95% GEN: Alert, NAD CV: Skin well perfused Pulm: NWAB on RA Abd: Soft, NT, ND, PEG in place with mild border erythema at 12 o'clock : Lake in place draining light yellow urine Neuro: - PERRLA - Vesibular occular reflex horizontally intact - Moves upper extremities spontaneously - Hood's negative bilaterally - No ankle clonus bilaterally * Alisa Granados, PhD - 09/10/2022 9:46 AM CDT Neurorehabilitation Psychology [id number] Pt was seen for auditory comprehension screening and follow-up with no family or significant others present. Pt was alert and seated in wheelchair throughout the session. Pt was momentarily vocal but speech was slurred. The provider primarily communicated with pt jamal gh written multiple-choice and yes/no responses. Eye contact was variable and no n-verbal behaviors were variable. Pt appeared to be attempting to communicate wi th provider evident by him grabbing this insurance writer's clipboard and holding onto it at times during this session. Pt's breathing appeared heavy. Pt's mood appeared sad with congruent affect and appeared teary-eyed at moments during this encount er. When provided written multiple-choice items pertaining to pt's name and mood, pt was inconsistent with tapping yes/no for his correct name and pt indicated mood by tapping on "tired." Pt did not appear to understand the utility of one-step commands (e.g. thumb up/thumb down or head nod/head shake). Pt's responses were inconsistent with repetition of items thus, the session was discontinued and the [place] Diagnostic Aphasia Examination (BDAE) Auditory Comprehension screen was not completed due to comprehension difficulties. Per CO, pt vomited this morning and has been less verbal when compared to the weekend and was noted that pt has been unable to follow simple commands. The purpose and method of the neurorehabilitation psychology service, as well as the limits of confidentiality, were described to the pt. Pt was informed that t his insurance writer is under supervision by Dr. Aimee Tovar and Dr. Alisa Granados. Th e intent and utility of testing was relayed, however, pt did not communicate an understanding regarding the need for his participation and use of services. Will revisit this information with pt in multiple visits due to pt's aphasia. Diagnosis: R47.01 Aphasia; I63.512 Acute ischemic stroke; r/o adjustment disorde r with mixed depressed and anxious mood; r/o cognitive impairment Recommendations: 1. Due to pt's aphasia, provider was unable to administer auditory comprehension screening, anxiety, depression, or cognitive screens. Will return to administer. 2. Pt may benefit from psychoeducation about relaxation strategies. Due to pt's aphasia, the provider will attempt to return to discuss the information with pt in multiple visits if time permits prior to pt's discharge. 3. Pt appeared to experience difficulties in indicating his needs and understand ing simple and/or complex information. It is recommended to use simple, succinct words/phrases and asking pt simple yes/no questions. Vicente Duarte M.A. Automatic Brine Mixer Operator On [employer] ATTESTATION: I discussed this session and pt's care with the music industry intern and agree with the note and recs as amended (in blue) above. We will continue to follow pr n until [facility] d/c. Alisa Granados, Ph.D. * Nicko Lechuga MD - 09/10/2022 9:29 AM CDT General Medicine Consult Progress Note Name: Derek Castro Jr. : 1945 Age: 77 y.o. Admission Date: 08/24/2022 LOS: 17 days Date of Service: 09/10/2022 Reason for Consult: Hypotension with background Hypertension Patient with L MCA stroke, CAD s/p CABG. Had 9 beats of VTACh on event monitor. Has been hypertensive for several days but recently developed hypotension. No s/ s of infection. Please assist with management of anti-hypertensives. Consult type: Co-Management w/Signed Orders A 77-year-old male with history of hyperlipidemia, hypertension, coronary diseas e status post CABG in 2009, hypothyroidism, right lower extremity DVT, CKD stage III seizure disorder and multiple strokes who had recent acute ischemic left MCA stroke admitted to rehab on 08/24/2022 following transfer from acute care where he was admitted between 08/09/2022 until 08/24/2022. Internal medicine now consul earline for hypertension --Hypotension: has resolved but with orthostatic hypotension on a background hyp ertension while on antihypetensives -Hypotension this morning from sitting to standing orthostatic blood pressure me asurements, uncertain of symptoms with this blood pressure measurement -CHILD DEVELOPMENT ASSOCIATE TEACHER doxazosin, amlodipine and Coreg -Doxazosin discontinued 09/07 -Coreg discontinued 09/10 --Short non sustained V.tach - 9 beats -- Recent acute left M2 2 occlusion[ 08/09/2022] status post IR thrombectomy with acute left basal ganglia infarct and chronic vertebral artery occlusion - On Domonique jeff, Atorvastatin and ASA -- Aphasia- both receptive and expressive -- Oropharyngeal dysphagia - on Tube feeding with PEG tube. Speech therapy on petrona jackson -- Seizure disorder - on Keppra 500 MG TID -- Urinary retention with neurogenic bladder -- Constipation/incontinence with neurogenic bowel -- Hypothyroidism -- Hyperlipidemia -- CAD S/P CABG X 5 [ 2009] -- CKD stage III - baseline creatinine 1.6 - 1.8 - currently at baseline -- Pulmonary nodules --History of RLE DVT on Anticoagulation with Apixaban --Insomnia with agitation now improving - Zoloft, Trazodone and Quetiapine --Oral candidiasis - on Nystatin (end 09/11) Recommendations: - Continue amlodipine and will discontinue Coreg since he does not have a dual i ndication for this - Continue to hold doxazosin, would not resume this on discharge - Nystatin set to finish after tomorrow's AM dose - Keep K > 4 and Mg > 2 Nicko Lechuga MD Internal Medicine Vo[employer], [phone] Please direct initial questions to the primary service. General Medicine consults can be contacted via Voalte using [facility] Consults 1 or 2 First Call 24 hours a day Interim events: Blood pressure has remained stable overall but orthostatic hypot ension on bedside measurement on 09/05/22 Subjective (today): Patient is more tired today per nursing staff. Discussed wi th Dr. Wheeler that patient does appear to be more sullen today. He does wake up t o verbal stimuli and follows some directions but is inconsistent. Review of Systems: Unable to obtain. Vital Signs: Last Filed in 24 hours Vital Signs: 24 hour Range BP: 87/42 (09/10 842) Temp: 36.3 C (97.3 F) (09/10 836) Pulse: 82 (09/10 836) Respirations: 18 PER MINUTE (09/10 836) SpO2: 96 % (09/10 836) O2 Device: None (Room air) (09/10 836) BP: (87-141)/(42-82) Temp: [36.3 C (97.3 F)-37.1 C (98.8 F)] Pulse: [65-92] Respirations: [18 PER MINUTE] SpO2: [93 %-98 %] O2 Device: None (Room air) Physical Exam: General: alert, in no acute distress CV: HR RRR, no murmur/rubs/gallops Pulm: Lungs CTA, no rales/wheezes/rhonci Abdomen: Soft, non-tender, nondistended, normoactive bowel sounds Neuro: Following some commands and not others, wakes up to verbal stimuli withou t issue and is looking around the room without distress Extremities: No peripheral edema noted Psych: Appropriate mood and affect Lab/Radiology/Other Diagnostic Tests: 24-hour labs: Results for orders placed or performed during the hospital encounter of 08/24/22 (from the past 24 hour(s)) CBC CELLULAR THERAPEUTICS Collection Time: 09/10/22 7:20 AM Result Value Ref Range White Blood Cells 9.6 4.5 - 11.0 K/UL RBC 4.62 4.4 - 5.5 M/UL Hemoglobin 14.0 13.5 - 16.5 GM/DL Hematocrit 42.1 40 - 50 % MCV 91.1 80 - 100 FL MCH 30.3 26 - 34 PG MCHC 33.2 32.0 - 36.0 G/DL RDW 14.2 11 - 15 % Platelet Count 205 150 - 400 K/UL MPV 9.6 7 - 11 FL COMPREHENSIVE METABOLIC PANEL Collection Time: 09/10/22 7:20 AM Result Value Ref Range Sodium 140 137 - 147 MMOL/L Potassium 4.0 3.5 - 5.1 MMOL/L Chloride 105 98 - 110 MMOL/L Glucose 143 (H) 70 - 100 MG/DL Blood Urea Nitrogen 28 (H) 7 - 25 MG/DL Creatinine 1.67 (H) 0.4 - 1.24 MG/DL Calcium 9.4 8.5 - 10.6 MG/DL Total Protein 5.8 (L) 6.0 - 8.0 G/DL Total Bilirubin 0.4 0.3 - 1.2 MG/DL Albumin 3.1 (L) 3.5 - 5.0 G/DL Alk Phosphatase 84 25 - 110 U/L AST (SGOT) 17 7 - 40 U/L CO2 24 21 - 30 MMOL/L ALT (SGPT) 17 7 - 56 U/L Anion Gap 11 3 - 12 eGFR 42 (L) >60 mL/min MAGNESIUM Collection Time: 09/10/22 7:20 AM Result Value Ref Range Magnesium 1.8 1.6 - 2.6 mg/dL PHOSPHORUS Collection Time: 09/10/22 7:20 AM Result Value Ref Range Phosphorus 3.2 2.0 - 4.5 MG/DL No pertinent radiology. Nicko Lechuga MD * Louise Mcdonald, PT - 09/10/2022 8:30 AM CDT PHYSICAL THERAPY 09/10/22 0830 Type of Note Type of Note Daily Time Calculation Start Time 0830 Stop Time 0930 Time Calculation 60 $$ Professional Contact 1 unit (Interdisciplinary discussion) $$ Gait / Mobility 2 units $$ PT Therapeutic Activity 2 units Subjective Subjective Upon PTs arrival, patient's nurse informed this therapist that he had just vomitted. CO obtaining seated vitals. BP seated 99/63 Bed Mobility Bed Mobility Comments Patient up in chair upon PT arrival. Transfers Transfer: Assistive Device Hand Hold Assist Transfer: Sit to stand assist level Minimum assistance Transfer: Sit to stand type of assist Facilitation of weight shift;For safety Transfer: Stand to sit assist level Minimum assistance Transfer: Stand to sit type of assist Facilitation of weight shift Transfer: Stand pivot assist level Moderate assistance Transfer: Stand pivot type of assist Facilitation of weight shift;Facilitation o f trunk Transfer Comment Max cueing Toileting Transfer Toilet Transfer Technique Posterior transfer onto receptacle Toilet Transfer Assist WIth two person Toilet Transfer Equipment Grab bar - right Toilet Transfer Comments Max cueing. Patient with large bowel accident in brief and then upon sitting on toilet had another large, pasty bowel movement. Gait Gait Distance 30 feet GAIT: Assist Level Moderate assistance GAIT: Type of Assist For safety Gait: Assistive Device Hand Hold Assist Gait: Patterns Decreased gait velocity;Trunk lean forward Activity PT Therapeutic Activities Showered patient post large BM- patient appeared to be feeling unwelll. Further, unable to communicate needs and minimal to no command follow. This is a drastic difference than previous session noted on Saturday. Assessment Assessment Patient left up in chair, CO in room. All concerns relayed on to [facility]. Plan Comments Monitor orthostasis. continue gait and other automatic activities, stai rs, standing endurance/balance, dynamic balance as able, outcomes pending monroe Mcdonald PT, DPT * Lady Downey MS,[facility]Y [facility] - 09/10/2022 8:00 AM CDT SPEECH-LANGUAGE PATHOLOGY 09/10/22 0800 Behavior Comments* Patient lying in bed upon DEPUTY HEAD arrival. CO present at DEPUTY HEAD arrival/exit. Auditory Comprehension Goals Therapy Activities Command following Therapy Activity Comments Assessed command execution during functional activity this date including transfer from bed to wheelchair and changing of brief/tommy pad. Throughout session, Patient was asked to roll from side to side, sit up at EOB, etc. Patient was able to complete all commands this date, however, required multiple repetitions and tactile cues throughout. At DEPUTY HEAD exit, Patient was seat ed upright in wheelchair. RN present to administer medications throughout PEG tu be. Assessment Session limited by RN and bathroom needs. Will continue to address. Plan Dysphagia: -- ice chips -- trials of thin liquids -- swallow exercises as able Language: -- establish form of communication -- yes/no accuracy -- 1-step commands -- receptive ID Missed Treatment Missed Minutes 40 Reasons for Missed Minutes Fatigue;Lethargic Attempted to see Patient x3 this date (10:30, 14:00 and 14:45). Patient lethargi c upon DEPUTY HEAD arrival x2. Despite attempts, Patient unable to remain alert for mean ingful participation in therapy session. On DEPUTY HEAD final attempt to see Patient thi s date, Patient undergoing chest x-ray. Lady Downey MS, CCC-DEPUTY HEAD * Rosa Wheeler MD - 09/10/2022 6:26 AM CDT Physical Medicine & Rehabilitation Progress Note Today's Date: 09/10/2022 Admission Date: 08/24/2022 LOS: 17 days Insurance: [employer] Principal Problem: Acute ischemic left MCA stroke (HCC) Active Problems: CAD (coronary artery disease) Stage 3b chronic kidney disease (HCC) Hyperlipidemia Primary hypertension Hypothyroidism Seizure disorder (HCC) History of multiple strokes Global aphasia Acute right hemiparesis (HCC) Impaired mobility and activities of daily living Risk for falls Assessment/Plan: Derek Castro Jr. is a 77 y.o. male admitted to [facility] on 08/24/2022 with the following issues: stroke Rehabilitation Plan Tentative discharge date: Rehabilitation: Patient will continue with comprehensive therapies including phy sical therapy, occupational therapy, speech & language pathology, specialized rehab nursing, neuropsychology and physiatry oversight. Goals: at ambulation level, household mobility, Stand by assistance, With caregi tara assistance, Progressing Recommended therapy after discharge: Home with Assistance, and, Home Health Sett ing PT recommended equipment: TBD OT recommended equipment: Too early to determine Daily Functional Update: Transfers Transfer: Assistive Device: Hand Hold Assist (09/07/2022 2:30 PM) Transfer: Sit to stand assist level: Contact guard assistance (09/07/2022 2:30 P M) Transfer: Stand pivot assist level: Contact guard assistance (09/07/2022 2:30 PM ) No data recorded Gait/ Mobility Gait: Assistive Device: Hand Hold Assist (09/07/2022 2:30 PM) GAIT: Assist Level: Contact guard assistance (x2) (09/07/2022 2:30 PM) Gait Distance: 450 feet (09/07/2022 2:30 PM) No data recorded No data recorded Toileting Toileting Assist: Total Assist (09/06/2022 1:00 PM) No data recorded Toilet Transfer Assist: WIth two person; Minimum assistance (09/07/2022 9:30 AM) Dressing LE Dressing Assist: Moderate Assist (09/05/2022 8:00 AM) UE Dressing Assist: Minimal Assist (09/05/2022 8:00 AM) Current Medical Problems/Risks of Medical Complications/Management Acute Left M2 occlusions/p IRw/ aTICI3 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 Hx of multiple ischemic strokes(2019, R MCA 05/2022, L NILA 07/2022) Severe dysphagia and global aphasia, impaired cognition, impaired mobility with right hemiplegia, impaired ADLs >Will continue indefinitely on Eliquis 5mg BID and ASA 81mg daily per Neurology recommendations > 30 day cardiac event monitoror ILR at discharge and will maintain > PT/OT/DEPUTY HEAD to eval and treat > Sertraline as below, unable to utilize modafinil or amantadine secondary to PEG > Baclofen 5 mg qhs (start 09/05) H/o Seizures > Continue CHILD DEVELOPMENT ASSOCIATE TEACHER Keppra 500 mg BID > Low threshold for neurology consult versus increasing Keppra to 1000 mg twice daily secondary to concerns for breakthrough seizure on 08/31/2022 lasting less than 10 seconds without tonic-clonic movement Oropharyngeal Dysphagia - Repeat video swallow 08/20 did not go well thus PEG placed on 08/20 > PEG care, abdominal binder > On bolus feeds and water thr peg, NPO, ice chip protocol > monitor labs-CMP, mag/phos while on TF > consulted siebel crm developer > DEPUTY HEAD to work with patient on dysphagia. Agitation, restlessness Disturbed sleep wake cycle, insomnia Agitation continues to improve >Melatonin 5mg QHS, increase trazodone to 100 mg QHS, and seroquel 12.5mg at bedtime. PRN seroquel during day ONLY for agitation/aggression that is not redirectable. > Sleep hygiene > Redirection and reorientation > protect tubes and lines > Continue am SSRI (zoloft 50 mg) started 08/30 to improve daytime alertness/mood Neurogenic bladder/urinary retention : Lake replaced 08/22 and fter failed voiding trial > Hold doxazosin d/t orthostasis > Will keep Lake in until agitation, aphasia and understanding improve some, as he was not tolerating bladder scans/timed voids/straight caths during last trial. Has a history of urinary retention does have a Urologist at home. If second voiding trial is not successful we will discharge home with Lake with follow-up with urology. Neurogenic bowel: constipation, incontinence > Continue senna. Bm + now > May need a set bowel time if incontinence continues. > Will discontinue magox for now, replace magnesium via IV in future > Will consider oral fiber supplement HTN/ HLD CAD s/p CABG x5(2009) Orthostatic hypotension Hypomagnesemia, resolved - Echo 08/10 with EF 60%, no WMA or ventricle dysfunction - EKG 09/10: NSR, QTc 420 > SBP goal:less than 160 >Cont statin and ASA > Cont carvedilol 6.25 BID > Hold amlodipine today > Consult internal medicine, appreciate recommendations > No change to BP regimen > Repeat orthostatics 09/07 positive CKD stage 3 - BaselineCr~1.8-2 > Continue to monitor, avoid nephrotoxic meds Oral thrush - initiated course of nystatin 08/28; last day 09/11-then recheck > oral cares BID Hypothyroidism >Cont CHILD DEVELOPMENT ASSOCIATE TEACHER levothyroxine Rash - Dry, red macular rash noted to entire back >Cont Emollient cream Pulmonary nodules - Incidental finding with multiple subcentimeter pulmonary nodules, indeterminan t on initial examination. No dominant pulmonary mass > Follow-up CT chest in 3 months recommended to evaluate for stability Pain Management: pain seems well controlled, heat / ice PRN, topical medication and Tylenol PRN Skin: Encourage the patient to continue to inspect their skin and perform pressu re relief. BMI: Body mass index is 31.11 kg/m. Mental Health, high risk of depression with stroke and aphasia: consulted neuropsychology to provide support / counseling and monitor for depres miladys Sertraline as above DVT Prophylaxis: apixaban GI ppx: pepcid 20mg daily while on tube feeds. Subjective No acute events overnight. Continuous observer at side. Patient had episode of e mesis after tube feeding this morning. Patient is non-verbal, but appears uncomf ortable and tearful. Per observer, patient was calm throughout the night and sle pt well. Patient responded with a quick thumbs up when asked to give a thumbs up with his right hand. Therapy notes reviewed, and patient is progressing. Of not e, patient has progressed in mobility to CGA. Lake catheter with 1300 mL output over last 24 hours. Incontinent of bowel with last BM 09/09. Objective Vital Signs: Last Filed Vital Signs: 24 Gladis r Range BP: 139/82 (09/09 2014) Temp: 37.1 C (98.8 F) (09/09 2014) Pulse: 65 (09/09 2014) Respirations: 18 PER MINUTE (09/09 2014) SpO2: 95 % (09/09 2014) O2 Device: None (Room air) (09/09 2014) BP: (120-141)/(71-82) Temp: [36.4 C (97.5 F)-37.1 C (98.8 F)] Pulse: [65-88] Respirations: [18 PER MINUTE] SpO2: [95 %-98 %] O2 Device: None (Room air) Vitals: 08/24/22 1349 08/27/22 0421 09/03/22 0528 Weight: 92.8 kg (204 lb 9.4 oz) 96.7 kg (213 lb 3 oz) 90 kg (198 lb 6.6 oz) Intake/Output Summary: (Last 24 hours) Intake/Output Summary (Last 24 hours) at 09/10/2022 0626 Last data filed at 09/10/2022 0005 Gross per 24 hour Intake 700 ml Output 1300 ml Net -600 ml Last Bowel Movement Date: 09/09/22 Labs--reviewed Results for orders placed or performed during the hospital encounter of 08/24/22 (from the past 24 hour(s)) CBC CELLULAR THERAPEUTICS Collection Time: 09/10/22 7:20 AM # # Low-High White Blood Cells 9.6 4.5 - 11.0 K/UL RBC 4.62 4.4 - 5.5 M/UL Hemoglobin 14.0 13.5 - 16.5 GM/DL Hematocrit 42.1 40 - 50 % MCV 91.1 80 - 100 FL MCH 30.3 26 - 34 PG MCHC 33.2 32.0 - 36.0 G/DL RDW 14.2 11 - 15 % Platelet Count 205 150 - 400 K/UL MPV 9.6 7 - 11 FL COMPREHENSIVE METABOLIC PANEL Collection Time: 09/10/22 7:20 AM # # Low-High Sodium 140 137 - 147 MMOL/L Potassium 4.0 3.5 - 5.1 MMOL/L Chloride 105 98 - 110 MMOL/L Glucose 143 (H) 70 - 100 MG/DL Blood Urea Nitrogen 28 (H) 7 - 25 MG/DL Creatinine 1.67 (H) 0.4 - 1.24 MG/DL Calcium 9.4 8.5 - 10.6 MG/DL Total Protein 5.8 (L) 6.0 - 8.0 G/DL Total Bilirubin 0.4 0.3 - 1.2 MG/DL Albumin 3.1 (L) 3.5 - 5.0 G/DL Alk Phosphatase 84 25 - 110 U/L AST (SGOT) 17 7 - 40 U/L CO2 24 21 - 30 MMOL/L ALT (SGPT) 17 7 - 56 U/L Anion Gap 11 3 - 12 eGFR 42 (L) >60 mL/min MAGNESIUM Collection Time: 09/10/22 7:20 AM # # Low-High Magnesium 1.8 1.6 - 2.6 mg/dL PHOSPHORUS Collection Time: 09/10/22 7:20 AM # # Low-High Phosphorus 3.2 2.0 - 4.5 MG/DL Medications: Scheduled Meds:amLODIPine (NORVASC) tablet 5 mg, 5 mg, PEG Tube, QDAY apixaban (ELIQUIS) tablet 5 mg, 5 mg, SEE ADMIN INSTRUCTIONS, BID aspirin chewable tablet 81 mg, 81 mg, PEG Tube, QDAY atorvastatin (LIPITOR) tablet 80 mg, 80 mg, PEG Tube, QDAY baclofen (LIORESAL) tablet 5 mg, 5 mg, Oral, QHS carvediloL (COREG) tablet 6.25 mg, 6.25 mg, PEG Tube, BID Diet Enteral Feeding Bolus, , SEE ADMIN INSTRUCTIONS, 5XDAY (6,12,15,18,22) And Water Bolus, 200 mL, PEG Tube, 5XDAY (6,12,15,18,22) [Held by Provider] docusate sodium (COLACE) oral solution 100 mg, 100 mg, PEG Tu be, BID famotidine (PEPCID) tablet 20 mg, 20 mg, PEG Tube, QDAY levETIRAcetam (KEPPRA) oral solution 500 mg, 500 mg, PEG Tube, BID levothyroxine (SYNTHROID) tablet 125 mcg, 125 mcg, PEG Tube, QDAY(07) melatonin tablet 5 mg, 5 mg, PEG Tube, QHS nystatin (MYCOSTATIN) oral suspension 100,000 Units, 100,000 Units, Oral, QID QUEtiapine (SEROquel) tablet 12.5 mg, 12.5 mg, PEG Tube, QHS [Held by Provider] senna (SENOKOT) oral syrup 17.6 mg, 10 mL, PEG Tube, QHS sertraline (ZOLOFT) tablet 50 mg, 50 mg, Feeding Tube, QDAY simethicone (MYLICON) chew tablet 80 mg, 80 mg, Per G Tube, TID traZODone (DESYREL) tablet 100 mg, 100 mg, PEG Tube, QHS Continuous Infusions: PRN and Respiratory Meds:acetaminophen Q4H PRN, bisacodyL QDAY PRN, emollient MO N, pancrelipase 20,880 Units/sodium bicarbonate 650 mg (KU CLOG DESTROYER) PRN ( Orchard Worker from Rx), QUEtiapine QDAY PRN, vitamin A & D PRN Physical Exam General: Alert, NAD HEENT: NCAT, EOMI, good eye contact Heart: RRR, no m/r/g Lungs: Clear to auscultation bilaterally, NWAB on RA Abdomen: Soft. Abdominal binder in place covering peg, PEG without any issues. : Lake catheter in place, draining light yellow urine Extremities: No edema, Neuro: Alert, non verbal, understands basic simple one step commands intermitten tly. No clonus. Hood's negative bilaterally. - L elbow flexion MAS 1/5 - L arm adduction MAS 1/5 - L wrist extension MAS 0/5 - L knee flexion/extension MAS 0/5 Psych: tearful affect MSK: no atrophy Labs & Therapy Notes Reviewed Rosa Wheeler MD Associated attestation - Esme Harkins MD - 09/10/2022 5:33 PM CDT ATTESTATION I personally performed the tineo portions of the E/M visit, discussed case with re sident and concur with resident documentation of history, physical exam, assessm ent, and treatment plan unless otherwise noted. Patient variable with therapy participation, sometimes needing more assist than usual. Assessment has been challenging with severe expressive aphasia. Vitals hunter ve been stable except for orthostatic hypotension-coreg discontinued. Emesis epi sode this am. Maintaining SPO2 on room air, chest has been clear, CXR with simil ar previous atelectasis. Labs including lactic acid negative for infection. EKG stable. Monitor closely, vitals check increased to q4hr, initiate abx if any sig ns of infection. Unsure if depression is a contributor. Was breathing heavily du ring visit this morning, but eyes were tearful and nose congested from emotions. Follow labs and clinical exam again tomorrow, if clinically continues to be vari able, will obtain a UA. If that is negative too, continue to address psychologic al health. Staff name: Esme Harkins MD Date of Service: 09/10/2022 * Doe Fox RN - 09/10/2022 5:39 AM CDT Acute Inpatient Rehabilitation Behavior Summary of Shift Name: Derek Castro Jr. : 1945 Age: 77 y.o. Admission Date: 08/24/2022 LOS: 17 days Date of Service: 09/10/2022 Reason for increased observation? Poor safety awareness, pulling lines/tubes One-on-one safety watch: yes Q15-30 minute safety watch: no Suicide precaution: no Telemonitoring: no Behavior outbursts during this shift? no Description and time(s) of event: n/a Agitation during this shift?no Description and time(s) of event: n/a Active suicide ideation during this shift?no Description and time(s) of event: n/a Poor safety awareness or impulsivity during this shift? Try to get Out bed Description and time(s) of event: Noteworthy visitor interactions during this shift?n/a Sleep/rest patterns observed during this shift? Slept most Of the night Therapeutic interventions: reorientation Additional Comments: * Nicolás Burks - 09/09/2022 7:06 PM CDT Acute Inpatient Rehabilitation Behavior Summary of Shift Name: Derek Castro Jr. : 1945 Age: 77 y.o. Admission Date: 08/24/2022 LOS: 16 days Date of Service: 09/09/2022 Reason for increased observation? Unsafe transfer One-on-one safety watch: Yes Q15-30 minute safety watch: Yes Suicide precaution: No Telemonitoring: No Behavior outbursts during this shift? No Description and time(s) of event: NA Agitation during this shift? No Description and time(s) of event: NA Active suicide ideation during this shift? No Description and time(s) of event: NA Poor safety awareness or impulsivity during this shift? Yes Description and time(s) of event: Tried to pull out his [place] Noteworthy visitor interactions during this shift? NA Sleep/rest patterns observed during this shift? NA Therapeutic interventions: Redirection Additional Comments: NA * Juliet Velasquez MD - 09/09/2022 7:55 AM CDT Physical Medicine & Rehabilitation Progress Note Date of Service: 09/09/2022 Length of Stay: 16 days (admitted 08/24/2022) ASSESSMENT & PLAN: Derek Castro Jr. is a 77 y.o. 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 Monitor for orthostasis (vitals ordered, pending for 09/09). Remain off doxazosin. Continue indwelling urinary catheter Monitoring BMs - LBM 09/09 -Continue current medications as displayed below. -Lab and vitals reviewed as displayed below. -Current functional status reviewed as displayed below. -Patient remains medically and functionally stable for continued participation i n the rehabilitation program. -DVT ppx: continue apixaban (ELIQUIS) tablet 5 mg BID ATTESTATION I personally observed the resident, Dr. Damir Montenegro, performing the E/M, discusse d case with resident, and concur with the documentation of history, physical ass essment and treatment plan in this note. Staff name: Juliet Velasquez MD Date: 09/09/2022 SUBJECTIVE: No acute events overnight. Points "yes" to feeling ok this morning. Perseverat ing on Yes sign today - unable to point to no on command OBJECTIVE: Vitals: 09/08/22 0905 09/08/22 0910 09/08/22 1738 09/09/22 0458 BP: 112/67 (!) 84/52 (!) 140/68 134/67 BP Source: Arm, Left Upper Arm, Left Upper Pulse: 72 70 65 59 Temp: 36.6 C (97.8 F) 36.9 C (98.4 F) SpO2: 93% 95% O2 Device: None (Room air) None (Room air) Weight: Height: Vitals: 08/24/22 1349 08/27/22 0421 09/03/22 0528 Weight: 92.8 kg (204 lb 9.4 oz) 96.7 kg (213 lb 3 oz) 90 kg (198 lb 6.6 oz) GEN: resting comfortably in bed, CO at bedside CV: CTAB, limbs warm and well perfused RESP: respirations easy and regular on room air ABD: mildly distended, non-tender, +BS, +abdominal binder EXT/MSK: no LE edema : indwelling urinary catheter with pale yellow urine NEURO: Aphasic, limited command follow and poor yes/no reliability this morning DATA REVIEWED: Last Bowel Movement Date: 09/09/22 (09/09/2022 4:58 AM) Indwelling urinary catheter No results found for this visit on 08/24/22 (from the past 24 hour(s)). Daily Functional Update: Transfers Transfer: Assistive Device: Hand Hold Assist (09/07/2022 2:30 PM) Transfer: Sit to stand assist level: Contact guard assistance (09/07/2022 2:30 P M) Transfer: Stand pivot assist level: Contact guard assistance (09/07/2022 2:30 PM ) No data recorded Gait/ Mobility Gait: Assistive Device: Hand Hold Assist (09/07/2022 2:30 PM) GAIT: Assist Level: Contact guard assistance (x2) (09/07/2022 2:30 PM) Gait Distance: 450 feet (09/07/2022 2:30 PM) No data recorded No data recorded Toileting Toileting Assist: Total Assist (09/06/2022 1:00 PM) No data recorded Toilet Transfer Assist: WIth two person; Minimum assistance (09/07/2022 9:30 AM) Dressing LE Dressing Assist: Moderate Assist (09/05/2022 8:00 AM) UE Dressing Assist: Minimal Assist (09/05/2022 8:00 AM) Scheduled Meds:amLODIPine (NORVASC) tablet 5 mg, 5 mg, PEG Tube, QDAY apixaban (ELIQUIS) tablet 5 mg, 5 mg, SEE ADMIN INSTRUCTIONS, BID aspirin chewable tablet 81 mg, 81 mg, PEG Tube, QDAY atorvastatin (LIPITOR) tablet 80 mg, 80 mg, PEG Tube, QDAY baclofen (LIORESAL) tablet 5 mg, 5 mg, Oral, QHS carvediloL (COREG) tablet 6.25 mg, 6.25 mg, PEG Tube, BID Diet Enteral Feeding Bolus, , SEE ADMIN INSTRUCTIONS, 5XDAY (6,12,15,18,22) And Water Bolus, 200 mL, PEG Tube, 5XDAY (6,12,15,18,22) [Held by Provider] docusate sodium (COLACE) oral solution 100 mg, 100 mg, PEG Tu be, BID famotidine (PEPCID) tablet 20 mg, 20 mg, PEG Tube, QDAY levETIRAcetam (KEPPRA) oral solution 500 mg, 500 mg, PEG Tube, BID levothyroxine (SYNTHROID) tablet 125 mcg, 125 mcg, PEG Tube, QDAY(07) melatonin tablet 5 mg, 5 mg, PEG Tube, QHS nystatin (MYCOSTATIN) oral suspension 100,000 Units, 100,000 Units, Oral, QID QUEtiapine (SEROquel) tablet 12.5 mg, 12.5 mg, PEG Tube, QHS [Held by Provider] senna (SENOKOT) oral syrup 17.6 mg, 10 mL, PEG Tube, QHS sertraline (ZOLOFT) tablet 50 mg, 50 mg, Feeding Tube, QDAY simethicone (MYLICON) chew tablet 80 mg, 80 mg, Per G Tube, TID traZODone (DESYREL) tablet 100 mg, 100 mg, PEG Tube, QHS Continuous Infusions: PRN and Respiratory Meds:acetaminophen Q4H PRN, bisacodyL QDAY PRN, emollient MO N, pancrelipase 20,880 Units/sodium bicarbonate 650 mg (KU CLOG DESTROYER) PRN ( Orchard Worker from Rx), QUEtiapine QDAY PRN, vitamin A & D PRN * Doe Fox RN - 09/09/2022 5:26 AM CDT Acute Inpatient Rehabilitation Behavior Summary of Shift Name: Derek Castro Jr. : 1945 Age: 77 y.o. Admission Date: 08/24/2022 LOS: 16 days Date of Service: 09/09/2022 Reason for increased observation? Poor safety awareness, pulling lines/tubes One-on-one safety watch: yes Q15-30 minute safety watch:no Suicide precaution: no Telemonitoring: no Behavior outbursts during this shift? no Description and time(s) of event: n/a Agitation during this shift?no Description and time(s) of event: n/a Active suicide ideation during this shift? No Description and time(s) of event: n/a Poor safety awareness or impulsivity during this shift? yes Description and time(s) of event: Try to get out from bed Noteworthy visitor interactions during this shift? N/a Sleep/rest patterns observed during this shift? On and off Therapeutic interventions: redirection Additional Comments: * Reema Mott RN - 09/08/2022 5:37 PM CST Acute Inpatient Rehabilitation Behavior Summary of Shift Name: Derek Castro Jr. : 1945 Age: 77 y.o. Admission Date: 08/24/2022 LOS: 15 days Date of Service: 09/08/2022 Reason for increased observation? Poor safety awareness, pulling lines/tubes One-on-one safety watch: Yes Q15-30 minute safety watch: No Suicide precaution: No Telemonitoring: No Behavior outbursts during this shift? No Description and time(s) of event: n/a Agitation during this shift? Yes Description and time(s) of event: pt feeling restless, tried to get up just befo re noon Active suicide ideation during this shift? No Description and time(s) of event: n/a Poor safety awareness or impulsivity during this shift? Yes Description and time(s) of event: pt tried to pull on his lake once this shift per CO Noteworthy visitor interactions during this shift? none Sleep/rest patterns observed during this shift? Pt rested in the afternoon after getting up in the WC and wheeled around the unit Therapeutic interventions: Mobilization, Redirection and Reorientation Additional Comments: ACE FIRER * Juliet Velasquez MD - 09/08/2022 7:56 AM CST Physical Medicine & Rehabilitation Progress Note Date of Service: 09/08/2022 Length of Stay: 15 days (admitted 08/24/2022) ASSESSMENT & PLAN: Derek Castro Jr. is a 77 y.o. 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 Monitor for orthostasis (vitals ordered - still orthostatic 09/08). Remain off doxazosi n. Continue indwelling urinary catheter Monitoring BMs -Continue current medications as displayed below. -Lab and vitals reviewed as displayed below. -Current functional status reviewed as displayed below. -Patient remains medically and functionally stable for continued participation i n the rehabilitation program. -DVT ppx: continue apixaban (ELIQUIS) tablet 5 mg BID ATTESTATION I personally observed the resident, Dr. Damir Montenegro, performing the E/M, discusse d case with resident, and concur with the documentation of history, physical ass essment and treatment plan in this note. Staff name: Juliet Velasquez MD Date: 09/08/2022 SUBJECTIVE: No acute events overnight. Uses yes/ no sign to state "yes" he did get dizzy ye sterday during therapy OBJECTIVE: Vitals: 09/07/22 1316 09/07/22 1431 09/07/22202409/08/22 0410 BP: (!) 76/48 133/65 (!) 142/66 129/76 BP Source: Arm, Left Upper Arm, Right Upper Pulse: 63 74 64 Temp: 36.8 C (98.2 F) 36.6 C (97.8 F) SpO2: 98% 98% O2 Device: None (Room air) None (Room air) Weight: Height: Vitals: 08/24/22 1349 08/27/22 0421 09/03/22 0528 Weight: 92.8 kg (204 lb 9.4 oz) 96.7 kg (213 lb 3 oz) 90 kg (198 lb 6.6 oz) GEN: resting comfortably in bed, CO at bedside CV: CTAB, limbs warm and well perfused RESP: respirations easy and regular on room air ABD: mildly distended, non-tender, +BS EXT/MSK: no LE edema : indwelling urinary catheter with pale yellow urine NEURO: Aphasic, gives a thumbs up and uses yes/no sign, limited command follow, strong right rig superintendent DATA REVIEWED: Last Bowel Movement Date: 09/06/22 (09/06/2022 8:21 PM) Indwelling urinary catheter No results found for this visit on 08/24/22 (from the past 24 hour(s)). Daily Functional Update: Transfers Transfer: Assistive Device: Hand Hold Assist (09/07/2022 2:30 PM) Transfer: Sit to stand assist level: Contact guard assistance (09/07/2022 2:30 P M) Transfer: Stand pivot assist level: Contact guard assistance (09/07/2022 2:30 PM ) No data recorded Gait/ Mobility Gait: Assistive Device: Hand Hold Assist (09/07/2022 2:30 PM) GAIT: Assist Level: Contact guard assistance (x2) (09/07/2022 2:30 PM) Gait Distance: 450 feet (09/07/2022 2:30 PM) No data recorded No data recorded Toileting Toileting Assist: Total Assist (09/06/2022 1:00 PM) No data recorded Toilet Transfer Assist: WIth two person; Minimum assistance (09/07/2022 9:30 AM) Dressing LE Dressing Assist: Moderate Assist (09/05/2022 8:00 AM) UE Dressing Assist: Minimal Assist (09/05/2022 8:00 AM) Scheduled Meds:amLODIPine (NORVASC) tablet 5 mg, 5 mg, PEG Tube, QDAY apixaban (ELIQUIS) tablet 5 mg, 5 mg, SEE ADMIN INSTRUCTIONS, BID aspirin chewable tablet 81 mg, 81 mg, PEG Tube, QDAY atorvastatin (LIPITOR) tablet 80 mg, 80 mg, PEG Tube, QDAY baclofen (LIORESAL) tablet 5 mg, 5 mg, Oral, QHS carvediloL (COREG) tablet 6.25 mg, 6.25 mg, PEG Tube, BID Diet Enteral Feeding Bolus, , SEE ADMIN INSTRUCTIONS, 5XDAY (6,12,15,18,22) And Water Bolus, 200 mL, PEG Tube, 5XDAY (6,12,15,18,22) [Held by Provider] docusate sodium (COLACE) oral solution 100 mg, 100 mg, PEG Tu be, BID famotidine (PEPCID) tablet 20 mg, 20 mg, PEG Tube, QDAY levETIRAcetam (KEPPRA) oral solution 500 mg, 500 mg, PEG Tube, BID levothyroxine (SYNTHROID) tablet 125 mcg, 125 mcg, PEG Tube, QDAY(07) melatonin tablet 5 mg, 5 mg, PEG Tube, QHS nystatin (MYCOSTATIN) oral suspension 100,000 Units, 100,000 Units, Oral, QID QUEtiapine (SEROquel) tablet 12.5 mg, 12.5 mg, PEG Tube, QHS [Held by Provider] senna (SENOKOT) oral syrup 17.6 mg, 10 mL, PEG Tube, QHS sertraline (ZOLOFT) tablet 50 mg, 50 mg, Feeding Tube, QDAY simethicone (MYLICON) chew tablet 80 mg, 80 mg, Per G Tube, TID traZODone (DESYREL) tablet 100 mg, 100 mg, PEG Tube, QHS Continuous Infusions: PRN and Respiratory Meds:acetaminophen Q4H PRN, bisacodyL QDAY PRN, emollient MO N, pancrelipase 20,880 Units/sodium bicarbonate 650 mg (KU CLOG DESTROYER) PRN ( Orchard Worker from Rx), QUEtiapine QDAY PRN, vitamin A & D PRN ACE FIRER * Doe Fox RN - 09/08/2022 6:28 AM CST Acute Inpatient Rehabilitation Behavior Summary of Shift Name: Derek Castro Jr. : 1945 Age: 77 y.o. Admission Date: 08/24/2022 LOS: 15 days Date of Service: 09/08/2022 Reason for increased observation? Pulling tubes and impulsivity One-on-one safety watch: no Q15-30 minute safety watch: no Suicide precaution: no Telemonitoring: no Behavior outbursts during this shift? no Description and time(s) of event: n/a Agitation during this shift? no Description and time(s) of event: n/a Active suicide ideation during this shift? no Description and time(s) of event: n/a Poor safety awareness or impulsivity during this shift?yes Description and time(s) of event: try to get out bed Noteworthy visitor interactions during this shift? N/a Sleep/rest patterns observed during this shift? Waked most of the night Therapeutic interventions: n/a Additional Comments: ACE FIRER * Hannah Coker RN - 09/07/2022 6:45 PM CST Acute Inpatient Rehabilitation Behavior Summary of Shift Name: Derek Castro Jr. : 1945 Age: 77 y.o. Admission Date: 08/24/2022 LOS: 14 days Date of Service: 09/07/2022 Reason for increased observation? Pulling tubes and impulsivity One-on-one safety watch: Yes Q15-30 minute safety watch: No Suicide precaution: No Telemonitoring: No Behavior outbursts during this shift? No Description and time(s) of event: N/A Agitation during this shift? No Description and time(s) of event: N/A Active suicide ideation during this shift? No Description and time(s) of event: N/A Poor safety awareness or impulsivity during this shift? No Description and time(s) of event: N/A Noteworthy visitor interactions during this shift? N/A Sleep/rest patterns observed during this shift? Took a nap after every therapy s ession Therapeutic interventions: Reorientation Additional Comments: N/A ACE FIRER * Louise Mcdonald PT - 09/07/2022 2:30 PM CST PHYSICAL THERAPY 09/07/22 1430 Type of Note Type of Note Daily Time Calculation Start Time 1430 Stop Time 1500 Time Calculation 30 $$ Gait / Mobility 2 units Subjective Subjective Patient up in chair, nodded head to name and birthday when asked. Bed Mobility Bed Mobility: Sit to Supine Assist Level Stand by assistance Bed Mobility: Sit to supine type of assist With head of bed flat Bed Mobility Comments Max cues to lay down Transfers Transfer: Assistive Device Hand Hold Assist Transfer: Sit to stand assist level Contact guard assistance Transfer: Sit to stand type of assist For safety Transfer: Stand to sit assist level Contact guard assistance Transfer: Stand to sit type of assist For safety Transfer: Stand pivot assist level Contact guard assistance Transfer: Stand pivot type of assist For safety Gait Gait Distance 450 feet GAIT: Assist Level Contact guard assistance (x2) GAIT: Type of Assist For safety Gait: Assistive Device Hand Hold Assist Activity PT Therapeutic Activities Attempted to have patient make a simple word with konstantin luna, however patient unable to do it. Patient engaged in basketball activiti es. Assessment Assessment Patient progressing well. Plan Comments continue gait and other automatic activities, stairs, standing enduranc e/balance, dynamic balance as able, outcomes pending comprehension Louise Mcdonald, PT, DPT ACE FIRER * Lilliam Layne - 09/07/2022 1:30 PM CST SPEECH-LANGUAGE PATHOLOGY 09/07/22 1330 Behavior Comments* Pt seated upright in wheelchair watching TV upon entry. CO present. Pt alert and cooperative, maintained appropriate alertness for session. Dysphagia Goals Therapy Activities PO trials PO Trials Thin liquids;Puree Therapy Activity Comments Oral provided prior to PO trials. DEPUTY HEAD providing pt wit h PO trials thin liquids via cup/straw and pureed solids. Pt able to feed self, however demonstrated difficulty with oral acceptance/initiation for cup sips pos sibly 2/2 apraxia. Improvement noted when provided with straw. Pt exhibited thro at clear in 1/4 trials of thin liquids via straw. Per last VSS, pt did not demon strated aspiration/penetration events with thin liquids although limited trials given. Pt consumed 3 oz consecutively via straw (3 oz. water test used as clinic al tool to assess for possible silent aspiration) in which pt appeared to tolera te w/o overt s/s this date. Pt fed self two bites of applesauce requiring mod cu es for rate control in which throat clearing noted post swallows of both trials. Swallow initiated suspected to be delayed upon observation for all trials howev er cannot definitively determine at bedside. Assessment Pt tolerating PO trials w/ minimal overt s/s aspiration. Pt may be ap propriate for repeat VSS in near future given improving alertness/participation in PO trials. Plan Dysphagia: -- ice chips -- trials of thin liquids -- swallow exercises as able Language: -- establish form of communication -- yes/no accuracy -- 1-step commands -- receptive ID Lilliam Layne MA CCC-DEPUTY HEAD ACE FIRER * Hortencia Chatterjee, OT - 09/07/2022 1:00 PM CST OCCUPATIONAL THERAPY 09/07/22 1300 Time Calculation Start Time 1300 Stop Time 1330 Time Calculation 30 $$ Phys ADL Skills 2 units Subjective Subjective Patient supine in bed upon OT arrival. CO present and requesting orth ostatic vital signs. Grooming Grooming - Wash Both Hands Assist No Grooming Comments Patient initiates and terminates washing hands independently w hen placed in front of sink. Lower Body Dressing Lower Dressing Comments Total assist to change brief/shorts at toilet. Total ass ist to don compression socks. Toileting Toileting Comments Patient with small incontinent bowel episode. Total assist fo r clean up. Daily Care Stool Occurrence 1 Accident - Bowel Small Activity Therapeutic Activities Orthostatic vital signs assessed and documented in flow s heet. Knee high compression donned due to orthostatic hypotension. Assessment Assessment Progressing towards goals. Plan Plan Comments Obtain accurate info regarding prior level of function and home en vironment from family; address shower/shower transfer and toileting/toilet trans shawn; functional command following; automatic tasks; ADL routine Type of Note Type of Note Daily Sebastien Chatterjee, LESLIER/Ludivina, CBIS ACE FIRER * Hortencia Chatterjee OT - 09/07/2022 9:30 AM CST OCCUPATIONAL THERAPY 09/07/22 0930 Time Calculation Start Time 0930 Stop Time 1000 Time Calculation 30 $$ Phys ADL Skills 2 units Subjective Subjective Patient seated in therapy gym upon OT arrival. Agreeable to OT treatm ent session. Precautions Precautions Aspiration;Constant observation Comments aphasia, heart monitor phone needs to stay with pt during therapies; PE G Grooming Grooming - Shave/Apply Make-up Assist Yes Grooming Comments When presented with electric razor, patient would manipulate i n hand but did not initiate bringing to face. Once razor was brought to face, he demonstrates appropriate shaving on right side for ~ 1 minute. Unable to demons trate further shaving independently. OT initiated shaving and patient held OT's hand, eventually guiding hand intermittently throughout task. Overall, patient w as fairly purposeful throughout task. Toileting Toileting-Adjusting clothing BEFORE using toilet, commode, bedpan or urinal Assi st Yes Toileting-Wipe Self Assist Yes Toileting-Adjust clothing AFTER using toilet, commode, bedpan or urinal Assist Y es Toileting Comments Assist x2 for safety. Patient initiates pants management, but requires assist for completion. Assist for posterior hygiene, though no bowel m ovement noted this session. Toileting Transfer Toilet Transfer Assist WIth two person;Minimum assistance Toilet Transfer Comments Minimum assist x2 for spatial orientation and safety. P atient often reaching out, so second person is helpful to guide patient appropri ately. Activity Therapeutic Activities Provided patient with toolbox and asked for flashlight. F lashlight was on top of other tools, but patient reached for it and took it out of the toolbox. He then grabbed a battery and attempted to place it in the light . With assist to doff twist on battery cap, patient then began replacing it inde pendently. Patient left to kiara with toolbox. Assessment Assessment Progressing towards goals. Plan Plan Comments Obtain accurate info regarding prior level of function and home en vironment from family; address shower/shower transfer and toileting/toilet trans shawn; functional command following; automatic tasks; ADL routine Type of Note Type of Note Daily Sebastien Chatterjee, MOTR/L, CBIS ACE FIRER * Louise Mcdonald PT - 09/07/2022 9:00 AM CST PHYSICAL THERAPY 09/07/22 0900 Type of Note Type of Note Daily Time Calculation Start Time 0900 Stop Time 30 Time Calculation 30 $$ Gait / Mobility 1 unit $$ PT Therapeutic Activity 1 unit Subjective Subjective Patient up in [id number] wheelchair. Transfers Transfer: Assistive Device Hand Hold Assist Transfer: Sit to stand assist level Contact guard assistance Transfer: Sit to stand type of assist For safety Transfer: Stand to sit assist level Contact guard assistance Transfer: Stand to sit type of assist For safety Transfer: Stand pivot assist level Contact guard assistance Transfer: Stand pivot type of assist For safety Gait Gait Distance 200 feet GAIT: Assist Level Two person assistance (CGA of 2 persons) GAIT: Type of Assist For safety Gait: Assistive Device Hand Hold Assist Activity PT Therapeutic Activities Playing basketball - followed commands to engage left hand, dribbled, and tossed ball in to hoops. Assessment Assessment Patient with improved command follow and facial expressions indicatin g potential improvement in comprehension/recognition. Plan Comments continue gait and other automatic activities, stairs, standing enduranc e/balance, dynamic balance as able, outcomes pending comprehension Louise Mcdonald PT, DPT ACE FIRER * Lady Downey MS,[facility] - 09/07/2022 7:30 AM CST SPEECH-LANGUAGE PATHOLOGY 09/07/22 0730 Behavior Comments* Patient in bed upon DEPUTY HEAD arrival. CO present at DEPUTY HEAD arrival and exit. Dysphagia Goals Therapy Activities PO trials PO Trials Thin liquids Therapy Activity Comments Oral care completed in an attempt to reduce potential aspiration of bacteria-laden oropharyngeal secretions prior to po trials. Given toothbrush, Patient independently initiated oral care this date. DEPUTY HEAD provided HO H assistance to ensure Patient is addressing all surfaces of teeth and tongue. F ollowing oral care, Patient presented with cup of ice chips and thin liquids. Christian peralta independently initiated sips of thin liquids via cup this date. Patient in dependently regulating rate/size of bolus intake. No overt s/s of distress appre ciated with oral trials this date. Attempted to assess vocal quality post trials , however, Patient did not verbalize throughout session this date despite verbal model and maximal verbal cues and encouragement. Auditory Comprehension Goals Therapy Activities Command following Therapy Activity Comments Assessed Patient command execution during functional a ctivity of donning brief and transferring from bed to wheelchair this date. Megan ent noted to follow simple 1-step commands throughout task completion. Patient a lso noted to make selection of gown when given choice of shorts vs. gown. Annamarie law successfully transferred from bed to wheelchair given staff assist of 2. Overall, Patient demonstrates increased command execution given functional tasks (donning brief, wiping mouth, etc.) vs. execution of simple body commands (open mouth, stick out tongue, touch nose, etc.). Assessment Recommend Patient remain NPO at this time. In light of quality of lif e, hydration, and to reduce oropharyngeal atrophy, patient may have ice chips (1 -2 at a time) following oral care with supervision when seated upright. Plan Dysphagia: -- ice chips -- trials of thin liquids -- swallow exercises as able Language: -- establish form of communication -- yes/no accuracy -- 1-step commands -- receptive ID Lady Downey MS, CCC-DEPUTY HEAD ACE FIRER * Azael Addison MD - 09/07/2022 6:33 AM CST General Medicine Consult Progress Note Name: Derek Castro JrSourav : 1945 Age: 77 y.o. Admission Date: 08/24/2022 LOS: 14 days Date of Service: 09/07/2022 Reason for Consult: Hypotension with background Hypertension Patient with L MCA stroke, CAD s/p CABG. Had 9 beats of VTACh on event monitor. Has been hypertensive for several days but recently developed hypotension. No s/ s of infection. Please assist with management of anti-hypertensives. Consult type: Co-Management w/Signed Orders A 77-year-old male with history of hyperlipidemia, hypertension, coronary diseas e status post CABG in 2009, hypothyroidism, right lower extremity DVT, CKD stage III seizure disorder and multiple strokes who had recent acute ischemic left MCA stroke admitted to rehab on 08/24/2022 following transfer from acute care where he was admitted between 08/09/2022 until 08/24/2022. Internal medicine now consul earline for hypertension --Hypotension has resolved but with orthostatic hypotension on a background hype rtension while on antihypetensives[ orthostatic blood pressure measurements on Supine 113/58 and standing 99/37]-has been on amlodipine 10 mg p.o. daily, Coreg 6.25 mg p.o. twice daily, doxazosin 1 mg p.o. daily. Do not see any new medication changes. Heart rate was in the 70's - latest BP stable Vitals: 09/06/22 0811 09/06/22200609/07/22 0901 09/07/22 0902 BP: 134/76 127/70 111/72 111/72 BP Source: Arm, Left Upper Arm, Left Upper Pulse: 73 70 66 68 Temp: 36.7 C (98 F) 36.8 C (98.3 F) SpO2: 95% 93% O2 Device: None (Room air) None (Room air) Weight: Height: --Short non sustained V.tach - 9 beats -- Recent acute left M2 2 occlusion[ 08/09/2022] status post IR thrombectomy with acute left basal ganglia infarct and chronic vertebral artery occlusion - On Domonique jeff, Atorvastatin and ASA -- Aphasia- both receptive and expressive -- Oropharyngeal dysphagia - on Tube feeding with PEG tube. Speech therapy on petrona jackosn -- Seizure disorder - on Keppra 500 MG TID -- Urinary retention with neurogenic bladder -- Constipation/incontinence with neurogenic bowel -- Hypothyroidism -- Hyperlipidemia -- CAD S/P CABG X 5 [ 2009] -- CKD stage III - baseline creatinine 1.6 - 1.8 - currently at baseline 1.7 to day. -- Pulmonary nodules --History of RLE DVT on Anticoagulation with Apixaban --Insomnia with agitation now improving - Zoloft, Trazedone and Quetiapine --Oral candidiasis - on Nystatin Recommendations: --stable blood pressure overall while on current regimen with Coreg 6.25 mg p .o. twice daily, doxazosin 1 mg p.o. daily and amlodipine 10 mg p.o. daily. --Continue on holding Doxazosin in light of orhtostaitc hypotension. If orhtosta itc hypotension persists or his blood pressure remains stable of it would d/c Do xazocin all together --Repeat orthostatic blood pressure measurement on 09/07/22[ pending ] -- Has had multiple strokes with background hypertension would refrain from taki ng him off any of the medications especially as his blood pressure has improved. If he becomes hypotensive and taking blood pressure medication off becomes a n ecessity would take doxazosin off first followed by amlodipine followed by coreg . --Keep K > 4 and Mg > 2 Discussed with primary team - Rosa Romero from Rehab team Total Time Today was 35 minutes in the following activities: Preparing to see th e patient, Obtaining and/or reviewing separately obtained history, Performing a medically appropriate examination and/or evaluation, Counseling and educating th e patient/family/caregiver, Ordering medications, tests, or procedures, Referrin g and communication with other health nurse healthcare manager (when not separately re ported), Documenting clinical information in the electronic or other health [address], Independently interpreting results (not separately reported) and communicati ng results to the patient/family/caregiver, and Care coordination (not separatel y reported) Please direct initial questions to the primary service. General Medicine consults can be contacted via Voalte using [employer] Consults 1 or 2 First Call 24 hours a day Interim events: Blood pressure has remained stable overall but orthostatic hypot ension on bedside measurement on 09/05/22 Subjective (today): Up in his wheel chair working with Speech team having ice ips. He isn't interactive. Worked with PT/ OT and speech team. No other inter alexandrea event reported Review of Systems: Review of systems was negative except as noted above. Vital Signs: Last Filed in 24 hours Vital Signs: 24 hour Range BP: 111/72 (09/07 09) Temp: 36.8 C (98.3 F) (09/07 900) Pulse: 68 (09/07 901) Respirations: 18 PER MINUTE (09/07 900) SpO2: 93 % (09/07 900) O2 Device: None (Room air) (09/07 900) BP: (111-127)/(70-72) Temp: [36.8 C (98.3 F)] Pulse: [66-70] Respirations: [18 PER MINUTE] SpO2: [93 %] O2 Device: None (Room air) Physical Exam: General: Alert, cooperative, no distress, appears stated age not following com mands Head: Normocephalic, without obvious abnormality, atraumatic Eyes: Conjunctivae/corneas clesar. Throat: Lips, mucosa and tongue normal. Teeth and gums normal Neck: Supple, symmetrical, trachea midline, no adenopathy, thyroid: no enlargem ent/tenderness/nodules, no carotid bruit and no JVD Lungs: Clear to auscultation bilaterally Heart: Regular rate and rhythm, S1, S2 normal, no murmur, click rub or gallop Abdomen: Abdominal binder in place with PEG tube underneath. Soft, non-tender. Bowel sounds normal. No masses. No organomegaly. 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: non verbal and not able to interact verbally, not follow commands , able to squeeze hands Lab/Radiology/Other Diagnostic Tests: 24-hour labs: Results for orders placed or performed during the hospital encounter of 08/24/22 (from the past 24 hour(s)) CBC CELLULAR THERAPEUTICS Collection Time: 09/07/22 7:25 AM Result Value Ref Range White Blood Cells 7.5 4.5 - 11.0 K/UL RBC 4.58 4.4 - 5.5 M/UL Hemoglobin 14.2 13.5 - 16.5 GM/DL Hematocrit 42.1 40 - 50 % MCV 91.8 80 - 100 FL MCH 30.9 26 - 34 PG MCHC 33.7 32.0 - 36.0 G/DL RDW 14.4 11 - 15 % Platelet Count 218 150 - 400 K/UL MPV 10.1 7 - 11 FL COMPREHENSIVE METABOLIC PANEL Collection Time: 09/07/22 7:25 AM Result Value Ref Range Sodium 143 137 - 147 MMOL/L Potassium 3.8 3.5 - 5.1 MMOL/L Chloride 109 98 - 110 MMOL/L Glucose 136 (H) 70 - 100 MG/DL Blood Urea Nitrogen 38 (H) 7 - 25 MG/DL Creatinine 1.63 (H) 0.4 - 1.24 MG/DL Calcium 9.3 8.5 - 10.6 MG/DL Total Protein 6.0 6.0 - 8.0 G/DL Total Bilirubin 0.4 0.3 - 1.2 MG/DL Albumin 3.1 (L) 3.5 - 5.0 G/DL Alk Phosphatase 82 25 - 110 U/L AST (SGOT) 17 7 - 40 U/L CO2 23 21 - 30 MMOL/L ALT (SGPT) 17 7 - 56 U/L Anion Gap 11 3 - 12 eGFR 43 (L) >60 mL/min MAGNESIUM Collection Time: 09/07/22 7:25 AM Result Value Ref Range Magnesium 2.0 1.6 - 2.6 mg/dL PHOSPHORUS Collection Time: 09/07/22 7:25 AM Result Value Ref Range Phosphorus 3.0 2.0 - 4.5 MG/DL No pertinent radiology. Azael Addison MD ACE FIRER * Rosa Wheeler MD - 09/07/2022 6:29 AM CST Physical Medicine & Rehabilitation Progress Note Today's Date: 09/07/2022 Admission Date: 08/24/2022 LOS: 14 days Insurance: [employer] Principal Problem: Acute ischemic left MCA stroke (HCC) Active Problems: CAD (coronary artery disease) Stage 3b chronic kidney disease (HCC) Hyperlipidemia Primary hypertension Hypothyroidism Seizure disorder (HCC) History of multiple strokes Global aphasia Acute right hemiparesis (HCC) Impaired mobility and activities of daily living Risk for falls Assessment/Plan: Derek Castro is a 77 y.o. male admitted to [facility] on 08/24/2022 with the following issues: stroke Rehabilitation Plan Tentative discharge date: Rehabilitation: Patient will continue with comprehensive therapies including phy sical therapy, occupational therapy, speech & language pathology, specialized rehab nursing, neuropsychology and physiatry oversight. Goals: at ambulation level, household mobility, Stand by assistance, With caregi tara assistance, Progressing Recommended therapy after discharge: Home with Assistance, and, Home Health Sett ing PT recommended equipment: TBD OT recommended equipment: Too early to determine Daily Functional Update: Transfers Transfer: Assistive Device: Hand Hold Assist (09/06/2022 1:00 PM) Transfer: Sit to stand assist level: Minimum assistance (09/06/2022 1:00 PM) Transfer: Stand pivot assist level: Minimum assistance (09/06/2022 1:00 PM) No data recorded Gait/ Mobility Gait: Assistive Device: Hand Hold Assist (09/06/2022 2:00 PM) GAIT: Assist Level: Two person assistance (09/06/2022 2:00 PM) Gait Distance: 150 feet (+ gait on treadmill, see comments below) (09/06/2022 2:0 0 PM) No data recorded No data recorded Toileting Toileting Assist: Total Assist (09/06/2022 1:00 PM) No data recorded Toilet Transfer Assist: Minimum assistance (09/06/2022 1:00 PM) Dressing LE Dressing Assist: Moderate Assist (09/05/2022 8:00 AM) UE Dressing Assist: Minimal Assist (09/05/2022 8:00 AM) Current Medical Problems/Risks of Medical Complications/Management Acute Left M2 occlusions/p IRw/ aTICI3 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 Hx of multiple ischemic strokes(2019, R MCA 05/2022, L NILA 07/2022) Severe dysphagia and global aphasia, impaired cognition, impaired mobility with right hemiplegia, impaired ADLs >Will continue indefinitely on Eliquis 5mg BID and ASA 81mg daily per Neurology recommendations > 30 day cardiac event monitoror ILR at discharge and will maintain > PT/OT/DEPUTY HEAD to eval and treat > Sertraline as below, unable to utilize modafinil or amantadine secondary to PEG > Baclofen 5 mg qhs (start 09/05) H/o Seizures > Continue CHILD DEVELOPMENT ASSOCIATE TEACHER Keppra 500 mg BID > Low threshold for neurology consult versus increasing Keppra to 1000 mg twice daily secondary to concerns for breakthrough seizure on 08/31/2022 lasting less than 10 seconds without tonic-clonic movement Oropharyngeal Dysphagia - Repeat video swallow 08/20 did not go well thus PEG placed on 08/20 > PEG care, abdominal binder > On bolus feeds and water thr peg, NPO, ice chip protocol > monitor labs-CMP, mag/phos while on TF > consulted siebel crm developer > DEPUTY HEAD to work with patient on dysphagia. Agitation, restlessness Disturbed sleep wake cycle, insomnia Agitation continues to improve >Melatonin 5mg QHS, increase trazodone to 100 mg QHS, and seroquel 12.5mg at bedtime. PRN seroquel during day ONLY for agitation/aggression that is not redirectable. > Sleep hygiene > Redirection and reorientation > protect tubes and lines > Continue am SSRI (zoloft 50 mg) started 08/30 to improve daytime alertness/mood Neurogenic bladder/urinary retention : Lake replaced 08/22 and fter failed voiding trial > Hold doxazosin d/t orthostasis > Will keep Lake in until agitation, aphasia and understanding improve some, as he was not tolerating bladder scans/timed voids/straight caths during last trial. Has a history of urinary retention does have a Urologist at home. If second voiding trial is not successful we will discharge home with Lake with follow-up with urology. Neurogenic bowel: constipation, incontinence > Continue senna. Bm + now > May need a set bowel time if incontinence continues. > Will discontinue magox for now, replace magnesium via IV in future > Will consider oral fiber supplement HTN/ HLD CAD s/p CABG x5(2009) Orthostatic hypotension Hypomagnesemia, resolved - Echo 08/10 with EF 60%, no WMA or ventricle dysfunction > SBP goal:less than 160 >Cont statin and ASA > Decrease amlodipine to 5mg daily > Consult internal medicine, appreciate recommendations > No change to BP regimen > Repeat orthostatics 09/07 positive CKD stage 3 - BaselineCr~1.8-2 > Continue to monitor, avoid nephrotoxic meds Oral thrush - initiated course of nystatin 08/28; last day 09/11-then recheck > oral cares BID Hypothyroidism >Cont CHILD DEVELOPMENT ASSOCIATE TEACHER levothyroxine Rash - Dry, red macular rash noted to entire back >Cont Emollient cream Pulmonary nodules - Incidental finding with multiple subcentimeter pulmonary nodules, indeterminan t on initial examination. No dominant pulmonary mass > Follow-up CT chest in 3 months recommended to evaluate for stability Pain Management: pain seems well controlled, heat / ice PRN, topical medication and Tylenol PRN Skin: Encourage the patient to continue to inspect their skin and perform pressu re relief. BMI: Body mass index is 31.11 kg/m. Mental Health, high risk of depression with stroke and aphasia: consulted neuropsychology to provide support / counseling and monitor for depres miladys Sertraline as above DVT Prophylaxis: apixaban GI ppx: pepcid 20mg daily while on tube feeds. Subjective No acute events overnight. Patient seen sitting upright in wheelchair, observer at side. Patient is non-verbal but is alert and makes movements with mouth when asked questions. Per chart review, last bowel movement was liquid in consistenc y. No behavioral concerns from day or night observer. Therapy notes reviewed, an d patient is progressing. Lake catheter with 740 mL output over last 24 hours. Incontinent of bowel with last BM 09/06. Objective Vital Signs: Last Filed Vital Signs: 24 Gladis r Range BP: 127/70 (09/06 2006) Temp: 36.7 C (98 F) (09/06 810) Pulse: 70 (09/06 2006) Respirations: 16 PER MINUTE (09/06 810) SpO2: 95 % (09/06 810) O2 Device: None (Room air) (09/06 810) BP: (127-134)/(70-76) Temp: [36.7 C (98 F)] Pulse: [70-73] Respirations: [16 PER MINUTE] SpO2: [95 %] O2 Device: None (Room air) Vitals: 08/24/22 1349 08/27/22 0421 09/03/22 0528 Weight: 92.8 kg (204 lb 9.4 oz) 96.7 kg (213 lb 3 oz) 90 kg (198 lb 6.6 oz) Intake/Output Summary: (Last 24 hours) Intake/Output Summary (Last 24 hours) at 09/07/2022 0958 Last data filed at 09/07/2022 0746 Gross per 24 hour Intake 1235 ml Output 690 ml Net 545 ml Last Bowel Movement Date: 09/06/22 Labs--reviewed Results for orders placed or performed during the hospital encounter of 08/24/22 (from the past 24 hour(s)) CBC CELLULAR THERAPEUTICS Collection Time: 09/07/22 7:25 AM # # Low-High White Blood Cells 7.5 4.5 - 11.0 K/UL RBC 4.58 4.4 - 5.5 M/UL Hemoglobin 14.2 13.5 - 16.5 GM/DL Hematocrit 42.1 40 - 50 % MCV 91.8 80 - 100 FL MCH 30.9 26 - 34 PG MCHC 33.7 32.0 - 36.0 G/DL RDW 14.4 11 - 15 % Platelet Count 218 150 - 400 K/UL MPV 10.1 7 - 11 FL COMPREHENSIVE METABOLIC PANEL Collection Time: 09/07/22 7:25 AM # # Low-High Sodium 143 137 - 147 MMOL/L Potassium 3.8 3.5 - 5.1 MMOL/L Chloride 109 98 - 110 MMOL/L Glucose 136 (H) 70 - 100 MG/DL Blood Urea Nitrogen 38 (H) 7 - 25 MG/DL Creatinine 1.63 (H) 0.4 - 1.24 MG/DL Calcium 9.3 8.5 - 10.6 MG/DL Total Protein 6.0 6.0 - 8.0 G/DL Total Bilirubin 0.4 0.3 - 1.2 MG/DL Albumin 3.1 (L) 3.5 - 5.0 G/DL Alk Phosphatase 82 25 - 110 U/L AST (SGOT) 17 7 - 40 U/L CO2 23 21 - 30 MMOL/L ALT (SGPT) 17 7 - 56 U/L Anion Gap 11 3 - 12 eGFR 43 (L) >60 mL/min MAGNESIUM Collection Time: 09/07/22 7:25 AM # # Low-High Magnesium 2.0 1.6 - 2.6 mg/dL PHOSPHORUS Collection Time: 09/07/22 7:25 AM # # Low-High Phosphorus 3.0 2.0 - 4.5 MG/DL Medications: Scheduled Meds:amLODIPine (NORVASC) tablet 10 mg, 10 mg, PEG Tube, QDAY apixaban (ELIQUIS) tablet 5 mg, 5 mg, SEE ADMIN INSTRUCTIONS, BID aspirin chewable tablet 81 mg, 81 mg, PEG Tube, QDAY atorvastatin (LIPITOR) tablet 80 mg, 80 mg, PEG Tube, QDAY baclofen (LIORESAL) tablet 5 mg, 5 mg, Oral, QHS carvediloL (COREG) tablet 6.25 mg, 6.25 mg, PEG Tube, BID Diet Enteral Feeding Bolus, , SEE ADMIN INSTRUCTIONS, 5XDAY (6,12,15,18,22) And Water Bolus, 180 mL, PEG Tube, 5XDAY (6,12,15,18,22) [Held by Provider] docusate sodium (COLACE) oral solution 100 mg, 100 mg, PEG Tu be, BID [Held by Provider] doxazosin (CARDURA) tablet 1 mg, 1 mg, PEG Tube, QDAY famotidine (PEPCID) tablet 20 mg, 20 mg, PEG Tube, QDAY levETIRAcetam (KEPPRA) oral solution 500 mg, 500 mg, PEG Tube, BID levothyroxine (SYNTHROID) tablet 125 mcg, 125 mcg, PEG Tube, QDAY(07) melatonin tablet 5 mg, 5 mg, PEG Tube, QHS nystatin (MYCOSTATIN) oral suspension 100,000 Units, 100,000 Units, Oral, QID potassium chloride oral solution 20 mEq, 20 mEq, Oral, ONCE QUEtiapine (SEROquel) tablet 12.5 mg, 12.5 mg, PEG Tube, QHS [Held by Provider] senna (SENOKOT) oral syrup 17.6 mg, 10 mL, PEG Tube, QHS sertraline (ZOLOFT) tablet 50 mg, 50 mg, Feeding Tube, QDAY simethicone (MYLICON) chew tablet 80 mg, 80 mg, Per G Tube, TID traZODone (DESYREL) tablet 100 mg, 100 mg, PEG Tube, QHS Continuous Infusions: PRN and Respiratory Meds:acetaminophen Q4H PRN, bisacodyL QDAY PRN, emollient MO N, pancrelipase 20,880 Units/sodium bicarbonate 650 mg (KU CLOG DESTROYER) PRN ( Orchard Worker from Rx), QUEtiapine QDAY PRN, vitamin A & D PRN Physical Exam General: Alert, NAD HEENT: NCAT, EOMI, good eye contact Heart: Extremities well perfused Lungs: Normal work of breathing on room air, appropriate chest rise with inspira tion Abdomen: Soft. Abdominal binder in place covering peg, PEG without any issues. : Lake catheter in place, draining light yellow urine Extremities: No edema, Neuro: Alert, non verbal, understands basic simple one step commands intermitten tly. No clonus. Hood's negative bilaterally. - L elbow flexion MAS 1/5 - L arm adduction MAS 1/5 - L wrist extension MAS 0/5 Psych: appropriate affect MSK: no atrophy Labs & Therapy Notes Reviewed Rosa Wheeler MD ACE FIRER Associated attestation - Esme Harkins MD - 09/07/2022 2:59 PM FURNACE FIRER ATTESTATION I personally performed the tineo portions of the E/M visit, discussed case with re sident and concur with resident documentation of history, physical exam, assessm ent, and treatment plan unless otherwise noted. Seen in his room, OT present. OT reports noticing some more command following du ring today's sessions. OT just measured orthostatic vitals, which are positive. Informed Dr. Addison. Plan to discontinue doxazosin and decrease amlodipine, incre ase water bolus slightly from 180 x 5 to 200 x5 for a total of 2L/24hrs when add ed with TF water content. Follow- There will have to be a fine balance between p revention HTN as well as orthostatic hypotension. Staff name: Esme Harkins MD Date of Service: 09/07/2022 * Doe Fox RN - 09/07/2022 6:28 AM CST Acute Inpatient Rehabilitation Behavior Summary of Shift Name: Derek Castro : 1945 Age: 77 y.o. Admission Date: 08/24/2022 LOS: 14 days Date of Service: 09/07/2022 Reason for increased observation? pulling tubes and impulsivity One-on-one safety watch: YES Q15-30 minute safety watch: NO Suicide precaution: NO Telemonitoring: NO Behavior outbursts during this shift? NO Description and time(s) of event:N/A Agitation during this shift?NO Description and time(s) of event: N/A Active suicide ideation during this shift? NO Description and time(s) of event: N/A Poor safety awareness or impulsivity during this shift? Pt try to get out bed an rené lake Description and time(s) of event: Noteworthy visitor interactions during this shift? n/a Sleep/rest patterns observed during this shift? On and off Therapeutic interventions: reorientation Additional Comments: ACE FIRER * Louise Mcdonald, PT - 09/06/2022 2:00 PM CST PHYSICAL THERAPY 09/06/22 1400 Type of Note Type of Note Daily Time Calculation Start Time 1400 Stop Time 1500 Time Calculation 60 $$ Gait / Mobility 3 units $$ PT Therapeutic Activity 1 unit Subjective Subjective Patient up in gym post OT session. Gait Gait Distance 150 feet (+ gait on treadmill, see comments below) GAIT: Assist Level Two person assistance GAIT: Type of Assist Facilitation of trunk;Facilitation of weight shift Gait: Assistive Device Hand Hold Assist Activity Body Weight Supported Treadmill Walking Gait x 12 minutes, 0.10miles. Multiple r est breaks throughout. Patient with right arm holding on to handrail anterior to trunk and left hand posterior to trunk. Patient occasionally stepping right foot off treadmill and stepping only with left, reaching for random objects through out gait cycle. Patient required physical assist to maintain upright position at times. Assessment Assessment Patient back to room, assisted in to bed with positioning in midline position. Patient still limited by minimal to no command follow. Plan Comments continue gait and other automatic activities, stairs, standing enduranc e/balance, dynamic balance as able, outcomes pending comprehension Louise Mcdonald, PT, DPT ACE FIRER * Katherine Mir, OT - 09/06/2022 1:00 PM CST OCCUPATIONAL THERAPY 09/06/22 1300 Time Calculation Start Time 1300 Stop Time 1400 Time Calculation 60 $$ Phys ADL Skills 2 units $$ Therapeutic Activity 2 unit - 30 min Subjective Subjective Patient agreeable to therapy upon OT arrival. Precautions Precautions Aspiration;Constant observation Comments aphasia, heart monitor phone needs to stay with pt during therapies; PE G Comments abdominal binder Toileting Toileting-Adjusting clothing BEFORE using toiet, commode, bedpan or urinal Cheng t Yes Toileting-Wipe Self Assist Yes Toileting-Adjust clothing AFTER using toilet, commode, bedpan or urinal Assist Y es Toileting Assist Total Assist Toileting Comments Toileting x 2. Requires increased time to complete with physi charlie cueing throughout for completion. Toileting Transfer Toilet Transfer Assist Minimum assistance Bed Mobility Bed Mobility: Supine to sit assist level Minimum assistance Bed Mobility: Supine to sit type of assist With head of bed elevated Transfers Transfer: Assistive Device Hand Hold Assist Transfer: Sit to stand assist level Minimum assistance Transfer: Sit to stand type of assist Facilitation of trunk;Facilitation of weig ht shift;For safety;Increased time to complete Transfer: Stand to sit assist level Minimum assistance Transfer: Stand to sit type of assist For safety Transfer: Stand pivot assist level Minimum assistance Transfer: Stand pivot type of assist Assist with Right lower extremity;Facilitat ion of weight shift;Facilitation of trunk;For safety;Increased time to complete Transfer Comment SBA of second person, completes with rest breaks throughout. En couraged sitting throughout for rest breaks d/t fatigue. Activity Therapeutic Activities Attempted completing copying/organizing letters in order for name with use of selected letters. Patient plays with letters but does not p urposely use them. Organizes blocks with max A for organizing with colors. Physi charlie and verbal cueing. Parquetry boards completed with moderate assist, required increased time for managing and max cueing for completion and continual attendi ng to task. Completes with rest breaks during activities. Trialed use of music t o increase participation, patient shows interest in music intermittently. Comple ty ambulation with various bouts. Patient completes ring activities for attempt s of throwing rings onto ring toss, encouraged use for grasping various rings wi th managing BUE and reaching, patient with difficulty tossing items or following commands accurately. Intermittently grasps ring when told. Assessment Assessment Patient continues to have difficulty to managing command following, l imited by endurance for ambulation. Plan Plan Comments Obtain accurate info regarding prior level of function and home en vironment from family; address shower/shower transfer and toileting/toilet trans shawn. Type of Note Type of Note Daily Katherine Mir OTR/L ACE FIRER * Lady Downey MS,CCC-DEPUTY HEAD - 09/06/2022 10:30 AM CST SPEECH-LANGUAGE PATHOLOGY 09/06/22 1030 Behavior Comments* Patient seated upright in wheelchair upon DEPUTY HEAD arrival. CO present upon DEPUTY HEAD arrival and exit. Dysphagia Goals Therapy Activity Comments Attempted to initiate po trials to address oropharynge al dysphagia. Patient refused trials at this time. Patient noted to seal lips an d turn head upon DEPUTY HEAD attempts at presentation. Patient made no attempt to indepe ndently initiate trials despite encouragement and cues. Motor Speech - Apraxia Goals Therapy Activities Imitative task Imitative Task Oral motor movements - verbal;Oral motor movements - visual;Oral motor movements - tactile Therapy Activity Comments Attempted to initiate imitative task with oral motor m ovements. DEPUTY HEAD transitioned Patient to bathroom to provide visual, verbal, and ta ctile cues. Despite maximal cues, Patient did not attempt to imitate oral moveme nts. Oral movements attempted this date include mouth open and tongue protrusion . Verbal Expression Goals Therapy Activities Nonverbal communication Nonverbal Communication Gestures Therapy Activity Comments DEPUTY HEAD attempted to engage Patient in use of gestures to establish reliable form of communication. Patient was able to imitate thumbs up and thumbs down, however, did not attempt to utilize for functional communicatio n. Patient was noted to nod head "yes" x1 when DEPUTY HEAD asked "do you want to be done wi th speech therapy?". Patient made no other attempts to communicate despite maxim al encouragement and cues this date. Assessment Patient communicated "yes" via head nod x1 this date. Otherwise, Megan ent made no attempts to vocalize or functionally communicate with therapist this date. Will continue to address. Plan Dysphagia: -- ice chips -- trials of thin liquids -- swallow exercises as able Language: -- establish form of communication -- yes/no accuracy -- 1-step commands -- receptive ID Lady Downey MS, CCC-DEPUTY HEAD ACE FIRER * Zoë Kennedy - 09/06/2022 9:30 AM CST Recreation Therapy Daily Note Start Time: 929 Stop Time: 1000 Total Time: 30 Subjective: Patient seated in wheelchair, agreeable to session. MD and CO presen t for session. Activity Type: 1:1 Intervention/Activity: Therapist assisted with setting up picture's of patient's family in room. Patient initiated holding pictures of family with right upper e xtremity. Yes/no communication board was utilized when asked direct questions. P atient able to grasp foam basketball with right upper extremity. Tossed ball to/ from with therapist x3. Patient watching TV with all needs in reach. Assessment: Patient was pleasant. Required max verbal cues for initiation and di rect 1-step commands when tossing ball. Patient was smiling and giving appropria te facial expressions when grasping ball. Able to point to yes/no on when asked direct questions. Plan: spending time outside MAYRA Quintanilla Certified Frame Runner ACE FIRER * Lady Downey MS,[facility]-DEPUTY HEAD - 09/06/2022 9:00 AM CST SPEECH-LANGUAGE PATHOLOGY 09/06/22 0900 Behavior Comments* Patient in bed upon DEPUTY HEAD arrival. RN present administering medications via PEG tube. Dysphagia Goals Therapy Activities PO trials PO Trials Ice chips Therapy Activity Comments Oral care completed in an attempt to reduce potential aspiration of bacteria-laden oropharyngeal secretions prior to po trials. DEPUTY HEAD pr ovided KALSKAG assistance with oral care to ensure Patient cleaning surface of all t eeth and tongue. Following completion of oral care, Patient consumed ice chips x 5 this date. Patient held cup of thin liquids/ice in left hand and self-fed with right hand. Patient demonstrated throat clear response following 1 trial this d ate. Remainder of trials consumed free from overt s/s of distress. Attempted to initiate trials of thin liquids via spoon and cup. Patient sealed lips and turne d head upon DEPUTY HEAD attempt at presentation via spoon. Patient made no attempt to in itiate thin liquids trials independently. Recommend Patient remain NPO at this t marvin. Auditory Comprehension Goals Therapy Activities Command following Therapy Activity Comments Patient noted to follow simple 1-step commands to reinoso sfer from bed to wheelchair. Patient sequenced through task given assist of staf f x2. Assessment Limited po trials administered this date secondary to Patient oral ac ceptance/ refusal. Recommend Patient remain NPO at this time. Of note, Patient made attempt at verbalization x2 this date. Verbalizations unin telligible at this time. Plan Dysphagia: -- ice chips -- trials of thin liquids -- swallow exercises as able Language: -- establish form of communication -- yes/no accuracy -- 1-step commands -- receptive ID Lady Downey MS, CCC-DEPUTY HEAD ACE FIRER * Azael Addison MD - 09/06/2022 6:27 AM CST General Medicine Consult Progress Note Name: Derek Castro Jr. : 1945 Age: 77 y.o. Admission Date: 08/24/2022 LOS: 13 days Date of Service: 09/06/2022 Reason for Consult: Hypotension with background Hypertension Patient with L MCA stroke, CAD s/p CABG. Had 9 beats of VTACh on event monitor. Has been hypertensive for several days but recently developed hypotension. No s/ s of infection. Please assist with management of anti-hypertensives. Consult type: Co-Management w/Signed Orders A 77-year-old male with history of hyperlipidemia, hypertension, coronary diseas e status post CABG in 2009, hypothyroidism, right lower extremity DVT, CKD stage III seizure disorder and multiple strokes who had recent acute ischemic left MCA stroke admitted to rehab on 08/24/2022 following transfer from acute care where he was admitted between 08/09/2022 until 08/24/2022. Internal medicine now consul earline for hypertension --Hypotension[resolved] with background hypertension but with orthostatic hypote nsion[ orthostatic blood pressure measurements on 09/05/22 Supine 113/58 and stand ing 99/37]-has been on amlodipine 10 mg p.o. daily, Coreg 6.25 mg p.o. twice kaylen ly, doxazosin 1 mg p.o. daily. Do not see any new medication changes. Heart ra te was in the 60s and 70s - latest BP stable Vitals: 09/05/22 1300 09/05/22 1821 09/05/22200809/05/222011 BP: 111/62 128/72 127/72 127/72 BP Source: Arm, Left Upper Arm, Left Upper Pulse: 72 84 84 Temp: 36.8 C (98.2 F) 37 C (98.6 F) SpO2: 93% 93% O2 Device: None (Room air) None (Room air) Weight: Height: --Short non sustained V.tach - 9 beats -- Recent acute left M2 2 occlusion[ 08/09/2022] status post IR thrombectomy with acute left basal ganglia infarct and chronic vertebral artery occlusion - On Domonique jeff, Atorvastatin and ASA -- Aphasia- both receptive and expressive -- Oropharyngeal dysphagia - on Tube feeding with PEG tube. Speech therapy on petrona jackson -- Seizure disorder - on Keppra 500 MG TID -- Urinary retention with neurogenic bladder -- Constipation/incontinence with neurogenic bowel -- Hypothyroidism -- Hyperlipidemia -- CAD S/P CABG X 5 [ 2009] -- CKD stage III - baseline creatinine 1.6 - 1.8 - currently at baseline 1.7 to day. -- Pulmonary nodules --History of RLE DVT on Anticoagulation with Apixaban --Insomnia with agitation now improving - Zoloft, Trazedone and Quetiapine --Oral candidiasis - on Nystatin Recommendations: -- Blood pressure currently stable but orthostatic while on current regimen wi Coreg 6.25 mg p.o. twice daily, doxazosin 1 mg p.o. daily and amlodipine 10 m g p.o. daily. --will recommend holding Doxazosin in light of orhtostaitc hypotension --repeat orthostatic blood pressure measurement on 09/07/22 -- Has had multiple strokes with background hypertension would refrain from taki ng him off any of the medications especially as his blood pressure has improved. If he becomes hypotensive and taking blood pressure medication off becomes a n ecessity would take doxazosin off first followed by amlodipine followed by coreg . --Keep K > 4 and Mg > 2 Discussed with primary team - Rosa Romero and Dr. Harkins from Rehab team Total Time Today was 35 minutes in the following activities: Preparing to see e patient, Obtaining and/or reviewing separately obtained history, Performing a medically appropriate examination and/or evaluation, Counseling and educating e patient/family/caregiver, Ordering medications, tests, or procedures, Referrin g and communication with other health nurse healthcare manager (when not separately re ported), Documenting clinical information in the electronic or other health [address], Independently interpreting results (not separately reported) and communicati ng results to the patient/family/caregiver, and Care coordination (not separatel y reported) Please direct initial questions to the primary service. General Medicine consults can be contacted via Voalte using [employer] Consults 1 or 2 First Call 24 hours a day Interim events: Blood pressure has remained stable overall but orthostatic hypot ension on bedside measurement on 09/05/22 Subjective (today): Sitting up in his wheelchair. Not interactive. Worked with PT OT and speech team. No other interval event reported Review of Systems: Review of systems was negative except as noted above. Vital Signs: Last Filed in 24 hours Vital Signs: 24 hour Range BP: 127/72 (09/06 2011) Temp: 37 C (98.6 F) (09/05 2008) Pulse: 84 (09/06 2011) Respirations: 18 PER MINUTE (09/05 2008) SpO2: 93 % (09/05 2008) O2 Device: None (Room air) (09/05 2008) BP: (99-128)/(37-72) Temp: [36.7 C (98 F)-37 C (98.6 F)] Pulse: [65-84] Respirations: [18 PER MINUTE] SpO2: [93 %-94 %] O2 Device: None (Room air) Physical Exam: General: Alert, cooperative, no distress, appears stated age not following com mands Head: Normocephalic, without obvious abnormality, atraumatic Eyes: Conjunctivae/corneas clesar. Throat: Lips, mucosa and tongue normal. Teeth and gums normal Neck: Supple, symmetrical, trachea midline, no adenopathy, thyroid: no enlargem ent/tenderness/nodules, no carotid bruit and no JVD Lungs: Clear to auscultation bilaterally Heart: Regular rate and rhythm, S1, S2 normal, no murmur, click rub or gallop Abdomen: Abdominal binder in place with PEG tube underneath. Soft, non-tender. Bowel sounds normal. No masses. No organomegaly. 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: non verbal and not able to interact verbally, not follow commands , able to squeeze hands Lab/Radiology/Other Diagnostic Tests: 24-hour labs: Results for orders placed or performed during the hospital encounter of 08/24/22 (from the past 24 hour(s)) CBC CELLULAR THERAPEUTICS Collection Time: 09/05/22 7:17 AM Result Value Ref Range White Blood Cells 8.1 4.5 - 11.0 K/UL RBC 4.77 4.4 - 5.5 M/UL Hemoglobin 14.3 13.5 - 16.5 GM/DL Hematocrit 43.4 40 - 50 % MCV 91.1 80 - 100 FL MCH 30.0 26 - 34 PG MCHC 32.9 32.0 - 36.0 G/DL RDW 14.5 11 - 15 % Platelet Count 216 150 - 400 K/UL MPV 9.9 7 - 11 FL COMPREHENSIVE METABOLIC PANEL Collection Time: 09/05/22 7:17 AM Result Value Ref Range Sodium 143 137 - 147 MMOL/L Potassium 3.8 3.5 - 5.1 MMOL/L Chloride 109 98 - 110 MMOL/L Glucose 136 (H) 70 - 100 MG/DL Blood Urea Nitrogen 37 (H) 7 - 25 MG/DL Creatinine 1.70 (H) 0.4 - 1.24 MG/DL Calcium 9.3 8.5 - 10.6 MG/DL Total Protein 6.0 6.0 - 8.0 G/DL Total Bilirubin 0.4 0.3 - 1.2 MG/DL Albumin 3.2 (L) 3.5 - 5.0 G/DL Alk Phosphatase 86 25 - 110 U/L AST (SGOT) 18 7 - 40 U/L CO2 24 21 - 30 MMOL/L ALT (SGPT) 17 7 - 56 U/L Anion Gap 10 3 - 12 eGFR 41 (L) >60 mL/min MAGNESIUM Collection Time: 09/05/22 7:17 AM Result Value Ref Range Magnesium 2.0 1.6 - 2.6 mg/dL PHOSPHORUS Collection Time: 09/05/22 7:17 AM Result Value Ref Range Phosphorus 2.6 2.0 - 4.5 MG/DL No pertinent radiology. Azael Addison MD ACE FIRER * Doe Fox RN - 09/06/2022 6:16 AM CST Acute Inpatient Rehabilitation Behavior Summary of Shift Name: Derek Castro Jr. : 1945 Age: 77 y.o. Admission Date: 08/24/2022 LOS: 13 days Date of Service: 09/06/2022 Reason for increased observation?saftey for pulling tubes and impulsivity One-on-one safety watch: yes Q15-30 minute safety watch:no Suicide precaution: no Telemonitoring:no Behavior outbursts during this shift? No Description and time(s) of event: N/A Agitation during this shift?No Description and time(s) of event: n/a Active suicide ideation during this shift? No Description and time(s) of event: n/a Poor safety awareness or impulsivity during this shift? Yes Description and time(s) of event: attempts to remove peg tube and lake, pt trie s to get out bed Noteworthy visitor interactions during this shift? N/a Sleep/rest patterns observed during this shift? Sleeps on and off at night Therapeutic interventions: reoreintation Additional Comments: ACE FIRER * Rosa Wheeler MD - 09/06/2022 5:29 AM CST Physical Medicine & Rehabilitation Progress Note Today's Date: 09/06/2022 Admission Date: 08/24/2022 LOS: 13 days Insurance: [employer] Principal Problem: Acute ischemic left MCA stroke (HCC) Active Problems: CAD (coronary artery disease) Stage 3b chronic kidney disease (HCC) Hyperlipidemia Primary hypertension Hypothyroidism Seizure disorder (HCC) History of multiple strokes Global aphasia Acute right hemiparesis (HCC) Impaired mobility and activities of daily living Risk for falls Assessment/Plan: Derek Castro Jr. is a 77 y.o. male admitted to [facility] on 08/24/2022 with the following issues: stroke Rehabilitation Plan Tentative discharge date: Rehabilitation: Patient will continue with comprehensive therapies including phy sical therapy, occupational therapy, speech & language pathology, specialized rehab nursing, neuropsychology and physiatry oversight. Goals: at ambulation level, household mobility, Stand by assistance, With caregi tara assistance, Progressing Recommended therapy after discharge: Home with Assistance, and, Home Health Sett ing PT recommended equipment: TBD OT recommended equipment: Too early to determine Daily Functional Update: Transfers Transfer: Assistive Device: Hand Hold Assist (09/05/2022 1:00 PM) Transfer: Sit to stand assist level: Minimum assistance (09/05/2022 1:00 PM) Transfer: Stand pivot assist level: Minimum assistance (09/05/2022 1:00 PM) No data recorded Gait/ Mobility Gait: Assistive Device: Hand Hold Assist (x2) (09/04/2022 8:45 AM) GAIT: Assist Level: Two person assistance (variable throughout gait bouts) (2022 8:45 AM) Gait Distance: 150 feet (x2) (09/05/2022 1:00 PM) No data recorded No data recorded Toileting Toileting Assist: Total Assist (09/02/2022 2:45 PM) No data recorded Toilet Transfer Assist: Minimum assistance (09/05/2022 8:00 AM) Dressing LE Dressing Assist: Moderate Assist (09/05/2022 8:00 AM) UE Dressing Assist: Minimal Assist (09/05/2022 8:00 AM) Current Medical Problems/Risks of Medical Complications/Management Acute Left M2 occlusions/p IRw/ aTICI3 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 Hx of multiple ischemic strokes(2019, R MCA 05/2022, L NILA 07/2022) Severe dysphagia and global aphasia, impaired cognition, impaired mobility with right hemiplegia, impaired ADLs >Will continue indefinitely on Eliquis 5mg BID and ASA 81mg daily per Neurology recommendations > 30 day cardiac event monitoror ILR at discharge and will maintain > PT/OT/DEPUTY HEAD to eval and treat > Sertraline as below, unable to utilize modafinil or amantadine secondary to PEG > Baclofen 5 mg qhs (start 09/05) H/o Seizures > Continue CHILD DEVELOPMENT ASSOCIATE TEACHER Keppra 500 mg BID > Low threshold for neurology consult versus increasing Keppra to 1000 mg twice daily secondary to concerns for breakthrough seizure on 08/31/2022 lasting less than 10 seconds without tonic-clonic movement Oropharyngeal Dysphagia - Repeat video swallow 08/20 did not go well thus PEG placed on 08/20 > PEG care, abdominal binder > On bolus feeds and water thr peg, NPO, ice chip protocol > monitor labs-CMP, mag/phos while on TF > consulted siebel crm developer > DEPUTY HEAD to work with patient on dysphagia. Agitation, restlessness Disturbed sleep wake cycle, insomnia Agitation continues to improve >Melatonin 5mg QHS, increase trazodone to 100 mg QHS, and seroquel 12.5mg at bedtime. PRN seroquel during day ONLY for agitation/aggression that is not redirectable. > Sleep hygiene > Redirection and reorientation > protect tubes and lines > Continue am SSRI (zoloft 50 mg) started 08/30 to improve daytime alertness/mood Neurogenic bladder/urinary retention : Lake replaced 08/22 and fter failed voiding trial > Cont doxazosin 1mg daily (unable to use Flomax due to [place]) > Will keep Lake in until agitation, aphasia and understanding improve some, as he was not tolerating bladder scans/timed voids/straight caths during last trial. Has a history of urinary retention does have a Urologist at home. If second voiding trial is not successful we will discharge home with Lake with follow-up with urology. Neurogenic bowel: constipation, incontinence > Continue senna. Bm + now > May need a set bowel time if incontinence continues. > Hold magnesium (09/01) HTN/ HLD CAD s/p CABG x5(2009) Hypotension - Echo 08/10 with EF 60%, no WMA or ventricle dysfunction > SBP goal:less than 160 >Cont amlodipine 10mg, statin, and ASA > Consult internal medicine, appreciate recommendations > No change to BP regimen > Repeat orthostatics 09/07 CKD stage 3 - BaselineCr~1.8-2 > Continue to monitor, avoid nephrotoxic meds Oral thrush - initiated course of nystatin 08/28; last day 09/11-then recheck > oral cares BID Hypothyroidism >Cont CHILD DEVELOPMENT ASSOCIATE TEACHER levothyroxine Rash - Dry, red macular rash noted to entire back >Cont Emollient cream Pulmonary nodules - Incidental finding with multiple subcentimeter pulmonary nodules, indeterminan t on initial examination. No dominant pulmonary mass > Follow-up CT chest in 3 months recommended to evaluate for stability Pain Management: pain seems well controlled, heat / ice PRN, topical medication and Tylenol PRN Skin: Encourage the patient to continue to inspect their skin and perform pressu re relief. BMI: Body mass index is 31.11 kg/m. Mental Health, high risk of depression with stroke and aphasia: consulted neuropsychology to provide support / counseling and monitor for depres miladys Sertraline as above DVT Prophylaxis: apixaban GI ppx: pepcid 20mg daily while on tube feeds. Subjective No acute events overnight. Patient is nonverbal. In conversation with RN Vicky, patient was overall calm throughout the night. He continues to fidget with his Lake catheter. Patient seen sitting upright in bed appearing comfortable, obse rver at side. Per observer, patient has been awake since 2am. When asked if he i s in any pain he makes movement towards his Lake catheter. Therapy notes review ed, and patient is progressing. Of note, he has progressed in LE dress from tota l to moderate assist. Lake catheter with 750 mL output over last 24 hours. Inco ntinent of bowel with last BM 09/05. Objective Vital Signs: Last Filed Vital Signs: 24 Gladis r Range BP: 127/72 (09/06 2011) Temp: 37 C (98.6 F) (09/05 2008) Pulse: 84 (09/06 2011) Respirations: 18 PER MINUTE (09/05 2008) SpO2: 93 % (09/05 2008) O2 Device: None (Room air) (09/05 2008) BP: (99-128)/(37-72) Temp: [36.7 C (98 F)-37 C (98.6 F)] Pulse: [65-84] Respirations: [18 PER MINUTE] SpO2: [93 %-94 %] O2 Device: None (Room air) Vitals: 08/24/22 1349 08/27/22 0421 09/03/22 0528 Weight: 92.8 kg (204 lb 9.4 oz) 96.7 kg (213 lb 3 oz) 90 kg (198 lb 6.6 oz) Intake/Output Summary: (Last 24 hours) Intake/Output Summary (Last 24 hours) at 09/06/2022 07 Last data filed at 09/06/2022 0613 Gross per 24 hour Intake 1415 ml Output 1175 ml Net 240 ml Last Bowel Movement Date: 09/05/22 Labs--reviewed No results found for this visit on 08/24/22 (from the past 24 hour(s)). Medications: Scheduled Meds:amLODIPine (NORVASC) tablet 10 mg, 10 mg, PEG Tube, QDAY apixaban (ELIQUIS) tablet 5 mg, 5 mg, SEE ADMIN INSTRUCTIONS, BID aspirin chewable tablet 81 mg, 81 mg, PEG Tube, QDAY atorvastatin (LIPITOR) tablet 80 mg, 80 mg, PEG Tube, QDAY baclofen (LIORESAL) tablet 5 mg, 5 mg, Oral, QHS carvediloL (COREG) tablet 6.25 mg, 6.25 mg, PEG Tube, BID Diet Enteral Feeding Bolus, , SEE ADMIN INSTRUCTIONS, 5XDAY (6,12,15,18,22) And Water Bolus, 180 mL, PEG Tube, 5XDAY (6,12,15,18,) [Held by Provider] docusate sodium (COLACE) oral solution 100 mg, 100 mg, PEG Tu be, BID [Held by Provider] doxazosin (CARDURA) tablet 1 mg, 1 mg, PEG Tube, QDAY famotidine (PEPCID) tablet 20 mg, 20 mg, PEG Tube, QDAY levETIRAcetam (KEPPRA) oral solution 500 mg, 500 mg, PEG Tube, BID levothyroxine (SYNTHROID) tablet 125 mcg, 125 mcg, PEG Tube, QDAY(07) magnesium oxide (MAGOX) tablet 400 mg, 400 mg, PEG Tube, BID melatonin tablet 5 mg, 5 mg, PEG Tube, QHS nystatin (MYCOSTATIN) oral suspension 100,000 Units, 100,000 Units, Oral, QID QUEtiapine (SEROquel) tablet 12.5 mg, 12.5 mg, PEG Tube, QHS [Held by Provider] senna (SENOKOT) oral syrup 17.6 mg, 10 mL, PEG Tube, QHS sertraline (ZOLOFT) tablet 50 mg, 50 mg, Feeding Tube, QDAY simethicone (MYLICON) chew tablet 80 mg, 80 mg, Per G Tube, TID traZODone (DESYREL) tablet 100 mg, 100 mg, PEG Tube, QHS Continuous Infusions: PRN and Respiratory Meds:acetaminophen Q4H PRN, bisacodyL QDAY PRN, emollient MO N, pancrelipase 20,880 Units/sodium bicarbonate 650 mg (KU CLOG DESTROYER) PRN ( Orchard Worker from Rx), QUEtiapine QDAY PRN, vitamin A & D PRN Physical Exam General: Alert, NAD HEENT: NCAT, EOMI, good eye contact Heart: Extremities well perfused Lungs: Normal work of breathing on room air, appropriate chest rise with inspira tion Abdomen: Soft. Abdominal binder in place covering peg, PEG without any issues. : Lake catheter in place, draining light yellow urine Extremities: No edema, Neuro: Alert, non verbal, understands basic simple one step commands intermitten tly. No clonus. Hood's negative bilaterally. - L elbow flexion MAS 1+/5 - L arm adduction MAS 1/5 - L wrist extension MAS 0/5 Psych: appropriate affect MSK: no atrophy Labs & Therapy Notes Reviewed Rosa Wheeler MD ACE FIRER Associated attestation - Esme Harkins MD - 09/06/2022 2:12 PM FURNACE FIRER ATTESTATION I personally performed the tineo portions of the E/M visit, discussed case with re sident and concur with resident documentation of history, physical exam, assessm ent, and treatment plan unless otherwise noted. Slept poorly last night. Working with DEPUTY HEAD this morning. Automatic tasks like hol ding the cup and feeding ice chips to self with spoon are ok, does not follow co mmands when asked to wipe mouth. When asked 'how is today going?', he said 'butter' and then perseverated on 'bu' . Expecting for him to get some spontaneous speech in the next few days. Intermittent hypotension with therapy-management per below Staff name: Esme Harkins MD Date of Service: 09/06/2022 * Louise Mcdonald PT - 09/05/2022 1:00 PM CST PHYSICAL THERAPY 09/05/22 1300 Type of Note Type of Note Daily Time Calculation Start Time 1300 Stop Time 1330 Time Calculation 30 $$ Gait / Mobility 2 units Subjective Subjective Patient in bed, finishing with bowel clean-up. Vitals* BP 111/62 Bed Mobility Bed Mobility: Supine to sit assist level Minimum assistance Bed Mobility: Supine to sit type of assist With head of bed elevated Bed Mobility: Sit to Supine Assist Level Stand by assistance Transfers Transfer: Assistive Device Hand Hold Assist Transfer: Sit to stand assist level Minimum assistance Transfer: Sit to stand type of assist Facilitation of weight shift Transfer: Stand to sit assist level Minimum assistance Transfer: Stand to sit type of assist For safety Transfer: Stand pivot assist level Minimum assistance Transfer: Stand pivot type of assist Facilitation of weight shift Daily Care Urinary Catheter / Perineal Care Indwelling urinary catheter care wipes Stool Occurrence 1 Stool Amount Large Stool Appearance Soft Stool Color [place] Gait Gait Distance 150 feet (x2) Gait Comment Toward end of gait cycle, patient with increased loss of balance an d crouching gait. Anticipate could be due to fatigue or hypotension. Patient bert ble to verbalize. Assessment Assessment Attempted to walk to laundry to start his dirty clothes, however laun dry occupied. Will start at later time. Patient resting comfortably back in bed post therapy. Plan Comments continue gait and other automatic activities, stairs, standing enduranc e/balance, dynamic balance as able, outcomes pending comprehension Louise Mcdonald PT, DPT ACE FIRER * Lady Downey MS,[facility]-DEPUTY HEAD - 09/05/2022 11:00 AM CST SPEECH-LANGUAGE PATHOLOGY 09/05/22 1100 Behavior Comments* Patient resting quietly upon DEPUTY HEAD arrival. Patient wakes to soft verbal and tactile stimuli. CO present at DEPUTY HEAD arrival and exit. Dysphagia Goals Therapy Activities PO trials Therapy Activity Comments Attempted to initiate po trials of thin liquids and ic e chips at this time. Patient noted to seal lips and turn head as DEPUTY HEAD initiated presentation. Attempted to allow Patient independence with holding cup and admin istering po trials, however, Patient did not engage. Motor Speech - Apraxia Goals Therapy Activities Automatic speech tasks Automatic Speech Tasks Singing Therapy Activity Comments Attempted to engage Patient in motor speech task to el icit verbal expression. DEPUTY HEAD played Patient preferred music aloud this date. Megan ent did not attempt to vocalize with music despite maximal encouragement this da te. Verbal Expression Goals Therapy Activities Nonverbal communication Therapy Activity Comments Patient demonstrated difficulty with alertness and eng agement throughout therapy session. DEPUTY HEAD asked Patient "Do you want me to leave y ou alone?" to which Patient nodded "yes." DEPUTY HEAD honored Patient functional use of head nod and discontinued session at that time. Assessment Patient demonstrated head nod to functionally communicate with therap ist this date. Will continue to address therapy goals. Plan Dysphagia: -- ice chips -- trials of thin liquids -- swallow exercises as able Language: -- establish form of communication -- yes/no accuracy -- 1-step commands -- receptive ID Lady Downey MS, CCC-DEPUTY HEAD ACE FIRER * Christiana Franco, CHRIS - 09/05/2022 10:00 AM CST OCCUPATIONAL THERAPY NOTE Name: Derek Castro Jr. : 1945 Age: 77 y.o. Admission Date: 08/24/2022 LOS: 12 days Date of Service: 09/05/2022 09/05/22 1000 Time Calculation Start Time 1000 Stop Time 1045 Time Calculation 45 $$ Therapeutic Activity 3 unit - 45 min Subjective Subjective Pt sitting edge of bed with nursing taking orthostatics upon arrival. Agreeable to OT session. Precautions Precautions Aspiration;Constant observation Cognitive Orientation Unable to Assess (Comment) Cognition Decrease attention/ concentration;Impulsive;Poor Safety Awareness Daily Care Urine Function Urinary device/ostomy present (See LDA) Transfers Transfer Comment Pt ambulates around unit with contact guard assist x2. Activity Therapeutic Activities Pt participates in some purposeful activities sorting med ication and matching Blink cards. Completes activity for about first 3-5 trials and then terminates activity. Makes facial expressions that indicate he is unint erested. Assessment Assessment Demonstrating improvement in command following and purposeful activit ies. Plan Plan Comments ADL training; toileting; purposeful tasks Type of Note Type of Note Daily Therapist: Christiana Franco OTR/L [id number] Date: 09/05/2022 ACE FIRER * Lady Downey MS,CCC-DEPUTY HEAD - 09/05/2022 9:00 AM CST SPEECH-LANGUAGE PATHOLOGY 09/05/22 0900 Behavior Comments* Patient seated upright in wheelchair upon DEPUTY HEAD arrival. CO present at S LP arrival and exit this date. Dysphagia Goals Therapy Activities PO trials PO Trials Ice chips;Thin liquids Therapy Activity Comments Oral care completed in an attempt to reduce potential aspiration of bacteria-laden oropharyngeal secretions prior to po trials. Patien t attempted to independently complete oral care this date. Patient resistant to use of oral suction to clear toothpaste from oral cavity. Following oral care, P atient consumed trials of ice chips and thin liquids. Patient independently able to guide spoon and cup to administer trials this date. Patient did require inte rmittent cues to take smaller bites of ice chips this date. Patient not responsi ve to verbal cues, however, was redirectable given tactile cues and DEPUTY HEAD removal of additional ice chips from spoon. Patient consumed ice chips x6 and thin liqui ds via cup x5. Throat clear appreciated x1 this date. Remainder of po trials con sumed free from overt s/s of distress. Recommend Patient remain NPO at this time . Assessment Recommend Patient remain NPO pending completion of further swallowing instrumentation. In light of quality of life, hydration, and to reduce orophary ngeal atrophy, patient may have ice chips (1-2 at a time) following oral care wi supervision when seated upright. Of note, Patient made 2 attempts to verbalize this date. Verbalizations unintell igible at this time. Plan Dysphagia: -- ice chips -- trials of thin liquids -- swallow exercises as able Language: -- establish form of communication -- yes/no accuracy -- 1-step commands -- receptive ID Lady Downey MS, CCC-DEPUTY HEAD ACE FIRER * Christiana Franco, CHRIS - 09/05/2022 8:00 AM CST OCCUPATIONAL THERAPY NOTE Name: Derek Castro Jr. : 1945 Age: 77 y.o. Admission Date: 08/24/2022 LOS: 12 days Date of Service: 09/05/2022 09/05/22 0800 Time Calculation Start Time 0800 Stop Time 0830 Time Calculation 30 $$ Phys ADL Skills 2 units Subjective Subjective Pt supine upon arrival. Agreeable to OT session. Upper Body Dressing UE Dressing Assist Minimal Assist Upper Dressing Position Sitting edge of bed Upper Dressing Comments assist for orientation Lower Body Dressing LE Dressing Assist Moderate Assist Lower Dressing Comments assist for threading BLE through pants and socks. Toileting Toileting-Adjusting clothing BEFORE using toiet, commode, bedpan or urinal Cheng t Yes Toileting-Adjust clothing AFTER using toilet, commode, bedpan or urinal Assist Y es Toileting Comments Attempted toileting for pt to have a BM but unsuccessful. Toileting Transfer Toilet Transfer Assist Minimum assistance Transfers Transfer: Assistive Device Hand Hold Assist Transfer Comment Pt ambulates around unit with contact guard assist x2. Continue s to demonstrate some R inattention and drift but improved gait overall. Communication/Cognition Cognition Comment Pt with several appropriate facial expressions and vocalizatio ns. Assessment Assessment Pt progressing towards goals. Plan Plan Comments command following; progress transfers; repetitive ADLs Type of Note Type of Note Daily Therapist: VIN Mason/Ludivina [id number] Date: 09/05/2022 ACE FIRER * Azael Addison MD - 09/05/2022 7:01 AM CST General Medicine Consult Progress Note Name: Derek Castro Jr. : 1945 Age: 77 y.o. Admission Date: 08/24/2022 LOS: 12 days Date of Service: 09/05/2022 Reason for Consult: Hypotension with background Hypertension Patient with L MCA stroke, CAD s/p CABG. Had 9 beats of VTACh on event monitor. Has been hypertensive for several days but recently developed hypotension. No s/ s of infection. Please assist with management of anti-hypertensives. Consult type: Co-Management w/Signed Orders A 77-year-old male with history of hyperlipidemia, hypertension, coronary diseas e status post CABG in 2009, hypothyroidism, right lower extremity DVT, CKD stage III seizure disorder and multiple strokes who had recent acute ischemic left MCA stroke admitted to rehab on 08/24/2022 following transfer from acute care where he was admitted between 08/09/2022 until 08/24/2022. Internal medicine now consul earline for hypertension --Hypotension[resolved] with background hypertension -has been on amlodipine 10 mg p.o. daily, Coreg 6.25 mg p.o. twice daily, doxazosin 1 mg p.o. daily. Do no t see any new medication changes. Heart rate was in the 60s and 70s - latest BP stable Vitals: 09/05/22 0837 09/05/22 0956 09/05/22 0959 09/05/22 1002 BP: 122/60 113/58 102/64 (!) 99/37 BP Source: Arm, Left Upper Arm, Left Upper Arm, Left Upper Pulse: 74 65 Temp: 36.7 C (98 F) SpO2: 94% O2 Device: None (Room air) Weight: Height: --Short non sustained V.tach - 9 beats -- Recent acute left M2 2 occlusion[ 08/09/2022] status post IR thrombectomy with acute left basal ganglia infarct and chronic vertebral artery occlusion - On Domonique jeff, Atorvastatin and ASA -- Aphasia- both receptive and expressive -- Oropharyngeal dysphagia - on Tube feeding with PEG tube. Speech therapy on petrona jackson -- Seizure disorder - on Keppra 500 MG TID -- Urinary retention with neurogenic bladder -- Constipation/incontinence with neurogenic bowel -- Hypothyroidism -- Hyperlipidemia -- CAD S/P CABG X 5 [ 2009] -- CKD stage III - baseline creatinine 1.6 - 1.8 - currently at baseline -- Pulmonary nodules --History of RLE DVT on Anticoagulation with Apixaban --Insomnia with agitation now improving - Zoloft, Trazedone and Quetiapine --Oral candidiasis - on Nystatin Recommendations: -- Blood pressure currently stable hence continue on current regimen with Coreg 6.25 mg p.o. twice daily, doxazosin 1 mg p.o. daily and amlodipine 10 mg p.o. d aily. --Get orthostatic blood pressure measurement --If orthostatic potential noted with first DC doxazosin -- Has had multiple strokes with background hypertension would refrain from taki ng him off any of the medications especially as his blood pressure has improved. If he becomes hypotensive and taking blood pressure medication off becomes a n ecessity would take doxazosin off first followed by amlodipine followed by coreg . --Keep K > 4 and Mg > 2 Discussed with primary team - Rosa Romero and Dr. Harkins from Rehab team Total Time Today was 35 minutes in the following activities: Preparing to see th e patient, Obtaining and/or reviewing separately obtained history, Performing a medically appropriate examination and/or evaluation, Counseling and educating th e patient/family/caregiver, Ordering medications, tests, or procedures, Referrin g and communication with other health nurse healthcare manager (when not separately re ported), Documenting clinical information in the electronic or other health [address], Independently interpreting results (not separately reported) and communicati ng results to the patient/family/caregiver, and Care coordination (not separatel y reported) Please direct initial questions to the primary service. General Medicine consults can be contacted via Voalte using [employer] Consults 1 or 2 First Call 24 hours a day Interim events: Blood pressure has remained stable overall Subjective (today): Working with rehabilitation team and with taking some ice wh ile sitting on a wheelchair. Not interactive and appears comfortable. No other interval event reported Review of Systems: Review of systems was negative except as noted above. Vital Signs: Last Filed in 24 hours Vital Signs: 24 hour Range BP: 122/70 (09/05 404) Temp: 36.3 C (97.3 F) (09/05 404) Pulse: 61 (09/05 404) Respirations: 18 PER MINUTE (09/05 404) SpO2: 94 % (09/05 404) O2 Device: None (Room air) (09/05 404) BP: (78-138)/(52-75) Temp: [36.3 C (97.3 F)-36.9 C (98.4 F)] Pulse: [61-72] Respirations: [18 PER MINUTE-20 PER MINUTE] SpO2: [94 %] O2 Device: None (Room air) Physical Exam: General: Alert, cooperative, no distress, appears stated age not following com mands Head: Normocephalic, without obvious abnormality, atraumatic Eyes: Conjunctivae/corneas clesar. Throat: Lips, mucosa and tongue normal. Teeth and gums normal Neck: Supple, symmetrical, trachea midline, no adenopathy, thyroid: no enlargem ent/tenderness/nodules, no carotid bruit and no JVD Lungs: Clear to auscultation bilaterally Heart: Regular rate and rhythm, S1, S2 normal, no murmur, click rub or gallop Abdomen: Abdominal binder in place with PEG tube underneath. Soft, non-tender. Bowel sounds normal. No masses. No organomegaly. 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: non verbal and not able to interact verbally, not follow commands , able to squeeze hands Lab/Radiology/Other Diagnostic Tests: 24-hour labs: Results for orders placed or performed during the hospital encounter of 08/24/22 (from the past 24 hour(s)) CBC CELLULAR THERAPEUTICS Collection Time: 09/05/22 7:17 AM Result Value Ref Range White Blood Cells 8.1 4.5 - 11.0 K/UL RBC 4.77 4.4 - 5.5 M/UL Hemoglobin 14.3 13.5 - 16.5 GM/DL Hematocrit 43.4 40 - 50 % MCV 91.1 80 - 100 FL MCH 30.0 26 - 34 PG MCHC 32.9 32.0 - 36.0 G/DL RDW 14.5 11 - 15 % Platelet Count 216 150 - 400 K/UL MPV 9.9 7 - 11 FL COMPREHENSIVE METABOLIC PANEL Collection Time: 09/05/22 7:17 AM Result Value Ref Range Sodium 143 137 - 147 MMOL/L Potassium 3.8 3.5 - 5.1 MMOL/L Chloride 109 98 - 110 MMOL/L Glucose 136 (H) 70 - 100 MG/DL Blood Urea Nitrogen 37 (H) 7 - 25 MG/DL Creatinine 1.70 (H) 0.4 - 1.24 MG/DL Calcium 9.3 8.5 - 10.6 MG/DL Total Protein 6.0 6.0 - 8.0 G/DL Total Bilirubin 0.4 0.3 - 1.2 MG/DL Albumin 3.2 (L) 3.5 - 5.0 G/DL Alk Phosphatase 86 25 - 110 U/L AST (SGOT) 18 7 - 40 U/L CO2 24 21 - 30 MMOL/L ALT (SGPT) 17 7 - 56 U/L Anion Gap 10 3 - 12 eGFR 41 (L) >60 mL/min MAGNESIUM Collection Time: 09/05/22 7:17 AM Result Value Ref Range Magnesium 2.0 1.6 - 2.6 mg/dL PHOSPHORUS Collection Time: 09/05/22 7:17 AM Result Value Ref Range Phosphorus 2.6 2.0 - 4.5 MG/DL No pertinent radiology. Azael Addison MD ACE FIRER * Rosa Wheeler MD - 09/05/2022 6:54 AM CST Physical Medicine & Rehabilitation Progress Note Today's Date: 09/05/2022 Admission Date: 08/24/2022 LOS: 12 days Insurance: [employer] Principal Problem: Acute ischemic left MCA stroke (HCC) Active Problems: CAD (coronary artery disease) Stage 3b chronic kidney disease (HCC) Hyperlipidemia Primary hypertension Hypothyroidism Seizure disorder (HCC) History of multiple strokes Global aphasia Acute right hemiparesis (HCC) Impaired mobility and activities of daily living Risk for falls Assessment/Plan: Derek Castro is a 77 y.o. male admitted to [facility] on 08/24/2022 with the following issues: stroke Rehabilitation Plan Tentative discharge date: Rehabilitation: Patient will continue with comprehensive therapies including phy sical therapy, occupational therapy, speech & language pathology, specialized rehab nursing, neuropsychology and physiatry oversight. Goals: at ambulation level, household mobility, Stand by assistance, With caregi tara assistance, Progressing Recommended therapy after discharge: Home with Assistance, and, Home Health Sett ing PT recommended equipment: TBD OT recommended equipment: Too early to determine Daily Functional Update: Transfers Transfer: Assistive Device: Hand Hold Assist (09/04/2022 8:45 AM) Transfer: Sit to stand assist level: Minimum assistance (09/04/2022 8:45 AM) Transfer: Stand pivot assist level: Minimum assistance (09/04/2022 8:45 AM) No data recorded Gait/ Mobility Gait: Assistive Device: Hand Hold Assist (x2) (09/04/2022 8:45 AM) GAIT: Assist Level: Two person assistance (variable throughout gait bouts) (2022 8:45 AM) Gait Distance: 350 feet (+ multiple shorter distances) (09/04/2022 8:45 AM) No data recorded No data recorded Toileting Toileting Assist: Total Assist (09/02/2022 2:45 PM) No data recorded Toilet Transfer Assist: Moderate assistance; Minimum assistance; WIth two person (09/03/2022 2:00 PM) Dressing LE Dressing Assist: Total Assist (09/04/2022 1:30 PM) UE Dressing Assist: Minimal Assist (09/01/2022 10:00 AM) Current Medical Problems/Risks of Medical Complications/Management Acute Left M2 occlusions/p IRw/ aTICI3 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 Hx of multiple ischemic strokes(2019, R MCA 05/2022, L NILA 07/2022) Severe dysphagia and global aphasia, impaired cognition, impaired mobility with right hemiplegia, impaired ADLs >Will continue indefinitely on Eliquis 5mg BID and ASA 81mg daily per Neurology recommendations > 30 day cardiac event monitoror ILR at discharge and will maintain > PT/OT/DEPUTY HEAD to eval and treat > Sertraline as below, unable to utilize modafinil or amantadine secondary to PEG > Baclofen 5 mg qhs (start 09/05) H/o Seizures > Continue CHILD DEVELOPMENT ASSOCIATE TEACHER Keppra 500 mg BID > Low threshold for neurology consult versus increasing Keppra to 1000 mg twice daily secondary to concerns for breakthrough seizure on 08/31/2022 lasting less than 10 seconds without tonic-clonic movement Oropharyngeal Dysphagia - Repeat video swallow 08/20 did not go well thus PEG placed on 08/20 > PEG care, abdominal binder > On bolus feeds and water thr peg, NPO, ice chip protocol > monitor labs-CMP, mag/phos while on TF > consulted siebel crm developer > DEPUTY HEAD to work with patient on dysphagia. Agitation, restlessness Disturbed sleep wake cycle, insomnia Agitation continues to improve >Melatonin 5mg QHS, trazodone 75mg QHS and seroquel 12.5mg at bedtime(continue for now). Prn seroquel during day ONLY for agitation/aggression that is not redi rectable. > Sleep hygiene > Redirection and reorientation > protect tubes and lines > Continue am SSRI (zoloft 50 mg) started 08/30 to improve daytime alertness/mood Neurogenic bladder/urinary retention : Lake replaced 08/22 and fter failed voiding trial > Cont doxazosin 1mg daily (unable to use Flomax due to [place]) > Will keep Lake in until agitation, aphasia and understanding improve some, as he was not tolerating bladder scans/timed voids/straight caths during last trial. Has a history of urinary retention does have a Urologist at home. If second voiding trial is not successful we will discharge home with Lake with follow-up with urology. Neurogenic bowel: constipation, incontinence > Continue senna. Bm + now > May need a set bowel time if incontinence continues. > Hold magnesium (09/01) HTN/ HLD CAD s/p CABG x5(2009) Hypotension - Echo 08/10 with EF 60%, no WMA or ventricle dysfunction > SBP goal:less than 160 >Cont amlodipine 10mg, statin, and ASA > Consult internal medicine, appreciate recommendations > No change to BP regimen CKD stage 3 - BaselineCr~1.8-2 > Continue to monitor, avoid nephrotoxic meds Oral thrush - initiated course of nystatin 08/28; last day 09/11-then recheck > oral cares BID Hypothyroidism >Cont CHILD DEVELOPMENT ASSOCIATE TEACHER levothyroxine Rash - Dry, red macular rash noted to entire back >Cont Emollient cream Pulmonary nodules - Incidental finding with multiple subcentimeter pulmonary nodules, indeterminan t on initial examination. No dominant pulmonary mass > Follow-up CT chest in 3 months recommended to evaluate for stability Pain Management: pain seems well controlled, heat / ice PRN, topical medication and Tylenol PRN Skin: Encourage the patient to continue to inspect their skin and perform pressu re relief. BMI: Body mass index is 31.11 kg/m. Mental Health, high risk of depression with stroke and aphasia: consulted neuropsychology to provide support / counseling and monitor for depres miladys Sertraline as above DVT Prophylaxis: apixaban GI ppx: pepcid 20mg daily while on tube feeds. Subjective No acute events overnight. Patient seen sitting upright in wheelchair, DEPUTY HEAD Javan ortiz and observer at side. Patient is nonverbal. Per observer, patient was [place] agitated overnight and pulling on Lake catheter. On exam, patient had vi sible discomfort with manipulation of left upper extremity. Therapy notes review ed, and patient is progressing. Lake catheter with 900 mL output over last 24 h ours. Incontinent of bowel with last BM 09/04. Objective Vital Signs: Last Filed Vital Signs: 24 Gladis r Range BP: 99/37 (09/05 1001) Temp: 36.7 C (98 F) (09/06 955) Pulse: 65 (09/06 955) Respirations: 18 PER MINUTE (09/06 955) SpO2: 94 % (09/06 955) O2 Device: None (Room air) (09/06 955) BP: (99-138)/(37-73) Temp: [36.3 C (97.3 F)-36.9 C (98.4 F)] Pulse: [61-74] Respirations: [18 PER MINUTE-20 PER MINUTE] SpO2: [94 %] O2 Device: None (Room air) Vitals: 08/24/22 1349 08/27/22 0421 09/03/22 0528 Weight: 92.8 kg (204 lb 9.4 oz) 96.7 kg (213 lb 3 oz) 90 kg (198 lb 6.6 oz) Intake/Output Summary: (Last 24 hours) Intake/Output Summary (Last 24 hours) at 09/05/2022 0654 Last data filed at 09/05/2022 0620 Gross per 24 hour Intake 1015 ml Output 900 ml Net 115 ml Last Bowel Movement Date: 09/04/22 Labs--reviewed Results for orders placed or performed during the hospital encounter of 08/24/22 (from the past 24 hour(s)) CBC CELLULAR THERAPEUTICS Collection Time: 09/05/22 7:17 AM # # Low-High White Blood Cells 8.1 4.5 - 11.0 K/UL RBC 4.77 4.4 - 5.5 M/UL Hemoglobin 14.3 13.5 - 16.5 GM/DL Hematocrit 43.4 40 - 50 % MCV 91.1 80 - 100 FL MCH 30.0 26 - 34 PG MCHC 32.9 32.0 - 36.0 G/DL RDW 14.5 11 - 15 % Platelet Count 216 150 - 400 K/UL MPV 9.9 7 - 11 FL COMPREHENSIVE METABOLIC PANEL Collection Time: 09/05/22 7:17 AM # # Low-High Sodium 143 137 - 147 MMOL/L Potassium 3.8 3.5 - 5.1 MMOL/L Chloride 109 98 - 110 MMOL/L Glucose 136 (H) 70 - 100 MG/DL Blood Urea Nitrogen 37 (H) 7 - 25 MG/DL Creatinine 1.70 (H) 0.4 - 1.24 MG/DL Calcium 9.3 8.5 - 10.6 MG/DL Total Protein 6.0 6.0 - 8.0 G/DL Total Bilirubin 0.4 0.3 - 1.2 MG/DL Albumin 3.2 (L) 3.5 - 5.0 G/DL Alk Phosphatase 86 25 - 110 U/L AST (SGOT) 18 7 - 40 U/L CO2 24 21 - 30 MMOL/L ALT (SGPT) 17 7 - 56 U/L Anion Gap 10 3 - 12 eGFR 41 (L) >60 mL/min MAGNESIUM Collection Time: 09/05/22 7:17 AM # # Low-High Magnesium 2.0 1.6 - 2.6 mg/dL PHOSPHORUS Collection Time: 09/05/22 7:17 AM # # Low-High Phosphorus 2.6 2.0 - 4.5 MG/DL Medications: Scheduled Meds:amLODIPine (NORVASC) tablet 10 mg, 10 mg, PEG Tube, QDAY apixaban (ELIQUIS) tablet 5 mg, 5 mg, SEE ADMIN INSTRUCTIONS, BID aspirin chewable tablet 81 mg, 81 mg, PEG Tube, QDAY atorvastatin (LIPITOR) tablet 80 mg, 80 mg, PEG Tube, QDAY baclofen (LIORESAL) tablet 5 mg, 5 mg, Oral, QHS carvediloL (COREG) tablet 6.25 mg, 6.25 mg, PEG Tube, BID Diet Enteral Feeding Bolus, , SEE ADMIN INSTRUCTIONS, 5XDAY (6,12,15,18,22) And Water Bolus, 180 mL, PEG Tube, 5XDAY (6,12,15,18,22) [Held by Provider] docusate sodium (COLACE) oral solution 100 mg, 100 mg, PEG Tu be, BID doxazosin (CARDURA) tablet 1 mg, 1 mg, PEG Tube, QDAY famotidine (PEPCID) tablet 20 mg, 20 mg, PEG Tube, QDAY levETIRAcetam (KEPPRA) oral solution 500 mg, 500 mg, PEG Tube, BID levothyroxine (SYNTHROID) tablet 125 mcg, 125 mcg, PEG Tube, QDAY(07) magnesium oxide (MAGOX) tablet 400 mg, 400 mg, PEG Tube, BID melatonin tablet 5 mg, 5 mg, PEG Tube, QHS nystatin (MYCOSTATIN) oral suspension 100,000 Units, 100,000 Units, Oral, QID QUEtiapine (SEROquel) tablet 12.5 mg, 12.5 mg, PEG Tube, QHS [Held by Provider] senna (SENOKOT) oral syrup 17.6 mg, 10 mL, PEG Tube, QHS sertraline (ZOLOFT) tablet 50 mg, 50 mg, Feeding Tube, QDAY traZODone (DESYREL) tablet 75 mg, 75 mg, PEG Tube, QHS Continuous Infusions: PRN and Respiratory Meds:acetaminophen Q4H PRN, bisacodyL QDAY PRN, emollient MO N, pancrelipase 20,880 Units/sodium bicarbonate 650 mg (KU CLOG DESTROYER) PRN ( Orchard Worker from Rx), QUEtiapine QDAY PRN Physical Exam General: Alert but tired, NAD HEENT: NCAT, EOMI, some eye contact Heart: Extremities well perfused Lungs: Normal work of breathing on room air, appropriate chest rise with inspira tion Abdomen: Soft. Abdominal binder in place covering peg, PEG without any issues. : Lake catheter in place, draining light yellow urine Extremities: No edema, Neuro: Alert, non verbal, understands basic simple one step commands intermitten tly. No clonus. Hood's negative bilaterally. - L elbow flexion MAS 1+/5 - L arm adduction MAS 1/5 - L wrist extension MAS 0/5 Psych: appropriate affect MSK: no atrophy Labs & Therapy Notes Reviewed Rosa Wheeler MD ACE FIRER Associated attestation - Esme Harkins MD - 09/05/2022 11:48 AM FURNACE FIRER ATTESTATION I personally performed the tineo portions of the E/M visit, discussed case with re sident and concur with resident documentation of history, physical exam, assessm ent, and treatment plan unless otherwise noted. Working with DEPUTY HEAD on swallowing. Doing well with ice chips with no overt signs of coughing. Hopefully if he can follow directions well, we can consider a formal swallow study next week. Left UL MAS 1-2/4, possible some discomfort-winces with ROM- trial small dose of baclofen at bedtime. Can titrate up as needed. Appreciate recs from IM. Will monitor for hypotension in therapy. Discussed with PT, seems to be less of orthostatic when he stands, but more so after 5-10 min of gait when BP gets low. Staff name: Esme Harkins MD Date of Service: 09/05/2022 * Doe Fox RN - 09/05/2022 5:40 AM CST Acute Inpatient Rehabilitation Behavior Summary of Shift Name: Derek Castro Jr. : 1945 Age: 77 y.o. Admission Date: 08/24/2022 LOS: 12 days Date of Service: 09/05/2022 Reason for increased observation?saftey for pulling tubes and impulsivity One-on-one safety watch: yes Q15-30 minute safety watch: no Suicide precaution: no Telemonitoring: no Behavior outbursts during this shift? no Description and time(s) of event: n/a Agitation during this shift? no Description and time(s) of event: n/a Active suicide ideation during this shift? no Description and time(s) of event: n/a Poor safety awareness or impulsivity during this shift? yes Description and time(s) of event: attempts to remove peg tube and lake Noteworthy visitor interactions during this shift? n/a Sleep/rest patterns observed during this shift? Therapeutic interventions: reorientation Additional Comments: ACE FIRER * Christiana Franco, OT - 09/04/2022 1:30 PM CST OCCUPATIONAL THERAPY NOTE Name: Derek Castro Jr. : 1945 Age: 77 y.o. Admission Date: 08/24/2022 LOS: 11 days Date of Service: 09/04/2022 09/04/22 1330 Time Calculation Start Time 1330 Stop Time 1430 Time Calculation 60 Subjective Subjective Pt upright in chair upon arrival. Agreeable to OT session. Bathing Bath/Shower Soap and water shower/bath Bathing - Chest Assist Yes Bathing - Left Arm Assist Yes Bathing - Right Arm Assist Yes Bathing - Abdomen Assist Yes Bathing - Perineal Area Assist Yes Bathing - Buttocks Assist Yes Bathing - Left Upper Leg Assist Yes Bathing - Right Upper Leg Assist Yes Bathing - Left Lower Leg Including Foot Assist Yes Bathing - Right Lower Leg Including Foot Assist Yes Bathing Assist Shower;Total Assist Bathing Comments Pt stands and sits in shower. holds shower head and rinses grab bars and shower wall while OT washes body. Noted to have increased drainage from PEG site. Lower Body Dressing LE Dressing Assist Total Assist Lower Dressing Comments pt attempts to assist in LE dressing however increased a ssist d/t lake management. Toileting Toileting Comments Pt with increased bowel sounds and gas during session. Attemp earline to toilet but no success. Pt pulls toilet paper out to wipe. Pt also noted t o develop blood in urine during session. RN notified and in room to change lake anchor at end of session. Toileting Transfer Toilet Transfer Comments Pt initially faces toilet and pulls on BSC armrests. Pu lled commode off toilet and pt then sits on toilet. Removed BSC from room. Tub/Shower Transfer Tub/Shower Comments Pt ambulates to shower with minimal assist. Second person pr esent for safety. Communication/Cognition Cognition Comment Improved communication through facial expression and grunting today. Does not use yes/no board. Assessment Assessment Pt progressing in functional tasks with assist. Progressing towards g oals. Plan Plan Comments command following; progress transfers; repetitive ADLs Type of Note Type of Note Daily Therapist: Christiana Franco, CHRISR/L [id number] Date: 09/04/2022 ACE FIRER * Lady Downey MS,CCC-DEPUTY HEAD - 09/04/2022 1:00 PM CST SPEECH-LANGUAGE PATHOLOGY 09/04/22 1300 Behavior Comments* Patient seated upright in wheelchair upon DEPUTY HEAD arrival. CO present upon DEPUTY HEAD arrival and exit. Dysphagia Goals Therapy Activities PO trials PO Trials Ice chips Therapy Activity Comments Patient consumed ice chips x6 throughout therapy sessi on this date. Throat clear appreciated x1 following trials. No other overt s/s o f distress appreciated with intake this date. Motor Speech - Apraxia Goals Therapy Activities Imitative task Imitative Task (Isolated Phonemes) Therapy Activity Comments Attempted to initiate motor speech task via imitation of isolated phonemes this date. DEPUTY HEAD provided visual, verbal, and tactile cues. P atient made no attempt at imitation this date. Verbal Expression Goals Therapy Activities Nonverbal communication;Confrontation naming Nonverbal Communication Communication board Confrontation Naming Written word Therapy Activity Comments DEPUTY HEAD presented pictures of common items in attempt to e licit verbal expression. Patient provided with pictures of common 1 syllable obj ects. DEPUTY HEAD also provided verbal model, written model, and verbal cues. Patient, o nce again, made no attempt to engage this date. DEPUTY HEAD also attempted to engage Patient in use of yes/no communication board. Patie nt noted to look at communication board for extended period of time, however, di d not make functional attempts at use given personal/ concrete yes/no questions. Patient was noted to smile x1 in response to DEPUTY HEAD comment about Patient preferenc e of [employer]. Suspect Patient able to understand more than he is able to express at this time. Assessment Patient made no attempt to verbalize this date. Will continue to addr ess. Plan Dysphagia: -- ice chips -- trials of thin liquids -- swallow exercises as able Language: -- establish form of communication -- yes/no accuracy -- 1-step commands -- receptive ID Lady Downey MS, CCC-DEPUTY HEAD ACE FIRER * Hortencia Chatterjee OT - 09/04/2022 11:30 AM CST OCCUPATIONAL THERAPY 09/04/22 1130 Time Calculation Start Time 1130 Stop Time 1145 Time Calculation 15 $$ Therapeutic Activity 1 unit - 15 min Subjective Subjective Patient seated in wheelchair upon OT arrival. Appears agreeable to OT treatment session. Precautions Precautions Aspiration;Constant observation Comments aphasia, heart monitor phone needs to stay with pt during therapies; PE G Comments abdominal binder Grooming Grooming Comments When presented to sink after toileting task, patient automatic ally turns on water and attempts to gain soap. Though no soap came from dispense r, he continued to wash his hands and turn off the water. When therapist placed soap in hand afterwards, he volitionally turned on the water and washed his hand s a second time. Toileting Toileting-Adjusting clothing BEFORE using toilet, commode, bedpan or urinal Assi st Yes Toileting-Adjust clothing AFTER using toilet, commode, bedpan or urinal Assist Y es Toileting Comments Assist x2 for safety with ambulation to bathroom. Requires in creased assist for turning prior to sitting, but once seated on commode, patient begins reaching for toilet paper. He stands then sits 2-3 times during toileting task and fidgets with various items within reach. Appropriately wipes posterior prior to standing. Requires assist to fully pull pants up prior to mobilizing. Assessment Assessment Progressing towards goals. Plan Plan Comments command following; progress transfers; repetitive ADLs Type of Note Type of Note Daily LANDY Thakkar/Ludivina, CBIS Aimee Nam, PhD - 09/04/2022 10:36 AM CST Neurorehabilitation Psychology [id number] Pt was seen for auditory comprehension screening and follow-up with no family or significant others present. CO was present during today's encounter. Pt was in a wheelchair upon the provider's arrival. Pt was alert. No vocalizatio n noted. The provider mainly communicated with pt via providing written multiple choices for pt to point to to indicate his responses (e.g. pointing to yes/no). Pt was unable to follow simple one-step commands consistently (e.g., thumb up a nd down and pointing to colored pen). When provided written multiple choices, pt did not point to his name (pointed to the name "Ron"), did not point to the ye ar that we are in (pointed to 2019), and did not point to the month that we are in (pointed to January). Eye contact was variable, and non-verbal behaviors were variable. It appeared that pt was trying to communicate his needs with the provi liane and CO at times during today's encounter. When the provider moved the table close to pt, pt grabbed his phone. Psychomotor agitation and restlessness were n oted at times (e.g. using the marker to tap his phone). Pt appeared to experienc e heavy breathing and appeared frustrated at times. When provided written multiple choices with pictures and asked about his mood, p t initially indicated his mood by tapping/pointing to the word "angry" and later pointed to the smile face. At the end of the encounter, it appeared that pt was trying to communicate his needs. When CO asked pt whether pt would like to have a bowel movement, pt pointed to the word "Yes". Thus, the session was discontin ued. Per CO, no verbalization noted, and that pt was unable to follow simple com mands consistently. The provider introduced herself and the neurorehabilitation psychology services. The provider normalized pt's experiences. Pts progress, utilization of coping skills, and goals for rehab therapies were supported. Will continue to follow and assess cognition, mood, pain management, and coping. Pt was informed that th is insurance writer is under supervision by Dr. Aimee Tovar. Diagnosis: R47.01 Aphasia; I63.512 Acute ischemic stroke; r/o adjustment disorde r with mixed depressed and anxious mood; r/o cognitive impairment Recommendations: 1. Due to pt's aphasia and time constraints, provider was unable to administer a uditory comprehension screening, anxiety, depression, or cognitive screens. Will return to administer when pt is better able understand and communicate. 2. Pt may benefit from psychoeducation about relaxation strategies. Due to pt's aphasia, the provider will attempt to return to discuss the information with pt in multiple visits if time permits prior to pt's discharge. 3. Pt appeared to experience difficulties in indicating his needs and understand ing simple and/or complex information. Simple, succinct words/phrases and asking simple yes/no questions are recommended. Lisa Stanford Psy.D. Neurorehabilitation Psychology Postdoctoral Fellow [employer] ATTESTATION: I discussed this session and pt's care with the fellow and agree with her note and recs as amended (in blue) above. We will continue to follow p rn until [facility] d/c. Peggy Tovar, PhD, ABPP ACE FIRER * Lady Downey, MS,[facility]-DEPUTY HEAD - 09/04/2022 10:00 AM CST SPEECH-LANGUAGE PATHOLOGY 09/04/22 1000 Behavior Comments* Patient seated upright in wheelchair upon DEPUTY HEAD arrival. CO present at S LP arrival and exit. Dysphagia Goals Therapy Activities PO trials PO Trials Ice chips;Thin liquids Therapy Activity Comments Per CO, oral care completed just prior to DEPUTY HEAD arrival. DEPUTY HEAD presented Patient with cup of ice chips and thin liquids. Initially, DEPUTY HEAD pr esented trials of ice chips x2 and thin liquids via spoon x3. However, as sessi on progressed, Patient independently utilized spoon to consume 4 ice chips. Megan ent then noted to give spoon to DEPUTY HEAD and independently initiated trials of thin l iquids via cup sip. Patient consumed approximately 6 trials of thin liquids via cup this date. Throat clear response appreciated following 2 trials of ice/thin liquids. No other overt s/s of distress noted with po trials this date. Recommen d Patient remain NPO pending completion of further swallowing instrumentation. Verbal Expression Goals Therapy Activities Nonverbal communication Nonverbal Communication Gestures;Communication board Therapy Activity Comments Attempted to initiate nonverbal communication with Elvia deleon this date. DEPUTY HEAD asked questions in relation to po trials (i.e. are you done? do you want more ice?). DEPUTY HEAD attempted to prompt use of gestures (thumbs up.down) and yes/no communication board this date. Patient made no attempt to functiona lly utilize gestures/communication board this date. However, Patient was noted t o imitate use of thumbs up x2 given model and verbal cues. Assessment Patient demonstrated decrease in overt s/s of distress with po trials as compared with previous encounters. However, cannot rule out silent aspiration by clinical evaluation alone. Recommend Patient remain NPO at this time. In li ght of quality of life, hydration, and to reduce oropharyngeal atrophy, patient may have ice chips (1-2 at a time) following oral care with supervision when sea earline upright. Plan Dysphagia: -- ice chips -- trials of thin liquids -- swallow exercises as able Language: -- establish form of communication -- yes/no accuracy -- 1-step commands -- receptive ID Lady Downey, , CCC-DEPUTY HEAD ACE FIRER * Louise Mcdonald, PT - 09/04/2022 8:45 AM CST PHYSICAL THERAPY 09/04/22 0845 Type of Note Type of Note Daily Time Calculation Start Time 0845 Stop Time 0930 Time Calculation 45 Missed Minutes 15 Reasons for Missed Minutes (scheduling) $$ Professional Contact 1 unit (conference) $$ Gait / Mobility 3 units Subjective Subjective Patient in bed, initiated out of bed with command. Attempting verbali zations throughout session. Bed Mobility Bed Mobility: Supine to sit assist level Stand by assistance Bed Mobility: Supine to sit type of assist With head of bed elevated;With rail Transfers Transfer: Assistive Device Hand Hold Assist Transfer: Sit to stand assist level Minimum assistance Transfer: Sit to stand type of assist Facilitation of weight shift;For safety Transfer: Stand to sit assist level Minimum assistance Transfer: Stand to sit type of assist For safety Transfer: Stand pivot assist level Minimum assistance Transfer: Stand pivot type of assist For safety Gait Gait Distance 350 feet (+ multiple shorter distances) GAIT: Assist Level Two person assistance (variable throughout gait bouts) GAIT: Type of Assist Facilitation of trunk Gait: Assistive Device Hand Hold Assist (x2) Gait Comment Patient with crouched/slouching gait when fatigued or orthostatic s ymptoms noted. BPs obtained. Activity PT Therapeutic Activities Hypotension management, gait training/endurance, verba lization attempts Assessment Assessment Patient with signs of orthostasis during session, BPs documented in E MR. Patient resting back in room, compression donned and RN and MDs aware of ort hostasis. Plan Comments continue gait and other automatic activities, stairs, standing enduranc e/balance, dynamic balance as able, outcomes pending comprehension Louise Mcdonald PT, DPT ACE FIRER * Rosa Wheeler MD - 09/04/2022 6:31 AM CST Physical Medicine & Rehabilitation Progress Note Today's Date: 09/04/2022 Admission Date: 08/24/2022 LOS: 11 days Insurance: [employer] Principal Problem: Acute ischemic left MCA stroke (HCC) Active Problems: CAD (coronary artery disease) Stage 3b chronic kidney disease (HCC) Hyperlipidemia Primary hypertension Hypothyroidism Seizure disorder (HCC) History of multiple strokes Global aphasia Acute right hemiparesis (HCC) Impaired mobility and activities of daily living Risk for falls Assessment/Plan: Derek Castro Jr. is a 77 y.o. male admitted to [facility] on 08/24/2022 with the following issues: stroke Rehabilitation Plan Tentative discharge date: Rehabilitation: Patient will continue with comprehensive therapies including phy sical therapy, occupational therapy, speech & language pathology, specialized rehab nursing, neuropsychology and physiatry oversight. Goals: at ambulation level, household mobility, Stand by assistance, With caregi tara assistance, Progressing Recommended therapy after discharge: Home with Assistance, and, Home Health Sett ing PT recommended equipment: TBD OT recommended equipment: Too early to determine Daily Functional Update: Transfers Transfer: Assistive Device: Hand Hold Assist (09/03/2022 2:00 PM) Transfer: Sit to stand assist level: Minimum assistance; With two person (09/04/19 2:00 PM) Transfer: Stand pivot assist level: Moderate assistance; With two person (09/04/19 2:00 PM) No data recorded Gait/ Mobility Gait: Assistive Device: Hand Hold Assist (09/03/2022 2:00 PM) GAIT: Assist Level: Two person assistance; Moderate assistance; Minimum assistan ce (moderate of 1, minimal of 2nd) (09/03/2022 2:00 PM) Gait Distance: 350 feet (x 2 bouts) (09/03/2022 2:00 PM) No data recorded No data recorded Toileting Toileting Assist: Total Assist (09/02/2022 2:45 PM) No data recorded Toilet Transfer Assist: Moderate assistance; Minimum assistance; WIth two person (09/03/2022 2:00 PM) Dressing LE Dressing Assist: Moderate Assist (09/02/2022 2:45 PM) UE Dressing Assist: Minimal Assist (09/01/2022 10:00 AM) Current Medical Problems/Risks of Medical Complications/Management Acute Left M2 occlusions/p IRw/ aTICI3 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 Hx of multiple ischemic strokes(2020, R MCA 05/2022, L NILA 07/2022) Severe dysphagia and global aphasia, impaired cognition, impaired mobility with right hemiplegia, impaired ADLs >Will continue indefinitely on Eliquis 5mg BID and ASA 81mg daily per Neurology recommendations > 30 day cardiac event monitoror ILR at discharge and will maintain > PT/OT/DEPUTY HEAD to eval and treat > Sertraline as below, unable to utilize modafinil or amantadine secondary to PEG H/o Seizures > Continue CHILD DEVELOPMENT ASSOCIATE TEACHER Keppra 500 mg BID > Low threshold for neurology consult versus increasing Keppra to 1000 mg twice daily secondary to concerns for breakthrough seizure on 08/31/2022 lasting less than 10 seconds without tonic-clonic movement Oropharyngeal Dysphagia - Repeat video swallow 08/20 did not go well thus PEG placed on 08/20 > PEG care, abdominal binder > On bolus feeds and water thr peg, NPO, ice chip protocol > monitor labs-CMP, mag/phos while on TF > consulted siebel crm developer > DEPUTY HEAD to work with patient on dysphagia. Agitation, restlessness Disturbed sleep wake cycle, insomnia Agitation continues to improve >Melatonin 5mg QHS, trazodone 75mg QHS and seroquel 12.5mg at bedtime(continue for now). Prn seroquel during day ONLY for agitation/aggression that is not redi rectable. > Sleep hygiene > Redirection and reorientation > protect tubes and lines > Continue am SSRI (zoloft 50 mg) started 08/30 to improve daytime alertness/mood Neurogenic bladder/urinary retention : Lake replaced 08/22 and fter failed voiding trial > Cont doxazosin 1mg daily (unable to use Flomax due to [place]) > Will keep Lake in until agitation, aphasia and understanding improve some, as he was not tolerating bladder scans/timed voids/straight caths during last trial. Has a history of urinary retention does have a Urologist at home. If second voiding trial is not successful we will discharge home with Lake with follow-up with urology. Neurogenic bowel: constipation, incontinence > Continue senna. Bm + now > May need a set bowel time if incontinence continues. > Hold magnesium (09/01) HTN/ HLD CAD s/p CABG x5(2009) Hypotension - Echo 08/10 with EF 60%, no WMA or ventricle dysfunction > SBP goal:less than 160 >Cont amlodipine 10mg, statin, and ASA > Consult internal medicine, appreciate recommendations CKD stage 3 - BaselineCr~1.8-2 > Continue to monitor, avoid nephrotoxic meds Oral thrush - initiated course of nystatin 08/28; last day 09/11-then recheck > oral cares BID Hypothyroidism >Cont CHILD DEVELOPMENT ASSOCIATE TEACHER levothyroxine Rash - Dry, red macular rash noted to entire back >Cont Emollient cream Pulmonary nodules - Incidental finding with multiple subcentimeter pulmonary nodules, indeterminan t on initial examination. No dominant pulmonary mass > Follow-up CT chest in 3 months recommended to evaluate for stability Pain Management: pain seems well controlled, heat / ice PRN, topical medication and Tylenol PRN Skin: Encourage the patient to continue to inspect their skin and perform pressu re relief. BMI: Body mass index is 31.11 kg/m. Mental Health, high risk of depression with stroke and aphasia: consulted neuropsychology to provide support / counseling and monitor for depres miladys Sertraline as above DVT Prophylaxis: apixaban GI ppx: pepcid 20mg daily while on tube feeds. Subjective No acute events overnight. Patient seen sitting upright in WC, OT Louise and BOBY Lott at side. Patient is non-verbal and follows commands intermittently. Per t herapy, was hypotensive in gym. Patient appears comfortable. Therapy notes revie sat, and patient is progressing. Lake catheter with 950 mL output over last 24 hours. Incontinent of bowel with last BM 09/02. Objective Vital Signs: Last Filed Vital Signs: 24 Gladis r Range BP: 138/71 (09/04 2043) Temp: 36.9 C (98.4 F) (09/04 2043) Pulse: 74 (09/04 2043) Respirations: 18 PER MINUTE (09/04 2043) SpO2: 96 % (09/04 2043) O2 Device: None (Room air) (09/04 2043) BP: (109-138)/(57-71) Temp: [36.9 C (98.4 F)] Pulse: [74-75] Respirations: [18 PER MINUTE-20 PER MINUTE] SpO2: [96 %] O2 Device: None (Room air) Vitals: 08/24/22 1349 08/27/22 0421 09/03/22 0528 Weight: 92.8 kg (204 lb 9.4 oz) 96.7 kg (213 lb 3 oz) 90 kg (198 lb 6.6 oz) Intake/Output Summary: (Last 24 hours) Intake/Output Summary (Last 24 hours) at 09/04/2022 06 Last data filed at 09/04/2022 0607 Gross per 24 hour Intake 1415 ml Output 950 ml Net 465 ml Last Bowel Movement Date: 09/02/22 Labs--reviewed Results for orders placed or performed during the hospital encounter of 08/24/22 (from the past 24 hour(s)) CBC CELLULAR THERAPEUTICS Collection Time: 09/03/22 7:56 AM # # Low-High White Blood Cells 10.7 4.5 - 11.0 K/UL RBC 4.52 4.4 - 5.5 M/UL Hemoglobin 13.7 13.5 - 16.5 GM/DL Hematocrit 40.7 40 - 50 % MCV 90.1 80 - 100 FL MCH 30.3 26 - 34 PG MCHC 33.6 32.0 - 36.0 G/DL RDW 14.3 11 - 15 % Platelet Count 228 150 - 400 K/UL MPV 10.2 7 - 11 FL COMPREHENSIVE METABOLIC PANEL Collection Time: 09/03/22 7:56 AM # # Low-High Sodium 141 137 - 147 MMOL/L Potassium 3.9 3.5 - 5.1 MMOL/L Chloride 110 98 - 110 MMOL/L Glucose 141 (H) 70 - 100 MG/DL Blood Urea Nitrogen 35 (H) 7 - 25 MG/DL Creatinine 1.75 (H) 0.4 - 1.24 MG/DL Calcium 8.9 8.5 - 10.6 MG/DL Total Protein 6.0 6.0 - 8.0 G/DL Total Bilirubin 0.4 0.3 - 1.2 MG/DL Albumin 3.2 (L) 3.5 - 5.0 G/DL Alk Phosphatase 83 25 - 110 U/L AST (SGOT) 18 7 - 40 U/L CO2 23 21 - 30 MMOL/L ALT (SGPT) 19 7 - 56 U/L Anion Gap 8 3 - 12 eGFR 40 (L) >60 mL/min MAGNESIUM Collection Time: 09/03/22 7:56 AM # # Low-High Magnesium 1.9 1.6 - 2.6 mg/dL PHOSPHORUS Collection Time: 09/03/22 7:56 AM # # Low-High Phosphorus 1.8 (L) 2.0 - 4.5 MG/DL Medications: Scheduled Meds:amLODIPine (NORVASC) tablet 10 mg, 10 mg, PEG Tube, QDAY apixaban (ELIQUIS) tablet 5 mg, 5 mg, SEE ADMIN INSTRUCTIONS, BID aspirin chewable tablet 81 mg, 81 mg, PEG Tube, QDAY atorvastatin (LIPITOR) tablet 80 mg, 80 mg, PEG Tube, QDAY carvediloL (COREG) tablet 6.25 mg, 6.25 mg, PEG Tube, BID Diet Enteral Feeding Bolus, , SEE ADMIN INSTRUCTIONS, 5XDAY (6,12,15,18,22) And Water Bolus, 180 mL, PEG Tube, 5XDAY (6,12,15,18,22) [Held by Provider] docusate sodium (COLACE) oral solution 100 mg, 100 mg, PEG Tu be, BID doxazosin (CARDURA) tablet 1 mg, 1 mg, PEG Tube, QDAY famotidine (PEPCID) tablet 20 mg, 20 mg, PEG Tube, QDAY levETIRAcetam (KEPPRA) oral solution 500 mg, 500 mg, PEG Tube, BID levothyroxine (SYNTHROID) tablet 125 mcg, 125 mcg, PEG Tube, QDAY(07) magnesium oxide (MAGOX) tablet 400 mg, 400 mg, PEG Tube, BID melatonin tablet 5 mg, 5 mg, PEG Tube, QHS nystatin (MYCOSTATIN) oral suspension 100,000 Units, 100,000 Units, Oral, QID potassium chloride oral solution 20 mEq, 20 mEq, Feeding Tube, ONCE QUEtiapine (SEROquel) tablet 12.5 mg, 12.5 mg, PEG Tube, QHS [Held by Provider] markna (SENOKOT) oral syrup 17.6 mg, 10 mL, PEG Tube, QHS sertraline (ZOLOFT) tablet 50 mg, 50 mg, Oral, QDAY traZODone (DESYREL) tablet 75 mg, 75 mg, PEG Tube, QHS Continuous Infusions: PRN and Respiratory Meds:acetaminophen Q4H PRN, bisacodyL QDAY PRN, emollient MO N, pancrelipase 20,880 Units/sodium bicarbonate 650 mg (KU CLOG DESTROYER) PRN ( [employer] Worker from Rx), QUEtiapine QDAY PRN Physical Exam General: Alert but tired, NAD HEENT: NCAT, EOMI, some eye contact Heart: Extremities well perfused Lungs: Normal work of breathing on room air, appropriate chest rise with inspira tion Abdomen: Soft. Abdominal binder in place covering peg, PEG without any issues. : Lake catheter in place, draining light yellow urine Extremities: No edema, Neuro: Alert, non verbal, understands basic simple one step commands intermitten tly. No clonus. Hood's negative bilaterally. Psych: appropriate affect MSK: no atrophy Labs & Therapy Notes Reviewed Rosa Wheeler MD ACE FIRER Associated attestation - Esme Harkins MD - 09/04/2022 11:42 AM FURNACE FIRER ATTESTATION I personally performed the tineo portions of the E/M visit, discussed case with re sident and concur with resident documentation of history, physical exam, assessm ent, and treatment plan unless otherwise noted. Trying to verbalize - making some sounds, more awake and interactive today. Getting orthostatic in therapies, otherwise Bps stable on current meds. Gets aml odipine during the morning-?change to night-time. Also a a small dose of coreg. Compression stockings and abdominal binder. 9 beats of vtach yesterday-electroly ty repleted. Consult IM to assist with management. Staff name: Esme Harkins MD Date of Service: 09/04/2022 * Doe Fox RN - 09/04/2022 6:18 AM CST Acute Inpatient Rehabilitation Behavior Summary of Shift Name: Derek Castro Jr. : 1945 Age: 77 y.o. Admission Date: 08/24/2022 LOS: 11 days Date of Service: 09/04/2022 Reason for increased observation?Pulling tubes and impulsivity One-on-one safety watch: yes Q15-30 minute safety watch: no Suicide precaution:no Telemonitoring: no Behavior outbursts during this shift? no Description and time(s) of event: n/a Agitation during this shift?no Description and time(s) of event: n/a Active suicide ideation during this shift? no Description and time(s) of event: n/a Poor safety awareness or impulsivity during this shift?yes Description and time(s) of event: attempts to remove peg tube and lake Noteworthy visitor interactions during this shift? No Sleep/rest patterns observed during this shift? Slept well till 4:30 Therapeutic interventions: reorientation Additional Comments: ACE FIRER * Hannah Coker RN - 09/03/2022 6:45 PM CST Acute Inpatient Rehabilitation Behavior Summary of Shift Name: Derek Castro Jr. : 1945 Age: 77 y.o. Admission Date: 08/24/2022 LOS: 10 days Date of Service: 09/03/2022 Reason for increased observation? Pulling tubes and impulsivity One-on-one safety watch: Yes Q15-30 minute safety watch: No Suicide precaution: No Telemonitoring: No Behavior outbursts during this shift? No Description and time(s) of event: n/a Agitation during this shift? No Description and time(s) of event: n/a Active suicide ideation during this shift? No Description and time(s) of event: n/a Poor safety awareness or impulsivity during this shift? Yes Description and time(s) of event: Attempts to stand from chair without assistanc e Noteworthy visitor interactions during this shift? Sleep/rest patterns observed during this shift? Napped between therapy sessions Therapeutic interventions: Reorientation Additional Comments: ACE FIRER * Lilliam Layne - 09/03/2022 2:30 PM CST SPEECH-LANGUAGE PATHOLOGY 09/03/22 1430 Behavior Comments* Pt seated upright in wheelchair, had just finished with PT session. Pt appeared fatigued and benefited from frequent verbal/tactile stimuli to maintain alertness. Missed minutes made up from previous session this date. Dysphagia Goals Therapy Activities PO trials PO Trials Thin liquids Therapy Activity Comments Pt provided with PO trials ice chips and thin liquids via cup in which pt refused ice chip trials this date. Pt accepted thin liquids via cup x2 given hand under hand assist to guide to mouth for acceptance. Multip le swallows demonstrated with each trial with delayed throat clear for each tria l. Unable to assess vocal quality as pt unable to follow commands for assessment . Assessment Minimal acceptance of PO trials this date. Plan Dysphagia: -- ice chips -- trials of thin liquids -- swallow exercises as able Language: -- establish form of communication -- yes/no accuracy -- 1-step commands -- receptive ID Lilliam Layne MA CCC-DEPUTY HEAD ACE FIRER * Valery Weber, PT - 09/03/2022 2:00 PM CST PHYSICAL THERAPY 09/03/22 1400 Type of Note Type of Note Daily Time Calculation Start Time 1400 Stop Time 1430 Time Calculation 30 $$ Gait / Mobility 1 unit $$ PT Therapeutic Activity 1 unit Subjective Subjective Pt laying in bed, lightly sleeping. Spouse present in room, up in a power scooter. She is pleasant and eager to see pt mobilize. Pt agreeable to mo bility but did note increased fatigue and some difficulty directing activity onc e in therapy gym, likely due to overstimulation Precautions Precautions Aspiration;Constant observation Comments aphasia, heart monitor phone needs to stay with pt during therapies; PE G Comments abdominal binder Bed Mobility Bed Mobility: Supine to sit assist level Minimum assistance Bed Mobility: Supine to sit type of assist With head of bed elevated Transfers Transfer: Assistive Device Hand Hold Assist Transfer: Sit to stand assist level Minimum assistance;With two person Transfer: Sit to stand type of assist For safety Transfer: Stand to sit assist level Minimum assistance;With two person Transfer: Stand to sit type of assist For safety Transfer: Stand pivot assist level Moderate assistance;With two person Transfer Comment Increased assist with transfers this afternoon, likely due to f atigue. Stand/pivots variable minimal assist of 1 to moderate assist of 2 to fu lly rotate prior to sitting Toileting Transfer Toilet Transfer Assist Moderate assistance;Minimum assistance;WIth two person Toilet Transfer Comments assist for full turn prior to sitting, pt with increase d fatigue and does display some urgency to sit Gait Gait Distance 350 feet (x 2 bouts) GAIT: Assist Level Two person assistance;Moderate assistance;Minimum assistance (moderate of 1, minimal of 2nd) GAIT: Type of Assist Facilitation of weight shift;For safety Gait: Assistive Device Hand Hold Assist Gait: Patterns Variable speed;Variable step length;Decreased gait velocity;Shuff ling Gait Comment Increased gait deficits with fatigue. Struggles to follow verbal or manual cues for guidance in gym area due to high distractions. 2 people requir ed throughout gait for safety Activity PT Therapeutic Activities Attempted to get pt to participate in standing nut/yen ts activity as pt's spouse reports "he tinkers at home a lot". Upon initiaing a ctivity pt refuses to take nut and instead turns body and begins ambulating away from table despite cues (verbal and manual). Noting pt passing gas throughout session, transfered pt onto toilet upon completion of gait to allow for potentia l BM. Pt does pass gas while on toilet but otherwise is unsuccessful. Does ass ist with doffing pants when by toilet. Impulsive to initiate mobility in bathro om. Positioned up in tilt in space w/c with CO and pt's spouse present upon sess ion completion Outcome Measures 10 Meter Walk Assessed 10 Meter Walk: Average Gait Speed (seconds) 31.9 10 Meter Walk: Average Gait Speed (meters/second) 0.31 10 Meter Walk: Comfortable Gait Speed: Device Used FIELD SERVICE TECHNICIAN POULTRY, assist of 2 people (mini mal to moderate) 10 Meter Walk: Comfortable Gait Speed: Comment Gait speeds indicate pt a househo ld ambulator, at an increased risk for falls and requires interventions to reduc e said risk. Assessment Assessment Pt with increased fatigue this afternoon and some difficulty followin g any automatic task in gym environment (despite attempts to keep stimulus limit ed). 10MWT assessed- pt at an increased risk for falls based on gait speeds. Plan Comments continue gait and other automatic activities (HIGT?), stairs, standing endurance/balance, dynamic balance as able, outcomes pending comprehension Weekly Goals Patient will perform sit to supine with Minimum assistance;Progressing Patient will perform supine to sit with Minimum assistance;Progressing Patient will complete sit to stand transfer with Minimum assistance;Progressing Patient will complete stand to sit transfer with Minimum assistance;Progressing Patient will complete stand pivot transfer with Minimum assistance;Progressing Patient will ambulate 50 feet;Least assistive device;Moderate assistance;Progres sing Goal(s) for the Stay Patient will perform at ambulation level;household mobility;Stand by assistance; With caregiver assistance;Progressing ACE FIRER * Zoë Kennedy - 09/03/2022 1:30 PM CST Recreation Therapy Daily Note Start Time: 1330 Stop Time: 1400 Total Time: 30 Subjective: Patient supine in bed, agreeable to session. Spouse and CO present. Activity Type: 1:1 Intervention/Activity: Therapist assisted with setting up [employer] with patient's spouse. Attempted to register account twice. Therapist called [employer] help line. Spouse able to register and access account. Patient grasping ball with right u pper extremity. Session ended with handoff to PT. Assessment: Patient was pleasant. Discussed with spouse about setting up family pictures in room, spouse voiced agreement. Therapist will assist with setting up pictures in room. Showed spouse and patient different [employer] features. Plan: picture set up, spending time outside MAYRA Quintanilla Certified Frame Runner ACE FIRER * Lilliam Layne - 09/03/2022 11:00 AM CST SPEECH-LANGUAGE PATHOLOGY 09/03/22 1100 Behavior Comments* Pt appeared to be asleep in bed upon entry. CO and RN present. CO repo rted pt only sleeping 2 hours overnight and had just been transferred back to d after morning full of therapy sessions. Session ending early 2/2 pt difficulty maintaining alertness for active participation. Auditory Comprehension Goals Therapy Activities Command following Therapy Activity Comments Attempted command following with direct 1-step instruc tions. Pt responsive to verbal/tactile stimuli at start of session and nodded af ter DEPUTY HEAD introduction. Attempted PO trials ice chips in which pt refusing to feed self. DEPUTY HEAD providing ice chip with tactile cue to bottom lip for oral acceptance, however pt refusing. Pt grunting and turning head away x2 and final attempt re sulting in pt stating, "No." DEPUTY HEAD placing cup of water within line of vision and provided cue to "grab the cup" in which pt followed after second repetition. Pt instructed to take a drink in which guided cup to mouth approximately detention be fore stopping. DEPUTY HEAD providing hand under hand assistance to bring to mouth, shantell easton pt refusing and turning head again. Pt non-responsive to all other cues in at tempt for command following and further verbal expression. Pt returned to closin g eyes and minimally responsive to further stimuli. Session ending early, robert argueta will plan to make up minutes later this date. Assessment Minimal participation this session despite max cues. Anticipate lack of sleep overnight impacting progress this session. Plan Dysphagia: -- ice chips -- trials of thin liquids -- swallow exercises as able Language: -- establish form of communication -- yes/no accuracy -- 1-step commands -- receptive ID Lilliam Layne MA [facility]-DEPUTY HEAD ACE FIRER * Christiana Franco, OT - 09/03/2022 9:30 AM CST OCCUPATIONAL THERAPY NOTE Name: Derek Castro JrSourav : 1945 Age: 77 y.o. Admission Date: 08/24/2022 LOS: 10 days Date of Service: 09/03/2022 09/03/22 0930 Time Calculation Start Time 0930 Stop Time 1030 Time Calculation 60 $$ Therapeutic Activity 4 unit - 60 min Subjective Subjective Pt upright in chair upon arrival. Agreeable to OT session. Precautions Precautions Aspiration;Constant observation Comments aphasia Transfers Transfer: Assistive Device Hand Hold Assist Transfer: Sit to stand assist level Minimum assistance;With two person Transfer Comment Pt ambulates around unit with minimal assist x2 progressing to contact guard assist x1. Minimal purposeful ambulation however follows direction s 80% of the time. Does seem to purposefully avoid returning to his room. Activity Therapeutic Activities Pt partially participates in throwing darts and throwing/ kicking ball. Continues to struggle with perseveration and termination of tasks. Assessment Assessment Pt progressing in mobility and commadn following however continues to be a high burden of care. Plan Plan Comments command following; progress transfers; repetitive ADLs; oral care as able Type of Note Type of Note Daily Therapist: Christiana Franco OTR/[place] [id number] Date: 09/03/2022 ACE FIRER * Lady Downey MS,[facility]-DEPUTY HEAD - 09/03/2022 9:00 AM CST SPEECH-LANGUAGE PATHOLOGY 09/03/22 0900 Behavior Comments* Patient seated upright in wheelchair upon DEPUTY HEAD arrival. CO present at S LP arrival and exit. Dysphagia Goals Therapy Activities PO trials PO Trials Ice chips;Thin liquids Therapy Activity Comments Oral care completed in an attempt to reduce potential aspiration of bacteria-laden oropharyngeal secretions prior to po trials. To inc rease oral acceptance, [id number] approach utilized this date. DEPUTY HEAD aided Patient in holding toothbrush and cleanin g surface of teeth, gums, and tongue. Patient surface of tongue appeared to have white coating. MD and RN notified. Following oral care, Patient presented with ice chips x5 and thin liquids via spoon x1. Patient demonstrated intermittent or al holding this date. DEPUTY HEAD provided verbal cues to "swallow hard and fast." Stron g cough response appreciated following ice chip trial x1. No overt s/s of distr ess noted following remainder of po trials this date. DEPUTY HEAD attempted to administe r additional po trials, however, Patient noted to seal lips and turn head. Trial s discontinued at that time. Patient Will Participate in Instrumental Swallow Evaluation to Determine Appropr iate Diet Recommendations with Complete independence;Not met (Patient not appropriate for repeat swallowing instrumentation at this time. Sam l continue to assess and schedule as appropriate.) Patient Will Demonstrate Compensatory Swallow Strategies to Eliminate S/S of Asp iration with Moderate prompting - patient able to 25-49% of the time;Progressing Patient Will Tolerate PO Trials to Advance Diet with Minimal prompting - patient able to 50-74% of the time;Progressing Motor Speech - Apraxia Goals Patient Will Demonstrate Oral Motor Movements with Total assistance - Patient ab le to < 25% of the time (Limited progress due to Patient with decreased command execution at this time.) Patient Will Perform Automatic Speech Tasks with Total assistance - Patient able to < 25% of the time (Limited progress due to Patient with limited verbal output and decreased comman d execution at this time.) Patient Will Use Common Words/Phrases During Interactions with Staff with Total assistance - Patient able to < 25% of the time (Limited progress due to Patient with limited verbal output and decreased comman d execution at this time.) Auditory Comprehension Goals Patient Will Respond to [place] Yes/No Questions with Total assistance - Patien t able to < 25% of the time (Limited progress due to Patient with limited verbal output and decreased comman d execution at this time.) Verbal Expression Goals Patient Will Use Nonverbal Communication Modalities to Express Wants and Needs w ith Total assistance - Patient able to < 25% of the time Patient Will Use Single Words and/or Short Phrases to Express Daily Wants and Ne eds with Total assistance - Patient able to < 25% of the time (Limited progress due to Patient with limited verbal output and decreased comman d execution at this time.) Patient Will Respond to Close Ended Questions with Total assistance - Patient ab le to < 25% of the time (Limited progress due to Patient with limited verbal output and decreased comman d execution at this time.) Assessment Recommend Patient remain NPO at this time. In light of quality of lif e, hydration, and to reduce oropharyngeal atrophy, patient may have ice chips (1 -2 at a time) following oral care with supervision when seated upright. Plan Dysphagia: -- ice chips -- trials of thin liquids -- swallow exercises as able Language: -- establish form of communication -- yes/no accuracy -- 1-step commands -- receptive ID Lady Downey MS, CCC-DEPUTY HEAD ACE FIRER * Valery Weber, PT - 09/03/2022 8:30 AM CST PHYSICAL THERAPY 09/03/22 0830 Type of Note Type of Note Daily Time Calculation Start Time 0830 Stop Time 0900 Time Calculation 30 Subjective Subjective Pt awake in supine, CO present. He is unable to verbalize this sessi on due to aphasia but does nod for name confirmation and seems to understand L a nd R directions during gait activities. Precautions Precautions Aspiration;Constant observation Comments aphasia, heart monitor phone needs to stay with pt during therapies; PE G Comments abdominal binder Bed Mobility Bed Mobility: Supine to sit assist level Moderate assistance Bed Mobility: Supine to sit type of assist Assist with trunk Transfers Transfer: Assistive Device Hand Hold Assist Transfer: Sit to stand assist level Minimum assistance Transfer: Sit to stand type of assist For safety Transfer: Stand to sit assist level Minimum assistance Transfer: Stand to sit type of assist For safety Transfer: Stand pivot assist level Minimum assistance Transfer: Stand pivot type of assist For safety Transfer Comment CGA of 2nd person throughout session as pt with hx of variable assist. Does require assist to fully rotate prior to sitting down in chair Gait Gait Distance 350 feet (x350', x300) GAIT: Assist Level Two person assistance;Moderate assistance;Contact guard cheng tance GAIT: Type of Assist Facilitation of weight shift;For safety Gait: Assistive Device Hand Hold Assist Gait: Patterns Variable step length;Variable speed;Shuffling;Trunk lean forward Gait: Deviation Left Decreased knee extension at foot strike;Decreased stride le ngth Gait: Deviation Right Decreased dorsiflexion/toe drag in swingphase;Decreased kn ee extension in stance phase;Decreased hip flexion;Decreased stride length Gait Comment Variable gait assist however grossly improved with increased distan ce. PT varying assistance positions with most success standing on L side to pre vent distraction and facilitate lateral weight shifting. Pt does seem to feed i nto physical input and shows a tendency to lean into touch assist. After initia ing gait, 2nd person varying from CGA-minimal assist. Pt does seem to display f atigue with decreased R LE extension and step length. Activity PT Therapeutic Activities time taken at start of session to don shorts, socks an d shoes. Intermittent seated rest breaks taken throughout gait. Pt remains sitt ing up in w/c at end of session, CO present Assessment Assessment Pt tolerating increased distance completion today with slightly decre ased assist. Noted some emerging ability to follow basic commands noted ("stand up, go left, etc"). Plan Comments 10MWT,continue gait and other automatic activities, stairs, standing en durance/balance, dynamic balance as able, outcomes pending comprehension ACE FIRER * Katty Chowdary RN - 09/03/2022 7:29 AM CST Acute Inpatient Rehabilitation Behavior Summary of Shift Name: Derek Castro Jr. : 1945 Age: 77 y.o. Admission Date: 08/24/2022 LOS: 10 days Date of Service: 09/03/2022 Reason for increased observation? Pulling tubes and impulsivity One-on-one safety watch: Yes Q15-30 minute safety watch: No Suicide precaution: No Telemonitoring: No Behavior outbursts during this shift? No Description and time(s) of event: NA Agitation during this shift? No Description and time(s) of event: NA Active suicide ideation during this shift? No Description and time(s) of event: NA Poor safety awareness or impulsivity during this shift? Yes Description and time(s) of event: attempts to get out of bed without assistance Noteworthy visitor interactions during this shift? None Sleep/rest patterns observed during this shift? Had about two and half hours of sleep Therapeutic interventions: Redirection Additional Comments: ACE FIRER * Rosa Wheeler MD - 09/03/2022 6:15 AM CST Physical Medicine & Rehabilitation Progress Note Today's Date: 09/03/2022 Admission Date: 08/24/2022 LOS: 10 days Insurance: [employer] Principal Problem: Acute ischemic left MCA stroke (HCC) Active Problems: CAD (coronary artery disease) Stage 3b chronic kidney disease (HCC) Hyperlipidemia Primary hypertension Hypothyroidism Seizure disorder (HCC) History of multiple strokes Global aphasia Acute right hemiparesis (HCC) Impaired mobility and activities of daily living Risk for falls Assessment/Plan: Derek Castro Jr. is a 77 y.o. male admitted to [facility] on 08/24/2022 with the following issues: stroke Rehabilitation Plan Tentative discharge date: Rehabilitation: Patient will continue with comprehensive therapies including phy sical therapy, occupational therapy, speech & language pathology, specialized rehab nursing, neuropsychology and physiatry oversight. Goals: at ambulation level, household mobility, Minimum assistance, With caregiv er assistance Recommended therapy after discharge: Home with Assistance, and, Home Health Sett ing PT recommended equipment: TBD OT recommended equipment: Too early to determine Daily Functional Update: Transfers Transfer: Assistive Device: Hand Hold Assist (09/02/2022 2:45 PM) Transfer: Sit to stand assist level: Contact guard assistance (09/02/2022 2:45 PM ) Transfer: Stand pivot assist level: Minimum assistance (09/02/2022 2:45 PM) No data recorded Gait/ Mobility Gait: Assistive Device: Hand Hold Assist (08/31/2022 2:00 PM) GAIT: Assist Level: Contact guard assistance; Moderate assistance; Two person as sistance (variable throughout session) (08/31/2022 2:00 PM) Gait Distance: 300 feet (+ various distances throughout session) (08/31/2022 2:00 PM) No data recorded No data recorded Toileting Toileting Assist: Total Assist (09/02/2022 2:45 PM) No data recorded Toilet Transfer Assist: Moderate assistance (09/02/2022 2:45 PM) Dressing LE Dressing Assist: Moderate Assist (09/02/2022 2:45 PM) UE Dressing Assist: Minimal Assist (09/01/2022 10:00 AM) Current Medical Problems/Risks of Medical Complications/Management Acute Left M2 occlusions/p IRw/ aTICI3 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 Hx of multiple ischemic strokes(2020, R MCA 05/2022, L NILA 07/2022) Severe dysphagia and global aphasia, impaired cognition, impaired mobility with right hemiplegia, impaired ADLs >Will continue indefinitely on Eliquis 5mg BID and ASA 81mg daily per Neurology recommendations > 30 day cardiac event monitoror ILR at discharge and will maintain > PT/OT/DEPUTY HEAD to eval and treat > Sertraline as below, unable to utilize modafinil or amantadine secondary to PEG H/o Seizures > Continue CHILD DEVELOPMENT ASSOCIATE TEACHER Keppra 500 mg BID > Low threshold for neurology consult versus increasing Keppra to 1000 mg twice daily secondary to concerns for breakthrough seizure on 08/31/2022 lasting less than 10 seconds without tonic-clonic movement Oropharyngeal Dysphagia - Repeat video swallow 08/20 did not go well thus PEG placed on 08/20 > PEG care, abdominal binder > On bolus feeds and water thr peg, NPO, ice chip protocol > monitor labs-CMP, mag/phos while on TF > consulted siebel crm developer > DEPUTY HEAD to work with patient on dysphagia. Agitation, restlessness Disturbed sleep wake cycle, insomnia Agitation continues to improve >Melatonin 5mg QHS, trazodone 75mg QHS and seroquel 12.5mg at bedtime(continue for now). Prn seroquel during day ONLY for agitation/aggression that is not redi rectable. > Sleep hygiene > Redirection and reorientation > protect tubes and lines > Continue am SSRI (zoloft 50 mg) started 08/30 to improve daytime alertness/mood Neurogenic bladder/urinary retention : Lake replaced 08/22 and fter failed voiding trial > Cont doxazosin 1mg daily (unable to use Flomax due to Corpak) > Will keep Lake in until agitation, aphasia and understanding improve some, as he was not tolerating bladder scans/timed voids/straight caths during last trial. Has a history of urinary retention does have a Urologist at home. If second voiding trial is not successful we will discharge home with Lake with follow-up with urology. Neurogenic bowel: constipation, incontinence > Continue senna. Bm + now, however hold docusate as loose > May need a set bowel time if incontinence continues. > Hold magnesium (09/01) HTN/ HLD CAD s/p CABG x5(2009) - Echo 08/10 with EF 60%, no WMA or ventricle dysfunction > SBP goal:less than 160 >Cont amlodipine 10mg, statin, and ASA CKD stage 3 - BaselineCr~1.8-2 > Continue to monitor, avoid nephrotoxic meds Oral thrush > initiated course of nystatin 08/28; last day 09/11-then recheck > oral cares BID Hypothyroidism >Cont CHILD DEVELOPMENT ASSOCIATE TEACHER levothyroxine Rash - Dry, red macular rash noted to entire back >Cont Emollient cream Pulmonary nodules - Incidental finding with multiple subcentimeter pulmonary nodules, indeterminan t on initial examination. No dominant pulmonary mass > Follow-up CT chest in 3 months recommended to evaluate for stability Pain Management: pain seems well controlled, heat / ice PRN, topical medication and Tylenol PRN Skin: Encourage the patient to continue to inspect their skin and perform pressu re relief. BMI: Body mass index is 31.11 kg/m. Mental Health, high risk of depression with stroke and aphasia: consulted neuropsychology to provide support / counseling and monitor for depres miladys Sertraline as above DVT Prophylaxis: apixaban GI ppx: pepcid 20mg daily while on tube feeds. Subjective No acute events overnight. 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 Patient is nonverbal and was minimally responsive to questions but appears alert. He gestured that he wanted his television volume increased and channel switched. Per nursing staff he slept poorly overnight and was restless. Therapy notes reviewed, and patient is progressing. Lake catheter with 1050 mL output over last 24 hours. Incontinent of bowel with last BM 09/02. Objective Vital Signs: Last Filed Vital Signs: 24 Gladis r Range BP: 159/84 (09/04 431) Temp: 37.3 C (99.1 F) (09/04 431) Pulse: 77 (09/04 431) Respirations: 18 PER MINUTE (09/04 431) SpO2: 94 % (09/04 431) O2 Device: None (Room air) (09/04 431) BP: (132-159)/(81-86) Temp: [36.2 C (97.2 F)-37.3 C (99.1 F)] Pulse: [68-77] Respirations: [17 PER MINUTE-18 PER MINUTE] SpO2: [94 %-97 %] O2 Device: None (Room air) Vitals: 08/24/22 1349 08/27/22 0421 09/03/22 0528 Weight: 92.8 kg (204 lb 9.4 oz) 96.7 kg (213 lb 3 oz) 90 kg (198 lb 6.6 oz) Intake/Output Summary: (Last 24 hours) Intake/Output Summary (Last 24 hours) at 09/03/2022 0615 Last data filed at 09/03/2022 0437 Gross per 24 hour Intake -- Output 1050 ml Net -1050 ml Last Bowel Movement Date: 09/02/22 Labs--reviewed Results for orders placed or performed during the hospital encounter of 08/24/22 (from the past 24 hour(s)) CBC CELLULAR THERAPEUTICS Collection Time: 09/03/22 7:56 AM # # Low-High White Blood Cells 10.7 4.5 - 11.0 K/UL RBC 4.52 4.4 - 5.5 M/UL Hemoglobin 13.7 13.5 - 16.5 GM/DL Hematocrit 40.7 40 - 50 % MCV 90.1 80 - 100 FL MCH 30.3 26 - 34 PG MCHC 33.6 32.0 - 36.0 G/DL RDW 14.3 11 - 15 % Platelet Count 228 150 - 400 K/UL MPV 10.2 7 - 11 FL COMPREHENSIVE METABOLIC PANEL Collection Time: 09/03/22 7:56 AM # # Low-High Sodium 141 137 - 147 MMOL/L Potassium 3.9 3.5 - 5.1 MMOL/L Chloride 110 98 - 110 MMOL/L Glucose 141 (H) 70 - 100 MG/DL Blood Urea Nitrogen 35 (H) 7 - 25 MG/DL Creatinine 1.75 (H) 0.4 - 1.24 MG/DL Calcium 8.9 8.5 - 10.6 MG/DL Total Protein 6.0 6.0 - 8.0 G/DL Total Bilirubin 0.4 0.3 - 1.2 MG/DL Albumin 3.2 (L) 3.5 - 5.0 G/DL Alk Phosphatase 83 25 - 110 U/L AST (SGOT) 18 7 - 40 U/L CO2 23 21 - 30 MMOL/L ALT (SGPT) 19 7 - 56 U/L Anion Gap 8 3 - 12 eGFR 40 (L) >60 mL/min MAGNESIUM Collection Time: 09/03/22 7:56 AM # # Low-High Magnesium 1.9 1.6 - 2.6 mg/dL PHOSPHORUS Collection Time: 09/03/22 7:56 AM # # Low-High Phosphorus 1.8 (L) 2.0 - 4.5 MG/DL Medications: Scheduled Meds:amLODIPine (NORVASC) tablet 10 mg, 10 mg, PEG Tube, QDAY apixaban (ELIQUIS) tablet 5 mg, 5 mg, SEE ADMIN INSTRUCTIONS, BID aspirin chewable tablet 81 mg, 81 mg, PEG Tube, QDAY atorvastatin (LIPITOR) tablet 80 mg, 80 mg, PEG Tube, QDAY carvediloL (COREG) tablet 6.25 mg, 6.25 mg, PEG Tube, BID Diet Enteral Feeding Bolus, , SEE ADMIN INSTRUCTIONS, 5XDAY (6,12,15,18,22) And Water Bolus, 180 mL, PEG Tube, 5XDAY (6,12,15,18,22) [Held by Provider] docusate sodium (COLACE) oral solution 100 mg, 100 mg, PEG Tu be, BID doxazosin (CARDURA) tablet 1 mg, 1 mg, PEG Tube, QDAY famotidine (PEPCID) tablet 20 mg, 20 mg, PEG Tube, QDAY levETIRAcetam (KEPPRA) oral solution 500 mg, 500 mg, PEG Tube, BID levothyroxine (SYNTHROID) tablet 125 mcg, 125 mcg, PEG Tube, QDAY(07) [Held by Provider] magnesium oxide (MAGOX) tablet 400 mg, 400 mg, PEG Tube, BID melatonin tablet 5 mg, 5 mg, PEG Tube, QHS nystatin (MYCOSTATIN) oral suspension 100,000 Units, 100,000 Units, Oral, QID QUEtiapine (SEROquel) tablet 12.5 mg, 12.5 mg, PEG Tube, QHS senna (SENOKOT) oral syrup 17.6 mg, 10 mL, PEG Tube, QHS sertraline (ZOLOFT) tablet 50 mg, 50 mg, Oral, QDAY traZODone (DESYREL) tablet 75 mg, 75 mg, PEG Tube, QHS Continuous Infusions: PRN and Respiratory Meds:acetaminophen Q4H PRN, bisacodyL QDAY PRN, emollient MO N, pancrelipase 20,880 Units/sodium bicarbonate 650 mg (KU CLOG DESTROYER) PRN ( [employer]chard Worker from Rx), QUEtiapine QDAY PRN Physical Exam General: Alert but tired, NAD HEENT: NCAT, EOMI, some eye contact Heart: Extremities well perfused Lungs: Normal work of breathing on room air, appropriate chest rise with inspira tion Abdomen: Soft. Abdominal binder in place covering peg, PEG without any issues. : Lake catheter in place, draining light yellow urine Extremities: No edema, Neuro: Alert, non verbal, understands basic simple one step commands intermitten tly. No clonus. Hood's negative bilaterally. Psych: appropriate affect MSK: no atrophy Labs & Therapy Notes Reviewed Rosa Wheeler MD ACE FIRER Associated attestation - Esme Harkins MD - 09/03/2022 11:46 AM FURNACE FIRER ATTESTATION I personally performed the tineo portions of the E/M visit, discussed case with re valentinnt and concur with resident documentation of history, physical exam, assessm ent, and treatment plan unless otherwise noted. Slept poorly last night. Probably rested during day as no therapies, since he wa s sleeping fairly well prior. Watch tonight. Continue melatonin, trazodone and s eroquel. Staff name: Esme Harkins MD Date of Service: 09/03/2022 * Carmen Gann, OT - 09/02/2022 2:45 PM CST OCCUPATIONAL THERAPY 09/02/22 1445 Time Calculation Start Time 1445 Stop Time 1515 Time Calculation 30 $$ Professional Contact 1 unit $$ Phys ADL Skills 2 units History Reason For Admission Acute ischemic left MCA stroke Previous Medical History CAD s/p CABG, CKD, HTN, multiple ischemic CVAs in rigth NILA, MCA territories, Left pariental lobe and bilateral cereberllar hemispheres (2019, May 2022, and Jul 2022)- patient has mild left sided ataxia Subjective Subjective Pt supine in bed at start of session. CO reports pt "wants to get up. " Pt appears agreeable to out of bed activity. Precautions Precautions Aspiration;Constant observation Cognitive Orientation Unable to Assess (Comment) Patient Behavior Calm;Cooperative;Flat affect Cognition Decrease attention/ concentration;Impulsive;Poor Safety Awareness Grooming Grooming - Wash Both Hands Assist Yes Grooming Assist Moderate Assist Grooming Position Standing for ___ % of task Grooming Comments Pt requires min assist for balance standing at sink, max cuing for sequencing and [place] assist to locate and use soap dispensor. OT encouraged pt to engage in other grooming tasks at sink, but pt ambulates back to bed and re turns to supine. Pt refused further out of bed activity despite max coaxning. Lower Body Dressing LE Dressing Assist Moderate Assist Lower Dressing Position Sitting edge of bed Lower Dressing Comments Pt required assist to thread BLE into brief, and to pull up completely over hips. Pt able to thread BLE into pants, required assist for lake management and assist to pull up completely in back. Pt able to don socks with figure 4 technique but requires assist to pull all the way up. Toileting Toileting-Adjusting clothing BEFORE using toiet, commode, bedpan or urinal Cheng t Yes Toileting-Wipe Self Assist Yes Toileting-Adjust clothing AFTER using toilet, commode, bedpan or urinal Assist Y es Toileting Assist Total Assist Toileting Position Standing Toileting Comments Pt ambulates to bathroom with min-mod assist of therapist, sofy quires increased cuing to complete full turn to toilet and to remain standing to manage pants. Pt requires max cuing throughout toileting for sequencing and phy sical assist due to attention deficits and impulsivity. After toileting pt ambul ates back to bed. OT educated CO and RN that if pt appears restless, he may bene fit from assist to toilet for continent toileting. Toileting Transfer Toilet Transfer Technique Posterior transfer onto receptacle Toilet Transfer Assist Moderate assistance Toilet Transfer Equipment Commode - 3 in 1 Toilet Transfer Comments Assist for full turn to toilet. Daily Care Patient continent of bowel? Yes, no bowel program Stool Occurrence 1 Stool Amount Large Stool Appearance Loose Stool Color Brown;Yellow Last Bowel Movement Date 09/02/22 Bed Mobility Bed Mobility: Supine to sit assist level Stand by assistance Bed Mobility: Supine to sit type of assist With head of bed elevated Bed Mobility: Sit to Supine Assist Level Contact guard assistance Bed Mobility: Sit to supine type of assist With rail;With head of bed elevated Transfers Transfer: Assistive Device Hand Hold Assist Transfer: Sit to stand assist level Contact guard assistance Transfer: Sit to stand type of assist For safety Transfer: Stand to sit assist level Contact guard assistance Transfer: Stand to sit type of assist For safety Transfer: Stand pivot assist level Minimum assistance Transfer: Stand pivot type of assist For safety Transfer Comment Min-mod assist for balance, wayfinding, and safety ambulating t o bathroom. Assessment Assessment Pt progressing towards goals. Plan Plan Comments command following; progress transfers; repetitive ADLs; oral care as able Recommendations OT Discharge Recommendations Home with consistent supervision;Day program;Home w ith family assist OT Equipment Recommendations Too early to determine Type of Note Type of Note Daily LANDY Madrigal/Ludivina ACE FIRER * Renae Singh RN - 09/02/2022 6:55 AM CST Acute Inpatient Rehabilitation Behavior Summary of Shift Name: Derek Castro Jr. : 1945 Age: 77 y.o. Admission Date: 08/24/2022 LOS: 9 days Date of Service: 09/02/2022 Reason for increased observation? Pulling tubes, impulsivity One-on-one safety watch: Yes Q15-30 minute safety watch: No Suicide precaution: No Telemonitoring: No Behavior outbursts during this shift? No Description and time(s) of event: Agitation during this shift? No Description and time(s) of event: Active suicide ideation during this shift? No Description and time(s) of event: Poor safety awareness or impulsivity during this shift? Yes Description and time(s) of event: attempts to get off bed without assistance, ea sily redirected and assisted. Noteworthy visitor interactions during this shift? Spouse on phone Sleep/rest patterns observed during this shift? Patient observed resting calmly most of the night, slept well. Therapeutic interventions: Redirection and Reorientation Additional Comments: ACE FIRER * Rosa Wheeler MD - 09/02/2022 5:14 AM CST Physical Medicine & Rehabilitation Progress Note Today's Date: 09/02/2022 Admission Date: 08/24/2022 LOS: 9 days Insurance: [employer] Principal Problem: Acute ischemic left MCA stroke (HCC) Active Problems: CAD (coronary artery disease) Stage 3b chronic kidney disease (HCC) Hyperlipidemia Primary hypertension Hypothyroidism Seizure disorder (HCC) History of multiple strokes Global aphasia Acute right hemiparesis (HCC) Impaired mobility and activities of daily living Risk for falls Assessment/Plan: Derek Castro Jr. is a 77 y.o. male admitted to [facility] on 08/24/2022 with the following issues: stroke Rehabilitation Plan Tentative discharge date: Rehabilitation: Patient will continue with comprehensive therapies including phy sical therapy, occupational therapy, speech & language pathology, specialized rehab nursing, neuropsychology and physiatry oversight. Goals: at ambulation level, household mobility, Minimum assistance, With caregiv er assistance Recommended therapy after discharge: Home with Assistance, and, Home Health Sett ing PT recommended equipment: TBD OT recommended equipment: Too early to determine Daily Functional Update: Transfers Transfer: Assistive Device: Hand Hold Assist (09/01/2022 10:00 AM) Transfer: Sit to stand assist level: Contact guard assistance; Minimum assistanc e (08/31/2022 2:00 PM) Transfer: Stand pivot assist level: Contact guard assistance; Maximum assistance (varied from beginning of session to end of session) (08/31/2022 2:00 PM) No data recorded Gait/ Mobility Gait: Assistive Device: Hand Hold Assist (08/31/2022 2:00 PM) GAIT: Assist Level: Contact guard assistance; Moderate assistance; Two person as sistance (variable throughout session) (08/31/2022 2:00 PM) Gait Distance: 300 feet (+ various distances throughout session) (08/31/2022 2:00 PM) No data recorded No data recorded Toileting Toileting Assist: Total Assist (08/25/2022 9:45 AM) No data recorded No data recorded Dressing LE Dressing Assist: Maximum Assist (09/01/2022 10:00 AM) UE Dressing Assist: Minimal Assist (09/01/2022 10:00 AM) Current Medical Problems/Risks of Medical Complications/Management Acute Left M2 occlusions/p IRw/ aTICI3 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 Hx of multiple ischemic strokes(2019, R MCA 05/2022, L NILA 07/2022) Severe dysphagia and global aphasia, impaired cognition, impaired mobility with right hemiplegia, impaired ADLs >Will continue indefinitely on Eliquis 5mg BID and ASA 81mg daily per Neurology recommendations > 30 day cardiac event monitoror ILR at discharge and will maintain > PT/OT/DEPUTY HEAD to eval and treat > Sertraline as below, unable to utilize modafinil or amantadine secondary to PEG H/o Seizures > Continue CHILD DEVELOPMENT ASSOCIATE TEACHER Keppra 500 mg BID > Low threshold for neurology consult versus increasing Keppra to 1000 mg twice daily secondary to concerns for breakthrough seizure on 08/31/2022 lasting less than 10 seconds without tonic-clonic movement Oropharyngeal Dysphagia - Repeat video swallow 08/20 did not go well thus PEG placed on 08/20 > PEG care, abdominal binder > On bolus feeds and water thr peg, NPO, ice chip protocol > monitor labs-CMP, mag/phos while on TF > consulted siebel crm developer > DEPUTY HEAD to work with patient on dysphagia. Agitation, restlessness Disturbed sleep wake cycle, insomnia Agitation continues to improve >Melatonin 5mg QHS, trazodone 75mg QHS and seroquel 12.5mg at bedtime(continue for now). Prn seroquel during day ONLY for agitation/aggression that is not redi rectable. > Sleep hygiene > Redirection and reorientation > protect tubes and lines > Continue am SSRI (zoloft 50 mg) started 08/30 to improve daytime alertness/mood Neurogenic bladder/urinary retention : Lake replaced 08/22 and fter failed voiding trial > Cont doxazosin 1mg daily (unable to use Flomax due to Corpak) > Will keep Lake in until agitation, aphasia and understanding improve some, as he was not tolerating bladder scans/timed voids/straight caths during last trial. Has a history of urinary retention does have a Urologist at home. If second voiding trial is not successful we will discharge home with Lake with follow-up with urology. Neurogenic bowel: constipation, incontinence > Continue senna. Bm + now, however hold docusate as loose > May need a set bowel time if incontinence continues. > Hold magnesium (09/01) HTN/ HLD CAD s/p CABG x5(2009) - Echo 08/10 with EF 60%, no WMA or ventricle dysfunction > SBP goal:less than 160 >Cont amlodipine 10mg, statin, and ASA CKD stage 3 - BaselineCr~1.8-2 > Continue to monitor, avoid nephrotoxic meds Oral thrush > initiated course of nystatin 08/28; last day 09/11-then recheck > oral cares BID Hypothyroidism >Cont CHILD DEVELOPMENT ASSOCIATE TEACHER levothyroxine Rash - Dry, red macular rash noted to entire back >Cont Emollient cream Pulmonary nodules - Incidental finding with multiple subcentimeter pulmonary nodules, indeterminan t on initial examination. No dominant pulmonary mass > Follow-up CT chest in 3 months recommended to evaluate for stability Pain Management: pain seems well controlled, heat / ice PRN, topical medication and Tylenol PRN Skin: Encourage the patient to continue to inspect their skin and perform pressu re relief. BMI: Body mass index is 31.11 kg/m. Mental Health, high risk of depression with stroke and aphasia: consulted neuropsychology to provide support / counseling and monitor for depres miladys Sertraline as above DVT Prophylaxis: apixaban GI ppx: pepcid 20mg daily while on tube feeds. Subjective No acute events overnight. Continuous observer at side. Patient was non-verbal b ut appeared pleasant and comfortable. No concerns from observer. Therapy notes r eviewed, and patient is progressing well. Lake catheter with 1000 mL output ove r last 24 hours. Incontinent of bowel with last BM 09/01. Denies fever, chills, he adache, chest pain, shortness of breath, nausea, dysuria, or bleeding. Objective Vital Signs: Last Filed Vital Signs: 24 Gladis r Range BP: 144/70 (09/03 423) Temp: 36.6 C (97.9 F) (09/03 423) Pulse: 64 (09/03 423) Respirations: 18 PER MINUTE (09/03 423) SpO2: 96 % (09/03 423) O2 Device: None (Room air) (09/03 423) BP: (136-144)/(69-70) Temp: [36.6 C (97.8 F)-36.8 C (98.3 F)] Pulse: [64-78] Respirations: [18 PER MINUTE] SpO2: [95 %-96 %] O2 Device: None (Room air) Vitals: 08/24/22 1349 08/27/22 0421 Weight: 92.8 kg (204 lb 9.4 oz) 96.7 kg (213 lb 3 oz) Intake/Output Summary: (Last 24 hours) Intake/Output Summary (Last 24 hours) at 09/02/2022 0514 Last data filed at 09/02/2022 0425 Gross per 24 hour Intake 1165 ml Output 1220 ml Net -55 ml Last Bowel Movement Date: 09/01/22 Labs--reviewed No results found for this visit on 08/24/22 (from the past 24 hour(s)). Medications: Scheduled Meds:amLODIPine (NORVASC) tablet 10 mg, 10 mg, PEG Tube, QDAY apixaban (ELIQUIS) tablet 5 mg, 5 mg, SEE ADMIN INSTRUCTIONS, BID aspirin chewable tablet 81 mg, 81 mg, PEG Tube, QDAY atorvastatin (LIPITOR) tablet 80 mg, 80 mg, PEG Tube, QDAY carvediloL (COREG) tablet 6.25 mg, 6.25 mg, PEG Tube, BID Diet Enteral Feeding Bolus, , SEE ADMIN INSTRUCTIONS, 5XDAY (6,12,15,18,22) And Water Bolus, 180 mL, PEG Tube, 5XDAY (6,12,15,18,22) [Held by Provider] docusate sodium (COLACE) oral solution 100 mg, 100 mg, PEG Tu be, BID doxazosin (CARDURA) tablet 1 mg, 1 mg, PEG Tube, QDAY famotidine (PEPCID) tablet 20 mg, 20 mg, PEG Tube, QDAY levETIRAcetam (KEPPRA) oral solution 500 mg, 500 mg, PEG Tube, BID levothyroxine (SYNTHROID) tablet 125 mcg, 125 mcg, PEG Tube, QDAY(07) [Held by Provider] magnesium oxide (MAGOX) tablet 400 mg, 400 mg, PEG Tube, BID melatonin tablet 5 mg, 5 mg, PEG Tube, QHS nystatin (MYCOSTATIN) oral suspension 100,000 Units, 100,000 Units, Oral, QID QUEtiapine (SEROquel) tablet 12.5 mg, 12.5 mg, PEG Tube, QHS senna (SENOKOT) oral syrup 17.6 mg, 10 mL, PEG Tube, QHS sertraline (ZOLOFT) tablet 50 mg, 50 mg, Oral, QDAY traZODone (DESYREL) tablet 75 mg, 75 mg, PEG Tube, QHS Continuous Infusions: PRN and Respiratory Meds:acetaminophen Q4H PRN, aluminum/magnesium hydroxide Q4H PRN, bisacodyL QDAY PRN, emollient PRN, lactulose BID PRN, ondansetron Q6H PRN, pancrelipase 20,880 Units/sodium bicarbonate 650 mg (KU CLOG DESTROYER) PRN (Orchard Worker from Rx), QUEtiapine QDAY PRN Physical Exam General: Alert but tired, NAD, seen in bed resting peacefully HEENT: NCAT, some tracking with eyes today Heart: Extremities well perfused Lungs: Normal work of breathing on room air, appropriate chest rise with inspira tion Abdomen: Soft. Abdominal binder in place covering peg, PEG without any issues. : Lake catheter in place, draining light yellow urine Extremities: No edema, Neuro: Alert, non verbal, understands basic simple one step commands. Left ankle clonus Psych: appropriate affect MSK: no atrophy Labs & Therapy Notes Reviewed Rosa Wheeler MD ACE FIRER Associated attestation - Gerald Guerra MD - 09/03/2022 1:06 AM FURNACE FIRER ATTESTATION I personally observed the resident performing the E/M, discussed case with resid ent, and concur with resident documentation of history, physical assessment and treatment plan unless otherwise noted. Staff name: Gerald Guerra MD Date of Service: 09/02/2022 * Lamine Augustin RN - 09/01/2022 6:51 PM CST Acute Inpatient Rehabilitation Behavior Summary of Shift Name: Derek Castro Jr. : 1945 Age: 77 y.o. Admission Date: 08/24/2022 LOS: 8 days Date of Service: 09/01/2022 Reason for increased observation? Pulling lines tubes One-on-one safety watch: Yes Q15-30 minute safety watch: No Suicide precaution: No Telemonitoring: No Behavior outbursts during this shift? No Description and time(s) of event: n/a Agitation during this shift? Yes Description and time(s) of event: while changing linen/briefs pt would gently gr ab staff arms or not let go of the bed rail to assist with turns side to side in bed. Active suicide ideation during this shift? No Description and time(s) of event: n/a Poor safety awareness or impulsivity during this shift? Yes Description and time(s) of event: one event of getting up the the edge of bed wi thout requesting assistance. Noteworthy visitor interactions during this shift? none Sleep/rest patterns observed during this shift? Napped occasionally this shift Therapeutic interventions: Distraction, Redirection, Reorientation and Stop activity Additional Comments: ACE FIRER * Christiana Franco, OT - 09/01/2022 10:00 AM CST OCCUPATIONAL THERAPY NOTE Name: Derek Castro Jr. : 1945 Age: 77 y.o. Admission Date: 08/24/2022 LOS: 8 days Date of Service: 09/01/2022 09/01/22 1000 Time Calculation Start Time 1000 Stop Time 1030 Time Calculation 30 $$ Phys ADL Skills 2 units Subjective Subjective Pt supine upon arrival. more alert facial expressions today. Waves he llo to therapist. Upper Body Dressing UE Dressing Assist Minimal Assist Upper Dressing Position Sitting in chair Upper Dressing Comments minimal assist to initiate doffing shirt and orienting n ew shirt. Lower Body Dressing LE Dressing Assist Maximum Assist Lower Dressing Position Sitting edge of bed Lower Dressing Comments assist to thread lake through pant legs. Pt participate s in threading BLE through pants and pulling up over hips. Bed Mobility Bed Mobility: Supine to sit assist level Moderate assistance Transfers Transfer: Assistive Device Hand Hold Assist Transfer Comment Pt ambulates in hallway with moderate assist x2. Increased push ing/leaning towards the L. Assessment Assessment Pt with improved command following and appropriate interactions today . Plan Plan Comments command following; progress transfers; repetitive ADLs; oral care as able Type of Note Type of Note Daily Therapist: VIN Mason/Ludivina [id number] Date: 09/01/2022 ACE FIRER * Renae Singh RN - 09/01/2022 7:05 AM CST Acute Inpatient Rehabilitation Behavior Summary of Shift Name: Derek Castro Jr. : 1945 Age: 77 y.o. Admission Date: 08/24/2022 LOS: 8 days Date of Service: 09/01/2022 Reason for increased observation? Pulling tubes, impulsivity One-on-one safety watch: Yes Q15-30 minute safety watch: No Suicide precaution: No Telemonitoring: No Behavior outbursts during this shift? No Description and time(s) of event: Agitation during this shift? No Description and time(s) of event: Active suicide ideation during this shift? No Description and time(s) of event: Poor safety awareness or impulsivity during this shift? Yes Description and time(s) of event: attempts to reach out Peg tube during feedings Noteworthy visitor interactions during this shift? Sleep/rest patterns observed during this shift? slept well through the night aft er HS medications. Therapeutic interventions: Redirection and Reorientation Additional Comments: ACE FIRER * Rosa Wheeler MD - 09/01/2022 5:15 AM CST Physical Medicine & Rehabilitation Progress Note Today's Date: 09/01/2022 Admission Date: 08/24/2022 LOS: 7 days Insurance: [employer] Principal Problem: Acute ischemic left MCA stroke (HCC) Active Problems: CAD (coronary artery disease) Stage 3b chronic kidney disease (HCC) Hyperlipidemia Primary hypertension Hypothyroidism Seizure disorder (HCC) History of multiple strokes Global aphasia Acute right hemiparesis (HCC) Impaired mobility and activities of daily living Risk for falls Assessment/Plan: Derek Castro Jr. is a 77 y.o. male admitted to [facility] on 08/24/2022 with the following issues: stroke Rehabilitation Plan Tentative discharge date: Rehabilitation: Patient will continue with comprehensive therapies including phy sical therapy, occupational therapy, speech & language pathology, specialized rehab nursing, neuropsychology and physiatry oversight. Goals: at ambulation level, household mobility, Minimum assistance, With caregiv er assistance Recommended therapy after discharge: Home with Assistance, and, Home Health Sett ing PT recommended equipment: TBD OT recommended equipment: Too early to determine Daily Functional Update: Transfers Transfer: Assistive Device: Hand Hold Assist; None (08/31/2022 2:00 PM) Transfer: Sit to stand assist level: Contact guard assistance; Minimum assistanc e (08/31/2022 2:00 PM) Transfer: Stand pivot assist level: Contact guard assistance; Maximum assistance (varied from beginning of session to end of session) (08/31/2022 2:00 PM) No data recorded Gait/ Mobility Gait: Assistive Device: Hand Hold Assist (08/31/2022 2:00 PM) GAIT: Assist Level: Contact guard assistance; Moderate assistance; Two person as sistance (variable throughout session) (08/31/2022 2:00 PM) Gait Distance: 300 feet (+ various distances throughout session) (08/31/2022 2:00 PM) No data recorded No data recorded Toileting Toileting Assist: Total Assist (08/25/2022 9:45 AM) No data recorded No data recorded Dressing LE Dressing Assist: Total Assist (08/31/2022 1:00 PM) UE Dressing Assist: Minimal Assist (08/30/2022 8:15 AM) Current Medical Problems/Risks of Medical Complications/Management Acute Left M2 occlusions/p IRw/ aTICI3 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 Hx of multiple ischemic strokes(2019, R MCA 05/2022, L NILA 07/2022) Severe dysphagia and global aphasia, impaired cognition, impaired mobility with right hemiplegia, impaired ADLs >Will continue indefinitely on Eliquis 5mg BID and ASA 81mg daily per Neurology recommendations > 30 day cardiac event monitoror ILR at discharge and will maintain > PT/OT/DEPUTY HEAD to eval and treat > Sertraline as below, unable to utilize modafinil or amantadine secondary to PEG H/o Seizures > Continue CHILD DEVELOPMENT ASSOCIATE TEACHER Keppra 500 mg BID > Low threshold for neurology consult versus increasing Keppra to 1000 mg twice daily secondary to concerns for breakthrough seizure on 08/31/2022 lasting less than 10 seconds without tonic-clonic movement Oropharyngeal Dysphagia - Repeat video swallow 08/20 did not go well thus PEG placed on 08/20 > PEG care, abdominal binder > On bolus feeds and water thr peg, NPO, ice chip protocol > monitor labs-CMP, mag/phos while on TF > consulted siebel crm developer > DEPUTY HEAD to work with patient on dysphagia. Agitation, restlessness Disturbed sleep wake cycle, insomnia Agitation continues to improve >Melatonin 5mg QHS, trazodone 75mg QHS and seroquel 12.5mg at bedtime(continue for now). Prn seroquel during day ONLY for agitation/aggression that is not redi rectable. > Sleep hygiene > Redirection and reorientation > protect tubes and lines > Continue am SSRI (zoloft 50 mg) started 08/30 to improve daytime alertness/mood Neurogenic bladder/urinary retention : Lake replaced 08/22 and fter failed voiding trial > Cont doxazosin 1mg daily (unable to use Flomax due to Corpak) > Will keep Lake in until agitation, aphasia and understanding improve some, as he was not tolerating bladder scans/timed voids/straight caths during last trial. Has a history of urinary retention does have a Urologist at home. If second voiding trial is not successful we will discharge home with Lake with follow-up with urology. Neurogenic bowel: constipation, incontinence > Continue senna. Bm + now, however hold docusate as loose > May need a set bowel time if incontinence continues. > Hold magnesium (09/01) HTN/ HLD CAD s/p CABG x5(2009) - Echo 08/10 with EF 60%, no WMA or ventricle dysfunction > SBP goal:less than 160 >Cont amlodipine 10mg, statin, and ASA CKD stage 3 - BaselineCr~1.8-2 > Continue to monitor, avoid nephrotoxic meds Oral thrush > initiated course of nystatin 08/28; last day 09/11-then recheck > oral cares BID Hypothyroidism >Cont CHILD DEVELOPMENT ASSOCIATE TEACHER levothyroxine Rash - Dry, red macular rash noted to entire back >Cont Emollient cream Pulmonary nodules - Incidental finding with multiple subcentimeter pulmonary nodules, indeterminan t on initial examination. No dominant pulmonary mass > Follow-up CT chest in 3 months recommended to evaluate for stability Pain Management: pain seems well controlled, heat / ice PRN, topical medication and Tylenol PRN Skin: Encourage the patient to continue to inspect their skin and perform pressu re relief. BMI: Body mass index is 31.11 kg/m. Mental Health, high risk of depression with stroke and aphasia: consulted neuropsychology to provide support / counseling and monitor for depres miladys Sertraline as above DVT Prophylaxis: apixaban GI ppx: pepcid 20mg daily while on tube feeds. Subjective No acute events overnight. Continuous observer at side. Patient was non-verbal b ut appeared pleasant and comfortable. Therapy notes reviewed, and patient is pro gressing well. Lake catheter with 1230 mL output over last 24 hours. Continent of bowel with last BM 08/31. Per nursing staff, has had 7 loose bowel movements ov er the last 24 hours. Denies fever, chills, headache, chest pain, shortness of b reath, nausea, dysuria, or bleeding. Objective Vital Signs: Last Filed Vital Signs: 24 Gladis r Range BP: 92/60 (08/31 1525) Temp: 36.6 C (97.8 F) (08/31 1525) Pulse: 71 (08/31 1525) Respirations: 18 PER MINUTE (08/31 1525) SpO2: 95 % (08/31 1525) O2 Device: None (Room air) (08/31 1525) BP: (92-142)/(59-78) Temp: [36.6 C (97.8 F)-36.9 C (98.4 F)] Pulse: [70-76] Respirations: [16 PER MINUTE-18 PER MINUTE] SpO2: [92 %-95 %] O2 Device: None (Room air) Vitals: 08/24/22 1349 08/27/22 0421 Weight: 92.8 kg (204 lb 9.4 oz) 96.7 kg (213 lb 3 oz) Intake/Output Summary: (Last 24 hours) Intake/Output Summary (Last 24 hours) at 08/31/2022 1900 Last data filed at 08/31/2022 0648 Gross per 24 hour Intake 430 ml Output 1230 ml Net -800 ml Last Bowel Movement Date: 08/31/22 Labs--reviewed Results for orders placed or performed during the hospital encounter of 08/24/22 (from the past 24 hour(s)) CBC CELLULAR THERAPEUTICS Collection Time: 08/31/22 7:43 AM # # Low-High White Blood Cells 8.0 4.5 - 11.0 K/UL RBC 4.51 4.4 - 5.5 M/UL Hemoglobin 13.8 13.5 - 16.5 GM/DL Hematocrit 41.2 40 - 50 % MCV 91.3 80 - 100 FL MCH 30.6 26 - 34 PG MCHC 33.5 32.0 - 36.0 G/DL RDW 14.3 11 - 15 % Platelet Count 287 150 - 400 K/UL MPV 10.3 7 - 11 FL BASIC METABOLIC PANEL CELLULAR THERAPEUTICS Collection Time: 08/31/22 7:43 AM # # Low-High Sodium 140 137 - 147 MMOL/L Potassium 3.7 3.5 - 5.1 MMOL/L Chloride 106 98 - 110 MMOL/L CO2 25 21 - 30 MMOL/L Anion Gap 9 3 - 12 Glucose 189 (H) 70 - 100 MG/DL Blood Urea Nitrogen 40 (H) 7 - 25 MG/DL Creatinine 1.77 (H) 0.4 - 1.24 MG/DL Calcium 8.9 8.5 - 10.6 MG/DL eGFR 39 (L) >60 mL/min Medications: Scheduled Meds:amLODIPine (NORVASC) tablet 10 mg, 10 mg, PEG Tube, QDAY apixaban (ELIQUIS) tablet 5 mg, 5 mg, SEE ADMIN INSTRUCTIONS, BID aspirin chewable tablet 81 mg, 81 mg, PEG Tube, QDAY atorvastatin (LIPITOR) tablet 80 mg, 80 mg, PEG Tube, QDAY carvediloL (COREG) tablet 6.25 mg, 6.25 mg, PEG Tube, BID Diet Enteral Feeding Bolus, , SEE ADMIN INSTRUCTIONS, 5XDAY (6,12,15,18,22) And Water Bolus, 180 mL, PEG Tube, 5XDAY (6,12,15,18,22) [Held by Provider] docusate sodium (COLACE) oral solution 100 mg, 100 mg, PEG Tu be, BID doxazosin (CARDURA) tablet 1 mg, 1 mg, PEG Tube, QDAY famotidine (PEPCID) tablet 20 mg, 20 mg, PEG Tube, QDAY levETIRAcetam (KEPPRA) oral solution 500 mg, 500 mg, PEG Tube, BID levothyroxine (SYNTHROID) tablet 125 mcg, 125 mcg, PEG Tube, QDAY(07) magnesium oxide (MAGOX) tablet 400 mg, 400 mg, PEG Tube, BID melatonin tablet 5 mg, 5 mg, PEG Tube, QHS nystatin (MYCOSTATIN) oral suspension 100,000 Units, 100,000 Units, Oral, QID QUEtiapine (SEROquel) tablet 12.5 mg, 12.5 mg, PEG Tube, QHS senna (SENOKOT) oral syrup 17.6 mg, 10 mL, PEG Tube, QHS sertraline (ZOLOFT) tablet 50 mg, 50 mg, Oral, QDAY traZODone (DESYREL) tablet 75 mg, 75 mg, PEG Tube, QHS Continuous Infusions: PRN and Respiratory Meds:acetaminophen Q4H PRN, aluminum/magnesium hydroxide Q4H PRN, bisacodyL QDAY PRN, emollient PRN, lactulose BID PRN, ondansetron Q6H PRN, pancrelipase 20,880 Units/sodium bicarbonate 650 mg (KU CLOG DESTROYER) PRN (Orchard Worker from Rx), QUEtiapine QDAY PRN Physical Exam General: Alert but tired, NAD, seen in bed resting peacefully HEENT: NCAT, some tracking with eyes today Heart: Extremities well perfused Lungs: Normal work of breathing on room air, appropriate chest rise with inspira tion Abdomen: Soft. Abdominal binder in place covering peg, PEG without any issues. : Lake catheter in place, draining light yellow urine Extremities: No edema, Neuro: Alert, non verbal, understands basic simple one step commands. Left ankle clonus Psych: appropriate affect MSK: no atrophy Labs & Therapy Notes Reviewed Rosa Wheeler MD ACE FIRER Associated attestation - Gerald Guerra MD - 09/01/2022 11:11 PM FURNACE FIRER ATTESTATION I personally observed the resident performing the E/M, discussed case with resid ent, and concur with resident documentation of history, physical assessment and treatment plan unless otherwise noted. Staff name: Gerald Guerra MD Date of Service: 09/01/2022 * Lamine Augustin RN - 08/31/2022 7:06 PM CST Acute Inpatient Rehabilitation Behavior Summary of Shift Name: Derek Castro Jr. : 1945 Age: 77 y.o. Admission Date: 08/24/2022 LOS: 7 days Date of Service: 08/31/2022 Reason for increased observation? Pulling at tubes One-on-one safety watch: Yes Q15-30 minute safety watch: No Suicide precaution: No Telemonitoring: No Behavior outbursts during this shift? No Description and time(s) of event: n/a Agitation during this shift? No Description and time(s) of event: n/a Active suicide ideation during this shift? No Description and time(s) of event: n/a Poor safety awareness or impulsivity during this shift? Yes Description and time(s) of event: pulling at g tube and lake at times throughou t shift Noteworthy visitor interactions during this shift? none Sleep/rest patterns observed during this shift? Napped occasionally during shift Therapeutic interventions: Distraction, Redirection, Reorientation and Stop activity Additional Comments: ACE FIRER * Louise Mcdonald, PT - 08/31/2022 2:00 PM CST PHYSICAL THERAPY 08/31/22 1400 Type of Note Type of Note Daily Time Calculation Start Time 1400 Stop Time 1500 Time Calculation 60 $$ Gait / Mobility 3 units $$ PT Therapeutic Activity 1 unit Subjective Subjective Patient in bed, assisted to edge of bed to begin therapy. Bed Mobility Bed Mobility Comments Dependent assist to edge of bed due to lack of initiation. Transfers Transfer: Assistive Device Hand Hold Assist;None Transfer: Sit to stand assist level Contact guard assistance;Minimum assistance Transfer: Sit to stand type of assist For safety Transfer: Stand to sit assist level Contact guard assistance Transfer: Stand to sit type of assist For safety Transfer: Stand pivot assist level Contact guard assistance;Maximum assistance (varied from beginning of session to end of session) Transfer: Stand pivot type of assist For safety Transfer Comment A x 2 for all mobility due to impulsivity, unpredictable moveme nts and variable need for assistance throughout one session. Gait Gait Distance 300 feet (+ various distances throughout session) GAIT: Assist Level Contact guard assistance;Moderate assistance;Two person cheng grant (variable throughout session) GAIT: Type of Assist Facilitation of weight shift;For safety Gait: Assistive Device Hand Hold Assist Gait: Patterns Antalgic;Shuffling;Trunk lean right Activity PT Therapeutic Activities patient sat and messed with nuts and bolts, gait train ing, toileting Assessment Assessment Patient showing some signs that he did not feel well, BP obtained and demonstreated 91/55. Once back to bed, patient's BP 123/67. RN made aware. Megan ent resting in bed post therapy. SKILLS INSTRUCTOR and RN made aware of patient's fluctuating gait. Plan Comments functional activties, stepping/gait, orthostasis management, Louise Mcdonald PT, DPT ACE FIRER * Christiana Franco OT - 08/31/2022 1:00 PM CST OCCUPATIONAL THERAPY NOTE Name: Derek Castro Jr. : 1945 Age: 77 y.o. Admission Date: 08/24/2022 LOS: 7 days Date of Service: 08/31/2022 08/31/22 1300 Time Calculation Start Time 1300 Stop Time 1330 Time Calculation 30 $$ Phys ADL Skills 2 units Subjective Subjective Pt supine upon arrival. Lower Body Dressing LE Dressing Assist Total Assist Lower Dressing Comments Pt total assist for dressing supine. Bed Mobility Bed Mobility Comments attempted dependent EOB transfer however unable to maintai n as pt repeatedly laying down. Assessment Assessment Pt resisting mobility more today and seems more despondent. Plan Plan Comments command following; progress transfers; RUE re-ed; visual scanning Type of Note Type of Note Daily Therapist: [place] [id number] Date: 08/31/2022 ACE FIRER * Esme Harkins MD - 08/31/2022 11:45 AM CST ATTESTATION I personally performed the tineo portions of the E/M visit, discussed case with re sident and concur with resident documentation of history, physical exam, assessm ent, and treatment plan unless otherwise noted. Slept well last night but did need seroquel around 11.30 to fall asleep. Calm th is am. Gave a thumbs up. Has also nodded yes/no a couple times in DEPUTY HEAD. Staff name: Esme Harkins MD Date of Service: 08/31/2022 Physical Medicine & Rehabilitation Progress Note Today's Date: 08/31/2022 Admission Date: 08/24/2022 LOS: 7 days Insurance: [employer] Principal Problem: Acute ischemic left MCA stroke (HCC) Active Problems: CAD (coronary artery disease) Stage 3b chronic kidney disease (HCC) Hyperlipidemia Primary hypertension Hypothyroidism Seizure disorder (HCC) History of multiple strokes Global aphasia Acute right hemiparesis (HCC) Impaired mobility and activities of daily living Risk for falls Assessment/Plan: Derek Castro Jr. is a 77 y.o. male admitted to [facility] on 08/24/2022 with the following issues: stroke Rehabilitation Plan Tentative discharge date: Rehabilitation: Patient will continue with comprehensive therapies including phy sical therapy, occupational therapy, speech & language pathology, specialized rehab nursing, neuropsychology and physiatry oversight. Goals: at ambulation level, household mobility, Minimum assistance, With caregiv er assistance Recommended therapy after discharge: Home with Assistance, and, Home Health Sett ing PT recommended equipment: TBD OT recommended equipment: Too early to determine Daily Functional Update: Transfers Transfer: Assistive Device: Hand Hold Assist; None (08/30/2022 10:00 AM) Transfer: Sit to stand assist level: Contact guard assistance (08/30/2022 10:00 AM ) Transfer: Stand pivot assist level: Contact guard assistance (08/30/2022 10:00 AM) No data recorded Gait/ Mobility Gait: Assistive Device: None (FIELD SERVICE TECHNICIAN POULTRY) (08/30/2022 10:00 AM) GAIT: Assist Level: Contact guard assistance (CGA assist of 2) (08/30/2022 10:00 A M) Gait Distance: 0 feet (300 feet x 5 + multiple shorter gym distances) (08/30/2022 10:00 AM) No data recorded No data recorded Toileting Toileting Assist: Total Assist (08/25/2022 9:45 AM) No data recorded No data recorded Dressing LE Dressing Assist: Moderate Assist (08/30/2022 8:15 AM) UE Dressing Assist: Minimal Assist (08/30/2022 8:15 AM) Current Medical Problems/Risks of Medical Complications/Management Acute Left M2 occlusions/p IRw/ aTICI3 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 Hx of multiple ischemic strokes(2019, R MCA 05/2022, L NILA 07/2022) Severe dysphagia and global aphasia, impaired cognition, impaired mobility with right hemiplegia, impaired ADLs >Will continue indefinitely on Eliquis 5mg BID and ASA 81mg daily per Neurology recommendations > 30 day cardiac event monitoror ILR at discharge and will maintain > PT/OT/DEPUTY HEAD to eval and treat > Sertraline as below, unable to utilize modafinil or amantadine secondary to PEG H/o Seizures > Continue CHILD DEVELOPMENT ASSOCIATE TEACHER Keppra 500 mg BID > Low threshold for neurology consult versus increasing Keppra to 1000 mg twice daily secondary to concerns for breakthrough seizure on 08/31/2022 lasting less than 10 seconds without tonic-clonic movement Oropharyngeal Dysphagia - Repeat video swallow 08/20 did not go well thus PEG placed on 08/20 > PEG care, abdominal binder > On bolus feeds and water thr peg, NPO, ice chip protocol > monitor labs-CMP, mag/phos while on TF > consulted siebel crm developer > DEPUTY HEAD to work with patient on dysphagia. Agitation, restlessness Disturbed sleep wake cycle, insomnia Agitation continues to improve >Melatonin 5mg QHS, trazodone 75mg QHS and seroquel 12.5mg at bedtime(continue for now). Prn seroquel during day ONLY for agitation/aggression that is not redi rectable. > Sleep hygiene > Redirection and reorientation > protect tubes and lines > Continue am SSRI (zoloft 50 mg) started 08/30 to improve daytime alertness/mood Neurogenic bladder/urinary retention : Lake replaced 08/22 and fter failed voiding trial > Cont doxazosin 1mg daily (unable to use Flomax due to Corpak) > Will keep Lake in until agitation, aphasia and understanding improve some, as he was not tolerating bladder scans/timed voids/straight caths during last trial. Has a history of urinary retention does have a Urologist at home. If second voiding trial is not successful we will discharge home with Lake with follow-up with urology. Neurogenic bowel: constipation, incontinence > Continue senna and magnesium oxide. Bm + now, however hold docusate as loose > May need a set bowel time if incontinence continues. HTN/ HLD CAD s/p CABG x5(2009) - Echo 08/10 with EF 60%, no WMA or ventricle dysfunction > SBP goal:less than 160 >Cont amlodipine 10mg, statin, and ASA CKD stage 3 - BaselineCr~1.8-2 > Continue to monitor, avoid nephrotoxic meds Oral thrush > initiated course of nystatin 08/28; last day 09/11-then recheck > oral cares BID Hypothyroidism >Cont CHILD DEVELOPMENT ASSOCIATE TEACHER levothyroxine Rash - Dry, red macular rash noted to entire back >Cont Emollient cream Pulmonary nodules - Incidental finding with multiple subcentimeter pulmonary nodules, indeterminan t on initial examination. No dominant pulmonary mass > Follow-up CT chest in 3 months recommended to evaluate for stability Pain Management: pain seems well controlled, heat / ice PRN, topical medication and Tylenol PRN Skin: Encourage the patient to continue to inspect their skin and perform pressu re relief. BMI: Body mass index is 31.11 kg/m. Mental Health, high risk of depression with stroke and aphasia: consulted neuropsychology to provide support / counseling and monitor for depres miladys Sertraline as above DVT Prophylaxis: apixaban GI ppx: pepcid 20mg daily while on tube feeds. Subjective NAEO, seen and evaluated this morning without any issues. Continues to be aphas ic at this time with significant apraxia. Is able to give thumbs up but with li mited interaction. After discussing with other medical staff no increased physi charlie agitation was redirectable. At approximately 10:00 patient suddenly became flaccid, unresponsive lasting les s than 10 seconds before returning to baseline, vitals without any abnormalities , no tonic-clonic motion noted. Is without significant lethargy after event and is able to interact. Objective Vital Signs: Last Filed Vital Signs: 24 Gladis r Range BP: 136/59 (08/31 832) Temp: 36.9 C (98.4 F) (08/31 345) Pulse: 72 (08/31 832) Respirations: 16 PER MINUTE (08/31 345) SpO2: 92 % (08/31 345) O2 Device: None (Room air) (08/31 345) BP: (100-142)/(58-78) Temp: [36.6 C (97.8 F)-36.9 C (98.4 F)] Pulse: [63-76] Respirations: [16 PER MINUTE-18 PER MINUTE] SpO2: [92 %-95 %] O2 Device: None (Room air) Vitals: 08/24/22 1349 08/27/22 0421 Weight: 92.8 kg (204 lb 9.4 oz) 96.7 kg (213 lb 3 oz) Intake/Output Summary: (Last 24 hours) Intake/Output Summary (Last 24 hours) at 08/31/2022 1145 Last data filed at 08/31/2022 0648 Gross per 24 hour Intake 430 ml Output 1580 ml Net -1150 ml Last Bowel Movement Date: 08/31/22 Labs--reviewed Results for orders placed or performed during the hospital encounter of 08/24/22 (from the past 24 hour(s)) CBC CELLULAR THERAPEUTICS Collection Time: 08/31/22 7:43 AM # # Low-High White Blood Cells 8.0 4.5 - 11.0 K/UL RBC 4.51 4.4 - 5.5 M/UL Hemoglobin 13.8 13.5 - 16.5 GM/DL Hematocrit 41.2 40 - 50 % MCV 91.3 80 - 100 FL MCH 30.6 26 - 34 PG MCHC 33.5 32.0 - 36.0 G/DL RDW 14.3 11 - 15 % Platelet Count 287 150 - 400 K/UL MPV 10.3 7 - 11 FL BASIC METABOLIC PANEL CELLULAR THERAPEUTICS Collection Time: 08/31/22 7:43 AM # # Low-High Sodium 140 137 - 147 MMOL/L Potassium 3.7 3.5 - 5.1 MMOL/L Chloride 106 98 - 110 MMOL/L CO2 25 21 - 30 MMOL/L Anion Gap 9 3 - 12 Glucose 189 (H) 70 - 100 MG/DL Blood Urea Nitrogen 40 (H) 7 - 25 MG/DL Creatinine 1.77 (H) 0.4 - 1.24 MG/DL Calcium 8.9 8.5 - 10.6 MG/DL eGFR 39 (L) >60 mL/min Medications: Scheduled Meds:amLODIPine (NORVASC) tablet 10 mg, 10 mg, PEG Tube, QDAY apixaban (ELIQUIS) tablet 5 mg, 5 mg, SEE ADMIN INSTRUCTIONS, BID aspirin chewable tablet 81 mg, 81 mg, PEG Tube, QDAY atorvastatin (LIPITOR) tablet 80 mg, 80 mg, PEG Tube, QDAY carvediloL (COREG) tablet 6.25 mg, 6.25 mg, PEG Tube, BID Diet Enteral Feeding Bolus, , SEE ADMIN INSTRUCTIONS, 5XDAY (6,12,15,18,22) And Water Bolus, 180 mL, PEG Tube, 5XDAY (6,12,15,18,22) docusate sodium (COLACE) oral solution 100 mg, 100 mg, PEG Tube, BID doxazosin (CARDURA) tablet 1 mg, 1 mg, PEG Tube, QDAY famotidine (PEPCID) tablet 20 mg, 20 mg, PEG Tube, QDAY levETIRAcetam (KEPPRA) oral solution 500 mg, 500 mg, PEG Tube, BID levothyroxine (SYNTHROID) tablet 125 mcg, 125 mcg, PEG Tube, QDAY(07) magnesium oxide (MAGOX) tablet 400 mg, 400 mg, PEG Tube, BID melatonin tablet 5 mg, 5 mg, PEG Tube, QHS nystatin (MYCOSTATIN) oral suspension 100,000 Units, 100,000 Units, Oral, QID senna (SENOKOT) oral syrup 17.6 mg, 10 mL, PEG Tube, QHS sertraline (ZOLOFT) tablet 50 mg, 50 mg, Oral, QDAY traZODone (DESYREL) tablet 75 mg, 75 mg, PEG Tube, QHS Continuous Infusions: PRN and Respiratory Meds:acetaminophen Q4H PRN, aluminum/magnesium hydroxide Q4H PRN, bisacodyL QDAY PRN, emollient PRN, lactulose BID PRN, ondansetron Q6H PRN, pancrelipase 20,880 Units/sodium bicarbonate 650 mg (KU CLOG DESTROYER) PRN (Orchard Worker from Rx), QUEtiapine QDAY PRN, QUEtiapine QHS PRN Physical Exam General: Alert but tired, NAD, seen in bed resting peacefully HEENT: NCAT, some tracking with eyes today Heart: Extremities well perfused Lungs: Normal work of breathing on room air, appropriate chest rise with inspira tion Abdomen: Soft. Abdominal binder in place covering peg, PEG without any issues. Extremities: No edema, Neuro: Alert, non verbal, understands basic simple one step commands. Psych: appropriate affect MSK: no atrophy Labs & Therapy Notes Reviewed Ryan Seay DO ACE FIRER * Rocío Leone MS,CCC-DEPUTY HEAD - 08/31/2022 11:00 AM CST SPEECH-LANGUAGE PATHOLOGY DAILY NOTE 08/31/22 0800 Behavior Comments* Pt laying in bed on arrival. Seated upright in bed for treatment sessi on - alert and agreaable to visit. CO present on arrival and CO + RN present on exit. Red flag handoff at exit. Dysphagia Goals Therapy Activities PO trials PO Trials Ice chips Therapy Activity Comments DEPUTY HEAD administered oral care using suction toothbrush at beginning of session. DEPUTY HEAD administered ice chip trials via spoon x5 this sessio n. After all trials, throat clear observed x1. DEPUTY HEAD asked patient if he wanted mo re and he appeared to shake head "no". Continue current swallow recommendations. Verbal Expression Goals Therapy Activities Use of an augmentative communication device;Nonverbal communi cation Therapy Activity Comments Pt with improved indepedent use of gestures/non verbal communication this date. Pt independently nodded "yes" 2x to functional wants/n eed questions (e.g. "Do you want more ice?"). Shook head "no" and verbalized wor d "no" at same time when asked needs question at end of session. Attempted use o f yes/no communication board. Pt is not able to consistently answer basic yes/no question or imitate pointing to board despite max cues. Attempted receptive marisel ntification of pictures on ipad, but patient did not respond despite max tactile and verbal cues. Assessment Pt making progress on goals. Improved use of gestures and nonverbal c ommunication this date. Plan Dysphagia: -- ice chips -- trials of thin liquids -- swallow exercises as able Language: -- establish form of communication -- yes/no accuracy -- 1-step commands -- receptive ID Rocío Leone MS CCC-DEPUTY HEAD ACE FIRER * Rocío Leone MS,CCC-DEPUTY HEAD - 08/31/2022 11:00 AM CST SPEECH-LANGUAGE PATHOLOGY DAILY NOTE 08/31/22 1100 Behavior Comments* Pt laying in bed on arrival. Seated upright in bed for treatment sessi on - alert and agreaable to visit. CO present on arrival and CO on exit. Red fla g handoff at exit. Verbal Expression Goals Therapy Activities Nonverbal communication;Use of an augmentative communication device Nonverbal Communication Total assistance - patient able to < 25% of the time Therapy Activity Comments Pt with continued improved use of gestures/non verbal communication this date. DEPUTY HEAD offered patient a variety of activities - playing w ith beanbags, watching videos, listening to music, etc. and incorporated opportu nities to indicate yes/no responses. Pt independently nodded "yes" 2x to basic w ants/need questions (e.g. "Do you want more X?"). Attempted use of yes/no commu nication board, but patient only points to left side. With last activity, annamarie law did not shake head yes/no when asked if he was done with activity, but he woul d reach back for beanbag when asked, seeming to indicate interest for more. Assessment Pt making progress on goals. Improved use of gestures and nonverbal c ommunication this date. Plan Dysphagia: -- ice chips -- trials of thin liquids -- swallow exercises as able Language: -- establish form of communication -- yes/no accuracy -- 1-step commands -- receptive ID Rocío Leone MS CCC-DEPUTY HEAD ACE FIRER * Christiana Franco, OT - 08/31/2022 9:30 AM CST OCCUPATIONAL THERAPY NOTE Name: Derek Castro JrSourav : 1945 Age: 77 y.o. Admission Date: 08/24/2022 LOS: 7 days Date of Service: 08/31/2022 08/31/22 0930 Time Calculation Start Time 0930 Stop Time 1045 Time Calculation 75 $$ Phys ADL Skills 3 units $$ Therapeutic Activity 2 unit - 30 min Subjective Subjective Pt supine upon arrival. participates in therapy session with naveen marrufo. Lower Body Dressing LE Dressing Assist Maximum Assist Lower Dressing Position Sitting edge of bed Lower Dressing Comments Pt resisting OOB mobility more today and requiring incr eased assist for dressing. Toileting Toileting Comments Pt incontinent of bowels x2 during session. Toileting Transfer Toilet Transfer Comments Minimal assist x2 for stand pivot on/off toilet. Pt has brief seizure like activity when transferring off toilet. Becomes rigid in exte nsion and leans towards R with head turn towards R. Eyes noted to roll back. Epi sode lasts about 10 seconds. Daily Care Patient continent of bowel? No Stool Occurrence 1 Stool Amount Large Stool Appearance Loose;Liquid Stool Color [place] Transfers Transfer Comment Pt requiring moderate assist x2 for ambulation on unit, progres ses to minimal assist x2. Increased pushing on R. Assessment Assessment Reports seizure like activity to nursing and Dr. Seay. Pt progressing. Plan Plan Comments command following; progress transfers; RUE re-ed; visual scanning Type of Note Type of Note Daily Therapist: Christiana Franco OTR/[place] [id number] Date: 08/31/2022 ACE FIRER * Carlso Juarez RN - 08/31/2022 6:28 AM CST Acute Inpatient Rehabilitation Behavior Summary of Shift Name: Derek Castro Jr. : 1945 Age: 77 y.o. Admission Date: 08/24/2022 LOS: 7 days Date of Service: 08/31/2022 Reason for increased observation? Impulsivity; restlessness; hx of pulling at li teagan and tubes One-on-one safety watch: Yes Q15-30 minute safety watch: No Suicide precaution: No Telemonitoring: No Behavior outbursts during this shift? No Description and time(s) of event: n/a Agitation during this shift? Yes Description and time(s) of event: Pt restless and appeared agitated at beginning of shift d/t pt needing brief changed from episode of bowel incontinence. Active suicide ideation during this shift? No Description and time(s) of event: n/a Poor safety awareness or impulsivity during this shift? Yes Description and time(s) of event: Pt trying to lean over side of bed during rest less episode. CO present to ensure pt does not get up unattended and prevent pt falls. Noteworthy visitor interactions during this shift? None, but RN did speak with p t's on the phone. Sleep/rest patterns observed during this shift? Pt slept from ~6120-1327 with in termittent restless periods during the night. Pt would wake up and fidget with h is blankets for short intervals and then fall back to sleep. Therapeutic interventions: Redirection and Reorientation Additional Comments: Would recommend con't use of CO for pt safety at this time. ACE FIRER * Carlos Juarez RN - 08/31/2022 5:17 AM CST Pt's called the unit last night, & would like to be contacted today by case management to discuss options for pt's discharge plan/location of discharge. stated her and her family all talked last night and her family is concerned about the taking care of the patient at home d/t her own health issues. ACE FIRER * Hannah Coker RN - 08/30/2022 7:53 PM CST Acute Inpatient Rehabilitation Behavior Summary of Shift Name: Derek Castro Jr. : 1945 Age: 77 y.o. Admission Date: 08/24/2022 LOS: 6 days Date of Service: 08/30/2022 Reason for increased observation? Poor safety awareness, pulling tubes One-on-one safety watch: Yes Q15-30 minute safety watch: No Suicide precaution: No Telemonitoring: No Behavior outbursts during this shift? No Description and time(s) of event: Agitation during this shift? Yes Description and time(s) of event: episodes of restlessness Active suicide ideation during this shift? No Description and time(s) of event: Poor safety awareness or impulsivity during this shift? Yes Description and time(s) of event: Patient tried to get out of bed without assist ance Noteworthy visitor interactions during this shift? no Sleep/rest patterns observed during this shift? Patient took naps between therap y Therapeutic interventions: Redirection,redirection Additional Comments: ACE FIRER * Rocío Leone MS,CCC-DEPUTY HEAD - 08/30/2022 3:06 PM CST SPEECH-LANGUAGE PATHOLOGY 08/30/22 1400 Behavior Comments* Pt laying in bed on arrival. DEPUTY HEAD assisted pt upright in bed for visit. speaking with recreational therapist on arrival. CO and on exit - red flag handoff. Per staff/, pt received seroquel earlier today for agitation. states he is more "sleepy" now. Verbal Expression Goals Therapy Activities (caregiver interview and education) Therapy Activity Comments DEPUTY HEAD spoke with patient's Joycelyn to obtain history, PLOF details for patient. She reported he had no to minimal cognitive-communica tion deficits following his prior strokes and was verbally communicating without difficulty prior to this stroke. provided details on patient's interests/h obbies to utilize in therapy. DEPUTY HEAD provided verbal education on patient's global communication deficits and current therapeutic plan/goals/recommended strategies . She verbalized understanding. Assessment Pt with decreased alertness this session - likely due to recent admin istration of seroquel. Pt making functional progress on goals. Plan Dysphagia: -- ice chips -- trials of thin liquids -- swallow exercises as able Language: -- establish form of communication -- yes/no accuracy -- 1-step commands -- receptive ID Rocío Leone MS CCC-DEPUTY HEAD ACE FIRER * Ryan Seay DO - 08/30/2022 1:59 PM CST Physical Medicine & Rehabilitation Progress Note Today's Date: 08/30/2022 Admission Date: 08/24/2022 LOS: 6 days Insurance: [employer] Principal Problem: Acute ischemic left MCA stroke (HCC) Active Problems: CAD (coronary artery disease) Stage 3b chronic kidney disease (HCC) Hyperlipidemia Primary hypertension Hypothyroidism Seizure disorder (HCC) History of multiple strokes Global aphasia Acute right hemiparesis (HCC) Impaired mobility and activities of daily living Risk for falls Assessment/Plan: Derek Castro JrSourav is a 77 y.o. male admitted to [facility] on 08/24/2022 with the following issues: stroke Rehabilitation Plan Tentative discharge date: Rehabilitation: Patient will continue with comprehensive therapies including phy sical therapy, occupational therapy, speech & language pathology, specialized rehab nursing, neuropsychology and physiatry oversight. Goals: at ambulation level, household mobility, Minimum assistance, With caregiv er assistance Recommended therapy after discharge: Home with Assistance, and, Home Health Sett ing PT recommended equipment: TBD OT recommended equipment: Too early to determine Daily Functional Update: Transfers Transfer: Assistive Device: Hand Hold Assist; None (08/30/2022 10:00 AM) Transfer: Sit to stand assist level: Contact guard assistance (08/30/2022 10:00 AM ) Transfer: Stand pivot assist level: Contact guard assistance (08/30/2022 10:00 AM) No data recorded Gait/ Mobility Gait: Assistive Device: None (FIELD SERVICE TECHNICIAN POULTRY) (08/30/2022 10:00 AM) GAIT: Assist Level: Contact guard assistance (CGA assist of 2) (08/30/2022 10:00 A M) Gait Distance: 0 feet (300 feet x 5 + multiple shorter gym distances) (08/30/2022 10:00 AM) No data recorded No data recorded Toileting Toileting Assist: Total Assist (08/25/2022 9:45 AM) No data recorded No data recorded Dressing LE Dressing Assist: Moderate Assist (08/30/2022 8:15 AM) UE Dressing Assist: Minimal Assist (08/30/2022 8:15 AM) Current Medical Problems/Risks of Medical Complications/Management Acute Left M2 occlusions/p IRw/ aTICI3 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 Hx of multiple ischemic strokes(2019, R MCA 05/2022, L NILA 07/2022) Severe dysphagia and global aphasia, impaired cognition, impaired mobility with right hemiplegia, impaired ADLs >Will continue indefinitely on Eliquis 5mg BID and ASA 81mg daily per Neurology recommendations > 30 day cardiac event monitoror ILR at discharge and will maintain > PT/OT/DEPUTY HEAD to eval and treat > Sertraline as below, unable to utilize modafinil or amantadine secondary to PEG Oropharyngeal Dysphagia - Repeat video swallow 08/20 did not go well thus PEG placed on 08/20 > PEG care, abdominal binder > On bolus feeds and water thr peg, NPO > consulted siebel crm developer > DEPUTY HEAD to work with patient on dysphagia. Agitation, restlessness Disturbed sleep wake cycle, insomnia Agitation continues to improve >Melatonin 5mg QHS, trazodone 75mg QHS and seroquel 12.5mg scheduled. Will take away seroquel once sleeping better, but it has helped most up to now at night > Sleep hygiene > Redirection and reorientation > protect tubes and lines > Continue am SSRI (zoloft 50 mg) 08/30 to improve daytime alertness Neurogenic bladder : Lake replaced 08/22 and fter failed voiding trial > Cont doxazosin 1mg daily (unable to use Flomax due to [place]) > Will keep Lake in until approximately 09/12. Has a history of urinary retention does have a urologist at home. If second voiding trial is not successful we will discharge home with Lake with follow-up with urology. Neurogenic bowel: constipation, incontinence > Continue senna and docusate. Add magnesium oxide. May need lactulose or suppository-follow. > May need a set bowel time if incontinence continues. H/o Seizures > Continue CHILD DEVELOPMENT ASSOCIATE TEACHER Keppra 500 mg BID HTN/ HLD CAD s/p CABG x5(2009) - Echo 08/10 with EF 60%, no WMA or ventricle dysfunction > SBP goal:less than 160 >Cont amlodipine 10mg, statin, and ASA CKD stage 3 - BaselineCr~1.8-2 > Continue to monitor, avoid nephrotoxic meds Oral thrush > initiated course of nystatin 08/28; last day 09/11 > oral cares BID Hypothyroidism >Cont CHILD DEVELOPMENT ASSOCIATE TEACHER levothyroxine Rash - Dry, red macular rash noted to entire back >Cont Emollient cream Pulmonary nodules - Incidental finding with multiple subcentimeter pulmonary nodules, indeterminan t on initial examination. No dominant pulmonary mass > Follow-up CT chest in 3 months recommended to evaluate for stability Pain Management: pain seems well controlled, heat / ice PRN, topical medication and Tylenol PRN Skin: Encourage the patient to continue to inspect their skin and perform pressu re relief. BMI: Body mass index is 31.11 kg/m. Mental Health: consult neuropsychology to provide support / counseling and monit or for depression DVT Prophylaxis: apixaban GI ppx: pepcid 20mg daily while on tube feeds. Subjective Was showing signs of physical agitation overnight however was only able to sleep for approximately 2 hours likely because of his agitation. is at bedside today and states that today he is at his baseline for interaction as well as cog nitive function since his stroke. Otherwise today evaluation is without any con cerns. Was more lethargic today but had intermittent interactions with me. Bert ble to interact verbally or follow commands. Discussed with in regards to his Lake states that previously had issues wi th retention and would require Lake on discharge. is agreeable to dischar ging home with Lake if needed. Objective Vital Signs: Last Filed Vital Signs: 24 Gladis r Range BP: 104/59 (08/30 1248) Temp: 36.4 C (97.5 F) (08/30 0344) Pulse: 63 (08/30 1248) Respirations: 20 PER MINUTE (08/30 0344) SpO2: 95 % (08/30 1248) O2 Device: None (Room air) (08/30 1248) BP: (104-134)/(59-108) Temp: [36.4 C (97.5 F)-37.1 C (98.8 F)] Pulse: [63-83] Respirations: [17 PER MINUTE-20 PER MINUTE] SpO2: [94 %-96 %] O2 Device: None (Room air) Vitals: 08/24/22 1349 08/27/22 0421 Weight: 92.8 kg (204 lb 9.4 oz) 96.7 kg (213 lb 3 oz) Intake/Output Summary: (Last 24 hours) Intake/Output Summary (Last 24 hours) at 08/30/2022 1359 Last data filed at 08/30/2022 1300 Gross per 24 hour Intake 1345 ml Output 2075 ml Net -730 ml Last Bowel Movement Date: 08/29/22 Labs--reviewed No results found for this visit on 08/24/22 (from the past 24 hour(s)). Medications: Scheduled Meds:amLODIPine (NORVASC) tablet 10 mg, 10 mg, PEG Tube, QDAY apixaban (ELIQUIS) tablet 5 mg, 5 mg, SEE ADMIN INSTRUCTIONS, BID aspirin chewable tablet 81 mg, 81 mg, PEG Tube, QDAY atorvastatin (LIPITOR) tablet 80 mg, 80 mg, PEG Tube, QDAY carvediloL (COREG) tablet 6.25 mg, 6.25 mg, PEG Tube, BID Diet Enteral Feeding Bolus, , SEE ADMIN INSTRUCTIONS, 5XDAY (6,12,15,18,22) And Water Bolus, 180 mL, PEG Tube, 5XDAY (6,12,15,18,22) docusate sodium (COLACE) oral solution 100 mg, 100 mg, PEG Tube, BID doxazosin (CARDURA) tablet 1 mg, 1 mg, PEG Tube, QDAY famotidine (PEPCID) tablet 20 mg, 20 mg, PEG Tube, QDAY levETIRAcetam (KEPPRA) oral solution 500 mg, 500 mg, PEG Tube, BID levothyroxine (SYNTHROID) tablet 125 mcg, 125 mcg, PEG Tube, QDAY(07) magnesium oxide (MAGOX) tablet 400 mg, 400 mg, PEG Tube, BID melatonin tablet 5 mg, 5 mg, PEG Tube, QHS nystatin (MYCOSTATIN) oral suspension 100,000 Units, 100,000 Units, Oral, QID senna (SENOKOT) oral syrup 17.6 mg, 10 mL, PEG Tube, QHS sertraline (ZOLOFT) tablet 50 mg, 50 mg, Oral, QDAY traZODone (DESYREL) tablet 75 mg, 75 mg, PEG Tube, QHS Continuous Infusions: PRN and Respiratory Meds:acetaminophen Q4H PRN, aluminum/magnesium hydroxide Q4H PRN, bisacodyL QDAY PRN, emollient PRN, lactulose BID PRN, ondansetron Q6H PRN, pancrelipase 20,880 Units/sodium bicarbonate 650 mg (KU CLOG DESTROYER) PRN (Orchard Worker from Rx), QUEtiapine QDAY PRN, QUEtiapine QHS PRN Physical Exam General: Alert but tired, NAD HEENT: NCAT, some tracking with eyes today Heart: Extremities well perfused Lungs: Normal work of breathing on room air, appropriate chest rise with inspira tion Abdomen: Soft. Abdominal binder in place covering peg, PEG without any issues. Extremities: No edema Neuro: Alert, non verbal, understands basic simple one step commands. Psych: appropriate affect MSK: no atrophy Labs & Therapy Notes Reviewed Ryan Seay DO ACE FIRER Associated attestation - Esme Harkins MD - 08/30/2022 2:30 PM FURNACE FIRER ATTESTATION I personally performed the tineo portions of the E/M visit, discussed case with re sident and concur with resident documentation of history, physical exam, assessm ent, and treatment plan unless otherwise noted. Agitated this morning, pushing or trying to hit nursing staff. Continues to be r edirectable. Was calm in OT though. Slept only 2 hrs last night, so possibly jus t overstimulated. Replace Lake- possibly the bladder scans, timed voids and straight caths causin g too much stimulation, possibly also lacks understanding of what's going on. Ca n trial at a later date when more oriented. Per spouse has been discharged with Lake prior as retention after hospitalization is not uncommon for him. Has not got sertraline up to now, hence that has not contributed to agitation. S tart today and follow. Check labs. Spouse here today and it will be good for therapists to get a baseline, know his interests, equipment and so on. Staff name: Esme Harkins MD Date of Service: 08/30/2022 * Zoë Kennedy - 08/30/2022 1:40 PM CST Recreation Therapy Daily Note Start Time: 1340 Stop Time: 1400 Total Time: 20 Subjective: Patient supine in bed, present. reports patient is fatigue d this session. Activity Type: 1:1 Intervention/Activity: Patient's present for discussion about patient's lei sure and recreation interests. Therapist assisted with setting up [place] a ccount. Patient handoff to DEPUTY HEAD at end of session. Assessment: Patient's reports that patient enjoys watching [employer], pet vi sits (e.g. dogs), spending time in the garage, and going on outings together (e. g. yard sales). Shared that he previously enjoyed fishing, camping, and completi ng yardwork (e.g. mowing, taking care of trees, driving tractor). Discussed sett ing up [employer] account, voiced agreement. reports that she will be ret urning to visit, therapist to follow-up with MyChart set up. [facility], spending time outside MAYRA Quintanilla Certified Frame Runner ACE FIRER * Christiana Franco OT - 08/30/2022 1:10 PM CST OCCUPATIONAL THERAPY NOTE Name: Derek Castro Jr. : 1945 Age: 77 y.o. Admission Date: 08/24/2022 LOS: 6 days Date of Service: 08/30/2022 08/30/22 1310 Time Calculation Start Time 1310 Stop Time 1330 Time Calculation 20 $$ Phys ADL Skills 1 unit Subjective Subjective Pt supine upon arrival receiving tube feed from nursing. Seems to be happy his is present. Activity Therapeutic Activities Pt's present for discussion about pt's baseline, int erests and goals. reports he typically enjoys watching [employer], and kiara ing in the garage. removed extra furniture and tripping hazards in the room as p t has become more mobile. Plan Plan Comments command following; progress transfers; RUE re-ed; visual scanning Type of Note Type of Note Daily Therapist: VIN Mason/Ludivina [id number] Date: 08/30/2022 ACE FIRER * Lady Downey MS,[facility]-DEPUTY HEAD - 08/30/2022 11:00 AM CST SPEECH-LANGUAGE PATHOLOGY 08/30/22 1100 Behavior Comments* Patient seated upright in wheelchair upon DEPUTY HEAD arrival. CO present at S LP arrival and exit this date. Dysphagia Goals Therapy Activities PO trials PO Trials Ice chips Therapy Activity Comments Attempted to complete oral care prior to po trials, jim murphy, Patient not cooperative with task at this time. Patient noted to accept t oothbrush into hand, but denied attempts to bring toothbrush to oral cavity. Pat ient noted to turn his head and seal lips upon attempts. Patient was accepting o f ice chip trials this date. Patient noted to independently initiate bringing ic e chip bolus to oral cavity. Patient consumed ice chips x3 this date. Intermitte nt throat clear appreciated post swallow. DEPUTY HEAD attempted to initiate further tria ls, however, Patient noted to push cup and DEPUTY HEAD hand away. Session discontinued a t this time. Recommend Patient remain NPO with ice chip protocol. Assessment Patient appeared agitated throughout session this date. DEPUTY HEAD provided encouragement and education throughout. Several instances of impulsive behaviors appreciated including Patient attempting to stand from wheelchair unassisted. S LP and CO provided redirection throughout. Recommend Patient remain NPO at this time. In light of quality of life, hydratio n, and to reduce oropharyngeal atrophy, patient may have ice chips (1-2 at a vanessa e) following oral care with supervision when seated upright. Plan Dysphagia: -- ice chips -- trials of thin liquids -- swallow exercises as able Language: -- establish form of communication -- yes/no accuracy -- 1-step commands -- receptive ID Lady Downey MS, [facility]-DEPUTY HEAD ACE FIRER * Christiana Franco OT - 08/30/2022 8:15 AM CST OCCUPATIONAL THERAPY NOTE Name: Derek Castro Jr. : 1945 Age: 77 y.o. Admission Date: 08/24/2022 LOS: 6 days Date of Service: 08/30/2022 08/30/22 0815 Time Calculation Start Time 0815 Stop Time 0915 Time Calculation 60 $$ Phys ADL Skills 4 units Subjective Subjective Pt supine upon arrival. Seems agreeable to showering for OT. CO prese nt. Grooming Grooming Comments Pt grabs razor while walking to shower. Attempts to shave but unable to sustain task. Allowed OT to shave face. Bathing Bath/Shower Soap and water shower/bath Bathing Position Shower - standing for ___ % tasks Bathing Comments Pt repeatedly stands during shower and eventually allowed with close contact guard assist. Pt pushes OT out of shower. Initiates cleaning L arm with RUE but does not clean R arm. Pt allows OT to clean bottom and hair. Upper Body Dressing UE Dressing Assist Minimal Assist Upper Dressing Position Sitting edge of bed Upper Dressing Comments Pt removes shirt without assist. Dons with assist for or ientation Lower Body Dressing LE Dressing Assist Moderate Assist Lower Dressing Position Sitting edge of bed Lower Dressing Comments Pt threads BLE through brief and pants without assist. A ssist to pull brief up as pt only pulling on pants. assist for socks Tub/Shower Transfer Tub/Shower Comments Pt abruptly initiates exiting shower. ambulates without sock s to edge of bed for dressing. Transfers Transfer: Assistive Device Hand Hold Assist Transfer Comment Pt performs in room ambulation with minimal assist x1-2 for saf ety. Assessment Assessment pt progressing in mobility and functional tasks however continues to demonstrate significant deficits in cognition, apraxia, and purposeful. Plan Plan Comments command following; progress transfers; RUE re-ed; visual scanning Type of Note Type of Note Daily Therapist: VIN Mason/Ludivina [id number] Date: 08/30/2022 ACE FIRER * Renae Singh RN - 08/30/2022 6:58 AM CST Patient has not been able void since catheter removed last evening, ISC performe d per protocol, left message for physician. ACE FIRER * Renae Singh RN - 08/30/2022 6:51 AM CST Acute Inpatient Rehabilitation Behavior Summary of Shift Name: Derek Castro Jr. : 1945 Age: 77 y.o. Admission Date: 08/24/2022 LOS: 6 days Date of Service: 08/30/2022 Reason for increased observation? Poor safety awareness, pulling tubes One-on-one safety watch: Yes Q15-30 minute safety watch: No Suicide precaution: No Telemonitoring: No Behavior outbursts during this shift? No Description and time(s) of event: Agitation during this shift? Yes Description and time(s) of event: episodes of restlessness and fidgeting Active suicide ideation during this shift? No Description and time(s) of event: Poor safety awareness or impulsivity during this shift? Yes Description and time(s) of event: attempts to pull tube during feeding, getting off bed without assistance, easily redirected. Noteworthy visitor interactions during this shift? no Sleep/rest patterns observed during this shift? Slept on and off through the [facility] Therapeutic interventions: Redirection, Reorientation and Stop activity Additional Comments: ACE FIRER * Hannah Coker RN - 08/29/2022 7:36 PM CST Acute Inpatient Rehabilitation Behavior Summary of Shift Name: Derek Castro Jr. : 1945 Age: 77 y.o. Admission Date: 08/24/2022 LOS: 5 days Date of Service: 08/29/2022 Reason for increased observation? Poor safety awareness, pulling tubes One-on-one safety watch: Yes Q15-30 minute safety watch: no Suicide precaution: No Telemonitoring: No Behavior outbursts during this shift? No Description and time(s) of event: N/A Agitation during this shift? No Description and time(s) of event: N/A Active suicide ideation during this shift? No Description and time(s) of event: N/A Poor safety awareness or impulsivity during this shift? Yes Description and time(s) of event: Trying to pull peg tube Noteworthy visitor interactions during this shift? None Sleep/rest patterns observed during this shift? Napped in between therapy Therapeutic interventions: Reorientation Additional Comments: None ACE FIRER * Zoë Kennedy - 08/29/2022 2:15 PM CST Recreation Therapy Daily Note Patient engaged in pet therapy visit. Patient communicated by pointing to "yes" when written on board. Therapist facilitated visit for socialization. Used right upper extremity to pet dog x2. All needs in reach on departure. Zoë Kennedy, FLUTE POLISHER Certified Frame Runner ACE FIRER * Lady Downey MS,[facility]-DEPUTY HEAD - 08/29/2022 2:00 PM CST SPEECH-LANGUAGE PATHOLOGY 08/29/22 1400 Behavior Comments* Patient seated upright in wheelchair upon DEPUTY HEAD arrival. Patent awake an d alert throughout therapy session this date. Dysphagia Goals Therapy Activities PO trials PO Trials Ice chips;Thin liquids Therapy Activity Comments Patient presented with ice chips x10 and thin liquids via cup sip x2 this date. Patient demonstrated intermittent oral holding of thin liquids this date. No overt s/s of distress appreciated with ice chip intake; h owever, consistent s/s appreciated with thin liquids via cup sip. Unable to asse ss vocal quality post trials secondary to Patient with limited verbal output thi s date. Patient noted to independently bring spoon and cup to mouth for all po t rials this date. Recommend Patient remain NPO with ice chip protocol at this vanessa e. Assessment Patient attempted to verbalize x5 this session. Verbalizations uninte lligible and garbled this date. Recommend Patient remain NPO at this time. In light of quality of life, hydratio n, and to reduce oropharyngeal atrophy, patient may have ice chips (1-2 at a vanessa e) following oral care with supervision when seated upright. Plan Dysphagia: -- ice chips -- trials of thin liquids -- swallow exercises as able Language: -- establish form of communication -- yes/no accuracy -- 1-step commands -- receptive ID Lady Downey MS, [facility]-DEPUTY HEAD ACE FIRER * Suzy Rees MS,[facility]-DEPUTY HEAD - 08/29/2022 1:30 PM CST SPEECH-LANGUAGE PATHOLOGY DAILY NOTE 08/29/22 1330 Behavior Comments* Pt seated in tilt in space wheelchair finishing OT session when DEPUTY HEAD natan lopez. Pt alert throughout session. CO present at bedside when DEPUTY HEAD exited room. Pt unable to demonstrate appropriate call light use at end of session. Pt observ ed to press space in between buttons and turn the TV on/off. However, pt was abl e to press red call light button at end of OT session ~30 minutes prior. Writing Goals Therapy Activities Trace;Copy Trace Total assistance - patient able to < 25% of the time Copy Total assistance - patient able to < 25% of the time Therapy Activity Comments When handed white board and a dry erase marker, pt beg ins draw repetitive line on white board. When instructed to "write your name" no change observed. DEPUTY HEAD then scribed pt's first name and instructed pt to copy it below. Pt continued to draw repetitive line. Hand over hand cues and total cheng t for pt to trace his first name. Pt then independently traces portion of "J" on ly. Auditory Comprehension Goals Therapy Activities Yes/no reliability Yes/No Reliability Total assistance - patient able to < 25% of the time Therapy Activity Comments Trialed use of vertical yes/no visual on L side of whi te board. Asked pt questions related to self/environment and pt inconsistently p ointed to yes/no with a marker to respond. Yes/no responses remain unreliable at this time. Pt observed to turn and look at clinician x3 in response to his first name being stated. Pt provided a variety of items and DEPUTY HEAD inquired "What do you do with this?". Pt brought toothbrush to his mouth, wiped his nose when handed a tissue, and used m ask to cover his mouth when handed a mask. Pt unable to demonstrate appropriate use of floss. When handed chapstick, pt attempting to take the lid off. Once DEPUTY HEAD assisted with removing lid, pt unable to demonstrate appropriate use. Pt then p erseverated on taking lid off of chapstick when handed a spoon. Verbal Expression Goals Therapy Activity Comments Pt exhibited brief jargon x2 during session in respons e to clinician. Pt observed to grunt and clear his throat a few times during ses miladys as well. Attempted automatic speech tasks including counting 1-10 with rhythmic tapping a nd singing along to a familiar song. However, pt made no attempts to vocalize/pa rticipate. At end of session, pt briefly waved to DEPUTY HEAD when clinician stated "Oz Reed". Assessment Pt continues to have no functional means of communication at this vanessa e with severe expressive/receptive language deficits. Plan Dysphagia: -- ice chips -- trials of thin liquids -- swallow exercises as able Language: -- establish form of communication -- yes/no accuracy -- 1-step commands -- receptive ID Suzy Rees MS, [facility] Voalte [id number] ACE FIRER * Beatris Gordon OT - 08/29/2022 1:00 PM CST OCCUPATIONAL THERAPY 08/29/22 1300 Time Calculation Start Time 1300 Stop Time 1330 Time Calculation 30 $$ Therapeutic Activity 2 unit - 30 min Subjective Subjective Patient supine in bed and agreeable to OT. Precautions Precautions Constant observation Grooming Grooming - Wash Face Assist Yes Grooming - Clare Teeth Assist Yes Grooming Assist Total Assist Grooming Position Sitting in chair Grooming Comments Pt opens toothpaste and puts on tooth brush with cueing. KALSKAG a ssist to bring to mouth and pt with tight lip closure and not opening mouth desp ite cues. Bed Mobility Bed Mobility: Supine to sit assist level Moderate assistance Bed Mobility: Supine to sit type of assist Assist with trunk;Assist with Bilater al lower extremities Bed Mobility Comments Pt requires cueing for initiation. Able to scoot self towa rd edge of bed with cueing Transfers Transfer: Assistive Device Hand Hold Assist Transfer: Sit to stand assist level Minimum assistance Transfer: Sit to stand type of assist Facilitation of weight shift;For safety Transfer: Stand to sit assist level Minimum assistance Transfer: Stand to sit type of assist Facilitation of weight shift;For safety Transfer: Stand pivot assist level Moderate assistance Transfer: Stand pivot type of assist Facilitation of weight shift;For safety Transfer Comment Cueing for sequencing and initiation. Activity Therapeutic Activities Addressing bimanual skills, pt sat at tabletop while reac tory, grasping and releasing items from fishing tackle box. Pt requires initial KALSKAG for initiation and cueing for scanning in R visual field. Pt practiced openi ng/closing tackle box with increased time. Assessment Assessment Pt progressing toward goals. Plan Plan Comments command following; progress transfers; RUE re-ed; visual scanning Type of Note Type of Note Daily Beatris Gordon OTR/L ACE FIRER * Arabella Farrell MD - 08/29/2022 12:40 PM CST ATTESTATION I personally performed the tineo portions of the E/M visit, discussed case with re codie and concur with resident documentation of history, physical exam, assessm ent, and treatment plan unless otherwise noted. Sleeping during days and need t o limit time in bed during days, to promote sleep wake cycle. Labs and VS revie wed and stable. Will initiate voiding trial and remove Lake catheter today. W ill add SSRI for stroke recovery and daytime stimulation. Staff name: Arabella Farrell MD Date of Service: 08/29/2022 Physical Medicine & Rehabilitation Progress Note Today's Date: 08/29/2022 Admission Date: 08/24/2022 LOS: 5 days Insurance: [employer] Principal Problem: Acute ischemic left MCA stroke (HCC) Active Problems: CAD (coronary artery disease) Stage 3b chronic kidney disease (HCC) Hyperlipidemia Primary hypertension Hypothyroidism Seizure disorder (HCC) History of multiple strokes Global aphasia Acute right hemiparesis (HCC) Impaired mobility and activities of daily living Risk for falls Assessment/Plan: Derek Castro Jr. is a 77 y.o. male admitted to [facility] on 08/24/2022 with the following issues: stroke Rehabilitation Plan Tentative discharge date: Rehabilitation: Patient will continue with comprehensive therapies including phy sical therapy, occupational therapy, speech & language pathology, specialized rehab nursing, neuropsychology and physiatry oversight. Goals: at ambulation level, household mobility, Minimum assistance, With caregiv er assistance Recommended therapy after discharge: Home with Assistance, and, Home Health Sett ing PT recommended equipment: OT recommended equipment: Too early to determine Daily Functional Update: Transfers Transfer: Assistive Device: Hand Hold Assist (08/29/2022 8:00 AM) Transfer: Sit to stand assist level: Minimum assistance (08/29/2022 8:00 AM) Transfer: Stand pivot assist level: With two person (08/29/2022 8:00 AM) No data recorded Gait/ Mobility Gait: Assistive Device: Body Weight Supported ([place] and passive vector) (08/28/2022 8:00 AM) GAIT: Assist Level: Two person assistance; Moderate assistance (08/29/2022 8:00 A M) Gait Distance: 100 feet (08/29/2022 8:00 AM) No data recorded No data recorded Toileting Toileting Assist: Total Assist (08/25/2022 9:45 AM) No data recorded No data recorded Dressing LE Dressing Assist: Maximum Assist (08/28/2022 11:15 AM) UE Dressing Assist: Maximum Assist (08/28/2022 11:15 AM) Current Medical Problems/Risks of Medical Complications/Management Acute Left M2 occlusions/p IRw/ aTICI3 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 Hx of multiple ischemic strokes(2019, R MCA 05/2022, L NILA 07/2022) Severe dysphagia and global aphasia, impaired cognition, impaired mobility with right hemiplegia, impaired ADLs >Will continue indefinitely on Eliquis 5mg BID and ASA 81mg daily per Neurology recommendations > 30 day cardiac event monitoror ILR at discharge and will maintain > PT/OT/DEPUTY HEAD to eval and treat Oropharyngeal Dysphagia - Repeat video swallow 08/20 did not go well thus PEG placed on 08/20 > PEG care, abdominal binder > On bolus feeds and water thr peg, NPO > consulted siebel crm developer > DEPUTY HEAD to work with patient on dysphagia. Agitation, restlessness Disturbed sleep wake cycle, insomnia Agitation continues to improve >Melatonin 5mg QHS, trazodone 75mg QHS and seroquel 12.5mg scheduled. Will take away seroquel once sleeping better, but it has helped most up to now at night > Sleep hygiene > Redirection and reorientation > protect tubes and lines > starting am SSRI (zoloft 50 mg) 08/30 to improve daytime alertness Neurogenic bladder : Lake replaced 08/22after failed voiding trial > Cont doxazosin 1mg daily (unable to use Flomax due to [place]) > We will keep Lake in until at least 08/29 when we can attempt a voiding trial at that time. > voiding trial 08/29 Neurogenic bowel: constipation, incontinence Last BM per chart 08/23, small one 08/26. > Continue senna and docusate. Add magnesium oxide. May need lactulose or suppository-follow. > May need a set bowel time if incontinence continues. H/o Seizures > Continue CHILD DEVELOPMENT ASSOCIATE TEACHER Keppra 500 mg BID HTN/ HLD CAD s/p CABG x5(2009) - Echo 08/10 with EF 60%, no WMA or ventricle dysfunction > SBP goal:less than 160 >Cont amlodipine 10mg, statin, and ASA CKD stage 3 - BaselineCr~1.8-2 > Continue to monitor, avoid nephrotoxic meds Oral thrush > initiated course of nystatin 08/28; last day 09/11 > oral cares BID Hypothyroidism >Cont CHILD DEVELOPMENT ASSOCIATE TEACHER levothyroxine Rash - Dry, red macular rash noted to entire back >Cont Emollient cream Pulmonary nodules - Incidental finding with multiple subcentimeter pulmonary nodules, indeterminan t on initial examination. No dominant pulmonary mass > Follow-up CT chest in 3 months recommended to evaluate for stability Pain Management: pain seems well controlled, heat / ice PRN, topical medication and Tylenol PRN Skin: Encourage the patient to continue to inspect their skin and perform pressu re relief. BMI: Body mass index is 31.11 kg/m. Mental Health: consult neuropsychology to provide support / counseling and monit or for depression DVT Prophylaxis: apixaban GI ppx: pepcid 20mg daily while on tube feeds. Subjective Pt seen in room this morning with CO present. Asleep in bed but arousable. Dem onstrates ability to follow simple commands. Planning to start an SSRI tomorrow morning to hopefully help with alertness and engagement during the day. Objective Vital Signs: Last Filed Vital Signs: 24 Gladis r Range BP: 106/64 (08/29 934) Temp: 36.5 C (97.7 F) (08/29 934) Pulse: 65 (08/29 934) Respirations: 18 PER MINUTE (08/29 934) SpO2: 95 % (08/29 934) O2 Device: None (Room air) (08/29 934) BP: (106-119)/(60-69) Temp: [36.3 C (97.3 F)-36.8 C (98.3 F)] Pulse: [53-65] Respirations: [17 PER MINUTE-20 PER MINUTE] SpO2: [93 %-95 %] O2 Device: None (Room air) Vitals: 08/24/22 1349 08/27/22 0421 Weight: 92.8 kg (204 lb 9.4 oz) 96.7 kg (213 lb 3 oz) Intake/Output Summary: (Last 24 hours) Intake/Output Summary (Last 24 hours) at 08/29/2022 1240 Last data filed at 08/29/2022 1142 Gross per 24 hour Intake 865 ml Output 1725 ml Net -860 ml Last Bowel Movement Date: 09/24/22 Labs--reviewed Results for orders placed or performed during the hospital encounter of 08/24/22 (from the past 24 hour(s)) CBC CELLULAR THERAPEUTICS Collection Time: 08/29/22 10:55 AM # # Low-High White Blood Cells 9.3 4.5 - 11.0 K/UL RBC 4.86 4.4 - 5.5 M/UL Hemoglobin 14.6 13.5 - 16.5 GM/DL Hematocrit 44.3 40 - 50 % MCV 91.3 80 - 100 FL MCH 30.0 26 - 34 PG MCHC 32.9 32.0 - 36.0 G/DL RDW 14.0 11 - 15 % Platelet Count 294 150 - 400 K/UL MPV 10.0 7 - 11 FL BASIC METABOLIC PANEL CELLULAR THERAPEUTICS Collection Time: 08/29/22 10:55 AM # # Low-High Sodium 139 137 - 147 MMOL/L Potassium 4.5 3.5 - 5.1 MMOL/L Chloride 104 98 - 110 MMOL/L CO2 26 21 - 30 MMOL/L Anion Gap 9 3 - 12 Glucose 128 (H) 70 - 100 MG/DL Blood Urea Nitrogen 48 (H) 7 - 25 MG/DL Creatinine 1.73 (H) 0.4 - 1.24 MG/DL Calcium 9.3 8.5 - 10.6 MG/DL eGFR 40 (L) >60 mL/min Medications: Scheduled Meds:amLODIPine (NORVASC) tablet 10 mg, 10 mg, PEG Tube, QDAY apixaban (ELIQUIS) tablet 5 mg, 5 mg, SEE ADMIN INSTRUCTIONS, BID aspirin chewable tablet 81 mg, 81 mg, PEG Tube, QDAY atorvastatin (LIPITOR) tablet 80 mg, 80 mg, PEG Tube, QDAY carvediloL (COREG) tablet 6.25 mg, 6.25 mg, PEG Tube, BID Diet Enteral Feeding Bolus, , SEE ADMIN INSTRUCTIONS, 5XDAY (6,12,15,18,22) And Water Bolus, 180 mL, PEG Tube, 5XDAY (6,12,15,18,22) docusate sodium (COLACE) oral solution 100 mg, 100 mg, PEG Tube, BID doxazosin (CARDURA) tablet 1 mg, 1 mg, PEG Tube, QDAY famotidine (PEPCID) tablet 20 mg, 20 mg, PEG Tube, QDAY levETIRAcetam (KEPPRA) oral solution 500 mg, 500 mg, PEG Tube, BID levothyroxine (SYNTHROID) tablet 125 mcg, 125 mcg, PEG Tube, QDAY(07) magnesium oxide (MAGOX) tablet 400 mg, 400 mg, PEG Tube, BID melatonin tablet 5 mg, 5 mg, PEG Tube, QHS nystatin (MYCOSTATIN) oral suspension 100,000 Units, 100,000 Units, Oral, QID QUEtiapine (SEROquel) tablet 12.5 mg, 12.5 mg, Per G Tube, QHS senna (SENOKOT) oral syrup 17.6 mg, 10 mL, PEG Tube, QHS traZODone (DESYREL) tablet 75 mg, 75 mg, PEG Tube, QHS Continuous Infusions: PRN and Respiratory Meds:acetaminophen Q4H PRN, aluminum/magnesium hydroxide Q4H PRN, bisacodyL QDAY PRN, emollient PRN, lactulose BID PRN, ondansetron Q6H PRN, pancrelipase 20,880 Units/sodium bicarbonate 650 mg (KU CLOG DESTROYER) PRN (Orchard Worker from Rx), QUEtiapine QHS PRN Physical Exam General: Alert but tired, NAD HEENT: NCAT, some tracking with eyes today Heart: Extremities well perfused Lungs: Normal work of breathing on room air, appropriate chest rise with inspira tion Abdomen: Soft. Abdominal binder in place covering peg Extremities: No edema Neuro: Alert, non verbal, understands basic simple one step commands. MAS1+ at l eft shoulder and elbow Psych: appropriate affect MSK: no atrophy Labs & Therapy Notes Reviewed Phuong Ruiz MD ACE FIRER * Rocío Leone MS,[facility]-DEPUTY [facility] - 08/29/2022 10:00 AM CST SPEECH-LANGUAGE PATHOLOGY DAILY NOTE 08/29/22 1000 Behavior Comments* Pt seated upright in wheelchair on arrival. Alert and agreeable to tx. CO present on arrival and exit - red flag handoff. Dysphagia Goals Therapy Activities PO trials PO Trials Ice chips Therapy Activity Comments DEPUTY HEAD administered ice chips x6. Pt demonstrating desiri ng to feed self, reaching for spoon. Holds with 2 hands and able to feed self wi th assistance from therapist. No overt s/s aspiration observed during trials. Pt independently begins chewing on ice upon entrance into oral cavity. No further trials due to time constraints/end of session. Recommend pt continue NPO and cur rent swallowing recs. Attention Goals Therapy Activities Sustained attention Sustained Attention Quiet environment;Moderate prompting - Patient able to 25-49 % of the time Therapy Activity Comments Pt with improved alertness today, but does require tara bal and tactile cueing to participate in tasks. Auditory Comprehension Goals Therapy Activities Command following;Receptive identification Command Following Total assistance - patient able to < 25% of the time Receptive Identification Words;Total assistance - patient able to < 25% of the time Therapy Activity Comments Attempted to engage pt in yes/no questions, receptive ID, and command following tasks. ST presented pt with whiteboard with 2 words an d asked to identify (point/raquel/look/etc). For example, pt to identify his first name out of 2 choices. When presented, pt grasped marker from DEPUTY HEAD and correctly marked on the box with his name. On 4 other trials of this task, pt incorrect ( typically marking both boxes, not meaningfully responding, etc.). Attempted basi c 1 step body commands (open mouth, wiggle fingers, etc.). Pt with 20% accuracy with verbal and tactile cues. Verbal Expression Goals Therapy Activities Nonverbal communication;Use of an augmentative communication device Therapy Activity Comments Attempted expression tasks in order to establish funct ional communication strategies for patient. Pt not able to imitate nonverbal com munication gestures - nodding head yes, shaking head no, despite max cues (verba l, tactile, use of mirror). No verbalizations during session (linguistic or nonl inguistic). Attempted imitation of yawn/sigh, throat clear, cough, mhmm, etc. Af ter model provided, pt appears to attempt to very slightly move lips/mouth/head as if he is trying to participate, but no further progress/cueing is successful. Assessment Given above, recommend Patient remain NPO at this time. In light of q uality of life, hydration, and to reduce oropharyngealatrophy, patientmay hunter ve ice chips (1-2 at a time) following oral care with supervision when seated up right. Patient will require repeat swallowing instrumentation prior to diet init iation. However, Patient not appropriate at this time due to lethargy and decrea sed command execution. Pt continues with severe communication impairment - continued intervention to es tablish functional communication strategies recommended. Plan Dysphagia: -- ice chips -- trials of thin liquids -- swallow exercises as able Language: -- establish form of communication -- yes/no accuracy -- 1-step commands -- receptive ID Rocío Leone MS CCC-DEPUTY HEAD ACE FIRER * Beatris Gordon OT - 08/29/2022 9:00 AM CST OCCUPATIONAL THERAPY 08/29/22 0900 Time Calculation Start Time 09 Stop Time 30 Time Calculation 30 $$ Therapeutic Activity 2 unit - 30 min Subjective Subjective Patient sitting in tilt in space wheelchair following PT. Precautions Precautions Constant observation;Aspiration Transfers Transfer: Assistive Device Hand Hold Assist Transfer: Sit to stand assist level Minimum assistance Transfer: Sit to stand type of assist Facilitation of weight shift;For safety Transfer: Stand to sit assist level Minimum assistance Transfer: Stand to sit type of assist Facilitation of weight shift;For safety Transfer: Stand pivot assist level Moderate assistance Transfer: Stand pivot type of assist Facilitation of weight shift;For safety;Req uires verbal cues for sequencing;Requires cues for positioning of hands Transfer Comment Cueing for sequencing and motor planning during transfer. Activity Therapeutic Activities Pt stood at elevated mat while working on identifying com mon object in field of two items. Pt required maximal cueing and KALSKAG assist assi st. Inconsistent command following Pt performed grasp, reach and release with RU E x20. Pt placing toiletry iitems in toiletry bag and able to perform without as sist with multiple repetitions. Pt initiated zipping up bag without assist. Assessment Assessment Pt progressing toward goals. Plan Plan Comments command following; progress transfers; RUE re-ed; visual scanning Type of Note Type of Note Daily Beatris Gordon OTR/L ACE FIRER * Frank Evans - 08/29/2022 8:00 AM CST PHYSICAL THERAPY 08/29/22 0800 Type of Note Type of Note Daily Time Calculation Start Time 0800 Stop Time 0900 Time Calculation 60 $$ Gait / Mobility 4 units Subjective Subjective Patient in bed upon arrival. Responded quickly to cues to sit up at b eginning of session. Precautions Precautions Constant observation;Aspiration Bed Mobility Bed Mobility: Supine to sit assist level Moderate assistance Bed Mobility: Supine to sit type of assist Assist with trunk;Assist with Bilater al lower extremities Bed Mobility: Sit to Supine Assist Level Assist of two Bed Mobility Comments Responded quickly to cues to complete supine to sit edge o f bed. Required assist to scoot to the edge initially but once cued to stand up ws able to scoot with less assist Transfers Transfer: Assistive Device Hand Hold Assist Transfer: Sit to stand assist level Minimum assistance Transfer: Sit to stand type of assist Facilitation of weight shift Transfer: Stand to sit assist level Moderate assistance Transfer: Stand to sit type of assist Facilitation of weight shift Transfer: Stand pivot assist level With two person Transfer: Stand pivot type of assist Facilitation of weight shift;Requires cues for positioning of feet;Requires verbal cues for sequencing Transfer Comment Patient had difficulty completing full turn prior to sitting in wheelchair. Requied max verbal and tactile cues to complete stand pivot transfer Gait Gait Distance 100 feet GAIT: Assist Level Two person assistance;Moderate assistance GAIT: Type of Assist Facilitation of weight shift Gait: Patterns Festinating;Shuffling;Trunk lean forward Gait: Deviation Left Decreased dorsiflexion/toe drag in swingphase;Decreased hip flexion;Decreased knee extension in stance phase;Decreased knee extension at fo ot strike;Decreased stride length;No heel strike/foot flat Gait: Deviation Right Decreased dorsiflexion/toe drag in swingphase;Decreased hi p flexion;Decreased knee extension in stance phase;Decreased knee extension at f oot strike;Decreased stride length;No heel strike/foot flat Gait Comment All gait completed in passive vector. Trialed single FIELD SERVICE TECHNICIAN POULTRY on either side, bilateral FIELD SERVICE TECHNICIAN POULTRY with a person on either side, and bilateral FIELD SERVICE TECHNICIAN POULTRY with one per son in front holding both hands and a 2nd person behind for stabilization. Patiblayne nt responded best to one person in front holding both hands because they were ab le to initaite the gait sequencing by shifting patients weight forward. Activity Vector: Activities Began with step over blocks at beginning of session but trans itioned to stepping over tape on the floor and then to just walking by end of se ssion. Patient would attempt to clear each block during the step overs but had d ifficulty clearing which resulted in the patient instead stepping on the block. During the first two trails with stepping over tape patient step length and gait speed improved. Afterwards patient seemed to lose interest and ignored the tape despite cueing. Assessment Assessment Patient tolerated gait training well. Responded best to visual and ta ctile cues to increase step length and gait speed. Patient left in wheelchair in gym with OT Plan Comments Outcome measures, HIGT, sit to stands, R side attention training, step overs Frank Evans, SPT ACE FIRER Associated attestation - Louise Mcdoanld PT - 08/29/2022 1:01 PM FURNACE FIRER I was present and involved in directing the care of the patient throughout the t herapy session. * Veronika Freeman RN - 08/28/2022 6:52 PM CST Acute Inpatient Rehabilitation Behavior Summary of Shift Name: Derek Castro Jr. : 1945 Age: 77 y.o. Admission Date: 08/24/2022 LOS: 4 days Date of Service: 08/28/2022 Reason for increased observation? Poor safety awareness, pulling tubes One-on-one safety watch: Yes Q15-30 minute safety watch: No Suicide precaution: No Telemonitoring: No Behavior outbursts during this shift? No Description and time(s) of event: Agitation during this shift? No Description and time(s) of event: Active suicide ideation during this shift? No Description and time(s) of event: Poor safety awareness or impulsivity during this shift? Yes Description and time(s) of event: Pulling peg tube Noteworthy visitor interactions during this shift? none Sleep/rest patterns observed during this shift? Napped in between therapy Therapeutic interventions: Redirection Additional Comments: ACE FIRER * Lady Downey MS,CCC-DEPUTY HEAD - 08/28/2022 2:00 PM CST SPEECH-LANGUAGE PATHOLOGY 08/28/22 1400 Missed Treatment Missed Minutes 30 Reasons for Missed Minutes Fatigue;Lethargic Attempted to see Patient for skilled speech therapy session at 14:00 and 14:30 t his date. Patient briefly opened eyes; however, unable to maintain alertness for meaningful participation in therapy session despite extensive effort. 30 makeup minutes scheduled for next date. ACE FIRER * Christiana Franco OT - 08/28/2022 11:15 AM CST OCCUPATIONAL THERAPY NOTE Name: Derek Castro Jr. : 1945 Age: 77 y.o. Admission Date: 08/24/2022 LOS: 4 days Date of Service: 08/28/2022 08/28/22 1115 Time Calculation Start Time 1115 Stop Time 1145 Time Calculation 30 $$ Phys ADL Skills 2 units Subjective Subjective Pt upright in chair upon arrival. Precautions Precautions Constant observation;Aspiration Bathing Bathing Comments CO cleans pt bottom and performs lake care while pt is in pre[place] ding. Pt stands for ~2 minutes with minimal assist. Upper Body Dressing UE Dressing Assist Maximum Assist Upper Dressing Position Sitting in chair Upper Dressing Comments Pt removes shirt with maximum cues and assist. Dons new shirt with assist for reorientation. Lower Body Dressing LE Dressing Assist Maximum Assist Lower Dressing Position Sitting in chair Lower Dressing Comments assist to thread BLE through pants, pt assists in rosalinda g pants over hips. Transfers Transfer: Assistive Device Hand Hold Assist Transfer: Sit to stand assist level Minimum assistance;Moderate assistance Transfer: Stand to sit assist level Contact guard assistance Transfer Comment Pt responds well to OT holding both hands while standing to zee id pt gripping other objects, clothes, etc. Assessment Assessment Pt continues to perform automatic actions well. Progressing in functi onal mobility. Plan Plan Comments command following; progress transfers; RUE re-ed; visual scanning Type of Note Type of Note Daily Therapist: VIN Mason/Ludivina [id number] Date: 08/28/2022 ACE FIRER * Phuong Ruiz MD - 08/28/2022 10:58 AM CST Physical Medicine & Rehabilitation Progress Note Today's Date: 08/28/2022 Admission Date: 08/24/2022 LOS: 4 days Insurance: [employer] Principal Problem: Acute ischemic left MCA stroke (HCC) Active Problems: CAD (coronary artery disease) Stage 3b chronic kidney disease (HCC) Hyperlipidemia Primary hypertension Hypothyroidism Seizure disorder (HCC) History of multiple strokes Global aphasia Acute right hemiparesis (HCC) Impaired mobility and activities of daily living Risk for falls Assessment/Plan: Derek Castro Jr. is a 77 y.o. male admitted to [facility] on 08/24/2022 with the following issues: stroke Rehabilitation Plan Tentative discharge date: Rehabilitation: Patient will continue with comprehensive therapies including phy sical therapy, occupational therapy, speech & language pathology, specialized rehab nursing, neuropsychology and physiatry oversight. Goals: at ambulation level, household mobility, Minimum assistance, With caregiv er assistance Recommended therapy after discharge: Home with Assistance, and, Home Health Sett ing PT recommended equipment: OT recommended equipment: Too early to determine Daily Functional Update: Transfers Transfer: Assistive Device: Hand Hold Assist (08/27/2022 2:00 PM) Transfer: Sit to stand assist level: Minimum assistance (08/27/2022 2:00 PM) Transfer: Stand pivot assist level: Maximum assistance; With two person (08/27/19 2:00 PM) No data recorded Gait/ Mobility Gait: Assistive Device: Hand Hold Assist; Shopping Cart (08/27/2022 9:00 A M) GAIT: Assist Level: Two person assistance (08/27/2022 9:00 AM) Gait Distance: 150 feet (08/27/2022 9:00 AM) No data recorded No data recorded Toileting Toileting Assist: Total Assist (08/25/2022 9:45 AM) No data recorded No data recorded Dressing LE Dressing Assist: Maximum Assist (08/27/2022 7:30 AM) UE Dressing Assist: Maximum Assist (08/27/2022 7:30 AM) Current Medical Problems/Risks of Medical Complications/Management Acute Left M2 occlusions/p IRw/ aTICI3 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 Hx of multiple ischemic strokes(2020, R MCA 05/2022, L NILA 07/2022) Severe dysphagia and global aphasia, impaired cognition, impaired mobility with right hemiplegia, impaired ADLs >Will continue indefinitely on Eliquis 5mg BID and ASA 81mg daily per Neurology recommendations > 30 day cardiac event monitoror ILR at discharge and will maintain > PT/OT/DEPUTY HEAD to eval and treat Dysphagia - Repeat video swallow 08/20 did not go well thus PEG placed on 08/20 > PEG care, abdominal binder > On bolus feeds and water thr peg > consulted siebel crm developer > DEPUTY HEAD to work with patient on dysphagia. Agitation, restlessness Disturbed sleep wake cycle, insomnia Agitation continues to improve >Melatonin 5mg QHS, trazodone 75mg QHS and seroquel 12.5mg scheduled. Will take away seroquel once sleeping better, but it has helped most up to now at night > Sleep hygiene > Redirection and reorientation > protect tubes and lines. Neurogenic bladder : Lake replaced 08/22 after failed voiding trial > Cont doxazosin 1mg daily (unable to use Flomax due to [place]) > We will keep Lake in until at least 08/29 when we can attempt a voiding trial at that time. Neurogenic bowel: constipation, incontinence Last BM per chart 08/23, small one 08/26. > Continue senna and docusate. Add magnesium oxide. May need lactulose or suppository-follow. > May need a set bowel time if incontinence continues. H/o Seizures > Continue CHILD DEVELOPMENT ASSOCIATE TEACHER Keppra 500 mg BID HTN/ HLD CAD s/p CABG x5(2009) - Echo 08/10 with EF 60%, no WMA or ventricle dysfunction > SBP goal:less than 160 >Cont amlodipine 10mg, statin, and ASA CKD stage 3 - BaselineCr~1.8-2 > Continue to monitor, avoid nephrotoxic meds Oral thrush > initiated course of nystatin 08/28; last day 09/11 Hypothyroidism >Cont CHILD DEVELOPMENT ASSOCIATE TEACHER levothyroxine Rash - Dry, red macular rash noted to entire back >Cont Emollient cream Pulmonary nodules - Incidental finding with multiple subcentimeter pulmonary nodules, indeterminan t on initial examination. No dominant pulmonary mass > Follow-up CT chest in 3 months recommended to evaluate for stability Pain Management: pain seems well controlled, heat / ice PRN, topical medication and Tylenol PRN Skin: Encourage the patient to continue to inspect their skin and perform pressu re relief. BMI: Body mass index is 31.11 kg/m. Mental Health: consult neuropsychology to provide support / counseling and monit or for depression DVT Prophylaxis: apixaban GI ppx: pepcid 20mg daily while on tube feeds. Subjective Pt seen in room this morning prior to PT. Intermittently pulls at PEG but no fur ther overnight agitation. Dense aphasia but able to demonstrate comprehension, f ollowing simple commands with right hand. Weekly team conference today. Tentati ve plan to discharge 09/17 with assistance from family and home health PT/OT/DEPUTY HEAD. Objective Vital Signs: Last Filed Vital Signs: 24 Gladis r Range BP: 106/68 (08/28 630) Temp: 36.3 C (97.4 F) (08/28 630) Pulse: 56 (08/28 630) Respirations: 18 PER MINUTE (08/28 630) SpO2: 94 % (08/28 630) O2 Device: None (Room air) (08/28 630) BP: (106-132)/(68-78) Temp: [36.3 C (97.4 F)-36.7 C (98.1 F)] Pulse: [56-70] Respirations: [18 PER MINUTE] SpO2: [94 %-97 %] O2 Device: None (Room air) Vitals: 08/24/22 1349 08/27/22 0421 Weight: 92.8 kg (204 lb 9.4 oz) 96.7 kg (213 lb 3 oz) Intake/Output Summary: (Last 24 hours) Intake/Output Summary (Last 24 hours) at 08/28/2022 1058 Last data filed at 08/28/2022 0900 Gross per 24 hour Intake 1405 ml Output 875 ml Net 530 ml Last Bowel Movement Date: 08/27/22 Labs--reviewed No results found for this visit on 08/24/22 (from the past 24 hour(s)). Medications: Scheduled Meds:amLODIPine (NORVASC) tablet 10 mg, 10 mg, PEG Tube, QDAY apixaban (ELIQUIS) tablet 5 mg, 5 mg, SEE ADMIN INSTRUCTIONS, BID aspirin chewable tablet 81 mg, 81 mg, PEG Tube, QDAY atorvastatin (LIPITOR) tablet 80 mg, 80 mg, PEG Tube, QDAY carvediloL (COREG) tablet 6.25 mg, 6.25 mg, PEG Tube, BID Diet Enteral Feeding Bolus, , SEE ADMIN INSTRUCTIONS, 5XDAY (6,12,15,18,22) And Water Bolus, 180 mL, PEG Tube, 5XDAY (6,12,15,18,22) docusate sodium (COLACE) oral solution 100 mg, 100 mg, PEG Tube, BID doxazosin (CARDURA) tablet 1 mg, 1 mg, PEG Tube, QDAY famotidine (PEPCID) tablet 20 mg, 20 mg, PEG Tube, QDAY levETIRAcetam (KEPPRA) oral solution 500 mg, 500 mg, PEG Tube, BID levothyroxine (SYNTHROID) tablet 125 mcg, 125 mcg, PEG Tube, QDAY(07) magnesium oxide (MAGOX) tablet 400 mg, 400 mg, PEG Tube, BID melatonin tablet 5 mg, 5 mg, PEG Tube, QHS QUEtiapine (SEROquel) tablet 12.5 mg, 12.5 mg, Per G Tube, QHS senna (SENOKOT) oral syrup 17.6 mg, 10 mL, PEG Tube, QHS traZODone (DESYREL) tablet 75 mg, 75 mg, PEG Tube, QHS Continuous Infusions: PRN and Respiratory Meds:acetaminophen Q4H PRN, aluminum/magnesium hydroxide Q4H PRN, bisacodyL QDAY PRN, emollient PRN, lactulose BID PRN, ondansetron Q6H PRN, pancrelipase 20,880 Units/sodium bicarbonate 650 mg (KU CLOG DESTROYER) PRN (Orchard Worker from Rx), QUEtiapine QHS PRN Physical Exam General: Alert but tired, NAD HEENT: NCAT, some tracking with eyes today Heart: Extremities well perfused Lungs: Normal work of breathing on room air, appropriate chest rise with inspira tion Abdomen: Soft. Abdominal binder in place covering peg Extremities: No edema Neuro: Alert, non verbal, understands basic simple one step commands Psych: appropriate affect MSK: seems to have fair strength in all 4 limbs when ambulating Labs & Therapy Notes Reviewed Phuong Ruiz MD ACE FIRER Associated attestation - Esme Harkins MD - 08/28/2022 8:10 PM FURNACE FIRER ATTESTATION I personally performed the tineo portions of the E/M visit, discussed case with re sident and concur with resident documentation of history, physical exam, assessm ent, and treatment plan unless otherwise noted. Oral thrush: start nystatin QID. If nursing unable to use this sec to severe ora l apraxia, will switch to fluconazole thr peg Slept from 11pm to 5am last night after sleep meds given. Looks less tired and m ore alert during the day now. However still sleepy to some extent. Modafinil can not be crushed and hence cannot be given thr peg; has h/o seizures and CKD, henc e did not start amantadine. Will consider antidepressant if concerns for mood. Continue CO, as even though he is not as agitated and restless, can reach for hi s tubes and lines and pull on them. DEPUTY HEAD figuring out a way to communicate. He did give me a thumbs up when instructe d(raised the index finger instead of thumb but was consistent with repetition) Staff name: Esme Harkins MD Date of Service: 08/28/2022 * Brittany Rowe, OT - 08/28/2022 10:30 AM CST OCCUPATIONAL THERAPY NOTE Name: Derek Peggy Castro Jr. : 1945 Age: 77 y.o. Admission Date: 08/24/2022 LOS: 4 days Date of Service: 08/28/2022 08/28/22 1030 Time Calculation Start Time 1030 Stop Time 1100 Time Calculation 30 $$ Therapeutic Activity 2 unit - 30 min History Reason For Admission Acute ischemic left MCA stroke Previous Medical History CAD s/p CABG, CKD, HTN, multiple ischemic CVAs in rigth NILA, MCA territories, Left pariental lobe and bilateral cereberllar hemispheres (2019, May 2022, and Jul 2022)- patient has mild left sided ataxia Subjective Subjective Pt upright in chair upon arrival. Agreeable to OT session. Precautions Precautions Constant observation;Aspiration Activity Therapeutic Activities Session focused on command following. While seated in rios ir, pt given demonstration, visual, and tactile cueing to place pegs on pegboard . Pt independently places ~10% of pegs with RUE, requires hand over hand initiat ion for majority of pegs, and hand over hand to push all pegs into their holes. Pt removes ~50% of pegs and places into container independently; pt perseverativ e on attempting to place entire pegboard onto container. Attempted throwing dice with pt however unreceptive despite max demonstration and KALSKAG assist; instead is perseverative on placing tissue box on top of dice container. Performed table washing activity with RUE- pt able to initiate washing table with only one verba l cue however requires max cueing and KALSKAG assist for task continuity. Pt demos g ood visual scanning throughout table washing activity. Assessment Assessment Pt progressing toward goals. Plan Plan Comments command following; progress transfers; RUE re-ed; visual scanning Type of Note Type of Note Daily Therapist: VIN Younger/Ludivina Date: 08/28/2022 ACE FIRER * Valery Weber, PT - 08/28/2022 9:23 AM CST Does have some automatic actions with ADL tasks Improving tolerance to increased gait distance completion ACE FIRER * Lady oDwney MS,[facility]-DEPUTY HEAD - 08/28/2022 9:00 AM CST SPEECH-LANGUAGE PATHOLOGY 08/28/22 0900 Behavior Comments* Patient seated upright in wheelchair upon DEPUTY HEAD arrival. Patient appeare d drowsy throughout, briefly closing eyes during session. Patient easily redirec earline with encouragement and verbal cues. Dysphagia Goals Therapy Activities PO trials PO Trials Ice chips Therapy Activity Comments Oral care completed in an attempt to reduce potential aspiration of bacteria-laden oropharyngeal secretions prior to po trials. To inc rease oral acceptance, [id number] approach utilized. DEPUTY HEAD aided Patient in ho lding toothbrush and cleaning surface of teeth, gums, and tongue. Patient's surf ritu of tongue appeared to have white coating this date. Unable to further inspec t due to Patient with decreased command execution. RN notified. Following oral c are, ice chip trials presented this date. Patient consumed approximately 5 ice c hips this date. 1 instance of delayed throat clear response appreciated at end o f session this date. No other overt s/s of distress appreciated with trials. Att empted to initiate po trials of thin liquids, however, Patient noted to seal lip s and turn head. No swallow initiation appreciated on final ice chip trial, requ iring removal of bolus via yankauer suction. Trials discontinued at that time. R ecommend Patient remain NPO at this time. Assessment Given above, recommend Patient remain NPO at this time. In light of q uality of life, hydration, and to reduce oropharyngeal atrophy, patient may have ice chips (1-2 at a time) following oral care with supervision when seated upri ght. Patient will require repeat swallowing instrumentation prior to diet initia tion. However, Patient not appropriate at this time due to lethargy and decrease d command execution. Plan Dysphagia: -- ice chips -- trials of thin liquids -- swallow exercises as able Language: -- establish form of communication -- yes/no accuracy -- 1-step commands -- receptive ID Lady Downey MS, CCC-DEPUTY HEAD ACE FIRER * Louise Mcdonald PT - 08/28/2022 8:06 AM CST Plan Discharge home with assistance from and son, HH PT/OT/DEPUTY HEAD DME TBD ACE FIRER * Frank Evans - 08/28/2022 8:00 AM CST PHYSICAL THERAPY 08/28/22 0800 Type of Note Type of Note Daily Time Calculation Start Time 0800 Stop Time 0900 Time Calculation 60 $$ Gait / Mobility 4 units Subjective Subjective Patient in bed with physician present upon arrival. Sat up to get out of bed when prompted by therapist. nursing home aide present throughout Precautions Precautions Aspiration;Constant observation Bed Mobility Bed Mobility: Supine to sit assist level Moderate assistance Bed Mobility: Supine to sit type of assist Assist with trunk;Assist with Bilater al lower extremities Bed Mobility Comments Able to initiate supine to sit edge of bed transfer with a ssist on trunk and legs and head of bed elevated. Transfers Transfer: Assistive Device Hand Hold Assist;None Transfer: Sit to stand assist level Minimum assistance Transfer: Sit to stand type of assist Facilitation of weight shift Transfer: Stand to sit assist level Moderate assistance Transfer: Stand to sit type of assist Facilitation of weight shift;Facilitation of trunk Transfer: Stand pivot assist level With two person Transfer: Stand pivot type of assist Facilitation of weight shift Transfer Comment Assist with weight shift for initiation of transfer during sit to stands. Required assist to pull hips back during stand to sit. Max tactile an d verbal cues during stand pivot to complete Gait Gait Distance 150 feet GAIT: Assist Level Total assistance GAIT: Type of Assist Facilitation of trunk;Facilitation of weight shift Gait: Assistive Device Body Weight Supported ([place] and passive vector) Gait: Patterns Festinating;Shuffling;Trunk lean forward Gait: Deviation Left Decreased dorsiflexion/toe drag in swingphase;Decreased hip flexion;Decreased knee extension in stance phase;Decreased knee extension at fo ot strike;Decreased stride length;No heel strike/foot flat Gait: Deviation Right Decreased dorsiflexion/toe drag in swingphase;Decreased hi p flexion;Decreased knee extension in stance phase;Decreased knee extension at f oot strike;Decreased stride length;No heel strike/foot flat Gait Comment Initially trialed gait in rifton but patient demonstrated very shor t step length, strong forward lean, and shuffling gait pattern. Added visual cue for LE's to reach towards and metronome for auditory cue but patients gait did not improve. Also removed armrests and adjusted harness for more posterior suppp ort but patients forward lean increased following. Transitioned to gait in passi ve vector with small step overs. Patient responed well to physical obstacle with decreased speed, increased control, and attempt for increased step length to cl ear obstacle. Completed x5 repetitions with one rest break in the middle. Knee b uckling increased towards the end due to fatigue Activity Moderate/High Intensity Gait Training (Placed HR monitor on patient to attempt HIGT but patients HR never reached zone 1 during gait.) Assessment Assessment Patient responded best to physical obstacle navigation during gait ra ther than verbal or tactile cueing. Patient has a strong forward lean and very s hort quick steps on ball of foot during gait. Plan Comments Outcome measures, HIGT, sit to stands, R side attention training, step overs Frank Evans, ANTHONY ACE FIRER Associated attestation - Louise Mcdonald, PT - 08/28/2022 3:28 PM FURNACE FIRER I was present and involved in directing the care of the patient throughout the t herapy session. * Renae Singh RN - 08/28/2022 7:31 AM CST Acute Inpatient Rehabilitation Behavior Summary of Shift Name: Derek Castro Jr. : 1945 Age: 77 y.o. Admission Date: 08/24/2022 LOS: 4 days Date of Service: 08/28/2022 Reason for increased observation? Poor safety awareness, pulling tubes, impulsiv ity One-on-one safety watch: Yes Q15-30 minute safety watch: No Suicide precaution: No Telemonitoring: No Behavior outbursts during this shift? No Description and time(s) of event: Agitation during this shift? No Description and time(s) of event: Active suicide ideation during this shift? No Description and time(s) of event: Poor safety awareness or impulsivity during this shift? Yes Description and time(s) of event: patient reaching out for PEG tube during feedi ng, easily redirected. Noteworthy visitor interactions during this shift? none Sleep/rest patterns observed during this shift? Patient observed sleeping well m ost of the night after HS medications. Therapeutic interventions: Redirection Additional Comments: ACE FIRER * Valery Weber, PT - 08/27/2022 3:42 PM CST Offer ice chips per protocol posted in pt's room Prioritize frequent, thorough oral care Encourage ADL performance as able Promote OOB positioning including up to chair for all meal times ACE FIRER * Lady Downey MS,CCC-DEPUTY HEAD - 08/27/2022 3:42 PM CST Language: -- Limited assessment due to poor command execution and limited verbal output -- Unable to fully assess receptive/expressive language skills at this time due to limited verbal output/participation - Will continue to assess language abilities through informal/dynamic asses sment and formal assessment as able -- No reliable form of communication established at this time - trialed nonverbal gestures and yes/no communication board Dysphagia: -- Pt is NPO with PEG -- Targeting PO trials and dysphagia exercises as able -- Plan for repeat swallowing instrumentation midweek (Saturday or ) * Frank Evans - 08/27/2022 2:00 PM CST PHYSICAL THERAPY 08/27/22 1400 Type of Note Type of Note Daily Time Calculation Start Time 1400 Stop Time 1430 Time Calculation 30 $$ PT Therapeutic Activity 2 units Subjective Subjective Patient in wheelchair in gym following OT session upon arrival. nuclear fuel processing technician present throughout for assistance Precautions Precautions Aspiration;Constant observation Transfers Transfer: Assistive Device Hand Hold Assist Transfer: Sit to stand assist level Minimum assistance Transfer: Sit to stand type of assist Facilitation of weight shift Transfer: Stand to sit assist level Minimum assistance Transfer: Stand to sit type of assist Facilitation of weight shift Transfer: Stand pivot assist level Maximum assistance;With two person Transfer: Stand pivot type of assist Facilitation of weight shift;Facilitation o f trunk;Assist with Bilateral lower extremities;Requires cues for positioning of feet;Requires verbal cues for sequencing Transfer Comment Assist with weight shift for initiation of transfer during sit to stands. Required max assist during stand pviot to sequence and initiate trans shawn Activity PT Therapeutic Activities Sit to stands to elevated mat with cone stacking activ ity. Emphasis on upright posture and standing tolerance. Tactile cues to maintai n midline during stand portion Assessment Assessment Patient demonstrates adequate LE strength for sit to stand transfers and good staning tolerance this session. Patient left in bed with bed alarm set, all needs in reach, and CO present Plan Comments Obtain PLOF and home environment info, outcome measures, HIGT, sit to s [place], R side attention training Frank Evans, SPT ACE FIRER Associated attestation - Louise Mcdonald, PT - 08/27/2022 4:00 PM FURNACE FIRER I was present and involved in directing the care of the patient throughout the t herapy session. * Christiana Franco OT - 08/27/2022 1:30 PM CST OCCUPATIONAL THERAPY NOTE Name: Derek Castro Jr. : 1945 Age: 77 y.o. Admission Date: 08/24/2022 LOS: 3 days Date of Service: 08/27/2022 08/27/22 1330 Time Calculation Start Time 1330 Stop Time 1400 Time Calculation 30 $$ Therapeutic Activity 2 unit - 30 min Subjective Subjective Pt upright in chair upon arrival. Agreeable to OT session. Precautions Precautions Aspiration;Constant observation Transfers Transfer: Assistive Device Hand Hold Assist Transfer: Sit to stand assist level Moderate assistance Transfer Comment moderate assist for standing this session. Intermittent contact guard for standing balance during tasks. Activity Therapeutic Activities BITS activities in sitting and standing. Pt seems to unde rstand goal of visual scanning activity, reaching and scanning for dots ~50% of the time. Assessment Assessment Pt demonstrating improved mobility and goal oriented tasks this after noon. Plan Plan Comments command following; progress transfers; RUE re-ed; visual scanning Type of Note Type of Note Daily Therapist: VIN Mason/Ludivina [id number] Date: 08/27/2022 ACE FIRER * Zoë Kennedy - 08/27/2022 11:15 AM CST Recreation Therapy Assessment Start Time: 1115 Stop Time: 1135 Total time: 20 Subjective: Patient seated in wheelchair. Patient unable to voice agreement to s ession due to aphasia. Encounter Type: Evaluation Patient bio: Age: 77 Current residence: [place], [place] Patient Interests TV/movies: News Listening to music Spending time outside Assessment: Patient attempted to engage in discussing leisure and recreation int erests. Patient would communicate by pointing to "yes" and "no" on written commu nication board, responses were variable. Patient was not responsive to use of no nverbal gestures for yes/no questions. When asked if patient would like to rest, patient then nodded his head. Able to answer three questions about leisure and recreation interests. Therapist provided stress ball, patient then grabbed ball with left upper extremity. Will follow-up to discuss additional leisure and rec reation interests. Patient Goal: Patient unable to participate in goal setting. Plan: Therapist will follow-up with patient twice a week for 30 minutes. Will fo llow-up with resources at an appropriate time. CHANDRAKANT QuintanillaS Certified Frame Runner ACE FIRER * Esme Harkins MD - 08/27/2022 10:05 AM CST Physical Medicine & Rehabilitation Progress Note Today's Date: 08/27/2022 Admission Date: 08/24/2022 LOS: 3 days Insurance: [employer] Principal Problem: Acute ischemic left MCA stroke (HCC) Active Problems: CAD (coronary artery disease) Stage 3b chronic kidney disease (HCC) Hyperlipidemia Primary hypertension Hypothyroidism Seizure disorder (HCC) History of multiple strokes Global aphasia Acute right hemiparesis (HCC) Impaired mobility and activities of daily living Risk for falls Assessment/Plan: Derek Castro Jr. is a 77 y.o. male admitted to [facility] on 08/24/2022 with the following issues: stroke Rehabilitation Plan Tentative discharge date: Rehabilitation: Patient will continue with comprehensive therapies including phy sical therapy, occupational therapy, speech & language pathology, specialized rehab nursing, neuropsychology and physiatry oversight. Goals: at ambulation level, household mobility, Minimum assistance, With caregiv er assistance Recommended therapy after discharge: Home with Assistance, and, Home Health Sett ing PT recommended equipment: OT recommended equipment: Too early to determine Daily Functional Update: Transfers Transfer: Assistive Device: None (08/25/2022 1:00 PM) Transfer: Sit to stand assist level: Moderate assistance (08/25/2022 1:00 PM) Transfer: Stand pivot assist level: Moderate assistance; Minimum assistance (Nazanin baumann, completed one transfer with moderate assist, one with min assist. Per OT patient requiring more assistance in the morning session. Patient most likely will be vairable due to aphasia and lethargy.) (08/25/2022 1:00 PM) No data recorded Gait/ Mobility Gait: Assistive Device: -- ([place]) (08/25/2022 1:00 PM) GAIT: Assist Level: Total assistance (08/25/2022 1:00 PM) Gait Distance: 100 feet (80' x 10) (08/25/2022 1:00 PM) No data recorded No data recorded Toileting Toileting Assist: Total Assist (08/25/2022 9:45 AM) No data recorded No data recorded Dressing LE Dressing Assist: Total Assist (08/25/2022 9:45 AM) UE Dressing Assist: Total Assist (08/25/2022 9:45 AM) Current Medical Problems/Risks of Medical Complications/Management Acute Left M2 occlusions/p IRw/ aTICI3 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 Hx of multiple ischemic strokes(2019, R MCA 05/2022, L NILA 07/2022) Severe dysphagia and global aphasia, impaired cognition, impaired mobility with right hemiplegia, impaired ADLs >Will continue indefinitely on Eliquis 5mg BID and ASA 81mg daily per Neurology recommendations > 30 day cardiac event monitoror ILR at discharge and will maintain > PT/OT/DEPUTY HEAD to eval and treat Dysphagia - Repeat video swallow 08/20 did not go well thus PEG placed on 08/20 > PEG care, abdominal binder > On bolus feeds and water thr peg > consulted siebel crm developer > DEPUTY HEAD to work with patient on dysphagia. Agitation, restlessness Disturbed sleep wake cycle, insomnia Agitation continues to improve >Melatonin 5mg QHS, trazodone 75mg QHS and seroquel 12.5mg scheduled. Will take away seroquel once sleeping better, but it has helped most up to now at night > Sleep hygiene > Redirection and reorientation > protect tubes and lines. Neurogenic bladder : Lake replaced 08/22 after failed voiding trial > Cont doxazosin 1mg daily (unable to use Flomax due to [place]) > We will keep Lake in until at least 08/29 when we can attempt a voiding trial at that time. Neurogenic bowel: constipation, incontinence Last BM per chart 08/23, small one 08/26. > Continue senna and docusate. Add magnesium oxide. May need lactulose or suppository-follow. > May need a set bowel time if incontinence continues. H/o Seizures > Continue CHILD DEVELOPMENT ASSOCIATE TEACHER Keppra 500 mg BID HTN/ HLD CAD s/p CABG x5(2009) - Echo 08/10 with EF 60%, no WMA or ventricle dysfunction > SBP goal:less than 160 >Cont amlodipine 10mg, statin, and ASA CKD stage 3 - BaselineCr~1.8-2 > Continue to monitor, avoid nephrotoxic meds Hypothyroidism >Cont CHILD DEVELOPMENT ASSOCIATE TEACHER levothyroxine Rash - Dry, red macular rash noted to entire back >Cont Emollient cream Pulmonary nodules - Incidental finding with multiple subcentimeter pulmonary nodules, indeterminan t on initial examination. No dominant pulmonary mass > Follow-up CT chest in 3 months recommended to evaluate for stability Pain Management: pain seems well controlled, heat / ice PRN, topical medication and Tylenol PRN Skin: Encourage the patient to continue to inspect their skin and perform pressu re relief. BMI: Body mass index is 31.11 kg/m. Mental Health: consult neuropsychology to provide support / counseling and monit or for depression DVT Prophylaxis: apixaban GI ppx: pepcid 20mg daily while on tube feeds. Subjective Seen in the hallway with PT, taking a rest break in the wc. Made eye contact jae efly when I greeted him. No speech output, tried to move his lips some. Awake, t ired looking. Then ambulated with PT and walker, short quick steps, steers to le ft. Objective Vital Signs: Last Filed Vital Signs: 24 Gladis r Range BP: 105/65 (08/27 0836) Temp: 36.9 C (98.5 F) (08/27 0421) Pulse: 67 (08/27 1003) Respirations: 16 PER MINUTE (08/27 100) SpO2: 94 % (08/27 100) O2 Device: None (Room air) (08/27 1002) BP: (105-135)/(65-79) Temp: [36.9 C (98.5 F)] Pulse: [63-71] Respirations: [16 PER MINUTE-18 PER MINUTE] SpO2: [93 %-94 %] O2 Device: None (Room air) Vitals: 08/24/22 1349 08/27/22 0421 Weight: 92.8 kg (204 lb 9.4 oz) 96.7 kg (213 lb 3 oz) Intake/Output Summary: (Last 24 hours) Intake/Output Summary (Last 24 hours) at 08/27/2022 1005 Last data filed at 08/27/2022 1000 Gross per 24 hour Intake 3485 ml Output 1875 ml Net 1610 ml Last Bowel Movement Date: 08/23/22 Labs--reviewed No results found for this visit on 08/24/22 (from the past 24 hour(s)). Medications: Scheduled Meds:amLODIPine (NORVASC) tablet 10 mg, 10 mg, PEG Tube, QDAY apixaban (ELIQUIS) tablet 5 mg, 5 mg, SEE ADMIN INSTRUCTIONS, BID aspirin chewable tablet 81 mg, 81 mg, PEG Tube, QDAY atorvastatin (LIPITOR) tablet 80 mg, 80 mg, PEG Tube, QDAY carvediloL (COREG) tablet 6.25 mg, 6.25 mg, PEG Tube, BID Diet Enteral Feeding Bolus, , SEE ADMIN INSTRUCTIONS, 5XDAY (6,12,15,18,22) And Water Bolus, 180 mL, PEG Tube, 5XDAY (6,12,15,18,22) docusate sodium (COLACE) oral solution 100 mg, 100 mg, PEG Tube, BID doxazosin (CARDURA) tablet 1 mg, 1 mg, PEG Tube, QDAY levETIRAcetam (KEPPRA) oral solution 500 mg, 500 mg, PEG Tube, BID levothyroxine (SYNTHROID) tablet 125 mcg, 125 mcg, PEG Tube, QDAY(07) melatonin tablet 5 mg, 5 mg, PEG Tube, QHS QUEtiapine (SEROquel) tablet 12.5 mg, 12.5 mg, Per G Tube, QHS senna (SENOKOT) oral syrup 17.6 mg, 10 mL, PEG Tube, QHS traZODone (DESYREL) tablet 75 mg, 75 mg, PEG Tube, QHS Continuous Infusions: PRN and Respiratory Meds:acetaminophen Q4H PRN, aluminum/magnesium hydroxide Q4H PRN, bisacodyL QDAY PRN, emollient PRN, milk of magnesia (CONC) Q4H PRN, ondans etron Q6H PRN, pancrelipase 20,880 Units/sodium bicarbonate 650 mg (KU SANAZ TYLER) PRN (Orchard Worker from Rx), QUEtiapine QHS PRN Physical Exam General: Alert but tired, NAD HEENT: NCAT, some tracking with eyes today Heart: Extremities well perfused Lungs: Normal work of breathing on room air, appropriate chest rise with inspira tion Abdomen: Soft, non-distended Extremities: No edema Neuro: Alert, non verbal, understands basic simple one step commands Psych: appropriate affect MSK: seems to have fair strength in all 4 limbs when ambulating Labs & Therapy Notes Reviewed ACE FIRER * David Horvath - 08/27/2022 10:05 AM CST RT Adult Assessment Note NAME:Derek Castro Jr. :1945 AGE: 77 y.o. ADMISSION DATE: 08/24/2022 DAYS ADMITTED: LOS: 3 days RT Treatment Plan: Protocol Plan: Procedures CPAP/BiPAP: CPAP SpO2: Continuous (Document SpO2 result Qshift) Additional Comments: Impressions of the patient: No signs of distress, resting comfortably on room ai r. Intervention(s)/outcome(s): RT eval and assessment. Patient education that was completed: None Recommendations to the care team: None Vital Signs: Pulse: 67 RR: 16 PER MINUTE SpO2: 94 % O2 Device: None (Room air) Liter Flow: O2%: Breath Sounds: Decreased;Clear (Implies normal) Respiratory Effort: Non-Labored ACE FIRER * Lady Downey MS,[facility]-DEPUTY HEAD - 08/27/2022 10:00 AM CST SPEECH-LANGUAGE PATHOLOGY 08/27/22 1000 Behavior Comments* Patient seated upright in wheelchair upon DEPUTY HEAD arrival. CO present upon DEPUTY HEAD arrival and exit. Dysphagia Goals Therapy Activities PO trials PO Trials Ice chips;Thin liquids Therapy Activity Comments CO reported oral care completed prior to DEPUTY HEAD arrival. Patient presented with ice chips and thin liquids this date. Patient consumed ap proximately 10 ice chips and 1 sip of thin liquids via cup sip. Patient demonstr ated inconsistent, weak throat clear following consumption this date. Patient se aled lips and turned head when DEPUTY HEAD attempted to present further trials this date ; therefore, po trials discontinued at that time. Recommend Patient remain NPO a t this time. In light of quality of life, hydration, and to reduce oropharyngeal atrophy, patient may have ice chips (1-2 at a time) following oral care with kay ping when seated upright. Patient Will Participate in Instrumental Swallow Evaluation to Determine Appropr iate Diet Recommendations with Complete independence (Limited assessment due to recent admit.) Patient Will Demonstrate Compensatory Swallow Strategies to Eliminate S/S of Asp iration with Moderate prompting - patient able to 25-49% of the time (Limited assessment due to recent admit.) Patient Will Tolerate PO Trials to Advance Diet with Minimal prompting - patient able to 50-74% of the time (Limited assessment due to recent admit.) Motor Speech - Apraxia Goals Patient Will Demonstrate Oral Motor Movements with Total assistance - Patient ab le to < 25% of the time (Limited assessment due to recent admit.) Patient Will Perform Automatic Speech Tasks with Total assistance - Patient able to < 25% of the time (Limited assessment due to recent admit.) Patient Will Use Common Words/Phrases During Interactions with Staff with Total assistance - Patient able to < 25% of the time (Limited assessment due to recent admit.) Auditory Comprehension Goals Therapy Activities Command following;Yes/no reliability;Receptive identification Command Following 1-part Therapy Activity Comments Attempted to engage Patient in yes/no questions, unit receptionist tive identification, and command following tasks to assess auditory comprehensio n skills. Initiated written yes/no communication board, Patient utilized board a ppropriately in 2/8 trials this date. In remaining trials, Patient noted to poin t to space in between "yes" and "no" or form no response at all. Attempted to engage Patient in simple 1-step body commands. Patient did not atte mpt to follow commands in trials this date despite verbal and tactile cues and v isual model. Given familiar items within FO1, Patient identified items in 1/5 trials this ejremie e. Given familiar items within FO2, Patient did not attempt to identify items. Patient Will Respond to [place] Yes/No Questions with Total assistance - Patien t able to < 25% of the time (Limited assessment due to recent admit.) Verbal Expression Goals Therapy Activities Nonverbal communication;Verbal description Therapy Activity Comments Attempted to engage Patient in verbal expression tasks this date. Presented Patient with picture scene; however, Patient made no attem pt to verbalize, though was noted to scan picture. DEPUTY HEAD then attempted to trial use of nonverbal communication including use of head nod/shake and thumbs up/down. Patient did not attempt to utilize nonverbal gest ures despite model and verbal cues. Patient Will Use Nonverbal Communication Modalities to Express Wants and Needs w ith Total assistance - Patient able to < 25% of the time (Limited assessment due to recent admit.) Patient Will Use Single Words and/or Short Phrases to Express Daily Wants and Ne eds with Total assistance - Patient able to < 25% of the time (Limited assessment due to recent admit.) Patient Will Respond to Close Ended Questions with Total assistance - Patient ab le to < 25% of the time (Limited assessment due to recent admit.) Assessment Unable to establish reliable form of communication this date. Will co ntinue to assess expressive and receptive language skills via dynamic assessment and standardized assessment as able. Plan Dysphagia: -- ice chips -- trials of thin liquids Language: -- establish form of communication -- yes/no accuracy -- 1-step commands -- receptive ID Lady Downey MS, CCC-DEPUTY HEAD ACE FIRER * Frank Evans - 08/27/2022 9:00 AM CST PHYSICAL THERAPY 08/27/22 0900 Type of Note Type of Note Daily Time Calculation Start Time 0900 Stop Time 1000 Time Calculation 60 $$ Gait / Mobility 4 units Subjective Subjective Patient in wheelchair in room with CO present upon arrival. Patient u nable to endorse agreement to begin therapy session due to aphasia Precautions Precautions Aspiration;Constant observation Cognitive Patient Behavior Calm Cognition Decrease attention/ concentration;Follows Commands;Impulsive Transfers Transfer: Assistive Device None Transfer: Sit to stand assist level Moderate assistance Transfer: Sit to stand type of assist Facilitation of weight shift;Facilitation of trunk;For safety Transfer: Stand to sit assist level Moderate assistance Transfer: Stand to sit type of assist Facilitation of weight shift;For safety Transfer: Stand pivot assist level Moderate assistance Transfer: Stand pivot type of assist Facilitation of weight shift;Requires cues for positioning of feet;For safety Transfer Comment Moderate assist with lift and for trunk uprightness during reinoso sfers. Required heavy tactile weight shift cues during stand pivot to complete s teps for turning. Gait Gait Distance 150 feet GAIT: Assist Level Two person assistance GAIT: Type of Assist Facilitation of trunk;Facilitation of weight shift;For safe ty;Requires cues for step length Gait: Assistive Device Hand Hold Assist;Shopping Cart Gait: Patterns Decreased gait velocity;Shuffling;Trunk lean forward Gait: Deviation Left Decreased hip flexion;Decreased knee extension in stance ph ase;Decreased stride length;No heel strike/foot flat Gait: Deviation Right Decreased hip flexion;Decreased knee extension in stance p hase;Decreased stride length;No heel strike/foot flat Gait Comment Completed gait with two person assist and wheelchair follow. Requir ed max assist to facilitate upright posture, weight shift, and midline orientati on. Began with FIELD SERVICE TECHNICIAN POULTRY x2 and progressed to shopping cart and assist x2 for posture and cart management. Required maximal verbal and tactile cues to increase step l ength, upright posture, and maintain straight path. Stairs Stair: Assist Level Two person assist Stairs: Number Climbed 4 Stairs Management Technique Non-reciprocal Stairs: Assistive Device Two Rails Stairs Comment Completed stairs with modA x2 with difficulty placing foot fully on step. Required max tactile cues of bringing hands forwards on railing to init iate descent. Assessment Assessment Patient tolerated gait without rifton well. Requires simple direct co mmands to complete tasks and responds better to tactile cues over verbal cues Plan Comments Obtain PLOF and home environment info, check how lolis marcial transfers a re going with nursing, outcome measures, HIGT, sit to stands, R side attention t raining Frank Evans, SPT ACE FIRER Associated attestation - Louise Mcdonald, PT - 08/27/2022 3:22 PM FURNACE FIRER I was present and involved in directing the care of the patient throughout the t herapy session. * Christiana Franco, OT - 08/27/2022 7:30 AM CST OCCUPATIONAL THERAPY NOTE Name: Derek Castro Jr. : 1945 Age: 77 y.o. Admission Date: 08/24/2022 LOS: 3 days Date of Service: 08/27/2022 08/27/22 0730 Time Calculation Start Time 0730 Stop Time 0830 Time Calculation 60 $$ Phys ADL Skills 2 units $$ Therapeutic Activity 2 unit - 30 min Subjective Subjective Pt supine upon arrival. CO present. reports pt slept well overnight. Eating Eating Comments Pt holds cup with ice chips and spoon appropriately in BUE. Pt b rings spoon to mouth several times but does not put the spoon in his mouth. Atte mpted to provide total assist but pt does not open mouth. Grooming Grooming - Wash Face Assist Yes Grooming - Clare Teeth Assist Yes Grooming Assist Total Assist Grooming Comments Pt opens toothpaste and puts on toothbrush with set up assist. Brings toothbrush to mouth but does not put in mouth (similar to ice chips). At tempted to provide assist but pt does not open mouth and places toothbrush/ toot hpaste aside. OT washes face with washcloth. Upper Body Dressing UE Dressing Assist Maximum Assist Upper Dressing Position Sitting edge of bed Upper Dressing Comments Pt initially attempts to don shirt as pants however dons with maximum assist once corrected. Automatic processes intact with this task o nce cued. Lower Body Dressing LE Dressing Assist Maximum Assist Lower Dressing Position Sitting edge of bed Lower Dressing Comments assist to thread BLE through brief and pants. moderate a ssist to stand and pt assists in pulling pants up over hips. Toileting Toileting Comments Pt frequently pulls at [place]. Transfers Transfer: Assistive Device Hand Hold Assist Transfer: Stand pivot assist level Moderate assistance;With two person Transfer Comment bed to wheelchair Activity Therapeutic Activities Pt stands at tall mat reaching for rings and placing on p osts. Repeatedly sits back in wheelchair requiring encouragement to maintain sta nding. Intermittent command following with placing/reaching for rings. R inatten tion/field noted during task. Assessment Assessment Pt limited by poor command following. Plan Plan Comments command following; progress transfers; RUE re-ed; visual scanning Type of Note Type of Note Daily Therapist: VIN Mason/Ludivina [id number] Date: 08/27/2022 ACE FIRER * Asmita Blas RN - 08/26/2022 7:29 AM CST Acute Inpatient Rehabilitation Behavior Summary of Shift Name: Derek Castro Jr. : 1945 Age: 77 y.o. Admission Date: 08/24/2022 LOS: 2 days Date of Service: 08/26/2022 Reason for increased observation? Poor safety awareness, decreased attention One-on-one safety watch: Yes Q15-30 minute safety watch: No Suicide precaution: No Telemonitoring: No Behavior outbursts during this shift? No Description and time(s) of event: NA Agitation during this shift? No Description and time(s) of event: NA Active suicide ideation during this shift? No Description and time(s) of event: NA Poor safety awareness or impulsivity during this shift? Yes Description and time(s) of event: Pt placed hands on PEG during TF, but is redi rectable and follows commands. Pt did not pull at PEG nor lake. Noteworthy visitor interactions during this shift? None Sleep/rest patterns observed during this shift? Please see NN. 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 Therapeutic interventions: Distraction, reorientation, redirection Additional Comments: Please see NN. ACE FIRER * Esme Harkins MD - 08/26/2022 6:58 AM CST Physical Medicine & Rehabilitation Progress Note Today's Date: 08/26/2022 Admission Date: 08/24/2022 LOS: 2 days Insurance: [employer] Principal Problem: Acute ischemic left MCA stroke (HCC) Active Problems: CAD (coronary artery disease) Stage 3b chronic kidney disease (HCC) Hyperlipidemia Primary hypertension Hypothyroidism Seizure disorder (HCC) History of multiple strokes Global aphasia Acute right hemiparesis (HCC) Impaired mobility and activities of daily living Risk for falls Assessment/Plan: Derek Castro Jr. is a 77 y.o. male admitted to [facility] on 08/24/2022 with the following issues: stroke Rehabilitation Plan Tentative discharge date: Rehabilitation: Patient will continue with comprehensive therapies including phy sical therapy, occupational therapy, speech & language pathology, specialized rehab nursing, neuropsychology and physiatry oversight. Goals: at ambulation level, household mobility, Minimum assistance, With caregiv er assistance Recommended therapy after discharge: Home with Assistance, and, Home Health Sett ing PT recommended equipment: OT recommended equipment: Daily Functional Update: Transfers Transfer: Assistive Device: None (08/25/2022 1:00 PM) Transfer: Sit to stand assist level: Moderate assistance (08/25/2022 1:00 PM) Transfer: Stand pivot assist level: Moderate assistance; Minimum assistance (Nazanin baumann, completed one transfer with moderate assist, one with min assist. Per OT patient requiring more assistance in the morning session. Patient most likely will be vairable due to aphasia and lethargy.) (08/25/2022 1:00 PM) No data recorded Gait/ Mobility Gait: Assistive Device: -- ([place]) (08/25/2022 1:00 PM) GAIT: Assist Level: Total assistance (08/25/2022 1:00 PM) Gait Distance: 100 feet (80' x 10) (08/25/2022 1:00 PM) No data recorded No data recorded Toileting Toileting Assist: Total Assist ([place]) (08/23/2022 10:13 AM) No data recorded No data recorded Dressing LE Dressing Assist: Total Assist (08/25/2022 9:45 AM) UE Dressing Assist: Total Assist (08/25/2022 9:45 AM) Current Medical Problems/Risks of Medical Complications/Management Acute Left M2 occlusions/p IRw/ aTICI3 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 Neurogenic bladder : - Likely neurogenic due to stroke Lake replaced 08/22 after failed voiding tr ial > Cont doxazosin 1mg daily (unable to use Flomax due to Corpak) > We will keep Lake in until at least 08/29 when we can attempt a voiding trial at that time. Neurogenic bowel: constipation, incontinence Last BM per chart08/23. PO meds Monitor and titrate May need a set bowel time if incontinence continues. Seizures > Continue CHILD DEVELOPMENT ASSOCIATE TEACHER Keppra HTN/ HLD CAD s/p CABG x5(2009) - Echo 08/10 with EF 60%, no WMA or ventricle dysfunction > SBP goal:less than 160 >Cont amlodipine 10mg, statin, and ASA CKD stage 3 - BaselineCr~1.8-2 > Continue to monitor, avoid nephrotoxic meds Hypothyroidism >Cont CHILD DEVELOPMENT ASSOCIATE TEACHER levothyroxine Rash - Dry, red macular rash noted to entire back >Cont Emollient cream Pulmonary nodules - Incidental finding with multiple subcentimeter pulmonary nodules, indeterminan t on initial examination. No dominant pulmonary mass > Follow-up CT chest in 3 months recommended to evaluate for stability Agitation - Noted to have increased delirium and agitation at night and required PO Seroqu el and mitts on 08/15 >Melatonin 5mg QHS, trazodone 75mg QHS and seroquel 25mg PRN, wean as able Pain Management: pain is well controlled, heat / ice PRN, topical medication and Tylenol PRN Skin: Encourage the patient to continue to inspect their skin and perform pressu re relief. Bowel: lower neurogenic bowel protocol BMI: Body mass index is 31.11 kg/m. Mental Health: consult neuropsychology to provide support / counseling and monit or for depression DVT Prophylaxis: apixaban Esme Harkins MD PGY-3, PM&R Voalte Subjective 08/25: Agitated overnight pulling on his PEG/lake and throwing legs over the bed in attempt to get out of bed. Improved agitation with trazodone 50mg and seroqu el 25mg. Patient seen and examined in their room this morning. Non verbal on exa m, spontaneous RUE movement noted. Not following commands but appears to underst and as he squeezes eyes shut when told examiner would shine light onto the eyes to assess for pupils. 08/26: Received melatonin and trazodone at night. Not agitated but very restless. Slept after 12.5mg of seroquel. Will schedule 12.5mg seroquel at bedtime for now to ensure sleep and safety of patient as well as his tubes. Calm this am, awake and better interaction compared to yesterday. Continue CO. Objective Vital Signs: Last Filed Vital Signs: 24 Gladis r Range BP: 118/77 (08/26 414) Temp: 36.7 C (98.1 F) (08/26 414) Pulse: 58 (08/26 414) Respirations: 16 PER MINUTE (08/26 414) SpO2: 95 % (08/26 414) O2 Device: None (Room air) (08/26 414) BP: (92-143)/(69-91) Temp: [36.1 C (96.9 F)-36.7 C (98.1 F)] Pulse: [57-68] Respirations: [15 PER MINUTE-17 PER MINUTE] SpO2: [94 %-95 %] O2 Device: None (Room air) Vitals: 08/24/22 1349 Weight: 92.8 kg (204 lb 9.4 oz) Intake/Output Summary: (Last 24 hours) Intake/Output Summary (Last 24 hours) at 08/26/2022 0658 Last data filed at 08/26/2022 0200 Gross per 24 hour Intake 3188 ml Output 1450 ml Net 1738 ml Last Bowel Movement Date: 08/23/22 Labs--reviewed Results for orders placed or performed during the hospital encounter of 08/24/22 (from the past 24 hour(s)) CBC CELLULAR THERAPEUTICS Collection Time: 08/25/22 12:56 PM # # Low-High White Blood Cells 9.8 4.5 - 11.0 K/UL RBC 4.86 4.4 - 5.5 M/UL Hemoglobin 14.7 13.5 - 16.5 GM/DL Hematocrit 44.5 40 - 50 % MCV 91.5 80 - 100 FL MCH 30.3 26 - 34 PG MCHC 33.1 32.0 - 36.0 G/DL RDW 13.9 11 - 15 % Platelet Count 284 150 - 400 K/UL MPV 9.6 7 - 11 FL BASIC METABOLIC PANEL CELLULAR THERAPEUTICS Collection Time: 08/25/22 12:56 PM # # Low-High Sodium 138 137 - 147 MMOL/L Potassium 4.1 3.5 - 5.1 MMOL/L Chloride 103 98 - 110 MMOL/L CO2 25 21 - 30 MMOL/L Anion Gap 10 3 - 12 Glucose 112 (H) 70 - 100 MG/DL Blood Urea Nitrogen 39 (H) 7 - 25 MG/DL Creatinine 1.65 (H) 0.4 - 1.24 MG/DL Calcium 9.4 8.5 - 10.6 MG/DL eGFR 43 (L) >60 mL/min Medications: Scheduled Meds:amLODIPine (NORVASC) tablet 10 mg, 10 mg, PEG Tube, QDAY apixaban (ELIQUIS) tablet 5 mg, 5 mg, SEE ADMIN INSTRUCTIONS, BID aspirin chewable tablet 81 mg, 81 mg, PEG Tube, QDAY atorvastatin (LIPITOR) tablet 80 mg, 80 mg, PEG Tube, QDAY carvediloL (COREG) tablet 6.25 mg, 6.25 mg, PEG Tube, BID Diet Enteral Feeding Bolus, , SEE ADMIN INSTRUCTIONS, 5XDAY (6,12,15,18,22) And Water Bolus, 180 mL, PEG Tube, 5XDAY (6,12,15,18,22) docusate sodium (COLACE) oral solution 100 mg, 100 mg, PEG Tube, BID doxazosin (CARDURA) tablet 1 mg, 1 mg, PEG Tube, QDAY levETIRAcetam (KEPPRA) oral solution 500 mg, 500 mg, PEG Tube, BID levothyroxine (SYNTHROID) tablet 125 mcg, 125 mcg, PEG Tube, QDAY(07) melatonin tablet 5 mg, 5 mg, PEG Tube, QHS senna (SENOKOT) oral syrup 17.6 mg, 10 mL, PEG Tube, QHS traZODone (DESYREL) tablet 75 mg, 75 mg, PEG Tube, QHS Continuous Infusions: PRN and Respiratory Meds:acetaminophen Q4H PRN, aluminum/magnesium hydroxide Q4H PRN, bisacodyL QDAY PRN, emollient PRN, milk of magnesia (CONC) Q4H PRN, ondans etron Q6H PRN, pancrelipase 20,880 Units/sodium bicarbonate 650 mg (KU C[facility] [place]) PRN (Orchard Worker from Rx), QUEtiapine QHS PRN Physical Exam General: Alert, NAD HEENT: NCAT, oral mucosa moist, CANDIDA Heart: Extremities well perfused Lungs: Normal work of breathing on room air, appropriate chest rise with inspira tion Abdomen: Soft, non-distended Extremities: No edema Neuro: Alert, grunted when greeted this am, squeezed with left hand on command Psych: Pleasant mood, appropriate affect MSK: moves extremities some Labs & Therapy Notes Reviewed ACE FIRER * Asmita Blas RN - 08/26/2022 6:56 AM CST Pt slept approximately 1.5 hours before he became restless. Pt not agitated. Pt kicking off covers, then pulling on covers. Could not give pt prn seroquel 25mg due to order stated for agitation. Notified Dr.Khulan Nash who ordered sero quel 12.5 per PEG once. Administered seroquel 12.5mg per PEG. Pt slept from appr ox [id number] after receiving ordered seroquel. Pt follows commands. Had pt squee ze fingers to answer yes/no questions. Will report to day shift RN. Rocio Flynn DO - 08/25/2022 3:32 PM CST Physical Medicine & Rehabilitation Progress Note Today's Date: 08/25/2022 Admission Date: 08/24/2022 LOS: 1 day Insurance: [employer] Principal Problem: Acute ischemic left MCA stroke (HCC) Active Problems: CAD (coronary artery disease) Stage 3b chronic kidney disease (HCC) Hyperlipidemia Primary hypertension Hypothyroidism Seizure disorder (HCC) History of multiple strokes Global aphasia Acute right hemiparesis (HCC) Impaired mobility and activities of daily living Risk for falls Assessment/Plan: Derek Castro Jr. is a 77 y.o. male admitted to [facility] on 08/24/2022 with the following issues: stroke Rehabilitation Plan Tentative discharge date: Rehabilitation: Patient will continue with comprehensive therapies including phy sical therapy, occupational therapy, speech & language pathology, specialized rehab nursing, neuropsychology and physiatry oversight. Goals: Recommended therapy after discharge: PT recommended equipment: OT recommended equipment: Daily Functional Update: Transfers Transfer: Assistive Device: Hand Hold Assist (08/24/2022 10:00 AM) No data recorded No data recorded No data recorded Gait/ Mobility Gait: Assistive Device: Hand Hold Assist (08/24/2022 10:00 AM) No data recorded Gait Distance: 80 feet (08/24/2022 10:00 AM) No data recorded No data recorded Toileting Toileting Assist: Total Assist ([place]) (08/23/2022 10:13 AM) No data recorded No data recorded Dressing LE Dressing Assist: Total Assist (08/23/2022 10:13 AM) UE Dressing Assist: Total Assist (08/12/2022 10:56 AM) Current Medical Problems/Risks of Medical Complications/Management Left M2 occlusions/p IRw/ aTICI3 Basal ganglia infarct Chronicvertebral artery occlusion Severe dysphagia and Broca aphasia Hx of multiple ischemic strokes(2019, R MCA 05/2022, L NILA 07/2022) >Will continue indefinitely on Eliquis per neurology recommendations > 30 day cardiac event monitoror ILR at discharge and will maintain > PT/OT/DEPUTY HEAD to eval and treat Dysphagia - Repeat video swallow 08/20 did not go well thus PEG placed on 08/20 > consult nutrition for tube feed recommendations > DEPUTY HEAD to work with patient. Neurogenic bladder : - Likely neurogenic due to stroke Lake replaced 08/22 after failed voiding tr ial > Cont doxazosin 1mg daily (unable to use Flomax due to Corp[place]) > We will keep Lake in until at least 08/29 when we can attempt a voiding trial at that time. Seizures > Continue CHILD DEVELOPMENT ASSOCIATE TEACHER Keppra HTN/ HLD CAD s/p CABG x5(2009) - Echo 08/10 with EF 60%, no WMA or ventricle dysfunction > SBP goal:less than 160 >Cont amlodipine, statin, and ASA CKD stage 3 - BaselineCr~1.8-2 > Continue to monitor Hypothyroidism >Cont CHILD DEVELOPMENT ASSOCIATE TEACHER levothyroxine Rash - Dry, red macular rash noted to entire back >Cont Emollient cream Pulmonary nodules - Incidental finding with multiple subcentimeter pulmonary nodules, indeterminan t on initial examination. No dominant pulmonary mass > Follow-up CT chest in 3 months recommended to evaluate for stability Agitation - Noted to have increased delirium and agitation at night and required PO Seroqu el and mitts on 08/15 >Melatonin 5mg QHS, trazodone 75mg QHS and seroquel 25mg PRN, wean as able Pain Management: pain is well controlled, heat / ice PRN, topical medication and Tylenol PRN Skin: Encourage the patient to continue to inspect their skin and perform pressu re relief. Bowel: lower neurogenic bowel protocol BMI: Body mass index is 31.11 kg/m. Mental Health: consult neuropsychology to provide support / counseling and monit or for depression DVT Prophylaxis: apixaban Rocio Nash, DO PGY-3, PM&R Voalte Subjective Agitated overnight pulling on his PEG/lake and throwing legs over the bed in at tempt to get out of bed. Improved agitation with trazodone 50mg and seroquel 25m g. Patient seen and examined in their room this morning. Non verbal on exam, spo ntaneous RUE movement noted. Not following commands but appears to understand as he squeezes eyes shut when told examiner would shine light onto the eyes to ass ess for pupils. Objective Vital Signs: Last Filed Vital Signs: 24 Gladis r Range BP: 143/91 (08/25 1525) Temp: 36.1 C (96.9 F) (08/25 1525) Pulse: 61 (08/25 1525) Respirations: 15 PER MINUTE (08/25 1525) SpO2: 95 % (08/25 1525) O2 Device: None (Room air) (08/25 1525) BP: (92-154)/(68-91) Temp: [36.1 C (96.9 F)-36.9 C (98.4 F)] Pulse: [57-75] Respirations: [12 PER MINUTE-18 PER MINUTE] SpO2: [90 %-98 %] O2 Device: None (Room air) Vitals: 08/24/22 1349 Weight: 92.8 kg (204 lb 9.4 oz) Intake/Output Summary: (Last 24 hours) Intake/Output Summary (Last 24 hours) at 08/25/2022 1532 Last data filed at 08/25/2022 1510 Gross per 24 hour Intake 3323 ml Output 1150 ml Net 2173 ml Last Bowel Movement Date: 08/23/22 Labs--reviewed Results for orders placed or performed during the hospital encounter of 08/24/22 (from the past 24 hour(s)) CBC CELLULAR THERAPEUTICS Collection Time: 08/25/22 12:56 PM # # Low-High White Blood Cells 9.8 4.5 - 11.0 K/UL RBC 4.86 4.4 - 5.5 M/UL Hemoglobin 14.7 13.5 - 16.5 GM/DL Hematocrit 44.5 40 - 50 % MCV 91.5 80 - 100 FL MCH 30.3 26 - 34 PG MCHC 33.1 32.0 - 36.0 G/DL RDW 13.9 11 - 15 % Platelet Count 284 150 - 400 K/UL MPV 9.6 7 - 11 FL BASIC METABOLIC PANEL CELLULAR THERAPEUTICS Collection Time: 08/25/22 12:56 PM # # Low-High Sodium 138 137 - 147 MMOL/L Potassium 4.1 3.5 - 5.1 MMOL/L Chloride 103 98 - 110 MMOL/L CO2 25 21 - 30 MMOL/L Anion Gap 10 3 - 12 Glucose 112 (H) 70 - 100 MG/DL Blood Urea Nitrogen 39 (H) 7 - 25 MG/DL Creatinine 1.65 (H) 0.4 - 1.24 MG/DL Calcium 9.4 8.5 - 10.6 MG/DL eGFR 43 (L) >60 mL/min Medications: Scheduled Meds:amLODIPine (NORVASC) tablet 10 mg, 10 mg, PEG Tube, QDAY apixaban (ELIQUIS) tablet 5 mg, 5 mg, SEE ADMIN INSTRUCTIONS, BID aspirin chewable tablet 81 mg, 81 mg, PEG Tube, QDAY atorvastatin (LIPITOR) tablet 80 mg, 80 mg, PEG Tube, QDAY carvediloL (COREG) tablet 6.25 mg, 6.25 mg, PEG Tube, BID Diet Enteral Feeding Bolus, , SEE ADMIN INSTRUCTIONS, 5XDAY (6,12,15,18,22) And Water Bolus, 180 mL, PEG Tube, 5XDAY (6,12,15,18,22) docusate sodium (COLACE) oral solution 100 mg, 100 mg, PEG Tube, BID doxazosin (CARDURA) tablet 1 mg, 1 mg, PEG Tube, QDAY levETIRAcetam (KEPPRA) oral solution 500 mg, 500 mg, PEG Tube, BID levothyroxine (SYNTHROID) tablet 125 mcg, 125 mcg, PEG Tube, QDAY(07) melatonin tablet 5 mg, 5 mg, PEG Tube, QHS senna (SENOKOT) oral syrup 17.6 mg, 10 mL, PEG Tube, QHS traZODone (DESYREL) tablet 75 mg, 75 mg, PEG Tube, QHS Continuous Infusions: PRN and Respiratory Meds:acetaminophen Q4H PRN, aluminum/magnesium hydroxide Q4H PRN, bisacodyL QDAY PRN, emollient PRN, milk of magnesia (CONC) Q4H PRN, ondans etron Q6H PRN, pancrelipase 20,880 Units/sodium bicarbonate 650 mg (KU [place] [place]) PRN (Orchard Worker from Rx), QUEtiapine QHS PRN Physical Exam General: Alert, NAD HEENT: NCAT, oral mucosa moist Heart: Extremities well perfused Lungs: Normal work of breathing on room air, appropriate chest rise with inspira tion Abdomen: Soft, non-distended Extremities: No edema Neuro: Alert, does not follow commands. Appropriate processing time with convers ation Psych: Pleasant mood, appropriate affect MSK: spontaneous RUE movement Labs & Therapy Notes Reviewed ACE FIRER Associated attestation - Esme Harkins MD - 08/25/2022 7:35 PM FURNACE FIRER ATTESTATION I personally performed the tineo portions of the E/M visit, discussed case with re sident and concur with resident documentation of history, physical exam, assessm ent, and treatment plan unless otherwise noted. Please see H&P addendum from same date for details. Staff name: Esme Harkins MD Date of Service: 08/25/2022 * Hernandez Hu, PT - 08/25/2022 1:00 PM CST PHYSICAL THERAPY 08/25/22 1300 Type of Note Type of Note Evaluation Time Calculation Start Time 1300 Stop Time 1400 Time Calculation 60 $$ Pt Eval -High Complexity 1 Procedure $$ Professional Contact 1 unit $$ Gait / Mobility 1 unit $$ PT Therapeutic Activity 1 unit History Reason For Admission Acute ischemic left MCA stroke Subjective Subjective Patient unable to participate in subject exam due to aphasia Vitals* Pulse 57 BP Patient Position Head of bed (Comment degree) BP 121/70 Respirations 16 PER MINUTE O2 Device None (Room air) SpO2 95 % SpO2 Location Right;Finger, Fourth (Ring) Home Environment Comment Per EMR patient lives with family with ramp to enter. Will need to obta in more information from family Range of Motion R LE ROM WFL L LE ROM WFL Strength Overall Strength (Unable to formally assess) Sensation/Tone/Coordination Posture/Neuro Comments Unable to assess Bed Mobility Bed Mobility: Supine to sit assist level Moderate assistance Bed Mobility: Supine to sit type of assist Assist with trunk;No rail;With head o f bed flat;Requires extra time Bed Mobility: Sit to Supine Assist Level Assist of two Bed Mobility: Sit to supine type of assist Assist with trunk;Assist with bilater al lower extremity Transfers Transfer: Assistive Device None Transfer: Sit to stand assist level Moderate assistance Transfer: Sit to stand type of assist For safety;Facilitation of trunk;Facilitat ion of weight shift;Increased time to complete Transfer: Stand to sit assist level Moderate assistance Transfer: Stand to sit type of assist For safety;Facilitation of trunk;Facilitat ion of weight shift;Increased time to complete Transfer: Stand pivot assist level Moderate assistance;Minimum assistance (Variable, completed one transfer with moderate assist, one with min assist. Pe r OT patient requiring more assistance in the morning session. Patient most lik dina will be vairable due to aphasia and lethargy.) Transfer Comment Practiced lolis marcial transfer with CO present. Patient did wel l with verbal cues for hand placement and standing. Nursing to use two people t o assist with lolis amrcial. Gait Gait Distance 100 feet (80' x 10) GAIT: Assist Level Total assistance GAIT: Type of Assist For safety Gait: Assistive Device ([place]) Gait: Patterns Decreased gait velocity;Trunk lean forward;Shuffling Gait: Deviation Left Decreased stride length Gait: Deviation Right Decreased stride length Gait Comment Completed ambulation in [place] due to no second person at start of session. Stairs Stair: Assist Level Not safe to attempt Assessment Assessment Patient presents to inpatient rehab following a Acute ischemic left M CA stroke. Patient with aphasia and unable to participate in subjective exam. Patient is requiring two people to for mobility currently. Patient will require continued skilled therapy to progress to most independent level possible. Plan Comments Obtain PLOF and home environment info, Assess gait outside [facility] how lolis marcial transfers are going with nursing, outcome measures, HIGT Recommendations PT Discharge Recommendations Home with Assistance;and;Home Health Setting Weekly Goals Weekly Bed Mobility Goals Patient will perform sit to supine with;Patient will p erform supine to sit with Patient will perform sit to supine with Minimum assistance Patient will perform supine to sit with Minimum assistance Weekly Transfer Goals Patient will complete sit to stand transfer with;Patient w ill complete stand to sit transfer with;Patient will complete stand pivot transf er with Patient will complete stand to sit transfer with Minimum assistance Patient will complete stand pivot transfer with Minimum assistance Weekly Ambulation/Stairs Goals Patient will ambulate Patient will ambulate 50 feet;Least assistive device;Moderate assistance Goal(s) for the Stay Patient will perform at ambulation level;household mobility;Minimum assistance;W ith caregiver assistance Hernandez Hu PT, DPT ACE FIRER * Juany Meredith MA,CCC-DEPUTY HEAD - 08/25/2022 12:00 PM CST SPEECH-LANGUAGE PATHOLOGY CLINICAL SWALLOW ASSESSMENT Name: Derek Castro JrSourav : 1945 Age: 77 y.o. Admission Date: 08/24/2022 LOS: 1 day Date of Service: 08/25/2022 Evaluation Summary Clinical swallow evaluation completed. Clinical Impression: Severe dysphagia Sources of Dysphagia: Weakness from recent CVA Recommendations Swallow Recommendations PO: Ice chips only NPO: Continue group home non-oral nutrition Medications: GT tube Ice Chip Trials: 1 at a time (5-10 per hour) Supervision: 1:1 Positioning: Upright 90 degrees or chair mode Swallow Strategies: 100% supervision to provide cues for swallow strategies dur ing meals, Feeding assistance needed, Limit distractions during PO Oral Hygiene: 3 times per day, Complete oral care prior to PO trials to minimize the risk of aspirating oral bacteria Dysphagia Management: Aggressive management of dysphagia - NPO with alternate so urce of nutrition (Comment) Ongoing Speech Therapy Ongoing Speech Therapy to Address: Dysphagia PO Presentation Presentations: Therapist Fed Thin Liquid: 1/2 Tsp Other Consistencies: Ice Chips Clinical Interpretation of Oral Stage Withdraw Bolus: Labial weakness, Lingual incoordination, Lingual weakness, Decre ased buccal tension, Poor dentition Form Bolus: Slowed Masticate Bolus: Poor dentition, Lingual incoordination, Prolonged mastication Transfer Bolus: Suspect early spillover, Slowed, Delayed initiation Oral Stage Summary*: Pt exhibited decreased alertness throughout evaluation. Tri als were discontinued due to increase risk of aspiration due to pt fatigue and i nability to maintain alertness. Clinical Interpretation of Pharyngeal Stage Swallow Initiation: Delayed, Cognitive component Laryngeal Elevation: Suspected to be reduced Signs / Symptoms Of Aspiration: Throat Clearing Oral Mech Exam Oral Mech WFL*: No Lips: Impaired Strength - Bilateral Tongue: Impaired Strength - Bilateral Dentition: Missing Dentition Objective Relevant Med Background: Derek Castro is a 77 yo male with a PMHx of HTN/HLD, CAD s /p CABG x5 in 2009, RLE DVT, CKD stage 3, seizures, multiple ischemic strokes (2 020, May 2022, Jul 2022) with residual LUE ataxia, hypothyroidism who presented to an OSH ([facility]) on 08/09 for right sided weakness and aphasia. C T/CTA showed a left M2 occlusion. He was not a TNK candidate due to recent strok e, so he was transferred to [facility] for further management. He is now s/p thrombec mohan and was admitted to the [facility] post-op. Patient transferred to the IM service on 08/13. Patient has ongoing severe dysphagia and aphasia. Plan for repeat video swallow Saturday morning and peg tube placement that afternoon if he fails. Handedness: Right Lives With: Spouse Receives Help From: None Needed Psychosocial Status: Lethargic; Resistive Persons Present: None Subjective Pain: Patient has no complaint of pain Trach Presence: No Feeding Tube Present During Eval: PEG Nutrition Nutrition Prior To Hospitalization: Oral, Regular, Thin Liquids Current Form Of Nutrition: NPO, PEG Assessment/Prognosis Plan: Continue treatment daily Prognosis: Guarded LANGUAGE EVALUATION SUMMARY Diagnosis / Severity: Global Aphasia Summary: A speech/language evaluation was initiated this date utilizing the [facility] Aphasia Battery (WAB) as well as informal measures. Pt unable to complete ev aluation this date. Pt exhibited increased difficulty with maintaining alertness . This DEPUTY HEAD discussed pt's status with RN and was known pt was heavily sedated pr evious night due to agitation. Pt will benefit from ongoing DEPUTY HEAD intervention to address communication impairment to facilitate improved communication, independe nce, and quality of life. Please see further details below. Prognosis: Guarded Plan: Continue Treatment Daily Results Reported to Physician: Yes -- via EMR COMMUNICATION STRATEGIES: 1. Yes/no responses are not reliable. Ask yes/no questions rephrased to ensure r eliability of responses. 2. Obtain eye contact 3. Speak in short, simple sentences. Allow increased processing time. Provide re petitions as needed. 4. Limit environmental distractions CURRENT RECOMMENDATIONS: 1. DEPUTY HEAD will continue to follow for ongoing assessment and monitoring of communic ation skills during admission (60 min/day) 2. Consistent supervision recommended upon discharge as anticipate patient's imp aired communication will impact their ability to call for help 3. Anticipate pt will require assistance with medication/finance management and meal preparation upon discharge 4. At this time, anticipate pt will benefit from ongoing ST services at the next level of care Western Aphasia Battery (WAB) Part 1, initiated on 08/25/2022 Domain Subtest Score Totals/Scores Notes Spontaneous Speech Information Content /10 Fluency, Grammatical Competence, Paraphasias /10 Total/Score: /20 Auditory Verbal Comprehension Yes/No Questions /60 Auditory Word Recognition /60 Sequential Commands /80 Total: /200 Score: /10 Repetition Repetition /100 Total/Score: /10 Naming and Word Finding Object Naming /60 Word Fluency /20 Sentence Completion /10 Responsive Speech /10 Total: /100 Score: /10 Aphasia Quotient (scores added x2) /100 Aphasia Type PRAGMATICS Comments: Pt demonstrates extreme lethargy and is unable to maintain alertness o r eye contact. BEHAVIOR Comments: Pt fatigued; unable to complete evaluation.Impulsive behaviors observe d towards PEG placement with feeding. AUDITORY COMPREHENSION Comments: Pt able to use index to point to color "blue", to line drawn item "pen cil", and to line drawn item "cup" with multiple repetitions and tactile cue to raise arm. VERBAL EXPRESSION Comments: Pt did not express verbally this date. READING COMPREHENSION Comments: Continued assessment required. WRITTEN EXPRESSION Comments: Unable to complete written expression assessment due to lethargy. ST GOALS FOR STAY: See Rehab DEPUTY HEAD Goals docflowsheet for information regarding goals. PLAN FOR NEXT VISIT: Assessment Pt exhibits lethargy and fatigue throughout evaluations. This DEPUTY HEAD di scussed with RN and let known pt was provided heavy sedation during the night to assist with agitation which likely has a negative effect on today's result. Plan Continue with language testing in following tx session. -PO trials (ice chips) Therapist:Juany Meredith MA,CCC-DEPUTY HEAD Date:08/25/2022 ACE FIRER * Bonnie Chin, OT - 08/25/2022 10:00 AM CST OCCUPATIONAL THERAPY 08/25/22 0945 Time Calculation Start Time 1000 Stop Time 1100 Time Calculation 60 $$ OT Eval - High Complexity 1 Procedure $$ Professional Contact 3 units History Reason For Admission Acute ischemic left MCA stroke Previous Medical History CAD s/p CABG, CKD, HTN, [facility], MCA territories, Left pariental lobe and bilateral cereberllar hemispheres (2019, May 2022, and Jul 2022)- patient has mild left sided ataxia Subjective Subjective Pt supine in bed. Pt non verbal throughout OT session, however, coop erative and calm. Vitals* Pulse 57 BP 129/76 Precautions Precautions Constant observation Cognitive Orientation Unable to Assess (Comment) (non- verbal) Patient Behavior Calm;Cooperative Prior Function Prior Functioning: Self Care 8 Prior Functioning: Functional Cognition 8 Home Environment Comment Per EMR patient lives with family with ramp to enter. Will need to obta in more information from family Grooming Grooming - Wash Face Assist Yes Grooming Assist Maximum Assist Grooming Position HOB up ___ degrees Grooming Comments OT handed pt warm washcloth and he grasped it with R hand and began applying to lower part of face. With manual cues, pt able to briefly wash forehead. Bathing Bath/Shower Soap and water shower/bath Bathing - Chest Assist Yes Bathing - Left Arm Assist Yes Bathing - Right Arm Assist Yes Bathing - Abdomen Assist Yes Bathing - Perineal Area Assist Yes Bathing - Buttocks Assist Yes Bathing - Left Upper Leg Assist Yes Bathing - Right Upper Leg Assist Yes Bathing - Left Lower Leg Including Foot Assist Yes Bathing - Right Lower Leg Including Foot Assist Yes Bathing Assist Total Assist Bathing Position Sponge bath edge of bed Bathing Comments Requires minimal to moderate assist for sitting balance edge of bed. Pt able to participate in task by washing arms and chest. Requires cheng tance for thoroughness and all other parts. Upper Body Dressing UE Dressing Assist Total Assist Upper Dressing Position Sitting edge of bed Upper Dressing Comments Assist for sitting balance. Requires moderate to maximu m assist to thread BUE's, pull overhead and down in back. Lower Body Dressing LE Dressing Assist Total Assist Lower Dressing Position Sitting edge of bed Lower Dressing Comments Assist of 2 for standing to pull pants over hips. Toileting Toileting Assist Total Assist Toileting Comments Lake catheter Toileting Transfer Toilet Transfer Comments Not performed Tub/Shower Transfer Tub/Shower Comments Sponge bath only Bed Mobility Bed Mobility: Supine to sit assist level Moderate assistance Bed Mobility: Supine to sit type of assist Assist with trunk Bed Mobility: Sit to Supine Assist Level Assist of two Bed Mobility: Sit to supine type of assist Assist with trunk;Assist with bilater al lower extremity Transfers Transfer: Assistive Device None Transfer: Sit to stand assist level Moderate assistance Transfer: Sit to stand type of assist Facilitation of trunk;Facilitation of weig ht shift;For safety;Increased time to complete Transfer: Stand to sit assist level Moderate assistance Transfer: Stand to sit type of assist For safety;Facilitation of trunk;Facilitat ion of weight shift;Increased time to complete Transfer: Stand pivot assist level With two person Transfer: Stand pivot type of assist Assist with Right lower extremity;Facilitat ion of weight shift;Facilitation of trunk;For safety;Increased time to complete Communication/Cognition Comprehension Receptive Aphasia Expression Expressive Aphasia;Non Verbal Social Interaction Increased Time to Adjust Attention Awake/Alert Activity Therapeutic Activities Seated edge of mat in therapy gym, ranging from close SBA to moderate assist. Assessment Assessment Pt is s/p ischemic L MCA stroke. He currently demonstrating dependen ce in ADLs and IADLs. Pt is unable to verbally communicate and therefore unable to provide information regarding prior level of function and home environment. Family was not present. Pt will benefit from skilled OT to maximize safety and independence in ADLs to promote a safe discharge to home and decrease burden of care. Plan OT Plan Balance training;Cognitive training;Family / caregiver training;Function al transfers training;Neuromuscular education;Self-care retraining;Vision evalua tion;Postural control management;Positioning Intensity 60 (to 90) Plan Comments Obtain accurate info regarding prior level of function and home en vironment from family; address shower/shower transfer and toileting/toilet trans shawn. Recommendations OT Discharge Recommendations Home with consistent supervision;Day program;Home w ith family assist OT Equipment Recommendations Too early to determine Education Goal Formulation Patient Unable to Participate in Goal Setting Weekly Goals Patient Will Perform UE Dressing w/ Maximum Assist;In Chair Patient Will Perform Grooming w/ Moderate Assist;in Wheelchair Pt Will Perform All Functional Transfers Maximum Assist Goals for the stay Pt will perform basic care and transfer with Moderate Assist Type of Note Type of Note Evaluation Bonnie Chin OTR ACE FIRER * Asmita Blas RN - 08/25/2022 6:47 AM CST Acute Inpatient Rehabilitation Behavior Summary of Shift Name: Derek Castro Jr. : 1945 Age: 77 y.o. Admission Date: 08/24/2022 LOS: 1 day Date of Service: 08/25/2022 Reason for increased observation? Pulling at Peg/Lake, decreased attention, poo r safety awareness, impulsivity One-on-one safety watch: Yes Q15-30 minute safety watch: No Suicide precaution: No Telemonitoring: No Behavior outbursts during this shift? No Description and time(s) of event: NA Agitation during this shift? 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 Active suicide ideation during this shift? No Description and time(s) of event: NA Poor safety awareness or impulsivity during this shift? Yes Description and time(s) of event: Pt pulling at PEG and Lake towards beginning of shift. Noteworthy visitor interactions during this shift? None Sleep/rest patterns observed during this shift? Pt did not fall asleep until aft er 0100. Pt restless until received orders for trazadone 50mg per PEG prn at HS for insomnia and seroquel 25 mg per PEG prn for agitation. Pt then slept through until morning. Therapeutic interventions: Distraction, Redirection and Reorientation Additional Comments: Pulled SKILLS INSTRUCTOR to CO for patient at approx MN until pt fell as leep at approx [phone]. ACE FIRER * Asmita Blas RN - 08/25/2022 2:59 AM CST Pt currently sleeping. Sepsis BPA activated by WBC 11.5 on 08/24/22 a.m. labs. VS T 97.5 Axillary, P59, R12, SaO2 96% on RA, BP 118/69. SIRS criteria unmet. Noti fied Dr. Rocio Nash at 0058. No new orders at this time. Notified . ACE FIRER * Asmita Blas RN - 08/25/2022 12:52 AM CST Pt pulling off gown and pulling at lake. Pt with abdominal binder on d/t pt pul ling at peg. Pt continues to try to get OOB on his own by kicking his legs over side rails. Pt appears agitated. Pt grabbing at staff when repositioning pt and during HS tube feeding. Placed rolled up washcloths in pt hands to deter pt from grabbing staff during TF. Placed SKILLS INSTRUCTOR in room to CO. Notified Dr. Rocio Fierro to, who ordered trazadone 50mg per PEG at bedtime prn for insomnia and seroquel 25mg per PEG at bedtime prn for agitation. Will monitor pt behaviors. ACE FIRER * Linda Del Rosario RN - 08/24/2022 7:16 PM CST Patient was found grown off, pulled peg tube cap disconnected from the tube even with abdominal binder on and secure device on lake was removed at patient beds marisel safety check. The peg tube cap was able to reconnect with the peg tube after cleaning with alcohol wipe. Flush with 30 ml water and the peg tube is still fu nctional. Re-applied abdominal binder for peg tube. Patient has a new lake secu rement device. Re-dress grown. ACE FIRER * Sharon Hammond RT - 08/24/2022 5:33 PM CST RT Adult Assessment Note NAME:Derek Castro Jr. :1945 AGE: 77 y.o. ADMISSION DATE: 08/24/2022 DAYS ADMITTED: LOS: 0 days RT Treatment Plan: Protocol Plan: Procedures PAP: Discontinued CPAP/BiPAP: CPAP SpO2: Continuous (Document SpO2 result Qshift) Comment: Refuses CPAP/CPOX. Additional Comments: Impressions of the patient: No distress noted. Intervention(s)/outcome(s): See RT treatment plan. Patient education that was completed: NA Recommendations to the care team: NA Vital Signs: Pulse: 68 RR: 16 PER MINUTE SpO2: 92 % O2 Device: None (Room air) Liter Flow: O2%: Breath Sounds: Clear (Implies normal) Respiratory Effort: Non-Labored ACE FIRER * Linda Del Rosario RN - 08/24/2022 1:33 PM CST Patient arrived on unit via cart accompanied by transport. Patient transferred t o the bed with assistance. Assessment completed, refer to flowsheet for details. Orders released, reviewed, and implemented as appropriate. Oriented to surround ings, call light within reach. Plan of care reviewed. Will continue to monitor and assess. Patient is not speaking, nonverbal, alert and follow command of raising arms. Un able to assess patient orientation at this time and complete admission forms. Wi ll wait for family member to come. ACE FIRER documented in this encounter H&P Notes * Esme Harkins MD - 08/24/2022 3:20 PM CST ATTESTATION I personally performed the tineo portions of the E/M visit, discussed case with re codie and concur with resident documentation of history, physical exam, assessm ent, and treatment plan unless otherwise noted. I have made adjustments and additions directly to the resident's text below when indicated. Patient was seen by me on 08/25/22 at 8am. Briefly, 77yo male with h/o multiple prior strokes, CABG in 2009, RLE DVT, HTN, HLD, hypothyroidism, seizzure, CKD3, now with new acute L MCA CVA. Etiology uncl ear. On Eliquis and ASA for secondary prevention. Severe dysphagia, NPO with peg for nutrition, severe global aphasia. Was agitated and restless last night. S/p melatonin, required 75mg trazodone and seroquel 25mg before calming down and fa lling asleep. Awake this morning. Did not follow commands. CANDIDA, 1.5mm b/l, whe n instructed that I would check eyes with flashlight closed them shut(so most ephraim ontiveros understands some), moves right side more freely. Plan to give both melatonin and trazodone tonight to help with sleep. Therapies thr the day today. Follow for participation. Monitor Bps. This patient meets medical necessity and has functional deficits requiring the i ntensity of therapy available at an IRF level of care. Patient has medical compl exity and medical comorbidities requiring daily physician oversight including ne w stroke, aphasia, dysphagia, HTN, agitation, neurogenic bowel and bladder. The patient can participate in and can fully benefit from the services offered in [facility] setting including 24 hour rehabilitation nursing, daily physician oversig ht, and complex interdisciplinary rehabilitation including PT, OT, DEPUTY HEAD totaling at 3 hours per day, 5 days per week of therapy for the duration of the rehab sta y. The ELOS is 4-5 weeks days with a goal for min assist of 1 functional level at the time of discharge. Their rehab potential is good and I do not expect the ir medical co-morbidities to interfere with full rehabilitation participation. Staff name: Esme Harkins MD Date of Service: 08/25/2022 Physician Medicine & Rehabilitation History & Physical Note Date of Service: 08/24/2022 Derek Castro Jr. is a 77 y.o. male. : 1945 MRN#: [id number] Primary Insurance: [employer] Secondary Insurance: Tertiary Insurance: Financial Class: Medicare Repl Date of Admission: 08/24/2022 Precautions: Fall, aspiration and seizure Weight bearing Precautions: WBAT Active Problems Principal Problem: Acute ischemic left MCA stroke (HCC) Active Problems: CAD (coronary artery disease) Stage 3b chronic kidney disease (HCC) Hyperlipidemia Primary hypertension Hypothyroidism Seizure disorder (HCC) History of multiple strokes Global aphasia Acute right hemiparesis (HCC) Impaired mobility and activities of daily living Risk for falls Assessment & Plan: Derek Castro Jr. is a 77 y.o. male admitted to [facility] on 08/24/2022 with the following issues: stroke Impairments: aphasia, cognitive impairments, communication deficits, dysarthria, dysphagia, loss of coordination, neurogenic bladder, neurogenic bowel, poor act ivity tolerance and weakness Activity Limitations: eating, grooming, bathing, dressing - upper, dressing - l ower, toileting, bladder control, bowel control, transfers, ambulation, stairs, comprehension, expression, social interaction, problem solving and memory Participation Restrictions: unable to return home safely and unable to return to work Rehabilitation Plan Patient will receivePhysical therapy, Occupational therapy and Speech therapy each 60 minutes a day, 5 days a weekfor a total of 3 hours daily (minimum) fo r the duration of the rehabilitation stay within an interdisciplinary rehabilita tion program with therapeutic case manager/social science professor, siebel crm developer, neuropsychologist, reha b nursing and PM&R oversight. Rehabilitation Prognosis:Fairto good Medical Prognosis: The patient is deemed medically stable to tolerate, benefit f rom, and participate in IRF levelservices. Tolerance for three hours of therapy a day:Good.Patient has participated wel l with therapies [id number] the acute care setting and is anticipated to tolerate therapy as required. Goals/Barriers/Facilitators Family / Patient Goals:return home to previous level of function Mobility Goals:Overall goal isIndependentand Physical Therapy will evaluat e and treat ambulation/wheelchair use and bed transfers Activities of Daily Living (ADLs) Goals:Overall goal isIndependentand Occu pational therapy will evaluate and treat basic Activities of Daily Living Cognition / Communication Goals:Overall goal isSupervision or touching cheng adams Speech therapy will evaluate and treat cognition and communication de ficits and assess for safe swallow Barriers & Interventions: Caregiver Apprehension:Arrange caregiver support and discuss barriers and megan ent progress with caregivers when appropriate. High [place] of Care:Initiate interdisciplinary rehabilitation to improve funct ional independence and reduce burden of care. Medication Education:Pharmacist and nursing staff to provide education to pa tient and family regarding medication side effects, special precautions, and saf e administration. Facilitators:good home setup, good family / social support, patient motivation , improving strength / endurance and improving medical condition Discharge Planning Expected Length of [id number](s) Expected Discharge DispositionHome Current Medical Problems/Risks of Medical Complications/Management Hospital problems and plan: Acute Left M2 occlusions/p IRw/ [id number] 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 Hx of multiple ischemic strokes(2019, R MCA 05/2022, L NILA 07/2022) Severe dysphagia and global aphasia, impaired cognition, impaired mobility with right hemiplegia, impaired ADLs > Will continue indefinitely on Eliquis ad ASA per neurology recommendations > 30 day cardiac event monitoror ILR at discharge and will maintain > PT/OT/DEPUTY HEAD to eval and treat Dysphagia - Repeat video swallow 08/20 did not go well thus PEG placed on 08/20 > PEG care, abdominal binder > consult nutrition for tube feed recommendations > DEPUTY HEAD to work with patient. Neurogenic bladder : - Likely neurogenic due to stroke Lake replaced 08/22 after failed voiding tri al > Cont doxazosin 1mg daily (unable to use Flomax due to [place]) > We will keep Lake in until at least 08/29 when we can attempt a voiding trial at that time. Neurogenic bowel: constipation, incontinence Last BM per chart08/23. PO meds Monitor and titrate May need a set bowel time if incontinence continues. Seizures > Continue CHILD DEVELOPMENT ASSOCIATE TEACHER Keppra HTN/ HLD CAD s/p CABG x5(2009) - Echo 08/10 with EF 60%, no WMA or ventricle dysfunction > SBP goal:less than 160 > Cont amlodipine, statin, and ASA CKD stage 3 - BaselineCr~1.8-2 > Continue to monitor, avoid nephrotoxic meds Hypothyroidism > Cont CHILD DEVELOPMENT ASSOCIATE TEACHER [id number] >may recheck TSH and free T4 if no recent level. Rash - Dry, red macular rash noted to entire back > Cont Emollient cream Pulmonary nodules - Incidental finding with multiple subcentimeter pulmonary nodules, indeterminan t on initial examination. No dominant pulmonary mass > Follow-up CT chest in 3 months recommended to evaluate for stability Agitation - Noted to have increased delirium and agitation at night and required PO Seroqu el and mitts on 08/15 > Melatonin 5mg QHS, trazodone 25mg QHS PRN Pain Management: pain is well controlled, heat / ice PRN, topical medication and Tylenol PRN Skin: Encourage the patient to continue to inspect their skin and perform pressu re relief. Bowel: lower neurogenic bowel protocol BMI: Body mass index is 31.11 kg/m. Mental Health: consult neuropsychology to provide support / counseling and monit or for depression DVT Prophylaxis: apixaban} History of Present Illness: Hospital Course: a 77 year oldmalewitha past medical historyof CAD s/p CABG , CKD, HTN, multiple ischemic CVAsin rigth NILA, MCA territories, Left parienta l lobe and bilateral cereberllar hemispheres(2019, May 2022, and Jul 2022)- christian solano left sided ataxia, who wastransferred from OSH on 08/09 after be ing found slumped over by his . Patient was found to have left sided weaknes s, aphagia. OSH CT/CTA noted Left M2 occlusion. He was not a candidate for TNK r elated to recent ischemic stroke. Patient was transferred to [facility]-- he underwen t thrombectomy with TICI 3. MRI with acute moderate L MCA territory infarct.He was extubated 08/10. Repeat CT head 08/10 with evolving moderate sided left MCA t erritory infarct, with slight increased in localized mass effect. Patient has co ntinued dysphagia, warranting cor bib for nutrition.He is s/p PEG 08/20 and con tinues to be NPO related to dysphagia.Patients hospital course has been compli cated by dysphagia, leukocytosis, NEIL, cognitive impairment, global aphasia, as well as impaired mobility and activities of daily living. Admitted to inpatient rehab on 08/24/2022. Seen and evaluated and was in no a cute distress. Unable to provide history secondary to what appears to be Broca' s aphasia. He otherwise was able to follow commands and provide some yes no ans wers by shaking his head. Past Medical History Medical History: Diagnosis Date CAD (coronary artery disease) 03/2010 s/p CABG x 5 CKD (chronic kidney disease) stage 3, GFR 30-59 ml/min (HCC) Deep vein thrombosis (DVT) of right lower extremity (HCC) 05/2010 s/p CABG Gout History of left NILA stroke 07/2022 History of right MCA stroke 05/2022 Hyperlipidemia Hypothyroidism Primary hypertension Seizure disorder (HCC) Past Surgical History Surgical History: Procedure Laterality Date CORONARY ARTERY BYPASS GRAFT 03/2010 x 5 vessel Family\\Social History Social History Socioeconomic History Marital status: Tobacco Use Smoking status: Former Types: Cigarettes Smokeless tobacco: Never Vaping Use Vaping Use: Never used Substance and Sexual Activity Alcohol use: Not Currently Drug use: Not Currently No family history on file. Medications: [START ON 08/25/2022] amLODIPine (NORVASC) tablet 10 mg, 10 mg, PEG Tube, QDAY apixaban (ELIQUIS) tablet 5 mg, 5 mg, SEE ADMIN INSTRUCTIONS, BID [START ON 08/25/2022] aspirin chewable tablet 81 mg, 81 mg, PEG Tube, QDAY [START ON 08/25/2022] atorvastatin (LIPITOR) tablet 80 mg, 80 mg, PEG Tube, QDAY carvediloL (COREG) tablet 6.25 mg, 6.25 mg, PEG Tube, BID Diet Enteral Feeding Bolus, , SEE ADMIN INSTRUCTIONS, 5XDAY (6,12,15,18,22) And Water Bolus, 180 mL, PEG Tube, 5XDAY (6,12,15,18,22) docusate sodium (COLACE) oral solution 100 mg, 100 mg, PEG Tube, BID [START ON 08/25/2022] doxazosin (CARDURA) tablet 1 mg, 1 mg, PEG Tube, QDAY levETIRAcetam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 anagement, nursing cares, and comprehensive therapies. Medical/Surgical History: Left pariental lobe and bilateral cereberllar hemisphe res (2019, May 2022, and Jul 2022)- patient has mild left sided ataxia Medical History: Diagnosis Date CAD (coronary artery disease) 03/2010 s/p CABG x 5 CKD (chronic kidney disease) stage 3, GFR 30-59 ml/min ([facility]) Deep vein thrombosis (DVT) of right lower extremity (HCC) 05/2010 s/p CABG Gout History of left NILA stroke 07/2022 History of right MCA stroke 05/2022 Hyperlipidemia Hypothyroidism Primary hypertension Seizure disorder ([facility]) Surgical History: Procedure Laterality Date CORONARY ARTERY BYPASS GRAFT 03/2010 x 5 vessel Family Medical History: No medical/psychiatric history of biological family memb ers was found on file. Social/Vocational History: Pt was unable to provide reliable history due to soren re aphasia and no family was available to provide collateral history, therefore most of the following information is taken from his medical chart. Per chart, pt is and lives with his in [place], [place]. No history of education, occupation, or driving history was found on file. Per chart, pt has a former history of tobacco use and no current alcohol or recr eational drug use. Per chart, no history of mental health diagnoses, psychothera py, psychiatric hospitalizations, SI/SA, or HI was found on file. Per chart, pt has been historically prescribed Quetiapine for agitation and Trazodone for inso mnia, and pt is currently prescribed Quetiapine 12.5 mg QHS for agitation and Tr azodone 75 mg QHS. Findings: Pt was alert however, he appeared significantly aphasic and not respon sive to inquiry. Pt was not responsive to yes/no questions or use of non-verbal gestures for communication purposes.The utility of testing was described however , pt did not appear to understand nor communicated agreeing to participate. Spee ch was absent , and thought processes could not be observed. Eye contact was nazanin iable and non-verbal behaviors were variable. Mood and affect were congruent and euthymic. Insight and judgment appeared poor. Pt's mood, sleep, pain, and cognition could not be evaluated due to observed com prehension difficulties and absent speech. This insurance writer attempted to administer the [place] Diagnostic Aphasia Examination (B HORTENCIA) Auditory Comprehension screen however, pt was unable to communicate an unde rstanding for the use of yes/no responses or use of nonverbal gestures. The purpose and method of the neurorehabilitation psychology service, as well as the limits of confidentiality, were described to the pt. Pt was informed that t his insurance writer is under supervision by Dr. Aimee Tovar and Dr. Alisa Granados. Th e intent and utility of testing was relayed, however, pt did not communicate an understanding regarding the need for his participation and use of services. Will revisit this information with pt in multiple visits due to pt's aphasia. Rehabilitation Recommendations: 1. Pt's cognition, mood, coping, and pain management will be monitored with kirstin tment initiated as indicated. 2. Pt and family will be provided with feedback and education as appropriate. 3. Due to comprehension difficulties and communication deficits, provider was un able to administer anxiety, depression, and cognitive screenings. Will return to administer. Expected Outcomes: 1. Pt will participate appropriately in rehabilitation therapy services. 2. Pt will likely require assistance at home to be provided by family. Thank you for asking our advice and opinion regarding the care of this pleasant pt. Vicente Duarte M.A. Automatic Brine Mixer Operator On [employer] ATTESTATION: I discussed this consult and pt's care with the music industry intern and agree with the report and POC as amended (in blue) above. Thank you for asking our ass istance. We will continue to follow. Alisa Granados, Ph.D. ACE FIRER * Anabela Mendoza, RD - 08/24/2022 4:36 PM CSTAssociated Order(s): CONSULT DIETITIAN; CONSULT DIETITIAN CLINICAL NUTRITION Clinical Nutrition Initial Assessment Name: Derek Castro Jr. : 1945 Age: 77 y.o. Admission Date: 08/24/2022 LOS: 0 days Date of Service: 08/24/2022 Recommendation: Bolus feeds of 5.5 cartons of Isosource 1.5 daily. Boluses given as 1.5 carto ns/bolus at 06 and 1 carton/bolus at 06-14-18. Provides 2062 kcals, 94 grams protein, and 1050 mls free water. Additional water flushes of 90 mls before and after each bolus feed. For 08/24 only: for 1500 and 1800 feed provide 1/2 carton then proceed with EN as ordered. The nutrition-related order modifications are made in communication with the primary service, who remains responsible for the orders and overall care of the patient. Comments: a 77 year oldmalewitha past medical historyof CAD s/p CABG , CKD, HTN, multiple ischemic CVAsin rigth NILA, MCA territories, Left parienta l lobe and bilateral cereberllar hemispheres(2019, May 2022, and Jul 2022)- christian peralta hasmild left sided ataxia, who wastransferred from OSH on 08/09 after be ing found slumped over by his . Patient was found to have left sided weaknes s, aphagia. OSH CT/CTA noted Left M2 occlusion. He was not a candidate for TNK r elated to recent ischemic stroke. Patient was transferred to [facility]-- he underwen t thrombectomy with TICI 3. MRI with acute moderate L MCA territory infarct.He was extubated 08/10. Repeat CT head 08/10 with evolving moderate sided left MCA t erritory infarct, with slight increased in localized mass effect. Patient has co ntinued dysphagia, warranting cor bib for nutrition.He is s/p PEG 08/20 and con tinues to be NPO related to dysphagia.Patients hospital course has been compli cated by dysphagia, leukocytosis, NEIL, cognitive impairment, global aphasia, as well as impaired mobility and activities of daily living. RD consulted on admission for EN recs. Pt followed by clinical nutrition during acute admission and most recently on Isosource 1.5 at 65 ml/hr x22 hrs (synthroi d hold) and tolerating well. Pt had PEG placed 08/20. On admission to rehab pt wa s appropriate for transition to bolus feeds. First 07/02 carton bolus feed given a t 1500 on 08/24. At time of RD visit, family not present. Pt currently with aphas ia and not able to provided subjective information. Noted wt trending down from initial admit to current wt. 214 lb son 08/09 and now 204 lbs. Will continue to mo nitor wt trends. Nutrition Assessment of Patient: ; ; Desired Weight: 74.3 kg BMI (Calculated): 31.11; BMI Categories Adult: Obesity Class I: 30-34.9; Pertinent Allergies/Intolerances: none Pertinent Labs: reviewed; Pertinent Meds: synthroid; Oral Diet Order: NPO; Current EN Order: Isosource 1.5 at 65 ml/hr x22 hrs (synthroid hold) Current Oral Intake: NPO Estimated Calorie Needs: 6155-2793 kcals (25-30 kcals/kg desired wt) Estimated Protein Needs: 90-111 grams (1.2-1.5 g/kg desired wt) Malnutrition Assessment: Does not meet criteria Nutrition Focused Physical Assessment: Edema: No; ; Pressure Injury: none Nutrition Diagnosis: Inadequate oral intake Etiology: dysphagia Signs & Symptoms: NPO with EN dependence Intervention / Plan: EN recs provided. Will monitor and adjust prn. Monitor labs, meds, diet advancement, and wt trends. Goals: EN tolerated and meeting 100% of nutritional needs Time Frame: Throughout stay Prevent further weight loss Time Frame: Throughout stay Anabela Mendoza MS, RDN, LD Clinical Dietitian - Department of Clinical Nutrition Available on [employer] (preferred) Desk Phone: [phone] ACE FIRER documented in this encounter Miscellaneous Notes * Care Plan - Anabela Mendoza RD - 09/13/2022 3:43 PM CDT Problem: Nutrition Deficit Goal: Adequate nutritional intake Flowsheets (Taken 09/13/2022 1543) Adequate nutritional intake: Manage tube feeding and enteral nutritional adminis tration Pt had video swallow this date and was advanced to pureed diet with thin liquids . Pt previously NPO. Pt now planned for discharge home 09/14 after training with all disciplines. RD called pts to discuss upgrade in diet and to discuss ch anges to tube feeds. Discussed pureed diet briefly and discussed ways to still g et protein while on pureed diet and discussed that DEPUTY HEAD is planning to go over di et further tomorrow. Notified of meeting with Daysi tomorrow. Per Daysi [place]ittington, Isosource 1.5 is currently out of stock. With available options Daysi able to provide, provided recs for Loreta [employer] 1.4. Pt will continue with Isosource 1.5 w ith 1 Nutrisource packet while admitted, but will be on Loreta B[employer] 1.4 without N utrisource due to difference in fiber content. Pt has tolerated EN well with exc eption of loose stools that are now better managed. Will continue to monitor whi le admitted. Recommendation: Diet order per DEPUTY HEAD recs: pureed diet with thin liquids. While admitted: Bolus feeds of 4 cartons of Isosource 1.5 daily and 1 Nutrisourc e fiber packet daily. Boluses given as 1 carton/bolus at 12-11-15. Provides 1 500 kcals, 68 grams protein, and 950 mls free water. Additional water flushes of 100 mls before and after each bolus feed. Once discharged: Boluses of 3.5 cartons of [employer] 1.4 daily. Boluses given a s 1-1-1-0.5 cartons/bolus with at least 3 hours between feeds. Provides 1592 kca ls, 70 grams protein, and 819 ml free leigh. Additional water flushes of 100 ml s before and after each bolus feed. If PO intake is minimal: rec increase regimen to 4 cartons per day to provide fu ll nutrition. Water flushes of 120 mls before/after each bolus feed. For loose stool management: Rec avoid magnesium oxide supplementation if able. Continue with fiber containing EN formula. The nutrition-related order modifications are made in communication with the [facility] service, who remains responsible for the orders and overall care of the [facility] ient. Anabela Mendoza, MS, RDN, LD Clinical Dietitian - Department of Clinical Nutrition Available on Vo[employer] (preferred) Desk Phone: [phone] * Care Plan - Anabela Mendoza RD - 09/10/2022 3:30 PM CDT Problem: Nutrition Deficit Goal: Adequate nutritional intake Flowsheets (Taken 09/10/2022 1530) Adequate nutritional intake: Manage tube feeding and enteral nutritional adminis tration RD following for EN management. The following adjustments were made to tube feed s this date: decrease EN regimen by 1/2 carton to better match nutritional needs , add 1 daily Nutrisource fiber packet, increase from 180 mls water flushes x5 t o 200 ml water flushes x5. Pt continues with frequent loose or pasty stools afte r removal of BIG magnesium oxide. Pt remains NPO. Noted pt had emesis after 0600 feed this morning. Will continue to monitor. Recommendation: Bolus feeds of 5 cartons of Isosource 1.5 daily. Boluses given as 1 carton/bolus at 29-55-93-. Provides 1875 kcals, 85 grams protein, and 950 mls free wate r. Additional water flushes of 100 mls before and after each bolus feed. For loose stool management: Rec continue without oral magnesium oxide as able. Rec IV magnesium sulfate if n eeding to resume magnesium supplementation. If pt continues with loose stools, add 1 more Nutrisource packet for total of 2 packets daily. If still continuing with loose stools and gas, consider starting elemental formu la (Peptamen 1.5). The nutrition-related order modifications are made in communication with the [facility] service, who remains responsible for the orders and overall care of the [facility] ient. Anabela Mendoza MS, KIM, LD Clinical Dietitian - Department of Clinical Nutrition Available on [employer] (preferred) Desk Phone: [phone] * Care Plan - Anabela Mendoza RD - 09/07/2022 12:34 PM CST Problem: Nutrition Deficit Goal: Adequate nutritional intake Flowsheets (Taken 09/07/2022 1234) Adequate nutritional intake: Manage tube feeding and enteral nutritional adminis tration Notified by RN and PT of ongoing loose stools and gas. Reviewed recent BM docume nted: 5 loose stools on 09/02, then 0-2 soft to loose stools 09/03-09/06, no BM yet to day. Noted that pt has been on BID magnesium oxide due to prior hypomagnesemia. Discussed discontinuing this with MD to avoid laxative effect. Colace and senna being held. Simethicone on board. Will continue to monitor loose stools. Recommendation: Continue bolus feeds of 5.5 cartons of Isosource 1.5 daily. Boluses given as 1.5 cartons/bolus at 06 and 1 carton/bolus at 06-14--. Provides 2062 kcals, 94 grams protein, and 1050 mls free water. Additional water flushes of 90 mls befor e and after each bolus feed. For loose stool management: Rec discontinue magnesium oxide as able. Rec magnesium sulfate if needing to res ume magnesium supplementation. If pt continues with loose stools, rec 1 packet BID Nutrisource Fiber via G-tube . If still continuing with loose stools and gas, consider starting elemental formu la (Peptamen 1.5). The nutrition-related order modifications are made in communication with the [facility] service, who remains responsible for the orders and overall care of the [facility]. Anabela Mendoza MS, MARCYN, LD Clinical Dietitian - Department of Clinical Nutrition Available on [employer] (preferred) Desk Phone: [phone] ACE FIRER * Rehab Team Conference - Luz Mcnamara, OT - 09/04/2022 11:58 AM CST Team Conference Note Date of Admission: 08/24/2022 Date of Team Conference: 09/04/2022 Derek Castro Jr. is a 77 y.o. male. : 1945 MRN#: [id number] Team Conference Attendees: Esme Harkins Attending Physician; Rosa Wheeler MD, Res ident Physician; Lashanda OWENSM, Nurse Parking Enforcement Officer; Luz Mcnamara OTR/L, Rehab Patient Account Specialist; Christiana Franco OTR, Occupational Therapy; Louise Mcdonald, DPT, Physical Therapy; Lady Downey DEPUTY HEAD, Speech Therapy; Zoë Kennedy FLUTE POLISHER, Recreational Therapist; Spencer Tucker PharmD, Pharmacy; Anabela Mendoza RD LD, Clinical Nu trition; Aimee Tovar PhD, ABPP, Neuropsychology, Ayala Ramirez, RN Nursing Medical Update: Derek Castro Jr. is a 77 y.o. male admitted to rehabilitation for Left sided Left M2 occlusion s/p IR w/ a TICI 3 and Basal ganglia infarct. Medical updates this week: Voiding trial, seizure activity, agitation, thrush tr eatment Medical barriers to discharge: lake, tube feeds, cognition, safe discharge plan PCP Follow-up (Nelson Calderon, ) Other Follow-up Appointments: PM&R (10/23), neurology (pend) Spd Manager: Tolerating tube feeds Team Goal: Patient will perform: at ambulation level, household mobility, Stand by assistan ce, With caregiver assistance, Progressing Pt will perform basic care and transfer with: Moderate assistance Discharge Planning Discharge Date: 09/17/2022 NCM met with pt at bedside to introduce self. Pt alert but not responsive to que stions. Informed pt that NCM will contact to complete assessment. CO at bed side. NCM contacted pt's Joycelyn to complete assessment. Pt lives with his in a 1 level home with wheelchair ramp entry. Bathroom has a tub/shower combo but w nilda is trying to install a walk in shower. Home is wheelchair accessible. o wns a power wheelchair that she uses when going out to the grocery store. Pt's son and live in a trailer next door and son will be able to assist as needed. can provide assistance but has physical limitations. She is marta r with caring for lake's and is willing to learn TF if needed. Pt also has a ni ade and granddaughter in the medical field that can provide some assistance. Pt has hx of HH in the past. unsure of agency. Pt was at a SNF about a year ago after his first stroke. reports he is in much worse shape this time. Pt would likely not agree to return to that SNF ([facility] [place] [facility] Pt has [employer] and RX coverage. Pt fills at [facility] in [place]. Eliquis is new and will likely need to be rocha checked. PCP is Dr. Calderon. Son will transport pt home. reports pt has hx of voiding trials were it took him some times to be able to void. will be available as needed to come to the unit but will need to know in ad tovar since it is about a 2-[address] is DPOA and has paperwork that she will bring to the unit to upload to [facility] list. Per online [facility] Formulary - Eliquis is Tier 1 $0 co pay. Plan Discharge home with assistance from and son, HH PT/OT/DEPUTY HEAD DME TBD Rehabilitation Plan Progress Does have some automatic actions with ADL tasks Improving tolerance to increased gait distance completion Language: Limited assessment due to poor command execution and limited verbal output Unable to fully assess receptive/expressive language skills at this time due to limited verbal output/participation - Will continue to assess language abilities through informal/dynamic asses sment and formal assessment as able No reliable form of communication established at this time - trialed nonverbal gestures and yes/no communication board Dysphagia: Pt is NPO with PEG Targeting PO trials and dysphagia exercises as able Barriers/Concerns Aphasia Cognition R inattention Apraxic 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 Fall risk Discharge Recommendations: Consistent supervision from a cognitive standpoint Assistance vs supervision with medication and finance management due to cognitiv e impairment -- Assistance completing pillbox set up and monthly bill pay -- Reminders to take medications at appropriate time throughout the day Ongoing ST services at the next level of care targeting cognition, language, dys phagia Current Barriers: Poor insight/awareness into deficits Cognition (poor carryover of education, attention deficits, reduced problem solv ing/reasoning for daily activities) NPO Limited participation/motivation Aphasia (increased difficulty expressing daily wants/needs and participating in conversation) Unable to call for help if alone in an emergency situation Impulsive behaviors Unknown who will provide assistance with medication/finance management upon disc harge High burden of care Family teaching medications, tube feedings, general safety. Plan continue gait and other automatic activities (HIGT?), stairs, standing endurance /balance, dynamic balance as able, outcomes pending comprehension command following; progress transfers; repetitive ADLs; oral care as able no noted pain/ no skin issue/ aspiration, saftey watch for peg tube and lake unstable gait Weekly Team Goals Offer ice chips per protocol posted in pt's room Prioritize frequent, thorough oral care Encourage ADL performance as able Promote OOB positioning including up to chair for all meal times Family training when appropriate and family is available Goals Weekly Goals Weekly Bed Mobility Goals: Patient will perform sit to supine with, Patient will perform supine to sit with Patient will perform sit to supine with: Minimum assistance, Progressing Patient will perform supine to sit with: Minimum assistance, Progressing Weekly Transfer Goals: Patient will complete sit to stand transfer with, Patient will complete stand to sit transfer with, Patient will complete stand pivot tra nsfer with Patient will complete sit to stand transfer with: Minimum assistance, Progressin g Patient will complete stand to sit transfer with: Minimum assistance, Progressin g Patient will complete stand pivot transfer with: Minimum assistance, Progressing Weekly Ambulation/Stairs Goals: Patient will ambulate Patient will ambulate: 50 feet, Least assistive device, Moderate assistance, Pro gressing Weekly Goals Patient Will Perform UE Dressing: In Chair, w/ Maximum Assist Patient Will Perform Grooming: in Wheelchair, w/ Moderate Assist Pt Will Perform All Functional Transfers: Maximum Assist Quality Indicators Swallowing/Nutritional Status: Tube/parenteral feeding Bladder Continence: 9-Not applicable (Indwelling catheter or ostomy) Bowel continence: 3-Always incontinent ACE FIRER Associated attestation - Esme Harkins MD - 09/04/2022 12:08 PM FURNACE FIRER I personally led the interdisciplinary team meeting and concur with all decision s made by the interdisciplinary team. Esme Harkins MD * Care Plan - Anabela Mendoza RD - 09/03/2022 11:27 AM CST Problem: Nutrition Deficit Goal: Adequate nutritional intake Flowsheets (Taken 09/03/2022 1127) Adequate nutritional intake: Manage tube feeding and enteral nutritional adminis tration RD following for EN management. Pt continues to receive EN at goal. Noted pt wit h frequent loose stools documented (5 loose BM recorded on 09/02). No BM documente d yet 09/03. All bowel meds on hold currently. Wt possibly trending down (all bed scales; 204 lbs 08/24, 213 lbs 08/27, 198 lbs 09/03). Phos 1.8. Will continue to mon itor. Recommendation: Continue bolus feeds of 5.5 cartons of Isosource 1.5 daily. Boluses given as 1.5 cartons/bolus at and 1 carton/bolus at 06-14-. Provides 2062 kcals, 94 grams protein, and 1050 mls free water. Additional water flushes of 90 mls befor e and after each bolus feed. If pt continues with loose stools, rec 1 packet BID Nutrisource Fiber via G-tube . The nutrition-related order modifications are made in communication with the [facility] service, who remains responsible for the orders and overall care of the [facility] ient. Anabela Mendoza, MS, RDN, LD Clinical Dietitian - Department of Clinical Nutrition Available on Voalte (preferred) Desk Phone: [phone] ACE FIRER * Care Plan - Anabela Mendoza RD - 08/30/2022 2:05 PM CST Problem: Nutrition Deficit Goal: Adequate nutritional intake Flowsheets (Taken 08/30/2022 1405) Adequate nutritional intake: Manage tube feeding and enteral nutritional adminis tration RD following for EN management. Pt busy with nursing staff at time of attempted visit. Reviewed EN; pt receiving at goal and no concerns noted. Pt remains NPO a t this time. Will continue to monitor. Recommendation: Continue bolus feeds of 5.5 cartons of Isosource 1.5 daily. Boluses given as 1.5 cartons/bolus at 06 and 1 carton/bolus at 1215-18-22. Provides 2062 kcals, 94 grams protein, and 1050 mls free water. Additional water flushes of 90 mls befor e and after each bolus feed. The nutrition-related order modifications are made in communication with the [facility] service, who remains responsible for the orders and overall care of the [facility]. Anabela Mendoza, MS, MARCYN, LD Clinical Dietitian - Department of Clinical Nutrition Available on [employer] ([employer]) Desk Phone: [phone] ACE FIRER * Rehab Team Conference - Luz Mcnamara OT - 08/28/2022 10:36 AM CST Team Conference Note Date of Admission: 08/24/2022 Date of Team Conference: 08/28/2022 Derek Castro Jr. is a 77 y.o. male. : 1945 MRN#: [id number] Team Conference Attendees: Esme Harkins Attending Physician; Phuong Ruiz MD, Resident Physician; Alisa BEDOYA, Nurse Parking Enforcement Officer; Luz Mcnamara OTR/L, Rehab Patient Account Specialist; Christiana Franco OTR, Occupational Therapy; Louise Mcdonald, EVET, P hysical Therapy; Suzy Rees DEPUTY HEAD, Speech Therapy; Zoë Kennedy FLUTE POLISHER, Recr eational Therapist; Agustina Handy PharmD, Pharmacy; Anabela Mendoza RD LD, Clin ical Nutrition; Aimee Tovar PhD, ABPP, Neuropsychology, Veronika Freeman, RN Nursi Medical Update: Derek Castro Jr. is a 77 y.o. male admitted to rehabilitation for Left sided Left M2 occlusion s/p IR w/ a TICI 3 and Basal ganglia infarct. Medical updates this week: monitoring agitation overnight (scheduled trazodone a nd Seroquel at HS), tentative plan for lake removal 08/29 or after Medical barriers to discharge: lake, tube feeds, cognition, safe discharge plan PCP Follow-up (Nelson Calderon, ) Other Follow-up Appointments: will need pm&r and neurology Spd Manager: Monitor tube feeds Team Goal: Patient will perform: at ambulation level, household mobility, Minimum assistanc e, With caregiver assistance Pt will perform basic care and transfer with: Moderate assistance Discharge Planning Discharge Date: 09/17/2022 NCM met with pt at bedside to introduce self. Pt alert but not responsive to que stions. Informed pt that NCM will contact to complete assessment. CO at bed side. NCM contacted pt's Joycelyn to complete assessment. Pt lives with his in a 1 level home with wheelchair ramp entry. Bathroom has a tub/shower combo but w nilda is trying to install a walk in shower. Home is wheelchair accessible. o wns a power wheelchair that she uses when going out to the grocery store. Pt's son and live in a trailer next door and son will be able to assist as needed. can provide assistance but has physical limitations. She is marta r with caring for lake's and is willing to learn TF if needed. Pt also has a ni ade and granddaughter in the medical field that can provide some assistance. Pt has hx of HH in the past. unsure of agency. Pt was at a SNF about a year ago after his first stroke. reports he is in much worse shape this time. Pt would likely not agree to return to that SNF ([facility] [place] [facility] Pt has [employer] Medicare and RX coverage. Pt fills at [facility] in [place]. Eliquis is new and will likely need to be rocha checked. PCP is Dr. Calderon. Son will transport pt home. reports pt has hx of voiding trials were it took him some times to be able to void. will be available as needed to come to the unit but will need to know in ad tovar since it is about a 2-[address]. is DPOA and has paperwork that she will bring to the unit to upload to mary [facility] for Home Health list. Per online [facility] Formulary - Eliquis is Tier 1 $0 co pay. Plan Discharge home with assistance from and son, HH PT/OT/DEPUTY HEAD DME TBD Rehabilitation Plan Progress Minimal due to recent admit Does have some automatic actions with ADL tasks Language: -- Limited assessment due to recent admit -- Unable to fully assess receptive/expressive language skills at this time due to limited verbal output/participation - Will continue to assess language abilities through informal/dynamic asses sment and formal assessment as able] -- No reliable form of communication established at this time - trialed nonverbal gestures and yes/no communication board; Dysphagia: -- Pt is NPO with PEG -- Targeting PO trials and dysphagia exercises as able Barriers/Concerns Aphasia Cognition R inattention Apraxic lives 2 hours away Requires max cues for initiation and termination of activities Only performs automatic movements Moderate assist for gait, demonstrates festinating like gait patterns. Would benefit from understanding patients interests Total assist for ADLs d/t cueing Discharge Recommendations: 1. Consistent supervision from a cognitive standpoint 2. Assistance vs supervision with medication and finance management due to cogni tive impairment vs vision deficits vs UE impairment -- Assistance completing pillbox set up -- Reminders to take medications at appropriate time throughout the day -- External reminder (i.e. alarm in phone) to take medication at appropri ate time of day -- Assistance completing bill pay 3. Ongoing ST services at the next level of care targeting cognition, language, dysphagia Current Barriers: 1. Poor insight/awareness into deficits 2. Cognition (poor carryover of education, attention deficits, reduced problem s olving/reasoning for daily activities) 3. NPO 4. Limited participation/motivation 5. Aphasia (increased difficulty expressing daily wants/needs and participating in conversation) 6. Unable to call for help if alone in an emergency situation 7. Impulsive behaviors 8. Unknown who will provide assistance with medication/finance management upon d ischarge 9. High burden of care Family teaching medications, tube feedings, general safety. Plan Obtain PLOF and home environment info, outcome measures, HIGT, sit to stands, R side attention training command following; progress transfers; RUE re-ed; visual scanning non verbal signs of pain, PRN Tylenol given, helpful. No new skin issues, poor s afety awareness, requiring CO. Weekly Team Goals Offer ice chips per protocol posted in pt's room Prioritize frequent, thorough oral care 3x/day Continue to assess for best communication strategies Identify leisure and recreation interests Family training when spouse/son present Goals Weekly Goals Weekly Bed Mobility Goals: Patient will perform sit to supine with, Patient will perform supine to sit with Patient will perform sit to supine with: Minimum assistance Patient will perform supine to sit with: Minimum assistance Weekly Transfer Goals: Patient will complete sit to stand transfer with, Patient will complete stand to sit transfer with, Patient will complete stand pivot tra nsfer with Patient will complete stand to sit transfer with: Minimum assistance Patient will complete stand pivot transfer with: Minimum assistance Weekly Ambulation/Stairs Goals: Patient will ambulate Patient will ambulate: 50 feet, Least assistive device, Moderate assistance Weekly Goals Patient Will Perform UE Dressing: In Chair, w/ Maximum Assist Patient Will Perform Grooming: in Wheelchair, w/ Moderate Assist Pt Will Perform All Functional Transfers: Maximum Assist Quality Indicators Swallowing/Nutritional Status: Tube/parenteral feeding Bladder Continence: 9-Not applicable (Indwelling catheter or ostomy) Bowel continence: 1-Occasionally incontinent (1 episode of incontinence in the l ast 3 days, all others continent) ACE FIRER Associated attestation - Esme Harkins MD - 08/28/2022 10:48 AM FURNACE FIRER I personally led the interdisciplinary team meeting and concur with all decision s made by the interdisciplinary team. Esme Harkins MD * Rehab Team [employer] Marker/Case Management Support/Ongoing Services/DME - Lashanda Ortega RN - 08/28/2022 9:29 AM CST NCM met with pt at bedside to introduce self. Pt alert but not responsive to que stions. Informed pt that NCM will contact to complete assessment. CO at bed side. NCM contacted pt's Joycelyn to complete assessment. Pt lives with his in a 1 level home with wheelchair ramp entry. Bathroom has a tub/shower combo but w nilda is trying to install a walk in shower. Home is wheelchair accessible. o wns a power wheelchair that she uses when going out to the grocery store. Pt's son and live in a trailer next door and son will be able to assist as needed. can provide assistance but has physical limitations. She is marta r with caring for lake's and is willing to learn TF if needed. Pt also has a ni ade and granddaughter in the medical field that can provide some assistance. Pt has hx of HH in the past. unsure of agency. Pt was at a SNF about a year ago after his first stroke. reports he is in much worse shape this time. Pt would likely not agree to return to that SNF ([facility] [place] [facility] Pt has [employer] Medicare and RX coverage. Pt fills at [facility] in [place]. Eliquis is new and will likely need to be rocha checked. PCP is Dr. Calderon. Son will transport pt home. reports pt has hx of voiding trials were it took him some times to be able to void. will be available as needed to come to the unit but will need to know in ad tovar since it is about a 2-2.[address]. is DPOA and has paperwork that she will bring to the unit to upload to mary [facility] for Home Health list. Per online [facility] Formulary - Eliquis is Tier 1 $0 co pay. Patient's choice for FIELD SERVICE TECHNICIAN POULTRY 1) [facility], 2) [facility], 3) [facility]; referral faxed via [employer] to [facility], awaiting response [facility] confirmed patient's PCP, Coni Nguyen APRN, [place], [place], updated Epic. Spouse asking about a hospital bed with a rotating mattress ACE FIRER * Care Plan - Anabela Mendoza RD - 08/27/2022 2:40 PM CST Problem: Nutrition Deficit Goal: Adequate nutritional intake Flowsheets (Taken 08/27/2022 1440) Adequate nutritional intake: Manage tube feeding and enteral nutritional adminis tration RD following for EN management. Pt receiving EN at goal. Pt remains aphasic, wif e not at bedside. RN reports no concerns with EN. No changes needed to EN at thi s time. LBM 08/27. Will continue to monitor. Recommendation: Continue bolus feeds of 5.5 cartons of Isosource 1.5 daily. Boluses given as 1.5 cartons/bolus at 06 and 1 carton/bolus at 15--. Provides 2062 kcals, 94 grams protein, and 1050 mls free water. Additional water flushes of 90 mls befor e and after each bolus feed. The nutrition-related order modifications are made in communication with the [facility] service, who remains responsible for the orders and overall care of the [facility] ient. Anabela Mendoza, MS, RDN, LD Clinical Dietitian - Department of Clinical Nutrition Available on [employer] ([employer]era[employer]) Desk Phone: [phone] ACE FIRER * Rehab Team Physician - Rosa Wheeler MD - 08/27/2022 2:21 PM CST Derek Castro Jr. is a 77 y.o. male admitted to rehabilitation for Left sided Left M2 occlusion s/p IR w/ a TICI 3 and Basal ganglia infarct. Medical updates this week: sleep, hypotension management, infectious work-up Medical barriers to discharge: none PCP Follow-up (Nelson Calderon, ) Other Follow-up Appointments: PM&R (10/23), neurology (12/13), urology (pending) * Rehab Care Plan - Esme Harkins MD - 08/26/2022 9:47 AM CST Physical Medicine & Rehabilitation Individualized Overall Plan of Care Date of Service: 08/26/2022 Name: Derek Castro Jr. : 1945 Age: 77 y.o. Admission Date: 08/24/2022 LOS: 2 days Date of Service: 08/26/2022 Insurance: Medicare Repl Date of Admission: 08/24/2022 Hospital Course: a 77 year oldmalewith a past medical history of CAD s/p CABG, CKD, HTN, multiple ischemic CVAsin rigth NILA, MCA territories , Left pariental lobe and bilateral cereberllar hemispheres(2019, May 2022, an d Jul 2022)- patient hasmild left sided ataxia, who wastransferred from OSH on 08/09 after being found slumped over by his . Patient was found to have lef t sided weakness, aphagia. OSH CT/CTA noted Left M2 occlusion. He was not a cand idate for TNK related to recent ischemic stroke. Patient was transferred to [facility]-- he underwent thrombectomy with TICI 3. MRI with acute moderate L MCA territo ry infarct.He was extubated 08/10. Repeat CT head 08/10 with evolving moderate s ided left MCA territory infarct, with slight increased in localized mass effect. Patient has continued dysphagia, warranting cor bib for nutrition. He is s/p PEG 08/20 and continues to be NPO related to dysphagia. Patients hospital course has been complicated by dysphagia, leukocytosis, NEIL, cognitive impairment, global aphasia, as well as impaired mobility and activities of daily living. Patient has been working with physical and occupational therapy since 08-12-2022 and has been making functional gains. Patient is anticipated to return to home a t the modified independent level of care. Patient has also been working with [facility] language pathology on dysphagia; however will also receive formal cognitive evaluation to assess for baseline status and any new cognitive/linguistic defici ts. Rehab Diagnosis: stroke Aphasia, Cognitive impairment, Dysphagia, Hemiplegia, Pain and Weakness Medical Course since IRF Admission: The patients clinical course since admission has been stable. The patient hunter s been able to participate fully in the rehabilitation program due to management of sleep, mood, medical comorbidities and we have addressed in the following wa ys: medications and modalities. Medical Prognosis: Fair The patient has a reasonable likelihood of fully participating in and completing the IRF stay based on ability to manage medical issues including acute stroke, prior cruz, anticoagulation, aphasia, dysphagia, neurogenic bowel/bladder. Th ere is a reasonable expectation of several years of productive life in a communi ty setting in which they will benefit from this stay. This patient meets medical necessity requiring the intensity of therapy availabl e at the [facility]. The patient can participate i n and can fully benefit from the services offered in the IRF setting including 2 4 hour rehabilitation nursing, daily oversight from the Buttonhole Maker Hand, and complex interdisciplinary rehab as noted below. Quality Indicators: Current Level of Function Evaluation QI Current QI Transfer: Sit to stand assist level: Moderate assistance Gait Distance: 100 feet (80' x 10) GAIT: Assist Level: Total assistance Gait: Assistive Device: ([place]) Stair: Assist Level: Not safe to attempt Bathing Assist: Total Assist UE Dressing Assist: Total Assist LE Dressing Assist: Total Assist Patient continent of bladder?: Indwelling catheter or ostomy Transfer: Sit to stand assist level: Moderate assistance Gait Distance: 100 feet (80' x 10) GAIT: Assist Level: Total assistance Gait: Assistive Device: ([place]) Stair: Assist Level: Not safe to attempt Bathing Assist: Total Assist UE Dressing Assist: Total Assist LE Dressing Assist: Total Assist Patient continent of bladder?: Indwelling catheter or ostomy PT recommended equipment: OT recommended equipment: Physical Therapy Goals Patient will perform: at ambulation level, household mobility, Minimum assistanc e, With caregiver assistance Occupational Therapy Goals min assist with basic adls Speech Therapy Goals Patient Will Exhibit a Safe Swallow for the Least Restrictive Consistency with u se of Swallow Strategies Provided with: Minimum assist (goal) Patient Will Improve Motor Planning to Communicate Wants and Needs with: Minimum assist (goal) Patient Will Improve Auditory Comprehension to Follow Conversation and Direction s for Daily Living with: Minimum assist (goal) Patient Will Express Basic Wants and Needs for Daily Living Skills with: Minimum assist (goal) Nursing Goals safety awareness, basic communication to get needs known, min assist of 1. Additional therapeutic disciplines may be included during this stay if indicated during interdisciplinary communication and will be noted in the daily progress notes when relevant. Social Work will address discharge planning needs. Rehabilitation Plan Patient will receive Physical therapy, Occupational therapy and Speech therapy e ach 60 minutes a day, 5 days a week for a total of 3 hours daily (minimum) for t he duration of the rehabilitation stay within an interdisciplinary rehabilitatio n program with therapeutic case manager/social science professor, siebel crm developer, neuropsychologist, rehab n leslieing and PM&R oversight. Rehabilitation Prognosis: Good, anticipate steady functional gains with PT, OT, and DEPUTY HEAD to return home with family support. Tolerance for three hours of therapy a day: Good, patient is tolerating 3 hours of therapy per day, as required. Goals/Barriers/Facilitators Family / Patient Goals: Patient would like to regain strength and endurance to s afely return home. Mobility Goals: Updated per therapy evaluation as above Activities of Daily Living (ADLs) Goals: Updated per therapy evaluation as above . Cognition / Communication Goals: Updated per therapy evaluation as above. Discharge Planning Expected Length of Stay 4-5 week(s) Expected Discharge Disposition Home Expected Discharge Needs PT, OT, DEPUTY HEAD, Nursing, Wheelchair and Walker The patient should reach their current goals by noted projected discharge date. This plan of care was formulated based upon a review of the progress this annamarie t made with therapies during the acute hospital stay, the goals set by the [facility] rehabilitation therapists at the time of their initial assessment, and my e xpertise in caring for patients with this rehabilitation diagnosis and accompany ing comorbidities. Esme Harkins MD 08/26/22 9:47 AM ACE FIRER * Rehab Pre-Admission Screening - Laureen Luna RN - 08/24/2022 10:35 AM FURNACE FIRER Physical Medicine & Rehabilitation Pre-Admission Screening Derek Castro Jr. is a 77 y.o. male. : 1945 Primary Insurance: [employer] Financial Class: Medicare [facility] Date of Hospital Admission: 08-09-2022 Date of Expected Rehab Admission: 08-24-2022 Precautions: Fall, aspiration and seizure Weight bearing Precautions: WBAT Medical Course Hospital Course: a 77 year oldmalewith a past medical history of CAD s/p CABG, CKD, HTN, multiple ischemic CVAsin rigth NILA, MCA territories, Left pariental lobe and bilateral cereberllar hemispheres(2019, May 2022, and Jul 2022)- megan ent hasmild left sided ataxia, who [facility] after bein g found slumped over by his . Patient was found to have left sided weakness, aphagia. OSH CT/CTA noted Left M2 occlusion. He was not a candidate for TNK rel ated to recent ischemic stroke. Patient was transferred to [facility]-- he underwent thrombectomy with TICI 3. MRI with acute moderate L MCA territory infarct.He w as extubated 08/10. Repeat CT head 08/10 with evolving moderate sided left MCA ter ritory infarct, with slight increased in localized mass effect. Patient has cont inued dysphagia, warranting cor bib for nutrition. He is s/p PEG 08/20 and contin ues to be NPO related to dysphagia. Patients hospital course has been complicate d by dysphagia, leukocytosis, NEIL, cognitive impairment, global aphasia, as well as impaired mobility and activities of daily living. Patient [...] Other Current Level of Function Physical Therapy: 08-24-2022 Bed Mobility/Transfer Bed Mobility: Supine to Sit: [...] step length Activity Limited By: Patient Choice Occupational Therapy: 08-23-2022 Vision Comment: Pt making [...] lights turned on for session. Speech Therapy: Pt will continue to work with DEPUTY HEAD on dysphagia and cognition. Rehabilitation Plan Rehab Diagnosis and conditions that [...] the hemiparet ic side. 6. Neurogenic Bladder: field operator to work with the patient and family [...] poor post-o perative mobility and performance. Consult Spd Manager on recommendations for hea lthy diet. 12. [...] sedation due to pain medications. This will require daily medication adjustments to find the balance between meaningful part icipation in therapies and pain control, avoid the potential for addiction, whil e facilitating the rehabilitation for their condition. Will continue to monitor and adjust medication regimen in order to maximize [...] to ambulate frequently with the assistance of [facility] care provider. Patient will receive Physical therapy, Occupational therapy and Speech therapy e ach 60 minutes a day, 5 days a week for a total of 3 hours daily (minimum) for t he duration of the rehabilitation stay within an interdisciplinary rehabilitatio n program with therapeutic case manager/social science professor, siebel crm developer, neuropsychologist, rehab n ursing and PM&R oversight. Rehabilitation Prognosis: Fair to good Medical Prognosis: The patient is deemed medically stable to tolerate, benefit f rom, and participate in [facility] level services. Tolerance for three hours of [...] nt progress with caregivers when appropriate. High [place] of Care: Initiate interdisciplinary rehabilitation to improve [...] Expected Discharge Disposition Home CHARLI Liang, RN ACE FIRER Associated attestation - Frank Francis MD - 08/24/2022 10:52 AM FURNACE FIRER I have reviewed this pre-admission screen and approve the recommendations and pl ans for admission. Derek Castro Jr. is a 77 y.o. male with past medical history of multi-focal CVAs who presented with L MCA territory stroke s/p thrombectomy with TICI 3. The pat ient has persistent deficits and goals with PT, OT, and DEPUTY HEAD now requiring closer monitoring as physical requirements in rehabilitation increase and potentially impacting functional recovery, which puts the patient at risk of DVT and pressur e injury to skin in the setting of decreased mobility. Additionally, the patien t will likely benefit from aggressive clinical education including management of safe mobility to ensure fall prevention, to improve compliance and reduce likel ihood of complication or readmission to acute care. All of these clinical issue s require daily physician oversight to reach target clinical and functional goal s prior to discharge home. The patient is clinically/medically stable for admis miladys to acute inpatient rehabilitation at this time. Treatment Plan (including disciplines, frequency and duration) We will initiate a comprehensive rehab program working on strengthening, enduran ce and safety with regard to transfer training, ambulation, dressing, bathing an d grooming. Rehab nursing will be involved to monitor bowel and bladder functio n, skin integrity, administration of medications and family and patient educatio n and therapy carryover. The patient will have intensive therapies with physical therapy 1 hour(s), occup ational therapy 1 hour(s), and speech language pathology 1 hour(s) for a minimum of 3 hours a day 5 days a week for the duration of the acute inpatient rehabili tation stay. Frank Francis MD documented in this encounter Plan of Treatment Not on filedocumented as of this encounter Goals Goal Patient Associated Recent Progress Patient-Stat Aut hor Goal Type Problems ed? Remain independent Hospital Not on track No Licha, (08/10/2022 11:58 AM ROSENDO Guillen F[employer]NACE FIRER) documented as of this encounter Procedures Comments Procedure Name Priority Date/Time Associated Diag nosis SWALLOW MOTION SERIES Routine 09/13/2022 2:28 PM CDT HC CBC AUTOMATED (HPCT) 09/13/2022 6:43 AM CDT HC PHOSPHOROUS, SERUM 09/13/2022 6:43 AM CDT HC MAGNESIUM 09/13/2022 6:43 AM CDT HC BASIC METABOLIC PANEL 09/13/2022 6:43 AM CDT HC CBC W/ AUTOMATED DIFF Routine 09/10/2022 3:10 PM CDT HC LACTIC ACID(LACTATE) Routine 09/10/2022 3:10 PM CDT BASIC METABOLIC PANEL Routine 09/10/2022 3:10 PM CDT CHEST SINGLE VIEW AUBRIE 09/10/2022 3:04 PM CDT ECG 12-LEAD Routine 09/10/2022 10:04 AM CDT HC CBC AUTOMATED (HPCT) Routine 09/10/2022 7:20 AM CDT HC PHOSPHOROUS, SERUM Routine 09/10/2022 7:20 AM CDT HC MAGNESIUM Routine 09/10/2022 7:20 AM CDT HC COMPREHENSIVE Routine 09/10/2022 METABOLIC PANEL 7:20 AM CDT HC CBC AUTOMATED (HPCT) Routine 09/07/2022 7:25 AM FURNACE FIRER HC PHOSPHOROUS, SERUM Routine 09/07/2022 7:25 AM FURNACE FIRER HC MAGNESIUM Routine 09/07/2022 7:25 AM FURNACE FIRER HC COMPREHENSIVE Routine 09/07/2022 METABOLIC PANEL 7:25 AM FURNACE FIRER HC CBC AUTOMATED (HPCT) Routine 09/05/2022 7:17 AM FURNACE FIRER HC PHOSPHOROUS, SERUM Routine 09/05/2022 7:17 AM FURNACE FIRER HC MAGNESIUM Routine 09/05/2022 7:17 AM FURNACE FIRER HC COMPREHENSIVE Routine 09/05/2022 METABOLIC PANEL 7:17 AM FURNACE FIRER HC CBC AUTOMATED (HPCT) Routine 09/03/2022 7:56 AM FURNACE FIRER HC PHOSPHOROUS, SERUM Routine 09/03/2022 7:56 AM FURNACE FIRER HC MAGNESIUM Routine 09/03/2022 7:56 AM FURNACE FIRER HC COMPREHENSIVE Routine 09/03/2022 METABOLIC PANEL 7:56 AM FURNACE FIRER HC BASIC METABOLIC PANEL Routine 08/31/2022 (CH7CT) 7:43 AM FURNACE FIRER HC CBC AUTOMATED (HPCT) Routine 08/31/2022 7:43 AM FURNACE FIRER HC BASIC METABOLIC PANEL Routine 08/29/2022 (CH7CT) 10:55 AM FURNACE FIRER HC CBC AUTOMATED (HPCT) Routine 08/29/2022 10:55 AM FURNACE FIRER HC BASIC METABOLIC PANEL Routine 08/28/2022 (CH7CT) 9:49 AM FURNACE FIRER HC CBC AUTOMATED (HPCT) Routine 08/28/2022 9:49 AM FURNACE FIRER HC BASIC METABOLIC PANEL Routine 08/27/2022 (CH7CT) 10:42 AM FURNACE FIRER HC CBC AUTOMATED (HPCT) Routine 08/27/2022 10:42 AM FURNACE FIRER HC BASIC METABOLIC PANEL Routine 08/25/2022 (CH7CT) 12:56 PM FURNACE FIRER HC CBC AUTOMATED (HPCT) Routine 08/25/2022 12:56 PM FURNACE FIRER documented in this encounter Results * SWALLOW MOTION SERIES (09/13/2022 2:28 PM CDT) Modality Anatomical Region Laterality Radio Fluoroscopy NECK [...] Reynoso M.D. on 09/13/2022 2:28 PM. Esme Harkins MD FLUOROSCOPY ORDERABLES * PHOSPHORUS (09/13/2022 6:43 AM CDT) Pathologist Signature Component Value Ref Test Method Analysis Performed A t Range Time Phosphorus 2.5 2.0 - 09/13/2022 [facility] DEPT PAT H AND 4.5 8:11 AM LAB MEDICINE MG/DL CDT Anatomical Location / Laterality Collection Method / Volume Juvenal ection Time Received Time Specimen (Source) 09/13/2022 6:43 AM CDT 09/14/19 23 7:16 AM CDT Ryan Seay DO LABORATORY ORDERABLES [facility]/ZIP Code Phone Number Performing [place] [address] [facility] DEPT PATH AND [address] LAB MEDICINE * MAGNESIUM (09/13/2022 6:43 AM CDT) Pathologist Signature Component Value Ref Test Method Analysis Performed A t Range Time Magnesium 1.9 1.6 - 09/13/2022 [facility] DEPT PAT H AND 2.6 8:11 AM LAB MEDICINE mg/dL CDT Anatomical Location / Laterality Collection Method / Volume Juvenal ection Time Received Time Specimen (Source) 09/13/2022 6:43 AM CDT 09/14/19 7:16 AM CDT Ryan Seay DO LABORATORY ORDERABLES [facility]/ZIP Code Phone Number Performing [place] [address] [employer] DEPT PATH AND [address] LAB MEDICINE * (ABNORMAL) CBC CELLULAR THERAPEUTICS (09/13/2022 6:43 AM CDT) Pathologist Signature Component Value Ref Test Method Analysis Performed A t Range Time White Blood Cells 7.0 4.5 - 09/13/2022 [facility] DE PT PATH AND 11.0 7:45 AM LAB MEDICINE K/UL CDT RBC 4.34 (L) 4.4 - 09/13/2022 [facility] DEPT PAT H AND 5.5 M/UL 7:45 AM LAB MEDICINE CDT Hemoglobin 13.1 (L) 13.5 - 09/13/2022 [facility] DEPT PAT H AND 16.5 7:45 AM LAB MEDICINE GM/DL CDT Hematocrit 39.5 (L) 40 - 50 09/13/2022 [facility] DEPT PAT H AND % 7:45 AM LAB MEDICINE CDT MCV 91.0 80 - 100 09/13/2022 [facility] DEPT PAT H AND FL 7:45 AM LAB MEDICINE CDT MCH 30.3 26 - 34 09/13/2022 [facility] DEPT PAT H AND PG 7:45 AM LAB MEDICINE CDT MCHC 33.2 32.0 - 09/13/2022 [facility] DEPT PAT H AND 36.0 7:45 AM LAB MEDICINE G/DL CDT RDW 14.8 11 - 15 09/13/2022 [facility] DEPT PAT H AND % 7:45 AM LAB MEDICINE CDT Platelet Count 192 150 - 09/13/2022 [facility] DEPT PATH AND 400 K/UL 7:45 AM LAB MEDICINE CDT MPV 9.5 7 - 11 09/13/2022 [facility] DEPT PAT H AND FL 7:45 AM LAB MEDICINE CDT Anatomical Location / Laterality Collection Method / Volume Juvenal ection Time Received Time Specimen (Source) 09/13/2022 6:43 AM CDT 09/14/19 23 7:16 AM CDT Ryan Seay DO LABORATORY ORDERABLES City/State/ZIP Code Phone Number Performing [place] [address] [facility] DEPT PATH AND [address] [facility] LAB MEDICINE * (ABNORMAL) BASIC METABOLIC PANEL (09/13/2022 6:43 AM CDT) Pathologist Signature Component Value Ref Test Method Analysis Performed A t Range Time Sodium 139 137 - 09/13/2022 [facility] DEPT PAT H AND 147 8:11 AM LAB MEDICINE MMOL/L CDT Potassium 3.3 (L) 3.5 - 09/13/2022 [facility] DEPT PAT H AND 5.1 8:11 AM LAB MEDICINE MMOL/L CDT Chloride 108 98 - 110 09/13/2022 [facility] DEPT PAT H AND MMOL/L 8:11 AM [...] Nitrogen 31 (H) 7 - 25 09/13/2022 [facility] DEPT PATH AND MG/DL 8:11 AM LAB MEDICINE CDT Creatinine 1.60 (H) 0.4 - 09/13/2022 [facility] DEPT PAT H AND 1.24 8:11 AM LAB MEDICINE MG/DL CDT Calcium 8.8 8.5 - 09/13/2022 [facility] DEPT PAT H AND 10.6 8:11 AM LAB MEDICINE MG/DL CDT eGFR 44 (L) >60 09/13/2022 [facility] DEPT PAT H AND mL/min 8:11 AM LAB MEDICINE CDT Comment: eGFR calculated using the CKD-EPIcr_R equation Anatomical Location / Laterality Collection Method / Volume Juvenal ection Time Received Time Specimen (Source) 09/13/2022 6:43 AM CDT 09/14/19 7:16 AM CDT Ryan Seay DO LABORATORY ORDERABLES City/State/ZIP Code Phone Number Performing [place] [address] [facility] DEPT PATH AND [address] LAB MEDICINE * LACTIC ACID(LACTATE) (09/10/2022 3:10 PM CDT) Pathologist Signature Component Value Ref Test Method Analysis Performed A t Range Time Lactic Acid 0.9 0.5 - 09/10/2022 [facility] DEPT PAT H AND 2.0 4:42 PM LAB MEDICINE MMOL/L CDT Anatomical Location / Laterality Collection Method / Volume Juvenal ection Time Received Time Specimen (Source) BLOOD / Unknown 09/10/2022 3:10 PM CDT 09/11/19 3:58 PM CDT Esme Harkins MD LABORATORY ORDERABLES City/State/ZIP Code Phone Number Performing [place] [address] [facility] DEPT PATH AND [address] LAB MEDICINE * (ABNORMAL) BASIC METABOLIC PANEL (09/10/2022 3:10 PM CDT) Pathologist Signature Component Value Ref Test Method Analysis Performed A t Range Time Sodium 140 137 - 09/10/2022 [facility] DEPT PAT H AND 147 4:42 PM LAB MEDICINE MMOL/L CDT Potassium 3.8 3.5 - 09/10/2022 [facility] DEPT PAT H AND 5.1 4:42 PM LAB MEDICINE MMOL/L CDT Chloride 107 98 - 110 09/10/2022 [facility] DEPT PAT H AND MMOL/L 4:42 PM LAB MEDICINE CDT CO2 25 21 - 30 09/10/2022 [facility] DEPT PAT H AND MMOL/L 4:42 PM LAB MEDICINE CDT Anion Gap 8 3 - 12 09/10/2022 [facility] DEPT PAT H AND 4:42 PM LAB MEDICINE CDT Glucose 132 (H) 70 - 100 09/10/2022 [facility] DEPT PAT H AND MG/DL 4:42 PM LAB MEDICINE CDT Blood Urea Nitrogen 31 (H) 7 - 25 09/10/2022 [facility] DEPT PATH AND MG/DL 4:42 PM LAB MEDICINE CDT Creatinine 1.68 (H) 0.4 - 09/10/2022 [facility] DEPT PAT H AND 1.24 4:42 PM LAB MEDICINE MG/DL CDT Calcium 8.9 8.5 - 09/10/2022 [facility] DEPT PAT H AND 10.6 4:42 PM LAB MEDICINE MG/DL CDT eGFR 42 (L) >60 09/10/2022 [facility] DEPT PAT H AND mL/min 4:42 PM LAB MEDICINE CDT Comment: eGFR calculated using the CKD-EPIcr_R equation Anatomical Location / Laterality Collection Method / Volume Juvenal ection Time Received Time Specimen (Source) BLOOD / Unknown 09/10/2022 3:10 PM CDT 09/11/19 3:58 PM CDT Esme Harkins MD LABORATORY ORDERABLES City/State/ZIP Code Phone Number Performing [place] [address] [facility] DEPT PATH AND [address] [facility] LAB MEDICINE * (ABNORMAL) CBC AND DIFF (09/10/2022 3:10 PM CDT) Pathologist Signature Component Value Ref Test Method Analysis Performed A t Range Time White Blood Cells 9.4 4.5 - 09/10/2022 [facility] DE PT PATH AND 11.0 4:13 PM [...] MEDICINE CDT MCHC 33.6 32.0 - 09/10/2022 [facility] DEPT PAT H AND 36.0 4:13 PM LAB MEDICINE G/DL CDT RDW 14.6 11 - 15 09/10/2022 [facility] DEPT PAT H AND % 4:13 PM LAB MEDICINE CDT Platelet Count 193 150 - 09/10/2022 [facility] DEPT PATH AND 400 K/UL 4:13 PM [...] PM CDT 09/11/19 3:58 PM CDT Esme Harkins MD LABORATORY ORDERABLES City/State/ZIP Code Phone Number Performing [place] [address] [facility] DEPT PATH AND [address] [facility] LAB MEDICINE * CHEST SINGLE VIEW (09/10/2022 3:04 PM CDT) Modality Anatomical Region Laterality Computed Radiography CHEST [...] Holguin MD on 09/10/2022 3:06 PM. Esme Harkins MD DIAGNOSTIC IMAGING ORDERABL ES * ECG [...] Vargas (63) on 09/10/2022 6:09:14 PM Esme Harkins MD ECG ORDERABLES City/State/ZIP Code Phone Number Performing Address Organization [facility] * CBC CELLULAR THERAPEUTICS (09/10/2022 7:20 AM CDT) Pathologist Signature Component Value Ref Test Method Analysis Performed A t Range Time White Blood Cells 9.6 4.5 - 09/10/2022 [facility] DE PT PATH AND 11.0 7:52 AM LAB MEDICINE K/UL CDT RBC 4.62 4.4 - 09/10/2022 [facility] DEPT PAT H AND 5.5 M/UL 7:52 AM LAB MEDICINE CDT Hemoglobin 14.0 13.5 - 09/10/2022 [facility] DEPT PAT H AND 16.5 7:52 AM LAB MEDICINE GM/DL CDT Hematocrit 42.1 40 - 50 09/10/2022 [facility] DEPT PAT H AND % 7:52 AM LAB MEDICINE CDT MCV 91.1 80 - 100 09/10/2022 [facility] DEPT PAT H AND FL 7:52 AM LAB MEDICINE CDT MCH 30.3 26 - 34 09/10/2022 [facility] DEPT PAT H AND PG 7:52 AM LAB MEDICINE CDT MCHC 33.2 32.0 - 09/10/2022 [facility] DEPT PAT H AND 36.0 7:52 AM LAB MEDICINE G/DL CDT RDW 14.2 11 - 15 09/10/2022 [facility] DEPT PAT H AND % 7:52 AM LAB MEDICINE CDT Platelet Count 205 150 - 09/10/2022 [facility] DEPT PATH AND 400 K/UL 7:52 AM LAB MEDICINE CDT MPV 9.6 7 - 11 09/10/2022 [facility] DEPT PAT H AND FL 7:52 AM LAB MEDICINE CDT Anatomical Location / Laterality Collection Method / Volume Juvenal ection Time Received Time Specimen (Source) BLOOD / Unknown 09/10/2022 7:20 AM CDT 09/11/19 23 7:24 AM CDT Esme Harkins MD LABORATORY ORDERABLES [facility]/ZIP Code Phone Number Performing [place] [address] [facility] [address] [facility] LAB MEDICINE * PHOSPHORUS (09/10/2022 7:20 AM CDT) Pathologist Signature Component Value Ref Test Method Analysis Performed A t Range Time Phosphorus 3.2 2.0 - 09/10/2022 [facility] DEPT PAT H AND 4.5 8:20 AM LAB MEDICINE MG/DL CDT Anatomical Location / Laterality Collection Method / Volume Juvenal ection Time Received Time Specimen (Source) BLOOD / Unknown 09/10/2022 7:20 AM CDT 09/11/19 23 7:24 AM CDT Esme Harkins MD LABORATORY ORDERABLES [facility]/ZIP Code Phone Number Performing [place] [address] [facility] AND [address] [facility] LAB MEDICINE * MAGNESIUM (09/10/2022 7:20 AM CDT) Pathologist Signature Component Value Ref Test Method Analysis Performed A t Range Time Magnesium 1.8 1.6 - 09/10/2022 [facility] DEPT PAT H AND 2.6 8:20 AM LAB MEDICINE mg/dL CDT Anatomical Location / Laterality Collection Method / Volume Juvenal ection Time Received Time Specimen (Source) BLOOD / Unknown 09/10/2022 7:20 AM CDT 09/11/19 23 7:24 AM CDT Esme Harkins MD LABORATORY ORDERABLES [facility]/ZIP Code Phone Number Performing [place] [address] [facility] DEPT PATH AND [address] [facility] LAB MEDICINE * (ABNORMAL) COMPREHENSIVE METABOLIC PANEL (09/10/2022 7:20 AM CDT) Pathologist Signature Component Value Ref [...] Total Protein 5.8 (L) 6.0 - 09/10/2022 [facility] DEPT P ATH AND 8.0 G/DL 8:20 AM LAB MEDICINE CDT Total Bilirubin 0.4 0.3 - 09/10/2022 [facility] DEPT PATH AND 1.2 8:20 AM LAB MEDICINE MG/DL CDT Albumin 3.1 (L) 3.5 - 09/10/2022 [facility] DEPT PAT H AND 5.0 G/DL 8:20 AM LAB MEDICINE CDT Alk Phosphatase 84 25 - 110 09/10/2022 [facility] DEPT PATH AND U/L 8:20 AM LAB MEDICINE CDT AST (SGOT) 17 7 - 40 09/10/2022 [facility] DEPT PAT H AND U/L 8:20 AM LAB MEDICINE CDT CO2 24 21 - 30 09/10/2022 [facility] DEPT PAT H AND MMOL/L 8:20 AM LAB MEDICINE CDT ALT (SGPT) 17 7 - 56 09/10/2022 [facility] DEPT PAT H AND U/L 8:20 AM [...] AM CDT 09/11/19 7:24 AM CDT Esme Harkins MD LABORATORY ORDERABLES City/State/ZIP Code Phone Number Performing [place] [address] [facility] DEPT PATH AND [address] [facility]. LAB MEDICINE * CBC CELLULAR THERAPEUTICS (09/07/2022 7:25 AM FURNACE FIRER) Pathologist Signature Component Value Ref Test Method Analysis Performed A t Range Time White Blood Cells 7.5 4.5 - 09/07/2022 [facility] DE PT PATH AND 11.0 8:14 AM LAB MEDICINE K/UL F[employer]CE [employer]ER RBC 4.58 4.4 - 09/07/2022 [facility] DEPT PAT H AND 5.5 M/UL 8:14 AM LAB MEDICINE F[employer]NACE [employer]ER Hemoglobin 14.2 13.5 - 09/07/2022 [facility] DEPT PAT H AND 16.5 8:14 AM LAB MEDICINE GM/DL F[employer]NACE [employer]ER Hematocrit 42.1 40 - 50 09/07/2022 [facility] DEPT PAT H AND % 8:14 AM LAB MEDICINE FURNACE FIRER MCV 91.8 80 - 100 09/07/2022 [facility] DEPT PAT H AND FL 8:14 AM LAB MEDICINE FURNACE FIRER MCH 30.9 26 - 34 09/07/2022 [facility] DEPT PAT H AND PG 8:14 AM LAB MEDICINE FURNACE FIRER MCHC 33.7 32.0 - 09/07/2022 [facility] DEPT PAT H AND 36.0 8:14 AM LAB MEDICINE G/DL F[employer]NACE FIRER RDW 14.4 11 - 15 09/07/2022 [facility] DEPT PAT H AND % 8:14 AM LAB MEDICINE F[employer]NACE FIRER Platelet Count 218 150 - 09/07/2022 [facility] DEPT PATH AND 400 K/UL 8:14 AM LAB MEDICINE FURNACE FIRER MPV 10.1 7 - 11 09/07/2022 [facility] DEPT PAT H AND FL 8:14 AM LAB MEDICINE F[employer]NACE [employer]ER Anatomical Location / Laterality Collection Method / Volume Juvenal ection Time Received Time Specimen (Source) BLOOD / Unknown 09/07/2022 7:25 AM FURNACE FIRER 09/08/19 7:39 AM F[employer]NACE FIRER Esme Harkins MD LABORATORY ORDERABLES City/State/ZIP Code Phone Number Performing [place] [address] [facility] DEPT PATH AND [address] [facility] LAB MEDICINE * PHOSPHORUS (09/07/2022 7:25 AM FURNACE FIRER) Pathologist Signature Component Value Ref Test Method Analysis Performed A t Range Time Phosphorus 3.0 2.0 - 09/07/2022 [facility] DEPT PAT H AND 4.5 8:41 AM LAB MEDICINE MG/DL F[employer]NACE [employer]ER Anatomical Location / Laterality Collection Method / Volume Juvenal ection Time Received Time Specimen (Source) BLOOD / Unknown 09/07/2022 7:25 AM FURNACE FIRER 09/08/19 23 7:39 AM FURNACE FIRER Esme Harkins MD LABORATORY ORDERABLES City/State/ZIP Code Phone Number Performing [place] [address] [facility] DEPT PATH AND [address] [facility] LAB MEDICINE * MAGNESIUM (09/07/2022 7:25 AM FURNACE FIRER) Pathologist Signature Component Value Ref Test Method Analysis Performed A t Range Time Magnesium 2.0 1.6 - 09/07/2022 [facility] DEPT PAT H AND 2.6 8:41 AM LAB MEDICINE mg/dL F[employer]NACE [employer]ER Anatomical Location / Laterality Collection Method / Volume Juvenal ection Time Received Time Specimen (Source) BLOOD / Unknown 09/07/2022 7:25 AM FURNACE FIRER 09/08/19 7:39 AM FURNACE FIRER Esme Harkins MD LABORATORY ORDERABLES [facility]/ZIP Code Phone Number Performing [place] [address] [facility] DEPT PATH AND [address] [facility] LAB MEDICINE * (ABNORMAL) COMPREHENSIVE METABOLIC PANEL (09/07/2022 7:25 AM FURNACE FIRER) Pathologist Signature Component Value Ref Test Method Analysis Performed A t Range Time Sodium 143 137 - 09/07/2022 [facility] DEPT PAT H AND 147 8:41 AM LAB MEDICINE MMOL/L F[employer]NACE [employer]ER Potassium 3.8 3.5 - 09/07/2022 [facility] DEPT PAT H AND 5.1 8:41 AM LAB MEDICINE MMOL/L F[employer]CE [employer]ER Chloride 109 98 - 110 09/07/2022 [facility] DEPT PAT H AND MMOL/L 8:41 AM LAB MEDICINE F[employer]NACE [employer]ER Glucose 136 (H) 70 - 100 09/07/2022 [facility] DEPT PAT H AND MG/DL 8:41 AM LAB MEDICINE F[employer]NACE [employer]ER Blood Urea Nitrogen 38 (H) 7 - 25 09/07/2022 [facility] DEPT PATH AND MG/DL 8:41 AM LAB MEDICINE F[employer]NACE [employer]ER Creatinine 1.63 (H) 0.4 - 09/07/2022 [facility] DEPT PAT H AND 1.24 8:41 AM LAB MEDICINE MG/DL F[employer]NACE [employer]ER Calcium 9.3 8.5 - 09/07/2022 [facility] DEPT PAT H AND 10.6 8:41 AM LAB MEDICINE MG/DL F[employer]NACE [employer]ER Total Protein 6.0 6.0 - 09/07/2022 [facility] DEPT P ATH AND 8.0 G/DL 8:41 AM LAB MEDICINE F[employer]NACE [employer]ER Total Bilirubin 0.4 0.3 - 09/07/2022 [facility] DEPT PATH AND 1.2 8:41 AM LAB MEDICINE MG/DL F[employer]NACE [employer]ER Albumin 3.1 (L) 3.5 - 09/07/2022 [facility] DEPT PAT H AND 5.0 G/DL 8:41 AM LAB MEDICINE F[employer]NACE FIRER Alk Phosphatase 82 25 - 110 09/07/2022 [facility] DEPT PATH AND U/L 8:41 AM LAB MEDICINE FURNACE FIRER AST (SGOT) 17 7 - 40 09/07/2022 [facility] DEPT PAT H AND U/L 8:41 AM LAB MEDICINE F[employer]NACE [employer]ER CO2 23 21 - 30 09/07/2022 [facility] DEPT PAT H AND MMOL/L 8:41 AM LAB MEDICINE FURNACE [employer]ER ALT (SGPT) 17 7 - 56 09/07/2022 [facility] DEPT PAT H AND U/L 8:41 AM LAB MEDICINE F[employer]NACE FIRER Anion Gap 11 3 - 12 09/07/2022 [facility] DEPT PAT H AND 8:41 AM LAB MEDICINE FURNACE FIRER eGFR 43 (L) >60 09/07/2022 [facility] DEPT PAT H AND mL/min 8:41 AM LAB MEDICINE FURNACE FIRER Comment: eGFR calculated using the CKD-EPIcr_R equation Anatomical Location / Laterality Collection Method / Volume Juvenal ection Time Received Time Specimen (Source) BLOOD / Unknown 09/07/2022 7:25 AM FURNACE FIRER 09/08/19 23 7:39 AM F[employer]NACE FIRER Esme Harkins MD LABORATORY ORDERABLES City/State/ZIP Code Phone Number Per[place] [address] [facility] DEPT PATH AND [address] [facility] LAB MEDICINE * PHOSPHORUS (09/05/2022 7:17 AM FURNACE FIRER) Pathologist Signature Component Value Ref Test Method Analysis Performed A t Range Time Phosphorus 2.6 2.0 - 09/05/2022 [facility] DEPT PAT H AND 4.5 9:47 AM LAB MEDICINE MG/DL FURNACE FIRER Anatomical Location / Laterality Collection Method / Volume Juvenal ection Time Received Time Specimen (Source) BLOOD / Unknown 09/05/2022 7:17 AM FURNACE FIRER 09/06/19 7:43 AM FURNACE FIRER Esme Harkins MD LABORATORY ORDERABLES City/State/ZIP Code Phone Number Performing [place] [address] [facility] DEPT PATH AND [address] LAB MEDICINE * MAGNESIUM (09/05/2022 7:17 AM FURNACE FIRER) Pathologist Signature Component Value Ref Test Method Analysis Performed A t Range Time Magnesium 2.0 1.6 - 09/05/2022 [facility] DEPT PAT H AND 2.6 9:47 AM LAB MEDICINE mg/dL F[employer]NACE FIRER Anatomical Location / Laterality Collection Method / Volume Juvenal ection Time Received Time Specimen (Source) BLOOD / Unknown 09/05/2022 7:17 AM FURNACE FIRER 09/06/19 7:43 AM FURNACE FIRER Esme Harkins MD LABORATORY ORDERABLES City/State/ZIP Code Phone Number Performing [place] [address] [facility] DEPT PATH AND [address] LAB MEDICINE * (ABNORMAL) COMPREHENSIVE METABOLIC PANEL (09/05/2022 7:17 AM FURNACE FIRER) Pathologist Signature Component Value Ref Test Method Analysis Performed A t Range Time Sodium 143 137 - 09/05/2022 [facility] DEPT PAT H AND 147 9:47 AM LAB MEDICINE MMOL/L FURNACE FIRER Potassium 3.8 3.5 - 09/05/2022 [facility] DEPT PAT H AND 5.1 9:47 AM LAB MEDICINE MMOL/L F[employer]NACE [employer]ER Chloride 109 98 - 110 09/05/2022 [facility] DEPT PAT H AND MMOL/L 9:47 AM LAB MEDICINE FURNACE FIRER Glucose 136 (H) 70 - 100 09/05/2022 [facility] DEPT PAT H AND MG/DL 9:47 AM LAB MEDICINE FURNACE FIRER Blood Urea Nitrogen 37 (H) 7 - 25 09/05/2022 [facility] DEPT PATH AND MG/DL 9:47 AM LAB MEDICINE FURNACE FIRER Creatinine 1.70 (H) 0.4 - 09/05/2022 [facility] DEPT PAT H AND 1.24 9:47 AM LAB MEDICINE MG/DL FURNACE FIRER Calcium 9.3 8.5 - 09/05/2022 [facility] DEPT PAT H AND 10.6 9:47 AM LAB MEDICINE MG/DL FURNACE FIRER Total Protein 6.0 6.0 - 09/05/2022 [facility] DEPT P ATH AND 8.0 G/DL 9:47 AM LAB MEDICINE FURNACE FIRER Total Bilirubin 0.4 0.3 - 09/05/2022 [facility] DEPT PATH AND 1.2 9:47 AM LAB MEDICINE MG/DL FURNACE FIRER Albumin 3.2 (L) 3.5 - 09/05/2022 [facility] DEPT PAT H AND 5.0 G/DL 9:47 AM LAB MEDICINE FURNACE FIRER Alk Phosphatase 86 25 - 110 09/05/2022 [facility] DEPT PATH AND U/L 9:47 AM LAB MEDICINE FURNACE FIRER AST (SGOT) 18 7 - 40 09/05/2022 [facility] DEPT PAT H AND U/L 9:47 AM LAB MEDICINE FURNACE FIRER CO2 24 21 - 30 09/05/2022 [facility] DEPT PAT H AND MMOL/L 9:47 AM LAB MEDICINE FURNACE FIRER ALT (SGPT) 17 7 - 56 09/05/2022 [facility] DEPT PAT H AND U/L 9:47 AM LAB MEDICINE FURNACE FIRER Anion Gap 10 3 - 12 09/05/2022 [facility] DEPT PAT H AND 9:47 AM LAB MEDICINE FURNACE FIRER eGFR 41 (L) >60 09/05/2022 [facility] DEPT PAT H AND mL/min 9:47 AM LAB MEDICINE F[employer]NACE FIRER Comment: eGFR calculated using the CKD-EPIcr_R equation Anatomical Location / Laterality Collection Method / Volume Ujvenal ection Time Received Time Specimen (Source) BLOOD / Unknown 09/05/2022 7:17 AM FURNACE FIRER 09/06/19 7:43 AM FURNACE FIRER Esme Harkins MD LABORATORY ORDERABLES City/State/ZIP Code Phone Number Performing [place] [address] [facility] DEPT PATH AND [address] [facility] LAB MEDICINE * CBC CELLULAR THERAPEUTICS (09/05/2022 7:17 AM FURNACE FIRER) Pathologist Signature Component Value Ref Test Method Analysis Performed A t Range Time White Blood Cells 8.1 4.5 - 09/05/2022 [facility] DE PT PATH AND 11.0 8:29 AM LAB MEDICINE K/UL FURNACE FIRER RBC 4.77 4.4 - 09/05/2022 [facility] DEPT PAT H AND 5.5 M/UL 8:29 AM LAB MEDICINE FURNACE FIRER Hemoglobin 14.3 13.5 - 09/05/2022 [facility] DEPT PAT H AND 16.5 8:29 AM LAB MEDICINE GM/DL FURNACE FIRER Hematocrit 43.4 40 - 50 09/05/2022 [facility] DEPT PAT H AND % 8:29 AM LAB MEDICINE FURNACE FIRER MCV 91.1 80 - 100 09/05/2022 [facility] DEPT PAT H AND [place] 8:29 AM LAB MEDICINE FURNACE FIRER MCH 30.0 26 - 34 09/05/2022 [facility] DEPT PAT H AND PG 8:29 AM LAB MEDICINE FURNACE FIRER MCHC 32.9 32.0 - 09/05/2022 [facility] DEPT PAT H AND 36.0 8:29 AM LAB MEDICINE G/DL FURNACE FIRER RDW 14.5 11 - 15 09/05/2022 [facility] DEPT PAT H AND % 8:29 AM LAB MEDICINE FURNACE FIRER Platelet Count 216 150 - 09/05/2022 [facility] DEPT PATH AND 400 K/UL 8:29 AM LAB MEDICINE FURNACE FIRER MPV 9.9 7 - 11 09/05/2022 [facility] DEPT PAT H AND [place] 8:29 AM LAB MEDICINE FURNACE FIRER Anatomical Location / Laterality Collection Method / Volume Juvenal ection Time Received Time Specimen (Source) BLOOD / Unknown 09/05/2022 7:17 AM FURNACE FIRER 09/06/19 23 7:43 AM FURNACE FIRER Esme Harkins MD LABORATORY ORDERABLES City/State/ZIP Code Phone Number Performing [place] [address] [facility] DEPT PATH AND [address] [facility] LAB MEDICINE * (ABNORMAL) PHOSPHORUS (09/03/2022 7:56 AM FURNACE FIRER) Pathologist Signature Component Value Ref Test Method Analysis Performed A t Range Time Phosphorus 1.8 (L) 2.0 - 09/03/2022 [facility] DEPT PAT H AND 4.5 9:29 AM LAB MEDICINE MG/DL FURNACE FIRER Anatomical Location / Laterality Collection Method / Volume Juvenal ection Time Received Time Specimen (Source) BLOOD / Unknown 09/03/2022 7:56 AM FURNACE FIRER 09/04/19 23 8:00 AM FURNACE FIRER Esme Harkins MD LABORATORY ORDERABLES [facility]/State/ZIP Code Phone Number Performing [place] [address] [facility] DEPT PATH AND [address] LAB MEDICINE * MAGNESIUM (09/03/2022 7:56 AM FURNACE FIRER) Pathologist Signature Component Value Ref Test Method Analysis Performed A t Range Time Magnesium 1.9 1.6 - 09/03/2022 [facility] DEPT PAT H AND 2.6 9:29 AM LAB MEDICINE mg/dL FURNACE FIRER Anatomical Location / Laterality Collection Method / Volume Juvenal ection Time Received Time Specimen (Source) BLOOD / Unknown 09/03/2022 7:56 AM FURNACE FIRER 09/04/19 8:00 AM FURNACE FIRER Esme Harkins MD LABORATORY ORDERABLES [facility]/State/ZIP Code Phone Number Performing [place] [address] [facility] DEPT PATH AND [address] LAB MEDICINE * (ABNORMAL) COMPREHENSIVE METABOLIC PANEL (09/03/2022 7:56 AM FURNACE FIRER) Pathologist Signature Component Value Ref Test Method Analysis Performed A t Range Time Sodium 141 137 - 09/03/2022 [facility] DEPT PAT H AND 147 9:29 AM LAB MEDICINE MMOL/L FURNACE FIRER Potassium 3.9 3.5 - 09/03/2022 [facility] DEPT PAT H AND 5.1 9:29 AM LAB MEDICINE MMOL/L FURNACE FIRER Chloride 110 98 - 110 09/03/2022 [facility] DEPT PAT H AND MMOL/L 9:29 AM LAB MEDICINE FURNACE FIRER Glucose 141 (H) 70 - 100 09/03/2022 [facility] DEPT PAT H AND MG/DL 9:29 AM LAB MEDICINE FURNACE FIRER Blood Urea Nitrogen 35 (H) 7 - 25 09/03/2022 [facility] DEPT PATH AND MG/DL 9:29 AM LAB MEDICINE FURNACE FIRER Creatinine 1.75 (H) 0.4 - 09/03/2022 [facility] DEPT PAT H AND 1.24 9:29 AM LAB MEDICINE MG/DL FURNACE FIRER Calcium 8.9 8.5 - 09/03/2022 [facility] DEPT PAT H AND 10.6 9:29 AM LAB MEDICINE MG/DL FURNACE FIRER Total Protein 6.0 6.0 - 09/03/2022 [facility] DEPT P ATH AND 8.0 G/DL 9:29 AM LAB MEDICINE FURNACE FIRER Total Bilirubin 0.4 0.3 - 09/03/2022 [facility] DEPT PATH AND 1.2 9:29 AM LAB MEDICINE MG/DL FURNACE FIRER Albumin 3.2 (L) 3.5 - 09/03/2022 [facility] DEPT PAT H AND 5.0 G/DL 9:29 AM LAB MEDICINE FURNACE FIRER Alk Phosphatase 83 25 - 110 09/03/2022 [facility] DEPT PATH AND U/L 9:29 AM LAB MEDICINE FURNACE FIRER AST (SGOT) 18 7 - 40 09/03/2022 [facility] DEPT PAT H AND U/L 9:29 AM LAB MEDICINE FURNACE FIRER CO2 23 21 - 30 09/03/2022 [facility] DEPT PAT H AND MMOL/L 9:29 AM LAB MEDICINE FURNACE FIRER ALT (SGPT) 19 7 - 56 09/03/2022 [facility] DEPT PAT H AND U/L 9:29 AM LAB MEDICINE FURNACE FIRER Anion Gap 8 3 - 12 09/03/2022 [facility] DEPT PAT H AND 9:29 AM LAB MEDICINE FURNACE FIRER eGFR 40 (L) >60 09/03/2022 [facility] DEPT PAT H AND mL/min 9:29 AM LAB MEDICINE FURNACE FIRER Comment: eGFR calculated using the CKD-EPIcr_R equation Anatomical Location / Laterality Collection Method / Volume Juvenal ection Time Received Time Specimen (Source) BLOOD / Unknown 09/03/2022 7:56 AM FURNACE FIRER 09/04/19 8:00 AM FURNACE FIRER Esme Harkins MD LABORATORY ORDERABLES City/State/ZIP Code Phone Number Performing [place] [address] [facility] DEPT PATH AND [address] [facility] LAB MEDICINE * CBC CELLULAR THERAPEUTICS (09/03/2022 7:56 AM FURNACE FIRER) Pathologist Signature Component Value Ref Test Method Analysis Performed A t Range Time White Blood Cells 10.7 4.5 - 09/03/2022 [facility] DE PT PATH AND 11.0 10:02 AM LAB MEDICINE K/UL FURNACE FIRER RBC 4.52 4.4 - 09/03/2022 [facility] DEPT PAT H AND 5.5 M/UL 10:02 AM LAB MEDICINE FURNACE FIRER Hemoglobin 13.7 13.5 - 09/03/2022 [facility] DEPT PAT H AND 16.5 10:02 AM LAB MEDICINE GM/DL FURNACE FIRER Hematocrit 40.7 40 - 50 09/03/2022 [facility] DEPT PAT H AND % 10:02 AM LAB MEDICINE FURNACE FIRER MCV 90.1 80 - 100 09/03/2022 [facility] DEPT PAT H AND FL 10:02 AM LAB MEDICINE FURNACE FIRER MCH 30.3 26 - 34 09/03/2022 [facility] DEPT PAT H AND PG 10:02 AM LAB MEDICINE FURNACE FIRER MCHC 33.6 32.0 - 09/03/2022 [facility] DEPT PAT H AND 36.0 10:02 AM LAB MEDICINE G/DL FURNACE FIRER RDW 14.3 11 - 15 09/03/2022 [facility] DEPT PAT H AND % 10:02 AM LAB MEDICINE FURNACE FIRER Platelet Count 228 150 - 09/03/2022 [facility] DEPT PATH AND 400 K/UL 10:02 AM LAB MEDICINE FURNACE FIRER MPV 10.2 7 - 11 09/03/2022 [facility] DEPT PAT H AND FL 10:02 AM LAB MEDICINE FURNACE FIRER Anatomical Location / Laterality Collection Method / Volume Juvenal ection Time Received Time Specimen (Source) BLOOD / Unknown 09/03/2022 7:56 AM FURNACE FIRER 09/04/19 8:00 AM FURNACE FIRER Esme Harkins MD LABORATORY ORDERABLES City/State/ZIP Code Phone Number Performing [place] [address] [facility] DEPT PATH AND [address] [facility] LAB MEDICINE * (ABNORMAL) BASIC METABOLIC PANEL CELLULAR THERAPEUTICS (08/31/2022 7:43 AM FURNACE FIRER) Pathologist Signature Component Value Ref Test Method Analysis Performed A t Range Time Sodium 140 137 - 08/31/2022 [facility] DEPT PAT H AND 147 9:10 AM LAB MEDICINE MMOL/L FURNACE FIRER Potassium 3.7 3.5 - 08/31/2022 [facility] DEPT PAT H AND 5.1 9:10 AM LAB MEDICINE MMOL/L FURNACE FIRER Chloride 106 98 - 110 08/31/2022 [facility] DEPT PAT H AND MMOL/L 9:10 AM LAB MEDICINE FURNACE FIRER CO2 25 21 - 30 08/31/2022 [facility] DEPT PAT H AND MMOL/L 9:10 AM LAB MEDICINE FURNACE FIRER Anion Gap 9 3 - 12 08/31/2022 [facility] DEPT PAT H AND 9:10 AM LAB MEDICINE FURNACE FIRER Glucose 189 (H) 70 - 100 08/31/2022 [facility] DEPT PAT H AND MG/DL 9:10 AM LAB MEDICINE FURNACE FIRER Blood Urea Nitrogen 40 (H) 7 - 25 08/31/2022 [facility] DEPT PATH AND MG/DL 9:10 AM LAB MEDICINE FURNACE FIRER Creatinine 1.77 (H) 0.4 - 08/31/2022 [facility] DEPT PAT H AND 1.24 9:10 AM LAB MEDICINE MG/DL FURNACE FIRER Calcium 8.9 8.5 - 08/31/2022 [facility] DEPT PAT H AND 10.6 9:10 AM LAB MEDICINE MG/DL FURNACE FIRER eGFR 39 (L) >60 08/31/2022 [facility] DEPT PAT H AND mL/min 9:10 AM LAB MEDICINE FURNACE FIRER Comment: eGFR calculated using the CKD-EPIcr_R equation Anatomical Location / Laterality Collection Method / Volume Juvenal ection Time Received Time Specimen (Source) BLOOD / Unknown 08/31/2022 7:43 AM FURNACE FIRER 09/01/19 8:11 AM FURNACE FIRER Esme Harkins MD LABORATORY ORDERABLES City/State/ZIP Code Phone Number Performing [place] [address] [facility] DEPT PATH AND [address] [facility] LAB MEDICINE * CBC CELLULAR THERAPEUTICS (08/31/2022 7:43 AM FURNACE FIRER) Pathologist Signature Component Value Ref Test Method Analysis Performed A t Range Time White Blood Cells 8.0 4.5 - 08/31/2022 [facility] DE PT PATH AND 11.0 8:49 AM LAB MEDICINE K/UL FURNACE FIRER RBC 4.51 4.4 - 08/31/2022 [facility] DEPT PAT H AND 5.5 M/UL 8:49 AM LAB MEDICINE FURNACE FIRER Hemoglobin 13.8 13.5 - 08/31/2022 [facility] DEPT PAT H AND 16.5 8:49 AM LAB MEDICINE GM/DL FURNACE FIRER Hematocrit 41.2 40 - 50 08/31/2022 [facility] DEPT PAT H AND % 8:49 AM LAB MEDICINE FURNACE FIRER MCV 91.3 80 - 100 08/31/2022 [facility] DEPT PAT H AND FL 8:49 AM LAB MEDICINE FURNACE FIRER MCH 30.6 26 - 34 08/31/2022 [facility] DEPT PAT H AND PG 8:49 AM LAB MEDICINE FURNACE FIRER MCHC 33.5 32.0 - 08/31/2022 [facility] DEPT PAT H AND 36.0 8:49 AM LAB MEDICINE G/DL FURNACE FIRER RDW 14.3 11 - 15 08/31/2022 [facility] DEPT PAT H AND % 8:49 AM LAB MEDICINE FURNACE FIRER Platelet Count 287 150 - 08/31/2022 [facility] DEPT PATH AND 400 K/UL 8:49 AM LAB MEDICINE FURNACE FIRER MPV 10.3 7 - 11 08/31/2022 [facility] DEPT PAT H AND FL 8:49 AM LAB MEDICINE FURNACE FIRER Anatomical Location / Laterality Collection Method / Volume Juvenal ection Time Received Time Specimen (Source) BLOOD / Unknown 08/31/2022 7:43 AM FURNACE FIRER 09/01/19 8:11 AM FURNACE FIRER Esme Harkins MD LABORATORY ORDERABLES City/State/ZIP Code Phone Number Performing [place] [address] [facility] DEPT PATH AND [address] [facility] LAB MEDICINE * (ABNORMAL) BASIC METABOLIC PANEL CELLULAR THERAPEUTICS (08/29/2022 10:55 AM FURNACE FIRER) Pathologist Signature Component Value Ref Test Method Analysis Performed A t Range Time Sodium 139 137 - 08/29/2022 [facility] DEPT PAT H AND 147 12:19 PM LAB MEDICINE MMOL/L FURNACE FIRER Potassium 4.5 3.5 - 08/29/2022 [facility] DEPT PAT H AND 5.1 12:19 PM LAB MEDICINE MMOL/L FURNACE FIRER Chloride 104 98 - 110 08/29/2022 [facility] DEPT PAT H AND MMOL/L 12:19 PM LAB MEDICINE FURNACE FIRER CO2 26 21 - 30 08/29/2022 [facility] DEPT PAT H AND MMOL/L 12:19 PM LAB MEDICINE FURNACE FIRER Anion Gap 9 3 - 12 08/29/2022 [facility] DEPT PAT H AND 12:19 PM LAB MEDICINE FURNACE FIRER Glucose 128 (H) 70 - 100 08/29/2022 [facility] DEPT PAT H AND MG/DL 12:19 PM LAB MEDICINE FURNACE FIRER Blood Urea Nitrogen 48 (H) 7 - 25 08/29/2022 [facility] DEPT PATH AND MG/DL 12:19 PM LAB MEDICINE FURNACE FIRER Creatinine 1.73 (H) 0.4 - 08/29/2022 [facility] DEPT PAT H AND 1.24 12:19 PM LAB MEDICINE MG/DL FURNACE FIRER Calcium 9.3 8.5 - 08/29/2022 [facility] DEPT PAT H AND 10.6 12:19 PM LAB MEDICINE MG/DL FURNACE FIRER eGFR 40 (L) >60 08/29/2022 [facility] DEPT PAT H AND mL/min 12:19 PM LAB MEDICINE FURNACE FIRER Comment: eGFR calculated using the CKD-EPIcr_R equation Anatomical Location / Laterality Collection Method / Volume Juvenal ection Time Received Time Specimen (Source) BLOOD / Unknown 08/29/2022 10:55 AM FURNACE FIRER 08/30/19 11:07 AM FURNACE FIRER Esme Harkins MD LABORATORY ORDERABLES City/State/ZIP Code Phone Number Performing [place] [address] [facility] DEPT PATH AND [address] [facility] LAB MEDICINE * CBC CELLULAR THERAPEUTICS (08/29/2022 10:55 AM FURNACE FIRER) Pathologist Signature Component Value Ref Test Method Analysis Performed A t Range Time White Blood Cells 9.3 4.5 - 08/29/2022 [facility] DE PT PATH AND 11.0 11:56 AM LAB MEDICINE K/UL FURNACE FIRER RBC 4.86 4.4 - 08/29/2022 [facility] DEPT PAT H AND 5.5 M/UL 11:56 AM LAB MEDICINE FURNACE FIRER Hemoglobin 14.6 13.5 - 08/29/2022 [facility] DEPT PAT H AND 16.5 11:56 AM LAB MEDICINE GM/DL FURNACE FIRER Hematocrit 44.3 40 - 50 08/29/2022 [facility] DEPT PAT H AND % 11:56 AM LAB MEDICINE FURNACE FIRER MCV 91.3 80 - 100 08/29/2022 [facility] DEPT PAT H AND FL 11:56 AM LAB MEDICINE FURNACE FIRER MCH 30.0 26 - 34 08/29/2022 [facility] DEPT PAT H AND PG 11:56 AM LAB MEDICINE FURNACE FIRER MCHC 32.9 32.0 - 08/29/2022 [facility] DEPT PAT H AND 36.0 11:56 AM LAB MEDICINE G/DL FURNACE FIRER RDW 14.0 11 - 15 08/29/2022 [facility] DEPT PAT H AND % 11:56 AM LAB MEDICINE FURNACE FIRER Platelet Count 294 150 - 08/29/2022 [facility] DEPT PATH AND 400 K/UL 11:56 AM LAB MEDICINE FURNACE FIRER MPV 10.0 7 - 11 08/29/2022 [facility] DEPT PAT H AND FL 11:56 AM LAB MEDICINE FURNACE FIRER Anatomical Location / Laterality Collection Method / Volume Juvenal ection Time Received Time Specimen (Source) BLOOD / Unknown 08/29/2022 10:55 AM FURNACE FIRER 08/30/19 11:07 AM FURNACE FIRER Esme Harkins MD LABORATORY ORDERABLES City/State/ZIP Code Phone Number Per[place] [address] [facility] DEPT PATH AND [address] [facility] LAB MEDICINE * (ABNORMAL) BASIC METABOLIC PANEL CELLULAR THERAPEUTICS (08/28/2022 9:49 AM FURNACE FIRER) Pathologist Signature Component Value Ref Test Method Analysis Performed A t Range Time Sodium 140 137 - 08/28/2022 [facility] DEPT PAT H AND 147 10:58 AM LAB MEDICINE MMOL/L FURNACE FIRER Potassium 4.3 3.5 - 08/28/2022 [facility] DEPT PAT H AND 5.1 10:58 AM LAB MEDICINE MMOL/L FURNACE FIRER Chloride 104 98 - 110 08/28/2022 [facility] DEPT PAT H AND MMOL/L 10:58 AM LAB MEDICINE FURNACE FIRER CO2 26 21 - 30 08/28/2022 [facility] DEPT PAT H AND MMOL/L 10:58 AM LAB MEDICINE FURNACE FIRER Anion Gap 10 3 - 12 08/28/2022 [facility] DEPT PAT H AND 10:58 AM LAB MEDICINE FURNACE FIRER Glucose 138 (H) 70 - 100 08/28/2022 [facility] DEPT PAT H AND MG/DL 10:58 AM LAB MEDICINE FURNACE FIRER Blood Urea Nitrogen 47 (H) 7 - 25 08/28/2022 [facility] DEPT PATH AND MG/DL 10:58 AM LAB MEDICINE FURNACE FIRER Creatinine 1.90 (H) 0.4 - 08/28/2022 [facility] DEPT PAT H AND 1.24 10:58 AM LAB MEDICINE MG/DL FURNACE FIRER Calcium 9.2 8.5 - 08/28/2022 [facility] DEPT PAT H AND 10.6 10:58 AM LAB MEDICINE MG/DL FURNACE FIRER eGFR 36 (L) >60 08/28/2022 [facility] DEPT PAT H AND mL/min 10:58 AM LAB MEDICINE FURNACE FIRER Comment: eGFR calculated using the CKD-EPIcr_R equation Anatomical Location / Laterality Collection Method / Volume Juvenal ection Time Received Time Specimen (Source) BLOOD / Unknown 08/28/2022 9:49 AM FURNACE FIRER 08/28/19 10:16 AM FURNACE FIRER Esme Harkins MD LABORATORY ORDERABLES City/State/ZIP Code Phone Number Performing [place] [address] [facility] DEPT PATH AND [address] LAB MEDICINE * CBC CELLULAR THERAPEUTICS (08/28/2022 9:49 AM FURNACE FIRER) Pathologist Signature Component Value Ref Test Method Analysis Performed A t Range Time White Blood Cells 9.0 4.5 - 08/28/2022 [facility] DE PT PATH AND 11.0 11:25 AM LAB MEDICINE K/UL FURNACE FIRER RBC 4.99 4.4 - 08/28/2022 [facility] DEPT PAT H AND 5.5 M/UL 11:25 AM LAB MEDICINE FURNACE FIRER Hemoglobin 15.0 13.5 - 08/28/2022 [facility] DEPT PAT H AND 16.5 11:25 AM LAB MEDICINE GM/DL FURNACE FIRER Hematocrit 45.2 40 - 50 08/28/2022 [facility] DEPT PAT H AND % 11:25 AM LAB MEDICINE FURNACE FIRER MCV 90.6 80 - 100 08/28/2022 [facility] DEPT PAT H AND FL 11:25 AM LAB MEDICINE FURNACE FIRER MCH 30.0 26 - 34 08/28/2022 [facility] DEPT PAT H AND PG 11:25 AM LAB MEDICINE FURNACE FIRER MCHC 33.1 32.0 - 08/28/2022 [facility] DEPT PAT H AND 36.0 11:25 AM LAB MEDICINE G/DL FURNACE FIRER RDW 14.2 11 - 15 08/28/2022 [facility] DEPT PAT H AND % 11:25 AM LAB MEDICINE FURNACE FIRER Platelet Count 293 150 - 08/28/2022 [facility] DEPT PATH AND 400 K/UL 11:25 AM LAB MEDICINE FURNACE FIRER MPV 9.7 7 - 11 08/28/2022 [facility] DEPT PAT H AND FL 11:25 AM LAB MEDICINE FURNACE FIRER Anatomical Location / Laterality Collection Method / Volume Juvenal ection Time Received Time Specimen (Source) BLOOD / Unknown 08/28/2022 9:49 AM FURNACE FIRER 08/28/19 10:16 AM FURNACE FIRER Esme Harkins MD LABORATORY ORDERABLES City/State/ZIP Code Phone Number Performing [place] [address] [facility] DEPT PATH AND [address] LAB MEDICINE * (ABNORMAL) BASIC METABOLIC PANEL CELLULAR THERAPEUTICS (08/27/2022 10:42 AM FURNACE FIRER) Pathologist Signature Component Value Ref Test Method Analysis Performed A t Range Time Sodium 139 137 - 08/27/2022 [facility] DEPT PAT H AND 147 12:09 PM LAB MEDICINE MMOL/L FURNACE FIRER Potassium 4.5 3.5 - 08/27/2022 [facility] DEPT PAT H AND 5.1 12:09 PM LAB MEDICINE MMOL/L FURNACE FIRER Chloride 104 98 - 110 08/27/2022 [facility] DEPT PAT H AND MMOL/L 12:09 PM LAB MEDICINE FURNACE FIRER CO2 25 21 - 30 08/27/2022 [facility] DEPT PAT H AND MMOL/L 12:09 PM LAB MEDICINE FURNACE FIRER Anion Gap 10 3 - 12 08/27/2022 [facility] DEPT PAT H AND 12:09 PM LAB MEDICINE FURNACE FIRER Glucose 122 (H) 70 - 100 08/27/2022 [facility] DEPT PAT H AND MG/DL 12:09 PM LAB MEDICINE FURNACE FIRER Blood Urea Nitrogen 45 (H) 7 - 25 08/27/2022 [facility] DEPT PATH AND MG/DL 12:09 PM LAB MEDICINE FURNACE FIRER Creatinine 1.88 (H) 0.4 - 08/27/2022 [facility] DEPT PAT H AND 1.24 12:09 PM LAB MEDICINE MG/DL FURNACE FIRER Calcium 9.4 8.5 - 08/27/2022 [facility] DEPT PAT H AND 10.6 12:09 PM LAB MEDICINE MG/DL FURNACE FIRER eGFR 37 (L) >60 08/27/2022 [facility] DEPT PAT H AND mL/min 12:09 PM LAB MEDICINE FURNACE FIRER Comment: eGFR calculated using the CKD-EPIcr_R equation Anatomical Location / Laterality Collection Method / Volume Juvenal ection Time Received Time Specimen (Source) BLOOD / Unknown 08/27/2022 10:42 AM FURNACE FIRER 08/27/19 11:18 AM FURNACE FIRER Esme Harkins MD LABORATORY ORDERABLES City/State/ZIP Code Phone Number Performing [place] [address] [facility] DEPT PATH AND [address] [facility] LAB MEDICINE * CBC CELLULAR THERAPEUTICS (08/27/2022 10:42 AM FURNACE FIRER) Pathologist Signature Component Value Ref Test Method Analysis Performed A t Range Time White Blood Cells 10.7 4.5 - 08/27/2022 [facility] DE PT PATH AND 11.0 11:39 AM LAB MEDICINE K/UL FURNACE FIRER RBC 4.83 4.4 - 08/27/2022 [facility] DEPT PAT H AND 5.5 M/UL 11:39 AM LAB MEDICINE FURNACE FIRER Hemoglobin 14.4 13.5 - 08/27/2022 [facility] DEPT PAT H AND 16.5 11:39 AM LAB MEDICINE GM/DL FURNACE FIRER Hematocrit 43.9 40 - 50 08/27/2022 [facility] DEPT PAT H AND % 11:39 AM LAB MEDICINE FURNACE FIRER MCV 90.8 80 - 100 08/27/2022 [facility] DEPT PAT H AND FL 11:39 AM LAB MEDICINE FURNACE FIRER MCH 29.9 26 - 34 08/27/2022 [facility] DEPT PAT H AND PG 11:39 AM LAB MEDICINE FURNACE FIRER MCHC 32.9 32.0 - 08/27/2022 [facility] DEPT PAT H AND 36.0 11:39 AM LAB MEDICINE G/DL FURNACE FIRER RDW 14.4 11 - 15 08/27/2022 [facility] DEPT PAT H AND % 11:39 AM LAB MEDICINE FURNACE FIRER Platelet Count 321 150 - 08/27/2022 [facility] DEPT PATH AND 400 K/UL 11:39 AM LAB MEDICINE FURNACE FIRER MPV 9.8 7 - 11 08/27/2022 [facility] DEPT PAT H AND FL 11:39 AM LAB MEDICINE FURNACE FIRER Anatomical Location / Laterality Collection Method / Volume Juvenal ection Time Received Time Specimen (Source) BLOOD / Unknown 08/27/2022 10:42 AM FURNACE FIRER 08/27/19 11:18 AM FURNACE FIRER Esme Harkins MD LABORATORY ORDERABLES City/State/ZIP Code Phone Number Performing [place] [address] [facility] DEPT PATH AND [address] [facility] LAB MEDICINE * (ABNORMAL) BASIC METABOLIC PANEL CELLULAR THERAPEUTICS (08/25/2022 12:56 PM FURNACE FIRER) Pathologist Signature Component Value Ref Test Method Analysis Performed A t Range Time Sodium 138 137 - 08/25/2022 [facility] DEPT PAT H AND 147 2:28 PM LAB MEDICINE MMOL/L FURNACE FIRER Potassium 4.1 3.5 - 08/25/2022 [facility] DEPT PAT H AND 5.1 2:28 PM LAB MEDICINE MMOL/L FURNACE FIRER Chloride 103 98 - 110 08/25/2022 [facility] DEPT PAT H AND MMOL/L 2:28 PM LAB MEDICINE FURNACE FIRER CO2 25 21 - 30 08/25/2022 [facility] DEPT PAT H AND MMOL/L 2:28 PM LAB MEDICINE FURNACE FIRER Anion Gap 10 3 - 12 08/25/2022 [facility] DEPT PAT H AND 2:28 PM LAB MEDICINE FURNACE FIRER Glucose 112 (H) 70 - 100 08/25/2022 [facility] DEPT PAT H AND MG/DL 2:28 PM LAB MEDICINE FURNACE FIRER Blood Urea Nitrogen 39 (H) 7 - 25 08/25/2022 [facility] DEPT PATH AND MG/DL 2:28 PM LAB MEDICINE FURNACE FIRER Creatinine 1.65 (H) 0.4 - 08/25/2022 [facility] DEPT PAT H AND 1.24 2:28 PM LAB MEDICINE MG/DL FURNACE FIRER Calcium 9.4 8.5 - 08/25/2022 [facility] DEPT PAT H AND 10.6 2:28 PM LAB MEDICINE MG/DL FURNACE FIRER eGFR 43 (L) >60 08/25/2022 [facility] DEPT PAT H AND mL/min 2:28 PM LAB MEDICINE FURNACE FIRER Comment: eGFR calculated using the CKD-EPIcr_R equation Anatomical Location / Laterality Collection Method / Volume Juvenal ection Time Received Time Specimen (Source) BLOOD / Unknown 08/25/2022 12:56 PM FURNACE FIRER 08/25/19 1:00 PM FURNACE FIRER Esme Harkins MD LABORATORY ORDERABLES City/State/ZIP Code Phone Number Performing [place] [address] [facility] DEPT PATH AND [address] [facility] LAB MEDICINE * CBC CELLULAR THERAPEUTICS (08/25/2022 12:56 PM FURNACE FIRER) Pathologist Signature Component Value Ref Test Method Analysis Performed A t Range Time White Blood Cells 9.8 4.5 - 08/25/2022 [facility] DE PT PATH AND 11.0 1:55 PM LAB MEDICINE K/UL FURNACE FIRER RBC 4.86 4.4 - 08/25/2022 [facility] DEPT PAT H AND 5.5 M/UL 1:55 PM LAB MEDICINE FURNACE FIRER Hemoglobin 14.7 13.5 - 08/25/2022 [facility] DEPT PAT H AND 16.5 1:55 PM LAB MEDICINE GM/DL FURNACE FIRER Hematocrit 44.5 40 - 50 08/25/2022 [facility] DEPT PAT H AND % 1:55 PM LAB MEDICINE FURNACE FIRER MCV 91.5 80 - 100 08/25/2022 [facility] DEPT PAT H AND FL 1:55 PM LAB MEDICINE FURNACE FIRER MCH 30.3 26 - 34 08/25/2022 [facility] DEPT PAT H AND PG 1:55 PM LAB MEDICINE FURNACE FIRER MCHC 33.1 32.0 - 08/25/2022 [facility] DEPT PAT H AND 36.0 1:55 PM LAB MEDICINE G/DL FURNACE FIRER RDW 13.9 11 - 15 08/25/2022 [facility] DEPT PAT H AND % 1:55 PM LAB MEDICINE FURNACE FIRER Platelet Count 284 150 - 08/25/2022 [facility] DEPT PATH AND 400 K/UL 1:55 PM LAB MEDICINE FURNACE FIRER MPV 9.6 7 - 11 08/25/2022 [facility] DEPT PAT H AND FL 1:55 PM LAB MEDICINE FURNACE FIRER Anatomical Location / Laterality Collection Method / Volume Jvuenal ection Time Received Time Specimen (Source) BLOOD / Unknown 08/25/2022 12:56 PM FURNACE FIRER 08/25/19 23 1:00 PM FURNACE FIRER Esme Harkins MD LABORATORY ORDERABLES City/State/ZIP Code Phone Number Performing [place] [address] [facility] DEPT PATH AND [address] [facility] LAB MEDICINE documented in this encounter Visit Diagnoses Diagnosis Acute ischemic left MCA stroke (HCC) - Primary Unspecified cerebral artery occlusion w ith cerebral infarction Acute ischemic left MCA stroke (HCC) Unspecified cerebral artery occlusion w ith cerebral infarction Global aphasia Aphasia Mixed hyperlipidemia Hypothyroidism, unspecified type Seizure disorder (HCC) Unspecified epilepsy without mention of intractable epilepsy Stage 3b chronic kidney disease (HCC) Hypotension, unspecified hypotension ty pe Ischemic stroke (HCC) Aphasia Acute right hemiparesis (HCC) Hemiplegia, unspecified, affecting unsp ecified side CAD (coronary artery disease) Coronary atherosclerosis of unspecified type of vessel, [place] or graft Global aphasia Aphasia History of multiple strokes Hyperlipidemia Other and unspecified hyperlipidemia Hypothyroidism Unspecified hypothyroidism Primary hypertension Unspecified essential hypertension Seizure disorder (HCC) Unspecified epilepsy without mention of intractable epilepsy Stage 3b chronic kidney disease (HCC) Impaired mobility and activities of kaylen ly living Mechanical problems with limbs Risk for falls Personal history of fall * Rehab Team PT Barriers and Concerns - Valery Weber, PT - 08/27/2022 4:03 PM CST Aphasia Cognition R inattention Apraxic 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 Fall risk ACE FIRER * Rehab Team Speech Therapy Barriers and Concerns - Suzy Rees MS,CCC-[facility] - 08/27/2022 3:40 PM CST Discharge Recommendations: Consistent supervision from a cognitive standpoint Assistance vs supervision with medication and finance management due to cognitiv e impairment -- Assistance completing pillbox set up and monthly bill pay -- Reminders to take medications at appropriate time throughout the day Ongoing ST services at the next level of care targeting cognition, language, dys phagia Current Barriers: Poor insight/awareness into deficits Cognition (poor carryover of education, attention deficits, reduced problem solv ing/reasoning for daily activities) NPO Limited participation/motivation Aphasia (increased difficulty expressing daily wants/needs and participating in conversation) Unable to call for help if alone in an emergency situation Impulsive behaviors Unknown who will provide assistance with medication/finance management upon disc harge High burden of care ACE FIRER documented in this encounter Admitting Diagnoses Diagnosis Acute ischemic left MCA stroke (HCC) Unspecified cerebral artery occlusion w ith cerebral infarction documented in this encounter Administered Medications Action Date Dose Rate Site Medication Order MAR Action 08/31/2022 8:46 PM FURNACE FIRER 650 mg acetaminophen oral solution 650 mg Given 650 mg, PEG Tube, EVERY 4 HOURS PRN, Starting on Sat08/24/22 at 1349, Until Yumiko 09/13/22 at 1506, Pain non-opioid: may be used alone or in combination wit h opioid analgesia, Temp > 38.5 C, TOTAL ACETAMINOPHEN DOSE NOT TO EXCEED 4GM DAILY, Rehab Admission 650 mg Given 08/30/2022 3:31 AM FURNACE FIRER 650 mg Given 08/29/2022 8:53 PM FURNACE FIRER 650 mg Given 08/28/2022 9:35 PM FURNACE FIRER 650 mg Given 08/27/2022 9:54 PM FURNACE FIRER 650 mg Given 08/24/2022 10:14 PM FURNACE FIRER acetaminophen oral solution 650 mg 650 mg, Oral, EVERY 4 HOURS PRN, Starting on Yumiko 09/13/22 at 1504, Until Sat09/14/22 at 1728, Pain non-opioid: may be used alone or in combination wit h opioid analgesia, Temp > 38.5 C, TOTAL ACETAMINOPHEN DOSE NOT TO EXCEED 4GM DAILY, Rehab Admission 09/07/2022 9:02 AM FURNACE FIRER 10 mg amLODIPine (NORVASC) tablet 10 mg Given 10 mg, PEG Tube, DAILY, First dose (after last modification) on Sat 3 at 0900, Until Discontinued, NURSING: Please educate patient and document: Do not give with grapefruit juice. 10 mg Given 09/06/2022 8:53 AM FURNACE FIRER 10 mg Given 09/05/2022 8:36 AM FURNACE FIRER 10 mg Given 09/04/2022 8:28 AM FURNACE FIRER 10 mg Given 09/03/2022 11:04 AM FURNACE FIRER 10 mg Given 09/02/2022 9:33 AM FURNACE FIRER 10 mg Given 09/01/2022 9:53 AM FURNACE FIRER 10 mg Given 08/31/2022 8:34 AM FURNACE FIRER 10 mg Given 08/30/2022 9:48 AM FURNACE FIRER 10 mg Given 08/29/2022 9:38 AM FURNACE FIRER 10 mg Given 08/28/2022 9:31 AM FURNACE FIRER 10 mg Given 08/27/2022 8:37 AM FURNACE FIRER 10 mg Given 08/26/2022 9:21 AM FURNACE FIRER 10 mg Given 08/25/2022 9:40 AM FURNACE FIRER 09/13/2022 10:16 AM CDT 5 mg amLODIPine (NORVASC) tablet 5 mg Given 5 mg, PEG Tube, DAILY, First dose (afte r last modification) on 09/08/22 at 0900, Until Discontinued, NURSING: Please educate patient and document: Do not give with grapefruit juice. 5 mg Given 09/12/2022 8:36 AM CDT 5 mg Given 09/11/2022 8:58 AM CDT 5 mg Given 09/10/2022 8:03 AM CDT 5 mg Given 09/09/2022 9:48 AM CDT 5 mg Given 09/08/2022 8:55 AM FURNACE FIRER 09/14/2022 9:19 AM CDT 5 mg amLODIPine (NORVASC) tablet 5 mg Given 5 mg, Oral, DAILY, First dose (after last modification) on Sat09/14/22 at 0900, Until Discontinued, NURSING: Please educate patient and document: Do not give with grapefruit juice. 09/13/2022 10:16 AM CDT 5 mg apixaban (ELIQUIS) tablet 5 mg Given 5 mg, SEE ADMIN INSTRUCTIONS, TWICE DAILY, First dose (after last modification) on Sat08/24/22 at 2100, Until Discontinued, If patient unable [...] a HIGH ALERT Medication. 5 mg Given 09/12/2022 9:31 PM CDT 5 mg Given 09/12/2022 8:36 AM CDT 5 mg Given 09/11/2022 9:16 PM CDT 5 mg Given 09/11/2022 8:58 AM CDT 5 mg Given 09/10/2022 8:37 PM CDT 5 mg Given 09/10/2022 8:03 AM CDT 5 mg Given 09/09/2022 8:37 PM CDT 5 mg Given 09/09/2022 9:48 AM CDT 5 mg Given 09/08/2022 9:42 PM FURNACE FIRER 5 mg Given 09/08/2022 8:55 AM FURNACE FIRER 5 mg Given 09/07/2022 8:24 PM FURNACE FIRER 5 mg Given 09/07/2022 9:01 AM FURNACE FIRER 5 mg Given 09/06/2022 8:07 PM FURNACE FIRER 5 mg Given 09/06/2022 8:55 AM FURNACE FIRER 5 mg Given 09/05/2022 8:13 PM FURNACE FIRER 5 mg Given 09/05/2022 8:37 AM FURNACE FIRER 5 mg Given 09/04/2022 8:29 PM FURNACE FIRER 5 mg Given 09/04/2022 8:28 AM FURNACE FIRER 5 mg Given 09/03/2022 8:44 PM FURNACE FIRER 5 mg Given 09/03/2022 11:04 AM FURNACE FIRER 5 mg Given 09/02/2022 9:42 PM FURNACE FIRER 5 mg Given 09/02/2022 9:34 AM FURNACE FIRER 5 mg Given 09/01/2022 9:40 PM FURNACE FIRER 5 mg Given 09/01/2022 9:53 AM FURNACE FIRER 5 mg Given 08/31/2022 8:46 PM FURNACE FIRER 5 mg Given 08/31/2022 8:35 AM FURNACE FIRER 5 mg Given 08/30/2022 9:37 PM FURNACE FIRER 5 mg Given 08/30/2022 9:48 AM FURNACE FIRER 5 mg Given 08/29/2022 8:54 PM FURNACE FIRER 5 mg Given 08/29/2022 9:40 AM FURNACE FIRER 5 mg Given 08/28/2022 9:36 PM FURNACE FIRER 5 mg Given 08/28/2022 9:30 AM FURNACE FIRER 5 mg Given 08/27/2022 9:54 PM FURNACE FIRER 5 mg Given 08/27/2022 8:33 AM FURNACE FIRER 5 mg Given 08/26/2022 10:07 PM FURNACE FIRER 5 mg Given 08/26/2022 9:21 AM FURNACE FIRER 5 mg Given 08/25/2022 9:06 PM FURNACE FIRER 5 mg Given 08/25/2022 9:41 AM FURNACE FIRER 5 mg Given 08/24/2022 10:14 PM FURNACE FIRER 09/14/2022 9:19 AM CDT 5 mg apixaban (ELIQUIS) tablet 5 mg Given 5 mg, Oral, TWICE DAILY, First dose (after last modification) on Yumiko 3 at 2100, Until Discontinued, If patient unable to swallow whole tablets, may crush 5mg or 2.5mg tablets and suspend in 60mL of water, D5W, or apple juice o r mix with applesauce; administer immediately. Administer via PEG tube - For delivery through a gastric tube, crushed tablets maybe suspended in 60mL of water or D5W followed immediately by delivery. NOTE: This is a HIGH ALERT Medication. 5 mg Given 09/13/2022 9:00 PM CDT 09/13/2022 10:16 AM CDT 81 mg aspirin chewable tablet 81 mg Given 81 mg, PEG Tube, DAILY, First dose (after last modification) on Sat 3 at 0900, Until Discontinued 81 mg Given 09/12/2022 8:36 AM CDT 81 mg Given 09/11/2022 8:58 AM CDT 81 mg Given 09/10/2022 8:03 AM CDT 81 mg Given 09/09/2022 9:48 AM CDT 81 mg Given 09/08/2022 8:54 AM FURNACE FIRER 81 mg Given 09/07/2022 9:01 AM FURNACE FIRER 81 mg Given 09/06/2022 8:54 AM FURNACE FIRER 81 mg Given 09/05/2022 8:36 AM FURNACE FIRER 81 mg Given 09/04/2022 8:28 AM FURNACE FIRER 81 mg Given 09/03/2022 11:03 AM FURNACE FIRER 81 mg Given 09/02/2022 9:33 AM FURNACE FIRER 81 mg Given 09/01/2022 9:53 AM FURNACE FIRER 81 mg Given 08/31/2022 8:34 AM FURNACE FIRER 81 mg Given 08/30/2022 9:50 AM FURNACE FIRER 81 mg Given 08/29/2022 9:38 AM FURNACE FIRER 81 mg Given 08/28/2022 9:30 AM FURNACE FIRER 81 mg Given 08/27/2022 8:34 AM FURNACE FIRER 81 mg Given 08/26/2022 9:22 AM FURNACE FIRER 81 mg Given 08/25/2022 9:41 AM FURNACE FIRER 09/14/2022 9:19 AM CDT 81 mg aspirin chewable tablet 81 mg Given 81 mg, Oral, DAILY, First dose (after last modification) on Sat09/14/22 at 0900, Until Discontinued 09/13/2022 10:16 AM CDT 80 mg atorvastatin (LIPITOR) tablet 80 mg Given 80 mg, PEG Tube, DAILY, First dose (after last modification) on Sat at 0900, Until Discontinued 80 mg Given 09/12/2022 8:36 AM CDT 80 mg Given 09/11/2022 8:58 AM CDT 80 mg Given 09/10/2022 8:03 AM CDT 80 mg Given 09/09/2022 9:48 AM CDT 80 mg Given 09/08/2022 8:54 AM FURNACE FIRER 80 mg Given 09/07/2022 9:01 AM FURNACE FIRER 80 mg Given 09/06/2022 8:53 AM FURNACE FIRER 80 mg Given 09/05/2022 8:36 AM FURNACE FIRER 80 mg Given 09/04/2022 8:28 AM FURNACE FIRER 80 mg Given 09/03/2022 11:04 AM FURNACE FIRER 80 mg Given 09/02/2022 9:33 AM FURNACE FIRER 80 mg Given 09/01/2022 9:53 AM FURNACE FIRER 80 mg Given 08/31/2022 8:34 AM FURNACE FIRER 80 mg Given 08/30/2022 9:47 AM FURNACE FIRER 80 mg Given 08/29/2022 9:39 AM FURNACE FIRER 80 mg Given 08/28/2022 9:31 AM FURNACE FIRER 80 mg Given 08/27/2022 8:33 AM FURNACE FIRER 80 mg Given 08/26/2022 9:23 AM FURNACE FIRER 80 mg Given 08/25/2022 9:41 AM FURNACE FIRER 09/14/2022 9:19 AM CDT 80 mg atorvastatin (LIPITOR) tablet 80 mg Given 80 mg, Oral, DAILY, First dose (after last modification) on Sat09/14/22 at 0900, Until Discontinued 09/13/2022 8:59 PM CDT 5 mg baclofen (LIORESAL) tablet 5 mg Given 5 mg, Oral, AT BEDTIME DAILY, First dos e on Sat09/05/22 at 2100, Until Discontinued 5 mg Given 09/12/2022 9:31 PM CDT 5 mg Given 09/11/2022 9:16 PM CDT 5 mg Given 09/10/2022 8:37 PM CDT 5 mg Given 09/09/2022 8:37 PM CDT 5 mg Given 09/08/2022 9:42 PM FURNACE FIRER 5 mg Given 09/07/2022 8:25 PM FURNACE FIRER 5 mg Given 09/06/2022 8:07 PM FURNACE FIRER 5 mg Given 09/05/2022 8:11 PM FURNACE FIRER 09/13/2022 2:30 PM CDT 10 mL barium sulfate 40 % (VARIBAR HONEY) oral Given suspension 10 mL 10 mL, Oral, ONCE, 1 dose, On Sat09/13/22 at 1430, GI Procedure Area Only 09/13/2022 2:29 PM CDT 60 mL barium sulfate 40 % (VARIBAR NECTAR) Given oral suspension 60 mL 60 mL, Oral, ONCE, 1 dose, On Sat09/13/22 at 1430, GI Procedure Area Only 09/13/2022 2:29 PM CDT 10 mL barium sulfate 40 % (VARIBAR PUDDING) Given oral paste 10 mL 10 mL, Oral, ONCE, 1 dose, On Sat09/13/22 at 1430, GI Procedure Area Only 09/13/2022 2:29 PM CDT 60 mL barium sulfate 40 % (VARIBAR THIN Given LIQUID) oral powder for suspension 60 m L 60 mL, Oral, ONCE, 1 dose, On Yumiko 09/13/22 at 1430, Mixing Instructions: 1 . Gently shake the [...] ready for use., GI Procedure Area Only 09/10/2022 8:03 AM CDT 6.25 mg carvediloL (COREG) tablet 6.25 mg Given 6.25 mg, PEG Tube, TWICE DAILY, First dose (after last modification) on Sat08/24/22 at 2100, Until Discontinued, Hold for heart rate < 60 bpm or systoli c BP < 100 6.25 mg Given 09/09/2022 8:36 PM CDT 6.25 mg Given 09/09/2022 9:49 AM CDT 6.25 mg Given 09/08/2022 9:42 PM FURNACE FIRER 6.25 mg Given 09/08/2022 8:59 AM FURNACE FIRER 6.25 mg Given 09/07/2022 8:25 PM FURNACE FIRER 6.25 mg Given 09/07/2022 9:02 AM FURNACE FIRER 6.25 mg Given 09/06/2022 8:07 PM FURNACE FIRER 6.25 mg Given 09/06/2022 8:54 AM FURNACE FIRER 6.25 mg Given 09/05/2022 8:12 PM FURNACE FIRER 6.25 mg Given 09/05/2022 8:37 AM FURNACE FIRER 6.25 mg Given 09/04/2022 8:28 PM FURNACE FIRER 6.25 mg Given 09/04/2022 8:28 AM FURNACE FIRER 6.25 mg Given 09/03/2022 8:44 PM FURNACE FIRER 6.25 mg Given 09/03/2022 11:04 AM FURNACE FIRER 6.25 mg Given 09/02/2022 9:41 PM FURNACE FIRER 6.25 mg Given 09/02/2022 9:34 AM FURNACE FIRER 6.25 mg Given 09/01/2022 9:42 PM FURNACE FIRER 6.25 mg Given 09/01/2022 9:53 AM FURNACE FIRER 6.25 mg Given 08/31/2022 8:46 PM FURNACE FIRER 6.25 mg Given 08/31/2022 8:33 AM FURNACE FIRER 6.25 mg Given 08/30/2022 9:37 PM FURNACE FIRER 6.25 mg Given 08/30/2022 9:48 AM FURNACE FIRER 6.25 mg Given 08/29/2022 8:55 PM FURNACE FIRER 6.25 mg Given 08/29/2022 9:38 AM FURNACE FIRER 6.25 mg Given 08/28/2022 9:36 PM FURNACE FIRER 6.25 mg Given 08/28/2022 9:30 AM FURNACE FIRER 6.25 mg Given 08/27/2022 9:55 PM FURNACE FIRER 6.25 mg Given 08/27/2022 8:37 AM FURNACE FIRER 6.25 mg Given 08/26/2022 10:10 PM FURNACE FIRER 6.25 mg Given 08/26/2022 9:23 AM FURNACE FIRER 6.25 mg Given 08/25/2022 9:07 PM FURNACE FIRER 6.25 mg Given 08/24/2022 10:14 PM FURNACE FIRER 09/07/2022 12:03 PM FURNACE FIRER Diet Enteral Feeding Bolus Given FIVE TIMES DAILY (ENAR), First dose on Sat08/24/22 at 1500, Until Discontinued , 1.5 cartons at 0600 1 carton at 06-14-18 Given 09/07/2022 6:35 AM FURNACE FIRER Given 09/06/2022 9:36 PM FURNACE FIRER Given 09/06/2022 5:51 PM FURNACE FIRER Given 09/06/2022 3:10 PM FURNACE FIRER Given 09/06/2022 11:54 AM FURNACE FIRER Given 09/06/2022 6:13 AM FURNACE FIRER Given 09/05/2022 9:41 PM FURNACE FIRER 375 each Given 09/05/2022 6:25 PM FURNACE FIRER Given 09/05/2022 11:47 AM FURNACE FIRER Given 09/05/2022 6:20 AM FURNACE FIRER Given 09/04/2022 10:39 PM FURNACE FIRER Given 09/04/2022 6:03 PM FURNACE FIRER Given 09/04/2022 12:03 PM FURNACE FIRER Given 09/04/2022 6:07 AM FURNACE FIRER Given 09/03/2022 9:01 PM FURNACE FIRER Given 09/03/2022 6:55 PM FURNACE FIRER Given 09/03/2022 2:46 PM FURNACE FIRER Given 09/03/2022 11:04 AM FURNACE FIRER 1.5 each Given 09/03/2022 6:43 AM FURNACE FIRER 1 each Given 09/02/2022 9:43 PM FURNACE FIRER Given 09/02/2022 6:02 PM FURNACE FIRER Given 09/02/2022 3:25 PM FURNACE FIRER Given 09/02/2022 12:04 PM FURNACE FIRER Given 09/02/2022 5:37 AM FURNACE FIRER Given 09/01/2022 10:22 PM FURNACE FIRER Given 09/01/2022 6:30 PM FURNACE FIRER Given 09/01/2022 3:30 PM FURNACE FIRER Given 09/01/2022 12:19 PM FURNACE FIRER Given 09/01/2022 5:34 AM FURNACE FIRER Given 08/31/2022 9:13 PM FURNACE FIRER Given 08/31/2022 6:30 PM FURNACE FIRER Given 08/31/2022 3:30 PM FURNACE FIRER Given 08/31/2022 12:10 PM FURNACE FIRER Given 08/31/2022 7:16 AM FURNACE FIRER Given 08/30/2022 10:01 PM FURNACE FIRER Given 08/30/2022 7:01 PM FURNACE FIRER Given 08/30/2022 4:30 PM FURNACE FIRER Given 08/30/2022 1:20 PM FURNACE FIRER Given 08/30/2022 6:44 AM FURNACE FIRER Given 08/29/2022 9:14 PM FURNACE FIRER Given 08/29/2022 5:59 PM FURNACE FIRER Given 08/29/2022 3:43 PM FURNACE FIRER Given 08/29/2022 12:45 PM FURNACE FIRER 1.5 each Given 08/29/2022 6:33 AM FURNACE FIRER Given 08/28/2022 9:37 PM FURNACE FIRER Given 08/28/2022 5:31 PM FURNACE FIRER Given 08/28/2022 3:12 PM FURNACE FIRER Given 08/28/2022 11:20 AM FURNACE FIRER Given 08/28/2022 6:04 AM FURNACE FIRER Given 08/27/2022 9:56 PM FURNACE FIRER Given 08/27/2022 6:00 PM FURNACE FIRER Given 08/27/2022 3:00 PM FURNACE FIRER Given 08/27/2022 12:06 PM FURNACE FIRER 375 each Given 08/27/2022 6:11 AM FURNACE FIRER 250 each Given 08/26/2022 10:08 PM FURNACE FIRER 1 each Given 08/26/2022 6:42 PM FURNACE FIRER Given 08/26/2022 3:32 PM FURNACE FIRER 1 each Given 08/26/2022 12:19 PM FURNACE FIRER 250 each Given 08/25/2022 10:00 PM FURNACE FIRER 1 each Given 08/25/2022 6:18 PM FURNACE FIRER Given 08/25/2022 3:10 PM FURNACE FIRER 1 each Given 08/25/2022 12:00 PM FURNACE FIRER 375 each Given 08/25/2022 6:10 AM FURNACE FIRER 250 each Given 08/24/2022 10:15 PM FURNACE FIRER Given 08/24/2022 5:54 PM FURNACE FIRER Given 08/24/2022 3:25 PM FURNACE FIRER 09/10/2022 6:45 AM CDT Diet Enteral Feeding Bolus Given FIVE TIMES DAILY (ENAR), First dose (after last modification) on Sat 3 at 1500, Until Discontinued, 1.5 carton s at 0600 1 carton at 06-14-18 Given 09/09/2022 11:24 PM CDT Given 09/09/2022 6:21 PM CDT Given 09/09/2022 2:35 PM CDT Given 09/09/2022 12:11 PM CDT Given 09/09/2022 6:32 AM CDT Given 09/08/2022 10:00 PM FURNACE FIRER Given 09/08/2022 6:00 PM FURNACE FIRER Given 09/08/2022 3:42 PM FURNACE FIRER Given 09/08/2022 12:01 PM FURNACE FIRER Given 09/08/2022 6:13 AM FURNACE FIRER Given 09/07/2022 9:50 PM FURNACE FIRER Given 09/07/2022 6:29 PM FURNACE FIRER Given 09/07/2022 4:12 PM FURNACE FIRER 09/13/2022 12:09 PM CDT Diet Enteral Feeding Bolus Given FIVE TIMES DAILY (ENAR), First dose (after last modification) on Sat 3 at 1200, Until Discontinued Given 09/13/2022 5:50 AM CDT Given 09/12/2022 9:56 PM CDT Given 09/12/2022 6:00 PM CDT Given 09/12/2022 3:00 PM CDT Given 09/12/2022 11:55 AM CDT Given 09/12/2022 6:32 AM CDT Given 09/11/2022 9:44 PM CDT 250 each Given 09/11/2022 6:50 PM CDT 250 each Given 09/11/2022 3:25 PM CDT Given 09/11/2022 12:01 PM CDT Given by Patient/Family 09/11/2022 6:00 AM CDT Given 09/10/2022 9:48 PM CDT Given 09/10/2022 6:58 PM CDT Given 09/10/2022 4:58 PM CDT Given 09/10/2022 1:01 PM CDT 09/14/2022 1:10 PM CDT Diet Enteral Feeding Bolus Given FOUR TIMES DAILY (ENAR), First dose (after last modification) on Yumiko 3 at 2000, Until Discontinued Given 09/14/2022 6:00 AM CDT Given 09/13/2022 8:58 PM CDT 08/30/2022 9:47 AM FURNACE FIRER 100 mg docusate sodium (COLACE) oral solution Given 100 mg 100 mg, PEG Tube, TWICE DAILY, First dose on Sat08/24/22 at 1400, Until Discontinued, Hold for loose stools, Rehab Admission 100 mg Given 08/29/2022 9:40 AM FURNACE FIRER 100 mg Given 08/28/2022 9:38 PM FURNACE FIRER 100 mg Given 08/28/2022 9:33 AM FURNACE FIRER 100 mg Given 08/27/2022 9:53 PM FURNACE FIRER 100 mg Given 08/27/2022 8:33 AM FURNACE FIRER 100 mg Given 08/26/2022 10:07 PM FURNACE FIRER 100 mg Given 08/26/2022 9:24 AM FURNACE FIRER 100 mg Given 08/25/2022 9:06 PM FURNACE FIRER 100 mg Given 08/25/2022 9:49 AM FURNACE FIRER 09/05/2022 8:36 AM FURNACE FIRER 1 mg doxazosin (CARDURA) tablet 1 mg Given 1 mg, PEG Tube, DAILY, First dose (afte r last modification) on 08/25/22 at 0900, Until Discontinued, Hold for systolic BP < 90 1 mg Given 09/04/2022 8:28 AM FURNACE FIRER 1 mg Given 09/03/2022 11:03 AM FURNACE FIRER 1 mg Given 09/02/2022 9:34 AM FURNACE FIRER 1 mg Given 09/01/2022 9:53 AM FURNACE FIRER 1 mg Given 08/31/2022 8:34 AM FURNACE FIRER 1 mg Given 08/30/2022 9:48 AM FURNACE FIRER 1 mg Given 08/29/2022 9:39 AM FURNACE FIRER 1 mg Given 08/28/2022 9:30 AM FURNACE FIRER 1 mg Given 08/27/2022 8:34 AM FURNACE FIRER 1 mg Given 08/26/2022 9:24 AM FURNACE FIRER 1 mg Given 08/25/2022 9:49 AM FURNACE FIRER emollient (ELTA) topical cream Topical, NEEDED, Starting on Sat08/24/22 at 1349, Until Sat09/14/22 at 1728, Dry Skin, Apply to rash on back 09/13/2022 10:16 AM CDT 20 mg famotidine (PEPCID) tablet 20 mg Given 20 mg, PEG Tube, DAILY, First dose on Sat08/27/22 at 1115, Until Discontinued , Thr PEG tube 20 mg Given 09/12/2022 8:36 AM CDT 20 mg Given 09/11/2022 8:58 AM CDT 20 mg Given 09/10/2022 8:03 AM CDT 20 mg Given 09/09/2022 9:47 AM CDT 20 mg Given 09/08/2022 8:55 AM FURNACE FIRER 20 mg Given 09/07/2022 9:01 AM FURNACE FIRER 20 mg Given 09/06/2022 8:53 AM FURNACE FIRER 20 mg Given 09/05/2022 8:37 AM FURNACE FIRER 20 mg Given 09/04/2022 8:28 AM FURNACE FIRER 20 mg Given 09/03/2022 11:04 AM FURNACE FIRER 20 mg Given 09/02/2022 9:33 AM FURNACE FIRER 20 mg Given 09/01/2022 9:53 AM FURNACE FIRER 20 mg Given 08/31/2022 8:33 AM FURNACE FIRER 20 mg Given 08/30/2022 9:48 AM FURNACE FIRER 20 mg Given 08/29/2022 9:38 AM FURNACE FIRER 20 mg Given 08/28/2022 9:30 AM FURNACE FIRER 20 mg Given 08/27/2022 12:06 PM FURNACE FIRER 09/14/2022 9:19 AM CDT 20 mg famotidine (PEPCID) tablet 20 mg Given 20 mg, Oral, DAILY, First dose (after last modification) on Sat09/14/22 at 0900, Until Discontinued, Thr PEG tube 08/27/2022 2:00 PM FURNACE FIRER 20 g lactulose (GENERLAC) oral solution 20 g Given 20 g (30 mL), PEG Tube, ONCE, 1 dose, O n 08/27/22 at 1345 09/13/2022 10:16 AM CDT 500 mg levETIRAcetam (KEPPRA) oral solution 500 Given mg 500 mg, PEG Tube, TWICE DAILY, First dose (after last modification) on Sat08/24/22 at 2100, Until Discontinued 500 mg Given 09/12/2022 9:32 PM CDT 500 mg Given 09/12/2022 8:36 AM CDT 500 mg Given 09/11/2022 9:15 PM CDT 500 mg Given 09/11/2022 8:57 AM CDT 500 mg Given 09/10/2022 8:37 PM CDT 500 mg Given 09/10/2022 8:03 AM CDT 500 mg Given 09/09/2022 8:37 PM CDT 500 mg Given 09/09/2022 9:48 AM CDT 500 mg Given 09/08/2022 9:43 PM FURNACE FIRER 500 mg Given 09/08/2022 8:53 AM FURNACE FIRER 500 mg Given 09/07/2022 8:24 PM FURNACE FIRER 500 mg Given 09/07/2022 9:02 AM FURNACE FIRER 500 mg Given 09/06/2022 8:06 PM FURNACE FIRER 500 mg Given 09/06/2022 8:52 AM FURNACE FIRER 500 mg Given 09/05/2022 8:11 PM FURNACE FIRER 500 mg Given 09/05/2022 8:37 AM FURNACE FIRER 500 mg Given 09/04/2022 8:21 PM FURNACE FIRER 500 mg Given 09/04/2022 8:28 AM FURNACE FIRER 500 mg Given 09/03/2022 8:43 PM FURNACE FIRER 500 mg Given 09/03/2022 11:03 AM FURNACE FIRER 500 mg Given 09/02/2022 9:41 PM FURNACE FIRER 500 mg Given 09/02/2022 9:33 AM FURNACE FIRER 500 mg Given 09/01/2022 9:40 PM FURNACE FIRER 500 mg Given 09/01/2022 9:53 AM FURNACE FIRER 500 mg Given 08/31/2022 8:45 PM FURNACE FIRER 500 mg Given 08/31/2022 8:38 AM FURNACE FIRER 500 mg Given 08/30/2022 9:39 PM FURNACE FIRER 500 mg Given 08/30/2022 9:47 AM FURNACE FIRER 500 mg Given 08/29/2022 8:54 PM FURNACE FIRER 500 mg Given 08/29/2022 9:40 AM FURNACE FIRER 500 mg Given 08/28/2022 9:35 PM FURNACE FIRER 500 mg Given 08/28/2022 9:31 AM FURNACE FIRER 500 mg Given 08/27/2022 9:53 PM FURNACE FIRER 500 mg Given 08/27/2022 8:33 AM FURNACE FIRER 500 mg Given 08/26/2022 10:07 PM FURNACE FIRER 500 mg Given 08/26/2022 9:26 AM FURNACE FIRER 500 mg Given 08/25/2022 9:06 PM FURNACE FIRER 500 mg Given 08/25/2022 9:49 AM FURNACE FIRER 500 mg Given 08/24/2022 10:14 PM FURNACE FIRER 09/14/2022 9:19 AM CDT 500 mg levETIRAcetam (KEPPRA) tablet 500 mg Given 500 mg, Oral, TWICE DAILY, First dose o n Yumiko 09/13/22 at 2100, Until Discontinued 500 mg Given 09/13/2022 8:59 PM CDT 09/13/2022 6:03 AM CDT 125 mcg levothyroxine (SYNTHROID) tablet 125 mcg Given 125 mcg, PEG Tube, DAILY, First dose (after last modification) on Sat 08/25/ 3 at 0700, Until Discontinued, Give 1 gladis r before a meal. If patient is receiving tube feedings, hold tube feed 1hr befor e and 1hr after dose. 125 mcg Given 09/12/2022 6:14 AM CDT 125 mcg Given 09/11/2022 6:00 AM CDT 125 mcg Given 09/10/2022 5:19 AM CDT 125 mcg Given 09/09/2022 9:47 AM CDT 125 mcg Given 09/08/2022 6:14 AM FURNACE FIRER 125 mcg Given 09/07/2022 6:35 AM FURNACE FIRER 125 mcg Given 09/06/2022 6:00 AM FURNACE FIRER 125 mcg Given 09/05/2022 6:08 AM FURNACE FIRER 125 mcg Given 09/04/2022 6:07 AM FURNACE FIRER 125 mcg Given 09/03/2022 6:42 AM FURNACE FIRER 125 mcg Given 09/02/2022 6:41 AM FURNACE FIRER 125 mcg Given 09/01/2022 6:52 AM FURNACE FIRER 125 mcg Given 08/31/2022 6:13 AM FURNACE FIRER 125 mcg Given 08/30/2022 5:38 AM FURNACE FIRER 125 mcg Given 08/29/2022 6:32 AM FURNACE FIRER 125 mcg Given 08/28/2022 4:46 AM FURNACE FIRER 125 mcg Given 08/27/2022 6:10 AM FURNACE FIRER 125 mcg Given 08/26/2022 6:03 AM FURNACE FIRER 125 mcg Given 08/25/2022 6:10 AM FURNACE FIRER 09/14/2022 6:56 AM CDT 125 mcg levothyroxine (SYNTHROID) tablet 125 mcg Given 125 mcg, Oral, DAILY, First dose (after last modification) on Sat09/14/22 at 0700, Until Discontinued, Give 1 hour before a meal. If patient is receiving tube feedings, hold tube feed 1hr befor e and 1hr after dose. 09/07/2022 9:01 AM FURNACE FIRER 400 mg magnesium oxide (MAGOX) tablet 400 mg Given 400 mg, PEG Tube, TWICE DAILY, First dose on Sat08/27/22 at 1115, Until Discontinued, Delivers 241.3mg elementa l magnesium per tab 400 mg Given 09/06/2022 8:06 PM FURNACE FIRER 400 mg Given 09/06/2022 8:54 AM FURNACE FIRER 400 mg Given 09/05/2022 8:11 PM FURNACE FIRER 400 mg Given 09/05/2022 8:36 AM FURNACE FIRER 400 mg Given 09/04/2022 8:29 PM FURNACE FIRER 400 mg Given 08/31/2022 8:46 PM FURNACE FIRER 400 mg Given 08/31/2022 8:33 AM FURNACE FIRER 400 mg Given 08/30/2022 9:37 PM FURNACE FIRER 400 mg Given 08/30/2022 9:50 AM FURNACE FIRER 400 mg Given 08/29/2022 8:54 PM FURNACE FIRER 400 mg Given 08/29/2022 9:39 AM FURNACE FIRER 400 mg Given 08/28/2022 9:36 PM FURNACE FIRER 400 mg Given 08/28/2022 9:30 AM FURNACE FIRER 400 mg Given 08/27/2022 9:54 PM FURNACE FIRER 400 mg Given 08/27/2022 12:06 PM FURNACE FIRER 09/10/2022 7:02 PM CDT 1 g 25 mL/hr magnesium sulfate 1 g/D5W 100 mL IVPB Given - New 1 g, Intravenous, 100 mL, Administer Bag over 4 Hours, EVERY 4 HOURS, 1 dose, First dose on Sat09/10/22 at 1900, Each 1gm delivers 8.1 mEq Magnesium. 09/10/2022 10:50 PM CDT 1 g 25 mL/hr magnesium sulfate 1 g/D5W 100 mL IVPB Given - New 1 g, Intravenous, 100 mL, Administer Bag over 4 Hours, EVERY 4 HOURS, 1 dose, First dose on Sat09/10/22 at 2300, Each 1gm delivers 8.1 mEq Magnesium. 09/12/2022 9:31 PM CDT 5 mg melatonin tablet 5 mg Given 5 mg, PEG Tube, AT BEDTIME DAILY, First dose (after last modification) on Sat08/24/22 at 2100, Until Discontinued 5 mg Given 09/11/2022 9:16 PM CDT 5 mg Given 09/10/2022 8:37 PM CDT 5 mg Given 09/09/2022 8:36 PM CDT 5 mg Given 09/08/2022 9:42 PM FURNACE FIRER 5 mg Given 09/07/2022 8:25 PM FURNACE FIRER 5 mg Given 09/06/2022 8:06 PM FURNACE FIRER 5 mg Given 09/05/2022 8:12 PM FURNACE FIRER 5 mg Given 09/04/2022 8:30 PM FURNACE FIRER 5 mg Given 09/03/2022 8:43 PM FURNACE FIRER 5 mg Given 09/02/2022 9:42 PM FURNACE FIRER 5 mg Given 09/01/2022 9:40 PM FURNACE FIRER 5 mg Given 08/31/2022 8:46 PM FURNACE FIRER 5 mg Given 08/30/2022 9:37 PM FURNACE FIRER 5 mg Given 08/29/2022 8:54 PM FURNACE FIRER 5 mg Given 08/28/2022 9:36 PM FURNACE FIRER 5 mg Given 08/27/2022 9:54 PM FURNACE FIRER 5 mg Given 08/26/2022 10:07 PM FURNACE FIRER 5 mg Given 08/25/2022 9:06 PM FURNACE FIRER 5 mg Given 08/24/2022 10:15 PM FURNACE FIRER 09/13/2022 8:59 PM CDT 5 mg melatonin tablet 5 mg Given 5 mg, Oral, AT BEDTIME DAILY, First dos e (after last modification) on [address] 3 at 2100, Until Discontinued 08/26/2022 3:35 PM FURNACE FIRER 10 mL milk of magnesia (CONC) oral suspension Given 10 mL 10 mL, PEG Tube, EVERY 4 HOURS PRN, Starting on Sat08/24/22 at 1349, Until Sat08/27/22 at 1014, Constipation PO, Rehab Admission 09/12/2022 6:03 PM CDT [employer] Fiber Supplement Packets Given DAILY, First dose on Sat09/10/22 at 1800, Until Discontinued, Allergies on file: Patient has no known allergies. Given 09/11/2022 9:23 PM CDT Given 09/10/2022 9:47 PM CDT 09/13/2022 9:11 PM CDT [employer] Fiber Supplement Packets Given DAILY, First dose (after last modification) on Sat09/13/22 at 2000, Until Discontinued, Allergies on file: Patient has no known allergies. 09/11/2022 8:57 AM CDT 100,000 Units nystatin (MYCOSTATIN) oral suspension Given 100,000 Units 100,000 Units, Oral, FOUR TIMES DAILY, 56 doses, First dose on Sat08/28/22 at 1300, Last dose on Sat09/11/22 at 0900 100,000 Units Given 09/10/2022 5:00 PM CDT 100,000 Units Given 09/10/2022 1:02 PM CDT 100,000 Units Given 09/10/2022 8:03 AM CDT 100,000 Units Given 09/09/2022 8:37 PM CDT 100,000 Units Given 09/09/2022 6:21 PM CDT 100,000 Units Given 09/09/2022 12:10 PM CDT 100,000 Units Given 09/09/2022 9:48 AM CDT 100,000 Units Given 09/08/2022 9:43 PM FURNACE FIRER 100,000 Units Given 09/08/2022 5:48 PM FURNACE FIRER 100,000 Units Given 09/08/2022 12:09 PM FURNACE FIRER 100,000 Units Given 09/08/2022 8:53 AM FURNACE FIRER 100,000 Units Given 09/07/2022 8:24 PM FURNACE FIRER 100,000 Units Given 09/07/2022 4:07 PM FURNACE FIRER 100,000 Units Given 09/07/2022 12:00 PM FURNACE FIRER 100,000 Units Given 09/07/2022 9:02 AM FURNACE FIRER 100,000 Units Given 09/06/2022 8:06 PM FURNACE FIRER 100,000 Units Given 09/06/2022 5:51 PM FURNACE FIRER 100,000 Units Given 09/06/2022 12:07 PM FURNACE FIRER 100,000 Units Given 09/06/2022 8:50 AM FURNACE FIRER 100,000 Units Given 09/05/2022 8:11 PM FURNACE FIRER 100,000 Units Given 09/05/2022 6:36 PM FURNACE FIRER 100,000 Units Given 09/05/2022 1:47 PM FURNACE FIRER 100,000 Units Given 09/05/2022 8:37 AM FURNACE FIRER 100,000 Units Given 09/04/2022 8:21 PM FURNACE FIRER 100,000 Units Given 09/04/2022 12:03 PM FURNACE FIRER 100,000 Units Given 09/04/2022 8:29 AM FURNACE FIRER 100,000 Units Given 09/03/2022 9:04 PM FURNACE FIRER 100,000 Units Given 09/03/2022 5:00 PM FURNACE FIRER 100,000 Units Given 09/03/2022 2:45 PM FURNACE FIRER 100,000 Units Given 09/03/2022 11:03 AM FURNACE FIRER 100,000 Units Given 09/01/2022 9:40 PM FURNACE FIRER 100,000 Units Given 09/01/2022 9:53 AM FURNACE FIRER 100,000 Units Given 08/31/2022 8:47 PM FURNACE FIRER 100,000 Units Given 08/31/2022 6:30 PM FURNACE FIRER 100,000 Units Given 08/31/2022 12:21 PM FURNACE FIRER 100,000 Units Given 08/31/2022 8:51 AM FURNACE FIRER 100,000 Units Given 08/30/2022 9:39 PM FURNACE FIRER 100,000 Units Given 08/30/2022 4:30 PM FURNACE FIRER 100,000 Units Given 08/30/2022 1:19 PM FURNACE FIRER 100,000 Units Given 08/30/2022 9:47 AM FURNACE FIRER 100,000 Units Given 08/29/2022 9:14 PM FURNACE FIRER 100,000 Units Given 08/29/2022 5:58 PM FURNACE FIRER 100,000 Units Given 08/29/2022 12:45 PM FURNACE FIRER 100,000 Units Given 08/29/2022 9:38 AM FURNACE FIRER 100,000 Units Given 08/28/2022 9:38 PM FURNACE FIRER 100,000 Units Given 08/28/2022 5:31 PM FURNACE FIRER 100,000 Units Given 08/28/2022 12:30 PM FURNACE FIRER pancrelipase 20,880 Units/sodium bicarbonate 650 mg (KU CLOG DESTROYER) Feeding Tube, 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 Crush one pancrelipase [...] physician if tube remains occluded following administration. 09/04/2022 12:03 PM FURNACE FIRER 20 mEq potassium chloride oral solution 20 mEq Given 20 mEq, Feeding Tube, ONCE, 1 dose, On Sat09/04/22 at 1000, Give with a meal or dilute solution with 4 oz of water. 09/05/2022 11:47 AM FURNACE FIRER 20 mEq potassium chloride oral solution 20 mEq Given 20 mEq, Per G Tube, ONCE, 1 dose, On 09/05/22 at 1130, Give with a meal or dilute solution with 4 oz of water. 09/07/2022 12:01 PM FURNACE FIRER 20 mEq potassium chloride oral solution 20 mEq Given 20 mEq, Feeding Tube, ONCE, 1 dose, On Sat09/07/22 at 1045, Give with a meal o r dilute solution with 4 oz of water. 09/13/2022 10:14 PM CDT 20 mEq potassium chloride oral solution 20 mEq Given 20 mEq, PEG Tube, THREE TIMES DAILY WIT H MEALS, 3 doses, First dose (after last modification) on Sat09/13/22 at 1200, Last dose on Sat09/13/22 at 1800, Give with a meal or dilute solution with 4 o z of water. Give with 1200, 1500, and 180 0 feeding. 20 mEq Given 09/13/2022 5:12 PM CDT 20 mEq Given 09/13/2022 12:09 PM CDT 08/26/2022 1:57 AM FURNACE FIRER 12.5 mg QUEtiapine (SEROquel) tablet 12.5 mg Given 12.5 mg, PEG Tube, ONCE, 1 dose, On Sat08/26/22 at 0245 08/29/2022 8:54 PM FURNACE FIRER 12.5 mg QUEtiapine (SEROquel) tablet 12.5 mg Given 12.5 mg, Per G Tube, AT BEDTIME DAILY, First dose on Sat08/26/22 at 2100, Unti l Discontinued 12.5 mg Given 08/28/2022 9:36 PM FURNACE FIRER 12.5 mg Given 08/27/2022 9:55 PM FURNACE FIRER 12.5 mg Given 08/26/2022 10:07 PM FURNACE FIRER 08/30/2022 11:32 AM FURNACE FIRER 12.5 mg QUEtiapine (SEROquel) tablet 12.5 mg Given 12.5 mg, Per G Tube, DAILY PRN, Starting on Sat08/30/22 at 1015, Until Sat09/10/22 at 0857, Agitation PO 09/09/2022 8:37 PM CDT 12.5 mg QUEtiapine (SEROquel) tablet 12.5 mg Given 12.5 mg, PEG Tube, AT BEDTIME DAILY, First dose (after last modification) on Sat08/31/22 at 2100, Until Discontinued 12.5 mg Given 09/08/2022 9:42 PM FURNACE FIRER 12.5 mg Given 09/07/2022 8:24 PM FURNACE FIRER 12.5 mg Given 09/06/2022 8:07 PM FURNACE FIRER 12.5 mg Given 09/05/2022 8:13 PM FURNACE FIRER 12.5 mg Given 09/04/2022 8:29 PM FURNACE FIRER 12.5 mg Given 09/03/2022 8:44 PM FURNACE FIRER 12.5 mg Given 09/02/2022 9:41 PM FURNACE FIRER 12.5 mg Given 09/01/2022 9:40 PM FURNACE FIRER 12.5 mg Given 08/31/2022 8:46 PM FURNACE FIRER 09/13/2022 8:59 PM CDT 12.5 mg QUEtiapine (SEROquel) tablet 12.5 mg Given 12.5 mg, Oral, AT BEDTIME DAILY, First dose (after last modification) on Sat09/12/22 at 2100, Until Discontinued 12.5 mg Given 09/12/2022 9:31 PM CDT 08/25/2022 12:45 AM FURNACE FIRER 25 mg QUEtiapine (SEROquel) tablet 25 mg Given 25 mg, PEG Tube, AT BEDTIME PRN, Starting on 08/25/22 at 0016, Until 08/26/22 at 1031, Agitation PO 08/29/2022 8:53 PM FURNACE FIRER 17.6 mg senna (SENOKOT) oral syrup 17.6 mg Given 17.6 mg (10 mL), PEG Tube, AT BEDTIME DAILY, First dose on Sat08/24/22 at 2100, Until Discontinued, Hold for loos e stools, Rehab Admission 17.6 mg Given 08/28/2022 9:35 PM FURNACE FIRER 17.6 mg Given 08/27/2022 9:53 PM FURNACE FIRER 17.6 mg Given 08/26/2022 10:07 PM FURNACE FIRER 17.6 mg Given 08/25/2022 9:06 PM FURNACE FIRER 09/04/2022 8:28 AM FURNACE FIRER 50 mg sertraline (ZOLOFT) tablet 50 mg Given 50 mg, Oral, DAILY, First dose on Sat08/30/22 at 0900, Until Discontinued 50 mg Given 09/03/2022 11:04 AM FURNACE FIRER 50 mg Given 09/02/2022 9:34 AM FURNACE FIRER 50 mg Given 09/01/2022 9:53 AM FURNACE FIRER 50 mg Given 08/31/2022 8:33 AM FURNACE FIRER 50 mg Given 08/30/2022 9:50 AM FURNACE FIRER 09/13/2022 10:16 AM CDT 50 mg sertraline (ZOLOFT) tablet 50 mg Given 50 mg, Feeding Tube, DAILY, First dose (after last modification) on Sat09/05/22 at 0900, Until Discontinued 50 mg Given 09/12/2022 8:36 AM CDT 50 mg Given 09/11/2022 8:58 AM CDT 50 mg Given 09/10/2022 8:03 AM CDT 50 mg Given 09/09/2022 9:48 AM CDT 50 mg Given 09/08/2022 8:55 AM FURNACE FIRER 50 mg Given 09/07/2022 9:01 AM FURNACE FIRER 50 mg Given 09/06/2022 8:54 AM FURNACE FIRER 50 mg Given 09/05/2022 8:36 AM FURNACE FIRER 09/14/2022 9:19 AM CDT 50 mg sertraline (ZOLOFT) tablet 50 mg Given 50 mg, Oral, DAILY, First dose (after last modification) on Sat09/14/22 at 0900, Until Discontinued 09/13/2022 10:16 AM CDT 80 mg simethicone (MYLICON) chew tablet 80 mg Given 80 mg, Per G Tube, THREE TIMES DAILY, First dose on Sat09/06/22 at 1030, Until Discontinued 80 mg Given 09/12/2022 9:36 PM CDT 80 mg Given 09/12/2022 3:00 PM CDT 80 mg Given 09/12/2022 8:36 AM CDT 80 mg Given 09/11/2022 9:16 PM CDT 80 mg Given 09/11/2022 3:36 PM CDT 80 mg Given 09/11/2022 8:58 AM CDT 80 mg Given 09/10/2022 8:36 PM CDT 80 mg Given 09/10/2022 4:58 PM CDT 80 mg Given 09/10/2022 8:32 AM CDT 80 mg Given 09/09/2022 8:36 PM CDT 80 mg Given 09/09/2022 2:35 PM CDT 80 mg Given 09/09/2022 9:48 AM CDT 80 mg Given 09/08/2022 9:42 PM FURNACE FIRER 80 mg Given 09/08/2022 3:42 PM FURNACE FIRER 80 mg Given 09/08/2022 8:55 AM FURNACE FIRER 80 mg Given 09/07/2022 8:25 PM FURNACE FIRER 80 mg Given 09/07/2022 3:00 PM FURNACE FIRER 80 mg Given 09/07/2022 9:01 AM FURNACE FIRER 80 mg Given 09/06/2022 8:07 PM FURNACE FIRER 80 mg Given 09/06/2022 3:10 PM FURNACE FIRER 80 mg Given 09/06/2022 10:03 AM FURNACE FIRER 09/14/2022 9:19 AM CDT 80 mg simethicone (MYLICON) chew tablet 80 mg Given 80 mg, Oral, THREE TIMES DAILY, First dose (after last modification) on Sat09/13/22 at 2100, Until Discontinued 80 mg Given 09/13/2022 8:59 PM CDT 09/10/2022 7:01 PM CDT 250 mL 10 mL/hr SODIUM CHLORIDE 0.9 % IV SOLP (Cabinet Given - New Override) Bag NOW, 1 dose, On Sat09/10/22 at 1845, Created by cabinet override, Created by cabinet override 09/11/2022 9:16 PM CDT 100 mg traZODone (DESYREL) tablet 100 mg Given 100 mg, PEG Tube, AT BEDTIME DAILY, First dose (after last modification) on Sat09/06/22 at 2100, Until Discontinued 100 mg Given 09/10/2022 8:36 PM CDT 100 mg Given 09/09/2022 8:37 PM CDT 100 mg Given 09/08/2022 9:42 PM FURNACE FIRER 100 mg Given 09/07/2022 8:24 PM FURNACE FIRER 100 mg Given 09/06/2022 8:06 PM FURNACE FIRER 08/24/2022 10:14 PM FURNACE FIRER 25 mg traZODone (DESYREL) tablet 25 mg Given 25 mg, PEG Tube, AT BEDTIME PRN, Starting on Sat08/24/22 at 1349, Until 08/25/22 at 0011, Insomnia 08/25/2022 12:19 AM FURNACE FIRER 50 mg traZODone (DESYREL) tablet 50 mg Given 50 mg, PEG Tube, AT BEDTIME PRN, Starting on 08/25/22 at 0010, Until 08/25/22 at 1305, Insomnia 09/12/2022 9:31 PM CDT 50 mg traZODone (DESYREL) tablet 50 mg Given 50 mg, PEG Tube, AT BEDTIME DAILY, Firs t dose (after last modification) on Sat09/12/22 at 2100, Until Discontinued 09/13/2022 9:00 PM CDT 50 mg traZODone (DESYREL) tablet 50 mg Given 50 mg, Oral, AT BEDTIME DAILY, First dose (after last modification) on Sat09/13/22 at 2100, Until Discontinued 09/05/2022 8:12 PM FURNACE FIRER 75 mg traZODone (DESYREL) tablet 75 mg Given 75 mg, PEG Tube, AT BEDTIME DAILY, Firs t dose (after last modification) on 08/25/22 at 2100, Until Discontinued 75 mg Given 09/04/2022 8:29 PM FURNACE FIRER 75 mg Given 09/03/2022 8:43 PM FURNACE FIRER 75 mg Given 09/02/2022 9:42 PM FURNACE FIRER 75 mg Given 09/01/2022 9:40 PM FURNACE FIRER 75 mg Given 08/31/2022 8:45 PM FURNACE FIRER 75 mg Given 08/30/2022 9:36 PM FURNACE FIRER 75 mg Given 08/29/2022 8:53 PM FURNACE FIRER 75 mg Given 08/28/2022 9:36 PM FURNACE FIRER 75 mg Given 08/27/2022 9:54 PM FURNACE FIRER 75 mg Given 08/26/2022 10:07 PM FURNACE FIRER 75 mg Given 08/25/2022 9:06 PM FURNACE FIRER vitamin A & D topical ointment Topical, NEEDED, Starting on Sat09/05/22 at 1212, Until Sat09/14/22 at 1728, Other..., Promote skin healing, Apply to skin beneath PEG tube 09/07/2022 12:03 PM FURNACE FIRER 180 mL Water Bolus Given 180 mL, PEG Tube, FIVE TIMES DAILY (ENAR), First dose on Sat08/24/22 at 1500, Until Discontinued, 90 mls before and after each bolus feed 180 mL Given 09/07/2022 6:35 AM FURNACE FIRER 180 mL Given 09/06/2022 9:37 PM FURNACE FIRER 180 mL Given 09/06/2022 5:52 PM FURNACE FIRER 180 mL Given 09/06/2022 3:10 PM FURNACE FIRER 180 mL Given 09/06/2022 11:55 AM FURNACE FIRER 180 mL Given 09/06/2022 6:13 AM FURNACE FIRER 180 mL Given 09/05/2022 9:41 PM FURNACE FIRER 180 mL Given 09/05/2022 6:25 PM FURNACE FIRER 180 mL Given 09/05/2022 11:47 AM FURNACE FIRER 180 mL Given 09/05/2022 6:20 AM FURNACE FIRER 180 mL Given 09/04/2022 10:39 PM FURNACE FIRER 180 mL Given 09/04/2022 6:03 PM FURNACE FIRER 180 mL Given 09/04/2022 12:03 PM FURNACE FIRER 180 mL Given 09/04/2022 6:07 AM FURNACE FIRER 180 mL Given 09/03/2022 9:02 PM FURNACE FIRER 180 mL Given 09/03/2022 6:55 PM FURNACE FIRER 180 mL Given 09/03/2022 2:46 PM FURNACE FIRER 180 mL Given 09/03/2022 11:05 AM FURNACE FIRER 180 mL Given 09/03/2022 6:43 AM FURNACE FIRER 180 mL Given 09/02/2022 9:43 PM FURNACE FIRER 180 mL Given 09/02/2022 6:02 PM FURNACE FIRER 180 mL Given 09/02/2022 3:25 PM FURNACE FIRER 180 mL Given 09/02/2022 12:04 PM FURNACE FIRER 180 mL Given 09/02/2022 5:37 AM FURNACE FIRER 180 mL Given 09/01/2022 10:22 PM FURNACE FIRER 180 mL Given 09/01/2022 6:30 PM FURNACE FIRER 180 mL Given 09/01/2022 3:30 PM FURNACE FIRER 180 mL Given 09/01/2022 12:19 PM FURNACE FIRER 180 mL Given 09/01/2022 5:34 AM FURNACE FIRER 180 mL Given 08/31/2022 9:13 PM FURNACE FIRER 180 mL Given 08/31/2022 6:30 PM FURNACE FIRER 180 mL Given 08/31/2022 3:30 PM FURNACE FIRER 180 mL Given 08/31/2022 12:10 PM FURNACE FIRER 180 mL Given 08/31/2022 7:16 AM FURNACE FIRER 180 mL Given 08/30/2022 10:01 PM FURNACE FIRER 180 mL Given 08/30/2022 7:01 PM FURNACE FIRER 180 mL Given 08/30/2022 4:30 PM FURNACE FIRER 180 mL Given 08/30/2022 1:20 PM FURNACE FIRER 180 mL Given 08/30/2022 6:44 AM FURNACE FIRER 180 mL Given 08/29/2022 9:15 PM FURNACE FIRER 180 mL Given 08/29/2022 5:59 PM FURNACE FIRER 180 mL Given 08/29/2022 3:43 PM FURNACE FIRER 180 mL Given 08/29/2022 12:45 PM FURNACE FIRER 180 mL Given 08/29/2022 6:33 AM FURNACE FIRER 180 mL Given 08/28/2022 9:37 PM FURNACE FIRER 180 mL Given 08/28/2022 5:31 PM FURNACE FIRER 180 mL Given 08/28/2022 3:12 PM FURNACE FIRER 180 mL Given 08/28/2022 11:20 AM FURNACE FIRER 180 mL Given 08/28/2022 6:04 AM FURNACE FIRER 180 mL Given 08/27/2022 9:57 PM FURNACE FIRER 180 mL Given 08/27/2022 6:30 PM FURNACE FIRER 180 mL Given 08/27/2022 3:00 PM FURNACE FIRER 180 mL Given 08/27/2022 12:06 PM FURNACE FIRER 180 mL Given 08/27/2022 6:11 AM FURNACE FIRER 180 mL Given 08/26/2022 10:08 PM FURNACE FIRER 180 mL Given 08/26/2022 6:42 PM FURNACE FIRER 180 mL Given 08/26/2022 3:32 PM FURNACE FIRER 180 mL Given 08/26/2022 12:19 PM FURNACE FIRER 180 mL Given 08/25/2022 10:00 PM FURNACE FIRER 180 mL Given 08/25/2022 6:19 PM FURNACE FIRER 180 mL Given 08/25/2022 3:10 PM FURNACE FIRER 180 mL Given 08/25/2022 12:00 PM FURNACE FIRER 180 mL Given 08/25/2022 6:11 AM FURNACE FIRER 180 mL Given 08/24/2022 10:15 PM FURNACE FIRER 180 mL Given 08/24/2022 5:54 PM FURNACE FIRER 180 mL Given 08/24/2022 3:25 PM FURNACE FIRER 09/10/2022 6:45 AM CDT 200 mL Water Bolus Given 200 mL, PEG Tube, FIVE TIMES DAILY (ENAR), First dose (after last modification) on Sat09/07/22 at 1500, Until Discontinued, 90 mls before and after each bolus feed 200 mL Given 09/09/2022 11:24 PM CDT 200 mL Given 09/09/2022 6:21 PM CDT 200 mL Given 09/09/2022 2:36 PM CDT 200 mL Given 09/09/2022 12:11 PM CDT 200 mL Given 09/09/2022 6:32 AM CDT 200 mL Given 09/08/2022 10:00 PM FURNACE FIRER 200 mL Given 09/08/2022 6:01 PM FURNACE FIRER 200 mL Given 09/08/2022 3:42 PM FURNACE FIRER 200 mL Given 09/08/2022 12:01 PM FURNACE FIRER 200 mL Given 09/08/2022 6:13 AM FURNACE FIRER 200 mL Given 09/07/2022 9:50 PM FURNACE FIRER 200 mL Given 09/07/2022 6:29 PM FURNACE FIRER 200 mL Given 09/07/2022 4:12 PM FURNACE FIRER 09/13/2022 12:09 PM CDT 200 mL Water Bolus Given 200 mL, PEG Tube, FIVE TIMES DAILY (ENAR), First dose (after last modification) on Sat09/10/22 at 1200, Until Discontinued, 100 mls before and after each bolus feed 200 mL Given 09/13/2022 5:50 AM CDT 200 mL Given 09/12/2022 9:56 PM CDT 200 mL Given 09/12/2022 6:01 PM CDT 200 mL Given 09/12/2022 3:00 PM CDT 200 mL Given 09/12/2022 11:55 AM CDT 200 mL Given 09/12/2022 6:32 AM CDT 200 mL Given 09/11/2022 9:44 PM CDT 200 mL Given 09/11/2022 6:50 PM CDT 200 mL Given 09/11/2022 3:26 PM CDT 200 mL Given 09/11/2022 12:02 PM CDT 200 mL Given by Patient/Family 09/11/2022 6:00 AM CDT 200 mL Given 09/10/2022 9:48 PM CDT 200 mL Given 09/10/2022 6:58 PM CDT 200 mL Given 09/10/2022 4:58 PM CDT 200 mL Given 09/10/2022 1:02 PM CDT 09/14/2022 1:10 PM CDT 200 mL Water Bolus Given 200 mL, PEG Tube, FOUR TIMES DAILY (ENAR), First dose (after last modification) on [place] 09/13/22 at 2000, Until Discontinued, 100 mls before and after each bolus feed 200 mL Given 09/14/2022 6:00 AM CDT 200 mL Given 09/13/2022 8:58 PM CDT documented in this encounter Discontinued Medications Start Date End Date Medication Sig Discontinue Reason 08/24/2022 08/24/2022 allopurinoL (ZYLOPRIM) one-half Removed from 100 mg tablet tablet by [employer] Med List PEG Tube route daily. Take with food. 08/24/2022 08/24/2022 amLODIPine (NORVASC) 10 one tablet Removed from mg tablet by PEG Tube [employer] Med List route daily. 08/24/2022 08/24/2022 apixaban (ELIQUIS) 5 mg one tablet Removed from tablet by Per NG [employer]ER Med List tube route twice daily. 08/25/2022 08/24/2022 aspirin 81 mg chewable one tablet Removed from tablet by PEG Tube [employer] Med List route daily. Take with food. 08/24/2022 08/24/2022 atorvastatin (LIPITOR) 80 one tablet Removed from mg tablet by PEG Tube [employer] Med List route daily. 08/24/2022 08/24/2022 carvediloL (COREG) 6.25 one tablet Removed from mg tablet by PEG Tube [employer] Med List route twice daily. Take with food. 08/25/2022 08/24/2022 doxazosin (CARDURA) 1 mg one tablet Removed from tablet by PEG Tube [employer] Med List route daily. 08/24/2022 08/24/2022 levETIRAcetam (KEPPRA) Take one Removed from 500 mg tablet tablet by CHILD [employer]ER Med List mouth twice daily. Administer via PEG Tube. 08/24/2022 08/24/2022 levothyroxine (SYNTHROID) one tablet Removed from 125 mcg tablet by PEG Tube [employer] Med List route daily 30 minutes before breakfast. 08/24/2022 08/24/2022 melatonin 5 mg chew 5 mg by PEG Removed from Tube route [employer] Med List at bedtime daily. 09/13/2022 allopurinoL (ZYLOPRIM) Take one 100 mg tablet tablet by mouth daily. Take with food. 09/13/2022 amLODIPine (NORVASC) 10 Take one mg tablet tablet by mouth daily. 09/13/2022 atorvastatin (LIPITOR) 80 Take one mg tablet tablet by mouth daily. 09/13/2022 levETIRAcetam (KEPPRA) Take one 500 mg tablet tablet by mouth twice daily. 09/13/2022 levothyroxine (SYNTHROID) Take one 125 mcg tablet tablet by mouth daily 30 minutes before breakfast. 09/13/2022 MELATONIN PO Take 5 mg by mouth at bedtime daily. 09/13/2022 aspirin EC 81 mg tablet Take one tablet by mouth daily. Take with food. 09/13/2022 cetirizine (ZYRTEC) 10 mg Take one tablet tablet by mouth every morning. 09/13/2022 CHOLEcalciferoL (vitamin Take five D3) (VITAMIN D3) 1,000 tablets by units tablet mouth daily. 09/13/2022 clopiDOGreL (PLAVIX) 75 Take one mg tablet tablet by mouth daily. 09/13/2022 fish oil- omega 3-DHA/EPA Take one 300/1,000 mg capsule capsule by mouth daily. 09/13/2022 lisinopriL (ZESTRIL) 20 Take one mg tablet tablet by mouth daily. 09/13/2022 MULTIVITAMIN PO Take 1 tablet by mouth daily. 09/14/2022 09/13/2022 amLODIPine (NORVASC) 5 mg one tablet tablet by PEG Tube route daily. 09/14/2022 09/13/2022 aspirin 81 mg chewable one tablet tablet by PEG Tube route daily. Take with food. 09/14/2022 09/13/2022 atorvastatin (LIPITOR) 80 one tablet mg tablet by PEG Tube route daily. 09/13/2022 09/13/2022 levETIRAcetam (KEPPRA) 5 mL by PEG 100 mg/mL oral solution Tube route twice daily. 09/13/2022 09/13/2022 levothyroxine (SYNTHROID) one tablet 125 mcg tablet by PEG Tube route daily 30 minutes before breakfast. 09/13/2022 09/13/2022 apixaban (ELIQUIS) 5 mg one tablet tablet by Per NG tube route twice daily. 09/14/2022 09/13/2022 famotidine (PEPCID) 20 mg one tablet tablet by PEG Tube route daily. 09/13/2022 09/13/2022 melatonin 5 mg tablet one tablet by PEG Tube route at bedtime daily. 09/14/2022 09/13/2022 sertraline (ZOLOFT) 50 mg Take one tablet tablet via feeding tube daily. 09/13/2022 09/13/2022 simethicone (MYLICON) 80 one tablet mg chew tablet by Per G Tube route three times daily. 09/13/2022 09/13/2022 traZODone (DESYREL) 50 mg one tablet tablet by PEG Tube route at bedtime daily. 09/13/2022 09/13/2022 baclofen 5 mg tablet Take one Reorder tablet via feeding tube at bedtime daily. 09/13/2022 09/13/2022 QUEtiapine (SEROQUEL) 25 one-half Reorder mg tablet tablet by Per G Tube route at bedtime as needed. documented as of this encounter Historical Medications * This list may reflect changes made after this encounter. Start Date End Date Medication Sig Dispensed Refills 09/13/2022 MULTIVITAMIN PO Take 1 tablet 0 by mouth daily. 09/13/2022 lisinopriL (ZESTRIL) 20 Take one 0 mg tablet tablet by mouth daily. 09/13/2022 fish oil- omega 3-DHA/EPA Take one 0 300/1,000 mg capsule capsule by mouth daily. 09/13/2022 clopiDOGreL (PLAVIX) 75 Take one 0 mg tablet tablet by mouth daily. 09/13/2022 CHOLEcalciferoL (vitamin Take five 0 D3) (VITAMIN D3) 1,000 tablets by units tablet mouth daily. 09/13/2022 cetirizine (ZYRTEC) 10 mg Take one 0 tablet tablet by mouth every morning. 09/13/2022 aspirin EC 81 mg tablet Take one 0 tablet by mouth daily. Take with food. 09/13/2022 MELATONIN PO Take 5 mg by 0 mouth at bedtime daily. 09/13/2022 levothyroxine (SYNTHROID) Take one 0 125 mcg tablet tablet by mouth daily 30 minutes before breakfast. 09/13/2022 levETIRAcetam (KEPPRA) Take one 0 500 mg tablet tablet by mouth twice daily. 09/13/2022 atorvastatin (LIPITOR) 80 Take one 0 mg tablet tablet by mouth daily. 09/13/2022 amLODIPine (NORVASC) 10 Take one 0 mg tablet tablet by mouth daily. 09/13/2022 allopurinoL (ZYLOPRIM) Take one 0 100 mg tablet tablet by mouth daily. Take with food. added in this encounter Active and Recently Administered Medications Times are shown in CDT. 09/13/2022 09/14/2022 Medication Order 09/12/2022 1016 (Given - Provider: Lamine Augustin RN ) amLODIPine (NORVASC) tablet 5 mg 0836 (Given - (CANCELED) Provider: Lamine mukherjee, PEG Tube, DAILY, First dose (after ROSENDO Augustin) last modification) on 09/08/22 at 0900, Until Discontinued, NURSING: Please educate patient and document: Do not give with grapefruit juice. 0919 (Given - Provider: Zeus Guerrero) amLODIPine (NORVASC) tablet 5 mg 5 mg, Oral, DAILY, First dose (after last modification) on 09/14/22 at 0900, Until Discontinued, NURSING: Please educate patient and document: Do not give with grapefruit juice. 1016 (Given - Provider: Lamine Augustin RN ) apixaban (ELIQUIS) tablet 5 mg 0836 (Given - (CANCELED) Provider: Lamine mukherjee, SEE ADMIN INSTRUCTIONS, HEMANT Augustin RN)2130 DAILY, First dose (after last (Given - Provider: modification) on Sat08/24/22 at 2100, Bubba Brian RN) Until Discontinued, If patient unable t o [...] NOTE: This is a HIGH ALERT Medication. 2100 (Given - Provider: Kathya Nettles LPN ) 918 (Given - Provider: Zeus Guerrero) apixaban (ELIQUIS) tablet 5 mg 5 mg, Oral, TWICE DAILY, First dose (after last modification) on [place] 3 at 2100, Until Discontinued, If patient unable to swallow whole tablets, may crush 5mg or 2.5mg tablets and suspend in 60mL of water, D5W, or apple juice o r mix with applesauce; administer immediately. Administer via PEG tube - For delivery through a gastric tube, crushed tablets maybe suspended in 60mL of water or D5W followed immediately by delivery. NOTE: This is a HIGH ALERT Medication. 1016 (Given - Provider: Lamine Augustin RN ) aspirin chewable tablet 81 mg (CANCELED) 0836 (Given - 81 mg, PEG Tube, DAILY, First dose Provider: Lamine (after last modification) on [facility] 08/25/22 ROSENDO Augustin) at 0900, Until Discontinued 918 (Given - Provider: Zeus Guerrero) aspirin chewable tablet 81 mg 81 mg, Oral, DAILY, First dose (after last modification) on Sat09/14/22 at 0900, Until Discontinued 1016 (Given - Provider: Lamine Augustin RN ) atorvastatin (LIPITOR) tablet 80 mg 0836 (Given - (CANCELED) Provider: Lamine 80 mg, PEG Tube, DAILY, First dose ROSENDO Augustin) (after last modification) on [facility] 3 at 0900, Until Discontinued 918 (Given - Provider: Zeus Guerrero) atorvastatin (LIPITOR) tablet 80 mg 80 mg, Oral, DAILY, First dose (after last modification) on Sat09/14/22 at 0900, Until Discontinued 2058 (Given - Provider: Kathya Nettles LPN ) baclofen (LIORESAL) tablet 5 mg 1 (Given - 5 mg, Oral, AT BEDTIME DAILY, First dose Provider: Blayne gan on Sat09/05/22 at 2100, Until ROSENDO Brian) Discontinued 1430 (Given - Provider: Haley Howard) barium sulfate 40 % (VARIBAR HONEY) ora l suspension 10 mL (COMPLETED) 10 mL, Oral, ONCE, 1 dose, On Sat09/13/22 at 1430, GI Procedure Area Only 1429 (Given - Provider: Haley Howard) barium sulfate 40 % (VARIBAR NECTAR) oral suspension 60 mL (COMPLETED) 60 mL, Oral, ONCE, 1 dose, On Sat09/13/22 at 1430, GI Procedure Area Only 1429 (Given - Provider: Haley Howard) barium sulfate 40 % (VARIBAR PUDDING) oral paste 10 mL (COMPLETED) 10 mL, Oral, ONCE, 1 dose, On Sat09/13/22 at 1430, GI Procedure Area Only 1429 (Given - Provider: Haley Howard) barium sulfate 40 % (VARIBAR THIN LIQUID) oral powder for suspension 60 m L (COMPLETED) 60 mL, Oral, ONCE, 1 dose, On Sat09/13/22 at 1430, Mixing Instructions: 1 . Gently shake the [...] ready for use., GI Procedure Area Only 0550 (Given - Provider: Bubba Brian RN )1209 (Given - Provider: Lamine Augustin RN)1608 (Canceled Entry - Provider: Lamine Augustin RN) Diet Enteral Feeding Bolus (CANCELED) 0632 (Given - FIVE TIMES DAILY (ENAR), First dose Provider: Theodora lynch (after last modification) on Sat09/10/22 ROSENDO Lyman )1155 at 1200, Until Discontinued (Given - Provider: Lamine Augustin RN)1500 (Given - Provider: Lamine Augustin RN)1800 (Given - Provider: Lamine Augustin RN)2156 (Given - Provider: Bubba Brian RN) 2058 (Given - Provider: Kathya Nettles LPN ) 0600 (Given - Provider: Kathya Nettles LPN )1310 (Given - Provider: Hannah Coker RN) Diet Enteral Feeding Bolus(Linked Group 1) FOUR TIMES DAILY (ENAR), First dose (after last modification) on Yumiko 3 at 2000, Until Discontinued 0900 (Canceled Entry - Provider: Lamine foster RN)2100 (Automatically Held) 0900 (Automatically Held)1728 (Unheld by Provider - Provider: Ladarius, Orders Discontinue) docusate sodium (COLACE) oral solution 0900 (Med Not Given 100 mg - Provider: Lamine 100 mg, PEG Tube, TWICE DAILY, First ROSENDO Augustin - Re ason: dose on Sat08/24/22 at 1400, Until Provider Order)21 00 Discontinued, Hold for loose stools, (Automatically Held) Rehab Admission 1016 (Given - Provider: Lamine Augustin RN ) famotidine (PEPCID) tablet 20 mg 0836 (Given - (CANCELED) Provider: Lamine 20 mg, PEG Tube, DAILY, First dose on ROSENDO Augustin) 08/27/22 at 1115, Until Discontinued , Thr PEG tube 0919 (Given - Provider: Zeus Guerrero) famotidine (PEPCID) tablet 20 mg 20 mg, Oral, DAILY, First dose (after last modification) on Sat09/14/22 at 0900, Until Discontinued, Thr PEG tube 1016 (Given - Provider: Lamine Augustin RN ) levETIRAcetam (KEPPRA) oral solution 500 0836 (Given - mg (CANCELED) Provider: Lamine 500 mg, PEG Tube, TWICE DAILY, First ROSENDO Augustin)2131 dose (after last modification) on Sat (Given - Provi liane: 08/24/22 at 2100, Until Discontinued Bubba Brian RN ) 205 (Given - Provider: Kathya Nettles LPN ) 0919 (Given - Provider: Hannah Muskoyo, R N) levETIRAcetam (KEPPRA) tablet 500 mg 500 mg, Oral, TWICE DAILY, First dose o n Yumiko 09/13/22 at 2100, Until Discontinued 06 (Given - Provider: Bubba Brian RN ) levothyroxine (SYNTHROID) tablet 125 mcg 0614 (Given - (CANCELED) Provider: Wasihun 125 mcg, PEG Tube, DAILY, First dose ROSENDO Lyman) (after last modification) on Sat 3 at 0700, Until Discontinued, Give 1 gladis r before a meal. If patient is receiving tube feedings, hold tube feed 1hr befor e and 1hr after dose. 06 (Given - Provider: Kathya Nettles LPN ) levothyroxine (SYNTHROID) tablet 125 mc g 125 mcg, Oral, DAILY, First dose (after last modification) on Sat09/14/22 at 0700, Until Discontinued, Give 1 hour before a meal. If patient is receiving tube feedings, hold tube feed 1hr befor e and 1hr after dose. melatonin tablet 5 mg (CANCELED) 2130 (Given - 5 mg, PEG Tube, AT BEDTIME DAILY, First Provider: Er mias dose (after last modification) on Sat ROSENDO Brian) 08/24/22 at 2100, Until Discontinued 2058 (Given - Provider: Kathya Nettles LPN ) melatonin tablet 5 mg 5 mg, Oral, AT BEDTIME DAILY, First dos e (after last modification) on Yumiko 3 at 2100, Until Discontinued Nutrisource Fiber Supplement Packets 1802 (Given - (CANCELED) Provider: Lamine DAILY, First dose on Sat09/10/22 at ROSENDO Augustin) 1800, Until Discontinued, Allergies on file: Patient has no known allergies. 2110 (Given - Provider: Kathya Nettles LPN ) Nutrisource Fiber Supplement Packets DAILY, First dose (after last modification) on Sat09/13/22 at 2000, Until Discontinued, Allergies on file: Patient has no known allergies. 1209 (Given - Provider: Lamine Augustin RN )1712 (Given - Provider: Lamine Augustin RN)2214 (Given - Provider: Kathya Nettles LPN) potassium chloride oral solution 20 mEq (COMPLETED) 20 mEq, PEG Tube, THREE TIMES DAILY WIT H MEALS, 3 doses, First dose (after last modification) on Sat09/13/22 at 1200, Last dose on Sat09/13/22 at 1800, Give with a meal or dilute solution with 4 o z of water. Give with 1200, 1500, and 180 0 feeding. 2058 (Given - Provider: Kathya Nettles LPN ) QUEtiapine (SEROquel) tablet 12.5 mg 2130 (Given - 12.5 mg, Oral, AT BEDTIME DAILY, First Provider: Jono ias dose (after last modification) on Sat ROSENDO Brian) 09/12/22 at 2100, Until Discontinued 2100 (Automatically Held - Provider: Oh Harkins MD) 172 (Unheld by Provider - Provider: Ladarius, Orders Discontinue) senna (SENOKOT) oral syrup 17.6 mg 2099 (Automatical ly 17.6 mg (10 mL), PEG Tube, AT BEDTIME Held - Provide r: DAILY, First dose on Sat08/24/22 at Esme Harkins MD) 2100, Until Discontinued, Hold for loos e stools, Rehab Admission 1016 (Given - Provider: Lamine Augustin RN ) sertraline (ZOLOFT) tablet 50 mg 0836 (Given - (CANCELED) Provider: Lamine 50 mg, Feeding Tube, DAILY, First dose ROSENDO Augustin) (after last modification) on Sat09/05/22 at 0900, Until Discontinued 0919 (Given - Provider: Zeus Guerrero N) sertraline (ZOLOFT) tablet 50 mg 50 mg, Oral, DAILY, First dose (after last modification) on Sat09/14/22 at 0900, Until Discontinued 1016 (Given - Provider: Lamine Augustin RN )1709 (Canceled Entry - Provider: Lamine Augustin RN) simethicone (MYLICON) chew tablet 80 mg 0836 (Given - (CANCELED) Provider: Lamine 80 mg, Per G Tube, THREE TIMES DAILY, ROSENDO Augustin)150 0 First dose on Sat09/06/22 at 1030, Until (Given - Pro vider: Discontinued Lamine Augustin RN)2135 (Given - Provider: Bubba Brian RN) 2059 (Given - Provider: Kathya Nettles LPN ) 0919 (Given - Provider: Zeus Guerrero)1500 (Due) simethicone (MYLICON) chew tablet 80 mg 80 mg, Oral, THREE TIMES DAILY, First dose (after last modification) on Sat09/13/22 at 2100, Until Discontinued traZODone (DESYREL) tablet 50 mg 2131 (Given - (CANCELED) Provider: Bubba 50 mg, PEG Tube, AT BEDTIME DAILY, First Snehal RN) dose (after last modification) on Sat09/12/22 at 2100, Until Discontinued 2100 (Given - Provider: Kathya Nettles LPN ) traZODone (DESYREL) tablet 50 mg 50 mg, Oral, AT BEDTIME DAILY, First dose (after last modification) on Sat09/13/22 at 2100, Until Discontinued 0550 (Given - Provider: Bubba Brian RN )1209 (Given - Provider: Lamine Augustin RN)1608 (Canceled Entry - Provider: Lamine Augustin RN) Water Bolus (CANCELED) 0632 (Given - 200 mL, PEG Tube, FIVE TIMES DAILY Provider: Maureen (MEDINA), First dose (after last ROSENDO Lyman)1155 modification) on Sat09/10/22 at 1200, (Given - Provi liane: Until Discontinued, 100 mls before and Lamine Augustin, after each bolus feed RN)1500 (Given - Provider: Lamine Augustin RN)1801 (Given - Provider: Lamine Augustin RN)2156 (Given - Provider: Bubba Brian RN) 2058 (Given - Provider: Kathya Nettles LPN ) 0600 (Given - Provider: Kathya Nettles LPN )1310 (Given - Provider: Hannah Coker RN) Water Bolus(Linked Group 1) 200 mL, PEG Tube, FOUR TIMES DAILY (ENAR), First dose (after last modification) on Sat09/13/22 at 2000, Until Discontinued, 100 mls before and after each bolus feed 09/13/2022 09/14/2022 Medication Order 09/12/2022 acetaminophen oral solution 650 mg 650 mg, Oral, EVERY 4 HOURS PRN, Starting on Sat09/13/22 at 1504, Until Sat09/14/22 at 1728, Pain non-opioid: may be used alone or in combination wit h opioid analgesia, Temp > 38.5 C, TOTAL ACETAMINOPHEN DOSE NOT TO EXCEED 4GM DAILY, Rehab Admission bisacodyL (DULCOLAX) rectal suppository 10 mg 10 mg, Rectal, DAILY PRN, Starting on Sat08/24/22 at 1349, Until Sat09/14/22 at 1728, Constipation MO, Do not order suppository for neutropenic and/or thrombocytopenic patients., Rehab Admission emollient (ELTA) topical cream Topical, NEEDED, Starting on Sat08/24/22 at 1349, Until Sat09/14/22 at 1728, Dry Skin, Apply to rash on back pancrelipase 20,880 Units/sodium bicarbonate 650 mg (KU CLOG DESTROYER) Feeding Tube, 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 Crush one pancrelipase [...] physician if tube remains occluded following administration. vitamin A & D topical ointment Topical, NEEDED, Starting on Sat09/05/22 at 1212, Until Sat09/14/22 at 1728, Other..., Promote skin healing, Apply to skin beneath PEG tube Order Group 1: Diet Enteral Feeding BolusJump to med FOUR TIMES DAILY (ENAR), First dose (af ter last modification) on Yumiko 09/13/22 at 2000, Until Discontinued And Water BolusJump to med 200 mL, PEG Tube, FOUR TIMES DAILY (SONIYA R), First dose (after last modification) on Yumiko 09/13/22 at 2000, Until Discontinued
100 mls bef ore and after each bolus feed
documented in this encounter Orders First Ordered Date Medications Ordered That Might Not Have Count Last Ordered Date Been Administered acetaminophen oral solution 650 mg 1 levETIRAcetam (KEPPRA) oral solution 500 1 09/13/2022 mg potassium chloride oral solution 20 mEq 1 09/13/2022 potassium chloride oral solution 60 mEq 1 09/13/2022 08/26/2022 QUEtiapine (SEROquel) tablet 12.5 mg 2 0 09/12/2022 vitamin A & D topical ointment 1 023 magnesium sulfate 1 g/D5W 100 mL IVPB 1 09/04/2022 lactulose (GENERLAC) oral solution 10 g 1 08/27/2022 QUEtiapine (SEROquel) tablet 25 mg 1 aluminum/magnesium hydroxide (MAALOX) 1 08/24/2022 oral suspension 30 mL bisacodyL (DULCOLAX) rectal suppository 1 08/24/2022 10 mg Diet Enteral Feeding Standard Infusion 1 08/24/2022 emollient (ELTA) topical cream 1 023 ondansetron (ZOFRAN ODT) rapid dissolve 1 08/24/2022 tablet 4 mg pancrelipase 20,880 Units/sodium 1 08/24 bicarbonate 650 mg (KU CLOG DESTROYER) sodium chloride PF 0.9% flush 3 mL 1 First Ordered Date Diet Count Last Ordered Date DISCHARGE DIET DYSPHAGIA 1 09/14/2022 DISCHARGE DIET ENTERAL FEEDING 1 023 First Ordered Date Nursing Count Last Ordered Date DISCHARGE ACTIVITY DRIVING 1 09/14/2022 DISCHARGE CONTACT 1 09/14/2022 DISCHARGE GASTRO/JEJUNAL TUBE CARE 1 DISCHARGE SIGNS/SYMPTOMS 1 09/14/2022 STROKE EDUCATION 1 09/14/2022 NURSE COMMUNICATION 1 08/30/2022 First Ordered Date Consult Count Last Ordered Date 08/24/2022 CONSULT DIETITIAN 3 09/10/2022 CONSULT WOUND/OSTOMY TEAM NURSE 1 2022 CONSULT INTERNAL MEDICINE PHYSICIAN 1 CONSULT NEUROREHABILITATION PSYCHOLOGY 1 08/24/2022 First Ordered Date OT Count Last Ordered Date OT CONSULT OCCUPATIONAL THERAPY 1 2022 First Ordered Date PT Count Last Ordered Date PT CONSULT PHYSICAL THERAPY 1 08/24/2022 First Ordered Date DEPUTY HEAD Count Last Ordered Date CONSULT DEPUTY HEAD VIDEOSWALLOW EVAL & TX 1 DEPUTY HEAD CONSULT CLINICAL BEDSIDE SWALLOW 1 0 08/24/2022 EVAL & TX DEPUTY HEAD CONSULT SPEECH-LANGUAGE EVAL & TX 1 08/24/2022 First Ordered Date Admission Count Last Ordered Date ADMIT TO REHAB (NO BED REQUEST) 1 2022 First Ordered Date Discharge Count Last Ordered Date DISCHARGE PATIENT NOW 1 09/14/2022 First Ordered Date Vital Signs Count Last Ordered Date VITAL SIGNS 1 09/10/2022 First Ordered Date Activity Count Last Ordered Date ACTIVITY (ED & REHAB ONLY) 1 08/24/2022 First Ordered Date Order Set Communication Count Last Ordered D ate VTE DRUG PROPHYLAXIS CONTRAINDICATED- 1 08/24/2022 ADMIT First Ordered Date Appointment Request Count Last Ordered Date APPOINTMENT REQUEST: UROLOGY 1 3 APPOINTMENT REQUEST: NEUROLOGY 1 023 APPOINTMENT REQUEST: PHYSICAL MEDICINE 1 09/03/2022 AND REHAB (PMR) First Ordered Date Place & Maintain Count Last Ordered Date PLACE AND MAINTAIN SCD 1 08/24/2022 First Ordered Date DME/Home Health Count Last Ordered Date HOME HEALTH/DME 2 09/13/2022 documented in this encounter Additional Health Concerns Noted Time Assessment 09/14/2022 9:00 AM CDT A fall risk assessment has been complet ed for the patient documented as of this encounter Care Teams Start Date End Date [employer] Director Relationship Specialty 08/09/22 08/26/22 No Pcp, Na PCP - General 08/27/22 09/04/22 Nelson Calderon MD PCP - General Pulmonary 2000 Count Includes [facility] Disease Ortho/Med Pavilion [address]vl [address] [place] [address] 09/05/22 Coni Nguyen NP PCP - General Nurse [address] [place] [address] [place] [address] documented as of this encounter
--- OUTSIDE RECORDS SUMMARY | 2022-09-15 15:11 | XMS REPORT | Encounter Summary ---
Author Author [facility] Organization [facility] Address Unknown Phone Unavailable Care Team Providers Care Pelt Shearer Name Role Phone No Pcp, Na PCP Unavailable Nelson Calderon MD PCP Coni Nguyen NP PCP Encounter Details Care Team Description Date Type Department 08/20/2022 Documentation Interventional Radi ology: [facility] [place] [address] [facility] [address], [id number] [place] [address] Social History Date Tobacco Use Types Packs/Day Years Used Smoking Tobacco: Former Cigarettes Smokeless Tobacco: Never Comments Alcohol Use Standard Drinks/Week Not Currently 0 (1 standard drink = 0.6 o z pure alcohol) Sex Assigned at Date Recorded Not on file Date Recorded COVID-19 Exposure Response 08/10/2022 11:53 AM CONFIGURATION TECHNICIAN In the last 10 days, have you been in contact with N o / Unsure someone who was confirmed or suspected to have Coronavirus/COVID-19? documented as of this encounter Functional Status Date of Assessment Functional Status Response 08/10/2022 Does the patient have a hearing impairment: Yes documented as of this encounter Plan of Treatment Not on filedocumented as of this encounter Goals Goal Patient Associated Recent Progress Patient-Stat Aut hor Goal Type Problems ed? Remain independent Hospital Not on track No Licha, (08/10/2022 11:58 AM ROSENDO Guillen CONFIGURATION TECHNICIAN) documented as of this encounter Procedures Comments Procedure Name Priority Date/Time Associated Diag nosis TELEMETRY STRIPS-SCAN 08/20/2022 12:00 AM CONFIGURATION TECHNICIAN documented in this encounter Results * TELEMETRY STRIPS-SCAN (08/20/2022 12:00 AM CONFIGURATION TECHNICIAN) Narrative 08/20/2022 12:00 AM CONFIGURATION TECHNICIAN Ordered by an unspecified provider. Scanned Document PROCEDURE DUMMY ORDERS documented in this encounter Visit Diagnoses Not on filedocumented in this encounter Additional Health Concerns Noted Time Assessment 08/20/2022 9:29 PM CONFIGURATION TECHNICIAN A fall risk assessment has been complet ed for the patient documented as of this encounter Care Teams Start Date End Date Pelt Shearer Relationship Specialty 08/09/22 08/26/22 No Pcp, Na PCP - General 08/27/22 09/04/22 Nelson Calderon MD PCP - General Pulmonary [address] [place] [address] Disease Ortho/Med Pavilion [address] [place], [place] [phone] 09/05/22 Coni Nguyen NP PCP - General Nurse [address] [place] [address] Practitioner [place], [place] [id number] documented as of this encounter
--- OUTSIDE RECORDS SUMMARY | 2022-09-15 15:11 | XMS REPORT | Encounter Summary ---
Author Author [facility] Organization [facility] Address Unknown Phone Unavailable Care Team Providers Care Recovery Rn Name Role Phone No Pcp, Na PCP Unavailable Nelson Calderon MD PCP Coni Nguyen NP PCP Encounter Details Care Team Description Date Type Department 08/20/2022 Documentation Interventional Radi ology: [facility] [place] [address] [facility] [address], [id number] [place] [address] Social History Date Tobacco Use Types Packs/Day Years Used Smoking Tobacco: Former Cigarettes Smokeless Tobacco: Never Comments Alcohol Use Standard Drinks/Week Not Currently 0 (1 standard drink = 0.6 o z pure alcohol) Sex Assigned at Date Recorded Not on file Date Recorded COVID-19 Exposure Response 08/10/2022 11:53 AM CORPORATE SALES TRAINER In the last 10 days, have you [...] No Licha, (08/10/2022 11:58 AM ROSENDO Guillen CORPORATE SALES TRAINER) documented as of this encounter Procedures Comments Procedure Name Priority Date/Time Associated Diag nosis TELEMETRY STRIPS-SCAN 08/20/2022 12:00 AM CORPORATE SALES TRAINER documented in this encounter Results * TELEMETRY STRIPS-SCAN (08/20/2022 12:00 AM CORPORATE SALES TRAINER) Narrative 08/20/2022 12:00 AM CORPORATE SALES TRAINER Ordered by an unspecified provider. Scanned Document PROCEDURE DUMMY ORDERS documented in this encounter Visit Diagnoses Not on filedocumented in this encounter Additional Health Concerns Noted Time Assessment 08/20/2022 9:29 PM CORPORATE SALES TRAINER A fall risk assessment has been complet ed for the patient documented as of this encounter Care Teams Start Date End Date Recovery Rn Relationship Specialty 08/09/22 08/26/22 No Pcp, Na PCP - General 08/27/22 09/04/22 Nelson Calderon MD PCP - General Pulmonary [address] [place] [address] Disease Ortho/Med Pavilion [address] [place], [place] [phone] 09/05/22 Coni Nguyen NP PCP - General Nurse [address] [place] [address] Practitioner [place], [place] [phone] documented as of this encounter
--- OUTSIDE RECORDS SUMMARY | 2022-09-15 15:11 | XMS REPORT | Encounter Summary ---
Author Author [facility] Organization [facility] Address Unknown Phone Unavailable Care Team Providers Care Vehicle Operator Technician Name Role Phone No Pcp, Na PCP Unavailable Nelson Calderon MD PCP Coni Nguyen NP PCP Encounter Details Care Team Description Date Type Department 08/20/2022 Documentation Interventional Radi ology: [facility] [address] [facility] [address], [id number] [place] [address] Social History Date Tobacco Use Types Packs/Day Years Used Smoking Tobacco: Former Cigarettes Smokeless Tobacco: Never Comments Alcohol Use Standard Drinks/Week Not Currently 0 (1 standard drink = 0.6 o z pure alcohol) Sex Assigned at Date Recorded Not on file Date Recorded COVID-19 Exposure Response 08/10/2022 11:53 AM INDUSTRIAL CHEMISTRY TEACHER In the last 10 days, have you [...] No Licha, (08/10/2022 11:58 AM ROSENDO Guillen INDUSTRIAL CHEMISTRY TEACHER) documented as of this encounter Procedures Comments Procedure Name Priority Date/Time Associated Diag nosis TELEMETRY STRIPS-SCAN 08/20/2022 12:00 AM INDUSTRIAL CHEMISTRY TEACHER documented in this encounter Results * TELEMETRY STRIPS-SCAN (08/20/2022 12:00 AM INDUSTRIAL CHEMISTRY TEACHER) Narrative 08/20/2022 12:00 AM INDUSTRIAL CHEMISTRY TEACHER Ordered by an unspecified provider. Scanned Document PROCEDURE DUMMY ORDERS documented in this encounter Visit Diagnoses Not on filedocumented in this encounter Additional Health Concerns Noted Time Assessment 08/20/2022 9:29 PM INDUSTRIAL CHEMISTRY TEACHER A fall risk assessment has been complet ed for the patient documented as of this encounter Care Teams Start Date End Date Vehicle Operator Technician Relationship Specialty 08/09/22 08/26/22 No Pcp, Na PCP - General 08/27/22 09/04/22 Nelson Calderon MD PCP - General Pulmonary [address] [place] [address] Disease Ortho/Med Pavilion Lvl [address] [place], [place] [phone] 09/05/22 Coni Nguyen NP PCP - General Nurse [address] [place] [address] Practitioner [place], [place] [id number] documented as of this encounter
--- OUTSIDE RECORDS SUMMARY | 2022-09-15 15:11 | XMS REPORT | Encounter Summary ---
Author Author [facility] Organization [facility] Address Unknown Phone Unavailable Care Team Providers Care Bulldozer Engineer Name Role Phone No Pcp, Na PCP Unavailable Reason for Visit * Auth/Cert (Routine) Diagnoses / Procedures Referred By Contact Referred To Conta ct Specialty Diagnoses Acute ischemic left MCA stroke (HCC) Stroke Referral ID Status Reason Start Date Expiration Visits Vi sits Date Requested Authorized [id number] 1 1 Encounter Details Care Team Description Date Type Department Janes Loaiza MD [address] [place] [address] Nena Alfred CRNA [address] [place] [address] 08/20/2022 Anesthesia [facility] [address] [facility] Level 2, [id number] [place] [address] Anesthesia Record Responsible Anesthesiologist Anesthesia Start Time Anesthesi a Stop Time Procedure Name Janes Loaiza MD 08/20/22 1535 08/20/22 1613 IR GASTROSTOMY TUBE PLACEMENT Date Time Event Comment 1346 1518 AN Equip Check 1534 Out of Pre Procedure 1535 Anes Start 1536 In Room 1536 An Start Data 1541 Start Supplemental O2 1543 Anesthesia Ready 1556 Proc Start 1612 an stop data 1613 An Stop I completed my SBAR handoff to the receiving nurse. Meds Name Total fentaNYL PF (SUBLIMAZE) injection 25 mcg lidocaine PF 2% 100mg/5mL vial 80 mg propofol (DIPRIVAN) 200 mg/ 20 mL 70 mg injection (VIAL) glucagon inj 1 mg sodium chloride 0.9% (1000mL) 200 mL * Name O2 N2O Inspired N2O * No blood administrations on file. Removal Type Details Placement ETT 08/09/22; 1623; Ventilated by mask (1); 08/09/22 1623 by Jg Video laryngoscopy; Single-Lumen, Denny, DO Uncuffed; ETT Size: 7mm; GlideScope; Blade Size: 3; Oral; 1-Full view of the glottis (Mass noted in left hypopharynx); 1 insertion attempt; Vol of Air in Cuff: 8 mL; Taped at Gums: 23 centimeters; Atraumatic Gastrostom 08/20/22; 1600; Abdomen, Left Upper 1600 by Cameron y Tube Medial; 18FR (Kangaroo Gtube with 20 ml ROSENDO Macedo in balloon) 08/20/22 1610 by Hellen Barnes RN Small Bore 08/09/22; 2200; Nose; Post-pyloric; 2200 by Sue Feeding Cortrak; Nursing; X-ray; 79 cm; 1; 1; ROSENDO House Tube Air bolus; 08/20/22; 1610 08/21/22 1507 by Shayy Jean RN Indwelling 08/13/22; 1423; Unit (Comment); 16 FR; 08/13/22 1423 by Miranda Urinary Regular (Two-way); 08/21/22; 1507 Parminder daniel RN Catheter 08/24/22 1437 by Linda Del Rosario RN Peripheral 08/15/22; 1450; RN; R; Wrist; 22 G; No; 08/15/22 1450 by Alli, IV 1; 08/24/22; 1437 ROSENDO Mohamud documented in this encounter Social History Date Tobacco Use Types Packs/Day Years Used Smoking Tobacco: Former Cigarettes Smokeless Tobacco: Never Comments Alcohol Use Standard Drinks/Week Not Currently 0 (1 standard drink = 0.6 o z pure alcohol) Sex Assigned at Date Recorded Not on file Date Recorded COVID-19 Exposure Response 08/10/2022 11:53 AM RATE AND COST ANALYST In the last 10 days, have you been in contact with N o / Unsure someone who was confirmed or suspected to have Coronavirus/COVID-19? documented as of this encounter Functional Status Date of Assessment Functional Status Response 08/10/2022 Does the patient have a hearing impairment: Yes documented as of this encounter OR Notes * Anesthesia Postprocedure Evaluation - Karen Baker MD - 08/20/2022 6:11 PM CST Post-Anesthesia Evaluation Name: Derek Castro Jr. : 1945 Age: 77 y.o. Sex: male Procedure Information Anesthesia Start Date/Time: 08/20/22 1535 Scheduled providers: Hellen Barnes RN; Bryon Cabral RT(R)(),LRT; Lai Allen MD Procedure: IR GASTROSTOMY TUBE PLACEMENT Location: Interventional Radiology: [facility] Post-Anesthesia Vitals BP: 142/86 (08/20 174) Pulse: 77 (08/20 174) Respirations: 14 PER MINUTE (08/20 1744) SpO2: 93 % (08/20 1744) SpO2 Pulse: 77 (08/20 174) O2 Device: None (Room air) (08/20 1744) Vitals Value Taken Time BP 142/86 08/20/22 1745 Temp 36.7 C (98 F) 08/20/22 1617 Pulse 77 08/20/22 1745 Respirations 14 PER MINUTE 08/20/22 174 SpO2 93 % 08/20/22 1745 O2 Device None (Room air) 08/20/22 174 ABP ART BP Post Anesthesia Evaluation Note Evaluation location: Pre/Post Patient participation: recovered; patient participated in evaluation Level of consciousness: alert Pain management: adequate Hydration: normovolemia Temperature: 36.0C - 38.4C Airway patency: adequate Perioperative Events Post-op nausea and vomiting: no PONV Postoperative Status Cardiovascular status: hemodynamically stable Respiratory status: spontaneous ventilation Perioperative Events There were no known notable events for this encounter. AND COST ANALYST * Anesthesia Preprocedure Evaluation - Janes Loaiza MD - 08/20/2022 1:44 PM CST Anesthesia Pre-Procedure Evaluation Name: Derek Castro Jr. : 1945 Age: 77 y.o. Sex: male Procedure Info: Procedure Information Date/Time: 08/20/22 1515 Scheduled providers: Hellen Barnes RN; Bryon Cabral RT(R)(),LRT; Lai Allen MD; Janes Loaiza MD Procedure: IR GASTROSTOMY TUBE PLACEMENT Location: Interventional Radiology: [facility] Physical Assessment Vital Signs (last filed in past 24 hours): BP: 108/65 (08/20 1106) Temp: 36.4 C (97.5 F) (08/20 110) Pulse: 72 (08/20 110) Respirations: 18 PER MINUTE (08/20 110) SpO2: 94 % (08/20 1105) O2 Device: None (Room air) (08/20 1105) Patient History No Known Allergies Current Medications Medication Directions allopurinoL (ZYLOPRIM) 100 mg tablet Take 50 mg by mouth daily. Take with food. amLODIPine (NORVASC) 10 mg tablet Take 10 mg by mouth daily. aspirin EC 81 mg tablet Take 81 mg by mouth daily. Take with food. atorvastatin (LIPITOR) 80 mg tablet Take 80 mg by mouth daily. cetirizine (ZYRTEC) 10 mg tablet Take 10 mg by mouth daily. CHOLEcalciferoL (vitamin D3) (VITAMIN D3) 5000 unit tablet Take 5,000 Units by m outh daily. clopiDOGreL (PLAVIX) 75 mg tablet Take 75 mg by mouth daily. fish oil- omega 3-DHA/EPA 300/1,000 mg capsule Take 1 capsule by mouth daily. levETIRAcetam (KEPPRA) 500 mg tablet Take 500 mg by mouth twice daily. levothyroxine (SYNTHROID) 125 mcg tablet Take 125 mcg by mouth daily 30 minutes before breakfast. lisinopriL (ZESTRIL) 20 mg tablet Take 20 mg by mouth daily. melatonin 5 mg chew Chew 5 mg by mouth at bedtime daily. multivitamin (ONE-A-DAY) tablet Take 1 tablet by mouth daily. 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 Other strokes , and earlier )), residual symptoms Endocrine/Other Hypothyroidism Physical Exam Airway Findings Mallampati: unable to assess Cardiovascular Findings: Rhythm: regular Rate: normal Pulmonary Findings: Breath sounds clear to auscultation. Neurological Findings: Altered mental status Constitutional findings: No acute distress Diagnostic Tests Hematology: Lab Results Component Value Date HGB 14.3 08/20/2022 HCT 42.5 08/20/2022 PLTCT 295 08/20/2022 WBC 9.4 08/20/2022 NEUT 71 08/14/2022 ANC 6.61 08/14/2022 ALC 0.97 08/14/2022 NEL 12 08/14/2022 AMC 1.13 08/14/2022 EOSA 6 08/14/2022 ABC 0.04 08/14/2022 MCV 90.7 08/20/2022 MCH 30.6 08/20/2022 MCHC 33.7 08/20/2022 MPV 9.6 08/20/2022 RDW 14.1 08/20/2022 General Chemistry: Lab Results Component Value Date NA 141 08/20/2022 K 4.3 08/20/2022 CL 104 08/20/2022 CO2 27 08/20/2022 GAP 10 08/20/2022 BUN 35 08/20/2022 CR 1.63 08/20/2022 GLU 122 08/20/2022 CA 9.2 08/20/2022 ALBUMIN 3.7 08/09/2022 LACTIC 1.2 08/10/2022 OBSCA 1.20 08/13/2022 MG 2.0 08/13/2022 TOTBILI 0.7 08/09/2022 PO4 2.9 08/13/2022 Coagulation: No results found for: PT, PTT, INR Anesthesia Plan ASA score: 4 Plan: MAC Induction method: intravenous NPO status: acceptable Informed Consent Anesthetic plan and risks discussed with spouse. Plan discussed with: anesthesiologist and SECOND VP HR ASSESSMENT. AND COST ANALYST documented in this encounter Plan of Treatment Not on filedocumented as of this encounter Goals Goal Patient Associated Recent Progress Patient-Stat Aut hor Goal Type Problems ed? Remain independent Hospital Not on track Maki Hurt (08/10/2022 11:58 AM ROSENDO Guillen RATE AND COST ANALYST) documented as of this encounter Visit Diagnoses Not on filedocumented in this encounter Administered Medications Action Date Dose Rate Site Medication Order MAR Action 08/20/2022 3:41 PM RATE AND COST ANALYST 25 mcg fentaNYL citrate PF (SUBLIMAZE) Given injection Intravenous, INTRA-PROCEDURE MED, Starting on Sat08/20/22 at 1541, Until Sat08/20/22 at 1613, Anesthesia Intra-o p 08/20/2022 3:55 PM RATE AND COST ANALYST 1 mg glucagon (human recombinant) injection Given Intravenous, INTRA-PROCEDURE MED, Starting on Sat08/20/22 at 1555, Until Sat08/20/22 at 1613, Anesthesia Intra-o p 08/20/2022 3:42 PM RATE AND COST ANALYST 80 mg lidocaine PF 20 mg/mL (2 %) injection Given Intravenous, INTRA-PROCEDURE MED, Starting on Sat08/20/22 at 1542, Until Sat08/20/22 at 1613, Anesthesia Intra-o p 08/20/2022 4:03 PM RATE AND COST ANALYST 10 mg propofol (DIPRIVAN) injection Given Intravenous, INTRA-PROCEDURE MED, Starting on Sat08/20/22 at 1543, Until Sat08/20/22 at 1613, Anesthesia Intra-o p 10 mg Given 08/20/2022 3:53 PM RATE AND COST ANALYST 20 mg Given 08/20/2022 3:45 PM RATE AND COST ANALYST 30 mg Given 08/20/2022 3:43 PM RATE AND COST ANALYST 08/20/2022 3:35 PM RATE AND COST ANALYST sodium chloride 0.9 % infusion Given - New Intravenous, INTRA-PROCEDURE MED(CONT), Bag Starting on Sat08/20/22 at 1535, Until Sat08/20/22 at 1613, Anesthesia Intra-o p documented in this encounter Additional Health Concerns Noted Time Assessment 08/20/2022 9:29 PM RATE AND COST ANALYST A fall risk assessment has been complet ed for the patient documented as of this encounter Care Teams Start Date End Date Bulldozer Engineer Relationship Specialty 08/09/22 08/26/22 No Pcp, Na PCP - General documented as of this encounter
--- OUTSIDE RECORDS SUMMARY | 2022-09-15 15:11 | XMS REPORT | Encounter Summary ---
Author Author [facility] Organization [facility] Address Unknown Phone Unavailable Care Team Providers Care Field Service Manager Name Role Phone No Pcp, Na PCP Unavailable Reason for Visit * Auth/Cert (Routine) Diagnoses / Procedures Referred By Contact Referred To Conta ct Specialty Diagnoses Acute ischemic left MCA stroke (HCC) Stroke Referral ID Status Reason Start Date Expiration Visits Vi sits Date Requested Authorized [id number] 1 1 Encounter Details Care Team Description Date Type Department Robin Little MD [id number] [place] [address] Denny Gregorio DO [address] [place] [address] 08/09/2022 Anesthesia Interventional Rad[facility]logy: [facility] [address] [facility] [address] 2 [place] [phone] Anesthesia Record Responsible Anesthesiologist Anesthesia Start Time Anesthesi a Stop Time Procedure Name Robin Little MD 08/09/22 1610 08/09/22 1715 IR ARTERIOGRAM NEURO Date Time Event Comment 1529 AN Equip Check 2022 161 Anes Start 1610 An Start Data 1611 In Room 1621 An Induction The patient was ree valuated immediately before moderate or deep sedation use and before anesthesia induction. 1623 An Intubation 1626 Anesthesia Ready 1627 Proc Start 1627 Quick Note PUNCTURE AT 16:27 1643 Quick Note Interventionalist r equests systolic BP >160 1651 Quick Note Following intervent ion, interventionalist requests systolic BP <150 1704 an stop data 1715 An Stop I completed my SBAR handoff to the receiving nurse. 1757 Meds Name Total lidocaine (2%) 200 mg/10mL Injection 100 mg syringe propofol (DIPRIVAN) 200 mg/ 20 mL 150 mg injection (VIAL) rocuronium (ZEMURON) injection 50 mg sugammadex (BRIDION) 100 mg/mL iv soln 200 mg artificial tears (dextran 2 drop 70/hypromellose) ophthalmic drops phenylephrine (RENATA-SYNEPHRINE) 10 mg in 0.22 mg sodium chloride 0.9% (NS) 250 mL IV dri p (std conc) sodium chloride 0.9% (1000mL) 800 mL * Name O2 N2O Inspired Sevoflurane Inspired Sevoflurane * No blood administrations on file. Removal Type Details Placement ETT 08/09/22; 162; Ventilated by mask (1); 08/09/22 162 by Jg, Video laryngoscopy; Single-Lumen, Denny, DO Uncuffed; ETT Size: 7mm; GlideScope; Blade Size: 3; Oral; 1-Full view of the glottis (Mass noted in left hypopharynx); 1 insertion attempt; Vol of Air in Cuff: 8 mL; Taped at Gums: 23 centimeters; Atraumatic 08/09/22 1652 by Loreta Stevens BSN Arterial 08/09/22; 1628; Femoral, Right; 8 FR; 08/09/22 1628 by Sheath (monitored by physician throughout Loreta Lubin BSN procedure); Correct Patient, Correct Patient Position, Correct Procedure, Correct Equipment / Implants Available, Marking Waived, Not Side Specific; 08/09/22; 1652; Y 08/12/22 0138 by Cheikh Taylor, ROSENDO Puncture 08/09/22; 1630; Right; Femoral; 1630 by Wound 08/12/22; 0138 Loreta Stevens BSN (Sheath) 08/10/22 0001 by Lacy Rogers RN Peripheral 08/09/22; 1711; PreHospital Outside 1711 by DONA Guaman Facility; L; Hand; 20 G; 08/10/22; 0001 ROSENDO Barker 08/10/22 1100 by Wilmer Hurt RN Indwelling 08/09/22; 1712; Present on Admission; 1 6 08/09/22 1712 by Zan Guaman FR; Regular (Two-way); 08/10/22; 1100 ROSENDO Barker Catheter documented in this encounter Social History Date Tobacco Use Types Packs/Day Years Used Smoking Tobacco: Never Assessed Sex Assigned at Date Recorded Not on file Date Recorded COVID-19 Exposure Response 08/10/2022 11:53 AM TIMBER RIDER In the last 10 days, have you been in contact with N o / Unsure someone who was confirmed or suspected to have Coronavirus/COVID-19? documented as of this encounter OR Notes * Anesthesia Postprocedure Evaluation - JgDenny DO - 08/09/2022 5:16 PM TIMBER RIDER Post-Anesthesia Evaluation Name: Derek Castro Jr. : 1945 Age: 77 y.o. Sex: male Procedure Information Anesthesia Start Date/Time: 08/09/22 1610 Scheduled providers: Robin Little MD; Loreta Stevens BSN; Tong Arredondo er, RT(R)(),LRT Procedure: IR ARTERIOGRAM NEURO Location: Interventional Radiology: [facility] Post-Anesthesia Vitals BP: 165/103 (08/09 1709) Pulse: 91 (08/09 1709) Respirations: 14 PER MINUTE (08/09 1709) SpO2: 95 % (08/09 1709) Vitals Value Taken Time BP 158/102 08/09/22 1710 Temp Pulse 91 08/09/220 Respirations 14 PER MINUTE 08/09/22 171 SpO2 95 % 08/09/220 O2 Device ABP ART BP Post Anesthesia Evaluation Note Evaluation location: ICU Patient participation: patient intubated, unable to assess; expectation of recov adrianna by ICU physician Level of consciousness: intubated & sedated Ventilator settings Mode: other and VC FIO2: 50 Tidal Volume: 500 Vent rate: 12 PEEP: 4 Hydration: normovolemia Temperature: 36.0C - 38.4C Airway patency: adequate Perioperative Events Post-op nausea and vomiting: no PONV Postoperative Status Cardiovascular status: hemodynamically stable Respiratory status: supplemental oxygen Additional comments: Patient reversed with sugammadex in ICU. Handoff given to R Sommer, all questions answered. ICU Information Staff involved in transport include: anes resident, resp therapy and OR nurse Perioperative Events No notable events documented. ER RIDER * Anesthesia Preprocedure Evaluation - Robin Little MD - 08/09/2022 4:57 PM CST Anesthesia Pre-Procedure Evaluation Name: Derek Castro Jr. : 1945 Age: 77 y.o. Sex: male Procedure Info: Procedure Information Anesthesia Start Date/Time: 08/09/22 1610 Scheduled providers: Robin Little MD; Loreta Stevens BSN; Tong Arredondo er, RT(R)(),LRT Procedure: IR ARTERIOGRAM NEURO Location: Interventional Radiology: [facility] Physical Assessment Vital Signs (last filed in past 24 hours): Patient History No Known Allergies Current Medications Not on File Review of Systems/Medical History PONV Screening: Non-smoker Pulmonary Cardiovascular Hypertension, Neuro/Psych Seizures PHYSICAL EXAM Diagnostic Tests Hematology: No results found for: HGB, HCT, PLTCT, WBC, NEUT, ANC, LYMPH, ALC, A BSLYMPHCT, NEL, AMC, EOSA, ABC, BASOPHILS, MCV, MCH, MCHC, MPV, RDW General Chemistry: No results found for: NA, K, CL, CO2, GAP, BUN, CR, GLU, CA, KETONES, ALBUMIN, LACTIC, OBSCA, MG, TOTBILI, TOTBILCB, PO4 Coagulation: No results found for: PT, PTT, INR Anesthesia Plan ASA score: 4 emergent Plan: general ER RIDER documented in this encounter Plan of Treatment Not on filedocumented as of this encounter Goals Goal Patient Associated Recent Progress Patient-Stat Aut hor Goal Type Problems ed? Remain independent Hospital Not on track No Licha, (08/10/2022 11:58 AM ROSENDO Guillen TIMBER RIDER) documented as of this encounter Visit Diagnoses Not on filedocumented in this encounter Administered Medications Action Date Dose Rate Site Medication Order MAR Action 08/09/2022 4:23 PM TIMBER RIDER 2 drops artificial tears (PF) single dose Given ophthalmic solution Both Eyes, INTRA-PROCEDURE MED, Startin g on Yumiko 08/09/22 at 1623, Until Yumiko 08/09/22 at 1719, Anesthesia Intra-op 08/09/2022 4:21 PM TIMBER RIDER 100 mg lidocaine (PF) injection Given Intravenous, INTRA-PROCEDURE MED, Starting on Yumiko 08/09/22 at 1621, Until Yumiko 08/09/22 at 1719, Anesthesia Intra-op 08/09/2022 4:42 PM TIMBER RIDER 0.3 mcg/kg/min 36 mL/hr phenylephrine (RENATA-SYNEPHRINE) 10 mg in Given - New sodium chloride 0.9% (NS) 250 mL IV drip Bag (std conc) 250 mL, Intravenous, INTRA-PROCEDURE MED(CONT), Starting on Yumiko 08/09/22 at 1642, Until Yumiko 08/09/22 at 1719, Anesthesia Intra-op 08/09/2022 5:15 PM TIMBER RIDER 30 mg propofol (DIPRIVAN) injection Given Intravenous, INTRA-PROCEDURE MED, Starting on Yumiko 08/09/22 at 1621, Until Yumiko 08/09/22 at 1719, Anesthesia Intra-op 30 mg Given 08/09/2022 5:05 PM TIMBER RIDER 90 mg Given 08/09/2022 4:21 PM TIMBER RIDER 08/09/2022 4:21 PM TIMBER RIDER 50 mg rocuronium injection Given Intravenous, INTRA-PROCEDURE MED, Starting on Yumiko 08/09/22 at 1621, Until Yumiko 08/09/22 at 1719, Anesthesia Intra-op 08/09/2022 5:15 PM TIMBER RIDER sodium chloride 0.9 % infusion Infusion Intravenous, INTRA-PROCEDURE MED(CONT), Restarted Starting on Yumiko 08/09/22 at 1611, Until Yumiko 08/09/22 at 1719, Anesthesia Intra-op 20 mL/hr Given - New Bag 08/09/2022 4:11 PM TIMBER RIDER 08/09/2022 5:15 PM TIMBER RIDER 200 mg sugammadex (BRIDION) injection Given Intravenous, INTRA-PROCEDURE MED, Starting on Yumiko 08/09/22 at 1715, Until Yumiko 08/09/22 at 1719, Anesthesia Intra-op documented in this encounter Additional Health Concerns Noted Time Assessment 08/09/2022 8:00 PM TIMBER RIDER A fall risk assessment has been complet ed for the patient documented as of this encounter Care Teams Start Date End Date Field Service Manager Relationship Specialty 08/09/22 08/26/22 No Pcp, Na PCP - General documented as of this encounter
--- OUTSIDE RECORDS SUMMARY | 2022-09-15 15:11 | XMS REPORT | Encounter Summary ---
Author Author [facility] Organization [facility] Address Unknown Phone Unavailable Care Team Providers Care Logistics Research Engineer Name Role Phone No Pcp, Na PCP Unavailable Encounter Details Care Team Description Date Type Department 08/10/2022 Travel Social History Date Tobacco Use Types Packs/Day Years Used Smoking Tobacco: Former Cigarettes Smokeless Tobacco: Never Comments Alcohol Use Standard Drinks/Week Not Currently 0 (1 standard drink = 0.6 o z pure alcohol) Sex Assigned at Date Recorded Not on file Date Recorded COVID-19 Exposure Response 08/10/2022 11:53 AM AUTO STRIPER In the last 10 days, have you [...] Maki Hurt, (08/10/2022 11:58 AM ROSENDO Guillen AUTO STRIPER) documented as of this encounter Visit Diagnoses Not on filedocumented in this encounter Additional Health Concerns Noted Time Assessment 08/10/2022 8:00 PM AUTO STRIPER A fall risk assessment has been complet ed for the patient documented as of this encounter Care Teams Start Date End Date Logistics Research Engineer Relationship Specialty 08/09/22 08/26/22 No Pcp, Na PCP - General documented as of this encounter
--- OUTSIDE RECORDS SUMMARY | 2022-09-15 15:11 | XMS REPORT | Encounter Summary ---
Author Author [facility] Organization [facility] Address Unknown Phone Unavailable Care Team Providers Care Internal Grinding Machine Operator Name Role Phone No Pcp, Na PCP Unavailable Reason for Visit * Auth/Cert (Routine) Diagnoses / Procedures Referred By Contact Referred To Conta ct Specialty Diagnoses Acute ischemic left MCA stroke (HCC) Stroke Referral ID Status Reason Start Date Expiration Visits Vi sits Date Requested Authorized [id number] 1 1 Encounter Details Care Team Description Date Type Department Lynn Vaz MD [id number] [place] [address] 08/15/2022 Anesthesia Cardiology:Center f or [facility] 4000 [facility]. [address], [address] [place] [phone] Anesthesia Record Responsible Anesthesiologist Anesthesia Start Time Anesthesi a Stop Time Procedure Name Lynn Vaz MD 08/15/22 1334 08/15/22 1417 TRANSESOPHAGEAL ECHO Date Time Event Comment 1252 AN Equip Check 2022 133 Anes Start 1335 An Start Data 1341 Anesthesia Ready 1342 Start Supplemental O2 1342 Quick Note Waiting on cardiac MD to arrive. Patient at baseline is nonverbal, drowsy, and does not follow commands. 1403 1415 an stop data 1417 An Stop I completed my SBAR handoff to the receiving nurse. Meds Name Total propofol (DIPRIVAN) 200 mg/ 20 mL 20 mg injection (VIAL) propofol (DIPRIVAN) infusion 55.06 mg ketamine 10mg/mL inj 20 mg glycopyrrolate (ROBINUL) 0.1 mg sodium chloride 0.9% (500mL) 150 mL * Name O2 * No blood administrations on file. Removal Type Details Placement ETT 08/09/22; 1623; Ventilated by mask (1); 08/09/22 1623 by Jg Video laryngoscopy; Single-Lumen, Denny, DO Uncuffed; ETT Size: 7mm; GlideScope; Blade Size: 3; Oral; 1-Full view of the glottis (Mass noted in left hypopharynx); 1 insertion attempt; Vol of Air in Cuff: 8 mL; Taped at Gums: 23 centimeters; Atraumatic 08/15/22 1450 by Oneida Carson RN Peripheral 08/09/22; 1745; R; Forearm; 20 G; 03/23 1745 by DONA De Los Santos Symptomatic (phlebitis, pain, leaking, ROSENDO Arshad infiltration); 08/15/22; 1450 08/20/22 1610 by Hellen Barnes RN Small Bore 08/09/22; 2200; Nose; Post-pyloric; 2200 by Manpreet Rogersrak; Nursing; X-ray; 79 cm; 1; 1; ROSENDO House Tube Air bolus; 08/20/22; 1610 08/21/22 1507 by Shayy Jean RN Indwelling 08/13/22; 1423; Unit (Comment); 16 FR; 08/13/22 1423 by Miranda Urinary Regular (Two-way); 08/21/22; 1507 Parminder daniel RN Catheter documented in this encounter Social History Date Tobacco Use Types Packs/Day Years Used Smoking Tobacco: Former Cigarettes Smokeless Tobacco: Never Comments Alcohol Use Standard Drinks/Week Not Currently 0 (1 standard drink = 0.6 o z pure alcohol) Sex Assigned at Date Recorded Not on file Date Recorded COVID-19 Exposure Response 08/10/2022 11:53 AM GAMING PIT BOSS In the last 10 days, have you been in contact with N o / Unsure someone who was confirmed or suspected to have Coronavirus/COVID-19? documented as of this encounter Functional Status Date of Assessment Functional Status Response 08/10/2022 Does the patient have a hearing impairment: Yes documented as of this encounter OR Notes * Anesthesia Postprocedure Evaluation - Lynn Vaz MD - 08/19/2022 1:16 PM CST Post-Anesthesia Evaluation Name: Derek Castro Jr. : 1945 Age: 77 y.o. Sex: male Procedure Information Anesthesia Start Date/Time: 08/15/22 1334 Scheduled providers: Brenda Kelly RN Procedure: TRANSESOPHAGEAL ECHO Location: Cardiology:[facility] Post-Anesthesia Vitals Vitals Value Taken Time BP Temp Pulse 70 08/19/22 1315 Respirations SpO2 O2 Device ABP ART BP Vitals shown include unvalidated device data. Post Anesthesia Evaluation Note Evaluation location: Pre/Post Patient participation: recovered; patient participated in evaluation Level of consciousness: alert Pain management: adequate Hydration: normovolemia Temperature: 36.0C - 38.4C Airway patency: adequate Perioperative Events Post-op nausea and vomiting: no PONV Postoperative Status Cardiovascular status: hemodynamically stable Follow-up needed: none Perioperative Events There were no known notable events for this encounter. NG PIT BOSS * Anesthesia Preprocedure Evaluation - Lynn Vaz MD - 08/15/2022 8:46 AM CST Anesthesia Pre-Procedure Evaluation Name: Derek Castro Jr. : 1945 Age: 77 y.o. Sex: male Procedure Info: Procedure Information Date/Time: 08/15/22 1330 Procedure: TRANSESOPHAGEAL ECHO Location: Cardiology:[facility] Physical Assessment Vital Signs (last filed in past 24 hours): BP: 146/86 (08/15 075) Temp: 36.4 C (97.5 F) (08/15 075) Pulse: 64 (08/15 0753) Respirations: 16 PER MINUTE (08/15 075) SpO2: 95 % (08/15 752) O2 Device: None (Room air) (08/15 075) SpO2 Pulse: 76 (08/14 1330) Patient History No Known Allergies Current Medications [...] EOSA 6 08/14/2022 ABC 0.04 08/14/2022 MCV 91.0 08/15/2022 MCH 30.1 08/15/2022 MCHC 33.1 08/15/2022 MPV 9.2 08/15/2022 RDW 14.2 08/15/2022 General Chemistry: Lab Results Component Value Date NA 142 08/15/2022 K 4.0 08/15/2022 CL 106 08/15/2022 CO2 27 08/15/2022 GAP 9 08/15/2022 BUN 34 08/15/2022 [...] with spouse. Plan discussed with: anesthesiologist and RELIEF WORKER. NG PIT BOSS documented in this encounter Plan of Treatment Not on filedocumented as of this encounter Goals Goal Patient Associated Recent Progress Patient-Stat Aut hor Goal Type Problems ed? Remain independent Hospital Not on track Maki Hurt (08/10/2022 11:58 AM Wilmer, RN GAMING PIT BOSS) documented as of this encounter Visit Diagnoses Not on filedocumented in this encounter Administered Medications Action Date Dose Rate Site Medication Order MAR Action 08/15/2022 2:02 PM GAMING PIT BOSS 0.1 mg glycopyrrolate (ROBINUL) injection Given Intravenous, INTRA-PROCEDURE MED, Starting on Sat08/15/22 at 1402, Until Sat08/15/22 at 1419, Anesthesia Intra-o p 08/15/2022 1:58 PM GAMING PIT BOSS 20 mg ketamine (KETALAR) injection Given Intravenous, INTRA-PROCEDURE MED, Starting on Sat08/15/22 at 1358, Until Sat08/15/22 at 1419, Anesthesia Intra-o p 08/15/2022 2:09 PM GAMING PIT BOSS 40 mcg/kg/min 23.184 mL/hr propofol (DIPRIVAN) infusion Dose/Rate 20 mL, Intravenous, INTRA-PROCEDURE Change MED(CONT), Starting on Sat08/15/22 at 1358, Until Sat08/15/22 at 1419, Anesthesia Intra-op 30 mcg/kg/min 17.388 mL/hr Dose/Rate Change 08/15/2022 2:02 PM GAMING PIT BOSS 50 mcg/kg/min 28.98 mL/hr Given - New Bag 08/15/2022 1:58 PM GAMING PIT BOSS 08/15/2022 1:58 PM GAMING PIT BOSS 20 mg propofol (DIPRIVAN) injection Given Intravenous, INTRA-PROCEDURE MED, Starting on Sat08/15/22 at 1358, Until Sat08/15/22 at 1419, Anesthesia Intra-o p 08/15/2022 1:40 PM GAMING PIT BOSS sodium chloride 0.9 % infusion Given - New Intravenous, INTRA-PROCEDURE MED(CONT), Bag Starting on Sat08/15/22 at 1340, Until Sat08/15/22 at 1419, Anesthesia Intra-o p documented in this encounter Additional Health Concerns Noted Time Assessment 08/15/2022 8:50 PM GAMING PIT BOSS A fall risk assessment has been complet ed for the patient documented as of this encounter Care Teams Start Date End Date Internal Grinding Machine Operator Relationship Specialty 08/09/22 08/26/22 No Pcp, Na PCP - General documented as of this encounter
--- OUTSIDE RECORDS SUMMARY | 2022-09-15 15:11 | XMS REPORT | Encounter Summary ---
Author Author [facility] Organization [facility] Address Unknown Phone Unavailable Care Team Providers Care Record Pressman Name Role Phone No Pcp, Na PCP Unavailable Nelson Calderon MD PCP Coni Nguyen NP PCP Encounter Details Care Team Description Date Type Department 08/20/2022 Documentation Interventional Radi ology: [facility] [place] 4000 [facility] [address] 2, [address] [place] [address] Social History Date Tobacco Use Types Packs/Day Years Used Smoking Tobacco: Former Cigarettes Smokeless Tobacco: Never Comments Alcohol Use Standard Drinks/Week Not Currently 0 (1 standard drink = 0.6 o z pure alcohol) Sex Assigned at Date Recorded Not on file Date Recorded COVID-19 Exposure Response 08/10/2022 11:53 AM WHEEL CLEANER In the last 10 days, have you [...] No Licha, (08/10/2022 11:58 AM ROSENDO Guillen WHEEL CLEANER) documented as of this encounter Procedures Comments Procedure Name Priority Date/Time Associated Diag nosis TELEMETRY STRIPS-SCAN 08/20/2022 12:00 AM WHEEL CLEANER documented in this encounter Results * TELEMETRY STRIPS-SCAN (08/20/2022 12:00 AM WHEEL CLEANER) Narrative 08/20/2022 12:00 AM WHEEL CLEANER Ordered by an unspecified provider. Scanned Document PROCEDURE DUMMY ORDERS documented in this encounter Visit Diagnoses Not on filedocumented in this encounter Additional Health Concerns Noted Time Assessment 08/20/2022 9:29 PM WHEEL CLEANER A fall risk assessment has been complet ed for the patient documented as of this encounter Care Teams Start Date End Date Record Pressman Relationship Specialty 08/09/22 08/26/22 No Pcp, Na PCP - General 08/27/22 09/04/22 Nelson Calderon MD PCP - General Pulmonary [address] [place] [address] Disease Ortho/[facility] Pavilion [address] [place], [place] [phone] 09/05/22 Coni Nguyen NP PCP - General Nurse [address] [place] [address] Practitioner [place], [place] [phone] documented as of this encounter
--- OUTSIDE RECORDS SUMMARY | 2022-09-15 15:11 | XMS REPORT | Encounter Summary ---
Author Author [facility] Organization [facility] Address Unknown Phone Unavailable Care Team Providers Care External Auditor Name Role Phone No Pcp, Na PCP Unavailable Nelson Calderon MD PCP Coni Nguyen NP PCP Encounter Details Care Team Description Date Type Department 08/20/2022 Documentation Interventional Radi ology: [facility] [place] 4000 [facility] [address] 2, [address] [place] [address] Social History Date Tobacco Use Types Packs/Day Years Used Smoking Tobacco: Former Cigarettes Smokeless Tobacco: Never Comments Alcohol Use Standard Drinks/Week Not Currently 0 (1 standard drink = 0.6 o z pure alcohol) Sex Assigned at Date Recorded Not on file Date Recorded COVID-19 Exposure Response 08/10/2022 11:53 AM RESIDENT PROGRAM SPECIALIST In the last 10 days, have you [...] No Licha, (08/10/2022 11:58 AM ROSENDO Guillen RESIDENT PROGRAM SPECIALIST) documented as of this encounter Procedures Comments Procedure Name Priority Date/Time Associated Diag nosis TELEMETRY STRIPS-SCAN 08/20/2022 12:00 AM RESIDENT PROGRAM SPECIALIST documented in this encounter Results * TELEMETRY STRIPS-SCAN (08/20/2022 12:00 AM RESIDENT PROGRAM SPECIALIST) Narrative 08/20/2022 12:00 AM RESIDENT PROGRAM SPECIALIST Ordered by an unspecified provider. Scanned Document PROCEDURE DUMMY ORDERS documented in this encounter Visit Diagnoses Not on filedocumented in this encounter Additional Health Concerns Noted Time Assessment 08/20/2022 9:29 PM RESIDENT PROGRAM SPECIALIST A fall risk assessment has been complet ed for the patient documented as of this encounter Care Teams Start Date End Date External Auditor Relationship Specialty 08/09/22 08/26/22 No Pcp, Na PCP - General 08/27/22 09/04/22 Nelson Calderon MD PCP - General Pulmonary [address] [place] [address] Disease Ortho/Med Pavilion Lvl 5A [place], [place] [phone] 09/05/22 Coni Nguyen NP PCP - General Nurse [address] [place] [address] Practitioner [place], [place] [id number] documented as of this encounter
--- OUTSIDE RECORDS SUMMARY | 2022-09-15 15:11 | XMS REPORT | Encounter Summary ---
Author Author [facility] Organization [facility] Address Unknown Phone Unavailable Care Team Providers Care Reading Interventionist Name Role Phone No Pcp, Na PCP Unavailable Nelson Calderon MD PCP Coni Nguyen NP PCP Encounter Details Care Team Description Date Type Department 08/20/2022 Documentation Interventional Radi ology: [facility] 4000 [facility] [address], [address] [place] [address] Social History Date Tobacco Use Types Packs/Day Years Used Smoking Tobacco: Former Cigarettes Smokeless Tobacco: Never Comments Alcohol Use Standard Drinks/Week Not Currently 0 (1 standard drink = 0.6 o z pure alcohol) Sex Assigned at Date Recorded Not on file Date Recorded COVID-19 Exposure Response 08/10/2022 11:53 AM PROPERTY APPRAISER In the last 10 days, have you [...] No Licha, (08/10/2022 11:58 AM ROSENDO Guillen PROPERTY APPRAISER) documented as of this encounter Procedures Comments Procedure Name Priority Date/Time Associated Diag nosis TELEMETRY STRIPS-SCAN 08/20/2022 12:00 AM PROPERTY APPRAISER documented in this encounter Results * TELEMETRY STRIPS-SCAN (08/20/2022 12:00 AM PROPERTY APPRAISER) Narrative 08/20/2022 12:00 AM PROPERTY APPRAISER Ordered by an unspecified provider. Scanned Document PROCEDURE DUMMY ORDERS documented in this encounter Visit Diagnoses Not on filedocumented in this encounter Additional Health Concerns Noted Time Assessment 08/20/2022 9:29 PM PROPERTY APPRAISER A fall risk assessment has been complet ed for the patient documented as of this encounter Care Teams Start Date End Date Reading Interventionist Relationship Specialty 08/09/22 08/26/22 No Pcp, Na PCP - General 08/27/22 09/04/22 Nelson Calderon MD PCP - General Pulmonary [address] [place] [address] Disease Ortho/Med Pavilion Lvl 5A [place], [place] [phone] 09/05/22 Coni Nguyen NP PCP - General Nurse [address] [place] [address] Practitioner [place], [place] [address] documented as of this encounter
--- OUTSIDE RECORDS SUMMARY | 2022-09-15 15:11 | XMS REPORT | Encounter Summary ---
Author Author [facility] Organization [facility] Address Unknown Phone Unavailable Care Team Providers Care Math Teacher Name Role Phone No Pcp, Na PCP Unavailable Nelson Calderon MD PCP Coni Nguyen NP PCP Encounter Details Care Team Description Date Type Department 08/20/2022 Documentation Interventional Radi ology: [facility] [place] 4000 [facility] Level 2, [address] [place] [address] Social History Date Tobacco Use Types Packs/Day Years Used Smoking Tobacco: Former Cigarettes Smokeless Tobacco: Never Comments Alcohol Use Standard Drinks/Week Not Currently 0 (1 standard drink = 0.6 o z pure alcohol) Sex Assigned at Date Recorded Not on file Date Recorded COVID-19 Exposure Response 08/10/2022 11:53 AM PROCESS COORDINATOR In the last 10 days, have you [...] No Licha, (08/10/2022 11:58 AM ROSENDO Guillen PROCESS COORDINATOR) documented as of this encounter Procedures Comments Procedure Name Priority Date/Time Associated Diag nosis TELEMETRY STRIPS-SCAN 08/20/2022 12:00 AM PROCESS COORDINATOR documented in this encounter Results * TELEMETRY STRIPS-SCAN (08/20/2022 12:00 AM PROCESS COORDINATOR) Narrative 08/20/2022 12:00 AM PROCESS COORDINATOR Ordered by an unspecified provider. Scanned Document PROCEDURE DUMMY ORDERS documented in this encounter Visit Diagnoses Not on filedocumented in this encounter Additional Health Concerns Noted Time Assessment 08/20/2022 9:29 PM PROCESS COORDINATOR A fall risk assessment has been complet ed for the patient documented as of this encounter Care Teams Start Date End Date Math Teacher Relationship Specialty 08/09/22 08/26/22 No Pcp, Na PCP - General 08/27/22 09/04/22 Nelson Calderon MD PCP - General Pulmonary [address] [place] [address] Disease Ortho/Med Pavilion Lvl 5A [place], [place] [phone] 09/05/22 Coni Nguyen NP PCP - General Nurse [address] [place] [address] Practitioner [place], [place] [phone] documented as of this encounter
--- OUTSIDE RECORDS SUMMARY | 2022-09-15 15:11 | XMS REPORT | Encounter Summary ---
Author Author [facility] Organization [facility] Address Unknown Phone Unavailable Care Team Providers Care Restaurant Crew Name Role Phone No Pcp, Na PCP Unavailable Nelson Calderon MD PCP Coni Nguyen NP PCP Encounter Details Care Team Description Date Type Department 08/20/2022 Documentation Interventional Radi ology: [facility] [place] 4000 [facility] [address] 2, [address] [place] [address] Social History Date Tobacco Use Types Packs/Day Years Used Smoking Tobacco: Former Cigarettes Smokeless Tobacco: Never Comments Alcohol Use Standard Drinks/Week Not Currently 0 (1 standard drink = 0.6 o z pure alcohol) Sex Assigned at Date Recorded Not on file Date Recorded COVID-19 Exposure Response 08/10/2022 11:53 AM MANUFACTURED BUILDINGS SUPERVISOR In the last 10 days, have you [...] No Licha, (08/10/2022 11:58 AM ROSENDO Guillen MANUFACTURED BUILDINGS SUPERVISOR) documented as of this encounter Procedures Comments Procedure Name Priority Date/Time Associated Diag nosis TELEMETRY STRIPS-SCAN 08/20/2022 12:00 AM MANUFACTURED BUILDINGS SUPERVISOR documented in this encounter Results * TELEMETRY STRIPS-SCAN (08/20/2022 12:00 AM MANUFACTURED BUILDINGS SUPERVISOR) Narrative 08/20/2022 12:00 AM MANUFACTURED BUILDINGS SUPERVISOR Ordered by an unspecified provider. Scanned Document PROCEDURE DUMMY ORDERS documented in this encounter Visit Diagnoses Not on filedocumented in this encounter Additional Health Concerns Noted Time Assessment 08/20/2022 9:29 PM MANUFACTURED BUILDINGS SUPERVISOR A fall risk assessment has been complet ed for the patient documented as of this encounter Care Teams Start Date End Date Restaurant Crew Relationship Specialty 08/09/22 08/26/22 No Pcp, Na PCP - General 08/27/22 09/04/22 Nelson Calderon MD PCP - General Pulmonary [address] [place] [address] Disease Ortho/Med Pavilion [address]vl [address]A [place], [place] [phone] 09/05/22 Coni Nguyen NP PCP - General Nurse [address] [place] [address] Practitioner [place], [place] [address] documented as of this encounter
--- OUTSIDE RECORDS SUMMARY | 2022-09-15 15:11 | XMS REPORT | Encounter Summary ---
Author Author [facility] Organization [facility] Address Unknown Phone Unavailable Care Team Providers Care Hospital Orderly Name Role Phone No Pcp, Na PCP Unavailable Nelson Calderon MD PCP Coni Nguyen NP PCP Encounter Details Care Team Description Date Type Department 08/20/2022 Documentation Interventional Radi ology: [facility] 4000 [facility] Level 2, [address] [place] [address] Social History Date Tobacco Use Types Packs/Day Years Used Smoking Tobacco: Former Cigarettes Smokeless Tobacco: Never Comments Alcohol Use Standard Drinks/Week Not Currently 0 (1 standard drink = 0.6 o z pure alcohol) Sex Assigned at Date Recorded Not on file Date Recorded COVID-19 Exposure Response 08/10/2022 11:53 AM GYMNASIUM TEACHER In the last 10 days, have [...] No Licha, (08/10/2022 11:58 AM ROSENDO Guillen GYMNASIUM TEACHER) documented as of this encounter Procedures Comments Procedure Name Priority Date/Time Associated Diag nosis TELEMETRY STRIPS-SCAN 08/20/2022 12:00 AM GYMNASIUM TEACHER documented in this encounter Results * TELEMETRY STRIPS-SCAN (08/20/2022 12:00 AM GYMNASIUM TEACHER) Narrative 08/20/2022 12:00 AM GYMNASIUM TEACHER Ordered by an unspecified provider. Scanned Document PROCEDURE DUMMY ORDERS documented in this encounter Visit Diagnoses Not on filedocumented in this encounter Additional Health Concerns Noted Time Assessment 08/20/2022 9:29 PM GYMNASIUM TEACHER A fall risk assessment has been complet ed for the patient documented as of this encounter Care Teams Start Date End Date Hospital Orderly Relationship Specialty 08/09/22 08/26/22 No Pcp, Na PCP - General 08/27/22 09/04/22 Nelson Calderon MD PCP - General Pulmonary [address] [place] [address] Disease Ortho/Med Pavilion [address]vl 5A [place], [place] [phone] 09/05/22 Coni Nguyen NP PCP - General Nurse [address] [place] [address] Practitioner [place], [place] [address] documented as of this encounter
--- OUTSIDE RECORDS SUMMARY | 2022-09-15 15:11 | XMS REPORT | Encounter Summary ---
Author Author [facility] Organization [facility] Address Unknown Phone Unavailable Care Team Providers Care Alcohol And Drug Counselor Name Role Phone No Pcp, Na PCP Unavailable Nelson Calderon MD PCP Coni Nguyen NP PCP Encounter Details Care Team Description Date Type Department 08/20/2022 Documentation Interventional Radi ology: [facility] 4000 [facility] [address] 2, [address] [place] [address] Social History Date Tobacco Use Types Packs/Day Years Used Smoking Tobacco: Former Cigarettes Smokeless Tobacco: Never Comments Alcohol Use Standard Drinks/Week Not Currently 0 (1 standard drink = 0.6 o z pure alcohol) Sex Assigned at Date Recorded Not on file Date Recorded COVID-19 Exposure Response 08/10/2022 11:53 AM NEEDLEWORKER In the last 10 days, have you [...] No Licha, (08/10/2022 11:58 AM ROSENDO Guillen NEEDLEWORKER) documented as of this encounter Procedures Comments Procedure Name Priority Date/Time Associated Diag nosis TELEMETRY STRIPS-SCAN 08/20/2022 12:00 AM NEEDLEWORKER documented in this encounter Results * TELEMETRY STRIPS-SCAN (08/20/2022 12:00 AM NEEDLEWORKER) Narrative 08/20/2022 12:00 AM NEEDLEWORKER Ordered by an unspecified provider. Scanned Document PROCEDURE DUMMY ORDERS documented in this encounter Visit Diagnoses Not on filedocumented in this encounter Additional Health Concerns Noted Time Assessment 08/20/2022 9:29 PM NEEDLEWORKER A fall risk assessment has been complet ed for the patient documented as of this encounter Care Teams Start Date End Date Alcohol And Drug Counselor Relationship Specialty 08/09/22 08/26/22 No Pcp, Na PCP - General 08/27/22 09/04/22 Nelson Calderon MD PCP - General Pulmonary [address] [place] [address] Disease Ortho/Med Pavilion [address] [place], [place] [phone] 09/05/22 Coni Nguyen NP PCP - General Nurse [address] [place] [address] Practitioner [place], [place] [address] documented as of this encounter
--- OUTSIDE RECORDS SUMMARY | 2022-09-15 15:11 | XMS REPORT | Encounter Summary ---
Author Author [facility] Organization [facility] Address Unknown Phone Unavailable Care Team Providers Care Fish And Wildlife Technician Name Role Phone No Pcp, Na PCP Unavailable Nelson Calderon MD PCP Coni Nguyen NP PCP Encounter Details Care Team Description Date Type Department 08/20/2022 Documentation Interventional Radi ology: [facility] [place] [address] [facility] [address], [id number] [place] [address] Social History Date Tobacco Use Types Packs/Day Years Used Smoking Tobacco: Former Cigarettes Smokeless Tobacco: Never Comments Alcohol Use Standard Drinks/Week Not Currently 0 (1 standard drink = 0.6 o z pure alcohol) Sex Assigned at Date Recorded Not on file Date Recorded COVID-19 Exposure Response 08/10/2022 11:53 AM FRANCHISE DEVELOPMENT MANAGER In the last 10 days, have you [...] No Licha, (08/10/2022 11:58 AM ROSENDO Guillen FRANCHISE DEVELOPMENT MANAGER) documented as of this encounter Procedures Comments Procedure Name Priority Date/Time Associated Diag nosis TELEMETRY STRIPS-SCAN 08/20/2022 12:00 AM FRANCHISE DEVELOPMENT MANAGER documented in this encounter Results * TELEMETRY STRIPS-SCAN (08/20/2022 12:00 AM FRANCHISE DEVELOPMENT MANAGER) Narrative 08/20/2022 12:00 AM FRANCHISE DEVELOPMENT MANAGER Ordered by an unspecified provider. Scanned Document PROCEDURE DUMMY ORDERS documented in this encounter Visit Diagnoses Not on filedocumented in this encounter Additional Health Concerns Noted Time Assessment 08/20/2022 9:29 PM FRANCHISE DEVELOPMENT MANAGER A fall risk assessment has been complet ed for the patient documented as of this encounter Care Teams Start Date End Date Fish And Wildlife Technician Relationship Specialty 08/09/22 08/26/22 No Pcp, Na PCP - General 08/27/22 09/04/22 Nelson Calderon MD PCP - General Pulmonary [address] [place] [address] Disease Ortho[facility] [address] [place], [place] [id number] 09/05/22 Coni Nguyen NP PCP - General Nurse [address] [place] [address] Practitioner [place], [place] [id number] documented as of this encounter
--- OUTSIDE RECORDS SUMMARY | 2022-09-15 15:11 | XMS REPORT | Encounter Summary ---
Author Author [facility] Organization [facility] Address Unknown Phone Unavailable Care Team Providers Care Tool And Die Machinist Name Role Phone No Pcp, Na PCP Unavailable Nelson Calderon MD PCP Coni Nguyen NP PCP Encounter Details Care Team Description Date Type Department 08/20/2022 Documentation Interventional Radi ology: [facility] [place] [address] [facility] [id number] [place] [address] Social History Date Tobacco Use Types Packs/Day Years Used Smoking Tobacco: Former Cigarettes Smokeless Tobacco: Never Comments Alcohol Use Standard Drinks/Week Not Currently 0 (1 standard drink = 0.6 o z pure alcohol) Sex Assigned at Date Recorded Not on file Date Recorded COVID-19 Exposure Response 08/10/2022 11:53 AM SLIP COVER MAKER In the last 10 days, have you [...] No Licha, (08/10/2022 11:58 AM ROSENDO Guillen SLIP COVER MAKER) documented as of this encounter Procedures Comments Procedure Name Priority Date/Time Associated Diag nosis TELEMETRY STRIPS-SCAN 08/20/2022 12:00 AM SLIP COVER MAKER documented in this encounter Results * TELEMETRY STRIPS-SCAN (08/20/2022 12:00 AM SLIP COVER MAKER) Narrative 08/20/2022 12:00 AM SLIP COVER MAKER Ordered by an unspecified provider. Scanned Document PROCEDURE DUMMY ORDERS documented in this encounter Visit Diagnoses Not on filedocumented in this encounter Additional Health Concerns Noted Time Assessment 08/20/2022 9:29 PM SLIP COVER MAKER A fall risk assessment has been complet ed for the patient documented as of this encounter Care Teams Start Date End Date Tool And Die Machinist Relationship Specialty 08/09/22 08/26/22 No Pcp, Na PCP - General 08/27/22 09/04/22 Nelson Calderon MD PCP - General Pulmonary [address] [place] [address] Disease Ortho/Med [facility] [address] [place], [place] [phone] 09/05/22 Coni Nguyen NP PCP - General Nurse [address] [place] [address] Practitioner [place], [place] [id number] documented as of this encounter
[2022-09-15] MEDS: NS IV 1000 ML 1,000 ML IV SCH ×2 (15:40→18:31)
[2022-09-15] MEDS ORDERED: VANCOMYCIN INJECTION 0.1 MG in NS (IVPB) 250 ML IV SCH (15:45)
[2022-09-15] MEDS ORDERED: PANTOPRAZOLE 40 MG (PROTONIX) VIAL IV ONE (15:45)
[2022-09-15] MEDS ORDERED: NS IV 1000 ML 1,000 ML IV SCH (15:45)
[2022-09-15] MEDS ORDERED: NS IV 1000 ML 1,000 ML ONE (15:50)
[2022-09-15] MEDS ORDERED: PIPERACILLIN SODIUM/TAZOBACTAM 4.5 GM in NS (IVPB) 100 ML IV ONE (16:00)
[2022-09-15] MEDS ORDERED: VANCOMYCIN 2000 MG/NS 500 ML IVPB IV SCH ×2 (18:00)
[2022-09-15 20:09] VITALS: BP 119/68
[2022-09-15] MEDS ORDERED: levETIRAcetam 1000 mg/NS 100ml 100 ML IV SCH (21:00)
[2022-09-15] MEDS: PIPERACILLIN SODIUM/TAZOBACTAM 4.5 GM in NS (IVPB) 100 ML IV SCH (21:46)
[2022-09-16] VITALS (7 sets, daily range): BP systolic 122–145; BP diastolic 65–77
[2022-09-16] MEDS: PIPERACILLIN SODIUM/TAZOBACTAM 4.5 GM in NS (IVPB) 100 ML IV SCH ×3 (05:30→20:16)
[2022-09-16] MEDS: NS IV 1000 ML 1,000 ML IV SCH ×3 (06:40→18:25)
[2022-09-16] MEDS ORDERED: PANTOPRAZOLE 40 MG (PROTONIX) VIAL IV SCH (09:00)
[2022-09-16] MEDS ORDERED: ASPIRIN 81 MG CHEW (CHILDREN'S ASA) PO SCH (09:00)
[2022-09-16] MEDS ORDERED: CLOPIDOGREL 75 MG (PLAVIX) TABLET PO SCH (09:00)
--- NOTE | 2022-09-16 09:10 | History & Physical-Hospitalist ---
History of Present Illness HPI/Chief Complaint The patient is a 77-year-old white male who is about 5 weeks out from an extensive right-sided CVA with left-sided hemiparesis expressive and receptive aphasia as well as dysphagia requiring PEG tube placement. History of stroke was felt to be cryptogenic and while he was transferred to there apparently wishes conservative medical management. He was recently discharged back to home where his noted he become increasingly lethargic over the previous 24 hours. He was brought to the emergency room where was noted that his white count was significantly elevated he had old changes of right-sided CVA predominantly frontal lobe on appearance despite his left-sided hemiparesis and while poor inspiratory effort on chest x-ray likely due to inability to follow any kind of command which did not reveal overt pneumonia he did have some focal findings per the emergency room physician suspicious for right middle lobe pneumonia or right lower lobe pneumonia. Broad-spectrum antibiotics for someone who meets hospital-acquired status were initiated. The patient's blood pressure was also low in the 80s to 90 systolic range but did come up with fluid boluses as I recall around 3 L in the emergency room to 100-1 10 systolic range. I was unable to obtain a history from the patient due to expressive and receptive aph magnus with no family members being present yet this morning. Patient did not appear to be in acute distress but oriented to voice but no attempts at communication and no ability to follow simple commands. Date Seen 09/16/22 Time Seen by a Provider: 07:30 Attending Physician [facility] PCP Admitting Physician: Denny Mancini MD Attending Physician: Denny Mancini MD Referring Physician Date of Admission Sep 15, 2022 at 14:52 Home Medications & Allergies Home Medications Reviewed patient Home Medication Reconciliation performed by pharmacy medication reconciliations facility environmental technician and/or nursing. Patients Allergies have been reviewed. Allergies Allergies Coded Allergies No Known Drug Allergies (Unverified03/27/22) Past Isofhcp-Mbbuhj-Xpgkho Hx Patient Social History Marrital Status: Pt feels they are or have been: Unable to obtain Immunizations Up To Date Date of Influenza Vaccine: May 05, 2021 First/Initial COVID19 Vaccinat: 08-27-20 Second COVID19 Vaccination Talib: AUGUST 2020 Tetanus Booster (TDap): Less Than 5 Years PED Vaccines UTD: Yes Date of Pneumonia Vaccine: Apr 02, 2017 Seasonal Allergies Seasonal Allergies: No Current Status Advance Directives: Unable to obtain Communicates: Does Not Communicate Primary Language: Swedish Past Medical History Surgeries: Abdominal, CABG, Coronary Stent, Orthopedic Coronary Artery Disease, Hypertension Stroke Renal Failure Hypothyroidsim Cataract Loss of Vision: Denies Hearing Impairment: Denies PMHx: (per chart review) CVA 2019 HTN Hypothyroidism CKD CAD s/p bypass HLD Gout History of stroke with left sided weakness SurgHx: CABG Cardiac stenting hernia repair Cataract removal Bicep repair Family Medical History Cardiovascular disease 19 FATHER 19 MOTHER (CONGESTIVE HEART FAILURE) Diabetes mellitus 19 MOTHER FH: breast cancer 19 MOTHER Myocardial infarction 19 FATHER Review of Systems Constitutional: see HPI Physical Exam Physical Exam Vital Signs Vital Signs - First Documented 09/15/22 09/15/22 15:00 15:08 Temp 36.6 Pulse 87 Resp 10 B/P (MAP) 85/58 (67) Pulse Ox 93 O2 Delivery Nasal Cannula O2 Flow Rate 4.00 Capillary Refill : Height, Weight, BMI Height: 5'9.00" Weight: 200lbs. 0.0oz. 90.221347sb; 35.24 BMI Method:Stated General Appearance: No Apparent Distress Neck: Full Range of Motion, Normal Inspection Respiratory: No Accessory Muscle Use, No Respiratory Distress, Other (Some diminishment of breath sounds in the bases patient does have some rales most prominent right thorax around the axillary line area) Cardiovascular: Regular Rate, Rhythm, No Edema, No Gallop, No JVD, No Murmur, N ormal Peripheral Pulses, Other ( event recorder taped to chest wall) Gastrointestinal: Normal Bowel Sounds, No Organomegaly, No Pulsatile Mass, Non Tender, Soft Extremity: Other ( trace edema of the left left side appears to be flaccid no reaction to palpation no erythema no induration bilaterally extremities warm) Neurologic/Psychiatric: Other ( complete expressive and significant receptive aphasia likely with what appears to be flaccid left-sided hemiparesis no evidence for facial droop patient does not appear to be in acute distress) Results Results/Procedures Labs Patient resulted labs reviewed. Assessment/Plan Admission Diagnosis 1. Likely right middle or lower lobe pneumonia with sepsis not severe continue treatment for hospital-acquired pneumonia status and continue IV fluids. 2. Little over 5 weeks out from rather extensive right-sided CVA with left hemiparesis expressive and receptive aphasia as well as dysphagia requiring PEG tube placement can continue tube feeds will need consultation with dietary for recommendations on current caloric intake for now continue Jevity 240 cc 4 times daily. IV fluids will take care of free water but will need free water boluses when they are discontinued. 3. Presumed hypertension patient appears to have stage III chronic renal disease with creatinines in the mid to upper 1 range currently he does qualify for acute kidney injury likely due to dehydration we will be repeating a CBC and a BMP this morning. Admission Status: Inpatient Order (span 2 midnights) Reason for Inpatient Admission: See admission diagnosis DENNY MANCINI MD Sep 16, 2022 09:10
[2022-09-16 10:06] LABS: ALBUMIN 2.5 GM/DL (3.2-4.5); POTASSIUM 5.1 MMOL/L (3.6-5.0)
[2022-09-16 10:08] LABS: CALCIUM 8.1 MG/DL (8.5-10.1)
[2022-09-16 10:09] LABS: TOTAL PROTEIN 5.1 GM/DL (6.4-8.2)
[2022-09-16 10:10] LABS: BILIRUBIN,TOTAL 0.7 MG/DL (0.1-1.0)
[2022-09-16 10:12] LABS: CREATININE SERUM 2.32 MG/DL (0.60-1.30)
[2022-09-16 10:16] LABS: BASOPHILS # (AUTO) 0.1 10^3/uL (0.0-0.1); BASOPHILS % (AUTO) 0 % (0-10); EOSINOPHILS % (AUTO) 0 % (0-10); HEMATOCRIT 41 % (40-54); HEMOGLOBIN 12.9 g/dL (13.3-17.7); LYMPHOCYTES # (AUTO) 0.5 10^3/uL (1.0-4.0); LYMPHOCYTES % (AUTO) 1 % (12-44); MEAN CORPUSCULAR HEMOGLOBIN 30 pg (25-34); MEAN CORPUSCULAR HGB CONC 32 g/dL (32-36); MEAN CORPUSCULAR VOLUME 96 fL (80-99); MEAN PLATELET VOLUME 11.6 fL (9.0-12.2); MONOCYTES # (AUTO) 1.4 10^3/uL (0.0-1.0); MONOCYTES % (AUTO) 4 % (0-12); NEUTROPHILS # (AUTO) 31.7 10^3/uL (1.8-7.8); NEUTROPHILS % (AUTO) 89 % (42-75); PLATELET COUNT 147 10^3/uL (130-400)
[2022-09-16 10:19] LABS: WHITE BLOOD COUNT 35.8 10^3/uL (4.3-11.0)
[2022-09-16 10:26] LABS: BAND NEUTROPHILS 14 %; NEUTROPHILS % (MANUAL) 81 %
[2022-09-16 10:27] LABS: METAMYELOCYTES % 5 %
[2022-09-16 10:29] LABS: TOXIC GRANULATION/VACUOLAZATIO 3+
[2022-09-16 10:30] LABS: RBC MORPH NORMAL
[2022-09-16] MEDS: VANCOMYCIN 1250 MG/NS 250 ML PREMIX IV SCH ×2 (11:12→23:50)
[2022-09-16] MEDS ORDERED: RT-ALBUTEROL/IPRATROPIUM 3 ML (DUONEB) VIAL ONE (11:54)
[2022-09-16] MEDS ORDERED: RT-ALBUTEROL/IPRATROPIUM 3 ML (DUONEB) VIAL INH PRN (12:15)
[2022-09-16] MEDS: RT-ALBUTEROL/IPRATROPIUM 3 ML (DUONEB) VIAL INH SCH ×2 (19:20→22:30)
[2022-09-17] VITALS (13 sets, daily range): BP systolic 74–118; BP diastolic 52–79
[2022-09-17] MEDS: NS IV 1000 ML 1,000 ML IV SCH (01:00)
[2022-09-17] MEDS: RT-ALBUTEROL/IPRATROPIUM 3 ML (DUONEB) VIAL INH SCH (03:10)
[2022-09-17] MEDS ORDERED: dilTIAZem DRIP PRE-MIX 125 ML IV ONE (03:46)
[2022-09-17 04:00] LABS: EOSINOPHILS % (AUTO) 0 % (0-10); MEAN CORPUSCULAR VOLUME 94 fL (80-99)
[2022-09-17] MEDS ORDERED: dilTIAZem DRIP PRE-MIX 125 ML IV SCH (04:00)
[2022-09-17 04:02] LABS: BASOPHILS # (AUTO) 0.1 10^3/uL (0.0-0.1); BASOPHILS % (AUTO) 0 % (0-10); HEMATOCRIT 39 % (40-54); HEMOGLOBIN 12.4 g/dL (13.3-17.7); LYMPHOCYTES # (AUTO) 0.8 10^3/uL (1.0-4.0); LYMPHOCYTES % (AUTO) 3 % (12-44); MEAN CORPUSCULAR HEMOGLOBIN 30 pg (25-34); MEAN CORPUSCULAR HGB CONC 32 g/dL (32-36); MEAN PLATELET VOLUME 12.1 fL (9.0-12.2); MONOCYTES # (AUTO) 1.8 10^3/uL (0.0-1.0); MONOCYTES % (AUTO) 6 % (0-12); NEUTROPHILS # (AUTO) 24.7 10^3/uL (1.8-7.8); NEUTROPHILS % (AUTO) 84 % (42-75); PLATELET COUNT 125 10^3/uL (130-400); WHITE BLOOD COUNT 29.5 10^3/uL (4.3-11.0)
[2022-09-17 04:08] LABS: ALBUMIN 2.3 GM/DL (3.2-4.5)
[2022-09-17 04:10] LABS: CALCIUM 8.3 MG/DL (8.5-10.1)
[2022-09-17 04:11] LABS: TOTAL PROTEIN 4.9 GM/DL (6.4-8.2)
[2022-09-17 04:13] LABS: BILIRUBIN,TOTAL 0.8 MG/DL (0.1-1.0)
[2022-09-17 04:15] LABS: CREATININE SERUM 2.52 MG/DL (0.60-1.30)
[2022-09-17] MEDS ORDERED: NS IV 500 ML 500 ML ONE (04:23)
[2022-09-17 04:27] LABS: PHOSPHORUS 3.3 MG/DL (2.3-4.7)
[2022-09-17 04:29] LABS: MAGNESIUM 1.8 MG/DL (1.6-2.4)
[2022-09-17] MEDS ORDERED: NS 500 ML IV BAG IV ONE (04:45)
[2022-09-17] MEDS: PIPERACILLIN SODIUM/TAZOBACTAM 4.5 GM in NS (IVPB) 100 ML IV SCH (04:54)
[2022-09-17 05:36] LABS: NEUTROPHILS % (MANUAL) 64 %
[2022-09-17 05:37] LABS: ATYPICAL LYMPHOCYTES 4 %; BAND NEUTROPHILS 23 %; BURR CELLS MODERATE; METAMYELOCYTES % 1 %; MONOCYTES % (MANUAL) 6 %
[2022-09-17 05:38] LABS: PLATELET CLUMPS 0 CLUMPS OBSERVED
[2022-09-17] MEDS ORDERED: ONDANSETRON 4 MG/2 ML (SDV) Z0FRAN IVP PRN (06:00)
[2022-09-17] MEDS ORDERED: LORazepam 1 MG (ATIVAN) TAB SL PRN (06:00)
[2022-09-17] MEDS ORDERED: PROMETHAZINE INJ 25 MG/ML (PHENERGAN) AMP IVP PRN (06:00)
[2022-09-17] MEDS ORDERED: ACETAMINOPHEN 650 MG SUPP (TYLENOL) PR PRN (06:00)
[2022-09-17] MEDS ORDERED: BISACODYL 10 MG SUPP (DULCOLAX) PR PRN (06:00)
[2022-09-17] MEDS ORDERED: ARTIFICAL TEARS 0.4 ML UNIT DOSE (REFRESH PLUS) OU PRN (06:00)
[2022-09-17] MEDS ORDERED: RT-ALBUTEROL/IPRATROPIUM 3 ML (DUONEB) VIAL INH PRN (06:00)
[2022-09-17] MEDS: morphine INJ 4 MG/ML 1 ML (VIAL/SYRINGE) IV PRN ×9 (06:31→23:49)
[2022-09-17] MEDS: GLYCOPYRROLATE 0.2 MG/ML (ROBINUL) 2 ML VIAL IV PRN ×2 (06:31→07:21)
[2022-09-17] MEDS: LORazepam INJ 2 MG/ML (ATIVAN) VIAL IVP PRN ×3 (06:31→10:48)
--- NOTE | 2022-09-17 12:44 | Progress Note - Hospitalist ---
MIN MCKEON 09/17/22 1244: Subjective HPI/CC On Admission Date Seen by Provider: Sep 17, 2022 Time Seen by Provider: 08:45 Per admission HPI: "The patient is a 77-year-old white male who is about 5 weeks out from an extensive right-sided CVA with left-sided hemiparesis expressive and receptive aphasia as well as dysphagia requiring PEG tube placement. History of stroke was felt to be cryptogenic and while he was transferred to there apparently wishes conservative medical management. He was recently discharged back to home where his noted he become increasingly lethargic over the previous 24 hours. He was brought to the emergency room where was noted that his white count was significantly elevated he had old changes of right-sided CVA predominantly frontal lobe on appearance despite his left-sided hemiparesis and while poor inspiratory effort on chest x-ray likely due to inability to follow any kind of command which did not reveal overt pneumonia he did have some focal findings per the emergency room physician suspicious for right middle lobe pneumonia or right lower lobe pneumonia. Broad-spectrum antibiotics for someone who meets hospital-acquired status were initiated. The patient's blood pressure was also low in the 80s to 90 systolic range but did come up with fluid boluses as I recall around 3 L in the emergency room to 100-1 10 systolic range. I was unable to obtain a history from the patient due to expressive and receptive aphasia with no family members being present yet this morning. Patient did not appear to be in acute distress but oriented to voice but no attempts at communication and no ability to follow simple commands." Subjective/Events-last exam Pt has been moved to comfort care. His is at bedside with him. He is resting comfortably and snoring with a breath about every 8-10 seconds. No distress is noted. He is not rousable and not verbal. reports no issues and will let us know if she needs anything or if his status changes. Objective Exam Vital Signs Vital Signs Date Time Temp Pulse Resp B/P (MAP) Pulse Ox O2 Delivery O2 Flow Rate FiO2 09/17/22 09:40 97 Room Air 09/17/22 06:00 124 13 97/62 (73) 30.00 80.00 09/17/22 03:10 80 09/16/22 23:42 36.8 Capillary Refill : General Appearance: No Apparent Distress, Other (Not alert. Not concious.) Respiratory: Normal Breath Sounds, No Respiratory Distress Cardiovascular: Regular Rate, Rhythm Neurologic/Psychiatric: Other (Not alert. Patient sedated from oxygen hunger PRNs with comfort care measures. ) Skin: Normal Color, Warm/Dry Results/Procedures Lab Laboratory Tests 09/17/22 03:55 Patient resulted labs reviewed. Assessment/Plan Assessment and Plan Assess & Plan/Chief Complaint Assessment: This is a 77 y/o male who presented with hospital-acquired pneumonia and sepsis now HD#1 Plan: RLL/RML Pneumonia Likely 2/2 aspiration AHRF Hypotension Sepsis -Pt started on empiric abx, dc'd for comfort care -Now moved to comfort care orders -Pt is currently comfortable, receiving PRNs for oxygen hunger. Hx of CVA Hx of CKD stage III -DC therapies for comfort care measures. Dispo: Will transfer to med-surg for continuation of comfort care only treatment. PRETTY HERRERA DO 09/18/22 0448: Supervisory-Addendum Brief Verification & Attestation Participated in pt care: history, MDM, physical Personally performed: exam, history, MDM, supervision of care Care discussed with: Medical Student Procedures: n/a Results interpretation: Verified all documentation Verification and Attestation of Medical Student E/M Service A medical student performed and documented this service in my presence. I reviewed and verified all information documented by the medical student and made modifications to such information, when appropriate. I personally performed the physical exam and medical decision making. Pretty Herrera Sep 18, 2022,04:48 MIN MCKEON Sep 17, 2022 12:44 PRETTY HERRERA DO Sep 18, 2022 04:48
[2022-09-18] MEDS: morphine INJ 4 MG/ML 1 ML (VIAL/SYRINGE) IV PRN ×9 (03:04→19:12)
--- NOTE | 2022-09-18 05:04 | Progress Note - Hospitalist ---
Subjective HPI/CC On Admission Date Seen by Provider: Sep 18, 2022 Time Seen by Provider: 09:00 Per admission HPI: "The patient is a 77-year-old white male who is about 5 weeks out from an extensive right-sided CVA with left-sided hemiparesis expressive and receptive aphasia as well as dysphagia requiring PEG tube placement. History of stroke was felt to be cryptogenic and while he was transferred to there apparently wishes conservative medical management. He was recently discharged back to home where his noted he become increasingly lethargic over the prev ious 24 hours. He was brought to the emergency room where was noted that his white count was significantly elevated he had old changes of right-sided CVA predominantly frontal lobe on appearance despite his left-sided hemiparesis and while poor inspiratory effort on chest x-ray likely due to inability to follow any kind of command which did not reveal overt pneumonia he did have some focal findings per the emergency room physician suspicious for right middle lobe pneumonia or right lower lobe pneumonia. Broad-spectrum antibiotics for someone who meets hospital-acquired status were initiated. The patient's blood pressure was also low in the 80s to 90 systolic range but did come up with fluid boluses as I recall around 3 L in the emergency room to 100-1 10 systolic range. I was unable to obtain a history from the patient due to expressive and receptive aphasia with no family members being present yet this morning. Patient did not appear to be in acute distress but oriented to voice but no attempts at comm unication and no ability to follow simple commands. Subjective/Events-last exam End of life status Wants to go home on hospice tomorrow Objective Exam Vital Signs Vital Signs Date Time Temp Pulse Resp B/P (MAP) Pulse Ox O2 Delivery O2 Flow Rate FiO2 09/18/22 20:00 Room Air 09/18/22 07:24 97 09/17/22 06:00 124 13 97/62 (73) 30.00 80.00 09/17/22 03:10 80 09/16/22 23:42 36.8 Capillary Refill : General Appearance: Other (comatose) Results/Procedures Lab Patient resulted labs reviewed. Assessment/Plan Assessment and Plan Assess & Plan/Chief Complaint End of life JAVIERFILIBERTO SANTOYO Sep 18, 2022 05:04
[2022-09-18] MEDS: GLYCOPYRROLATE 0.2 MG/ML (ROBINUL) 2 ML VIAL IV PRN ×4 (07:00→21:56)
[2022-09-18] MEDS: LORazepam INJ 2 MG/ML (ATIVAN) VIAL IVP PRN ×4 (14:07→21:56)
[2022-09-18] MEDS ORDERED: LORazepam 1 MG (ATIVAN) TAB SL PRN (15:00)
[2022-09-18] MEDS ORDERED: PROMETHAZINE INJ 25 MG/ML (PHENERGAN) AMP IVP PRN (15:00)
[2022-09-18] MEDS ORDERED: ACETAMINOPHEN 650 MG SUPP (TYLENOL) PR PRN (15:00)
[2022-09-18] MEDS ORDERED: BISACODYL 10 MG SUPP (DULCOLAX) PR PRN (15:00)
[2022-09-18] MEDS ORDERED: SALIVA SUBSTITUTE 60 ML SPRAY(MOUTHKOTE) MM PRN (15:00)
[2022-09-18] MEDS ORDERED: ARTIFICAL TEARS 0.4 ML UNIT DOSE (REFRESH PLUS) OU PRN (15:00)
[2022-09-18] MEDS ORDERED: ONDANSETRON 4 MG/2 ML (SDV) Z0FRAN IVP PRN (15:00)
[2022-09-18] MEDS ORDERED: RT-ALBUTEROL/IPRATROPIUM 3 ML (DUONEB) VIAL INH PRN (15:00)
[2022-09-18] MEDS ORDERED: SCOPOLAMINE 1.5 MG (TRANSDERM-SCOP) PATCH TOP SCH (15:00)
[2022-09-18] MEDS: ATROPINE 1% OPHTHALMIC SOLN 2 ML SL PRN ×2 (16:06→19:12)
[2022-09-19] MEDS: LORazepam INJ 2 MG/ML (ATIVAN) VIAL IVP PRN ×3 (02:47→11:23)
[2022-09-19] MEDS: GLYCOPYRROLATE 0.2 MG/ML (ROBINUL) 2 ML VIAL IV PRN ×2 (02:47→08:11)
[2022-09-19] MEDS: morphine INJ 4 MG/ML 1 ML (VIAL/SYRINGE) IV PRN ×2 (04:33→08:12)
[2022-09-19] MEDS: ATROPINE 1% OPHTHALMIC SOLN 2 ML SL PRN ×2 (04:34→11:23)
[2022-09-19] MEDS: SALIVA SUBSTITUTE 60 ML SPRAY(MOUTHKOTE) MM PRN ×2 (08:20→11:24)
[2022-09-19] MEDS ORDERED: MORP100S7 PO (09:54)
[2022-09-19] MEDS ORDERED: LORA2ORA PO (09:54)
--- NOTE | 2022-09-19 09:55 | Discharge Summary ---
Discharge Summary Hospital Course Was the Problem List Reviewed?: Yes Problems/Dx: (1) Sepsis (2) CVA (cerebral vascular accident) (3) Stroke Hospital Course Date of Admission: Sep 15, 2022 at 14:52 Admission Diagnosis : [facility]: 09/19/22 Discharge Diagnosis: [ ] Hospital Course: Short course after he was admitted following sepsis from aspiration PNA moved [place] [facility] [place] higher level of care 1 day after he DC from after rehab following catastrophic CVA. Patent worsened rapidly and ultimately became DNR and comfort care and was moved to floor and ultimately DC home on hospice. Labs and Pending Lab Test: Microbiology 09/16/22 Gram Stain - Final, Complete 09/16/22 Sputum Culture - Final, Complete Klebsiella pneumoniae Home Meds Active Lorazepam Intensol (Lorazepam) 2 Mg/Ml Oral.conc 1 Mg PO Q2H PRN Morphine Conc. 20mg/ml (Morphine Sulfate) 100 Mg/5 Ml (20 Mg/Ml) Solution 10 Mg PO Q2H PRN Reported Fish Oil 1,000 mg Softgel ([place]-3/Dha/Epa/Fish Oil) 1,000 Mg (120 Mg-180 Mg) Capsule 1,000 Mg PO DAILY Cetirizine HCl 10 Mg Tablet 10 Mg PO DAILY PRN Melatonin 5 Mg Tablet 5 Mg PO HS Vitamin D3 (Cholecalciferol (Vitamin D3)) 25 Mcg (1000 Unit) Tablet 25 Mcg PO DAILY Multivitamin 1 Each Tablet 1 Each PO DAILY Clopidogrel (Clopidogrel Bisulfate) 75 Mg Tablet 75 Mg PO DAILY Atorvastatin Calcium 80 Mg Tablet 80 Mg PO DAILY Aspirin 81 Mg Tab.chew 81 Mg PO DAILY Assessment/Pt Instructions Hospice Discharge Planning: <30 minutes discharge planning Discharge Instructions Discharge Diet: No Restrictions Discharge Physical Examination Vital Signs Vital Signs Date Time Temp Pulse Resp B/P (MAP) Pulse Ox O2 Delivery O2 Flow Rate FiO2 09/19/22 08:00 Room Air 09/18/22 07:24 97 09/17/22 06:00 124 13 97/62 (73) 30.00 80.00 09/17/22 03:10 80 09/16/22 23:42 36.8 General Appearance: No Apparent Distress, WD/WN, Other (comatose) Allergies: Coded Allergies: No Known Drug Allergies (Unverified , 03/27/22) Discharge Summary Date of Admission Sep 15, 2022 at 14:52 Date of Discharge Discharge Date: Sep 19, 2022 Admission Diagnosis 1. Likely right middle or lower lobe pneumonia with sepsis not severe continue treatment for hospital-acquired pneumonia status and continue IV fluids. 2. Little over 5 weeks out from rather extensive right-sided CVA with left hemiparesis expressive and receptive aphasia as well as dysphagia requiring PEG tube placement can continue tube feeds will need consultation with dietary for recommendations on current caloric intake for now continue Jevity 240 cc 4 times daily. IV fluids will take care of free water but will need free water boluses when they are discontinued. 3. Presumed hypertension patient appears to have stage III chronic renal disease with creatinines in the mid to upper 1 range currently he does qualify for acute kidney injury likely due to dehydration we will be repeating a CBC and a BMP this morning. Comfort Measures/ End of Life Care: Comfort Measures Discharge Diagnosis End of life FILIBERTO HERRERA DO Sep 19, 2022 09:55
[2022-09-19 12:20] VITALS: BP 97/62
[2022-09-21] MEDS ORDERED: SCOPOLAMINE PATCH REMOVAL TP SCH (14:59)
== END 2022-09-19 12:20 | disposition hospice, home (50) | DRG 871 ==
LOC: CSD 14:52 → ICU 09-17 03:42 → 4TH 09-17 09:35
PROVIDERS: ADMIT Internal Medicine; ATTEND Internal Medicine
DX: A41.9 Sepsis, unspecified organism (principal); J18.9 Pneumonia, unspecified organism; J69.0 Pneumonitis due to inhalation of food and vomit; I69.354 Hemiplegia and hemiparesis following cerebral infarction affecting left non-dominant side; N17.9 Acute kidney failure, unspecified; Z51.5 Encounter for palliative care; E78.5 Hyperlipidemia, unspecified; Z66 Do not resuscitate; I12.9 Hypertensive chronic kidney disease with stage 1 through stage 4 chronic kidney disease, or unspecified chronic kidney disease; N18.30 Chronic kidney disease, stage 3 unspecified; M10.9 Gout, unspecified; E03.9 Hypothyroidism, unspecified; E86.0 Dehydration; I95.9 Hypotension, unspecified; I69.391 Dysphagia following cerebral infarction; I69.320 Aphasia following cerebral infarction; Z93.1 Gastrostomy status; Z95.1 Presence of aortocoronary bypass graft; Z95.5 Presence of coronary angioplasty implant and graft; Z98.890 Other specified postprocedural states
CPT/HCPCS: 36415; 80053; 82947; 83735; 84100; 85007; 85027; 87070; 87077; 87186; 87205; 93005; 94640; 94799